=== PATIENT | female | born 1960 | race Caucasian/White ===

== ENCOUNTER 2018-11-21 15:25 | Outpatient (REF) | payer MEDICAID, SELFPAY ==
[2018-11-22 07:42] LABS: Calcium 9.4 mg/dL (8.5-10.1)
[2018-11-22 07:43] LABS: Albumin 3.9 g/dL (3.4-5.0); Alkaline Phosphatase 151 U/L (46-116); BUN 14 mg/dL (7-18); Bilirubin, Total 0.4 mg/dL (0.2-1.0); Estimated GFR 51.38 (mL/min/1.73m2); Glucose 188 mg/dL (70-100); Total Protein 7.6 g/dL (6.4-8.2)
[2018-11-22 07:44] LABS: ALT 40 U/L (12-78); AST 39 U/L (15-37); Anion Gap 7.8 mmol/L (3-11); CO2 30.2 mmol/L (21.0-32.0); Chloride 104 mmol/L (98-107); Potassium 4.5 mmol/L (3.5-5.1); Sodium 142 mmol/L (136-145)
[2018-11-22 07:45] LABS: TSH (W/Ref FT4) 1.58 uIU/mL (0.358-3.74)
[2018-11-22 08:29] LABS: Hemoglobin A1C 7.8 % (4.5-6.2)
== END 2018-11-21 15:45 ==
LOC: NCHCN 15:25
PROVIDERS: PCP Family Medicine; Visit Provider Family Medicine
DX: E11.65 Type 2 diabetes mellitus with hyperglycemia (principal); I10 Essential (primary) hypertension; E03.9 Hypothyroidism, unspecified
CPT/HCPCS: 80053; 83036; 84443

== ENCOUNTER 2019-09-06 21:58 | Outpatient (REF) | payer MEDICAID, SELFPAY ==
[2019-09-06 22:32] LABS: HCT 43.8 % (36.0-46.0); HGB 14.8 g/dL (12.0-15.5); Mean Corp. HGB Concentration 33.8 g/dL (32.0-36.0); Mean Corpuscular Volume 88.7 fL (80-95); Platelet Count 169 x1000/uL (130-400); RBC 4.94 m/cumm (4.00-5.20); RBC Distribution Width 13.6 % (11.7-14.6); White Blood Cell Count 6.77 k/cumm (4.4-10.8)
[2019-09-06 22:57] LABS: BUN 14 mg/dL (7-18); CREATININE 1.04 mg/dL (0.55-1.02); Calcium 9.2 mg/dL (8.5-10.1); Chloride 109 mmol/L (98-107); Estimated GFR 54.62 (mL/min/1.73m2); Glucose 135 mg/dL (74-106); Potassium 4.5 mmol/L (3.5-5.1); Sodium 145 mmol/L (136-145); TSH (W/Ref FT4) 1.12 uIU/mL (0.36-3.74)
== END 2019-09-06 22:18 ==
LOC: NCHCN 21:58
PROVIDERS: PCP Family Medicine; Visit Provider Specialist/Technologist Athletic Trainer
DX: E11.9 Type 2 diabetes mellitus without complications (principal); I10 Essential (primary) hypertension; E03.9 Hypothyroidism, unspecified
CPT/HCPCS: 80048; 85027; 84443

== ENCOUNTER 2020-01-16 08:09 | Outpatient (CLI) | payer MEDICAID, SELFPAY ==
--- NOTE | 2020-01-16 | DI.RAD_ITS ---
EXAM: XR THORACIC SPINE COMPLETE CLINICAL HISTORY: THORACIC BACK PAIN, M54.9. TECHNIQUE: 2D digital imaging was performed. COMPARISON: No exams were available for comparison FINDINGS: BONES: There is no fracture or destructive lesion. The vertebral bodies and posterior elements are un remarkable. DISKS:Prominent endplate osteophytes are seen throughout, eccentric toward the right. There is no si gnificant scoliosis. SOFT TISSUE: Visualized lungs are clear. Heart size appears normal. IMPRESSION: Degenerative disc changes. DATA REPOSITORY: RADIATION DOSE DELIVERED:
--- NOTE | 2020-01-16 | DI.RAD_ITS ---
EXAM: XR SHOULDER LT COMPLETE 2+V INDICATION: LT SHOULDER PAIN, M25.512. COMPARISON: CR RIGHT SHOULDER COMPLETE from 02/14/2013 TECHNIQUE: 2D digital imaging was performed. FINDINGS: Metallic anchors are seen in the humeral head related to previous rotator cuff repair. There is mini mal spurring at the AC joint and undersurface of the acromion. Mild spurring is seen at the glenoid. Humeral head appears normally position. The glenohumeral joint space is well maintained. IMPRESSION: Mild degenerative and postsurgical changes. DATA REPOSITORY: RADIATION DOSE DELIVERED:
== END 2020-01-16 08:29 ==
PROVIDERS: PCP Family Medicine; Visit Provider Family Medicine
DX: M25.512 Pain in left shoulder (principal); M19.012 Primary osteoarthritis, left shoulder; Z98.890 Other specified postprocedural states; M54.6 Pain in thoracic spine; M51.34 Other intervertebral disc degeneration, thoracic region
CPT/HCPCS: 72072; 73030

== ENCOUNTER 2020-03-24 01:05 | Outpatient (CLI) | payer MEDICAID, SELFPAY ==
--- NOTE | 2020-03-24 | DI.RAD_ITS ---
EXAM: XR CERVICAL SPINE COMP 4-5V CLINICAL HISTORY: RADICULOPATHY AFFECTING THE ARM,M54.12 TECHNIQUE: COMPARISON: CR CERV SP.WITH OBL OR FLEX/EXT from 01/07/2014 FINDINGS: Five views were obtained. There is a mild cervical kyphosis. The intervertebral disc spaces appear fairly well maintained with slight loss disc height at C5-6.. There are mild hypertrophic degenerati ve changes of the endplates and facet joints particularly involving the lower cervical region. The n eural foramina appear fairly well maintained as visualized. IMPRESSION: Mild degenerative changes of the cervical spine. No additional significant findings.
== END 2020-03-24 01:25 ==
PROVIDERS: PCP Family Medicine; Visit Provider Family Medicine
DX: M50.122 Cervical disc disorder at C5-C6 level with radiculopathy (principal); M40.202 Unspecified kyphosis, cervical region
CPT/HCPCS: 72050

== ENCOUNTER 2020-12-15 12:01 | Outpatient (REF) | payer MEDICAID, SELFPAY ==
[2020-12-15 16:33] LABS: ALT 35 U/L (14-59); AST 29 U/L (15-37); Albumin 3.9 g/dL (3.4-5.0); Alkaline Phosphatase 149 U/L (46-116); Anion Gap 9.7 mmol/L (3-11); BUN 15 mg/dL (7-18); Bilirubin, Total 0.3 mg/dL (0.2-1.0); CO2 27.3 mmol/L (21.0-32.0); CREATININE 1.2 mg/dL (0.55-1.02); Calcium 8.7 mg/dL (8.5-10.1); Calculated LDL 38 mg/dL (<100); Chloride 108 mmol/L (98-107); Cholesterol 92 mg/dL (<200); Estimated GFR 45.98 (mL/min/1.73m2); Glucose 194 mg/dL (74-106); HDL Cholesterol 36 mg/dL (40-60); Potassium 4.1 mmol/L (3.5-5.1); Sodium 145 mmol/L (136-145); TSH (W/Ref FT4) 1.81 uIU/mL (0.36-3.74); Triglyceride 92 mg/dL (<150)
== END 2020-12-15 12:02 | disposition home or self-care (01) ==
LOC: NCHCN 12:01
PROVIDERS: PCP Family Medicine; Visit Provider Family Medicine
DX: E03.9 Hypothyroidism, unspecified (principal); E11.9 Type 2 diabetes mellitus without complications; I10 Essential (primary) hypertension
CPT/HCPCS: 80053; 80061; 84443

== ENCOUNTER 2021-03-23 16:58 | Outpatient (REF) | payer MEDICAID, SELFPAY ==
[2021-03-23 19:10] LABS: Abs Immature Grans 0.04 10^3/uL (0.0-0.06); Absolute Basophil Count 0.05 10^3/uL (0.0-0.2); Absolute Eosinophil Count 0.28 10^3/uL (0.0-0.7); Absolute Lymphocyte Count 1.35 10^3/uL (1.2-3.4); Absolute Monocyte Count 0.56 10^3/uL (0.1-0.8); Absolute Neutrophil Count 6.92 10^3/uL (1.2-6.7); Basophils % 0.5; HCT 37.4 % (36.0-46.0); HGB 11.5 g/dL (11.2-15.7); Immature Grans % 0.4; Lymphocytes % 14.7; MCHC 30.7 % (32.0-36.0); MCV 87.8 fL (80-95); MPV 10.7 fL (8.0-11.0); Monocytes % 6.1; Neutrophils % 75.3; Nucleated RBC 0 %; Platelet Count 401 10^3/uL (130-400); RBC 4.26 10^6/uL (3.93-5.22); RDW 13.9 % (11.7-14.6); RDW-SD 44.4 fL
[2021-03-23 19:35] LABS: ALT 27 U/L (14-59); AST 30 U/L (15-37); Albumin 3.3 g/dL (3.4-5.0); Alkaline Phosphatase 119 U/L (46-116); Anion Gap 9.8 mmol/L (3-11); BUN 8 mg/dL (7-18); Bilirubin, Total 0.3 mg/dL (0.2-1.0); C-Reactive Protein 1.74 mg/dL (0.0-0.3); CO2 28.2 mmol/L (21.0-32.0); CREATININE 0.9 mg/dL (0.55-1.02); Calcium 9.1 mg/dL (8.5-10.1); Chloride 103 mmol/L (98-107); Glucose 120 mg/dL (74-106); Potassium 3.7 mmol/L (3.5-5.1); Sodium 141 mmol/L (136-145)
[2021-03-23 22:40] LABS: Creatine Kinase 36 U/L (26-192)
== END 2021-03-23 16:59 | disposition home or self-care (01) ==
LOC: LBN 16:58
PROVIDERS: PCP Family Medicine; Visit Provider Family Medicine
DX: A49.01 Methicillin susceptible Staphylococcus aureus infection, unspecified site (principal)
CPT/HCPCS: 80053; 82550; 85025; 86140

== ENCOUNTER 2021-09-10 19:32 | Outpatient (REF) | payer MEDICAID, SELFPAY ==
[2021-09-12 13:26] LABS: COVID-19 RT-PCR UVMMC Result Negative (Negative)
== END 2021-09-10 19:33 | disposition home or self-care (01) ==
LOC: NCHCN 19:32
PROVIDERS: PCP Family Medicine; Visit Provider Family Medicine
DX: Z20.822 Contact with and (suspected) exposure to COVID-19 (principal); R53.83 Other fatigue
CPT/HCPCS: U0003

== ENCOUNTER 2021-10-30 18:30 | Outpatient (REF) | payer MEDICAID, SELFPAY ==
[2021-10-30 18:55] LABS: HCT 39.8 % (36.0-46.0); HGB 12.7 g/dL (11.2-15.7)
[2021-10-30 19:18] LABS: Hemoglobin A1C 6.9 % (<5.7); TSH (W/Ref FT4) 1.98 uIU/mL (0.36-3.74)
== END 2021-10-30 18:31 | disposition home or self-care (01) ==
LOC: NCHCN 18:30
PROVIDERS: PCP Family Medicine; Visit Provider Family Medicine
DX: E11.9 Type 2 diabetes mellitus without complications (principal); I10 Essential (primary) hypertension; Z00.00 Encounter for general adult medical examination without abnormal findings
CPT/HCPCS: 83036; 84443; 85014; 85018

== ENCOUNTER 2021-11-04 18:23 | Outpatient (REF) | payer MEDICAID, SELFPAY ==
[2021-11-04 22:24] LABS: ALT 27 U/L (14-59); AST 24 U/L (15-37); Alkaline Phosphatase 151 U/L (46-116); Anion Gap 7.2 mmol/L (3-11); BUN 15 mg/dL (7-18); Bilirubin, Total 0.3 mg/dL (0.2-1.0); C-Reactive Protein 0.39 mg/dL (0.0-0.3); CO2 27.8 mmol/L (21.0-32.0); CREATININE 1.2 mg/dL (0.55-1.02); Calcium 8.8 mg/dL (8.5-10.1); Chloride 108 mmol/L (98-107); Estimated GFR 45.98 (mL/min/1.73m2); Glucose 101 mg/dL (74-106); Potassium 4.9 mmol/L (3.5-5.1); Sodium 143 mmol/L (136-145); Total Protein 7.4 g/dL (6.4-8.2)
[2021-11-05 17:45] LABS: Rheumatoid Factor <8.6 IU/mL (<12.0)
[2021-11-06 13:40] LABS: ANA Interpretation Positive (Negative); ANA Titer Pattern 1:160 Nucleolar
== END 2021-11-04 18:24 | disposition home or self-care (01) ==
LOC: NCHCN 18:23
PROVIDERS: PCP Family Medicine; Visit Provider Family Medicine
DX: I10 Essential (primary) hypertension (principal); E11.9 Type 2 diabetes mellitus without complications; M19.09 Primary osteoarthritis, other specified site
CPT/HCPCS: 80053; 86038; 86140; 86431

== ENCOUNTER 2021-11-06 00:34 | Outpatient (CLI) | payer MEDICAID, SELFPAY ==
--- NOTE | 2021-11-06 | DI.DEXA_ITS ---
Exam(s) XR DEXA BONE DENSITY W/WO YESENIA EXAM: XR DEXA BONE DENSITY W/WO YESENIA CLINICAL HISTORY: SCREENING FOR OSTEOPOROSIS IN POSTMENOPAUSAL WOMAN,Z78.0 TECHNIQUE: COMPARISON: No exams were available for comparison FINDINGS: DEXA scan was performed according to the usual protocol. Please see the accompanying data sheets. Findings for left hip scanning are T-score -2.5 with left femoral neck T-score -2.5. Findings for lumbar spine scanning are T-score -1.3. IMPRESSION: Measurements are consistent with osteoporosis according to the WHO criteria. The lateral vertebral s canogram shows no evidence of a vertebral compression fracture. RADIATION DOSE DELIVERED: Total DLP
== END 2021-11-06 00:54 ==
PROVIDERS: PCP Family Medicine; Visit Provider Family Medicine
DX: Z13.820 Encounter for screening for osteoporosis (principal); Z78.0 Asymptomatic menopausal state; M81.0 Age-related osteoporosis without current pathological fracture
CPT/HCPCS: 77080

== ENCOUNTER 2021-12-04 13:05 | Outpatient (REF) | payer MEDICAID, SELFPAY ==
[2021-12-08 14:28] LABS: dsDNA Ab, IgG <12.3 IU/mL (<30.0)
[2021-12-08 15:43] LABS: RNP Ab, IgG 1.9 Units (<20.0); SS-A Antibody 2.4 Units (<20.0); SS-B (La) Ab, IgG 0.9 Units (<20.0); Sm (Smith) Ab, IgG 2.5 Units (<20.0)
== END 2021-12-04 13:06 | disposition home or self-care (01) ==
LOC: NCHCN 13:05
PROVIDERS: PCP Family Medicine; Visit Provider Family Medicine
DX: R79.89 Other specified abnormal findings of blood chemistry (principal)
CPT/HCPCS: 86225; 86235

== ENCOUNTER → 2022-05-06 02:20 | Outpatient (CLI) | payer OTHER, MEDICAID, SELFPAY ==
--- NOTE | 2022-05-06 | DI.US_ITS ---
Exam(s) US SOFT TISSUE EXTREMITY EXAM: US SOFT TISSUE EXTREMITY CLINICAL HISTORY: RT KNEE PAIN, ? BAKERS CYST. TECHNIQUE: Ultrasound was performed using standard protocol. COMPARISON: No exams were available for comparison FINDINGS: Sonographic assessment utilizing grayscale and color Doppler imaging was performed and targeted to th e area of clinical concern. There is a tiny 1.4 x 1.4 x 0.8 cm popliteal cyst. IMPRESSION: DATA REPOSITORY:
== END ==
PROVIDERS: PCP Family Medicine; Visit Provider Physician Assistant Medical
DX: M25.561 Pain in right knee (principal)
CPT/HCPCS: 76881

== ENCOUNTER 2022-08-12 11:24 | Outpatient (REF) | payer OTHER, MEDICAID, SELFPAY ==
[2022-08-12 15:53] LABS: HCT 42.9 % (36.0-46.0); MCH 29.4 pg (27.0-33.0); MCHC 32.6 % (32.0-36.0); MCV 90 fL (80-95); MPV 10.8 fL (8.0-11.0); Platelet Count 141 10^3/uL (130-400); RBC 4.77 10^6/uL (3.93-5.22); RDW 14.3 % (11.7-14.6); RDW-SD 46.9 fL; WBC 6.71 10^3/uL (4.4-10.8)
[2022-08-12 16:14] LABS: ALT 33 U/L (14-59); AST 39 U/L (15-37); Albumin 3.8 g/dL (3.4-5.0); Alkaline Phosphatase 102 U/L (46-116); Anion Gap 7.9 mmol/L (3-11); BUN 14 mg/dL (7-18); Bilirubin, Total 0.2 mg/dL (0.2-1.0); CO2 25.1 mmol/L (21.0-32.0); CREATININE 1.2 mg/dL (0.55-1.02); Chloride 108 mmol/L (98-107); Estimated GFR 51.82 (mL/min/1.73m2); Glucose 133 mg/dL (74-106); Potassium 4.2 mmol/L (3.5-5.1); Sodium 141 mmol/L (136-145); Total Protein 7.3 g/dL (6.4-8.2)
== END 2022-08-12 11:25 | disposition home or self-care (01) ==
LOC: NCHCN 11:24
PROVIDERS: PCP Family Medicine; Visit Provider Family Medicine
DX: E11.9 Type 2 diabetes mellitus without complications (principal); F32.9 Major depressive disorder, single episode, unspecified
CPT/HCPCS: 80053; 85027; 84443

== ENCOUNTER 2024-01-03 15:16 | Outpatient (REF) | payer MEDICARE, MEDICAID, SELFPAY ==
[2024-01-03 16:13] LABS: Hemoglobin A1C 10.9 % (<5.7)
[2024-01-03 16:45] LABS: ALT 41 U/L (14-59); AST 32 U/L (15-37); Albumin 3.7 g/dL (3.4-5.0); Alkaline Phosphatase 122 U/L (46-116); BUN 16 mg/dL (7-18); Bilirubin, Total 0.6 mg/dL (0.2-1.0); CREATININE 0.9 mg/dL (0.55-1.02); Chloride 104 mmol/L (98-107); Estimated GFR 72.28 (mL/min/1.73m2); Glucose 355 mg/dL (74-106); Potassium 3.9 mmol/L (3.5-5.1); Sodium 140 mmol/L (136-145); TSH 4.28 uIU/Ml (0.36-3.74); Total Protein 7.1 g/dL (6.4-8.2)
== END 2024-01-03 15:17 | disposition home or self-care (01) ==
LOC: NCHCN 15:16
PROVIDERS: PCP Family Medicine; Visit Provider Family Medicine
DX: E11.9 Type 2 diabetes mellitus without complications (principal); I10 Essential (primary) hypertension; E03.9 Hypothyroidism, unspecified
CPT/HCPCS: 80053; 83036; 84443

== ENCOUNTER 2024-05-31 17:30 | Outpatient (REF) | payer MEDICARE, MEDICAID, SELFPAY ==
--- OUTSIDE RECORDS SUMMARY | 2024-05-31 17:41 | XMS_ITS | Encounter Summary ---
Author Organization [facility] [place] [address] Care Team Providers Care Colorectal Surgeon Name Role Phone Maryuri Evans MD Primary Care Provider [phone] Encounter Details Date Type Department Care Team (Latest Contact Info) Description 11/04/2022 Travel Social History Tobacco Use Types Packs/Day Years Used Date Smoking Tobacco: Never Smokeless Tobacco: Never Alcohol Use Standard Drinks/Week Comments Yes 0 (1 standard drink = 0.6 oz pur e alcohol) social, twice a year Sex and Gender Information Value Date Recorded Sex Assigned at Not on file Gender Identity Not on file Sexual Orientation Not on file documented as of this encounter Plan of Treatment Not on file documented as of this encounter Visit Diagnoses Not on filedocumented in this encounter Care Teams Colorectal Surgeon Relationship Specialty Start Date End Date Maryuri Evans MD [address] [place] [address] PCP - General 09/23/14 documented as of this encounter
--- OUTSIDE RECORDS SUMMARY | 2024-05-31 17:41 | XMS_ITS | Clinical Summary ---
Author Organization [facility] [place] [address] Care Team Providers Care Hand Paint Mixer Name Role Phone Maryuri Evans MD Primary Care Provider [phone] Allergies Active Allergy Reactions Criticality Noted Date Comments Adhesive Rash Low 09/28/2017 Skin Rash Erythromycin Lactobionate Nausea Only High 09/28/2017 Latex Rash Low 09/28/2017 Lisinopril Other (See Comments) Low 09/28/2017 Cough. Metformin Nausea Only High 09/23/2014 Pollen Extracts Other (See Comments) Medium 09/28/2017 Rhinusitus Red Blood Cells Other (See Comments) High 02/09/2021 Antibodies-Difficul t to Crossmatch DO NOT REMOVE Please contact the Blood Bank at [phone] for questions. Trazodone Other (See Comments) Medium 09/23/2014 Hallucination Medications Medication Sig Dispensed Refills Start Date End Date Status glipiZIDE (GLUCOTROL XL) 10 mg Tablet Extended Rel 24 hr TAKE TWO TABLETS BY MOUTH EVERY DAY 3 07/21/2017 Active topiramate (TOPAMAX) 100 mg Tablet TAKE ONE TABLET BY MOUTH TWICE A DAY 3 07/21/2017 Active levothyroxine (SYNTHROID) 50 mcg Tablet Take 50 mcg by mouth nightly. 2017 Active multivitamin (THERAGRAN) Tablet Take 1 tablet by mouth daily. Active calcium carbonate (CALCIUM 500 ORAL) Take by mouth. Active Elizabeth Pen Needle 32 gauge x 32 Needle USE 1 PEN NEEDLE ONCE DAILY AT BEDTIME 10/25/2019 Active hydrOXYzine (VISTARIL) 50 mg Capsule TAKE ONE CAPSULE BY MOUTH TWICE A DAY 01/25/2020 Active folic acid (Folvite) 1 mg Tablet Take by mouth. 08/31/2017 Active gabapentin (Neurontin) 300 mg Capsule TAKE ONE CAPSULE BY MOUTH THREE TIMES A DAY 09/01/2020 Active OneTouch Ultra Blue Test Strip Strip TEST THREE TIMES A DAY 11/30/2020 Ac tive OneTouch Ultra2 Meter Misc TEST DIRECTED 11/29/2020 Active OneTouch Delica Plus Lancet 30 gauge Misc TEST THREE TIMES A DAY 11/28/2020 Ac tive Victoza 2-Terrance 0.6 mg/0.1 mL (18 mg/3 mL) Pen Injector Inject 1.2 mg subcutaneously every morning. 11/29/2020 Active acetaminophen (Tylenol) 500 mg Tablet Take 2 tablets by mouth every 8 hours. 180 tablet 02/18/2021 Active Lantus Solostar U-100 Insulin pen Inject 20 Units subcutaneously nightly. 1 vial 3 02/18/2021 Active Additional Information Patient taking differently: 25 UnitsSubcutaneous NIGHTLY, Reported on 11/04/2022 cyclobenzaprine (Flexeril) 5 mg Tablet Three times daily as needed for muscle spasms 30 tablet 02/18/2021 Active aspirin EC 81 mg Tablet, Delayed Release (E.C.) Take 1 tablet by mouth every 12 hours. Take every 12 hours for 4 weeks 60 tablet 11/09/2021 Active Additional Information Patient taking differently:81 mg OralDAILY, (No instructions reported), Reported on 11/04/2022 cholecalciferol, Vitamin D3, 50 mcg (2,000 unit) Tablet Take 2,000 Units by mouth daily. 10/31/2021 Active alendronate (Fosamax) 70 mg tablet TAKE 1 TABLET ORALLY ONCE A WEEK ON EMPTY STOMACH FULL GLASS WATER UPRIGHT 30 MINUTES 09/01/[address] (Cymbalta) [address] capsule Take 30 mg by mouth 2 times daily. 10/25/2022 Active losartan (Cozaar) 25 mg tablet Take 25 mg by mouth daily. 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 Dr. Correa. DOS: 11/09/2021. 02/10/2022 S/P Left ankle I&D for absce ss and wound dehiscence, 02/08/21 (Dr Quiñones) and 02/10/21 (Dr De La Cruz); 02/12 + 02/14 ( Dr. Capellan) 02/07/2021 H/O insulin dependent diabetes mellitus 01/03/20 H/O: depression 01/02/2021 Hypothyroidism 01/02/2021 h/o chronic headaches 01/02/2021 Closed fracture of shaft of right ulna with known elbow arthrodesis RIGHT 01/02/2021 S/P R elbow fusion on 12/14/17 Correa 2017 Psoriasis 09/23/2014 Resolved Problems Problem Noted Date Diagnosed Date Resolved Date Surgery follow-up 05/26/2021 02/10/2022 Ankle wound, left, sequela 03/04/2021 0 02/10/2022 Closed fracture of left ankl e with routine healing 01/13/2021 02/10/2022 Chronic pain in left shoulder 03/06/2020 02/10/2022 Immunizations Name Administration Dates Next Due Influenza Vaccine, Whole 06/16/2008 Family History Medical History Relation Comments Diabetes Father Heart Disease Father Diabetes Maternal Grandmother Pancreatic Cancer Maternal Grandmother Chronic Obstructive Pulmonary Disease Mother Diabetes Mother Emphysema Mother Relation Status Comments Father Alive Maternal Grandfather Maternal Grandmother Mother Alive Paternal Grandfather Paternal Grandmother Social History Tobacco Use Types Packs/Day Years Used Date Smoking Tobacco: Never Smokeless Tobacco: Never Alcohol Use Standard Drinks/Week Comments Yes 0 (1 standard drink = 0.6 oz pur e alcohol) social, twice a year Sex and Gender Information Value Date Recorded Sex Assigned at Not on file Gender Identity Not on file Sexual Orientation Not on file Last Filed Vital Signs Vital Sign Reading Time Taken Comments Blood Pressure 123/60 05/05/2022 1:13 PM EDT Pulse 80 05/05/2022 1:13 PM EDT Temperature 36.1 ??C (97 ??F) 11/09/2021 5:18 PM EDT Respiratory Rate 16 12/30/2021 1:19 PM EDT Oxygen Saturation 97% 11/09/2021 6:00 PM EDT Inhaled Oxygen Concentration - - Weight 83 kg (183 lb) 11/04/2022 1:35 PM EDT Height 154.9 cm (5' 1) 11/04/2022 1:35 PM EDT Body Mass Index 34.58 11/04/2022 1:35 PM EDT Plan of Treatment Health Maintenance Due Date Last Done Comments CT Colonography 1961 Colonoscopy 1961 Colorectal Cancer Screening 1961 FIT DNA 1961 FIT 1961 Sigmoidoscopy (10 year) with FIT yearly 1961 Sigmoidoscopy 1961 HIV screen 12/15/1979 Hepatitis C Screening 12/15/1979 Lipid Screening 12/15/1979 Tetanus/Diphtheria/Pertussis Vaccines (1 - Tdap) 1980 HPV test 12/15/1991 PAP Smear 12/15/1991 Breast Cancer Share Decision Needed 2001 Breast Cancer screening 2001 Zoster vaccine (1 of 2) 12/15/2011 Advance Directive 2016 Diabetes Screening (HgbA1C o r Glucose) 03/17/2024 03/17/2021, 03/16/2021, 03/15/2021, Additional history exists Covid-19 Vaccine (1 - 2022-2 4 season) 2024 Influenza (Flu) vaccine (1 o f 1 - Influenza standard series) 04/22/2024 06/16/2008 Medical Devices Implanted Type Area Cocktail Waitress Device Identifier Shelf Expiration Date Model / Serial / Lot Graft,Infuse,Bn,L g,Ii,8ml ([id number]) - [id number] Implanted:Qty: 1 on 2017 by Christopher Correa MD at [facility] IMPLANTS Right: Elbow Medtronic - Sofamor Danek - [id number] 12/20/2018 [id number] / / [id number] Screw,Crtx,Stap,4 .5x20mm ([id number]) - [id number] Implanted:Qty: 2 on 2017 by Christopher Correa MD at [facility] IMPLANTS Right: Elbow DO NOT USE SYNTHES - [id number] 214.820 / / Screw,Crtx,Stap,4 .5x22mm ([id number]) - [id number] Implanted:Qty: 3 on 2017 by Christopher Correa MD at [facility] IMPLANTS Right: Elbow DO NOT USE SYNTHES - [id number] 214.822 / / Screw,Crtx,Stap,4 .5x24mm ([id number]) - [id number] Implanted:Qty: 1 on 2017 by Christopher Correa MD at [facility] IMPLANTS Right: Elbow DO NOT USE SYNTHES - [id number] 214.824 / / Plate,Lcp,Nrw,10h ,4.9p099ef ([id number]) - [id number] Implanted:Qty: 1 on 2017 by Christopher Correa MD at [facility] IMPLANTS Right: Elbow DO NOT USE SYNTHES - [id number] 224.601 / / Parcel Post Officer Microvascular 2.5mm 2 Ended Red Benzie ([id number]) - [id number] Implanted:Qty: 1 on 03/13/2021 by Aydee Franklin MD at [facility] IMPLANTS Left: Leg RAUSCH [employer] - [facility] [id number] / / [id number] Ring Microvascular 2mm Anastomotic Non Absorbable Ss Benzie ([id number]) - [id number] Implanted:Qty: 1 on 03/13/2021 by Aydee Franklin MD at [facility] IMPLANTS Left: Leg [employer] - RAUSCH [facility] 01/01/2025 [id number] / / [id number] Kit Graft Bone Sponge 2.8cc Bmp Syringe Sm Granules Infuse ([id number]) (Autoreq) - [id number] Implanted:Qty: 1 on 11/09/2021 by Christopher Correa MD at [facility] IMPLANTS Right: Arm [employer] - [employer] [id number] / / Plate 2.7x94mm 10 Hole Comp Lck Ss Lcp ([id number]) (Autoreq) - [id number] Implanted:Qty: 1 on 11/09/2021 by Christopher Correa MD at [facility] IMPLANTS Right: Arm [place] - ReadOz GALDINO 247.374 / / Screw 2.7x16mm Lck Ss Lcp ([id number]) (Autoreq) - [id number] Implanted:Qty: 2 on 11/09/2021 by Christopher Correa MD at [facility] IMPLANTS Right: Arm [place] - [employer] GALDINO 202.216 / / Screw 2.7x18mm Lck Ss Lcp ([id number]) (Autoreq) - [id number] Implanted:Qty: 2 on 11/09/2021 by Christopher Correa MD at [facility] IMPLANTS Right: Jan Zyncd GALDINO 202.218 / / Screw 2.7x16mm Mansoor Ss Lcp ([id number]) (Autoreq) - [id number] Implanted:Qty: 2 on 11/09/2021 by Christopher Correa MD at [facility] IMPLANTS Right: [facility] Zyncd GALDINO 202.876 / / Screw 2.7x18mm Mansoor Ss Lcp ([id number]) (Autoreq) - [id number] Implanted:Qty: 1 on 11/09/2021 by Christopher Correa MD at [facility] IMPLANTS Right: [facility] Zyncd GALDINO 202.878 / / Readigraft Implanted:Qty: 1 on 11/09/2021 by Christopher Correa MD at [facility] IMPLANTS Right: [facility] 09/25/2025 [id number] / [id number] / Explanted Type Area Cocktail Waitress Device Identifier Shelf Expiration Date Model / Serial / Lot Screw,Crtx,St ap,4.5x18mm ([id number]) - [id number] Implanted:Qty : 2 on 2017 by Christopher Correa MD at [facility] Explanted:Qty : 2 on 11/09/2021 at [facility] IMPLANTS Right: Elbow DO NOT USE SYNTHES - [id number] 214.818 / / Procedures Procedure Name Priority Date/Time Associated Diagnosis Comments BASIC METABOLIC PANEL Routine 03/17/2021 2:40 AM EDT from Last 3 Months or Most Recently Relevant to Health Maintenance Results * (ABNORMAL) Basic Metabolic Panel (non-fasting) (03/17/2021 2:40 AM EDT) Glucose 154 65 - 199 mg/dL [facility] Comment:Diabetes: >=200 mg/d L plus symptoms Blood Urea Nitrogen 11 8 - 18 mg/dL [facility] Creatinine 0.68(L) 0.70 - 1.20 mg/dL [facility] Sodium 141 135 - 145 mmol/L [facility] Potassium 3.9 3.5 - 5.0 mmol/L [facility] Comment: Please note: ??Patients with WBC >100,000 may have falsely elevated Potassium levels. ??For accurate Potassium quantification in these patients send serum separator tube (gold top) for subsequent determinations. ??Contact the Clinical Chemistry Laboratory if there are any questions. Chloride 106 98 - 107 mmol/L [facility] Carbon Dioxide 26 22 - 31 mmol/L [facility] Anion Gap 9 5 - 15 mmol/L [facility] Calcium 8.5 8.5 - 10.5 mg/dL [facility] Est Glomerular Filtration Rate 96 >=60 mL/min/1. 73 m?? [facility] Comment: This patient? s estimated glomerular filtration rate (eGFR) is between 96 mL/min/1.73 m2 (patients with less muscle mass) and 111 mL/min/1.73 m2 (patients with more muscle mass) as determined by the CKD-EPI equation. Assessment of eGFR is not appropriate when creatinine concentrations are rapidly changing. For clinical decisions where creatinine clearance will affect therapy, a 24-hour urine creatinine clearance may be advised. Assignment of CKD stage 1 - 5 for patients with an eGFR near the transition point between stages may be based on clinical assessment of muscle mass and symptoms in addition to eGFR. Blood 03/17/2021 2:40 AM EDT 03/17/2021 2:42 AM EDT Narrative Resulting Agency Comment Spec In Lab Aydee Franklin MD CHEMISTRY ORDERABLES [facility] [place] [address] from Last 3 Months or Most Recently Relevant to Health Maintenance Advance Directives * Attempt Cardiopulmonary Resuscitation - Inpatient (Latest Code Status on File) Date Activated Date Inactivated Comments 03/13/2021 4:28 PM 03/17/2021 7:02 PM Question Answer Comments Code Status decision made by: Patient * Full Code Date Activated Date Inactivated Comments 02/18/2021 6:01 PM 03/13/2021 6:59 AM Question Answer Comments Does patient have capacity to make decision: Yes * Attempt Cardiopulmonary Resuscitation - Inpatient Date Activated Date Inactivated Comments 02/07/2021 8:01 PM 02/18/2021 6:01 PM Question Answer Comments Code Status decision made by: Patient * Full Code Date Activated Date Inactivated Comments 2017 6:37 AM 2017 5:49 PM Question Answer Comments Does patient have capacity to make decision: Yes Care Teams Hand Paint Mixer Relationship Specialty Start Date End Date Maryuri Evans MD [address] [place] [address] PCP - General 09/23/14
--- OUTSIDE RECORDS SUMMARY | 2024-05-31 17:41 | XMS_ITS | Encounter Summary ---
Author Organization [place] [address] Care Team Providers Care Ways Operator Name Role Phone Maryuri Evans MD Primary Care Provider [phone] Encounter Details Date Type Department Care Team (Latest Contact Info) Description 09/09/2022 Travel Social History Tobacco Use Types Packs/Day [...] on filedocumented in this encounter Care Teams Ways Operator Relationship Specialty Start Date End Date Maryuri Evans MD [address] [place] [address] PCP - General 09/23/14 documented as of this encounter
--- OUTSIDE RECORDS SUMMARY | 2024-05-31 17:41 | XMS_ITS | Encounter Summary ---
Author Organization [facility] [place] [address] Care Team Providers Care Automobile Accessories Installer Name Role Phone Maryuri Evans MD Primary Care Provider [phone] Reason for Visit * Diagnostic Test (Routine) - Closed Specialty Diagnoses / Procedures Referred By Contac t Referred To Contact Neurology Diagnoses Ulnar neuritis, right Dorina Campbell APRN [facility] [place] [address] [facility] [address] [place] [address] Referral ID Status Reason Start Date Expiration Date V isits Requested Visits Authorized [id number] Closed Test Only 02/10/2022 02/10/2023 1 1 Encounter Details Date Type Department Care Team (Latest Contact Info) Description 09/09/2022 1:00 PM EST [place] [address] Twin Vick MD [facility] [place] [address] H/O elbow surgery, 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 Dr. Correa. DOS: 11/09/2021. ; Dislocation of right elbow, subsequent encounter Social History Tobacco Use Types Packs/Day Years Used Date Smoking Tobacco: Never Smokeless Tobacco: Never Alcohol Use Standard Drinks/Week Comments Yes 0 (1 standard drink = 0.6 oz pur e alcohol) social, twice a year Sex and Gender Information Value Date Recorded Sex Assigned at Not on file Gender Identity Not on file Sexual Orientation Not on file documented as of this encounter Progress Notes * Twin Vick MD - 09/09/2022 1:00 PM EST Jesenia Méndez referred for EDX studies by Dorina Campbell APRN [facility] [address] [place] [address] to look for evidence of right ulnar neuropathy. Report scanned into ED. The results are c/w a right ulnar neuropathy at there elbow. Mild median nerve compression at the wrists. * Sheng Vidales MD - 09/09/2022 1:00 PM EST Jesenia Méndez is a patient of Maryuri Evans MD referred by Dorina Campbell APRN for electrodiagnostic studies for Rt upper extremity to look for evidence of cubital tunnel syndrome . The complete findings will be reported elsewhere (see scanned documents). Briefly, patient reports numbness and tingling in the right hand mentions happened since the procedure. Primarily involved last 2 fingers but mentions thumb is also involved at times. Mentions the last 4th finger is doing a little better and now its mostly the last finger. Mentions sx exacerbate attimes but doesn't know triggers. On exam, she has good strength on the ADM and APB, and limited movement at the elbow and shoulder. On sensory she reports mildly decreased senastion on thenar eminence but normal on hypothenar. On NCS EMG, there is slowing of the ulnar motor velocity across the elbow and low sensory amplitudeand velocity compared to the left side. Median sensory amplitude is mildly reduced on the right with normal motor responses. On needle emg there is presence of active and chronic neurogenic changes on the FDI but normal on ABP and FCU. The above findings are suggestive of ulnar neuropathy at the right likely at the level of elbow. Additionally there is presence of mild R>L median neuropathy bilaterally. 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 Dr. Correa. DOS: 11/09/2021. Personal history of surgery to other organs Dislocation of right elbow, subsequent encounter documented in this encounter Care Teams Automobile Accessories Installer Relationship Specialty Start Date End Date Maryuri Evans MD [address] [place] [id number] PCP - General 09/23/14 documented as of this encounter
--- OUTSIDE RECORDS SUMMARY | 2024-05-31 17:41 | XMS_ITS | Encounter Summary ---
[facility] [place] [address] Care Team Providers Care Seasonal Delivery Driver Name Role Phone Maryuri Evans MD Primary Care Provider [phone] Reason for Referral * Occupational Therapy (Routine) - Closed Specialty Diagnoses / Procedures Referred By Conthyun t Referred To Contact Occupational Therapy Diagnoses Ulnar neuritis, right Dorina Campbell APRN [facility] [place] [address] Referral ID Status Reason Start Date Expiration Date V isits Requested Visits Authorized [id number] Closed Evaluate and Treat 05/05/2022 11/01/2022 12 12 Reason for Visit * Reason Comments Right Elbow Fracture Encounter Details Date Type Department Care Team (Late st Contact Info) Description 05/05/2022 1:40 PM EDT Office [place] [phone] Dorina Campbell HUMAN CAPITAL ANALYST [facility] [place] [address] Ulnar neuritis, right (Primary Dx); Closed fracture of shaft of right ulna with routine healing, unspecified fracture morphology, subsequent encounter Social History Tobacco Use Types [...] on file documented as of this encounter Last Filed Vital Signs Vital Sign Reading Time Taken Comments Blood Pressure 123/60 05/05/2022 1:13 PM EDT Pulse 80 05/05/2022 1:13 PM EDT Temperature - - Respiratory Rate - - Oxygen Saturation - - Inhaled Oxygen Concentration - - Weight 78.9 kg (174 lb) 05/05/2022 1:13 PM EDT Height 154.9 cm (5' 1) 05/05/2022 1:13 PM EDT Body Mass Index 32.88 05/05/2022 1:13 PM EDT documented in this encounter Progress Notes * Dorina Campbell, HUMAN CAPITAL ANALYST - 05/05/2022 1:40 PM EDT Surgical Date: 11/09/2021 ?? Surgeon: * Christopher Correa MD - ?? Procedure(s) : REPAIR NONUNION OR MALUNION, RADIUS OR ULNA ,W/ AUTOGRAFT (Right) MODIFIER LARGE FRAGMENT SYSTEM SYNTHES (Right) MODIFIER LOCKING SMALL FRAGMENT SYNTHES (Right) REMOVAL OF IMPLANT, DEEP, FOREARM (Right) ?? CHIEF COMPLAINT: 6 months S/P above procedure HISTORY OF PRESENT ILLNESS: Ms. Méndez a 61 y.o. year old female comes into clinic today for appointment ~ 6 months s/p the above procedures. Jesenia is doing well at 6 months post op above surgical procedure for pain. Yet, The ulnar nerve symptoms have persisted. She has not been able to make her neurology consult appointment yet (missed calls) and no formal OT for nerve glides. The HEELBO did nothing. Reports problems with right posterior knee pain. Seeing PCP with duplex US ordered for tomorrow. Patient's medications, allergies, past medical, surgical, social and family histories were reviewedand updated as appropriate. ROS: Denies fever, chills, nausea, vomiting, vision change, shortness of breath, chest pain, visionchanges, headaches, bowel or bladder problem, ear, nose, sinus problem, neuro or psychiatric, or endocrine disorder not addressed above. PHYSICAL EXAMINATION: Vitals: 05/05/22 1313 BP: 123/60 Pulse: 80 Weight: 78.9 kg (174 lb) Height: 154.9 cm (5' 1) Body mass index is 32.88 kg/m??. 61 year old Female in NAD. Non-toxic appearing. Right elbow and forearm exam: Wound Inspection: Surgical incision is well healed no asael-incisional erythema or evidence of infection. Neuro: No change in + tinel's at the ulnar groove of the elbow that reproduces tingling in the 4/5 finger. + motor intact in the hand with 5/5 wrist extension, interosseous and intrinsics intact, thumb opposes to the 5th finger. Mild atrophy of the hypothenar eminence of the hand. Axillary (sensoryand motor intact), antebrachial cutaneous intact, Radial, ulna + tinel's and tingling in the 4/5 fingers, median nerve neuro-motor intact. ROM: The elbow is fused with no active/or passive ROM. There is no pain at the proximal ulna Skin is warm, dry and well perfused. Distal radius pulse 2+. Capillary refill is brisk. The forearm compartments are soft. No pain with passive ROM of the hand or wrist. No skin color changes and no diaphoresis. 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 ASSESSMENT: 61 year old Female who is now 6 months status post op for above surgical procedure. Jesenia is doing well post op in regards to the repair of the fracture non-union. No appreciable pain at the fracture site. No hardware complications. + incorporating bone graft. The is not change in the numbing pain and paraesthesias of the 4/5 ulnar nerve distribution with no motor weakness. PLAN: I reviewed my findings in the office today with both x-rays and clinical exam. At this time, I once again recommend obtaining a neurology consult to assess for ulnar nerve compression. I am going to have our secretarial staff try and help Jesenia schedule her appointment as Neurology as been trying to contact her for an appointment for any EMG/NCS. I also recommend seeing an OT for nerve glides. HEELBO not very helpful for ulnar nerve symptoms. We will plan on seeing Jesenia in about 6 monthswith x-rays. I have already ordered this as a future order in the computer. F/u as above with x-rays I have already ordered this as a future order in the computer. Sooner prn. documented in this encounter Plan of Treatment Scheduled Referrals Name Type Priority Associated Diagnoses Order Schedule Referral to Occupational Therapy Outpatient Referral Routine Ulnar neuritis, right Ordered: 05/05/2022 documented as of this encounter Results * XR Forearm Right (Generic) (11/04/2022 12:50 PM EDT) Anatomical Region Laterality Modality Forearm Right Digital Radiogra phy Impressions 11/04/2022 2:19 PM EDT Stable exam. No hardware complication. Thank you for letting us participate in the care of this patient. ??If you are a health care provider and have any questions regarding this report, please contact the number below. ??For patients who have questions please contact the health transition of care specialist that requested your imaging first. ? Electronically signed by: KENDRA RENEE MD, [facility] ([phone]), at 11/04/2022 2:19 PM Narrative 11/04/2022 2:19 PM EDT EXAMINATION: XR FOREARM RIGHT (GENERIC) CLINICAL HISTORY: proximal ulna fracture revision ORIF ? healing ? change in ORIF TECHNIQUE: 2 views RIGHT forearm COMPARISON: Forearm radiograph 05/05/2022 FINDINGS: Status post elbow arthrodesis and proximal ulnar plate and screw fixation. Hardware is intact and in stable positioning. Ulnar fracture lines are not visualized, with the region partially obscured by the hardware. Alignment is stable. No new fracture identified. Bones are diffusely demineralized. Soft tissues are unremarkable. Procedure Note Kendra Renee MD - 11/04/2022 EXAMINATION: XR FOREARM RIGHT (GENERIC) CLINICAL HISTORY: proximal ulna fracture revision ORIF ? healing ? change in ORIF TECHNIQUE: 2 views RIGHT forearm COMPARISON: Forearm radiograph 05/05/2022 FINDINGS: Status post elbow arthrodesis and proximal ulnar plate and screwfixation. Hardware is intact and in stable positioning. Ulnar fracture lines arenot visualized, with the region partially obscured by the hardware. Alignmentis stable. No new fracture identified. Bones are diffusely demineralized.Soft tissues are unremarkable. IMPRESSION Stable exam. No hardware complication. Thank you for letting us participate in the care of this patient. If youare a health care provider and have any questions regarding this report,please contact the number below. For patients who have questions please contactthe health transition of care specialist that requested your imaging first. Electronically signed by: KENDRA RENEE MD, [facility]([phone]), at 11/04/2022 2:19 PM Dorina Campbell HUMAN CAPITAL ANALYST IMG DX ORDERABLES documented in this encounter Visit Diagnoses Diagnosis Ulnar neuritis, right- Primary Closed fracture of shaft of right ulna with routine healing, unspecified fracture morphology, subsequent encounter Closed fracture of shaft of right ulna with routine healing, unspecified fracture morphology, subsequent encounter documented in this encounter Care Teams Seasonal Delivery Driver Relationship Specialty Start Date End Date Maryuri Evans MD [address] [place] [address] PCP - General 09/23/14 documented as of this encounter
--- OUTSIDE RECORDS SUMMARY | 2024-05-31 17:41 | XMS_ITS | Encounter Summary ---
Author Organization [facility] Address [facility] [place] [address] Care Team Providers Care Hall Supervisor Name Role Phone Maryuri Evans MD Primary Care Provider [phone] Encounter Details Date Type Department Care Team (Late st Contact Info) Description 09/09/2022 Notes [place] [address] Sabrina Capellan MD [facility] [place] [address] Social History Tobacco Use Types Packs/Day Years [...] as of this encounter Progress Notes * Cecilia Meehan LPN - 09/09/2022 3:20 PM EST Jesenia arrived to clinic today without an appointment due to an injury to her left ankle that has previously had surgery by Dr. Capellan. Jesenia states that she was in her driveway on the ice and had slipped and twisted her ankle catching her toes yesterday. She states there is some swelling that has not resolved. She is currently taking ibuprofen and Tylenol, alternating, as well as icing and elevating her leg above the level of her heart. Jesenia's ankle was slightly swollen, with 1+ edema. I did encourage Jesenia to use some compressive wrap, continue to ice and elevate, and to continue her previous medication regimen that she had started. I did encourage Jesenia to see her PCP or be evaluated at an urgent care. I did let her know that if there was an injury, I would like her to receive treatment for that and we would be happy to follow-up if there is an orthopedic injury. Reviewed case with Gracie Gamez PA-C. Jesenia had no further questions at this time and stated she would seek treatmentas we had discussed. documented in this encounter Plan of Treatment Not on file documented as of this encounter Visit Diagnoses Not on filedocumented in this encounter Care Teams Hall Supervisor Relationship Specialty Start Date End Date Maryuri Evans MD [address] [place] [address] PCP - General 09/23/14 documented as of this encounter
--- OUTSIDE RECORDS SUMMARY | 2024-05-31 17:41 | XMS_ITS | Encounter Summary ---
Author Organization Replaced By [facility] Address [facility] [place] [address] Care Team Providers Care Projection Printer Name Role Phone Maryuri Evans MD Primary Care Provider [phone] Encounter Details Date Type Department Care Team (Latest Contact Info) Description 11/04/2022 12:26 PM EDT - 11/04/2022 11:59 PM EDT Hospital Encounter XRay at [address] [place] [address] Dorina Campbell APRN [facility] ORTHOPAEDIC [place] [address] Closed fracture of shaft of right ulna with routine healing, unspecified fracture morphology, subsequent encounter Discharge Disposition: Home Social History Tobacco Use Types Packs/Day Years Used Date Smoking Tobacco: Never Smokeless Tobacco: Never Alcohol Use Standard Drinks/Week Comments Yes 0 (1 standard drink = 0.6 oz pur e alcohol) social, twice a year Sex and Gender Information Value Date Recorded Sex Assigned at Not on file Gender Identity Not on file Sexual Orientation Not on file documented as of this encounter Medications at Time of Discharge Medication Sig Dispensed Refills Start Date End Date alendronate (Fosamax) 70 mg tablet TAKE 1 TABLET ORALLY ONCE A WEEK ON EMPTY STOMACH FULL GLASS WATER UPRIGHT 30 MINUTES 09/01/[address] (Cymbalta) [address] capsule Take 30 mg by mouth 2 times daily. 10/25/2022 losartan (Cozaar) 25 mg tablet Take 25 mg by mouth daily. 10/20/2022 cholecalciferol, Vitamin D3, 50 mcg (2,000 unit) Tablet Take 2,000 Units by mouth daily. 10/31/2021 aspirin EC 81 mg Tablet, Delayed Release (E.C.) Take 1 tablet by mouth every 12 hours. Take every 12 hours for 4 weeks 60 tablet 11/09/2021 acetaminophen (Tylenol) 500 mg Tablet Take 2 tablets by mouth every 8 hours. 180 tablet 02/18/2021 Lantus Solostar U-100 Insulin pen Inject 20 Units subcutaneously nightly. 1 vial 3 02/18/2021 cyclobenzaprine (Flexeril) 5 mg Tablet Three times daily as needed for muscle spasms 30 tablet 02/18/2021 OneTouch Ultra Blue Test Strip Strip TEST THREE TIMES A DAY 11/30/2020 OneTouch Ultra2 Meter Misc TEST DIRECTED 11/29/2020 OneTouch Delica Plus Lancet 30 gauge Misc TEST THREE TIMES A DAY 11/28/2020 Victoza 2-Terrance 0.6 mg/0.1 mL (18 mg/3 mL) Pen Injector Inject 1.2 mg subcutaneously every morning. 11/29/2020 folic acid (Folvite) 1 mg Tablet Take by mouth. 08/31/2017 gabapentin (Neurontin) 300 mg Capsule TAKE ONE CAPSULE BY MOUTH THREE TIMES A DAY 09/01/2020 Elizabeth Pen Needle 32 gauge x 5/32 Needle USE 1 PEN NEEDLE ONCE DAILY AT BEDTIME 10/25/2019 hydrOXYzine (VISTARIL) 50 mg Capsule TAKE ONE CAPSULE BY MOUTH TWICE A DAY 01/25/2020 multivitamin (THERAGRAN) Tablet Take 1 tablet by mouth daily. calcium carbonate (CALCIUM 500 ORAL) Take by mouth. levothyroxine (SYNTHROID) 50 mcg Tablet Take 50 mcg by mouth nightly. 2017 glipiZIDE (GLUCOTROL XL) 10 mg Tablet Extended Rel 24 hr TAKE TWO TABLETS BY MOUTH EVERY DAY 3 07/21/2017 topiramate (TOPAMAX) 100 mg Tablet TAKE ONE TABLET BY MOUTH TWICE A DAY 3 07/21/2017 documented as of this encounter Plan of Treatment Not on file documented as of this encounter Procedures Procedure Name Priority Date/Time Associated Diagnosis Comments XR FOREARM RIGHT Routine 11/04/2022 12:5 0 PM EDT Closed fracture of shaft of right ulna with routine healing, unspecified fracture morphology, subsequent encounter documented in this encounter Results * XR Forearm Right [...] who have questions please contact the health day care assistant that requested your imaging first. ? Electronically signed by: KENDRA RENEE MD, [facility] ([phone]), at 11/04/2022 2:19 PM Narrative 11/04/2022 2:19 [...] patients who have questions please contactthe health day care assistant that requested your imaging first. Electronically signed by: KENDRA RENEE MD, [facility]([phone]), at 11/04/2022 2:19 PM Dorina Campbell COOKER [employer]A IMG DX ORDERABLES documented in this encounter Visit Diagnoses Diagnosis Closed fracture of shaft of right ulna with routine healing, unspecified fracture morphology, subsequent encounter documented in this encounter Care Teams Projection Printer Relationship Specialty Start Date End Date Maryuri Evans MD [address] [place] [address] PCP - General 09/23/14 documented as of this encounter
--- OUTSIDE RECORDS SUMMARY | 2024-05-31 17:41 | XMS_ITS | Encounter Summary ---
Author Organization Replaced By [facility] [place] [address] Care Team Providers Care Manager File Name Role Phone Maryuri Evans MD Primary Care Provider [phone] Encounter Details Date Type Department Care Team (Late st Contact Info) Description 09/09/2022 External [place] [address] Twin Vick MD [facility] [place] [address] Social History Tobacco Use Types Packs/Day Years [...] Procedure Name Priority Date/Time Associated Diagnosis Comments EMG WITH F-WAVE Routine 09/09/2022 documented in this encounter Results * EMG WITH F-WAVE (09/09/2022) Twin Vick MD NEUROLOGY ORDERABLES documented in this encounter Visit Diagnoses Not on filedocumented in this encounter Care Teams Manager File Relationship Specialty Start Date End Date Maryuri Evans MD [address] [place] [phone] PCP - General 09/23/14 documented as of this encounter
--- OUTSIDE RECORDS SUMMARY | 2024-05-31 17:41 | XMS_ITS | Encounter Summary ---
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 Dr. Correa. DOS: 11/09/2021. Discharge Disposition: Home Social History Tobacco Use [...] Sig Dispensed Refills Start Date End Date cholecalciferol, Vitamin D3, 50 mcg (2,000 unit) [...] BY MOUTH TWICE A DAY 3 07/21/2017 omeprazole (PriLOSEC) 40 mg Capsule, Delayed Release(E.C.) Take 40 mg by mouth daily. 01/04/2022 11/04/2022 metoclopramide (REGLAN) 5 mg Tablet TAKE ONE TABLET BY MOUTH EVERY 6 HOURS NEEDED FOR NAUSEA AND VOMITING 04/08/2021 11/04/2022 buPROPion XL (Wellbutrin XL) 150 mg Tablet Extended Release 24 hr Take 150 mg by mouth every morning. 11/04/2022 sertraline (ZOLOFT) 100 mg Tablet Take 2 tablets by mouth daily. 3 02/09/2018 11/04/2022 losartan (COZAAR) 50 mg Tablet Take 25 mg by mouth every evening. 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 Dr. Correa. DOS: 11/09/2021. documented in this encounter Results * XR Forearm Right (Generic) (05/05/2022 12:16 PM EDT) Anatomical Region Laterality Modality Forearm Right Digital Radiogra phy Impressions 05/05/2022 3:02 PM EDT Progressive healing of hardware reduced right ulna diaphysis fracture without radiographic finding of complication. Thank you for letting us participate in the care of this patient. ??If you are a health care provider and have any questions regarding this report, please contact the number below. ??For patients who have questions please contact the health day care aide that requested your imaging first. ? Narrative 05/05/2022 3:02 PM EDT EXAMINATION: XR FOREARM RIGHT (GENERIC) CLINICAL HISTORY: right proximal radius and ulna revision surgery for non-union ? healing ORIF with bone graft TECHNIQUE: 2 views RIGHT forearm COMPARISON: Radiographs November 09, December 30 and February 10, 2022 FINDINGS: Elbow arthrodesis with plate and screws as well as proximal ulna fracture reduction with plate and screws has intact hardware without adjacent lucency, change in position or bone malalignment. Increased callous volume and maturity is seen at the ulnar fracture with decreased conspicuity of the fracture line. 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 Diffuse bone demineralization and remodeling of the radial head are unchanged. No focal soft tissue abnormality. Procedure Note An Vargas MD - 05/05/2022 EXAMINATION: XR FOREARM RIGHT (GENERIC) CLINICAL HISTORY: right proximal radius and ulna revision surgery fornon-union ? healing ORIF with bone graft TECHNIQUE: 2 views RIGHT forearm COMPARISON: Radiographs November 09December 30 and February 10, 2022 FINDINGS: Elbow arthrodesis with plate and screws as well as proximal ulnafracture reduction with plate and screws has intact hardware without adjacentlucency, change in position or bone malalignment. Increased callous volume andmaturity is seen at the ulnar fracture with decreased conspicuity of the fractureline. 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 Diffuse bone demineralization and remodeling of the radial head areunchanged. No focal soft tissue abnormality. IMPRESSION Progressive healing of hardware reduced right ulna diaphysis fracturewithout radiographic finding of complication. Thank you for letting us participate in the care of this patient. If youare a health care provider and have any questions regarding this report,please contact the number below. For patients who have questions please contactthe health day care aide that requested your imaging first. 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 Dr. Correa. DOS: 11/09/2021. Personal history of surgery to other organs documented in this encounter Care Teams Sueding And Buffing Machine Operator Relationship Specialty Start Date End Date Maryuri Evans MD [address] [place] [address] PCP - General 09/23/14 documented as of this encounter
--- OUTSIDE RECORDS SUMMARY | 2024-05-31 17:41 | XMS_ITS | Encounter Summary ---
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 Dr. Correa. DOS: 11/09/2021. ; Ulnar neuritis, right; Median nerve compression Social History Tobacco Use Types Packs/Day Years [...] Sign Reading Time Taken Comments Blood Pressure - - Pulse - - Temperature - - Respiratory Rate - - Oxygen Saturation - - Inhaled Oxygen Concentration - - Weight 83 kg (183 lb) 11/04/2022 1:35 PM EDT Height 154.9 cm (5' 1) 11/04/2022 1:35 PM EDT Body Mass Index 34.58 11/04/2022 1:35 PM EDT documented in this encounter Progress Notes * Dorina Campbell, FLOW SPECIALIST - 11/04/2022 1:40 PM EDT Surgical Date: 11/09/2021 ?? Surgeon: * Christopher Correa MD - ?? Procedure(s) : REPAIR NONUNION OR MALUNION, RADIUS OR ULNA ,W/ AUTOGRAFT (Right) MODIFIER LARGE FRAGMENT SYSTEM SYNTHES (Right) MODIFIER LOCKING SMALL FRAGMENT SYNTHES (Right) REMOVAL OF IMPLANT, DEEP, FOREARM (Right) ?? CHIEF COMPLAINT: 12 months S/P above procedure HISTORY OF PRESENT ILLNESS: Ms. Méndez a 61 y.o. year old female comes into clinic today for appointment ~ 12 months s/p the above procedures. Jesenia is doing iok. There is mild pain yet not significantly interfering with her lifestyle. Mild tingling in the hand with recent EMG/NCS with mild median and ulnar nerve compression. HEELBO compression did nothing for the tingling in the hand. She willoccasionally wear a wrist brace for CTS. Patient's medications, allergies, past medical, surgical, social and family histories were reviewedand updated as appropriate. ROS: Denies fever, chills, nausea, vomiting, vision change, shortness of breath, chest pain, visionchanges, headaches, bowel or bladder problem, ear, nose, sinus problem, neuro or psychiatric, or endocrine disorder not addressed above. PHYSICAL EXAMINATION: Vitals: 11/04/22 1335 Weight: 83 kg (183 lb) Height: 154.9 cm (5' 1) Body mass index is 34.58 kg/m??. 61 year old Female in NAD. Non-toxic appearing. Right elbow and forearm exam: Wound Inspection: Surgical incision is well healed no asael-incisional erythema or evidence of infection. Neuro: Mild + tinel's at the ulnar groove of the elbow that reproduces tingling in the 4/5 finger and mild tinel's at the wrist with median nerve tingling with no motor weakness.. + motor intact in the hand with 5/5 wrist extension, interosseous and intrinsics intact, thumb opposes to the 5th finger. There is mild atrophy of the hypothenar eminence of the hand. Axillary (sensory and motor intact), antebrachial cutaneous intact, Radial, ulna [...] non-union with ongoing incorporating bone graft, there ongoing increased bridging callous as compared to previous x-ray. X-rays reviewed today in the office with Dr. Correa. ASSESSMENT: 61 year old Female who is now 12 months status post op for above surgical procedure. Jesenia is doing well status post most recent surgery. No hardware complications and ongoing+ incorporating bone graft. Ongoing hand numbness with EMG/NCS with both ulnar and median nerve compression. PLAN: I reviewed my findings in the office today with both x-rays and clinical exam. At this time, Ok to advance activity as pain and function allow. No restrictions. Per Dr. Correa. No further follow up appointments necessary unless she develops any problems or concerns. Jesenia is not interested in any type of surgical intervention for ulnar and median nerve compression. Ok to use HEELBO PRN for the elbow and carpal tunnel brace for the wrist. If she would like to consider surgery for compressiveneuropathies, we would recommend consult with Dr. Marino as he can approach both the elbow and wrist conditions. Pt agrees, questions solicited/answered, will return as scheduled and as needed for concerns or questions. Pt understands they may also call us prn for above. F/u PRN. Sooner as necessary. 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 Dr. Correa. DOS: 11/09/2021. Personal history of surgery to other organs Ulnar neuritis, right Median nerve compression Carpal tunnel syndrome documented in this encounter Care Teams Supervisory Examiner Relationship Specialty Start Date End Date Maryuri Evans MD [address] [place] [address] PCP - General 09/23/14 documented as of this encounter
--- OUTSIDE RECORDS SUMMARY | 2024-05-31 17:42 | XMS_ITS | Encounter Summary ---
Author Organization [facility] Address [facility] [place] [address] Care Team Providers Care Political Theory Professor Name Role Phone Maryuri Evans MD Primary Care Provider [phone] Reason for Visit * Reason Comments Follow Up Surgery Encounter Details Date Type Department Care Team (Late st Contact Info) Description 03/24/2021 10:20 AM EDT Office [place] [address] Anabell Delarosa [facility] [place] [address] Surgery follow-up Social History Tobacco Use Types Packs/Day Years Used Date Smoking Tobacco: Never Smokeless Tobacco: Never Alcohol Use Standard Drinks/Week Comments No 0 (1 standard drink = 0.6 oz pur e alcohol) Sex and Gender Information Value Date Recorded Sex Assigned at Not on file Gender Identity Not on file Sexual Orientation Not on file documented as of this encounter Patient Instructions * Patient Instructions* Anabell Delarosa APRN - 03/24/2021 10:20 AM EDT 1. Follow up in 7-10 days 2. Contact Infectious Disease team if you do not hear from them later today. 3. Antibiotics per ID team. 4. Left upper leg: keep pink bandage on and dry until Tuesday. Tuesday may remove dressing by placing Aquaphor under and gently peeling off. After Tuesday apply Aquaphor daily and cover with non stick gauze if having any drainage. 5. Left arm: every other day dressing changes: Aquaphor, adaptic, cover dressing. 6. Left lower leg: soft dressing and cover with splint. 7. Non weight bearing on left leg. 8. Increase dangling time. Now at 10 minute sessions. Continue Dangling Protocol - prior to initiating any dangling trial, assess flap color, temperature, engorgement, patient symptoms of throbbing/pain - gently wrap foot in dali bandage for gentle compression - dangle foot off side of bed (in dependent position) for 10 minutes - after 10 minutes, remove the dali wrap, elevate foot (foot above heel, heel above knee, knee abovehip), and reassess flap - now doing this for 10 minutes per session. - if the flap remains swollen or pt has continued throbbing pain, skip dangling until it returns toits pre-dangle appearance - if dangle is tolerated, add another 5 minute session, then add 5 minutes to one dangle per day Tomorrow: do 2 10 minute dangles and 1 15 minute dangle. - if dangle not tolerated, do not add time to protocol - instead go back one step - if flap remains blue/purple or doppler signal is lost, alert plastic surgery team [phone] documented in this encounter Progress Notes * Anabell Delarosa APRN - 03/24/2021 10:20 AM EDT Plastic Surgery Post-Op Note Provider: Anabell Delarosa APRN Jesenia Méndez returned to our office today for post surgical follow-up Date of surgery: 03/13/21 Procedure(s): Radial forearm free flap coverage of left ankle wounds (Shankaran) Complications: None reported HPI: Patient presents in Follow-Up today, 11 days post-surgery. She reports that she is not doing well. She is experiencing nausea and vomiting which she attributes to her antibiotics. She did not take her dose this morning and wants to discontinue it. She has been dangling 10 minutes 5 x per day. She has visiting nurses. Physical Examination: General: Alert, comfortable, conversant, arrives in wheelchair. Flap well perfused. Inset incisions healing well. Prolene sutures in place. Flap donor site (left forearm): skin graft with 100% take. Skin graft donor site (upper leg): dressing intact. Impression: Jesenia Méndez presents in Follow-Up today after radial forearm free flap to left ankle. Flap healing well. She is not tolerating antibiotics, due to be complete in 2 days. I have reached out to the ID team and they will contact the patient directly. Plan: 1. Follow up in 7-10 days 2. Contact Infectious Disease team if you do not hear from them later today. 3. Antibiotics per ID team. 4. Left upper leg: keep pink bandage on and dry until Tuesday. Tuesday may remove dressing by placing Aquaphor under and gently peeling off. After Tuesday apply Aquaphor daily and cover with non stick gauze if having any drainage. 5. Left arm: every other day dressing changes: Aquaphor, adaptic, cover dressing. 6. Left lower leg: soft dressing and cover with splint. 7. Non weight bearing on left leg. 8. Increase dangling time. Now at 10 minute sessions. Continue Dangling Protocol - prior to initiating any dangling trial, assess flap color, temperature, engorgement, patient symptoms of throbbing/pain - gently wrap foot in dali bandage for gentle compression - dangle foot off side of bed (in dependent position) for 10 minutes - after 10 minutes, remove the dali wrap, elevate foot (foot above heel, heel above knee, knee abovehip), and reassess flap - now doing this for 10 minutes per session. - if the flap remains swollen or pt has continued throbbing pain, skip dangling until it returns toits pre-dangle appearance - if dangle is tolerated, add another 5 minute session, then add 5 minutes to one dangle per day Tomorrow: do 2 10 minute dangles and 1 15 minute dangle. - if dangle not tolerated, do not add time to protocol - instead go back one step - if flap remains blue/purple or doppler signal is lost, alert plastic surgery team [phone] documented in this encounter Plan of Treatment Not on file documented as of this encounter Visit Diagnoses Diagnosis Surgery follow-up Follow-up examination, following unspecified surgery documented in this encounter Care Teams Political Theory Professor Relationship Specialty Start Date End Date Maryuri Evans MD [address] [place] [address] PCP - General 09/23/14 documented as of this encounter
--- OUTSIDE RECORDS SUMMARY | 2024-05-31 17:42 | XMS_ITS | Encounter Summary ---
[place] [address] Care Team Providers Care Coin Teller Name Role Phone Maryuri Evans MD Primary Care Provider [phone] Encounter Details Date Type Department Care Team (Late st Contact Info) Description 05/26/2021 Telephone [place] [id number] Jia Dia Social History Tobacco Use Types Packs/Day Years Used Date Smoking Tobacco: Never Smokeless Tobacco: Never Alcohol Use Standard Drinks/Week Comments No 0 (1 standard drink = 0.6 oz pur e alcohol) Sex and Gender Information Value Date Recorded Sex Assigned at Not on file Gender Identity Not on file Sexual Orientation Not on file documented as of this encounter Miscellaneous Notes * Telephone Encounter - Jia Dia - 05/26/2021 11:40 AM EDT LM for the pt to schedule a telephone apt with Dr. Franklin 3 weeks from 05/25/21 s/p RFFF documented in this encounter Plan of Treatment Not on file documented as of this encounter Visit Diagnoses Not on filedocumented in this encounter Care Teams Coin Teller Relationship Specialty Start Date End Date Maryuri Evans MD [address] [place] [address] PCP - General 09/23/14 documented as of this encounter
--- OUTSIDE RECORDS SUMMARY | 2024-05-31 17:42 | XMS_ITS | Encounter Summary ---
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 Procedures PRO REPAIR NONUNION RADIUS OR ULNAW/GRAFT REPAIR NONUNION OR MALUNION, RADIUS OR ULNA ,W/ AUTOGRAFT (WRVU 15.01) MODIFIER LARGE FRAGMENT SYSTEM SYNTHES MODIFIER LOCKING SMALL FRAGMENT SYNTHES MODIFIER SHOALS HOSPITALSameer Referral ID Status Reason Start Date Expiration Date Visits Re quested Visits Authorized [id number] 1 1 Encounter Details Date Type Department Care Team (Late st Contact Info) Description 11/09/2021 2:20 PM EDT - 11/09/2021 4:05 PM EDT Surgery [place] [address] Niyah Correa MD [facility] [place] [address] REPAIR NONUNION OR MALUNION, RADIUS OR ULNA ,W/ AUTOGRAFT (WRVU 15.01) Social History Tobacco Use Types Packs/Day Years [...] Sign Reading Time Taken Comments Blood Pressure 112/65 11/09/2021 2:45 PM EDT Pulse 71 11/09/2021 2:45 PM EDT Temperature 36.5 ??C (97.7 ??F) 11/09/2021 2:21 PM ED T Respiratory Rate 9 11/09/2021 2:45 PM EDT Oxygen Saturation 95% 11/09/2021 2:45 PM EDT Inhaled Oxygen Concentration - - Weight 76.7 kg (169 lb) 11/09/2021 2:21 PM EDT Height 154.9 cm (5' 1) 11/09/2021 2:21 PM EDT Body Mass Index 31.93 11/09/2021 2:21 PM EDT documented in this encounter Discharge Instructions * Discharge Instructions* Winsome Marc RN - 11/09/2021 2:07 PM EDT At 2:00 am you received 1000 mg of acetaminophen- Your next dose should not be taken before 8 hourshave passed. Next dose not before- 10:00 pm You should not take more than a total of 3000 mg of acetaminophen in a 24 hour period. Upper Extremity Nerve Block Nerve blocks affect many types of nerves. The affected nerves control movement, pain, and normal sensation. This causes feelings such as: Weakness Numbness Tingling Heaviness A feeling that your arm has fallen asleep. A nerve block can last from about 2 to 48 hours, depending on the medications used. Usually the weakness wears off first, then you will feel a numb or tingly sensation. Finally, the pain may come back. This can happen in any order. If you had a shoulder block, you may have other symptoms such as: Mild shortness of breath A hoarse voice Blurry vision Unequal pupils Drooping of your face on the same side as the nerve block. These are common and expected side effects of this type of nerve block. Symptoms usually go away within 12 hours. If these symptoms do not go away, please call the Anesthesiology Department at . If you have severe or prolonged shortness of breath, please go to the nearest emergency department. If you continue to feel the effects of the nerve block for longer than 48 hours, please call the Anesthesiology department at . Pain Medication If needed, your surgeon will give you a prescription for pain medication. Start taking this medication before the nerve block wears off. Nerve blocks sometimes wear off during the night. It is a goodidea to take your pain medicine as prescribed before going to sleep so you won't wake up with pain.The idea is to have pain medicine in your body before the nerve block wears off. To help prevent nausea, eat something before taking the pain medicine. Once a nerve block starts to wear off, it is usually completely gone within 60 minutes. It is important to have pain medicine in your system before the block wears off completely. Helpful tips to protect the part of your body that is numb. After a nerve block, you cannot feel pain, pressure, or extremes in temperature. Because your arm is numb, it is more at risk for injury. Therefore.... While you are awake, try to change positions of your arm often. This will help you avoid putting too much pressure on the limb for long periods of time. While sleeping, pad the blocked limb with pillows to avoid placing too much pressure on the limb. If you have a cast or a tight dressing, check the color of your fingers every couple of hours. Callyour doctor if any look discolored. If you had a shoulder, arm, or hand nerve block, you may go home with a sling. The sling will help to keep your arm in the ideal position. Wear the sling at all times until feeling returns. If you donot have a sling, watch the position of the blocked arm to make sure it is in a safe location. Ask your family or support people to help with the above hints. QUESTIONS? Please call the Anesthesiology department at with concerns or after hours and ask for the anesthesiologist plant protection officer. Moderate Sedation You may have received medication before and/or during your procedure, which affects your judgement and reaction time. Do not drive, operate machinery, drink alcoholic beverages, or make any legal decisions for 24 hours. Be careful on stairs, as you may be unsteady on your feet. You may eat a regular diet as tolerated. Do not smoke if you are alone. IV site -- slight redness, or tenderness is normal, you can use a warm compress. If tenderness and redness increases or foul drainage occurs, please contact your M. D. Questions or problems after 5pm or on a weekend: Call the [facility] slag motor operator and ask for the physician plant protection officer covering for your doctor. * Patient Instructions* Ania Moore MD - 11/09/2021 5:33 PM EDT Activity level: 1. Non-weight bearing on your Right upper extremity. 2. Remember to keep your Right upper extremity elevated as much as possible to decrease swelling and control pain. 3. You should wear the sling for comfort. Use pillows under the arm to assist with elevation. Anticoagulation: Aspirin - You are being discharged on enteric-coated Aspirin 81mg by mouth twice aday. Continue this for 30 days. After your dose on 12/10/21 stop the Aspirin, unless you are told otherwise by your Orthopedic surgeon. Take this medication with food or large amounts (240 mL) of water or milk to minimize GI irritation. Diet: You may return to your usual diet, but increase your fluids and fiber intake to keep you hydrated and your bowels soft. You should increase your intake of high protein foods and fluids to help heal your injury. Driving: None until you are cleared to do so by your Orthopedic surgeon. You should not drive whileyou are on narcotic pain meds as they can affect your judgement and reaction time. Call your surgeon with any questions/concerns. Medications: 1. The pain medication you are on can cause constipation so increase your intake of fluids and fiber while you are on them. The stool softener, Pericolace, that has been prescribed can also be taken to facilite a bowel movement. You can also take an tcxw-jgi-[id number] medication, Miralax if needed tocombat constipation. 2. If you need a renewal on your narcotic pain medication, you need to give the Orthopedic clinic enough time to process your request. This can take up to three days, so plan accordingly. 3. Continue acetaminophen (Tylenol) 1,000mg every 8 hours as needed - this can be effective in controlling pain along with your other medications. After that you can take Tylenol as needed per package insert. Do not take more than 3,000mg of acetaminophen in a 24 hour period. 4. You have been discharged on a short acting narcotic, oxycodone. You will be on this medication for a limited period of time only. Taper off this medication as your pain improves. 5. Do not take any NSAIDs including ibuprofen, Motrin or Aleve as this may impair the healing of your bone and tissues. Shower/Bath: You may shower BUT use a waterproof dressing (plastic bag taped at the top) to cover the incision/dressing. DO NOT submerge the wound. Remember you MUST to observe your weight bearing status and activity limitations when you shower so use a chair or bench for balance if you are unable to safely stand. A sponge bath may be easier. Wound Care: 1. Suture/staple removal 2 weeks post-op (11/23/21). 2. Leave the operative dressing on until follow-up. Cast/Splint Care: Keep the cast or splint in place until your follow-up with Orthopedics. Keep the cast/splint clean and dry. It is easiest to sponge bathe, but if you must bathe, protect the cast/splint with a plastic bag high above the cast or splint and secure with adhesive tape. Do not submergethe cast in water at anytime. If the cast accidently gets wet, call the office immediately to have it replaced. A wet cast can cause severe skin and wound problems. Call your doctor ([phone]) if you develop: Fever greater than 100.5 Severe nausea or vomiting Increasing pain that is not controlled by pain medications Increasing redness, swelling, or drainage from incisions Change in sensation Misc: 1. If you are a smoker, quitting is very important to help your fracture heal. You should contact your PCP to assist you with setting up a cessation program. 2. Remember that ICE and elevation are very important to decrease swelling and control pain. You should use the ICE for 20-30 minutes at a time. 3. To help with bone healing and your overall bone health, your intake of calcium should be at least 1200mg a day and your vitamin D intake should be at least 800 IU per day. FOLLOWUP APPOINTMENTS: 1. You will have followup appointments at [facility] as indicated in Future Appointment and Orders. 2. If you are being discharged over the weekend or at night and do not have a scheduled appointmentwith Orthopaedics, you should be notified about your appointment within the next 1-2 days. Please call if you do not hear about an appointment within that timeframe, as your follow-up is important to us. Future Appointments Date Time Provider Department Center 12/02/2021 10:20 AM Dorina Campbell, HEMATOLOGY NURSE [facility] 3C [facility] If you have questions or concerns: Tuesday through Tuesday, 8 AM - 5 PM, please call Niyah Correa MD, 's office at . If it is after 5 PM or on the weekend, please call and ask to speak with the Orthopedic resident on-call. documented in this encounter Medications at Time of Discharge [...] BY MOUTH TWICE A DAY 3 07/21/2017 acetaminophen 500 mg Capsule Take 2 capsules by mouth every 8 hours for 10 days. 60 capsule 11/09/2021 11/19/2021 oxyCODONE (Roxicodone) 5 mg Tablet Take 1 tablet by mouth every 4 hours as needed for Pain. 25 tablet 11/09/2021 11/16/2021 polyethylene glycoL (Miralax) 17 gram Powder in Packet Take 17 g by mouth 2 times daily. Take 1-2 times per day PRN for constipation 14 each 11/09/2021 12/30/2021 senna-docusate (sennosides-docusat e sodium) 8.6-50 mg Tablet Take 2 tablets by mouth 2 times daily as needed for Constipation. 60 tablet 11 11/09/2021 12/30/2021 0.9 % sodium chloride (sodium chloride 0.9%) Parenteral Solution 02/03/2021 12/31/19 22 metoclopramide (REGLAN) 5 mg Tablet TAKE ONE TABLET BY MOUTH EVERY 6 HOURS NEEDED FOR NAUSEA AND VOMITING 04/08/2021 11/04/2022 omeprazole (PriLOSEC) 40 mg Capsule, Delayed Release(E.C.) TAKE 1 CAPSULE BY MOUTH ONCE A DAY 04/16/2021 12/30/2021 ondansetron (Zofran) 4 mg Tablet Take 1 tablet by mouth every 8 hours as needed for Nausea. 20 tablet 03/05/2021 12/30/2021 buPROPion XL (Wellbutrin XL) 150 mg Tablet Extended Release 24 hr Take 150 mg by mouth every morning. 11/04/2022 pantoprazole (PROTONIX) 40 mg Tablet, Delayed Release (E.C.) Take 1 tablet by mouth daily. 3 02/09/2018 02/10/2022 sertraline (ZOLOFT) 100 mg Tablet Take 2 tablets by mouth daily. 3 02/09/2018 11/04/2022 losartan (COZAAR) 50 mg Tablet Take 25 mg by mouth every evening. 11/04/2022 documented as of this encounter Progress Notes * Khushboo Menezes RN - 11/09/2021 6:32 PM EDT Discharge instructions and medications reviewed with patient and significant other. Prescriptions escribed by MD to [facility]. Educated on pain control. Denied pain and nausea. Able to tolerate apple juice an crackers. Nerve block education reinforced. Patient stated she is able to feel if blood sugar is low, she stated she was feeling fine and would check blood sugar when she got home. Able to void prior to discharge. Educated on where and when to call with any questions or concerns following discharge. Post operative xrays obtained prior to discharge. Sling provided to patient, educated on importance of ice and elevation. All questions answered and written copy sent home with patient. Makenna nt ambulated to car for discharge accompanied by [facility] staff member. * Winsome Marc RN - 11/09/2021 2:12 PM EDT Communicated preop BS of 58 to anesthesia. Patient treated by anesthesia. 1454 Recheck bs 71 reported to Tamra GONZALEZ. documented in this encounter H&P Notes * Ania Moore MD - 11/09/2021 2:48 PM EDT PRE-OPERATIVE HISTORY AND PHYSICAL for ADMISSION, OBSERVATION OR PROCEDURE Date of : 1960 Age: 60 y.o. PCP: Maryuri Evans MD Presenting Diagnosis/Chief Complaint: No chief complaint on file. History of Present Illness: Jesenia Méndez is a 60 y.o. female who presents for pre-operative examination. Please see Dr. Correa's note for full details of the patient's specific problem. PMHx: Patient Active Problem List Diagnosis Code ??? Psoriasis L40.9 ??? S/P R elbow fusion on 12/14/17 Madeline S53.106A ??? Chronic pain in left shoulder M25.512, G89.29 ??? H/O insulin dependent diabetes mellitus Z86.39 ??? H/O: depression Z86.59 ??? Hypothyroidism E03.9 ??? h/o chronic headaches R51.9, G89.29 ??? Closed fracture of shaft of right ulna with known elbow arthrodesis RIGHT S52.201A ? ? S/P Left ankle I&D for abscess and wound dehiscence, 02/08/21 (Dr Quiñones) and 02/10/21 (Abdirahman); 02/12 + 02/14 ( Dr. Capellan) L02.419 ??? Closed fracture of left ankle with routine healing S82.892D ??? Ankle wound, left, sequela S91.002S ??? Surgery follow-up Z09 History reviewed. No pertinent past medical history. Past Surgical History: Procedure Laterality Date ??? IR LINE OR TUBE REMOVAL IN RECOVERY ROOM 03/26/2021 IR Line or Tube Removal in Recovery Room 03/26/2021 Mono Felipe MD [facility] INTERVENTIONL RAD ??? IR TUNNELED CENTRAL VENOUS ACCESS NON-DIALYSIS 03/16/2021 IR Tunneled Central Venous Access Non-Dialysis 03/16/2021 Yunior Flores MD [facility] INTERVENTIONLRAD ??? PRO ALVEOLOPLASTY W EXTRACTIONS, 4 OR MORE TEETH, PER QUADRANT N/A 09/11/2019 ALVEOPLASTY,IN CONJUNCTION WITH EXTRACTIONS,PER QUADRANT,ENT (WRVU 4.06) performed by Wesley Jacobo MD at [facility] ? ? PRO DEBRIDEMENT BONE MUSCLE &/FASCIA 20 SQ CM/< Left 02/14/2021 DEBRIDEMENT SKIN, SUBCU, MUSCLE, BONE, LOWER EXTREMITY (WRVU 4.1) performed by Sabrina Capellan MDat [facility] MAIN OR ? ? PRO DEBRIDEMENT SUBCUTANEOUS TISSUE 20 SQCM/< Left 02/08/2021 DEBRIDEMENT SKIN AND SUBCU, LOWER EXTREMITY (WRVU 1.01) performed by Henrry Quiñones MD at [facility] OR ? ? PRO DEBRIDEMENT SUBCUTANEOUS TISSUE 20 SQCM/< Left 02/10/2021 DEBRIDEMENT SKIN AND SUBCU, LOWER EXTREMITY (WRVU 1.01) performed by Jacobo De La Cruz MD at [facility] OR ? ? PRO DEBRIDEMENT SUBCUTANEOUS TISSUE 20 SQCM/< Left 02/12/2021 DEBRIDEMENT SKIN AND SUBCU, LOWER EXTREMITY (WRVU 1.01) performed by Sabrina Capellan MD at [facility] OR ??? PRO FREE FASCIAL FLAP W MICROVASC ANAST Left 03/13/2021 @FLAP, FREE FASCIAL, W/ MICRO ANASTOMOSIS, LOWER EXTREMITY (WRVU 36.9) performed by Aydee Franklin MD at [facility] OR ??? PRO FUSION/GRAFT OF ELBOW JOINT Right 2017 ARTHRODESIS, ELBOW JOINT WITH AUTOGENOUS GRAFT (WRVU 14.32) performed by Niyah Correa MD at [facility] OR ??? PRO REMOVAL DEEP IMPLANT Right 2017 REMOVAL OF IMPLANT, DEEP, ELBOW (WRVU 5.96) performed by Niyah Correa MD at [facility] OR ??? PRO REMOVAL ERUPTED TOOTH WITH ELEVATION OF MUCOPERIOSTEAL FLAP Bilateral 09/11/2019 SURGICAL EXTRACTIONS REQUIRING ELEVATION OF MUCOPERIOSTEAL FLAP AND REMOVAL OF BONE OR SECTION OF TOOTH (WRVU 1.09) performed by Wesley Jacobo MD at [facility] ? ? PRO SPLIT GRFT TRUNK, ARM, LEG <100SQCM Left 03/13/2021 SPLIT THICK SKIN GRAFT,100 SQ CM OR LESS, LEGS (WRVU 9.9) performed by Aydee Franklin MD at [facility] OR Home Medications: Medications Prior to Admission Medication Sig Dispense Refill Last Dose ??? metoclopramide (REGLAN) 5 mg Tablet TAKE ONE TABLET BY MOUTH EVERY 6 HOURS NEEDED FOR NAUSEAAND VOMITING 11/08/2021 at Unknown time ??? omeprazole (PriLOSEC) 40 mg Capsule, Delayed Release(E.C.) TAKE 1 CAPSULE BY MOUTH ONCE A DAY 11/09/2021 at Unknown time ??? acetaminophen (Tylenol) 500 mg Tablet Take 2 tablets by mouth every 8 hours. 180 tablet 0 Past Week at Unknown time ??? Lantus Solostar U-100 Insulin pen Inject 20 Units subcutaneously nightly. 1 vial 3 11/08/2021 atUnknown time ??? cyclobenzaprine (Flexeril) 5 mg Tablet Three times daily as needed for muscle spasms 30 tablet 0 Past Week at Unknown time ??? Victoza 2-Terrance 0.6 mg/0.1 mL (18 mg/3 mL) Pen Injector Inject 1.2 mg subcutaneously every morning. 11/08/2021 at Unknown time ??? folic acid (Folvite) 1 mg Tablet Take by mouth. 11/08/2021 at Unknown time ??? gabapentin (Neurontin) 300 mg Capsule TAKE ONE CAPSULE BY MOUTH THREE TIMES A DAY 11/09/2021 at Unknown time ??? hydrOXYzine (VISTARIL) 50 mg Capsule TAKE ONE CAPSULE BY MOUTH TWICE A DAY 11/09/2021 at Unknowntime ??? buPROPion XL (Wellbutrin XL) 150 mg Tablet Extended Release 24 hr Take 150 mg by mouth every morning. 11/09/2021 at Unknown time ??? sertraline (ZOLOFT) 100 mg Tablet Take 2 tablets by mouth daily. 3 11/09/2021 at Unknown time ??? multivitamin (THERAGRAN) Tablet Take 1 tablet by mouth daily. 11/08/2021 at Unknown time ??? calcium carbonate (CALCIUM 500 ORAL) Take by mouth. Past Week at Unknown time ??? levothyroxine (SYNTHROID) 50 mcg Tablet Take 50 mcg by mouth nightly. 11/08/2021 at Unknown time ??? glipiZIDE (GLUCOTROL XL) 10 mg Tablet Extended Rel 24 hr TAKE TWO TABLETS BY MOUTH EVERY DAY 3 11/08/2021 at Unknown time ??? topiramate (TOPAMAX) 100 mg Tablet TAKE ONE TABLET BY MOUTH TWICE A DAY 3 11/08/2021 at Unknown time ??? losartan (COZAAR) 50 mg Tablet Take 25 mg by mouth every evening. 11/08/2021 at Unknown time ??? 0.9 % sodium chloride (sodium chloride 0.9%) Parenteral Solution ??? ondansetron (Zofran) 4 mg Tablet Take 1 tablet by mouth every 8 hours as needed for Nausea. (Patient not taking: No sig reported) 20 tablet 0 More than a month at Unknown time ??? OneTouch Ultra Blue Test Strip Strip TEST THREE TIMES A DAY ??? OneTouch Ultra2 Meter Misc TEST DIRECTED ??? OneTouch Delica Plus Lancet 30 gauge Misc TEST THREE TIMES A DAY ??? Elizabeth Pen Needle 32 gauge x 5/32 Needle USE 1 PEN NEEDLE ONCE DAILY AT BEDTIME ??? pantoprazole (PROTONIX) 40 mg Tablet, Delayed Release (E.C.) Take 1 tablet by mouth daily. 3 More than a month at Unknown time Allergies: Allergies Allergen Reactions ??? Latex Rash ??? Erythromycin Lactobionate Nausea Only ??? Metformin Nausea Only ??? Red Blood Cells Other (See Comments) Antibodies-Difficult to Crossmatch DO NOT REMOVE Please contact the Blood Bank at [phone] for questions. ??? Pollen Extracts Other (See Comments) Rhinusitus ??? Trazodone Other (See Comments) Hallucination ??? Adhesive Rash Skin Rash ??? Lisinopril Other (See Comments) Cough. Family History: Non contributory Family History Problem Relation Age of Onset ??? Chronic Obstructive Pulmonary Disease Mother ??? Emphysema Mother ??? Diabetes Mother ??? Heart Disease Father ??? Diabetes Father ??? Diabetes Maternal Grandmother ??? Pancreatic Cancer Maternal Grandmother Review of Systems: complete 10 system ROS performed with pertinent findings below. Pertinent items are noted in HPI. Physical Exam: VITALS: Temperature Temp: 36.5 ??C (97.7 ??F) Heart Rate Heart Rate: 72 Blood Pressure BP: 116/73 Respiratory Rate Resp: 9 SpO2 SpO2: 100 % No intake/output data recorded. General: alert, appears stated age and cooperative Pulmonary: equal, clear breath sounds bilaterally and no crepitus Cardiovascular: Regular rate and rhythm, S1S2 present or without murmur or extra heart sounds Assessment and Plan: 60 y.o. female with the above problem, plan to proceed to OR with Dr. Madeline Patel revision ulnar fixation for nonunion. Acute Opioid Prescribing: Opioid PDMP 10/23/2021 03/04/2021 11/08/2017 [place] PDMP Query Date 10/23/2021 03/13/2021 11/08/2017 [place] PDMP Query Date 10/23/2021 03/13/2021 11/08/2017 [place] PD[place] Query Date 10/23/2021 03/13/2021 - No flowsheet data found. Acute Opioid Specific Questions 03/04/2021 Date Acute Consent signed 03/13/2021 Considered the risk of opioid misuse, abuse, diversion? Yes Considered options for non-pharmacological modalities and non-opioid therapy? Yes Some recent data might be hidden Jesenia Sanderson Is being provided with a prescription for acute pain. Non opioid therapies and non-pharmacologic modalities have been considered. The patient's risk for opioid misuse, abuse or diversion have been considered. I have discussed the risks and potential side effects of opioid medications, that include but are not limited to, addiction, overdose and , dependence, tolerance, osteoporosis, constipation, sexual dysfunction, hyperalgesia and crime victimization. The patient is also informed of: - the risks of keeping unused medication -counseled on keeping opioids locked -counseled on safe disposal of unused medication -dangers of operating a motor vehicle or heavy machinery -if a renewal is required, they shall return for an in-office follow up for reevaluation. Ania Moore MD, PGY-5 Orthopaedic Surgery [facility] Associated attestation - Niyah Correa MD - 11/09/2021 2:55 PM EDT Attending addendum: The preceeding portion of this note was written by Dr. Moore. I personally saw and evaluated the patient at the bedside and I agree with the assessment and plan documented above. Niyah Correa M.D., M.S. 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 Procedure(s) (LRB): REPAIR NONUNION OR MALUNION, RADIUS OR ULNA ,W/ AUTOGRAFT (WRVU 15.01) (Right) MODIFIER LARGE FRAGMENT SYSTEM SYNTHES (Right) MODIFIER LOCKING SMALL FRAGMENT SYNTHES (Right) REMOVAL OF IMPLANT, DEEP, FOREARM (WRVU 5.96) (Right) Anesthesia: General Estimated Blood Loss: * No values recorded between 11/09/2021 3:19 PM and 11/09/2021 5:17 PM * Specimens removed during surgery: Drains: * No LDAs found * Surgical Closure: Primary Closure - skin incision is completely closed without any wires, barbi, drains or other devices Disposition: awakened from anesthesia, extubated and taken to the recovery room in a stable condition, having suffered no apparent untoward event. 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 After discussion of options elected to proceed with open reduction internal fixation, repair of the nonunion, and bone grafting. She understood the risks of surgery and signed her consent. All questions were answered. Procedure Description: Patient was identified in the preoperative holding area and the site of surgery was confirmed to be the right ulna. It was marked with a green lime. She was given a regional anesthetic and brought to the operating room where she was placed supine on the operating table and a general anesthetic was induced. Antibiotics were administered. Timeout was called and all agreed th at the right elbow was the site of surgery. Well-padded tourniquet was placed high on the right upper extremity. Arm was exsanguinated using an Esmarch bandage and was up for 89 minutes. We used the distal third of the previous incision and extended somewhat more distally than that. Was carried sharply down to the ulnar periosteum. We elevated a periosteal flap volarly. We removed the distal 2 screws from the plate. The most distal screw was loose, but the more proximal screw was not. The nonunion was vigorously debrided. We exposed both ends and removed all fibrous tissue. We drilled into the canal on both sides to open the canal and burred down the ends of the bone. There wassome heterotopic bone which was excised and morselized for autogenous graft. We mixed this with infuse BMP and cortical cancellous allograft to fill all of the gaps. The reduction was held with a poin t-to-point forceps while we placed a 10 hole 2.7 locking mini frag plate. This was placed with compression technique and then locking screws were placed to stabilize the plate. There was excellent compression of the bone ends. We then placed infuse and cortical cancellous allograft around the gaps peripherally. We then closed the fascia with 0 Vicryl and the subcutaneous tissue with 0 and 3-0 Vicryl and the skin with nylon. Hemostasis was achieved prior to closure. Splint was then placed to protect the repair. Postop plan will be splint for 6 weeks followed by gentle wrist range of motion. Surgical Infection Prevention Bundle Used? N/A Attestation: Case Date: 11/09/2021 I was present and I participated during the entire procedure (does not need to include opening and closing). NIYAH CORREA MD 11/09/2021 documented in this encounter Plan of Treatment Not on file documented as of this encounter Procedures Procedure Name Priority Date/Time Associated Diagnosis Comments XR FOREARM RIGHT Routine 11/09/2021 6:31 PM EDT REMOVAL OF IMPLANT,FOREARM Routine 11/09/2021 5:19 PM EDT XR FLUORO NO RAD <1HR - OR USE Routine 11/09/2021 4:45 PM EDT HC JOINT CULTURE Routine 11/09/2021 3:32 PM EDT JOINT CULTURE Routine 11/09/2021 3:32 PM EDT ANAEROBIC CULTURE Routine 11/09/2021 3:3 2 PM EDT Removal Deep Implant ([id number]) 11/09/2021 3:01 PM EDT ulna nonunion MODIFIER LOCKING SMALL FRAGMENT SYNTHES 11/09/2021 3:01 PM EDT ulna nonunion MODIFIER LARGE FRAGMENT SYSTEM SYNTHES 11/09/2021 3:01 PM EDT ulna nonunion Repair Nonunion Radius Or Ulnaw/Graft ([id number]) 11/09/2021 3:01 PM EDT ulna nonunion REPAIR NONUNION OR MALUNION, RADIUS OR ULNA ,W/ AUTOGRAFT Routine 11/09/2021 1:46 PM EDT documented in this encounter Results * XR Forearm Right (Generic) (11/09/2021 6:31 PM EDT) Anatomical Region Laterality Modality Forearm Right Digital Radiogra phy Impressions 11/10/2021 7:13 AM EDT No radiographic evidence of hardware complication. Thank you for letting us participate in the care of this patient. ??If you are a health care provider and have any questions regarding this report, please contact the number below. ??For patients who have questions please contact the health primary care md that requested your imaging first. ? Narrative 11/10/2021 7:13 AM EDT EXAMINATION: XR FOREARM RIGHT (GENERIC) CLINICAL HISTORY: s/p revision ORIF for ulnar nonunion in sameday PACU please TECHNIQUE: 2 views RIGHT forearm COMPARISON: Same day intraoperative fluoroscopy FINDINGS: Overlying splint obscures fine bony detail. Partially imaged arthrodesis at the elbow. Status post internal fixation of proximal ulnar shaft fracture. Hardware is intact and unchanged alignment compared to intraoperative fluoroscopy. Mild displacement of the fracture with partial bony bridging is unchanged. Procedure Note Joaquin Ferro MD - 11/10/2021 EXAMINATION: XR FOREARM RIGHT (GENERIC) CLINICAL HISTORY: s/p revision ORIF for ulnar nonunion in sameday PACUplease TECHNIQUE: 2 views RIGHT forearm COMPARISON: Same day intraoperative fluoroscopy FINDINGS: Overlying splint obscures fine bony detail. Partially imaged arthrodesisat the elbow. Status post internal fixation of proximal ulnar shaft fracture.Hardware is intact and unchanged alignment compared to intraoperative fluoroscopy.Mild displacement of the fracture with partial bony bridging is unchanged. IMPRESSION No radiographic evidence of hardware complication. Thank you for letting us participate in the care of this patient. If youare a health care provider and have any questions regarding this report,please contact the number below. For patients who have questions please contactthe health primary care md that requested your imaging first. Electronically signed by: Joaquin Ferro MD, [facility]([phone]), at 11/10/2021 7:13 AM Niyah Correa MD IMG DX ORDERABLES * XR Fluoro No Rad <1Hr - OR Use (11/09/2021 4:45 PM EDT) Narrative Dicom, Auditing User - 11/09/2021 4:45 PM EDT This exam is auto-finalizing. No interpretation was done. Niyah Correa MD IMG FLUORO ORDERABLE S * Anaerobic Culture (11/09/2021 3:32 PM EDT) Anaerobic Culture No anaerobic organisms isolated [facility] Joint Fluid RIGHT ELBOW REGION STRUCTURE / Unknown 11/09/2021 3:32 PM EDT 11/09/2021 4:37 PM EDT Comment:Right non-union ulna Narrative Resulting Agency Comment Spec In Lab Niyah Correa MD MICROBIOLOGY - GENER AL ORDERABLES [facility] [place] [address] * Joint Culture (11/09/2021 3:32 PM EDT) Joint Culture No growth at 14 days. [facility] Gram Stain Cytocentrifuge Gram Stain performed No Neutrophils seen. No microorganisms seen. [facility] Joint Fluid RIGHT ELBOW REGION STRUCTURE / Unknown 11/09/2021 3:32 PM EDT 11/09/2021 4:37 PM EDT Comment:Right non-union ulna Narrative Resulting Agency Comment Spec In Lab Niyah Correa MD MICROBIOLOGY - GENER AL ORDERABLES [facility] [place] [address] documented in this encounter Visit Diagnoses Not on filedocumented in this encounter Administered Medications Inactive Administered Medications - up to 3 most recent administrations Medication Order MAR Action Action Date Dose Rate Site acetaminophen (Tylenol) tablet 1,000 mg 1,000 mg, Oral, ONCE, 1 dose, On Tue11/09/21 at 1415, Administer with SIP of H2O only., Day of Surgery (Day of Procedure), Routine Given 11/09/2021 2:03 PM EDT 1,000 mg dextrose 5% and sodium chloride 0.9% infusion 100 mL/hr, Intravenous, CONTINUOUS, Starting on Tue11/09/21 at 1500, Until Tue11/09/21 at 1832, Day of Surgery (Day of Procedure) New Bag 11/09/2021 3:00 PM EDT 100 mL/hr 100 mL/hr fentaNYL (PF) (50 mcg/mL) injection 50 mcg 50 mcg, Intravenous, EVERY 5 MIN PRN, Starting on Tue11/09/21 at 1356, Until Tue11/09/21 at 1832, Pain, or prior to injection of local anesthetic., Hold for respiratory rate less than 8 breaths per minute. (maximum dose 200 mcg), Day of Surgery (Day of Procedure), Routine Given 11/09/2021 2:42 PM EDT 25 mcg Given 11/09/2021 2:38 PM EDT 25 mcg lactated ringers infusion 1,000 mL, at 100 mL/hr, Intravenous, CONTINUOUS, Starting on Tue11/09/21 at 1415, Until Tue11/09/21 at 1832, Day of Surgery (Day of Procedure) New Bag 11/09/2021 3:40 PM EDT New Bag 11/09/2021 2:30 PM EDT 1,000 mLs 100 mL/hr midazolam (pf) (Versed) (1 mg/mL) injection 1 mg 1 mg, Intravenous, EVERY 5 MIN PRN, Starting on Tue11/09/21 at 1356, Until Tue11/09/21 at 1832, Other, Sedation or prior to injection of local anesthetic, Hold for delirium/agitation. (Maximum dose 5 mg)., Day of Surgery (Day of Procedure), Routine Given 11/09/2021 2:43 PM EDT 1 mg Given 11/09/2021 2:36 PM EDT 1 mg documented in this encounter Active and Recently Administered Medications Times are shown in EDT. Scheduled Medication Order 11/07/2021 11/08/2021 11/09/2021 acetaminophen (Tylenol) tablet 1,000 mg (COMPLETED) 1,000 mg, Oral, ONCE, 1 dose, On Tue11/09/21 at 1415, Administer with SIP of H2O only., Day of Surgery (Day of Procedure), Routine 1403 (Given - Provid er: Winsome Marc RN) acetaminophen (Tylenol) tablet 1,000 mg 1,000 mg, Oral, EVERY 8 HOURS SCHEDULED, First dose on Tue11/09/21 at 2200, Until Discontinued, Maximum dose of acetaminophen is 4000 mg from all sources in 24 hours. When ordered for pain, acetaminophen should be given even when other ordered pain medications are indicated. , Recovery (Recovery-Hospital Unit), Routine ceFAZolin (Ancef) 2 g in dextrose 5% 100 mL infusion (COMPLETED) 2 g, Intravenous, EVERY 3 HOURS, 1 dose, First dose on Tue11/09/21 at 1415, Administer over 30 Minutes, Re-dose after 3 hours., Intra-Operative (Intra-Procedure), Indication for (Active or Suspected): Prophylaxis 1510 (Given - Provid er: Tamra Lowery CRNA) Continuous Medication Order 11/07/2021 11/08/2021 11/09/2021 dextrose 5% and sodium chloride 0.9% infusion (CANCELED) 100 mL/hr, Intravenous, CONTINUOUS, Starting on Tue11/09/21 at 1500, Until Tue11/09/21 at 1832, Day of Surgery (Day of Procedure) 1500 (New Bag - Prov ider: Winsome Marc RN) lactated ringers infusion (CANCELED) 1,000 mL, at 100 mL/hr, Intravenous, CONTINUOUS, Starting on Tue11/09/21 at 1415, Until Tue11/09/21 at 1832, Day of Surgery (Day of Procedure) 1430 (New Bag - Prov ider: Winsome Marc RN)1539 (Paused - Provider: Tamra Lowery CRNA - Comment: Switch to gravity)1540 (New Bag - Provider: Tamra Lowery CRNA)1623 (Anesthesia Volume Adjustment - Provider: Tamra Lowery CRNA) PRN Medication Order 11/07/2021 11/08/2021 11/09/2021 fentaNYL (PF) (50 mcg/mL) injection 50 mcg (CANCELED) 50 mcg, Intravenous, EVERY 5 MIN PRN, Starting on Tue11/09/21 at 1356, Until Tue11/09/21 at 1832, Pain, or prior to injection of local anesthetic., Hold for respiratory rate less than 8 breaths per minute. (maximum dose 200 mcg), Day of Surgery (Day of Procedure), Routine 1438 (Given - Provid er: Anaya Vora RN)1442 (Given - Provider: Anaya Vora, SUNIL) midazolam (pf) (Versed) (1 mg/mL) injection 1 mg (CANCELED) 1 mg, Intravenous, EVERY 5 MIN PRN, Starting on Tue11/09/21 at 1356, Until Tue11/09/21 at 1832, Other, Sedation or prior to injection of local anesthetic, Hold for delirium/agitation. (Maximum dose 5 mg)., Day of Surgery (Day of Procedure), Routine 1436 (Given - Provid er: Anaya Vora RN)1443 (Given - Provider: Anaya Vora RN) ondansetron (pf) (Zofran) (2 mg/mL) injection 4 mg 4 mg, Intravenous, EVERY 30 MIN PRN, 2 doses, Starting on Tue11/09/21 at 1727, Until Tue11/09/21 at 2033, Nausea, Recovery (Recovery-Hospital Unit) oxyCODONE (Roxicodone) tablet 5-10 mg 5-10 mg, Oral, EVERY 4 HOURS PRN, Starting on Tue11/09/21 at 1728, Until Tue11/09/21 at 2033, Pain, Give 5mg. If pain control not adequate in 60 minutes, give additional 5 mg. For mild pain (1-3), Recovery (Recovery-Hospital Unit), Routine documented in this encounter Care Teams Police Pilot Relationship Specialty Start Date End Date Maryuri Evans MD [address] [place] [address] PCP - General 09/23/14 documented as of this encounter
--- OUTSIDE RECORDS SUMMARY | 2024-05-31 17:42 | XMS_ITS | Encounter Summary ---
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 Ok to wean as tolerated. 15 tablet 12/02/2021 12/30/2021 polyethylene glycoL (Miralax) 17 gram Powder in Packet Take 17 g by mouth 2 times daily. Take 1-2 times per day PRN for constipation 14 each 11/09/2021 12/30/2021 senna-docusate (sennosides-docusat e sodium) 8.6-50 mg Tablet Take 2 tablets by mouth 2 times daily as needed for Constipation. 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 Hardware on the diaphysis fracture without radiographic finding of complication. Thank you for letting us participate in the care of this patient. ??If you are a health care provider and have any questions regarding this report, please contact the number below. ??For patients who have questions please contact the health before and after school daycare worker that requested your imaging first. ? Electronically signed by: An Vargas MD, [facility] ([phone]), at 12/02/2021 10:05 AM Narrative 12/02/2021 10:05 AM EDT EXAMINATION: XR FOREARM RIGHT (GENERIC) CLINICAL HISTORY: Right forearm SUE s/p surgery FUV TECHNIQUE: 2 views RIGHT forearm in splint (4 images) COMPARISON: Radiographs December 28, 2017; November and July 30, 2021; November 09, 2021 FINDINGS: Bridge plate and screws reducing the ulnotrochlear compartment and plate and screws reducing the perihardware mid ulna diaphysis fracture are intact without adjacent lucency, change in position or bone malalignment. There is callus formation around and decreased conspicuity of the ulnar diaphysis fracture line. Remaining bones are intact. Unchanged findings include diffuse osteopenia, radial head resection and congruent wrist joints. Procedure Note An Vargas MD - 12/02/2021 EXAMINATION: XR FOREARM RIGHT (GENERIC) CLINICAL HISTORY: Right forearm SUE s/p surgery FUV TECHNIQUE: 2 views RIGHT forearm in splint (4 images) COMPARISON: Radiographs December 28, 2017; November and July 30, 2021; November 09, 2021 FINDINGS: Bridge plate and screws reducing the ulnotrochlear compartment and plateand screws reducing the perihardware mid ulna diaphysis fracture are intactwithout adjacent lucency, change in position or bone malalignment. There iscallus formation around and decreased conspicuity of the ulnar diaphysis fractureline. Remaining bones are intact. Unchanged findings include diffuseosteopenia, radial head resection and congruent wrist joints. IMPRESSION Progressive healing of hardware reduced right. Hardware on the diaphysis fracture without radiographic finding of complication. Thank you for letting us participate in the care of this patient. If youare a health care provider and have any questions regarding this report,please contact the number below. For patients who have questions please contactthe health before and after school daycare worker that requested your imaging first. 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
--- OUTSIDE RECORDS SUMMARY | 2024-05-31 17:42 | XMS_ITS | Encounter Summary ---
Author Organization [facility], [address] [facility] [place] [address] Care Team Providers Care Contract Law Specialist Name Role Phone Maryuri Evans MD Primary Care Provider [phone] Encounter Details Date Type Department Care Team (Latest Contact Info) Description 05/25/2021 3:08 PM EDT - 05/25/2021 11:59 PM EDT Hospital Encounter XRay at [address] [place] [address] Aydee Franklin MD [facility] [place] [address] Surgery follow-up Discharge Disposition: Home Social History Tobacco Use [...] Sig Dispensed Refills Start Date End Date acetaminophen (Tylenol) 500 mg Tablet Take 2 [...] 09/01/2020 Elizabeth Pen Needle 32 gauge x 32 [...] BY MOUTH TWICE A DAY 3 07/21/2017 0.9 % sodium chloride (sodium chloride 0.9%) [...] Name Priority Date/Time Associated Diagnosis Comments XR ANKLE MIN 3 VIEWS LEFT Routine 05/25/2021 3:16 PM EDT Surgery follow-up documented in this encounter Results * XR Ankle Min 3 views Left (Generic) (05/25/2021 3:16 PM EDT) Anatomical Region Laterality Modality Ankle Left Digital Radiogra phy Impressions 05/25/2021 3:30 PM EDT Fibular fracture line not clearly seen. The fracture fragments are well aligned. Thank you for letting us participate in the care of this patient. ??If you are a health care provider and have any questions regarding this report, please contact the number below. ??For patients who have questions please contact the health animal care attendant that requested your imaging first. ? Narrative 05/25/2021 3:30 PM EDT EXAMINATION: XR ANKLE MIN 3 VIEWS LEFT (GENERIC) CLINICAL HISTORY: s/p ORIF L ankle TECHNIQUE: AP, oblique and lateral of the left ankle COMPARISON: February 13, 2021 February 07, 2021 FINDINGS: The previously present cast has been removed. Deformity of the inferior fibula is consistent with a prior fracture. The fracture line is not clearly seen. Ossification has formed in the lower aspect of the interosseous ligament. Multiple dustin now project in the soft tissues of the lower extremity. The osseous structures are diffusely demineralized. Enthesophytes are present at the insertion of the Achilles tendon and origin of the plantar fascia on the posterior calcaneus. The ankle mortise is congruent. No gas collection within the soft tissues is noted. Procedure Note Angel Robbins MD - 05/25/2021 EXAMINATION: XR ANKLE MIN 3 VIEWS LEFT (GENERIC) CLINICAL HISTORY: s/p ORIF L ankle TECHNIQUE: AP, oblique and lateral of the left ankle COMPARISON: February 13, 2021 February 07, 2021 FINDINGS: The previously present cast has been removed. Deformity of the inferiorfibula is consistent with a prior fracture. The fracture line is not clearlyseen. Ossification has formed in the lower aspect of the interosseousligament. Multiple dustin now project in the soft tissues of the lower extremity. The osseous structures are diffusely demineralized. Enthesophytes arepresent at the insertion of the Achilles tendon and origin of the plantar fascia onthe posterior calcaneus. The ankle mortise is congruent. No gas collection within the soft tissues is noted. IMPRESSION Fibular fracture line not clearly seen. The fracture fragments are wellaligned. Thank you for letting us participate in the care of this patient. If youare a health care provider and have any questions regarding this report,please contact the number below. For patients who have questions please contactthe health animal care attendant that requested your imaging first. Aydee Franklin MD IMG DX ORDERABLES documented in this encounter Visit Diagnoses Diagnosis Surgery follow-up Follow-up examination, following unspecified surgery documented in this encounter Care Teams Contract Law Specialist Relationship Specialty Start Date End Date Maryuri Evans MD [address] [place] [address] PCP - General 09/23/14 documented as of this encounter
--- OUTSIDE RECORDS SUMMARY | 2024-05-31 17:42 | XMS_ITS | Encounter Summary ---
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 Medication Refill Request Surgery/Injury/Provider: 11/09/21 REPAIR ??NONUNION OR MALUNION, RADIUS OR ULNA ,W/ AUTOGRAFT (WRVU 15.01) - Right MODIFIER LARGE FRAGMENT SYSTEM SYNTHES - Right MODIFIER LOCKING SMALL FRAGMENT SYNTHES - Right REMOVAL OF IMPLANT, DEEP, FOREARM (WRVU 5.96) - Right Christopher Correa (Primary) Ania Moore [facility] Discharged ??Open case All Tasks Complete Medication being requested: Oxycodone Query: Last refill or Original Rx: 11/16/21 Seen within 30 days (if no, than when): Follow Up: 12/02/21 How is this medication being used currently: Oxycodone ran out on Tuesday Patient called ortho resident plastic production machine setter and was refused a refill. Pain level: 9 Bowel concerns: okay Other pain medications used and how: Tylenol Yes 500 2 tablets every 8 hours Gabapentin No Naproxen No OTHER ibuprofen Medication Taper Plan: Taper to the lowest effective maintenance dose, Continue additional scheduled pain medication along with RICE. Teaching done regarding: taking nonnarcotic pain medications, taking the least amount of opioid needed for the least amount of time for adequate pain management and tapering of opioids with verbalized understanding by the patient. Requested Prescription to be sent electronically to [facility](location). Prescription prepped and pended for Soniya DIALLO (provider) review. The patient knows how to contact orthopaedics if any further questions or concerns occur. 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
--- OUTSIDE RECORDS SUMMARY | 2024-05-31 17:42 | XMS_ITS | Encounter Summary ---
[place] [address] Care Team Providers Care Captain Fire Prevention Bureau Name Role Phone Maryuri Evans MD Primary Care Provider [phone] Encounter Details Date Type Department Care Team (Late st Contact Info) Description 03/24/2021 Telephone [place] [id number] Juani Miller [facility] [place] [address] Social History Tobacco Use Types Packs/Day Years [...] encounter Miscellaneous Notes * Telephone Encounter - Juani Miller DO - 03/24/2021 1:35 PM EDT Brief ID Telephone Encounter Notified by Plastic Surgery today that patient developed intractable nausea/vomiting and stopped taking daptomycin. I spoke to Jesenia over the phone. She reports intractable non-bloody, non-bilious nausea/vomiting with associated chest pain from repeated emesis since 03/22/21. She denies fever/chills, abdominal pain,diarrhea, issues with her flap including new or worsening drainage, erythema, swelling, or pain. Her last dose of daptomycin was on 03/23/21. She did not take her daptomycin dose today and wants to discontinue it. We suspect that the nausea/vomiting is likely a side effect of her daptomycin (previously also discussed during ID clinic). Since she is nearly done with her antibiotic course with only 3 days left in her therapy and she is otherwise doing well from a flap standpoint without any other signs or symptoms concerning for worsening infection, it is reasonable to conclude OPAT at this time. Safety labsdrawn from yesterday were unremarkable, which is reassuring. OPAT team was contacted and will arrange for tunneled PICC removal. Patient was updated on above and is in agreement with our plan. She was advised to rest and adequately hydrate. Return precautions were given should her symptoms persist or worsen. Discussed with attending, Dr. Cordoba. Juani Miller DO Infectious Disease Fellow [facility] documented in this encounter Plan of Treatment Not on file documented as of this encounter Visit Diagnoses Not on filedocumented in this encounter Care Teams Captain Fire Prevention Bureau Relationship Specialty Start Date End Date Maryuri Evans MD [address] [place] [address] PCP - General 09/23/14 documented as of this encounter
--- OUTSIDE RECORDS SUMMARY | 2024-05-31 17:42 | XMS_ITS | Encounter Summary ---
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
--- OUTSIDE RECORDS SUMMARY | 2024-05-31 17:42 | XMS_ITS | Encounter Summary ---
Author Organization [facility] Address [facility] [place] [address] Care Team Providers Care Lending Consultant Name Role Phone Maryuri Evans MD Primary Care Provider [phone] Reason for Visit * Auth/Cert Specialty Diagnoses / Procedures Referred By Contac t Referred To Contact Diagnoses Unspecified fracture of shaft of right ulna, subsequent encounter for closed fracture with nonunion ulna nonunion Procedures PRO REPAIR NONUNION RADIUS OR ULNAW/GRAFT REPAIR NONUNION OR MALUNION, RADIUS OR ULNA ,W/ AUTOGRAFT (WRVU 15.01) MODIFIER LARGE FRAGMENT SYSTEM SYNTHES MODIFIER LOCKING SMALL FRAGMENT SYNTHES MODIFIER [facility] Referral ID Status Reason Start Date Expiration Date Visits Re quested Visits Authorized [id number] 1 1 Encounter Details Date Type Department Care Team (Late st Contact Info) Description 11/09/2021 3:01 PM EDT Anesthesia Event [place] [address] Jie Okeefe MD [facility] [place] [address] Melanie Maxwell MD [facility] [address] Anesthesia Record Procedure Summary Procedure Name Responsible Anesthesiologist Anesthesia Start Time Anesthesia Stop Time REPAIR NONUNION OR MALUNION, RADIUS OR ULNA ,W/ AUTOGRAFT (WRVU 15.01) (Right: Arm Lower) Jie Okeefe MD 11/09/21 1501 11/09/21 1727 Events Date Time Event Comment 11/09/2021 1500 Quick Note Glucose 71 gris robertson MD aware IV fluid changed toD51/2 NS Will re check Glucose intra op 1501 AN Verify 1501 Start 1503 An Start Data 1504 An Induction 1506 An Intubation 1508 Anesthesia Ready 1538 Quick Note Glucose 157 IV fluid changed to LR 1554 Break/Relief In I assumed ca re for Break Relief before which we: 1. Identified the patient 2. Identified the responsible provider(s) 3. Reviewed the pertinent medical history 4. Discussed the surgical plan and course 5. Reviewed intra-op anesthesia management and issues during anesthesia 6. Set expectations for the relief (and/or post-procedure) period 7. Allowed opportunity for questions and acknowledgement of understanding Mimi Galindo CRNA 1608 Break/Relief Out 1647 An Tourn Deflated 1714 Extubation/LMA Out 1723 an stop data 1724 Recovery or ICU Handoff Adilene ent care was transferred to the destination unit staff after review of the patient's medical history, current anesthetic/surgical status and plan, according to the Provider Handoff Checklist. 1727 Stop 1748 Meds Name Total IV Lidocaine 30 mg Propofol 150 mg Propofol INF 371.23 mg Dexamethasone 8 mg Ondansetron 4 mg Ketamine 10 mg/mL 4 mg PHENYLephrine 800 mcg ePHEDrine 15 mg ROpivacaine 0.2% 30 mL ceFAZolin (Ancef) 2 g in dextrose 5% 100 mL infusion 2 g lactated ringers infusion 600 mL dextrose 5% and sodium chloride 0.45% in fusion 250 mL * Agents Name O2 Air N2O Sevoflurane (et) * Blood No blood administrations on file. Lines, Drains, and Airways Type Details Placement Removal NPWT 03/13/21; 1506; anterior, lower; residual limb, LUE 03/13/21 1506 by Dorcas Saucedo RN Incision 11/09/21; Right, lower; arm 11/09/21 0000 by Radhika Ta RN Incision 02/08/21; 1014; Left ; ankle; vertical; 04/19/22 (LDA cleanup utility RA#[id number]); 1715 (LDA cleanup utility RA#[id number]) 02/08/21 1014 by Shasta Tejada RN 04/19/22 1715 by Kaylin Hart Incision 03/13/21; 0947; anterior, lower; residual limb, LUE; 04/19/22 (LDA cleanup utility RA#[id number]); 1715 (LDA cleanup utility RA#[id number]) 03/13/21 0947 by Jeyson Armendariz 04/19/22 1715 by Kaylin Hart Incision 03/13/21; 0947; anterior, lower; leg; 04/19/22 (LDA cleanup utility RA#[id number]); 1715 (LDA cleanup utility RA#[id number]) 03/13/21 0947 by Jeyson Armendariz 04/19/22 1715 by Kaylin Hart Incision 03/13/21; 1425; Left , anterior; thigh; 04/19/22 (LDA cleanup utility RA#[id number]); 1715 (LDA cleanup utility RA#[id number]) 03/13/21 1425 by Jeyson Armendariz 04/19/22 1715 by Kaylin Hart Incision 03/16/21; 1443; Right; neck; non-laparascopic puncture; 04/19/22 (LDA cleanup utility RA#[id number]); 1715 (LDA cleanup utility RA#[id number]) 03/16/21 1443 by Ramno Benítez RN 04/19/22 1715 by Kaylin Hart Incision 03/16/21; 1444; Right; clavicle; non-laparascopic puncture; 04/19/22 (LDA cleanup utility RA#[id number]); 1715 (LDA cleanup utility RA#[id number]) 03/16/21 1444 by Ramon Benítez RN 04/19/22 1715 by Kaylin Hart (RETIRED) Peripheral IV Line - Single Lumen 11/09/21; 1426; basilic vein (medial side of arm), left; etoq-zma-fuddac catheter system; 20 gauge, 1 in length; Mimi; 11/09/21; 1800 11/09/21 1426 by Winsome Marc RN 11/09/21 1800 by Khushboo Menezes RN documented in this encounter Social History Tobacco Use Types Packs/Day [...] on file documented as of this encounter OR Notes * Anesthesia Postprocedure Evaluation - Jie Okeefe MD - 11/09/2021 5:48 PM EDT Department of Anesthesiology Post-procedure Note Patient: Jesenia Méndez Procedure Summary Date: 11/09/21 Room / Location: [facility] [address] [place] [address] Anesthesia Start: 150 Anesthesia Stop: 1726 Procedures: REPAIR NONUNION OR MALUNION, RADIUS OR ULNA ,W/ AUTOGRAFT (WRVU 15.01) (Right Arm Lower) MODIFIER LARGE FRAGMENT SYSTEM SYNTHES (Right Arm Lower) MODIFIER LOCKING SMALL FRAGMENT SYNTHES (Right Arm Lower) REMOVAL OF IMPLANT, DEEP, FOREARM (WRVU 5.96) (Right Arm Lower) Diagnosis: (ulna nonunion) Surgeons: Christopher Correa MD Responsible Provider: Jie Okeefe MD Anesthesia Type: general ASA Status: 2 All Anesthesia Providers: Anesthesiologist: Jie Okeefe MD SUPERINTENDENT MAINTENANCE: Tamra Lowery CRNA Vitals Value Taken Time BP 119/68 11/09/21 1745 Temp 36.1 ??C (97 ??F) 11/09/21 1718 Pulse Resp 18 11/09/21 1745 SpO2 96 % 11/09/21 1745 Pain Level 0 11/09/21 1745 Patient Location: PACU/[facility] Level of Consciousness: Awake and Alert Pain Management: Satisfactory Analgesia PONV: None Cardiovascular Status: At Baseline and Hemodynamically Stable Respiratory Status: At Baseline and Room Air Postoperative Fluid Status: Intravascular EUvolemia Possible Anesthetic Complications: NONE apparent at time of evaluation Final Primary Anesthesia Type: General (The anesthetic type performed was the same as planned.) Comments: No problems today! Block working well. Last sugar 100s, feels fine, and now eating and drinking on her own. Will check BG Again when she goes home JIE OKEEFE MD * Anesthesia Procedure Notes - Melanie Maxwell - 11/09/2021 2:53 PM EDT Associated Order(s): Anesthesia Block Anesthesia Block Date/Time: 11/09/2021 2:44 PM Performed by: Melanie Maxwell MD Authorized by: Jie Okeefe MD Start Time: 11/09/2021 2:44 PM End Time: 11/09/2021 2:53 PM Patient Location: Block Room The patient was greeted; the risks and benefits of the procedure were reviewed. Indication: Post-op Pain Control Post-op pain management at the request of surgeon. Block Type: Axillary plexus block Laterality: Left Position: Supine Prep: Chlorhexidine, patient draped and mask, cap, sterile gloves, hand hygeine Skin Anesthetic: Skin Anesthetic: Lidocaine 1% dose: 2 Block Technique: SonoPlex 21 10 cm Ultrasound Guided: YES and in-plane Ultrasound Image Saved Ultrasound guidance was used to identify the targeted neuronal structure. Ultrasound was also used to identify needle position and to identify tissue (bone, muscle, and blood vessels) to prevent inadvertent intraneural or intravascular needle placement and injection. The spread of local anesthetic was confirmed with live ultrasound imaging. Single-Shot: Single-shot Local Anesthetic Volume(s) Injected for Nerve Block: ROpivacaine 0.2% - Perineural 30 mL - 11/09/2021 2:44:00 PM Staff: Resident/SUPERINTENDENT MAINTENANCE:: Melanie Maxwell MD Attending Physician:: Jie Okeefe MD * Anesthesia Preprocedure Evaluation - Jie Okeefe MD - 11/06/2021 10:56 AM EDT Pre-Anesthesia Evaluation for: Jesenia Méndez a 60 y.o. female. Procedure(s): REPAIR NONUNION OR MALUNION, RADIUS OR ULNA ,W/ AUTOGRAFT (WRVU 15.01) MODIFIER LARGE FRAGMENT SYSTEM SYNTHES MODIFIER LOCKING SMALL FRAGMENT SYNTHES Patient Active Problem List Diagnosis Date Noted ??? Surgery follow-up 05/26/2021 ??? Ankle wound, left, sequela 03/04/2021 ? ? S/P Left ankle I&D for abscess and wound dehiscence, 02/08/21 (Dr Quiñones) and 02/10/21 (Abdirahman); 02/12 + 02/14 ( Dr. Capellan) 02/07/2021 ??? Closed fracture of left ankle with routine healing 01/13/2021 ??? H/O insulin dependent diabetes mellitus 01/02/2021 ??? H/O: depression 01/02/2021 ??? Hypothyroidism 01/02/2021 ??? h/o chronic headaches 01/02/2021 ??? Closed fracture of shaft of right ulna with known elbow arthrodesis RIGHT 01/02/2021 ??? Chronic pain in left shoulder 03/06/2020 ??? S/P R elbow fusion on 12/14/17 Correa 2017 ??? Psoriasis 09/23/2014 No past medical history on file. Past Surgical History: Procedure Laterality Date ??? IR LINE OR TUBE REMOVAL IN RECOVERY ROOM 03/26/2021 IR Line or Tube Removal in Recovery Room 03/26/2021 Mono Felipe MD [facility] INTERVENTIONL RAD ??? IR TUNNELED CENTRAL VENOUS ACCESS NON-DIALYSIS 03/16/2021 IR Tunneled Central Venous Access Non-Dialysis 03/16/2021 Yunior Flores MD [facility] INTERVENTIONLRAD ??? PRO ALVEOLOPLASTY W EXTRACTIONS, 4 OR MORE TEETH, PER QUADRANT N/A 09/11/2019 ALVEOPLASTY,IN CONJUNCTION WITH EXTRACTIONS,PER QUADRANT,ENT (WRVU 4.06) performed by Wesley Jacobo MD at [facility] OSC ? ? PRO DEBRIDEMENT BONE MUSCLE &/FASCIA 20 SQ CM/< Left 02/14/2021 DEBRIDEMENT SKIN, SUBCU, MUSCLE, BONE, LOWER EXTREMITY (WRVU 4.1) performed by Sabrina Capellan MDat [facility] MAIN OR ? ? PRO DEBRIDEMENT SUBCUTANEOUS TISSUE 20 SQCM/< Left 02/08/2021 DEBRIDEMENT SKIN AND SUBCU, LOWER EXTREMITY (WRVU 1.01) performed [facility] ? ? PRO DEBRIDEMENT SUBCUTANEOUS TISSUE 20 SQCM/< Left 02/10/2021 DEBRIDEMENT SKIN AND SUBCU, LOWER EXTREMITY (WRVU 1.01) performed by Jacobo De La Cruz MD at [facility] MAIN OR ? ? PRO DEBRIDEMENT SUBCUTANEOUS TISSUE 20 SQCM/< Left 02/12/2021 DEBRIDEMENT SKIN AND SUBCU, LOWER EXTREMITY (WRVU 1.01) performed by Sabrina Capellan MD at [facility] MAIN OR ??? PRO FREE FASCIAL FLAP W MICROVASC ANAST Left 03/13/2021 @FLAP, FREE FASCIAL, W/ MICRO ANASTOMOSIS, LOWER EXTREMITY (WRVU 36.9) performed by Aydee Franklin MD at [facility] MAIN OR ??? PRO FUSION/GRAFT OF ELBOW JOINT Right 2017 ARTHRODESIS, ELBOW JOINT WITH AUTOGENOUS GRAFT (WRVU 14.32) performed by Christopher Correa MD at [facility] MAIN OR ??? PRO REMOVAL DEEP IMPLANT Right 2017 REMOVAL OF IMPLANT, DEEP, ELBOW (WRVU 5.96) performed by Christopher Correa MD at [facility] MAIN OR ??? PRO REMOVAL ERUPTED TOOTH WITH ELEVATION OF MUCOPERIOSTEAL FLAP Bilateral 09/11/2019 SURGICAL EXTRACTIONS REQUIRING ELEVATION OF MUCOPERIOSTEAL FLAP AND REMOVAL OF BONE OR SECTION OF TOOTH (WRVU 1.09) performed by Wesley Jacobo MD at [facility] OSC ? ? PRO SPLIT GRFT TRUNK, ARM, LEG <100SQCM Left 03/13/2021 SPLIT THICK SKIN GRAFT,100 SQ CM OR LESS, LEGS (WRVU 9.9) [facility] Social History Tobacco Use ??? Smoking status: Never Smoker ??? Smokeless tobacco: Never Used Substance Use Topics ??? Alcohol use: No Social History Substance and Sexual Activity Drug Use No Allergies Allergen Reactions ??? Latex Rash ??? Erythromycin Lactobionate Nausea Only ??? Metformin Nausea Only ??? Red Blood Cells Other (See Comments) Antibodies-Difficult to Crossmatch DO NOT REMOVE Please contact the Blood Bank at [phone] for questions. ??? Pollen Extracts Other (See Comments) Rhinusitus ??? Trazodone Other (See Comments) Hallucination ??? Adhesive Rash Skin Rash ??? Lisinopril Other (See Comments) Cough. Medications: MAR and/or home medications have been reviewed. Physical Exam: Preprocedure Vitals Current as of 11/06/21 1056 No BP, pulse, respiration, SpO2, or temperature recorded. Height: Weight: BMI: IBW: Airway Assessment: Mallampati: I TM distance: >3 FB Neck ROM: full Cardiovascular Assessment: Rhythm: regular Rate: normal Pulmonary Assessment: unlabored breathing Dental Assessment: (+) edentulous Misc Assessment: IV access: Peripheral line Last Filed Perioperative Cognitive Screening None Anesthesia Plan: ASA 2 general, with a(n) intravenous induction Jesenia is a 60 yo F with PMH HTN (losartan, hydroxyzine), DM (glipizide, lantus, liraglutide), hyperlipidemia (diet-controlled), GERD (pantoprazole), MDD (sertraline, Wellbutrin), hypothyroidism (levothyroxine), psoriasis and chronic headaches (topiramate, gabapentin) here for right nonunion repair. Previously tolerated anesthesia Plan: pre-op block, standard asa monitoring, GA. Of note, has pre-existing ulnar tingling on / off BG on arrival 58. Took all of her insulin last night and none this am. Didn't take orals this am. Feels well. Got 10 grams of DEXTROSE and recheck 71. Will continue to give IVF w/ D5 in OR and recheck Region - Other Informed Consent: Anesthetic plan and risks discussed with patient. Use of blood products discussed with patient who consented to blood products. Plan discussed with resident and attending. Anesthesia Screening documented in this encounter Plan of Treatment Not on file documented as of this encounter Procedures Procedure Name Priority Date/Time Associated Diagnosis Comments ANESTHESIA BLOCK Routine 11/09/2021 2:44 PM EDT documented in this encounter Results * Anesthesia Block (11/09/2021 2:44 PM EDT) Narrative Jie Okeefe MD - 11/09/2021 2:44 PM EDT Melanie Maxwell MD ? 11/09/2021 ??2:54 PM Anesthesia Block Date/Time: 11/09/2021 2:44 PM Performed by: Melanie Maxwell MD Authorized by: Jie Okeefe MD Start Time: ??11/09/2021 2:44 PM End Time: ??11/09/2021 2:53 PM Patient Location: ??Block Room The patient was greeted; the risks and benefits of the procedure were reviewed. ?? Indication: ??Post-op Pain Control Post-op pain management at the request of surgeon. ?? Block Type: ??Axillary plexus block Laterality: ??Left Position: ??Supine Prep: ??Chlorhexidine, patient draped and mask, cap, sterile gloves, hand hygeine Skin Anesthetic: ??Skin Anesthetic: ??Lidocaine 1% ??dose: ??2 Block Technique: ?? SonoPlex ?? 21 ?? 10 cm ??Ultrasound Guided: ??YES and in-plane ??Ultrasound Image Saved ?Ultrasound guidance was used to identify the targeted neuronal structure. Ultrasound was also used to identify needle position and to identify tissue (bone, muscle, and blood vessels) to prevent inadvertent intraneural or intravascular needle placement and injection. The spread of local anesthetic was confirmed with live ultrasound imaging. ?Single-Shot: ??Single-shot Local Anesthetic Volume(s) Injected for Nerve Block: ?? ROpivacaine 0.2% - Perineural 30 mL - 11/09/2021 2:44:00 PM Staff: ??Resident/SUPERINTENDENT MAINTENANCE:: ??Melanie Maxwell MD ??Attending Physician:: ??Jie Okeefe MD Jie Okeefe MD WAITER/WAITRESS ROOM SERVICE [facility] documented in this encounter Visit Diagnoses Not on filedocumented in this encounter Administered Medications Inactive Administered Medications - up to 3 most recent administrations Medication Order MAR Action Action Date Dose Rate Site ceFAZolin (Ancef) 2 g in dextrose 5% 100 mL infusion 2 g, Intravenous, EVERY 3 HOURS, 1 dose, First dose on Tue11/09/21 at 1415, Administer over 30 Minutes, Re-dose after 3 hours., Intra-Operative (Intra-Procedure), Indication for (Active or Suspected): Prophylaxis Given 11/09/2021 3:10 PM EDT 2 g dexamethasone (Decadron) injection Intravenous, PRN, Starting on Tue11/09/21 at 1501, Until Tue11/09/21 at 1748, Anesthesia Intra-op, Routine Given 11/09/2021 3:01 PM EDT 8 mg dextrose 5% and sodium chloride 0.45% infusion Intravenous, CONTINUOUS PRN, Starting on Tue11/09/21 at 1500, Until Tue11/09/21 at 1748, Anesthesia Intra-op New Bag 11/09/2021 3:00 PM EDT ePHEDrine sulfate (5 mg/mL) multi-dose injection Intravenous, PRN, Starting on Tue11/09/21 at 1636, Until Tue11/09/21 at 1748, Anesthesia Intra-op, Routine Given 11/09/2021 4:51 PM EDT 7.5 mg Given 11/09/2021 4:36 PM EDT 7.5 mg ketamine (Ketalar) (10 mg/mL) IV bolus injection (Anesthesia) Intravenous, PRN, Starting on Tue11/09/21 at 1653, Until Tue11/09/21 at 1748, Anesthesia Intra-op Given 11/09/2021 4:53 PM EDT 4 mg lactated ringers infusion 1,000 mL, at 100 mL/hr, Intravenous, CONTINUOUS, Starting on Tue11/09/21 at 1415, Until Tue11/09/21 at 1832, Day of Surgery (Day of Procedure) New Bag 11/09/2021 3:40 PM EDT New Bag 11/09/2021 2:30 PM EDT 1,000 mLs 100 mL/hr lidocaine (pf) (Xylocaine) (20 mg/mL) 2% injection syringe Intravenous, PRN, Starting on Tue11/09/21 at 1501, Until Tue11/09/21 at 1748, Anesthesia Intra-op, Routine Given 11/09/2021 3:01 PM EDT 30 mg ondansetron (pf) (Zofran) (2 mg/mL) injection Intravenous, PRN, Starting on Tue11/09/21 at 1513, Until Tue11/09/21 at 1748, Anesthesia Intra-op, Routine Given 11/09/2021 3:13 PM EDT 4 mg PHENYLephrine in NS (PF) (JOHN-SYNEPHRINE) 0.8 mg/10 mL (80 mcg/mL) multi-dose injection Syrg Intravenous, PRN, Starting on Tue11/09/21 at 1514, Until Tue11/09/21 at 1748, Anesthesia Intra-op, Routine Given 11/09/2021 4:33 PM EDT 80 mcg Given 11/09/2021 4:25 PM EDT 80 mcg Given 11/09/2021 4:18 PM EDT 80 mcg propofoL (Diprivan) (10 mg/mL) infusion Intravenous, CONTINUOUS PRN, Starting on Tue11/09/21 at 1509, Until Tue11/09/21 at 1748, Anesthesia Intra-op, Routine Rate/Dose Change 11/09/2021 4:08 PM EDT 30 mcg/kg/min 13.806 mL/hr New Bag 11/09/2021 3:09 PM EDT 50 mcg/kg/min 23.01 mL/h r propofoL (Diprivan) 10 mg/mL bolus injection (Anesthesia) Intravenous, PRN, Starting on Tue11/09/21 at 1506, Until Tue11/09/21 at 1748, Anesthesia Intra-op Given 11/09/2021 3:06 PM EDT 150 mg ROpivacaine (Naropin) 0.2% (2 mg/mL) bolus Perineural, Starting on Tue11/09/21 at 1444, Until Tue11/09/21 at 1444, Anesthesia Intra-op, Routine Given 11/09/2021 2:44 PM EDT 30 mLs documented in this encounter Care Teams Lending Consultant Relationship Specialty Start Date End Date Maryuri Evans MD [address] [place] [address] PCP - General 09/23/14 documented as of this encounter
--- OUTSIDE RECORDS SUMMARY | 2024-05-31 17:42 | XMS_ITS | Encounter Summary ---
Author Organization [facility] [place] [address] Care Team Providers Care Teacher Drama Name Role Phone Maryuri Evans MD Primary Care Provider [phone] Reason for Referral * Diagnostic Test (Routine) - Closed Specialty Diagnoses / Procedures Referred By Conthyun t Referred To Contact Radiology Diagnoses Receiving intravenous antibiotic treatment as outpatient Postoperative wound infection Procedures IR Line or Tube Removal in Recovery Room Radha Cordoba [facility] [place] [address] [place] [address] Referral ID Status Reason Start Date Expiration Date V isits Requested Visits Authorized [id number] Closed Specialty Service Requested 03/24/2021 09/24/2022 1 1 Encounter Details Date Type Department Care Team (Late st Contact Info) Description 03/24/2021 Orders [place] [id number] Radha Cordoba [facility] [place] [address] Receiving intravenous antibiotic treatment as outpatient; Postoperative wound infection Social History Tobacco Use Types Packs/Day Years [...] on file documented as of this encounter Results * IR Line or Tube Removal in Recovery Room (03/26/2021 11:26 AM EDT) Anatomical Region Laterality Modality X-Ray Angiograph y Narrative 03/26/2021 3:58 PM EDT IR PROCEDURE NOTE Procedure: Removal of tunneled central venous catheter. Indication for Procedure: 60-year-old with surgical site infection for line removal. Technique: ??The patient was positioned supine on the bed. The right neck base and upper chest with existing hemodialysis catheter was prepped and draped. ??The catheter was then withdrawn with gentle pressure and removed without incident. A sterile dressing was applied to the site. Medications: None. EBL: <5cc Complications: ??No immediate Impression: Successful right tunneled central catheter removal. Plan: Keep bandage in place, clean and dry over next 48 hrs. Resident/Fellow: Dr. Felipe Attending: Dr. Alexis I, Dr. Alexis, was present throughout the procedure. I was present during the intraservice time as documented by the IR Nurse. ?? Radha Patricio Cordoba DO [facility] IR ORDERABLES documented in this encounter Visit Diagnoses Diagnosis Receiving intravenous antibiotic treatment as outpatient Encounter for long-term (current) use of antibiotics Postoperative wound infection Other postoperative infection Receiving intravenous antibiotic treatment as outpatient Encounter for long-term (current) use of antibiotics Postoperative wound infection Other postoperative infection documented in this encounter Care Teams Teacher Drama Relationship Specialty Start Date End Date Maryuri Evans MD [address] [place] [address] PCP - General 09/23/14 documented as of this encounter
--- OUTSIDE RECORDS SUMMARY | 2024-05-31 17:42 | XMS_ITS | Encounter Summary ---
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, unspecified fracture morphology, subsequent encounter WasLiane radford, [address] [place] [address] [facility] [address] [place] [address] Referral ID Status Reason Start Date Expiration Date V isits Requested Visits Authorized [id number] Closed Evaluate and Treat 12/30/2021 12/30/2022 12 12 Reason for Visit * Reason Comments Follow Up Surgery R Radius/Ulna non-un ion, SUE 11/09/21 (Madeline) Encounter Details Date Type Department Care Team (Late st Contact Info) Description 12/30/2021 2:00 PM EDT Office [place] [phone] Dorina Campbell APRN [facility] [place] [address] 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, unspecified fracture morphology, subsequent encounter (Primary Dx) Social History Tobacco Use Types Packs/Day Years [...] Sign Reading Time Taken Comments Blood Pressure 131/63 12/30/2021 1:19 PM EDT Pulse 73 12/30/2021 1:19 PM EDT Temperature - - Respiratory Rate 16 12/30/2021 1:19 PM EDT Oxygen Saturation - - Inhaled Oxygen Concentration - - Weight 76.6 kg (168 lb 12.8 oz) 12/30/2021 1:19 PM EDT Height 154.9 cm (5' 1) 12/30/2021 1:19 PM EDT Body Mass Index 31.89 12/30/2021 1:19 PM EDT documented in this encounter Progress Notes * Dorina Campbell, SREE - 12/30/2021 2:00 PM EDT Case Date: 11/09/2021 ?? Surgeon: * Christopher Correa MD - ?? Procedure(s) : REPAIR NONUNION OR MALUNION, RADIUS OR ULNA ,W/ AUTOGRAFT (Right) MODIFIER LARGE FRAGMENT SYSTEM SYNTHES (Right) MODIFIER LOCKING SMALL FRAGMENT SYNTHES (Right) REMOVAL OF IMPLANT, DEEP, FOREARM (Right) ?? CHIEF COMPLAINT: 6 weeks S/P above procedure HISTORY OF PRESENT ILLNESS: Ms. Méndez a 61 y.o. year old female comes into clinic today for appointment ~ 6 weeks s/p the above procedures. Jesenia is doing very well, she feels improved from prior to surgery. Her pain is improved. Jesenia she has remained in her splint. She does note some paresthesias; prior to surgery she had numbness in her pinky she now has a tingling sensation into her ring, middle and index finger (worse on the palmar side), and numbness in the distal IP of the thumb (non-dermatomal pattern). Denies neck pain. She reports these symptoms are bothersome but she is able to manage. Jesenia is unable to hold a cup of coffee for an extended period due to perceived weakness. Ms. Méndez denies any fever/chills or other constitutional signs of infection. No interval falls or injuries. Patient's medications, allergies, past medical, surgical, social and family histories were reviewedand updated as appropriate. ROS: Denies fever, chills, nausea, vomiting, vision change, shortness of breath, chest pain, visionchanges, headaches, bowel or bladder problem, ear, nose, sinus problem, neuro or psychiatric, or endocrine disorder not addressed above. PHYSICAL EXAMINATION: Able to supinate and pronate to about 45 degrees in each direction Wrist extension: 70 Wrist flexion: 60 Negative tinel's over median and ulnar nerve Negative phalen's Finger ab/aduction 5/5 Thumb/index finger opposition 5/5 Negative spurlings Neck ROM WNL Ms. Méndez a 61 y.o. female is alert and oriented.She appears in no acute discomfort and is resting comfortably in a chair in the exam room. Wound Inspection: Surgical incision is well healed no asael-incisional erythema or evidence of infection. Neuro: global hand numbness/decreased light touch sensation of the entire hand. Yet, motor intact. Able to wiggle the fingers, Wrist extension 5/5. Intrinsics intact. Axillary (sensory and motor intact), antebrachial cutaneous intact, Radial, ulna and median motor intact (see above notation regarding global hand numbness). ROM: The elbow is fused. See above neuro-motor exam. Imaging: Post op x-rays out of cast reviewed image by image in the office today Reveals no hardwarecomplications with ulna Fx non-union with incorporating bone graft. ASSESSMENT: 60 year old Female who is 6 weeks status post op for above surgical procedure. no hardware complications, patient has paresthesias into her hand in a non-dermatomal pattern PLAN: I reviewed my findings in the office today with both x-rays and clinical exam. At this time, she may discontinue her splint. She should avoid heavy lifting and pushing off on her arm. She will meet with OT to work on gentle wrist ROM and nerve flossing. Pt agrees, questions solicited/answered, will return as scheduled and as needed for concerns or questions. Pt understands they may also call us prn for above. 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 ??Progressive healing of proximal ulnar periprosthetic fracture without radiographic evidence of complication. 2. ??Arthrodesis of elbow joint with visible joint space. 3. ??Decreased bone mineralization, consider supplementary DXA characterization if indicated. I have personally reviewed the image(s) and the resident's interpretation and agree with the findings, Pebbles Samson MD at 02/10/2022 2:28 PM Thank you for letting us participate in the care of this patient. ??If you are a health care provider and have any questions regarding this report, please contact the number below. ??For patients who have questions please contact the health career technical counselor that requested your imaging first. ? Electronically signed by: Pebbles Samson MD, [facility] ([phone]), at 02/10/2022 2:28 PM Narrative 02/10/2022 2:28 PM EDT EXAMINATION: XR FOREARM RIGHT (GENERIC) CLINICAL HISTORY: post op follow up TECHNIQUE: 2 views RIGHT forearm. AP and lateral views. COMPARISON: Right forearm and elbow radiographs dating back to 07/30/2021, most recently 12/30/2021 FINDINGS: Redemonstrated arthrodesis at the elbow joint, stabilize by plate and screw in distal humerus and olecranon. Additional Plate and screw fixation hardware spanning the proximal ulna shaft, crossing known periprosthetic fracture of the proximal ulnar shaft. Hardware is intact and without evidence of loosening. A partially obscures visualization of proximal ulnar shaft fracture, however there appears to be increased callus formation and bridging at the fracture margins. Alignment is unchanged. No new fracture. The elbow joint space remains partially visible. Procedure Note Pebbles Samson MD - 02/10/2022 EXAMINATION: XR FOREARM RIGHT (GENERIC) CLINICAL HISTORY: post op follow up TECHNIQUE: 2 views RIGHT forearm. AP and lateral views. COMPARISON: Right forearm and elbow radiographs dating back to 07/30/2021, mostrecently 12/30/2021 FINDINGS: Redemonstrated arthrodesis at the elbow joint, stabilize by plate andscrew in distal humerus and olecranon. Additional Plate and screw fixation hardware spanning the proximal ulnashaft, crossing known periprosthetic fracture of the proximal ulnar shaft. Hardware is intact and without evidence of loosening. A partiallyobscures visualization of proximal ulnar shaft fracture, however there appears conner increased callus formation and bridging at the fracture margins. Alignmentis unchanged. No new fracture. The elbow joint space remains partially visible. IMPRESSION 1. Progressive healing of proximal ulnar periprosthetic fracturewithout radiographic evidence of complication. 2. Arthrodesis of elbow joint with visible joint space. 3. Decreased bone mineralization, consider supplementary DXAcharacterization if indicated. I have personally reviewed the image(s) and the resident's interpretationand agree with the findings, Pebbles Samson MD at 02/10/2022 2:28 PM Thank you for letting us participate in the care of this patient. If youare a health care provider and have any questions regarding this report,please contact the number below. For patients who have questions please contactthe health career technical counselor that requested your imaging first. 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
--- OUTSIDE RECORDS SUMMARY | 2024-05-31 17:42 | XMS_ITS | Encounter Summary ---
Author Organization [facility] Address [facility] [place] [address] Care Team Providers Care Business And Marketing Teacher Name Role Phone Maryuri Evans MD Primary Care Provider [phone] Reason for Visit * Reason Comments Follow-up DOS:11-09-21 Right ra dius/ulna nonunion,SUE (HENRIK) Encounter Details Date Type Department Care Team (Late st Contact Info) Description 12/02/2021 10:20 AM EDT Office [place] [address] Dorina Campbell, SREE [facility] [place] [address] 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 MR#: [id number] DATE OF VISIT: 12/02/2021 Case Date: 11/09/2021 ?? Surgeon: * Christopher Correa MD - ?? Procedure(s) : REPAIR NONUNION OR MALUNION, RADIUS OR ULNA ,W/ AUTOGRAFT (Right) MODIFIER LARGE FRAGMENT SYSTEM SYNTHES (Right) MODIFIER LOCKING SMALL FRAGMENT SYNTHES (Right) REMOVAL OF IMPLANT, DEEP, FOREARM (Right) ?? CHIEF COMPLAINT: 16 days S/P above procedure HISTORY OF PRESENT ILLNESS: Ms. Honey rocha 60 y.o. year old female comes into clinic today for appointment 16 days s/p the above procedures. Overall, doing well. Ms. Méndez denies any fever/chills or other constitutional signs of infection. She does report global hand numbness (non-dermatomal pattern) and weakness with holding a coffee cup. The patient has not noticed any abnormal drainage fromher incision or increased redness or discomfort. No interval falls or injuries. No GI or complaints. No calf pain, cp or sob. Patient's medications, allergies, past medical, surgical, social and family histories were reviewedand updated as appropriate. ROS: Denies fever, chills, nausea, vomiting, vision change, shortness of breath, chest pain, visionchanges, headaches, bowel or bladder problem, ear, nose, sinus problem, neuro or psychiatric, or endocrine disorder not addressed above. Questionnaire Responses: NONE PHYSICAL EXAMINATION: Vitals: 12/02/21 1016 BP: 144/64 BP Location ([facility]): Left arm Patient Position: Sitting BP Cuff Sizes: Adult (25-34 cm) Pulse: 87 Weight: 76.7 kg (169 lb) Height: 154.9 cm (5' 1) Body mass index is 31.93 kg/m??. Ms. Honey rocha 60 y.o. female is alert and oriented.She appears in no acute discomfort and is resting comfortably in a chair in the exam room. Wound Inspection: Surgical incision is well approximated with no asael-incisional erythema or evidence of infection. Unable to part the wound with my fingers. There is dried eschar/scab at the most proximal aspect of the surgical incision. Surgical sutures removed by our staff tolerated well. Neuro: there is global hand numbness/decreased light touch sensation of the entire hand. Yet, motorintact. Able to wiggle the fingers, Wrist extension 5/5. Intrinsics intact. Axillary (sensory and motor intact), antebrachial cutaneous intact, Radial, ulna and median motor intact (see above notation regarding global hand numbness). ROM: The elbow is fused. See above neuro-motor exam. Imaging: Post op x-rays in plaster reviewed image by image in the office today reveals no hardware complications with ulna Fx non-union with incorporating bone graft. ASSESSMENT: 60 year old Female who is 16 days post op for above surgical procedure. No hardware complications. PLAN: I spent approximately 15 minutes of this 20 minute visit discussing Ms. Méndez surgical procedure and future plan. At this time, We removed her sutures. Ok to shower with padding dry the incision. A removable plaster splint was fabricated. Ok to work on gentle non-weight bearing exercises of the hand and fingers to avoid stiffness. Cool packs and acetaminophen prn for pain no greater than3 grams per day. Ok to refill oxycodone at bedtime only try to wean as tolerated. Advised watchful waiting regarding hand numbness, if this persists consider neurology consult. Pt agrees, questions solicited/answered, will return as scheduled and as needed for concerns or questions. Pt understands they may also call us prn for above. PER Dr. Correa: Postop plan will be splint for 6 weeks followed by gentle wrist range of motion. We were able to discuss the following plan: 1. Remain non-weight bearing. No lifting more than a cup of coffee 2. Ok to remove splint for showering with padding dry the incision. Otherwise the splint should be on at all times. 3. Ok to work on gentle ROM of the fingers. 4. Cool packs and acetaminophen prn for pain no greater than 3 grams per day. 5. Try to wean from oxycodone to be used at bedtime only. 6. Dr. Correa's team in 4 weeks with right forearm x-ray I have already ordered this as a future order in the computer. ?f/u [address] Correa's team with radius/ulna x-rays out of plaster. Sooner prn I have already ordered this as a future order in the computer. documented in this encounter Plan of Treatment Not on file documented as of this encounter Results * XR Forearm Right (Generic) (12/30/2021 1:05 PM EDT) Anatomical Region Laterality Modality Forearm Right Digital Radiogra phy Impressions 12/30/2021 2:37 PM EDT Progressive healing of hardware reduced right ulna perihardware fracture without radiographic finding of complication. Thank you for letting us participate in the care of this patient. ??If you are a health care provider and have any questions regarding this report, please contact the number below. ??For patients who have questions please contact the health home day care provider that requested your imaging first. ? Narrative 12/30/2021 2:37 PM EDT EXAMINATION: XR FOREARM RIGHT (GENERIC) CLINICAL HISTORY: right proximal ulna fx non-union ORIF with bone graft, x-ray out of splint ? healing ? change from previous x-ray TECHNIQUE: 2 views RIGHT forearm COMPARISON: Right elbow radiographs 2017; right forearm radiographs November 09 and December 02, 2021 FINDINGS: Plates and screws for elbow arthrodesis and perihardware ulnar fracture are intact without adjacent lucency, change in position or new fracture. The ulnar diaphyseal fracture has increased callous volume without visibility of the fracture line. Diffuse bone demineralization and elbow joint osseous fusion are unchanged. Wrist joints are congruent. No focal soft tissue abnormality. Procedure Note An Vargas MD - 12/30/2021 EXAMINATION: XR FOREARM RIGHT (GENERIC) CLINICAL HISTORY: right proximal ulna fx non-union ORIF with bone graft,x-ray out of splint ? healing ? change from previous x-ray TECHNIQUE: 2 views RIGHT forearm COMPARISON: Right elbow radiographs 2017; right forearm radiographs November 09and December 02, 2021 FINDINGS: Plates and screws for elbow arthrodesis and perihardware ulnar fractureare intact without adjacent lucency, change in position or new fracture. Theulnar diaphyseal fracture has increased callous volume without visibility ofthe fracture line. Diffuse bone demineralization and elbow joint osseous fusion areunchanged. Wrist joints are congruent. No focal soft tissue abnormality. IMPRESSION Progressive healing of hardware reduced right ulna perihardware fracturewithout radiographic finding of complication. Thank you for letting us participate in the care of this patient. If youare a health care provider and have any questions regarding this report,please contact the number below. For patients who have questions please contactthe health home day care provider that requested your imaging first. 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
--- OUTSIDE RECORDS SUMMARY | 2024-05-31 17:42 | XMS_ITS | Encounter Summary ---
Author Organization [facility] Address [facility] [place] [address] Care Team Providers Care Finance Teacher Name Role Phone Maryuri Evans MD Primary Care Provider [phone] Reason for Visit * Reason Comments Follow-up XR//Rt Closed displa amada transverse fracture of shaft of ulna Encounter Details Date Type Department Care Team (Late st Contact Info) Description 05/07/2021 2:40 PM EDT Office [place] [address] Dorina Campbell, WEDDING DECORATOR [facility] [place] [address] Closed displaced transverse fracture of shaft of right ulna with routine healing, subsequent encounter (Primary Dx) Social History Tobacco [...] Sign Reading Time Taken Comments Blood Pressure 123/69 05/07/2021 2:45 PM EDT Pulse - - Temperature - - Respiratory Rate - - Oxygen Saturation - - Inhaled Oxygen Concentration - - Weight 73.9 kg (163 lb) 05/07/2021 2:45 PM EDT Height 157.5 cm (5' 2) 05/07/2021 2:45 PM EDT Body Mass Index 29.81 05/07/2021 2:45 PM EDT documented in this encounter Progress Notes * Dorina Campbell, WEDDING DECORATOR - 05/07/2021 2:40 PM EDT Chief complaint: Right ulna Fx with known previous arthrodesis Problem List Items Addressed This Visit S/P R elbow fusion on 12/14/17 Correa Relevant Orders Other Visit Diagnoses Closed displaced transverse fracture of shaft of right ulna, - Primary Relevant Orders XR Elbow 3 Views Right (GENERIC) (Completed) History of present illness: Jesenia Méndez is a 60 y.o. year-old female + diabetic, non-smoker with multiple medical co-morbidities. Jesenia is now about 6 months post injury. She is doing ok. Pain is mild about the proximal ulna. She is now using the bone stimulator and feels like this has made a difference with pain. No interval falls or injuries. She is working with plastic surgery for known left ankle Fx infection requiring multiple washouts and skin grafting surgery. She is scheduled to see plastic surgery tomorrow and anxious to start weight bearing. Patient's medications, allergies, past medical, surgical, social and family histories were reviewedand updated as appropriate. Review of systems: No chest pain or shortness of breath No fevers, night sweats or chills Questionnaire Responses: NONE Vital signs: Vitals: 05/07/21 1445 BP: 123/69 BP Location (NBP): Right arm Patient Position: Sitting BP Cuff Sizes: Adult (25-34 cm) Weight: 73.9 kg (163 lb) Height: 157.5 cm (5' 2) Body mass index is 29.81 kg/m??. Physical Exam: 60 year old Female in NAD. Non-toxic appearing. Here with her Father. Right elbow exam: Inspection: Mild swelling about the proximal ulna at the fracture site. No erythema or evidence of infection. No Fx motion appreciated. Palpation: Mild TTP at the proximal ulna at the fracture site. No ROM about the elbow due to arthrodesis status. Axillary, Radial, ulna and median neuro-motor intact. Hand is sensate, well perfused, distal pulsesare 2+ and equal. Imaging: Personal review and interpretation of the patient's imaging reveals: Updated right elbow x-ray reviewed image by image in the office today reveals ongoing healing and bridging callous of the proximal ulna Fx with no change in fracture position. Formal report in [facility] as follows: FINDINGS: Postoperative changes status post elbow arthrodesis with a plate-screw construct traversing the distal humerus and proximal ulna. The hardware is intact. No screw backout. There appears to be solid bony fusion across the humerus and ulna. Unchanged appearance of the eroded radial head. Fracture of the ulna around the most distal screw is unchanged in alignment with some callus formation. ?? IMPRESSION Status post elbow arthrodesis with periprosthetic fracture along the distal margin of the fusion hardware. The degree of healing at the fracture site is similar when compared to 03/20/2021. Assessment: 60 y.o. year-old female diabetic with multiple medical co- morbidities who is ~ 6 monthss/p right proximal ulna periprosthetic fracture at the distal arthrodesis plate. Jesenia is with lesspain with conservative management and bone stimulator use. No clinical evidence of infection. Plan: I reviewed my findings in the office today with both x-rays and clinical exam with Jesenia and her Father. I was also able to discuss her case with Dr. Correa who agrees with above. At this time, We recommend ongoing bone stimulator use and serial imaging in 12 weeks. Jesenia is comfortable with this approach. Recommend avoiding heavy weight bearing or heavy lifting on the right upper extremity. OTC analgesics/Tylenol up to 1000 mg three times per day for pain. Cool packs prn. Pt agrees, questions solicited/answered, will return as scheduled and as needed for concerns or questions. Pt understands they may also call us prn for above. F/u 3 months with right elbow x-ray I have already ordered this as a future order in the computer. documented in this encounter Plan of Treatment Not on file documented as of this encounter Results * XR Elbow 3 Views Right (GENERIC) (07/30/2021 11:09 AM EST) Anatomical Region Laterality Modality Elbow Right Digital Radiogra phy Impressions 07/30/2021 2:37 PM EST Status post right elbow arthrodesis and healing periprosthetic fracture. I have personally reviewed the image(s) and the resident's interpretation and agree with the findings, Jia Haji MD at 07/30/2021 2:37 PM Thank you for letting us participate in the care of this patient. ??If you are a health care provider and have any questions regarding this report, please contact the number below. ??For patients who have questions please contact the health primary care coordinator that requested your imaging first. ? Narrative 07/30/2021 2:37 PM EST EXAMINATION: XR ELBOW 3 VIEWS RIGHT (GENERIC) CLINICAL HISTORY: right elbow arthrodesis with asael-prosthetic fx delayed union ? healing (as entered by ordering provider in the order requisition) TECHNIQUE: AP flexion and extension, lateral, and oblique views of the right elbow COMPARISON: Right elbow radiographs from 05/07/2021 and 11/21/2020 FINDINGS: Status post right elbow arthrodesis. Redemonstrated periprosthetic fracture at the location of the most distal screw with mixed callus deposition and bone resorption/radiolucency around the screw. No screw back out. Remaining hardware is intact and in unchanged position. Unchanged osseous fusion of the humeroulnar joint and erosion of the radial head. Procedure Note Jia Haji MD - 07/30/2021 EXAMINATION: XR ELBOW 3 VIEWS RIGHT (GENERIC) CLINICAL HISTORY: right elbow arthrodesis with asael-prosthetic fx delayedunion ? healing (as entered by ordering provider in the order requisition) TECHNIQUE: AP flexion and extension, lateral, and oblique views of the right elbow COMPARISON: Right elbow radiographs from 05/07/2021 and 11/21/2020 FINDINGS: Status post right elbow arthrodesis. Redemonstrated periprosthetic fracture at the location of the most distalscrew with mixed callus deposition and bone resorption/radiolucency around thescrew. No screw back out. Remaining hardware is intact and in unchanged position. Unchanged osseous fusion of the humeroulnar joint and erosion of theradial head. IMPRESSION Status post right elbow arthrodesis and healing periprosthetic fracture. I have personally reviewed the image(s) and the resident's interpretationand agree with the findings, Jia Haji MD at 07/30/2021 2:37 PM Thank you for letting us participate in the care of this patient. If youare a health care provider and have any questions regarding this report,please contact the number below. For patients who have questions please contactthe health primary care coordinator that requested your imaging first. Dorina Campbell APRN IMG DX ORDERABLES * XR Elbow 3 Views Right (GENERIC) (05/07/2021 1:23 PM EDT) Anatomical Region Laterality Modality Elbow Right Digital Radiogra phy Impressions 05/07/2021 2:18 PM EDT Status post elbow arthrodesis with periprosthetic fracture along the distal margin of the fusion hardware. The degree of healing at the fracture site is similar when compared to 03/20/2021. Thank you for letting us participate in the care of this patient. ??If you are a health care provider and have any questions regarding this report, please contact the number below. ??For patients who have questions please contact the health primary care coordinator that requested your imaging first. ? Narrative 05/07/2021 2:18 PM EDT EXAMINATION: XR ELBOW 3 VIEWS RIGHT (GENERIC) CLINICAL HISTORY: s/p fx (as entered by ordering provider in the order requisition) TECHNIQUE: AP, oblique, and lateral views of the right elbow. COMPARISON: Right elbow radiograph 03/20/2021 FINDINGS: Postoperative changes status post elbow arthrodesis with a plate-screw construct traversing the distal humerus and proximal ulna. The hardware is intact. No screw backout. There appears to be solid bony fusion across the humerus and ulna. Unchanged appearance of the eroded radial head. Fracture of the ulna around the most distal screw is unchanged in alignment with some callus formation. Procedure Note iJa Haji MD - 05/07/2021 EXAMINATION: XR ELBOW 3 VIEWS RIGHT (GENERIC) CLINICAL HISTORY: s/p fx (as entered by ordering provider in the order requisition) TECHNIQUE: AP, oblique, and lateral views of the right elbow. COMPARISON: Right elbow radiograph 03/20/2021 FINDINGS: Postoperative changes status post elbow arthrodesis with a plate-screwconstruct traversing the distal humerus and proximal ulna. The hardware is intact.No screw backout. There appears to be solid bony fusion across the humerusand ulna. Unchanged appearance of the eroded radial head. Fracture of theulna around the most distal screw is unchanged in alignment with some callus formation. IMPRESSION Status post elbow arthrodesis with periprosthetic fracture along thedistal margin of the fusion hardware. The degree of healing at the fracture siteis similar when compared to 03/20/2021. Thank you for letting us participate in the care of this patient. If youare a health care provider and have any questions regarding this report,please contact the number below. For patients who have questions please contactthe health primary care coordinator that requested your imaging first. Dorina Campbell WEDDING DECORATOR IMG DX ORDERABLES documented in this encounter Visit Diagnoses Diagnosis Closed displaced transverse fracture of shaft of right ulna with routine healing, subsequent encounter- Primary Closed displaced transverse fracture of shaft of right ulna with routine healing, subsequent encounter Closed displaced transverse fracture of shaft of right ulna with routine healing, subsequent encounter documented in this encounter Care Teams Finance Teacher Relationship Specialty Start Date End Date Maryuri Evans MD [address] [place] [address] PCP - General 09/23/14 documented as of this encounter
--- OUTSIDE RECORDS SUMMARY | 2024-05-31 17:42 | XMS_ITS | Encounter Summary ---
Author Organization [facility] Address [facility] [place] [address] Care Team Providers Care Dispensing Optician Apprentice Name Role Phone Maryuri Evans MD Primary Care Provider [phone] Encounter Details Date Type Department Care Team (Latest Contact Info) Description 12/30/2021 12:45 PM EDT - 12/30/2021 11:59 PM EDT Hospital Encounter XRay at [address] [place] [address] Dorina Campbell APRN [facility] [place] [address] Delayed union of closed fracture of shaft of right ulna Discharge Disposition: Home Social History Tobacco Use [...] BY MOUTH TWICE A DAY 3 07/21/2017 metoclopramide (REGLAN) 5 mg Tablet TAKE ONE [...] Associated Diagnosis Comments XR FOREARM RIGHT Routine 12/30/2021 1:05 PM EDT Delayed union of closed fracture of shaft of right ulna documented in this encounter Results * XR [...] who have questions please contact the health long term care phlebotomist that requested your imaging first. ? Narrative [...] patients who have questions please contactthe health long term care phlebotomist that requested your imaging first. Dorina Campbell RUGBY LEAGUE FOOTBALLER IMG DX ORDERABLES documented in this encounter Visit Diagnoses Diagnosis Delayed union of closed fracture of shaft of right ulna documented in this encounter Care Teams Dispensing Optician Apprentice Relationship Specialty Start Date End Date Maryuri Evans MD [address] [place] [address] PCP - General 09/23/14 documented as of this encounter
--- OUTSIDE RECORDS SUMMARY | 2024-05-31 17:42 | XMS_ITS | Encounter Summary ---
[place] [address] Care Team Providers Care Shortage Worker Name Role Phone Maryuri Evans MD Primary Care Provider [phone] Encounter Details Date Type Department Care Team (Late st Contact Info) Description 03/24/2021 Telephone [place] [address] Kalyani Dotson, RN Social History Tobacco Use Types Packs/Day Years [...] encounter Miscellaneous Notes * Telephone Encounter - Kalyani Dotson, RN - 03/24/2021 12:53 PM EDT Per MD Juani Miller & MD Radha Cordoba, patient can stop Daptomycin now d/t persistent n/v. Educated patient to flush tunneled line daily with saline and heparin until it is removed. Appointment made in IR for line removal on . 03/26/21 @ 1000. Patient and MDs aware of this appointment. Encouraged patient to drink clear liquids (ex. Water, Gatorade) and eat bland diet (ex. Keno). Patient verbalized understanding. Reports that she is drinking a lot of water/fluids. -Kalyani Dotson MSN, RN, CNL documented in this encounter Plan of Treatment Not on file documented as of this encounter Visit Diagnoses Not on filedocumented in this encounter Care Teams Shortage Worker Relationship Specialty Start Date End Date Maryuri Evans MD [address] [place] [address] PCP - General 09/23/14 documented as of this encounter
--- OUTSIDE RECORDS SUMMARY | 2024-05-31 17:42 | XMS_ITS | Encounter Summary ---
Author Organization [facility] Address [facility] [place] [address] Care Team Providers Care Chipper Operator Name Role Phone Maryuri Evans MD Primary Care Provider [phone] Encounter Details Date Type Department Care Team (Latest Contact Info) Description 05/07/2021 1:07 PM EDT - 05/07/2021 11:59 PM EDT Hospital Encounter XRay at [address] [place] [address] Dorina Campbell APRN [facility] [place] [address] Closed displaced transverse fracture of shaft of right ulna with routine healing, subsequent encounter Discharge Disposition: Home Social History [...] 09/01/2020 Elizabeth Pen Needle 32 gauge x Needle USE 1 PEN NEEDLE ONCE DAILY [...] BY MOUTH ONCE A DAY 04/16/2021 12/30/2021 enoxaparin (Lovenox) 40 mg/0.4 mL Syringe Inject 0.4 mLs subcutaneously nightly. 14 Syringe 03/17/2021 05/25/2021 oxyCODONE (Roxicodone) 5 mg Tablet Take 1 tablet by mouth every 4 hours as needed for Pain (For pain 4-10). 10 tablet 03/17/2021 05/25/2021 ondansetron (Zofran) 4 mg Tablet Take 1 tablet by mouth every 8 hours as needed for Nausea. 20 tablet 03/05/2021 12/30/2021 polyethylene glycoL (Miralax) 17 gram Powder in Packet Take 17 g by mouth daily. Hold for loose stools please! Thanks! 30 each 02/19/2021 05/25/2021 senna-docusate (Pericolace) 8.6-50 mg Tablet Take 2 tablets by mouth 2 times daily. Hold for loose stools please! Thanks! 120 tablet 02/18/2021 05/25/2021 buPROPion XL (Wellbutrin XL) 150 mg Tablet [...] Name Priority Date/Time Associated Diagnosis Comments XR ELBOW 3 VIEWS RIGHT (GENERIC) Routine 05/07/2021 1:23 PM EDT Closed displaced transverse fracture of shaft of right ulna with routine healing, subsequent encounter documented in this encounter Results * XR Elbow 3 [...] have questions please contact the health home care associate that requested your imaging first. ? Narrative [...] alignment with some callus formation. Procedure Note Jia Haji MD - 05/07/2021 EXAMINATION: XR ELBOW [...] who have questions please contactthe health home care associate that requested your imaging first. Dorina Bryson Adrian CLINICAL REHAB LIAISON IMG DX ORDERABLES documented in this encounter Visit Diagnoses Diagnosis Closed displaced transverse fracture of shaft of right ulna with routine healing, subsequent encounter documented in this encounter Care Teams Chipper Operator Relationship Specialty Start Date End Date Maryuri Evans MD [address] [place] [address] PCP - General 09/23/14 documented as of this encounter
--- OUTSIDE RECORDS SUMMARY | 2024-05-31 17:42 | XMS_ITS | Encounter Summary ---
Author Organization [facility] Address [facility] [place] [address] Care Team Providers Care Tank Cleaner Name Role Phone Maryuri Evans MD Primary Care Provider [phone] Reason for Visit * Reason Comments Follow Up Surgery s/p RFFF to left ank le Encounter Details Date Type Department Care Team (Late st Contact Info) Description 05/25/2021 2:45 PM EDT Office [place] [address] Aydee Franklin MD [facility] [place] [address] Surgery follow-up Social History Tobacco Use Types [...] as of this encounter Progress Notes * Aydee Franklin MD - 05/25/2021 2:45 PM EDT Plastic Surgery Post-Op Note Aydee Franklin MD. Jesenia Méndez returned to our office today for post surgical follow-up Date of surgery: 03/13/21 Procedure(s): Radial forearm free flap coverage of left ankle wounds Complications: None reported HPI: Patient returns to clinic for follow up visit. She is ~10wk s/p RFFF to coverage of L ankle wound. She continues to be NWB to LLE but has occasionally been bearing weight without difficulty. Shedenies F/C or drainage from her L ankle wound. She does have one area of persistent drainage from her forearm donor site. Physical Examination: General: Alert, comfortable, conversant. Inset incisions healing well. Flap soft, viable, healing well Flap donor site (left forearm): skin graft with ~1x2cm area of graft loss with hypergranulation. Silver nitrate applied today. Impression: Jesenia Méndez presents in follow-up today after radial forearm free flap to left ankle. Please see the operative note for details. Overall she is doing well. She has a small area of delayed healing in her donor site. Silver nitrate applied today. Will switch to silver mepilex and have her start using a splint for immobilization.Regarding her LLE, will obtain ankle xrays today to ensure that from a bony healing perspective thepatient may resume weight bearing. From a flap perspective, ok to return to full activity. Plan: Follow up: 3 weeks documented in this encounter Plan of Treatment Not on file documented as of this encounter Results * XR Ankle Min [...] who have questions please contact the health technical healthcare consultant that requested your imaging first. ? Narrative [...] patients who have questions please contactthe health technical healthcare consultant that requested your imaging first. Aydee Franklin MD IMG DX ORDERABLES documented in this encounter Visit Diagnoses Diagnosis Surgery follow-up Follow-up examination, following unspecified surgery Surgery follow-up Follow-up examination, following unspecified surgery documented in this encounter Care Teams Tank Cleaner Relationship Specialty Start Date End Date Maryuri Evans MD [address] [place] [address] PCP - General 09/23/14 documented as of this encounter
--- OUTSIDE RECORDS SUMMARY | 2024-05-31 17:42 | XMS_ITS | Encounter Summary ---
Author Organization [facility] Address [facility] [place] [address] Care Team Providers Care Brush Worker Name Role Phone Maryuri Evans MD Primary Care Provider [phone] Encounter Details Date Type Department Care Team (Late st Contact Info) Description 04/01/2021 11:00 AM EDT Office [place] [address] Anabell Delarosa APRN [facility] [place] [address] Surgery follow-up Social History Tobacco Use Types [...] * Patient Instructions* Anabell Delarosa APRN - 04/01/2021 11:00 AM EDT Follow up: 1 month Slowly increase time with leg dependent. Non weight bearing on left leg - I will message orthopedics for clarification on activity orders. May wash gently over all areas with soap and water. Pat dry, allow time to air dry. Apply a thin layer of Aquaphor ointment to graft and incisions. Cover any area of drainage. documented in this encounter Progress Notes * Anabell Delarosa APRN - 04/01/2021 11:00 AM EDT Plastic Surgery Post-Op Note Provider: Anabell Delarosa APRN Jesenia Méndez returned to our office today for post surgical follow-up Date of surgery: 03/13/21 Procedure(s): Radial forearm free flap coverage of left ankle wounds (Shankaran) Complications: None reported HPI: Patient returns to clinic for follow up visit. She is here primarily here for suture removal. She has completed her course of antibiotics. She continues to have nausea. She is taking supplements. She now has her leg dependent for approximately 1/2 of the day. Physical Examination: General: Alert, comfortable, conversant. Flap well perfused. Inset incisions healing well. Prolene sutures removed today. Flap donor site (left forearm): skin graft healing well. Skin graft donor site (upper leg): healed Impression: Jesenia Méndez presents in Follow-Up today after radial forearm free flap to left ankle. Flap healing well. Plan: Follow up: 1 month Slowly increase time with leg dependent. Non weight bearing on left leg - I will message orthopedics for clarification on activity orders. May wash gently over all areas with soap and water. Pat dry, allow time to air dry. Apply a thin layer of Aquaphor ointment to graft and incisions. Cover any area of drainage. I, Jia Dia, have performed the documentation for this encounter in the presence of and acting as a scribe for ANABELL DELAROSA APRN. I performed the services which were documented by the scribe, and I agree with the accuracy of the documentation in this encounter. ANABELL DELAROSA APRN documented in this encounter Plan of Treatment Not on file documented as of this encounter Visit Diagnoses Diagnosis Surgery follow-up Follow-up examination, following unspecified surgery documented in this encounter Care Teams Brush Worker Relationship Specialty Start Date End Date Maryuri Evans MD [address] [place] [address] PCP - General 09/23/14 documented as of this encounter
--- OUTSIDE RECORDS SUMMARY | 2024-05-31 17:42 | XMS_ITS | Encounter Summary ---
Author Organization [place] [address] Care Team Providers Care Catheterization Laboratory Technician Name Role Phone Maryuri Evans MD Primary Care Provider [phone] Encounter Details Date Type Department Care Team (Latest Contact Info) Description 10/23/2021 Travel Social History Tobacco Use Types Packs/Day [...] on filedocumented in this encounter Care Teams Catheterization Laboratory Technician Relationship Specialty Start Date End Date Maryuri Evans MD [address] [place] [address] PCP - General 09/23/14 documented as of this encounter
--- OUTSIDE RECORDS SUMMARY | 2024-05-31 17:42 | XMS_ITS | Encounter Summary ---
Author Organization [facility] Address [facility] [place] [address] Care Team Providers Care Commercial Title Examiner Name Role Phone Maryuri Evans MD Primary Care Provider [phone] Reason for Visit * Reason Onset Date Comments Right Arm Pain 11/10/2021 XR ORDER Encounter Details Date Type Department Care Team (Late st Contact Info) Description 11/10/2021 [place] [phone] Dorina Campbell APRN [facility] [place] [address] Right Arm Pain (XR ORDER) Social History Tobacco Use Types Packs/Day Years [...] who have questions please contact the health manager urgent care that requested your imaging first. ? Electronically signed by: An Vargas MD, [facility] ([phone]), at 12/02/2021 10:05 AM Narrative 12/02/2021 10:05 [...] patients who have questions please contactthe health manager urgent care that requested your imaging first. 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
--- OUTSIDE RECORDS SUMMARY | 2024-05-31 17:42 | XMS_ITS | Encounter Summary ---
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 The patient's skin is intact. The patient is going into a well padded Fiberglass Posterior- Upper extremity splint on the right side. The patient tolerated the procedure well. A detailed conversation regarding range of motion exercises were reviewed with patient as well as RICE, and remedies for itching. We have given the patient a Taking care of your cast pamphlet that has a written detail of all of this information along with the names of the cast techs to reach if needed. The patient is informed to call with any questions or concerns. 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
--- OUTSIDE RECORDS SUMMARY | 2024-05-31 17:42 | XMS_ITS | Encounter Summary ---
Author Organization [facility] Address [facility] [place] [address] Care Team Providers Care Grading Machine Operator Name Role Phone Maryuri Evans MD Primary Care Provider [phone] Reason for Visit * Reason Comments Pre-op Exam 11-09-21 Right repair non union Encounter Details Date Type Department Care Team (Late st Contact Info) Description 10/23/2021 2:00 PM EST Office [place] [address] Christopher Correa MD [facility] [place] [address] Right elbow pain Social History Tobacco Use Types Packs/Day Years [...] Sign Reading Time Taken Comments Blood Pressure 127/51 10/23/2021 2:21 PM EST Copied 3C appointment Pulse - - Temperature - - Respiratory Rate - - Oxygen Saturation - - Inhaled Oxygen Concentration - - Weight 72.6 kg (160 lb) 10/23/2021 2:21 PM EST Height 154.9 cm (5' 1) 10/23/2021 2:21 PM EST Body Mass Index 30.23 10/23/2021 2:21 PM EST documented in this encounter Progress Notes * Christopher Correa MD - 10/23/2021 2:00 PM EST Jesenia Méndez returns today for 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 She is interested in proceeding with repair of the nonunion. On physical examination, the patient is alert, oriented, and in no apparent distress. TTP at the nonunion site. New studies: None obtained Impression: ulnar nonunion. Plan for screw removal, bone graft +/-Infuse and additional perpendicular plating. We discussed the risks consent, which she signed. All questions were answered. This note was created with [employer] voice recognition software. * IlianaBritney W - 10/23/2021 2:00 PM EST Upper Extremity Pre-Operative Patient Education Procedure: Right Ulna ORIF Post-op Imaging order placed: No H&P: To be completed Dr. White Consent: The surgical consent was reviewed with Jesenia by Dr. Yan Correa. Procedure, risks, and benefits were reviewed. Questions were solicited and answered. The Jesenia understands these and the surgical consent was signed. Problems with pain medication in the past?: no If yes, drug and reaction: n/a DME/Physical Therapy: Jesenia was given a DME order for sling. This can be obtained from any DME provider or medical equipment company. She will be given a referral for physical therapy and a post operative protocol for their procedureafter surgery.. Jesenia understands the expectations around post operative rehabilitation and that this is an important component of their recovery. Jesenia was instructed that PT start time will be TBD after surgery. Discussed making sure they take care of special needs child caregiver, sleeping situations, and having help with ADL'sbefore day of surgery. Medications and Pain Management: Reviewed with Jesenia to discontinue use of NSAIDS and Aspirin 7 days before surgery. Chronic anti-coagulation: no Anticoagulation plan post op: ASA 81mg BID for 14 days Opioid PDMP 10/23/2021 03/04/2021 11/08/2017 [place] PDMP Query Date 10/23/2021 03/13/2021 11/08/2017 [place] PDMP Query Date 10/23/2021 03/13/2021 11/08/2017 [place] PDMP Query Date 10/23/2021 03/13/2021 - Jesenia Méndez is being prescribed a prescription opioid for the treatment of acute post-operative pain related to Orthopedic surgery. Jesenia Méndez has been advised to take the smallest dose possible to control their pain and as their pain improves to take smaller doses and increase the time between doses. In addition to this medication, non-opioid medications have been prescribed for adjunct treatment of their pain. Non-pharmacological treatment such as ice, elevation and activity modification have been recommended as appropriate. The Acute Opioid Therapy Informed Consent form has been completed and sent to medical records for scanning to chart. Written material given Elbow surgery?? Questions solicited and answered. Jesenia knows to call with any additional questions or concerns. Patient advised to read discharge instructions for specific recommendations about medication use, dressing care, sling use ect. after surgery. Will the patient require VNA services post-op: No Britney Barrientos, CRISTINA, LAT, ATC, OTC Department of Orthopaedics documented in this encounter Plan of Treatment Not on file documented as of this encounter Visit Diagnoses Diagnosis Right elbow pain Pain in joint, upper arm documented in this encounter Care Teams Grading Machine Operator Relationship Specialty Start Date End Date Maryuri Evans MD [address] [place] [address] PCP - General 09/23/14 documented as of this encounter
--- OUTSIDE RECORDS SUMMARY | 2024-05-31 17:42 | XMS_ITS | Encounter Summary ---
Author Organization [facility] Address [facility] [place] [address] Care Team Providers Care Kennel Attendant Name Role Phone Maryuri Evans MD Primary Care Provider [phone] Encounter Details Date Type Department Care Team (Latest Contact Info) Description 02/10/2022 11:46 AM EDT - 02/10/2022 11:59 PM EDT Hospital Encounter XRay at [address] [place] [address] Christopher Correa MD [facility] [place] [address] Closed fracture of shaft of right ulna [...] Associated Diagnosis Comments XR FOREARM RIGHT Routine 02/10/2022 12:3 6 PM EDT Closed fracture of shaft of [...] who have questions please contact the health ambulatory care coordinator that requested your imaging first. ? Electronically signed by: Pebbles Samson MD, [facility] ([phone]), at 02/10/2022 2:28 PM Narrative 02/10/2022 2:28 [...] patients who have questions please contactthe health ambulatory care coordinator that requested your imaging first. 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
--- OUTSIDE RECORDS SUMMARY | 2024-05-31 17:42 | XMS_ITS | Encounter Summary ---
Author Organization [facility] Address [facility] [place] [address] Care Team Providers Care Teaching Supervisor Name Role Phone Maryuri Evans MD Primary Care Provider [phone] Reason for Visit * Reason Onset Date Comments Appointment 05/29/2021 Encounter Details Date Type Department Care Team (Late st Contact Info) Description 05/29/2021 Telephone [place] [phone] Sabrina Capellan MD [facility] [place] [address] Appointment Social History Tobacco Use Types Packs/Day Years [...] encounter Miscellaneous Notes * Telephone Encounter - Nuvia Cueva - 05/29/2021 12:09 PM EDT Patient scheduled. * Telephone Encounter - Elle Ramirez - 05/29/2021 9:08 AM EDT LM #1 to schedule an FVE with Arlene, Salud or Gracie in next available opening. NXR L ANKLE DEBRID (02/14/21) GITAJN documented in this encounter Plan of Treatment Not on file documented as of this encounter Visit Diagnoses Not on filedocumented in this encounter Care Teams Teaching Supervisor Relationship Specialty Start Date End Date Maryuri Evans MD [address] [place] [address] PCP - General 09/23/14 documented as of this encounter
--- OUTSIDE RECORDS SUMMARY | 2024-05-31 17:42 | XMS_ITS | Encounter Summary ---
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, unspecified fracture morphology, subsequent encounter WasLiane radford, [address] [place] [address] [facility] [address] [place] [address] Referral ID Status Reason Start Date Expiration Date V isits Requested Visits Authorized [id number] Closed Evaluate and Treat 12/30/2021 12/30/2022 12 12 Encounter Details Date Type Department Care Team (Late st Contact Info) Description 12/30/2021 2:30 PM EDT [place] [address] Anabell Dey, OT Closed fracture of shaft of right ulna [...] as of this encounter Miscellaneous Notes * Initial Evaluation - Anabell Dey OT - 12/30/2021 2:30 PM EDT OCC[facility] [place] Referral Source: Dorina Germain MD Follow-up: 6 weeks Total Treatment time: 15 Minutes Timed Code Treatment Time: 15 minutes OCCUPATIONAL PROFILE: Jesenia Méndez is a 61 y.o. year old Right hand dominant person who underwent fusion of her RIGHT elbow secondary to fracture non-union . Jesenia Méndez is referred to Occupational Therapy for nerve glides and forearm stretching secondary to median nerve compression symptoms, as well as wrist stiffness. Patient presents today alone. Date of surgery: 11/09/21 Pertinent History and/or Co-morbidities: 1. Closed fracture of shaft of right ulna with routine healing, unspecified fracture morphology, subsequent encounter Pain: (Assessed using the Visual Analog Pain Scale) At Rest: 10/01 With Activity: 10/29 Treatment Today: Therex: Strength/Endurance/ROM (24161) 15 min Educated patient in etiology and biomechanics as related to patient's symptoms Range of Motion Exercises: Jesenia Méndez was provided with exercises today which can be found inthe scanned documents section of the chart. CLINICAL DECISION MAKING: Jesenia Méndez is able to independently verbalize and demonstrate the recommended home program following instructions today. Jesenia Méndez has good potential for gains with therapy/home program use. Patient knows to call with any questions or concerns. Patient's therapy plan is PRN; Jesenia Méndez lives a considerable distance from this clinic; continued therapy will be arranged at a clinic closer to home. . Short Term Goals (to be met by end of the visit today): Date Goal Met: Today 1. Jesenia Méndez will demonstrate independence with donning and doffing of her orthosis and verbalization of purpose. Goal Status: Meets. Today 2. Jesenia Méndez will be independent with home exercises as evident with demonstration in therapy. Goal Status: Meets PLAN: follow up PRN (X) Jesenia Méndez participated in the evaluation, collaborated on treatment goals, and agrees tothe treatment plan. 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
--- OUTSIDE RECORDS SUMMARY | 2024-05-31 17:42 | XMS_ITS | Encounter Summary ---
Author Organization [facility] Address [facility] [place] [address] Care Team Providers Care Vocational Education Professional Name Role Phone Maryuri Evans MD Primary Care Provider [phone] Encounter Details Date Type Department Care Team (Latest Contact Info) Description 07/30/2021 10:43 AM EST - 07/30/2021 11:59 PM [facility] Hospital Encounter XRay at [address] [place] [address] Dorina Campbell, [facility] [place] [address] Closed displaced transverse fracture of shaft of [...] XR ELBOW 3 VIEWS RIGHT (GENERIC) Routine 07/30/2021 11:09 AM EST Closed displaced transverse fracture of shaft of [...] have questions please contact the health home health caregiver that requested your imaging first. ? Narrative [...] who have questions please contactthe health home health caregiver that requested your imaging first. Dorina Campbell APRN IMG DX ORDERABLES documented in this encounter Visit Diagnoses Diagnosis Closed displaced transverse fracture of shaft of right ulna with routine healing, subsequent encounter documented in this encounter Care Teams Vocational Education Professional Relationship Specialty Start Date End Date Maryuri Evans MD [address] [place] [address] PCP - General 09/23/14 documented as of this encounter
--- OUTSIDE RECORDS SUMMARY | 2024-05-31 17:42 | XMS_ITS | Encounter Summary ---
Author Organization [facility] Address [facility] [place] [address] Care Team Providers Care Hearing Therapist Name Role Phone Maryuri Evans MD Primary Care Provider [phone] Reason for Visit * Auth/Cert Specialty Diagnoses / Procedures Referred By Contac t Referred To Contact Diagnoses Unspecified fracture of shaft of right ulna, subsequent encounter for closed fracture with nonunion ulna nonunion Procedures PRO REPAIR NONUNION RADIUS OR ULNAW/GRAFT REPAIR NONUNION OR MALUNION, RADIUS OR ULNA ,W/ AUTOGRAFT (WRVU 15.01) MODIFIER LARGE FRAGMENT SYSTEM SYNTHES MODIFIER LOCKING SMALL FRAGMENT SYNTHES MODIFIER [facility] Referral ID Status Reason Start Date Expiration Date Visits Re quested Visits Authorized [id number] 1 1 Encounter Details Date Type Department Care Team (Latest Contact Info) Description 11/09/2021 12:11 PM EDT - 11/09/2021 6:32 PM EDT Hospital Encounter Outpatient [place] [address] Niyah Correa MD [facility] DR [place] [address] Closed fracture of shaft of right ulna [...] Sign Reading Time Taken Comments Blood Pressure 118/61 11/09/2021 6:00 PM EDT Pulse 71 11/09/2021 2:45 PM EDT Temperature 36.1 ??C (97 ??F) 11/09/2021 5:18 PM EDT Respiratory Rate 18 11/09/2021 6:00 PM EDT Oxygen Saturation 97% 11/09/2021 6:00 [...] after hours and ask for the anesthesiologist relationship consultant. Moderate Sedation You may have received medication [...] 5pm or on a weekend: Call the [facility] hardening machine operator helper and ask for the physician relationship consultant covering for your doctor. * Patient Instructions* [...] bowel movement. You can also take an [id number] medication, Miralax if needed tocombat constipation. 2. [...] skin and wound problems. Call your doctor ([phone]) if you develop: Fever greater than 100.5 [...] 1. You will have followup appointments at [facility] as indicated in Future Appointment and Orders. [...] Department Center 12/02/2021 10:20 AM Dorina Campbell, WALLET ASSEMBLER [facility] ORTH 3C [facility] If you have questions or concerns: Tuesday [...] significant other. Prescriptions escribed by MD to [place]. Educated on pain control. Denied pain and [...] written copy sent home with patient. Makenna del valle ambulated to car for discharge accompanied by [...] in Recovery Room 03/26/2021 Mono Felipe MD [facility] INTERVENTIONL RAD ??? IR TUNNELED CENTRAL VENOUS ACCESS NON-DIALYSIS 03/16/2021 IR Tunneled Central Venous Access Non-Dialysis 03/16/2021 Yunior Flores MD [facility] INTERVENTIONLRAD ??? PRO ALVEOLOPLASTY W EXTRACTIONS, 4 OR MORE TEETH, PER QUADRANT N/A 09/11/2019 ALVEOPLASTY,IN CONJUNCTION WITH EXTRACTIONS,PER QUADRANT,ENT (WRVU 4.06) performed by Wesley Jacobo MD at [facility] OSC ? ? PRO DEBRIDEMENT BONE MUSCLE &/FASCIA 20 SQ CM/< Left 02/14/2021 DEBRIDEMENT SKIN, SUBCU, MUSCLE, BONE, LOWER EXTREMITY (WRVU 4.1) performed by Sabrina Capellan MDat [facility] MAIN OR ? ? PRO DEBRIDEMENT SUBCUTANEOUS TISSUE 20 SQCM/< Left 02/08/2021 DEBRIDEMENT SKIN AND SUBCU, LOWER EXTREMITY (WRVU 1.01) performed by Henrry Quiñones MD at [facility] OR ? ? PRO DEBRIDEMENT SUBCUTANEOUS TISSUE 20 SQCM/< Left 02/10/2021 DEBRIDEMENT SKIN AND SUBCU, LOWER EXTREMITY (WRVU 1.01) performed by Jacobo De La Cruz MD at [facility] OR ? ? PRO DEBRIDEMENT SUBCUTANEOUS TISSUE 20 SQCM/< Left 02/12/2021 DEBRIDEMENT SKIN AND SUBCU, LOWER EXTREMITY (WRVU 1.01) performed by Sabrina Capellan MD at [facility] OR ??? PRO FREE FASCIAL FLAP W MICROVASC ANAST Left 03/13/2021 @FLAP, FREE FASCIAL, W/ MICRO ANASTOMOSIS, LOWER EXTREMITY (WRVU 36.9) performed by Aydee Franklin MD at [facility] OR ??? PRO FUSION/GRAFT OF ELBOW JOINT Right 2017 ARTHRODESIS, ELBOW JOINT WITH AUTOGENOUS GRAFT (WRVU 14.32) performed by Niyah Correa MD at [facility] OR ??? PRO REMOVAL DEEP IMPLANT Right 2017 REMOVAL OF IMPLANT, DEEP, ELBOW (WRVU 5.96) performed by Niyah Correa MD at [facility] OR ??? PRO REMOVAL ERUPTED TOOTH WITH ELEVATION OF MUCOPERIOSTEAL FLAP Bilateral 09/11/2019 SURGICAL EXTRACTIONS REQUIRING ELEVATION OF MUCOPERIOSTEAL FLAP AND REMOVAL OF BONE OR SECTION OF TOOTH (WRVU 1.09) performed by Wesley Jacobo MD at [facility] OSC ? ? PRO SPLIT GRFT TRUNK, ARM, LEG <100SQCM Left 03/13/2021 SPLIT THICK SKIN GRAFT,100 SQ CM OR LESS, LEGS (WRVU 9.9) performed by Aydee Franklin MD at [facility] OR [place] Medications: Medications Prior to Admission Medication Sig [...] REMOVE Please contact the Blood Bank at [phone] for questions. ??? Pollen Extracts Other (See [...] Opioid Prescribing: Opioid PDMP 10/23/2021 03/04/2021 11/08/2017 [place] PDMP [...] reevaluation. Ania Moore MD, PGY-5 Orthopaedic Surgery [facility] Associated attestation - Niyah Correa MD - 11/09/2021 2:55 PM EDT Attending addendum: The preceeding portion of this note was written by Dr. Moore. I personally saw and evaluated the patient at the bedside and I agree with the assessment and plan documented above. Niyah Correa M.D., M.S. Software Specialist of Orthopaedic Surgery Shoulder, Elbow, and Sports Medicine Department of Orthopaedic Surgery [place], [place] [address] documented in this encounter Miscellaneous Notes * Op Note - Niyah Correa MD - 11/09/2021 3:19 PM EDT [facility] Operative Note Patient Name: Jesenia Méndez : [id number] MR#: [id number] Case Date: 11/09/2021 Surgeon: Surgeon(s) and Role: [...] ulna. It was marked with a green nightmute. She was given a regional anesthetic and [...] 3:3 2 PM EDT Removal Deep Implant ([id number]) 11/09/2021 3:01 PM EDT ulna nonunion MODIFIER LOCKING SMALL FRAGMENT SYNTHES 11/09/2021 3:01 PM EDT ulna nonunion MODIFIER LARGE FRAGMENT SYSTEM SYNTHES 11/09/2021 3:01 PM EDT ulna nonunion Repair Nonunion Radius Or Ulnaw/Graft ([id number]) 11/09/2021 3:01 PM EDT ulna nonunion REPAIR [...] who have questions please contact the health skin care specialist that requested your imaging first. ? Narrative [...] patients who have questions please contactthe health skin care specialist that requested your imaging first. Niyah Correa MD IMG DX ORDERABLES * XR Fluoro No Rad <1Hr - OR Use (11/09/2021 4:45 PM EDT) Narrative Dicom, Auditing User - 11/09/2021 4:45 PM EDT This exam is auto-finalizing. No interpretation was done. Niyah Correa MD IMG FLUORO ORDERABLE S * Anaerobic Culture (11/09/2021 3:32 PM EDT) Anaerobic Culture No anaerobic organisms isolated [facility] Joint Fluid RIGHT ELBOW REGION STRUCTURE / Unknown 11/09/2021 3:32 PM EDT 11/09/2021 4:37 PM EDT Comment:Right non-union ulna Narrative Resulting Agency Comment Spec In Lab Niyah Correa MD MICROBIOLOGY - GENER AL ORDERABLES [facility] [place] [address] * Joint Culture (11/09/2021 3:32 PM EDT) Joint Culture No growth at 14 days. [facility] Gram Stain Cytocentrifuge Gram Stain performed No Neutrophils seen. No microorganisms seen. 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, unspecified fracture morphology, subsequent encounter documented in this encounter Administered Medications Inactive Administered [...] 3:00 PM EDT 100 mL/hr 100 mL/hr lactated ringers infusion 1,000 mL, at 100 mL/hr, Intravenous, CONTINUOUS, Starting on Tue11/09/21 at 1415, Until Tue11/09/21 at 1832, Day of Surgery (Day of Procedure) New Bag 11/09/2021 3:40 PM EDT New Bag 11/09/2021 2:30 PM EDT 1,000 mLs 100 mL/hr documented in this encounter Active and Recently [...] Anaya Vora RN)[id number] (Given - Provider: Anaya Vora RN) midazolam (pf) (Versed) (1 mg/mL) injection 1 [...] Routine documented in this encounter Care Teams Hearing Therapist Relationship Specialty Start Date End Date Maryuri Evans MD [address] [place] [address] PCP - General 09/23/14 documented as of this encounter
--- OUTSIDE RECORDS SUMMARY | 2024-05-31 17:42 | XMS_ITS | Encounter Summary ---
Author Organization [place] [address] Care Team Providers Care Transportation Inspector Name Role Phone Maryuri Evans MD Primary Care Provider [phone] Reason for Visit * Reason Onset Date Comments Other 04/09/2021 Encounter Details Date Type Department Care Team (Late st Contact Info) Description 04/09/2021 Telephone [place] [address] Tanya Rai RMA Other Social History Tobacco Use Types Packs/Day Years [...] encounter Miscellaneous Notes * Telephone Encounter - Tanya Rai RMA - 04/09/2021 9:50 AM EDTSummary: Bone Stimulator Triage Note Subjective: Non compliant Upper ext SP Closed displaced transverse fracture of shaft of right ulna, DOI 2020 [place] questions/Assessment: ChristyPT called in to report that Jesenia just set up the bone stimulator on 04/08/2021. Christy,PT stated that she set it up and showed Jesenia how to use it. Christy,PT reports that Jesenia is not using her brace at this time. Jesenia has follow up 05/07/2021 with a xr prior. documented in this encounter Plan of Treatment Not on file documented as of this encounter Visit Diagnoses Not on filedocumented in this encounter Care Teams Transportation Inspector Relationship Specialty Start Date End Date Maryuri Evans MD [address] [place] [address] PCP - General 09/23/14 documented as of this encounter
--- OUTSIDE RECORDS SUMMARY | 2024-05-31 17:42 | XMS_ITS | Encounter Summary ---
Author Organization [place] [address] Care Team Providers Care Bacteriology Professor Name Role Phone Maryuri Evans MD Primary Care Provider [phone] Encounter Details Date Type Department Care Team (Late st Contact Info) Description 11/11/2021 [place] [phone] Zahra Carmen MD [facility] [place] [address] Social History Tobacco Use Types Packs/Day Years [...] as of this encounter Progress Notes * Zahra Carmen MD - 11/11/2021 9:52 AM EDT REGIONAL NERVE BLOCK FOLLOW-UP I attempted to contact the patient via telephone regarding resolution of nerve block. I was unable to reach the patient. I will follow-up again to ensure resolution of block. If there are any questions or concerns regarding the nerve block, do not hesitate to contact the regional anesthesia team documented in this encounter Plan of Treatment Not on file documented as of this encounter Visit Diagnoses Not on filedocumented in this encounter Care Teams Bacteriology Professor Relationship Specialty Start Date End Date Maryuri Evans MD [address] [place] [address] PCP - General 09/23/14 documented as of this encounter
--- OUTSIDE RECORDS SUMMARY | 2024-05-31 17:42 | XMS_ITS | Encounter Summary ---
Author Organization [facility] [place] [address] Care Team Providers Care Guest Relations Officer Name Role Phone Maryuri Evans MD Primary Care Provider [phone] Reason for Referral * Diagnostic Test (Routine) - Closed Specialty Diagnoses / Procedures Referred By Contac t Referred To Contact Neurology Diagnoses Ulnar neuritis, right Dorina Campbell APRN [facility] [place] [address] [facility] [address] [place] [address] Referral ID Status Reason Start Date Expiration Date V isits Requested Visits Authorized [id number] Closed Test Only 02/10/2022 02/10/2023 1 1 Reason for Visit * Reason Comments Follow-up R radius/ulna nonuni on SUE DOS 11/09/21 (HENRIK) Encounter Details Date Type Department Care Team (Late st Contact Info) Description 02/10/2022 1:40 PM EDT Office [place] [address] Dorina Campbell APRN [facility] [place] [address] H/O elbow surgery, 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 Dr. Correa. DOS: 11/09/2021. (Primary Dx); Ulnar neuritis, right Social History Tobacco Use Types Packs/Day Years [...] Sign Reading Time Taken Comments Blood Pressure 115/61 02/10/2022 1:44 PM EDT Pulse 67 02/10/2022 1:44 PM EDT Temperature - - Respiratory Rate - - Oxygen Saturation - - Inhaled Oxygen Concentration - - Weight 76.2 kg (168 lb) 02/10/2022 1:44 PM EDT Height 154.9 cm (5' 1) 02/10/2022 1:44 PM EDT Body Mass Index 31.74 02/10/2022 1:44 PM EDT documented in this encounter Progress Notes * Dorina Campbell, SREE - 02/10/2022 1:40 PM EDT Surgical Date: 11/09/2021 ?? Surgeon: * Christopher Correa MD - ?? Procedure(s) : REPAIR NONUNION OR MALUNION, RADIUS OR ULNA ,W/ AUTOGRAFT (Right) MODIFIER LARGE FRAGMENT SYSTEM SYNTHES (Right) MODIFIER LOCKING SMALL FRAGMENT SYNTHES (Right) REMOVAL OF IMPLANT, DEEP, FOREARM (Right) ?? CHIEF COMPLAINT: 3 months S/P above procedure HISTORY OF PRESENT ILLNESS: Ms. Méndez a 61 y.o. year old female comes into clinic today for appointment ~ 3 months s/p the above procedures. Overall, Jesenia is doing well in regards to the pre-op pain. No new falls or injuries. However, tingling and nerve pain remain problematic primarily in the 4/5 fingers. No fevers or chills. No systemic or constitutional complaints. Jesenia did some work withOT at her last appointment with nerve glides with no appreciable change in her symptoms. She is already taking gabapentin twice a day for chronic pain with no mid-day dosing. Patient's medications, allergies, past medical, surgical, social and family histories were reviewedand updated as appropriate. ROS: Denies fever, chills, nausea, vomiting, vision change, shortness of breath, chest pain, visionchanges, headaches, bowel or bladder problem, ear, nose, sinus problem, neuro or psychiatric, or endocrine disorder not addressed above. PHYSICAL EXAMINATION: Vitals: 02/10/22 1344 BP: 115/61 BP Location (NBP): Right arm Patient Position: Sitting BP Cuff Sizes: Adult (25-34 cm) Pulse: 67 Weight: 76.2 kg (168 lb) Height: 154.9 cm (5' 1) Body mass index is 31.74 kg/m??. 61 year old Female in NAD. Non-toxic appearing. Right elbow and forearm exam: Wound Inspection: Surgical incision is well healed no asael-incisional erythema or evidence of infection. Neuro: There is a + tinel's at the ulnar groove of the elbow that reproduces tingling in the 4/5 finger. + motor intact in the hand with 5/5 wrist extension, interosseous and intrinsics intact, thumbopposes to the 5th finger. Mild atrophy of the hypothenar eminence of the hand. Axillary (sensory and motor intact), antebrachial cutaneous intact, Radial, ulna + tinel's and tingling in the 4/5 fingers, median nerve neuro-motor intact. ROM: The elbow is fused with no active/or passive ROM. Skin is warm, dry and well perfused. Distal radius pulse 2+. Capillary refill is brisk. The forearm compartments are soft. No pain with passive ROM of the hand or wrist. No skin color changes and no diaphoresis. 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 ASSESSMENT: 61 year old Female who is now 3 months status post op for above surgical procedure. Overall, doing well in regard to the revision surgery with little pain at the non-union site. No hardware complications. Jesenia does continue with numbing pain and paraesthesias of the 4/5 ulnar nerve distribution with no motor weakness. PLAN: I reviewed my findings in the office today with both x-rays and clinical exam. At this time, I recommend obtaining a neurology consult to assess for ulnar nerve compression. I have already ordered this as a future order in the computer. I recommend continue with nerve glide activity. Consideradding a mid- day dosing of gabapentin/Neurontin to help with nerve pain of the hand. I will send a message to her PCP and Jesenia will reach out to her PCP as well. HEEL FIDEL for padding the ulnar grooveregion. Ok to advance activity as pain and function allow in regards to the revision non-union ORIFwith bone grafting yet avoid heavy demand activity for a full 6 months post op. In addition to the Neurology consult, we will plan on seeing Jesenia in 3 months with a right forearm x-ray I have already ordered this as a future order in the computer. We were able to discuss the following plan: 1. HEEL FDIEL as directed 2. Nerve glide exercises 3. Ask PCP about mid-day gabapentin use 4. Neurology EMG/NCS test ordered. They will call you for this appointment. 5. Call randall campbell sooner if no reply from PCP for mid-day dose of gabapentin. 6. Ok to gentle advance activity as pain and function allow. No heavy demand use of the arm at thistime. 7. Dr. Correa's team in 12 weeks right elbow -x-ray I have already ordered this as a future order in the computer. Jesenia is comfortable with this approach. Pt agrees, questions solicited/answered, will return as scheduled and as needed for concerns or questions. Pt understands they may also call us prn for above. ADDENDUM: I was able to discuss her case with Dr. Correa who agrees with a neurology consult at this time. X-rays reviewed with Dr. Correa as well. documented in this encounter Plan of Treatment Scheduled Referrals Name Type Priority Associated Diagnoses Orde r Schedule Referral to Neurology Outpatient Referral Routine Ulnar neuritis, right Ordered: 02/10/2022 documented as of this encounter Results * [...] who have questions please contact the health health care consultant that requested your imaging first. ? [...] patients who have questions please contactthe health health care consultant that requested your imaging first. 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 Dr. Correa. 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 Dr. Correa. DOS: 11/09/2021. Personal history of surgery to other organs documented in this encounter Care Teams Guest Relations Officer Relationship Specialty Start Date End Date Maryuri Evans MD [address] [place] [address] PCP - General 09/23/14 documented as of this encounter
--- OUTSIDE RECORDS SUMMARY | 2024-05-31 17:42 | XMS_ITS | Encounter Summary ---
Author Organization [facility] Address [facility] [place] [address] Care Team Providers Care Demonstrator Knitting Name Role Phone Maryuri Evans MD Primary Care Provider [phone] Reason for Visit * Reason Onset Date Comments Medication Refill 12/02/2021 Encounter Details Date Type Department Care Team (Late st Contact Info) Description 12/02/2021 [place] [id number] Dorina Campbell PROPERTY CONDITION ASSESSOR [facility] [place] [address] Delayed union of closed fracture of shaft [...] ulna documented in this encounter Care Teams Demonstrator Knitting Relationship Specialty Start Date End Date Maryuri Evans MD [address] [place] [address] PCP - General 09/23/14 documented as of this encounter
--- OUTSIDE RECORDS SUMMARY | 2024-05-31 17:42 | XMS_ITS | Encounter Summary ---
[place] [address] Care Team Providers Care Drilling Contractor Name Role Phone Maryuri Evans MD Primary Care Provider [phone] Reason for Referral * Diagnostic Test (Routine) - Closed Specialty Diagnoses / Procedures Referred By Contac t Referred To Contact Radiology Diagnoses Receiving intravenous antibiotic treatment as outpatient Postoperative wound infection Procedures IR Line or Tube Removal in Recovery Room Radha Cordoba [facility] [place] [address] [place] [address] Referral ID Status Reason Start Date Expiration Date V isits Requested Visits Authorized [id number] Closed Specialty Service Requested 03/24/2021 09/24/2022 1 1 Reason for Visit * Diagnostic Test (Routine) - Closed Specialty Diagnoses / Procedures Referred By Contac t Referred To Contact Radiology Diagnoses Receiving intravenous antibiotic treatment as outpatient Postoperative wound infection Procedures IR Line or Tube Removal in Recovery Room Radha Cordoba [facility] [place] [address] [place] [address] Referral ID Status Reason Start Date Expiration Date V isits Requested Visits Authorized [id number] Closed Specialty Service Requested 03/24/2021 09/24/2022 1 1 Encounter Details Date Type Department Care Team (Latest Contact Info) Description 03/26/2021 9:40 AM EDT - 03/26/2021 11:59 PM EDT Hospital Encounter Radiology at [facility] [place] [address] Radha Cordoba, [facility] [place] [address] Receiving intravenous antibiotic treatment as outpatient; Postoperative wound infection Discharge Disposition: Home Social History Tobacco Use Types Packs/Day Years Used Date Smoking Tobacco: Never Smokeless Tobacco: Never Alcohol Use Standard Drinks/Week Comments No 0 (1 standard drink = 0.6 oz pur e alcohol) Sex and Gender Information Value Date Recorded Sex Assigned at Not on file Gender Identity Not on file Sexual Orientation Not on file documented as of this encounter Discharge Instructions * Discharge Instructions* Curtis Noel RN - 03/26/2021 11:18 AM EDT [facility] Vascular and Interventional Radiology Discharge Instructions For Your Puncture Site Activity and Diet: ??? Go Home and rest quietly for the remainder of the day. You may resume your normal activities tomorrow. ??? Resume your usual diet after the procedure. Bandage: There is a sterile dressing over the puncture site consisting of small gauze with a clear dressing (Tegaderm). This dressing should be left in place for 24 hours. If the clear dressing becomes loose you should place tape over the edges to secure it in place. Bathing: Do not take a shower until 24 hours after your procedure; after this time you may shower with the dressing in place, then remove it and pat your skin dry. You may use a bandaid to cover the site if there is any drainage. When to call your healthcare provider: ??? If you notice bleeding or a bulge from the puncture site, you should apply firm pressure over the site for 10-15 minutes, keeping the site covered and call your doctor. If you are still bleeding after 10-15 minutes, reapply pressure, and have someone drive you to the nearest Emergency Department, or call 911. ??? If you develop pain, redness, drainage or swelling at or around the puncture site. ??? If you develop fever equal to or greater than 101F and/or shaking chills. When to call the Interventional Radiology Department: Please call with any questions or concerns. If it is during regular office hours, please call [phone]. If it is after regular office hours, or on weekends or holidays, please call [phone] and ask to speak to the Shell Trim Operator environmental engineering intern for Interventional Radiology. You have received medication during your procedure to help lessen anxiety and keep you comfortable.These medications affect judgement and reaction time. We recommend that you do not drive, operate equipment, sign any important documents, or smoke unattended for 24 hours following your procedure. Because of the sedation, be careful on stairs, as you may be unsteady on your feet. You may resume your regular diet as tolerated. IV site -- slight redness, or tenderness is normal, you can use a warm compress. If tenderness and redness increases or foul drainage occurs, please contact your M. D. Revised 09/05/15 documented in this encounter Medications at Time [...] chloride 0.9%) Parenteral Solution 02/03/2021 12/31/19 22 enoxaparin (Lovenox) 40 mg/0.4 mL Syringe Inject [...] evening. 11/04/2022 documented as of this encounter H&P Notes * Curtis Cox PA - 03/25/2021 1:24 PM EDT Interventional Radiology Focused Pre-procedure H&P: PCP: Maryuri Evans MD Referring Provider: Radha Cordoba Procedure: Tunneled line explant Procedure indication: Ankle fracture, soft tissue infection, discontinue senior care durable venous access for chemotherapy IR workflow: Procedure request received through Interventional Radiology eDH order queue. Order Questions Answers Where will study be performed? [facility] Radiology [120] Is the patient on anticoagulant / antiplatelet therapy ? Low Molecular Weight Heparin Reason for exam and clinical history: finished course of IV antibiotics Exam/Procedure requested: tunneled central line removal History of present illness: Per chart review, Jesenia Méndez is a 60 y.o. female who presents to Interventional Radiology to undergo removal of central venous catheter in setting of surgical site infection. This is a patient who underwent tunneled line placement on 03/16/21 to facilitate 6 weeks of daptomycin therapy. Per infectious disease note: ...it is reasonable to conclude OPAT at this time. Safety labs drawn from yesterday were unremarkable, which is reassuring. OPAT team was contacted and will arrange for tunneled PICC removal. Remainder of patient's medical and surgical history, allergies, medications, and social/family history obtained below as previously outlined in patient's medical record. IR history: as above Assessment: 60 y.o. female with tunneled venous catheter presenting to Interventional Radiology forremoval. Labs: Lab Results Component Value Date HGB 10.2 (L) 03/17/2021 HCT 32.1 (L) 03/17/2021 WBC 10.6 (H) 03/17/2021 PLATELET 286 03/17/2021 BUN 11 03/17/2021 CREATININE 0.68 (L) 03/17/2021 ALBUMIN 3.0 (L) 03/16/2021 BILIDIR <0.1 03/16/2021 BILITOT 0.2 03/16/2021 AST 22 03/16/2021 ALT 7 03/16/2021 ALKPHOS 95 03/16/2021 Allergies: Latex, Erythromycin lactobionate, Metformin, Red blood cells, Pollen extracts, Trazodone, Adhesive, and Lisinopril Medications: Current Outpatient Medications on File Prior to Encounter Medication Sig Dispense Refill ??? enoxaparin (Lovenox) 40 mg/0.4 mL Syringe Inject 0.4 mLs subcutaneously nightly. 14 Syringe 0 ??? oxyCODONE (Roxicodone) 5 mg Tablet Take 1 tablet by mouth every 4 hours as needed for Pain (Forpain 4-10). (Patient not taking: Reported on 03/24/2021) 10 tablet 0 ??? ondansetron (Zofran) 4 mg Tablet Take 1 tablet by mouth every 8 hours as needed for Nausea. 20 tablet 0 ??? acetaminophen (Tylenol) 500 mg Tablet Take 2 tablets by mouth every 8 hours. 180 tablet 0 ??? Lantus Solostar U-100 Insulin pen Inject 20 Units subcutaneously nightly. (Patient taking differently: Inject 20-25 Units subcutaneously nightly.) 1 vial 3 ??? polyethylene glycoL (Miralax) 17 gram Powder in Packet Take 17 g by mouth daily. Hold for loosestools please! Thanks! 30 each 0 ??? senna-docusate (Pericolace) 8.6-50 mg Tablet Take 2 tablets by mouth 2 times daily. Hold for loose stools please! Thanks! 120 tablet 0 ??? cyclobenzaprine (Flexeril) 5 mg Tablet Three times daily as needed for muscle spasms 30 tablet 0 ??? DAPTOmycin (Cubicin) 500 mg Recon Soln Inject 700 mg into the vein daily for 35 days. 46 each 0 ??? OneTouch Ultra Blue Test Strip Strip TEST THREE TIMES A DAY ??? OneTouch Ultra2 Meter Misc TEST DIRECTED ??? OneTouch Delica Plus Lancet 30 gauge Misc TEST THREE TIMES A DAY ??? Victoza 2-Terrance 0.6 mg/0.1 mL (18 mg/3 mL) Pen Injector Inject 1.2 mg subcutaneously nightly. ??? folic acid (Folvite) 1 mg Tablet Take by mouth. ??? gabapentin (Neurontin) 300 mg Capsule TAKE ONE CAPSULE BY MOUTH THREE TIMES A DAY ??? Elizabeth Pen Needle 32 gauge x Needle USE 1 PEN NEEDLE ONCE DAILY AT BEDTIME ??? hydrOXYzine (VISTARIL) 50 mg Capsule TAKE ONE CAPSULE BY MOUTH TWICE A DAY ??? buPROPion XL (Wellbutrin XL) 150 mg Tablet Extended Release 24 hr Take 150 mg by mouth every morning. ??? pantoprazole (PROTONIX) 40 mg Tablet, Delayed Release (E.C.) Take 1 tablet by mouth daily. 3 ??? sertraline (ZOLOFT) 100 mg Tablet Take 2 tablets by mouth daily. 3 ??? multivitamin (THERAGRAN) Tablet Take 1 tablet by mouth daily. ??? calcium carbonate (CALCIUM 500 ORAL) Take by mouth. ??? levothyroxine (SYNTHROID) 50 mcg Tablet Take 50 mcg by mouth daily. ??? glipiZIDE (GLUCOTROL XL) 10 mg Tablet Extended Rel 24 hr TAKE TWO TABLETS BY MOUTH EVERY DAY 3 ??? topiramate (TOPAMAX) 100 mg Tablet TAKE ONE TABLET BY MOUTH TWICE A DAY 3 ??? losartan (COZAAR) 50 mg Tablet Take 25 mg by mouth daily. No current facility-administered medications on file prior to encounter. Past medical/surgical history: Patient Active Problem List Diagnosis Code ??? Psoriasis L40.9 ??? S/P R elbow fusion on 12/14/17 Correa S53.106A ??? Chronic pain in left shoulder [...] S82.892D ??? Ankle wound, left, sequela S91.002S No past medical history on file. Past Surgical History: Procedure Laterality Date ??? IR TUNNELED CENTRAL VENOUS ACCESS NON-DIALYSIS 03/16/2021 IR Tunneled Central Venous Access Non-Dialysis 03/16/2021 Yunior Flores MD [facility] INTERVENTIONLRAD ??? PRO ALVEOLOPLASTY W EXTRACTIONS, 4 OR MORE TEETH, PER QUADRANT N/A 09/11/2019 ALVEOPLASTY,IN CONJUNCTION WITH EXTRACTIONS,PER QUADRANT,ENT (WRVU 4.06) performed by Wesley Jacobo MD at [facility] OSC ? ? PRO DEBRIDEMENT BONE MUSCLE &/FASCIA 20 SQ CM/< Left 02/14/2021 DEBRIDEMENT SKIN, SUBCU, MUSCLE, BONE, LOWER EXTREMITY (WRVU 4.1) performed by Sabrina Capellan MDat [facility] MAIN OR ? ? PRO DEBRIDEMENT SUBCUTANEOUS TISSUE 20 SQCM/< Left 02/08/2021 DEBRIDEMENT SKIN AND SUBCU, LOWER EXTREMITY (WRVU 1.01) [facility] ? ? PRO DEBRIDEMENT SUBCUTANEOUS TISSUE 20 SQCM/< Left 02/10/2021 DEBRIDEMENT SKIN AND SUBCU, LOWER EXTREMITY (WRVU 1.01) performed by Jacobo De La Cruz MD at [facility] MAIN OR ? ? PRO DEBRIDEMENT SUBCUTANEOUS TISSUE 20 SQCM/< Left 02/12/2021 DEBRIDEMENT SKIN AND SUBCU, LOWER EXTREMITY (WRVU 1.01) performed by Sabrina Capellan MD at [facility] MAIN OR ??? PRO FREE FASCIAL FLAP W MICROVASC ANAST Left 03/13/2021 @FLAP, FREE FASCIAL, W/ MICRO ANASTOMOSIS, LOWER EXTREMITY (WRVU 36.9) performed by Aydee Franklin MD at [facility] MAIN OR ??? PRO FUSION/GRAFT OF ELBOW JOINT Right 2017 ARTHRODESIS, ELBOW JOINT WITH AUTOGENOUS GRAFT (WRVU 14.32) performed by Christopher Correa MD at [facility] MAIN OR ??? PRO REMOVAL DEEP IMPLANT Right 2017 REMOVAL OF IMPLANT, DEEP, ELBOW (WRVU 5.96) performed by Christopher Correa MD at [facility] MAIN OR ??? PRO REMOVAL ERUPTED TOOTH WITH ELEVATION OF MUCOPERIOSTEAL FLAP Bilateral 09/11/2019 SURGICAL EXTRACTIONS REQUIRING ELEVATION OF MUCOPERIOSTEAL FLAP AND REMOVAL OF BONE OR SECTION OF TOOTH (WRVU 1.09) performed by Wesley Jacobo MD at [facility] OSC ? ? PRO SPLIT GRFT TRUNK, ARM, LEG <100SQCM Left 03/13/2021 SPLIT THICK SKIN GRAFT,100 SQ CM OR LESS, LEGS (WRVU 9.9) [facility] Social history and habits: Social History Tobacco Use ??? Smoking status: Never Smoker ??? Smokeless tobacco: Never Used Vaping Use ??? Vaping Use: Never used Substance Use Topics ??? Alcohol use: No ??? Drug use: No Significant family history: Family History Problem Relation Age of Onset ??? Chronic Obstructive Pulmonary Disease Mother ??? Emphysema Mother ??? Diabetes Mother ??? Heart Disease Father ??? Diabetes Father ??? Diabetes Maternal Grandmother ??? Pancreatic Cancer Maternal Grandmother Pertinent ROS: as per HPI Physical exam: Pending (to be performed in interventional radiology the day of procedure) ASA: Pending (to be assessed in interventional radiology the day of procedure) Mallampati class: Pending (to be assessed in interventional radiology the day of procedure) 03/25/2021 IMANI Lee documented in this encounter Plan of Treatment Not on file documented as of this encounter Procedures Procedure Name Priority Date/Time Associated Diagnosis Comments IR LINE OR TUBE REMOVAL IN RECOVERY ROOM Routine 03/26/2021 11:26 AM EDT Receiving intravenous antibiotic treatment as outpatient Postoperative wound infection documented in this encounter Results * IR Line or [...] documented by the IR Nurse. ?? Radha Cordoba DO Goran IR ORDERABLES documented in this encounter Visit Diagnoses Diagnosis Receiving intravenous antibiotic treatment as outpatient Encounter for long-term (current) use of antibiotics Postoperative wound infection Other postoperative infection documented in this encounter Care Teams Drilling Contractor Relationship Specialty Start Date End Date Maryuri Evans MD [address] [place] [address] PCP - General 09/23/14 documented as of this encounter
--- OUTSIDE RECORDS SUMMARY | 2024-05-31 17:42 | XMS_ITS | Encounter Summary ---
Author Organization [facility] Address [facility] [place] [address] Care Team Providers Care Manager Water Name Role Phone Maryuri Evans MD Primary Care Provider [phone] Reason for Visit * Reason Onset Date Comments Medication Refill 11/16/2021 Encounter Details Date Type Department Care Team (Late st Contact Info) Description 11/16/2021 [place] [address] Christopher Correa MD [facility] [place] [address] Social History Tobacco Use Types Packs/Day Years [...] encounter Miscellaneous Notes * Telephone Encounter - Yoel Powell CAMPAIGN FUNDRAISER - 11/16/2021 3:29 PM EDT Images from the original note were not included. Medication Refill Request Surgery/Injury/Provider: Repair nonunion OR Dr. Correa Medication being requested: Oxycodone Query: Last refill or Original Rx: Seen within 30 days (if no, than when): Follow Up: 12/02/21 How is this medication being used currently: one tab every 4hr Pain level: 10 Bowel concerns: no Other pain medications used and how: Tylenol Yes Gabapentin Yes Naproxen No OTHER Medication Taper Plan: Taper to the lowest effective maintenance dose, . Continue additional scheduled pain medication along with RICE. Teaching done regarding: taking nonnarcotic pain medications, taking the least amount of opioid needed for the least amount of time for adequate pain management and tapering of opioids with verbalized understanding by the patient. Requested Prescription to be sent electronically to [facility] in [facility]. Prescription prepped and pended for Dr. Correa for review. The patient knows how to contact orthopaedics if any further questions or concerns occur. documented in this encounter Plan of Treatment Not on file documented as of this encounter Visit Diagnoses Not on filedocumented in this encounter Care Teams Manager Water Relationship Specialty Start Date End Date Maryuri Evans MD [address] [place] [address] PCP - General 09/23/14 documented as of this encounter
--- OUTSIDE RECORDS SUMMARY | 2024-05-31 17:42 | XMS_ITS | Encounter Summary ---
Author Organization [facility] Address [facility] [place] [address] Care Team Providers Care Product Manager Financial Services Name Role Phone Maryuri Evans MD Primary Care Provider [phone] Encounter Details Date Type Department Care Team (Late st Contact Info) Description 03/20/2021 [place] [id number] Dorina Campbell APRN [facility] [place] [address] Closed displaced transverse fracture of shaft of [...] * XR Elbow 3 Views Right (GENERIC) (03/20/2021 1:09 PM EDT) Anatomical Region Laterality Modality Elbow Right Digital Radiogra phy Impressions 03/20/2021 1:31 PM EDT Progressive healing of perihardware right ulna fracture without radiographic finding of complication. Thank you for letting us participate in the care of this patient. ??If you are a health care provider and have any questions regarding this report, please contact the number below. ??For patients who have questions please contact the health healthcare specialist that requested your imaging first. ? Electronically signed by: An Vargas MD, [facility] ([phone]), at 03/20/2021 1:31 PM Narrative 03/20/2021 1:31 PM EDT EXAMINATION: XR ELBOW 3 VIEWS RIGHT (GENERIC) CLINICAL HISTORY: right elbow arthrodesis with associated fracture ? healing ??? non-union ? mal-union assess for healing, CAST OFF FOR X-RAY TECHNIQUE: 3 views RIGHT elbow COMPARISON: Radiographs 2017, November 21February 06 and March 13, 2021 FINDINGS: There is increased callous volume and maturity surrounding the perihardware fracture at the distal ulnar screw. No change in alignment. Partial osseous bridging along the anterolateral fracture margin. Hardware reduced elbow arthrodesis is otherwise intact without adjacent lucency or change in position. There is complete osseous fusion at the ulnotrochlear compartment. No focal soft tissue abnormality. Procedure Note An Vargas MD - 03/20/2021 EXAMINATION: XR ELBOW 3 VIEWS RIGHT (GENERIC) CLINICAL HISTORY: right elbow arthrodesis with associated fracture ?healing ? non-union ? mal-union assess for healing, CAST OFF FOR X-RAY TECHNIQUE: 3 views RIGHT elbow COMPARISON: Radiographs 2017, November 21February 06 and March 13, 2021 FINDINGS: There is increased callous volume and maturity surrounding theperihardware fracture at the distal ulnar screw. No change in alignment. Partialosseous bridging along the anterolateral fracture margin. Hardware reduced elbow arthrodesis is otherwise intact without adjacentlucency or change in position. There is complete osseous fusion at theulnotrochlear compartment. No focal soft tissue abnormality. IMPRESSION Progressive healing of perihardware right ulna fracture withoutradiographic finding of complication. Thank you for letting us participate in the care of this patient. If youare a health care provider and have any questions regarding this report,please contact the number below. For patients who have questions please contactthe health healthcare specialist that requested your imaging first. Electronically signed by: An Vargas MD, [facility]([phone]), at 03/20/2021 1:31 PM Dorina Massey Adrian SUB ARC OPERATOR IMG DX ORDERABLES documented in this encounter Visit Diagnoses Diagnosis Closed displaced transverse fracture of shaft of right ulna with routine healing, subsequent encounter Closed displaced transverse fracture of shaft of right ulna with routine healing, subsequent encounter- Primary documented in this encounter Care Teams Product Manager Financial Services Relationship Specialty Start Date End Date Maryuri Evans MD [address] [place] [address] PCP - General 09/23/14 documented as of this encounter
--- OUTSIDE RECORDS SUMMARY | 2024-05-31 17:42 | XMS_ITS | Encounter Summary ---
Author Organization [facility] Address [facility] [place] [address] Care Team Providers Care Tire Man Name Role Phone Maryuri Evans MD Primary Care Provider [phone] Reason for Visit * Reason Onset Date Comments Appointment 10/14/2021 Encounter Details Date Type Department Care Team (Late st Contact Info) Description 10/14/2021 Telephone [place] [id number] Christopher Correa MD [facility] DR [place]THOPAED[place] [address] Appointment Social History Tobacco Use Types Packs/Day [...] encounter Miscellaneous Notes * Telephone Encounter - Ania Figueroa - 10/20/2021 8:53 AM EST left message to schedule surgery with Dr Correa * Telephone Encounter - Maryuri Thayer - 10/14/2021 1:20 PM ESTSummary: Patient would like to schedule Surgery Who is calling? Jesenia Méndez Best call back number: [phone] Best time to call back between 8:00 am & 5:00 pm: Anytime Can we leave a message? yes When is your procedure? Not Schedule Who is your surgeon? Madeline What is the question you would like to ask the clinical care team? Jesenia would like to proceed withsurgery on her right arm as discussed at the 07/30/[address] Correa. Your message will be forwarded to the clinical care team for review. documented in this encounter Plan of Treatment Not on file documented as of this encounter Visit Diagnoses Not on filedocumented in this encounter Care Teams Tire Man Relationship Specialty Start Date End Date Maryuri Evans MD [address] [place] [address] PCP - General 09/23/14 documented as of this encounter
--- OUTSIDE RECORDS SUMMARY | 2024-05-31 17:42 | XMS_ITS | Encounter Summary ---
Author Organization [facility] Address [facility] [place] [address] Care Team Providers Care Venetian Blind Machine Operator Name Role Phone Maryuri Evans MD Primary Care Provider [phone] Reason for Referral * Physical Therapy (Routine) - Closed Specialty Diagnoses / Procedures Referred By Contac t Referred To Contact Physical Therapy Diagnoses Ankle abscess Gracie Del Rio PA [facility] [place] [address] Referral ID Status Reason Start Date Expiration Date V isits Requested Visits Authorized [id number] Closed Evaluate and Treat 06/11/2021 12/08/2021 1 1 Reason for Visit * Reason Comments Follow Up Surgery S/P Left ankle I&D f or abscess and wound dehiscence, 02/08/21 (Dr Quiñones) and 02/10/21 (Dr De La Cruz); 02/12 + 02/14 ( Dr. Capellan) Encounter Details Date Type Department Care Team (Late st Contact Info) Description 06/11/2021 1:30 PM EDT Office [place] [address] Gracie Del Rio PA [facility] [place] [address] S/P Left ankle I&D for abscess and wound dehiscence, 02/08/21 (Dr Quiñones) and 02/10/21 (Dr De La Cruz); 02/12 + 02/14 ( Dr. Capellan) (Primary Dx) Social History Tobacco Use Types [...] Sign Reading Time Taken Comments Blood Pressure 136/56 06/11/2021 1:26 PM EDT Pulse 78 06/11/2021 1:26 PM EDT Temperature - - Respiratory Rate - - Oxygen Saturation - - Inhaled Oxygen Concentration - - Weight 72.6 kg (160 lb) 06/11/2021 1:26 PM EDT r eported Height 154.9 cm (5' 1) 06/11/2021 1:26 PM EDT r eported Body Mass Index 30.23 06/11/2021 1:26 PM EDT documented in this encounter Progress Notes * Gracie Del Rio PA - 06/11/2021 1:30 PM EDT Images from the original note were not included. PATIENT NAME: Jesenia Méndez AGE: 60 y.o. MR#: [id number] DATE OF VISIT: 06/11/2021 CHIEF COMPLAINT: 4 months s/p I&D and SUE by Dr. Capellan 02/14/2021 for purulent lateral ankle wound HISTORY OF PRESENT ILLNESS: Ms. Méndez is a 60 y.o. female who comes into clinic today for evaluation of the left ankle. Ankle fracture 01/11/2021. Had ORIF at [facility]. Had wound healing issues. Had several I&Ds at [facility] by ortho team. Had skin flap by plastics team. Most recent surgery 02/14/[address] Capellan for I&D and SUE. Was followed by ID after. Not currently on antibiotics. She has bee n doing good since January 2021. Wearing a left short leg boot. When WB in her home w/o boot, ankle feels good. Fully WBAT LLE. No assistive device. No f/c/ns. Never did therapy on left ankle. Has intermittent left foot and ankle edema DM, A1C 01/2021 was 7.9. Says she is working with a provider on her DM control. Past medical history: Patient Active Problem List Diagnosis Date Noted [...] on 12/14/17 Correa 2017 ??? Psoriasis 09/23/2014 Medications: ??? metoclopramide (REGLAN) 5 mg Tablet ??? omeprazole (PriLOSEC) 40 mg Capsule, Delayed Release(E.C.) ??? ondansetron (Zofran) 4 mg Tablet ??? acetaminophen (Tylenol) 500 mg Tablet ??? Lantus Solostar U-100 Insulin pen ??? cyclobenzaprine (Flexeril) 5 mg Tablet ??? OneTouch Ultra Blue Test Strip Strip ??? OneTouch Ultra2 Meter Misc ??? OneTouch Delica Plus Lancet 30 gauge Misc ??? Victoza 2-Terrance 0.6 mg/0.1 mL (18 mg/3 mL) Pen Injector ??? folic acid (Folvite) 1 mg Tablet ??? gabapentin (Neurontin) 300 mg Capsule ??? Elizabeth Pen Needle 32 gauge x 5/32 Needle ??? hydrOXYzine (VISTARIL) 50 mg Capsule ??? buPROPion XL (Wellbutrin XL) 150 mg Tablet Extended Release 24 hr ??? pantoprazole (PROTONIX) 40 mg Tablet, Delayed Release (E.C.) ??? sertraline (ZOLOFT) 100 mg Tablet ??? multivitamin (THERAGRAN) Tablet ??? calcium carbonate (CALCIUM 500 ORAL) ??? levothyroxine (SYNTHROID) 50 mcg Tablet ??? glipiZIDE (GLUCOTROL XL) 10 mg Tablet Extended Rel 24 hr ??? topiramate (TOPAMAX) 100 mg Tablet ??? losartan (COZAAR) 50 mg Tablet Allergies: Allergies Allergen Reactions ??? Latex Rash ??? Erythromycin Lactobionate Nausea Only ??? Metformin Nausea Only ??? Red Blood Cells Other (See Comments) Antibodies-Difficult to Crossmatch DO NOT REMOVE Please contact the Blood Bank at [phone] for questions. ??? Pollen Extracts Other (See Comments) Rhinusitus ??? Trazodone Other (See Comments) Hallucination ??? Adhesive Rash Skin Rash ??? Lisinopril Other (See Comments) Cough. Social history: Social History Tobacco Use ??? Smoking status: Never Smoker ??? Smokeless tobacco: Never Used Substance Use Topics ??? Alcohol use: No Review of systems: No chest pain or shortness of breath No fevers, night sweats or chills Vital signs: Patient Vitals for the past 24 hrs: Pulse BP 06/11/21 1326 78 136/56 Physical exam: Ms. Méndez is a 60 y.o. female who is alert and oriented. She is in no acute discomfort and is resting comfortably in the exam room. No use of accessory muscles or retraction. Normal respiratory rate. Flap w/ STSG healing very well No erythema of foot or ankle Incisions well healed Able to DF/PF ankle Able to wiggle all toes Minimal edema left foot and ankle today on exam PT pulse 2+ Imaging studies: No new imaging was taken today Assessment and plan:: 60 y.o. year-old female 4 months s/p I&D and SUE by Dr. Capellan 02/14/2021 for purulent lateral ankle wound We had a long discussion regarding left ankle I&D and SUE for infection. Ankle looks really good. No pain with WB in boot. No signs of infection. Wean from boot. Start outpatient PT. Gentle return to normal activities. Gentle strengthening. ROMAT. This plan was discussed with the patient and they are in agreement. All of the patient's questions were answered. The patient understand to contact us if they have any other questions or concerns. FU: tom Del Rio PA-C The above dictation was made with voice recognition software documented in this encounter Plan of Treatment Scheduled Referrals Name Type Priority Associated Diagnoses Orde r Schedule Referral to Physical Therapy Outpatient Referral Routine S/P Left ankle I&D for abscess and wound dehiscence, 02/08/21 (Dr Quiñones) and 02/10/21 (Dr De La Cruz); 02/12 + 02/14 ( Dr. Capellan) Ordered: 06/11/2021 documented as of this encounter Visit Diagnoses Diagnosis S/P Left ankle I&D for abscess and wound dehiscence, 02/08/21 (Dr Quiñones) and 02/10/21 (Dr De La Cruz); 02/12 + 02/14 ( Dr. Capellan)- Primary Cellulitis and abscess of leg, except foot documented in this encounter Care Teams Venetian Blind Machine Operator Relationship Specialty Start Date End Date Maryuri Evans MD [address] [place] [id number] PCP - General 09/23/14 documented as of this encounter
--- OUTSIDE RECORDS SUMMARY | 2024-05-31 17:42 | XMS_ITS | Encounter Summary ---
Author Organization [facility] Address [facility] [place] [address] Care Team Providers Care Local Intermodal Truck Driver Name Role Phone Maryuri Evans MD Primary Care Provider [phone] Encounter Details Date Type Department Care Team (Late st Contact Info) Description 11/23/2021 Notes [place] [id number] Salud Nguyen PA [facility] [place] [address] Social History Tobacco Use Types Packs/Day Years [...] as of this encounter Progress Notes * Salud Nguyen PA - 11/23/2021 2:20 PM EDT Surgery: right proximal ulna non-union ORIF DOS 11/09/21 (Dr. Correa) Patient called in requesting Oxycodone refill. Rxed: Oxycodone 5mg PO Q6 hours PRN pain Disp#15 This will be the patient's last narcotic refill. Salud Nguyen PA-C documented in this encounter Plan of Treatment Not on file documented as of this encounter Visit Diagnoses Not on filedocumented in this encounter Care Teams Local Intermodal Truck Driver Relationship Specialty Start Date End Date Maryuri Evans MD [address] [place] [address] PCP - General 09/23/14 documented as of this encounter
--- OUTSIDE RECORDS SUMMARY | 2024-05-31 17:42 | XMS_ITS | Encounter Summary ---
Author Organization [facility] Address [facility] [place] [address] Care Team Providers Care Material Mixer Name Role Phone Maryuri Evans MD Primary Care Provider [phone] Reason for Visit * Reason Comments Pre-op Exam Encounter Details Date Type Department Care Team (Late st Contact Info) Description 10/23/2021 1:30 PM EST Office [place] [phone] Tyler White MD [facility] [place] [address] Preop examination; Closed fracture of shaft of right ulna [...] Time Taken Comments Blood Pressure 127/51 10/23/2021 1:30 PM EST Pulse 82 10/23/2021 1:30 PM EST Temperature - - Respiratory Rate - - Oxygen Saturation 96% 10/23/2021 1:30 PM EST Inhaled Oxygen Concentration - - Weight - - Height 154.9 cm (5' 1) 10/23/2021 1:30 PM EST Body Mass Index - - documented in this encounter Progress Notes * Tyler White MD - 10/23/2021 1:30 PM EST CC: Jesenia Méndez is a 60 y.o. female new patient to the perioperative clinic with the followingproblems and medications that is being seen in the clinic for consultation at the request of her surgeon Dr. Christopher Correa for preoperative risk stratification and management recommendations in anticipation of repair non-union right ulna HPI - Pain - Location - right forearm Quality - aching, sharp Onset - gradual, Duration - several months, Intensity - moderate to severe, Aggravating factors - present at rest, any movement at her RUE Alleviating factors - none at this time Associated - diabetes managed on current regime. No changes made after the prior A1c per Dr. Evans and she is seeing her on the . She had a fall on thisarm after her ORIF whne her son's dog pushed her onto a door, she sustained a fracture through the screw hole of prior placed plate and screws, she tried non operative management including bone stimulator and had no improvement. She had left ankle fracture with postoperative infection last year. Patient Active Problem List Diagnosis Code ??? [...] left, sequela S91.002S ??? Surgery follow-up Z09 Current Outpatient Medications Medication Sig Dispense Refill ??? omeprazole (PriLOSEC) 40 mg Capsule, Delayed Release(E.C.) TAKE 1 CAPSULE BY MOUTH ONCE A DAY ??? acetaminophen (Tylenol) 500 mg Tablet Take 2 tablets by mouth every 8 hours. 180 tablet 0 ??? Lantus Solostar U-100 Insulin pen Inject 20 Units subcutaneously nightly. 1 vial 3 ??? cyclobenzaprine (Flexeril) 5 mg Tablet Three times daily as needed for muscle spasms 30 tablet 0 ??? OneTouch Ultra Blue Test Strip Strip TEST THREE TIMES A DAY ??? OneTouch Ultra2 Meter Misc TEST DIRECTED ??? OneTouch Delica Plus Lancet 30 gauge Misc TEST THREE TIMES A DAY ??? Victoza 2-Terrance 0.6 mg/0.1 mL (18 mg/3 mL) Pen Injector Inject 1.2 mg subcutaneously every morning. ??? folic acid (Folvite) 1 mg Tablet [...] 150 mg by mouth every morning. ??? sertraline (ZOLOFT) 100 mg Tablet Take 2 tablets by mouth daily. 3 ??? multivitamin (THERAGRAN) Tablet Take 1 tablet by mouth daily. ??? calcium carbonate (CALCIUM 500 ORAL) Take by mouth. ??? levothyroxine (SYNTHROID) 50 mcg Tablet Take 50 mcg by mouth nightly. ??? glipiZIDE (GLUCOTROL XL) 10 mg Tablet Extended Rel 24 hr TAKE TWO TABLETS BY MOUTH EVERY DAY 3 ??? topiramate (TOPAMAX) 100 mg Tablet TAKE ONE TABLET BY MOUTH TWICE A DAY 3 ??? losartan (COZAAR) 50 mg Tablet Take 25 mg by mouth every evening. ??? 0.9 % sodium chloride (sodium chloride 0.9%) Parenteral Solution ??? metoclopramide (REGLAN) 5 mg Tablet TAKE ONE TABLET BY MOUTH EVERY 6 HOURS NEEDED FOR NAUSEAAND VOMITING ??? ondansetron (Zofran) 4 mg Tablet Take 1 tablet by mouth every 8 hours as needed for Nausea. (Patient not taking: Reported on 10/23/2021) 20 tablet 0 ??? pantoprazole (PROTONIX) 40 mg Tablet, Delayed Release (E.C.) Take 1 tablet by mouth daily. 3 No current facility-administered medications for this visit. Social History Occupational History ??? Not on file Tobacco Use ??? Smoking status: Never Smoker ??? Smokeless tobacco: Never Used Vaping Use ??? Vaping Use: Never used Substance and Sexual Activity ??? Alcohol use: No ??? Drug use: No ??? Sexual activity: Not on file Family History Problem Relation Age of Onset ??? Chronic Obstructive Pulmonary Disease Mother ??? Emphysema Mother ??? Diabetes Mother ??? Heart Disease Father ??? Diabetes Father ??? Diabetes Maternal Grandmother ??? Pancreatic Cancer Maternal Grandmother Review of Systems Constitutional: Negative for chills, diaphoresis and fever. Respiratory: Negative for cough, shortness of breath and wheezing. Cardiovascular: Negative for chest pain, palpitations and leg swelling. Gastrointestinal: Negative for abdominal pain, anal bleeding and blood in stool. Denies constipation. Endocrine: Negative for polydipsia and polyphagia. Genitourinary: Negative for dysuria, flank pain and hematuria. Skin: Negative for pallor and rash. Allergic/Immunologic: Negative for environmental allergies and immunocompromised state. Neurological: Negative for syncope and speech difficulty. Hematological: Negative for adenopathy. Denies melena Psychiatric/Behavioral: Negative for confusion, decreased concentration and dysphoric mood. Allergies: Allergies Allergen Reactions ??? Latex Rash ??? Erythromycin Lactobionate Nausea Only ??? Metformin Nausea Only ??? Red Blood Cells Other (See Comments) Antibodies-Difficult to Crossmatch DO NOT REMOVE Please contact the Blood Bank at [phone] for questions. ??? Pollen Extracts Other (See Comments) Rhinusitus ??? Trazodone Other (See Comments) Hallucination ??? Adhesive Rash Skin Rash ??? Lisinopril Other (See Comments) Cough. Physical Exam: Last Set of Vitals and Range over past 24 hours: Last value Range last 24 hrs Heart Rate Heart Rate: 82 Heart Rate: [82] Blood Pressure BP: 127/51 BP: (127)/(51) SpO2 SpO2: 96 % SpO2: [96 %] Estimated body mass index is 30.23 kg/m?? as calculated from the following: Height as of this encounter: 154.9 cm (5' 1). Weight as of 07/30/21: 72.6 kg (160 lb). Physical Exam Constitutional: She is oriented to person, place, and time. She appears well- developed. No distress. HENT: Head: Normocephalic and atraumatic. Eyes: Right eye exhibits no discharge. Left eye exhibits no discharge. No scleral icterus. Neck: Neck supple. No JVD present. Cardiovascular: Normal rate, regular rhythm and normal heart sounds. Exam reveals no gallop and no friction rub. No murmur heard. Pulmonary/Chest: Effort normal and breath sounds normal. No stridor. No respiratory distress. She has no wheezes. She has no rales. She exhibits no spinal tenderness. Abdominal: Soft. Bowel sounds are normal. She exhibits no percussed HSM. There is no CVA tenderness. There is no rebound and no guarding. Musculoskeletal: She exhibits no edema. She has arthrodesis with flexion at right elbow. Cap refillis brisk in right hand. Neurological: She is alert and oriented to person, place, and time. She displays no tremors at restor on intent. Skin: Skin is warm and dry. She is not diaphoretic. No pallor. Psychiatric: She has a normal mood and affect. Her behavior is normal. Judgment and thought contentnormal. Xray - IMPRESSION Status post right elbow arthrodesis and healing periprosthetic fracture. A/P 1. Preop examination 2. 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 I reviewed importance of vitamin D and potential osteoporosis that could affect bone healing and she was given below instructions. She remains active despite the impairment and has no active cardiopulmonary symptoms, there is no indication for preoperative cardiac testing. She has regular follow up with Dr. Evans for her DM2 on insulin. Patient instructions: Take vitamin D3 - 2000 units daily with supper until end of November, Take Prilosec, gabapentin, hydroxyzine, Wellbutrin, sertraline, topiramate th e morning of surgery. Discuss bone density and osteoporosis with Dr. Evans. RECOMMENDATION for Postoperative Care: Resume preoperative medications. 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
--- OUTSIDE RECORDS SUMMARY | 2024-05-31 17:42 | XMS_ITS | Encounter Summary ---
Author Organization [facility] Address [facility] [place] [address] Care Team Providers Care Residential Child Care Counselor Name Role Phone Maryuri Evans MD Primary Care Provider [phone] Reason for Visit * Reason Comments Follow-up Rt Closed displaced transverse fracture of shaft of ulna Encounter Details Date Type Department Care Team (Late st Contact Info) Description 07/30/2021 11:20 AM EST Office [place] [address] Christopher Correa MD [facility] [place] [address] Closed fracture of shaft of right ulna [...] Sign Reading Time Taken Comments Blood Pressure 127/64 07/30/2021 11:16 AM EST Pulse 72 07/30/2021 11:16 AM EST Temperature - - Respiratory Rate - - Oxygen Saturation - - Inhaled Oxygen Concentration - - Weight 72.6 kg (160 lb) 07/30/2021 11:16 AM EST Height 154.9 cm (5' 1) 07/30/2021 11:16 AM EST Body Mass Index 30.23 07/30/2021 11:16 AM EST documented in this encounter Progress Notes * Christopher Correa MD - 07/30/2021 11:20 AM EST Jesenia Méndez returns today for 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 She is doing about the same as when she was last seen. The pain is bothering her, and she is wondering what else can be done for it. On physical examination, the patient is alert, oriented, and in no apparent distress. She is tender at the distal aspect of the plate which is clearly palpable. There is no gross motion, but this is the site of pain. New studies: X-rays demonstrate persistent nonunion Impression: We discussed options. At this point I think the choices are to live with it the way it is or to proceed with open reduction internal fixation and bone grafting of the nonunion. She would like to proceed with surgery, but not yet since her father has an upcoming procedure and she will need to care for him. She will give us a call when she wants to schedule this. This note was created with [employer] voice recognition software. documented in this encounter Plan of Treatment Not on file documented as of this encounter Visit Diagnoses Diagnosis 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, unspecified fracture morphology, subsequent encounter documented in this encounter Care Teams Residential Child Care Counselor Relationship Specialty Start Date End Date Maryuri Evans MD [address] [place] [address] PCP - General 09/23/14 documented as of this encounter
--- OUTSIDE RECORDS SUMMARY | 2024-05-31 17:42 | XMS_ITS | Encounter Summary ---
Author Organization [place] [address] Care Team Providers Care News Director Name Role Phone Maryuri Evans MD Primary Care Provider [phone] Encounter Details Date Type Department Care Team (Late st Contact Info) Description 11/12/2021 [place] [phone] Melanie Baig MD [facility] DR [place]ES[place] [address] Social History Tobacco Use Types Packs/Day Years [...] as of this encounter Progress Notes * Melanie Baig - 11/12/2021 8:53 AM EDT I attempted to contact the patient via telephone regarding resolution of nerve block. I was unable to reach the patient. This is the second attempt, we will remove her from the follow up list. If there are any questions or concerns regarding the nerve block, do not hesitate to contact the regional anesthesia team. Melanie Baig MD documented in this encounter Plan of Treatment Not on file documented as of this encounter Visit Diagnoses Not on filedocumented in this encounter Care Teams News Director Relationship Specialty Start Date End Date Maryuri Evans MD [address] [place] [address] PCP - General 09/23/14 documented as of this encounter
--- OUTSIDE RECORDS SUMMARY | 2024-05-31 17:43 | XMS_ITS | Encounter Summary ---
Author Organization [facility] Address [facility] [place] [address] Care Team Providers Care Lathe Winder Name Role Phone Maryuri Evans MD Primary Care Provider [phone] Reason for Visit * Consultation (Routine) - Closed Specialty Diagnoses / Procedures Referred By Contac t Referred To Contact Infectious Diseases Diagnoses Ankle abscess Wound infection complicating hardware, sequela Delfina Harris MD [facility] [place] [address] Delfina Harris MD [facility] [place] [address] Referral ID Status Reason Start Date Expiration Date V isits Requested Visits Authorized [id number] Closed Assume Subset of Care 02/18/2021 02/18/2022 1 1 Encounter Details Date Type Department Care Team (Late st Contact Info) Description 03/20/2021 9:00 AM EDT Office [place] [address] Juani Miller DO [facility] [place] [address] Receiving intravenous antibiotic treatment as outpatient; Wound infection complicating hardware, subsequent encounter Social History Tobacco Use Types [...] Sign Reading Time Taken Comments Blood Pressure 130/72 03/20/2021 8:41 AM EDT Pulse 94 03/20/2021 8:41 AM EDT Temperature 36.1 ??C (96.9 ??F) 03/20/2021 8:41 AM ED T Respiratory Rate 16 03/20/2021 8:41 AM EDT Oxygen Saturation 98% 03/20/2021 8:41 AM EDT Inhaled Oxygen Concentration - - Weight 73.9 kg (163 lb) 03/20/2021 8:41 AM EDT s tated Height 157.5 cm (5' 2.01) 03/20/2021 8:41 AM ED T Body Mass Index 29.81 03/20/2021 8:41 AM EDT documented in this encounter Progress Notes * Juani Miller, DO - 03/20/2021 9:00 AM EDT Infectious Disease OPAT Follow-Up ID: 60 year-old female with history most significant for recent left ankle fracture sustained aftera standing fall s/p ORIF at [facility] on 01/21/21 that was complicated by surgical site infection involving hardware s/p multiple operative washouts and total hardware removal on 02/12/21. OR cultures with isolation of MSSA (5/5) and enterococcus faecalis (4/5; amp-S). She was discharged to finish 6-week course of daptomycin (8mg/kg, 700mg IV daily) from hardware removal via LUE PICC per ID. Flap coverage also was recommended given exposed bone. Interim: Pt underwent left radial forearm free flap coverage of her left ankle wound on 03/13/21. Postoperative course was uncomplicated. RIJ tunneled line was placed on 03/17/21 for IV access to continue her daptomycin (her LUE PICC was removed due to her flap). ID briefly evaluated patient during her hospitalization at the request of the primary team; the team made recommendations for outpatient ID follow-up given no new infectious issues. She was discharged from the hospital on 03/17/21 with Plastics follow-up on 03/24/21. Subjective: Jesenia is feeling so-so. Her main complaint is nausea that she thinks is related to daptomycin. She is able to tolerate oral without any episodes of vomiting. Zofran helps sometimes. Herappetite is not as good as before, and she has lost about 20 pounds since her fracture. She has inco nsistent episodes of loose stools. wound care has been taking care of her flap. Her ankle wound with flap closure has been healing well with now granulation tissue and minimal drainage. She reports that the incision along her rightforearm has been getting slightly more erythematous, however there has been no drainage from the open wound or pain. She denies any constitutional symptoms including fever/chills. Pain is well-controlled. Objective: Patient Vitals for the past 24 hrs: Temp Pulse Resp BP SpO2 03/20/21 0841 36.1 ??C (96.9 ??F) 94 16 130/72 98 % General: No acute distress, sitting in wheelchair. CV: RRR, no obvious murmurs. + RIJ tunneled line dressing not totally intact and had some surrounding dried blood. Resp: CTAB, no wheezing, crackles, or rhonchi. Abd: Soft, non-distended, non-tender on palpation. No rebound or guarding. Ext: Picture of left forearm wound uploaded onto media. Left ankle wrapped in bandage. Distal pulses intact throughout. Patient was able to move left fingers and left toes on command. Skin: No rashes. Pertinent labs, microbiology, imaging and procedures were reviewed. Impression: In summary, this is a 60-year-old female with history most significant for traumatic left ankle fracture s/p ORIF complicated by surgical site infection involving hardware requiring serial operative debridements and total hardware removal on 02/12/21. She is now s/p left radial forearm free flap coverage of her left ankle due to exposed bone. She is currently on daptomycin (8mg/kg, 70mg IV daily) for anticipated 6-week course from hardware removal (planned end date 03/26/21). Patient appears to be clinically improving on her current regimen. Rise in her CRP on 03/16/21 is ofunclear clinical significance as it was drawn shortly after her surgery. There was initially some concern for possible secondary infection given erythema surrounding her forearm incision on exam. Perreview of the uploaded media with Plastics today, this is an expected postoperative finding and is less likely community relations representative of infection from their standpoint. Given her clinical course thus far, we will plan to finish her antibiotic course at the anticipated end date barring any clinical complications. This will also help mitigate any side effects from her therapy as she only has a week left in her antibiotic course. Plan: -- continue daptomycin (8mg/kg, 70mg IV daily) until end-date 03/26/21 -- will plan to remove RIJ tunneled line once antibiotic course is completed -- weekly lab monitoring: CBC w/ diff, CMP, CRP, CK -- zofran prn for nausea -- close monitoring of her wounds/flap with strict return precautions Patient was seen and discussed with attending, Dr. Beryl Miller DO Infectious Disease Fellow [facility] * Radha Reddy DO - 03/20/2021 9:00 AM EDT I have seen the patient and reviewed the history and physical and I agree with the details as written by Dr Miller. The assessment and plan were formulated in discussion with me and I agree with them as documented. Ankle appears to be doing well however LUE flap harvest site has erythema around the proximal incision with some induration. Patient denies any discharge. Advised to monitor closely. Will otherwise complete antibiotics as planned on 03/26. Radha Reddy DO, MPH Infectious Disease documented in this encounter Miscellaneous Notes * Addendum Note - Radha Reddy DO - 03/20/2021 9:00 AM EDTAddended by: RADHA REDDY on: 03/27/2021 09:47 AM Modules accepted: Level of Service documented in this encounter Plan of Treatment Scheduled Referrals Name Type Priority Associated Diagnoses Orde r Schedule OPAT: Order / Recommendation for Post Discharge IV Antibiotic Management Outpatient Referral Routine S/P Left ankle I&D for abscess and wound dehiscence, 02/08/21 (Dr Quiñones) and 02/10/21 (Dr De La Cruz); 02/12 + 02/14 ( Dr. Capellan) Wound infection complicating hardware, sequela Ordered: 02/18/2021 documented as of this encounter Visit Diagnoses Diagnosis Receiving intravenous antibiotic treatment as outpatient Encounter for long-term (current) use of antibiotics Wound infection complicating hardware, subsequent encounter documented in this encounter Care Teams Lathe Winder Relationship Specialty Start Date End Date Maryuri Evans MD [address] [place] [address] PCP - General 09/23/14 documented as of this encounter
--- OUTSIDE RECORDS SUMMARY | 2024-05-31 17:43 | XMS_ITS | Encounter Summary ---
Author Organization [facility] Address [facility] [place] [address] Care Team Providers Care Order Expediter Name Role Phone Maryuri Evans MD Primary Care Provider [phone] Reason for Referral * Home Health Care (Routine) - Closed Specialty Diagnoses / Procedures Referred By Contac t Referred To Contact Diagnoses Ankle wound, left, sequela Surgery follow-up Aydee Franklin MD [facility] [place] [address] Unknown None Referral ID Status Reason Start Date Expiration Date V isits Requested Visits Authorized [id number] Closed Continuity of Care 03/19/2021 09/15/2021 1 1 Encounter Details Date Type Department Care Team (Late st Contact Info) Description 03/19/2021 Orders [place] [address] Aydee Franklin MD [facility] [place] [address] Ankle wound, left, sequela; Surgery follow-up Social History Tobacco Use Types [...] as of this encounter Plan of Treatment Scheduled Referrals Name Type Priority Associated Diagnoses Orde r Schedule Referral to Home Health - Clinic Use Outpatient Referral Routine Ankle wound, left, sequela Surgery follow-up Ordered: 03/19/2021 documented as of this encounter Visit Diagnoses Diagnosis Ankle wound, left, sequela Surgery follow-up Follow-up examination, following unspecified surgery documented in this encounter Care Teams Order Expediter Relationship Specialty Start Date End Date Maryuri Evans MD [address] [place] [address] PCP - General 09/23/14 documented as of this encounter
--- OUTSIDE RECORDS SUMMARY | 2024-05-31 17:43 | XMS_ITS | Encounter Summary ---
Author Organization [facility] Address [facility] [place] [address] Care Team Providers Care Director Call Name Role Phone Maryuri Evans MD Primary Care Provider [phone] Reason for Referral * Consultation (Routine) - Duplicate Referral Specialty Diagnoses / Procedures Referred By Contac t Referred To Contact Infectious Diseases Diagnoses Ankle abscess Wound infection complicating hardware, sequela Hilda Willams MD [facility] [place] [address] Hilda Willams MD [facility] [place] [address] Referral ID Status Reason Start Date Expiration Date Visits Requested Visits Authorized [id number] Duplicate Referral Assume Subset of Care 03/16/2021 03/16/2022 1 1 Reason for Visit * Auth/Cert Specialty Diagnoses / Procedures Referred By Contac t Referred To Contact Diagnoses Ankle wound, left, sequela Left ankle wound Procedures PRO FREE FASCIAL FLAP W MICROVASC ANAST PRO SPLIT GRFT TRUNK, ARM, LEG <100SQCM @FLAP, FREE FASCIAL, W/ MICRO ANASTOMOSIS, LOWER EXTREMITY (WRVU 36.9) SPLIT THICK SKIN GRAFT,100 SQ CM OR LESS, LEGS (WRVU 9.9) Referral ID Status Reason Start Date Expiration Date Visits Re quested Visits Authorized [id number] 1 1 Encounter Details Date Type Department Care Team (Latest Contact Info) Description 03/13/2021 6:59 AM EDT - 03/17/2021 4:56 PM EDT Hospital Encounter [address] [place] [address] Aydee Franklin MD [facility] [place] [address] Closed fracture of left ankle with routine healing; Ankle abscess; Wound infection complicating hardware, sequela; Ankle wound, left, sequela Discharge Disposition: Home with VNA Social History Tobacco Use Types Packs/Day Years [...] Sign Reading Time Taken Comments Blood Pressure 120/66 03/17/2021 11:37 AM EDT Pulse 88 03/17/2021 11:37 AM EDT Temperature 37 ??C (98.6 ??F) 03/17/2021 11: 37 AM EDT Respiratory Rate 18 03/17/2021 11:3 7 AM EDT Oxygen Saturation 94% 03/17/2021 11: 37 AM EDT Inhaled Oxygen Concentration - - Weight 74.3 kg (163 lb 12.8 oz) 03/13/2021 7:28 AM EDT Height 157.5 cm (5' 2) 03/13/2021 7:28 AM EDT Body Mass Index 29.96 03/13/2021 7:28 AM EDT documented in this encounter Discharge Summaries * Ava Cheema, FACING MACHINE OPERATOR - 03/17/2021 9:09 AM EDT Plastic Surgery Service Inpatient Discharge Summary Patient Name: Emmanuel Salazar Patient Age: 60 y.o. : 1960 Attending Physician: Aydee Franklin MD Date of Admission: 03/13/2021 Date of Discharge: Code Status: 03/17/2021 Attempt Cardiopulmonary Resuscitation - Inpatient Primary Diagnosis: Active Hospital Problems Diagnosis ??? Ankle wound, left, sequela Resolved Hospital Problems No resolved problems to display. Secondary Diagnosis: None. Incidental Findings: None. History: History obtained through patient interview, review of relevant records, and/or discussion with referring provider. Emmanuel Salazar is a 60 y.o. female who was seen today for follow-up with left ankle wound. We discussed management. I recommended flap coverage of this wound given her exposed bone. We will plan toperform this on Tuesday. Cont wound vac until that time Past Medical History No past medical history on file. Past Surgical History Past Surgical History: Procedure Laterality Date ??? IR TUNNELED CENTRAL VENOUS ACCESS NON-DIALYSIS 03/16/2021 IR Tunneled Central Venous Access Non-Dialysis 03/16/2021 Yunior Flores MD [facility] ??? PRO ALVEOLOPLASTY W EXTRACTIONS, 4 OR MORE TEETH, PER QUADRANT N/A 09/11/2019 ALVEOPLASTY,IN CONJUNCTION WITH EXTRACTIONS,PER QUADRANT,ENT (WRVU 4.06) performed by Wesley Jacobo MD at [facility] OSC ? ? PRO DEBRIDEMENT BONE MUSCLE &/FASCIA 20 SQ CM/< Left 02/14/2021 DEBRIDEMENT SKIN, SUBCU, MUSCLE, BONE, LOWER EXTREMITY (WRVU 4.1) performed by Sabrina Capellan MDat [facility] MAIN OR ? ? PRO DEBRIDEMENT SUBCUTANEOUS TISSUE 20 SQCM/< Left 02/08/2021 DEBRIDEMENT SKIN AND SUBCU, LOWER EXTREMITY (WRVU 1.01) [facility] ? ? PRO DEBRIDEMENT SUBCUTANEOUS TISSUE 20 SQCM/< Left 02/10/2021 DEBRIDEMENT SKIN AND SUBCU, LOWER EXTREMITY (WRVU 1.01) performed by Jacobo De La Cruz MD at [facility] MAIN OR ? ? PRO DEBRIDEMENT SUBCUTANEOUS TISSUE 20 SQCM/< Left 02/12/2021 DEBRIDEMENT SKIN AND SUBCU, LOWER EXTREMITY (WRVU 1.01) performed by Sabrina Capellan MD at [facility] MAIN OR ??? PRO FREE FASCIAL FLAP W MICROVASC ANAST Left 03/13/2021 @FLAP, FREE FASCIAL, W/ MICRO ANASTOMOSIS, LOWER EXTREMITY (WRVU 36.9) performed by Aydee Franklin MD at [facility] MAIN OR ??? PRO FUSION/GRAFT OF ELBOW JOINT Right 2017 ARTHRODESIS, ELBOW JOINT WITH AUTOGENOUS GRAFT (WRVU 14.32) performed by Christopher Correa MD at [facility] MAIN OR ??? PRO REMOVAL DEEP IMPLANT Right 2017 REMOVAL OF IMPLANT, DEEP, ELBOW (WRVU 5.96) performed by Christopher Correa MD at [facility] MAIN OR ??? PRO REMOVAL ERUPTED TOOTH WITH ELEVATION OF MUCOPERIOSTEAL FLAP Bilateral 09/11/2019 SURGICAL EXTRACTIONS REQUIRING ELEVATION OF MUCOPERIOSTEAL FLAP AND REMOVAL OF BONE OR SECTION OF TOOTH (WRVU 1.09) performed by Wesley Jacobo MD at [facility] OSC ? ? PRO SPLIT GRFT TRUNK, ARM, LEG <100SQCM Left 03/13/2021 SPLIT THICK SKIN GRAFT,100 SQ CM OR LESS, LEGS (WRVU 9.9) [facility] Procedures: 03/13/2021 Surgeon(s) and Role: * Aydee Franklin MD - Primary * Jaime Negron MD - Resident: Procedure(s): @FLAP, FREE FASCIAL, W/ MICRO ANASTOMOSIS, LOWER EXTREMITY (WRVU 36.9) SPLIT THICK SKIN GRAFT,100 SQ CM OR LESS, LEGS (WRVU 9.9) Hospital Course: Emmanuel Salazar was admitted to the Plastic Surgery Service on 03/13/2021 after undergoing Left radial forearm free flap to left ankle for wound coverage. She tolerated the operation well and there were no apparent complications. She was admitted post-operatively for observation and management. 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 Her hospital stay was uncomplicated. Emmanuel Salazar was tolerating regular diet, and voiding without difficulty, afebrile with stable vital signs, andher pain was well controlled on oral pain medications when she was deemed ready for discharge on 03/17/2021. Updated Allergies/ADRs: Allergies Allergen Reactions ??? Latex Rash ??? Erythromycin Lactobionate Nausea Only ??? Metformin Nausea Only ??? Red Blood Cells Other (See Comments) Antibodies-Difficult to Crossmatch DO NOT REMOVE Please contact the Blood Bank at [phone] for questions. ??? Pollen Extracts Other (See Comments) Rhinusitus ??? Trazodone Other (See Comments) Hallucination ??? Adhesive Rash Skin Rash ??? Lisinopril Other (See Comments) Cough. Pending Lab Data at Discharge: @DCLABS@ Condition at Discharge: Stable Important Studies and Lab Data: Labs: Recent Labs 03/17/21 02403/16/21 0218 03/15/21 0005 WBC 10.6* 10.8* 10.7* HGB 10.2* 10.8* 10.4* HCT 32.1* 34.4* 32.0* PLATELET 286 294 273 Recent Labs 03/17/2123903/16/2121703/15/21 0005 NA 141 140 142 K 3.9 3.6 4.0 CL 106 107 110* CO2 26 23 24 BUN 11 8 7* CREATININE 0.68* 0.78 0.84 GLUCOSE 154 150 103 CALCIUM 8.5 8.8 8.3* MAGNESIUM 0.80 0.86 0.86 PHOS 3.0 2.9 2.9 Discharge Examination: Last value Range last 12 hrs Temperature Temp: 37 ??C (98.6 ??F) Temp: [37 ??C (98.6 ??F)] Heart Rate Heart Rate: 88 Heart Rate: [88-89] Blood Pressure BP: 120/66 BP: (120-148)/(66-72) Respiratory Rate Resp: 18 Resp: [18] SpO2 SpO2: 94 % SpO2: [92 %-94 %] General: Resting comfortably in no acute distress. Neuro: Awake, alert, responds to questions appropriately. Pulm: breathing comfortably on room air Incision: Flap warm and well perfused. Incision clean, dry, intact. No evidence of hematoma/seroma/infection. +signal RUE: Wound vac intact and holding suction, Sensation to all digits, hand WWP Discharge to: Home If discharged to rehab facility, name of facility: N/A. Discharge Medications: The following medications have been prescribed for you. If you notice any adverse reactions to your medications, please contact your primary care physician immediately or go tothe nearest Emergency Department. Your Medications New Medications Dose Details enoxaparin 40 mg/0.4 mL Syrg Commonly known as: Lovenox Inject 0.4 mLs subcutaneously nightly. 40 mg Quantity: 14 Syringe Refills: 0 oxyCODONE 5 mg Tab Commonly known as: Roxicodone Take 1 tablet by mouth every 4 hours as needed for Pain (For pain 4-10). 5 mg Quantity: 10 tablet Refills: 0 Continued medications, unchanged Dose Details acetaminophen 500 mg Tab Commonly known as: Tylenol Take 2 tablets by mouth every 8 hours. 1,000 mg Quantity: 180 tablet Refills: 0 aspirin EC 81 mg Tbec Take 1 tablet by mouth 2 times daily for 30 days. (after 30 days, or when instructed by orthopedics, resume once daily dosing) 81 mg Quantity: 60 tablet Refills: 0 buPROPion XL 150 mg Tablet Extended Release 24 hr Commonly known as: Wellbutrin XL Take 150 mg by mouth every morning. 150 mg Refills: 0 CALCIUM 500 ORAL Take by mouth. Refills: 0 cyclobenzaprine 5 mg Tab Commonly known as: Flexeril Three times daily as needed for muscle spasms Quantity: 30 tablet Refills: 0 DAPTOmycin 500 mg Solr Commonly known as: Cubicin Inject 700 mg into the vein daily for 35 days. 700 mg Quantity: 46 each Refills: 0 folic acid 1 mg Tab Commonly known as: Folvite Take by mouth. Refills: 0 gabapentin 300 mg Cap Commonly known as: Neurontin TAKE ONE CAPSULE BY MOUTH THREE TIMES A DAY Refills: 0 glipiZIDE XL 10 mg Tr24 Commonly known as: Glucotrol XL TAKE TWO TABLETS BY MOUTH EVERY DAY Refills: 3 hydrOXYzine 50 mg Cap Commonly known as: VISTARIL TAKE ONE CAPSULE BY MOUTH TWICE A DAY Refills: 0 Lantus Solostar U-100 Insulin 100 unit/mL (3 mL) pen Inject 20 Units subcutaneously nightly. Generic drug: insulin glargine 20 Units Quantity: 1 vial Refills: 3 levothyroxine 50 mcg Tab Commonly known as: Synthroid daily. Refills: 0 losartan 50 mg Tab Commonly known as: Cozaar Take 25 mg by mouth daily. Take 1/2 tablet a day 25 mg Refills: 0 multivitamin Tab Commonly known as: THERAGRAN Take 1 tablet by mouth daily. 1 tablet Refills: 0 Elizabeth Pen Needle 32 gauge x 5/32 Ndle USE 1 PEN NEEDLE ONCE DAILY AT BEDTIME Generic drug: insulin needles (disposable) Refills: 0 ondansetron 4 mg Tab Commonly known as: Zofran Take 1 tablet by mouth every 8 hours as needed for Nausea. 4 mg Quantity: 20 tablet Refills: 0 OneTouch Delica Plus Lancet 30 gauge Misc TEST THREE TIMES A DAY Generic drug: lancets Refills: 0 OneTouch Ultra Blue Test Strip Strp TEST THREE TIMES A DAY Generic drug: blood sugar diagnostic strips Refills: 0 OneTouch Ultra2 Meter Misc TEST DIRECTED Generic drug: Blood-Glucose Meter Refills: 0 pantoprazole EC 40 mg Tbec Commonly known as: Protonix Take 1 tablet by mouth daily. 1 tablet Refills: 3 polyethylene glycoL 17 gram Pwpk Commonly known as: Miralax Take 17 g by mouth daily. Hold for loose stools please! Thanks! 17 g Quantity: 30 each Refills: 0 senna-docusate 8.6-50 mg Tab Commonly known as: Pericolace Take 2 tablets by mouth 2 times daily. Hold for loose stools please! Thanks! 2 tablet Quantity: 120 tablet Refills: 0 sertraline 100 mg Tab Commonly known as: ZOLOFT Take 2 tablets by mouth daily. 2 tablet Refills: 3 topiramate 100 mg Tab Commonly known as: Topamax TAKE ONE TABLET BY MOUTH TWICE A DAY Refills: 3 Victoza 2-Terrance 0.6 mg/0.1 mL (18 mg/3 mL) Pnij INJECT 0.6MG SUBCUTANEOUSLY DAILY FOR 1 WEEK THEN 1.2MG DAILY Generic drug: liraglutide Refills: 0 Emmanuel Salazar is getting a prescription opioid for the treatment of acute post-operative pain related to the surgical procedure during this encounter. Pt has been advised to take the smallest dosepossible to control pain and as the pain improves to take smaller doses and increase the time between doses. In addition to this medication, pt was educated on the non-opioid pain medications that can be taken for adjunct treatment of pain. Non-pharmacological treatments were also discussed that include but not limited to ice, elevation, and activity modification as appropriate. The Acute Opioid Therapy Informed Consent form has been completed during this encounter and sent tomedical records for scanning to chart. Follow-up Care & Plans: To make an appointment or for questions about scheduling, please contact our administrative offices at [phone]. For clinical questions, please call our nurses at [phone]. Both offices are open Tuesday thru Tuesday 8a - 5p. With emergencies after hours, call the hospital paper cone machine operator at [phone] and ask for the Plastic Surgery Resident supervisor [employer]. Scheduled Appointments: Future Appointments Date Time Provider Department Center 03/20/2021 9:00 AM Juani Miller DO [facility] ID 5C [facility] 03/20/2021 1:00 PM CAST ROOM 3A [facility] ORTH 3A [facility] 03/20/2021 1:30 PM MH DX ROOM 3 MH Xray [facility] Rad 03/20/2021 2:20 PM Dorina Campbell APRN [facility] ORTH 3A [facility] 03/24/2021 10:20 AM Anabell Delarosa APRN [facility] PLAS 4M [facility] Outpatient Services/Studies: OPAT: Order / Recommendation for Post Discharge IV Antibiotic Management Referral Priority: Routine Referral Type: Consultation Referral Reason: Assume Subset of Care Referred to Provider: HILDA WILLAMS Number of Visits Requested: 1 Referral to Home Health - at DISCHARGE Order Comments: DOCUMENTATION FOR VNA SERVICES (INCLUDING THOSE PATIENTS WITH MEDICARE COVERAGE REQUIRING HOME VNA SERVICES AND/OR HOSPICE SERVICES) PATIENT'S LOCATION: Emmanuel Salazar [address] [facility] [address] (home) Cell: Telephone Information: Automobile Spring Repairer's Name: Self In discussion with the attending physician, it is certified that this patient is under their care and that they, or a Nurse Practitioner,Clinical Nurse specialist or Physician Medical Technologist Blood Bank who is working directly with them, had a face to face encounter that meets the physician face to face encounter requirements with this patient on 03/17/2021 The encounter with the patient was in whole, or in part, for the following medical condition, whichis the primary reason for home health care services: Wound care, Lovenox, OPAT therapy In discussion with the provider, it is certified that, based on their findings, the following services are medically necessary for home health services. To provide the following care/treatments with the clinical findings supporting the need for services as follows: HOME CARE ORDERS: RN ORDERS:Assess wound or incision, vital signs, cardiopulmonary status, nutrition, hydration, elimination, meds effectiveness and management; reinforce education re health issues Home with IV ABX and PICC line changes PT ORDERS: Continue rehab for endurance, gait stability and strength with mobility and transfers. Home safety evaluation. Home exercise program if appropriate. OT: assess and continue rehab for managing ADL's. HOME HEALTH CARE AGENCY: [facility] [employer]. PHONE: [phone] FAX: [phone] Start of care: Day after discharge Please note that any additional orders needs or changes will need to be obtained from this patient's PCP: Maryuri Evans MD [address] / [place] [address] All [facility] agencies which cover the area of patient's residence have been reviewed, either verbally jeaneth writing, and patient/family have chosen the home health care agency noted Question Response Notes Agency name and contact information [facility] Patient location post discharge Home What services are requested Registered Nurse What services are requested Physical Therapy What services are requested Occupational Therapy Responsible MD post discharge contact info PCP Referral for Outpatient Antibiotics Order Comments: Follow OPAT orders Question Response Notes Vendor / contact information [place] Patient location post discharge Home Service requested IV ABX and PICC dressing equip. Start date 03/18/2021 Instructions Given to Patient at Discharge: Patient Instructions LOWER EXTREMITY RECONSTRUCTION DISCHARGE INSTRUCTIONS WOUND CARE: Dressing Bacitracin xeroform and cover every other day until follow up appt You must avoid sunlight exposure to your incision(s). Do not use any over the counter ointments on the incisions postoperatively unless instructed by your provider. SHOWERING: No showering ACTIVITIES: Elevate left leg when not dangling, follow dangling protocol below. Non weight bearing to extremity Minimize contact to affected area(s). No heavy lifting until seen by MD. No driving or operating heavy machinery when on narcotics. Dangling Protocol - prior to initiating any dangling trial, assess flap color, temperature, engorgement, patient symptoms of throbbing/pain, and doppler in the flap for a signal - gently wrap foot in dali bandage for gentle compression - dangle foot off side of bed (in dependent position) for 5 minutes - after 5 minutes, remove the dali wrap, elevate foot (foot above heel, heel above knee, knee above hip), and reassess flap - do this twice daily for 5 minutes to start - if the flap remains swollen or pt has continued throbbing pain, skip dangling until it returns toits pre-dangle appearance - if dangle is tolerated, add another 5 minute session, then add 5 minutes to one dangle per day For instance, Day 1. 5,5 ; Day 2 5,5,5 ; Day 3 10,5,5 ; Day 4 10,10,5 - if dangle not tolerated, do not add time to protocol - instead go back one step - if flap remains blue/purple or doppler signal is lost, alert plastic surgery team [phone] DIET: Regular healthy diet. CALL MD IF: Your incision opens up. You have signs of infection that include: a temperature over 100.4F or 38C, redness or warmth spreading away from the incision lines after the first 48 hours, you notice a yellow pus-like or foul smelling drainage larger than dime size from the incisions or drainage sites, you feel increased pain that is not relived by your pain medicine. During office hours: Tuesday - Tuesday 8am-5pm call [phone]. On weekends or after hours call [phone] and ask the paper cone machine operator to page the plastic surgery resident supervisor [employer]. MEDICATIONS: You may resume your home medications You have been prescribed Lovenox for blood clot prevention. Narcotics: You may be given a prescription for a narcotic medication immediately following your surgery. Narcotics are prescribed for short-term use to help treat your pain. Surgical pain requiring narcotics will usually be greatly decreased 2-3 days after surgery & should be mild to absent shortly after that. We will prescribe a narcotic pain reliever following your surgery. This will be determined by your surgeon. Narcotics do not reduce inflammation and it is inflammation that is usually a major cause of pain after surgery. Narcotics have many side effects such as constipation, lightheadedness, dizziness, sedation, confusion, nausea and vomiting. Driving and the use of alcohol are not recommended while you are using narcotic pain medications. Non-steroidal anti-inflammatories (NSAIDS) such as aspirin, Aleve and ibuprofen (Advil, Motrin) aremedications that reduce pain and inflammation. If you find your pain is not adequately controlled with the prescribed dose of your narcotic pain medication, NSAIDS may be used 48 hours after surgery with your narcotic to help alleviate the pain caused by inflammation. As you progress through your post-operative period, your pain should decrease and the use of narcotic medications should be less necessary. To reduce your chance of side effects, it is recommended that you save your narcotic medication for nighttime use and switch to NSAIDS or Acetaminophen (Tylenol) during the day. Alternative means of pain relief such as rest and relaxation, positioning, as well as decreasing stimulants such as coffee, tea, soft drinks, and nicotine may also help to alleviate pain. If you continue to experience significant pain 4-5 days after your procedure, it may be necessary to be re-evaluated by your physician. PRESCRIPTION RENEWALS: Due to patient safety, narcotic renewals will not be honored after hours or on weekends. It is best to make your request 2-3 days before you run out of your medication as it will take at least 24 hours for physician approval and nurse follow-up. Note that certain prescriptions, such as Percocet, Oxycodone, Vicodin, & Hydrocodone can not becalled in to a pharmacy and must be picked up or mailed to you. If mailed to you, expect 2-5 business days prior to arrival. CONTACT INFORMATION: During office hours: Tuesday through Tuesday 8 am to 5 pm Call [phone] On weekends or after hours: Call [phone] and ask the paper cone machine operator to page the Plastic Surgery Resident supervisor [employer]. Future Appointments Date Time Provider Department Center 03/20/2021 9:00 AM Juani Miller DO [facility] ID 5C [facility] 03/20/2021 1:00 PM CAST ROOM 3A [facility] ORTH 3A [facility] 03/20/2021 1:30 PM [facility] DX ROOM 3 MH Xray [facility] Rad 03/20/2021 2:20 PM Dorina Campbell APRN [facility] ORTH 3A [facility] General Instructions [facility] Vascular/Interventional Radiology DISCHARGE INSTRUCTIONS FOR TUNNELED CENTRAL VENOUS CATHETER CARE Bandage: There is a sterile dressing over the catheter site consisting of a small gauze with a clear dressing ( Tegaderm) over it. This dressing will be changed or removed by the hospital staff, and you should not change it at home. If the clear dressing becomes loose, you should place tape over the edges to secure it in place. Never touch the open end of the CVC when the cap has been removed. Bathing: You may shower 72 hours after the catheter has been inserted. When you shower or bathe, you must cover the site with a waterproof material, such as plastic wrap, taped over the dressing and injection caps. Pain: Apply ice bag to site (s) at 30 minute intervals (30 minutes on and 30 minutes off) for 24 hours. May use as needed for pain and/or bruising after 24 hours. When to call your healthcare provider: ?? If you develop pain, redness, drainage of swelling at the catheter or neck puncture site. ?? If you develop a fever of 101 degrees or greater. ?? If you develop shaking chills. ?? If the catheter breaks, or you notice leaking from one of the ports or the catheter itself. ?? If you notice bleeding from the catheter or the neck puncture sites, apply firm pressure over both sites simultaneously for 10-15 minutes. If you are still bleeding after 10-15 minutes, have someone drive you to the nearest Emergency Department or call 911. When to call the Interventional Radiology Department: Please call with any questions or concerns. If it is during regular working hours, please call [phone]. If it is after 5 pm or a weekend or holiday, call [phone] and ask for the Toe Sewer supervisor [employer] for Interventional Radiology. You have received medication during your procedure to help lessen anxiety and keep you comfortable.We recommend that you do not drive, operate equipment, sign any important documents, or smoke unattended for 24 hours following your procedure. Be careful on stairs, as you may be unsteady on your feet. You may eat a regular diet as tolerated IV site -- slight redness, or tenderness is normal, you can use a warm compress. If tenderness and redness increases or foul drainage occurs, please contact your M. D. Updated 06/07/19 Future Appointments and Orders Future Appointments and Orders Future Appointments Provider Department Dept Phone 03/20/2021 9:00 AM Juani Miller, DO Infectious Disease at [facility] Arrive at: [facility] Area [phone] 03/20/2021 1:00 PM CAST ROOM 3A Orthopaedics at [facility] Arrive at: [facility] Area 3A [phone] 03/20/2021 1:30 PM [facility] DX ROOM 3 XRay at [facility] Arrive at: Post Commander Area 3T [phone] Please go to Post [facility] Area 3T ([place] Location). 03/20/2021 2:20 PM Dorina Campbell APRN Orthopaedics at [facility] Arrive at: Post Commander Area 3A [phone] 03/24/2021 10:20 AM Anabell Delarosa APRN Plastic Surgery at [facility] Arrive at: Post Commander Area 4M [phone] Future Orders Complete By Expires OPAT: Order / Recommendation for Post Discharge IV Antibiotic Management [XKO280 CPT(R)] As directed Process Instructions: If no progress note charted, please enter Clinical details in comments. Scheduling Instructions: Comments: Please Fax all results to: OPAT Program Infectious Disease Section [facility], [place] [address] FAX: After hours, please contact the Infectious Disease Physician supervisor mainspring fabrication at . If this order was signed greater than 72 hours prior to [facility] discharge, please call to confirm the accuracy of this order. Line care instructions Adult PICC Flush protocol with medication infusion (SASH): Before Med: 10ml Normal Saline After Med: 10ml Normal Saline then 3 ml Heparin (10 units/ml) Additional Lumens: Flush 2x's daily & PRN 10ml Normal Saline then 3ml Heparin (10 units/ml) Flush protocol after blood withdrawal: Before: 10 ml Normal Saline Draw blood After: 20 ml Normal Saline then 3 ml Heparin (10 units/ml) Flush without med (each lumen): Flush 2x's daily & prn: 10 ml Normal Saline then 3 ml heparin (10 units/ml) senior care for medication administration/call centre supervisor and catheter care/maintenance authorized. PICC Dressing Change weekly and PRN Please use CHG or Bio Patch Catheter Occlusion Management Instill reconstituted Cathflo 2mg per instillation (based on the volume of the catheter lumen). Mayrepeat x1 per occlusion incident. RN: Please care for PICC line including dressing changes weekly and prn. Please draw labs off of PICC line every Tuesday and PRN and fax results to [facility] at [phone]. Please see OPAT order for lab draw details. Please have RN visit for IV ABX teaching and ongoing assessment. Questions: ID Diagnosis: Wound infection of left ankle, osteomyelitis + hardware infection, post-op wound infection with hardware removal on 02/12 and possible underlying bone infection; s/p free flap to LLE on 03/13 Microorganisms being treated: MSSA, Enterococcus species Antibiotic Allergies: Erythromycin lactobionate Antibiotic: Daptomycin 700mg IV Q24h Special Instructions: Start date: 02/12/2021 Anticipated stop date: 03/26/2021 Labs: Q Tuesday: CBC/Diff, CMP Q Tuesday Inflammatory CRP Q Tuesday CPK Last documented weight (kg): 74.3 kg (163 lb 12.8 oz) Last documented height (cm): 157.5 cm (5' 2) Infectious Disease Attending: Hilda Willams MD Referral for Outpatient Antibiotics [[id number] CPT(R)] As directed Process Instructions: Scheduling Instructions: Comments: Follow OPAT orders Questions: Vendor / contact information: [facility] Patient location post discharge: Home Service requested: IV ABX and PICC dressing equip. Start date: 03/18/2021 Responsible MD post discharge contact info: Referral to Home Health - at DISCHARGE [[id number] CPT(R)] As directed Process Instructions: Scheduling Instructions: Comments: DOCUMENTATION FOR VNA SERVICES (INCLUDING THOSE PATIENTS WITH MEDICARE COVERAGE REQUIRING HOME VNA SERVICES AND/OR HOSPICE SERVICES) PATIENT'S LOCATION: [place] [address] [facility] [address] (home) Cell: Telephone Information: Automobile Spring Repairer's Name: Self In discussion with the attending physician, it is certified that this patient is under their care and that they, or a Nurse Practitioner,Clinical Nurse specialist or Physician Medical Technologist Blood Bank who is working directly with them, had a face to face encounter that meets the physician face to face encounter requirements with this patient on 03/17/2021 The encounter with the patient was in whole, or in part, for the following medical condition, whichis the primary reason for home health care services: Wound care, Lovenox, OPAT therapy In discussion with the provider, it is certified that, based on their findings, the following services are medically necessary for home health services. To provide the following care/treatments with the clinical findings supporting the need for services as follows: HOME CARE ORDERS: RN ORDERS:Assess wound or incision, vital signs, cardiopulmonary status, nutrition, hydration, elimination, meds effectiveness and management; reinforce education re health issues Home with IV ABX and PICC line changes PT ORDERS: Continue rehab for endurance, gait stability and strength with mobility and transfers. Home safety evaluation. Home exercise program if appropriate. OT: assess and continue rehab for managing ADL's. HOME HEALTH CARE AGENCY: [facility] PHONE: [phone] FAX: [phone] Start of care: Day after discharge Please note that any additional orders needs or changes will need to be obtained from this patient's PCP: Maryuri Evans MD [address] / [facility] [address] All [facility] agencies which cover the area of patient's residence have been reviewed, either verbally jeaneth writing, and patient/family have chosen the home health care agency noted Questions: Agency name and contact information: [facility] Patient location post discharge: Home What services are requested: Registered Nurse Physical Therapy Occupational Therapy Start date: Responsible MD post discharge contact info: PCP Call your doctor if: Please call your doctor immediately or go to an Emergency Department if you notice worsening pain not controlled by pain medications, uncontrolled headache, vision changes, chest pain, difficulty breathing, persistent nausea and vomiting, new redness or swelling in any extremities, new onset weakness or changes in sensation, or for any fevers greater than 100.4 or 38 F. Signed: Ava Cheema, FACING MACHINE OPERATOR 03/17/2021 Plastic Surgery Nursing Orders: - Dangle protocol - Baci/Xeroform and cover QOD documented in this encounter Discharge Instructions * Discharge Instructions* Ramon Benítez RN - 03/16/2021 2:32 PM EDT [facility] Vascular/Interventional Radiology DISCHARGE INSTRUCTIONS FOR TUNNELED CENTRAL VENOUS CATHETER CARE Bandage: There is a sterile dressing over the catheter site consisting of a small gauze with a clear dressing ( Tegaderm) over it. This dressing will be changed or removed by the hospital staff, and you should not change it at home. If the clear dressing becomes loose, you should place tape over the edges to secure it in place. Never touch the open end of the CVC when the cap has been removed. Bathing: You may shower 72 hours after the catheter has been inserted. When you shower or bathe, you must cover the site with a waterproof material, such as plastic wrap, taped over the dressing and injection caps. Pain: Apply ice bag to site (s) at 30 minute intervals (30 minutes on and 30 minutes off) for 24 hours. May use as needed for pain and/or bruising after 24 hours. When to call your healthcare provider: ?? If you develop pain, redness, drainage of swelling at the catheter or neck puncture site. ?? If you develop a fever of 101 degrees or greater. ?? If you develop shaking chills. ?? If the catheter breaks, or you notice leaking from one of the ports or the catheter itself. ?? If you notice bleeding from the catheter or the neck puncture sites, apply firm pressure over both sites simultaneously for 10-15 minutes. If you are still bleeding after 10-15 minutes, have someone drive you to the nearest Emergency Department or call 911. When to call the Interventional Radiology Department: Please call with any questions or concerns. If it is during regular working hours, please call [phone]. If it is after 5 pm or a weekend or holiday, call [phone] and ask for the Toe Sewer supervisor [employer] for Interventional Radiology. You have received medication during your procedure to help lessen anxiety and keep you comfortable.We recommend that you do not drive, operate equipment, sign any important documents, or smoke unattended for 24 hours following your procedure. Be careful on stairs, as you may be unsteady on your feet. You may eat a regular diet as tolerated IV site -- slight redness, or tenderness is normal, you can use a warm compress. If tenderness and redness increases or foul drainage occurs, please contact your M. D. Updated 06/07/19 * Patient Instructions* Ava Cheema Digna, FACING MACHINE OPERATOR - 03/16/2021 8:20 AM EDT LOWER EXTREMITY RECONSTRUCTION DISCHARGE INSTRUCTIONS WOUND CARE: Dressing Bacitracin xeroform and cover every other day until follow up appt You must avoid sunlight exposure to your incision(s). Do not use any over the counter ointments on the incisions postoperatively unless instructed by your provider. SHOWERING: No showering ACTIVITIES: Elevate left leg when not dangling, follow dangling protocol below. Non weight bearing to extremity Minimize contact to affected area(s). No heavy lifting until seen by MD. No driving or operating heavy machinery when on narcotics. Dangling Protocol - prior to initiating any dangling trial, assess flap color, temperature, engorgement, patient symptoms of throbbing/pain, and doppler in the flap for a signal - gently wrap foot in dali bandage for gentle compression - dangle foot off side of bed (in dependent position) for 5 minutes - after 5 minutes, remove the dali wrap, elevate foot (foot above heel, heel above knee, knee above hip), and reassess flap - do this twice daily for 5 minutes to start - if the flap remains swollen or pt has continued throbbing pain, skip dangling until it returns toits pre-dangle appearance - if dangle is tolerated, add another 5 minute session, then add 5 minutes to one dangle per day For instance, Day 1. 5,5 ; Day 2 5,5,5 ; Day 3 10,5,5 ; Day 4 10,10,5 - if dangle not tolerated, do not add time to protocol - instead go back one step - if flap remains blue/purple or doppler signal is lost, alert plastic surgery team [phone] DIET: Regular healthy diet. CALL MD IF: Your incision opens up. You have signs of infection that include: a temperature over 100.4F or 38C, redness or warmth spreading away from the incision lines after the first 48 hours, you notice a yellow pus-like or foul smelling drainage larger than dime size from the incisions or drainage sites, you feel increased pain that is not relived by your pain medicine. During office hours: Tuesday - Tuesday 8am-5pm call [phone]. On weekends or after hours call [phone] and ask the paper cone machine operator to page the plastic surgery resident supervisor [employer]. MEDICATIONS: You may resume your home medications You have been prescribed Lovenox for blood clot prevention. Narcotics: You may be given a prescription for a narcotic medication immediately following your surgery. Narcotics are prescribed for short-term use to help treat your pain. Surgical pain requiring narcotics will usually be greatly decreased 2-3 days after surgery & should be mild to absent shortly after that. We will prescribe a narcotic pain reliever following your surgery. This will be determined by your surgeon. Narcotics do not reduce inflammation and it is inflammation that is usually a major cause of pain after surgery. Narcotics have many side effects such as constipation, lightheadedness, dizziness, sedation, confusion, nausea and vomiting. Driving and the use of alcohol are not recommended while you are using narcotic pain medications. Non-steroidal anti-inflammatories (NSAIDS) such as aspirin, Aleve and ibuprofen (Advil, Motrin) aremedications that reduce pain and inflammation. If you find your pain is not adequately controlled with the prescribed dose of your narcotic pain medication, NSAIDS may be used 48 hours after surgery with your narcotic to help alleviate the pain caused by inflammation. As you progress through your post-operative period, your pain should decrease and the use of narcotic medications should be less necessary. To reduce your chance of side effects, it is recommended that you save your narcotic medication for nighttime use and switch to NSAIDS or Acetaminophen (Tylenol) during the day. Alternative means of pain relief such as rest and relaxation, positioning, as well as decreasing stimulants such as coffee, tea, soft drinks, and nicotine may also help to alleviate pain. If you continue to experience significant pain 4-5 days after your procedure, it may be necessary to be re-evaluated by your physician. PRESCRIPTION RENEWALS: Due to patient safety, narcotic renewals will not be honored after hours or on weekends. It is best to make your request 2-3 days before you run out of your medication as it will take at least 24 hours for physician approval and nurse follow-up. Note that certain prescriptions, such as Percocet, Oxycodone, Vicodin, & Hydrocodone can not becalled in to a pharmacy and must be picked up or mailed to you. If mailed to you, expect 2-5 business days prior to arrival. CONTACT INFORMATION: During office hours: Tuesday through Tuesday 8 am to 5 pm Call [phone] On weekends or after hours: Call [phone] and ask the paper cone machine operator to page the Plastic Surgery Resident supervisor [employer]. Future Appointments Date Time Provider Department Center 03/20/2021 9:00 AM Juani Miller DO [facility] ID 5C [facility] 03/20/2021 1:00 PM CAST ROOM 3A [facility] ORTH 3A [facility] 03/20/2021 1:30 PM [facility] DX ROOM 3 MH Xray [facility] Rad 03/20/2021 2:20 PM Dorina Campbell APRN [facility] [address]TH [address] [place] [address] documented in this encounter Medications at Time [...] needed for Nausea. 20 tablet 03/05/2021 12/30/2021 DAPTOmycin (Cubicin) 500 mg Recon Soln Inject 700 mg into the vein daily for 35 days. 46 each 02/19/2021 03/26/2021 aspirin EC 81 mg Tablet, Delayed Release (E.C.) Take 1 tablet by mouth 2 times daily for 30 days. (after 30 days, or when instructed by orthopedics, resume once daily dosing) 60 tablet 02/18/2021 03/20/2021 polyethylene glycoL (Miralax) 17 gram Powder in [...] as of this encounter Progress Notes * Urmila Hernández RN - 03/17/2021 3:08 PM EDT Patient Name: Emmanuel Salazar Patient Age: 60 y.o. Birthdate: 1960 Admit date: 03/13/2021 Attending Physician: Aydee Franklin MD Pt discharged to home with father. Discharge summary reviewed and pt verbalized understanding, questions answered. The following LDA's removed on discharge PIV x1. Tunneled cath left in place Assisted with mobility tech to maintain weight bearing precautions. Father states home platform walker for the wrong arm- thinks he can modify at home. Dc summary faxed to [facility]. Lovenox teaching done prior to DC. * Anton Murrieta RN - 03/17/2021 11:29 AM EDT [facility] Follow up Note: Referral to : NEINDRA Confirmed with Tuan from [facility] that patient will be seen 03/18/21 at 0900. Hospital teaching completed 03/17/21 at 1000 Delivery of IV supplies will occur 03/17/21 by 1999 to be delivered to verified home address. [facility] [phone] * oMno Felipe MD - 03/17/2021 7:01 AM EDT INTERVENTIONAL RADIOLOGY Inpatient Progress Note Admitted 03/13/2021 Procedure(s): Placement of right IJ tunneled single-lumen catheter. Post-procedure day: #1 Time of patient encounter: 0645 24 Hour Events: Patient reports oozing at the tunneled skin site which resolved. No other overnightevents related to the catheter. Last Value 24 Hour Range Temperature 36.8 ??C (98.2 ??F) Temp: [36.6 ??C (97.8 ??F)-37.2 ??C (99 ??F)] Heart Rate 96 Heart Rate: [84-96] Blood Pressure 146/72 BP: (97-151)/(46-112) Respiratory Rate 18 Resp: [9-18] SpO2 92 % SpO2: [86 %-98 %] Physical Exam GEN No distress, A&O CARDS RRR LUNGS CTA B/L Vasc ACCESS small amount of clotted blood beneath the dressing. No active bleed. Labs: Reviewed Imaging: No relevant interval imaging. Assessment: 60 y.o. female with chronic lower extremity wound necessitating prolonged IV antibiotics now status post right tunneled single-lumen catheter placement. Catheter is functioning. Plan: IR will sign off, please call with questions. * Ava Cheema APRN - 03/17/2021 6:54 AM EDT Plastic Surgery Inpatient Progress Note (Team Pager #[phone]) Date of surgery: 03/13/21 CC/Procedure(s): Left radial forearm free flap to left ankle Surgeon: Dr. Franklin Subjective: Patient doing well. Declined dangled at bedside on rounds this morning. Patient would like to go home today. Objective: BP 146/72 (BP Location (NBP): Right arm) Pulse 96 Temp 36.8 ??C (98.2 ??F) (Oral) Resp 18 Ht 157.5 cm (5' 2) Wt 74.3 kg (163 lb 12.8 oz) SpO2 92% BMI 29.96 kg/m?? Intake/Output Summary (Last 24 hours) at 03/17/2021 0654 Last data filed at 03/17/2021 0400 Gross per 24 hour Intake 875 ml Output 1600 ml Net -725 ml General: Resting comfortably in no acute distress. Neuro: Awake, alert, responds to questions appropriately. Pulm: breathing comfortably on room air Incision: Flap warm and well perfused. Incision clean, dry, intact. No evidence of hematoma/seroma/infection. +signal RUE: Wound vac intact and holding suction, Sensation to all digits, hand WWP Labs: Recent Labs 03/17/21 0240 03/16/21 0218 WBC 10.6* 10.8* HGB 10.2* 10.8* HCT 32.1* 34.4* NA 141 140 K 3.9 3.6 CL 106 107 BUN 11 8 CREATININE 0.68* 0.78 CO2 26 23 GLUCOSE 154 150 ANIONGAP 9 10 CALCIUM 8.5 8.8 ALBUMIN -- 3.0* AST -- 22 ALT -- 7 ALKPHOS -- 95 BILITOT -- 0.2 BILIDIR -- <0.1 PREALBUMIN 10* 10* Assessment: Emmanuel Salazar is a 60 y.o. female with a history of LLE wound from an ankle fracture2 months prior . Now admitted for post-operative management of flap. Tolerating dangle protocol well, educational sheet provided to patient at AM rounds. Tunneled catheter placed yesterday. May discharge from plastics perspective if OPAT is arranged. Plan: 1. Dressings/Drains: splint, wound vac on LUE - VAC removal prior to DC 2. Flap checks Q4H 3. Pain control: tylenol, oxycodone PRN 4. Antibiotics: daptomycin 5. Diet: diabetic diet 6. Activity: NWB LLE and RUE, Keep LLE elevated at all times unless participating in dangle protocol start today, 03/16 7. DVT prophylaxis: lovenox 8. Home medications: insulin for DM management 9. ID to write OPAT orders for final 2 weeks of Daptomycin, to end 03/26. Ancef DCd per ID recs. 11. Dispo: Will need 2 weeks of Lovenox and Lovenox teaching prior to discharge Plastic Surgery Inpatient Team Pager #[phone] * Zainab Briones APRN - 03/16/2021 3:18 PM EDT Plastic Surgery Inpatient Progress Note (Team Pager #[phone]) Date of surgery: 03/13/21 CC/Procedure(s): Left radial forearm free flap to left ankle Surgeon: Dr. Franklin Subjective: Patient doing well. Dangled at bedside on rounds this morning. Objective: BP (!) 151/112 Pulse 96 Temp 36.6 ??C (97.8 ??F) (Temporal) Resp 10 Ht 157.5 cm (5' 2) Wt 74.3 kg (163 lb 12.8 oz) SpO2 (!) 86% Comment: O2 placed on patient BMI 29.96 kg/m?? Intake/Output Summary (Last 24 hours) at 03/16/2021 1518 Last data filed at 03/16/2021 1200 Gross per 24 hour Intake 1048 ml Output 2350 ml Net -1302 ml General: Resting comfortably in no acute distress. Neuro: Awake, alert, responds to questions appropriately. CV: Regular rate Pulm: breathing comfortably on room air Incision: Flap warm and well perfused. Incision clean, dry, intact. No evidence of hematoma/seroma/infection. +signal Drains: COURTNEY draining SS fluid Labs: Recent Labs 03/16/21 0218 WBC 10.8* HGB 10.8* HCT 34.4* NA 140 K 3.6 CL 107 BUN 8 CREATININE 0.78 CO2 23 GLUCOSE 150 ANIONGAP 10 CALCIUM 8.8 PREALBUMIN 10* Assessment: Emmanuel Salazar is a 60 y.o. female with a history of LLE wound from an ankle fracture2 months prior . Now admitted for post-operative management of flap. Starting dangle protocol today. Plan: 1. Dressings/Drains: splint, wound vac on LUE - VAC removal tomorrow prior to DC 2. Flap checks Q4H 3. Pain control: tylenol, oxycodone PRN 4. Antibiotics: daptomycin 5. Diet: diabetic diet 6. Activity: bed rest / dangle protocol start today, 03/16 7. DVT prophylaxis: lovenox 8. Home medications: insulin for DM management 9. Other active issues: tunneled catheter in IR today 10. ID to write OPAT orders for final 2 weeks of Daptomycin, to end 03/26. Ancef DCd per ID recs. 11. Dispo (please indicated anticipated d/c date in addition to home needs for the corrections caseworker to consider): Plastic Surgery Inpatient Team Pager #[phone] * Cynthia Gebrer MD - 03/16/2021 3:18 PM EDT Plastic Surgery Inpatient Progress Note (Team Pager #[phone]) Date of surgery: 03/13/21 CC/Procedure(s): RFFF to LLE Surgeon: Rigoberto Subjective: Patient doing well. Objective: BP (!) 151/112 Pulse 96 Temp 36.6 ??C (97.8 ??F) (Temporal) Resp 10 Ht 157.5 cm (5' 2) Wt 74.3 kg (163 lb 12.8 oz) SpO2 (!) 86% Comment: O2 placed on patient BMI 29.96 kg/m?? Intake/Output Summary (Last 24 hours) at 03/16/2021 1519 Last data filed at 03/16/2021 1200 Gross per 24 hour Intake 1048 ml Output 2350 ml Net -1302 ml General: Resting comfortably in no acute distress. Neuro: Awake, alert, responds to questions appropriately. CV: Regular rate Pulm: breathing comfortably on room air Incision: Flap warm and well perfused. Incision clean, dry, intact. No evidence of hematoma/seroma/infection. +signal Drains: None Labs: Recent Labs 03/16/21 0218 WBC 10.8* HGB 10.8* HCT 34.4* NA 140 K 3.6 CL 107 BUN 8 CREATININE 0.78 CO2 23 GLUCOSE 150 ANIONGAP 10 CALCIUM 8.8 PREALBUMIN 10* Assessment: Emmanuel Salazar is a 60 y.o. female with a history of LLE wound . Now admitted for post-operative management of flap. Plan: 1. Dressings/Drains: splint, wound vac on RUE 2. Flap checks Q4H - transfer to floor 3. Pain control: tylenol, oxycodone PRN 4. Antibiotics: daptomycin 5. Diet: diabetic diet 6. Activity: bed rest with dangle protocol 7. DVT prophylaxis: lovenox 8. Home medications: insulin for DM management 9. Other active issues: now with tunneled line (placed 03/16) for home abx 10. Dispo (please indicated anticipated d/c date in addition to home needs for the corrections caseworker to consider): Plastic Surgery Inpatient Team Pager #[phone] Cynthia Gerber MD [facility] Ophthalmology PGY1 [phone] * Kalyani Dotson RN - 03/16/2021 2:42 PM EDT Infectious Disease/OPAT Program Teaching Visit Met with patient at bedside to discuss discharge on IV ABX. No change to previous OPAT order or responsibilities of the PHOTOGRAPHIC TECHNICIAN, infusion vendor, or ID clinic. Pt verbalized understanding. All questions answered. Anton Murrieta RN with [facility] will review abx administration with patient to ensure that she has the dexterity and additional support to continue with home infusions. 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 IV & PO ABX Medications: Daptomycin 700mg IV Q24h Anticipated end date: 03/26/2021 PHOTOGRAPHIC TECHNICIAN: [facility] Infusion vendor: [employer] [facility] IV Access: tunneled central line Placed: today Plan: discharge on OPAT program when medically ready. * Jacobo Noe - 03/16/2021 2:40 PM EDT [facility] Encounter Note Patient Name: Emmanuel Salazar : [id number] MR#: [id number] Admit Date: 03/13/2021 6:59 AM Hospital Day 3 days Narrative: Visited to introduce and assess acceptance of [facility] services.Pt was sleeping and I will visit an other time. Assessment: Intervention and Outcome: Follow-up: Time in Direct Care: Jacobo Noe 03/16/2021 * Marci Campbell RN - 03/16/2021 12:00 PM EDT The patient/account development representative has been provided a list of Home Health Agencies/DME vendors which servetheir preferred geographic area. A letter describing our affiliations was reviewed with them and they were educated about their right to choose where referrals are placed. Provided patient with [facility] Star Quality Rating for Home care hand out. Patient requests referral to: [facility] or [facility] PHONE: [phone] FAX: [phone] . Expected date of discharge: 03/17/2021 Referral routed to the [facility] Adviser for matching with agency/vendor and to provide any required information. * Chayito Ashraf - 03/16/2021 11:41 AM EDT Nutrition Services Note - Low Nutrition Acuity Emmanuel Salzaar is a 60 y.o. female Reason for intervention: ICU admit Nutrition Plan: Continue current diet. Encouraged good protein intake. Glucerna 2x/day. Monitor weight. Updated weight appreciated. Encourage good oral intake. Support and encouragement provided. DPt reports that her appetite is light and that she has not been very hungry. Electrical Machinist encouraged good protein intake. Pt agreed to trail of Glucerna 2x/day. Pt reports that she has lost a significant amount of weight since breaking her ankle on January 11. Nutrition will continue to monitor. Active Orders Diet Carb Control diet 45/45/60 CHO counting level 1 Frequency: Effective Now Number of Occurrences: Until Specified Admit Weight: 74.3 kg Estimated body mass index is 29.96 kg/m?? as calculated from the following: Height as of this encounter: 157.5 cm (5' 2). Weight as of this encounter: 74.3 kg (163 lb 12.8 oz). Wt Readings from Last 5 Encounters: 03/13/21 74.3 kg (163 lb 12.8 oz) 02/07/21 83 kg (183 lb) 11/21/20 80.7 kg (178 lb) 03/06/20 80.7 kg (178 lb) 09/11/19 78.9 kg (174 lb) Weight loss: potentially clinically significant, please update weight, pt reports UBW 186 lbs Appetite: Good (50%-75%) Food allergies:no known food allergies Chewing/Swallowing difficulty: none Nausea/Vomiting: no nausea and no vomiting Last Bowel Movement: 03/13/21 Patient education / questions: all nutrition related questions answered at this time Nutrition services to follow weekly through hospital course unless consulted in the interim. Chayito Ashraf Pager: [phone] * Scooter Mathis MD - 03/16/2021 11:21 AM EDTSummary: ID progress note INFECTIOUS DISEASE FOLLOW UP NOTE Patient ID: Emmanuel Salazar Room: [address] [place] [address] Active ID Issue(s): Post-op wound infection with hardware removal on 02/12, osteomyelitis. Current Antimicrobial Therapy: Daptomycin (700mg IV q24hr) 02/15- Cefazolin (2g IV q8hr) 03/13- Organisms isolated to date: 02/07-blood cultures-2 sets with no growth to date 02/08-intraoperative specimens-MSSA, Enterococcus faecalis (ampicillin-S) 02/10- intraoperative specimens-MSSA, Enterococcus faecalis 02/12-intraoperative specimens-MSSA (all hardware removed on 02/12) Intercurrent Events/Subjective Data: Pt admitted to SICU following surgery (L ankle wound coverage with radial forearm free flap) on 03/13 for flap checks. She reports mild diarrhea on daptomycin at home but no other concerns. She is looking forward to going home. History of Present Illness: Emmanuel Salazar is a 60 y.o. female with a history of L ankle wound infection/OM following trauma/fall on 01/11/21. She is s/p admission at [facility] 02/07-02/18 with several operations for I&D, wound vac placement/exchange, and hardware removal (removed 02/12). OR cultures revealed MSSA and Enterococcus faecalis. Antimicrobials were started 02/12 with vancomycin, switched to daptomycin 02/15, and she had been on IV daptomycin since. Following discharge on 02/18 she received outpatient parentheral antibiotic therapy with daptomycin. On 03/13 following forearm free flap surgery to cover the L ankle wound she was readmitted to the hospital for flap checks. Antimicrobials this admission are daptomycinand cefazolin. Review of Systems: Pertinent positives and negatives noted in HPI. 14 point ROS otherwise negative Medications: ??? DAPTOmycin (Cubicin) 700 mg in sodium chloride 0.9% 64 mL ??? topiramate (Topamax) tablet 100 mg ??? buPROPion XL (Wellbutrin XL) tablet 150 mg ??? cyclobenzaprine (Flexeril) tablet 5 mg ??? gabapentin (Neurontin) capsule 300 mg ??? levothyroxine (Synthroid) tablet 50 mcg ??? losartan (Cozaar) tablet 25 mg ??? pantoprazole EC (Protonix) tablet 40 mg ??? polyethylene glycoL (Miralax) packet 17 g ??? senna-docusate (Pericolace) 8.6-50 mg per tablet 2 tablet ??? sertraline (Zoloft) tablet 200 mg ??? sodium chloride 0.9 % (flush) (BD PosiFlush Normal Saline 0.9) flush 5 mL ??? sodium chloride 0.9 % (flush) (BD PosiFlush Normal Saline 0.9) flush 5-20 mL ??? lidocaine (Xylocaine) 1% (10 mg/mL) injection 3 mg ??? acetaminophen (Tylenol) tablet 1,000 mg ??? oxyCODONE (Roxicodone) tablet 5 mg ??? ondansetron (pf) (Zofran) (2 mg/mL) injection 4 mg ??? bisacodyL (Dulcolax) suppository 10 mg ??? [DISCONTINUED] glucose (GLUTOSE) 40% oral geL OR dextrose 10% infusion OR [DISCONTINUED] glucagon (Glucagen) (1 mg/mL) injection solution 1 mg ??? sodium chloride 0.9 % (flush) (BD PosiFlush Normal Saline 0.9) flush 5 mL ??? sodium chloride 0.9 % (flush) (BD PosiFlush Normal Saline 0.9) flush 5-20 mL ??? POCT Fingerstick Glucose AND insulin lispro (HumaLOG;Admelog) (100 unit/mL) subcutaneous injection vial 1-6 Units ??? enoxaparin (Lovenox) (40 mg/0.4 mL) subcutaneous injection 40 mg Allergies: Allergies Allergen Reactions ??? Latex Rash ??? Erythromycin Lactobionate Nausea Only ??? Metformin Nausea Only ??? Red Blood Cells Other (See Comments) Antibodies-Difficult to Crossmatch DO NOT REMOVE Please contact the Blood Bank at [phone] for questions. ??? Pollen Extracts Other (See Comments) Rhinusitus ??? Trazodone Other (See Comments) Hallucination ??? Adhesive Rash Skin Rash ??? Lisinopril Other (See Comments) Cough. Physical Exam: Last value Range last 24 hrs Temperature Temp: 36.7 ??C (98.1 ??F) Temp: [36.7 ??C (98.1 ??F)-37.2 ??C (99 ??F)] Heart Rate Heart Rate: 97 Heart Rate: [97] Blood Pressure BP: 114/60 BP: (114-132)/(50-73) Respiratory Rate Resp: 16 Resp: [16-22] SpO2 SpO2: 94 % SpO2: [90 %-96 %] General: NAD, sleeping HEENT: Oropharynx clear Cardiovascular: RRR -m/r/g Pulmonary: lungs CTAB Abdomen: Soft, NT/ND Ext: R forearm is bent with skin intact; L forearm with dressing; L lat thigh with dressing intact;L ankle wound dressed Skin: as above Neuro: A&O Psych: Pleasant Laboratory: Recent Labs 03/16/21 0218 03/15/21 0005 03/14/21 0030 WBC 10.8* 10.7* 11.7* HGB 10.8* 10.4* 10.2* HCT 34.4* 32.0* 30.9* PLATELET 294 273 256 Recent Labs 03/16/21 0218 03/15/21 0005 03/14/21 0030 NA 140 142 142 K 3.6 4.0 3.7 CL 107 110* 108* CO2 23 24 24 BUN 8 7* 7* CREATININE 0.78 0.84 0.83 No results for input(s): AST, ALT, ALKPHOS, BILITOT, BILIDIR in the last 168 hours. CRP (mg/L) Date Value 02/18/2021 29.1 (H) 02/07/2021 >300.0 (H) 01/02/2021 6.6 (H) Sed Rate (mm/hr) Date Value 02/07/2021 58 (H) 01/02/2021 5 No results found for: SPGRAVITYUA, PHUADIP, PROTEINUADIP, GLUCOSEU, KETONESUA, UROBILIUADIP, BLOODUADIP, NITRATEUA, LEUKOESTERUA, WBCUA, RBCUA, BILIRUBINUA Microbiology: Microbiology Results (Last 30 days) No results found for the last 720 hours. Radiology/Studies/Procedures: Results for orders placed or performed during the hospital encounter of 03/13/21 XR Elbow 3 Views Right (GENERIC) (Exam End: 03/13/2021 8:08 PM) Narrative EXAMINATION: XR ELBOW 3 VIEWS RIGHT (GENERIC) CLINICAL HISTORY: cast removed, evaluating hardware and for any displacement TECHNIQUE: 3 views RIGHT elbow COMPARISON: 02/06/2021 FINDINGS: Status post fusion at the elbow with plate and screws. A fracture of the proximal ulna adjacent to the most distal screw is redemonstrated. Alignment of this fracture is unchanged. There is progression of intraosseous remodeling and remodeling of the callus. Alignment of the hardware is unchanged. Impression Continued healing of periprosthetic fracture. Thank you for letting us participate in the care of this patient. If you are a health care provider and have any questions regarding this report, please contact the number below. For patients who have questions please contact the health youth care specialist that requested your imaging first. Electronically signed by: Joaquin Ferro MD, [facility] ([phone]), at 03/13/2021 8:29 PM Active ID Issue(s): L ankle wound infection/osteomyelitis. Impression: Emmanuel Salazar is a 60 y.o. female with a history of DM and L ankle trauma who has been on treatment for L ankle MSSA and E faecalis wound infection and OM since 02/12. She is admitted for flap closure of wound and needs ongoing OPAT therapy to finish treatment for her infection. Recommendations: - Please stop cefazolin. - Continue daptomycin 700mg IV q24. She will need access - midline not recommended on dapto, obtaintunneled PICC. End date 03/26. - Pt has appt with ID on 03/20 for follow up. This patient was discussed with ID attending Dr. Willams. Recommendations discussed with primary treating team. ID will sign off. Please contact us if further consultation required. Scooter Mathis MD Infectious Disease Fellow 03/16/2021 12:40 PM Associated attestation - Hilda Willams MD - 03/17/2021 4:48 PM EDT Attending Addendum: I have seen and examined the patient, reviewed the data and agree with the note by Dr. Mathis. S/p flap. No new infectious issues. Plan to complete the course she started previously. F/u in ID clinic. * Ramon Benítez RN - 03/16/2021 11:13 AM EDT [facility]GIO NURSING DATABASE Name: EMMANUEL SALAZAR Date of : 1960 AGE: 60 y.o. [address]: [address] [place] [phone] (home) Mobile: Telephone Information: Referring Provider: Maryuri Evans REASON FOR VISIT: Order Questions Answers Is the patient on anticoagulant / antiplatelet therapy ? Low Molecular Weight Heparin Reason for exam and clinical history: IV daptomycin - week 4 of 6 - had left PICC, now surgical site. right arm with cast. Clinical information / dupont questions: s/p left radial forearm free flap for chronic LLE wound on 03/13 Requested Date 03/16/21 Allergies Allergen Reactions ??? Latex Rash ??? Erythromycin Lactobionate Nausea Only ??? Metformin Nausea Only ??? Red Blood Cells Other (See Comments) Antibodies-Difficult to Crossmatch DO NOT REMOVE Please contact the Blood Bank at [phone] for questions. ??? Pollen Extracts Other (See Comments) Rhinusitus ??? Trazodone Other (See Comments) Hallucination ??? Adhesive Rash Skin Rash ??? Lisinopril Other (See Comments) Cough. Pertinent PMH: Patient Active Problem List Diagnosis Code ??? [...] S82.892D ??? Ankle wound, left, sequela S91.002S Date/Procedure Meds Given/Comments 03/16/2021 tunneled line placement Fentanyl 150mcg IV, Versed 3mg IV 1418 to procedure room 2 via stretcher. Onto table supine. All monitors, O2, safety strap in place.Meds per protocol. Laboratory Results: Lab Results Component Value Date CREATININE 0.78 03/16/2021 Lab Results Component Value Date K 3.6 03/16/2021 Lab Results Component Value Date PLATELET 294 03/16/2021 * Sangeeta Jackson RN - 03/15/2021 5:09 PM EDTSumvalerioy: Progress note OUTCOME EVALUATION NOTE: OUTCOME SUMMARY: No acute event. Pt AOx3; calm cooperative. L5 orders placed. Q4 flap checks unchanged. No PRN pain medication administered. Kraft DC-ed overnight. Straight cath x1. Pt has since voided spontaneously. Adequate UOP. PLAN MOVING FORWARD: Q4 flap. Move to floor when bed becomes available. PICC consult INDIVIDUALIZED FALL PREVENTION INTERVENTIONS: Patient-specific fall risk factors per assessment: [current deficits]: LLE flap; mobility deficits Assistance [level of assistance required for transfers and ambulation]: X1 assist Supervision [direct monitoring required during toileting and ADLs]: bed pen upon request; x1 assist Surveillance [continuous indirect monitoring]: Continuous Spo2 Monitoring Patient-specific fall prevention interventions for sensory deficits provided, if applicable: [X] N/A CPG GOAL OUTCOME EVALUATION: Ongoing * Joann Delcid MD - 03/15/2021 9:00 AM EDT Plastic Surgery Inpatient Progress Note (Team Pager #[phone]) Date of surgery: 03/13/21 CC/Procedure(s): RFFF to RLE Surgeon: Rigoberto Subjective: Patient doing well. Objective: BP 114/57 (BP Location (NBP): Right arm, Patient Position: Lying) Pulse 78 Temp 36.9 ??C (98.4 ??F) (Oral) Resp 18 Ht 157.5 cm (5' 2) Wt 74.3 kg (163 lb 12.8 oz) SpO2 98% BMI 29.96 kg/m?? Intake/Output Summary (Last 24 hours) at 03/15/2021 0900 Last data filed at 03/15/2021 0800 Gross per 24 hour Intake 1568 ml Output 2705 ml Net -1137 ml General: Resting comfortably in no acute distress. Neuro: Awake, alert, responds to questions appropriately. CV: Regular rate Pulm: breathing comfortably on room air Incision: Flap warm and well perfused. Incision clean, dry, intact. No evidence of hematoma/seroma/infection. +signal Drains: COURTNEY draining SS fluid Labs: Recent Labs 03/15/21 0005 WBC 10.7* HGB 10.4* HCT 32.0* NA 142 K 4.0 CL 110* BUN 7* CREATININE 0.84 CO2 24 GLUCOSE 103 ANIONGAP 8 CALCIUM 8.3* PREALBUMIN 9* Assessment: Emmanuel Salazar is a 60 y.o. female with a history of RLE wound . Now admitted for post-operative management of flap. Plan: 1. Dressings/Drains: splint, wound vac on RUE 2. Flap checks Q4H - transfer to floor 3. Pain control: tylenol, oxycodone PRN 4. Antibiotics: daptomycin, ancef 5. Diet: diabetic diet 6. Activity: bed rest 7. DVT prophylaxis: lovenox 8. Home medications: insulin for DM management 9. Other active issues: picc line for home abx 10. Dispo (please indicated anticipated d/c date in addition to home needs for the corrections caseworker to consider): Plastic Surgery Inpatient Team Pager #[phone] * Jim Bennett RN - 03/14/2021 6:55 PM EDT OUTCOME EVALUATION NOTE: OUTCOME SUMMARY: Patient A&Ox4, calm and cooperative. Diet advanced, eating well. ART line removed. Flap assessment WDL. IV access lost when ART line removed, IV team paged for assistance, unable to help; MD Aimee inserted PIV to RUE. PLAN MOVING FORWARD: Q1 hour flap and neurovasc assessment. Q4 hour VS. INDIVIDUALIZED FALL PREVENTION INTERVENTIONS: Patient-specific fall risk factors per assessment: [current deficits]: Left sided mobility deficits. Tripping hazards: lines, drains, tubes, wires. Assistance [level of assistance required for transfers and ambulation]: 1-2 assist. Supervision [direct monitoring required during toileting and ADLs]: 1-2 assist. Surveillance [continuous indirect monitoring]: ICU monitoring. Patient-specific fall prevention interventions for sensory deficits provided, if applicable: [X] Yes * Joann Delcid MD - 03/14/2021 10:41 AM EDT Plastic Surgery Inpatient Progress Note (Team Pager #[phone]) Date of surgery: 03/13/21 CC/Procedure(s): RFFF to RLE Surgeon: Rigoberto Subjective: Patient doing well. Objective: BP 147/68 Pulse 83 Temp 37 ??C (98.6 ??F) (Oral) Resp 25 Ht 157.5 cm (5' 2) Wt 74.3 kg (163 lb 12.8 oz) SpO2 94% BMI 29.96 kg/m?? Intake/Output Summary (Last 24 hours) at 03/14/2021 1041 Last data filed at 03/14/2021 1000 Gross per 24 hour Intake 3904 ml Output 2105 ml Net 1799 ml General: Resting comfortably in no acute distress. Neuro: Awake, alert, responds to questions appropriately. CV: Regular rate Pulm: breathing comfortably on room air Incision: Flap warm and well perfused. Incision clean, dry, intact. No evidence of hematoma/seroma/infection. +signal Drains: COURTNEY draining SS fluid Labs: Recent Labs 03/14/21 0030 WBC 11.7* HGB 10.2* HCT 30.9* NA 142 K 3.7 CL 108* BUN 7* CREATININE 0.83 CO2 24 GLUCOSE 114 ANIONGAP 10 CALCIUM 7.9* PREALBUMIN 10* Assessment: Emmanuel Salazar is a 60 y.o. female with a history of RLE wound . Now admitted for post-operative management of flap. Plan: 1. Dressings/Drains: splint, wound vac on RUE 2. Flap checks Q1H 3. Pain control: tylenol, oxycodone PRN 4. Antibiotics: daptomycin, ancef 5. Diet: diabetic diet 6. Activity: bed rest 7. DVT prophylaxis: lovenox 8. Home medications: insulin for DM management 9. Other active issues: picc line for home abx 10. Dispo (please indicated anticipated d/c date in addition to home needs for the corrections caseworker to consider): Plastic Surgery Inpatient Team Pager #[phone] * Puneet Rivera MD - 03/14/2021 9:35 AM EDT Critical Care Attending Daily Progress Note This patient was seen and examined. HPI: Emmanuel Salazar is a 60 y.o. female with of HTN (losartan, hydroxyzine), DM (glipizide, lantus, liraglutide), hyperlipidemia (diet-controlled), GERD (pantoprazole), MDD (sertraline, Wellbutrin), hypothyroidism (levothyroxine), psoriasis and chronic headaches (topiramate, gabapentin). ??Patient sustained an injury to her ankle on 01/11/2021 which became infected and underwent serial debridements and sterilization with with antibiotics. She underwent radial forearm free flap coverage of her chronic ankle wound today in the operating room and is admitted to the SICU for every hour flap checks. Active Problems ?? S/p radial forearm free flap to the left LE chronic wound ?? HTN, DM 24 Hour Events: ?? Admitted to the ICU postoperatively for flap checks. ?? No acute events overnight. Assessment, Management, and Decision Making Pt seen and examined with the critical care team with my full assessment and plan by systems as follows: Neuro: Patient alert and oriented this morning. Pain is well controlled on the current regimen of Tylenol and oxycodone. Patient did endorse some degree of mental distress last night regarding the recent passing of her mother. We will have a bit team consult today. We will continue with the currentpain control. CV: Hemodynamically stable at the present time maps are greater than 65 off pressors. PULM: Saturating well on room air. GI: Plastic surgery has okayed her for diet which will advance today. Narcotic bowel orders ordered. PPI ordered : Electrolytes well-balanced. We will Hep-Lock her IV. We will remove her Kraft if cleared by plastics HEME: Hemoglobin stable. On Lovenox for DVT prophylaxis ENDO: Insulin sliding scale moderate range. Home levothyroxine ID: Perioperative Ancef. T/L/D: Peripheral IVs. We will obtain a PICC line as per plastic surgery. We will discontinue her arterial line. DISPO: Full code in the ICU. Physical Exam Temp: [36.9 ??C (98.4 ??F)-37 ??C (98.6 ??F)] Heart Rate: [71-88] Resp: [10-23] BP: -- SpO2: [93 %-98 %] Heart Rate from SpO2: [70 bpm-89 bpm] General: Alert and oriented no acute distress. Lungs: Clear to auscultation bilaterally. Heart: Regular rate and rhythm Abdomen: Soft and nontender Extremities: Left upper extremity dressing intact. She is neurovascularly intact distal. Left lowerextremity free flap with dopplerable pulse. Flap does not appeared congested. Neuro: Nonfocal neuro exam Is this patient critically ill? Is there a high potential of sudden, clinically significant, or life threatening deterioration? No Is there a need for direct personal assessment and management to treat/prevent multiple vital organfailure/deterioration? Yes * Omid Fraser MD - 03/14/2021 2:13 AM EDT ORTHOPAEDIC SURGERY INPATIENT PROGRESS NOTE Patient Name: Emmanuel Salazar Age: 60 y.o. Surgery/Issue: Right ankle fusion,L ankle SUE Attending: Dr. Capellan Date of surgery: 02/12 for L ankle SUE Subjective/Events: Patient is currently admitted to the ICU after undergoing a radial forearm free flap for coverage of her left ankle. In the operating room, her right cast was removed for IV placement. X-rays were obtained postoperatively for evaluation of right elbow fracture at the distal aspect of the plate. Theoriginal plan was for cast for 4 weeks which would be next week. She is currently been in a cast for 3 weeks. She reports no pain or instability to her right upper extremity. She is currently in a splint to the left upper extremity from the free flap. Objcetive: Temp: [36.7 ??C (98.1 ??F)-37 ??C (98.6 ??F)] Heart Rate: [71-97] Resp: [10-20] BP: (163)/(72) Intake/Output Summary (Last 24 hours) at 03/14/2021 0213 Last data filed at 03/14/2021 0106 Gross per 24 hour Intake 2196 ml Output 1450 ml Net 746 ml Lab Results Component Value Date NA 142 03/14/2021 K 3.7 03/14/2021 CL 108 (H) 03/14/2021 CO2 24 03/14/2021 BUN 7 (L) 03/14/2021 CREATININE 0.83 03/14/2021 GLUCOSE 114 03/14/2021 CALCIUM 7.9 (L) 03/14/2021 Lab Results Component Value Date WBC 11.7 (H) 03/14/2021 HGB 10.2 (L) 03/14/2021 HCT 30.9 (L) 03/14/2021 MCV 85.1 03/14/2021 PLATELET 256 03/14/2021 Exam: General: awake/alert, responds to questions CV: RRR Resp: Breathing comfortably, lungs CTAB RUE: Palpable elbow arthrodesis plate with no skin complications No instability noted at the distal aspect of the plate with no tenderness palpation this region Motor intact to wrist flexion/extension, digit flexion/extension Brisk capillary refill distally, fingers warm/well-perfused. Imaging: X-rays of the right elbow were obtained which per my review showed continued healing of the fracture of the distal aspect of the arthrodesis plate. No acute fractures or dislocations. A/P: Emmanuel Salazar is a 60 y.o. female admitted to the ICU status post free flap who is being treated in a long-arm cast for a fracture at the distal aspect of her elbow arthrodesis plate. She hasbeen in a cast for approximately 3 weeks. I discussed with patient that the fracture appears to be healing but not completely healed at this point. I offered to place a new cast. The patient voiced her interest in not being put in another cast at this point especially since she is in a splint on her left arm. She said she will be minimally mobile due to the flap and could manage without the cast.We will review her x-rays further in morning conference and discuss if any additional casting or splinting is required. She can remain out of the cast until instructed otherwise. Activity: NWB RUE, LLE DVT prophylaxis: Per Primary Antibiotics: Per primary Omid Fraser MD 03/14/2021 Pager: [phone] Associated attestation - Sabrina Capellan MD - 03/18/2021 6:18 AM EDT Patient seen and examined. Agree with resident note. Micaela Capellan MD Department of Orthopaedics 03/18/21 * Ferdinand Morales, - 03/14/2021 12:38 AM EDT Brief Internal Progress Note: Patient was seen after nursing informed team that patient was refusing medications and care due to recent change from regular diet to NPO status. Patient was refusing all care including blood sugar checks, vitals, and all medications; Plastic Surgery was made aware of changes. Due medications were r eviewed, and potential side effects and consequences of missing dosages was explained, including: hyperglycemia, hypoglycemia, stroke, PE, and other serious health consequences. Patient did respond stating I have a DO NOT RESUSCITATE order and displayed complete capacitance, and full comprehension with understanding of sequelae of missing medications and refusing care. Patient was once approached with nursing staff, and then after with physician alone. Ferdinand Morales DO Addendum: After further discussion with staff, patient was amenable vitals, doppler checks, and labs. We willcontinue to address needs and scheduled care. * Patrick Henning MD - 03/13/2021 11:54 PM EDT PLASTIC SURGERY POST OP CHECK Name: Emmanuel Salazar Age/Sex: 60 y.o. female Attending: Aydee Franklin MD Hospital Day: 2 1 Day Post-Op Patient ID/Reason for Admission Emmanuel Salazar is a 60 y.o. female with chronic wound of the left ankle requiring free flap repair. Interval History Surgery: Procedure(s): @FLAP, FREE FASCIAL, W/ MICRO ANASTOMOSIS, LOWER EXTREMITY (WRVU 36.9) SPLIT THICK SKIN GRAFT,100 SQ CM OR LESS, LEGS (WRVU 9.9) Subjective/Events: Patient denies fever, chills, chest pain, shortness of breath, dizziness, headache, abdominal pain, nausea, vomiting, numbness, tingling. Pain is well controlled. She is very frustrated that she was promised food after surgery but is being kept NPO in case there are complicationswith her flap. The possibility of complications and importance of maintaining NPO status were discussed at length but patient has refused any medications and lab draws whatsoever. Vitals Last value 24hr Range Temperature: 36.9 ??C (98.4 ??F) Temp: [36.7 ??C (98.1 ??F)-37 ??C (98.6 ??F)] Heart Rate: 86 Heart Rate: [71-97] Blood Pressure: 163/72 BP: (163)/(72) Respiratory Rate: 23 Resp: [10-23] SpO2: 95 % SpO2: [93 %-99 %] Intake & Output Intake/Output Summary (Last 24 hours) at 03/14/2021 0659 Last data filed at 03/14/2021 0600 Gross per 24 hour Intake 3421 ml Output 1825 ml Net 1596 ml Physical Exam General: NAD, non-ill appearing Face: Symmetric without dysmorphic features Eyes: EOMI, conjunctiva healthy Ears: Auricles symmetric, no lesions Nose: Patent nares, grossly normal appearance Oral Cavity/Pharynx: Mucosa is pink, oropharynx symmetric Neck: Soft, trachea midline Chest: Unlabored breathing, regular rate Neuro: Alert & oriented, moving extremities x 4 Labs Recent Labs 03/14/21 0030 WBC 11.7* HGB 10.2* HCT 30.9* PLATELET 256 NA 142 K 3.7 CL 108* CO2 24 BUN 7* CREATININE 0.83 GLUCOSE 114 CALCIUM 7.9* MAGNESIUM 0.97 PHOS 2.5 Imaging No post-imaging ASSESSMENT & PLAN Emmanuel Salazar is a 60 y.o. female s/p Procedure(s): @FLAP, FREE FASCIAL, W/ MICRO ANASTOMOSIS, LOWER EXTREMITY (WRVU 36.9) SPLIT THICK SKIN GRAFT,100 SQ CM OR LESS, LEGS (WRVU 9.9). Patient is doing well postoperatively and denies significant pain but is refusing lab draws and medications. Continue to re-engage regarding importance of cooperating with care plan. LLE flap looks to be well perfused with no signs of dehiscence , drainage, fluctuance, erythema. - continue routine post-op care. - draw labs if patient allows (mainly glucose) and give meds as tolerated __ Patrick Henning MD, PGY1 03/14/21 6:59 AM Plastic Surgery Team Pager: [phone] * Jim Bennett RN - 03/13/2021 5:49 PM EDT OUTCOME EVALUATION NOTE: OUTCOME SUMMARY: Patient admitted to SICU room 6 from OR. Patient A&Ox4, calm and cooperative with cares. Pain controlled with PO tylenol and oxy. LLE flap with pulse audible on doppler, toes with brisk cap refill and warm to touch. Reports numbness to right pinky finger. Kraft catheter in place, making adequate c/y/u. Last BM 03/13/21. LLE elevated on pillows. PLAN MOVING FORWARD: Q1 hour FLAP assessment. Q4 hour VS. F/u right elbow X-ray (cast removed early in OR d/t need for IV access) INDIVIDUALIZED FALL PREVENTION INTERVENTIONS: Patient-specific fall risk factors per assessment: [current deficits]: Tripping hazards: lines, drains, tubes, wires. Narcotic pain regimen. Assistance [level of assistance required for transfers and ambulation]: 1-2 assist for repositioning in bed. Supervision [direct monitoring required during toileting and ADLs]: 1-2 assist. Surveillance [continuous indirect monitoring]: ICU monitoring. Patient-specific fall prevention interventions for sensory deficits provided, if applicable: [X] Yes documented in this encounter H&P Notes * Yunior Flores MD - 03/16/2021 2:03 PM EDT INTERVENTIONAL RADIOLOGY FOCUSED H&P: Procedure: TUnnelled CVC The patient's history and physical exam have been reviewed and completed. There has been no interval change from that of the pre-operative history and physical exam done within the last 30 days. Physical Exam: Cardiovascular: Regular, Normal Pulmonary: Breath sounds clear to auscultation The planned procedure (and sedation plan if appropriate) , its benefits and risks, and alternativeswere discussed with the patient. The patient consented to the procedure. PRE-SEDATION ASSESSMENT: Sedation Plan: moderate (conscious sedation) ASA: 2: Patient with mild systemic disease Mallampati: I: soft palate, fauces, tonsillar pillars and uvula can be seen Confirm NPO status: Yes History of anesthetic complications: No Current medications reviewed: Yes Allergies reviewed: Yes Source Note - Wesley Alexis MD - 03/16/2021 10:30 AM EDT FOCUSED H&P and PRE-PROCEDURE IR NOTE: PCP: Maryuri Evans MD Referring Physician: Maryuri Evans Planned Procedure: Tunneled non-dialysis CVC Procedure Indication: requires long-term central venous access for daptomycin administration. Presenting Diagnosis/ Complaint: Emmanuel Salazar is a 60 y.o. female with IV daptomycin - week 4 of 6 - had left PICC, now s/p left radial forearm free flap for chronic LLE wound on 03/13. 60 y.o. female with of HTN (losartan, hydroxyzine), DM (glipizide, lantus, liraglutide), hyperlipidemia (diet-controlled), GERD (pantoprazole), MDD (sertraline, Wellbutrin), hypothyroidism (levothyroxine), psoriasis and chronic headaches (topiramate, gabapentin). ??Patient sustained an injury to her ankle on 01/11/2021 which became infected and underwent serial debridements and sterilization withwith antibiotics. She underwent radial forearm free flap coverage of her chronic ankle wound 03/13. Past Medical/Surgical History: Patient Active Problem List Diagnosis Code ??? [...] Past Surgical History: Procedure Laterality Date ??? PRO ALVEOLOPLASTY W EXTRACTIONS, 4 OR MORE TEETH, PER QUADRANT N/A 09/11/2019 ALVEOPLASTY,IN CONJUNCTION WITH EXTRACTIONS,PER QUADRANT,ENT (WRVU 4.06) performed by Wesley Jacobo MD at [facility] ? ? PRO DEBRIDEMENT BONE MUSCLE &/FASCIA 20 SQ CM/< Left 02/14/2021 DEBRIDEMENT SKIN, SUBCU, MUSCLE, BONE, LOWER EXTREMITY (WRVU 4.1) performed by [facility]an [facility]at [facility] ? ? PRO DEBRIDEMENT SUBCUTANEOUS TISSUE 20 SQCM/< Left 02/08/2021 DEBRIDEMENT SKIN AND SUBCU, LOWER EXTREMITY (WRVU 1.01) performed by Henrry Quiñones MD at [facility] OR ? ? PRO DEBRIDEMENT SUBCUTANEOUS TISSUE 20 SQCM/< Left 02/10/2021 DEBRIDEMENT SKIN AND SUBCU, LOWER EXTREMITY (WRVU 1.01) performed by Jacobo De La Cruz MD at [facility] ? ? PRO DEBRIDEMENT SUBCUTANEOUS TISSUE 20 SQCM/< Left 02/12/2021 DEBRIDEMENT SKIN AND SUBCU, LOWER EXTREMITY (WRVU 1.01) performed by Sabrina Capellan MD at [facility] ??? PRO FUSION/GRAFT OF ELBOW JOINT Right 2017 ARTHRODESIS, ELBOW JOINT WITH AUTOGENOUS GRAFT (WRVU 14.32) performed by Christopher Correa MD at [facility] ??? PRO REMOVAL DEEP IMPLANT Right 2017 REMOVAL OF IMPLANT, DEEP, ELBOW (WRVU 5.96) performed by Christopher Correa MD at [facility] ??? PRO REMOVAL ERUPTED TOOTH WITH ELEVATION OF MUCOPERIOSTEAL FLAP Bilateral 09/11/2019 SURGICAL EXTRACTIONS REQUIRING ELEVATION OF MUCOPERIOSTEAL FLAP AND REMOVAL OF BONE OR SECTION OF TOOTH (WRVU 1.09) performed by Wesley Jacobo MD at [facility] Medications: Current Outpatient Medications on File Prior to Encounter Medication Sig ??? acetaminophen (Tylenol) 500 mg Tablet Take 2 tablets by mouth every 8 hours. ??? Lantus Solostar U-100 Insulin pen Inject 20 Units subcutaneously nightly. ??? polyethylene glycoL (Miralax) 17 gram Powder in Packet Take 17 g by mouth daily. Hold for loosestools please! Thanks! ??? cyclobenzaprine (Flexeril) 5 mg Tablet Three times daily as needed for muscle spasms ??? aspirin EC 81 mg Tablet, Delayed Release (E.C.) Take 1 tablet by mouth 2 times daily for 30 days. (after 30 days, or when instructed by orthopedics, resume once daily dosing) ??? Victoza 2-Terrance 0.6 mg/0.1 mL (18 mg/3 mL) Pen Injector INJECT 0.6MG SUBCUTANEOUSLY DAILY FOR 1 WEEK THEN 1.2MG DAILY ??? folic acid (Folvite) 1 mg Tablet Take by mouth. ??? gabapentin (Neurontin) 300 mg Capsule TAKE ONE CAPSULE BY MOUTH THREE TIMES A DAY ??? hydrOXYzine (VISTARIL) 50 mg Capsule TAKE ONE CAPSULE BY MOUTH TWICE A DAY ??? buPROPion XL (Wellbutrin XL) 150 mg Tablet Extended Release 24 hr Take 150 mg by mouth every morning. ??? sertraline (ZOLOFT) 100 mg Tablet Take 2 tablets by mouth daily. ??? multivitamin (THERAGRAN) Tablet Take 1 tablet by mouth daily. ??? calcium carbonate (CALCIUM 500 ORAL) Take by mouth. ??? levothyroxine (SYNTHROID) 50 mcg Tablet daily. ??? glipiZIDE (GLUCOTROL XL) 10 mg Tablet Extended Rel 24 hr TAKE TWO TABLETS BY MOUTH EVERY DAY ??? topiramate (TOPAMAX) 100 mg Tablet TAKE ONE TABLET BY MOUTH TWICE A DAY ??? losartan (COZAAR) 50 mg Tablet Take 25 mg by mouth daily. Take 1/2 tablet a day ??? senna-docusate (Pericolace) 8.6-50 mg Tablet Take 2 tablets by mouth 2 times daily. Hold for loose stools please! Thanks! (Patient not taking: Reported on 03/09/2021) ??? DAPTOmycin (Cubicin) 500 mg Recon Soln Inject 700 mg into the vein daily for 35 days. ??? OneTouch Ultra Blue Test Strip Strip TEST THREE TIMES A DAY ??? OneTouch Ultra2 Meter Misc TEST DIRECTED ??? OneTouch Delica Plus Lancet 30 gauge Misc TEST THREE TIMES A DAY ??? Elizabeth Pen Needle 32 gauge x / Needle USE 1 PEN NEEDLE ONCE DAILY AT BEDTIME ??? pantoprazole (PROTONIX) 40 mg Tablet, Delayed Release (E.C.) Take 1 tablet by mouth daily. Allergies: Latex, Erythromycin lactobionate, Metformin, Red blood cells, Pollen extracts, Trazodone, Adhesive, and Lisinopril Social History and Habits: Social History Socioeconomic History ??? Marital status: Spouse name: Not on file ??? Number of children: Not on file ??? Years of education: Not on file ??? Highest education level: Not on file Occupational History ??? Not on file Tobacco Use ??? Smoking status: Never Smoker ??? Smokeless tobacco: Never Used Vaping Use ??? Vaping Use: Never used Substance and Sexual Activity ??? Alcohol use: No ??? Drug use: No ??? Sexual activity: Not on file Other Topics Concern ??? Not on file Social History Narrative ??? Not on file Social Determinants of Health Financial Resource Strain: ??? Difficulty of Paying Living Expenses: Food Insecurity: ??? Worried About Running Out of Food in the Last Year: ??? Ran Out of Food in the Last Year: Transportation Needs: ??? Lack of Transportation (Medical): ??? Lack of Transportation (Non-Medical): Physical Activity: ??? Days of Exercise per Week: ??? Minutes of Exercise per Session: Significant Family History: Family History Problem Relation Age of Onset ??? Chronic Obstructive Pulmonary Disease Mother ??? Emphysema Mother ??? Diabetes Mother ??? Heart Disease Father ??? Diabetes Father ??? Diabetes Maternal Grandmother ??? Pancreatic Cancer Maternal Grandmother Physical Exam: Pending Labs: Lab Results Component Value Date WBC 10.8 (H) 03/16/2021 HCT 34.4 (L) 03/16/2021 PLATELET 294 03/16/2021 BUN 8 03/16/2021 CREATININE 0.78 03/16/2021 ALKPHOS 122 (H) 02/18/2021 AST 27 02/18/2021 ALBUMIN 3.7 02/18/2021 BILIDIR 0.1 02/18/2021 BILITOT 0.2 02/18/2021 ALT 17 02/18/2021 PROT 7.0 02/18/2021 Assessment: 60 y.o. female on wk 4 of 6 daptomycin for chronic LLE wound, now s/p left radial forearm free flap Plan: Tunneled non-pharesis catheter. Labs: [per IR/CT protocol] Prophylactic antibiotic: [none] Medications to discontinue (and when): [none] (on LMWH) Patient Position: [supine] Access site: RIJ Sedation Plan : Mod Conscious Discharge Plan: Return to hospital room * Wesley Alexis MD - 03/16/2021 10:30 AM EDT FOCUSED H&P and PRE-PROCEDURE IR NOTE: PCP: Maryuri Evans MD Referring Physician: Maryuri Evans Planned Procedure: Tunneled non-dialysis CVC Procedure Indication: requires long-term central venous access for daptomycin administration. Presenting Diagnosis/ Complaint: Emmanuel Salazar is a 60 y.o. female with IV daptomycin - week 4 of 6 - had left PICC, now s/p left radial forearm free flap for chronic LLE wound on 03/13. 60 y.o. female with of HTN (losartan, hydroxyzine), DM (glipizide, lantus, liraglutide), hyperlipidemia (diet-controlled), GERD (pantoprazole), MDD (sertraline, Wellbutrin), hypothyroidism (levothyroxine), psoriasis and chronic headaches (topiramate, gabapentin). ??Patient sustained an injury to her ankle on 01/11/2021 which became infected and underwent serial debridements and sterilization withwith antibiotics. She underwent radial forearm free flap coverage of her chronic ankle wound 03/13. Past Medical/Surgical History: Patient Active Problem List Diagnosis Code ??? [...] Past Surgical History: Procedure Laterality Date ??? PRO ALVEOLOPLASTY W EXTRACTIONS, 4 OR MORE TEETH, PER QUADRANT N/A 09/11/2019 ALVEOPLASTY,IN CONJUNCTION WITH EXTRACTIONS,PER QUADRANT,ENT (WRVU 4.06) performed by Wesley Jacobo MD at [facility] ? ? PRO DEBRIDEMENT BONE MUSCLE &/FASCIA 20 SQ CM/< Left 02/14/2021 DEBRIDEMENT SKIN, SUBCU, MUSCLE, BONE, LOWER EXTREMITY (WRVU 4.1) performed by [facility] ? ? PRO DEBRIDEMENT SUBCUTANEOUS TISSUE 20 SQCM/< Left 02/08/2021 DEBRIDEMENT SKIN AND SUBCU, LOWER EXTREMITY (WRVU 1.01) [facility] ? ? PRO DEBRIDEMENT SUBCUTANEOUS TISSUE 20 SQCM/< Left 02/10/2021 DEBRIDEMENT SKIN AND SUBCU, LOWER EXTREMITY (WRVU 1.01) performed by Jacobo De La Cruz MD at [facility] ? ? PRO DEBRIDEMENT SUBCUTANEOUS TISSUE 20 SQCM/< Left 02/12/2021 DEBRIDEMENT SKIN AND SUBCU, LOWER EXTREMITY (WRVU 1.01) performed by Sabrina Capellan MD at [facility] ??? PRO FUSION/GRAFT OF ELBOW JOINT Right 2017 ARTHRODESIS, ELBOW JOINT WITH AUTOGENOUS GRAFT (WRVU 14.32) performed by Christopher Correa MD at [facility] ??? PRO REMOVAL DEEP IMPLANT Right 2017 REMOVAL OF IMPLANT, DEEP, ELBOW (WRVU 5.96) performed by Christopher Correa MD at [facility] ??? PRO REMOVAL ERUPTED TOOTH WITH ELEVATION OF MUCOPERIOSTEAL FLAP Bilateral 09/11/2019 SURGICAL EXTRACTIONS REQUIRING ELEVATION OF MUCOPERIOSTEAL FLAP AND REMOVAL OF BONE OR SECTION OF TOOTH (WRVU 1.09) performed by Wesley Jacobo MD at [facility] Medications: Current Outpatient Medications on File Prior to Encounter Medication Sig ??? acetaminophen (Tylenol) 500 mg Tablet Take 2 tablets by mouth every 8 hours. ??? Lantus Solostar U-100 Insulin pen Inject 20 Units subcutaneously nightly. ??? polyethylene glycoL (Miralax) 17 gram Powder in Packet Take 17 g by mouth daily. Hold for loosestools please! Thanks! ??? cyclobenzaprine (Flexeril) 5 mg Tablet Three times daily as needed for muscle spasms ??? aspirin EC 81 mg Tablet, Delayed Release (E.C.) Take 1 tablet by mouth 2 times daily for 30 days. (after 30 days, or when instructed by orthopedics, resume once daily dosing) ??? Victoza 2-Terrance 0.6 mg/0.1 mL (18 mg/3 mL) Pen Injector INJECT 0.6MG SUBCUTANEOUSLY DAILY FOR 1 WEEK THEN 1.2MG DAILY ??? folic acid (Folvite) 1 mg Tablet Take by mouth. ??? gabapentin (Neurontin) 300 mg Capsule TAKE ONE CAPSULE BY MOUTH THREE TIMES A DAY ??? hydrOXYzine (VISTARIL) 50 mg Capsule TAKE ONE CAPSULE BY MOUTH TWICE A DAY ??? buPROPion XL (Wellbutrin XL) 150 mg Tablet Extended Release 24 hr Take 150 mg by mouth every morning. ??? sertraline (ZOLOFT) 100 mg Tablet Take 2 tablets by mouth daily. ??? multivitamin (THERAGRAN) Tablet Take 1 tablet by mouth daily. ??? calcium carbonate (CALCIUM 500 ORAL) Take by mouth. ??? levothyroxine (SYNTHROID) 50 mcg Tablet daily. ??? glipiZIDE (GLUCOTROL XL) 10 mg Tablet Extended Rel 24 hr TAKE TWO TABLETS BY MOUTH EVERY DAY ??? topiramate (TOPAMAX) 100 mg Tablet TAKE ONE TABLET BY MOUTH TWICE A DAY ??? losartan (COZAAR) 50 mg Tablet Take 25 mg by mouth daily. Take 1/2 tablet a day ??? senna-docusate (Pericolace) 8.6-50 mg Tablet Take 2 tablets by mouth 2 times daily. Hold for loose stools please! Thanks! (Patient not taking: Reported on 03/09/2021) ??? DAPTOmycin (Cubicin) 500 mg Recon Soln Inject 700 mg into the vein daily for 35 days. ??? OneTouch Ultra Blue Test Strip Strip [...] (E.C.) Take 1 tablet by mouth daily. Allergies: Latex, Erythromycin lactobionate, Metformin, Red blood cells, Pollen extracts, Trazodone, Adhesive, and Lisinopril Social History and Habits: Social History Socioeconomic History ??? Marital status: Spouse name: Not on file ??? Number of children: Not on file ??? Years of education: Not on file ??? Highest education level: Not on file Occupational History ??? Not on file Tobacco Use ??? Smoking status: Never Smoker ??? Smokeless tobacco: Never Used Vaping Use ??? Vaping Use: Never used Substance and Sexual Activity ??? Alcohol use: No ??? Drug use: No ??? Sexual activity: Not on file Other Topics Concern ??? Not on file Social History Narrative ??? Not on file Social Determinants of Health Financial Resource Strain: ??? Difficulty of Paying Living Expenses: Food Insecurity: ??? Worried About Running Out of Food in the Last Year: ??? Ran Out of Food in the Last Year: Transportation Needs: ??? Lack of Transportation (Medical): ??? Lack of Transportation (Non-Medical): Physical Activity: ??? Days of Exercise per Week: ??? Minutes of Exercise per Session: Significant Family History: Family History Problem Relation Age of Onset ??? Chronic Obstructive Pulmonary Disease Mother ??? Emphysema Mother ??? Diabetes Mother ??? Heart Disease Father ??? Diabetes Father ??? Diabetes Maternal Grandmother ??? Pancreatic Cancer Maternal Grandmother Physical Exam: Pending Labs: Lab Results Component Value Date WBC 10.8 (H) 03/16/2021 HCT 34.4 (L) 03/16/2021 PLATELET 294 03/16/2021 BUN 8 03/16/2021 CREATININE 0.78 03/16/2021 ALKPHOS 122 (H) 02/18/2021 AST 27 02/18/2021 ALBUMIN 3.7 02/18/2021 BILIDIR 0.1 02/18/2021 BILITOT 0.2 02/18/2021 ALT 17 02/18/2021 PROT 7.0 02/18/2021 Assessment: 60 y.o. female on wk 4 of 6 daptomycin for chronic LLE wound, now s/p left radial forearm free flap Plan: Tunneled non-pharesis catheter. Labs: [per IR/CT protocol] Prophylactic antibiotic: [none] Medications to discontinue (and when): [none] (on LMWH) Patient Position: [supine] Access site: RIJ Sedation Plan : Mod Conscious Discharge Plan: Return to hospital room * Collin Carrillo MD - 03/13/2021 4:41 PM EDTSummary: H&P Critical Care - Admission Note History of Present Illness: Emmanuel Salazar is a 60 y.o. female with PMH of hypertension (losartan, hydroxyzine), diabetes mellitus (glipizide, lantus), hyperlipidemia, GERD (protonix), depression, hypothyroidism, psoriasis and chronic headaches. Emmanuel suffered a fall on January 11 presenting to OSH where she underwent ORIF on January 21. Shortly after she developed purulent discharge from her left ankle. She has undergone I&Don 02/08, 02/10, 02/14 with cultures growing back Enterococcus and MSSA on outpatient PICC delivered daptomycin. Patient comes to the surgical ICU status post free flap microanastomosis over a serially debrided exposed left ankle bone. Orthopedics and OT is consulted for casting of the right elbow which was d/c for peripheral access during the case. Review of Systems: Review of Systems - Negative Past Medical Surgery: Left ankle fixation ORIF complicated by infection, osteomyelitis and serial debridement Right elbow fusion with distant history of previous fusion 2015 Past and Surgical History: Past Surgical History: Procedure Laterality Date ??? PRO ALVEOLOPLASTY W EXTRACTIONS, 4 OR MORE TEETH, PER QUADRANT N/A 09/11/2019 ALVEOPLASTY,IN CONJUNCTION WITH EXTRACTIONS,PER QUADRANT,ENT (WRVU 4.06) performed by Wesley Jacobo MD at [facility] ? ? PRO DEBRIDEMENT BONE MUSCLE &/FASCIA 20 SQ CM/< Left 02/14/2021 DEBRIDEMENT SKIN, SUBCU, MUSCLE, BONE, LOWER EXTREMITY (WRVU 4.1) performed by [facility] ? ? PRO DEBRIDEMENT SUBCUTANEOUS TISSUE 20 SQCM/< Left 02/08/2021 DEBRIDEMENT SKIN AND SUBCU, LOWER EXTREMITY (WRVU 1.01) performed by Henrry Quiñones MD at [facility] OR ? ? PRO DEBRIDEMENT SUBCUTANEOUS TISSUE 20 SQCM/< Left 02/10/2021 DEBRIDEMENT SKIN AND SUBCU, LOWER EXTREMITY (WRVU 1.01) performed by Jacobo De La Cruz MD at [facility] OR ? ? PRO DEBRIDEMENT SUBCUTANEOUS TISSUE 20 SQCM/< Left 02/12/2021 DEBRIDEMENT SKIN AND SUBCU, LOWER EXTREMITY (WRVU 1.01) performed by Sabrina Capellan MD at [facility] ??? PRO FUSION/GRAFT OF ELBOW JOINT Right 2017 ARTHRODESIS, ELBOW JOINT WITH AUTOGENOUS GRAFT (WRVU 14.32) performed by Christopher Correa MD at [facility] ??? PRO REMOVAL DEEP IMPLANT Right 2017 REMOVAL OF IMPLANT, DEEP, ELBOW (WRVU 5.96) performed by Christopher Correa MD at [facility] ??? PRO REMOVAL ERUPTED TOOTH WITH ELEVATION OF MUCOPERIOSTEAL FLAP Bilateral 09/11/2019 SURGICAL EXTRACTIONS REQUIRING ELEVATION OF MUCOPERIOSTEAL FLAP AND REMOVAL OF BONE OR SECTION OF TOOTH (WRVU 1.09) performed by Wesley Jacobo MD at [facility] Prior To Admission Medications: Medications Prior to Admission Medication Sig Dispense Refill Last Dose ??? ondansetron (Zofran) 4 mg Tablet Take 1 tablet by mouth every 8 hours as needed for Nausea. 20 tablet 0 03/11/2021 at Unknown time ??? acetaminophen (Tylenol) 500 mg Tablet Take 2 tablets by mouth every 8 hours. 180 tablet 0 Past Week at Unknown time ??? Lantus Solostar U-100 Insulin pen Inject 20 Units subcutaneously nightly. 1 vial 3 03/12/2021 atUnknown time ??? polyethylene glycoL (Miralax) 17 gram Powder in Packet Take 17 g by mouth daily. Hold for loosestools please! Thanks! 30 each 0 03/11/2021 at Unknown time ??? cyclobenzaprine (Flexeril) 5 mg Tablet Three times daily as needed for muscle spasms 30 tablet 0 03/11/2021 at Unknown time ??? aspirin EC 81 mg Tablet, Delayed Release (E.C.) Take 1 tablet by mouth 2 times daily for 30 days. (after 30 days, or when instructed by orthopedics, resume once daily dosing) 60 tablet 0 Past Week at Unknown time ??? Victoza 2-Terrance 0.6 mg/0.1 mL (18 mg/3 mL) Pen Injector INJECT 0.6MG SUBCUTANEOUSLY DAILY FOR 1 WEEK THEN 1.2MG DAILY Past Week at Unknown time ??? folic acid (Folvite) 1 mg Tablet Take by mouth. 03/11/2021 at Unknown time ??? gabapentin (Neurontin) 300 mg Capsule TAKE ONE CAPSULE BY MOUTH THREE TIMES A DAY 03/11/2021 at Unknown time ??? hydrOXYzine (VISTARIL) 50 mg Capsule TAKE ONE CAPSULE BY MOUTH TWICE A DAY 03/11/2021 at Unknowntime ??? buPROPion XL (Wellbutrin XL) 150 mg Tablet Extended Release 24 hr Take 150 mg by mouth every morning. 03/11/2021 at Unknown time ??? sertraline (ZOLOFT) 100 mg Tablet Take 2 tablets by mouth daily. 3 03/11/2021 at Unknown time ??? multivitamin (THERAGRAN) Tablet Take 1 tablet by mouth daily. 03/11/2021 at Unknown time ??? calcium carbonate (CALCIUM 500 ORAL) Take by mouth. 03/11/2021 at Unknown time ??? levothyroxine (SYNTHROID) 50 mcg Tablet daily. 03/11/2021 at Unknown time ??? glipiZIDE (GLUCOTROL XL) 10 mg Tablet Extended Rel 24 hr TAKE TWO TABLETS BY MOUTH EVERY DAY 3 03/11/2021 at Unknown time ??? topiramate (TOPAMAX) 100 mg Tablet TAKE ONE TABLET BY MOUTH TWICE A DAY 3 03/11/2021 at Unknown time ??? losartan (COZAAR) 50 mg Tablet Take 25 mg by mouth daily. Take 1/2 tablet a day 03/11/2021 at Unknown time ??? senna-docusate (Pericolace) 8.6-50 mg Tablet Take 2 tablets by mouth 2 times daily. Hold for loose stools please! Thanks! (Patient not taking: Reported on 03/09/2021) 120 tablet 0 More than a month at Unknown time ??? DAPTOmycin (Cubicin) 500 mg Recon Soln Inject 700 mg into the vein daily for 35 days. 46 each 0Unknown at Unknown time ??? OneTouch Ultra Blue [...] Take 1 tablet by mouth daily. 3 Current Medications: ??? sodium chloride 0.9 % (flush) (BD PosiFlush Normal Saline 0.9) flush 5-20 mL ??? lidocaine (Xylocaine) 1% (10 mg/mL) injection 3 mg ??? lactated ringers infusion ??? ceFAZolin (Ancef) 2 g in dextrose 5% 100 mL infusion ??? lidocaine (XYLOCAINE) 4 % (40 mg/mL) external solution ??? lidocaine-EPINEPHrine (1% - 1:100,000) injection ??? heparin (porcine) (1,000 units/mL) injection ??? fentaNYL (pf) (50 mcg/mL) multi-dose injection ??? midazolam (pf) (Versed) (1 mg/mL) multi-dose injection ??? rocuronium (Zemuron) (10 mg/mL) multi-dose injection ??? propofoL (Diprivan) 10 mg/mL bolus injection (Anesthesia) ??? lidocaine (pf) (Xylocaine) (20 mg/mL) 2% injection syringe ??? propofoL (Diprivan) infusion ??? vecuronium (Norcuron) injection ??? insulin lispro (HumaLOG;Admelog) (100 unit/mL) subcutaneous injection vial ??? ePHEDrine sulfate (5 mg/mL) multi-dose injection ??? electrolyte replacement solution (pH 7.4) (Normosol-R, Plasmalyte-A) infusion ??? insulin regular (HumuLIN R,NovoLIN R) (100 unit/mL) injection vial ??? heparin (porcine) (1,000 units/mL) injection ??? insulin regular (Myxredlin) (1 unit/mL) in sodium chloride 0.9% 100 mL infusion ??? indocyanine green (Ic-Green) injection ??? acetaminophen (Ofirmev) (1000 mg/100 mL) infusion ??? neostigmine (Bloxiver) (1 mg/mL) injection ??? glycopyrrolate (Robinul) (0.2 mg/mL) multi-dose injection Allergies: Allergies Allergen Reactions ??? Latex Rash ??? Erythromycin Lactobionate Nausea Only ??? Metformin Nausea Only ??? Red Blood Cells Other (See Comments) Antibodies-Difficult to Crossmatch DO NOT REMOVE Please contact the Blood Bank at [phone] for questions. ??? Pollen Extracts Other (See Comments) Rhinusitus ??? Trazodone Other (See Comments) Hallucination ??? Adhesive Rash Skin Rash ??? Lisinopril Other (See Comments) Cough. Family History: Family History Problem Relation Age of Onset ??? Chronic Obstructive Pulmonary Disease Mother ??? Emphysema Mother ??? Diabetes Mother ??? Heart Disease Father ??? Diabetes Father ??? Diabetes Maternal Grandmother ??? Pancreatic Cancer Maternal Grandmother Social History and Habits: Social History Socioeconomic History ??? Marital status: Spouse name: Not on file ??? Number of children: Not on file ??? Years of education: Not on file ??? Highest education level: Not on file Occupational History ??? Not on file Tobacco Use ??? Smoking status: Never Smoker ??? Smokeless tobacco: Never Used Vaping Use ??? Vaping Use: Never used Substance and Sexual Activity ??? Alcohol use: No ??? Drug use: No ??? Sexual activity: Not on file Other Topics Concern ??? Not on file Social History Narrative ??? Not on file Social Determinants of Health Financial Resource Strain: ??? Difficulty of Paying Living Expenses: Food Insecurity: ??? Worried About Running Out of Food in the Last Year: ??? Ran Out of Food in the Last Year: Transportation Needs: ??? Lack of Transportation (Medical): ??? Lack of Transportation (Non-Medical): Physical Activity: ??? Days of Exercise per Week: ??? Minutes of Exercise per Session: Physical Exam: Last Set of Vitals and range of vitals over past 24 hours: Last value Range last 24 hrs Temperature Temp: 36.7 ??C (98.1 ??F) Temp: [36.7 ??C (98.1 ??F)] Heart Rate Heart Rate: 97 Heart Rate: [97] Blood Pressure BP: 163/72 BP: (163)/(72) Respiratory Rate Resp: 18 Resp: [18] SpO2 SpO2: 99 % SpO2: [99 %] Gen: resting comfortably in bed. DALI wrap on left arm. Right arm uncasted. CV: regular rate. No murmurs. RESP: CTAB, no wheezing EXT: DALI wrapping over the left arm from the elbow to the wrist. Right arm is not casted as cast was removed in OR. The left ankle is wrapped with a single window in the DALI wrapping for doppler exams. Dopplerable pulses over the free flap. Neuro: Grossly intact Laboratory (Last 24 Hours): Recent Results (from the past 24 hour(s)) POCT Glucose Result Value Ref Range POC Glucose 175 65 - 199 mg/dL POCT Glucose Result Value Ref Range POC Glucose 183 65 - 199 mg/dL POCT Glucose Result Value Ref Range POC Glucose 201 (H) 65 - 199 mg/dL POCT Glucose Result Value Ref Range POC Glucose 174 65 - 199 mg/dL POCT Glucose Result Value Ref Range POC Glucose 152 65 - 199 mg/dL POCT Glucose Result Value Ref Range POC Glucose 141 65 - 199 mg/dL Microbiology: 02/07-blood cultures-2 sets with no growth to date 02/08-intraoperative specimens-MSSA, Enterococcus faecalis (ampicillin-S) noted in all 3 intraoperative cultures 02/10-intraoperative specimens-MSSA, Enterococcus faecalis??and 2 of 2 intraoperative cultures 02/12-intraoperative specimens-MSSA, noted in 2 of 2 intraoperative cultures (all hardware removed on 02/12) Radiology: CT Angiogram LLE 02/16: IMPRESSION 1. Interval removal of ORIF hardware from the distal left tibia and fibula. 2. Surrounding inflammation and overlying skin thickening without drainable fluid collection. 3. Nonvisualized distal peroneal arteries. Patent anterior/posterior tibial arteries, dorsalis pedis and plantar arteries. CT LE with contrast 02/07: Left lower extremity cellulitis extending from the distal tibia and fibula to the foot, with small abscess at the lateral malleolus. Assessment/Plan: Emmanuel Salazar is a 60 y.o. female with pmhx of HTN, DM, HLD, GERD. Emmanuel has undergone serial debridements of the left ankle over the past month and was taken to the OR for free flap coverage of exposed bone. Emmanuel is hemodynamically stable postoperatively, extubated, and comfortable. 48-hour free flap checks. N.p.o. until tomorrow. Neuro: - pain control: acetaminophen RJ. Oxycodone 5 mg PRN. lidoderm patches x3. - home meds: Gabapentin 300 mg, Zoloft 100 mg, topiramate 200 mg, Flexeril 5 mg 3 times daily as needed muscle spasms. CV: - avoid vasopressors - SBP goal: <160, MAP goal > 65 Pulm: - NC goal Sat > 92% FEN: 100cc/hr maintenance GI: pepcid NPO POD0, clear liquids POD1 : kraft, monitor UOP Endo: - ISS: Lantus. -home medication glipizide. -Home med: Levothyroxine 50 mcg ID: -perioperative Ancef - resume home daptomycine per ID when PICC placed Heme: FIONA PPx: - DVT: SCD's, lovenox 40mg nightly - GI: pepcid Disp: admit to ICU, Critical Care Red 1 Collin Carrillo MD 03/13/2021 Associated attestation - David Gunter MD - 03/13/2021 6:45 PM EDT Attending Attestation I have seen the patient and reviewed the resident's history above and I agree with the details except as noted. The assessment and plan were formulated in discussion with me and I agree with them as documented. Pertinent History: Emmanuel Salazar is a 60 y.o. female with of HTN (losartan, hydroxyzine), DM (glipizide, lantus, liraglutide), hyperlipidemia (diet- controlled), GERD (pantoprazole), MDD (sertraline, Wellbutrin), hypothyroidism (levothyroxine), psoriasis and chronic headaches (topiramate, gabapentin). Patient sustained an injury to her ankle on 01/11/2021 which became infected and underwent serial debridements and sterilization with with antibiotics. She underwent radial forearm free flap coverage of her chronic ankle wound today in the operating room and is admitted to the SICU for every hour flap checks. Pertinent Exam: Gen: NAD, lying in bed N: alert, awake, EOMI, PERRL, 5/5 strength in b/l UE and LE CV: RRR, no MRG R: CTAB Abd: soft, NT, ND Ext: WWP, no c/c/e, palpable b/l pedal pulses TLD: PICC line, PIV, arterial line, Kraft catheter Plan: 60 y.o. female with left ankle free flap admitted to the SICU for close neurovascular monitoring -Every hour flap checks -Restart home medications -Okay for diet -Start p.o. oxycodone with as needed Dilaudid for breakthrough -Follow postop labs -Replenish lytes as needed - Code status: Attempt Cardiopulmonary Resuscitation - Inpatient - Prophylaxis: SCD's, hold chemoprophylaxis - Primary: Plastic surgery/orthopedic surgery Dispo: SICU //////////////////////////////////////////////////////////////////////////////// //// Attestation: IS PATIENT CRITICALLY ILL ? Is there a high potential of sudden, clinically significant, or life threatening deterioration? No Is there a need for direct personal assessment and management to treat/prevent multiple vital organfailure/deterioration? No PATIENT IS CRITICALLY ILL WITH THESE DIAGNOSES BEING MANAGED BY [facility]CS TEAM: Other patient admitted to the operating room for frequent neurovascular monitoring for flap preservation safety. I personally performed 25 of aggregate care time exclusive of procedures and teaching. This includes time spent during direct patient evaluation and reassessment, interpreting diagnostic tests, directing life and/or organ supporting interventions and documentation on the unit. David Gunter MD * David Hogan PA - 03/13/2021 7:54 AM EDT Patient Name: Emmanuel Salazar Patient Age: 60 y.o. Birthdate: 1960 Admit date: 03/13/2021 Attending Physician: Aydee Franklin MD S: Patient with history of L ankle wound. Denies health and medication changes since last seen by Dr. Franklin. Reports allergies to erythromycin, metformin, trazodone, and some adhesives. Has PICC line in L arm from OPAT. O: General: alert and oriented x 3. Moves all extremities spontaneously. Laying in bed, NAD. PULM: lungs clear, respirations unlabored on room air. CV: RRR, no murmurs noted. LLE: Ankle wound w/ vac in place, periwound without lesions or erythema. Assessment / Plan: To OR for coverage of left ankle wound with radial forearm free flap. Patient expresses understanding of risks and benefits and elects to proceed. IMANI Irby documented in this encounter Miscellaneous Notes * Care Management Discharge - Marci Campbell RN - 03/17/2021 1:29 PM EDT CARE MANAGEMENT FINAL DISCHARGE NOTE Chart reviewed, care reviewed with primary team and at interdisciplinary rounds. Patient is medically ready for discharge to; Home with IV ABX Needs for Transition of Care: VNA Plan for discharge is: VNA Agency Referrals & Follow-up Care: Contact information for follow-up Home [facility] & H[facility], Bri [address] [facility] [id number] CM Confirm visit for tomorrow at 9am Transportation: family Functional status prior to admission: Assistive Equipment Home Environment: Others in the home: child(valentina), adult, parent(s). Current Living Arrangements: home/apartment/condo. Accessibility Concerns:lives with her and dtr-in-law in a single level house with a ramped entrance. She has a walk in shower with both grab bars and shower chair, regular toilet, and sleeps in a flat bed. DME: w/c and commode. Current Functional Ability: Assist of one DME used at home: walker - standard DME Needed at DC: Has walker Other: IV ABX from [facility] : delivery .Confirmed for 8pm tonight Patient is insured through: Primary Insurance: [place]ID [place] Payor: [place] / Plan: [place] PRIMARY CARE PLUS / Product Type: *No Product type* / Secondary Insurance: N/A Prescription Coverage: Yes [facility]erred [facility]acy: [facility] [address] [address] This plan was formulated with input from patient, and team. All are in agreement with plan. Office of Care Management SHANTAL Campbell RNCM Beeper #[id number] * Plan of Care - Evelyn Torre RN - 03/17/2021 12:42 AM EDT OUTCOME EVALUATION NOTE: OUTCOME SUMMARY: A&O x 4. VSS on RA. Pain was controlled w/o taking pain medication. Left ankle flap site checked Q 4 H WNL. Left thigh donor site with pick foam dressing C/D/I. LUE w/splint and wound vac in place, holding good suction w/smal amount of bloody drainage noted. Voided adequate amounts. Right IJ placed during day shift for mcfp antibiotics. Scan amount of bloody drainage shadowing on dressing. CHG done at 2300. Will continue to monitor. PLAN MOVING FORWARD: Pain control Q 4 H flap checks Monitor VS and UOP Encourage pulmonary hygiene. CT R elbow w/o contrast on 03/17 INDIVIDUALIZED FALL PREVENTION INTERVENTIONS: Patient-specific fall risk factors per assessment: [current deficits]: generalized weakness, LLE flap, wound vac. Assistance [level of assistance required for transfers and ambulation]: bed rest Supervision [direct monitoring required during toileting and ADLs]: eyes on, hands on. Surveillance [continuous indirect monitoring]: purposeful rounding, bed /chair alarm, call light inreach. Patient-specific fall prevention interventions for sensory deficits provided, if applicable: yes, glasses, light adjusted. CPG GOAL OUTCOME EVALUATION: * Plan of Care - Davy Altman RN - 03/16/2021 5:16 PM EDT OUTCOME EVALUATION NOTE: OUTCOME SUMMARY: Pt has had a good day, went down to IR for RIJ placement for mcfp antibiotics. Pt is A&Ox4. VSS on RA. Pt has had no complaints of pain. LLE flap checks have been unchanged. PLAN MOVING FORWARD: Q4 flap check Pain management Monitor VS Monitor I&O Encourage activity INDIVIDUALIZED FALL PREVENTION INTERVENTIONS: Patient-specific fall risk factors per assessment: [current deficits]: LLE flap, recent sedation, mobility deficits Assistance [level of assistance required for transfers and ambulation]: Assist x1 Supervision [direct monitoring required during toileting and ADLs]: eyes on hands on Surveillance [continuous indirect monitoring]: Rounding, on monitor, call light in reach Patient-specific fall prevention interventions for sensory deficits provided, if applicable: [X] N/A CPG GOAL OUTCOME EVALUATION: * Brief Op Note - Yunior Flores MD - 03/16/2021 3:00 PM EDT INTERVENTIONAL RADIOLOGY BRIEF PROCEDURE NOTE Patient Name: Emmanuel Salazar : 1960 Case Date: 03/16/2021 Operators: Attending: Mark Resident/Fellow/Student: Destinee Post-operative diagnosis/Indication: Requires CVC for medication admin Brief description of the procedure: ?? RIJV access ?? Placement of tunneled 9 Fr cvc Findings of the procedure: ?? Catheter at cavoatrial juction EBL: <10 mL Specimens: _N/A_ Complications: No immediate Plan/Disposition: Return to floors Catheter ready for use FULL PROCEDURE NOTE TO FOLLOW IN IMAGE REPORT * Initial Assessments - Marci Campbell RN - 03/16/2021 12:46 PM EDT Office of Care Management Initial Assessment Marci Campbell RN reviewed record and discussed patient with Care Team. Source of Information: Team, bedside nurse, medical record, and Patient Introduced self/reviewed role; services accepted. Reason for Hospitalization: surgery on ankle Last COVID test: None / received J&J in November Past medical History: No past medical history on file. Hospitalizations Within the Past 30 Days: no previous admission in last 30 days, previous dischargeplan unsuccessful Current Decision-Making Capacity: Self Advance Care Planning: Attempt Cardiopulmonary Resuscitation - Inpatient <no information> -Advanced Directive: No, need to discuss If AD's have not been completed Father would be surrogate decision maker per [place] surrogate decision making law. (Only good for 90 days) Any patient receiving care at [facility] must abide by [place] law. The hierarchy for surrogate decision making is: (a) Patient???s spouse, or civil union partner or common law spouse unless there is a divorce proceeding, separation agreement, or restraining order limiting that person???s relationship with the patient. (b) Any adult son or daughter of the patient. (c) Either parent of the patient. (d) Any adult brother or sister of the patient. (e) Any adult grandchild of the patient. (f) Any grandparent of the patient. (g) Any adult aunt, uncle, niece, or nephew of the patient. (h) A close friend of the patient. (i) The agent with financial power of baker bread or a conservator appointed in accordance with RSA 464-A. (j) The guardian of the patient???s estate. Current Coping/Education/Information Needs: Understands reason for hospitalization Current Functional Ability: Assistive Equipment using a walker Functional Status Prior to Admission: Assistive Equipment/ Uses a walker Home Environment: Others in the home: child(valentina), adult, parent(s). Current Living Arrangements: home/apartment/condo. Accessibility Concerns:lives with her and dtr-in-law in a single level house with a ramped entrance. She has a walk in shower with both grab bars and shower chair, regular toilet, and sleeps in a flat bed. DME: w/c and commode. Current DME: walker - standard Home Address confirmed as: [address] [facility] [address] Social & Family Supports: All names listed below confirmed with patient as current and correct Extended Emergency Contact Information Primary Emergency Contact: Jacobo Salazar Address: [address] [place] [address] [facility] Relation: Father Current Care Provided by: self, homecare agency, parent(s) Provides Primary Care For: no one Caregiver if needed: child(valentina), adult Quality of Family relationships: supportive Community Resources being provided currently: homecare agency ([facility]) Behavioral Health History: Denies Substance Use/Abuse listed: Social History Tobacco Use ??? Smoking status: Never Smoker ??? Smokeless tobacco: Never Used Vaping Use ??? Vaping Use: Never used Substance Use Topics ??? Alcohol use: No ??? Drug use: No Other Pertinent/Service Specific Information: None Health/Prescription Coverage: Primary Insurance: [place] Payor[place] / Plan: [place] PRIMARY CARE PL[place] / Product Type: *No Product type* / Secondary Insurance: N/A Prescription Coverage: Yes Preferred Pharmacy: [id number] - [place], [place] - [address] [place] [id number] Status: Patient is a : No Primary Care Provider: Maryuri Evans MD [phone] Patient/Caregiver Goals of Treatment: to get home Potential Needs for Transition of Care: home health care Agency Referrals: The patient/caregivers were provided with a list of VNA which serve their preferred geographic location and they were educated about their right to choose where referrals are placed. Patient/Caregiver requests referral to [facility] . Transportation: no concerns Transportation Anticipated: family or friend will provide Concerns to be Addressed: discharge planning Assessment: Patient is admitted to Plastics service for ankle infection Plan: Home with VNA and [facility] for for IV ABX Services A member of the Care Management team will continue to monitor progress, follow for continuity of care and assist with transition of care planning. Office of Care Management SHANTAL Campbell RNCM Beeper #[id number] * Plan of Care - Nupur Greenwood RN - 03/15/2021 6:51 AM EDT OUTCOME EVALUATION NOTE: OUTCOME SUMMARY: Patient A&Ox4, calm and cooperative. Flap assessment WNL. No PRN pain meds given overnight. PLAN MOVING FORWARD: Q1H flap checks to be liberalized Downgrade PT * Consult Note - Jaycee Rivera RN - 03/14/2021 4:02 PM EDT Paged to patient room to assess for PIV access, and spoke with SUNIL Fernandez and Aimee Perry MD about this patient's medical conditions related to vascular access. In light of bilateral upper extremity and left lower extremity surgical sites in combination with her history of DM this patient is not appropriate for PIV access. Please refer to PICC order and consequent PICC nurse communication regarding contraindications for placement at this time. Recommendation for central line placement and/or IR CVL to accommodate this patient's vascular access needs. * Consult Note - Kendall Chung RN - 03/14/2021 10:18 AM EDT Due to both arms being compromised, a PICC line is not recommended and this author recommends a tunneled line to be placed by IR. * Patient Refusal of Care - Dami Figueroa RN - 03/13/2021 9:37 PM EDT Patient refusing to allow checking blood sugar, temperature, and all medications. The reason pt gave for this refusal was im not taking anything if I cant have my tuna sandwhich repeated several times. Nursing actions taken during this shift to address patient???s refusal included patient educated bynursing with the risk of hypoglycemic and hyperglycemic states, the risk of blood clots from refusing heparin with potential for stroke and or PE with the added concern due to long bone fractures with instrumentation, recent central venous access and multiple infections and given her current recentpost operative status. Pt response was I have a do not resuscitate order' To which nursing repliedthat we are here to advocate for you and are here to help you but we have to know that you have allthe facts and understand the risks. Plan to address patient???s refusal include: will continue to advocate for patient safety and wellbeing, offering more education as needed. MD also to bedside for continued education * Brief Op Note - Jaime Negron MD - 03/13/2021 4:15 PM EDT Brief Operative Note Patient Name: Emmanuel Salazar : [id number] MR#: [id number] Case Date: 03/13/2021 Surgeon: Surgeon(s) and Role: * Aydee Franklin MD - Primary * Jaime Negron MD - Resident Preoperative diagnosis: Left ankle wound Postoperative diagnosis: Left ankle wound Procedure(s) (LRB): @FLAP, FREE FASCIAL, W/ MICRO ANASTOMOSIS, LOWER EXTREMITY (WRVU 36.9) (Left) SPLIT THICK SKIN GRAFT,100 SQ CM OR LESS, LEGS (WRVU 9.9) (Left) Anesthesia: General Findings: chronic wound of the left lower extremity 7x2.5cm Complications: none Estimated Blood Loss: 50 mL Specimens removed during surgery: None Fluids: Intraprocedure Crystalloid Total Intake Normosol-R 1000.00 mL lactated ringers infusion 1000.00 mL Total Intake 2000 mL Output Urine Output 400 mL Blood Loss 50 mL Total Output 450 mL Net Net Volume 1550 mL PRBCs: none (See Anesthesia Record/Report for Other Blood Products) Urine Output: 400 mL Drains: 1 wound vac, 1 black sponge Disposition: awakened from anesthesia, extubated and taken to the recovery room in a stable condition, having suffered no apparent untoward event. Condition: doing well without problems (Please see the Surgical Encounter Summary for any Implant and Specimen details pertinent to this patient.) Infection Bundle used? N/A Plan: Lovenox, can restart ASA POD 2 Continue IV abx NPO Keep LLE elevated Q1 hr checks Avoid pressors * Op Note - Aydee Franklin MD - 03/13/2021 9:47 AM EDT [facility] Operative Note Patient Name: Emmanuel Salazar : [id number] MR#: [id number] Case Date: 03/13/2021 Surgeon: Surgeon(s) and Role: * Aydee Franklin MD - Primary * Jaime Negron MD - Resident Preoperative diagnosis: Left ankle wound Postoperative diagnosis: Left ankle wound Procedure(s) (LRB): @FLAP, FREE FASCIAL, W/ MICRO ANASTOMOSIS, LOWER EXTREMITY (WRVU 36.9) (Left) SPLIT THICK SKIN GRAFT,100 SQ CM OR LESS, LEGS (WRVU 9.9) (Left) Anesthesia: General Estimated Blood Loss: 50 mL Specimens removed during surgery: * No orders in the log * Drains: * No LDAs found * Implant Name Type Inv. Item Serial No. Rattling Machine Tender Lot No. LRB No. Used Action employment agency manager [id number] Left 1 Implanted DRIVER EXAMINER MICROVASCULAR 2.5MM 2 ENDED RED GEM ([id number]) - [id number] IMPLANTS DRIVER EXAMINER MICROVASCULAR 2.5MM 2 ENDED RED GEM ([id number]) [employer] - [facility] [id number] Left 1 Implanted Surgical Closure: Primary Closure - skin incision is completely closed without any wires, barbi, drains or other devices Skin graft over left arm wound Wound vac over skin graft Disposition: awakened from anesthesia, extubated, and taken to ICU in stable condition Condition: doing well without problems (Please see the Surgical Encounter Summary for any Implant and Specimen details pertinent to this patient.) HPI/Surgical Indications: Emmanuel Salazar is a 60-year-old female who suffered an ankle fracture approximately 2 months ago. She underwent operative repair and subsequently had dehiscence of her left lateral ankle incision. She went to the operating room with the orthopedic surgery service for washout and removal of hardware. She presented to us with an ankle wound. The risk, benefits, and alternatives of coverage of her left ankle wound with radial forearm free flap were discussed with the patient and she was agreeable to proceed. Specific risks discussed include infection, hematoma, seroma, delayed wound healing, flap failure, and flap loss. Procedure Description: After informed consent was obtained the patient was brought to the operatingroom and placed on the table in supine position. SCDs were placed and perioperative antibiotics were administered. General anesthesia was induced. An upper arm tourniquet was placed on the left upperextremity. The patient was prepped and draped in standard sterile fashion. We began by measuring our left ankle defect at 9.5 x 3.5 cm. The skin paddle was marked centered around the radial or arteryon the volar aspect of the distal forearm. We then exsanguinated the arm using Esmarch and inflatedthe tourniquet to 250 mmHg. We incised along the ulnar aspect of our skin paddle and raised a fascio cutaneous flap and radial direction to the level of the FCR tendon. We then incised in the lazy S fashion to approximately 3 cm distal to the antecubital fossa as well as the radial portion of her flap. Proximal forearm we located the cephalic vein and this was dissected distally taking care to carefully ligate any branches using hemoclips. As we approached the flap skin paddle we identified the branch that was draining our proposed flap and this branch was preserved. We then identified the main radial artery pedicle with accompanying vena comitans. We dissected the pedicle free from surrounding tissues taking care to ligate any muscular branches using hemoclips as well as a harmonic focus.Once this was complete proximally we identified and ligated radial artery at the distal aspect of the flap. The flap was then raised in fasciocutaneous fashion proximally taking care to preserve perforators of the radial artery to the overlying skin of our flap and ligating any deep perforators using hemoclips. Once the flap was completely mobilized skin signal was located on her flap and this was marked with a 5-0 Prolene suture. The flap was secured to surrounding tissues and allowed to rest.We next turned our attention to the left lower extremity. The anterior tibial signal was located using Doppler probe. A lazy S incision was planned extending proximally from the left ankle defect for approximately 8 cm. We sharply incised along her marking and carefully dissected until the anteriortibial vessels were visualized. Carefully identified and cleaned the anterior tibial artery and vein. An adjacent accompanying second vein was noted and this was also identified and clean. We next examined the ankle defect. We gently debrided the surface of the wound using sharp excisional debridement. We then elevated the skin edges around the ankle wound to facilitate inset of our flap. At thisthe operating microscope was brought to visualize the lower extremity vessels and they were furtherprepared for anastomosis. At this point I asked the anesthesiologist to circulate 3000 units of IV heparin. Once approximately 5 minutes the past we carefully divided the radial artery, its accompanying vena comitans, and the cephalic vein. The flap was delivered to the ankle and we examined all vessels under the operating microscope. We first performed venous anastomosis between one of the vena c omitans and the deeper accessory vein using a 2.0mm venous employment agency manager. An end-to-side anastomosis was performed between the anterior tibial artery and the radial artery using 8-0 nylon suture. The anterior tibial vein was anastomosed to the cephalic vein using a 2.5mm venous employment agency manager. Once anastomosis was complete the Acland clamps on the vessels were removed. Total ischemia time was 151 minutes. Adequate flow was verified using spy angiography as well as direct visualization. The flap was inset using 3-0 Vicryl suture in the deep dermis and interrupted 3-0 Prolene sutures to reapproximate skin edges in mattress fashion. The left thigh was prepared in a 0.014 inch thickness skin graft was obtained using a Katharine dermatome to cover the distal left volar forearm where the flap was taken. The donor site on the thigh was dressed with an Allevyn dressing. The skin graft was secured circumferentially with 4-0 chromic suture to the left distal volar forearm. The remainder of the forearm wound was closed with 3-0 Vicryl in the deep dermis and interrupted mattress 3-0 Prolene sutures to reapproximate skin edges. The wound was cleansed and Xeroform and a wound VAC at 125 mmHg was applied to thearea of the skin graft. A volar splint was then applied. A bulky dressing and a posterior splint was applied to the left leg. Doppler signal was verified in the flap. All counts were correct at the end of the case. The patient was extubated and taken to the ICU in stable condition. Infection Bundle used? N/A Attestation: Case Date: 03/13/2021 I was present and I participated during the entire procedure (does not need to include opening and closing). Aydee Franklin MD 03/13/2021 documented in this encounter Plan of Treatment Scheduled Referrals Name Type Priority Associated Diagnoses Orde r Schedule OPAT: Order / Recommendation for Post Discharge IV Antibiotic Management Outpatient Referral Routine Ankle abscess Wound infection complicating hardware, sequela Ordered: 03/16/2021 documented as of this encounter Procedures Procedure Name Priority Date/Time Associated Diagnosis Comments POCT GLUCOSE Routine 03/17/2021 11:36 AM EDT POCT GLUCOSE Routine 03/17/2021 9:02 AM EDT POCT GLUCOSE Routine 03/17/2021 7:22 AM EDT POCT GLUCOSE Routine 03/17/2021 3:25 AM EDT HEMOGRAM Routine 03/17/2021 2:40 AM EDT DIFFERENTIAL, AUTOMATED Routine 03/17/2021 2:40 AM EDT HC CBC,PLT & AUTO DIFF Routine 03/17/2021 2:40 AM EDT HC PREALBUMIN, SERUM Routine 03/17/2021 2:40 AM EDT HC PHOSPHORUS, SERUM Routine 03/17/2021 2:40 AM EDT HC MAGNESIUM, SERUM Routine 03/17/2021 2 :40 AM EDT BASIC METABOLIC PANEL Routine 03/17/2021 2:40 AM EDT POCT GLUCOSE Routine 03/16/2021 10:58 PM EDT POCT GLUCOSE Routine 03/16/2021 8:04 PM EDT POCT GLUCOSE Routine 03/16/2021 3:56 PM EDT IR TUNNELED CENTRAL VENOUS ACCESS NON-DIALYSIS Routine 03/16/2021 3:14 PM EDT POCT GLUCOSE Routine 03/16/2021 11:45 AM EDT POCT GLUCOSE Routine 03/16/2021 7:49 AM EDT POCT GLUCOSE Routine 03/16/2021 3:53 AM EDT CRP, ACUTE INFLAMMATION Routine 03/16/2021 2:18 AM EDT HEMOGRAM Routine 03/16/2021 2:18 AM EDT DIFFERENTIAL, AUTOMATED Routine 03/16/2021 2:18 AM EDT HC CBC,PLT & AUTO DIFF Routine 03/16/2021 2:18 AM EDT HC PREALBUMIN, SERUM Routine 03/16/2021 2:18 AM EDT HC PHOSPHORUS, SERUM Routine 03/16/2021 2:18 AM EDT HC MAGNESIUM, SERUM Routine 03/16/2021 2 :18 AM EDT HEPATIC FUNCTION PANEL Routine 03/16/2021 2:18 AM EDT BASIC METABOLIC PANEL Routine 03/16/2021 2:18 AM EDT POCT GLUCOSE Routine 03/15/2021 11:23 PM EDT POCT GLUCOSE Routine 03/15/2021 8:49 PM EDT POCT GLUCOSE Routine 03/15/2021 3:37 PM EDT POCT GLUCOSE Routine 03/15/2021 12:51 PM EDT POCT GLUCOSE Routine 03/15/2021 11:47 AM EDT POCT GLUCOSE Routine 03/15/2021 8:37 AM EDT POCT GLUCOSE Routine 03/15/2021 8:09 AM EDT POCT GLUCOSE Routine 03/15/2021 4:17 AM EDT POCT GLUCOSE Routine 03/15/2021 12:07 AM EDT HEMOGRAM Routine 03/15/2021 12:05 AM EDT DIFFERENTIAL, AUTOMATED Routine 03/15/2021 12:05 AM EDT HC CBC,PLT & AUTO DIFF Routine 03/15/2021 12:05 AM EDT HC PREALBUMIN, SERUM Routine 03/15/2021 12:05 AM EDT HC PHOSPHORUS, SERUM Routine 03/15/2021 12:05 AM EDT HC MAGNESIUM, SERUM Routine 03/15/2021 1 2:05 AM EDT HC CREATINE PHOSPHOKINASE, SERUM Routine 03/15/2021 12:05 AM EDT BASIC METABOLIC PANEL Routine 03/15/2021 12:05 AM EDT POCT GLUCOSE Routine 03/14/2021 8:37 PM EDT POCT GLUCOSE Routine 03/14/2021 3:29 PM EDT POCT GLUCOSE Routine 03/14/2021 1:10 PM EDT POCT GLUCOSE Routine 03/14/2021 7:48 AM EDT HEMOGRAM Routine 03/14/2021 12:30 AM EDT DIFFERENTIAL, AUTOMATED Routine 03/14/2021 12:30 AM EDT HC CBC,PLT & AUTO DIFF Routine 03/14/2021 12:30 AM EDT HC PREALBUMIN, SERUM Routine 03/14/2021 12:30 AM EDT HC PHOSPHORUS, SERUM Routine 03/14/2021 12:30 AM EDT HC MAGNESIUM, SERUM Routine 03/14/2021 1 2:30 AM EDT BASIC METABOLIC PANEL Routine 03/14/2021 12:30 AM EDT XR ELBOW 3 VIEWS RIGHT (GENERIC) Routine 03/13/2021 8:08 PM EDT POCT GLUCOSE Routine 03/13/2021 4:46 PM EDT POCT GLUCOSE Routine 03/13/2021 3:33 PM EDT POCT GLUCOSE Routine 03/13/2021 2:31 PM EDT POCT GLUCOSE Routine 03/13/2021 1:33 PM EDT POCT GLUCOSE Routine 03/13/2021 12:38 PM EDT POCT GLUCOSE Routine 03/13/2021 11:09 AM EDT Split Grft Trunk, Arm, Leg <100Sqcm ([id number]) 03/13/2021 8:39 AM EDT Closed fracture of left ankle with routine healing Free Fascial Flap W Microvasc Anast ([id number]) 03/13/2021 8:39 AM EDT Closed fracture of left ankle with routine healing POCT GLUCOSE Routine 03/13/2021 7:31 AM EDT FLAP, FREE FASCIAL, W/ MICRO ANASTOMOSIS, LOWER EXTREMITY Routine 03/13/2021 6:38 AM EDT Closed fracture of left ankle with routine healing SPLIT THICK SKIN GRAFT,100 SQ CM OR LESS, LEGS Routine 03/13/2021 6:38 AM EDT Closed fracture of left ankle with routine healing IMPLANTABLE DEVICES SCAN 03/13/2021 12:00 AM EDT documented in this encounter Results * POCT Glucose (03/17/2021 11:36 AM EDT) Glucose, POC 187 65 - 199 mg/dL [facility] Comment: Supplemental ranges: <140 mg/dL before meals <180 mg/dL all other times of the day Blood 03/17/2021 11:3 6 AM EDT 03/17/2021 11:36 AM EDT Aydee Franklin MD POINT OF CARE TEST O RDERABLES [facility] [place] [address] * (ABNORMAL) POCT Glucose (03/17/2021 9:02 AM EDT) Glucose, POC 254(H) 65 - 199 mg/dL [facility] Comment: Supplemental ranges: <140 mg/dL before meals <180 mg/dL all other times of the day Blood 03/17/2021 9:02 AM EDT 03/17/2021 9:02 AM EDT Aydee Franklin MD POINT OF CARE TEST O RDERABLES Performing Organization Address [facility] Co de Phone Number [facility] [place] [address] * POCT Glucose (03/17/2021 7:22 AM EDT) Glucose, POC 166 65 - 199 mg/dL [facility] Comment: Supplemental ranges: <140 mg/dL before meals <180 mg/dL all other times of the day Blood 03/17/2021 7:22 AM EDT 03/17/2021 7:22 AM EDT Aydee Franklin MD POINT OF CARE TEST O RDERABLES Performing Organization Address [facility] Co de Phone Number [facility] [place] [address] * POCT Glucose (03/17/2021 3:25 AM EDT) Glucose, POC 169 65 - 199 mg/dL [facility] Comment: Supplemental ranges: <140 mg/dL before meals <180 mg/dL all other times of the day Blood 03/17/2021 3:25 AM EDT 03/17/2021 3:25 AM EDT Aydee Franklin MD POINT OF CARE TEST O RDERABLES Performing Organization Address [facility] Co de Phone Number [facility] [address] * (ABNORMAL) Differential, Automated (03/17/2021 2:40 AM EDT) Neutrophil % 80.2 % [facility] Neutrophil Absolute 8.54(H) 1.70 - 6.10 x10(3)/mc L [facility] Lymph % 10.6 % [facility] Lymphocytes Abs 1.1 0.9 - 3.2 x10(3)/mc L [facility] Monocyte % 4.8 % [facility] Monocyte Abs 0.5 0.3 - 0.9 x10(3)/[facility] Eos % 3.5 % [facility] Eosinophils Abs 0.4 0.0 - 0.4 x10(3)/[facility] Basophil % 0.5 % [facility] Baso Absolute 0.0 0.0 - 0.1 x10(3)/[facility] Immature Gran % 0.40 % [facility] Comment: Immature granulocytes(IG's)percentage and absolute count will include metamyelocytes, myelocytes, and promyelocytes. Blood smears from CBCs yielding IG's will be scanned manually for concordance. If this scan disagrees with the automated IG or if promyelocytes are noted, a manual differential will be performed. Immature Gran Absolute 0.04 0.00 - 0.04 x10(3)/[facility] Blood 03/17/2021 2:40 AM EDT 03/17/2021 2:42 AM EDT Narrative Resulting Agency Comment Spec In Lab Joann Delcid MD HEMATOLOGY ORDERABLE S [facility] [place] [address] * (ABNORMAL) Hemogram (03/17/2021 2:40 AM EDT) White Blood Cell 10.6(H) 4.0 - 9.5 x10(3)/[facility] Red Blood Cell 3.70(L) 4.00 - 5.21 x10(6)/[facility] Hemoglobin 10.2(L) 11.7 - 15.5 gm/dL [facility] Hematocrit 32.1(L) 35.7 - 45.8 % [facility] Mean Cell Volume 86.8 82.6 - 94.4 fL [facility] Mean Cell Hemoglobin 27.6 27.1 - 32.0 pg [facility] Mean Cell Hemoglobin Concentration 31.8 31.7 - 35.0 gm/dL [facility] Platelet 286 145 - 357 x10(3)/mc L [facility] RDW Standard Deviation 44.4 37.0 - 46.0 fL [facility] RDW coefficient of variation 14.2(H) 11.5 - 14.1 % [facility] Mean Platelet Volume 9.8 7.6 - 12.9 fL [facility] NRBC% auto 0.0 % [facility] NRBC Absolute 0.000 0.000 - 0.000 x10(3)/mc L [facility] Blood 03/17/2021 2:40 AM EDT 03/17/2021 2:42 AM EDT Narrative Resulting Agency Comment Spec In Lab Joann Delcid MD HEMATOLOGY ORDERABLE S Performing Organization Address City/[facility]/ZIP Co de Phone Number [facility] [place] [address] * Phosphorus (03/17/2021 2:40 AM EDT) Phosphorus 3.0 2.5 - 4.5 mg/dL [facility] Blood 03/17/2021 2:40 AM EDT 03/17/2021 2:42 AM EDT Narrative Resulting Agency Comment Spec In Lab Aydee Franklin MD CHEMISTRY ORDERABLES [facility] [place] [address] * Magnesium (03/17/2021 2:40 AM EDT) Magnesium 0.80 0.69 - 1.07 mmol/L [facility] Blood 03/17/2021 2:40 AM EDT 03/17/2021 2:42 AM EDT Narrative Resulting Agency Comment Spec In Lab Aydee Franklin MD CHEMISTRY ORDERABLES Performing Organization Address City/[facility] Co de Phone Number [facility] [address] * (ABNORMAL) Prealbumin (03/17/2021 2:40 AM EDT) Prealbumin 10(L) 20 - 40 mg/dL [facility] Comment: Prealbumin levels are generally lower in the pediatric population; adult concentrations are usually attained near puberty. Blood 03/17/2021 2:40 AM EDT 03/17/2021 2:42 AM EDT Narrative Resulting Agency Comment Spec In Lab Aydee Franklin MD CHEMISTRY ORDERABLES Performing Organization Address [facility] Co de Phone Number [facility] [address] * (ABNORMAL) Basic Metabolic Panel (non-fasting) (03/17/2021 2:40 AM EDT) Glucose 154 65 - 199 mg/dL [facility] Comment:Diabetes: >=200 mg/d L plus symptoms Blood Urea Nitrogen 11 8 - 18 mg/dL [facility] Creatinine 0.68(L) 0.70 - 1.20 mg/dL [facility] Sodium 141 135 - 145 mmol/L [facility] Potassium 3.9 3.5 - 5.0 mmol/L [facility] Comment: Please note: ??Patients with WBC >100,000 may have falsely elevated Potassium levels. ??For accurate Potassium quantification in these patients send serum separator tube (gold top) for subsequent determinations. ??Contact the Clinical Chemistry Laboratory if there are any questions. Chloride 106 98 - 107 mmol/L [facility] Carbon Dioxide 26 22 - 31 mmol/L [facility] Anion Gap 9 5 - 15 mmol/L [facility] Calcium 8.5 8.5 - 10.5 mg/dL [facility] Est Glomerular Filtration Rate 96 >=60 mL/min/1. 73 m?? [facility] Comment: This patient? s estimated glomerular [...] In Lab Aydee Franklin MD CHEMISTRY ORDERABLES Performing Organization Address [facility]/ZIP Co de Phone Number [facility] [place] [address] * POCT Glucose (03/16/2021 10:58 PM EDT) Glucose, POC 188 65 - 199 mg/dL [facility] Comment: Supplemental ranges: <140 mg/dL before meals <180 mg/dL all other times of the day Blood 03/16/2021 10:5 8 PM EDT 03/16/2021 10:58 PM EDT Aydee Franklin MD POINT OF CARE TEST O RDERABLES Performing Organization Address City/[facility]/ZIP Co de Phone Number [facility] [place] [address] * (ABNORMAL) POCT Glucose (03/16/2021 8:04 PM EDT) Glucose, POC 213(H) 65 - 199 mg/dL [facility] Comment: Supplemental ranges: <140 mg/dL before meals <180 mg/dL all other times of the day Blood 03/16/2021 8:04 PM EDT 03/16/2021 8:04 PM EDT Aydee Franklin MD POINT OF CARE TEST O VIKKI Performing Organization Address City/[facility] Co de Phone Number [facility] [place] [address] * POCT Glucose (03/16/2021 3:56 PM EDT) Glucose, POC 97 65 - 199 mg/dL [facility] Comment: Supplemental ranges: <140 mg/dL before meals <180 mg/dL all other times of the day Blood 03/16/2021 3:56 PM EDT 03/16/2021 3:56 PM EDT Aydee Franklin MD POINT OF CARE TEST O VIKKI Performing Organization Address City/[facility] Co de Phone Number [facility] [place] [address] * IR Tunneled Central Venous Access Non-Dialysis (03/16/2021 3:14 PM EDT) Anatomical Region Laterality Modality Chest, Vascular X-Ray Angiograph y Narrative 03/16/2021 3:53 PM EDT Interventional Radiology Procedure Note Procedure: Tunneled single-lumen catheter implant Indication: 60-year-old female on long-term IV antibiotics for chronic left lower extremity wound, durable mcc central venous access for frequent infusions Procedure Summary: 1.) Venous access with ultrasound guidance 2.) Tunneled central venous catheter placement under fluoroscopic guidance Pre-procedure: Informed consent for the procedure including risks, benefits and alternatives was obtained and time-out was performed prior to the procedure. The site was prepared and draped using all elements of maximal sterile barrier technique. ?? Sedation: Due to the painful nature of the procedure, patient received split doses of intravenous midazolam and fentanyl from the interventional radiology nurse while pulse, pressure, and oxygen saturation were continuously monitored. Technique: The right internal jugular vein was sonographically evaluated and determined to be patent. A permanent image was stored. Local anesthetic was administered. The vein accessed via real-time ultrasound and micropuncture set with 21 gauge needle. A 0.018 wire was advanced into the superior vena cava. The remainder of the procedure was performed with fluoroscopic guidance. A 4 Fr introducer sheath was placed and the wire exchanged for a 0.035 J wire. The wire was advanced into the inferior vena cava. Local anesthetic was then infiltrated subcutaneously in a caudal-lateral direction from the venotomy. A 1 cm incision was made on the anterior chest. A tunneler was used to advance the catheter subcutaneously to the venous access site. A peel-away sheath advanced over the wire. The wire and inner obturator were removed and the catheter advanced into the superior vena cava. Catheter position was confirmed and a static image stored. All ports flushed and aspirated well. A sterile dressing applied. Medications: Please see MAR Contrast: None Fluoroscopy: 0.5 minutes Estimated blood loss: <5 ml Complications: ??No immediate Findings: Needle visualized in right internal jugular vein lumen. Final catheter tip position in the cavoatrial junction. Impression: Insertion of right internal jugular, Bard PowerHickman 8 Fr cuffed single lumen catheter. The catheter may be used immediately. Resident: Mono Felipe MD Attending: Yunior Flores MD Procedure/Teaching Attestation: I was present for the entire procedure. Moderate Sedation Attestation: I was present during the intraservice time as documented by the IR nurse. Zainab Briones APRN IMG IR ORDERABLES * (ABNORMAL) POCT Glucose (03/16/2021 11:45 AM EDT) Glucose, POC 244(H) 65 - 199 mg/dL [facility] Comment: Supplemental ranges: <140 mg/dL before meals <180 mg/dL all other times of the day Blood 03/16/2021 11:4 5 AM EDT 03/16/2021 11:45 AM EDT Aydee Franklin MD POINT OF CARE TEST O RDERABLES [facility] [place] [address] * POCT Glucose (03/16/2021 7:49 AM EDT) Glucose, POC 172 65 - 199 mg/dL [facility] Comment: Supplemental ranges: <140 mg/dL before meals <180 mg/dL all other times of the day Blood 03/16/2021 7:49 AM EDT 03/16/2021 7:49 AM EDT Aydee Franklin MD POINT OF CARE TEST O VIKKI Performing Organization Address [facility] Co de Phone Number [facility] [place] [address] * POCT Glucose (03/16/2021 3:53 AM EDT) Glucose, POC 139 65 - 199 mg/dL [facility] Comment: Supplemental ranges: <140 mg/dL before meals <180 mg/dL all other times of the day Blood 03/16/2021 3:53 AM EDT 03/16/2021 3:53 AM EDT Aydee Franklin MD POINT OF CARE TEST O VIKKI Performing Organization Address [facility] Co de Phone Number [facility] [address] * (ABNORMAL) Hepatic Function Panel (03/16/2021 2:18 AM EDT) Protein, Total 6.2 6.1 - 8.0 gm/dL [facility] Albumin 3.0(L) 3.2 - 5.2 gm/dL [facility] Aspartate Aminotransferase 22 0 - 30 unit/L [facility] Alanine Aminotransferase 7 0 - 30 unit/L [facility] Alkaline Phosphatase 95 35 - 105 unit/L [facility] Bilirubin, Total 0.2 0.2 - 1.3 mg/dL [facility] Bilirubin, Direct <0.1 0.0 - 0.3 mg/dL [facility] Blood Venous Draw / Unknown 03/16/2021 2:18 AM EDT 03/16/2021 2:32 AM EDT Narrative Resulting Agency Comment Spec In Lab Aydee Franklin MD CHEMISTRY ORDERABLES Performing Organization Address [facility]/ZIP Co de Phone Number [facility] [place] [address] * (ABNORMAL) CRP, acute inflammation (03/16/2021 2:18 AM EDT) [facility] C-Reactive Protein 163.1(H) <=4.9 mg/L [facility] Blood Venous Draw / Unknown 03/16/2021 2:18 AM EDT 03/16/2021 2:32 AM EDT Narrative Resulting Agency Comment Spec In Lab Aydee Franklin MD CHEMISTRY ORDERABLES Performing Organization Address [facility] Co de Phone Number [facility] [address] * (ABNORMAL) Differential, Automated (03/16/2021 2:18 AM EDT) [facility] Neutrophil % 79.9 % [facility] Neutrophil Absolute 8.61(H) 1.70 - 6.10 x10(3)/mc L [facility] Lymph % 10.8 % [facility] Lymphocytes Abs 1.2 0.9 - 3.2 x10(3)/mc L [facility] Monocyte % 5.5 % [facility] Monocyte Abs 0.6 0.3 - 0.9 x10(3)/mc L [facility] Eos % 2.9 % [facility] Eosinophils Abs 0.3 0.0 - 0.4 x10(3)/mc L [facility] Basophil % 0.4 % [facility] Baso Absolute 0.0 0.0 - 0.1 x10(3)/mc L [facility] Immature Gran % 0.50 % [facility] Comment: Immature granulocytes(IG's)percentage and absolute count will include metamyelocytes, myelocytes, and promyelocytes. Blood smears from CBCs yielding IG's will be scanned manually for concordance. If this scan disagrees with the automated IG or if promyelocytes are noted, a manual differential will be performed. Immature Gran Absolute 0.05(H) 0.00 - 0.04 x10(3)/mc L [facility] Blood 03/16/2021 2:18 AM EDT 03/16/2021 2:31 AM EDT Narrative Resulting Agency Comment Spec In Lab Joann Delcid MD HEMATOLOGY ORDERABLE S [facility] [place] [address] * (ABNORMAL) Hemogram (03/16/2021 2:18 AM EDT) White Blood Cell 10.8(H) 4.0 - 9.5 x10(3)/mc L [facility] Red Blood Cell 3.95(L) 4.00 - 5.21 x10(6)/mc L [facility] Hemoglobin 10.8(L) 11.7 - 15.5 gm/dL [facility] Hematocrit 34.4(L) 35.7 - 45.8 % [facility] Mean Cell Volume 87.1 82.6 - 94.4 fL [facility] Mean Cell Hemoglobin 27.3 27.1 - 32.0 pg [facility] Mean Cell Hemoglobin Concentration 31.4(L) 31.7 - 35.0 gm/dL [facility] Platelet 294 145 - 357 x10(3)/mc L [facility] RDW Standard Deviation 44.7 37.0 - 46.0 fL [facility] RDW coefficient of variation 13.9 11.5 - 14.1 % [facility] Mean Platelet Volume 10.0 7.6 - 12.9 fL [facility] NRBC% auto 0.0 % [facility] NRBC Absolute 0.000 0.000 - 0.000 x10(3)/mc L [facility] Blood 03/16/2021 2:18 AM EDT 03/16/2021 2:31 AM EDT Narrative Resulting Agency Comment Spec In Lab Joann Delcid MD HEMATOLOGY ORDERABLE S [facility] [place] [address] * Phosphorus (03/16/2021 2:18 AM EDT) Phosphorus 2.9 2.5 - 4.5 mg/dL [facility] Blood 03/16/2021 2:18 AM EDT 03/16/2021 2:31 AM EDT Narrative Resulting Agency Comment Spec In Lab Aydee Franklin MD CHEMISTRY ORDERABLES Performing Organization Address City/[facility]/ZIP Co de Phone Number [facility] [place] [address] * Magnesium (03/16/2021 2:18 AM EDT) Magnesium 0.86 0.69 - 1.07 mmol/L [facility] Blood 03/16/2021 2:18 AM EDT 03/16/2021 2:31 AM EDT Narrative Resulting Agency Comment Spec In Lab Aydee Franklin MD CHEMISTRY ORDERABLES Performing Organization Address [facility]/ZIP Co de Phone Number [facility] [address] * (ABNORMAL) Prealbumin (03/16/2021 2:18 AM EDT) Prealbumin 10(L) 20 - 40 mg/dL [facility] Comment: Prealbumin levels are generally lower in the pediatric population; adult concentrations are usually attained near puberty. Blood 03/16/2021 2:18 AM EDT 03/16/2021 2:31 AM EDT Narrative Resulting Agency Comment Spec In Lab Aydee Franklin MD CHEMISTRY ORDERABLES [facility] [place] [address] * Basic Metabolic Panel (non-fasting) (03/16/2021 2:18 AM EDT) Glucose 150 65 - 199 mg/dL [facility] Comment:Diabetes: >=200 mg/d L plus symptoms Blood Urea Nitrogen 8 8 - 18 mg/dL [facility] Creatinine 0.78 0.70 - 1.20 mg/dL [facility] Sodium 140 135 - 145 mmol/L [facility] Potassium 3.6 3.5 - 5.0 mmol/L [facility] Comment: Please note: ??Patients with WBC >100,000 may have falsely elevated Potassium levels. ??For accurate Potassium quantification in these patients send serum separator tube (gold top) for subsequent determinations. ??Contact the Clinical Chemistry Laboratory if there are any questions. Chloride 107 98 - 107 mmol/L [facility] Carbon Dioxide 23 22 - 31 mmol/L [facility] Anion Gap 10 5 - 15 mmol/L [facility] Calcium 8.8 8.5 - 10.5 mg/dL [facility] Est Glomerular Filtration Rate 83 >=60 mL/min/1. 73 m?? [facility] Comment: This patient? s estimated glomerular filtration rate (eGFR) is between 83 mL/min/1.73 m2 (patients with less muscle mass) and 96 mL/min/1.73 m2 (patients with more muscle mass) [...] and symptoms in addition to eGFR. Blood 03/16/2021 2:18 AM EDT 03/16/2021 2:31 AM EDT Narrative Resulting Agency Comment Spec In Lab Aydee Franklin MD CHEMISTRY ORDERABLES Performing Organization Address City/[facility]/ZIP Co de Phone Number [facility] [place] [address] * POCT Glucose (03/15/2021 11:23 PM EDT) Glucose, POC 140 65 - 199 mg/dL [facility] Comment: Supplemental ranges: <140 mg/dL before meals <180 mg/dL all other times of the day Blood 03/15/2021 11:2 3 PM EDT 03/15/2021 11:23 PM EDT Aydee Franklin MD POINT OF CARE TEST O RDERABLES Performing Organization Address [facility] Co de Phone Number [facility] [place] [address] * (ABNORMAL) POCT Glucose (03/15/2021 8:49 PM EDT) Glucose, POC 241(H) 65 - 199 mg/dL [facility] Comment: Supplemental ranges: <140 mg/dL before meals <180 mg/dL all other times of the day Blood 03/15/2021 8:49 PM EDT 03/15/2021 8:49 PM EDT Aydee Franklin MD POINT OF CARE TEST O RDERABLES Performing Organization Address [facility] Co de Phone Number [facility] [place] [address] * POCT Glucose (03/15/2021 3:37 PM EDT) Glucose, POC 190 65 - 199 mg/dL [facility] Comment: Supplemental ranges: <140 mg/dL before meals <180 mg/dL all other times of the day Blood 03/15/2021 3:37 PM EDT 03/15/2021 3:37 PM EDT Aydee Franklin MD POINT OF CARE TEST O RDFLAKITA [facility] [place] [address] * (ABNORMAL) POCT Glucose (03/15/2021 12:51 PM EDT) Glucose, POC 243(H) 65 - 199 mg/dL [facility] Comment: Supplemental ranges: <140 mg/dL before meals <180 mg/dL all other times of the day Blood 03/15/2021 12:5 1 PM EDT 03/15/2021 12:51 PM EDT Aydee Franklin MD POINT OF CARE TEST O VIKKI Performing Organization Address [facility] Co de Phone Number [facility] [place] [address] * (ABNORMAL) POCT Glucose (03/15/2021 11:47 AM EDT) Glucose, POC 223(H) 65 - 199 mg/dL [facility] Comment: Supplemental ranges: <140 mg/dL before meals <180 mg/dL all other times of the day Blood 03/15/2021 11:4 7 AM EDT 03/15/2021 11:47 AM EDT Aydee Franklin MD POINT OF CARE TEST O RDERAMISBAH [facility] [place] [address] * POCT Glucose (03/15/2021 8:37 AM EDT) Glucose, POC 136 65 - 199 mg/dL [facility] Comment: Supplemental ranges: <140 mg/dL before meals <180 mg/dL all other times of the day Blood 03/15/2021 8:37 AM EDT 03/15/2021 8:37 AM EDT Aydee Franklin MD POINT OF CARE TEST O VIKKI Performing Organization Address City/[facility]/ZIP Co de Phone Number [facility] [place] [address] * POCT Glucose (03/15/2021 8:09 AM EDT) Glucose, POC 123 65 - 199 mg/dL [facility] Comment: Supplemental ranges: <140 mg/dL before meals <180 mg/dL all other times of the day Blood 03/15/2021 8:09 AM EDT 03/15/2021 8:09 AM EDT Aydee Franklin MD POINT OF CARE TEST O VIKKI Performing Organization Address [facility]/ZIP Co de Phone Number [facility] [place] [address] * POCT Glucose (03/15/2021 4:17 AM EDT) Glucose, POC 152 65 - 199 mg/dL [facility] Comment: Supplemental ranges: <140 mg/dL before meals <180 mg/dL all other times of the day Blood 03/15/2021 4:17 AM EDT 03/15/2021 4:17 AM EDT Aydee Franklin MD POINT OF CARE TEST O RDERAMISBAH Performing Organization Address City/[facility]/ZIP Co de Phone Number [facility] [address] * POCT Glucose (03/15/2021 12:07 AM EDT) Glucose, POC 108 65 - 199 mg/dL [facility] Comment: Supplemental ranges: <140 mg/dL before meals <180 mg/dL all other times of the day Blood 03/15/2021 12:0 7 AM EDT 03/15/2021 12:07 AM EDT Aydee Franklin MD POINT OF CARE TEST O RDERABLES [facility] [place] [address] * (ABNORMAL) Differential, Automated (03/15/2021 12:05 AM EDT) Neutrophil % 78.2 % [facility] Neutrophil Absolute 8.40(H) 1.70 - 6.10 x10(3)/mc L [facility] Lymph % 12.6 % [facility] Lymphocytes Abs 1.4 0.9 - 3.2 x10(3)/ L [facility] Monocyte % 5.5 % [facility] Monocyte Abs 0.6 0.3 - 0.9 x10(3)/mc L [facility] Eos % 2.8 % [facility] Eosinophils Abs 0.3 0.0 - 0.4 x10(3)/ L [facility] Basophil % 0.5 % [facility] Baso Absolute 0.0 0.0 - 0.1 x10(3)/mc L [facility] Immature Gran % 0.40 % [facility] Comment: Immature granulocytes(IG's)percentage and absolute count will include metamyelocytes, myelocytes, and promyelocytes. Blood smears from CBCs yielding IG's will be scanned manually for concordance. If this scan disagrees with the automated IG or if promyelocytes are noted, a manual differential will be performed. Immature Gran Absolute 0.04 0.00 - 0.04 x10(3)/mc L [facility] Blood 03/15/2021 12:0 5 AM EDT 03/15/2021 12:20 AM EDT Narrative Resulting Agency Comment Spec In Lab Aimee Milton MD HEMATOLOGY ORDERABLE S [facility] [place] [address] * (ABNORMAL) Hemogram (03/15/2021 12:05 AM EDT) White Blood Cell 10.7(H) 4.0 - 9.5 x10(3)/mc L [facility] Red Blood Cell 3.69(L) 4.00 - 5.21 x10(6)/mc L [facility] Hemoglobin 10.4(L) 11.7 - 15.5 gm/dL [facility] Hematocrit 32.0(L) 35.7 - 45.8 % [facility] Mean Cell Volume 86.7 82.6 - 94.4 fL [facility] Mean Cell Hemoglobin 28.2 27.1 - 32.0 pg [facility] Mean Cell Hemoglobin Concentration 32.5 31.7 - 35.0 gm/dL [facility] Platelet 273 145 - 357 x10(3)/mc L [facility] RDW Standard Deviation 44.1 37.0 - 46.0 [facility] RDW coefficient of variation 13.9 11.5 - 14.1 % [facility] Mean Platelet Volume 9.7 7.6 - 12.9 fL [facility] NRBC% auto 0.0 % [facility] NRBC Absolute 0.000 0.000 - 0.000 x10(3)/mc L [facility] Blood 03/15/2021 12:0 5 AM EDT 03/15/2021 12:20 AM EDT Narrative Resulting Agency Comment Spec In Lab Aimee Milton MD HEMATOLOGY ORDERABLE S [facility] [place] [address] * Phosphorus (03/15/2021 12:05 AM EDT) Phosphorus 2.9 2.5 - 4.5 mg/dL [facility] Blood 03/15/2021 12:0 5 AM EDT 03/15/2021 12:20 AM EDT Narrative Resulting Agency Comment Spec In Lab Aydee Franklin MD CHEMISTRY ORDERABLES [facility] [place] [address] * Magnesium (03/15/2021 12:05 AM EDT) [facility] Magnesium 0.86 0.69 - 1.07 mmol/L [facility] Blood 03/15/2021 12:0 5 AM EDT 03/15/2021 12:20 AM EDT Narrative Resulting Agency Comment Spec In Lab Aydee Franklin MD CHEMISTRY ORDERABLES Performing Organization Address [facility] Co de Phone Number [facility] [address] * (ABNORMAL) Prealbumin (03/15/2021 12:05 AM EDT) [facility] Prealbumin 9(L) 20 - 40 mg/dL [facility] Comment: Prealbumin levels are generally lower in the pediatric population; adult concentrations are usually attained near puberty. Blood 03/15/2021 12:0 5 AM EDT 03/15/2021 12:20 AM EDT Narrative Resulting Agency Comment Spec In Lab Aydee Franklin MD CHEMISTRY ORDERABLES Performing Organization Address City/[facility]/ZIP Co de Phone Number [facility] [place] [address] * (ABNORMAL) Basic Metabolic Panel (non-fasting) (03/15/2021 12:05 AM EDT) [facility] Glucose 103 65 - 199 mg/dL [facility] Comment:Diabetes: >=200 mg/d L plus symptoms Blood Urea Nitrogen 7(L) 8 - 18 mg/dL [facility] Creatinine 0.84 0.70 - 1.20 mg/dL [facility] Sodium 142 135 - 145 mmol/L [facility] Potassium 4.0 3.5 - 5.0 mmol/L [facility] Comment: Please note: ??Patients with WBC >100,000 may have falsely elevated Potassium levels. ??For accurate Potassium quantification in these patients send serum separator tube (gold top) for subsequent determinations. ??Contact the Clinical Chemistry Laboratory if there are any questions. Chloride 110(H) 98 - 107 mmol/L [facility] Carbon Dioxide 24 22 - 31 mmol/L [facility] Anion Gap 8 5 - 15 mmol/L [facility] Calcium 8.3(L) 8.5 - 10.5 mg/dL [facility] Est Glomerular Filtration Rate 76 >=60 mL/min/1. 73 m?? [facility] Comment: This patient? s estimated glomerular filtration rate (eGFR) is between 76 mL/min/1.73 m2 (patients with less muscle mass) and 88 mL/min/1.73 m2 (patients with more muscle mass) [...] and symptoms in addition to eGFR. Blood 03/15/2021 12:0 5 AM EDT 03/15/2021 12:20 AM EDT Narrative Resulting Agency Comment Spec In Lab Aydee Franklin MD CHEMISTRY ORDERABLES [facility] [place] [address] * CK (03/15/2021 12:05 AM EDT) Creatine Kinase 113 0 - 160 unit/L [facility] Blood 03/15/2021 12:0 5 AM EDT 03/15/2021 12:20 AM EDT Narrative Resulting Agency Comment Spec In Lab Aydee Franklin MD CHEMISTRY ORDERABLES Performing Organization Address City/[facility]/ZIP Co de Phone Number [facility] [place] [address] * POCT Glucose (03/14/2021 8:37 PM EDT) Glucose, POC 168 65 - 199 mg/dL [facility] Comment: Supplemental ranges: <140 mg/dL before meals <180 mg/dL all other times of the day Blood 03/14/2021 8:37 PM EDT 03/14/2021 8:37 PM EDT Aydee Franklin MD POINT OF CARE TEST O RDERABLES Performing Organization Address [facility] Co de Phone Number [facility] [place] [address] * POCT Glucose (03/14/2021 3:29 PM EDT) Glucose, POC 128 65 - 199 mg/dL [facility] Comment: Supplemental ranges: <140 mg/dL before meals <180 mg/dL all other times of the day Blood 03/14/2021 3:29 PM EDT 03/14/2021 3:29 PM EDT Aydee Franklin MD POINT OF CARE TEST O RDERABLES Performing Organization Address [facility] Co de Phone Number [facility] [place] [address] * (ABNORMAL) POCT Glucose (03/14/2021 1:10 PM EDT) Glucose, POC 242(H) 65 - 199 mg/dL [facility] Comment: Supplemental ranges: <140 mg/dL before meals <180 mg/dL all other times of the day Blood 03/14/2021 1:10 PM EDT 03/14/2021 1:10 PM EDT Aydee Franklin MD POINT OF CARE TEST O RDERABLES Performing Organization Address City/[facility] Co de Phone Number [facility] [place] [address] * POCT Glucose (03/14/2021 7:48 AM EDT) Glucose, POC 137 65 - 199 mg/dL [facility] Comment: Supplemental ranges: <140 mg/dL before meals <180 mg/dL all other times of the day Blood 03/14/2021 7:48 AM EDT 03/14/2021 7:48 AM EDT Aydee Franklin MD POINT OF CARE TEST O RDFLAKITA Performing Organization Address City/[facility] Co de Phone Number [facility] [place] [address] * (ABNORMAL) Differential, Automated (03/14/2021 12:30 AM EDT) Neutrophil % 82.7 % [facility] Neutrophil Absolute 9.63(H) 1.70 - 6.10 x10(3)/mc L [facility] Lymph % 10.3 % [facility] Lymphocytes Abs 1.2 0.9 - 3.2 x10(3)/mc L [facility] Monocyte % 5.1 % [facility] Monocyte Abs 0.6 0.3 - 0.9 x10(3)/mc L [facility] Eos % 1.2 % [facility] Eosinophils Abs 0.1 0.0 - 0.4 x10(3)/mc L [facility] Basophil % 0.3 % [facility] Baso Absolute 0.0 0.0 - 0.1 x10(3)/mc L [facility] Immature Gran % 0.40 % [facility] Comment: Immature granulocytes(IG's)percentage and absolute count will include metamyelocytes, myelocytes, and promyelocytes. Blood smears from CBCs yielding IG's will be scanned manually for concordance. If this scan disagrees with the automated IG or if promyelocytes are noted, a manual differential will be performed. Immature Gran Absolute 0.05(H) 0.00 - 0.04 x10(3)/mc L [facility] Blood 03/14/2021 12:3 0 AM EDT 03/14/2021 12:39 AM EDT Narrative Resulting Agency Comment Spec In Lab Aimee Milton MD HEMATOLOGY ORDERABLE S [facility] [place] [address] * (ABNORMAL) Hemogram (03/14/2021 12:30 AM EDT) White Blood Cell 11.7(H) 4.0 - 9.5 x10(3)/ L [facility] Red Blood Cell 3.63(L) 4.00 - 5.21 x10(6)/mc L [facility] Hemoglobin 10.2(L) 11.7 - 15.5 gm/dL [facility] Hematocrit 30.9(L) 35.7 - 45.8 % [facility] Mean Cell Volume 85.1 82.6 - 94.4 fL [facility] Mean Cell Hemoglobin 28.1 27.1 - 32.0 pg [facility] Mean Cell Hemoglobin Concentration 33.0 31.7 - 35.0 gm/dL [facility] Platelet 256 145 - 357 x10(3)/mc L [facility] RDW Standard Deviation 43.3 37.0 - 46.0 fL [facility] RDW coefficient of variation 13.9 11.5 - 14.1 % [facility] Mean Platelet Volume 9.8 7.6 - 12.9 fL [facility] NRBC% auto 0.0 % [facility] NRBC Absolute 0.000 0.000 - 0.000 x10(3)/mc L [facility] Blood 03/14/2021 12:3 0 AM EDT 03/14/2021 12:39 AM EDT Narrative Resulting Agency Comment Spec In Lab Aimee Milton MD HEMATOLOGY ORDERABLE S [facility] [place] [address] * Phosphorus (03/14/2021 12:30 AM EDT) Phosphorus 2.5 2.5 - 4.5 mg/dL [facility] Blood 03/14/2021 12:3 0 AM EDT 03/14/2021 12:39 AM EDT Narrative Resulting Agency Comment Spec In Lab Aydee Franklin MD CHEMISTRY ORDERABLES Performing Organization Address City/[facility]/ZIP Co de Phone Number [facility] [place] [address] * Magnesium (03/14/2021 12:30 AM EDT) Magnesium 0.97 0.69 - 1.07 mmol/L [facility] Blood 03/14/2021 12:3 0 AM EDT 03/14/2021 12:39 AM EDT Narrative Resulting Agency Comment Spec In Lab Aydee Franklin MD CHEMISTRY ORDERABLES [facility] [place] [address] * (ABNORMAL) Prealbumin (03/14/2021 12:30 AM EDT) Prealbumin 10(L) 20 - 40 mg/dL [facility] Comment: Prealbumin levels are generally lower in the pediatric population; adult concentrations are usually attained near puberty. Blood 03/14/2021 12:3 0 AM EDT 03/14/2021 12:39 AM EDT Narrative Resulting Agency Comment Spec In Lab Aydee Franklin MD CHEMISTRY ORDERABLES [facility] [place] [address] * (ABNORMAL) Basic Metabolic Panel (non-fasting) (03/14/2021 12:30 AM EDT) Glucose 114 65 - 199 mg/dL [facility] Comment:Diabetes: >=200 mg/d L plus symptoms Blood Urea Nitrogen 7(L) 8 - 18 mg/dL [facility] Creatinine 0.83 0.70 - 1.20 mg/dL [facility] Sodium 142 135 - 145 mmol/L [facility] Potassium 3.7 3.5 - 5.0 mmol/L [facility] Comment: Please note: ??Patients with WBC >100,000 may have falsely elevated Potassium levels. ??For accurate Potassium quantification in these patients send serum separator tube (gold top) for subsequent determinations. ??Contact the Clinical Chemistry Laboratory if there are any questions. Chloride 108(H) 98 - 107 mmol/L [facility] Carbon Dioxide 24 22 - 31 mmol/L [facility] Anion Gap 10 5 - 15 mmol/L [facility] Calcium 7.9(L) 8.5 - 10.5 mg/dL [facility] Est Glomerular Filtration Rate 77 >=60 mL/min/1. 73 m?? [facility] Comment: This patient? s estimated glomerular filtration rate (eGFR) is between 77 mL/min/1.73 m2 (patients with less muscle mass) and 89 mL/min/1.73 m2 (patients with more muscle mass) [...] and symptoms in addition to eGFR. Blood 03/14/2021 12:3 0 AM EDT 03/14/2021 12:39 AM EDT Narrative Resulting Agency Comment Spec In Lab Aydee Franklin MD CHEMISTRY ORDERABLES [facility] [place] [address] * XR Elbow 3 Views Right (GENERIC) (03/13/2021 8:08 PM EDT) Anatomical Region Laterality Modality Elbow Right Digital Radiogra phy Impressions 03/13/2021 8:29 PM EDT Continued healing of periprosthetic fracture. Thank you for letting us participate in the care of this patient. ??If you are a health care provider and have any questions regarding this report, please contact the number below. ??For patients who have questions please contact the health youth care specialist that requested your imaging first. ? Narrative 03/13/2021 8:29 PM EDT EXAMINATION: XR ELBOW 3 VIEWS RIGHT (GENERIC) CLINICAL HISTORY: cast removed, evaluating hardware and for any displacement TECHNIQUE: 3 views RIGHT elbow COMPARISON: 02/06/2021 FINDINGS: Status post fusion at the elbow with plate and screws. A fracture of the proximal ulna adjacent to the most distal screw is redemonstrated. Alignment of this fracture is unchanged. There is progression of intraosseous remodeling and remodeling of the callus. Alignment of the hardware is unchanged. Procedure Note Joaquin Ferro MD - 03/13/2021 EXAMINATION: XR ELBOW 3 VIEWS RIGHT (GENERIC) CLINICAL HISTORY: cast removed, evaluating hardware and for anydisplacement TECHNIQUE: 3 views RIGHT elbow COMPARISON: 02/06/2021 FINDINGS: Status post fusion at the elbow with plate and screws. A fracture of the proximal ulna adjacent to the most distal screw is redemonstrated.Alignment of this fracture is unchanged. There is progression of intraosseousremodeling and remodeling of the callus. Alignment of the hardware is unchanged. IMPRESSION Continued healing of periprosthetic fracture. Thank you for letting us participate in the care of this patient. If youare a health care provider and have any questions regarding this report,please contact the number below. For patients who have questions please contactthe health youth care specialist that requested your imaging first. Aydee Franklin MD IMG DX ORDERABLES * POCT Glucose (03/13/2021 4:46 PM EDT) Glucose, POC 140 65 - 199 mg/dL [facility] Comment: Supplemental ranges: <140 mg/dL before meals <180 mg/dL all other times of the day Blood 03/13/2021 4:46 PM EDT 03/13/2021 4:46 PM EDT Aydee Franklin MD POINT OF CARE TEST O RDERABLES [facility] [place] [address] * POCT Glucose (03/13/2021 3:33 PM EDT) Glucose, POC 141 65 - 199 mg/dL [facility] Comment: Supplemental ranges: <140 mg/dL before meals <180 mg/dL all other times of the day Blood 03/13/2021 3:33 PM EDT 03/13/2021 3:33 PM EDT Aydee Franklin MD POINT OF CARE TEST O RDFLAKITA Performing Organization Address City/[facility]/ZIP Co de Phone Number [facility] [place] [address] * POCT Glucose (03/13/2021 2:31 PM EDT) Glucose, POC 152 65 - 199 mg/dL [facility] Comment: Supplemental ranges: <140 mg/dL before meals <180 mg/dL all other times of the day Blood 03/13/2021 2:31 PM EDT 03/13/2021 2:31 PM EDT Aydee Franklin MD POINT OF CARE TEST O VIKKI Performing Organization Address [facility]/ZIP Co de Phone Number [facility] [place] [address] * POCT Glucose (03/13/2021 1:33 PM EDT) Glucose, POC 174 65 - 199 mg/dL [facility] Comment: Supplemental ranges: <140 mg/dL before meals <180 mg/dL all other times of the day Blood 03/13/2021 1:33 PM EDT 03/13/2021 1:33 PM EDT Aydee Franklin MD POINT OF CARE TEST O RDERAMISBAH Performing Organization Address City/[facility]/ZIP Co de Phone Number [facility] [place] [address] * (ABNORMAL) POCT Glucose (03/13/2021 12:38 PM EDT) Glucose, POC 201(H) 65 - 199 mg/dL [facility] Comment: Supplemental ranges: <140 mg/dL before meals <180 mg/dL all other times of the day Blood 03/13/2021 12:3 8 PM EDT 03/13/2021 12:38 PM EDT Aydee Franklin MD POINT OF CARE TEST O RDERAMISBAH Performing Organization Address [facility] Co de Phone Number [facility] [place] [address] * POCT Glucose (03/13/2021 11:09 AM EDT) Glucose, POC 183 65 - 199 mg/dL [facility] Comment: Supplemental ranges: <140 mg/dL before meals <180 mg/dL all other times of the day Blood 03/13/2021 11:0 9 AM EDT 03/13/2021 11:09 AM EDT Aydee Franklin MD POINT OF CARE TEST O VIKKI Performing Organization Address [facility] Co de Phone Number [facility] [place] [address] * POCT Glucose (03/13/2021 7:31 AM EDT) Glucose, POC 175 65 - 199 mg/dL [facility] Comment: Supplemental ranges: <140 mg/dL before meals <180 mg/dL all other times of the day Blood 03/13/2021 7:31 AM EDT 03/13/2021 7:31 AM EDT Aydee Franklin MD POINT OF CARE TEST O RDERAMISBAH Performing Organization Address [facility] Co de Phone Number [facility] [place] [address] * SCAN DOC: IMPLANTABLE DEVICES (03/13/2021 12:00 AM EDT) Unknown MEDIA MGR SCAN EXT O RDR/RSLT documented in this encounter Visit Diagnoses Diagnosis Closed fracture of left ankle with routine healing Ankle abscess Cellulitis and abscess of leg, except foot Wound infection complicating hardware, sequela Ankle wound, left, sequela Ankle wound, left, sequela documented in this encounter Admitting Diagnoses Diagnosis Ankle wound, left, sequela documented in this encounter Administered Medications Inactive Administered Medications - up to 3 most recent administrations Medication Order MAR Action Action Date Dose Rate Site acetaminophen (Tylenol) tablet 1,000 mg 1,000 mg, Oral, EVERY 8 HOURS SCHEDULED, First dose on Tue03/13/21 at 1730, Until Discontinued, Maximum dose of acetaminophen is 4000 mg from all sources in 24 hours. When ordered for pain, acetaminophen should be given even when other ordered pain medications are indicated., Routine Given 03/17/2021 8:58 AM EDT 1,000 mg Given 03/16/2021 4:01 PM EDT 1,000 mg Given 03/16/2021 8:28 AM EDT 1,000 mg aspirin chewable tablet 81 mg 81 mg, Oral, DAILY, First dose on Tue03/17/21 at 0900, Until Discontinued, Routine Given 03/17/2021 8:59 AM EDT 81 mg buPROPion XL (Wellbutrin XL) tablet 150 mg 150 mg, Oral, EVERY MORNING, First dose on Tue03/14/21 at 0900, Until Discontinued, DO NOT CRUSH OR OPEN, Routine Given 03/17/2021 8:58 AM EDT 150 mg Given 03/16/2021 8:28 AM EDT 150 mg Given 03/15/2021 8:23 AM EDT 150 mg ceFAZolin (Ancef) 2 g in dextrose 5% 100 mL infusion 2 g, Intravenous, EVERY 8 HOURS, First dose on Tue03/13/21 at 0815, Until Discontinued, Administer over 30 Minutes, Indication for (Active or Suspected): Prophylaxis New Bag 03/16/2021 8:45 AM EDT 2 g 200 mL/ hr New Bag 03/15/2021 11:39 PM EDT 2 g 200 mL/hr New Bag 03/15/2021 3:47 PM EDT 2 g 200 mL/hr DAPTOmycin (Cubicin) 700 mg in sodium chloride 0.9% 64 mL 700 mg, Intravenous, at 128 mL/hr, EVERY 24 HOURS, First dose on Tue03/14/21 at 0900, Until Discontinued, Routine, Indication for (Active or Suspected): Bone/Joint, Restricted Antibiotic: Please indicate the most appropriate choice: ID Approval by Delfina Harris New Bag 03/17/2021 8:59 AM EDT 700 mg 128 mL/hr New Bag 03/16/2021 8:29 AM EDT 700 mg 128 mL/hr New Bag 03/15/2021 9:59 AM EDT 700 mg 128 mL/hr dextrose 10% infusion 250 mL, at 1,000 mL/hr, Intravenous, EVERY 30 MIN PRN, Starting on Tue03/13/21 at 1655, Until Tue03/17/21 at 1857, For BG 50-70 mg/dL: Oral treatment preferred:?? If able to drink, give 120 mL Juice or Regular (not diet) soda OR If NPO, give 15 gram glucose 40% oral gel massaged into buccal mucosa OR if unconscious or uncooperative, give 25 gram (250 mL) Dextrose 10% IV over 15 minutes per protocol OR, if no IV access, 1 mg Glucagon IM. For BG less than 50 mg/dL: Oral treatment preferred:?? If able to drink, give 240 mL Juice or Regular (not diet) soda OR If NPO, give 30 gram glucose 40% oral gel massaged in buccal mucosa OR if unconscious or uncooperative, give 25 gram (250 mL) Dextrose 10% IV over 15 minutes per protocol OR, if no IV access, 1 mg Glucagon IM. Recheck BG in 30 minutes. May repeat juice/soda, gel, dextrose or glucagon once per episode. For persistent hypoglycemia, consider longer-acting treatment for the duration of the active insulin. enoxaparin (Lovenox) (40 mg/0.4 mL) subcutaneous injection 40 mg 40 mg, Subcutaneous, NIGHTLY, First dose on Tue03/13/21 at 2100, Until Discontinued, Routine Given 03/16/2021 8:07 PM EDT 40 mg Given 03/15/2021 8:45 PM EDT 40 mg Given 03/14/2021 8:33 PM EDT 40 mg fentaNYL (pf) (50 mcg/mL) multi-dose injection 25-50 mcg 25-50 mcg, Intravenous, EVERY 3 MIN PRN, Starting on Tue03/16/21 at 1354, Until Tue03/16/21 at 1548, Pain, per unit protocol, - Start dose 50 mcg (reduce dose to 25 mcg if history of sedation sensitivity). - Titration dose 25-50 mcg IV, (based on patient response) every 3 minutes PRN, to maintain procedural pain less than 2 per pain Scale. Maximum dose: 50 mcg/dose, 250 mcg/hour For use in Interventional Radiology (IR) only for procedural sedation with direct provider supervision and verbal order., Angio/IR (Intra-Procedure), Routine Given 03/16/2021 2:57 PM EDT 25 mcg Given 03/16/2021 2:50 PM EDT 25 mcg Given 03/16/2021 2:39 PM EDT 25 mcg gabapentin (Neurontin) capsule 300 mg 300 mg, Oral, 3 TIMES DAILY, First dose on Tue03/14/21 at 0900, Until Discontinued, Routine Given 03/17/2021 8:58 AM EDT 300 mg Given 03/16/2021 8:07 PM EDT 300 mg Given 03/16/2021 3:50 PM EDT 300 mg insulin lispro (HumaLOG;Admelog) (100 unit/mL) subcutaneous injection vial 1-6 Units 1-6 Units, Subcutaneous, EVERY 4 HOURS SCHEDULED, First dose on Tue03/13/21 at 2000, Until Discontinued, CORRECTION BOLUS [1-6 Units] Moderate Sliding Scale (BG in mg/dL): Correction factor 20 (1 unit of insulin is expected to drop the glucose 20 mg/dL) BG 140 - 160 Give 1 unit BG 161 - 180 Give 2 units BG 181 - 200 Give 3 units BG 201 - 220 Give 4 units BG 221 - 240 Give 5 units BG greater than 240, give 6 units and recheck BG in 2 hours. - If recheck BG is LESS than 240, give no insulin and resume schedule. - If recheck BG is GREATER than 240, give 6 units and repeat BG in 2 hours (no more than 3 times) & call for new insulin orders. DO NOT hold if NPO, unless specifically directed to do so by written order. Per Blood Glucose Monitoring Policy, re-check a BG of > 240 mg/dL in 2 hours., Routine Given 03/17/2021 12:28 PM EDT 3 Units Given 03/17/2021 9:02 AM EDT 6 Units Given 03/17/2021 4:16 AM EDT 2 Units levothyroxine (Synthroid) tablet 50 mcg 50 mcg, Oral, EVERY MORNING, First dose on 03/14/21 at 0600, Until Discontinued, Routine Given 03/17/2021 5:18 AM EDT 50 mcg Given 03/16/2021 6:23 AM EDT 50 mcg Given 03/15/2021 5:23 AM EDT 50 mcg lidocaine (Xylocaine) 1% (10 mg/mL) injection 3 mg 3 mg (0.3 mL), Subcutaneous, ONCE PRN, 1 dose, Starting on Tue03/16/21 at 1354, Until Tue03/17/21 at 1857, for discomfort with PIV insertion, Routine losartan (Cozaar) tablet 25 mg 25 mg, Oral, DAILY, First dose on 03/14/21 at 0900, Until Discontinued, Routine Given 03/17/2021 8:58 AM EDT 25 mg Given 03/16/2021 8:27 AM EDT 25 mg Given 03/15/2021 8:23 AM EDT 25 mg magnesium sulfate 2 g in sterile water 50 mL infusion 2 g, Intravenous, ONCE, 1 dose, On 03/15/21 at 0215, Administer over 120 Minutes New Bag 03/15/2021 1:55 AM EDT 2 g 25 mL/hr midazolam (pf) (Versed) (1 mg/mL) multi-dose injection 0.5-1 mg 0.5-1 mg, Intravenous, EVERY 3 MIN PRN, Starting on Tue03/16/21 at 1410, Until Tue03/16/21 at 1548, Sleep, - Start dose; 1 mg (Reduce dose to 0.5 mg if history of sedation sensitivity). - Titration dose: 0.5 mg - 1 mg (based on patient response) every 3 minutes PRN to obtain RASS score of -3. Maximum dose: 1 mg per dose, 5 mg/hour. For use in Interventional Radiology (IR) only for procedural sedation with direct provider supervision and verbal order., Angio/IR (Intra-Procedure), Routine Given 03/16/2021 2:57 PM EDT 0.5 mg Given 03/16/2021 2:50 PM EDT 0.5 mg Given 03/16/2021 2:39 PM EDT 0.5 mg oxyCODONE (Roxicodone) tablet 5 mg 5 mg, Oral, EVERY 4 HOURS PRN, Starting on Tue03/13/21 at 1638, Until Tue03/17/21 at 1857, Pain, For pain 4-10, Routine Given 03/14/2021 6:32 PM EDT 5 mg Given 03/14/2021 6:01 AM EDT 5 mg Given 03/14/2021 12:42 AM EDT 5 mg pantoprazole EC (Protonix) tablet 40 mg 40 mg, Oral, DAILY, First dose on 03/14/21 at 0900, Until Discontinued, DO NOT CRUSH OR OPEN, Routine Given 03/17/2021 8:59 AM EDT 40 mg Given 03/16/2021 8:28 AM EDT 40 mg Given 03/15/2021 8:23 AM EDT 40 mg polyethylene glycoL (Miralax) packet 17 g 17 g, Oral, DAILY, First dose on 03/14/21 at 0900, Until Discontinued, Routine Given 03/16/2021 8:27 AM EDT 17 g Given 03/15/2021 8:23 AM EDT 17 g Given 03/14/2021 10:24 AM EDT 17 g senna-docusate (Pericolace) 8.6-50 mg per tablet 2 tablet 2 tablet, Oral, 2 TIMES DAILY, First dose on 03/14/21 at 0015, Until Discontinued, Routine Given 03/16/2021 8:07 PM EDT 2 tablets Given 03/16/2021 8:27 AM EDT 2 tablets Given 03/15/2021 8:23 AM EDT 2 tablets sertraline (Zoloft) tablet 200 mg 200 mg, Oral, DAILY, First dose on 03/14/21 at 0900, Until Discontinued, Routine Given 03/17/2021 8:58 AM EDT 200 mg Given 03/16/2021 8:27 AM EDT 200 mg Given 03/15/2021 8:23 AM EDT 200 mg sodium chloride 0.9 % (flush) (BD PosiFlush Normal Saline 0.9) flush 5 mL 5 mL, Intravenous, 2 TIMES DAILY, First dose on Tue03/13/21 at 2100, Until Discontinued, Recovery (Recovery-Hospital Unit), Routine Given 03/16/2021 9:26 AM EDT 5 mLs Given 03/15/2021 10:02 AM EDT 5 mLs Given 03/14/2021 8:35 PM EDT 5 mLs sodium chloride 0.9 % (flush) (BD PosiFlush Normal Saline 0.9) flush 5 mL 5 mL, Intravenous, 2 TIMES DAILY, First dose on 03/14/21 at 0015, Until Discontinued, Recovery (Recovery-Hospital Unit), Routine Given 03/16/2021 8:06 PM EDT 5 mLs Given 03/16/2021 9:26 AM EDT 5 mLs Given 03/15/2021 8:46 PM EDT 5 mLs sodium chloride 0.9 % (flush) (BD PosiFlush Normal Saline 0.9) flush 5 mL 5 mL, Intravenous, 2 TIMES DAILY, First dose on Tue03/16/21 at 1445, Until Discontinued, Routine Given 03/16/2021 8:06 PM EDT 5 mLs Given 03/16/2021 2:45 PM EDT 5 mLs sodium chloride 0.9 % (flush) (BD PosiFlush Normal Saline 0.9) flush 5-20 mL 5-20 mL, Intravenous, EVERY 1 MIN PRN, Starting on Tue03/13/21 at 2329, Until Tue03/17/21 at 1857, flush, Flush pertains to all indwelling lines. Flush per protocol found in the job aid using the link provided on this medication record., Recovery (Recovery-Hospital Unit), Routine sodium chloride 0.9 % (flush) (BD PosiFlush Normal Saline 0.9) flush 5-20 mL 5-20 mL, Intravenous, EVERY 1 MIN PRN, Starting on Tue03/16/21 at 1354, Until Tue03/17/21 at 1857, flush, Flush pertains to all indwelling lines. Flush per protocol found in the job aid using the link provided on this medication record., Routine sodium chloride 0.9% infusion 1,000 mL, at 100 mL/hr, Intravenous, CONTINUOUS, Starting on Tue03/13/21 at 1730, Until Tue03/14/21 at 0853, Recovery (Recovery-Hospital Unit) New Bag 03/13/2021 5:20 PM EDT 1,000 mLs 100 mL/hr topiramate (Topamax) tablet 100 mg 100 mg, Oral, 2 TIMES DAILY, First dose (after last reorder) on Tue03/14/21 at 1000, Until Discontinued, DO NOT SPLIT, CRUSH OR OPEN, Routine Given 03/17/2021 8:59 AM EDT 100 mg Given 03/16/2021 8:07 PM EDT 100 mg Given 03/16/2021 8:28 AM EDT 100 mg documented in this encounter Active and Recently Administered Medications Times are shown in EDT. Scheduled Medication Order 03/15/2021 03/16/2021 03/17/2021 acetaminophen (Tylenol) tablet 1,000 mg 1,000 mg, Oral, EVERY 8 HOURS SCHEDULED, First dose on Tue03/13/21 at 1730, Until Discontinued, Maximum dose of acetaminophen is 4000 mg from all sources in 24 hours. When ordered for pain, acetaminophen should be given even when other ordered pain medications are indicated., Routine 0522 (Given - Provider: Nupur Greenwood RN)1547 (Given - Provider: Sangeeta Jackson RN)2339 (Given - Provider: Tiffani Montoya RN) 0828 (Given - Provider: Davy Altman RN)1601 (Given - Provider: Davy Altman RN) 0000 (Not Given - Provider: Evelyn Torre RN - Reason: Patient/family refused)0858 (Given - Provider: Urmila Hernández RN)1600 (Due - Provider: David Mann [facility]) aspirin chewable tablet 81 mg 81 mg, Oral, DAILY, First dose on Tue03/17/21 at 0900, Until Discontinued, Routine 0859 (Given - Provider: Urmila Hernández RN) buPROPion XL (Wellbutrin XL) tablet 150 mg 150 mg, Oral, EVERY MORNING, First dose on Tue03/14/21 at 0900, Until Discontinued, DO NOT CRUSH OR OPEN, Routine 0823 (Given - Provider: Sangeeta Jackson RN) 0828 (Given - Provider: Davy Altman RN) 0858 (Given - Provider: Urmila Hernández RN) ceFAZolin (Ancef) 2 g in dextrose 5% 100 mL infusion (CANCELED) 2 g, Intravenous, EVERY 8 HOURS, First dose on Tue03/13/21 at 0815, Until Discontinued, Administer over 30 Minutes, Indication for (Active or Suspected): Prophylaxis 0013 (New Bag - Provider: Nupur Greenwood RN)0043 (Stopped - Provider: Nupur Greenwood RN)0823 (New Bag - Provider: Sangeeta Jackson RN)0853 (Stopped - Provider: Sangeeta Jackson RN)1547 (New Bag - Provider: Sangeeta Jackson RN)1617 (Stopped - Provider: Sangeeta Jackson RN)2339 (New Bag - Provider: Tiffani Montoya RN) 0009 (Stopped - Provider: Tiffani Montoya RN)0845 (New Bag - Provider: Davy Altman RN)0915 (Stopped - Provider: Davy Altman RN) DAPTOmycin (Cubicin) 700 mg in sodium chloride 0.9% 64 mL 700 mg, Intravenous, at 128 mL/hr, EVERY 24 HOURS, First dose on Tue03/14/21 at 0900, Until Discontinued, Routine, Indication for (Active or Suspected): Bone/Joint, Restricted Antibiotic: Please indicate the most appropriate choice: ID Approval by Delfina Harris 0959 (New Bag - Provider: Sangeeta Jackson RN)1029 (Stopped - Provider: Sangeeta Jackson RN) 0829 (New Bag - Provider: Davy Altman RN)0859 (Stopped - Provider: Davy Altman RN) 0859 (New Bag - Provider: Urmila Hernández, SUNIL)0929 (Stopped - Provider: Urmila Hernández, SUNIL) enoxaparin (Lovenox) (40 mg/0.4 mL) subcutaneous injection 40 mg 40 mg, Subcutaneous, NIGHTLY, First dose on Tue03/13/21 at 2100, Until Discontinued, Routine 2044 (Given - Provider: Tiffani Montoya RN) 2006 (Given - Provider: Evelyn Torre RN) gabapentin (Neurontin) capsule 300 mg 300 mg, Oral, 3 TIMES DAILY, First dose on Tue03/14/21 at 0900, Until Discontinued, Routine 0823 (Given - Provider: Sangeeta Jackson RN)1547 (Given - Provider: Sangeeta Jackson RN)204 (Given - Provider: Tiffani Montoya RN) 0827 (Given - Provider: Davy Altman RN)1550 (Given - Provider: Davy Altman RN)2006 (Given - Provider: Evelyn Torre RN) 0858 (Given - Provider: Urmila Hernández RN)1500 (Due) insulin lispro (HumaLOG;Admelog) (100 unit/mL) subcutaneous injection vial 1-6 Units(Linked Group 1) 1-6 Units, Subcutaneous, EVERY 4 HOURS SCHEDULED, First dose on Tue03/13/21 at 2000, Until Discontinued, CORRECTION BOLUS [1-6 Units] Moderate Sliding Scale (BG in mg/dL): Correction factor 20 (1 unit of insulin is expected to drop the glucose 20 mg/dL) BG 140 - 160 Give 1 unit BG 161 - 180 Give 2 units BG 181 - 200 Give 3 units BG 201 - 220 Give 4 units BG 221 - 240 Give 5 units BG greater than 240, give 6 units and recheck BG in 2 hours. - If recheck BG is LESS than 240, give no insulin and resume schedule. - If recheck BG is GREATER than 240, give 6 units and repeat BG in 2 hours (no more than 3 times) & call for new insulin orders. DO NOT hold if NPO, unless specifically directed to do so by written order. Per Blood Glucose Monitoring Policy, re-check a BG of > 240 mg/dL in 2 hours., Routine 0000 (Not Given - Provider: Nupur Greenwood RN - Reason: Order parameters not met)0417 (Given - Provider: Nupur Greenwood RN)0800 (Not Given - Provider: Sangeeta Jackson RN - Reason: Order parameters not met)1251 (Given - Provider: Sangeeta Jackson RN)1538 (Given - Provider: Sangeeta Jackson RN)2051 (Given - Provider: Tiffani Montoya RN) 0000 (Not Given - Provider: Tiffani Montoya RN - Reason: Order parameters not met)0400 (Not Given - Provider: Tiffani Montoya RN - Reason: Order parameters not met)0829 (Given - Provider: Davy Altman RN)1146 (Given - Provider: Davy Altman RN)1600 (Not Given - Provider: Davy Altman RN - Reason: Order parameters not met)2004 (Given - Provider: Evelyn Torre RN)2303 (Given - Provider: Evelyn Torre RN) 0416 (Given - Provider: Evelyn Torre RN)0902 (Given - Provider: Urmila Hernández RN)1228 (Given - Provider: Urmila Hernández RN)1600 (Due) levothyroxine (Synthroid) tablet 50 mcg 50 mcg, Oral, EVERY MORNING, First dose on 03/14/21 at 0600, Until Discontinued, Routine 0523 (Given - Provider: Nupur Greenwood RN) 0623 (Given - Provider: Tiffani Montoya RN) 0518 (Given - Provider: Evelyn Torre RN) losartan (Cozaar) tablet 25 mg 25 mg, Oral, DAILY, First dose on 03/14/21 at 0900, Until Discontinued, Routine 0823 (Given - Provider: Sangeeta Jackson RN) 0827 (Given - Provider: Davy Altman RN) 0858 (Given - Provider: Urmila Hernández, SUNIL) magnesium sulfate 2 g in sterile water 50 mL infusion (COMPLETED) 2 g, Intravenous, ONCE, 1 dose, On 03/15/21 at 0215, Administer over 120 Minutes 0155 (New Bag - Provider: Nupur Greenwood RN)0355 (Stopped - Provider: Nupur Greenwood RN) pantoprazole EC (Protonix) tablet 40 mg 40 mg, Oral, DAILY, First dose on 03/14/21 at 0900, Until Discontinued, DO NOT CRUSH OR OPEN, Routine 0823 (Given - Provider: Sangeeta Jackson RN) 0828 (Given - Provider: Davy Altman RN) 0859 (Given - Provider: Urmila Hernández, SUNIL) polyethylene glycoL (Miralax) packet 17 g 17 g, Oral, DAILY, First dose on 03/14/21 at 0900, Until Discontinued, Routine 0823 (Given - Provider: Sangeeta Jackson RN) 0827 (Given - Provider: Davy Altman RN) 0900 (Not Given - Provider: Urmila Hernández RN - Reason: Patient/family refused) senna-docusate (Pericolace) 8.6-50 mg per tablet 2 tablet 2 tablet, Oral, 2 TIMES DAILY, First dose on 03/14/21 at 0015, Until Discontinued, Routine 0823 (Given - Provider: Sangeeta Jackson RN)2043 (Not Given - Provider: Tiffani Montoya RN - Reason: Patient/family refused) 08 (Given - Provider: Davy Altman RN)2006 (Given - Provider: Evelyn Torre RN) 0858 (Not Given - Provider: Urmila Hernández RN - Reason: Patient/family refused) sertraline (Zoloft) tablet 200 mg 200 mg, Oral, DAILY, First dose on 03/14/21 at 0900, Until Discontinued, Routine 0823 (Given - Provider: Sangeeta Jackson RN) 08 (Given - Provider: Davy Altman RN) 0858 (Given - Provider: Urmila Hernández RN) sodium chloride 0.9 % (flush) (BD PosiFlush Normal Saline 0.9) flush 5 mL 5 mL, Intravenous, 2 TIMES DAILY, First dose on Tue03/13/21 at 2100, Until Discontinued, Recovery (Recovery-Hospital Unit), Routine 1002 (Given - Provider: Sangeeta Jackson RN)2099 (Not Given - Provider: Tiffani Montoya RN - Reason: Patient/family refused) 0926 (Given - Provider: Davy Altman RN)2100 (Not Given - Provider: Evelyn Torre RN - Reason: See comment - Comment: duplicated order) 0900 (Not Given - Provider: Urmila Hernández RN - Reason: Medication not available) sodium chloride 0.9 % (flush) (BD PosiFlush Normal Saline 0.9) flush 5 mL 5 mL, Intravenous, 2 TIMES DAILY, First dose on 03/14/21 at 0015, Until Discontinued, Recovery (Recovery-Hospital Unit), Routine 1003 (Given - Provider: Sangeeta Jackson RN)2045 (Given - Provider: Tiffani Montoya RN) 925 (Given - Provider: Davy Altman RN)2005 (Given - Provider: Evelyn Torre RN) 0900 (Not Given - Provider: Urmila Hernández, RN - Reason: Medication not available) sodium chloride 0.9 % (flush) (BD PosiFlush Normal Saline 0.9) flush 5 mL 5 mL, Intravenous, 2 TIMES DAILY, First dose on Tue03/16/21 at 1445, Until Discontinued, Routine 1445 (Given - Provider: Davy Altman RN)2005 (Given - Provider: Evelyn Torre RN) 09 (Not Given - Provider: Urmila Hernández, SUNIL - Reason: Medication not available) topiramate (Topamax) tablet 100 mg 100 mg, Oral, 2 TIMES DAILY, First dose (after last reorder) on Tue03/14/21 at 1000, Until Discontinued, DO NOT SPLIT, CRUSH OR OPEN, Routine 0824 (Given - Provider: Sangeeta Jackson RN)2043 (Given - Provider: Tiffani Montoya RN) 827 (Given - Provider: Davy Altman RN)2006 (Given - Provider: Evelyn Torre RN) 0859 (Given - Provider: Urmila Hernández, SUNIL) PRN Medication Order 03/15/2021 03/16/2021 03/17/2021 bisacodyL (Dulcolax) suppository 10 mg 10 mg, Rectal, DAILY PRN, Starting on Tue03/13/21 at 1638, Until Tue03/17/21 at 1857, Constipation, Administer if needed per patient's routine or if no bowel movement within 48 hours to achieve: (1) One bowel movement at least every 48 hours, AND (2) Without straining. - If multiple PRN bowel medications ordered, start with magnesium hydroxide, then bisacodyl. - Multiple medications may be given concomitantly for constipation., Routine cyclobenzaprine (Flexeril) tablet 5 mg 5 mg, Oral, 3 TIMES DAILY PRN, Starting on Tue03/13/21 at 2329, Until Tue03/17/21 at 1857, Muscle spasms, Routine dextrose 10% infusion(Linked Group 2) 250 mL, at 1,000 mL/hr, Intravenous, EVERY 30 MIN PRN, Starting on Tue03/13/21 at 1655, Until Tue03/17/21 at 1857, For BG 50-70 mg/dL: Oral treatment preferred:?? If able to drink, give 120 mL Juice or Regular (not diet) soda OR If NPO, give 15 gram glucose 40% oral gel massaged into buccal mucosa OR if unconscious or uncooperative, give 25 gram (250 mL) Dextrose 10% IV over 15 minutes per protocol OR, if no IV access, 1 mg Glucagon IM. For BG less than 50 mg/dL: Oral treatment preferred:?? If able to drink, give 240 mL Juice or Regular (not diet) soda OR If NPO, give 30 gram glucose 40% oral gel massaged in buccal mucosa OR if unconscious or uncooperative, give 25 gram (250 mL) Dextrose 10% IV over 15 minutes per protocol OR, if no IV access, 1 mg Glucagon IM. Recheck BG in 30 minutes. May repeat juice/soda, gel, dextrose or glucagon once per episode. For persistent hypoglycemia, consider longer-acting treatment for the duration of the active insulin. fentaNYL (pf) (50 mcg/mL) multi-dose injection 25-50 mcg (CANCELED) 25-50 mcg, Intravenous, EVERY 3 MIN PRN, Starting on Tue03/16/21 at 1354, Until Tue03/16/21 at 1548, Pain, per unit protocol, - Start dose 50 mcg (reduce dose to 25 mcg if history of sedation sensitivity). - Titration dose 25-50 mcg IV, (based on patient response) every 3 minutes PRN, to maintain procedural pain less than 2 per pain Scale. Maximum dose: 50 mcg/dose, 250 mcg/hour For use in Interventional Radiology (IR) only for procedural sedation with direct provider supervision and verbal order., Angio/IR (Intra-Procedure), Routine 1429 (Given - Provider: Ramon Benítez RN)1436 (Given - Provider: Ramon Benítez RN)1439 (Given - Provider: Ramon Benítez RN)1450 (Given - Provider: Ramon Benítez RN)1457 (Given - Provider: Ramon Benítez RN) lidocaine (Xylocaine) 1% (10 mg/mL) injection 3 mg 3 mg (0.3 mL), Subcutaneous, ONCE PRN, 1 dose, Starting on Tue03/13/21 at 1638, Until Tue03/17/21 at 1857, for discomfort with PIV insertion, Recovery (Recovery-Hospital Unit), Routine lidocaine (Xylocaine) 1% (10 mg/mL) injection 3 mg 3 mg (0.3 mL), Subcutaneous, ONCE PRN, 1 dose, Starting on Tue03/16/21 at 1354, Until Tue03/17/21 at 1857, for discomfort with PIV insertion, Routine midazolam (pf) (Versed) (1 mg/mL) multi-dose injection 0.5-1 mg (CANCELED) 0.5-1 mg, Intravenous, EVERY 3 MIN PRN, Starting on Tue03/16/21 at 1410, Until Tue03/16/21 at 1548, Sleep, - Start dose; 1 mg (Reduce dose to 0.5 mg if history of sedation sensitivity). - Titration dose: 0.5 mg - 1 mg (based on patient response) every 3 minutes PRN to obtain RASS score of -3. Maximum dose: 1 mg per dose, 5 mg/hour. For use in Interventional Radiology (IR) only for procedural sedation with direct provider supervision and verbal order., Angio/IR (Intra-Procedure), Routine 1429 (Given - Provider: Ramon Benítez RN)1436 (Given - Provider: Ramon Benítez RN)1439 (Given - Provider: Ramon Benítez RN)1450 (Given - Provider: Ramon Benítez RN)1457 (Given - Provider: Ramon Benítez, SUNIL) ondansetron (pf) (Zofran) (2 mg/mL) injection 4 mg 4 mg, Intravenous, EVERY 8 HOURS PRN, Starting on Tue03/13/21 at 1638, Until Tue03/17/21 at 1857, Nausea, 4 mg, Oral, EVERY 8 HOURS PRN, Nausea, Vomiting If multiple antiemetics are ordered, use ondansetron first. May repeat once in 30 minutes if symptoms unrelieved. oxyCODONE (Roxicodone) tablet 5 mg 5 mg, Oral, EVERY 4 HOURS PRN, Starting on Tue03/13/21 at 1638, Until Tue03/17/21 at 1857, Pain, For pain 4-10, Routine sodium chloride 0.9 % (flush) (BD PosiFlush Normal Saline 0.9) flush 5-20 mL 5-20 mL, Intravenous, EVERY 1 MIN PRN, Starting on Tue03/13/21 at 1638, Until Tue03/17/21 at 1857, flush, Flush pertains to all indwelling lines. Flush per protocol found in the job aid using the link provided on this medication record., Recovery (Recovery-Hospital Unit), Routine sodium chloride 0.9 % (flush) (BD PosiFlush Normal Saline 0.9) flush 5-20 mL 5-20 mL, Intravenous, EVERY 1 MIN PRN, Starting on Tue03/13/21 at 2329, Until Tue03/17/21 at 1857, flush, Flush pertains to all indwelling lines. Flush per protocol found in the job aid using the link provided on this medication record., Recovery (Recovery-Hospital Unit), Routine sodium chloride 0.9 % (flush) (BD PosiFlush Normal Saline 0.9) flush 5-20 mL 5-20 mL, Intravenous, EVERY 1 MIN PRN, Starting on Tue03/16/21 at 1354, Until Tue03/17/21 at 1857, flush, Flush pertains to all indwelling lines. Flush per protocol found in the job aid using the link provided on this medication record., Routine Linked Groups Order Group 1: POCT Fingerstick Glucose (CANCELED) Routine, EVERY 4 HOURS, First occurrence on Tue03/13/21 at 1710, Until Specified, Consider choosing EVERY 4 HOURS as frequency for: - Type 1 Diabetes - At least 24 hours after coming off an insulin drip - At least 24 hours after admission for DKA - Hypoglycemia unawareness - Patients who are otherwise unstable Select the same frequency for the correction bolus insulin order And insulin lispro (HumaLOG;Admelog) (100 unit/mL) subcutaneous injection vial 1-6 UnitsJump to med 1-6 Units, Subcutaneous, EVERY 4 HOURS SCHEDULED, First dose on Tue03/13/21 at 2000, Until Discontinued, CORRECTION BOLUS [1-6 Units] Moderate Sliding Scale (BG in mg/dL): Correction factor 20 (1 unit of insulin is expected to drop the glucose 20 mg/dL) BG 140 - 160 Give 1 unit BG 161 - 180 Give 2 units BG 181 - 200 Give 3 units BG 201 - 220 Give 4 units BG 221 - 240 Give 5 units BG greater than 240, give 6 units and recheck BG in 2 hours. - If recheck BG is LESS than 240, give no insulin and resume schedule. - If recheck BG is GREATER than 240, give 6 units and repeat BG in 2 hours (no more than 3 times) & call for new insulin orders. DO NOT hold if NPO, unless specifically directed to do so by written order. Per Blood Glucose Monitoring Policy, re-check a BG of > 240 mg/dL in 2 hours., Routine Group 2: glucose (GLUTOSE) 40% oral geL (CANCELED) 15-30 g, Buccal, EVERY 30 MIN PRN, Starting on Tue03/13/21 at 1655, Until Tue03/13/21 at 1708, Low blood sugar, For BG 50-70 mg/dL: Oral treatment preferred:?? If able to drink, give 120 mL Juice or Regular (not diet) soda OR If NPO, give 15 gram glucose 40% oral gel massaged into buccal mucosa OR if unconscious or uncooperative, give 25 gram (250 mL) Dextrose 10% IV over 15 minutes per protocol OR, if no IV access, 1 mg Glucagon IM. For BG less than 50 mg/dL: Oral treatment preferred:?? If able to drink, give 240 mL Juice or Regular (not diet) soda OR If NPO, give 30 gram glucose 40% oral gel massaged in buccal mucosa OR if unconscious or uncooperative, give 25 gram (250 mL) Dextrose 10% IV over 15 minutes per protocol OR, if no IV access, 1 mg Glucagon IM. Recheck BG in 30 minutes. May repeat juice/soda, gel, dextrose or glucagon once per episode. For persistent hypoglycemia, consider longer-acting treatment for the duration of the active insulin. 1 tube contains 15 grams of glucose (net weight of tube = 37.5 grams., Routine Or dextrose 10% infusionJump to med 250 mL, at 1,000 mL/hr, Intravenous, EVERY 30 MIN PRN, Starting on Tue03/13/21 at 1655, Until Tue03/17/21 at 1857, For BG 50-70 mg/dL: Oral treatment preferred:?? If able to drink, give 120 mL Juice or Regular (not diet) soda OR If NPO, give 15 gram glucose 40% oral gel massaged into buccal mucosa OR if unconscious or uncooperative, give 25 gram (250 mL) Dextrose 10% IV over 15 minutes per protocol OR, if no IV access, 1 mg Glucagon IM. For BG less than 50 mg/dL: Oral treatment preferred:?? If able to drink, give 240 mL Juice or Regular (not diet) soda OR If NPO, give 30 gram glucose 40% oral gel massaged in buccal mucosa OR if unconscious or uncooperative, give 25 gram (250 mL) Dextrose 10% IV over 15 minutes per protocol OR, if no IV access, 1 mg Glucagon IM. Recheck BG in 30 minutes. May repeat juice/soda, gel, dextrose or glucagon once per episode. For persistent hypoglycemia, consider longer-acting treatment for the duration of the active insulin. Or glucagon (Glucagen) (1 mg/mL) injection solution 1 mg (CANCELED) 1 mg, Intramuscular, EVERY 30 MIN PRN, Starting on Tue03/13/21 at 1655, Until Tue03/13/21 at 1708, Low blood sugar, For BG 50-70 mg/dL: Oral treatment preferred:?? If able to drink, give 120 mL Juice or Regular (not diet) soda OR If NPO, give 15 gram glucose 40% oral gel massaged into buccal mucosa OR if unconscious or uncooperative, give 25 gram (250 mL) Dextrose 10% IV over 15 minutes per protocol OR, if no IV access, 1 mg Glucagon IM. For BG less than 50 mg/dL: Oral treatment preferred:?? If able to drink, give 240 mL Juice or Regular (not diet) soda OR If NPO, give 30 gram glucose 40% oral gel massaged in buccal mucosa OR if unconscious or uncooperative, give 25 gram (250 mL) Dextrose 10% IV over 15 minutes per protocol OR, if no IV access, 1 mg Glucagon IM. Recheck BG in 30 minutes. May repeat juice/soda, gel, dextrose or glucagon once per episode. For persistent hypoglycemia, consider longer-acting treatment for the duration of the active insulin., Routine documented in this encounter Care Teams Director Call Relationship Specialty Start Date End Date Maryuri Evans MD [address] [place] [address] PCP - General 09/23/14 documented as of this encounter
--- OUTSIDE RECORDS SUMMARY | 2024-05-31 17:43 | XMS_ITS | Encounter Summary ---
Author Organization [facility] Address [facility] [place] [address] Care Team Providers Care Livestock [employer] Inspector Name Role Phone Maryuri Evans MD Primary Care Provider [phone] Reason for Visit * Reason Comments Follow-up XR//Rt Closed displa amada transverse fracture of shaft of ulna Encounter Details Date Type Department Care Team (Late st Contact Info) Description 03/20/2021 2:20 PM EDT Office [place] [address] Dorina Campbell, YACHT CAPTAIN [facility] [place] [address] 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); Closed displaced transverse fracture of shaft of right ulna with routine healing, subsequent encounter Social History Tobacco Use Types [...] Sign Reading Time Taken Comments Blood Pressure 147/79 03/20/2021 1:32 PM EDT Pulse 91 03/20/2021 1:32 PM EDT Temperature - - Respiratory Rate - - Oxygen Saturation - - Inhaled Oxygen Concentration - - Weight 73.9 kg (163 lb) 03/20/2021 1:32 PM EDT Height 157.5 cm (5' 2) 03/20/2021 1:32 PM EDT Body Mass Index 29.81 03/20/2021 1:32 PM EDT documented in this encounter Progress Notes * Dorina Campbell, YACHT CAPTAIN - 03/20/2021 2:20 PM EDT Chief complaint: Right ulna Fx with known previous arthrodesis Problem List Items Addressed This Visit S/P R elbow fusion on 12/14/17 Madeline Relevant Orders Other Visit Diagnoses Closed displaced transverse fracture of shaft of right ulna, - Primary Relevant Orders XR Elbow 3 Views Right (GENERIC) (Completed) History of present illness: Jesenia Méndez is a 60 y.o. year-old female + diabetic, non-smoker with multiple medical co-morbidities. Since I saw her last, she has been evaluated by our service for an infected left ankle fracture ORIF requiring multiple wash outs and skin flap surgery by plastics.The right arm is actually feeling better with ongoing bridging callous. The serology labs and CT that I obtained were reassuring for no obvious deep infection and ongoing healing. She has been castedup until last week with a long arm cast. She had her cast bivalved once since I saw her last. I diddiscuss her case with Dr. Correa after her CT and serology who recommended possibly coming out of thecast today and perhaps using a bone stimulator. She is here to discuss her progress and treatment options further. Patient's medications, allergies, past medical, surgical, social and family histories were reviewedand updated as appropriate. Review of systems: No chest pain or shortness of breath No fevers, night sweats or chills Questionnaire Responses: NONE Vital signs: Temp: [36.1 ??C (96.9 ??F)] Vitals: 03/20/21 1332 BP: 147/79 Pulse: 91 Weight: 73.9 kg (163 lb) Height: 157.5 cm (5' 2) Body mass index is 29.81 kg/m??. Physical Exam: 60 year old Female in NAD. Non-toxic appearing. Yet, appears somewhat fatigued here with her Father. Wearing a plaster slab on the left ankle and left wrist plaster resting splint. Right elbow exam: The elbow is fused with no motion in neutral position. There is minimal pain about the distal arthrodesis plate at the fracture site. Yet, less pain than her previous examination. No fracture motion appreciated. No erythema or evidence of infection. Able to wiggle her fingers. Axillary, Radial, ulna and median neuro- motor intact.Hand is sensate, well perfused, distal pulses are 2+ and equal. Painless right shoulder ROM. Imaging: Personal review and interpretation of the patient's imaging reveals: Updated right elbow x-ray reviewed image by image in the office today reveals ongoing healing and bridging callous of the proximal ulna Fx with no change in fracture position . Assessment: 60 y.o. year-old female diabetic with multiple medical co- morbidities with recent left ankle Fx ORIF infection with multiple washouts requiring left skin flap from her left arm. She is here for ongoing management of right proximal ulna fracture at the distal arthrodesis plate. There is less pain noted today with ongoing bridging callous with delayed union. Previous CT and serology reassuring for no deep infection. Plan: I reviewed my findings in the office today with both x-rays and clinical exam. At this time, As discussed with Dr. Correa. Ok to Transition to a removable splint today (cubital tunnel splint -removable) tolerated very well and very comfortable and safe. We also ordered an EXOGEN bone stimulator for delayed union. She has had several weeks of serial casting with slow healing. We feel that it is medically necessary at this time to try a BONE Stimulator for delayed union. DME order placed andcopied to both Jesenia and our secretarial staff Mayi Solomon. Pt agrees, questions solicited/answered, will return as scheduled and as needed for concerns or questions. Pt understands they may also call us prn for above. Follow up: 6-8 weeks with right elbow x-ray I have already ordered this as a future order in the computer. I would like to see her on a with a Dr. Jenkins Team clinic so I can review her images and case with Dr. Correa at that time. Jesenia will call sooner for any problems or concerns. She and her Father are comfortable with this approach. This plan was discussed with the patient and they are in agreement. All of the patient's questions were answered. 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
--- OUTSIDE RECORDS SUMMARY | 2024-05-31 17:43 | XMS_ITS | Encounter Summary ---
Author Organization [facility] [place] [address] Care Team Providers Care Greige Good[employer] Marker Name Role Phone Maryuri Evans MD Primary Care Provider [phone] Reason for Visit * Reason Comments Follow-up Closed displaced tra nsverse fracture of shaft of right ulna with routine healing, subsequent encounter Encounter Details Date Type Department Care Team (Late st Contact Info) Description 03/20/2021 1:00 PM EDT [place] [address] Closed displaced transverse fracture of shaft of [...] as of this encounter Progress Notes * Debi Cedeno - 03/20/2021 1:00 PM EDT NO CASTING NEEDED documented in this encounter Plan of Treatment Not on file documented as of this encounter Visit Diagnoses Diagnosis Closed displaced transverse fracture of shaft of right ulna with routine healing, subsequent encounter documented in this encounter Care Teams Greige Good[employer] Marker Relationship Specialty Start Date End Date Maryuri Evans MD [address] [place], [place] [id number] PCP - General 09/23/14 documented as of this encounter
--- OUTSIDE RECORDS SUMMARY | 2024-05-31 17:43 | XMS_ITS | Encounter Summary ---
Author Organization [facility] Address [facility] [place] [address] Care Team Providers Care Civil Process Server Name Role Phone Maryuri Evans MD Primary Care Provider [phone] Reason for Visit * Auth/Cert Specialty Diagnoses [...] Expiration Date Visits Re quested Visits Authorized [id number] 1 1 Encounter Details Date Type Department Care Team (Late st Contact Info) Description 03/13/2021 8:30 AM EDT - 03/13/2021 5:18 PM EDT [place] [id number] Aydee Franklin MD [facility] [place] [address] @FLAP, FREE FASCIAL, W/ MICRO ANASTOMOSIS, LOWER EXTREMITY (WRVU 36.9) Social History Tobacco Use Types Packs/Day Years [...] Sign Reading Time Taken Comments Blood Pressure 163/72 03/13/2021 7:28 AM EDT Pulse 79 03/13/2021 5:15 PM EDT Temperature 37 ??C (98.6 ??F) 03/13/2021 4:39 PM EDT Respiratory Rate 20 03/13/2021 5:15 PM EDT Oxygen Saturation 93% 03/13/2021 5:15 PM EDT Inhaled Oxygen Concentration - - Weight 74.3 kg (163 lb 12.8 oz) 03/13/2021 7:28 AM EDT Height 157.5 cm (5' 2) 03/13/2021 7:28 AM EDT Body Mass Index 29.96 03/13/2021 7:28 AM EDT documented in this encounter Discharge Summaries * Ava Cheema, SPORTS INTERN - 03/17/2021 9:09 AM EDT Plastic Surgery [...] Venous Access Non-Dialysis 03/16/2021 Yunior Flores MD [facility] INTERVENTIONLRAD ??? PRO ALVEOLOPLASTY W EXTRACTIONS, 4 OR MORE TEETH, PER QUADRANT N/A 09/11/2019 ALVEOPLASTY,IN CONJUNCTION WITH EXTRACTIONS,PER QUADRANT,ENT (WRVU 4.06) performed by Wesley Jacobo MD at [facility] OSC ? ? PRO DEBRIDEMENT BONE MUSCLE &/FASCIA 20 SQ CM/< Left 02/14/2021 DEBRIDEMENT SKIN, SUBCU, MUSCLE, BONE, LOWER EXTREMITY (WRVU 4.1) performed by Sabrina Capellan MDat [facility] MAIN OR ? ? PRO DEBRIDEMENT SUBCUTANEOUS TISSUE 20 SQCM/< Left 02/08/2021 DEBRIDEMENT SKIN AND SUBCU, LOWER EXTREMITY (WRVU 1.01) [facility] ? ? PRO DEBRIDEMENT SUBCUTANEOUS TISSUE 20 SQCM/< Left 02/10/2021 DEBRIDEMENT SKIN AND SUBCU, LOWER EXTREMITY (WRVU 1.01) performed by Jacobo De La Cruz MD at [facility] MAIN OR ? ? PRO DEBRIDEMENT SUBCUTANEOUS TISSUE 20 SQCM/< Left 02/12/2021 DEBRIDEMENT SKIN AND SUBCU, LOWER EXTREMITY (WRVU 1.01) performed by Sabrina Capellan MD at [facility] MAIN OR ??? PRO FREE FASCIAL FLAP W MICROVASC ANAST Left 03/13/2021 @FLAP, FREE FASCIAL, W/ MICRO ANASTOMOSIS, LOWER EXTREMITY (WRVU 36.9) performed by Aydee Franklin MD at [facility] MAIN OR ??? PRO FUSION/GRAFT OF ELBOW JOINT Right 2017 ARTHRODESIS, ELBOW JOINT WITH AUTOGENOUS GRAFT (WRVU 14.32) performed by Christopher Correa MD at [facility] MAIN OR ??? PRO REMOVAL DEEP IMPLANT Right 2017 REMOVAL OF IMPLANT, DEEP, ELBOW (WRVU 5.96) performed by Christopher Correa MD at [facility] MAIN OR ??? PRO REMOVAL ERUPTED TOOTH WITH ELEVATION OF MUCOPERIOSTEAL FLAP Bilateral 09/11/2019 SURGICAL EXTRACTIONS REQUIRING ELEVATION OF MUCOPERIOSTEAL FLAP AND REMOVAL OF BONE OR SECTION OF TOOTH (WRVU 1.09) performed by Wesley Jacobo MD at [facility] OSC ? ? PRO SPLIT GRFT TRUNK, ARM, LEG <100SQCM Left 03/13/2021 SPLIT THICK SKIN GRAFT,100 SQ CM OR LESS, LEGS (WRVU 9.9) performed [facility]dee [facility] Procedures: 03/13/2021 Surgeon(s) and Role: * [...] REMOVE Please contact the Blood Bank at [phone] for questions. ??? Pollen Extracts Other (See Comments) Rhinusitus ??? Trazodone Other (See Comments) Hallucination ??? Adhesive Rash Skin Rash ??? Lisinopril Other (See Comments) Cough. Pending Lab Data at Discharge: @DCLABS@ Condition at Discharge: Stable Important Studies and Lab Data: Labs: Recent Labs 03/17/21 0240 03/16/21 0218 03/15/21 0005 WBC 10.6* 10.8* 10.7* HGB 10.2* 10.8* 10.4* HCT 32.1* 34.4* 32.0* PLATELET 286 294 273 Recent Labs 03/17/21 0240 03/16/21 0218 03/15/21 0005 NA 141 140 142 K 3.9 [...] scheduling, please contact our administrative offices at [phone]. For clinical questions, please call our nurses at [phone]. Both offices are open Tuesday thru Tuesday 8a - 5p. With emergencies after hours, call the hospital hot punch press operator at [phone] and ask for the Plastic Surgery Resident implementation specialist payroll. Scheduled Appointments: Future Appointments Date Time Provider Department Center 03/20/2021 9:00 AM Juani Miller DO [facility] [place] [id number] [facility] 03/20/2021 1:00 PM CAST ROOM 3A [facility] [place]TH 3A [facility] 03/20/2021 1:30 PM [facility] DX ROOM 3 Xray [facility] Rad 03/20/2021 2:20 PM Dorina Campbell APRN [facility] [place]TH 3A [facility] 03/24/2021 10:20 AM Anabell Delarosa, SPORTS INTERN [facility] PLAS 4M [facility] Outpatient Services/Studies: OPAT: Order / Recommendation for [...] SERVICES) PATIENT'S LOCATION: Emmanuel Salazar [address] [address] (home) Cell: Telephone Information: Craps Manager's Name: Self In discussion with the attending physician, it is certified that this patient is under their care and that they, or a Nurse Practitioner,Clinical Nurse specialist or Physician Drill Press Set Up Operator Radial who is working directly with them, had [...] for managing ADL's. HOME HEALTH CARE AGENCY: [facility] [email or web address]. PHONE: [phone] FAX: [phone] Start of care: Day after discharge Please note that any additional orders needs or changes will need to be obtained from this patient's PCP: Maryuri Evans MD [address] / [place] [address] All VNA agencies which cover the area of patient's residence have been reviewed, either verbally jeaneth writing, and patient/family have chosen the home health care agency noted Question Response Notes Agency name and contact information Bri KIRBY Patient location post discharge Home What services [...] signal is lost, alert plastic surgery team [phone] DIET: Regular healthy diet. CALL MD IF: [...] office hours: Tuesday - Tuesday 8am-5pm call [phone]. On weekends or after hours call [phone] and ask the hot punch press operator to page the plastic surgery resident implementation specialist payroll. MEDICATIONS: You may resume your home medications [...] Tuesday 8 am to 5 pm Call [phone] On weekends or after hours: Call [phone] and ask the hot punch press operator to page the Plastic Surgery Resident implementation specialist payroll. Future Appointments Date Time Provider Department Center 03/20/2021 9:00 AM Juani Miller DO [facility] [place] [id number] [facility] 03/20/2021 1:00 PM CAST ROOM 3A [facility] [place]TH 3A [facility] 03/20/2021 1:30 PM [facility] DX ROOM 3 Xray [facility] Rad 03/20/2021 2:20 PM Dorina Campbell APRN [facility] ORTH 3A [facility] General Instructions [facility] Vascular/Interventional Radiology DISCHARGE INSTRUCTIONS FOR TUNNELED CENTRAL [...] is during regular working hours, please call [phone]. If it is after 5 pm or a weekend or holiday, call [phone] and ask for the Breast Trimmer implementation specialist payroll for Interventional Radiology. You have received medication [...] AM Juani Miller, DO Infectious Disease at [facility] Arrive at: Credit Compliance Officer Area [phone] 03/20/2021 1:00 PM CAST ROOM 3A Orthopaedics at [facility] Arrive at: Credit Compliance Officer Area 3A [phone] 03/20/2021 1:30 PM [facility] DX ROOM 3 XRay at [facility] Arrive at: Credit Compliance Officer Area [phone] Please go to Credit Compliance Officer Area 3T ([place] Location). 03/20/2021 2:20 PM Dorina Campbell APRN Orthopaedics at [facility] Arrive at: Credit Compliance Officer Area 3A [phone] 03/24/2021 10:20 AM Anabell Delarosa APRN Plastic Surgery at [facility] Arrive at: Credit Compliance Officer Area 4M [phone] Future Orders Complete By Expires OPAT: Order / Recommendation for Post Discharge IV Antibiotic Management [[id number] CPT(R)] As directed Process Instructions: If no progress note charted, please enter Clinical details in comments. Scheduling Instructions: Comments: [facility], [facility], [place] [address] FAX: After hours, please contact the Infectious Disease Physician implementation specialist payroll at . If this order was signed greater than 72 hours prior to [facility] discharge, please call to confirm the accuracy [...] Saline then 3 ml heparin (10 units/ml) nursing home for medication administration/supervisor grading and catheter care/maintenance authorized. PICC Dressing Change [...] Tuesday and PRN and fax results to [facility] at [phone]. Please see OPAT order for lab draw [...] Hilda Willams MD Referral for Outpatient Antibiotics [RNG0610 CPT(R)] As directed Process Instructions: Scheduling Instructions: Comments: Follow OPAT orders Questions: Vendor / contact information: [facility] Patient location post discharge: Home Service requested: IV ABX and PICC dressing equip. Start date: 03/18/2021 Responsible MD post discharge contact info: Referral to Home Health - at DISCHARGE [[id number] CPT(R)] As directed Process Instructions: Scheduling Instructions: Comments: DOCUMENTATION FOR VNA SERVICES (INCLUDING THOSE PATIENTS WITH MEDICARE COVERAGE REQUIRING HOME VNA SERVICES AND/OR HOSPICE SERVICES) PATIENT'S LOCATION: Emmanuel Salazar [address] [address] (home) Cell: Telephone Information: Craps Manager's Name: Self In discussion with the attending physician, it is certified that this patient is under their care and that they, or a Nurse Practitioner,Clinical Nurse specialist or Physician Drill Press Set Up Operator Radial who is working directly with them, had [...] for managing ADL's. HOME HEALTH CARE AGENCY: [facility]. PHONE: [phone] FAX: [phone] Start of care: Day after discharge Please note that any additional orders needs or changes will need to be obtained from this patient's PCP: Maryuri Evans MD [address] / [place] [address] All VNA agencies which cover the area of patient's residence have been reviewed, either verbally jeaneth writing, and patient/family have chosen the home health care agency noted Questions: [facility] post [facility]: Home What services [...] than 100.4 or 38 F. Signed: Ava Cheema APRN 03/17/2021 Plastic Surgery Nursing Orders: - Dangle protocol - Baci/Xeroform and cover QOD documented in this encounter Discharge Instructions * Discharge Instructions* Ramon Benítez RN - 03/16/2021 2:32 PM EDT [facility] Vascular/Interventional Radiology DISCHARGE INSTRUCTIONS FOR TUNNELED CENTRAL [...] is during regular working hours, please call [phone]. If it is after 5 pm or a weekend or holiday, call [phone] and ask for the Breast Trimmer implementation specialist payroll for Interventional Radiology. You have received medication [...] Updated 06/07/19 * Patient Instructions* Ava Cheema APRN - 03/16/2021 8:20 AM EDT LOWER EXTREMITY [...] signal is lost, alert plastic surgery team [phone] DIET: Regular healthy diet. CALL MD IF: [...] office hours: Tuesday - Tuesday 8am-5pm call [phone]. On weekends or after hours call [phone] and ask the hot punch press operator to page the plastic surgery resident implementation specialist payroll. MEDICATIONS: You may resume your home medications [...] Tuesday 8 am to 5 pm Call [phone] On weekends or after hours: Call [phone] and ask the hot punch press operator to page the Plastic Surgery Resident implementation specialist payroll. Future Appointments Date Time Provider Department Center 03/20/2021 9:00 AM Juani Miller DO [facility] ID 5C [facility] 03/20/2021 1:00 PM CAST ROOM 3A [facility] ORTH 3A [facility] 03/20/2021 1:30 PM [facility] DX ROOM 3 Xray [facility] Rad 03/20/2021 2:20 PM Dorina Campbell APRN [facility] ORTH [address] [place] [address] documented in this encounter Medications at Time [...] modify at home. Dc summary faxed to [facility]. Lovenox teaching done prior to DC. * Anton Murrieta RN - 03/17/2021 11:29 AM EDT Infusion Resource Center Follow up Note: Referral to : NEINDRA Confirmed with Tuan from [facility] that patient will be seen 03/18/21 at 0900. Hospital teaching completed 03/17/21 at 1000 Delivery of IV supplies will occur 03/17/21 by 2000 to be delivered to verified home address. Infusion Resource Center [phone] * Mono Felipe MD - 03/17/2021 7:01 AM EDT [...] Plastic Surgery Inpatient Progress Note (Team Pager #[phone]) Date of surgery: 03/13/21 CC/Procedure(s): Left radial [...] to discharge Plastic Surgery Inpatient Team Pager #[phone] * Zainab Briones APRN - 03/16/2021 3:18 PM EDT Plastic Surgery Inpatient Progress Note (Team Pager #[phone]) Date of surgery: 03/13/21 CC/Procedure(s): Left radial [...] in addition to home needs for the case picker to consider): Plastic Surgery Inpatient Team Pager #[phone] * Cynthia Gerber MD - 03/16/2021 3:18 PM EDT Plastic Surgery Inpatient Progress Note (Team Pager #[phone]) Date of surgery: 03/13/21 CC/Procedure(s): RFFF to [...] in addition to home needs for the case picker to consider): Plastic Surgery Inpatient Team Pager #[phone] Cynthia Gerber MD [facility] Ophthalmology PGY1 [phone] * Kalyani Dotson RN - 03/16/2021 2:42 PM EDT Infectious Disease/OPAT Program Teaching Visit Met with patient at bedside to discuss discharge on IV ABX. No change to previous OPAT order or responsibilities of the SOCIAL AND POLITICAL STUDIES PROFESSOR, infusion vendor, or ID clinic. Pt verbalized understanding. All questions answered. Anton Murrieta RN with [facility] will review abx administration with patient to [...] 700mg IV Q24h Anticipated end date: 03/26/2021 SOCIAL AND POLITICAL STUDIES PROFESSOR: [facility] vendor: [facility] IV Access: tunneled central line Placed: today Plan: discharge on OPAT program when medically ready. * Jacobo Noe - 03/16/2021 2:40 PM EDT Sales Agent Food Vending Service Encounter Note Patient Name: Emmanuel Salazar : [id number] MR#: [id number] Admit Date: 03/13/2021 6:59 AM Hospital Day 3 days Narrative: Visited to introduce and assess acceptance of Sales Agent Food Vending Service services.Pt was sleeping and I will visit an other time. Assessment: Intervention and Outcome: Follow-up: Time in Direct Care: Jacobo Noe 03/16/2021 * Marci Campbell RN - 03/16/2021 12:00 PM EDT The patient/technical support representative has been provided a list of Home Health Agencies/DME vendors which servetheir preferred geographic area. A letter describing our affiliations was reviewed with them and they were educated about their right to choose where referrals are placed. Provided patient with [facility] Star Quality Rating for Home care hand out. Patient requests referral to: [place], [place] or [facility] PHONE: [phone] FAX: [phone] . Expected date of discharge: 03/17/2021 Referral routed to the First Mate for matching with agency/vendor and to provide any required information. * Chayito Ashraf - 03/16/2021 11:41 AM EDT Nutrition Services Note - Low Nutrition Acuity Emmanuel Salazar is a 60 y.o. female Reason for intervention: ICU admit Nutrition Plan: Continue current diet. Encouraged good protein intake. Glucerna 2x/day. Monitor weight. Updated weight appreciated. Encourage good oral intake. Support and encouragement provided. DPt reports that her appetite is light and that she has not been very hungry. Plan Coordinator encouraged good protein intake. Pt agreed to trail of Glucerna 2x/day. Pt reports that she has lost a significant amount of weight since breaking her ankle on January 11. Nutrition will continue to monitor. Active Orders Diet Carb Control diet CHO counting level 1 Frequency: Effective Now [...] consulted in the interim. Chayito Ashraf Pager: [phone] * Socoter Mathis MD - 03/16/2021 11:21 AM EDTSumcorrine: ID progress note INFECTIOUS DISEASE FOLLOW UP NOTE Patient ID: Emmanuel Salazar Room: [address] [place] [address] Active ID Issue(s): Post-op wound infection with [...] on 01/11/21. She is s/p admission at [facility] 02/07-02/18 with several operations for I&D, wound [...] REMOVE Please contact the Blood Bank at [phone] for questions. ??? Pollen Extracts Other (See [...] Neuro: A&O Psych: Pleasant Laboratory: Recent Labs 03/16/2121703/15/21 0005 03/14/21 0030 WBC 10.8* 10.7* 11.7* HGB 10.8* 10.4* 10.2* HCT 34.4* 32.0* 30.9* PLATELET 294 273 256 Recent Labs 03/16/2121703/15/21 0005 03/14/21 0030 NA 140 142 142 [...] who have questions please contact the health managed care coordinator that requested your imaging first. Active ID Issue(s): L ankle wound infection/osteomyelitis. [...] of : 1960 AGE: 60 y.o. Address: [address] [place] [phone] (home) Mobile: Telephone Information: Referring Provider: Maryuri [...] REMOVE Please contact the Blood Bank at [phone] for questions. ??? Pollen Extracts Other (See [...] Sangeeta Jackson RN - 03/15/2021 5:09 PM EDTSummary: Progress note OUTCOME EVALUATION NOTE: OUTCOME SUMMARY: [...] Plastic Surgery Inpatient Progress Note (Team Pager #[phone]) Date of surgery: 03/13/21 CC/Procedure(s): RFFF to [...] in addition to home needs for the case picker to consider): Plastic Surgery Inpatient Team Pager #[phone] * Jim Bennett RN - 03/14/2021 6:55 [...] Plastic Surgery Inpatient Progress Note (Team Pager #[phone]) Date of surgery: 03/13/21 CC/Procedure(s): RFFF to [...] in addition to home needs for the case picker to consider): Plastic Surgery Inpatient Team Pager #[phone] * Puneet Rivera MD - 03/14/2021 9:35 [...] SUE Attending: Dr. Capellan Date of surgery: 6/24 for L ankle SUE Subjective/Events: Patient is [...] of the cast until instructed otherwise. Activity: KRISTIAN [facility]ENTON DVT prophylaxis: Per Primary Antibiotics: Per primary Omid Fraser MD 03/14/2021 Pager: [phone] Associated attestation - Sabrina Capellan MD - 03/18/2021 6:18 AM EDT Patient seen and examined. Agree with resident note. Micaela Capellan MD Department of Orthopaedics 03/18/21 * Ferdinand Morales DO - 03/14/2021 12:38 AM EDT Brief Internal [...] 03/14/21 6:59 AM Plastic Surgery Team Pager: [phone] * Jim Bennett, RN - 03/13/2021 5:49 PM EDT OUTCOME [...] 4.06) performed by Wesley Jacobo MD at [facility] OSC ? ? PRO DEBRIDEMENT BONE MUSCLE &/FASCIA 20 SQ CM/< Left 02/14/2021 DEBRIDEMENT SKIN, SUBCU, MUSCLE, BONE, LOWER EXTREMITY (WRVU 4.1) performed by Sabrina Capellan MDat [facility] MAIN OR ? ? PRO DEBRIDEMENT SUBCUTANEOUS TISSUE 20 SQCM/< Left 02/08/2021 DEBRIDEMENT SKIN AND SUBCU, LOWER EXTREMITY (WRVU 1.01) performed by Henrry Qu[facility]ones [facility] ? ? PRO DEBRIDEMENT SUBCUTANEOUS TISSUE 20 SQCM/< Left 02/10/2021 DEBRIDEMENT SKIN AND SUBCU, LOWER EXTREMITY (WRVU 1.01) performed by Jacobo De La Cruz MD at [facility] MAIN OR ? ? PRO DEBRIDEMENT SUBCUTANEOUS TISSUE 20 SQCM/< Left 02/12/2021 DEBRIDEMENT SKIN AND SUBCU, LOWER EXTREMITY (WRVU 1.01) performed by Sabrina Capellan MD at [facility] MAIN OR ??? PRO FUSION/GRAFT OF ELBOW JOINT Right 2017 ARTHRODESIS, ELBOW JOINT WITH AUTOGENOUS GRAFT (WRVU 14.32) performed by Christopher Correa MD at [facility] MAIN OR ??? PRO REMOVAL DEEP IMPLANT Right 2017 REMOVAL OF IMPLANT, DEEP, ELBOW (WRVU 5.96) performed by Christopher Correa MD at [facility] MAIN OR ??? PRO REMOVAL ERUPTED TOOTH WITH ELEVATION OF MUCOPERIOSTEAL FLAP Bilateral 09/11/2019 SURGICAL EXTRACTIONS REQUIRING ELEVATION OF MUCOPERIOSTEAL FLAP AND REMOVAL OF BONE OR SECTION OF TOOTH (WRVU 1.09) performed by Wesley Jacobo MD at [facility] OSC Medications: Current Outpatient Medications on [...] 4.06) performed by Wesley Jacobo MD at [facility] OSC ? ? PRO DEBRIDEMENT BONE MUSCLE &/FASCIA 20 SQ CM/< Left 02/14/2021 DEBRIDEMENT SKIN, SUBCU, MUSCLE, BONE, LOWER EXTREMITY (WRVU 4.1) [facility] ? ? PRO DEBRIDEMENT SUBCUTANEOUS TISSUE 20 SQCM/< Left 02/08/2021 DEBRIDEMENT SKIN AND SUBCU, LOWER EXTREMITY (WRVU 1.01) [facility] ? ? PRO DEBRIDEMENT SUBCUTANEOUS TISSUE 20 SQCM/< Left 02/10/2021 DEBRIDEMENT SKIN AND SUBCU, LOWER EXTREMITY (WRVU 1.01) performed by Jacobo D eLa Cruz MD at [facility] MAIN OR ? ? PRO DEBRIDEMENT SUBCUTANEOUS TISSUE 20 SQCM/< Left 02/12/2021 DEBRIDEMENT SKIN AND SUBCU, LOWER EXTREMITY (WRVU 1.01) performed by Sabrina Capellan MD at [facility] MAIN OR ??? PRO FUSION/GRAFT OF ELBOW JOINT Right 2017 ARTHRODESIS, ELBOW JOINT WITH AUTOGENOUS GRAFT (WRVU 14.32) performed by Christopher Correa MD at [facility] MAIN OR ??? PRO REMOVAL DEEP IMPLANT Right 2017 REMOVAL OF IMPLANT, DEEP, ELBOW (WRVU 5.96) performed by Christopher Correa MD at [facility] MAIN OR ??? PRO REMOVAL ERUPTED TOOTH WITH ELEVATION OF MUCOPERIOSTEAL FLAP Bilateral 09/11/2019 SURGICAL EXTRACTIONS REQUIRING ELEVATION OF MUCOPERIOSTEAL FLAP AND REMOVAL OF BONE OR SECTION OF TOOTH (WRVU 1.09) performed by Wesley Jacobo MD at [facility] OSC Medications: Current Outpatient Medications on [...] 4.06) performed by Wesley Jacobo MD at [facility] OSC ? ? PRO DEBRIDEMENT BONE MUSCLE &/FASCIA 20 SQ CM/< Left 02/14/2021 DEBRIDEMENT SKIN, SUBCU, MUSCLE, BONE, LOWER EXTREMITY (WRVU 4.1) performed by Sabrina Capellan MDat [facility] MAIN OR ? ? PRO DEBRIDEMENT SUBCUTANEOUS TISSUE 20 SQCM/< Left 02/08/2021 DEBRIDEMENT SKIN AND SUBCU, LOWER EXTREMITY (WRVU 1.01) performed by [facility] Qu[facility] ? ? PRO DEBRIDEMENT SUBCUTANEOUS TISSUE 20 SQCM/< Left 02/10/2021 DEBRIDEMENT SKIN AND SUBCU, LOWER EXTREMITY (WRVU 1.01) performed by Jacobo De La Cruz MD at [facility] MAIN OR ? ? PRO DEBRIDEMENT SUBCUTANEOUS TISSUE 20 SQCM/< Left 02/12/2021 DEBRIDEMENT SKIN AND SUBCU, LOWER EXTREMITY (WRVU 1.01) performed by Sabrina Capellan MD at [facility] MAIN OR ??? PRO FUSION/GRAFT OF ELBOW JOINT Right 2017 ARTHRODESIS, ELBOW JOINT WITH AUTOGENOUS GRAFT (WRVU 14.32) performed by Christopher Correa MD at [facility] MAIN OR ??? PRO REMOVAL DEEP IMPLANT Right 2017 REMOVAL OF IMPLANT, DEEP, ELBOW (WRVU 5.96) performed by Christopher Correa MD at [facility] MAIN OR ??? PRO REMOVAL ERUPTED TOOTH WITH ELEVATION OF MUCOPERIOSTEAL FLAP Bilateral 09/11/2019 SURGICAL EXTRACTIONS REQUIRING ELEVATION OF MUCOPERIOSTEAL FLAP AND REMOVAL OF BONE OR SECTION OF TOOTH (WRVU 1.09) performed by Wesley Jacobo MD at [facility] Prior To Admission Medications: Medications [...] REMOVE Please contact the Blood Bank at [phone] for questions. ??? Pollen Extracts Other (See [...] [facility] information [facility] [address] [place] [phone] CM Confirm visit for tomorrow at 9am [...] DC: Has walker Other: IV ABX from [facility] : delivery .Confirmed for 8pm tonight Patient is insured through: Primary Insurance[place] Pay[place] / Plan[place] PRIMARY CARE PL[place] / Product Type: *No Product type* / Secondary Insurance: N/A Prescription Coverage: Yes Preferred Pharmacy: [email or web address] [address] [address] This plan was formulated with input from patient, and team. All are in agreement with plan. Office of Care Management SHANTAL Campbell RNCM Beeper #[id number] * Plan of Care - Evelyn Torre [...] Right IJ placed during day shift for residential antibiotics. Scan amount of bloody drainage shadowing [...] down to IR for RIJ placement for intermediate accountant antibiotics. Pt is A&Ox4. VSS on RA. [...] Father would be surrogate decision maker per [place] surrogate decision making law. (Only good for 90 days) Any patient receiving care at [facility] [place] abide by [place]. The hierarchy for surrogate decision making [...] (i) The agent with financial power of compliance attorney or a conservator appointed in accordance with [...] standard [address] [facility] [address] Social & Family Supports: All names listed below confirmed with patient as current and correct Extended Emergency Contact Information Primary Emergency Contact: Jacobo Salazar Address: [address] [place] [address] [facility] [place] Relation: Father Current Care Provided by: self, homecare agency, parent(s) Provides Primary Care For: no one Caregiver if needed: child(valentina), adult Quality of Family relationships: supportive Community Resources being provided [facility]al Health History: Denies Substance Use/Abuse listed: [...] Insurance: N/A Prescription Coverage: Yes Preferred Pharmacy: [email or web address] [address] [address] [place] Status: Patient is a : No Primary Care Provider: Maryuri Evans MD [phone] Patient/Caregiver Goals of Treatment: to get home Potential Needs for Transition of Care: home health care Agency Referrals: The patient/caregivers were provided with a list of VNA which serve their preferred geographic location and they were educated about their right to choose where referrals are placed. Patient/Caregiver requests referral to [facility] . Transportation: no concerns Transportation Anticipated: family [...] of Care Management SHANTAL Campbell RNCM Beeper #[id number] * Plan of Care - Nupur [place] [...] taking anything if I cant have my kemia benjamin repeated several times. Nursing actions taken during [...] Operative Note Patient Name: Emmanuel Salazar : [id number] MR#: [id number] Case Date: 03/13/2021 Surgeon: Surgeon(s) and Role: [...] [place] MD - 03/13/2021 9:47 AM EDT [facility] Operative Note Patient Name: Emmanuel Salazar : [id number] MR#: [id number] Case Date: 03/13/2021 Surgeon: Surgeon(s) and Role: [...] Implant Name Type Inv. Item Serial No. Premium Auditor Lot No. LRB No. Used Action teaching supervisor [id number] Left 1 Implanted DRYING ROOM OPERATOR MICROVASCULAR 2.5MM 2 ENDED RED GEM ([id number]) - [id number] IMPLANTS DRYING ROOM OPERATOR MICROVASCULAR 2.5MM 2 ENDED RED GEM ([id number]) [employer] - RASUCH A [id number] Left 1 Implanted Surgical Closure: Primary Closure [...] deeper accessory vein using a 2.0mm venous teaching supervisor. An end-to-side anastomosis was performed between the anterior tibial artery and the radial artery using 8-0 nylon suture. The anterior tibial vein was anastomosed to the cephalic vein using a 2.5mm venous teaching supervisor. Once anastomosis was complete the Acland clamps [...] EDT Split Grft Trunk, Arm, Leg <100Sqcm ([id number]) 03/13/2021 8:39 AM EDT Closed fracture of left ankle with routine healing Free Fascial Flap W Microvasc Anast ([id number]) 03/13/2021 8:39 AM EDT Closed fracture of [...] Glucose, POC 187 65 - 199 mg/dL [facility] Comment: Supplemental ranges: <140 mg/dL before meals <180 mg/dL all other times of the day Blood 03/17/2021 11:3 6 AM EDT 03/17/2021 11:36 AM EDT Aydee [place] MD POINT OF CARE TEST O VIKKI Performing Organization Address [facility] Co de Phone Number [facility] [place] [address] * (ABNORMAL) POCT Glucose (03/17/2021 9:02 AM EDT) Glucose, POC 254(H) 65 - 199 mg/dL [facility] Comment: Supplemental ranges: <140 mg/dL before meals <180 mg/dL all other times of the day Blood 03/17/2021 9:02 AM EDT 03/17/2021 9:02 AM EDT Aydee [place] MD POINT OF CARE TEST O VIKKI Performing Organization Address [facility]/ZIP Co de Phone Number [facility] [place] [address] * POCT Glucose (03/17/2021 7:22 AM EDT) Glucose, POC 166 65 - 199 mg/dL [facility] Comment: Supplemental ranges: <140 mg/dL before meals <180 mg/dL all other times of the day Blood 03/17/2021 7:22 AM EDT 03/17/2021 7:22 AM EDT Aydee [place] MD POINT OF CARE TEST O RDERABLES [facility] [place] [address] * POCT Glucose (03/17/2021 3:25 AM EDT) Glucose, POC 169 65 - 199 mg/dL [facility] Comment: Supplemental ranges: <140 mg/dL before meals <180 mg/dL all other times of the day Blood 03/17/2021 3:25 AM EDT 03/17/2021 3:25 AM EDT Aydee [place] MD POINT OF CARE TEST O RDERABLES Performing Organization Address [facility]/ZIP Co de Phone Number [facility] [place] [address] * (ABNORMAL) Differential, Automated (03/17/2021 2:40 AM EDT) [facility] Neutrophil % 80.2 % [facility] Neutrophil Absolute 8.54(H) 1.70 - 6.10 x10(3)/mc L [facility] Lymph % 10.6 % [facility] Lymphocytes Abs 1.1 0.9 - 3.2 x10(3)/mc L [facility] Monocyte % 4.8 % [facility] Monocyte Abs 0.5 0.3 - 0.9 x10(3)/mc L [facility] Eos % 3.5 % [facility] Eosinophils Abs 0.4 0.0 - 0.4 x10(3)/mc L [facility] Basophil % 0.5 % [facility] Baso Absolute 0.0 0.0 - 0.1 x10(3)/mc L [facility] Immature Gran % 0.40 % [facility] Comment: Immature granulocytes(IG's)percentage and absolute count will include metamyelocytes, myelocytes, and promyelocytes. Blood smears from CBCs yielding IG's will be scanned manually for concordance. If this scan disagrees with the automated IG or if promyelocytes are noted, a manual differential will be performed. Immature Gran Absolute 0.04 0.00 - 0.04 x10(3)/mc L [facility] Blood 03/17/2021 2:40 AM EDT 03/17/2021 2:42 AM EDT Narrative Resulting Agency Comment Spec In Lab Joann Delcid MD HEMATOLOGY ORDERABLE S [facility] [place] [address] * (ABNORMAL) Hemogram (03/17/2021 2:40 AM EDT) White Blood Cell 10.6(H) 4.0 - 9.5 x10(3)/mc L [facility] Red Blood Cell 3.70(L) 4.00 - 5.21 x10(6)/mc L [facility] Hemoglobin 10.2(L) 11.7 - 15.5 gm/dL [facility] Hematocrit 32.1(L) 35.7 - 45.8 % [facility] Mean Cell Volume 86.8 82.6 - 94.4 fL [facility] Mean Cell Hemoglobin 27.6 27.1 - 32.0 pg [facility] Mean Cell Hemoglobin Concentration 31.8 31.7 - 35.0 gm/dL [facility] Platelet 286 145 - 357 x10(3)/mc L [facility] RDW Standard Deviation 44.4 37.0 - 46.0 [facility] RDW coefficient of variation 14.2(H) 11.5 - 14.1 % [facility] Mean Platelet Volume 9.8 7.6 - 12.9 fL [facility] NRBC% auto 0.0 % [facility] NRBC Absolute 0.000 0.000 - 0.000 x10(3)/mc L [facility] Blood 03/17/2021 2:40 AM EDT 03/17/2021 2:42 AM EDT Narrative Resulting Agency Comment Spec In Lab Joann Delcid MD HEMATOLOGY ORDERABLE S Performing Organization Address [facility]/ZIP Co de Phone Number [facility] [place] [address] * Phosphorus (03/17/2021 2:40 AM EDT) Phosphorus 3.0 2.5 - 4.5 mg/dL [facility] Blood 03/17/2021 2:40 AM EDT 03/17/2021 2:42 AM EDT Narrative Resulting Agency Comment Spec In Lab Aydee [place] MD CHEMISTRY ORDERABLES Performing Organization Address [facility] Co de Phone Number [facility] [place] [address] * Magnesium (03/17/2021 2:40 AM EDT) Magnesium 0.80 0.69 - 1.07 mmol/L [facility] Blood 03/17/2021 2:40 AM EDT 03/17/2021 2:42 AM EDT Narrative Resulting Agency Comment Spec In Lab Aydee [place] MD CHEMISTRY ORDERABLES Performing Organization Address [facility] Co de Phone Number [facility] [place] [address] * (ABNORMAL) Prealbumin (03/17/2021 2:40 AM EDT) Prealbumin 10(L) 20 - 40 mg/dL [facility] Comment: Prealbumin levels are generally lower in the pediatric population; adult concentrations are usually attained near puberty. Blood 03/17/2021 2:40 AM EDT 03/17/2021 2:42 AM EDT Narrative Resulting Agency Comment Spec In Lab Aydee [place] MD CHEMISTRY ORDERABLES [facility] [place] [address] * (ABNORMAL) Basic Metabolic Panel (non-fasting) (03/17/2021 2:40 AM EDT) Glucose 154 65 - 199 mg/dL [facility] Comment:Diabetes: >=200 mg/d L plus symptoms Blood Urea Nitrogen 11 8 - 18 mg/dL [facility] Creatinine 0.68(L) 0.70 - 1.20 mg/dL [facility] Sodium 141 135 - 145 mmol/L [facility] Potassium 3.9 3.5 - 5.0 mmol/L [facility] Comment: Please note: ??Patients with WBC >100,000 may have falsely elevated Potassium levels. ??For accurate Potassium quantification in these patients send serum separator tube (gold top) for subsequent determinations. ??Contact the Clinical Chemistry Laboratory if there are any questions. Chloride 106 98 - 107 mmol/L [facility] Carbon Dioxide 26 22 - 31 mmol/L [facility] Anion Gap 9 5 - 15 mmol/L [facility] Calcium 8.5 8.5 - 10.5 mg/dL [facility] Est Glomerular Filtration Rate 96 >=60 mL/min/1. 73 m?? [facility] Comment: This patient? s estimated [...] [place] MD CHEMISTRY ORDERABLES Performing Organization Address [facility]/ZIP Co de Phone Number [facility] [place] [address] * POCT Glucose (03/16/2021 10:58 PM EDT) Glucose, POC 188 65 - 199 mg/dL [facility] Comment: Supplemental ranges: <140 mg/dL before meals <180 mg/dL all other times of the day Blood 03/16/2021 10:5 8 PM EDT 03/16/2021 10:58 PM EDT Aydee [place] MD POINT OF CARE TEST O RDERABLES Performing Organization Address [facility] Co de Phone Number [facility] [place] [address] * (ABNORMAL) POCT Glucose (03/16/2021 8:04 PM EDT) Glucose, POC 213(H) 65 - 199 mg/dL [facility] Comment: Supplemental ranges: <140 mg/dL before meals <180 mg/dL all other times of the day Blood 03/16/2021 8:04 PM EDT 03/16/2021 8:04 PM EDT Aydee [place] MD POINT OF CARE TEST O RDERAMISBAH Performing Organization Address City/[facility]/ZIP Co de Phone Number [facility] [place] [address] * POCT Glucose (03/16/2021 3:56 PM EDT) Glucose, POC 97 65 - 199 mg/dL [facility] Comment: Supplemental ranges: <140 mg/dL before meals <180 mg/dL all other times of the day Blood 03/16/2021 3:56 PM EDT 03/16/2021 3:56 PM EDT Aydee [place] MD POINT OF CARE TEST O RDERABLES [facility] [place] [address] * IR Tunneled Central Venous Access Non-Dialysis (03/16/2021 3:14 PM EDT) Anatomical Region Laterality Modality Chest, Vascular X-Ray Angiograph y Narrative 03/16/2021 3:53 PM EDT Interventional Radiology Procedure Note Procedure: Tunneled single-lumen catheter implant Indication: 60-year-old female on long-term IV antibiotics for chronic left lower extremity wound, durable correction central venous access for frequent infusions Procedure [...] documented by the IR nurse. Zainab Briones [employer] INTER[employer] IMG IR ORDERABLES * (ABNORMAL) POCT Glucose (03/16/2021 11:45 AM EDT) Glucose, POC 244(H) 65 - 199 mg/dL [facility] Comment: Supplemental ranges: <140 mg/dL before meals <180 mg/dL all other times of the day Blood 03/16/2021 11:4 5 AM EDT 03/16/2021 11:45 AM EDT Aydee [place] MD POINT OF CARE TEST O RDERAMISBAH Performing Organization Address City/[facility] Co de Phone Number [facility] [place] [address] * POCT Glucose (03/16/2021 7:49 AM EDT) Glucose, POC 172 65 - 199 mg/dL [facility] Comment: Supplemental ranges: <140 mg/dL before meals <180 mg/dL all other times of the day Blood 03/16/2021 7:49 AM EDT 03/16/2021 7:49 AM EDT Aydee [place] MD POINT OF CARE TEST O RDERAMISBAH [facility] [place] [address] * POCT Glucose (03/16/2021 3:53 AM EDT) Glucose, POC 139 65 - 199 mg/dL [facility] Comment: Supplemental ranges: <140 mg/dL before meals <180 mg/dL all other times of the day Blood 03/16/2021 3:53 AM EDT 03/16/2021 3:53 AM EDT Aydee [place] MD POINT OF CARE TEST O RDERABLES Performing Organization Address City/[facility]/ZIP Co de Phone Number [facility] [place] [address] * (ABNORMAL) Hepatic Function Panel (03/16/2021 2:18 AM EDT) [facility] Protein, Total 6.2 6.1 - 8.0 gm/dL [facility] Albumin 3.0(L) 3.2 - 5.2 gm/dL [facility] Aspartate Aminotransferase 22 0 - 30 unit/L [facility] Alanine Aminotransferase 7 0 - 30 unit/L [facility] Alkaline Phosphatase 95 35 - 105 unit/L [facility] Bilirubin, Total 0.2 0.2 - 1.3 mg/dL [facility] Bilirubin, Direct <0.1 0.0 - 0.3 mg/dL [facility] Blood Venous Draw / Unknown 03/16/2021 2:18 AM EDT 03/16/2021 2:32 AM EDT Narrative Resulting Agency Comment Spec In Lab Aydee [place] MD CHEMISTRY ORDERABLES Performing Organization Address City/[facility]/ZIP Co de Phone Number [facility] [place] [address] * (ABNORMAL) CRP, acute inflammation (03/16/2021 2:18 AM EDT) [facility] C-Reactive Protein 163.1(H) <=4.9 mg/L [facility] Blood Venous Draw / Unknown 03/16/2021 2:18 AM EDT 03/16/2021 2:32 AM EDT Narrative Resulting Agency Comment Spec In Lab Aydee [place] MD CHEMISTRY ORDERABLES [facility] [place] [address] * (ABNORMAL) Differential, Automated (03/16/2021 2:18 AM EDT) Neutrophil % 79.9 % [facility] Neutrophil Absolute 8.61(H) 1.70 - 6.10 x10(3)/ L [facility] Lymph % 10.8 % [facility] Lymphocytes Abs 1.2 0.9 - 3.2 x10(3)/[facility] Monocyte % 5.5 % [facility] Monocyte Abs 0.6 0.3 - 0.9 x10(3)/[facility] Eos % 2.9 % [facility] Eosinophils Abs 0.3 0.0 - 0.4 x10(3)/ L [facility] Basophil % 0.4 % [facility] Baso Absolute 0.0 0.0 - 0.1 x10(3)/ L [facility] Immature Gran % 0.50 % [facility] Comment: Immature granulocytes(IG's)percentage and absolute count will include metamyelocytes, myelocytes, and promyelocytes. Blood smears from CBCs yielding IG's will be scanned manually for concordance. If this scan disagrees with the automated IG or if promyelocytes are noted, a manual differential will be performed. Immature Gran Absolute 0.05(H) 0.00 - 0.04 x10(3)/ L [facility] Blood 03/16/2021 2:18 AM EDT 03/16/2021 2:31 AM EDT Narrative Resulting Agency Comment Spec In Lab Joann Delcid MD HEMATOLOGY ORDERABLE S [facility] [place] [address] * (ABNORMAL) Hemogram (03/16/2021 2:18 AM EDT) [facility] White Blood Cell 10.8(H) 4.0 - 9.5 x10(3)/ L [facility] Red Blood Cell 3.95(L) 4.00 - 5.21 x10(6)/[facility] Hemoglobin 10.8(L) 11.7 - 15.5 gm/dL [facility] Hematocrit 34.4(L) 35.7 - 45.8 % [facility] Mean Cell Volume 87.1 82.6 - 94.4 fL [facility] Mean Cell Hemoglobin 27.3 27.1 - 32.0 pg [facility] Mean Cell Hemoglobin Concentration 31.4(L) 31.7 - 35.0 gm/dL [facility] Platelet 294 145 - 357 x10(3)/ L [facility] RDW Standard Deviation 44.7 37.0 - 46.0 [facility] RDW coefficient of variation 13.9 11.5 - 14.1 % [facility] Mean Platelet Volume 10.0 7.6 - 12.9 fL [facility] NRBC% auto 0.0 % [facility] NRBC Absolute 0.000 0.000 - 0.000 x10(3)/[facility] Blood 03/16/2021 2:18 AM EDT 03/16/2021 2:31 AM EDT Narrative Resulting Agency Comment Spec In Lab Joann Delcid MD HEMATOLOGY ORDERABLE S [facility] [place] [address] * Phosphorus (03/16/2021 2:18 AM EDT) Phosphorus 2.9 2.5 - 4.5 mg/dL [facility] Blood 03/16/2021 2:18 AM EDT 03/16/2021 2:31 AM EDT Narrative Resulting Agency Comment Spec In Lab Aydee [place] MD CHEMISTRY ORDERABLES Performing Organization Address [facility] Co de Phone Number [facility] [place] [address] * Magnesium (03/16/2021 2:18 AM EDT) Magnesium 0.86 0.69 - 1.07 mmol/L [facility] Blood 03/16/2021 2:18 AM EDT 03/16/2021 2:31 AM EDT Narrative Resulting Agency Comment Spec In Lab Aydee [place] MD CHEMISTRY ORDERABLES Performing Organization Address [facility] de Phone Number [facility] [place] [address] * (ABNORMAL) Prealbumin (03/16/2021 2:18 AM EDT) Prealbumin 10(L) 20 - 40 mg/dL [facility] Comment: Prealbumin levels are generally lower in the pediatric population; adult concentrations are usually attained near puberty. Blood 03/16/2021 2:18 AM EDT 03/16/2021 2:31 AM EDT Narrative Resulting Agency Comment Spec In Lab Aydee [place] MD CHEMISTRY ORDERABLES Performing Organization Address [facility] Co de Phone Number [facility] [place] [address] * Basic Metabolic Panel (non-fasting) (03/16/2021 2:18 AM EDT) Glucose 150 65 - 199 mg/dL [facility] Comment:Diabetes: >=200 mg/d L plus symptoms Blood Urea Nitrogen 8 8 - 18 mg/dL [facility] Creatinine 0.78 0.70 - 1.20 mg/dL [facility] Sodium 140 135 - 145 mmol/L [facility] Potassium 3.6 3.5 - 5.0 mmol/L [facility] Comment: Please note: ??Patients with WBC >100,000 may have falsely elevated Potassium levels. ??For accurate Potassium quantification in these patients send serum separator tube (gold top) for subsequent determinations. ??Contact the Clinical Chemistry Laboratory if there are any questions. Chloride 107 98 - 107 mmol/L [facility] Carbon Dioxide 23 22 - 31 mmol/L [facility] Anion Gap 10 5 - 15 mmol/L [facility] Calcium 8.8 8.5 - 10.5 mg/dL [facility] Est Glomerular Filtration Rate 83 >=60 mL/min/1. 73 m?? [facility] Comment: This patient? s estimated [...] In Lab Aydee [place] MD CHEMISTRY ORDERABLES [facility] [place] [address] * POCT Glucose (03/15/2021 11:23 PM EDT) Glucose, POC 140 65 - 199 mg/dL [facility] Comment: Supplemental ranges: <140 mg/dL before meals <180 mg/dL all other times of the day Blood 03/15/2021 11:2 3 PM EDT 03/15/2021 11:23 PM EDT Aydee [place] MD POINT OF CARE TEST O VIKKI Performing Organization Address City/[facility]/ZIP Co de Phone Number [facility] [place] [address] * (ABNORMAL) POCT Glucose (03/15/2021 8:49 PM EDT) Glucose, POC 241(H) 65 - 199 mg/dL [facility] Comment: Supplemental ranges: <140 mg/dL before meals <180 mg/dL all other times of the day Blood 03/15/2021 8:49 PM EDT 03/15/2021 8:49 PM EDT Aydee [place] MD POINT OF CARE TEST O VIKKI Performing Organization Address [facility]/ZIP Co de Phone Number [facility] [place] [address] * POCT Glucose (03/15/2021 3:37 PM EDT) Glucose, POC 190 65 - 199 mg/dL [facility] Comment: Supplemental ranges: <140 mg/dL before meals <180 mg/dL all other times of the day Blood 03/15/2021 3:37 PM EDT 03/15/2021 3:37 PM EDT Aydee [place] MD POINT OF CARE TEST O RDERAMISBAH Performing Organization Address City/[facility]/ZIP Co de Phone Number [facility] [place] [address] * (ABNORMAL) POCT Glucose (03/15/2021 12:51 PM EDT) Glucose, POC 243(H) 65 - 199 mg/dL [facility] Comment: Supplemental ranges: <140 mg/dL before meals <180 mg/dL all other times of the day Blood 03/15/2021 12:5 1 PM EDT 03/15/2021 12:51 PM EDT Aydee [place] MD POINT OF CARE TEST O RDFLAKITA Performing Organization Address City/[facility] Co de Phone Number [facility] [place] [address] * (ABNORMAL) POCT Glucose (03/15/2021 11:47 AM EDT) Glucose, POC 223(H) 65 - 199 mg/dL [facility] Comment: Supplemental ranges: <140 mg/dL before meals <180 mg/dL all other times of the day Blood 03/15/2021 11:4 7 AM EDT 03/15/2021 11:47 AM EDT Aydee [place] MD POINT OF CARE TEST O VIKKI Performing Organization Address [facility] Co de Phone Number [facility] [place] [address] * POCT Glucose (03/15/2021 8:37 AM EDT) Glucose, POC 136 65 - 199 mg/dL [facility] Comment: Supplemental ranges: <140 mg/dL before meals <180 mg/dL all other times of the day Blood 03/15/2021 8:37 AM EDT 03/15/2021 8:37 AM EDT Aydee [place] MD POINT OF CARE TEST O RDERAMISBAH Performing Organization Address City/[facility] Co de Phone Number [facility] [place] [address] * POCT Glucose (03/15/2021 8:09 AM EDT) Glucose, POC 123 65 - 199 mg/dL [facility] Comment: Supplemental ranges: <140 mg/dL before meals <180 mg/dL all other times of the day Blood 03/15/2021 8:09 AM EDT 03/15/2021 8:09 AM EDT Aydee [place] MD POINT OF CARE TEST O VIKKI Performing Organization Address City/[facility]/ZIP Co de Phone Number [facility] [place] [address] * POCT Glucose (03/15/2021 4:17 AM EDT) Glucose, POC 152 65 - 199 mg/dL [facility] Comment: Supplemental ranges: <140 mg/dL before meals <180 mg/dL all other times of the day Blood 03/15/2021 4:17 AM EDT 03/15/2021 4:17 AM EDT Aydee [place] MD POINT OF CARE TEST O VIKKI Performing Organization Address [facility] Co de Phone Number [facility] [place] [address] * POCT Glucose (03/15/2021 12:07 AM EDT) Glucose, POC 108 65 - 199 mg/dL [facility] Comment: Supplemental ranges: <140 mg/dL before meals <180 mg/dL all other times of the day Blood 03/15/2021 12:0 7 AM EDT 03/15/2021 12:07 AM EDT Aydee [place] MD POINT OF CARE TEST O VIKKI Performing Organization Address City/[facility] Co de Phone Number [facility] [place] [address] * (ABNORMAL) Differential, Automated (03/15/2021 12:05 AM EDT) Neutrophil % 78.2 % [facility] Neutrophil Absolute 8.40(H) 1.70 - 6.10 x10(3)/mc L [facility] Lymph % 12.6 % [facility] Lymphocytes Abs 1.4 0.9 - 3.2 x10(3)/ L [facility] Monocyte % 5.5 % [facility] Monocyte Abs 0.6 0.3 - 0.9 x10(3)/[facility] Eos % 2.8 % [facility] Eosinophils Abs 0.3 0.0 - 0.4 x10(3)/[facility] LAB[facility] Basophil % 0.5 % [facility] Baso Absolute 0.0 0.0 - 0.1 x10(3)/[facility] LAB[facility] Immature Gran % 0.40 % [facility] Comment: Immature granulocytes(IG's)percentage and absolute count will include metamyelocytes, myelocytes, and promyelocytes. Blood smears from CBCs yielding IG's will be scanned manually for concordance. If this scan disagrees with the automated IG or if promyelocytes are noted, a manual differential will be performed. Immature Gran Absolute 0.04 0.00 - 0.04 x10(3)/[facility] LAB[facility] Blood 03/15/2021 12:0 5 AM EDT 03/15/2021 12:20 AM EDT Narrative Resulting Agency Comment Spec In Lab Aimee [place] MD HEMATOLOGY ORDERABLE S [facility] [place] [address] * (ABNORMAL) Hemogram (03/15/2021 12:05 AM EDT) White Blood Cell 10.7(H) 4.0 - 9.5 x10(3)/[facility] LAB[facility] Red Blood Cell 3.69(L) 4.00 - 5.21 x10(6)/[facility] Hemoglobin 10.4(L) 11.7 - 15.5 gm/dL [facility] Hematocrit 32.0(L) 35.7 - 45.8 % [facility] Mean Cell Volume 86.7 82.6 - 94.4 fL [facility] Mean Cell Hemoglobin 28.2 27.1 - 32.0 pg [facility] Mean Cell Hemoglobin Concentration 32.5 31.7 - 35.0 gm/dL [facility] Platelet 273 145 - 357 x10(3)/mc L [facility] RDW Standard Deviation 44.1 37.0 - 46.0 [facility] LAB[facility]ATORY RDW coefficient of variation 13.9 11.5 - 14.1 % [facility] Mean Platelet Volume 9.7 7.6 - 12.9 [facility] LABORATORY NRBC% auto 0.0 % [facility] NRBC Absolute 0.000 0.000 - 0.000 x10(3)/mc L [facility] Blood 03/15/2021 12:0 5 AM EDT 03/15/2021 12:20 AM EDT Narrative Resulting Agency Comment Spec In Lab Aimee [place] MD HEMATOLOGY ORDERABLE S Performing Organization Address City/[facility] Co de Phone Number [facility] [place] [address] * Phosphorus (03/15/2021 12:05 AM EDT) Phosphorus 2.9 2.5 - 4.5 mg/dL [facility] Blood 03/15/2021 12:0 5 AM EDT 03/15/2021 12:20 AM EDT Narrative Resulting Agency Comment Spec In Lab Aydee [place] MD CHEMISTRY ORDERABLES Performing Organization Address [facility] Co de Phone Number [facility] [place] [address] * Magnesium (03/15/2021 12:05 AM EDT) Magnesium 0.86 0.69 - 1.07 mmol/L [facility] Blood 03/15/2021 12:0 5 AM EDT 03/15/2021 12:20 AM EDT Narrative Resulting Agency Comment Spec In Lab Aydee [place] MD CHEMISTRY ORDERABLES Performing Organization Address [facility] Co de Phone Number [facility] [place] [address] * (ABNORMAL) Prealbumin (03/15/2021 12:05 AM EDT) Prealbumin 9(L) 20 - 40 mg/dL [facility] Comment: Prealbumin levels are generally lower in the pediatric population; adult concentrations are usually attained near puberty. Blood 03/15/2021 12:0 5 AM EDT 03/15/2021 12:20 AM EDT Narrative Resulting Agency Comment Spec In Lab Aydee [place] MD CHEMISTRY ORDERABLES Performing Organization Address [facility] Co de Phone Number [facility] [place] [address] * (ABNORMAL) Basic Metabolic Panel (non-fasting) (03/15/2021 12:05 AM EDT) Glucose 103 65 - 199 mg/dL [facility] Comment:Diabetes: >=200 mg/d L plus symptoms Blood Urea Nitrogen 7(L) 8 - 18 mg/dL [facility] Creatinine 0.84 0.70 - 1.20 mg/dL [facility] Sodium 142 135 - 145 mmol/L [facility] Potassium 4.0 3.5 - 5.0 mmol/L [facility] Comment: Please note: ??Patients with WBC >100,000 may have falsely elevated Potassium levels. ??For accurate Potassium quantification in these patients send serum separator tube (gold top) for subsequent determinations. ??Contact the Clinical Chemistry Laboratory if there are any questions. Chloride 110(H) 98 - 107 mmol/L [facility] Carbon Dioxide 24 22 - 31 mmol/L [facility] Anion Gap 8 5 - 15 mmol/L [facility] Calcium 8.3(L) 8.5 - 10.5 mg/dL [facility] Est Glomerular Filtration Rate 76 >=60 mL/min/1. 73 m?? [facility] Comment: This patient? s estimated [...] [place] MD CHEMISTRY ORDERABLES Performing Organization Address City/[facility]/ZIP Co de Phone Number [facility] [place] [address] * CK (03/15/2021 12:05 AM EDT) Creatine Kinase 113 0 - 160 unit/L [facility] Blood 03/15/2021 12:0 5 AM EDT 03/15/2021 12:20 AM EDT Narrative Resulting Agency Comment Spec In Lab Aydee [place] MD CHEMISTRY ORDERABLES [facility] [place] [address] * POCT Glucose (03/14/2021 8:37 PM EDT) Glucose, POC 168 65 - 199 mg/dL [facility] Comment: Supplemental ranges: <140 mg/dL before meals <180 mg/dL all other times of the day Blood 03/14/2021 8:37 PM EDT 03/14/2021 8:37 PM EDT Adyee [place] MD POINT OF CARE TEST O RDERABLES Performing Organization Address City/[facility]/ZIP Co de Phone Number [facility] [place] [address] * POCT Glucose (03/14/2021 3:29 PM EDT) Glucose, POC 128 65 - 199 mg/dL [facility] Comment: Supplemental ranges: <140 mg/dL before meals <180 mg/dL all other times of the day Blood 03/14/2021 3:29 PM EDT 03/14/2021 3:29 PM EDT Aydee [place] MD POINT OF CARE TEST O RDERABLES Performing Organization Address [facility] Co de Phone Number [facility] [place] [address] * (ABNORMAL) POCT Glucose (03/14/2021 1:10 PM EDT) Glucose, POC 242(H) 65 - 199 mg/dL [facility] Comment: Supplemental ranges: <140 mg/dL before meals <180 mg/dL all other times of the day Blood 03/14/2021 1:10 PM EDT 03/14/2021 1:10 PM EDT Aydee [place] MD POINT OF CARE TEST O RDERABLES Performing Organization Address City/[facility] Co de Phone Number [facility] [place] [address] * POCT Glucose (03/14/2021 7:48 AM EDT) Glucose, POC 137 65 - 199 mg/dL [facility] Comment: Supplemental ranges: <140 mg/dL before meals <180 mg/dL all other times of the day Blood 03/14/2021 7:48 AM EDT 03/14/2021 7:48 AM EDT Aydee [place] MD POINT OF CARE TEST O RDERABLES [facility] [place] [address] * (ABNORMAL) Differential, Automated (03/14/2021 12:30 AM EDT) Neutrophil % 82.7 % [facility] Neutrophil Absolute 9.63(H) 1.70 - 6.10 x10(3)/mc L [facility] Lymph % 10.3 % [facility] Lymphocytes Abs 1.2 0.9 - 3.2 x10(3)/mc L [facility] Monocyte % 5.1 % [facility] Monocyte Abs 0.6 0.3 - 0.9 x10(3)/mc L [facility] Eos % 1.2 % [facility] Eosinophils Abs 0.1 0.0 - 0.4 x10(3)/mc L [facility] Basophil % 0.3 % [facility] Baso Absolute 0.0 0.0 - 0.1 x10(3)/mc L [facility] Immature Gran % 0.40 % [facility] Comment: Immature granulocytes(IG's)percentage and absolute count will include metamyelocytes, myelocytes, and promyelocytes. Blood smears from CBCs yielding IG's will be scanned manually for concordance. If this scan disagrees with the automated IG or if promyelocytes are noted, a manual differential will be performed. Immature Gran Absolute 0.05(H) 0.00 - 0.04 x10(3)/mc L [facility] Blood 03/14/2021 12:3 0 AM EDT 03/14/2021 12:39 AM EDT Narrative Resulting Agency Comment Spec In Lab Aimee [place] MD HEMATOLOGY ORDERABLE S [facility] [place] [address] * (ABNORMAL) Hemogram (03/14/2021 12:30 AM EDT) White Blood Cell 11.7(H) 4.0 - 9.5 x10(3)/mc L [facility] Red Blood Cell 3.63(L) 4.00 - 5.21 x10(6)/mc L [facility] Hemoglobin 10.2(L) 11.7 - 15.5 gm/dL [facility] Hematocrit 30.9(L) 35.7 - 45.8 % [facility] Mean Cell Volume 85.1 82.6 - 94.4 fL [facility] Mean Cell Hemoglobin 28.1 27.1 - 32.0 pg [facility] Mean Cell Hemoglobin Concentration 33.0 31.7 - 35.0 gm/dL [facility] Platelet 256 145 - 357 x10(3)/mc L [facility] RDW Standard Deviation 43.3 37.0 - 46.0 fL [facility] RDW coefficient of variation 13.9 11.5 - 14.1 % [facility] Mean Platelet Volume 9.8 7.6 - 12.9 fL [facility] NRBC% auto 0.0 % [facility] NRBC Absolute 0.000 0.000 - 0.000 x10(3)/mc L [facility] Blood 03/14/2021 12:3 0 AM EDT 03/14/2021 12:39 AM EDT Narrative Resulting Agency Comment Spec In Lab Aimee [place] MD HEMATOLOGY ORDERABLE S [facility] [place] [address] * Phosphorus (03/14/2021 12:30 AM EDT) Phosphorus 2.5 2.5 - 4.5 mg/dL [facility] Blood 03/14/2021 12:3 0 AM EDT 03/14/2021 12:39 AM EDT Narrative Resulting Agency Comment Spec In Lab Aydee [place] MD CHEMISTRY ORDERABLES Performing Organization Address City/[facility] Co de Phone Number [facility] [place] [address] * Magnesium (03/14/2021 12:30 AM EDT) Magnesium 0.97 0.69 - 1.07 mmol/L [facility] Blood 03/14/2021 12:3 0 AM EDT 03/14/2021 12:39 AM EDT Narrative Resulting Agency Comment Spec In Lab Aydee [place] MD CHEMISTRY ORDERABLES Performing Organization Address [facility] Co de Phone Number [facility] [place] [address] * (ABNORMAL) Prealbumin (03/14/2021 12:30 AM EDT) Prealbumin 10(L) 20 - 40 mg/dL [facility] Comment: Prealbumin levels are generally lower in the pediatric population; adult concentrations are usually attained near puberty. Blood 03/14/2021 12:3 0 AM EDT 03/14/2021 12:39 AM EDT Narrative Resulting Agency Comment Spec In Lab Aydee [place] MD CHEMISTRY ORDERABLES Performing Organization Address [facility] Co de Phone Number [facility] [place] [address] * (ABNORMAL) Basic Metabolic Panel (non-fasting) (03/14/2021 12:30 AM EDT) Glucose 114 65 - 199 mg/dL [facility] Comment:Diabetes: >=200 mg/d L plus symptoms Blood Urea Nitrogen 7(L) 8 - 18 mg/dL [facility] Creatinine 0.83 0.70 - 1.20 mg/dL [facility] Sodium 142 135 - 145 mmol/L [facility] Potassium 3.7 3.5 - 5.0 mmol/L [facility] Comment: Please note: ??Patients with WBC >100,000 may have falsely elevated Potassium levels. ??For accurate Potassium quantification in these patients send serum separator tube (gold top) for subsequent determinations. ??Contact the Clinical Chemistry Laboratory if there are any questions. Chloride 108(H) 98 - 107 mmol/L [facility] Carbon Dioxide 24 22 - 31 mmol/L [facility] Anion Gap 10 5 - 15 mmol/L [facility] Calcium 7.9(L) 8.5 - 10.5 mg/dL [facility] Est Glomerular Filtration Rate 77 >=60 mL/min/1. 73 m?? [facility] Comment: This patient? s estimated [...] In Lab Aydee [place] MD CHEMISTRY ORDERABLES [facility] [place] [address] * XR Elbow 3 Views Right (GENERIC) [...] who have questions please contact the health managed care coordinator that requested your imaging first. [...] patients who have questions please contactthe health managed care coordinator that requested your imaging first. Aydee [place] MD IMG DX ORDERABLES * POCT Glucose (03/13/2021 4:46 PM EDT) Glucose, POC 140 65 - 199 mg/dL [facility] Comment: Supplemental ranges: <140 mg/dL before meals <180 mg/dL all other times of the day Blood 03/13/2021 4:46 PM EDT 03/13/2021 4:46 PM EDT Aydee [place] MD POINT OF CARE TEST O RDERAMISBAH Performing Organization Address [facility]/ZIP Co de Phone Number [facility] [place] [address] * POCT Glucose (03/13/2021 3:33 PM EDT) Glucose, POC 141 65 - 199 mg/dL [facility] Comment: Supplemental ranges: <140 mg/dL before meals <180 mg/dL all other times of the day Blood 03/13/2021 3:33 PM EDT 03/13/2021 3:33 PM EDT Aydee [place] MD POINT OF CARE TEST O VIKKI [facility] [place] [address] * POCT Glucose (03/13/2021 2:31 PM EDT) Glucose, POC 152 65 - 199 mg/dL [facility] Comment: Supplemental ranges: <140 mg/dL before meals <180 mg/dL all other times of the day Blood 03/13/2021 2:31 PM EDT 03/13/2021 2:31 PM EDT Aydee [place] MD POINT OF CARE TEST O RDERAMISBAH [facility] [place] [address] * POCT Glucose (03/13/2021 1:33 PM EDT) Glucose, POC 174 65 - 199 mg/dL [facility] Comment: Supplemental ranges: <140 mg/dL before meals <180 mg/dL all other times of the day Blood 03/13/2021 1:33 PM EDT 03/13/2021 1:33 PM EDT Aydee [place] MD POINT OF CARE TEST O RDERAMISBAH Performing Organization Address [facility]/ZIP Co de Phone Number [facility] [place] [address] * (ABNORMAL) POCT Glucose (03/13/2021 12:38 PM EDT) Glucose, POC 201(H) 65 - 199 mg/dL [facility] Comment: Supplemental ranges: <140 mg/dL before meals <180 mg/dL all other times of the day Blood 03/13/2021 12:3 8 PM EDT 03/13/2021 12:38 PM EDT Aydee [place] MD POINT OF CARE TEST O RDERAMIBSAH [facility] [place] [address] * POCT Glucose (03/13/2021 11:09 AM EDT) Glucose, POC 183 65 - 199 mg/dL [facility] Comment: Supplemental ranges: <140 mg/dL before meals <180 mg/dL all other times of the day Blood 03/13/2021 11:0 9 AM EDT 03/13/2021 11:09 AM EDT Aydee [place] MD POINT OF CARE TEST O VIKKI [facility] [place] [address] * POCT Glucose (03/13/2021 7:31 AM EDT) Glucose, POC 175 65 - 199 mg/dL [facility] Comment: Supplemental ranges: <140 mg/dL before meals <180 mg/dL all other times of the day Blood 03/13/2021 7:31 AM EDT 03/13/2021 7:31 AM EDT Aydee [place] MD POINT OF CARE TEST O VIKKI Performing Organization Address City/[facility]/ZIP Co de Phone Number [facility] [place] [address] * SCAN DOC: IMPLANTABLE DEVICES (03/13/2021 12:00 AM EDT) Unknown MEDIA MGR SCAN EXT O RDR/RSLT documented in this encounter Visit Diagnoses Diagnosis Closed fracture of left ankle with routine healing Ankle abscess Cellulitis and abscess of leg, except foot Wound infection complicating hardware, sequela Ankle wound, left, sequela Ankle wound, left, sequela Closed fracture of left ankle with routine healing documented in this encounter Admitting Diagnoses Diagnosis [...] Given 03/15/2021 8:23 AM EDT 150 mg DAPTOmycin (Cubicin) 700 mg in sodium chloride [...] Given 03/14/2021 8:33 PM EDT 40 mg gabapentin (Neurontin) capsule 300 mg 300 mg, Oral, 3 TIMES DAILY, First dose on Tue03/14/21 at 0900, Until Discontinued, Routine Given 03/17/2021 8:58 AM EDT 300 mg Given 03/16/2021 8:07 PM EDT 300 mg Given 03/16/2021 3:50 PM EDT 300 mg heparin (porcine) (1,000 units/mL) injection ONCE PRN, Starting on Tue03/13/21 at 1501, Until Tue03/13/21 at 1646, Intra-Operative (Intra-Procedure), Routine Given 03/13/2021 3:01 PM EDT 50,000 Units 19- Surgical Site insulin lispro (HumaLOG;Admelog) (100 unit/mL) subcutaneous injection [...] mcg, Oral, EVERY MORNING, First dose on Tue03/14/21 at 0600, Until Discontinued, Routine Given 03/17/2021 5:18 AM EDT 50 mcg Given 03/16/2021 6:23 AM EDT 50 mcg Given 03/15/2021 5:23 AM EDT 50 mcg lidocaine (Xylocaine) 1% (10 mg/mL) injection 3 mg 3 mg (0.3 mL), Subcutaneous, ONCE PRN, 1 dose, Starting on Tue03/16/21 at 1354, Until Tue03/17/21 at 1857, for discomfort with PIV insertion, Routine lidocaine (XYLOCAINE) 4 % (40 mg/mL) external solution ONCE PRN, Starting on Tue03/13/21 at 1455, Until Tue03/13/21 at 1646, Intra-Operative (Intra-Procedure) Given 03/13/2021 2:55 PM EDT 5 mLs 19- Surgical Site lidocaine-EPINEPHrine (1% - 1:100,000) injection ONCE PRN, Starting on Tue03/13/21 at 1458, Until Tue03/13/21 at 1646, Intra-Operative (Intra-Procedure), Routine Given 03/13/2021 2:58 PM EDT 40 mLs 19- Surgical Site losartan (Cozaar) tablet 25 mg 25 mg, Oral, DAILY, First dose on Tue03/14/21 at 0900, Until Discontinued, Routine Given 03/17/2021 8:58 AM EDT 25 mg Given 03/16/2021 8:27 AM EDT 25 mg Given 03/15/2021 8:23 AM EDT 25 mg oxyCODONE (Roxicodone) tablet 5 mg 5 [...] Intravenous, 2 TIMES DAILY, First dose on Tue03/14/21 at 0015, Until Discontinued, Recovery (Recovery-Hospital Unit), [...] link provided on this medication record., Routine topiramate (Topamax) tablet 100 mg 100 mg, Oral, 2 TIMES DAILY, First dose (after last reorder) on 03/14/21 at 1000, Until Discontinued, DO NOT SPLIT, [...] Hernández RN)1600 (Due - Provider: David Mann [facility]) aspirin chewable tablet 81 mg [...] RN) 0859 (New Bag - Provider: Urmila Hernández RN)0929 (Stopped - Provider: Urmila Hernández RN) enoxaparin (Lovenox) (40 mg/0.4 mL) subcutaneous injection [...] Jackson RN)1547 (Given - Provider: Sangeeta Jackson RN)2044 (Given - Provider: Tiffani Montoya RN) 0827 [...] Altman RN - Reason: Order parameters not met)2005 (Given - Provider: Evelyn Torre RN)2303 (Given [...] 0858 (Given - Provider: Urmila Hernández RN) magnesium sulfate 2 g in sterile water [...] Tiffani Montoya RN - Reason: Patient/family refused) 826 (Given - Provider: Davy Altman RN)2006 (Given - Provider: Evelyn Torre RN) 08 (Not Given - Provider: Urmila Hernández RN - Reason: Patient/family refused) sertraline (Zoloft) tablet 200 mg 200 mg, Oral, DAILY, First dose on 03/14/21 at 0900, Until Discontinued, Routine 0823 (Given - Provider: Sangeeta Jackson RN) 08 (Given - Provider: Davy Altman RN) 08 (Given - Provider: Urmila Hernández RN) sodium chloride 0.9 % (flush) (BD PosiFlush Normal Saline 0.9) flush 5 mL 5 mL, Intravenous, 2 TIMES DAILY, First dose on Tue03/13/21 at 2100, Until Discontinued, Recovery (Recovery-Hospital Unit), Routine 1002 (Given - Provider: Sangeeta Jackson RN)2099 (Not Given - Provider: Tiffani Montoya RN - Reason: Patient/family refused) 925 (Given - Provider: Davy Altman RN)2099 (Not Given - Provider: Evelyn Torre RN - Reason: See comment - Comment: duplicated order) 09 (Not Given - Provider: Urmila Hernández RN - Reason: Medication not available) sodium chloride 0.9 % (flush) (BD PosiFlush Normal Saline 0.9) flush 5 mL 5 mL, Intravenous, 2 TIMES DAILY, First dose on Tue03/14/21 at 0015, Until Discontinued, Recovery (Recovery-Hospital Unit), Routine 1003 (Given - Provider: Sangeeta Jackson RN)2045 (Given - Provider: Tiffani Montoya RN) 09 (Given - Provider: Davy Altman RN)2005 (Given - Provider: Evelyn Torre RN) 09 (Not Given - Provider: Urmila Hernández RN - Reason: Medication not available) sodium chloride 0.9 % (flush) (BD PosiFlush Normal Saline 0.9) flush 5 mL 5 mL, Intravenous, 2 TIMES DAILY, First dose on Tue03/16/21 at 1445, Until Discontinued, Routine 1445 (Given - Provider: Davy Altman, SUNIL)2005 (Given - Provider: Evelyn Torre RN) 0900 (Not Given - Provider: Urmila Hernández, SUNIL [...] Ramon Benítez RN)1450 (Given - Provider: Ramon Benítez, SUNIL)1457 (Given - Provider: Ramon Benítez RN) lidocaine [...] Ramon Benítez RN)1436 (Given - Provider: Ramon Benítez, RN)1439 (Given - Provider: Ramon Benítez, SUNIL)1450 (Given - Provider: Ramon Benítez, SUNIL)1457 (Given - Provider: Ramon Benítez RN) ondansetron (pf) (Zofran) (2 mg/mL) injection [...] Routine documented in this encounter Care Teams Civil Process Server Relationship Specialty Start Date End Date Maryuri Evans MD [address] [place] [address] PCP - General 09/23/14 documented as of this encounter
--- OUTSIDE RECORDS SUMMARY | 2024-05-31 17:43 | XMS_ITS | Encounter Summary ---
Author Organization Formerly [facility], [facility] Address [facility] [place] [address] Care Team Providers Care Post Doctoral Researcher Name Role Phone Maryuri Evans MD Primary Care Provider Encounter Details Date Type Department Care Team (Latest Contact Info) Description 03/20/2021 12:54 PM EDT - 03/20/2021 11:59 PM EDT Hospital Encounter XRay at [address] [place] [address] Dorina Campbell APRN [facility] [address] Closed displaced transverse fracture of shaft of [...] for 35 days. 46 each 02/19/2021 03/26/2021 polyethylene glycoL (Miralax) 17 gram Powder in [...] of this encounter Plan of Treatment Scheduled Orders Name Type Priority Associated Diagnoses Orde r Schedule XR Shoulder Right (Generic) Imaging Routine Closed displaced transverse fracture of shaft of right ulna with routine healing, subsequent encounter 1 Occurrences starting 03/20/2021 until 03/20/2021 documented as of this encounter Procedures Procedure Name Priority Date/Time Associated Diagnosis Comments XR ELBOW 3 VIEWS RIGHT (GENERIC) Routine 03/20/2021 1:09 PM EDT Closed displaced transverse fracture of [...] have questions please contact the health primary health care nurse that requested your imaging first. ? Narrative 03/20/2021 1:31 PM EDT EXAMINATION: XR [...] who have questions please contactthe health primary health care nurse that requested your imaging first. Dorina Massey Adrian ACCOUNTS PAYABLE ASSOCIATE IMG DX ORDERABLES documented in this encounter Visit Diagnoses Diagnosis Closed displaced transverse fracture of shaft of right ulna with routine healing, subsequent encounter documented in this encounter Care Teams Post Doctoral Researcher Relationship Specialty Start Date End Date Maryuri Evans MD [address] [place] [address] PCP - General 09/23/14 documented as of this encounter
--- OUTSIDE RECORDS SUMMARY | 2024-05-31 17:44 | XMS_ITS | Encounter Summary ---
Author Organization Formerly [facility], [facility] [place] [address] Care Team Providers Care Inventory Control Clerk Name Role Phone Maryuri Evans MD Primary Care Provider [phone] Reason for Visit * Auth/Cert Specialty Diagnoses [...] Expiration Date Visits Re quested Visits Authorized [id number] 1 1 Encounter Details Date Type Department Care Team (Latest Contact Info) Description 03/12/2021 11:26 AM EDT - 03/12/2021 11:59 PM EDT Hospital [place] [id number] Discharge Disposition: Home Social History Tobacco Use [...] on filedocumented in this encounter Care Teams Inventory Control Clerk Relationship Specialty Start Date End Date Maryuri Evans MD [address] [place] [address] PCP - General 09/23/14 documented as of this encounter
--- OUTSIDE RECORDS SUMMARY | 2024-05-31 17:44 | XMS_ITS | Encounter Summary ---
Author Organization [facility] Address [facility] [place] [address] Care Team Providers Care Linux Security Administrator Name Role Phone Maryuri Evans MD Primary Care Provider [phone] Reason for Visit * Reason Comments Follow-up left ankle wound vac change Encounter Details Date Type Department Care Team (Late st Contact Info) Description 03/09/2021 4:30 PM EDT Office [place] [address] Aydee Franklin MD [facility] [address] [place] [address] Ankle wound, left, sequela Social History Tobacco Use Types Packs/Day Years [...] Progress Notes * Aydee Franklin MD - 03/09/2021 4:30 PM EDT Plastic Surgery Follow-up note Aydee Franklin MD. Reason for visit: F/U L ankle wound HPI: Pt is accompanied by her father for today's visit. She is s/p I&D/removal of hardware. Sheis tolerating wound vac changes well and is pleased with her progress Examination: There were no vitals taken for this visit. Patient is alert, conversant, comfortable, ambulating Cast in place. Wound with small amt visible bone at base, remainder is granulation, no fibrinous slough. Surrounding skin viable Impression: Jesenia Méndez is a 60 y.o. female who was seen today for follow- up with left ankle wound. We discussed management. I recommended flap coverage of this wound given her exposed bone. We will plan to perform this on Tuesday. Cont wound vac until that time Plan: Follow up: Tuesday for surgery documented in this encounter Plan of Treatment Not on file documented as of this encounter Visit Diagnoses Diagnosis Ankle wound, left, sequela documented in this encounter Care Teams Linux Security Administrator Relationship Specialty Start Date End Date Maryuri Evans MD [address] [place] [address] PCP - General 09/23/14 documented as of this encounter
--- OUTSIDE RECORDS SUMMARY | 2024-05-31 17:44 | XMS_ITS | Encounter Summary ---
Author Organization Formerly [facility] Address [facility] [place] [address] Care Team Providers Care Blow Molder Name Role Phone Maryuri Evans MD Primary Care Provider [phone] Reason for Visit * Auth/Cert Specialty Diagnoses [...] Expiration Date Visits Re quested Visits Authorized [id number] 1 1 Encounter Details Date Type Department Care Team (Late st Contact Info) Description 03/13/2021 8:16 AM EDT Anesthesia Event [place] [address] Venkatesh Toribio MD [facility] [place] [address] Vignesh Paredes MD [facility] [place] [address] Anesthesia Record Procedure Summary Procedure Name Responsible Anesthesiologist Anesthesia Start Time Anesthesia Stop Time @FLAP, FREE FASCIAL, W/ MICRO ANASTOMOSIS, LOWER EXTREMITY (WRVU 36.9) (Left) Venkatesh Toribio MD 03/13/21 0816 03/13/21 1642 Events Date Time Event Comment 03/13/2021 0802 AN Verify 0811 0816 Start 0840 An Start Data 0851 An Induction 0854 An Intubation 0918 Anesthesia Ready 0951 An Tourn Inflated 1108 An Tourn Deflated 1137 Break/Relief In I assumed ca re for Break Relief before which we: 1. Identified the patient 2. Identified the responsible provider(s) 3. Reviewed the pertinent medical history 4. Discussed the surgical plan and course 5. Reviewed intra-op anesthesia management and issues during anesthesia 6. Set expectations for the relief (and/or post-procedure) period 7. Allowed opportunity for questions and acknowledgement of understanding Ebony Urban, SAFETY ENGINEER 1203 Break/Relief Out 1458 Break/Relief In I assumed ca re for Break Relief before which we: 1. Identified the patient 2. Identified the responsible provider(s) 3. Reviewed the pertinent medical history 4. Discussed the surgical plan and course 5. Reviewed intra-op anesthesia management and issues during anesthesia 6. Set expectations for the relief (and/or post-procedure) period 7. Allowed opportunity for questions and acknowledgement of understanding Mookie Cano SAFETY ENGINEER 1515 Break/Relief Out 1617 Extubation/LMA Out 1619 an stop data 1640 Recovery or ICU Handoff Adilene ent care was transferred to the destination unit staff after review of the patient's medical history, current anesthetic/surgical status and plan, according to the Provider Handoff Checklist. 1642 Stop Meds Name Total Midazolam 2 mg fentaNYL 400 mcg IV Lidocaine 80 mg Propofol 130 mg Rocuronium 50 mg ePHEDrine 5 mg Neostigmine 5 mg Glycopyrrolate 0.8 mg ceFAZolin (Ancef) 2 g in dextrose 5% 100 mL infusion 4 g Propofol INF 563.19 mg acetaminophen IV 1,000 mg Vecuronium 6 mg insulin lispro (humaLOG) 2 Units Insulin Regular Human 2 Units Heparin 3,000 Units Insulin Regular INF 6.73 Units Indocyanine Green 7.5 mg lactated ringers infusion 1,000 mL Normosol-R 1,000 mL * Agents Name O2 Air N2O Sevoflurane (et) * Blood No blood administrations on file. Lines, Drains, and Airways Type Details Placement Removal NPWT 03/13/21; 1506; anterior, lower; residual limb, LUE 03/13/21 1506 by Dorcas Saucedo RN Incision 02/08/21; 1014; Left ; ankle; vertical; 04/19/22 (LDA cleanup utility RA#[id number]); 1715 (LDA cleanup utility RA#[id number]) 02/08/21 1014 by Shasta Tejada RN 04/19/22 1715 by Kaylin Hart NPWT 02/08/21; 1026; Left ; ankle; 03/13/21; 0900 02/08/21 1026 by Shasta Tejada RN 03/13/21 0900 by Jeyson Armendariz (RETIRED) PICC Line - Single Lumen 02/14/21; 0932; basilic vein (medial side of arm), left; pressure injectable catheter, open-ended catheter; 0 cm; 38 cm; 38 cm; placement verified by x-ray; superior vena cava; DEB CHUNG RN; distraction, intradermal injection, tolerated well, appears comfortable; 0; LDA not present upon assessment; 03/14/21; 1900 02/14/21 0932 by Kendall Chung RN 03/14/21 1900 by Nupur Greenwood RN Urethral Catheter 03/13/21; (Present o n arrival from OR); Physician order; Immobility without alternative; indwelling double lumen catheter; urethral catheter removed, tubing intact, per protocol/policy; 03/15/21; 0530 03/13/21 0000 by Jim Bennett RN 03/15/21 0530 by Nupur Greenwood RN ETT Mask Ventilation: Adjunct (2); ETT Type: Cuffed, Oral; ETT Size: 7 mm; Mac Blade: 3; Notes: Asleep, Pre-O2; Attempts: 1; Laryngoscopy Grade: 1; ETT Placement Verified By: Auscultation, Capnometry; Secured at Teeth: 18 cm; Inserted by: jaspal; Removal Date: 03/13/21; Removal Time: 161603/13/21 0854 by Jaime Santos CRNA 03/13/21 161 by Jaime Santos CRNA (RETIRED) Peripheral IV Line - Single Lumen 03/13/21; 0914; metacarpal vein (top of hand), right; 18 gauge; cb; Lost IV when ART line removed.; removed inadvertently; 03/14/21; 1100 03/13/21 0914 by Jaime Santos, SAFETY ENGINEER 03/14/21 1100 by Jim Bennett, SUNIL Arterial Line 03/13/21; 0918; radi al artery, right; 20 gauge; Anatomical Landmarks; cb; Sterile Prep, Sterile Gloves; Removed without incident.; no longer indicated, catheter intact; 03/14/21; 1100 03/13/21 0918 by Jaime Santos, SAFETY ENGINEER 03/14/21 1100 by Jim Bennett RN Incision 03/13/21; 0947; anterior, lower; residual limb, [...] Jeyson Armendariz 04/19/22 1715 by Kaylin Hart documented in this encounter Social History Tobacco [...] OR Notes * Anesthesia Postprocedure Evaluation - Venkatesh Toribio MD - 03/13/2021 5:30 PM EDT Department of Anesthesiology Post-procedure Note Patient: Jesenia Méndez Procedure Summary Date: 03/13/21 Room / Location: [facility] OR [address] [place] [address] MAIN OR Anesthesia Start: 815 Anesthesia Stop: 1641 Procedures: @FLAP, FREE FASCIAL, W/ MICRO ANASTOMOSIS, LOWER EXTREMITY (WRVU 36.9) (Left ) SPLIT THICK SKIN GRAFT,100 SQ CM OR LESS, LEGS (WRVU 9.9) (Left Leg) Diagnosis: Closed fracture of left ankle with routine healing (Left ankle wound) Surgeons: Aydee Franklin MD Responsible Provider: Venkatesh Toribio MD Anesthesia Type: general ASA Status: 3 All Anesthesia Providers: Anesthesiologist: Venkatesh Toribio MD; Toño Barone MD SAFETY ENGINEER: Jaime Santos CRNA Vitals Value Taken Time BP Temp 37 ??C (98.6 ??F) 03/13/21 1639 Pulse 77 03/13/21 1729 Resp 13 03/13/21 1729 SpO2 95 % 03/13/21 1729 Pain Level 5 03/13/21 1710 Vitals shown include unvalidated device data. Patient Location: ICU Level of Consciousness: Conscious but Sleepy Pain Management: Satisfactory Analgesia PONV: None Cardiovascular Status: Hemodynamically Stable Respiratory Status: Stable Respiratory Status Postoperative Fluid Status: Intravascular EUvolemia Possible Anesthetic Complications: NONE apparent at time of evaluation Final Primary Anesthesia Type: General (The anesthetic type performed was the same as planned.) Comments: * Anesthesia Preprocedure Evaluation - Toño Barone MD - 03/13/2021 8:10 AM EDT Pre-Anesthesia Evaluation for: Jesenia Méndez a 60 y.o. female. Procedure(s): @FLAP, FREE FASCIAL, W/ MICRO ANASTOMOSIS, LOWER EXTREMITY (WRVU 36.9) SPLIT THICK SKIN GRAFT,100 SQ CM OR LESS, LEGS (WRVU 9.9) Patient Active Problem List Diagnosis ??? Ankle wound, left, sequela ? ? S/P Left ankle I&D for abscess and wound dehiscence, 02/08/21 (Dr Quiñones) and 02/10/21 (Abdirahman); 02/12 + 02/14 ( Dr. Capellan) ??? Closed fracture of left ankle with routine healing ??? H/O insulin dependent diabetes mellitus ??? H/O: depression ??? Hypothyroidism ??? h/o chronic headaches ??? Closed fracture of shaft of right ulna with known elbow arthrodesis RIGHT ??? Chronic pain in left shoulder ??? S/P R elbow fusion on 12/14/17 Madeline ??? Psoriasis No past medical history on file. Past Surgical History: Procedure Laterality Date ??? PRO ALVEOLOPLASTY W EXTRACTIONS, 4 OR MORE TEETH, PER QUADRANT N/A 09/11/2019 ALVEOPLASTY,IN CONJUNCTION WITH EXTRACTIONS,PER QUADRANT,ENT (WRVU 4.06) performed by Wesley Jacobo MD at [facility] OSC ? ? PRO DEBRIDEMENT BONE MUSCLE &/FASCIA 20 SQ CM/< Left 02/14/2021 DEBRIDEMENT SKIN, SUBCU, MUSCLE, BONE, LOWER EXTREMITY (WRVU 4.1) [facility] ? ? PRO DEBRIDEMENT SUBCUTANEOUS TISSUE 20 SQCM/< Left 02/08/2021 DEBRIDEMENT SKIN AND SUBCU, LOWER EXTREMITY (WRVU 1.01) performed by Henrry Quiñones MD at [facility] OR ? ? PRO DEBRIDEMENT SUBCUTANEOUS TISSUE 20 SQCM/< Left 02/10/2021 DEBRIDEMENT SKIN AND SUBCU, LOWER EXTREMITY (WRVU 1.01) performed by Jacobo De La Cruz MD at [facility] OR ? ? PRO DEBRIDEMENT SUBCUTANEOUS TISSUE 20 SQCM/< Left 02/12/2021 DEBRIDEMENT SKIN AND SUBCU, LOWER EXTREMITY (WRVU 1.01) performed by Sabrina Capellan MD at [facility] OR ??? PRO FUSION/GRAFT OF ELBOW JOINT Right 2017 ARTHRODESIS, ELBOW JOINT WITH AUTOGENOUS GRAFT (WRVU 14.32) performed by Christopher Correa MD at [facility] OR ??? PRO REMOVAL DEEP IMPLANT Right 2017 REMOVAL OF IMPLANT, DEEP, ELBOW (WRVU 5.96) performed by Christopher Correa MD at [facility] OR ??? PRO REMOVAL ERUPTED TOOTH WITH ELEVATION OF MUCOPERIOSTEAL FLAP Bilateral 09/11/2019 SURGICAL EXTRACTIONS REQUIRING ELEVATION OF MUCOPERIOSTEAL FLAP AND REMOVAL OF BONE OR SECTION OF TOOTH (WRVU 1.09) performed by Wesley Jacobo MD at [facility] O[facility] Social History Tobacco Use ??? Smoking status: [...] REMOVE Please contact the Blood Bank at [phone] for questions. ??? Pollen Extracts Other (See Comments) Rhinusitus ??? Trazodone Other (See Comments) Hallucination ??? Adhesive Rash Skin Rash ??? Lisinopril Other (See Comments) Cough. Medications: MAR and/or home medications have been reviewed. Physical Exam: Preprocedure Vitals Current as of 03/13/21 0810 BP: 163/72 Pulse: 97 Resp: 18 SpO2: 99 Temp: 36.7 ??C (98.1 ??F) Height: 157.5 cm (5' 2) (03/13/21) Weight: 74.3 kg (163 lb 12.8 oz) (03/13/21) BMI: 29.96 IBW: 50.1 kg (110 lb 7.8 oz) Last edited 03/13/21 0728 by SAVI Airway Assessment: Mallampati: I TM distance: >3 FB Neck ROM: full Cardiovascular Assessment: Rate: normal Pulmonary Assessment: unlabored breathing Dental Assessment: (+) edentulous Misc Assessment: IV access: PICC line Last Filed Perioperative Cognitive Screening None Anesthesia Plan: ASA 3 general, with a(n) intravenous induction 60 y/o woman with a PMH of HTN, HLD, DM, GERD chronic left ankle wound for flap coverage. GA in the past without issues. NPO. Plan for GA, ETT, PIV, arterial line. Region - Other Informed Consent: Anesthetic plan and risks discussed with patient. Plan discussed with SAFETY ENGINEER and attending. Anesthesia Screening documented in this encounter Plan of Treatment Not on file documented as of this encounter Visit Diagnoses Not on filedocumented in this encounter Administered Medications Inactive Administered Medications - up to 3 most recent administrations Medication Order MAR Action Action Date Dose Rate Site acetaminophen (Ofirmev) (1000 mg/100 mL) infusion Intravenous, Administer over 15 Minutes, PRN, Starting on Tue03/13/21 at 1529, Until Tue03/13/21 at 1642, Anesthesia Intra-op, Routine Given 03/13/2021 3:29 PM EDT 1,000 mg ceFAZolin (Ancef) 2 g in dextrose 5% 100 mL infusion 2 g, Intravenous, EVERY 8 HOURS, First dose on Tue03/13/21 at 0815, Until Discontinued, Administer over 30 Minutes, Indication for (Active or Suspected): Prophylaxis New Bag 03/16/2021 8:45 AM EDT 2 g 200 mL/hr New Bag 03/15/2021 11:39 PM EDT 2 g 200 mL/hr New Bag 03/15/2021 3:47 PM EDT 2 g 200 mL/hr electrolyte replacement solution (pH 7.4) (Normosol-R, Plasmalyte-A) infusion Intravenous, CONTINUOUS PRN, Starting on Tue03/13/21 at 1222, Until Tue03/13/21 at 1642, Anesthesia Intra-op New Bag 03/13/2021 12:22 PM EDT ePHEDrine sulfate (5 mg/mL) multi-dose injection Intravenous, PRN, Starting on Tue03/13/21 at 1220, Until Tue03/13/21 at 1642, Anesthesia Intra-op, Routine Given 03/13/2021 12:20 PM EDT 5 mg fentaNYL (pf) (50 mcg/mL) multi-dose injection Intravenous, PRN, Starting on Tue03/13/21 at 0902, Until Tue03/13/21 at 1642, Anesthesia Intra-op, Routine Given 03/13/2021 3:18 PM EDT 50 mcg Given 03/13/2021 2:13 PM EDT 50 mcg Given 03/13/2021 11:21 AM EDT 50 mcg glycopyrrolate (Robinul) (0.2 mg/mL) multi-dose injection Intravenous, PRN, Starting on Tue03/13/21 at 1614, Until Tue03/13/21 at 1642, Anesthesia Intra-op, Routine Given 03/13/2021 4:14 PM EDT 0.8 mg heparin (porcine) (1,000 units/mL) injection Intravenous, PRN, Starting on Tue03/13/21 at 1249, Until Tue03/13/21 at 1642, Anesthesia Intra-op, Routine Given 03/13/2021 12:49 PM EDT 3,000 Units indocyanine green (Ic-Green) injection Intravenous, PRN, Starting on Tue03/13/21 at 1503, Until Tue03/13/21 at 1642, Anesthesia Intra-op, Routine Given 03/13/2021 3:03 PM EDT 7.5 mg insulin lispro (HumaLOG;Admelog) (100 unit/mL) subcutaneous injection vial Subcutaneous, PRN, Starting on Tue03/13/21 at 1204, Until Tue03/13/21 at 1642, Anesthesia Intra-op, Routine Given 03/13/2021 12:04 PM EDT 2 Units insulin regular (HumuLIN R,NovoLIN R) (100 unit/mL) injection vial Intravenous, PRN, Starting on Tue03/13/21 at 1240, Until Tue03/13/21 at 1642, Anesthesia Intra-op, Routine Given 03/13/2021 12:40 PM EDT 2 Units insulin regular (Myxredlin) (1 unit/mL) in sodium chloride 0.9% 100 mL infusion Intravenous, CONTINUOUS PRN, Starting on Tue03/13/21 at 1240, Until Tue03/13/21 at 1642, Anesthesia Intra-op, Routine New Bag 03/13/2021 12:40 PM EDT 2 Units/hr 2 mL/hr lactated ringers infusion 1,000 mL, at 100 mL/hr, Intravenous, CONTINUOUS, Starting on Tue03/13/21 at 0745, Until Tue03/13/21 at 2329, Day of Surgery (Day of Procedure) New Bag 03/13/2021 8:16 AM EDT lidocaine (pf) (Xylocaine) (20 mg/mL) 2% injection syringe Intravenous, PRN, Starting on Tue03/13/21 at 0851, Until Tue03/13/21 at 1642, Anesthesia Intra-op, Routine Given 03/13/2021 8:51 AM EDT 80 mg midazolam (pf) (Versed) (1 mg/mL) multi-dose injection Intravenous, PRN, Starting on Tue03/13/21 at 0816, Until Tue03/13/21 at 1642, Anesthesia Intra-op, Routine Given 03/13/2021 8:16 AM EDT 2 mg neostigmine (Bloxiver) (1 mg/mL) injection Intravenous, PRN, Starting on Tue03/13/21 at 1614, Until Tue03/13/21 at 1642, Anesthesia Intra-op, Routine Given 03/13/2021 4:14 PM EDT 5 mg propofoL (Diprivan) 10 mg/mL bolus injection (Anesthesia) Intravenous, PRN, Starting on Tue03/13/21 at 0851, Until Tue03/13/21 at 1642, Anesthesia Intra-op Given 03/13/2021 8:51 AM EDT 130 mg propofoL (Diprivan) infusion Intravenous, CONTINUOUS PRN, Starting on Tue03/13/21 at 1011, Until Tue03/13/21 at 1642, Anesthesia Intra-op, Routine Rate/Dose Change 03/13/2021 2:13 PM EDT 15 mcg/kg/min 6.687 mL/hr Rate/Dose Change 03/13/2021 12:44 PM EDT 20 mcg/kg/min 8.9 16 mL/hr Rate/Dose Change 03/13/2021 11:14 AM EDT 25 mcg/kg/min 11. 145 mL/hr rocuronium (Zemuron) (10 mg/mL) multi-dose injection Intravenous, PRN, Starting on Tue03/13/21 at 0935, Until Tue03/13/21 at 1642, Anesthesia Intra-op, Routine Given 03/13/2021 9:35 AM EDT 20 mg Given 03/13/2021 8:51 AM EDT 30 mg vecuronium (Norcuron) injection Intravenous, PRN, Starting on Tue03/13/21 at 1102, Until Tue03/13/21 at 1642, Anesthesia Intra-op, Routine Given 03/13/2021 3:05 PM EDT 1 mg Given 03/13/2021 1:41 PM EDT 1 mg Given 03/13/2021 12:43 PM EDT 1 mg documented in this encounter Care Teams Blow Molder Relationship Specialty Start Date End Date Maryuri Evans MD [address] [place] [address] PCP - General 09/23/14 documented as of this encounter
--- OUTSIDE RECORDS SUMMARY | 2024-05-31 17:44 | XMS_ITS | Encounter Summary ---
Author Organization [facility] Address [facility] [place] [address] Care Team Providers Care Riding Silks Custodian Name Role Phone Maryuri Evans MD Primary Care Provider [phone] Reason for Visit * Consultation (Routine) - Closed Specialty Diagnoses / Procedures Referred By Contac t Referred To Contact Infectious Diseases Diagnoses Ankle abscess Wound infection complicating hardware, sequela Delfina Harris MD [facility] [place] [address] Delfina Harris MD [facility] [place] [address] Referral ID Status Reason Start Date Expiration Date V isits Requested Visits Authorized [id number] Closed Assume Subset of Care 02/18/2021 02/18/2022 1 1 Encounter Details Date Type Department Care Team (Late st Contact Info) Description 03/05/2021 4:00 PM EDT Office Visit [place] [address] Cyndy Moran APRN [facility] [place] [address] Postoperative wound infection; Other acute osteomyelitis of right ankle; Enterococcus faecalis infection; MSSA (methicillin susceptible Staphylococcus aureus) infection; assisted current use of antibiotics Social History Tobacco Use Types Packs/Day Years Used Date Smoking Tobacco: Never Smokeless Tobacco: Never Alcohol Use Standard Drinks/Week Comments No 0 (1 standard drink = 0.6 oz pur e alcohol) Sex and Gender Information Value Date Recorded Sex Assigned at Not on file Gender Identity Not on file Sexual Orientation Not on file documented as of this encounter Progress Notes * Cyndy Moran, SENIOR DIRECTOR - 03/05/2021 4:00 PM EDT .. INFECTIOUS DISEASE CLINIC - OUTPATIENT FOLLOW UP Chief Complaint: Postop Wound Infection, Osteomyelitis, Hardware Involvement s/p HW removal 02/12/2021 Microorganism(s): MSSA, Enterococcus sp. Antimicrobial Therapy: Daptomycin 700 mg IV daily History of Present Illness: Jesenia Méndez is a 60 y.o. female with PMH significant for IDDM2, R elbow fusion with serial casting, and L ankle fracture S/P ORIF at [facility] (01/21/2021) who presented to ED 02/07/2021 for RUE castproblem and L ankle pain and redness. She reported 1 week of increased pain, spreading erythema, swelling, and malodorous drainage from incision site of L lateral ankle wound from her recent ORIF of L ankle fracture. ??Initial lab work revealed leukocytosis, elevated inflammatory markers (CRP greater than 300) and XR and CT of ankle revealed Cellulitis and Abscess overlying lateral malleolus. Patient was admitted 02/07 - 02/18/2021 and was taken to the OR for irrigation and debridement of L ankle wound with wound VAC placement on 02/08, 02/10, 02/12, and 02/14/2021. Antibiotics were held preoperatively as patient was hemodynamically stable in an effort to increase yield of intraoperative cultures. Multiple cultures grew both Enterococcus as well as MSSA. ID was consulted for antibiotic guidance and management. Initially, patient was on Vancomycin but that was eventually narrowed to Daptomycin to cover both species. Patient had PICC line placed ESPERANZA 02/14/2021 and was discharged to home via OPAT program. Of note, Plastic surgery was consulted for consideration of reconstructive flap surgery and they will close inapproximately 2 wks from discharge. Patient presents today, via Telephone, for her ID interim visit to evaluate her progress and response to long-term antimicrobial therapy. A Telehealth visit was planned but patient did not have the technology to support this. ROS: Patient states she is doing, So-so. She reports nausea on a daily basis which makes it difficult to eat. She has not tried any anti-nausea medication and would like to try some. She is happy about her weight loss, going from 186 pounds down to 167.5 pounds. She also reports occasional headaches that respond well to Tylenol or ibuprofen. Patient reports that her PICC line ESPERANZA is working well andthere are no issues with medication infusion. She denies redness, swelling, pain, or discharge at the PICC site. Patient states that her L ankle, looks pretty good, and at the last dressing change appeared to be healing well. Patient denies myalgias or muscle cramping. In addition, patient: Denies fevers, chills, night sweats, dizziness Denies chest pain, palpitations Denies shortness of breath, cough Denies abdominal pain, vomiting, constipation/diarrhea Denies hematuria, dysuria Denies rash Allergies: Allergies Allergen Reactions ??? Latex Rash ??? Erythromycin Lactobionate Nausea Only ??? Metformin Nausea Only ??? Red Blood Cells Other (See Comments) Antibodies-Difficult to Crossmatch DO NOT REMOVE Please contact the Blood Bank at [phone] for questions. ??? Pollen Extracts Other (See Comments) Rhinusitus ??? Trazodone Other (See Comments) Hallucination ??? Adhesive Rash Skin Rash ??? Lisinopril Other (See Comments) Cough. Physical Exam: General: Adult female evaluated via Telephone, in no distress. Alert and oriented, pleasant Pulmonary: Non-labored respirations. No audible wheezing Neuro: Alert and oriented to person, place, time, and situation. No dysarthria Psych: Normal affect Labs: 03/02/2021: WBC = 8.76, Hb = 11.3, Plts = 214 BUN = 8, creatinine = 0.92 ALT = 12, AST = 14 CPK = 22 CRP = 73.1 Lab Results Component Value Date WBC 9.5 02/18/2021 HGB 10.5 (L) 02/18/2021 HCT 33.1 (L) 02/18/2021 MCV 90.9 02/18/2021 PLATELET 311 02/18/2021 CRP (mg/L) Date Value 02/18/2021 29.1 (H) 02/07/2021 >300.0 (H) 01/02/2021 6.6 (H) Lab Results Component Value Date NA 138 02/18/2021 K 3.8 02/18/2021 CL 104 02/18/2021 CO2 26 02/18/2021 BUN 13 02/18/2021 CREATININE 0.84 02/18/2021 GLUCOSE 221 (H) 02/18/2021 CALCIUM 9.1 02/18/2021 ESTGFR 76 02/18/2021 Lab Results Component Value Date ALT 17 02/18/2021 AST 27 02/18/2021 ALKPHOS 122 (H) 02/18/2021 BILITOT 0.2 02/18/2021 BILIDIR 0.1 02/18/2021 ALBUMIN 3.7 02/18/2021 PROT 7.0 02/18/2021 Microbiology: Reviewed 02/07-blood cultures-2 sets with no growth to date 02/08-intraoperative specimens-MSSA, Enterococcus faecalis (ampicillin-S) noted in all 3 intraoperative cultures 02/10-intraoperative specimens-MSSA, Enterococcus faecalis and 2 of 2 intraoperative cultures 02/12-intraoperative specimens-MSSA, noted in 2 of 2 intraoperative cultures (all hardware removed on 02/12) Imaging: Reviewed Assessment: Jesenia Méndez is a 60 y.o. female with a history of ORIF L ankle at [facility] 01/21/2021 complicated by skin/soft tissue infection involving hardware. She has undergone multiple debridements with total hardware removal on 02/12/2021. Intraoperative cultures were notable for MSSA and Enterococcus faecalis (Ampicillin-S). Although a regimen containing Ampicillin would be preferred for the treatment of these organisms, patient requested a simplified regimen, therefore, ID recommended once daily Daptomycin 700 mg IV for a 6 week course. Overall, except for nausea, the patient is doing well. She is willing to try Zofran 4 mg SL tid PRNand will let us know if that is not helpful. It is reassuring that she denies s/s infection (F/C, night sweats, dizziness, malaise, worsening appearance of the ankle wound, etc) and WBC = 8.76 this week. It is noted that CRP slightly bumped up to 73.1 and that is of undetermined significance. In addition, patient is tolerating IV Daptomycin well AEB no SEs and stable lab work. CPK = 22 this week.Patient has an EOT appointment with ID Fellow, Dr. Miller, 03/20/2021. ?? Plan: 1. Continue Daptomycin 700 mg IV daily 2. Continue weekly lab work: CBC w/diff, CMP, CRP, and CPK 3. Ondansetron 4 mg SL tid PRN - ordered 4. EOT visit is scheduled 5. Patient's ID Attending, Dr. Harris, apprised of above Cyndy Moran APRN, Infectious Disease 03/05/2021 2:23 PM documented in this encounter Plan of Treatment Not on file documented as of this encounter Visit Diagnoses Diagnosis Postoperative wound infection Other postoperative infection Other acute osteomyelitis of right ankle Enterococcus faecalis infection Streptococcus infection in conditions classified elsewhere and of unspecified site, group D MSSA (methicillin susceptible Staphylococcus aureus) infection Methicillin susceptible Staphylococcus aureus in conditions classified elsewhere and of unspecified site assisted current use of antibiotics Encounter for long-term (current) use of antibiotics documented in this encounter Care Teams Riding Silks Custodian Relationship Specialty Start Date End Date Maryuri Evans MD [address] [place] [address] PCP - General 09/23/14 documented as of this encounter
--- OUTSIDE RECORDS SUMMARY | 2024-05-31 17:44 | XMS_ITS | Encounter Summary ---
Author Organization [facility] Address [facility] [place] [address] Care Team Providers Care Cpa Tax Name Role Phone Maryuri Evans MD Primary Care Provider [phone] Encounter Details Date Type Department Care Team (Late st Contact Info) Description 03/04/2021 Orders [place] [address] Aydee Franklin MD [facility] [place] [address] Social History Tobacco Use Types Packs/Day Years [...] on filedocumented in this encounter Care Teams Cpa Tax Relationship Specialty Start Date End Date Maryuri Evans MD [address] [place] [address] PCP - General 09/23/14 documented as of this encounter
--- OUTSIDE RECORDS SUMMARY | 2024-05-31 17:44 | XMS_ITS | Encounter Summary ---
[place] [address] Care Team Providers Care Hand Roller Name Role Phone Maryuri Evans MD Primary Care Provider Encounter Details Date Type Department Care Team (Late st Contact Info) Description 03/03/2021 Telephone [place] [id number] Cecilia Heath Social History Tobacco Use Types Packs/Day Years [...] encounter Miscellaneous Notes * Telephone Encounter - Cecilia Heath - 03/03/2021 10:04 AM EDTSummary: Telephone message Left msg for patient to call and r/s her missed [facility] appointment with VS yesterday documented in this encounter Plan of Treatment Not on file documented as of this encounter Visit Diagnoses Not on filedocumented in this encounter Care Teams Hand Roller Relationship Specialty Start Date End Date Maryuri Evans MD [address] [place] [address] PCP - General 09/23/14 documented as of this encounter
--- OUTSIDE RECORDS SUMMARY | 2024-05-31 17:44 | XMS_ITS | Encounter Summary ---
Author Organization [facility] Address [facility] [place] [address] Care Team Providers Care Financial Services Internship Name Role Phone Maryuri Evans MD Primary Care Provider [phone] Encounter Details Date Type Department Care Team (Late st Contact Info) Description 02/18/2021 Orders [place] [address] Aydee Franklin MD [facility] [place] [address] Closed fracture of left ankle with routine healing Social History Tobacco Use Types Packs/Day Years [...] with routine healing documented in this encounter Care Teams Financial Services Internship Relationship Specialty Start Date End Date Maryuri Evans MD [address] [place], [place] [id number] PCP - General 09/23/14 documented as of this encounter
--- OUTSIDE RECORDS SUMMARY | 2024-05-31 17:44 | XMS_ITS | Encounter Summary ---
Author Organization [facility] [place] [address] Care Team Providers Care Diplomatic Interpreter/Translator Name Role Phone Maryuri Evans MD Primary Care Provider [phone] Encounter Details Date Type Department Care Team (Late st Contact Info) Description 02/18/2021 Notes [place] [address] Toño Garcia, RN Social History Tobacco Use Types Packs/Day Years Used Date Smoking Tobacco: Never Smokeless Tobacco: Never Alcohol Use Standard Drinks/Week Comments No 0 (1 standard drink = 0.6 oz pur e alcohol) Sex and Gender Information Value Date Recorded Sex Assigned at Not on file Gender Identity Not on file Sexual Orientation Not on file documented as of this encounter Progress Notes * Toño Garcia, RN - 02/18/2021 3:52 PM EDT [facility] Follow up Note: Confirmed with Tuan from [facility] that patient will be seen tomorrow at 1400 hours Hospital teaching occurred today with patient and father. [facility] [phone] documented in this encounter Plan of Treatment Not on file documented as of this encounter Visit Diagnoses Not on filedocumented in this encounter Care Teams Diplomatic Interpreter/Translator Relationship Specialty Start Date End Date Maryuri Evans MD [address] [place], [place] [address] PCP - General 09/23/14 documented as of this encounter
--- OUTSIDE RECORDS SUMMARY | 2024-05-31 17:45 | XMS_ITS | Encounter Summary ---
Author Organization [facility] Address [facility] [place] [address] Care Team Providers Care Desulfurizer Hand Name Role Phone Maryuri Evans MD Primary Care Provider [phone] Reason for Referral * Consultation (Routine) - Closed Specialty Diagnoses / Procedures Referred By Contac t Referred To Contact Infectious Diseases Diagnoses Ankle abscess Wound infection complicating hardware, sequela Delfina Harris MD [facility] [place] [address] Delfina Harris MD [facility] [place] [address] Referral ID Status Reason Start Date Expiration Date V isits Requested Visits Authorized [id number] Closed Assume Subset of Care 02/18/2021 02/18/2022 1 1 Reason for Visit * Reason Comments Cast Problem * Auth/Cert Specialty Diagnoses / Procedures Referred By Contac t Referred To Contact Diagnoses Abscess of ankle Ankle abscess Procedures Emergency IPI Referral ID Status Reason Start Date Expiration Date Visits Re quested Visits Authorized [id number] 1 1 Encounter Details Date Type Department Care Team (Latest Contact Info) Description 02/07/2021 2:40 PM EDT - 02/18/2021 7:01 PM EDT Hospital Encounter 1 [place] [id number] [place] [address] [place] [address] [place] [address] Ankle abscess (Primary Dx); Abscess of ankle; S/P Left ankle I&D for abscess and wound dehiscence, 02/08/21 (Dr Quiñones) and 02/10/21 (Dr De La Cruz); 02/12 + 02/14 ( Dr. Capellan); Wound infection after surgery; Wound infection complicating hardware, sequela; Closed fracture of left ankle with routine healing Discharge Disposition: Home Social History Tobacco Use [...] Sign Reading Time Taken Comments Blood Pressure 136/72 02/18/2021 3:51 PM EDT Pulse 73 02/17/2021 3:28 AM EDT Temperature 36.8 ??C (98.2 ??F) 02/18/2021 3:51 PM ED T Respiratory Rate 17 02/18/2021 3:51 PM EDT Oxygen Saturation 94% 02/18/2021 11:15 AM EDT Inhaled Oxygen Concentration - - Weight 83 kg (183 lb) 02/07/2021 2:38 PM EDT Height 157.5 cm (5' 2) 02/07/2021 2:38 PM EDT Body Mass Index 33.47 02/07/2021 2:38 PM EDT documented in this encounter Discharge Summaries * Cami Ugarte APRN - 02/18/2021 7:40 AM EDT Discharge Summary Patient Name: Jesenia Méndez Patient Age: 60 y.o. Language: Comoran Race: White Ethnicity: Not nor Admit date: 02/07/2021 Discharge date and time: 02/18/2021 Attending Physician: uYnior Rodriguez DO Discharge Physician: Cami Ugarte APRN Follow-up Recommendations for Providers: - Daptomycin Duration: 700mg IV daily 02/12- 03/26. - LUE PICC placed 02/14: Single lumen L basilic vein - Discharged w/ LLE wound vac and 3x/wk vac changes by VNA - Plastics to perform closure in ~2wks--they will call to schedule - S/p 3 OR debridements/wound vac exchanges, one bedside debridement/vac exchange (last 02/14) by orthopedics - Strict non-weight bearing on LLE at all times - Will have home VNA/PT/OT - To remain in RUE bivalve cast through ~03/18. Non-weight bearing - Recommend further workup of bone density given recurrent fractures - Vitamin D 43 (02/09) - Has never had Dexa - Plastics recommending CT angiogram--to be scheduled as outpatient next week. They will place order and call patient to arrange. Inpatient Provider Contact Information: For questions regarding this document or issues relating to this hospitalization on the Medical Service, please contact your inpatient physician through the [facility] Service Worker Helper . Issues afterhours and on weekends will be handled by the Hospitalist staff on-call. Discharge Diagnoses (Hospital Problems) and Secondary Diagnoses (Chronic Problems): Active Hospital Problems Diagnosis ? ? S/P Left ankle I&D for abscess and wound dehiscence, 02/08/21 (Dr Quiñones) and 02/10/21 (Abdirahman); 02/12 + 02/14 ( Dr. Capellan) Resolved Hospital Problems No resolved problems to display. Active Non-Hospital Problems Diagnosis ??? Closed fracture of left ankle with routine healing ??? H/O insulin dependent diabetes mellitus ??? H/O: depression ??? Hypothyroidism ??? h/o chronic headaches ??? Closed fracture of shaft of right ulna with known elbow arthrodesis RIGHT ??? Chronic pain in left shoulder ??? S/P R elbow fusion on 12/14/17 [place]rea ??? Psoriasis Operations/Major Procedures: Operations: Procedure(s): DEBRIDEMENT SKIN, SUBCU, MUSCLE, BONE, LOWER EXTREMITY (WRVU 4.1) 02/14/2021 Procedure(s): DEBRIDEMENT SKIN, SUBCU, MUSCLE, BONE, LOWER EXTREMITY (WRVU 4.1) 02/14/2021 Procedure(s): DEBRIDEMENT SKIN, SUBCU, MUSCLE, BONE, LOWER EXTREMITY (WRVU 4.1) 02/14/2021 Procedure(s): DEBRIDEMENT SKIN, SUBCU, MUSCLE, BONE, LOWER EXTREMITY (WRVU 4.1) 02/14/2021 Other Major Procedures: none History of Presentation: Jesenia Méndez is a 60 y.o. female with past medical history of diabetes, hypothyroidism, depression, psoriasis, chronic headaches, presenting with complaints of left ankle swelling, pain and purulent drainage. ?? Ms Méndez recently underwent open reduction and internal fixation on January 21, 2021 at [facility] for left ankle fracture that she suffered from a fall on January 11, 2021. She reports that the purulent drainage started on the day of surgery and has been slowly getting worse. From orthopedic team's documentation, it appears that she was managed in a splint initially, and wastransitioned to the walking boot on February 03, 2021 when she saw her orthopedic surgeon Dr Donald in the clinic. During the visit, she had endorsed numbness and tingling at the dorsum of her foot, but the notes did not indicate any drainage or significant erythema at that time. There was a concern that she was putting weight on the leg against her surgeon's advice, and there was a risk for eventual wound breakdown. Patient reports that she was having drainage at the time of this visit and was told that this was something expected. She has continued to have more erythema, pain and drainage, and also felt warm and had chills earlier today, that made her concerned enough to present to the ED. In the ED, she also reported pain in her right upper extremity. She is being managed in a long-arm cast for right periprosthetic ulnar fracture just distal to her elbow fusion plate, and had cast exchange done at [facility] Ortho clinic yesterday. She reported that her cast felt tight and she was having decreased sensation in her right hand. ?? Her CRP was found to be more than 300. Orthopedic team was consulted who bivalved her current rightupper extremity cast resulting in significant improvement in her symptoms in the right hand. CT scan of the left ankle was obtained that showed left lower extremity cellulitis extending from the distal tibia and fibula to the foot, with small abscess at the lateral malleolus. Orthopedic team is planning to take her to the OR tomorrow morning for irrigation and debridement with likely application of wound VAC. To increase yield of perioperative cultures, they have suggested to hold off on antibiotics unless she becomes hemodynamically unstable. There have recommended admission to hospital medicine for better control of her blood sugar. She is a nondiabetic and her blood sugar in the ED was 315. She did not take her dose of Victoza today. She did take the dose of Lantus 25 units last night. ?? No report of recent cough, dyspnea, chest pain, abdominal pain, nausea, vomiting, diarrhea, constipation, dysuria. Hospital Course: #LLE cellulitis and abscess #LLE MSSA & Enterococcus cellulitis and abscess: Patient taken to the operating room via orthopaedic surgery. I&D, wound debridement and wound vac placement completed multiple times, last was bedside vac change on 02/14. Multiple cultures from each trip to OR grew both enterococcus as well as MSSA (eventually only growing MSSA). Patient initially only on vancomycin but after discussion with nephrology eventually narrowed to daptomycin to cover both species. Antibiotics to be completed by 03/26. Plastic surgery consulted for consideration of reconstructive flap surgery--they will close in approximately 2wks from discharge, will call patientto schedule. Pain control completed with both scheduled Tylenol and oxycodone as needed. PICC placed in E on 02/14. OPAT/ID to follow as outpatient. Will discharge with close VNA follow up for woundvac changes, wound care, nursing, PT and OT. Multiple recent fractures from different falls (mechanical), vitamin D WNL, would recommend further workup and possible DEXA scan. ?? #Right upper extremity fracture, currently in cast: Patient placed in bivalved cast. Symptoms of fracture significantly improved with this intervention. Patient is non-weight bearing with this extremity until re-evaluated by outpatient orthopaedics. To remain strict NWB in cast until approximately 03/18, will continue to be followed by orthopedics outpatient. ?? #Diabetes: Noted to have elevated blood sugars during hospitalization. Lantus and insulin regimen titrated as needed for better glucose control during hospitalization. Continued to encourage compliance with diabetic diet. Counseled on importance of good blood sugar control in setting of infection. Discharged on 20units lantus, change from prior home dose. #HTN Continued home losartan. #Hypothyroidism Continued home levothyroxine #Depression #Anxiety Continued home sertraline and wellbutrin. Vital Signs at Discharge: BP: 136/72, Heart Rate: 73, Temp: 36.8 ??C (98.2 ??F), Resp: 17, BMI (Calculated): 33.47 Height: 157.5 cm (5' 2) (02/07/21 143) Weight: 83 kg (183 lb) (02/07/21 143) Functional and Cognitive Status: Needs help with ADLs and movement given strict non-weight bearing status to RUE and LLE. Did clear PT and OT to discharge to home w/ VNA, home support. Verbalized understanding of importance of maintaining NWB status of injured limbs. Important Studies and Lab Data: Labs: Last wbc, hgb, hct plt Recent Labs 02/18/21 0610 WBC 9.5 HGB 10.5* HCT 33.1* Last 3 wbc, hgb, hct plt Recent Labs 02/18/21 0610 02/17/21 0410 02/16/21 0353 WBC 9.5 8.9 9.6* HGB 10.5* 10.0* 9.8* HCT 33.1* 30.9* 30.3* PLATELET 311 305 263 Last 3 Lytes Recent Labs 02/18/21 0610 02/17/21 0410 02/16/21 0353 NA 138 143 143 K 3.8 3.7 3.6 CL 104 109* 109* CO2 26 27 26 BUN 13 11 10 CREATININE 0.84 0.82 0.79 Last 3 LFTs Recent Labs 02/18/21 1035 AST 27 ALT 17 ALKPHOS 122* BILITOT 0.2 BILIDIR 0.1 Last Ca, Mg, Phos Recent Labs 02/18/21 0610 CALCIUM 9.1 PHOS 3.4 MAGNESIUM 0.96 Last 3 Coags No results for input(s): PT, INR, PTT in the last 168 hours. Last 3 ProBNP, Trop, CK Recent Labs 02/17/21 0410 02/14/212012 CK <20 <20 Last 3 TFT No results for input(s): TSH in the last 7068 hours. Invalid input(s): T4, FT4 Last 3 Lipids No results for input(s): CHLPL, HDL, LDLCHOL, LDLDIRECT, TRIG in the last 7068 hours. Last 3 HgbA1C Recent Labs 02/08/21 0319 HA1C 7.9* Last CRP, SEDRATE Recent Labs 02/18/21 0610 02/07/21 1503 CRP 29.1* >300.0* SEDRATE -- 58* Last 3 CBC Recent Labs 02/18/21 0610 02/17/21 0410 02/16/21 0353 WBC 9.5 8.9 9.6* Studies: Results for orders placed or performed during the hospital encounter of 02/07/21 XR Ankle Min 3 views Left (Generic) (Exam End: 02/07/2021 3:33 PM) Impression Apparent incision and drainage laterally adjacent to open reduction internal fixation of the distal fibula. Lucency about the I and D site. Hardware appears grossly unremarkable. There is mottled gas in the soft tissues and induration of the soft tissues. Plantar spurring. CT may be useful to better assess the soft tissues relative to the osseous structures and internal. Thank you for letting us participate in the care of this patient. If you are a health care provider and have any questions regarding this report, please contact the number below. For patients who have questions please contact the health day care supervisor that requested your imaging first. Electronically signed by: Anthony Carrillo MD, [facility] ([phone]), at 02/07/2021 3:[address] Lower Extremity w Contrast Left (Exam End: 02/07/2021 5:51 PM) Impression Left lower extremity cellulitis extending from the distal tibia and fibula to the foot, with small abscess at the lateral malleolus. Thank you for letting us participate in the care of this patient. If you are a health care provider and have any questions regarding this report, please contact the number below. For patients who have questions please contact the health day care supervisor that requested your imaging first. Electronically signed by: Meli Gonzales MD, [facility] ([phone]), at 02/07/2021 6:17 PM XR Ankle Min 3 views Left (Generic) (Exam End: 02/13/2021 12:50 PM) Impression Status post removal of lateral fibula plate and screw fixation construct and transsyndesmotic screws. Thank you for letting us participate in the care of this patient. If you are a health care provider and have any questions regarding this report, please contact the number below. For patients who have questions please contact the health day care supervisor that requested your imaging first. Electronically signed by: Christian Leon MD, [facility] ([phone]), at 02/14/2021 2:58 AM XR PICC Placement Over 5 Years with Imaging Guidance (IV Team) (Exam End: 02/14/2021 9:20 AM) Impression Left-sided PICC with catheter tip projected at the cavoatrial junction. Thank you for letting us participate in the care of this patient. If you are a health care provider and have any questions regarding this report, please contact the number below. For patients who have questions please contact the health day care supervisor that requested your imaging first. Electronically signed by: BLAZE SALEEM MD, [facility] ([phone]), at 02/14/2021 9:[address] Angiogram Lower Extremity Left (Generic) (Exam End: 02/16/2021 4:00 PM) Impression 1. Interval removal of ORIF hardware from the distal left tibia and fibula. 2. Surrounding inflammation and overlying skin thickening without drainable fluid collection. 3. Nonvisualized distal peroneal arteries. Patent anterior/posterior tibial arteries, dorsalis pedis and plantar arteries. Thank you for letting us participate in the care of this patient. If you are a health care provider and have any questions regarding this report, please contact the number below. For patients who have questions please contact the health day care supervisor that requested your imaging first. Electronically signed by: David Unger MD, [facility] ([phone]), at 02/16/2021 4:46 PM Pending Studies and Lab Data: None Discharge Conditions/Prognosis: Stable/fair Discharge to: Home w/ OPAT, VNA Updated Allergies/ADRs: Allergies Allergen Reactions ??? Latex Rash ??? Erythromycin Lactobionate Nausea Only ??? Metformin Nausea Only ??? Red Blood Cells Other (See Comments) Antibodies-Difficult to Crossmatch DO NOT REMOVE Please contact the Blood Bank at [phone] for questions. ??? Pollen Extracts Other (See Comments) Rhinusitus ??? Trazodone Other (See Comments) Hallucination ??? Adhesive Rash Skin Rash ??? Lisinopril Other (See Comments) Cough. Immunizations Given this Hospitalization: Immunization History Administered Date(s) Administered ??? Influenza Vaccine, Whole 06/16/2008 Discharge Medications: Your Medications New Medications Dose Details DAPTOmycin 500 mg Solr Commonly known as: Cubicin Inject 700 mg into the vein daily for 35 days. Start taking on: February 19, 2021 700 mg Quantity: 46 each Refills: 0 oxyCODONE 5 mg Tab Commonly known as: Roxicodone Take 1 tablet by mouth every 4 hours as needed for Pain (Pain >7/10 not improved w/ non-narcoticoptions). 5 mg Quantity: 12 tablet Refills: 0 polyethylene glycoL 17 gram Pwpk Commonly known as: Miralax Take 17 g by mouth daily. Hold for loose stools please! Thanks! Start taking on: February 19, 2021 17 g Quantity: 30 each Refills: 0 senna-docusate 8.6-50 mg Tab Commonly known as: Pericolace Take 2 tablets by mouth 2 times daily. Hold for loose stools please! Thanks! 2 tablet Quantity: 120 tablet Refills: 0 Continued medications with new dosing Dose Details acetaminophen 500 mg Tab Commonly known as: Tylenol Take 2 tablets by mouth every 8 hours. What changed: ?? when to take this ?? reasons to take this 1,000 mg Quantity: 180 tablet Refills: 0 aspirin EC 81 mg Tbec Take 1 tablet by mouth 2 times daily for 30 days. (after 30 days, or when instructed by orthopedics, resume once daily dosing) What changed: ?? how much to take ?? when to take this ?? additional instructions 81 mg Quantity: 60 tablet Refills: 0 cyclobenzaprine 5 mg Tab Commonly known as: Flexeril Three times daily as needed for muscle spasms What changed: See the new instructions. Quantity: 30 tablet Refills: 0 Lantus Solostar U-100 Insulin 100 unit/mL (3 mL) pen Inject 20 Units subcutaneously nightly. Generic drug: insulin glargine What changed: ?? how much to take ?? Another medication with the same name was removed. Continue taking this medication, and follow the directions you see here. 20 Units Quantity: 1 vial Refills: 3 Continued medications, unchanged Dose Details buPROPion XL 150 mg Tablet Extended Release 24 hr Commonly known as: Wellbutrin XL Take 150 mg by mouth every morning. 150 mg Refills: 0 CALCIUM 500 ORAL Take by mouth. Refills: 0 folic acid 1 mg Tab [...] BY MOUTH TWICE A DAY Refills: 0 levothyroxine 50 mcg Tab Commonly known as: Synthroid daily. Refills: 0 losartan 50 mg Tab Commonly known as: Cozaar Take 25 mg by mouth daily. Take 1/2 tablet a day 25 mg Refills: 0 multivitamin Tab Commonly known as: THERAGRAN Take 1 tablet by mouth daily. 1 tablet Refills: 0 Elizabeth Pen Needle 32 gauge x Ndle USE 1 PEN NEEDLE ONCE DAILY AT BEDTIME Generic drug: insulin needles (disposable) Refills: 0 OneTouch Delica Plus Lancet 30 [...] by mouth daily. 1 tablet Refills: 3 sertraline 100 mg Tab Commonly known as: ZOLOFT Take 2 tablets by mouth daily. 2 tablet Refills: 3 topiramate 100 mg Tab Commonly known as: Topamax TAKE ONE TABLET BY MOUTH TWICE A DAY Refills: 3 Victoza 2-Terrance 0.6 mg/0.1 mL (18 mg/3 mL) Pnij INJECT 0.6MG SUBCUTANEOUSLY DAILY FOR 1 WEEK THEN 1.2MG DAILY Generic drug: liraglutide Refills: 0 STOPPED Medications hydrOXYzine 25 mg Tab Commonly known as: Atarax naproxen 500 mg Tab Commonly known as: NAPROSYN zolpidem 10 mg Tab Commonly known as: AMBIEN Smoking Status at Discharge: Social History Tobacco Use Smoking Status Never Smoker Smokeless Tobacco Never Used Instructions Given to Patient at Discharge: Patient Instructions Instructions on Discharge to Home Why you were hospitalized: infected hardware of L ankle needing wound vac, multiple debridements, and prison IV antibiotics Specific instructions related to your condition: Strict NON WEIGHT BEARING: Right upper extremity and Left lower extremity Call your doctor or seek medical attention if you develop the following - chest pain, shortness of breath, fever, cough, weakness in an arm or leg Activity level: no restrictions Diet: no change in previous diet Driving: as before hospitalization. Please do not drive while on narcotics. Shower/Bath: permitted Wound Care: Wound vac as ordered. Home oxygen therapy: n/a Changes in Your Medications (see discharge med list for full instructions): New Medications: - antibiotic IV for your ankle hardware infection - narcotic pain medication. Take only as needed, take as little as possible, dispose of carefully, as for help if you feel you are becoming addicted/dependent - bowel meds Medication dose changes: - aspirin - flexeril/cyclobenzaprine - tylenol/acetaminopen - lantus/glargine Stop these medications: - naproxen/naprosyn - ambien/zolpidem Follow-up: Future Appointments Date Time Provider Department Center 03/05/2021 4:00 PM Cyndy Moran APRN [facility] 03/20/2021 9:00 AM Juani Miller DO [facility] 03/20/2021 1:00 PM [facility]A [facility] 03/20/2021 1:30 PM [facility] DX ROOM 3 [facility] 03/20/2021 2:20 PM Dorina Campbell APRN [facility] Your Inpatient Doctor: MARK CHAVEZ NAYLA MATHEW, ROBERT K Your Primary Care Provider: Maryuri Evans MD For questions regarding this document or issues relating to this hospitalization on the Medical Service, please contact your inpatient physician through the [facility] Service Worker Helper . Issues afterhours and on weekends will be handled by the Hospitalist staff on-call. General Instructions None Future Appointments and Orders Future Appointments and Orders Future Appointments Provider Department Dept Phone 03/05/2021 4:00 PM Cyndy Moran APRN Infectious Disease at [facility] Arrive at: [facility] [phone] 03/20/2021 9:00 AM Juani Miller DO Infectious Disease at [facility] Arrive at: [facility] [phone] 03/20/2021 1:00 PM CAST ROOM 3A Orthopaedics at [facility] Arrive at: [facility] [phone] 03/20/2021 1:30 PM [facility] DX ROOM 3 XRay at [facility] Arrive at: [facility] [phone] Please go to [facility] 3T ([place] Location). 03/20/2021 2:20 PM Dorina Campbell APRN Orthopaedics at [facility] Arrive at: [facility] [phone] Future Orders Complete By Expires Full code [COD2 Custom] As directed Process Instructions: 1. Completing this order indicates that the recording provider had a discussion with the patient and/or their agent regarding their wishes for resuscitation. 2. If the patient does not have decision making capacity, the provider must document within the order and in the contemporaneous progress note which of the patient's agents the discussion was held with. 3. If this Full Code Order is a revocation or cancellation of a previous DNR order and the providerrecording this order in the system is not the Attending of Record, then the recording provider willhave discussed this order with the Attending of Record and is documenting the decision of the Attending of Record obtained through explicit verbal review. Scheduling Instructions: Questions: Does patient have capacity to make decision: Yes Content of discussion: OPAT: Order / Recommendation for Post Discharge IV Antibiotic Management [ZNM685 CPT(R)] As directed Process Instructions: If no progress note charted, please enter Clinical details in comments. Scheduling Instructions: Comments: Please Fax all results to: OPAT Program Infectious Disease Section [facility], [place] [address] FAX: After hours, please contact the Infectious Disease Physician carbonating stone cleaner at . If this order was signed greater than 72 hours prior to [facility] discharge, please call to confirm the accuracy [...] Saline then 3 ml heparin (10 units/ml) halfway for medication administration/line supply and catheter care/maintenance authorized. PICC Dressing Change [...] Tuesday and PRN and fax results to OPAT at [phone]. Please see OPAT order for lab draw details. Please have RN visit for IV ABX teaching and ongoing assessment. Questions: ID Diagnosis: Wound infection of left ankle, osteomyelitis + hardware infection, post-op wound infection with hardware removal on 02/12 and possible underlying bone infection Microorganisms being treated: MSSA, Enterococcus species Antibiotic Allergies: Erythromycin Lactobionate Antibiotic: Daptomycin 700mg IV Q24h Special Instructions: Start date: 02/12/2021 Anticipated stop date: 03/26/2021 Labs: Q Tuesday: CBC/Diff, CMP Q Tuesday Inflammatory CRP Q Tuesday CPK Last documented weight (kg): 83 kg (183 lb) Last documented height (cm): 157.5 cm (5' 2) Infectious Disease Attending: Delfina Harris MD Referral to Home Health - at DISCHARGE [XTZ7846 CPT(R)] As directed Process Instructions: Scheduling Instructions: Comments: DOCUMENTATION FOR VNA SERVICES (INCLUDING THOSE PATIENTS WITH MEDICARE COVERAGE REQUIRING HOME VNA SERVICES AND/OR HOSPICE SERVICES) PATIENT'S LOCATION: Jesenia Méndez [address] [facility] [id number] Inserting Machine Operator's Name: Patient & family In discussion with the attending physician, it is certified that this patient is under their care and that they, or a Nurse Practitioner,Clinical Nurse specialist or Physician Quality Control Auditor who is working directly with them, had a face to face encounter that meets the physician face to face encounter requirements with this patient on 02/18/2021 The encounter with the patient was in whole, or in part, for the following medical condition, whichis the primary reason for home health care services: 60 y.o. female 2 Days Post-Op s/p L ankle I&D. Doing well post-operatively. Wound vac to suction. Intra-op cxs growing staph and enterococcus,appreciate recs per ID. Plan for return to OR today for repeat I&D w/ possible closure In discussion with the provider, it is certified that, based on their findings, the following services are medically necessary for home health services. To provide the following care/treatments with the clinical findings supporting the need for services as follows: HOME CARE ORDERS: RN ORDERS:Assess wound or incision, vital signs, cardiopulmonary status, nutrition, hydration, elimination, meds effectiveness and management; reinforce education re health issues PT ORDERS: Continue rehab for endurance, gait stability and strength with mobility and transfers. Home safety evaluation. Home exercise program if appropriate. OT: assess and continue rehab for managing ADL's. PATIENT SERVICES CLERK: assist with ADLs as directed by RN HOME HEALTH CARE AGENCY: [facility] Ethics Resource Group [facility]. PHONE: [phone] FAX: [phone] Start of care: 24-48 hours of discharge Please note that any additional orders needs or changes will need to be obtained from this patient's PCP: Maryuri Evans MD [address] / [facility] [address] All VNA agencies which cover the area of patient's residence have been reviewed, either verbally jeaneth writing, and patient/family have chosen the home health care agency noted Questions: Agency name and contact information: [facility] Patient location post discharge: Home What services are requested: Registered Nurse Physical Therapy Occupational Therapy Home Health Aide Start date: Responsible MD post discharge contact info: PCP Walker rolling [EQ134 Custom] As directed Process Instructions: Scheduling Instructions: Comments: Jesenia Méndez [address] [facility] [address] [place] [phone] Diagnosis: Left ankle I&D for abscess and wound dehiscence and deconditioning with Unsteady gait Significant weakness, ataxia or gait abnormality Patient's: Hgt: Ht Readings from Last 1 Encounters: 02/07/21 : 157.5 cm (5' 2) ? 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 Please do not drive while on narcotics. Shower/Bath: permitted Wound Care: Wound vac as ordered. Home oxygen therapy: n/a Changes in Your Medications (see discharge med list for full instructions): New Medications: - antibiotic IV for your ankle hardware infection - narcotic pain medication. Take only as needed, take as little as possible, dispose of carefully, as for help if you feel you are becoming addicted/dependent - bowel meds Medication dose changes: - aspirin - flexeril/cyclobenzaprine - tylenol/acetaminopen - lantus/glargine Stop these medications: - naproxen/naprosyn - ambien/zolpidem Follow-up: Future Appointments Date Time Provider Department Center 03/05/2021 4:00 PM Cyndy Moran APRN [facility] 03/20/2021 9:00 AM Juani Miller DO [facility] 03/20/2021 1:00 PM CAST ROOM 3A [facility] 03/20/2021 1:30 PM [facility] DX ROOM 3 [facility] Xray [facility] Rad 03/20/2021 2:20 PM Dorina Campbell APRN [facility] Your Inpatient Doctor: MARK CHAVEZ NAYLA MATHEW, ROBERT K Your Primary Care Provider: Maryuri Evans MD For questions regarding this document or issues relating to this hospitalization on the Medical Service, please contact your inpatient physician through the [facility] Service Worker Helper . Issues afterhours and on weekends will be handled by the Hospitalist staff on-call. * Attachments The following attachments cannot be sent through Care Everywhere. * ORIF (Open Reduction With Internal Fixation): Post-op (Comoran) documented in this encounter Medications at Time [...] chloride 0.9%) Parenteral Solution 02/03/2021 12/31/19 22 DAPTOmycin (Cubicin) 500 mg Recon Soln Inject [...] stools please! Thanks! 120 tablet 02/18/2021 05/25/2021 oxyCODONE (Roxicodone) 5 mg Tablet Take 1 tablet by mouth every 4 hours as needed for Pain (Pain >7/10 not improved w/ non-narcotic options). 12 tablet 02/18/2021 03/09/2021 buPROPion XL (Wellbutrin XL) 150 mg Tablet [...] as of this encounter Progress Notes * Jacqui Lo RN - 02/18/2021 4:06 PM Lizbeth: SHANTAL Progress Note CARE MANAGEMENT FINAL DISCHARGE NOTE Chart reviewed, care reviewed with primary team and at interdisciplinary rounds. Patient is medically ready for discharge. Needs for Transition of Care Plan for discharge is: Agency Referrals: 1. [facility]- ref done & order pended-VNA confirmed for tomorrow 2. [facility]- ref done- waiting on OPAT orders- Daptomycin daily- teach done by [facility] 3. [facility]- patient will require a wound vac at discharge. VAC approved, stores called for Home VAC to be delivered to floor. 3. [facility]- walker with right platform Transportation: Car with father Functional status prior to admission: Home Environment: . . to be assessed. Current Functional Ability: SBA with walker Current DME: unable to assess DME Needed at DC: walker with a right platform Patient is insured through: Primary Insurance: [place]ID [place] Payor: [place] / Plan: [place] PRIMARY CARE PLUS / Product Type: *No Product type* / Secondary Insurance: N/A Prescription Coverage: YES Preferred Pharmacy: [facility] [place], [place] - [address] [place] [id number] This plan was formulated with input from patient, father and team. All are in agreement with plan. Jacqui Lo RN Case [place] Hand of Care Management Pager: [phone] Ext: [phone] * Jacqui Lo RN - 02/18/2021 4:00 PM EDTSummarofelia: CM Progress Note Blindstitch Lapel Padder asking RS to please place referral to: [facility] [place], [place] Patient needs a walker with a right platform. Jacqui Lo RN, BSN, MST, ACM Mold Filling Operator pager#[phone] * Kalyani Dotson RN - 02/18/2021 3:15 PM EDTSummary: OPAT teach Infectious Disease/OPAT Program Teaching Visit Met with patient and her father at the bedside to discuss discharge on IV ABX. Patient was engaged in listening to the education; the father only listened to part of it. Patient verbally agrees to the personal responsibilities, and role of the PATIENT SERVICES CLERK, of being in the OPAT program although the primary team has concerns about follow-through/compliance with medical care. This RN discussed with [facility] liaramesh Bethea about further assessing follow-through with care during their teach with the patient (I.e. physically have patient practice flushing an IV line). Patient given and reviewed OPAT package including OPAT order, PICC line care including dressing changes and labs both weekly & prn, potential issues, what they might indicate and who to contact. Reviewed roles and responsibilities of PATIENT SERVICES CLERK and infusion vendor. Contact information for ID and ortho team/clinic, PATIENT SERVICES CLERK and infusion vendor given to pt. Discussed f/u appointments in ID 5C clinic. Pt verbalized understanding. All questions answered. IV & PO ABX Medications: Daptomycin 700mg IV Q24h PATIENT SERVICES CLERK: [facility] Infusion vendor: [facility] IV Access: PICC (single lumen) Placed: 02/14 Plan: discharge on OPAT program when medically ready. * Mable Brooks OTA - 02/18/2021 1:14 PM EDT Occupational Therapy Treatment Note Treatment Number OT: 3 Patient Dx: ?? Patient Dx: Jesenia Méndez??is a 60 y.o.?female??with??PMH significant for ID T2DM, R elbow fusion with serial casting, and L ankle fracture S/P ORIF at [facility] (01/21/21)??who presented to the ED for??RUE cast problem and L ankle pain and redness. OR for ankle I and D, wound vac placement??performed by Dr. Quiñones on 02/08. Plan to return to the OR 02/10 for I&D and possible closure. ?? Past Surgical History: Procedure Laterality Date ??? PRO ALVEOLOPLASTY W EXTRACTIONS, 4 OR MORE TEETH, PER QUADRANT N/A 09/11/2019 ?? ALVEOPLASTY,IN CONJUNCTION WITH EXTRACTIONS,PER QUADRANT,ENT (WRVU 4.06) performed by Wesley Jacobo MD at [facility] ? ? PRO DEBRIDEMENT SUBCUTANEOUS TISSUE 20 SQCM/< Left 02/08/2021 ?? DEBRIDEMENT SKIN AND SUBCU, ??LOWER EXTREMITY (WRVU 1.01) performed by Henrry Quiñones MD [facility] MAIN OR ??? PRO FUSION/GRAFT OF ELBOW JOINT Right 2017 ?? ARTHRODESIS, ELBOW JOINT WITH AUTOGENOUS GRAFT (WRVU 14.32) performed by Christopher Correa MD at [facility] MAIN OR ??? PRO REMOVAL DEEP IMPLANT Right 2017 ?? REMOVAL OF IMPLANT, DEEP, ELBOW (WRVU 5.96) performed by Christopher Correa MD at [facility] MAIN OR ??? PRO REMOVAL ERUPTED TOOTH WITH ELEVATION OF MUCOPERIOSTEAL FLAP Bilateral 09/11/2019 ?? SURGICAL EXTRACTIONS REQUIRING ELEVATION OF MUCOPERIOSTEAL FLAP AND REMOVAL OF BONE OR SECTION OF TOOTH (WRVU 1.09) performed by Wesley Jacobo MD at [facility] ?? Social History: Patient lives??with her and dtr-in-law in a single level house with a ramped entrance. She has a walk in shower with both grab bars and shower chair, regular toilet, and sleeps in a flat bed.?? DME:??w/c and commode?? Baseline ADL/Mobility:??Prior to her R elbow fusion & L ankle fx pt endorsed I with all ADLs, mobility and IADLs. Prior to this admission, she requires A for a stand pivot transfer across all surfaces, A with toileting, I with sponge bathing after set up, and A dressing. Her and DIL manage all IADLs and transportation. Additionally, once set up in her w/c, she needs SBA for w/c mgmt.? Precautions/Special Considerations: Fall risk, wound vac to L foot, NWB RUE in bivalve cast, NWB LLE?? S: This cast is digging into the back of my leg RN informed O: Patient seen for skilled OT treatment, and demonstrated the following: ?? Self-care & Functional Mobility: ?? Pt supine upon arrival,father present ?? Pt doned/doffed tammie fisher with set up,vcs to manage wound vac. Pt hiked pants in bed with vcs to maintain NWB precautions ?? Discussed DME,pt reported has wc,commode,walker at home ?? Stressed the importance of safety and fall prevention ?? Pt left supine HOB elevated call correa and essentials in reach,bed alarm activated ?? Cognition: ?? Behavior / Mood: alert and cooperative ?? Alert and oriented to: person, place, time and situation ?? Follows commands: multi step and 100% of the time ?? Attention: WFL ?? Safety awareness: WFL ?? Vision: WFL ?? Endurance: Fair ?? Vitals: Stable on RA ?? Strength/ROM: LUE WFL,RLE WFL Pain: Reported pain from cast digging into back of L leg,RN informed Education: Pt/family/caregiver education ongoing regarding: Role of occupational therapy/rehabilitation, ADL, Positioning, Safety, Functional Mobility, Activity pacing/Energy conservation and Balance. Staff Communication: Patient status, treatment, and mobility recommendations discussed with nursing/other staff. ASSESSMENT: Patient participated in lower body dressing with set up supine HOB elevated. Pt managedwound vac with Min vcs. Pt verbalized understanding of all information discussed,i.e. safety and fall prevention,energy conservation techniques/pacing strategies,compensatory strategies to maintain NWB precautions with adl tasks . Pt will benefit from ongoing therapeutic interventions to achieve pt's and therapy goals Equipment needs at discharge: to be determined Anticipated Discharge Disposition: home with home health ?? Daily schedule / Staff Recommendations: Utilize upright chair position using bed features or transfer to recliner chair as appropriate with??1-2A, ambulate as tolerated Encourage participation in ADL's by providing set up A on tray table and physical assist only as needed Occupational Therapy Goals: To be achieved by??02/22/21. Patient will dress lower body??with SBA??with adaptive equipment prn. Met Patient will perform stand pivot transfer to bedside commode with SBA while maintaining WB restrictions Patient will perform all aspects of toileting with Min A and use of AE PRN?? Patient will demonstrate energy conservation principals with all ADLs indep.?? Patient will demonstrate WB precautions independently with all ADLs/mobility Patient will perform 2 grooming tasks of choice with S and set up while sitting EOB ?? Therapy Frequency (OT): 2-4 times/wk Total Minutes, Occupational Therapy: 16 (Schmx1) Pager: [phone] MARIE Thomas 02/18/2021 Occupational Therapy Rehabilitation Department * Jacqui Lo RN - 02/18/2021 10:13 AM EDTSumcorrine: SHANTAL Progress Note OFFICE OF CARE MANAGEMENT ?? Mold Filling Operator Follow-up Note ?? S/O: Discussed plan of care with Primary team and Nursing to assess continuing care and discharge needs. LOS: 11 days Primary Insurance: [place]ID [place] Secondary Insurance: N/A DECISION MAKER: Patient able to make decisions for herself. No ADs on file in [facility]. ?? Pt continues to require hospitalization for: 02/18 MAURO Almanza Progress Note: 60 y.o.??female??with past medical history of diabetes, hypothyroidism, depression, psoriasis, chronic headaches, presenting with complaints of left ankle swelling, pain, erythema??and purulent drainage after having ORIF on 01/21/2021 at [facility]. CT of the ankle showed LLEcellulitis with small abscess at the lateral malleolus.? Current referrals in place: 1. [facility]- ref done & order pended 2. [facility]- ref done- waiting on OPAT orders- Daptomycin daily 3. [facility]- patient will require a wound vac at discharge. Blindstitch Lapel Padder working with Michael @ [facility] to get this approved. ?? A: Patient medical ready for discharge home with VNA and IVABX from [facility] with support of family. Patient declining to go to rehab and insists upon going home. Team is providing as much education as possible to patient to assure that she understands her needs and follows the plan for optimal recovery. ?? P:Mold Filling Operator to follow with team and family to assist with discharge needs when patient ready fordischarge. ?? Jacqui Lo RN, Mold Filling Operator Pager #[phone] * Yunior Rodriguez DO - 02/18/2021 7:39 AM EDT HOSPITAL MEDICINE ATTENDING DAY OF DISCHARGE NOTE Patient Jesenia Méndez 1960 [id number] Physician Yunior Rodriguez DO Pager: [phone] Hospitalist Encounter Date February 19, 2021 PCP Maryuri Evans MD PCP phone [phone] Discharge diagnosis Active Hospital Problems Diagnosis ? ? S/P Left ankle I&D for abscess and wound dehiscence, 02/08/21 (Dr Quiñones) and 02/10/21 (Abdirahman); 02/12 + 02/14 ( Dr. Capellan) Resolved Hospital Problems No resolved problems to display. Secondary Issues Active Non-Hospital Problems Diagnosis ??? Closed fracture of left ankle with routine healing ??? H/O insulin dependent diabetes mellitus ??? H/O: depression ??? Hypothyroidism ??? h/o chronic headaches ??? Closed fracture of shaft of right ulna with known elbow arthrodesis RIGHT ??? Chronic pain in left shoulder ??? S/P R elbow fusion on 12/14/17 [facility] ??? Psoriasis LLE cellulitis with abscess. Treated with IV antibiotics and serial debridement. High risk of amputation if antibiotics not completed and rsk-ibxfvy-mezlboy status maintained. This risk explained to patient and father before discharge. I have personally seen and examined the patient and they are ready for discharge. I spent >30 minutes (Day of Discharge Code 66425) involved in the final examination of the patient, discussion of the hospital stay, instructions for continuing care to all relevant caregivers, and preparation of discharge records, prescriptions and referral forms. Plans Discharge to home with VNA Follow-up scheduled with Future Appointments Date Time Provider Department Center 03/02/2021 3:00 PM Aydee Franklin MD [facility] 03/05/2021 4:00 PM Cyndy Moran APRN [facility] 03/20/2021 9:00 AM Juani Miller DO [facility] 03/20/2021 1:00 PM CAST ROOM 3A [facility] 03/20/2021 1:30 PM [facility] DX ROOM 3 [facility] Xray [facility] Rad 03/20/2021 2:20 PM Dorina Campbell APRN [facility] [address] [place] [address] Please see the Discharge Summary for complete details of any medication changes and additional plans. Yunior Rodriguez DO Pager: [phone] February 19, 2021 9:54 PM * Ruben Damian MD - 02/18/2021 7:06 AM EDT Orthopaedic Surgery Progress Note Surgery/Issue: I+D/SUE L ankle Attending: Marilia Date of surgery: 02/12/2021, 02/14/21 Subjective/Events: Ms Méndez is fine this morning. Slept well. No issues overnight, no nausea or vomiting. Asked about when RUE cast off. 4 more weeks per notes, relayed. Wound VAC in place. Tolerated vac change at bedside yesterday. 02/12 intraop: MSSA Objective: Temp: [36.7 ??C (98.1 ??F)-37.2 ??C (99 ??F)] Resp: [18-20] BP: (114-148)/(58-74) Intake/Output Summary (Last 24 hours) at 02/18/2021 0706 Last data filed at 02/17/2021 2325 Gross per 24 hour Intake 375 ml Output 1400 ml Net -1025 ml Lab Results Component Value Date NA 138 02/18/2021 K 3.8 02/18/2021 CL 104 02/18/2021 CO2 26 02/18/2021 BUN 13 02/18/2021 CREATININE 0.84 02/18/2021 GLUCOSE 221 (H) 02/18/2021 CALCIUM 9.1 02/18/2021 Lab Results Component Value Date WBC 9.5 02/18/2021 HGB 10.5 (L) 02/18/2021 HCT 33.1 (L) 02/18/2021 MCV 90.9 02/18/2021 PLATELET 311 02/18/2021 Exam: General: NAD, awake/alert, responds to questions CV: RRR assessed peripherally Resp: Breathing comfortably LLE: Splint and Dressing c/d/i Decreased sensory to exposed toes, per baseline per patient Motor intact to FHL/EHL, able to wiggle other exposed toes. Brisk capillary refill distally, foot warm/well-perfused RUE: Bivalved cast, c/d/i Decreased sensation in ulnar distribution, baseline for past few weeks. Sensation intact at radial and median distributions at hand. Motor intact to shoulder abduction, finger flexion/extension Radial pulse 2+ A/P: 60 y.o. female s/p I+D/ SUE L ankle on 02/12. Doing well this morning. Plan will be for I+D andeventual flap, discussed with patient. Plan windowed cast this AM. Activity: NWB RUE in cast, NWB LLE in splint Drain: Wound vac Anticoagulation: ASA 81 mg BID for 30 days Antibiotics: dapto for staph aureus per primary Dispo: Per hospital course Follow-up: Pending hospital course Ruben Damian MD [phone] Associated attestation - Sabrina Capellan MD - 02/18/2021 11:59 AM EDT Patient seen and examined. Agree with resident note. 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 Organism(s): MSSA and Enterococcus species, Antibiotic(s) being taken: Daptomycin (700mg IV q24h) With a start date of 02/12/2021, and anticipated end date of 03/26/2021. Desired labs: CBC w/diff, CMP, CRP and CPK. Desired timing of end of therapy appointment: Week of: 03/23/2021. Other speciality appointments to coordinate with: Yes Which speciality?: Orthopedic surgery Dialysis patient?: No Imaging needed?: No * Delfina Harris MD - 02/17/2021 5:33 PM EDT INFECTIOUS DISEASE FOLLOW UP NOTE Patient ID: Jesenia Méndez Room: [address] [place] [address] Active ID Issue(s): Post-op hardware infection s/p hardware removal on 02/12 Current Antimicrobial Therapy: Daptomycin 700mg IV q24h Organisms isolated to date: 02/07-blood cultures-2 sets with no growth to date 02/08-intraoperative specimens-MSSA, Enterococcus faecalis (ampicillin-S) noted in all 3 intraoperative cultures 02/10-intraoperative specimens-MSSA, Enterococcus faecalis and 2 of 2 intraoperative cultures 02/12-intraoperative specimens-MSSA, noted in 2 of 2 intraoperative cultures (all hardware removed on 02/12) Intercurrent Events/Subjective Data: - had bedside wound VAC change today with no signs of gross purulence or infection - No fevers overnight and no leukocytosis - All labs and microbiology were reviewed Physical Exam: Last value Range last 24 hrs Temperature Temp: 36.8 ??C (98.2 ??F) Temp: [36.6 ??C (97.9 ??F)-37.1 ??C (98.8 ??F)] Heart Rate Heart Rate: 73 Heart Rate: [73-80] Blood Pressure BP: 121/60 BP: (121-148)/(58-72) Respiratory Rate Resp: 18 Resp: [16-20] SpO2 SpO2: 96 % SpO2: [94 %-97 %] I did not examine the patient today Impression: Jesenia Méndez is a 60 y.o. female with a history of ORIF left ankle at [facility] on 01/21/21 complicated by skin/soft tissue infection involving hardware. She has undergone multiple debridements with total hardware removal on 02/12. Intraoperative cultures are notable for MSSA and Enterococcus faecalis ( Ampicillin-S). Although a regimen containing Ampicillin would be preferred for the treatment of these organisms, she notes that she will be discharged home and only has her 81yo father to help her with IV antibiotics. She also has her right arm in a cast after a fall so her ability to self administer antibiotics is limited. She feels her father would be able to help her but was hoping for a simplified regimen. Taking into account her social factors, we can target the isolated organisms with a once daily Daptomycin regimen. Will plan for a 6 week course from hardware removal on 02/12. Baseline CK on 02/17 was <20. Recommendations: - Continue Daptomycin 700mg IV q24h x 6 weeks from 02/12 - OPAT intake note placed. Weekly labs for CBC, CMP, CRP, CK - Will arrange for ID clinic Follow Up This patient was discussed with ID attending Dr. Harris. Recommendations discussed with primary treating team. The Infectious Disease consult service will sign off. Do not hesitate to page ID Red team with any further questions or concerns. Marissa Aranda, DO Infectious Diseases Fellow 02/17/2021 5:34 PM ID ATTENDING I agree with assessment and recommendations above. I reviewed the data set and guided decision-making but did not re-examine the patient today. Delfina Harris MD Page [phone] All of this 25 minute visit were spent on the floor/unit in coordination of care for the patient, regarding treatment of infection as detailed in note above. * Jacqui Lo RN - 02/17/2021 4:22 PM EDTSumcorrine: SHANTAL Progress Note OFFICE OF CARE MANAGEMENT Mold Filling Operator Follow-up Note S/O: Discussed plan of care with Primary team and Nursing to assess continuing care and discharge needs. LOS: 10 days Primary Insurance: [place]ID [place] Secondary Insurance: N/A DECISION MAKER: Patient able to make decisions for herself. No ADs on file in [facility]. Pt continues to require hospitalization for: 02/17 Dr. Medrano Plastics Consult Note: 60 y.o.??female??with past medical history of diabetes, hypothyroidism, depression, psoriasis, chronic headaches, presenting with complaints of left ankle swelling, pain, erythema??and purulent drainage after having ORIF on 01/21/2021 at [facility]. CT of the ankle showed LLE cellulitis with small abscess at the lateral malleolus. She is s/p hardware removal and multiple washouts with ortho. 02/14 Dr. Cordoba ID Progress Note: 60F s/p ORIF left ankle on 01/21 complicated by SSI involving hardware. She has undergone multiple debridements with total hardware removal on 02/12. Cultures continue to grow predominantly MSSA and occasionaly enterococcus. Given susceptibilities would recommend Daptomycin for discharge. Will need 6 week course of therapy from hardware removing (end 03/26). Current referrals in place: 1. [facility]- ref done & order pended 2. [facility]- ref done- waiting on OPAT orders 3. [facility]- patient will require a wound vac at discharge. A: Patient nearing medical readiness for discharge home with VNA and IVABX from [place] with support of family. P:Mold Filling Operator to follow with team and family to assist with discharge needs when patient ready fordischarge. Jacqui Lo RN, Mold Filling Operator Pager #[phone] * Anthony Fermin MD - 02/17/2021 10:57 AM EDT 02/17/2021 Orthopaedic Surgery Brief Progress Note: Patient positioned supine in hospital bed. Wound base cleaned 1 piece of white sponge and 1 piece of black sponge cut to fit into wound base. TRAC pad??attached and set to continuous negative pressure 125mmHg without evidence of leaks. ID label placed on wound vac dressing Patient tolerated wound vac change well. Assessment of wound: Location of wound: left lateral ankle The wound bed is described as granulation tissue, bone The periwound skin is described as mild redness. Presence of undermining and tunneling is described as minimal. Wound size 7 cm length x 3 cm width x 1 cm deep NPWT 02/08/21 1026 ankle (Active) Therapy Setting (Negative Pressure Wound Therapy) continuous therapy 02/17/21 1047 Pressure Setting (Negative Pressure Wound Therapy) 125 mmHg 02/17/21 1047 Bedside Dressing Change? Yes 02/17/21 1047 White foam inserted 1 02/17/21 1047 Black foam inserted 1 02/17/21 1047 White foam removed 1 02/17/21 1047 Black foam removed 1 02/17/21 1047 Anthony Fermin MD P: [phone] Associated attestation - Sabrina Capellan MD - 02/18/2021 12:06 PM EDT Patient seen and examined. Agree with resident note. Micaela Capellan MD Department of Orthopaedics 02/18/21 * Cami Ugarte APRN - 02/17/2021 8:36 AM EDT [facility] Medicine Daily Progress Note Admit Date: 02/07/2021 Hospital Day 10 days Hospital Problems: Active Hospital Problems Diagnosis ? ? S/P Left ankle I&D for abscess and wound dehiscence, 02/08/21 (Dr Quiñones) and 02/10/21 (Abdirahman); 02/12 + 02/14 ( Dr. Capellan) Resolved Hospital Problems No resolved problems to display. Non-Hospital Problems: Active Non-Hospital Problems Diagnosis ??? Closed fracture of left ankle with routine healing ??? H/O insulin dependent diabetes mellitus ??? H/O: depression ??? Hypothyroidism ??? h/o chronic headaches ??? Closed fracture of shaft of right ulna with known elbow arthrodesis RIGHT ??? Chronic pain in left shoulder ??? S/P R elbow fusion on 12/14/17 [place] ??? Psoriasis Interval History: - Bedside vac change today - Ortho w/ no further plans for OR - Plastics w/ plan to close in 2wks - Pt continues to refuse to work w/ PT/OT - I have the stuff at home. I don't need to. - It is unclear if she was compliant with NWB status prior to admission, unlikely based on admission notes stating bottom of cast was filthy and very worn. - Continues to refuse rehab, as well - Not receptive to discussion of our concerns about healing and success of interventions if we can't be sure she will be safe at home - ID to see tomorrow for further evaluation of OPAT candidacy - continue on Dapto x6wks for now Assessment & Plan: 60 y.o. female with past medical history of diabetes, hypothyroidism, depression, psoriasis, chronic headaches, presenting with complaints of left ankle swelling, pain, erythema and purulent drainageafter having ORIF on 01/21/2021 at [facility]. CT of the ankle showed LLE cellulitis with small abscess at the lateral malleolus. As above. We continue to encourage Jesenia to engage in her care and recovery, she remains reluctant to do so and reports not liking being told what to do all the time. Her sugars are somewhat bettercontrolled today, which is reassuring. Ortho w/ no plans for OR before closure w/ plastics in 2wks.Ok per ortho and plastics to send pt home w/ 3x/wk wound vac change until closure. She will also need OPAT and strict adherence to NWB on RUE and LLE. She reports being worried about her father as she states she cares for him. Hopeful tomorrow we can continue to work on a safe dispo plan that Duy agree to whether that's at home or a facility to give her the best chance at a full recovery. #LLE MSSA & Enterococcus cellulitis and abscess: -Following recent ORIF at [facility] s/p mechanical fall w/ fracture -Reported noncompliance with weight bearing instructions etc could have contributed. -Recurrent washouts with wound vac in place. - NWB LLE - wound culture showing Enterococcus & MSSA (only MSSA most recent cultures). - Narrowed to daptomycin starting today. -ID to put in OPAT note - vitamin D WNL -Elevate left leg -Pain control with Tylenol, lidoderm, po oxy -Plastic surgery consulted by orthopaedics for possible reconstructive flap. ?? #Right upper extremity fracture, currently in cast: -Patient feeling better with bivalved cast. We will engage orthopedic team if develops recurrent symptoms. -Elevate right upper extremity - NWB RUE - occurred 1wk before ankle fracture, also due to mechanical fall ?? #Diabetes: - continue nightly 25units lantus home dose - SSI - did not take home victoza on day of presentation - A1C on 02/07 = 7.9 - has variable blood sugars #HTN - continue home losartan #hypothyroidism - continue home levothyroxine #Depression #anxiety - wellbutrin, sertraline home meds?? Diet CHO1 IV Access PIV mIVF Tubes/Drains Wound vac GI prophylaxis Home ppi DVT prophylaxis Lovenox PT/OT/CUTTER AND PASTER PRESS CLIPPINGS PT/OT Wound Care Anticipated Disposition TBD Code Status Attempt Cardiopulmonary Resuscitation - Inpatient Team Pager ( coverage 14/03) [phone] PCP Maryuri Evans MD Family Update Family updated @ bedside 02/15 ROS: Denies f/c/n/v/d/con, CP, SOB, abd pain, n/t, arm pain, leg pain Endorses dry mouth Vital Signs: Last 24 hrs Temperature Temp: [36.6 ??C (97.9 ??F)-37.1 ??C (98.8 ??F)] Heart Rate Heart Rate: [73-79] Blood Pressure BP: (121-148)/(58-72) Respiratory Rate Resp: [16-20] SpO2 SpO2: [95 %-97 %] BMI: Weight: 83 kg (183 lb) (02/07/21 1438) BMI (Calculated): 33.47 BMI Classification: Obese Intake & Output: Intake/Output Summary (Last 24 hours) at 02/17/20212008 Last data filed at 02/17/2021 1900 Gross per 24 hour Intake 570 ml Output 2100 ml Net -1530 ml Estimated Creatinine Clearance: 73.8 mL/min (based on SCr of 0.82 mg/dL). Physical Exam: GENERAL: A&Ox4, awake, not in acute distress, calm, cooperative, appears older than chronologicage, obese, sitting up in bed eating lunch HEENT: PERRLA CHEST: RRR LUNGS: LSCTAB, no W/R/R, no respiratory distress, on room air ABDOMEN: NABS, soft, non-tender, non-distended, no rebound, no guarding, resonant EXTREMITIES/MSK: pulses full and equal, good CSM RUE and LLE, no edema LLE: wound vac in place, lower leg wound vac dressing CDI, strong pedal pulse, sensation RUE: in full arm bivalve cast w/o significant edema, good sensation SKIN: warm, dry, intact, no rashes/lesions/erythema NEURO: No focal deficit, CN grossly intact, spontaneously moves all extremities PSYCH: normal affect, normal mood, normal speech, no hallucinations, no dysarthria. Inpatient Medications: Scheduled: ??? DAPTOmycin 700 mg Intravenous Q24H ? ? insulin lispro 1-6 Units Subcutaneous 4 Times Daily AC & HS ??? insulin lispro 0-8 Units Subcutaneous TID WC ??? acetaminophen 1,000 mg Oral Q8H RJ ??? lidocaine 3 patch Transdermal Q24H And ??? lidocaine 3 patch Transdermal Q24H ??? senna-docusate 2 tablet Oral BID ??? polyethylene glycoL (MIRALAX) oral powder 17 g Oral Daily ??? aspirin EC 81 mg Oral Daily ??? buPROPion XL 150 mg Oral QAM ??? calcium carbonate 1,250 mg Oral Daily ??? folic acid 1 mg Oral Daily ??? gabapentin 300 mg Oral TID ??? levothyroxine 50 mcg Oral QAM ??? losartan 25 mg Oral Daily ??? multivitamin with minerals 1 tablet Oral Daily ??? pantoprazole EC 40 mg Oral Daily ??? sertraline 200 mg Oral Daily ??? topiramate 100 mg Oral BID ??? sodium chloride 0.9 % (flush) 5 mL Intravenous BID ??? insulin glargine 20 Units Subcutaneous Nightly ??? enoxaparin 40 mg Subcutaneous Nightly Continuous Infusions: PRN: hydrOXYzine, oxyCODONE, magnesium hydroxide, cyclobenzaprine, sodium chloride 0.9 % (flush), lidocaine, glucose 40% oral geL OR dextrose 10% OR glucagon, ondansetron OR ondansetron Studies reviewed in eD and remarkable for the following: Labs: LABS: Recent Labs 02/17/21 0410 02/16/21 0353 02/15/21 0035 WBC 8.9 9.6* 9.6* HGB 10.0* 9.8* 9.7* HCT 30.9* 30.3* 30.7* PLATELET 305 263 291 Recent Labs 02/17/21 0410 02/16/21 0353 02/15/21 0035 NA 143 143 141 K 3.7 3.6 3.5 CL 109* 109* 108* CO2 27 26 23 BUN 11 10 9 CREATININE 0.82 0.79 0.84 No results for input(s): AST, ALT, ALKPHOS, BILITOT, BILIDIR in the last 168 hours. Recent Labs 02/17/21 0410 02/16/21 0353 02/15/21 0035 CALCIUM 8.9 8.4* 8.6 PHOS 3.0 -- -- No results for input(s): PT, INR, PTT in the last 168 hours. Recent Labs 02/17/21 0410 02/14/212012 CK <20 <20 FSBG Trend: Recent Labs 02/17/21 1621 02/17/21 1200 02/17/21 0836 02/16/21 1933 02/16/21 1611 02/16/21 1346 02/16/21 1135 02/16/21 1023 02/16/21 0746 02/15/212002 POCGLU 191 155 239* 172 197 274* 215* 239* 273* 174 MICRO: No results for input(s): URINECULTURE in the last 720 hours. Recent Labs 02/10/21 1002 02/12/21 1743 02/12/21 1745 GRAMSTAIN Many Neutrophils seen Rare Gram Positive Cocci seen * Many Neutrophils seen Few Gram Positive Cocci seen * No Neutrophils seen. No microorganisms seen. * No Neutrophils seen. No microorganisms seen. * Recent Labs 02/07/21 1855 02/07/21 1937 BLOODCX No growth at 5 days. No growth at 5 days. ECG: No results for input(s): DIAGLINE, QTCCALC in the last 720 hours. Vascular: No results for input(s): VBTEXTRPT in the last 720 hours. Imaging: Results for orders placed or performed during the hospital encounter of 02/07/21 XR Ankle Min 3 views Left (Generic) (Exam End: 02/07/2021 3:33 PM) Impression Apparent incision and drainage laterally adjacent to open reduction internal fixation of the distal fibula. Lucency about the I and D site. Hardware appears grossly unremarkable. There is mottled gas in the soft tissues and induration of the soft tissues. Plantar spurring. CT may be useful to better assess the soft tissues relative to the osseous structures and internal. Thank you for letting us participate in the care of this patient. If you are a health care provider and have any questions regarding this report, please contact the number below. For patients who have questions please contact the health day care supervisor that requested your imaging first. Electronically signed by: Anthony Carrillo MD, [facility] ([phone]), at 02/07/2021 3:[address] Lower Extremity w Contrast Left (Exam End: 02/07/2021 5:51 PM) Impression Left lower extremity cellulitis extending from the distal tibia and fibula to the foot, with small abscess at the lateral malleolus. Thank you for letting us participate in the care of this patient. If you are a health care provider and have any questions regarding this report, please contact the number below. For patients who have questions please contact the health day care supervisor that requested your imaging first. Electronically signed by: Meli Gonzales MD, [facility] ([phone]), at 02/07/2021 6:17 PM XR Ankle Min 3 views Left (Generic) (Exam End: 02/13/2021 12:50 PM) Impression Status post removal of lateral fibula plate and screw fixation construct and transsyndesmotic screws. Thank you for letting us participate in the care of this patient. If you are a health care provider and have any questions regarding this report, please contact the number below. For patients who have questions please contact the health day care supervisor that requested your imaging first. Electronically signed by: Christian Leon MD, [facility] ([phone]), at 02/14/2021 2:58 AM XR PICC Placement Over 5 Years with Imaging Guidance (IV Team) (Exam End: 02/14/2021 9:20 AM) Impression Left-sided PICC with catheter tip projected at the cavoatrial junction. Thank you for letting us participate in the care of this patient. If you are a health care provider and have any questions regarding this report, please contact the number below. For patients who have questions please contact the health day care supervisor that requested your imaging first. Electronically signed by: [facility]EM [facility] ([phone]), at 02/14/2021 9:[address] Angiogram Lower Extremity Left (Generic) (Exam End: 02/16/2021 4:00 PM) Impression 1. Interval removal of ORIF hardware from the distal left tibia and fibula. 2. Surrounding inflammation and overlying skin thickening without drainable fluid collection. 3. Nonvisualized distal peroneal arteries. Patent anterior/posterior tibial arteries, dorsalis pedis and plantar arteries. Thank you for letting us participate in the care of this patient. If you are a health care provider and have any questions regarding this report, please contact the number below. For patients who have questions please contact the health day care supervisor that requested your imaging first. Electronically signed by: David Unger MD, [facility] ([phone]), at 02/16/2021 4:46 PM Other studies/procedures: Procedure(s): DEBRIDEMENT SKIN AND SUBCU, LOWER EXTREMITY (WRVU 1.01) Cami Ugarte APRN 02/17/2021 * Ruben Damian MD - 02/17/2021 6:56 AM EDT Orthopaedic Surgery Progress Note Surgery/Issue: I+D/SUE L ankle Attending: Marilia Date of surgery: 02/12/2021, 02/14/21 Subjective/Events: Ms Méndez is fine this morning. Slept well. No issues overnight, no nausea or vomiting. Wound VAC in place 02/12 intraop: S. Aureus, sensitivities pending Objective: Temp: [36.6 ??C (97.9 ??F)-37.1 ??C (98.8 ??F)] Heart Rate: [73-80] Resp: [16-18] BP: (115-140)/(56-72) Intake/Output Summary (Last 24 hours) at 02/17/2021 0656 Last data filed at 02/17/2021 0500 Gross per 24 hour Intake 1390 ml Output 2350 ml Net -960 ml Lab Results Component Value Date NA 143 02/17/2021 K 3.7 02/17/2021 CL 109 (H) 02/17/2021 CO2 27 02/17/2021 BUN 11 02/17/2021 CREATININE 0.82 02/17/2021 GLUCOSE 187 02/17/2021 CALCIUM 8.9 02/17/2021 Lab Results Component Value Date WBC 8.9 02/17/2021 HGB 10.0 (L) 02/17/2021 HCT 30.9 (L) 02/17/2021 MCV 89.8 02/17/2021 PLATELET 305 02/17/2021 Exam: General: NAD, awake/alert, responds to questions CV: RRR assessed peripherally Resp: Breathing comfortably LLE: Splint and Dressing c/d/i Decreased sensory to exposed toes, per baseline per patient Motor intact to FHL/EHL, able to wiggle other exposed toes. Brisk capillary refill distally, foot warm/well-perfused RUE: Bivalved cast, c/d/i Decreased sensation in ulnar distribution, baseline for past few weeks. Sensation intact at radial and median distributions at hand. Motor intact to shoulder abduction, finger flexion/extension Radial pulse 2+ A/P: 60 y.o. female s/p I+D/ SUE L ankle on 02/12. Doing well this morning. Plan will be for I+D andeventual flap, discussed with patient. NPO. Plan bedside vac change trial with PRS, keep NPO. Activity: NWB RUE in cast, NWB LLE in splint Drain: Wound vac Anticoagulation: ASA 81 mg BID for 30 days Antibiotics: dapto for staph aureus per primary Dispo: Per hospital course Follow-up: Pending hospital course Ruben Damian MD [phone] Associated attestation - Sabrina Capellan MD - 02/18/2021 6:41 AM EDT Patient seen and examined. Agree with resident note. Micaela Capellan MD Department of Orthopaedics 02/18/21 * Madeline Salomon, RN - 02/17/2021 6:27 AM EDT PT. SLEPT COMFORTABLY DURING THE NIGHT. OXYCODONE 5MG PO ADMINISTERED X2 WITH GOOD EFFECT. NPO FOR O.R. TODAY. WOUND VAC @125, SCANT AMOUNT S/S DRAINAGE. * Mable Brooks OTA - 02/16/2021 3:07 PM EDT Occupational Therapy Note Document Type: contact Total Minutes, Occupational Therapy: 0 Reason: Attempted to see pt for OT session,per pt just returned to bed and wants to rest. Pt reported has been getting up to the commode with nursing staff maintaining NWB status LLE/RUE. Will continue to follow. Pager: [phone] MARIE Thomas 02/16/2021 Occupational Therapy Rehabilitation Department * Cami Ugarte APRN - 02/16/2021 8:01 AM EDT Hospital Medicine Daily Progress Note Admit Date: 02/07/2021 Hospital Day 9 days Hospital Problems: Active Hospital Problems Diagnosis ? ? S/P Left ankle I&D for abscess and wound dehiscence, 02/08/21 (Dr Quiñones) and 02/10/21 (Abdirahman); 02/12 + 02/14 ( Dr. Capellan) Resolved Hospital Problems No resolved problems to display. Non-Hospital Problems: Active Non-Hospital Problems Diagnosis ??? Closed fracture of left ankle with routine healing ??? H/O insulin dependent diabetes mellitus ??? H/O: depression ??? Hypothyroidism ??? h/o chronic headaches ??? Closed fracture of shaft of right ulna with known elbow arthrodesis RIGHT ??? Chronic pain in left shoulder ??? S/P R elbow fusion on 12/14/17 [place] ??? Psoriasis Interval History: - NPO at [place] tonight for OR tomorrow--possible abx spacer vs full hardware exchange - Dapto for full 6wks - Hyperglycemia over past days, was eating sour parker drops for dry mouth - since removed from bedside/within reach, encouraged sugar-free options for dry mouth, or biotene Assessment & Plan: 60 y.o. female with past medical history of diabetes, hypothyroidism, depression, psoriasis, chronic headaches, presenting with complaints of left ankle swelling, pain, erythema and purulent drainageafter having ORIF on 01/21/2021 at [facility]. CT of the ankle showed LLE cellulitis with small abscess at the lateral malleolus. Plan for NPO tonight for debridement w/ possible hardware exchange vs abx spacer tomorrow. Sugars noted to be increasingly elevated, discussed with patient who stated she's been treating her dry mouth with 2-3 sour parker drops (25g sugar per drop) per day. Discussed concerned including persistent infection, delayed wound healing, possible need for amputation if wound doesn't heal/infection wors ens. Pt voices understanding and drops are removed from her reach, placed on windowsill in her room. Encouraged sugar free options to manage drop mouth. Of note, patient typically does her dad's bills. He has not paid any of his bills since his daughter has been admitted. I offered social work to assist in any way they could and they declined. #LLE MSSA & Enterococcus cellulitis and abscess: -Following recent ORIF at [facility] s/p mechanical fall w/ fracture -Reported noncompliance with weight bearing instructions etc could have contributed. -Recurrent washouts with wound vac in place. - NWB LLE - wound culture showing Enterococcus & MSSA (only MSSA most recent cultures). - Narrowed to daptomycin starting today. -ID to put in OPAT note - vitamin D WNL -Elevate left leg -Pain control with Tylenol, lidoderm, po oxy -Plastic surgery consulted by orthopaedics for possible reconstructive flap. ?? #Right upper extremity fracture, currently in cast: -Patient feeling better with bivalved cast. We will engage orthopedic team if develops recurrent symptoms. -Elevate right upper extremity - NWB RUE - occurred 1wk before ankle fracture, also due to mechanical fall ?? #Diabetes: - continue nightly 25units lantus home dose - SSI - did not take home victoza on day of presentation - A1C on 02/07 = 7.9 - has variable blood sugars #HTN - continue home losartan #hypothyroidism - continue home levothyroxine #Depression #anxiety - wellbutrin, sertraline home meds?? Diet CHO1 IV Access PIV mIVF Tubes/Drains Wound vac GI prophylaxis Home ppi DVT prophylaxis Lovenox PT/OT/CUTTER AND PASTER PRESS CLIPPINGS PT/OT Wound Care Anticipated Disposition TBD Code Status Attempt Cardiopulmonary Resuscitation - Inpatient Team Pager (MD coverage 14/03) [phone] PCP Maryuri Evans MD Family Update Family updated @ bedside 02/15 ROS: Denies f/c/n/v/d/con, CP, SOB, abd pain, n/t, arm pain, leg pain Endorses dry mouth Vital Signs: Last 24 hrs Temperature Temp: [36.6 ??C (97.9 ??F)-36.9 ??C (98.4 ??F)] Heart Rate Heart Rate: [85] Blood Pressure BP: (115-143)/(56-75) Respiratory Rate Resp: [16-18] SpO2 SpO2: [92 %-97 %] BMI: Weight: 83 kg (183 lb) (02/07/21 1438) BMI (Calculated): 33.47 BMI Classification: Obese Intake & Output: Intake/Output Summary (Last 24 hours) at 02/16/2021 1343 Last data filed at 02/16/2021 1154 Gross per 24 hour Intake 790 ml Output 1650 ml Net -860 ml Estimated Creatinine Clearance: 76.6 mL/min (based on SCr of 0.79 mg/dL). Physical Exam: GENERAL: A&Ox4, awake, not in acute distress, calm, cooperative, appears older than chronologicage, obese, sitting up in bed resting, watching tv HEENT: PERRLA CHEST: RRR LUNGS: LSCTAB, no W/R/R, no respiratory distress, on room air ABDOMEN: NABS, soft, non-tender, non-distended, no rebound, no guarding, resonant EXTREMITIES/MSK: pulses full and equal, good CSM RUE and LLE, no edema LLE: wound vac in place, lower leg wound vac dressing CDI, strong pedal pulse, sensation RUE: in full arm bivalve cast w/o significant edema, good sensation SKIN: warm, dry, intact, no rashes/lesions/erythema NEURO: No focal deficit, CN grossly intact, spontaneously moves all extremities PSYCH: normal affect, normal mood, normal speech, no hallucinations, no dysarthria Inpatient Medications: Scheduled: ??? DAPTOmycin 700 mg Intravenous Q24H ? ? insulin lispro 1-6 Units Subcutaneous 4 Times Daily AC & HS ??? insulin lispro 0-8 Units Subcutaneous TID WC ??? acetaminophen 1,000 mg Oral Q8H RJ ??? lidocaine 3 patch Transdermal Q24H And ??? lidocaine 3 patch Transdermal Q24H ??? senna-docusate 2 tablet Oral BID ??? polyethylene glycoL (MIRALAX) oral powder 17 g Oral Daily ??? aspirin EC 81 mg Oral Daily ??? buPROPion XL 150 mg Oral QAM ??? calcium carbonate 1,250 mg Oral Daily ??? folic acid 1 mg Oral Daily ??? gabapentin 300 mg Oral TID ??? levothyroxine 50 mcg Oral QAM ??? losartan 25 mg Oral Daily ??? multivitamin with minerals 1 tablet Oral Daily ??? pantoprazole EC 40 mg Oral Daily ??? sertraline 200 mg Oral Daily ??? topiramate 100 mg Oral BID ??? sodium chloride 0.9 % (flush) 5 mL Intravenous BID ??? insulin glargine 20 Units Subcutaneous Nightly ??? enoxaparin 40 mg Subcutaneous Nightly Continuous Infusions: PRN: hydrOXYzine, oxyCODONE, magnesium hydroxide, cyclobenzaprine, sodium chloride 0.9 % (flush), lidocaine, glucose 40% oral geL OR dextrose 10% OR glucagon, ondansetron OR ondansetron Studies reviewed in eDH and remarkable for the following: Labs: LABS: Recent Labs 02/16/21 0353 02/15/21 0035 02/10/21 0401 WBC 9.6* 9.6* 6.8 HGB 9.8* 9.7* 10.5* HCT 30.3* 30.7* 32.6* PLATELET 263 291 160 Recent Labs 02/16/21 0353 02/15/21 0035 02/10/21 0401 NA 143 141 142 K 3.6 3.5 3.6 CL 109* 108* 111* CO2 BUN 10 9 11 CREATININE 0.79 0.84 0.82 No results for input(s): AST, ALT, ALKPHOS, BILITOT, BILIDIR in the last 168 hours. Recent Labs 02/16/21 0353 02/15/21 0035 02/10/21 0401 CALCIUM 8.4* 8.6 8.5 No results for input(s): PT, INR, PTT in the last 168 hours. Recent Labs 02/14/212012 CK <20 FSBG Trend: Recent Labs 02/16/21 1135 02/16/21 1023 02/16/21 0746 02/15/21 2003 02/15/21 1724 02/15/21 1538 02/15/21 1139 02/15/21 0740 02/14/21 2351 02/14/21 1953 POCGLU 215* 239* 273* 174 127 243* 178 238* 188 186 MICRO: No results for input(s): URINECULTURE in the last 720 hours. Recent Labs 02/10/21 1002 02/12/21 1743 02/12/21 1745 GRAMSTAIN Many Neutrophils seen Rare Gram Positive Cocci seen * Many Neutrophils seen Few Gram Positive Cocci seen * No Neutrophils seen. No microorganisms seen. * No Neutrophils seen. No microorganisms seen. * Recent Labs 02/07/21 1855 02/07/21 1937 BLOODCX No growth at 5 days. No growth at 5 days. ECG: No results for input(s): DIAGLINE, QTCCALC in the last 720 hours. Vascular: No results for input(s): VBTEXTRPT in the last 720 hours. Imaging: Results for orders placed or performed during the hospital encounter of 02/07/21 XR Ankle Min 3 views Left (Generic) (Exam End: 02/07/2021 3:33 PM) Impression Apparent incision and drainage laterally adjacent to open reduction internal fixation of the distal fibula. Lucency about the I and D site. Hardware appears grossly unremarkable. There is mottled gas in the soft tissues and induration of the soft tissues. Plantar spurring. CT may be useful to better assess the soft tissues relative to the osseous structures and internal. Thank you for letting us participate in the care of this patient. If you are a health care provider and have any questions regarding this report, please contact the number below. For patients who have questions please contact the health day care supervisor that requested your imaging first. Electronically signed by: Anthony Carrillo MD, [facility] ([phone]), at 02/07/2021 3:[address] Lower Extremity w Contrast Left (Exam End: 02/07/2021 5:51 PM) Impression Left lower extremity cellulitis extending from the distal tibia and fibula to the foot, with small abscess at the lateral malleolus. Thank you for letting us participate in the care of this patient. If you are a health care provider and have any questions regarding this report, please contact the number below. For patients who have questions please contact the health day care supervisor that requested your imaging first. Electronically signed by: Meli Gonzales MD, [facility] ([phone]), at 02/07/2021 6:17 PM XR Ankle Min 3 views Left (Generic) (Exam End: 02/13/2021 12:50 PM) Impression Status post removal of lateral fibula plate and screw fixation construct and transsyndesmotic screws. Thank you for letting us participate in the care of this patient. If you are a health care provider and have any questions regarding this report, please contact the number below. For patients who have questions please contact the health day care supervisor that requested your imaging first. Electronically signed by: Christian Leon MD, [facility] ([phone]), at 02/14/2021 2:58 AM XR PICC Placement Over 5 Years with Imaging Guidance (IV Team) (Exam End: 02/14/2021 9:20 AM) Impression Left-sided PICC with catheter tip projected at the cavoatrial junction. Thank you for letting us participate in the care of this patient. If you are a health care provider and have any questions regarding this report, please contact the number below. For patients who have questions please contact the health day care supervisor that requested your imaging first. Electronically signed by: BLAZE SALEEM MD, [facility] ([phone]), at 02/14/2021 9:22 AM Other studies/procedures: Procedure(s): DEBRIDEMENT SKIN AND SUBCU, LOWER EXTREMITY (WRVU 1.01) Cami Ugarte APRN 02/16/2021 * Ruben Damian MD - 02/16/2021 7:07 AM EDT Orthopaedic Surgery Progress Note Surgery/Issue: I+D/SUE L ankle Attending: Marilia Date of surgery: 02/12/2021, 02/14/21 Subjective/Events: Ms Méndez is fine this morning. Only complaint is some soreness in the leg. No issues overnight, no nausea or vomiting. Wound VAC in place 02/12 intraop: S. Aureus, sensitivities pending Objective: Temp: [36.6 ??C (97.9 ??F)-36.9 ??C (98.4 ??F)] Heart Rate: [85] Resp: [14-18] BP: (119-143)/(59-75) Intake/Output Summary (Last 24 hours) at 02/16/2021 0707 Last data filed at 02/16/2021 0400 Gross per 24 hour Intake 550 ml Output 1100 ml Net -550 ml Lab Results Component Value Date NA 143 02/16/2021 K 3.6 02/16/2021 CL 109 (H) 02/16/2021 CO2 26 02/16/2021 BUN 10 02/16/2021 CREATININE 0.79 02/16/2021 GLUCOSE 222 (H) 02/16/2021 CALCIUM 8.4 (L) 02/16/2021 Lab Results Component Value Date WBC 9.6 (H) 02/16/2021 HGB 9.8 (L) 02/16/2021 HCT 30.3 (L) 02/16/2021 MCV 91.0 02/16/2021 PLATELET 263 02/16/2021 Exam: General: NAD, awake/alert, responds to questions CV: RRR assessed peripherally Resp: Breathing comfortably LLE: Splint and Dressing c/d/i Decreased sensory to exposed toes, per baseline per patient Motor intact to FHL/EHL, able to wiggle other exposed toes. Brisk capillary refill distally, foot warm/well-perfused RUE: Bivalved cast, c/d/i Decreased sensation in ulnar distribution, baseline for past few weeks. Sensation intact at radial and median distributions at hand. Motor intact to shoulder abduction, finger flexion/extension Radial pulse 2+ A/P: 60 y.o. female s/p I+D/ SUE L ankle on 02/12. Doing well this morning. Plan will be for I+D andeventual flap, discussed with patient. - Plan for repeat debridement 02/17/21, NPOMN - Consult PRS re: coverage Activity: NWB RUE in cast, NWB LLE in splint Drain: Wound vac Anticoagulation: ASA 81 mg BID for 30 days Antibiotics: dapto for staph aureus per primary Dispo: Per hospital course Follow-up: Pending hospital course Ruben Damian MD [id number] Associated attestation - Sabrina Capellan MD - 02/18/2021 6:37 AM EDT Patient seen and examined. Agree with resident note. Micaela Capellan MD Department of Orthopaedics 02/18/21 * Anita Sosa RN - 02/16/2021 4:42 AM EDT OUTCOME EVALUATION NOTE: OUTCOME SUMMARY: Patient alert, oriented, O2 2LPM at night, PICC on Left upper arm, dressing dry and intact. LLE with splint, with wound vac in placed at 125 mm HG, RUE cast in placed. NWB on LLE and RUE. Up to commode with 1 assist. Oxycodone given for pain.Vital signs stable. PLAN MOVING FORWARD: Monitor VS/ Labs Blood glucose QID IV antibiotic Pain management INDIVIDUALIZED FALL PREVENTION INTERVENTIONS: Patient-specific fall risk factors per assessment: [current deficits]: Masimo, O2 tubing, PICC, general weakness, wound vac Assistance [level of assistance required for transfers and ambulation]: Assist x 1 Supervision [direct monitoring required during toileting and ADLs]: Hands on Surveillance [continuous indirect monitoring]: Masimo, call correa within reach at all times, room near nurses, station, bed alarm use, purposeful hourly rounding Patient-specific fall prevention interventions for sensory deficits provided, if applicable: [X] N/A CPG GOAL OUTCOME EVALUATION: * Alejandro Felix DT - 02/15/2021 2:50 PM EDT Nutrition Services Note - Low Nutrition Acuity Jesenia Méndez is a 60 y.o. female Reason for intervention: hospital day 9 Nutrition Plan: Continue current diet. Regular POC BG checks. Higher protein needs for wound healing. Encourage good oral intake. Support and encouragement provided. Patient screened for hospital length of stay. 100% PO intake noted in chart. Wound vac observed, higher est. protein needs for healing, please encourage pt to order a minimum of one good source w/ each meal tray. Last HA1C of 7.9%, some spikes in blood sugar noticed in chart. Will continue to monitor. Active Orders Diet Regular diet Frequency: Effective Now Number of Occurrences: Until Specified Admit Weight: 83.01 kg Estimated body mass index is 33.47 kg/m?? as calculated from the following: Height as of this encounter: 157.5 cm (5' 2). Weight as of this encounter: 83 kg (183 lb). Wt Readings from Last 5 Encounters: 02/07/21 83 kg (183 lb) 11/21/20 80.7 kg (178 lb) 03/06/20 80.7 kg (178 lb) 09/11/19 78.9 kg (174 lb) 09/05/19 83 kg (183 lb) Weight loss: none Appetite: Excellent (75%-100%) Food allergies:no known food allergies Chewing/Swallowing difficulty: none Nausea/Vomiting: no nausea and no vomiting Last Bowel Movement: 02/14/21 Patient education / questions: none Nutrition services to follow weekly through hospital course unless consulted in the interim. EARL Campo Pager: [phone] * Adalberto Mckeon PA - 02/15/2021 2:17 PM EDT Hospital Medicine Daily Progress Note Admit Date: 02/07/2021 Hospital Day 8 days Hospital Problems: Active Hospital Problems Diagnosis ? ? S/P Left ankle I&D for abscess and wound dehiscence, 02/08/21 (Dr Quiñones) and 02/10/21 (Abdirahman); 02/12 + 02/14 ( Dr. Capellan) Resolved Hospital Problems No resolved problems to display. Non-Hospital Problems: Active Non-Hospital Problems Diagnosis ??? Closed fracture of left ankle with routine healing ??? H/O insulin dependent diabetes mellitus ??? H/O: depression ??? Hypothyroidism ??? h/o chronic headaches ??? Closed fracture of shaft of right ulna with known elbow arthrodesis RIGHT ??? Chronic pain in left shoulder ??? S/P R elbow fusion on 12/14/17 [facility] ??? Psoriasis Interval History: -OR yesterday -Some extra pain meds for leg pain post op -Plan for repeat debridement 02/17 -changed from vancomycin to daptomycin -6 week course Assessment & Plan: 60 y.o. female with past medical history of diabetes, hypothyroidism, depression, psoriasis, chronic headaches, presenting with complaints of left ankle swelling, pain, erythema and purulent drainageafter having ORIF on 01/21/2021 at [facility]. CT of the ankle showed LLE cellulitis with small abscess at the lateral malleolus. Plan for repeat debridement on Tuesday. Tolerated yesterday's well. Ortho team to reach out to plastic surgery as hopeful for eventual flap reconstructive surgery. Of note, patient typically does her dad's bills. He has not paid any of his bills since his daughter has been admitted. I offered social work to assist in any way they could and they declined. #LLE MSSA & Enterococcus cellulitis and abscess: -Following recent ORIF at [facility] s/p mechanical fall w/ fracture -Reported noncompliance with weight bearing instructions etc could have contributed. -Recurrent washouts with wound vac in place. - NWB LLE - wound culture showing Enterococcus & MSSA (only MSSA most recent cultures). - Narrowed to daptomycin starting today. -ID to put in OPAT note - vitamin D WNL -Elevate left leg -Pain control with Tylenol, lidoderm, po oxy -Plastic surgery consulted by orthopaedics for possible reconstructive flap. ?? #Right upper extremity fracture, currently in cast: -Patient feeling better with bivalved cast. We will engage orthopedic team if develops recurrent symptoms. -Elevate right upper extremity - NWB RUE - occurred 1wk before ankle fracture, also due to mechanical fall ?? #Diabetes: - continue nightly 25units lantus home dose - SSI - did not take home victoza on day of presentation - A1C on 02/07 = 7.9 - has variable blood sugars #HTN - continue home losartan #hypothyroidism - continue home levothyroxine #Depression #anxiety - wellbutrin, sertraline home meds?? Diet CHO1 IV Access PIV mIVF Tubes/Drains Wound vac GI prophylaxis Home ppi DVT prophylaxis Lovenox PT/OT/[employer] PT/OT Wound Care Anticipated Disposition TBD Code Status Attempt Cardiopulmonary Resuscitation - Inpatient Team Pager ( coverage 14/03) [phone] PCP Maryuri Evans MD Family Update Family updated @ bedside 03/17 ROS: Denies f/c/n/v/d/con, CP, SOB, abd pain, n/t, arm pain, leg pain Endorses hunger, eager to get to OR or to eat soon Vital Signs: Last 24 hrs Temperature Temp: [36.6 ??C (97.9 ??F)-36.9 ??C (98.4 ??F)] Heart Rate Heart Rate: [72-85] Blood Pressure BP: (99-143)/(56-74) Respiratory Rate Resp: [12-16] SpO2 SpO2: [92 %-100 %] BMI: Weight: 83 kg (183 lb) (02/07/21 1438) BMI (Calculated): 33.47 BMI Classification: Obese Intake & Output: Intake/Output Summary (Last 24 hours) at 02/15/2021 1417 Last data filed at 02/15/2021 0000 Gross per 24 hour Intake 640 ml Output 515 ml Net 125 ml Estimated Creatinine Clearance: 72.1 mL/min (based on SCr of 0.84 mg/dL). Physical Exam: GENERAL: A&Ox4, awake, not in acute distress, calm, cooperative, appears older than chronologicage, obese, sitting up in bed resting, watching tv HEENT: PERRLA CHEST: RRR LUNGS: LSCTAB, no W/R/R, no respiratory distress, on room air ABDOMEN: NABS, soft, non-tender, non-distended, no rebound, no guarding, resonant EXTREMITIES/MSK: pulses full and equal, good CSM RUE and LLE, no edema LLE: wound vac in place, lower leg wound vac dressing CDI, strong pedal pulse, sensation RUE: in full arm bivalve cast w/o significant edema, good sensation SKIN: warm, dry, intact, no rashes/lesions/erythema NEURO: No focal deficit, CN grossly intact, spontaneously moves all extremities PSYCH: normal affect, normal mood, normal speech, no hallucinations, no dysarthria Inpatient Medications: Scheduled: ??? DAPTOmycin 700 mg Intravenous Q24H ? ? insulin lispro 1-6 Units Subcutaneous 4 Times Daily AC & HS ??? insulin lispro 0-8 Units Subcutaneous TID WC ??? acetaminophen 1,000 mg Oral Q8H RJ ??? lidocaine 3 patch Transdermal Q24H And ??? lidocaine 3 patch Transdermal Q24H ??? senna-docusate 2 tablet Oral BID ??? polyethylene glycoL (MIRALAX) oral powder 17 g Oral Daily ??? aspirin EC 81 mg Oral Daily ??? buPROPion XL 150 mg Oral QAM ??? calcium carbonate 1,250 mg Oral Daily ??? folic acid 1 mg Oral Daily ??? gabapentin 300 mg Oral TID ??? levothyroxine 50 mcg Oral QAM ??? losartan 25 mg Oral Daily ??? multivitamin with minerals 1 tablet Oral Daily ??? pantoprazole EC 40 mg Oral Daily ??? sertraline 200 mg Oral Daily ??? topiramate 100 mg Oral BID ??? sodium chloride 0.9 % (flush) 5 mL Intravenous BID ??? insulin glargine 20 Units Subcutaneous Nightly ??? enoxaparin 40 mg Subcutaneous Nightly Continuous Infusions: PRN: hydrOXYzine, oxyCODONE, magnesium hydroxide, cyclobenzaprine, sodium chloride 0.9 % (flush), lidocaine, glucose 40% oral geL OR dextrose 10% OR glucagon, ondansetron OR ondansetron Studies reviewed in eD and remarkable for the following: Labs: LABS: Recent Labs 02/15/21 0035 02/10/21 0401 02/09/21 0513 WBC 9.6* 6.8 8.4 HGB 9.7* 10.5* 12.5 HCT 30.7* 32.6* 38.3 PLATELET 291 160 147 Recent Labs 02/15/21 0035 02/10/21 0401 02/09/21 0513 NA 141 142 141 K 3.5 3.6 3.8 CL 108* 111* 110* CO2 23 22 21* BUN 9 11 12 CREATININE 0.84 0.82 0.92 No results for input(s): AST, ALT, ALKPHOS, BILITOT, BILIDIR in the last 168 hours. Recent Labs 02/15/21 0035 02/10/21 0401 02/09/21 0513 CALCIUM 8.6 8.5 8.9 No results for input(s): PT, INR, PTT in the last 168 hours. Recent Labs 02/14/21 2013 CK <20 FSBG Trend: Recent Labs 02/15/21 1139 02/15/21 0740 02/14/21 2351 02/14/21 1953 02/14/21 1657 02/14/21 1151 02/14/21 0801 02/13/21 2345 02/13/21 1939 02/13/21 1551 POCGLU 178 238* 188 186 110 149 156 228* 186 201* MICRO: No results for input(s): URINECULTURE in the last 720 hours. Recent Labs 02/10/21 1002 02/12/21 1743 02/12/21 1745 GRAMSTAIN Many Neutrophils seen Rare Gram Positive Cocci seen * Many Neutrophils seen Few Gram Positive Cocci seen * No Neutrophils seen. No microorganisms seen. * No Neutrophils seen. No microorganisms seen. * Recent Labs 02/07/21 1855 02/07/21 1937 BLOODCX No growth at 5 days. No growth at 5 days. ECG: No results for input(s): DIAGLINE, QTCCALC in the last 720 hours. Vascular: No results for input(s): VBTEXTRPT in the last 720 hours. Imaging: Results for orders placed or performed during the hospital encounter of 02/07/21 XR Ankle Min 3 views Left (Generic) (Exam End: 02/07/2021 3:33 PM) Impression Apparent incision and drainage laterally adjacent to open reduction internal fixation of the distal fibula. Lucency about the I and D site. Hardware appears grossly unremarkable. There is mottled gas in the soft tissues and induration of the soft tissues. Plantar spurring. CT may be useful to better assess the soft tissues relative to the osseous structures and internal. Thank you for letting us participate in the care of this patient. If you are a health care provider and have any questions regarding this report, please contact the number below. For patients who have questions please contact the health day care supervisor that requested your imaging first. Electronically signed by: Anthony Carrillo MD, [facility] ([phone]), at 02/07/2021 3:[address] Lower Extremity w Contrast Left (Exam End: 02/07/2021 5:51 PM) Impression Left lower extremity cellulitis extending from the distal tibia and fibula to the foot, with small abscess at the lateral malleolus. Thank you for letting us participate in the care of this patient. If you are a health care provider and have any questions regarding this report, please contact the number below. For patients who have questions please contact the health day care supervisor that requested your imaging first. Electronically signed by: Meli Gonzales MD, [facility] ([phone]), at 02/07/2021 6:17 PM XR Ankle Min 3 views Left (Generic) (Exam End: 02/13/2021 12:50 PM) Impression Status post removal of lateral fibula plate and screw fixation construct and transsyndesmotic screws. Thank you for letting us participate in the care of this patient. If you are a health care provider and have any questions regarding this report, please contact the number below. For patients who have questions please contact the health day care supervisor that requested your imaging first. Electronically signed by: Christian Leon MD, [facility] ([phone]), at 02/14/2021 2:58 AM XR PICC Placement Over 5 Years with Imaging Guidance (IV Team) (Exam End: 02/14/2021 9:20 AM) Impression Left-sided PICC with catheter tip projected at the cavoatrial junction. Thank you for letting us participate in the care of this patient. If you are a health care provider and have any questions regarding this report, please contact the number below. For patients who have questions please contact the health day care supervisor that requested your imaging first. Electronically signed by: BLAZE SALEEM MD, [facility] ([phone]), at 02/14/2021 9:22 AM Other studies/procedures: Procedure(s): DEBRIDEMENT SKIN AND SUBCU, LOWER EXTREMITY (WRVU 1.01) IMANI [place] 02/15/2021 * Seth Yarbrough MD - 02/15/2021 6:00 AM EDT Orthopaedic Surgery Post-Operative Progress Note Surgery/Issue: I+D/SUE L ankle Attending: Marilia Date of surgery: 02/12/2021, 02/14/21 Subjective/Events: Ms Méndez is fine this morning. Only complaint is some soreness in the leg. No issues overnight, no nausea or vomiting. Wound VAC in place Staph aureus growing from left ankle wound Went to OR yesterday for repeat debridement Objective: Temp: [36.6 ??C (97.9 ??F)-36.9 ??C (98.4 ??F)] Heart Rate: [72-85] Resp: [12-16] BP: (99-143)/(56-74) Intake/Output Summary (Last 24 hours) at 02/15/2021 0600 Last data filed at 02/15/2021 0000 Gross per 24 hour Intake 640 ml Output 1015 ml Net -375 ml Lab Results Component Value Date NA 141 02/15/2021 K 3.5 02/15/2021 CL 108 (H) 02/15/2021 CO2 23 02/15/2021 BUN 9 02/15/2021 CREATININE 0.84 02/15/2021 GLUCOSE 186 02/15/2021 CALCIUM 8.6 02/15/2021 Lab Results Component Value Date WBC 9.6 (H) 02/15/2021 HGB 9.7 (L) 02/15/2021 HCT 30.7 (L) 02/15/2021 MCV 90.6 02/15/2021 PLATELET 291 02/15/2021 Exam: General: NAD, awake/alert, responds to questions CV: RRR Resp: Breathing comfortably, lungs CTAB LLE: Splint and Dressing c/d/i Decreased sensory to exposed toes, per baseline per patient Motor intact to FHL/EHL, able to wiggle other exposed toes. Brisk capillary refill distally, foot warm/well-perfused RUE: Bivalved cast, c/d/i Decreased sensation in ulnar distribution, baseline for past few weeks. Sensation intact at radial and median distributions at hand. Motor intact to shoulder abduction, finger flexion/extension Radial pulse 2+ ?? A/P: 60 y.o. female s/p I+D/ SUE L ankle on 02/12. Doing well this morning. Plan will be for I+D andeventual flap, discussed with patient. - Plan for repeat debridement 02/17/21 - Consult PRS today re: coverage Activity: NWB RUE in cast, NWB LLE in splint Drain: Wound vac Anticoagulation: ASA 81 mg BID for 30 days Antibiotics: dapto for staph aureus Dispo: Per hospital course Follow-up: Pending hospital course Seth Yarbrough MD [id number] Associated attestation - Sabrina Capellan MD - 02/15/2021 1:13 PM EDT Patient seen and examined. Agree with resident note. Micaela Capellan MD Department of Orthopaedics 02/15/21 * Anita Sosa RN - 02/15/2021 5:19 AM EDT OUTCOME EVALUATION NOTE: OUTCOME SUMMARY: Patient is alert and oriented, on room air, denies shortness of breath. RUE cast intact, LLE dressing dry and intact, wound vac in placed. LLE elevated with pillow. Left upper arm PICC, dry and intact, CHG bath given. Complaint of LLE pain, Oxycodone and flexeril given but no relief. Omero VASQUEZ, Dilaudid 0.5 mg IV once given for pain, patient able to sleep. Vital signs stable. IV Daptomycin started. PLAN MOVING FORWARD: Monitor VS/ Labs Blood glucose QID Pain management IV antibiotics- Daptomycin INDIVIDUALIZED FALL PREVENTION INTERVENTIONS: Patient-specific fall risk factors per assessment: [current deficits]: PICC, general weakness, painmedication, NWB on LLE, masimo Assistance [level of assistance required for transfers and ambulation]: assist x 1 Supervision [direct monitoring required during toileting and ADLs]: Hands on Surveillance [continuous indirect monitoring]: Masimo, call correa within reach at all times,purposeful hourly rounding, bed alarm on, room near nurses' station Patient-specific fall prevention interventions for sensory deficits provided, if applicable: [X] N/A CPG GOAL OUTCOME EVALUATION: * Yani Tran MD - 02/14/2021 7:51 PM EDT ORTHOPAEDIC SURGERY INPATIENT PROGRESS NOTE Patient Name: Jesenia Méndez Age: 60 y.o. Surgery/Issue: LLE I&D Attending: Dr. Capellan Date of surgery: 02/14/2021 SUBJECTIVE / INTERVAL HISTORY: Patient resting comfortably. Pain well controlled. Patient denies chest pain, shortness of breath, nausea, vomiting, numbness/weakness. Passing gas/urinating, with good oral intake. FOCUSED REVIEW OF SYSTEMS: as above. Active Hospital Problems Diagnosis ? ? S/P Left ankle I&D for abscess and wound dehiscence, 02/08/21 (Dr Quiñones) and 02/10/21 (Abdirahman); 02/12 + 02/14 ( Dr. Capellan) Resolved Hospital Problems No resolved problems to display. Active Non-Hospital Problems Diagnosis ??? Closed fracture of left ankle with routine healing ??? H/O insulin dependent diabetes mellitus ??? H/O: depression ??? Hypothyroidism ??? h/o chronic headaches ??? Closed fracture of shaft of right ulna with known elbow arthrodesis RIGHT ??? Chronic pain in left shoulder ??? S/P R elbow fusion on 12/14/17 [facility] ??? Psoriasis MEDICATIONS: ??? DAPTOmycin (Cubicin) 700 mg in sodium chloride 0.9% 64 mL ??? POCT Fingerstick Glucose AND insulin lispro (HumaLOG;Admelog) (100 unit/mL) subcutaneous injection vial 1-6 Units ??? insulin lispro (HumaLOG;Admelog) (100 unit/mL) subcutaneous injection vial 0-8 Units ??? acetaminophen (Tylenol) tablet 1,000 mg ??? lidocaine (Lidoderm) 5% topical patch 3 patch AND lidocaine (Lidoderm) topical patch REMOVAL ??? hydrOXYzine (Atarax) tablet 50 mg ??? oxyCODONE (Roxicodone) tablet 5 mg ??? senna-docusate (Pericolace) 8.6-50 mg per tablet 2 tablet ??? polyethylene glycoL (Miralax) packet 17 g ??? magnesium hydroxide (Milk of Magnesia) (240 mg/mL) oral liquid 30 mL ??? aspirin EC tablet 81 mg ??? buPROPion XL (Wellbutrin XL) tablet 150 mg ??? calcium carbonate (Tums) chewable tablet 1,250 mg ??? cyclobenzaprine (Flexeril) tablet 10 mg ??? folic acid (Folvite) tablet 1,000 mcg ??? gabapentin (Neurontin) capsule 300 mg ??? levothyroxine (Synthroid) tablet 50 mcg ??? losartan (Cozaar) tablet 25 mg ??? multivitamin with minerals (THERA-M) tablet 1 tablet ??? pantoprazole EC (Protonix) tablet 40 mg ??? sertraline (Zoloft) tablet 200 mg ??? topiramate (Topamax) tablet 100 mg ??? sodium chloride 0.9 % (flush) flush 5 mL ??? sodium chloride 0.9 % (flush) flush 5-20 mL ??? lidocaine (Xylocaine) 1% (10 mg/mL) injection 3 mg ??? glucose (GLUTOSE) 40% oral geL OR dextrose 10% infusion OR glucagon (Glucagen) (1 mg/mL) injection solution 1 mg ??? ondansetron (Zofran) tablet 4-8 mg OR ondansetron (pf) (Zofran) (2 mg/mL) injection 4-8 mg ??? insulin glargine (Lantus) (100 unit/mL) subcutaneous injection vial 20 Units ??? enoxaparin (Lovenox) (40 mg/0.4 mL) subcutaneous injection 40 mg OBJECTIVE: Temp: [36.6 ??C (97.9 ??F)-36.9 ??C (98.4 ??F)] Heart Rate: [72-85] Resp: [12-16] BP: (99-143)/(56-74) Intake/Output Summary (Last 24 hours) at 02/15/2021 0458 Last data filed at 02/15/2021 0000 Gross per 24 hour Intake 640 ml Output 1015 ml Net -375 ml Body mass index is 33.47 kg/m??. PE: General: awake/alert, responds to questions CV: RRR assessed peripherally Resp: Breathing comfortably on RA LLE: Dressing c/d/i Sensory intact to light touch in lat fem cut/fem/sural/saph/SP/DP/T Motor intact to FHL/EHL/TA, knee extension/flexion, hip extension/flexion Brisk capillary refill distally, foot warm/well-perfused, DP 2+ Lab Results Component Value Date NA 141 02/15/2021 K 3.5 02/15/2021 CL 108 (H) 02/15/2021 CO2 23 02/15/2021 BUN 9 02/15/2021 CREATININE 0.84 02/15/2021 GLUCOSE 186 02/15/2021 CALCIUM 8.6 02/15/2021 Lab Results Component Value Date WBC 9.6 (H) 02/15/2021 HGB 9.7 (L) 02/15/2021 HCT 30.7 (L) 02/15/2021 MCV 90.6 02/15/2021 PLATELET 291 02/15/2021 ASSESSMENT / PLAN: Jesenia Méndez is a 60 y.o. female 0 Day Post-Op s/p LLE I&D. Doing well post-operatively. Discharge pending evaluation by PT/OT on POD1. Activity: NWB RUE in cast, NWB LLE Closure: Wound vac Dressing: Wound vac Drain: Wound vac (1 black 1 white sponge), 10cc serosanguinous fluid Anticoagulation: ASA 81 mg BID for 30 days Antibiotics: per ID - Vanc Consults: rec ID, hold if stable prior to OR Dispo: Per hospital course Follow-up: Pending hospital course Yani Tran MD 02/14/2021 Future Appointments Date Time Provider Department Center 03/20/2021 1:00 PM CAST ROOM 3A [facility] [address] [place] [address] 03/20/2021 1:30 PM [facility] DX ROOM 3 Xray [facility] Rad 03/20/2021 2:20 PM Dorina Campbell APRN [facility] [address] [place] [address] Associated attestation - Sabrina Capellan MD - 02/15/2021 1:13 PM EDT Patient seen and examined. Agree with resident note. Micaela Capellan MD Department of Orthopaedics 02/15/21 * Radha Cordoba DO - 02/14/2021 6:01 PM EDT Brief ID follow up note: Patient was not seen as she was at the OR undergoing debridement Intercurrent events: hardware was removed completely and culture is finalized with .faecalis and MSSA growing from the wound cultures. No new organisms identified. Micro: Abscess/Wound Aspirate Culture [[id number]] (Abnormal) Collected: 02/08/21 1030 Lab Status: Final result Specimen: Deep Wound from Ankle, Left Updated: 02/12/21 0915 Abscess/Wound Aspirate Culture --??Abnormal?? Many Staphylococcus aureus Many Enterococcus faecalis ??Abnormal?? Gram Stain --??Abnormal?? Moderate Neutrophils Many Gram Positive Cocci seen ??Abnormal?? Susceptibility Staphylococcus aureus Enterococcus faecalis VITEK 2 METHOD VITEK 2 METHOD Ampicillin Sensitive Cefazolin Sensitive Ceftriaxone Sensitive Clindamycin Sensitive Erythromycin Sensitive Intermediate Gentamicin Sensitive 1 Gentamicin 500 Sensitive Oxacillin Sensitive 2 Penicillin Sensitive Streptomycin 1000 Sensitive Tetracycline Sensitive Trimethoprim/Sulfa Sensitive Vancomycin Sensitive Sensitive A/P: would recommend transitioning her coverage from vancomycin to Daptomycin which would cover both isolated organisms. The dose (ideal body weight 8 mg/kg) would be 700 mg IV Q 24 hrs.please obtainbaseline CPK before giving the first dose. She will need 6 weeks course. OPAT intake note to be placed tomorrow Plan of care discussed with Dr. Cordoba (the ID attending on record). Gustabo Murray MD Infectious Diseases Fellow 02/14/2021 I have not seen the patient but the assessment and plan were formulated in discussion with me and Barbara with them as documented. 60F s/p ORIF left ankle on 01/21 complicated by SSI involving hardware. She has undergone multiple debridements with total hardware removal on 02/12. Cultures continue to grow predominantly MSSA and occasionaly enterococcus. Given susceptibilities would recommend Daptomycin for discharge. Will need 6 week course of therapy from hardware removing (end 03/26). Radha Cordoba DO, MPH Infectious Disease * Hellen Rueda RN - 02/14/2021 4:58 PM EDT Pt to PACU via bed from OR; monitors applied, alarms set and audible. LLE in splint and dali wrap; wound vac in place set to -125 mmHg continuous. Pt denies pain and nausea when asked. Report given to SUNIL Marie. * Adalberto Mckeon PA - 02/14/2021 2:21 PM EDT Hospital Medicine Daily Progress Note Admit Date: 02/07/2021 Hospital Day 7 days Hospital Problems: Active Hospital Problems Diagnosis ? ? S/P Left ankle I&D for abscess and wound dehiscence, 02/08/21 (Dr Quiñones) and 02/10/21 (Abdirahman) Resolved Hospital Problems No resolved problems to display. Non-Hospital Problems: Active Non-Hospital Problems Diagnosis ??? Closed fracture of left ankle with routine healing ??? H/O insulin dependent diabetes mellitus ??? H/O: depression ??? Hypothyroidism ??? h/o chronic headaches ??? Closed fracture of shaft of right ulna with known elbow arthrodesis RIGHT ??? Chronic pain in left shoulder ??? S/P R elbow fusion on 12/14/17 [facility] ??? Psoriasis Interval History: -Planned for OR today for I&D and wound vac change. -ID discussing narrowing from vanco to dapto vs nafcillin. -Pain controlled. Assessment & Plan: 60 y.o. female with past medical history of diabetes, hypothyroidism, depression, psoriasis, chronic headaches, presenting with complaints of left ankle swelling, pain, erythema and purulent drainageafter having ORIF on 01/21/2021 at [facility]. CT of the ankle showed LLE cellulitis with small abscess at the lateral malleolus. Plan for patient to go back to OR today for I&D and wound vac change. ID discussing appropriateness for transition to daptomycin vs. Nafcillin (in setting of MSSA & enterococcus). PICC placedyesterday due to access issues. #LLE MSSA & Enterococcus cellulitis and abscess: -Following recent ORIF at [facility] s/p mechanical fall w/ fracture -Reported noncompliance with weight bearing instructions etc could have contributed. -Recurrent washouts with wound vac in place. - NWB LLE - wound culture showing Enterococcus & MSSA (only MSSA most recent cultures). - continue vancomycin, looking to narrow with discussions with ID - vitamin D WNL -Elevate left leg -Pain control with Tylenol, lidoderm, po oxy ?? #Right upper extremity fracture, currently in cast: -Patient feeling better with bivalved cast. We will engage orthopedic team if develops recurrent symptoms. -Elevate right upper extremity - NWB RUE - occurred 1wk before ankle fracture, also due to mechanical fall ?? #Diabetes: - continue nightly 25units lantus home dose - SSI - did not take home victoza on day of presentation - A1C on 02/07 = 7.9 - has variable blood sugars #HTN - continue home losartan #hypothyroidism - continue home levothyroxine #Depression #anxiety - wellbutrin, sertraline home meds?? Diet CHO1 IV Access PIV mIVF Tubes/Drains Wound vac GI prophylaxis Home ppi DVT prophylaxis Lovenox PT/OT/CUTTER AND PASTER PRESS CLIPPINGS PT/OT Wound Care Anticipated Disposition TBD Code Status Attempt Cardiopulmonary Resuscitation - Inpatient Team Pager (MD coverage 14/03) [phone] PCP Maryuri Evans MD Family Update Family updated by patient ROS: Denies f/c/n/v/d/con, CP, SOB, abd pain, n/t, arm pain, leg pain Endorses hunger, eager to get to OR or to eat soon Vital Signs: Last 24 hrs Temperature Temp: [36.6 ??C (97.9 ??F)-37.1 ??C (98.8 ??F)] Heart Rate Heart Rate: [80-83] Blood Pressure BP: (115-138)/(57-70) Respiratory Rate Resp: [16] SpO2 SpO2: [94 %-98 %] BMI: Weight: 83 kg (183 lb) (02/07/21 1438) BMI (Calculated): 33.47 BMI Classification: Obese Intake & Output: Intake/Output Summary (Last 24 hours) at 02/14/2021 1421 Last data filed at 02/14/2021 1019 Gross per 24 hour Intake 400 ml Output 2950 ml Net -2550 ml Estimated Creatinine Clearance: 73.8 mL/min (based on SCr of 0.82 mg/dL). Physical Exam: GENERAL: A&Ox4, awake, not in acute distress, calm, cooperative, appears older than chronologicage, obese, sitting up in bed resting, watching tv HEENT: PERRLA CHEST: RRR LUNGS: LSCTAB, no W/R/R, no respiratory distress, on room air ABDOMEN: NABS, soft, non-tender, non-distended, no rebound, no guarding, resonant EXTREMITIES/MSK: pulses full and equal, good CSM RUE and LLE, no edema LLE: wound vac in place, lower leg wound vac dressing CDI, strong pedal pulse, sensation RUE: in full arm bivalve cast w/o significant edema, good sensation SKIN: warm, dry, intact, no rashes/lesions/erythema NEURO: No focal deficit, CN grossly intact, spontaneously moves all extremities PSYCH: normal affect, normal mood, normal speech, no hallucinations, no dysarthria Inpatient Medications: Scheduled: ??? Vancomycin Level - MAR Order Reminder NOT APPLICABLE Once ? ? insulin lispro 1-6 Units Subcutaneous 4 Times Daily AC & HS ??? insulin lispro 0-8 Units Subcutaneous TID WC ??? vancomycin 1 g Intravenous Q12H ??? acetaminophen 1,000 mg Oral Q8H RJ ??? lidocaine 3 patch Transdermal Q24H And ??? lidocaine 3 patch Transdermal Q24H ??? senna-docusate 2 tablet Oral BID ??? polyethylene glycoL (MIRALAX) oral powder 17 g Oral Daily ??? aspirin EC 81 mg Oral Daily ??? buPROPion XL 150 mg Oral QAM ??? calcium carbonate 1,250 mg Oral Daily ??? folic acid 1 mg Oral Daily ??? gabapentin 300 mg Oral TID ??? levothyroxine 50 mcg Oral QAM ??? losartan 25 mg Oral Daily ??? multivitamin with minerals 1 tablet Oral Daily ??? pantoprazole EC 40 mg Oral Daily ??? sertraline 200 mg Oral Daily ??? topiramate 100 mg Oral BID ??? sodium chloride 0.9 % (flush) 5 mL Intravenous BID ??? insulin glargine 20 Units Subcutaneous Nightly ??? enoxaparin 40 mg Subcutaneous Nightly Continuous Infusions: PRN: hydrOXYzine, oxyCODONE, magnesium hydroxide, cyclobenzaprine, sodium chloride 0.9 % (flush), lidocaine, glucose 40% oral geL OR dextrose 10% OR glucagon, ondansetron OR ondansetron Studies reviewed in eDH and remarkable for the following: Labs: LABS: Recent Labs 02/10/21 0401 02/09/21 0513 02/08/21318 WBC 6.8 8.4 8.6 HGB 10.5* 12.5 13.0 HCT 32.6* 38.3 39.7 PLATELET 160 147 165 Recent Labs 02/10/21 0401 02/09/21 0513 02/08/21 031 NA 142 141 136 K 3.6 3.8 3.7 CL 111* 110* 102 CO2 22 21* 23 BUN 11 12 13 CREATININE 0.82 0.92 0.96 No results for input(s): AST, ALT, ALKPHOS, BILITOT, BILIDIR in the last 168 hours. Recent Labs 02/10/21 0401 02/09/21 0513 02/08/21 0319 CALCIUM 8.5 8.9 9.0 No results for input(s): PT, INR, PTT in the last 168 hours. No results for input(s): CK, TROPONINT in the last 168 hours. FSBG Trend: Recent Labs 02/14/21 1151 02/14/21 0801 02/13/21 2345 02/13/21 1939 02/13/21 1551 02/13/21 1154 02/13/21 0818 02/12/21 2016 02/12/21 1925 02/12/21 1748 POCGLU 149 156 228* 186 201* 188 185 120 99 102 MICRO: No results for input(s): URINECULTURE in the last 720 hours. Recent Labs 02/10/21 1002 02/12/21 1743 02/12/21 1745 GRAMSTAIN Many Neutrophils seen Rare Gram Positive Cocci seen * Many Neutrophils seen Few Gram Positive Cocci seen * No Neutrophils seen. No microorganisms seen. * No Neutrophils seen. No microorganisms seen. * Recent Labs 02/07/21 1855 02/07/21 1937 BLOODCX No growth at 5 days. No growth at 5 days. ECG: No results for input(s): DIAGLINE, QTCCALC in the last 720 hours. Vascular: No results for input(s): VBTEXTRPT in the last 720 hours. Imaging: Results for orders placed or performed during the hospital encounter of 02/07/21 XR Ankle Min 3 views Left (Generic) (Exam End: 02/07/2021 3:33 PM) Impression Apparent incision and drainage laterally adjacent to open reduction internal fixation of the distal fibula. Lucency about the I and D site. Hardware appears grossly unremarkable. There is mottled gas in the soft tissues and induration of the soft tissues. Plantar spurring. CT may be useful to better assess the soft tissues relative to the osseous structures and internal. Thank you for letting us participate in the care of this patient. If you are a health care provider and have any questions regarding this report, please contact the number below. For patients who have questions please contact the health day care supervisor that requested your imaging first. Electronically signed by: Anthony Carrillo MD, [facility] ([phone]), at 02/07/2021 3:[address] Lower Extremity w Contrast Left (Exam End: 02/07/2021 5:51 PM) Impression Left lower extremity cellulitis extending from the distal tibia and fibula to the foot, with small abscess at the lateral malleolus. Thank you for letting us participate in the care of this patient. If you are a health care provider and have any questions regarding this report, please contact the number below. For patients who have questions please contact the health day care supervisor that requested your imaging first. Electronically signed by: Meli Gonzales MD, [facility] ([phone]), at 02/07/2021 6:17 PM XR Ankle Min 3 views Left (Generic) (Exam End: 02/13/2021 12:50 PM) Impression Status post removal of lateral fibula plate and screw fixation construct and transsyndesmotic screws. Thank you for letting us participate in the care of this patient. If you are a health care provider and have any questions regarding this report, please contact the number below. For patients who have questions please contact the health day care supervisor that requested your imaging first. Electronically signed by: Christian Leon MD, [facility] ([phone]), at 02/14/2021 2:58 AM XR PICC Placement Over 5 Years with Imaging Guidance (IV Team) (Exam End: 02/14/2021 9:20 AM) Impression Left-sided PICC with catheter tip projected at the cavoatrial junction. Thank you for letting us participate in the care of this patient. If you are a health care provider and have any questions regarding this report, please contact the number below. For patients who have questions please contact the health day care supervisor that requested your imaging first. Electronically signed by: BLAZE SALEEM MD, [facility] ([phone]), at 02/14/2021 9:22 AM Other studies/procedures: Procedure(s): DEBRIDEMENT SKIN AND SUBCU, LOWER EXTREMITY (WRVU 1.01) IMANI [place] 02/14/2021 * Elizabeth Keith MD - 02/14/2021 7:03 AM EDT Orthopaedic Surgery Post-Operative Progress Note Surgery/Issue: I+D/SUE L ankle Attending: Marilia Date of surgery: 02/12/2021 Subjective/Events: Patient is doing well this morning, she endorses some pain and discomfort to her ankle. No issues overnight, no nausea or vomiting. Wound VAC in place No new labs since 02/10/2021 Staph aureus growing from left ankle wound Objcetive: Temp: [36.7 ??C (98 ??F)-37.1 ??C (98.8 ??F)] Heart Rate: [80-84] Resp: [16-18] BP: (111-138)/(54-68) Intake/Output Summary (Last 24 hours) at 02/14/2021 0703 Last data filed at 02/14/2021 0303 Gross per 24 hour Intake 400 ml Output 2450 ml Net -2050 ml Lab Results Component Value Date NA 142 02/10/2021 K 3.6 02/10/2021 CL 111 (H) 02/10/2021 CO2 22 02/10/2021 BUN 11 02/10/2021 CREATININE 0.82 02/10/2021 GLUCOSE 107 02/10/2021 CALCIUM 8.5 02/10/2021 Lab Results Component Value Date WBC 6.8 02/10/2021 HGB 10.5 (L) 02/10/2021 HCT 32.6 (L) 02/10/2021 MCV 90.6 02/10/2021 PLATELET 160 02/10/2021 Exam: General: NAD, awake/alert, responds to questions CV: RRR Resp: Breathing comfortably, lungs CTAB LLE: Splint and Dressing c/d/i Decreased sensory to exposed toes, per baseline per patient Motor intact to FHL/EHL, able to wiggle other exposed toes. Brisk capillary refill distally, foot warm/well-perfused RUE: Bivalved cast, c/d/i Decreased sensation in ulnar distribution, baseline for past few weeks. Sensation intact at radial and median distributions at hand. Motor intact to shoulder abduction, finger flexion/extension Radial pulse 2+ ?? A/P: 60 y.o. female s/p I+D/ SUE L ankle on 02/12. Doing well this morning. Plan will be for I+D andeventual flap, discussed with patient. Please keep NPO for I&D and wound VAC change today. Activity: NWB RUE in cast, NWB LLE Closure: Wound vac Dressing: Wound vac Drain: Wound vac (1 black sponge) Anticoagulation: ASA 81 mg BID for 30 days Antibiotics: Vancomycin for staph aureus Consults: rec ID, hold if stable prior to OR Dispo: Per hospital course Follow-up: Pending hospital course Associated attestation - Sabrina Capellan MD - 02/15/2021 1:59 PM EDT Patient seen and examined. Agree with resident note. Micaela Capellan MD Department of Orthopaedics 02/15/21 * Mable Brooks OTA - 02/13/2021 3:51 PM EDT Occupational Therapy Note Document Type: contact Total Minutes, Occupational Therapy: 0 Reason: Attempted to see pt for OT session,RN and pt reported pt had completed bathing tasks and had transferred to commode. Will continue to follow. Pager: [phone] MARIE Thomas 02/13/2021 Occupational Therapy Rehabilitation Department * Adalberto Mckeon PA - 02/13/2021 3:42 PM EDT Hospital Medicine Daily Progress Note Admit Date: 02/07/2021 Hospital Day 6 days Hospital Problems: Active Hospital Problems Diagnosis ? ? S/P Left ankle I&D for abscess and wound dehiscence, 02/08/21 (Dr Quiñones) and 02/10/21 (Abdirahman) Resolved Hospital Problems No resolved problems to display. Non-Hospital Problems: Active Non-Hospital Problems Diagnosis ??? Closed fracture of left ankle with routine healing ??? H/O insulin dependent diabetes mellitus ??? H/O: depression ??? Hypothyroidism ??? h/o chronic headaches ??? Closed fracture of shaft of right ulna with known elbow arthrodesis RIGHT ??? Chronic pain in left shoulder ??? S/P R elbow fusion on 12/14/17 [facility] ??? Psoriasis Interval History: -OR yesterday, wound vac in place. -Plan for possible OR again tomorrow. -Continuing broad spectrum ABx - Pain well controlled with scheduled tylenol and prn oxycodone - Continues w/ bivalved cast NWB RUE w/ no pain Assessment & Plan: 60 y.o. female with past medical history of diabetes, hypothyroidism, depression, psoriasis, chronic headaches, presenting with complaints of left ankle swelling, pain, erythema and purulent drainageafter having ORIF on 01/21/2021 at [facility]. CT of the ankle showed LLE cellulitis with small abscess at the lateral malleolus. Patient remains with wound vac in place. Possibility of going back to the OR tomorrow. Will eventually need closure, but may not happen until next week. Prior to discharge, the patient will require aPICC line for long-term antibiotics. Patient is very concerned about leaving her father at home right now and is anxious to get home. Patient has been aware that she is non-weight bearing on the affected lower extremity. #LLE cellulitis and abscess: -Following recent ORIF at [facility] s/p mechanical fall w/ fracture -Reported noncompliance with weight bearing instructions etc could have contributed. - OR 02/08 for washout w/ vac placement - OR 02/10 for washout - vac still in place - NWB LLE - wound culture showing gram pos cocci - continue vancomycin - vitamin D WNL -Elevate left leg -Pain control with Tylenol, lidoderm, po oxy ?? #Right upper extremity fracture, currently in cast: -Patient feeling better with bivalved cast. We will engage orthopedic team if develops recurrent symptoms. -Elevate right upper extremity - NWB RUE - occurred 1wk before ankle fracture, also due to mechanical fall ?? #Diabetes: - continue nightly 25units lantus home dose - SSI - did not take home victoza on day of presentation - A1C on 02/07 = 7.9 - has variable blood sugars #HTN - continue home losartan #hypothyroidism - continue home levothyroxine #Depression #anxiety - wellbutrin, sertraline home meds?? Diet CHO1 IV Access PIV mIVF Tubes/Drains Wound vac GI prophylaxis Home ppi DVT prophylaxis Lovenox PT/OT/CUTTER AND PASTER PRESS CLIPPINGS PT/OT Wound Care Anticipated Disposition TBD Code Status Attempt Cardiopulmonary Resuscitation - Inpatient Team Pager (MD coverage 14/03) [phone] PCP Maryuri Evans MD Family Update Family updated by team bedside 02/11 ROS: Denies f/c/n/v/d/con, CP, SOB, abd pain, n/t, arm pain, leg pain Endorses hunger, eager to get to OR or to eat soon Vital Signs: Last 24 hrs Temperature Temp: [36.6 ??C (97.9 ??F)-37 ??C (98.6 ??F)] Heart Rate Heart Rate: [77-84] Blood Pressure BP: (106-133)/(54-88) Respiratory Rate Resp: [15-19] SpO2 SpO2: [86 %-98 %] BMI: Weight: 83 kg (183 lb) (02/07/21 1438) BMI (Calculated): 33.47 BMI Classification: Obese Intake & Output: Intake/Output Summary (Last 24 hours) at 02/13/2021 1542 Last data filed at 02/13/2021 1435 Gross per 24 hour Intake 760 ml Output 1605 ml Net -845 ml Estimated Creatinine Clearance: 73.8 mL/min (based on SCr of 0.82 mg/dL). Physical Exam: GENERAL: A&Ox4, awake, not in acute distress, calm, cooperative, appears older than chronologicage, obese, sitting up in bed resting, watching tv HEENT: PERRLA CHEST: RRR LUNGS: LSCTAB, no W/R/R, no respiratory distress, on room air ABDOMEN: NABS, soft, non-tender, non-distended, no rebound, no guarding, resonant EXTREMITIES/MSK: pulses full and equal, good CSM RUE and LLE, no edema LLE: wound vac in place, lower leg wound vac dressing CDI, strong pedal pulse, sensation RUE: in full arm bivalve cast w/o significant edema, good sensation SKIN: warm, dry, intact, no rashes/lesions/erythema NEURO: No focal deficit, CN grossly intact, spontaneously moves all extremities PSYCH: normal affect, normal mood, normal speech, no hallucinations, no dysarthria Inpatient Medications: Scheduled: ??? [START ON 02/14/2021] Vancomycin Level - MAR Order Reminder NOT APPLICABLE Once ? ? insulin lispro 1-6 Units Subcutaneous 4 Times Daily AC & HS ??? insulin lispro 0-8 Units Subcutaneous TID WC ??? vancomycin 1 g Intravenous Q12H ??? acetaminophen 1,000 mg Oral Q8H RJ ??? lidocaine 3 patch Transdermal Q24H And ??? lidocaine 3 patch Transdermal Q24H ??? senna-docusate 2 tablet Oral BID ??? polyethylene glycoL (MIRALAX) oral powder 17 g Oral Daily ??? aspirin EC 81 mg Oral Daily ??? buPROPion XL 150 mg Oral QAM ??? calcium carbonate 1,250 mg Oral Daily ??? folic acid 1 mg Oral Daily ??? gabapentin 300 mg Oral TID ??? levothyroxine 50 mcg Oral QAM ??? losartan 25 mg Oral Daily ??? multivitamin with minerals 1 tablet Oral Daily ??? pantoprazole EC 40 mg Oral Daily ??? sertraline 200 mg Oral Daily ??? topiramate 100 mg Oral BID ??? sodium chloride 0.9 % (flush) 5 mL Intravenous BID ??? insulin glargine 20 Units Subcutaneous Nightly ??? enoxaparin 40 mg Subcutaneous Nightly Continuous Infusions: PRN: hydrOXYzine, oxyCODONE, magnesium hydroxide, cyclobenzaprine, sodium chloride 0.9 % (flush), lidocaine, glucose 40% oral geL OR dextrose 10% OR glucagon, ondansetron OR ondansetron Studies reviewed in eDH and remarkable for the following: Labs: LABS: Recent Labs 02/10/21 0401 02/09/21 0513 02/08/21 0319 WBC 6.8 8.4 8.6 HGB 10.5* 12.5 13.0 HCT 32.6* 38.3 39.7 PLATELET 160 147 165 Recent Labs 02/10/21 0401 02/09/21 0513 02/08/21 0319 NA 142 141 136 K 3.6 3.8 3.7 CL 111* 110* 102 CO2 22 21* 23 BUN 11 12 13 CREATININE 0.82 0.92 0.96 No results for input(s): AST, ALT, ALKPHOS, BILITOT, BILIDIR in the last 168 hours. Recent Labs 02/10/21 0401 02/09/21 0513 02/08/21 0319 CALCIUM 8.5 8.9 9.0 No results for input(s): PT, INR, PTT in the last 168 hours. No results for input(s): CK, TROPONINT in the last 168 hours. FSBG Trend: Recent Labs 02/13/21 1154 02/13/21 0818 02/12/21 2016 02/12/21 1925 02/12/21 1748 02/12/21 1539 02/12/21 1156 02/12/21 0737 02/12/21 0422 02/11/21 2320 POCGLU 188 185 120 99 102 109 123 138 170 147 MICRO: No results for input(s): URINECULTURE in the last 720 hours. Recent Labs 02/10/21 1002 02/12/21 1743 02/12/21 1745 GRAMSTAIN Many Neutrophils seen Rare Gram Positive Cocci seen * Many Neutrophils seen Few Gram Positive Cocci seen * No Neutrophils seen. No microorganisms seen. * No Neutrophils seen. No microorganisms seen. * Recent Labs 02/07/21 1855 02/07/21 1937 BLOODCX No growth at 5 days. No growth at 5 days. ECG: No results for input(s): DIAGLINE, QTCCALC in the last 720 hours. Vascular: No results for input(s): VBTEXTRPT in the last 720 hours. Imaging: Results for orders placed or performed during the hospital encounter of 02/07/21 XR Ankle Min 3 views Left (Generic) (Exam End: 02/07/2021 3:33 PM) Impression Apparent incision and drainage laterally adjacent to open reduction internal fixation of the distal fibula. Lucency about the I and D site. Hardware appears grossly unremarkable. There is mottled gas in the soft tissues and induration of the soft tissues. Plantar spurring. CT may be useful to better assess the soft tissues relative to the osseous structures and internal. Thank you for letting us participate in the care of this patient. If you are a health care provider and have any questions regarding this report, please contact the number below. For patients who have questions please contact the health day care supervisor that requested your imaging first. Electronically signed by: Anthony Carrillo MD, [facility] ([phone]), at 02/07/2021 3:[address] Lower Extremity w Contrast Left (Exam End: 02/07/2021 5:51 PM) Impression Left lower extremity cellulitis extending from the distal tibia and fibula to the foot, with small abscess at the lateral malleolus. Thank you for letting us participate in the care of this patient. If you are a health care provider and have any questions regarding this report, please contact the number below. For patients who have questions please contact the health day care supervisor that requested your imaging first. Electronically signed by: Meli Gonzales MD, [facility] ([phone]), at 02/07/2021 6:17 PM Other studies/procedures: Procedure(s): DEBRIDEMENT SKIN AND SUBCU, LOWER EXTREMITY (WRVU 1.01) IMANI [place] 02/13/2021 * Jacqui Lo RN - 02/13/2021 2:01 PM EDTSumvalerioy: SHANTAL Progress Note IDR Rounds: Per provider: Patient not medically ready for discharge till next week. Patient likely to go home with IVABX and VNA services with support of family. Services: 1.?[facility] ?? PHONE: [phone] FAX: [phone] 2.[facility] ?[place] or ? 3.?Name: [facility] Tel.#: ext [phone] fax#: Equipment ordered:wound vac Transport: family A member of the Care Management team will continue to monitor progress, follow for continuity of care and assist with transition of care planning. Jacqui Lo RN, BSN, MST, ACM Mold Filling Operator pager#[phone] * Nilton Nicole MD - 02/13/2021 5:43 AM EDT Orthopaedic Surgery Post-Operative Progress Note Surgery/Issue: I+D/SUE L ankle Attending: Marilia Date of surgery: 02/12/2021 Subjective/Events: Patient doing well this morning, discussed plan going forward. No CP, SOB, N/V, other issues. Objcetive: Temp: [36.6 ??C (97.9 ??F)-37.2 ??C (99 ??F)] Heart Rate: [77-84] Resp: [15-19] BP: (106-133)/(54-88) Intake/Output Summary (Last 24 hours) at 02/13/2021 0545 Last data filed at 02/13/2021 0400 Gross per 24 hour Intake 760 ml Output 1755 ml Net -995 ml Lab Results Component Value Date NA 142 02/10/2021 K 3.6 02/10/2021 CL 111 (H) 02/10/2021 CO2 22 02/10/2021 BUN 11 02/10/2021 CREATININE 0.82 02/10/2021 GLUCOSE 107 02/10/2021 CALCIUM 8.5 02/10/2021 Lab Results Component Value Date WBC 6.8 02/10/2021 HGB 10.5 (L) 02/10/2021 HCT 32.6 (L) 02/10/2021 MCV 90.6 02/10/2021 PLATELET 160 02/10/2021 Exam: General: NAD, awake/alert, responds to questions CV: RRR Resp: Breathing comfortably, lungs CTAB LLE: Splint and Dressing c/d/i Decreased sensory to exposed toes, per baseline per patient Motor intact to FHL/EHL, able to wiggle other exposed toes. Brisk capillary refill distally, foot warm/well-perfused RUE: Bivalved cast, c/d/i Decreased sensation in ulnar distribution, baseline for past few weeks. Sensation intact at radial and median distributions at hand. Motor intact to shoulder abduction, finger flexion/extension Radial pulse 2+ ?? A/P: 60 y.o. female POD#2 s/p I+D/ SUE L ankle. Doing well this morning. Plan will be for I+D and eventual flap, discussed with patient. Please keep NPO MN. Activity: NWB RUE in cast, NWB LLE Closure: Wound vac Dressing: Wound vac Drain: Wound vac (1 black sponge) Anticoagulation: ASA 81 mg BID for 30 days Antibiotics: per ID Consults: rec ID, hold if stable prior to OR Dispo: Per hospital course Follow-up: Pending hospital course Associated attestation - Sabrina Capellan MD - 02/15/2021 5:06 PM EDT Patient seen and examined. Agree with resident note. Micaela Capellan MD Department of Orthopaedics 02/15/21 * Nicolle Sorenson MD - 02/12/2021 9:01 PM EDT Orthopaedic Surgery Post-Operative Progress Note Surgery/Issue: I+D/SUE L ankle Attending: MD Marilia Date of surgery: 02/12/2021 Subjective/Events: Patient denies chest pain, shortness of breath, nausea, vomiting, numbness/weakness. Pain well-controlled. Just ate dinner, eagerly. Asking about dispo plans. Objcetive: Temp: [36.7 ??C (98.1 ??F)-37.2 ??C (99 ??F)] Heart Rate: [77-84] Resp: [15-19] BP: (106-173)/(54-88) Intake/Output Summary (Last 24 hours) at 02/12/2021 1931 Last data filed at 02/12/2021 1830 Gross per 24 hour Intake 400 ml Output 2905 ml Net -2505 ml Lab Results Component Value Date NA 142 02/10/2021 K 3.6 02/10/2021 CL 111 (H) 02/10/2021 CO2 22 02/10/2021 BUN 11 02/10/2021 CREATININE 0.82 02/10/2021 GLUCOSE 107 02/10/2021 CALCIUM 8.5 02/10/2021 Lab Results Component Value Date WBC 6.8 02/10/2021 HGB 10.5 (L) 02/10/2021 HCT 32.6 (L) 02/10/2021 MCV 90.6 02/10/2021 PLATELET 160 02/10/2021 Exam: General: NAD, awake/alert, responds to questions CV: RRR Resp: Breathing comfortably, lungs CTAB LLE: Splint and Dressing c/d/i No sensory to exposed toes, per baseline per patient Motor intact to FHL/EHL, able to wiggle other exposed toes. Brisk capillary refill distally, foot warm/well-perfused A/P: 60 y.o. female POD#0 s/p I+D/ SUE L ankle. Recovering well postop without any acute issues. Activity: NWB RUE in cast, NWB LLE Closure: Wound vac Dressing: Wound vac Drain: Wound vac (1 black sponge) Anticoagulation: ASA 81 mg BID for 30 days Antibiotics: per ID Consults: rec ID, hold if stable prior to OR Dispo: Per hospital course Follow-up: Pending hospital course Associated attestation - Sabrina Capellan MD - 02/13/2021 8:56 AM EDT Patient seen and examined. Agree with resident note. Micaela Capellan MD Department of Orthopaedics 02/13/21 * Yosef Power RN - 02/12/2021 6:37 PM EDT Pt arrived in PACU at 1743, s/p left ankle debridement and sponge change out. Pt was on 6L simple mask, and within 10 minutes of arrival was successfully transitioned to RA without issue. Pt's pain was initially 10/10 in right ankle, for which she was given 2 doses of dilaudid IV, from a covering Nupur Burdick. See MAR. Pt pain now a 2. She was transitioned to phase 2 at 1830, and Nupur called report to Liane on 1west. Pt to go back to pre surgery inpatient room. Pt transferred at 1835 * Nupur Burdick RN - 02/12/2021 6:23 PM EDT Pt dory po sips. States pain is much better. Report to Liane on 1w. * Jacqui Lo RN - 02/12/2021 12:10 PM EDTSummary: SHANTAL Progress Note OFFICE OF CARE MANAGEMENT Mold Filling Operator Follow-up Note S/O: Discussed plan of care with Primary team and Nursing to assess continuing care and discharge needs. LOS: 4 days Primary Insurance: MEDICAID [place] Secondary Insurance: N/A DECISION MAKER: Patient able to make decisions for herself. No ADs on file in [facility]. Pt continues to require hospitalization for: 02/12 Dr. Yarbrough Progress Note: Date of surgery: 02/08/2021, 02/10/21 Surgery/Issue: 1. Hx left ankle fx s/p ORIF now s/p I&D of L ankle infected wound (02/08, 02/10) 2. Periprosthetic ulna fx being managed in cast- cast feeling tight, now s/p bivalve Current referrals in place: 1. [facility] PHONE: [phone] FAX: [phone] 2.[place], [place] or 3. Name: [facility] Tel.#: ext [phone] fax#: Equipment ordered:wound vac Blindstitch Lapel Padder asking RS to please place referral to: [place], [place] or A: Patient is nearing medical readiness for discharge if Ortho is able to close her wound and her cultures come back negative so a PICC line can be placed for IVABX at discharge. Patient likely medically ready for discharge over the weekend. P:Mold Filling Operator to follow with team and family to assist with discharge needs when patient ready fordischarge. Jacqui Lo RN, Mold Filling Operator Pager #[phone] * Cami Ugarte, SREE - 02/12/2021 8:19 AM EDT [facility] Medicine Daily Progress Note Admit Date: 02/07/2021 Hospital Day 5 days Hospital Problems: Active Hospital Problems Diagnosis ? ? S/P Left ankle I&D for abscess and wound dehiscence, 02/08/21 (Dr Quiñones) and 02/10/21 (Abdirahman) Resolved Hospital Problems No resolved problems to display. Non-Hospital Problems: Active Non-Hospital Problems Diagnosis ??? Closed fracture of left ankle with routine healing ??? H/O insulin dependent diabetes mellitus ??? H/O: depression ??? Hypothyroidism ??? h/o chronic headaches ??? Closed fracture of shaft of right ulna with known elbow arthrodesis RIGHT ??? Chronic pain in left shoulder ??? S/P R elbow fusion on 12/14/17 [place] ??? Psoriasis Interval History: - Due for OR today for vac change with possible closure, may be unable due to ortho scheduling issues - If unable to go, will let pt eat then NPO at [place] for OR tomorrow - Pain well controlled with scheduled tylenol and prn oxycodone - Continues w/ bivalved cast NWB RUE w/ no pain Assessment & Plan: 60 y.o. female with past medical history of diabetes, hypothyroidism, depression, psoriasis, chronic headaches, presenting with complaints of left ankle swelling, pain, erythema and purulent drainageafter having ORIF on 01/21/2021 at [facility]. CT of the ankle showed LLE cellulitis with small abscess at the lateral malleolus. May be unable to go to OR as planned today for vac removal and wound closure due to ortho scheduling issues, waiting to confirm, if unable to go will let pt eat then make NPO at [place] for OR tomorrow. As above, pain adequately controlled on current regimen. ID following. Will need PICC for OPAT, last cx 02/10 positive, will delay PICC placement until next cultures obtained and negative--will need it to be in LUE. Continues with bivalved cast and NWB in RUE. Patient plans to return home. She has many family members in the home. ?? #LLE cellulitis and abscess: -Following recent ORIF at [facility] s/p mechanical fall w/ fracture -Reported noncompliance with weight bearing instructions etc could have contributed. - OR 02/08 for washout w/ vac placement - OR 02/10 for washout - vac still in place - NWB LLE - wound culture showing gram pos cocci - continue vancomycin - vitamin D WNL -Elevate left leg -Pain control with Tylenol, lidoderm, po oxy ?? #Right upper extremity fracture, currently in cast: -Patient feeling better with bivalved cast. We will engage orthopedic team if develops recurrent symptoms. -Elevate right upper extremity - NWB RUE - occurred 1wk before ankle fracture, also due to mechanical fall ?? #Diabetes: - continue nightly 25units lantus home dose - SSI - did not take home victoza on day of presentation - A1C on 02/07 = 7.9 - has variable blood sugars #HTN - continue home losartan #hypothyroidism - continue home levothyroxine #Depression #anxiety - wellbutrin, sertraline home meds?? Diet CHO1 IV Access PIV mIVF Tubes/Drains Wound vac GI prophylaxis Home ppi DVT prophylaxis Lovenox PT/OT/CUTTER AND PASTER [employer]ESS CLIPPINGS PT/OT Wound Care Anticipated Disposition TBD Code Status Attempt Cardiopulmonary Resuscitation - Inpatient Team Pager ( coverage 14/03) [phone] PCP Maryuri Evans MD Family Update Family updated by team bedside 02/11 ROS: Denies f/c/n/v/d/con, CP, SOB, abd pain, n/t, arm pain, leg pain Endorses hunger, eager to get to OR or to eat soon Vital Signs: Last 24 hrs Temperature Temp: [36.7 ??C (98.1 ??F)-37.2 ??C (99 ??F)] Heart Rate Heart Rate: -- Blood Pressure BP: (123-173)/(61-67) Respiratory Rate Resp: [16-18] SpO2 SpO2: [81 %-98 %] BMI: Weight: 83 kg (183 lb) (02/07/21 1438) BMI (Calculated): 33.47 BMI Classification: Obese Intake & Output: Intake/Output Summary (Last 24 hours) at 02/12/2021 1248 Last data filed at 02/12/2021 1222 Gross per 24 hour Intake 340 ml Output 2600 ml Net -2260 ml Estimated Creatinine Clearance: 73.8 mL/min (based on SCr of 0.82 mg/dL). Physical Exam: GENERAL: A&Ox4, awake, not in acute distress, calm, cooperative, appears older than chronologicage, obese, sitting up in bed resting, watching tv HEENT: PERRLA CHEST: RRR LUNGS: LSCTAB, no W/R/R, no respiratory distress, on room air ABDOMEN: NABS, soft, non-tender, non-distended, no rebound, no guarding, resonant EXTREMITIES/MSK: pulses full and equal, good CSM RUE and LLE, no edema LLE: wound vac in place, lower leg wound vac dressing CDI, strong pedal pulse, sensation RUE: in full arm bivalve cast w/o significant edema, good sensation SKIN: warm, dry, intact, no rashes/lesions/erythema NEURO: No focal deficit, CN grossly intact, spontaneously moves all extremities PSYCH: normal affect, normal mood, normal speech, no hallucinations, no dysarthria Inpatient Medications: Scheduled: ? ? insulin lispro 1-6 Units Subcutaneous 4 Times Daily AC & HS ??? insulin lispro 0-8 Units Subcutaneous TID WC ??? Vancomycin Level - MAR Order Reminder NOT APPLICABLE Once ??? vancomycin 1 g Intravenous Q12H ??? acetaminophen 1,000 mg Oral Q8H RJ ??? lidocaine 3 patch Transdermal Q24H And ??? lidocaine 3 patch Transdermal Q24H ??? senna-docusate 2 tablet Oral BID ??? polyethylene glycoL (MIRALAX) oral powder 17 g Oral Daily ??? aspirin EC 81 mg Oral Daily ??? buPROPion XL 150 mg Oral QAM ??? calcium carbonate 1,250 mg Oral Daily ??? folic acid 1 mg Oral Daily ??? gabapentin 300 mg Oral TID ??? levothyroxine 50 mcg Oral QAM ??? losartan 25 mg Oral Daily ??? multivitamin with minerals 1 tablet Oral Daily ??? pantoprazole EC 40 mg Oral Daily ??? sertraline 200 mg Oral Daily ??? topiramate 100 mg Oral BID ??? sodium chloride 0.9 % (flush) 5 mL Intravenous BID ??? insulin glargine 20 Units Subcutaneous Nightly ??? enoxaparin 40 mg Subcutaneous Nightly Continuous Infusions: PRN: hydrOXYzine, oxyCODONE, magnesium hydroxide, cyclobenzaprine, sodium chloride 0.9 % (flush), lidocaine, glucose 40% oral geL OR dextrose 10% OR glucagon, ondansetron OR ondansetron Studies reviewed in eDH and remarkable for the following: Labs: LABS: Recent Labs 02/10/21 0401 02/09/21 0513 02/08/21 0319 WBC 6.8 8.4 8.6 HGB 10.5* 12.5 13.0 HCT 32.6* 38.3 39.7 PLATELET 160 147 165 Recent Labs 02/10/21 0401 02/09/21 0513 02/08/21 0319 NA 142 141 136 K 3.6 3.8 3.7 CL 111* 110* 102 CO2 22 21* 23 BUN 11 12 13 CREATININE 0.82 0.92 0.96 No results for input(s): AST, ALT, ALKPHOS, BILITOT, BILIDIR in the last 168 hours. Recent Labs 02/10/21 0401 02/09/21 0513 02/08/21 0319 CALCIUM 8.5 8.9 9.0 No results for input(s): PT, INR, PTT in the last 168 hours. No results for input(s): CK, TROPONINT in the last 168 hours. FSBG Trend: Recent Labs 02/12/21 1156 02/12/21 0737 02/12/21 0422 02/11/21 2320 02/11/21 1959 02/11/21 1602 02/11/21 1335 02/11/21 1128 02/11/21 0742 02/11/21 0357 POCGLU 123 138 170 147 213* 129 152 284* 133 267* MICRO: No results for input(s): URINECULTURE in the last 720 hours. Recent Labs 02/08/21 1030 02/10/21 1002 GRAMSTAIN Few Neutrophils seen Moderate Gram Positive Cocci * Few Neutrophils seen Rare Gram Positive Cocci seen * Moderate Neutrophils Many Gram Positive Cocci seen * Many Neutrophils seen Rare Gram Positive Cocci seen * Many Neutrophils seen Few Gram Positive Cocci seen * Recent Labs 02/07/21 1855 02/07/21 1937 BLOODCX No growth at 4 days. No growth at 4 days. ECG: No results for input(s): DIAGLINE, QTCCALC in the last 720 hours. Vascular: No results for input(s): VBTEXTRPT in the last 720 hours. Imaging: Results for orders placed or performed during the hospital encounter of 02/07/21 XR Ankle Min 3 views Left (Generic) (Exam End: 02/07/2021 3:33 PM) Impression Apparent incision and drainage laterally adjacent to open reduction internal fixation of the distal fibula. Lucency about the I and D site. Hardware appears grossly unremarkable. There is mottled gas in the soft tissues and induration of the soft tissues. Plantar spurring. CT may be useful to better assess the soft tissues relative to the osseous structures and internal. Thank you for letting us participate in the care of this patient. If you are a health care provider and have any questions regarding this report, please contact the number below. For patients who have questions please contact the health day care supervisor that requested your imaging first. Lower Extremity w Contrast Left (Exam End: 02/07/2021 5:51 PM) Impression Left lower extremity cellulitis extending from the distal tibia and fibula to the foot, with small abscess at the lateral malleolus. Thank you for letting us participate in the care of this patient. If you are a health care provider and have any questions regarding this report, please contact the number below. For patients who have questions please contact the health day care supervisor that requested your imaging first. Other studies/procedures: Procedure(s): DEBRIDEMENT SKIN AND SUBCU, LOWER EXTREMITY (WRVU 1.01) Cami Ugarte APRN 02/12/2021 * Seth Yarbrough MD - 02/12/2021 5:58 AM EDT ORTHOPAEDIC SURGERY INPATIENT PROGRESS NOTE Patient Name: Jesenia Méndez Age: 60 y.o. Attending: Dr. Quiñones Date of surgery: 02/08/2021, 02/10/21 Surgery/Issue: 1. Hx left ankle fx s/p ORIF now s/p I&D of L ankle infected wound (02/08, 02/10) 2. Periprosthetic ulna fx being managed in cast- cast feeling tight, now s/p bivalve SUBJECTIVE / INTERVAL HISTORY: Ms Méndez is doing well this morning. MSSA and enterococcus on cultures. Has been NPO since midnight. FOCUSED REVIEW OF SYSTEMS: as above. Active Hospital Problems Diagnosis ? ? S/P Left ankle I&D for abscess and wound dehiscence, 02/08/21 (Dr Quiñones) and 02/10/21 (Abdirahman) Resolved Hospital Problems No resolved problems to display. Active Non-Hospital Problems Diagnosis ??? Closed fracture of left ankle with routine healing ??? H/O insulin dependent diabetes mellitus ??? H/O: depression ??? Hypothyroidism ??? h/o chronic headaches ??? Closed fracture of shaft of right ulna with known elbow arthrodesis RIGHT ??? Chronic pain in left shoulder ??? S/P R elbow fusion on 12/14/17 [place] ??? Psoriasis MEDICATIONS: ??? POCT Fingerstick Glucose AND insulin lispro (HumaLOG;Admelog) (100 unit/mL) subcutaneous injection vial 1-6 Units ??? insulin lispro (HumaLOG;Admelog) (100 unit/mL) subcutaneous injection vial 0-8 Units ??? Vancomycin Level - MAR Order Reminder ??? [COMPLETED] vancomycin (Vancocin) 2 gram in sodium chloride 0.9% 500 mL infusion FOLLOWED BY vancomycin (Vancocin) 1 gram in sodium chloride 0.9% 250 mL infusion ??? acetaminophen (Tylenol) tablet 1,000 mg ??? lidocaine (Lidoderm) 5% topical patch 3 patch AND lidocaine (Lidoderm) topical patch REMOVAL ??? hydrOXYzine (Atarax) tablet 50 mg ??? oxyCODONE (Roxicodone) tablet 5 mg ??? senna-docusate (Pericolace) 8.6-50 mg per tablet 2 tablet ??? polyethylene glycoL (Miralax) packet 17 g ??? magnesium hydroxide (Milk of Magnesia) (240 mg/mL) oral liquid 30 mL ??? aspirin EC tablet 81 mg ??? buPROPion XL (Wellbutrin XL) tablet 150 mg ??? calcium carbonate (Tums) chewable tablet 1,250 mg ??? cyclobenzaprine (Flexeril) tablet 10 mg ??? folic acid (Folvite) tablet 1,000 mcg ??? gabapentin (Neurontin) capsule 300 mg ??? levothyroxine (Synthroid) tablet 50 mcg ??? losartan (Cozaar) tablet 25 mg ??? multivitamin with minerals (THERA-M) tablet 1 tablet ??? pantoprazole EC (Protonix) tablet 40 mg ??? sertraline (Zoloft) tablet 200 mg ??? topiramate (Topamax) tablet 100 mg ??? sodium chloride 0.9 % (flush) flush 5 mL ??? sodium chloride 0.9 % (flush) flush 5-20 mL ??? lidocaine (Xylocaine) 1% (10 mg/mL) injection 3 mg ??? glucose (GLUTOSE) 40% oral geL OR dextrose 10% infusion OR glucagon (Glucagen) (1 mg/mL) injection solution 1 mg ??? ondansetron (Zofran) tablet 4-8 mg OR ondansetron (pf) (Zofran) (2 mg/mL) injection 4-8 mg ??? insulin glargine (Lantus) (100 unit/mL) subcutaneous injection vial 20 Units ??? enoxaparin (Lovenox) (40 mg/0.4 mL) subcutaneous injection 40 mg OBJECTIVE: Temp: [36.7 ??C (98.1 ??F)-37.2 ??C (98.9 ??F)] Resp: [16-18] BP: (120-173)/(62-68) Intake/Output Summary (Last 24 hours) at 02/12/2021 0558 Last data filed at 02/12/2021 0554 Gross per 24 hour Intake 1440 ml Output 2600 ml Net -1160 ml Body mass index is 33.47 kg/m??. PE: General: awake/alert, responds to questions CV: RRR assessed peripherally Resp: Breathing comfortably on RA LLE: Dressing c/d/i, wound vac to suction Sensory absent in DP, decreased in SP/T (baseline) Motor intact to FHL/EHL/TA Brisk capillary refill distally, foot warm/well-perfused RUE: Bivalved cast, c/d/i Decreased sensation in ulnar distribution, baseline for past few weeks. Sensation intact at radial and median distributions at hand. Motor intact to shoulder abduction, finger flexion/extension Radial pulse 2+ Lab Results Component Value Date NA 142 02/10/2021 K 3.6 02/10/2021 CL 111 (H) 02/10/2021 CO2 22 02/10/2021 BUN 11 02/10/2021 CREATININE 0.82 02/10/2021 GLUCOSE 107 02/10/2021 CALCIUM 8.5 02/10/2021 Lab Results Component Value Date WBC 6.8 02/10/2021 HGB 10.5 (L) 02/10/2021 HCT 32.6 (L) 02/10/2021 MCV 90.6 02/10/2021 PLATELET 160 02/10/2021 ASSESSMENT / PLAN: Jesenia Méndez is a 60 y.o. female 2 Days Post-Op s/p L ankle I&D. Doing well post-operatively. Wound vac to suction. Intra-op cxs growing MSSAs, appreciate recs per ID. Planfor return to OR today for repeat I&D. Activity: NWB RUE in cast, NWB LLE Closure: Wound vac Dressing: Wound vac Drain: Wound vac (1 black, 1 white sponge) Anticoagulation: ASA 81 mg BID for 30 days Antibiotics: per ID, currently on vanc Consults: rec ID, hold if stable prior to OR Dispo: Per hospital course Follow-up: Pending hospital course Seth Yarbrough MD 02/12/2021 Future Appointments Date Time Provider Department Center 03/20/2021 1:00 PM [facility] [place] 03/20/2021 1:30 PM [facility] DX ROOM 3 MH Xray [facility] Rad 03/20/2021 2:20 PM Dorina Campbell, GEOTHERMAL SYSTEM INSTALLER [facility] [place] * Yamilex Ruiz, PAINT POURER - 02/11/2021 2:33 PM EDT Physical Therapy Note Treatment Number PT: 2 Patient profile: Jesenia Méndez??is a 60 y.o.??female??with PMH significant for ID T2DM, R elbow fusion with serial casting, and L ankle fracture S/P ORIF at [facility] (01/21/21)??who presented to the ED for??RUE cast problem and L ankle pain and redness. OR for ankle I and D, wound vac placement. Interval History: JENNA Social History: Lives with her father and DIL in a single level home Bathroom Set-up:??shower with shower chair, has been sponge bathing Stairs:??ramp Baseline Mobility:assist of 1 to pivot to toilet or WC?? Equipment at home:??WC, FWW, crutches, shower seat Fall history:??fell which led to these injuries, prior to that , she was drving. ?? Precautions/Special Considerations: NWB RUE and NWB LLE Mobility and Positioning Recommendations: ?? Pt to stand pivot with min assist. ?? Please encourage up to chair for meal times as able. Subjective: I just found out my w/c doesn't have removable arms. Objective: Patient seen for physical therapy and demonstrated the following: Pain: Number Location At rest 2/10 ankle With activity 2/10 ankle Vital Signs: Stable Bed Mobility: up in chair Transfers: Sit to Stand: contact guard assist Stand to Sit: contact guard assist Commode to Chair: contact guard assist using no assistive device. Assist needed for self care. Gait: NA Balance: Sitting Static: good Sitting Dynamic: good Standing Static: Fair Standing Dynamic / Gait: Poor Education: Pt ed: re stand pivot transfers and w/c mobility Pt left in bedside recliner chair and with all needs met following visit. Assessment: Jesenia Méndez was seen today for physical therapy treatment session for continuationof POC. Patient able to perform stand pivot transfers with good safety awareness. Unfortunately just learned her home w/c does not have removable arm rests so slideboard transfers is not an option. PT updated with info. At this point patient is CGA for stand pivot transfers which will be her baseline until her WBing is progressed. Primary PT agreeable with home plan. Pt will benefit from ongoing therapeutic interventions to achieve therapy goals. Discharge Recommendations: Based on the current findings, Anticipated Discharge Disposition (PT): home, home with supervision when medically ready for hospital discharge. Consult Recommendations: No other consults recommended at this time. Equipment needs: Anticipated Equipment Needs at Discharge (PT): None Physical Therapy Goals: To be achieved by 02/12 ?? 1. Pt. to demonstrate knowledge of safety limitations and precautions and will appropriately request assistance for functional activities and to mobilize. 2. Pt. to demonstrate understanding of appropriate bed exercises. 3. Pt. to perform bed mobility independently. 4. Pt. to perform sit to stand transfers with supervision using a slideboard. 5. Pt. to propel the WC x 100 ft with supervision using RLE and LUE Family or caregiver to demonstrate understanding of therapeutic interventions to support the care of the patient. Plan: Therapy Frequency (PT): Monitor for therapy interventions as outlined in initial evaluation. Patient agrees with plan as stated. Total Minutes, Physical Therapy: 10 (TE-F 1 Time in 14:18-14:28) YAMILEX RUIZ PTA Pager: [phone] Physical Therapy Inpatient Rehabilitation Department * Dali Guerrier, GEOTHERMAL SYSTEM INSTALLER - 02/11/2021 1:48 PM EDT [facility] Medicine Daily Progress Note Admit Date: 02/07/2021 Hospital Day 4 days Hospital Problems: Active Hospital Problems Diagnosis ? ? S/P Left ankle I&D for abscess and wound dehiscence, 02/08/21 (Dr Quiñones) and 02/10/21 (Abdirahman) Resolved Hospital Problems No resolved problems to display. Non-Hospital Problems: Active Non-Hospital Problems Diagnosis ??? Closed fracture of left ankle with routine healing ??? H/O insulin dependent diabetes mellitus ??? H/O: depression ??? Hypothyroidism ??? h/o chronic headaches ??? Closed fracture of shaft of right ulna with known elbow arthrodesis RIGHT ??? Chronic pain in left shoulder ??? S/P R elbow fusion on 12/14/17 [facility] ??? Psoriasis Interval History: - OR yesterday with wound vac continues - pain controlled with scheduled tylenol and PRN oxycodone Assessment & Plan: 60 y.o. female with past medical history of diabetes, hypothyroidism, depression, psoriasis, chronic headaches, presenting with complaints of left ankle swelling, pain, erythema and purulent drainageafter having ORIF on 01/21/2021 at [facility]. CT of the ankle showed LLE cellulitis with small abscess at the lateral malleolus. Patient went to OR yesterday for I&D. Wound vac remains in place. Patient's pain adequately controlled with PRN oxycodone. Plan for OR again tomorrow. ID consulted. Patient will need PICC. Will need placed in LUE. Patient plans to return home. She has many family members in the home. Patient's dad at bedside and updated. ?? #LLE cellulitis and abscess: -Following recent ORIF at [facility] s/p mechanical fall w/ fracture -Reported noncompliance with weight bearing instructions etc could have contributed. - OR 02/08 for washout w/ vac placement - OR 02/10 for washout - vac still in place - NWB LLE - wound culture showing gram pos cocci - continue vancomycin - vitamin D WNL -Elevate left leg -Pain control with Tylenol, lidoderm, po oxy ?? #Right upper extremity fracture, currently in cast: -Patient feeling better with bivalved cast. We will engage orthopedic team if develops recurrent symptoms. -Elevate right upper extremity - NWB RUE - occurred 1wk before ankle fracture, also due to mechanical fall ?? #Diabetes: - continue nightly 25units lantus home dose - SSI - did not take home victoza on day of presentation - A1C on 02/07 = 7.9 - has variable blood sugars #HTN - continue home losartan #hypothyroidism - continue home levothyroxine #Depression #anxiety - wellbutrin, sertraline home meds?? Diet CHO1 IV Access PIV mIVF Tubes/Drains Wound vac GI prophylaxis Home ppr DVT prophylaxis Lovenox PT/OT/CUTTER AND PASTER PRESS CLIPPINGS PT/OT Wound Care Anticipated Disposition TBD Code Status Attempt Cardiopulmonary Resuscitation - Inpatient Team Pager (MD coverage 14/03) [phone] PCP Maryuri Evans MD Family Update Family updated by team bedside 02/11 ROS: Denies f/c/n/v/d/con, CP, SOB, abd pain, n/t, arm pain Endorses pain around left ankle that has improved with oxycodone Vital Signs: Last 24 hrs Temperature Temp: [36.7 ??C (98.1 ??F)-37.5 ??C (99.5 ??F)] Heart Rate Heart Rate: -- Blood Pressure BP: (120-146)/(62-76) Respiratory Rate Resp: [16-18] SpO2 SpO2: [94 %-97 %] BMI: Weight: 83 kg (183 lb) (02/07/21 1438) BMI (Calculated): 33.47 BMI Classification: Obese Intake & Output: Intake/Output Summary (Last 24 hours) at 02/11/2021 1348 Last data filed at 02/11/2021 1200 Gross per 24 hour Intake 1700 ml Output 2200 ml Net -500 ml Estimated Creatinine Clearance: 73.8 mL/min (based on SCr of 0.82 mg/dL). Physical Exam: GENERAL: A&Ox4, awake, not in acute distress, calm, cooperative, appears older than chronologicage, obese, sitting in chair eating lunch, dad at bedside HEENT: PERRLA CHEST: RRR LUNGS: LSCTAB, no W/R/R, no respiratory distress ABDOMEN: NABS, soft, non-tender, non-distended, no rebound, no guarding, resonant EXTREMITIES/MSK: pulses full and equal, good CSM RUE and LLE, no edema LLE: wound vac in place, lower leg in CDI dali, strong pedal pulse, sensation RUE: in full arm bivalve cast w/o significant edema, good sensation, using casted arm well to help feed self SKIN: warm, dry, intact, no rashes/lesions/erythema NEURO: No focal deficit, CN grossly intact, spontaneously moves all extremities PSYCH: normal affect, normal mood, normal speech, no hallucinations, no dysarthria Inpatient Medications: Scheduled: ? ? insulin lispro 1-6 Units Subcutaneous 4 Times Daily AC & HS ??? insulin lispro 0-8 Units Subcutaneous TID WC ??? [START ON 02/12/2021] Vancomycin Level - MAR Order Reminder NOT APPLICABLE Once ??? vancomycin 1 g Intravenous Q12H ??? acetaminophen 1,000 mg Oral Q8H RJ ??? lidocaine 3 patch Transdermal Q24H And ??? lidocaine 3 patch Transdermal Q24H ??? senna-docusate 2 tablet Oral BID ??? polyethylene glycoL (MIRALAX) oral powder 17 g Oral Daily ??? aspirin EC 81 mg Oral Daily ??? buPROPion XL 150 mg Oral QAM ??? calcium carbonate 1,250 mg Oral Daily ??? folic acid 1 mg Oral Daily ??? gabapentin 300 mg Oral TID ??? levothyroxine 50 mcg Oral QAM ??? losartan 25 mg Oral Daily ??? multivitamin with minerals 1 tablet Oral Daily ??? pantoprazole EC 40 mg Oral Daily ??? sertraline 200 mg Oral Daily ??? topiramate 100 mg Oral BID ??? sodium chloride 0.9 % (flush) 5 mL Intravenous BID ??? insulin glargine 20 Units Subcutaneous Nightly ??? enoxaparin 40 mg Subcutaneous Nightly Continuous Infusions: PRN: hydrOXYzine, oxyCODONE, magnesium hydroxide, cyclobenzaprine, sodium chloride 0.9 % (flush), lidocaine, glucose 40% oral geL OR dextrose 10% OR glucagon, ondansetron OR ondansetron Studies reviewed in eDH and remarkable for the following: Labs: LABS: Recent Labs 02/10/21 0401 02/09/21 0513 02/08/21 0319 WBC 6.8 8.4 8.6 HGB 10.5* 12.5 13.0 HCT 32.6* 38.3 39.7 PLATELET 160 147 165 Recent Labs 02/10/21 0401 02/09/21 0513 02/08/21 0319 NA 142 141 136 K 3.6 3.8 3.7 CL 111* 110* 102 CO2 22 21* 23 BUN 11 12 13 CREATININE 0.82 0.92 0.96 No results for input(s): AST, ALT, ALKPHOS, BILITOT, BILIDIR in the last 168 hours. Recent Labs 02/10/21 0401 02/09/21 0513 02/08/21 0319 CALCIUM 8.5 8.9 9.0 No results for input(s): PT, INR, PTT in the last 168 hours. No results for input(s): CK, TROPONINT in the last 168 hours. FSBG Trend: Recent Labs 02/11/21 1335 02/11/21 1128 02/11/21 0742 02/11/21 0357 02/10/21 2355 02/10/21 2110 02/10/21 1855 02/10/21 1544 02/10/21 1146 02/10/21 1040 POCGLU 152 284* 133 267* 190 225* 346* 284* 154 132 MICRO: No results for input(s): URINECULTURE in the last 720 hours. Recent Labs 02/08/21 1030 02/10/21 1002 GRAMSTAIN Few Neutrophils seen Moderate Gram Positive Cocci * Few Neutrophils seen Rare Gram Positive Cocci seen * Moderate Neutrophils Many Gram Positive Cocci seen * Many Neutrophils seen Rare Gram Positive Cocci seen * Many Neutrophils seen Few Gram Positive Cocci seen * Recent Labs 02/07/21 1855 02/07/21 1937 BLOODCX No growth at 3 days. No growth at 3 days. ECG: No results for input(s): DIAGLINE, QTCCALC in the last 720 hours. Vascular: No results for input(s): VBTEXTRPT in the last 720 hours. Imaging: Results for orders placed or performed during the hospital encounter of 02/07/21 XR Ankle Min 3 views Left (Generic) (Exam End: 02/07/2021 3:33 PM) Impression Apparent incision and drainage laterally adjacent to open reduction internal fixation of the distal fibula. Lucency about the I and D site. Hardware appears grossly unremarkable. There is mottled gas in the soft tissues and induration of the soft tissues. Plantar spurring. CT may be useful to better assess the soft tissues relative to the osseous structures and internal. Thank you for letting us participate in the care of this patient. If you are a health care provider and have any questions regarding this report, please contact the number below. For patients who have questions please contact the health day care supervisor that requested your imaging first. Electronically signed by: Anthony Carrillo MD, [facility] ([phone]), at 02/07/2021 3:[address] Lower Extremity w Contrast Left (Exam End: 02/07/2021 5:51 PM) Impression Left lower extremity cellulitis extending from the distal tibia and fibula to the foot, with small abscess at the lateral malleolus. Thank you for letting us participate in the care of this patient. If you are a health care provider and have any questions regarding this report, please contact the number below. For patients who have questions please contact the health day care supervisor that requested your imaging first. Electronically signed by: [facility]eli Gonzales [facility] ([phone]), at 02/07/2021 6:17 PM Other studies/procedures: Procedure(s): DEBRIDEMENT SKIN AND SUBCU, LOWER EXTREMITY (WRVU 1.01) Dali Guerrier APRN 02/11/2021 * Mable Brooks OTA - 02/11/2021 12:47 PM EDT Occupational Therapy Treatment Note Treatment Number OT: 2 Patient Dx: Jesenia Méndez is a 60 y.o. female with PMH significant for ID T2DM, R elbow fusion with serial casting, and L ankle fracture S/P ORIF at [facility] (01/21/21)??who presented to the ED for??RUE cast problem and L ankle pain and redness. OR for ankle I and D, wound vac placement performed by Dr. Quiñones on 02/08. Plan to return to the OR 02/10 for I&D and possible closure. ?? Past Surgical History: Procedure Laterality Date ??? PRO ALVEOLOPLASTY W EXTRACTIONS, 4 OR MORE TEETH, PER QUADRANT N/A 09/11/2019 ?? ALVEOPLASTY,IN CONJUNCTION WITH EXTRACTIONS,PER QUADRANT,ENT (WRVU 4.06) performed by Wesley Jacobo MD at [facility] ? ? PRO DEBRIDEMENT SUBCUTANEOUS TISSUE 20 SQCM/< Left 02/08/2021 ?? DEBRIDEMENT SKIN AND SUBCU, LOWER EXTREMITY (WRVU 1.01) performed by Henrry Quiñones MD at [facility] OR ??? PRO FUSION/GRAFT OF ELBOW JOINT Right 2017 ?? ARTHRODESIS, ELBOW JOINT WITH AUTOGENOUS GRAFT (WRVU 14.32) performed by Christopher Correa MD at [facility] OR ??? PRO REMOVAL DEEP IMPLANT Right 2017 ?? REMOVAL OF IMPLANT, DEEP, ELBOW (WRVU 5.96) performed by Christopher Correa MD at [facility] OR ??? PRO REMOVAL ERUPTED TOOTH WITH ELEVATION OF MUCOPERIOSTEAL FLAP Bilateral 09/11/2019 ?? SURGICAL EXTRACTIONS REQUIRING ELEVATION OF MUCOPERIOSTEAL FLAP AND REMOVAL OF BONE OR SECTION OF TOOTH (WRVU 1.09) performed by Wesley Jacobo MD at [facility] Social History: Patient lives with her and dtr-in-law in a single level house with a ramped entrance. She has a walk in shower with both grab bars and shower chair, regular toilet, and sleeps in a flat bed. DME: w/c and commode Baseline ADL/Mobility: Prior to her R elbow fusion & L ankle fx pt endorsed I with all ADLs, mobility and IADLs. Prior to this admission, she requires A for a stand pivot transfer across all surfaces, A with toileting, I with sponge bathing after set up, and A dressing. Her and DIL manage all IADLs and transportation. Additionally, once set up in her w/c, she needs SBA for w/c mgmt. ?? Precautions/Special Considerations: Fall risk, wound vac to L foot, NWB RUE in bivalve cast, NWB LLE S: I want to go home O: Patient seen for skilled OT treatment, and demonstrated the following: ?? Self-care & Functional Mobility: ?? Pt supine upon arrival,agreeable to therapy ?? Supine to sit eob SBA vcs to maintain WB precautions RUE ?? Pt doned R slipper with set up,reported was too slippery,total A to don L sock,declined to wear sock on R. Max encouragement to wear slipper or sock,stressed the importance of safety and fall prevention ?? Stand pivot transfer bed<wc<recliner chair Min A vcs for NWB precautions RUE/LLE ?? Pt was wheeled in/out of bathroom. Pt completed facial hygiene with set up LUE ?? UB bathing Min A LUE. LE bathing set up ?? Pt left in recliner with call correa and essentials in reach,chair alarm activated ?? Cognition: ?? Behavior / Mood: alert and cooperative ?? Alert and oriented to: person, place, time and situation ?? Follows commands: multi step and 100% of the time ?? Attention: WFL ?? Safety awareness: decreased insight into deficits ?? Vision: WFL ?? Endurance: Fair ?? Vitals: Stable on RA Strength/ROM: Hand dominance: right L UE WLF for both ROM/Strength - RUE NWB in bivalve cast LE limitations: NWB LLE with wound vac ? Pain: 3/10 L foot end of session,RN informed Education: Pt/family/caregiver education ongoing regarding: Role of occupational therapy/rehabilitation, Transfers, Assistive device/technique, ADL, Breathing exercises, Positioning, Safety, Precautions/Protocol, Functional Mobility, Activity pacing/Energy conservation and Balance. Staff Communication: Patient status, treatment, and mobility recommendations discussed with nursing/other staff. ASSESSMENT: Patient was motivated to participate in self care tasks wc level in front of the sink. Pt required vcs to maintain WB precautions RUE/LLE. Discussed slide board transfers with patient. Ptwill benefit from ongoing therapeutic interventions to achieve pt's and therapy goals Equipment needs at discharge: to be determined Anticipated Discharge Disposition: inpatient rehabilitation facility (vs home with home health 24/7assist) ?? Daily schedule / Staff Recommendations: Utilize upright chair position using bed features or transfer to recliner chair as appropriate with 1-2A, ambulate as tolerated ?? Encourage participation in ADL's by providing set up A on tray table and physical assist only asneeded ?? Occupational Therapy Goals: To be achieved by 02/22/21. Patient will dress lower body with SBA with adaptive equipment prn. Patient will perform stand pivot transfer to bedside commode with SBA while maintaining WB restrictions Patient will perform all aspects of toileting with Min A and use of AE PRN Patient will demonstrate energy conservation principals with all ADLs indep. Patient will demonstrate WB precautions independently with all ADLs/mobility Patient will perform 2 grooming tasks of choice with S and set up while sitting EOB ?? Therapy Frequency (OT): 2-4 times/wk Total Minutes, Occupational Therapy: 30 (Schmx2) Pager: [phone] MARIE Thomas 02/11/2021 Occupational Therapy Rehabilitation Department * Nilton Nicole MD - 02/11/2021 5:54 AM EDT [facility] SURGERY INPATIENT PROGRESS NOTE Patient Name: Jesenia Méndez Age: 60 y.o. Attending: Dr. Quiñones Date of surgery: 02/08/2021, 02/10/21 Surgery/Issue: 1. Hx left ankle fx s/p ORIF now s/p I&D of L ankle infected wound (02/08, 02/10) 2. Periprosthetic ulna fx being managed in cast- cast feeling tight, now s/p bivalve SUBJECTIVE / INTERVAL HISTORY: Patient well this morning, NAEON and afebrile. Pain well controlled, continues with baseline decreased sensation at DP distribution but no new numbness/tingling. Wound vac to suction. Staph and enterococcus on intra-op cultures from 02/08, GPCs on cxs from 02/10 still without speciation. No fever, nausea/vomiting, chest pain, shortness of breath, other issues. FOCUSED REVIEW OF SYSTEMS: as above. Active Hospital Problems Diagnosis ? ? S/P Left ankle I&D for abscess and wound dehiscence, 02/08/21 (Dr Quiñones) and 02/10/21 (Abdirahman) Resolved Hospital Problems No resolved problems to display. Active Non-Hospital Problems Diagnosis ??? Closed fracture of left ankle with routine healing ??? H/O insulin dependent diabetes mellitus ??? H/O: depression ??? Hypothyroidism ??? h/o chronic headaches ??? Closed fracture of shaft of right ulna with known elbow arthrodesis RIGHT ??? Chronic pain in left shoulder ??? S/P R elbow fusion on 12/14/17 [facility] ??? Psoriasis MEDICATIONS: ??? [COMPLETED] vancomycin (Vancocin) 2 gram in sodium chloride 0.9% 500 mL infusion FOLLOWED BY vancomycin (Vancocin) 1 gram in sodium chloride 0.9% 250 mL infusion ??? [START ON 02/12/2021] Vancomycin Level - MAR Order Reminder ??? acetaminophen (Tylenol) tablet 1,000 mg ??? lidocaine (Lidoderm) 5% topical patch 3 patch AND lidocaine (Lidoderm) topical patch REMOVAL ??? hydrOXYzine (Atarax) tablet 50 mg ??? oxyCODONE (Roxicodone) tablet 5 mg ??? senna-docusate (Pericolace) 8.6-50 mg per tablet 2 tablet ??? polyethylene glycoL (Miralax) packet 17 g ??? magnesium hydroxide (Milk of Magnesia) (240 mg/mL) oral liquid 30 mL ??? aspirin EC tablet 81 mg ??? buPROPion XL (Wellbutrin XL) tablet 150 mg ??? calcium carbonate (Tums) chewable tablet 1,250 mg ??? cyclobenzaprine (Flexeril) tablet 10 mg ??? folic acid (Folvite) tablet 1,000 mcg ??? gabapentin (Neurontin) capsule 300 mg ??? levothyroxine (Synthroid) tablet 50 mcg ??? losartan (Cozaar) tablet 25 mg ??? multivitamin with minerals (THERA-M) tablet 1 tablet ??? pantoprazole EC (Protonix) tablet 40 mg ??? sertraline (Zoloft) tablet 200 mg ??? topiramate (Topamax) tablet 100 mg ??? sodium chloride 0.9 % (flush) flush 5 mL ??? sodium chloride 0.9 % (flush) flush 5-20 mL ??? lidocaine (Xylocaine) 1% (10 mg/mL) injection 3 mg ??? glucose (GLUTOSE) 40% oral geL OR dextrose 10% infusion OR glucagon (Glucagen) (1 mg/mL) injection solution 1 mg ??? ondansetron (Zofran) tablet 4-8 mg OR ondansetron (pf) (Zofran) (2 mg/mL) injection 4-8 mg ??? POCT Fingerstick Glucose AND insulin lispro (HumaLOG;Admelog) (100 unit/mL) subcutaneous injection vial 1-4 Units ??? insulin glargine (Lantus) (100 unit/mL) subcutaneous injection vial 20 Units ??? enoxaparin (Lovenox) (40 mg/0.4 mL) subcutaneous injection 40 mg OBJECTIVE: Temp: [36.5 ??C (97.7 ??F)-37.5 ??C (99.5 ??F)] Heart Rate: [94-97] Resp: [15-18] BP: (121-146)/(60-79) Intake/Output Summary (Last 24 hours) at 02/11/2021 0554 Last data filed at 02/11/2021 0325 Gross per 24 hour Intake 1150 ml Output 2405 ml Net -1255 ml Body mass index is 33.47 kg/m??. PE: General: awake/alert, responds to questions CV: RRR assessed peripherally Resp: Breathing comfortably on RA LLE: Dressing c/d/i, wound vac to suction Sensory absent in DP, decreased in SP/T (baseline) Motor intact to FHL/EHL/TA Brisk capillary refill distally, foot warm/well-perfused RUE: Bivalved cast, c/d/i Decreased sensation in ulnar distribution, baseline for past few weeks. Sensation intact at radial and median distributions at hand. Motor intact to shoulder abduction, finger flexion/extension Radial pulse 2+ Lab Results Component Value Date NA 142 02/10/2021 K 3.6 02/10/2021 CL 111 (H) 02/10/2021 CO2 22 02/10/2021 BUN 11 02/10/2021 CREATININE 0.82 02/10/2021 GLUCOSE 107 02/10/2021 CALCIUM 8.5 02/10/2021 Lab Results Component Value Date WBC 6.8 02/10/2021 HGB 10.5 (L) 02/10/2021 HCT 32.6 (L) 02/10/2021 MCV 90.6 02/10/2021 PLATELET 160 02/10/2021 ASSESSMENT / PLAN: Jesenia Méndez is a 60 y.o. female 1 Day Post-Op s/p L ankle I&D. Doing well post-operatively. Wound vac to suction. Intra-op cxs growing GPCs, appreciate recs per ID. Plan for return to OR 02/12 for repeat I&D w/ possible closure. Activity: NWB RUE in cast, NWB LLE Closure: Wound vac Dressing: Wound vac Drain: Wound vac (1 black, 1 white sponge) Anticoagulation: ASA 81 mg BID for 30 days Antibiotics: per ID, currently on vanc Consults: rec ID, hold if stable prior to OR Dispo: Per hospital course Follow-up: Pending hospital course Nilton Nicole MD 02/11/2021 Future Appointments Date Time Provider Department Center 03/20/2021 1:00 PM [facility] RO[facility] 3A [facility] [address] [place] [address] 03/20/2021 1:30 PM [facility] DX ROOM 3 MH Xray [facility] Rad 03/20/2021 2:20 PM Dorina Campbell APRN [address] * Dali Guerrier APRN - 02/10/2021 3:40 PM EDT Hospital Medicine Daily Progress Note Admit Date: 02/07/2021 Hospital Day 3 days Hospital Problems: Active Hospital Problems Diagnosis ? ? S/P Left ankle I&D for abscess and wound dehiscence, 02/08/21 (Dr Quiñones) and 02/10/21 (Abdirahman) Resolved Hospital Problems No resolved problems to display. Non-Hospital Problems: Active Non-Hospital Problems Diagnosis ??? Closed fracture of left ankle with routine healing ??? H/O insulin dependent diabetes mellitus ??? H/O: depression ??? Hypothyroidism ??? h/o chronic headaches ??? Closed fracture of shaft of right ulna with known elbow arthrodesis RIGHT ??? Chronic pain in left shoulder ??? S/P R elbow fusion on 12/14/17 [facility] ??? Psoriasis Interval History: - OR today - pain controlled with scheduled tylenol and PRN oxycodone Assessment & Plan: 60 y.o. female with past medical history of diabetes, hypothyroidism, depression, psoriasis, chronic headaches, presenting with complaints of left ankle swelling, pain, erythema and purulent drainageafter having ORIF on 01/21/2021 at [facility]. CT of the ankle showed LLE cellulitis with small abscess at the lateral malleolus. OR today for another I&D. Patient aware that she will likely need wound vac after this washout as well. Will speak with ortho to determine if further surgical procedures are necessary. Continue vancomycin. Awaiting wound cultures to result. Currently growing gram pos cocci. ?? #LLE cellulitis and abscess: -Following recent ORIF at [facility] s/p mechanical fall w/ fracture -Reported noncompliance with weight bearing instructions etc could have contributed. - OR 02/08 for washout w/ vac placement - OR 02/10 for washout - vac still in place - NWB LLE - wound culture showing gram pos cocci - continue vancomycin - vitamin D WNL -Elevate left leg -Pain control with Tylenol, lidoderm, po oxy ?? #Right upper extremity fracture, currently in cast: -Patient feeling better with bivalved cast. We will engage orthopedic team if develops recurrent symptoms. -Elevate right upper extremity - NWB RUE - occurred 1wk before ankle fracture, also due to mechanical fall ?? #Diabetes: - continue nightly 25units lantus home dose - SSI - did not take home victoza on day of presentation - A1C on 02/07 = 7.9 #HTN - continue home losartan #hypothyroidism - continue home levothyroxine #Depression #anxiety - wellbutrin, sertraline home meds?? Diet CHO1 IV Access PIV mIVF Tubes/Drains Wound vac GI prophylaxis Home ppr DVT prophylaxis Lovenox PT/OT/CUTTER AND PASTER PRESS CLIPPINGS PT/OT Wound Care Anticipated Disposition TBD Code Status Attempt Cardiopulmonary Resuscitation - Inpatient Team Pager ( coverage 14/03) [phone] PCP Maryuri Evans MD Family Update Family updated by team bedside ROS: Denies f/c/n/v/d/con, CP, SOB, abd pain, n/t, arm pain Endorses pain around left ankle Vital Signs: Last 24 hrs Temperature Temp: [36.5 ??C (97.7 ??F)-37.3 ??C (99.1 ??F)] Heart Rate Heart Rate: [87-97] Blood Pressure BP: (105-147)/(48-79) Respiratory Rate Resp: [15-16] SpO2 SpO2: [94 %-100 %] BMI: Weight: 83 kg (183 lb) (02/07/21 1438) BMI (Calculated): 33.47 BMI Classification: Obese Intake & Output: Intake/Output Summary (Last 24 hours) at 02/10/2021 1540 Last data filed at 02/10/2021 1100 Gross per 24 hour Intake 2020 ml Output 1805 ml Net 215 ml Estimated Creatinine Clearance: 73.8 mL/min (based on SCr of 0.82 mg/dL). Physical Exam: GENERAL: A&Ox4, awake, not in acute distress, calm, cooperative, appears older than chronologicage, obese, laying in bed HEENT: PERRLA CHEST: RRR LUNGS: LSCTAB, no W/R/R, no respiratory distress ABDOMEN: NABS, soft, non-tender, non-distended, no rebound, no guarding, resonant EXTREMITIES/MSK: pulses full and equal, good CSM RUE and LLE, no edema LLE: wound vac in place, lower leg in CDI dali, strong pedal pulse, sensation RUE: in full arm bivalve cast w/o significant edema, good sensation, using casted arm well to help feed self SKIN: warm, dry, intact, no rashes/lesions/erythema NEURO: No focal deficit, CN grossly intact, spontaneously moves all extremities PSYCH: normal affect, normal mood, normal speech, no hallucinations, no dysarthria Inpatient Medications: Scheduled: ??? Vancomycin Level - MAR Order Reminder NOT APPLICABLE Once ??? [START ON 02/11/2021] vancomycin 1 g Intravenous Q12H ??? [START ON 02/12/2021] Vancomycin Level - MAR Order Reminder NOT APPLICABLE Once ??? acetaminophen 1,000 mg Oral Q8H RJ ??? lidocaine 3 patch Transdermal Q24H And ??? lidocaine 3 patch Transdermal Q24H ??? senna-docusate 2 tablet Oral BID ??? polyethylene glycoL (MIRALAX) oral powder 17 g Oral Daily ??? aspirin EC 81 mg Oral Daily ??? buPROPion XL 150 mg Oral QAM ??? calcium carbonate 1,250 mg Oral Daily ??? folic acid 1 mg Oral Daily ??? gabapentin 300 mg Oral TID ??? levothyroxine 50 mcg Oral QAM ??? losartan 25 mg Oral Daily ??? multivitamin with minerals 1 tablet Oral Daily ??? pantoprazole EC 40 mg Oral Daily ??? sertraline 200 mg Oral Daily ??? topiramate 100 mg Oral BID ??? sodium chloride 0.9 % (flush) 5 mL Intravenous BID ??? insulin lispro 1-4 Units Subcutaneous Q4H RJ ??? insulin glargine 20 Units Subcutaneous Nightly ??? enoxaparin 40 mg Subcutaneous Nightly Continuous Infusions: PRN: hydrOXYzine, oxyCODONE, magnesium hydroxide, cyclobenzaprine, sodium chloride 0.9 % (flush), lidocaine, glucose 40% oral geL OR dextrose 10% OR glucagon, ondansetron OR ondansetron Studies reviewed in eDH and remarkable for the following: Labs: LABS: Recent Labs 02/10/21 04002/09/2151202/08/21318 WBC 6.8 8.4 8.6 HGB 10.5* 12.5 13.0 HCT 32.6* 38.3 39.7 PLATELET 160 147 165 Recent Labs 02/10/21 04002/09/21 0502/08/21318 NA 142 141 136 K 3.6 3.8 3.7 CL 111* 110* 102 CO2 22 21* 23 BUN 11 12 13 CREATININE 0.82 0.92 0.96 No results for input(s): AST, ALT, ALKPHOS, BILITOT, BILIDIR in the last 168 hours. Recent Labs 02/10/21 04002/09/2151202/08/21318 CALCIUM 8.5 8.9 9.0 No results for input(s): PT, INR, PTT in the last 168 hours. No results for input(s): CK, TROPONINT in the last 168 hours. FSBG Trend: Recent Labs 02/10/21 1146 02/10/21 1040 02/10/21 0742 02/10/21 0502 02/10/21 0014 02/09/21 2052 02/09/21 1615 02/09/21 1409 02/09/21 1158 02/09/21 0749 POCGLU 154 132 130 102 180 178 260* 346* 339* 168 MICRO: No results for input(s): URINECULTURE in the last 720 hours. Recent Labs 02/08/21 1030 02/10/21 1002 GRAMSTAIN Few Neutrophils seen Moderate Gram Positive Cocci * Few Neutrophils seen Rare Gram Positive Cocci seen * Moderate Neutrophils Many Gram Positive Cocci seen * Many Neutrophils seen Rare Gram Positive Cocci seen * Many Neutrophils seen Few Gram Positive Cocci seen * Recent Labs 02/07/21 1855 02/07/21 1937 BLOODCX No growth at 2 days. No growth at 2 days. ECG: No results for input(s): DIAGLINE, QTCCALC in the last 720 hours. Vascular: No results for input(s): VBTEXTRPT in the last 720 hours. Imaging: Results for orders placed or performed during the hospital encounter of 02/07/21 XR Ankle Min 3 views Left (Generic) (Exam End: 02/07/2021 3:33 PM) Impression Apparent incision and drainage laterally adjacent to open reduction internal fixation of the distal fibula. Lucency about the I and D site. Hardware appears grossly unremarkable. There is mottled gas in the soft tissues and induration of the soft tissues. Plantar spurring. CT may be useful to better assess the soft tissues relative to the osseous structures and internal. Thank you for letting us participate in the care of this patient. If you are a health care provider and have any questions regarding this report, please contact the number below. For patients who have questions please contact the health day care supervisor that requested your imaging first. Electronically signed by: Anthony Carrillo MD, [facility] ([phone]), at 02/07/2021 3:[address] Lower Extremity w Contrast Left (Exam End: 02/07/2021 5:51 PM) Impression Left lower extremity cellulitis extending from the distal tibia and fibula to the foot, with small abscess at the lateral malleolus. Thank you for letting us participate in the care of this patient. If you are a health care provider and have any questions regarding this report, please contact the number below. For patients who have questions please contact the health day care supervisor that requested your imaging first. Electronically signed by: Meli Gonzales MD, [facility] ([phone]), at 02/07/2021 6:17 PM Other studies/procedures: Procedure(s): DEBRIDEMENT SKIN AND SUBCU, LOWER EXTREMITY (WRVU 1.01) Dali Guerrier APRN 02/10/2021 * Blas, Toño Maldonado MD - 02/10/2021 3:37 PM EDT [facility] SURGERY INPATIENT PROGRESS NOTE Patient Name: Jesenia Méndez Age: 60 y.o. Attending: Dr. Quiñones Date of surgery: 02/08/2021, 02/10/21 Surgery/Issue: 1. Hx left ankle fx s/p ORIF now s/p I&D of L ankle infected wound (02/08, 02/10) 2. Periprosthetic ulna fx being managed in cast- cast feeling tight, now s/p bivalve SUBJECTIVE / INTERVAL HISTORY: Resting comfortably post-op. Tolerating PO intake, voiding. Staph and enterococcus on intra-op cultures from 02/08, GPCs on cxs from 02/10. Remains ffebrile, VSS. FOCUSED REVIEW OF SYSTEMS: as above. Active Hospital Problems Diagnosis ? ? S/P Left ankle I&D for abscess and wound dehiscence, 02/08/21 (Dr Quiñones) and 02/10/21 (Abdirahman) Resolved Hospital Problems No resolved problems to display. Active Non-Hospital Problems Diagnosis ??? Closed fracture of left ankle with routine healing ??? H/O insulin dependent diabetes mellitus ??? H/O: depression ??? Hypothyroidism ??? h/o chronic headaches ??? Closed fracture of shaft of right ulna with known elbow arthrodesis RIGHT ??? Chronic pain in left shoulder ??? S/P R elbow fusion on 12/14/17 [facility] ??? Psoriasis MEDICATIONS: ??? Vancomycin Level - MAR Order Reminder ??? acetaminophen (Tylenol) tablet 1,000 mg ??? lidocaine (Lidoderm) 5% topical patch 3 patch AND lidocaine (Lidoderm) topical patch REMOVAL ??? hydrOXYzine (Atarax) tablet 50 mg ??? oxyCODONE (Roxicodone) tablet 5 mg ??? senna-docusate (Pericolace) 8.6-50 mg per tablet 2 tablet ??? polyethylene glycoL (Miralax) packet 17 g ??? magnesium hydroxide (Milk of Magnesia) (240 mg/mL) oral liquid 30 mL ??? Vancomycin Level - MAR Order Reminder ??? [COMPLETED] vancomycin (Vancocin) 2 gram in sodium chloride 0.9% 500 mL infusion FOLLOWED BY vancomycin (Vancocin) 750 mg in sodium chloride 0.9% 250 mL infusion ??? aspirin EC tablet 81 mg ??? buPROPion XL (Wellbutrin XL) tablet 150 mg ??? calcium carbonate (Tums) chewable tablet 1,250 mg ??? cyclobenzaprine (Flexeril) tablet 10 mg ??? folic acid (Folvite) tablet 1,000 mcg ??? gabapentin (Neurontin) capsule 300 mg ??? levothyroxine (Synthroid) tablet 50 mcg ??? losartan (Cozaar) tablet 25 mg ??? multivitamin with minerals (THERA-M) tablet 1 tablet ??? pantoprazole EC (Protonix) tablet 40 mg ??? sertraline (Zoloft) tablet 200 mg ??? topiramate (Topamax) tablet 100 mg ??? sodium chloride 0.9 % (flush) flush 5 mL ??? sodium chloride 0.9 % (flush) flush 5-20 mL ??? lidocaine (Xylocaine) 1% (10 mg/mL) injection 3 mg ??? glucose (GLUTOSE) 40% oral geL OR dextrose 10% infusion OR glucagon (Glucagen) (1 mg/mL) injection solution 1 mg ??? ondansetron (Zofran) tablet 4-8 mg OR ondansetron (pf) (Zofran) (2 mg/mL) injection 4-8 mg ??? POCT Fingerstick Glucose AND insulin lispro (HumaLOG;Admelog) (100 unit/mL) subcutaneous injection vial 1-4 Units ??? insulin glargine (Lantus) (100 unit/mL) subcutaneous injection vial 20 Units ??? enoxaparin (Lovenox) (40 mg/0.4 mL) subcutaneous injection 40 mg OBJECTIVE: Temp: [36.5 ??C (97.7 ??F)-37.3 ??C (99.1 ??F)] Heart Rate: [87-97] Resp: [15-16] BP: (105-147)/(48-79) Intake/Output Summary (Last 24 hours) at 02/10/2021 1352 Last data filed at 02/10/2021 1100 Gross per 24 hour Intake 2020 ml Output 1805 ml Net 215 ml Body mass index is 33.47 kg/m??. PE: General: awake/alert, responds to questions CV: RRR assessed peripherally Resp: Breathing comfortably on RA LLE: Dressing c/d/i, wound vac to suction Sensory absent in DP, decreased in SP/T (baseline) Motor intact to FHL/EHL/TA Brisk capillary refill distally, foot warm/well-perfused RUE: Bivalved cast, c/d/i Decreased sensation in ulnar distribution, baseline for past few weeks. Sensation intact at radial and median distributions at hand. Motor intact to shoulder abduction, finger flexion/extension Radial pulse 2+ Lab Results Component Value Date NA 142 02/10/2021 K 3.6 02/10/2021 CL 111 (H) 02/10/2021 CO2 22 02/10/2021 BUN 11 02/10/2021 CREATININE 0.82 02/10/2021 GLUCOSE 107 02/10/2021 CALCIUM 8.5 02/10/2021 Lab Results Component Value Date WBC 6.8 02/10/2021 HGB 10.5 (L) 02/10/2021 HCT 32.6 (L) 02/10/2021 MCV 90.6 02/10/2021 PLATELET 160 02/10/2021 ASSESSMENT / PLAN: Jesenia Méndez is a 60 y.o. female Day of Surgery s/p L ankle I&D. Doing well post-operatively. Wound vac to suction. Intra-op cxs growing staph and enterococcus, appreciate recs per ID. Plan for return to OR 02/12 vs Tuesday 02/13 for repeat I&D w/ possible closure. Activity: NWB RUE in cast, NWB LLE Closure: Wound vac Dressing: Wound vac Drain: Wound vac (1 black, 1 white sponge) Anticoagulation: ASA 81 mg BID for 30 days Antibiotics: per ID, currently on vanc Consults: rec ID, hold if stable prior to OR Dispo: Per hospital course Follow-up: Pending hospital course Toño Odonnell MD 02/10/2021 Future Appointments Date Time Provider Department Center 03/20/2021 1:00 PM [facility] RO[facility] 3A [facility] [address] [place] [address] 03/20/2021 1:30 PM [facility] DX ROOM 3 [facility] Xray [facility] Rad 03/20/2021 2:20 PM Dorina Campbell APRN [facility] [address] [place] [address] * Jacqui Lo RN - 02/10/2021 3:27 PM EDTSummary: SHANTAL Progress Note OFFICE OF CARE MANAGEMENT Mold Filling Operator Follow-up Note S/O: Discussed plan of care with Primary team and Nursing to assess continuing care and discharge needs. LOS: 3 days Primary Insurance: MEDICAID [place] Secondary Insurance: N/A DECISION MAKER: Patient able to make decisions for herself. No ADs on file in [facility]. Pt continues to require hospitalization for: 02/10 Dr. Yarbrough Progress Note: 60 y.o. female 2 Days Post-Op s/p L ankle I&D. Doing well post-operatively. Wound vac to suction. Intra-op cxs growing staph and enterococcus, appreciate recs per ID. Plan for return to OR today for repeat I&D w/ possible closure, please keep NPO. The patient/unit support representative has been provided a list of Home Health Agencies/DME vendors which servetheir preferred geographic area. A letter describing our affiliations was reviewed with them and they were educated about their right to choose where referrals are placed. Patient requests referral to: 1. [facility] PHONE: [phone] FAX: [phone] 2.[place], [place] or 3. Name: [facility] Tel.#: ext [phone] fax#: Equipment ordered:wound vac Expected date of discharge: 02/13?. Referral routed to the Practice Professional for matching with agency/vendor and to provide any required information. Patient lives with her father, son, DIL so she has someone available to assist her. Patient states that there is plenty of people to help her. A: Patient not medically ready for discharge. P:Mold Filling Operator to follow with team and family to assist with discharge needs when patient ready fordischarge. Jacqui Lo RN, Mold Filling Operator Pager #[phone] * Christy Huang, RN - 02/10/2021 10:49 AM EDT 1035: Received from OR VSS awake and alert Requesting lunch tray. Endorses 07/01 pain * Clementine Sanchez PT - 02/10/2021 10:15 AM EDT [facility] for I&D and wound vac change. Progress to slideboard and WC mobility in preparation for safe transfers and eventual home discharge. * Delfina Marr, OT - 02/10/2021 9:01 AM EDT Occupational Therapy Contact Note 02/10/21 0900 OT Time and Intention Document Type contact Mode of Treatment occupational therapy Total Minutes, Occupational Therapy 0 Session Not Performed patient unavailable for treatment Comment, Session Not Performed Pt scheduled for repeat I&D with possible closure today. Will f/u post op as appropriate/able. Delfina Marr, OTR/L Inpatient Rehab Pager: [phone] * Seth Yarbrough MD - 02/10/2021 5:54 AM EDT ORTHOPAEDIC SURGERY INPATIENT PROGRESS NOTE Patient Name: Jesenia Méndez Age: 60 y.o. Attending: Dr. Quiñones Date of surgery: 02/08/2021, pending 02/10/21 Surgery/Issue: 1. Hx left ankle fx s/p ORIF now s/p I&D of L ankle infected wound (02/08) 2. Periprosthetic ulna fx being managed in cast- cast feeling tight, now s/p bivalve SUBJECTIVE / INTERVAL HISTORY: Ms Méndez is doing fine this morning. Staph and enterococcus on intra-op cultures. NPO since midnight, informed on operative plan and agreeable to proceed today. Afebrile, VSS. FOCUSED REVIEW OF SYSTEMS: as above. Active Hospital Problems Diagnosis ??? Ankle abscess Resolved Hospital Problems No resolved problems to display. Active Non-Hospital Problems Diagnosis ??? Closed fracture of left ankle with routine healing ??? H/O insulin dependent diabetes mellitus ??? H/O: depression ??? Hypothyroidism ??? h/o chronic headaches ??? Closed fracture of shaft of right ulna with known elbow arthrodesis RIGHT ??? Chronic pain in left shoulder ??? S/P R elbow fusion on 12/14/17 [facility] ??? Psoriasis MEDICATIONS: ??? acetaminophen (Tylenol) tablet 1,000 mg ??? lidocaine (Lidoderm) 5% topical patch 3 patch AND lidocaine (Lidoderm) topical patch REMOVAL ??? hydrOXYzine (Atarax) tablet 50 mg ??? oxyCODONE (Roxicodone) tablet 5 mg ??? senna-docusate (Pericolace) 8.6-50 mg per tablet 2 tablet ??? polyethylene glycoL (Miralax) packet 17 g ??? magnesium hydroxide (Milk of Magnesia) (240 mg/mL) oral liquid 30 mL ??? Vancomycin Level - MAR Order Reminder ??? [COMPLETED] vancomycin (Vancocin) 2 gram in sodium chloride 0.9% 500 mL infusion FOLLOWED BY vancomycin (Vancocin) 750 mg in sodium chloride 0.9% 250 mL infusion ??? Vancomycin Level - MAR Order Reminder ??? aspirin EC tablet 81 mg ??? buPROPion XL (Wellbutrin XL) tablet 150 mg ??? calcium carbonate (Tums) chewable tablet 1,250 mg ??? cyclobenzaprine (Flexeril) tablet 10 mg ??? folic acid (Folvite) tablet 1,000 mcg ??? gabapentin (Neurontin) capsule 300 mg ??? levothyroxine (Synthroid) tablet 50 mcg ??? losartan (Cozaar) tablet 25 mg ??? multivitamin with minerals (THERA-M) tablet 1 tablet ??? pantoprazole EC (Protonix) tablet 40 mg ??? sertraline (Zoloft) tablet 200 mg ??? topiramate (Topamax) tablet 100 mg ??? sodium chloride 0.9 % (flush) flush 5 mL ??? sodium chloride 0.9 % (flush) flush 5-20 mL ??? lidocaine (Xylocaine) 1% (10 mg/mL) injection 3 mg ??? glucose (GLUTOSE) 40% oral geL OR dextrose 10% infusion OR glucagon (Glucagen) (1 mg/mL) injection solution 1 mg ??? ondansetron (Zofran) tablet 4-8 mg OR ondansetron (pf) (Zofran) (2 mg/mL) injection 4-8 mg ??? POCT Fingerstick Glucose AND insulin lispro (HumaLOG;Admelog) (100 unit/mL) subcutaneous injection vial 1-4 Units ??? insulin glargine (Lantus) (100 unit/mL) subcutaneous injection vial 20 Units ??? enoxaparin (Lovenox) (40 mg/0.4 mL) subcutaneous injection 40 mg OBJECTIVE: Temp: [36.8 ??C (98.2 ??F)-37.4 ??C (99.4 ??F)] Heart Rate: [87-92] Resp: [16] BP: (105-146)/(48-67) Intake/Output Summary (Last 24 hours) at 02/10/2021 0554 Last data filed at 02/10/2021 0434 Gross per 24 hour Intake 1470 ml Output 2300 ml Net -830 ml Body mass index is 33.47 kg/m??. PE: General: awake/alert, responds to questions CV: RRR assessed peripherally Resp: Breathing comfortably on RA LLE: Dressing c/d/i, wound vac to suction Sensory absent in DP, decreased in SP/T (baseline) Motor intact to FHL/EHL/TA Brisk capillary refill distally, foot warm/well-perfused RUE: Bivalved cast, c/d/i Decreased sensation in ulnar distribution, baseline for past few weeks. Sensation intact at radial and median distributions at hand. Motor intact to shoulder abduction, finger flexion/extension Radial pulse 2+ Lab Results Component Value Date NA 142 02/10/2021 K 3.6 02/10/2021 CL 111 (H) 02/10/2021 CO2 22 02/10/2021 BUN 11 02/10/2021 CREATININE 0.82 02/10/2021 GLUCOSE 107 02/10/2021 CALCIUM 8.5 02/10/2021 Lab Results Component Value Date WBC 6.8 02/10/2021 HGB 10.5 (L) 02/10/2021 HCT 32.6 (L) 02/10/2021 MCV 90.6 02/10/2021 PLATELET 160 02/10/2021 ASSESSMENT / PLAN: Jesenia Méndez is a 60 y.o. female 2 Days Post-Op s/p L ankle I&D. Doing well post-operatively. Wound vac to suction. Intra-op cxs growing staph and enterococcus, appreciate recs per ID. Plan for return to OR today for repeat I&D w/ possible closure, please keep NPO. Activity: NWB RUE in cast, NWB LLE Closure: Wound vac Dressing: Wound vac Drain: Wound vac (1 black, 1 white sponge) Anticoagulation: ASA 81 mg BID for 30 days Antibiotics: per ID Consults: rec ID, hold if stable prior to OR Dispo: Per hospital course Follow-up: Pending hospital course Seth Yarbrough MD 02/10/2021 Future Appointments Date Time Provider Department Center 03/20/2021 1:00 PM [facility] 03/20/2021 1:30 PM [facility] DX ROOM 3 [facility] Xray [facility] Rad 03/20/2021 2:20 PM Dorina Campbell APRN [facility] * Anita Sosa RN - 02/10/2021 5:38 AM EDT OUTCOME EVALUATION NOTE: OUTCOME SUMMARY: Patient is alert and oriented, on room air, denies shortness of breath, right arm cast intact, leftlower extremity, dali wrap dressing intact, wound vac 125 mm Hg. NPO post midnight instructed. PLAN MOVING FORWARD: Monitor VS/ Labs/ blood glucose Pain management IV antibiotics For OR today, no specific time INDIVIDUALIZED FALL PREVENTION INTERVENTIONS: Patient-specific fall risk factors per assessment: [current deficits]: Masimo, IV access, non weight bearing LLE, RUE, history of fall, woundvac Assistance [level of assistance required for transfers and ambulation]: Stand pivot to BSC Supervision [direct monitoring required during toileting and ADLs]: Hands on Surveillance [continuous indirect monitoring]: Masimo, room near nurses station, call correa within reach at all times, purposeful hourly rounding, bed alarm on Patient-specific fall prevention interventions for sensory deficits provided, if applicable: [X] N/A CPG GOAL OUTCOME EVALUATION: * Dali Guerrier APRN - 02/09/2021 2:39 PM EDT Hospital Medicine Daily Progress Note Admit Date: 02/07/2021 Hospital Day 2 days Hospital Problems: Active Hospital Problems Diagnosis ??? Ankle abscess Resolved Hospital Problems No resolved problems to display. Non-Hospital Problems: Active Non-Hospital Problems Diagnosis ??? Closed fracture of left ankle with routine healing ??? H/O insulin dependent diabetes mellitus ??? H/O: depression ??? Hypothyroidism ??? h/o chronic headaches ??? Closed fracture of shaft of right ulna with known elbow arthrodesis RIGHT ??? Chronic pain in left shoulder ??? S/P R elbow fusion on 12/14/17 [facility] ??? Psoriasis Interval History: - OR tomorrow - reports some increasing pain at ankle site: relieved with PRN oxycodone - afebrile Assessment & Plan: 60 y.o. female with past medical history of diabetes, hypothyroidism, depression, psoriasis, chronic headaches, presenting with complaints of left ankle swelling, pain, erythema and purulent drainageafter having ORIF on 01/21/2021 at [facility]. CT of the ankle showed LLE cellulitis with small abscess at the lateral malleolus. OR planned for 02/10. Patient continues with wound vac to E. She endorses some increasing pain wound vac site. Pain relieved with PRN oxycodone. Patient remains hemodynamically stable. Continues on vancomycin. ?? #LLE cellulitis and abscess: -Following recent ORIF at [facility] s/p mechanical fall w/ fracture -Reported noncompliance with weight bearing instructions etc could have contributed. - OR 02/08 for washout w/ vac placement - OR 02/10 for washout - NWB LLE - pending operative wound cultures - holding on abx at this time unless becomes clinically unstable, then would start cefazolin or other broad spectrum regimen - May need to consult ID. - continue vancomycin - vitamin D WNL -Elevate left leg -Pain control with Tylenol, lidoderm, po oxy ?? #Right upper extremity fracture, currently in cast: -Patient feeling better with bivalved cast. We will engage orthopedic team if develops recurrent symptoms. -Elevate right upper extremity - NWB RUE - occurred 1wk before ankle fracture, also due to mechanical fall ?? #Diabetes: - continue nightly 25units lantus home dose - SSI - did not take home victoza on day of presentation - A1C on 02/07 = 7.9 #HTN - continue home losartan #hypothyroidism - continue home levothyroxine #Depression #anxiety - wellbutrin, sertraline home meds?? Diet CHO1 IV Access PIV mIVF Tubes/Drains Wound vac GI prophylaxis Home ppr DVT prophylaxis Lovenox PT/OT/[employer] PT/OT Wound Care Anticipated Disposition TBD Code Status Attempt Cardiopulmonary Resuscitation - Inpatient Team Pager ( coverage 14/03) [phone] PCP Maryuri Evans MD Family Update Family updated by team bedside Shared Visit This patient was seen in conjunction with Dr. Mary as part of a shared visit. ROS: Denies f/c/n/v/d/con, CP, SOB, abd pain, n/t, arm pain Endorses pain around left ankle Vital Signs: Last 24 hrs Temperature Temp: [36.9 ??C (98.4 ??F)-37.8 ??C (100 ??F)] Heart Rate Heart Rate: -- Blood Pressure BP: (103-145)/(55-69) Respiratory Rate Resp: [15-17] SpO2 SpO2: [92 %-98 %] BMI: Weight: 83 kg (183 lb) (02/07/21 1438) BMI (Calculated): 33.47 BMI Classification: Obese Intake & Output: Intake/Output Summary (Last 24 hours) at 02/09/2021 1439 Last data filed at 02/09/2021 0707 Gross per 24 hour Intake 940 ml Output 3000 ml Net -2060 ml Estimated Creatinine Clearance: 65.8 mL/min (based on SCr of 0.92 mg/dL). Physical Exam: GENERAL: A&Ox4, awake, not in acute distress, calm, cooperative, appears older than chronologicage, obese, laying in bed HEENT: PERRLA CHEST: RRR LUNGS: LSCTAB, no W/R/R, no respiratory distress ABDOMEN: NABS, soft, non-tender, non-distended, no rebound, no guarding, resonant EXTREMITIES/MSK: pulses full and equal, good CSM RUE and LLE, no edema LLE: wound vac in place, lower leg in CDI dali, strong pedal pulse, sensation RUE: in full arm bivalve cast w/o significant edema, good sensation, using casted arm well to help feed self SKIN: warm, dry, intact, no rashes/lesions/erythema NEURO: No focal deficit, CN grossly intact, spontaneously moves all extremities PSYCH: normal affect, normal mood, normal speech, no hallucinations, no dysarthria Inpatient Medications: Scheduled: ??? acetaminophen 1,000 mg Oral Q8H RJ ??? lidocaine 3 patch Transdermal Q24H And ??? lidocaine 3 patch Transdermal Q24H ??? senna-docusate 2 tablet Oral BID ??? polyethylene glycoL (MIRALAX) oral powder 17 g Oral Daily ??? vancomycin 750 mg Intravenous Q12H ??? [START ON 02/10/2021] Vancomycin Level - MAR Order Reminder NOT APPLICABLE Once ??? aspirin EC 81 mg Oral Daily ??? buPROPion XL 150 mg Oral QAM ??? calcium carbonate 1,250 mg Oral Daily ??? folic acid 1 mg Oral Daily ??? gabapentin 300 mg Oral TID ??? levothyroxine 50 mcg Oral QAM ??? losartan 25 mg Oral Daily ??? multivitamin with minerals 1 tablet Oral Daily ??? pantoprazole EC 40 mg Oral Daily ??? sertraline 200 mg Oral Daily ??? topiramate 100 mg Oral BID ??? sodium chloride 0.9 % (flush) 5 mL Intravenous BID ??? insulin lispro 1-4 Units Subcutaneous Q4H RJ ??? insulin glargine 20 Units Subcutaneous Nightly ??? enoxaparin 40 mg Subcutaneous Nightly Continuous Infusions: PRN: hydrOXYzine, oxyCODONE, magnesium hydroxide, Vancomycin Level - MAR Order Reminder, cyclobenzaprine, sodium chloride 0.9 % (flush), lidocaine, glucose 40% oral geL OR dextrose 10% OR glucagon, ondansetron OR ondansetron Studies reviewed in eDH and remarkable for the following: Labs: LABS: Recent Labs 02/09/21 0513 02/08/2131802/07/21 1503 WBC 8.4 8.6 9.9* HGB 12.5 13.0 13.8 HCT 38.3 39.7 41.8 PLATELET 147 165 170 Recent Labs 02/09/21 0513 02/08/21 03102/07/21 1503 NA 141 136 135 K 3.8 3.7 4.1 CL 110* 102 102 CO2 21* 23 22 BUN 12 13 12 CREATININE 0.92 0.96 1.00 No results for input(s): AST, ALT, ALKPHOS, BILITOT, BILIDIR in the last 168 hours. Recent Labs 02/09/21 0513 02/08/2131802/07/21 1503 CALCIUM 8.9 9.0 9.3 No results for input(s): PT, INR, PTT in the last 168 hours. No results for input(s): CK, TROPONINT in the last 168 hours. FSBG Trend: Recent Labs 02/09/21 1409 02/09/21 1158 02/09/21 0749 02/09/21 0444 02/08/21 2324 02/08/21 2027 02/08/21 1620 02/08/21 1211 02/08/21 0757 02/08/21 0410 POCGLU 346* 339* 168 131 204* 201* 225* 186 141 164 MICRO: No results for input(s): URINECULTURE in the last 720 hours. Recent Labs 02/08/21 1030 GRAMSTAIN Few Neutrophils seen Moderate Gram Positive Cocci * Few Neutrophils seen Rare Gram Positive Cocci seen * Moderate Neutrophils Many Gram Positive Cocci seen * Recent Labs 02/07/21 1855 02/07/21 1937 BLOODCX No growth at 1 day. No growth at 1 day. ECG: No results for input(s): DIAGLINE, QTCCALC in the last 720 hours. Vascular: No results for input(s): VBTEXTRPT in the last 720 hours. Imaging: Results for orders placed or performed during the hospital encounter of 02/07/21 XR Ankle Min 3 views Left (Generic) (Exam End: 02/07/2021 3:33 PM) Impression Apparent incision and drainage laterally adjacent to open reduction internal fixation of the distal fibula. Lucency about the I and D site. Hardware appears grossly unremarkable. There is mottled gas in the soft tissues and induration of the soft tissues. Plantar spurring. CT may be useful to better assess the soft tissues relative to the osseous structures and internal. Thank you for letting us participate in the care of this patient. If you are a health care provider and have any questions regarding this report, please contact the number below. For patients who have questions please contact the health day care supervisor that requested your imaging first. Electronically signed by: Anthony Carrillo MD, [facility] ([phone]), at 02/07/2021 3:[address] Lower Extremity w Contrast Left (Exam End: 02/07/2021 5:51 PM) Impression Left lower extremity cellulitis extending from the distal tibia and fibula to the foot, with small abscess at the lateral malleolus. Thank you for letting us participate in the care of this patient. If you are a health care provider and have any questions regarding this report, please contact the number below. For patients who have questions please contact the health day care supervisor that requested your imaging first. Electronically signed by: Meli Gonzales MD, [facility] ([phone]), at 02/07/2021 6:17 PM Other studies/procedures: Procedure(s): DEBRIDEMENT SKIN AND SUBCU, LOWER EXTREMITY (WRVU 1.01) Dali Guerrier APRN 02/09/2021 Associated attestation - Edilma Mary MD - 02/10/2021 12:39 AM EDT Attending Shared Visit Attestation This patient was seen in conjunction with Dali Guerrier APRN as part of a shared visit. I have examined the patient myself on 02/09/2021 and reviewed all labs and studies personally. I have discussed, reviewed and agree with the documented interval history with ROS, physical findings, labs/studies, assessment and plan of care. In addition, I certify that I am a D-H credentialed attending provider with admitting privileges and that the patient meets or has met medical necessity to require an inpatient IPI level of care meeting a minimum of two midnights or is on the [facility] inpatient only procedure list (status C) due to: monitoring of fluid status given an inability to regulate fluid balance and the need for administrationor restriction of fluids and LT ankle infected hardware/abscess requiring I&D and IV abx. Additions to the history, physical, assessment and plan include the following: Pt started on IV Vanc yesterday - will c/w same for goal trough 15-20; fup cultures and de-escalateas able. NPO @ [facility] for repeat OR in am. PT/OT cs - will likely need rehab as is NWB RUE & LLE. Rest per Dali Guerrier APRN's note. Edilma Mary MD 02/09/2021 * Clementine Sanchez, PT - 02/09/2021 10:37 AM EDT Physical Therapy Evaluation Patient profile: Jesenia Méndez is a 60 y.o. female with PMH significant for ID T2DM, R elbow fusion with serial casting, and L ankle fracture S/P ORIF at [facility] (01/21/21) who presented to the ED for RUE cast problem and L ankle pain and redness. OR for ankle I and D, wound vac placement. Plan to return to the OR 02/10 for I&D and possible closure. Patient with the following active problems: History reviewed. H/O insulin dependent diabetes mellitus ??? H/O: depression ??? Hypothyroidism ??? h/o chronic headaches ???3 Closed fracture of shaft of right ulna with known elbow arthrodesis RIGHT ??? Chronic pain in left shoulder ??? S/P R elbow fusion on 12/14/17 [facility] ??? Psoriasis . Past Surgical History: Procedure Laterality Date ??? PRO ALVEOLOPLASTY W EXTRACTIONS, 4 OR MORE TEETH, PER QUADRANT N/A 09/11/2019 ALVEOPLASTY,IN CONJUNCTION WITH EXTRACTIONS,PER QUADRANT,ENT (WRVU 4.06) performed by Wesley Jacobo MD at [facility] ? ? PRO DEBRIDEMENT SUBCUTANEOUS TISSUE 20 SQCM/< Left 02/08/2021 DEBRIDEMENT SKIN AND SUBCU, LOWER EXTREMITY (WRVU 1.01) [facility] ??? PRO FUSION/GRAFT OF ELBOW JOINT Right 2017 ARTHRODESIS, ELBOW JOINT WITH AUTOGENOUS GRAFT (WRVU 14.32) performed by Christopher Correa MD at [facility] OR ??? PRO REMOVAL DEEP IMPLANT Right 2017 REMOVAL OF IMPLANT, DEEP, ELBOW (WRVU 5.96) performed by Christopher Correa MD at [facility] OR ??? PRO REMOVAL ERUPTED TOOTH WITH ELEVATION OF MUCOPERIOSTEAL FLAP Bilateral 09/11/2019 SURGICAL EXTRACTIONS REQUIRING ELEVATION OF MUCOPERIOSTEAL FLAP AND REMOVAL OF BONE OR SECTION OF TOOTH (WRVU 1.09) performed by Wesley Jacobo MD at [facility] Social History: Lives with her father and DIL in a single level home Bathroom Set-up: shower with shower chair, has been sponge bathing Stairs: ramp Baseline Mobility:assist of 1 to pivot to toilet or WC Equipment at home: WC, FWW, crutches, shower seat Fall history: fell which led to these injuries, prior to that , she was drving. Precautions/Special Considerations: NWB RUE and NWB LLE, Diet:carb controlled Activity orders: up with assist Mobility and Positioning Recommendations: ?? Pt. to utilize assist of 1 to stand pivot to BSC, 2nd person as needed for wound vac using LUE and RLE, WC for distance mobility ?? Please encourage up to chair for meal times as able. ?? Pt encouraged to ambulate frequently with staff, getting into the bathroom for toileting and walking out in the wall >/= 3 times daily as able. Subjective: ???My dad his own issues, he's been helping me to the WC. My DIL has been helping too?? Objective: Pt seen for evaluation today. Pain: pt reports good pain control Vital Signs: SpO2: 97% on RA HR: 84 Mental Status: alert, oriented to person, place, and time Vision: corrective lenses full-time Skin: RUE casted, LLE dali wrapped, wound vac in place Musculoskeletal: ROM: RUE casted in slight flexion, shoulder WFL, LEs WNL, [place] WFL Strength: good strength in unaffected limbs Sensation: LT intact in fingers and toes Bed Mobility: Supine to Sit: supervision Sit to Supine: supervision Transfers: Sit to Stand: min asst from EOB using LUE and bedrail, Stand to Sit: Min asst to safely reach back and lower to the commode Bed to Commode to CC: Min asst of 1 to stand pivot on RLE, cues to reach with LUE Gait: WC dependent at home Stairs: ramp at home Balance: good sitting balance on the commode. Fair balance in standing to get cleaned up, Fair- balance with stand pivot transfer Therex: encouraged ankle pumps, deep breathing, moving extremities in bed Education: patient has been educated on Bed mobility, Transfers, Exercise, Positioning, Safety , Precautions/protocol, Equipment use, Role of therapy, Balance and Discharge planning and demonstrates understanding. Patient status, treatment, and mobility recommendations discussed with nursing. Assessment: Jesenia Méndez was seen today for physical therapy evaluation. Pt presents with impaired mobility, decreased balance, decreased safety, decreased ROM, inability to ambulate, wound infection, 2 non wt bearing limbs. Pt requires assist to pivot to BSC or chair, is able to maintain NWB status in standing with assist of 1. Interested in trying a slide board for a safer transfer rather than pivoting with assist of her elderly father. She already has WC at home with removable sidearm. Progress after the OR tomorrow, continue to work on safe transfers and WC mobility. The pt would benefit from skilled therapy services while in the hospital to maximize functional abilities. Discharge Recommendations: Anticipated Discharge Disposition (PT): (P) home, home with supervision - assistance 14/03 Consult Recommendations: No other consults recommended at this time. Equipment needs: Anticipated Equipment Needs at Discharge (PT): (P) slide board Goals: To be achieved by 02/12 1. Pt. to demonstrate knowledge of safety limitations and precautions and will appropriately request assistance for functional activities and to mobilize. 2. Pt. to demonstrate understanding of appropriate bed exercises. 3. Pt. to perform bed mobility independently. 4. Pt. to perform sit to stand transfers with supervision using a slideboard. 5. Pt. to propel the WC x 100 ft with supervision using RLE and LUE 6. Family or caregiver to demonstrate understanding of therapeutic interventions to support the care of the patient. Plan: Therapy Frequency (PT): (P) 1-3 more times for therapy including patient/family education, transfer training and wheelchair managment/propulsion training. Patient/family understand and agree with plan as stated above. 2017 PT Evaluation Code Rationale: ?? Diagnosis & Pertinent Co-Morbidities, personal factors, and present illness affecting Plan of Care: (see above); Additional personal factors or co- morbidities that impact plan: ?? Total # of Factors: 0 1-2 3+ x ?? Examination of body system impairments, functional limitations and behaviors, and/or participation restrictions. Addressing 1-2 elements Addressing 3 + elements Addressing 4 + elements x ?? Clinical presentation: See assessment above. Stable/Uncomplicated Evolving/Fluctuating Symptoms Unstable/Unpredictable x ?? Clinical decision making of low complexity based on pt's functional performance as outlined in this evaluation. Time IN / OUT: 9:59-10:37 Total Minutes, Physical Therapy: (P) 38 evaluation and TEF CLEMENTINE SANCHEZ, PT Pager: [phone] Physical Therapy Inpatient Rehabilitation Department * Nilton Nicole MD - 02/09/2021 6:42 AM EDT ORTHOPAEDIC SURGERY INPATIENT PROGRESS NOTE Patient Name: Jesenia Méndez Age: 60 y.o. Attending: Dr. Quiñones Date of surgery: 02/08/2021 Surgery/Issue: 1. Hx left ankle fx s/p ORIF now s/p I&D of L ankle infected wound (02/08) 2. Periprosthetic ulna fx being managed in cast- cast feeling tight, now s/p bivalve SUBJECTIVE / INTERVAL HISTORY: Patient doing well this morning, resting comfortably in bed. GPCs from left ankle culture, awaitingfinal results. No new numbness/tingling or pain to L ankle. Baseline numbness/tingling in ulnar distribution of RUE, no new symptoms. No chest pain, shortness of breath, nausea/vomiting, other issues. FOCUSED REVIEW OF SYSTEMS: as above. Active Hospital Problems Diagnosis ??? Ankle abscess Resolved Hospital Problems No resolved problems to display. Active Non-Hospital Problems Diagnosis ??? Closed fracture of left ankle with routine healing ??? H/O insulin dependent diabetes mellitus ??? H/O: depression ??? Hypothyroidism ??? h/o chronic headaches ??? Closed fracture of shaft of right ulna with known elbow arthrodesis RIGHT ??? Chronic pain in left shoulder ??? S/P R elbow fusion on 12/14/17 [place] ??? Psoriasis MEDICATIONS: ??? acetaminophen (Tylenol) tablet 1,000 mg ??? lidocaine (Lidoderm) 5% topical patch 3 patch AND lidocaine (Lidoderm) topical patch REMOVAL ??? hydrOXYzine (Atarax) tablet 50 mg ??? oxyCODONE (Roxicodone) tablet 5 mg ??? senna-docusate (Pericolace) 8.6-50 mg per tablet 2 tablet ??? polyethylene glycoL (Miralax) packet 17 g ??? magnesium hydroxide (Milk of Magnesia) (240 mg/mL) oral liquid 30 mL ??? Vancomycin Level - MAR Order Reminder ??? [COMPLETED] vancomycin (Vancocin) 2 gram in sodium chloride 0.9% 500 mL infusion FOLLOWED BY vancomycin (Vancocin) 750 mg in sodium chloride 0.9% 250 mL infusion ??? [START ON 02/10/2021] Vancomycin Level - MAR Order Reminder ??? aspirin EC tablet 81 mg ??? buPROPion XL (Wellbutrin XL) tablet 150 mg ??? calcium carbonate (Tums) chewable tablet 1,250 mg ??? cyclobenzaprine (Flexeril) tablet 10 mg ??? folic acid (Folvite) tablet 1,000 mcg ??? gabapentin (Neurontin) capsule 300 mg ??? levothyroxine (Synthroid) tablet 50 mcg ??? losartan (Cozaar) tablet 25 mg ??? multivitamin with minerals (THERA-M) tablet 1 tablet ??? pantoprazole EC (Protonix) tablet 40 mg ??? sertraline (Zoloft) tablet 200 mg ??? topiramate (Topamax) tablet 100 mg ??? sodium chloride 0.9 % (flush) flush 5 mL ??? sodium chloride 0.9 % (flush) flush 5-20 mL ??? lidocaine (Xylocaine) 1% (10 mg/mL) injection 3 mg ??? glucose (GLUTOSE) 40% oral geL OR dextrose 10% infusion OR glucagon (Glucagen) (1 mg/mL) injection solution 1 mg ??? ondansetron (Zofran) tablet 4-8 mg OR ondansetron (pf) (Zofran) (2 mg/mL) injection 4-8 mg ??? POCT Fingerstick Glucose AND insulin lispro (HumaLOG;Admelog) (100 unit/mL) subcutaneous injection vial 1-4 Units ??? insulin glargine (Lantus) (100 unit/mL) subcutaneous injection vial 20 Units ??? enoxaparin (Lovenox) (40 mg/0.4 mL) subcutaneous injection 40 mg OBJECTIVE: Temp: [36.4 ??C (97.5 ??F)-37.8 ??C (100 ??F)] Heart Rate: [100-106] Resp: [15-18] BP: (103-162)/(56-91) Intake/Output Summary (Last 24 hours) at 02/09/2021 0642 Last data filed at 02/09/2021 0400 Gross per 24 hour Intake 1390 ml Output 2303 ml Net -913 ml Body mass index is 33.47 kg/m??. PE: General: awake/alert, responds to questions CV: RRR assessed peripherally Resp: Breathing comfortably on RA LLE: Dressing c/d/i, wound vac to suction Sensory absent in DP, decreased in SP/T (baseline) Motor intact to FHL/EHL/TA Brisk capillary refill distally, foot warm/well-perfused RUE: In long arm bivalved cast, c/d/i Decreased sensation in ulnar distribution, baseline for past few weeks. Sensation intact at radial and median distributions at hand. Motor intact to shoulder abduction, finger flexion/extension Radial pulse 2+ Lab Results Component Value Date NA 141 02/09/2021 K 3.8 02/09/2021 CL 110 (H) 02/09/2021 CO2 21 (L) 02/09/2021 BUN 12 02/09/2021 CREATININE 0.92 02/09/2021 GLUCOSE 140 02/09/2021 CALCIUM 8.9 02/09/2021 Lab Results Component Value Date WBC 8.4 02/09/2021 HGB 12.5 02/09/2021 HCT 38.3 02/09/2021 MCV 90.1 02/09/2021 PLATELET 147 02/09/2021 ASSESSMENT / PLAN: Jesenia Méndez is a 60 y.o. female 1 Day Post-Op s/p L ankle I&D. Doing well post-operatively. Wound vac to suction. Intra-op cxs growing GPCs, appreciate recs per ID. Plan for return to OR tomorrow for repeat I&D w/ possible closure, please keep NPO MN. Activity: NWB RUE in cast, NWB LLE Closure: Wound vac Dressing: Wound vac Drain: Wound vac (1 black, 1 white sponge) Anticoagulation: ASA 81 mg BID for 30 days Antibiotics: per ID Consults: rec ID, hold if stable prior to OR Dispo: Per hospital course Follow-up: Pending hospital course Nilton Nicole MD 02/09/2021 Future Appointments Date Time Provider Department Center 03/20/2021 1:00 PM [facility] [place] [facility] [place] 03/20/2021 1:30 PM [facility] DX ROOM 3 [facility] Xray [facility] Rad 03/20/2021 2:20 PM Dorina Campbell APRN [place] [facility] [place] * BlasToño MD - 02/08/2021 4:21 PM EDT ORTHOPAEDIC SURGERY INPATIENT PROGRESS NOTE Patient Name: Jesenia Méndez Age: 60 y.o. Attending: Dr. Quiñones Date of surgery: 02/08/2021 Surgery/Issue: 1. Hx left ankle fx s/p ORIF now s/p I&D of L ankle infected wound (02/08) 2. Periprosthetic ulna fx being managed in cast- cast feeling tight, now s/p bivalve SUBJECTIVE / INTERVAL HISTORY: Resting comfortably. Tolerating PO intake. Wound vac to suction. Cxs growing GPCs. Pain well controlled. Patient denies chest pain, shortness of breath, nausea, vomiting, numbness/weakness. FOCUSED REVIEW OF SYSTEMS: as above. Active Hospital Problems Diagnosis ??? Ankle abscess Resolved Hospital Problems No resolved problems to display. Active Non-Hospital Problems Diagnosis ??? Closed fracture of left ankle with routine healing ??? H/O insulin dependent diabetes mellitus ??? H/O: depression ??? Hypothyroidism ??? h/o chronic headaches ??? Closed fracture of shaft of right ulna with known elbow arthrodesis RIGHT ??? Chronic pain in left shoulder ??? S/P R elbow fusion on 12/14/17 [facility] ??? Psoriasis MEDICATIONS: ??? acetaminophen (Tylenol) tablet 1,000 mg ??? lidocaine (Lidoderm) 5% topical patch 3 patch AND lidocaine (Lidoderm) topical patch REMOVAL ??? hydrOXYzine (Atarax) tablet 50 mg ??? oxyCODONE (Roxicodone) tablet 5 mg ??? senna-docusate (Pericolace) 8.6-50 mg per tablet 2 tablet ??? polyethylene glycoL (Miralax) packet 17 g ??? magnesium hydroxide (Milk of Magnesia) (240 mg/mL) oral liquid 30 mL ??? aspirin EC tablet 81 mg ??? buPROPion XL (Wellbutrin XL) tablet 150 mg ??? calcium carbonate (Tums) chewable tablet 1,250 mg ??? cyclobenzaprine (Flexeril) tablet 10 mg ??? folic acid (Folvite) tablet 1,000 mcg ??? gabapentin (Neurontin) capsule 300 mg ??? levothyroxine (Synthroid) tablet 50 mcg ??? losartan (Cozaar) tablet 25 mg ??? multivitamin with minerals (THERA-M) tablet 1 tablet ??? pantoprazole EC (Protonix) tablet 40 mg ??? sertraline (Zoloft) tablet 200 mg ??? topiramate (Topamax) tablet 100 mg ??? sodium chloride 0.9 % (flush) flush 5 mL ??? sodium chloride 0.9 % (flush) flush 5-20 mL ??? lidocaine (Xylocaine) 1% (10 mg/mL) injection 3 mg ??? glucose (GLUTOSE) 40% oral geL OR dextrose 10% infusion OR glucagon (Glucagen) (1 mg/mL) injection solution 1 mg ??? ondansetron (Zofran) tablet 4-8 mg OR ondansetron (pf) (Zofran) (2 mg/mL) injection 4-8 mg ??? POCT Fingerstick Glucose AND insulin lispro (HumaLOG;Admelog) (100 unit/mL) subcutaneous injection vial 1-4 Units ??? insulin glargine (Lantus) (100 unit/mL) subcutaneous injection vial 20 Units ??? enoxaparin (Lovenox) (40 mg/0.4 mL) subcutaneous injection 40 mg OBJECTIVE: Temp: [36.4 ??C (97.5 ??F)-38.3 ??C (100.9 ??F)] Heart Rate: [100-117] Resp: [15-20] BP: (129-168)/(68-91) Intake/Output Summary (Last 24 hours) at 02/08/2021 1622 Last data filed at 02/08/2021 1026 Gross per 24 hour Intake 1000 ml Output 803 ml Net 197 ml Body mass index is 33.47 kg/m??. PE: General: awake/alert, responds to questions CV: RRR assessed peripherally Resp: Breathing comfortably on RA LLE: Dressing c/d/i, wound vac to suction Sensory absent in DP, decreased in SP/T (baseline) Motor intact to FHL/EHL/TA Brisk capillary refill distally, foot warm/well-perfused Lab Results Component Value Date NA 136 02/08/2021 K 3.7 02/08/2021 CL 102 02/08/2021 CO2 23 02/08/2021 BUN 13 02/08/2021 CREATININE 0.96 02/08/2021 GLUCOSE 177 02/08/2021 CALCIUM 9.0 02/08/2021 Lab Results Component Value Date WBC 8.6 02/08/2021 HGB 13.0 02/08/2021 HCT 39.7 02/08/2021 MCV 89.2 02/08/2021 PLATELET 165 02/08/2021 ASSESSMENT / PLAN: Jesenia Méndez is a 60 y.o. female Day of Surgery s/p L ankle I&D. Doing well post-operatively. Wound vac to suction. Intra-op cxs growing GPCs, appreciate recs per ID. Plan for return to OR Tuesday for repeat I&D w/ possible closure. Activity: NWB RUE in cast, NWB LLE Closure: Wound vac Dressing: Wound vac Drain: Wound vac (1 black, 1 white sponge) Anticoagulation: ASA 81 mg BID for 30 days Antibiotics: per ID Consults: rec ID, hold if stable prior to OR Dispo: Per hospital course Follow-up: Pending hospital course Toño Odonnell MD 02/08/2021 Future Appointments Date Time Provider Department Center 03/20/2021 1:00 PM [facility] [place] [facility] [place] 03/20/2021 1:30 PM [facility] DX ROOM 3 [facility] Xray [facility] Rad 03/20/2021 2:20 PM Dorina Campbell APRN [place] [facility] [place] * Selina Ramirez RN - 02/08/2021 1:57 PM EDTSummary: [place] [facility]: VNA/vendor choice The patient/unit support representative has been provided a list of Home Health Agencies/DME vendors which servetheir preferred geographic area. Patient lives in [facility] covered only by [employer]. She had been referred to this agency in the past. There would be no other VNA choices. N/A: A letter describing our affiliations was reviewed with them and they were educated about theirright to choose where referrals are placed. Discussed [facility] Star Quality Rating for Home care report. Patient requests referral to [facility]. PHONE: [phone] FAX: [phone]. Expected date of discharge: 3-5 days. Referral routed to the Practice Professional for matching with agency/vendor and to provide any required information. Selina [facility] [facility] W/E velocity shooter Pager: [phone] * Ingrid Yañez RN - 02/08/2021 10:48 AM EDT 1041: Patient arrived to PACU22 from OR and attached to monitors. Vital signs stable. Alarms audible and set appropriately. Report received from surgical service and anesthesia. L ankle wound vac in place, -125 mmHg continuous therapy draining serosanguinous drainage. Patient in no apparent distress. 1145: Patient resting in bed with eyes closed. Appears comfortable. Converses appropriately. Statespain is tolerable and denies nausea. Report given to RN on 1W. * Cami Ugarte APRN - 02/08/2021 7:39 AM EDT [facility] Medicine Daily Progress Note Admit Date: 02/07/2021 Hospital Day 1 day Hospital Problems: Active Hospital Problems Diagnosis ??? Ankle abscess Resolved Hospital Problems No resolved problems to display. Non-Hospital Problems: Active Non-Hospital Problems Diagnosis ??? Closed fracture of left ankle with routine healing ??? H/O insulin dependent diabetes mellitus ??? H/O: depression ??? Hypothyroidism ??? h/o chronic headaches ??? Closed fracture of shaft of right ulna with known elbow arthrodesis RIGHT ??? Chronic pain in left shoulder ??? S/P R elbow fusion on 12/14/17 [place] ??? Psoriasis Interval History: - To OR today for washout and wound vac - med rec at bedside - Elbow fx was obtained in fall 1wk before fall resulting in ankle fx--has never had bone scan, both falls were mechanical - vitamin D lab in AM - consider endorcrine, dexa scan, bone density workup outpatient - Plan to return to OR on Tuesday for wash out and vac exchange - pain well managed thus far w/ tylenol, lidoderm patches, prn oxycodone Assessment & Plan: 60 y.o. female with past medical history of diabetes, hypothyroidism, depression, psoriasis, chronic headaches, presenting with complaints of left ankle swelling, pain, erythema and purulent drainageafter having ORIF on 01/21/2021 at [facility]. CT of the ankle showed LLE cellulitis with small abscess at the lateral malleolus. To OR this morning with ortho for washout and LLE post ORIF wound found to be purulent in OR, cultures obtained and pending. Holding on abx for now as clinically stable. Will need to adhere strictly to NWB status and work w/ PT and OT. A1c 7.9 on admission, will continue to monitor blood sugars closely. Given multiple recent falls resulting in fractures, will obtain vitamin D in Am labs, considerendocrine workup outpatient and/or dexa scan to evaluate for possible osteoporosis vs osteopenia. Reports pain is well controlled--as she is tolerating PO well, will avoid IV narcotics if possible, continue with non- narcotic treatment options as able, and po oxy if needed. ?? #LLE cellulitis and abscess: -Following recent ORIF at [facility] s/p mechanical fall w/ fracture -Reported noncompliance with weight bearing instructions etc could have contributed. - To OR 02/08 for washout w/ vac placement - NWB LLE - pending operative wound cultures - holding on abx at this time unless becomes clinically unstable, then would start cefazolin or other broad spectrum regimen - May need to consult ID. -Elevate left leg -Pain control with Tylenol, lidoderm, po oxy ?? #Right upper extremity fracture, currently in cast: -Patient feeling better with bivalved cast. We will engage orthopedic team if develops recurrent symptoms. -Elevate right upper extremity - occurred 1wk before ankle fracture, also due to mechanical fall ?? #Diabetes: - continue nightly 25units lantus home dose - SSI - did not take home victoza on day of presentation - A1C on 02/07 = 7.9 #HTN - continue home losartan #hypothyroidism - continue home levothyroxine #Depression #anxiety - wellbutrin, sertraline home meds?? Diet CHO1 IV Access PIV mIVF Tubes/Drains Wound vac GI prophylaxis Home ppr DVT prophylaxis Lovenox PT/OT/C[employer]PINGS PT/OT Wound Care Anticipated Disposition TBD Code Status Attempt Cardiopulmonary Resuscitation - Inpatient Team Pager (MD coverage 14/03) [phone] PCP Maryuri Evans MD Family Update Family updated by team bedside Shared Visit This patient was seen in conjunction with Dr. Mary as part of a shared visit. ROS: Denies f/c/n/v/d/con, CP, SOB, abd pain, n/t, arm or leg pain Endorses eager for lunch (she was about to start eating at time of my visit), questions about return to OR for repeat washout Vital Signs: Last 24 hrs Temperature Temp: [36.4 ??C (97.5 ??F)-38.3 ??C (100.9 ??F)] Heart Rate Heart Rate: [100-117] Blood Pressure BP: (129-168)/(68-91) Respiratory Rate Resp: [15-20] SpO2 SpO2: [93 %-100 %] BMI: Weight: 83 kg (183 lb) (02/07/21 1438) BMI (Calculated): 33.47 BMI Classification: Obese Intake & Output: Intake/Output Summary (Last 24 hours) at 02/08/2021 1542 Last data filed at 02/08/2021 1026 Gross per 24 hour Intake 1000 ml Output 803 ml Net 197 ml Estimated Creatinine Clearance: 63.1 mL/min (based on SCr of 0.96 mg/dL). Physical Exam: GENERAL: A&Ox4, awake, not in acute distress, calm, cooperative, appears older than chronologicage, obese, sitting up in bed eating lunch HEENT: PERRLA, MMM, anicteric CHEST: RRR, S1/S2 normal, CR<2sec LUNGS: LSCTAB, no W/R/R, no respiratory distress ABDOMEN: NABS, soft, non-tender, non-distended, no rebound, no guarding, resonant EXTREMITIES/MSK: pulses full and equal, good CSM RUE and LLE, no edema, no cyanosis/clubbing LLE: wound vac in place, lower leg in CDI dali, strong pedal pulse, sensation RUE: in full arm bivalve cast w/o significant edema, good sensation, using casted arm well to help feed self SKIN: warm, dry, intact, no rashes/lesions/erythema NEURO: No focal deficit, CN grossly intact, spontaneously moves all extremities PSYCH: normal affect, normal mood, normal speech, no hallucinations, no dysarthria Inpatient Medications: Scheduled: ??? acetaminophen 1,000 mg Oral Q8H RJ ??? lidocaine 3 patch Transdermal Q24H And ??? lidocaine 3 patch Transdermal Q24H ??? senna-docusate 2 tablet Oral BID ??? polyethylene glycoL (MIRALAX) oral powder 17 g Oral Daily ??? aspirin EC 81 mg Oral Daily ??? buPROPion XL 150 mg Oral QAM ??? calcium carbonate 1,250 mg Oral Daily ??? folic acid 1 mg Oral Daily ??? gabapentin 300 mg Oral TID ??? levothyroxine 50 mcg Oral QAM ??? losartan 25 mg Oral Daily ??? multivitamin with minerals 1 tablet Oral Daily ??? pantoprazole EC 40 mg Oral Daily ??? sertraline 200 mg Oral Daily ??? topiramate 100 mg Oral BID ??? sodium chloride 0.9 % (flush) 5 mL Intravenous BID ??? insulin lispro 1-4 Units Subcutaneous Q4H RJ ??? insulin glargine 20 Units Subcutaneous Nightly ??? enoxaparin 40 mg Subcutaneous Nightly Continuous Infusions: PRN: hydrOXYzine, oxyCODONE, magnesium hydroxide, cyclobenzaprine, sodium chloride 0.9 % (flush), lidocaine, glucose 40% oral geL OR dextrose 10% OR glucagon, ondansetron OR ondansetron Studies reviewed in eDH and remarkable for the following: Labs: LABS: Recent Labs 02/08/21 0319 02/07/21 1503 WBC 8.6 9.9* HGB 13.0 13.8 HCT 39.7 41.8 PLATELET 165 170 Recent Labs 02/08/21 0319 02/07/21 1503 NA 136 135 K 3.7 4.1 CL 102 102 CO2 23 22 BUN 13 12 CREATININE 0.96 1.00 No results for input(s): AST, ALT, ALKPHOS, BILITOT, BILIDIR in the last 168 hours. Recent Labs 02/08/21 0319 02/07/21 1503 CALCIUM 9.0 9.3 No results for input(s): PT, INR, PTT in the last 168 hours. No results for input(s): CK, TROPONINT in the last 168 hours. FSBG Trend: Recent Labs 02/08/21 1211 02/08/21 0757 02/08/21 0410 02/08/21 0205 02/07/21 2347 02/07/21 2207 02/07/21 2051 POCGLU 186 141 164 204* 267* 311* 254* MICRO: No results for input(s): URINECULTURE in the last 720 hours. Recent Labs 02/08/21 1030 GRAMSTAIN Few Neutrophils seen Rare Gram Positive Cocci seen * Moderate Neutrophils Many Gram Positive Cocci seen * Few Neutrophils seen Moderate Gram Positive Cocci * No results for input(s): BLOODCX in the last 720 hours. ECG: No results for input(s): DIAGLINE, QTCCALC in the last 720 hours. Vascular: No results for input(s): VBTEXTRPT in the last 720 hours. Imaging: Results for orders placed or performed during the hospital encounter of 02/07/21 XR Ankle Min 3 views Left (Generic) (Exam End: 02/07/2021 3:33 PM) Impression Apparent incision and drainage laterally adjacent to open reduction internal fixation of the distal fibula. Lucency about the I and D site. Hardware appears grossly unremarkable. There is mottled gas in the soft tissues and induration of the soft tissues. Plantar spurring. CT may be useful to better assess the soft tissues relative to the osseous structures and internal. Thank you for letting us participate in the care of this patient. If you are a health care provider and have any questions regarding this report, please contact the number below. For patients who have questions please contact the health day care supervisor that requested your imaging first. Electronically signed by: Anthony Carrillo MD, [facility] ([phone]), at 02/07/2021 3:[address] Lower Extremity w Contrast Left (Exam End: 02/07/2021 5:51 PM) Impression Left lower extremity cellulitis extending from the distal tibia and fibula to the foot, with small abscess at the lateral malleolus. Thank you for letting us participate in the care of this patient. If you are a health care provider and have any questions regarding this report, please contact the number below. For patients who have questions please contact the health day care supervisor that requested your imaging first. Electronically signed by: Meli Gonzales MD, [facility] ([phone]), at 02/07/2021 6:17 PM Other studies/procedures: Procedure(s): DEBRIDEMENT SKIN AND SUBCU, LOWER EXTREMITY (WRVU 1.01) Cami Ugarte APRN 02/08/2021 Associated attestation - Edilma Mary MD - 02/08/2021 5:32 PM EDT Attending Shared Visit Attestation This patient was seen in conjunction with Cami Ugarte APRN as part of a shared visit. I have examined the patient myself on 02/08/2021 and reviewed all labs and studies personally. I have discussed,reviewed and agree with the documented interval history with ROS, physical findings, labs/studies, assessment and plan of care. In addition, I certify that I am a [facility] credentialed attending provider with admitting privileges and that the patient meets or has met medical necessity to require an inpatient IPI level of care meeting a minimum of two midnights or is on the [facility] inpatient only procedure list (status C) due to: monitoring of fluid status given an inability to regulate fluid balance and the need for administrationor restriction of fluids and LT ankle infected hardware/abscess requiring I&D and IV abx. Additions to the history, physical, assessment and plan include the followin yo F with PMHx DM2 (A1C 7.9), HTN, hypothyroidism with recent multiple ground level mechanical falls who presented to [facility] ED from home with drainage from LT carrillo wound. Given concern for infectedhardware and osteomyelitis, she had I&D and wound vac placement on 02/08. Wound cultures growingGPC. Will start pt on Vanc/Ancef and de-escalate as able. Plan for repeat OR on Tue. PT/OT cs - will likely need rehab as is NWB RUE & LLE. Rest per Cami Ugarte APRN's note. Edilma Mary MD 02/08/2021 * Yani Dumas MD - 02/08/2021 6:15 AM EDT Orthopaedic Surgery Progress Note SURGERY/ISSUE: L ankle infection s/p ORIF ATTENDING: Dr. Quiñoens Patient Active Problem List Diagnosis Code ??? Psoriasis L40.9 ??? S/P R elbow fusion on 12/14/17 [facility] S53.106A ??? Chronic pain in left shoulder M25.512, G89.29 ??? H/O insulin dependent diabetes mellitus Z86.39 ??? H/O: depression Z86.59 ??? Hypothyroidism E03.9 ??? h/o chronic headaches R51.9, G89.29 ??? Closed fracture of shaft of right ulna with known elbow arthrodesis RIGHT S52.201A ??? Ankle abscess L02.419 Interval History: No acute events, Tmax 38.3 overnight. Vital signs stable, pain controlled, slept intermittently. Has been NPO since midnight. Temp: [36.2 ??C (97.1 ??F)-38.3 ??C (100.9 ??F)] Heart Rate: [95-117] Resp: [17-20] BP: (129-168)/(68-86) SpO2: [93 %-100 %] Heart Rate from SpO2: [99 bpm] No intake/output data recorded. I/O this shift: In: 550 [I.V.:550] Out: 800 [Urine:800] PE: Gen- AOx3, NAD HEENT- NCAT CV- RRR checked peripherally Pulm- No incr WOB LLE Dressing C/D/I Incision with purulence from the proximal aspect SILT in DP/SP/T Firing EHL/TA/GC Foot WWP Last 3 wbc, hgb, hct plt Recent Labs 02/08/21 0319 02/07/21 1503 01/02/21 1234 WBC 8.6 9.9* 7.6 HGB 13.0 13.8 15.1 HCT 39.7 41.8 46.6* PLATELET 165 170 170 Last 3 Coags No results for input(s): PT, INR, PTT in the last 168 hours. Last CRP, SEDRATE Recent Labs 02/07/21 1503 CRP >300.0* SEDRATE 58* Imaging: CT L ankle: IMPRESSION Left lower extremity cellulitis extending from the distal tibia and fibula to the foot, with small abscess at the lateral malleolus A/P: 60 y.o. female with a left ankle infection s/p ORIF. Patient afebrile this morning with stablevital signs. Will plan for I&D in OR today. - Activity-nonweightbearing of the right upper extremity and long-arm bivalved cast. Nonweightbearing of the left lower extremity (has walker boot). Strict elevation of both extremities. - DVT prophylaxis- rec lovenox - Antibiotics: Hold pending potential operative cultures. Can start antibiotics if patient shows instability. - Diet - NPO pending ?? YANI DUMAS MD Future Appointments Date Time Provider Department Center 03/20/2021 1:00 PM CAST ROOM 3A [facility] 03/20/2021 1:30 PM [facility] DX ROOM 3 MH Xray [facility] Rad 03/20/2021 2:20 PM Dorina Campbell APRN [facility] Associated attestation - Henrry Quiñones MD - 02/08/2021 10:02 AM EDT I have seen the patient and reviewed the attached history/physical and I agree with the details as written. The assessment and plan were formulated in discussion with me and I agree with them as documented. This is a diabetic patient with a complicated history in regards to her orthopedic issues. She recently underwent ORIF of a left ankle fracture at the [facility]. She presented in follow-up for a fracture around a plate from an elbow fusion on the contralateral side. That was her chief complaint. The cast was bivalved and this improved her symptoms. Unfortunately during the discussion with her it was noted that the ankle wound was actively draining. She had elevated inflammatory markers and a CT scan consistent with a potential abscess. Due to her elevated CRP and high risk of infection secondary to her high blood sugars we discussed operative debridement. We discussed debriding the ankle and likely placing a wound VAC. The patient understands she may need serial debridements and at some point potential removal of the hardware. I reviewed this with the patient this morning and the plan is to take her to the operating room pending availability. All questions were answered. HENRRY QUIÑONES MD, MS 02/08/2021 documented in this encounter H&P Notes * Elizabeth Keith MD - 02/14/2021 7:06 AM EDT Patient Name: Jesenia Méndez Patient Age: 60 y.o. Birthdate: 1960 Admit date: 02/07/2021 Attending Physician: Edilma Mary MD The patient's history and physical exam have been reviewed and completed. There has been no interval change from that of the pre-operative history and physical exam done within the last 30 days. Associated attestation - Sabrina Capellan MD - 02/15/2021 2:00 PM EDT I have seen the patient and reviewed the attached history/physical and all imaging and I agree withthe details as written. The assessment and plan were formulated in discussion with me and I agree with them as documented. Micaela Capellan MD Department of Orthopaedics 02/15/2021 * Seth Yarbrough MD - 02/12/2021 5:57 AM EDT 24-HOUR UPDATE Jesenia Méndez's history and physical exam have been reviewed and completed. There has been no interval change from that of the pre-operative history and physical exam done within the last 30 days. CV: RRR, no RMG Pulm: LCTAB Plan for left leg I&D today Seth Yarbrough MD P. [phone] 02/12/21 5:57 AM Associated attestation - Sabrina Capellan MD - 02/12/2021 6:11 AM EDT I have seen the patient and reviewed the attached history/physical and all imaging and I agree withthe details as written. The assessment and plan were formulated in discussion with me and I agree with them as documented. Micaela Capellan MD Department of Orthopaedics 02/12/2021 * Seth Yarbrough MD - 02/10/2021 5:57 AM EDT 24-HOUR UPDATE Jesenia Méndez's history and physical exam have been reviewed and completed. There has been no interval change from that of the pre-operative history and physical exam done within the last 30 days. CV: RRR, no RMG Pulm: LCTAB Plan for repeat I&D left ankle today Seth Yarbrough MD P. [id number] 02/10/21 5:57 AM Associated attestation - Jacobo De La Cruz MD - 02/10/2021 7:48 AM EDT I saw and evaluated the patient. Plan for return to OR today for repeat irrigation and debridement with likely wound VAC placement for her ankle infection/wound dehiscence. This was discussed with the patient including the risk, potential benefits, and alternatives to this plan. The patient was in a greement with the plan to proceed to the OR. * Mark Chavez MD - 02/07/2021 6:57 PM EDT Inpatient Hospital Medicine - Admission Note Problem List: There are no hospital problems to display for this patient. Active Non-Hospital Problems Diagnosis ??? H/O insulin dependent diabetes mellitus ??? H/O: depression ??? Hypothyroidism ??? h/o chronic headaches ??? Closed fracture of shaft of right ulna with known elbow arthrodesis RIGHT ??? Chronic pain in left shoulder ??? S/P R elbow fusion on 12/14/17 [facility] ??? Psoriasis ID: 60 y.o. Female presents to [facility] with left ankle pain and drainage. History of Present Illness: STEVO Méndez is a 60 y.o. female with past medical history of diabetes, hypothyroidism, depression, psoriasis, chronic headaches, presenting with complaints of left ankle swelling, pain and purulent drainage. Ms Méndez recently underwent open reduction and internal fixation on January 21, 2021 at [facility] for left ankle fracture that she suffered from a fall on January 11, 2021. She reports that the purulent drainage started on the day of surgery and has been slowly getting worse. From orthopedic team's documentation, it appears that she was managed in a splint initially, and wastransitioned to the walking boot on February 03, 2021 when she saw her orthopedic surgeon Dr Donald in the clinic. During the visit, she had endorsed numbness and tingling at the dorsum of her foot, but the notes did not indicate any drainage or significant erythema at that time. There was a concern that she was putting weight on the leg against her surgeon's advice, and there was a risk for eventual wound breakdown. Patient reports that she was having drainage at the time of this visit and was told that this was something expected. She has continued to have more erythema, pain and drainage, and also felt warm and had chills earlier today, that made her concerned enough to present to the ED. In the ED, she also reported pain in her right upper extremity. She is being managed in a long-arm cast for right periprosthetic ulnar fracture just distal to her elbow fusion plate, and had cast exchange done at [facility] Ortho clinic yesterday. She reported that her cast felt tight and she was having decreased sensation in her right hand. Her CRP was found to be more than 300. Orthopedic team was consulted who bivalved her current rightupper extremity cast resulting in significant improvement in her symptoms in the right hand. CT scan of the left ankle was obtained that showed left lower extremity cellulitis extending from the distal tibia and fibula to the foot, with small abscess at the lateral malleolus. Orthopedic team is planning to take her to the OR tomorrow morning for irrigation and debridement with likely application of wound VAC. To increase yield of perioperative cultures, they have suggested to hold off on antibiotics unless she becomes hemodynamically unstable. There have recommended admission to hospital medicine for better control of her blood sugar. She is a nondiabetic and her blood sugar in the ED was 315. She did not take her dose of Victoza today. She did take the dose of Lantus 25 units last night. No report of recent cough, dyspnea, chest pain, abdominal pain, nausea, vomiting, diarrhea, constipation, dysuria. Review of Systems: Review of Systems 14 point ROS is negative except as mentioned above. Past Medical and Surgical History: No past medical history on file. Past Surgical History: Procedure Laterality Date ??? PRO ALVEOLOPLASTY W EXTRACTIONS, 4 OR MORE TEETH, PER QUADRANT N/A 09/11/2019 ALVEOPLASTY,IN CONJUNCTION WITH EXTRACTIONS,PER QUADRANT,ENT (WRVU 4.06) performed by Wesley Jacobo MD at [facility] ??? PRO FUSION/GRAFT OF ELBOW JOINT Right 2017 ARTHRODESIS, ELBOW JOINT WITH AUTOGENOUS GRAFT (WRVU 14.32) performed by Christopher Correa MD at [facility] OR ??? PRO REMOVAL DEEP IMPLANT Right 2017 REMOVAL OF IMPLANT, DEEP, ELBOW (WRVU 5.96) performed by Christopher Correa MD at [facility] OR ??? PRO REMOVAL ERUPTED TOOTH WITH ELEVATION OF MUCOPERIOSTEAL FLAP Bilateral 09/11/2019 SURGICAL EXTRACTIONS REQUIRING ELEVATION OF MUCOPERIOSTEAL FLAP AND REMOVAL OF BONE OR SECTION OF TOOTH (WRVU 1.09) performed by Wesley Jacobo MD at [facility] Prior To Admission Medications: (Not in a hospital admission) Allergies: Allergies Allergen Reactions ??? Latex Other reaction(s): Skin Rash ??? Erythromycin Lactobionate Other reaction(s): Nausea ??? Metformin Other reaction(s): Nausea ??? Pollen Extracts Other reaction(s): Rhinusitus ??? Trazodone Other reaction(s): Hallucination ??? Adhesive Other reaction(s): Skin Rash ??? Lisinopril Cough. Pt reported Other reaction(s): cough Family History: Family History Problem Relation Age [...] Week: ??? Minutes of Exercise per Session: Immunizations: Immunization History Administered Date(s) Administered ??? Influenza Vaccine, Whole 06/16/2008 Physical Exam: Last Set of Vitals and range of vitals over past 24 hours: Last value Range last 24 hrs Temperature Temp: 36.2 ??C (97.1 ??F) Temp: [36.2 ??C (97.1 ??F)] Heart Rate Heart Rate: 95 Heart Rate: [95] Blood Pressure BP: 146/75 BP: (146)/(75) Respiratory Rate Resp: 18 Resp: [18] SpO2 SpO2: 98 % SpO2: [98 %] Body mass index is 33.47 kg/m??. Physical Exam Constitutional: Well developed, appears in moderate distress Eye: Normal conjuctivae HENT: normocephalic and atraumatic head, neck supple and non- tender. Oral mucosa moist. Pulm: Clear to auscultation bilaterally, no wheezes, rhonchi or rales; good inspiratory effort CVS: normal S1 and S2, RRR, no murmurs GI: Soft, non-tender, nondistended, bowel sounds appreciated in all 4 quadrants Ext: No edema, clubbing MSK: RUE in long-arm cast. Distal left leg has erythema around the prior surgical incision. The base of incision site appears to have pus, but no carey purulent drainage is noted. Macerated edges of the incision site are noted. Very tender to palpation in left foot and distal leg, more so on the lateral aspect. Range of motion severely limited due to pain. Sensation seems intact over plantar aspect of the foot, but diminished on the dorsal side of the foot as well as in her leg up to the knee. No abnormalities on exam on the right leg or foot. Neuro: Alert, oriented times 4 Psych/ mood: Appears upset, crying during interview Laboratory (Last 24 Hours): Recent Results (from the past 24 hour(s)) Basic Metabolic Panel (non-fasting) Result Value Ref Range Glucose Lvl 315 (H) 65 - 199 mg/dL BUN 12 8 - 18 mg/dL Creatinine 1.00 0.70 - 1.20 mg/dL Sodium 135 135 - 145 mmol/L Potassium 4.1 3.5 - 5.0 mmol/L Chloride 102 98 - 107 mmol/L CO2 22 22 - 31 mmol/L Anion Gap 11 5 - 15 mmol/L Calcium 9.3 8.5 - 10.5 mg/dL Estimated GFR 62 >=60 mL/min/1.73 m?? Sedimentation rate Result Value Ref Range Sed Rate 58 (H) 2 - 39 mm/hr CRP, acute inflammation Result Value Ref Range CRP >300.0 (H) <=4.9 mg/L Hemogram Result Value Ref Range WBC 9.9 (H) 4.0 - 9.5 x10(3)/mcL RBC 4.77 4.00 - 5.21 x10(6)/mcL Hemoglobin 13.8 11.7 - 15.5 gm/dL Hematocrit 41.8 35.7 - 45.8 % MCV 87.6 82.6 - 94.4 fL MCH 28.9 27.1 - 32.0 pg MCHC 33.0 31.7 - 35.0 gm/dL Platelets 170 145 - 357 x10(3)/mcL RDWSD 41.8 37.0 - 46.0 fL RDWCV 12.9 11.5 - 14.1 % MPV 11.2 7.6 - 12.9 fL nRBC % Auto 0.0 % nRBC Abs Auto 0.000 0.000 - 0.000 x10(3)/mcL Differential, Automated Result Value Ref Range Neutrophils % 90.7 % Neutr Abs (ANC) 8.98 (H) 1 - 6 x10(3)/mcL Lymphocytes % 3.1 % Lymphocytes Abs 0.3 (L) 0.9 - 3.2 x10(3)/mcL Monocytes % 5.2 % Monocyte Abs 0.5 0.3 - 0.9 x10(3)/mcL Eosinophils % 0.2 % Eosinophils Abs 0.0 0.0 - 0.4 x10(3)/mcL Basophils % 0.5 % Basophils Abs 0.0 0.0 - 0.1 x10(3)/mcL Immature Gran % 0.30 % Chanda Gran Abs 0.03 0.00 - 0.04 x10(3)/mcL Gold Tube HOLD Result Value Ref Range Gold Hold Sample in lab. Green Tube HOLD Result Value Ref Range Green Hold Sample in lab. Microbiology: Microbiology Results (Last 30 days) No results found for the last 720 hours. Radiology: Results for orders placed or performed during the hospital encounter of 02/07/21 XR Ankle Min 3 views Left (Generic) (Exam End: 02/07/2021 3:33 PM) Impression Apparent incision and drainage laterally adjacent to open reduction internal fixation of the distal fibula. Lucency about the I and D site. Hardware appears grossly unremarkable. There is mottled gas in the soft tissues and induration of the soft tissues. Plantar spurring. CT may be useful to better assess the soft tissues relative to the osseous structures and internal. Thank you for letting us participate in the care of this patient. If you are a health care provider and have any questions regarding this report, please contact the number below. For patients who have questions please contact the health day care supervisor that requested your imaging first. Electronically signed by: Anthony Carrillo MD, [facility] ([phone]), at 02/07/2021 3:[address] Lower Extremity w Contrast Left (Exam End: 02/07/2021 5:51 PM) Impression Left lower extremity cellulitis extending from the distal tibia and fibula to the foot, with small abscess at the lateral malleolus. Thank you for letting us participate in the care of this patient. If you are a health care provider and have any questions regarding this report, please contact the number below. For patients who have questions please contact the health day care supervisor that requested your imaging first. Electronically signed by: Meli Gonzales MD, [facility] ([phone]), at 02/07/2021 6:17 PM Other Studies: None Assessment: 60 y.o. female with past medical history of diabetes, hypothyroidism, depression, psoriasis, chronic headaches, presenting with complaints of left ankle swelling, pain, erythema and purulent drainageafter having ORIF on 01/21/2021 at [facility]. CT of the ankle showed LLE cellulitis with small abscess at the lateral malleolus. Plan: ?? Admit to hospital medicine #LLE cellulitis and abscess: -Following his recent ORIF. Reported noncompliance with weight bearing instructions etc could have contributed. -Orthopedic team on board. Appreciate their recommendations. No antibiotics unless patient becomes clinically unstable. N.p.o. after midnight. Nonweightbearing. Plan for or in the morning for I&Dand wound VAC. -We will start broad-spectrum antibiotics after surgery. Will de-escalate based on intraoperative cultures, as well as blood cultures which are being sent. May need to consult ID. -Elevate left leg -Pain control with Tylenol and IV Dilaudid #Right upper extremity fracture, currently in cast: -Patient feeling better with bivalved cast. We will engage orthopedic team if develops recurrent symptoms. -Elevate right upper extremity #Diabetes: -She has not taken her morning dose of Victoza today, which could explain her elevated blood sugarsright now. She typically takes Lantus 20 5 at night. Given the fact that she is going to be n.p.o. after midnight for OR tomorrow and she has not taken her Victoza today, I will give her 20 units of Lantus tonight and keep her on sliding scale insulin. Based on her requirements, doses will need to be changed. -Check hemoglobin A1c Jesenia reports taking 200 mg daily losartan, for depression. This seems unusual and likely incorrect. Based on surescripts and [facility] records, she is supposed to be on 25 mg of losartan daily, which ismost likely true. I have resumed this dose. ?? DVT Prophylaxis with Lovenox ?? If currently a smoker - advised about smoking cessation and will provide smoking cessation material and support. ?? Pneumovax and Influenza Immunizations given as needed. ?? Discussed Advanced Directives and Code Status. The patient wishesto be Full Code. A copy of this document will be sent to the patient's Primary Care Physician and/or Referring Physician. Mark Chavez MD 02/07/2021 documented in this encounter Procedure Notes * Sneha Chung RN - 02/14/2021 8:11 AM EDTAssociated Order(s): PLACE PICC LINE: CONTACT VASCULAR ACCESS PICC/Midline Insertion Procedure Note Indications: Anti-infective and Access This insertion was not to replace a malfunctioning catheter. This insertion was not due to a suspected line-associated infection. Location of Procedure: X-Ray Room 11 Risks and Benefits: The risks and benefits of this procedure were reviewed and informed consent was obtained obtained. Time Out: Prior to the start of the procedure, the patient's identity, intended procedure, site/side, correctpatient positioning and presence of the site luly was confirmed as applicable. The medical history and chart were reviewed to rule out potential contraindications to the planned procedure. Hand Hygiene: The search marketing coordinator did perform hand hygiene prior to line insertion. Catheter type: PICC Lot number: [id number] Procedure Technique: Skin was prepped with chlorhexidine. Skin preparation agent was completely dry at the time of first skin puncture. The following barrier precaution methods were used:large sterile drape, maske/eye shield, large sterile gown, sterile gloves and cap. 2 ml of 1% Lidocaine was used for skin wheal. Ultrasound was used for guidance. Radiographic contrast agent was not injected for vein identification. Procedure Details: Order received for catheter placement. A 4 Fr. single lumen Bard Power catheter was placed into theleft basilic vein over a 0.018 inch guidewire using modified seldinger technique and fluoroscopy. Arm circumference was 33 cm at 2 cm above the insertion site. Final catheter length (with trimming): 38 cm Internal: 38 cm External: 0 cm Tip in SVC per DR SALEEM. The line was not placed over a guidewire. Post Procedure: Diagnosis: I & d / SUE LEFT ANKLE Blood return noted on aspiration of line after placement confirmed. 5 mls of normal saline infused free flowing to gravity via PICC after insertion. Sterile dressing applied: Biopatch and Sorbaview. Findings: The patient did tolerate the procedure well. No Complications. Procedure Comments: SNEHA CHUNG RN 02/14/2021 documented in this encounter ED Notes * Nuvia Wesley PA - 02/07/2021 3:44 PM EDT ED PROVIDER NOTE Patient: Jesenia Méndez Age (): 60 y.o. (1960) SUBJECTIVE CC: Cast problem, L ankle pain/redness HPI: Jesenia Méndez is a 60 y.o. female with PMH significant for ID T2DM, R elbow fusion with serial casting, and L ankle fracture S/P ORIF at [facility] (01/21/21) who presented to the ED for RUE cast problem and L ankle pain and redness. History was obtained from the patient and medical record. Patient reports getting her RUE cast changed in orthopedic clinic several days ago but noting that it feels too tight and is causing her intermittent tingling sensation in her fingers. No motor weakness or color/temperature changes. She called orthopedic surgery and was instructed to come to the ED for likely cast change. She also notes that she has an additional and more debilitating orthopedic problem which she would like to be evaluated for. She describes 1 week of increased pain, spreading erythema, swelling, and malodorous drainage from incision site of L lateral ankle wound from her recent ORIF of L ankle fracture performed 01/21 by orthopedic surgery at [facility]. She notes that she has also had intermittent chills but has not taken her temperature. Overall she has been very unhappy with her care at [facility] notes that they dismissed her concerns about an infection and suggested she was narcotic seeking. She would like to transfer all her orthopedic care to [place] for this reason. Denies any lightheadedness, nausea, vomiting, chest pain, SOB, fevers, or otherwise changes to her baseline health apart from the above. Hx: PMH, PSH, SH, and FH reviewed. ROS: A full 10 point review of systems was obtained and negative except for that included in the HPI. OBJECTIVE VS: BP 146/75 Pulse 95 Temp 36.2 ??C (97.1 ??F) Resp 18 Ht 157.5 cm (5' 2) Wt 83 kg (183 lb) SpO2 98% BMI 33.47 kg/m?? PE: General: This is a well-nourished, well-developed female who appears her stated age. She is alert and able to participate in evaluation. NAD. Skin: Color appropriate. No rashes or lesions appreciated. Head: Atraumatic and normocephalic. Neck: Symmetrical with midline trachea. Eyes: Lids and periorbital area without edema, erythema, or lesions. Sclera anicteric, conjunctiva without swelling, erythema, injection, or exudate. EOMs grossly intact. Ears: Hearing grossly intact to normal conversation. Auricles without masses, lesions, or swelling. Chest/pulmonary: SpO2 acceptable on RA. Respirations unlabored and regular. Chest wall symmetrical without deformity. No adventitious sounds appreciated on auscultation of anterior and posterior lungfields. Cardiovascular: Regular rate and rhythm. S1 and S2 without splitting. No S3, S4, murmurs, or rubs appreciated on ausculation. Distal pulses intact and symmetrical in upper and lower extremities. No LE edema. Musculoskeletal: RUE with circumferential fiberglass cast, NV intact with subjective finger paresthesias. No temperature/color change of fingers. L ankle with diffuse erythema, warmth to the touch, malodorous drainage from lateral surgical incision site. Posture without obvious abnormality. Musculature and extremities grossly without deformity, asymmetry, erythema, effusion, or swelling. No evidence of restricted ROM or gross instability. Neurological: Alert and oriented to person, place, time, and situation. Attention, concentration, language, and fund of knowledge are within expected range. Speech is fluent with normal content. No gross CN deficits, abnormal movements, or FNDs. Psychiatric: Patient cooperative with appropriate behavior, thought content, and affect. LABS: Reviewed and interpreted independently. Recent Results (from the past 72 hour(s)) Basic Metabolic Panel (non-fasting) Result Value Ref Range Glucose Lvl 315 (H) 65 - 199 mg/dL BUN 12 8 - 18 mg/dL Creatinine 1.00 0.70 - 1.20 mg/dL Sodium 135 135 - 145 mmol/L Potassium 4.1 3.5 - 5.0 mmol/L Chloride 102 98 - 107 mmol/L CO2 22 22 - 31 mmol/L Anion Gap 11 5 - 15 mmol/L Calcium 9.3 8.5 - 10.5 mg/dL Estimated GFR 62 >=60 mL/min/1.73 m?? Sedimentation rate Result Value Ref Range Sed Rate 58 (H) 2 - 39 mm/hr CRP, acute inflammation Result Value Ref Range CRP >300.0 (H) <=4.9 mg/L Hemogram Result Value Ref Range WBC 9.9 (H) 4.0 - 9.5 x10(3)/mcL RBC 4.77 4.00 - 5.21 x10(6)/mcL Hemoglobin 13.8 11.7 - 15.5 gm/dL Hematocrit 41.8 35.7 - 45.8 % MCV 87.6 82.6 - 94.4 fL MCH 28.9 27.1 - 32.0 pg MCHC 33.0 31.7 - 35.0 gm/dL Platelets 170 145 - 357 x10(3)/mcL RDWSD 41.8 37.0 - 46.0 fL RDWCV 12.9 11.5 - 14.1 % MPV 11.2 7.6 - 12.9 fL nRBC % Auto 0.0 % nRBC Abs Auto 0.000 0.000 - 0.000 x10(3)/mcL Differential, Automated Result Value Ref Range Neutrophils % 90.7 % Neutr Abs (ANC) 8.98 (H) 1 - 6 x10(3)/mcL Lymphocytes % 3.1 % Lymphocytes Abs 0.3 (L) 0.9 - 3.2 x10(3)/mcL Monocytes % 5.2 % Monocyte Abs 0.5 0.3 - 0.9 x10(3)/mcL Eosinophils % 0.2 % Eosinophils Abs 0.0 0.0 - 0.4 x10(3)/mcL Basophils % 0.5 % Basophils Abs 0.0 0.0 - 0.1 x10(3)/mcL Immature Gran % 0.30 % Chanda Gran Abs 0.03 0.00 - 0.04 x10(3)/mcL Gold Tube HOLD Result Value Ref Range Gold Hold Sample in lab. Green Tube HOLD Result Value Ref Range Green Hold Sample in lab. IMAGING: Reviewed and interpreted independently. CT Lower Extremity w Contrast Left Final Result Left lower extremity cellulitis extending from the distal tibia and fibula to the foot, with small abscess at the lateral malleolus. Thank you for letting us participate in the care of this patient. If you are a health care provider and have any questions regarding this report, please contact the number below. For patients who have questions please contact the health day care supervisor that requested your imaging first. Electronically signed by: Meli Gonzales MD, [facility] ([phone]), at 02/07/2021 6:17 PM XR Ankle Min 3 views Left (Generic) Final Result Apparent incision and drainage laterally adjacent to open reduction internal fixation of the distal fibula. Lucency about the I and D site. Hardware appears grossly unremarkable. There is mottled gas in the soft tissues and induration of the soft tissues. Plantar spurring. CT may be useful to better assess the soft tissues relative to the osseous structures and internal. Thank you for letting us participate in the care of this patient. If you are a health care provider and have any questions regarding this report, please contact the number below. For patients who have questions please contact the health day care supervisor that requested your imaging first. Electronically signed by: Anthony aCrrillo MD, [facility] ([phone]), at 02/07/2021 3:44 PM ASSESSMENT & PLAN MDM: Jesenia Méndez is a 60 y.o. female with PMH significant for ID T2DM, R elbow fusion with serial casting, and L ankle fracture S/P ORIF at [facility] (01/21/21) who presented to the ED for RUE cast problem and L ankle pain and redness. VS stable, patient non-toxic appearing, NV intact in RUE with subjective paresthesias and circumferential cast that appears tight. L ankle with erythema, warmth to the touch, and malodorous purulent drainage from incision site of recent ORIF. Labs notable for leukocytosis, elevated inflammatory markers. XR and CT of ankle revealing cellulitis and abscess overlying lateral mal. Orthopedic surgery consulted and replaced RUE circumferential cast uneventfully. Will admitthe patient for surgical wash out of L ankle either this evening or tomorrow AM. Request holding off on antibiotic while patient remains systemically stable. ASSESSMENT: 1. L ankle cellulitis/abscess 2. RUE cast change DISPO: Stable, admit to with orthopedic surgery consulting. Nuvia Wesley PA 02/07/211951 documented in this encounter Miscellaneous Notes * Plan of Care - Kelsie Herbert RN - 02/18/2021 6:42 PM EDT Jesenia is cleared for discharge home today with visiting RN, PT and OT after refusing [facility]. Pt given portable wound vac and instructed on use. Pt able to demonstrate changing out canister. Home IV abx to be administered and home infusion in to review this with Pt. Left leg cast applied today. Walker with right arm support also given to pt prior to D/C. All instructions, medications and scripts reviewed with pt and father. Pt able to verbalize understanding and acceptance. Pt sent to D/C in with transport. * Plan of Care - Elle Escalante RN - 02/18/2021 5:02 AM EDT OUTCOME EVALUATION NOTE: OUTCOME SUMMARY: Wound vac @ -[address] on LLE. Pain in LLE 10/10 overnight, prn Oxycodone 5 mg po given w/ no effect. notified, prn Oxycodone dose changed, 10 mg po given x 1 w/little effect. Patient states her pain got worse after the wound vac change and that the splint is on too tight. Talked w/MD and given permission to rewrap splint. Patient states her pain is much better. Denies any numbness or tingling to LLE or RUE. Able to move all digits and toes. RUE & LUE elevated on pillows throughout shift, NWB status maintained. Blood glucose managed per orders, supplemental insulin provided. Ambulating Ax1 w/ FWW stand pivot [place] [facility] MOVING FORWARD: Monitor VS, labs, I/O's Pain mgmt - premedicate for wound vac changes Wound vac therapy Glucose monitoring IV abx - 6 wk course NWB of RUE & LLE, PT &OT for D/C planning INDIVIDUALIZED FALL PREVENTION INTERVENTIONS: Patient-specific fall risk factors per assessment: [current deficits]: At risk to fall d/t IV's, NWB to RUE & LLE, pain, & medications. Assistance [level of assistance required for transfers and ambulation]: 1 Assist w/walker Supervision [direct monitoring required during toileting and ADLs]: 1 Assist Surveillance [continuous indirect monitoring]: Purposeful Hourly Rounding; Call light within reach;Bed in lowest position; Bed Alarm Patient-specific fall prevention interventions for sensory deficits provided, if applicable: N/A * Plan of Care - Sherwin Hermosillo RN - 02/17/2021 6:50 PM EDT OUTCOME EVALUATION NOTE: OUTCOME SUMMARY: VSS on RA. Wound vac @ -[address] on LLE, changed per ortho in AM. Pain in LLE 0-8/10 today, worse s/p wound vac change managed w/ PRN oxy x2 & scheduled tylenol. In afternoon, endorsing worsening pain & new tingling up LLE, able to wiggle toes but dusky, ortho paged, pt self loosened soft plaster brace & dali wrap upon nursing coming to assess, MD aware. RUE & LUE elevatedon pillows throughout shift, NWB status maintained. NPO in morning, changed to [facility] diet at lunch s/p wound vac. Blood glucose managed per orders, supplemental insulin provided. Ambulating Ax1 w/ FWWstand pivot. PLAN MOVING FORWARD: Monitor labs, vitals, I/Os Pain management - pre medicate for vac changes Wound vac therapy IV ABX therapy - 6 wk course Blood glucose management NWB of RUE & LLE, PT &OT for D/C planning INDIVIDUALIZED FALL PREVENTION INTERVENTIONS: Patient-specific fall risk factors per assessment: [current deficits]: High Fall Risk- NWB of LLE& RUE, wound vac, IV access, secondary diagnosis, casts in place, weakness, sedating medications Assistance [level of assistance required for transfers and ambulation]: Ax1 w/ FWW & wound vac Supervision [direct monitoring required during toileting and ADLs]: Hands on Surveillance [continuous indirect monitoring]: Purposeful hourly rounding, call correa within reach, Bed alarm set, room near unit station, masimo surveillance Patient-specific fall prevention interventions for sensory deficits provided, if applicable: [X] N/A CPG GOAL OUTCOME EVALUATION: * Consult Note - Corina Medrano MD - 02/17/2021 11:43 AM EDT Plastic Surgery Service Brief Consult Note Reason for Consult: L ankle wound HPI: 60 y.o.??female??with past medical history of diabetes, hypothyroidism, depression, psoriasis,chronic headaches, presenting with complaints of left ankle swelling, pain, erythema??and purulent drainage after having ORIF on 01/21/2021 at [facility]. CT of the ankle showed LLE cellulitis with small abscess at the lateral malleolus. She is s/p hardware removal and multiple washouts with ortho. Lab: Recent Labs 02/17/21 0410 02/16/21 0353 02/15/21 0035 WBC 8.9 9.6* 9.6* HGB 10.0* 9.8* 9.7* PLATELET 305 263 291 No results for input(s): PT, PTT, INR in the last 168 hours. Recent Labs 02/17/21 0410 02/16/21 0353 02/15/21 0035 NA 143 143 141 K 3.7 3.6 3.5 CL 109* 109* 108* CO2 27 26 23 BUN 11 10 9 CREATININE 0.82 0.79 0.84 GLUCOSE 187 222* 186 Recent Labs 02/08/21 0319 HA1C 7.9* Antibiotics: -Daptomycin Imaging/Studies: Results for orders placed or performed during the hospital encounter of 02/07/21 XR Ankle Min 3 views Left (Generic) (Exam End: 02/07/2021 3:33 PM) Impression Apparent incision and drainage laterally adjacent to open reduction internal fixation of the distal fibula. Lucency about the I and D site. Hardware appears grossly unremarkable. There is mottled gas in the soft tissues and induration of the soft tissues. Plantar spurring. CT may be useful to better assess the soft tissues relative to the osseous structures and internal. Thank you for letting us participate in the care of this patient. If you are a health care provider and have any questions regarding this report, please contact the number below. For patients who have questions please contact the health day care supervisor that requested your imaging first. Electronically signed by: Anthony Carrillo MD, [facility] ([phone]), at 02/07/2021 3:[address] Lower Extremity w Contrast Left (Exam End: 02/07/2021 5:51 PM) Impression Left lower extremity cellulitis extending from the distal tibia and fibula to the foot, with small abscess at the lateral malleolus. Thank you for letting us participate in the care of this patient. If you are a health care provider and have any questions regarding this report, please contact the number below. For patients who have questions please contact the health day care supervisor that requested your imaging first. Electronically signed by: Meli Gonzales MD, [facility] ([phone]), at 02/07/2021 6:17 PM XR Ankle Min 3 views Left (Generic) (Exam End: 02/13/2021 12:50 PM) Impression Status post removal of lateral fibula plate and screw fixation construct and transsyndesmotic screws. Thank you for letting us participate in the care of this patient. If you are a health care provider and have any questions regarding this report, please contact the number below. For patients who have questions please contact the health day care supervisor that requested your imaging first. Electronically signed by: Christian Leon MD, [facility] ([phone]), at 02/14/2021 2:58 AM XR PICC Placement Over 5 Years with Imaging Guidance (IV Team) (Exam End: 02/14/2021 9:20 AM) Impression Left-sided PICC with catheter tip projected at the cavoatrial junction. Thank you for letting us participate in the care of this patient. If you are a health care provider and have any questions regarding this report, please contact the number below. For patients who have questions please contact the health day care supervisor that requested your imaging first. Electronically signed by: BLAZE SALEEM MD, [facility] ([phone]), at 02/14/2021 9:[address] Angiogram Lower Extremity Left (Generic) (Exam End: 02/16/2021 4:00 PM) Impression 1. Interval removal of ORIF hardware from the distal left tibia and fibula. 2. Surrounding inflammation and overlying skin thickening without drainable fluid collection. 3. Nonvisualized distal peroneal arteries. Patent anterior/posterior tibial arteries, dorsalis pedis and plantar arteries. Thank you for letting us participate in the care of this patient. If you are a health care provider and have any questions regarding this report, please contact the number below. For patients who have questions please contact the health day care supervisor that requested your imaging first. Electronically signed by: David Unger MD, [facility] ([phone]), at 02/16/2021 4:46 PM Assessment: 60 y.o.??female??with L ankle wound s/p L ankle hardware removal and washouts with ortho for LLE cellulitis and abscess following ORIF on 01/21/2021 at [facility]. Recommendations: Plan for soft tissue coverage pending discussion with Dr. Franklin. Tentatively scheduling about two weeks from now. Corina Medrano MD 02/17/2021 11:50 AM Thank you for this consult. Please do not hesitate to page [phone] if you have any questions or concerns. [X] Consult service to continue to follow [ ] Consult service to sign off Associated attestation - Aydee Franklin MD - 02/19/2021 12:26 PM EDT I have seen and examined the patient, providing dupont components as outlined below. I have reviewed the resident???s above note; my evaluation of the patient is below: Pt seen and examined. Discussed injury with patient. Discussed possible surgical options, includinglocal flap vs free tissue transfer. Given location of injury and extent of defect will likely need free tissue transfer. Angiogram planned in anticipation. D/w pt, will need follow-up in ~1 week to re-discuss * Plan of Care - Juani Kang RN - 02/16/2021 11:35 PM EDT OUTCOME EVALUATION NOTE: OUTCOME SUMMARY: LLE NPWT in place, endorsed 5/10 pain, elevated at all times on pillow. PRN oxy x1 and scheduled tylenol w/ good effect, ice packs applied as well. Glycemic control as ordered. IV daptomycin as ordered. Sleeping between care. PLAN MOVING FORWARD: Daptomycin, pain management, glycemic control, OR 02/17?, d/c planning INDIVIDUALIZED FALL PREVENTION INTERVENTIONS: Patient-specific fall risk factors per assessment: [current deficits]: non weight bearing on RUE/LLE, hx of falls, unsteady gait, IV access Assistance [level of assistance required for transfers and ambulation]: SP to BSC Supervision [direct monitoring required during toileting and ADLs]: hands on Surveillance [continuous indirect monitoring]: masimo, bed alarm in use, room near unit station, hourly rounding, call correa in reach Patient-specific fall prevention interventions for sensory deficits provided, if applicable: glasses at bedside CPG GOAL OUTCOME EVALUATION: * Plan of Care - Cynthia Tadeo RN - 02/16/2021 2:53 PM EDT OUTCOME EVALUATION NOTE: OUTCOME SUMMARY: VSS, afebrile. Denies chest pain, SOB, nausea. A&Ox4. C/o LLE pain, administered oxycodone PRN according to MAR with good relief. Tylenol and gabapentin administered according Jadon. Wound vac in place at 125 mmHg with LLE elevated on pillows. FS QID, covered per OCT. Pt had CT scan of LLE today (results pending). Pt rested between nursing care. Will continue to monitor. PLAN MOVING FORWARD: -Monitor VS & labs -Pain management -Carb control diet -IV ABX -PT/OT following -Possible debridement and flap placement 02/17? INDIVIDUALIZED FALL PREVENTION INTERVENTIONS: Patient-specific fall risk factors per assessment: [current deficits]: IV, medications, generalizedweakness, unfamiliar environment, wound vac of LLE. Assistance [level of assistance required for transfers and ambulation]: Assist x1 (stand pivot to commode) Supervision [direct monitoring required during toileting and ADLs]: Hands on Surveillance [continuous indirect monitoring]: Masimo, call correa in reach, room near nursing station, bed alarm in use Patient-specific fall prevention interventions for sensory deficits provided, if applicable: N/A CPG GOAL OUTCOME EVALUATION: * Plan of Care - Cynthia Tadeo RN - 02/15/2021 5:50 PM EDT OUTCOME EVALUATION NOTE: OUTCOME SUMMARY: VSS, afebrile. Denies chest pain, SOB, nausea. C/o LLE pain, administered oxycodone PRN according to OCT with good relief. Tylenol administered according to OCT. Wound vac in place with LLE elevated on pillows. FS QID, covered per OCT. Pt had visitor at bedside today. Pt rested between nursing care. Will continue to monitor. PLAN MOVING FORWARD: -Monitor VS & labs -Pain management -Carb control diet -PT/OT following ?? INDIVIDUALIZED FALL PREVENTION INTERVENTIONS: ?? Patient-specific fall risk factors per assessment: [current deficits]: IV, medications, generalizedweakness, unfamiliar environment, wound vac of LLE. ?? Assistance [level of assistance required for transfers and ambulation]: Assist x1 (stand pivot to commode) ?? Supervision [direct monitoring required during toileting and ADLs]: Hands on ?? Surveillance [continuous indirect monitoring]: Masimo, call correa in reach, room near nursing station, bed alarm in use Patient-specific fall prevention interventions for sensory deficits provided, if applicable: N/A CPG GOAL OUTCOME EVALUATION: * Op Note - Elizabeth Keith MD - 02/14/2021 4:22 PM EDT [facility] Operative Note Patient Name: Jesenia Méndez : [id number] MR#: [id number] Case Date: 02/14/2021 Surgeon: Surgeon(s) and Role: * Sabrina Capellan MD - Primary * Elizabeth Keith MD - Resident Preoperative diagnosis: infected ankle wound Postoperative diagnosis: infected ankle wound Procedure(s) (LRB): DEBRIDEMENT SKIN, SUBCU, MUSCLE, BONE, LOWER EXTREMITY (WRVU 4.1) (Left) Findings: Left lateral ankle wound vac was removed, irrigated and debrided, and replaced with 1 white sponge and 1 black sponge. Anesthesia: General Estimated Blood Loss: 15 mL Specimens removed during surgery: None Drains: wound vac in place Surgical Closure: wound vac Disposition: awakened from anesthesia, extubated and taken to the recovery room in a stable condition, having suffered no apparent untoward event. Condition: doing well without problems (Please see the Surgical Encounter Summary for any Implant and Specimen details pertinent to this patient.) HPI/Surgical Indications: The patient is a pleasant, 60-year-old woman who presented to the emergency department on 02/08/2021with a purulent lateral ankle wound following ankle fracture fixation at an outside institution. ??She was taken to the operating room for irrigation debridement at that time, again on 02/10, 02/12/21,and returns to the operating room today for scheduled repeat irrigation debridement removal of hardware. ?? Procedure Description: The patient was correctly identified in the same day holding area, the proper operative site was marked and consent was confirmed by the team. The patient was wheeled to the operating room and placedin the supine position on the operating table where anesthesia was administered. All bony prominences were well padded. Preoperative antibiotics were given. A time-out was performed to confirm patient identity, planned surgery, and site according to the [facility] [place] Protocol. 1 black sponge and white what the sponge were removed from the wound VAC. The wound was then thoroughly prepped and draped with Betadine and DuraPrep. The wound over the lateral ankle was explored, and debrided with combination of rongeur, curette, down to healthy bleeding tissue at wound edges. Care was taken to preserve lateral fibular bone and minimal soft tissue envelope. No purulence was visible or expressed from the wound. No samples were obtained. A repeat wound VAC was then applied with1 white sponge and 1 black sponge. The wound measured 3 x 8 x 1 cm. Patient was placed in a posterior slab and U-splint. The patient was awoken from the anesthetic, transferred back to the hospital bed, and taken to postanesthesia care unit in stable condition. All sponge and needle counts were correct at the end of the case. There were no obvious intraoperative complications. Postoperative plan: Patient is nonweightbearing to the left lower extremity Wound VAC in place set -125 mmHg continuous suction. Patient will require definitive coverage likely through the plastic surgery team. Repeat irrigation debridement pended for this upcoming Tuesday. Antibiotics per infectious disease Associated attestation - Sabrina Capellan MD - 02/15/2021 5:05 PM EDT Attestation: Case Date: 02/14/2021 I was present and I participated during the entire procedure (does not need to include opening and closing). Sabrina Capellan MD 02/15/2021 * Plan of Care - Cynthia Tadeo RN - 02/14/2021 3:47 PM EDT OUTCOME EVALUATION NOTE: OUTCOME SUMMARY: VSS, afebrile. Denies chest pain, nausea, SOB. C/o 05/31 LLE pain, pt recently received oxycodone; administered tylenol according to MAR with fair effect. Wound vac in place on LLE, leg elevated on pillows. Pt had L SL PICC placement today, no complaints. Education given on CHG andinfection prevention with PICC. Vanco level obtained and sent to lab (see results). Pt had debridement today. Vanco administered according to MAR by RN in PACU. Sacral mepilex on and intact with no redness. Pt rested between nursing care. Will continue to monitor. PLAN MOVING FORWARD: -Monitor VS & labs -Pain management -Carb control diet -PT/OT following INDIVIDUALIZED FALL PREVENTION INTERVENTIONS: Patient-specific fall risk factors per assessment: [current deficits]: IV, medications, generalizedweakness, unfamiliar environment, wound vac of LLE. Assistance [level of assistance required for transfers and ambulation]: Assist x1 (stand pivot to commode) Supervision [direct monitoring required during toileting and ADLs]: Hands on Surveillance [continuous indirect monitoring]: Masimo, call correa in reach, room near nursing station, bed alarm in use. Patient-specific fall prevention interventions for sensory deficits provided, if applicable: N/A CPG GOAL OUTCOME EVALUATION: * Plan of Care - Sneha Chung RN - 02/14/2021 9:33 AM EDT Peripherally Inserted Central Catheter (PICC) Teaching Sheet Peripherally inserted central catheters (amiq-ab-riml) (PICC) are used when you need IV (intravenous) medicines and fluids. A catheter is a small flexible plastic tube. The catheter is put in througha vein under your skin. A vein is a tube inside your body that carries blood from the body to the heart. The catheter is usually put into a vein on the inside of your upper arm. Then it is threaded up this vein and ends in the blood vessel near your heart. The PICC catheter may be used for taking blood for laboratory tests. You may also get IV fluids andmedicines quickly and easily. Having the catheter may keep your arm from being stuck many times with a needle. The catheter will have 1-3 small tails (tubes) coming from your arm where the catheter was put in. Why do I need a PICC line or midline catheter? PICC lines are used for prison treatments. PICC lines may be used for up to a year. They are often put in to give you IV medicines at home. You may need a PICC catheter because caregivers cannot use smaller veins in your body. Smaller veins may be damaged, or they may have poor blood flow. Catheters are also used in case of emergency when you would need medicines or fluids very quickly. The following are medicines and treatments you may get when you have a PICC line. ?? Antibiotics. These are medicines to prevent infection. ?? Frequent blood sample collection. ?? IV medicines that would make your smaller veins sore or damaged. ?? Receiving IV fluids for a long period of time. ?? Pain medicine. ?? Total Parenteral Nutrition: This is also called TPN. TPN is a special liquid food that goes directly into your veins. ?? Blood ?? Chemotherapy (Medicine for cancer) What are the benefits of having a PICC line put in? Having a PICC line may keep your arm from being stuck many times with a needle to draw blood or start an IV (intravenous catheter) . Through a PICC catheter, you may have blood taken for tests. You may also get IV fluids and medicines quickly and easily. Small veins can be damaged or irritated by certain drugs or nutritional solutions. A PICC line helps to decrease vein irritation from antibiotics, IV pain drugs, or IV cancer drugs. A PICC line can be left in place when you go home. If you go home with a PICC line in place, home care can be set up via the nurse Mold Filling Operator to help you. What are possible complications of having a PICC line put in? Some possible complications are: bruising, swelling, or infection in the arm with the PICC line mal-positioned catheter (catheter tip in wrong place) occlusion (blocked catheter) mechanical phlebitis (vein irritation) and thrombosis (clot) Your doctor is the person you should talk to if you have questions about what would happen if you do not choose to have a PICC line put in. Your doctor can talk to you about other choices you may have. What should I expect when it is put in? A written consent that gives your ok to have it put in needs to be signed after you understand thatyou are going to have a PICC put in, and all your questions about the procedure have been answered to your satisfaction. This is a safety feature that the hospital practices before doing procedures. An experienced nurse who has been through special training and education will be putting this catheter in. The procedure is done in a specially equipped room in Interventional Radiology on the third floor. The PICC nurse will first talk to you about any questions that you may have. The PICC nurse will explain to you what is going to be done before starting. Once you arrive in the procedure room in Interventional Radiology, the PICC nurse will then set up for the procedure. She will unwrap the sterile kit and open the needed supplies. A gown and mask andgloves will be worn while putting it in. An ultrasound machine will be used to help guide the catheter in the right place. This machine uses a handle with sound waves to find the vein. The area on your arm where the catheter will be put in is then numbed with a medicine put under your skin with a tiny needle. The nurse will then put in the catheter using fluoroscopy (a type of x-ray) as a guide. Once the catheter is in your vein, it will be threaded up your arm to the area beforeyour heart. While it is being threaded, you may be asked to turn your head. When the catheter is in, the nurse will place a small dressing on the site along with a little funk which will help keep the catheter in place. After the procedure is done, a radiologist (doctor in x-ray department) will look at your x-ray to make sure that the end of the catheter is in proper position to give your fluids and/or medications. What should I expect in the care of my PICC? A dressing that is specially made to prevent infections will be put on. After this, the dressing will only be changed once a week unless it needs it sooner. If you go home with the catheter in, you may take a shower as long as you keep the site dry. You can do this by wearing a specially fitted PICC protector that will be provided to you before dischargefrom the hospital. The dressing at the site must be kept clean and dry. It is important that you watch for signs of infection at the site. Your healthcare provider should be notified if these occur: Redness Swelling Pus Pain at the site Other reasons to notify your healthcare provider are: Catheter becomes partially or totally removed Unable to infuse medication/fluid Unable to draw back blood from the catheter. This may be an early sign that a clot is forming on the end of the catheter. If this occurs, a medicine called Cathflo may be used to dissolve this clot. Ask the PICC nurse or your doctor, any questions you may have so you feel secure in consenting to having a PICC line. References: Vascular Access Device Selection, Insertion, and Management, [employer] 05/26. A Review of the Efficacy, Safety, Use, and Administration of Cathflo, [employer] 2005 * Plan of Care - Liane Gaming RN - 02/14/2021 4:22 AM EDT OUTCOME EVALUATION NOTE: OUTCOME SUMMARY: Jesenia is here for LLE cellulitis with abscess. Alert and oriented x4, vitals signs stable. Reports 05/01 LLE pain, prn oxycodone administered, wound vac in place, extremity DALI wrapped and elevated. RUE in cast, no complaints of discomfort. Patient sleeping in between nursing care. PLAN MOVING FORWARD: Monitor labs and vitals NPO after midnight PT/OT INDIVIDUALIZED FALL PREVENTION INTERVENTIONS: Patient-specific fall risk factors per assessment: [current deficits]: non- weight bearing - LLE, RUE, semi-private room Assistance [level of assistance required for transfers and ambulation]: Ax1 with walker Supervision [direct monitoring required during toileting and ADLs]: Eyes on, hands on patient Surveillance [continuous indirect monitoring]: masimo, bed alarm, purposeful rounding Patient-specific fall prevention interventions for sensory deficits provided, if applicable: [X] N/A CPG GOAL OUTCOME EVALUATION: * Plan of Care - Liane Granger RN - 02/13/2021 6:27 PM EDT OUTCOME EVALUATION NOTE: OUTCOME SUMMARY: Pt had a good day. Continue IV antibiotics per orders. LLE dressing remained C/D/I with woundvac. Pt went to xray for leg imaging, see results review. Blood sugars monitored and covered per orders. Father at bedside. No other issues or concerns at this time. PLAN MOVING FORWARD: Pain management Continue IV antibiotics Monitor and cover blood sugars per order Encourage OOB activity PICC placement NPO at midnight INDIVIDUALIZED FALL PREVENTION INTERVENTIONS: Patient-specific fall risk factors per assessment: [current deficits]: High fall risk. NWB RUE and LLE. Pain. Wound vac. Intermittent IV medications Assistance [level of assistance required for transfers and ambulation]: x1 assist Supervision [direct monitoring required during toileting and ADLs]: eyes on; hands on Surveillance [continuous indirect monitoring]: Purposeful rounding. Call correa in reach. Patient-specific fall prevention interventions for sensory deficits provided, if applicable: [X] N/A CPG GOAL OUTCOME EVALUATION: * Plan of Care - Juani Kang RN - 02/13/2021 2:54 AM EDT OUTCOME EVALUATION NOTE: OUTCOME SUMMARY: LLE NPWT in place, endorsed 5/10 pain, elevated at all times on pillow. PRN oxy x1 and scheduled tylenol w/ good effect, ice packs applied as well. RUE long cast has two cuts in it per ortho, +CSM. Glycemic control as ordered. IV vanc as ordered. Sleeping between care. PLAN MOVING FORWARD: Vanc Q12, pain management, glycemic control, PICC placement today?, d/c planning INDIVIDUALIZED FALL PREVENTION INTERVENTIONS: Patient-specific fall risk factors per assessment: [current deficits]: non weight bearing on RUE/LLE, hx of falls, unsteady gait, IV access Assistance [level of assistance required for transfers and ambulation]: SP to BSC Supervision [direct monitoring required during toileting and ADLs]: hands on Surveillance [continuous indirect monitoring]: masimo, bed alarm in use, room near unit station, hourly rounding, call correa in reach Patient-specific fall prevention interventions for sensory deficits provided, if applicable: glasses at bedside CPG GOAL OUTCOME EVALUATION: * Brief Op Note - Toño Odonnell MD - 02/12/2021 5:53 PM EDT [facility] Operative Note Patient Name: Jesenia Méndez : [id number] MR#: [id number] Case Date: 02/12/2021 Surgeon: Surgeon(s) and Role: * Sabrina Capellan MD - Primary * Blas, Toño E., MD - Resident Preoperative diagnosis: left ankle postop wound Postoperative diagnosis: * No post-op diagnosis entered * Procedure(s) (LRB): DEBRIDEMENT SKIN AND SUBCU, LOWER EXTREMITY (WRVU 1.01) (Left) MODIFIER WOUND VAC (Left) Anesthesia: Regional Nerve Block Findings: left ankle exposed hardware without purulence Complications: none Estimated Blood Loss: * No values recorded between 02/12/2021 4:55 PM and 02/12/2021 5:53 PM * * No values recorded between 02/12/2021 4:55 PM and 02/12/2021 5:53 PM * Specimens removed during surgery: * No orders in the log * Fluids: Intraprocedure Crystalloid Total Intake Lactated Ringers 400.00 mL Total Intake 400 mL PRBCs: none (See Anesthesia Record/Report for Other Blood Products) Urine Output: (no urine output recorded) Drains: wound vac (1 black sponge) Disposition: awakened from anesthesia, extubated and taken to the recovery room in a stable condition, having suffered no apparent untoward event. Condition: doing well without problems (Please see the Surgical Encounter Summary for any Implant and Specimen details pertinent to this patient.) Infection Bundle used? No * Plan of Care - Liane Granger RN - 02/12/2021 5:15 PM EDT OUTCOME EVALUATION NOTE: OUTCOME SUMMARY: Pt quiet in room throughout the day. PRN pain meds given x1 with good effect. Pt stand pivot to commode with 1 assist. Blood sugars monitored and covered per orders. Continue IV antibiotics per OCT. Pt went to OR around 1630, see note. No other issues or concerns at this time. PLAN MOVING FORWARD: Pain management Monitor skin integrity PT/OT D/c planning INDIVIDUALIZED FALL PREVENTION INTERVENTIONS: Patient-specific fall risk factors per assessment: [current deficits]: High fall risk. Hx of falls.Non-weight bearing RUE and toe touch LLE. Pain medications Assistance [level of assistance required for transfers and ambulation]: x1 assist Supervision [direct monitoring required during toileting and ADLs]: Eyes on; hands on Surveillance [continuous indirect monitoring]: Purposeful rounding. Bed alarm. Call correa in reach. Patient-specific fall prevention interventions for sensory deficits provided, if applicable: [X] N/A CPG GOAL OUTCOME EVALUATION: * Op Note - Toño Odonnell MD - 02/12/2021 4:55 PM EDT [facility] Operative Note Patient Name: Jesenia Méndez : [id number] MR#: [id number] Case Date: 02/12/2021 Surgeon: Surgeon(s) and Role: * Sabrina Capellan MD - Primary Preoperative diagnosis: left ankle postop wound Postoperative diagnosis: * No post-op diagnosis entered * Procedure(s) (LRB): DEBRIDEMENT SKIN AND SUBCU, LOWER EXTREMITY (WRVU 1.01) (Left) MODIFIER WOUND VAC (Left) Findings: left ankle exposed hardware without purulence Anesthesia: Regional Nerve Block Estimated Blood Loss: * No values recorded between 02/12/2021 4:55 PM and 02/12/2021 5:55 PM * Specimens removed during surgery: None Drains: wound vac (1 black sponge) Surgical Closure: Other Than Primary Closure - deep and superficial layers are left completely openduring original surgery Disposition: awakened from anesthesia, extubated and taken to the recovery room in a stable condition, having suffered no apparent untoward event. Condition: doing well without problems (Please see the Surgical Encounter Summary for any Implant and Specimen details pertinent to this patient.) HPI/Surgical Indications: The patient is a pleasant, 60-year-old woman who presented to the emergency department on 02/08/2021 with a purulent lateral ankle wound following ankle fracture fixation at an outside institution. She was taken to the operating room for irrigation debridement at that time,again on 02/10, and returns to the operating room today for scheduled repeat irrigation debridement removal of hardware. Procedure Description: The patient was identified preoperatively on the inpatient floor. The left lower extremity was marked. The patient was taken to the operating room placed supine on the operating room table with all bony prominences padded. The left hip was bumped and the left leg was placed on a bone foam. The left leg was prepped and draped in a normal, sterile fashion after removal of 1 black sponge and 1 white sponge from the wound VAC. We held a preoperative timeout for safe surgery and preoperative antibiotics were given. ?? We began by exploring the wound over the lateral ankle. The fibular hardware was readily visible within the wound, both the lateral and posterior plates were involved with the wound. All hardware (9 screws, 2 plates) was removed without incident. No purulence was visible or expressible within the wound. Samples were obtained and sent for culture. Wound vac was then applied with one black sponge. The wound measured [id number]. The patient was then placed in a posterior slab + U splint, reversed from anesthesia, and brought to the PACU in stable condition. Infection Bundle used? No Associated attestation - Sabrina Capellan MD - 02/13/2021 9:27 AM EDT Attestation: Case Date: 02/12/2021 I was present and I participated during the entire procedure (does not need to include opening and closing). Sabrina Capellan MD 02/13/2021 * Consult Note - Adalberto Charles MD - 02/12/2021 12:57 PM EDT The ID service was asked by Dr. Mary for aid in w/u and management of surgical site infection in [place] with ORIF left ankle now s/p I&D. She underwent ORIF left ankle at [facility] on 01/21/21 a day after she fell while walking. She subsequently had persistent discomfort and was admitted on with drainage from the wound. Prior to admission she had felt occasionally chilled, but without fever, chest pain, cough shortness of breath, headache, abdominal pain, nausea or diarrhea. At that time she had a fever to 38.3 C, otherwise unremarkable PE, labs notable for WBC 9.9 and ESR [address] on 02/07 revealed a small abscess adjacent to the lateral malleolus. She was taken to the OR for a washout on 02/08 and 02/10, with VAC placed. She has done well since admission, with resolution of fevers and no new problems, including no nausea, diarrhea, abdominal pain, shortness of breath, cough and chest pain.. Three operative cultures were obtained on 02/08 and two on 02/10, all of which had GPCs on Gram stainand five of five grew MSSA and 4 of 5 grew Enterococcus faecalis (amp sensitive). She was initially treated with cefazolin, but on 02/09 was switched to vancomycin on which she remains, now at a dose of 1 gm q12h after a trough of 12.9 on 02/10. Repeat I&D is scheduled for today, and final plans for possible hardware removal have not yet been made. PMHx as below, confirmed by me. The right ulna fx was one month ago, and she remains in a cast. Patient Active Problem List Diagnosis Code ??? [...] wound dehiscence, 02/08/21 (Dr Quiñones) and 02/10/21 (Abdirahman) L02.419 ??? Closed fracture of left ankle with routine healing S82.892D She has received a dose of Agapito and Agapito COVID-19 vaccine. Current abx: vancomycin 1 gm q12h. The only abx allergy is a nonspecific reaction to erythromycin. She lives with several family members, including her father. Currently not working. Afebrile VSS Looks well No rash RRR no m/r/g CTA Abdomen benign Left ankle with VAC in place laterally and without any evident erythema or edema. Pertinent labs, radiology and microbiology as above. A/P Jesenia is a 60 year old woman who has developed a surgical site infection a couple of weeks after ORIF of left ankle for a fracture suffered after a standing fall. Microbiology is now well defined as both MSSA and ampicillin sensitive E. faecalis, so in the short term I would agree with continuing on vancomycin. The less straightforward question is of duration of therapy, which will be driven by likelihood of hardware involvement and associated osteomyelitis, which I assume is likely but which we will better define after discussion with the surgical service. If we do need to treat for OM it will be with a minimum of 6 weeks and likely with parenteral therapy (whether vancomycin or daptomycin); and with end of treatment decision about the potential benefit of prolonged oral therapy, especially if hardware is left in place. I forwarded my recommendations directly to Dr. Mary. I spent 60 minutes dedicated to the care of the patient * Plan of Care - Juani Kang RN - 02/12/2021 2:35 AM EDT OUTCOME EVALUATION NOTE: OUTCOME SUMMARY: LLE NPWT in place, endorsed 8/10 pain, redness seen on carrillo, elevated at all times on pillow. PRN oxy x2 and scheduled tylenol w/ good effect, ice packs applied as well. RUE long cast has two cuts init per ortho, +CSM. Tachy in low 100s w/ movement, hypertensive in 170s. Glycemic control as ordered. IV vanc as ordered. NPO since 0000. Sleeping between care. PLAN MOVING FORWARD: OR Today per ortho note for I&D, Vanc Q12, pain management, glycemic control INDIVIDUALIZED FALL PREVENTION INTERVENTIONS: Patient-specific fall risk factors per assessment: [current deficits]: non weight bearing on RUE/LLE, hx of falls, unsteady gait, IV access Assistance [level of assistance required for transfers and ambulation]: SP to BSC Supervision [direct monitoring required during toileting and ADLs]: hands on Surveillance [continuous indirect monitoring]: masimo, bed alarm in use, room near unit station, hourly rounding, call correa in reach Patient-specific fall prevention interventions for sensory deficits provided, if applicable: glasses at bedside CPG GOAL OUTCOME EVALUATION: * Plan of Care - Hoa Woodson RN - 02/11/2021 2:26 PM EDT OUTCOME EVALUATION NOTE: OUTCOME SUMMARY: Patient is here with LLE abcess/cellulitis. Ankle pain managed with scheduled tylenol. Meal associated insulin added to better manage blood sugars, >240x1 this shift. Wound vac in place with serosanguinous drainage, c/d/I. IV vanc continued. PLAN MOVING FORWARD: Monitor labs/vs Manage blood sugars I&D tomorrow 02/12 Pain management INDIVIDUALIZED FALL PREVENTION INTERVENTIONS Patient-specific fall risk factors per assessment: [current deficits]: high fall risk- cast, LLE wound vac/wound, weakness Assistance [level of assistance required for transfers and ambulation]: Ax1/SBA Supervision [direct monitoring required during toileting and ADLs]: within arms reach/hands on Surveillance [continuous indirect monitoring]: purposeful rounding, masimo, bed alarm, room near nurse's station, call correa within reach Patient-specific fall prevention interventions for sensory deficits provided, if applicable: [X] N/A CPG GOAL OUTCOME EVALUATION: * Plan of Care - Charlotte Dc RN - 02/10/2021 1:36 PM EDT OUTCOME SUMMARY: ?? Patient A+Ox4, VSS. Went to OR this AM for debridement of LLE. LLE with wound vac to -125 suction. Complaints of 15/10 pain on LLE ankle following debridement - scheduled Tylenol and PRN oxy given with good effect. RUE extremity cast in place. No reports of numbness/tingling, chest pain, SOB. Resting between care. ? PLAN MOVING FORWARD: ?? Monitor vitals Pain management IV Vanco Q12 Glycemic control PT/OT ? INDIVIDUALIZED FALL PREVENTION INTERVENTIONS: ?? Patient-specific fall risk factors per assessment: [current deficits]: High fall risk - Non weight bearing on RUE&LLE, IV tubing, wound vac ?? Assistance [level of assistance required for transfers and ambulation]: Stand pivot to bedside commode ?? Supervision [direct monitoring required during toileting and ADLs]: Hands on ?? Surveillance [continuous indirect monitoring]: Purposeful hourly rounding, Masimo, bed alarm on, call correa in reach ?? Patient-specific fall prevention interventions for sensory deficits provided, if applicable: [X] N/A ? CPG GOAL OUTCOME EVALUATION: ?? * Op Note - Seth Yarbrough MD - 02/10/2021 10:02 AM EDT [facility] Operative Note Patient Name: Jesenia Méndez : [id number] MR#: [id number] Case Date: 02/10/2021 Surgeon: Surgeon(s) and Role: * Jacobo De La Cruz MD - Primary * Seth Yarbrough MD - Resident Preoperative diagnosis: Left ankle infection Postoperative diagnosis: Left ankle infection Procedure: 1) Debridement Skin, subq, muscle, bone - [id number] Findings: Gross purulence under pressure distal to fibula. Purulence Anesthesia: General Estimated Blood Loss: 10 cc Specimens removed during surgery: * No orders in the log * Cultures x2 Drains: wound vac, 1 black sponge and 1 white sponge Surgical Closure: Other Than Primary Closure - deep and superficial layers are left completely openduring original surgery Disposition: awakened from anesthesia, extubated and taken to the recovery room in a stable condition, having suffered no apparent untoward event. Condition: doing well without problems (Please see the Surgical Encounter Summary for any Implant and Specimen details pertinent to this patient.) HPI/Surgical Indications: The patient is a pleasant, 60-year-old woman who presents to the emergency department on 02/08/2021 with a purulent lateral ankle wound following ankle fracture fixation at an outside institution. She was taken to the operating room for irrigation debridement at that time, and returns to the operating room today for scheduled repeat irrigation debridement with possible closure. Procedure Description: The patient was identified preoperatively on the inpatient floor. The left lower extremity was marked. The patient was taken to the operating room placed supine on the operating room table with all bony prominences padded. The left hip was bumped and the left leg was placed on a bone foam. The left leg was prepped and draped in a normal, sterile fashion after removal of 1 black sponge and 1 white sponge from the wound VAC. We held a preoperative timeout for safe surgery and preoperative antibiotics were given. We began by exploring the wound over the lateral ankle. The fibular hardware was readily visible within the wound, both the lateral and posterior plates were involved with the wound. Distal to the fibula, we were able to encounter purulence under pressure, and decompressed this fluid collection using a curette. We also were able to express purulence proximally and anterior to the plates, and wereable to explore this with a curette and decompressed it fully. We took two cultures from the visible purulence. We performed an excisional debridement as follows: Orthopaedic Surgical Debridement: Type of debridement: excision Tissues debrided: bone, fascia, subcutaneous and wound Amount of skin debrided: 10 cm^2 Amount of subcutaneous tissue debrided: 10 cm^3 Size of wound: 8 cm (length) x 3 cm (width) x 1 cm (depth) Appearance of wound: purulence, slough Instruments used to perform debridement: curette, 15 blade (specify rongeur, scissors, # scalpel) Excised tissue characteristics: necrotic (specify necrotic, gangrenous, infected, slough) The extent of the debridement to bleeding tissue We used a 15 blade to excise the nonviable appearing skin wound edges. After finishing our debridement, we irrigated the wound using 6 L of normal saline. We were unable to close the wound, so a fresh wound VAC was placed using 1 white sponge and one black sponge. The patient's anesthesia was reversed and she was taken to the postoperative care unit. Postoperative plan: TDWB LLE Repeat washout /tuesday Infection Bundle used? No Associated attestation - Jacobo De La Cruz MD - 02/10/2021 7:07 PM EDT Attestation: Case Date: 02/10/2021 I was present and I participated during the entire procedure (does not need to include opening and closing). Jacobo De La Cruz MD 02/10/2021 * Plan of Care - Charlotte Dc RN - 02/09/2021 2:29 PM EDT OUTCOME EVALUATION NOTE: OUTCOME SUMMARY: Patient A+Ox4, VSS. Complaints of 7/10 pain in L ankle - scheduled Tylenol given with good effect. LLE DALI wrapped with wound vac to -125 suction. RUE extremity cast in place. No reports of numbness/tingling, chest pain, SOB. Resting comfortably between care. PLAN MOVING FORWARD: Monitor vitals Pain management IV Vanco Q12 Glycemic control PT/OT INDIVIDUALIZED FALL PREVENTION INTERVENTIONS: Patient-specific fall risk factors per assessment: [current deficits]: High fall risk - Non weight bearing on RUE&LLE, IV tubing, wound vac Assistance [level of assistance required for transfers and ambulation]: Stand pivot to bedside commode Supervision [direct monitoring required during toileting and ADLs]: Hands on Surveillance [continuous indirect monitoring]: Purposeful hourly rounding, Masimo, bed alarm on, call correa in reach Patient-specific fall prevention interventions for sensory deficits provided, if applicable: [X] N/A CPG GOAL OUTCOME EVALUATION: * Initial Assessments - Delfina Marr, OT - 02/09/2021 10:25 AM EDT Occupational Therapy Evaluation Patient profile: Jesenia Méndez is a 60 y.o. female with PMH significant for ID T2DM, R elbow fusion with serial casting, and L ankle fracture S/P ORIF at [facility] (01/21/21)??who presented to the ED for??RUE cast problem and L ankle pain and redness. OR for ankle I and D, wound vac placement performed by Dr. Quiñones on 02/08. Plan to return to the OR 02/10 for I&D and possible closure. History reviewed. No pertinent past medical history. Past Surgical History: Procedure Laterality Date ??? PRO ALVEOLOPLASTY W EXTRACTIONS, 4 OR MORE TEETH, PER QUADRANT N/A 09/11/2019 ALVEOPLASTY,IN CONJUNCTION WITH EXTRACTIONS,PER QUADRANT,ENT (WRVU 4.06) performed by Wesley Jacobo MD at [facility] ? ? PRO DEBRIDEMENT SUBCUTANEOUS TISSUE 20 SQCM/< Left 02/08/2021 DEBRIDEMENT SKIN AND SUBCU, LOWER EXTREMITY (WRVU 1.01) performed by Henrry Quiñones MD at [facility] ??? PRO FUSION/GRAFT OF ELBOW JOINT Right 2017 ARTHRODESIS, ELBOW JOINT WITH AUTOGENOUS GRAFT (WRVU 14.32) performed by Christopher Correa MD at [facility] OR ??? PRO REMOVAL DEEP IMPLANT Right 2017 REMOVAL OF IMPLANT, DEEP, ELBOW (WRVU 5.96) performed by Christopher Correa MD at [facility] OR ??? PRO REMOVAL ERUPTED TOOTH WITH ELEVATION OF MUCOPERIOSTEAL FLAP Bilateral 09/11/2019 SURGICAL EXTRACTIONS REQUIRING ELEVATION OF MUCOPERIOSTEAL FLAP AND REMOVAL OF BONE OR SECTION OF TOOTH (WRVU 1.09) performed by Wesley Jacobo MD at [facility] Social History: Patient lives with her and dtr-in-law in a single level house with a ramped entrance. She has a walk in shower with both grab bars and shower chair, regular toilet, and sleeps in a flat bed. DME: w/c and commode Baseline ADL/Mobility: Prior to her R elbow fusion & L ankle fx pt endorsed I with all ADLs, mobility and IADLs. Prior to this admission, she requires A for a stand pivot transfer across all surfaces, A with toileting, I with sponge bathing after set up, and A dressing. Her and DIL manage all IADLs and transportation. Additionally, once set up in her w/c, she needs SBA for w/c mgmt. Precautions/Special Considerations: Fal risk, wound vac to L foot, NWB RUE in bivalve cast, NWB LLE Subjective: They gave me a shower cap this morning and it feels so nice to have my hair washed Objective: Seen today for OT evaluation. Cognitive Status/Behavior: ?? Behavior / Mood: alert and cooperative ?? Alert and oriented to: person, place, time and situation ?? Follows commands: multi step and 100% of the time ?? Attention: WFL ?? Safety awareness: WFL, fully aware of deficits and good safety precautions Vision & Perception: ?? 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 Communication: WFL Range of motion, strength, coordination: Hand dominance: right L UE WLF for both ROM/Strength - RUE NWB in bivalve cast LE limitations: NWB LLE with wound vac Sensation: Intact Activities of Daily Living: Self-feeding: I with set up and increased time d/t non dominant hand Grooming: Min A for brushing hair with use of de-tangler while sitting in recliner Dressing: fresh gown upon approach Bathing: Pt reported she already bathed with her RN prior to the session - anticipate Mod A Toileting: Min A- Mod A for all aspects of toileting (Min A transfer, and Mod A for posterior asael-hygiene and clothing mgmt) with use of the bedside commode Functional Mobility: Supine to sit: Not assessed - sitting on commode upon approach Sit to stand: Min with stand pivot transfer Ambulation: Pt able to shuffle R foot during transfer to maintain balance - verbal cues for L hand placement onto arm rest Stand to sit: Min A to safety reach and reposition self in chair in order to maintain WB restrictions Balance: Sitting balance: Good Standing balance:Fair with min A Vitals: VSS throughout on RA Pain: No reports of pain/discomfort noted throughout the session Skin: Wound vac suction intact Education: patient have been educated on Role of occupational therapy/rehabilitation, Transfers, ADL, Positioning, Safety, Precautions/Protocol, Brace Management, Functional Mobility, Activity pacing/ Energy conservation, Balance, Recommendations and Discharge planning and verbalizes and demonstrates understanding. Patient status, treatment, and mobility recommendations discussed with nursing. Assessment: Pt has been seen for occupational therapy evaluation. Jesenia Méndez presents with the following performance skill deficits and client factors: increased pain, decreased activity tolerance, decreased flexibility/ROM, decreased strength, decreased sitting/standing balance, deconditioning, precautions/bracing, compromised mobility status and skin integrity. These performance deficits have led to activity limitations and participation restrictions in the following areas of occupation: dressing, bathing, grooming, toileting, self-feeding and transfers/mobility. Pt on the commode upon approach and agreeable to OT evaluation. Pt able to demonstrate her understanding of her WB restrictions throughout the session as evidence by her ability to safely perform her BADLs and functional transfers with varying amounts of assistance. With that said, pt would benefit from further inpatient OT interventions to address performance deficits and maximize participation and independence with occupations of daily living. She is currently scheduled for repeat I&D 02/10 with possible closure on her LLE. Recommendation upon d/c is between inpatient rehab vs home with PATIENT SERVICES CLERK & 14/03 support/assistance - pending pt progress during her inpatient hospitalization. Equipment needs at discharge: TBD Anticipated Discharge Disposition (OT): inpatient rehabilitation facility (vs home with PATIENT SERVICES CLERK & /7 support/assistance ) Other Recommendations: ?? Utilize upright chair position using bed features or transfer to recliner chair as appropriate with 1-2A, ambulate as tolerated ?? Encourage participation in ADL's by providing set up A on tray table and physical assist only asneeded Other Recommendations: No other consults recommended at this time Goals: To be achieved by 02/22/21. Patient will dress lower body with SBA with adaptive equipment prn. Patient will perform stand pivot transfer to bedside commode with SBA while maintaining WB restrictions Patient will perform all aspects of toileting with Min A and use of AE PRN Patient will demonstrate energy conservation principals with all ADLs indep. Patient will demonstrate WB precautions independently with all ADLs/mobility Patient will perform 2 grooming tasks of choice with S and set up while sitting EOB Plan: OT: Therapy Frequency (OT): 2-4 times/wk Planned OT interventions: Role of occupational therapy/rehabilitation, Transfers, Assistive device/technique, ADL, Positioning, Safety, Precautions/Protocol, Brace Management, Functional Mobility, Activity pacing/Energy conservation, Home Management, Balance, Recommendations and Discharge planning. Total Minutes, Occupational Therapy: 2016 OT Evaluation Code Rationale: ?? Diagnosis & Pertinent Co-Morbidities affecting Plan of Care: see PMHx ?? Occupational Profile & Client History: Brief Expanded Extensive x ?? Assessment of Occupational Performance: 1-3 performance deficits 3-5 performance deficits 5 + performance deficits x ?? Clinical Decision Making: Low Moderate High x Clinical decision making of moderate complexity using standardized patient assessment instrument and measurable assessment of functional outcome. Pager: [phone] Delfina Marr, OTR/L 02/09/2021 Occupational Therapy Rehabilitation Department * Plan of Care - Juani Kang RN - 02/09/2021 3:36 AM EDT OUTCOME EVALUATION NOTE: OUTCOME SUMMARY: LLE DALI wrapped, NPWT in place, endorsed 4/10 pain, redness seen on carrillo, elevated at all times on pillow. Refused any interventions for pain. RUE long cast has two cuts in it per ortho, +CSM. Tachy in low 100s. Glycemic control as ordered. IV vanc started. Sleeping between care. PLAN MOVING FORWARD: OR Tuesday per ortho note for I&D, Vanc Q12, pain management, glycemic control INDIVIDUALIZED FALL PREVENTION INTERVENTIONS: Patient-specific fall risk factors per assessment: [current deficits]: non weight bearing on RUE/LLE, hx of falls, unsteady gait, IV access Assistance [level of assistance required for transfers and ambulation]: SP to BSC Supervision [direct monitoring required during toileting and ADLs]: hands on Surveillance [continuous indirect monitoring]: masimo, bed alarm in use, room near unit station, hourly rounding, call correa in reach Patient-specific fall prevention interventions for sensory deficits provided, if applicable: glasses at bedside CPG GOAL OUTCOME EVALUATION: * Consult Note - Yani Cheng RP - 02/08/2021 11:15 PM EDT Clinical Pharmacist Note - NicholasFD Jesenia Méndez [id number] Jesenia Méndez is a 60 y.o. female who is starting antibiotic therapy which includes intravenous vancomycin. Based on a review of the patient???s chart and/or conversation with the patient???s providers vancomycin is being used for empiric coverage of prosthetic joint infection with a targeted goal of 15 - 20 mcg/mL. The following Pharmacokinetic data has been evaluated: Wt Readings from Last 1 Encounters: 02/07/21 83 kg (183 lb) Ht Readings from Last 1 Encounters: 02/07/21 157.5 cm (5' 2) Labs: Creatinine clearance: Creatinine (mg/dL) Date Value 02/08/2021 0.96 Dosing recommendations: ??? Patient with infected prosthetic hardware. Will load with vancomycin 2000 mg IV x1 and continuevancomycin 750 mg IV q 12 hours. Trough prior to 4th dose 02/10 @1130. We will continue to monitor the patient as long as she remains on vancomycin therapy. Thank you forthis consult and please page the care area pharmacist with any questions you may have. Alternately,during off-hours (9p-7a) you may call [phone] to contact a pharmacist. Yani Cheng RPH * Plan of Care - Kvng Santamaria RN - 02/08/2021 3:27 PM EDT OUTCOME EVALUATION NOTE: OUTCOME SUMMARY: Pt alert, oriented x4, and pleasant. OR in AM, returned without issue w/ new wound vac to L ankle- see doc flow. Pain well controlled with rest and scheduled meds. No acute issues. PLAN MOVING FORWARD: Control pain ? Abx PT/OT Plan for d/c INDIVIDUALIZED FALL PREVENTION INTERVENTIONS: Patient-specific fall risk factors per assessment: [current deficits]: L side NWB, pain Assistance [level of assistance required for transfers and ambulation]: 1 assist w/ FWW Supervision [direct monitoring required during toileting and ADLs]: 1 assist Surveillance [continuous indirect monitoring]: rounding, masimo, bed alarm Patient-specific fall prevention interventions for sensory deficits provided, if applicable: [X] Yes CPG GOAL OUTCOME EVALUATION: * Initial Assessments - Selina Ramirez RN - 02/08/2021 1:15 PM EDT Office of Care Management Initial Assessment Selina Ramirez RN reviewed record and discussed patient with Care Team. Source of Information: Team, bedside nurse, medical record, and Chart Review, Other (patient unavailable; taken to the OR for LLE ankle debridement with wound vac placement) 02/08/2021 Presenting chief complaint: Pain and swelling in right upper extremity cast and left ankle erythema, drainage status post ORIF at [facility] Introduced self/reviewed role; services accepted. Patient had received pain medication and was Reason for Hospitalization: pain Last COVID test: not tested Past medical History: History reviewed. No pertinent past medical history. S/P ORIF left ankle fracture 01/21/2021 at [facility]; fracture sustained 01/11/2021 Active Non-Hospital Problems ?? Diagnosis ??? H/O insulin dependent diabetes mellitus ??? H/O: depression ??? Hypothyroidism ??? h/o chronic headaches ??? Closed fracture of shaft of right ulna with known elbow arthrodesis RIGHT ??? Chronic pain in left shoulder ??? S/P R elbow fusion on 12/14/17 Correa ??? Psoriasis ?? Hospitalizations Within the Past 30 Days: [facility] 01/21/2021 Current Decision-Making Capacity: Self Advance Care Planning: Attempt Cardiopulmonary Resuscitation - Inpatient <no information> -Advanced Directive: No, need to discuss (father Jacobo Méndez is surrogate healthcare decision-maker) If AD's have not been completed father Jacobo Méndez would be surrogate decision maker per [place] surrogate decision making law. (Only good for 90 days) Any patient receiving care at [facility] must abide by [place] law. The hierarchy for surrogate decision making [...] (i) The agent with financial power of personal injury attorney or a conservator appointed in accordance with RSA 464-A. (j) The guardian of the patient???s estate. Current Coping/Education/Information Needs: patient was given the opportunity to have her questionsand concerns addressed prior to surgery 02/08/2021 She agreed with the recommendation for surgical intervention Current Functional Ability: Completely Dependent (s/p wound debridement with vac placement; sedatedat this time) Functional Status Prior to Admission: Assistive Person (modified independence following ankle fx december 2020) Home Environment: People in home: unable to assess. Current Living Arrangements: home/apartment/condo. Accessibility Concerns:to be assessed. Current DME: Wound VAC applied in OR 02/08/2021 Home Address listed as: [address] [place] [id number] Social & Family Supports: All names listed below confirmed with patient as current and correct Extended Emergency Contact Information Primary Emergency Contact: Jacobo Méndez Address: [address] [place] [address] [facility] Relation: Father Current Care Provided by: self Provides Primary Care For: no one, unable/limited ability to care for self Caregiver if needed: unable to assess Quality of Family relationships: unable to assess Community Resources being provided currently: unable to assess Behavioral Health History: History of depression Substance Use/Abuse listed: Social History Tobacco Use Smoking Status Never Smoker Other Pertinent/Service Specific Information: to be assessed Health/Prescription Coverage: Primary Insurance: [place] Payor: [place] / Plan: [place] PRIMARY CARE PLUS / Product Type: *No Product type* / Secondary Insurance: N/A Prescription Coverage: Yes Preferred Pharmacy: [facility] - [address] [address] Status: Patient is a : unable to assess (most likely not but did not confirm) Primary Care Provider: Maryuri Evans MD [phone] Patient/Caregiver Goals of Treatment: healing of L ankle without complication Potential Needs for Transition of Care: Additional help at home VNA referral Home wound VAC Agency Referrals: The patient/caregivers were provided with a list of homecare agencies which servetheir preferred geographic location and they were educated about their right to choose where referrals are placed. Patient/Caregiver requests referral to homecare agencies. [facility] PHONE: [phone] FAX: [phone] NB: Patient had a referral placed following [facility] encounter but was not seen; reason unknown. Transportation: private vehicle v [place] Medicaid transportation Transportation Anticipated: yes, may need assistance from [facility] care team for ride Concerns to be Addressed: Additional help at home VNA referral Wound vac (TBD) ? Home IV anti-infective pending cx Assessment: Patient is admitted to hospital medicine service (2800) for further treatment of L ankle abscess 02/08/2021 To OR for debridement and VAC placement Plan: 60 yo female who sustained Left ankle fx 01/11/2021 with ORIF 01/21/2021 with no progress towards recovery. She was discharged home from [facility]. VNA referral routed to [facility] Practice Professional. Notify [facility] RNCM regarding possible wound vac need upon d/c. Unknown if patient has adequate social supports or home environment barriers. Further assessment pending; she was taken to the OR this AM and was unable to fully participate in conversation when I visited. A member of the Care Management team will continue to monitor progress, follow for continuity of care and assist with transition of care planning. Selina Ramirez RNCM [facility] w/e velocity shooter Pager: [phone] * Op Note - Yani Dumas MD - 02/08/2021 11:30 AM EDT [facility] Operative Note Patient Name: Jesenia Méndez : [id number] MR#: [id number] Case Date: 02/08/2021 Surgeon: Surgeon(s) and Role: * Henrry Quiñones MD - Primary * Yani Dumas MD - Resident Preoperative diagnosis: left ankle draining wound Postoperative diagnosis: left ankle draining wound Procedure(s) (LRB): DEBRIDEMENT SKIN AND SUBCU, LOWER EXTREMITY (WRVU 1.01) (Left) MODIFIER WOUND VAC (Left) Findings: Purulence at the proximal aspect of the incision Anesthesia: General Estimated Blood Loss: 3 mL Specimens removed during surgery: 3 cultures Drains: 1 wound vac with 1 black and 1 white sponge Surgical Closure: Wound vac Disposition: awakened from anesthesia, extubated and taken to the recovery room in a stable condition, having suffered no apparent untoward event. Condition: doing well without problems (Please see the Surgical Encounter Summary for any Implant and Specimen details pertinent to this patient.) HPI/Surgical Indications: This is a 60-year-old female who recently underwent open reduction and internal fixation of a left ankle fracture at the [facility]. She presented to the [facility] emergency department with a symptomatic cast which was placed for a fracture around the plate from an elbow effusion on the contralateral side. At the time of evaluation, the left ankle was noted to be draining purulence. Her inflammatory markers were elevated, and a subsequent CT scan demonstrated a fluid collection. After an extensive discussion with the patient regarding the risk and benefits of surgical versus nonoperative management of her left ankle, the patient elected to proceed to the operating room for irrigation and debridement of her left ankle infection. Procedure Description: The patient was met on the floor where the left ankle was marked. She was then brought to the operating room and transferred to the operating table in the supine position. All bony prominences were well-padded. The left lower extremity was prepped and draped in the usual sterile fashion. Preoperative antibiotics were administered prior to skin incision. A timeout was held in accordance with [facility] policy verifying the patient's name, date of , and planned procedure. There were no objections to proceeding. The previous incision of the left ankle was opened with a 15 blade scalpel. Sharp dissection proceeded through skin and subcutaneous tissues. Purulence was encountered in the proximal aspect of the wound. 3 separate wound swabs were taken and sent for Gram stain and culture. The wound was debrided according to the following specifications: Orthopaedic Surgical Debridement: Type of debridement: Non-excisional Tissues debrided: subcutaneous and wound Amount of skin debrided: 0 cm^2 Amount of subcutaneous tissue debrided: 2 cm^3 Amount of fascia debrided: 0 cm^2 Amount of muscle debrided: 0 cm^3 Size of wound: 8 cm (length) x 2 cm (width) x 1 cm (depth) Appearance of wound: Purulence at proximal aspect of wound, hyperemic tissue throughout wound bed Instruments used to perform debridement: Rongeur, scissors, #15 scalpel) Excised tissue characteristics: Fibrinous slough The extent of the debridement to healthy tissue A wound VAC was then applied to the wound. We placed 1 white sponge in 1 black sponge. Approximate dimensions of the wound VAC were 8 cm x 2 cm x 1 cm. The wound VAC was connected to suction and there was confirmed to be good seal at the end of the case. The patient is then transferred back to hospital bed after reversal anesthesia having suffered no untoward complications. All counts were correct at the end of the case. Associated attestation - Henrry Quiñones MD - 02/09/2021 7:21 AM EDT Attestation: Case Date: 02/08/2021 I was present and I participated during the entire procedure (does not need to include opening and closing). HENRRY QUIÑONES MD 02/09/2021 * Brief Op Note - Yani Dumas MD - 02/08/2021 10:46 AM EDT Brief Operative Note Patient Name: Jesenia Méndez : [id number] MR#: [id number] Case Date: 02/08/2021 Surgeon: Surgeon(s) and Role: * Henrry Quiñones MD - Primary * Yani Dumas MD - Resident Preoperative diagnosis: left ankle draining wound Postoperative diagnosis: left ankle draining wound Procedure(s) (LRB): DEBRIDEMENT SKIN AND SUBCU, LOWER EXTREMITY (WRVU 1.01) (Left) MODIFIER WOUND VAC (Left) Anesthesia: General Findings: Purulence at proximal aspect of incision, tracking to hardware Complications: None apparent Estimated Blood Loss: 3 mL * No values recorded between 02/08/2021 10:14 AM and 02/08/2021 10:30 AM * Specimens removed during surgery: 3 cultures Fluids: Intraprocedure Crystalloid Total None PRBCs: none (See Anesthesia Record/Report for Other Blood Products) Urine Output: (no urine output recorded) Drains: 1 wound vac with 1 black and 1 white sponge Disposition: awakened from anesthesia, extubated and taken to the recovery room in a stable condition, having suffered no apparent untoward event. Condition: doing well without problems (Please see the Surgical Encounter Summary for any Implant and Specimen details pertinent to this patient.) Associated attestation - Henrry Quiñones MD - 02/09/2021 7:18 AM EDT Attestation: Case Date: 02/08/2021 I was present and I participated during the entire procedure (does not need to include opening and closing). HENRRY QUIÑONES MD 02/09/2021 * Plan of Care - Juani Kang RN - 02/08/2021 3:32 AM EDT OUTCOME EVALUATION NOTE: OUTCOME SUMMARY: Jesenia arrived from ED around 2300, here for LLE cellulitis/infection r/t recent ORIF on 01/21; also c/o RUE cast being too tight. LLE DALI wrapped, endorsed 9/10 pain, redness seen on carrillo, elevated at all times on pillow. RUE long cast has two cuts in it per ortho. Woke up very anxious in the middle of the night, asking for cast to be cut off, endorsing 9/10 pain. Dilaudid and flexeril x1 given w/ moderate effect. C/o N/T in fingers and under RUE cast, +CSM. T max 38.3, afebrile at recheck w/o intervention. Tachy in 100s-120s, aware. Glycemic control as ordered. Awake most of night. Plan forOR today. PLAN MOVING FORWARD: OR today for LLE washout, NPO since 0000, ?antibiotics INDIVIDUALIZED FALL PREVENTION INTERVENTIONS: Patient-specific fall risk factors per assessment: [current deficits]: non weight bearing on RUE/LLE, hx of falls, unsteady gait, IV access Assistance [level of assistance required for transfers and ambulation]: SP from WC to bed Supervision [direct monitoring required during toileting and ADLs]: hands on Surveillance [continuous indirect monitoring]: masimo, bed alarm in use, room near unit station, hourly rounding, call correa in reach Patient-specific fall prevention interventions for sensory deficits provided, if applicable: glasses at bedside CPG GOAL OUTCOME EVALUATION: * Consult Note - Trudi Vann MD - 02/07/2021 4:00 PM EDT ORTHOPAEDIC SURGERY CONSULT NOTE ATTENDING: Dr. Jono Méndez is a 60 y.o. female who presents to see us in consultation today at the request ofNo att. providers found. CHIEF COMPLAINT: Pain and swelling in right upper extremity cast and left ankle erythema, drainage status post ORIF at [facility] HPI: Jesenia Méndez is a 60 y.o. female w/ DM, hypothyroidism, headaches, hx right elbow fusion who presents emergency department with multiple complaints. Firstly, the patient notes that she has pain in her right upper extremity. She is being managed in a cast for an ulnar fracture sustained just distal to her elbow fusion plate. She has been placed into a long-arm cast, most recently with a cast exchange yesterday. She did have x-rays yesterday as well. She notes that she feels that her cast is tight. She did feel her cast was tight previously when it had been placed. She notes somewhat diffuse decreased sensation in her hand though it is intact to light touch. The patient's other complaint is that of left ankle pain, swelling, redness, drainage. She did suffer a left ankle fracture on 01/11/2021 when she fell. She subsequently underwent open reduction internal fixation on 01/21/2021 at [facility]. She reports drainage persistently ever since the surgery butmore in the past week. She does not remember having the sutures in place but today there are no sutu res. There is redness, drainage. She notes that it has been worse over the past week. She does havediabetes which she notes has been difficult to control her sugars in the postoperative period. She denies any constitutional symptoms of fevers or chills. No chest pain or shortness of breath. She has been n.p.o. since yesterday. Per notes in the chart, the patient was seen by Dr. Donald on 02/03/2021. At that point she was endorsing similar numbness and tingling at the dorsum of her foot that she continues to experience today. Per the notes she was initially managed in a splint which demonstrated significant wear on the undersurface suggesting she had likely been putting weight on the leg. She was recently transition tothe walking boot on 02/03/2021. There was no indication of any drainage or significant erythema in the office note from 02/03/2021, though there was discussion of concern for eventual wound breakdown given patient's suspected noncompliance with elevation and nonweightbearing. FOCUSED REVIEW OF SYSTEMS: as above. There are no hospital problems to display for this patient. Active Non-Hospital Problems Diagnosis ??? H/O insulin dependent diabetes mellitus ??? H/O: depression ??? Hypothyroidism ??? h/o chronic headaches ??? Closed fracture of shaft of right ulna with known elbow arthrodesis RIGHT ??? Chronic pain in left shoulder ??? S/P R elbow fusion on 12/14/17 [place] ??? Psoriasis FAMILY HISTORY: Negative for bleeding/clotting disorders or anesthetic complications. SOCIAL HISTORY: Social History Tobacco Use Smoking Status Never Smoker Smokeless Tobacco Never Used Social History Substance and Sexual Activity Alcohol Use No MEDICATIONS: No current facility-administered medications for this encounter. ??? OneTouch Ultra Blue Test Strip Strip ??? OneTouch Ultra2 Meter Misc ??? OneTouch Delica Plus Lancet 30 gauge Misc ??? Victoza 2-Terrance 0.6 mg/0.1 mL (18 mg/3 mL) Pen Injector ??? aspirin EC 81 mg Tablet, Delayed Release (E.C.) ??? folic acid (Folvite) 1 mg Tablet ??? gabapentin (Neurontin) 300 mg Capsule ??? Elizabeth Pen Needle 32 gauge x 5/32 Needle ??? hydrOXYzine (VISTARIL) 50 mg Capsule ??? buPROPion XL (Wellbutrin XL) 150 mg Tablet Extended Release 24 hr ??? pantoprazole (PROTONIX) 40 mg Tablet, Delayed Release (E.C.) ??? sertraline (ZOLOFT) 100 mg Tablet ??? zolpidem (AMBIEN) 10 mg Tablet ??? multivitamin (THERAGRAN) Tablet ??? calcium carbonate (CALCIUM 500 ORAL) ??? naproxen (NAPROSYN) 500 mg Tablet ??? levothyroxine (SYNTHROID) 50 mcg Tablet ??? glipiZIDE (GLUCOTROL XL) 10 mg Tablet Extended Rel 24 hr ??? topiramate (TOPAMAX) 100 mg Tablet ??? cyclobenzaprine (FLEXERIL) 5 mg Tablet ??? LANTUS SOLOSTAR U-100 INSULIN pen ??? losartan (COZAAR) 50 mg Tablet ??? insulin glargine (LANTUS) Solution OBJECTIVE: No intake or output data in the 24 hours ending 02/07/21 3235 Body mass index is 33.47 kg/m??. PHYSICAL EXAM: Gen: NAD, resting comfortably, AOx3 HEENT: NC, AT CV: RRR assessed peripherally Pulm: No incr WOB on RA Skin: Intact Psych: Nl mood and affect, somewhat anxious Right Upper Extremity Exam: In long-arm cast. Fingers are warm and well-perfused. Cap refill less than 3 seconds. Motor intact to EPL/FPL/IO. Sensation is intact but subjectively decreased in median/radial/ulnar distributions. Left Lower Extremity Exam: Examination of the left lower extremity demonstrates erythema about the prior surgical incision. There is serous drainage from the wound. I'm not able to express any gross purulence. There are fibrinous, macerated edges of the wound. These were not probed deeply on exam at bedside. Patient is very tender to palpation about the ankle. Tender with any range of motion of the ankle. Notes very minimal sensation to the dorsum of her foot. Intact sensation at the plantar aspect of the foot. Approximately in the calf there is intact sensation. Motor intact hip flexion/extension, knee flexion/extension, ankle flexion/extension, EHL/FHL/TA Brisk capillary refill distally 2+ DP pulse LABS: Lab Results Component Value Date NA 135 02/07/2021 K 4.1 02/07/2021 CL 102 02/07/2021 CO2 22 02/07/2021 BUN 12 02/07/2021 CREATININE 1.00 02/07/2021 GLUCOSE 315 (H) 02/07/2021 CALCIUM 9.3 02/07/2021 Lab Results Component Value Date WBC 9.9 (H) 02/07/2021 HGB 13.8 02/07/2021 HCT 41.8 02/07/2021 MCV 87.6 02/07/2021 PLATELET 170 02/07/2021 Lab Results Component Value Date CRP >300.0 (H) 02/07/2021 IMAGING: X-ray of the left ankle was personally reviewed and demonstrates dual plating of the fibula intact as well as [address]. There is evidence of soft tissue swelling as well as gas in the soft tissue, this is in the area of the draining wound on exam. ASSESSMENT/RECOMMENDATIONS: 60 y.o. female who presents with 2 complaints: 1. Sensation of swelling and tightness in current right upper extremity cast. Patient is being managed in cast for periprosthetic fracture about her right elbow fusion hardware. X-rays were obtained yesterday which demonstrated stable alignment. She was placed into a cast yesterday which she notes feels tight. She does have good cap refill distally. She has subjective numbness and tingling. Therefore the current cast was bivalved. The patient noted immediate improvement in the subjective sensation of numbness and tingling in her hand. Recommended elevation and we can reevaluate to see if the entire cast should be removed and a new one replaced versus continuing with the bivalved cast. 2. Left ankle wound breakdown and drainage status post ORIF of left ankle fracture performed on 01/21/2021 at [facility] (Dr. Henson). Patient has persistent drainage as well as erythema and pain about the ankle. Labs are notable for a glucose of 315, white blood cell count of 9.9, CRP of greater than 300 and ESR of 58. The patient does have significant diabetes and has noted poor control over the past few weeks. otherwise the patient has no significant risk factors making her immunocompromise. We had a long discussion regarding the nature of her poor wound healing as well as persistent drainage in the setting of hardware. I discussed our recommendation would be for irrigation and debridement. We will obtain a CT scan to assess both for evidence of healing as well as any significant soft tissue fluid collection. - Activity-nonweightbearing of the right upper extremity and long-arm bivalved cast. Nonweightbearing of the left lower extremity (has walker boot). Strict elevation of both extremities. - DVT prophylaxis- rec lovenox - Antibiotics: Hold pending potential operative cultures. Can start antibiotics if patient shows instability. - Diet - NPO pending CT and further plan - Imaging needed- CT L ankle - Follow-up- tbd - Discuss w/ Dr. De La Cruz I have contacted the referring team and discussed our evaluation and recommendations as listed above. The orthopaedic service will continue to follow this patient. Thank you for the opportunity to assist in their evaluation and treatment. Please page Orthopaedic consults ([phone]) with any questions or concerns. ?? Trudi Vann MD P. [phone] 02/07/21 5:34 PM Future Appointments Date Time Provider Department Center 03/20/2021 1:00 PM [facility]ST ROOM 3A [facility] 03/20/2021 1:30 PM [facility] DX ROOM 3 [facility] Xray [facility] Rad 03/20/2021 2:20 PM Dorina Campbell, GEOTHERMAL SYSTEM INSTALLER [facility] Addendum: Patient seen and examined again following CT scan of her left ankle. This does demonstrate a walledoff fluid collection at the posterior/distal aspect of the fibula. We had a long discussion with the patient regarding these imaging findings as well as her clinical exam. Discussed concern for deep infection involving the hardware. Discussed recommendation for irrigation and debridement surgicallywith likely application of wound VAC and serial procedures. We did discuss an alternative would be to treat this with IV antibiotics but that we suspect this would have a high chance of failure and continued wound problems particularly given her diabetes. Therefore surgical debridement was recommended and the patient did elect to proceed. Risks and benefits of the procedure were discussed with the patient including but not limited to bleeding, infection, damage to surrounding structures, need for more procedures, cardiopulmonary complications, blood clot, loss of limb, or . The patient expressed understanding and elected to proceed. Consent was signed and placed in the chart. Given the patient is clinically stable at this point, we will plan for surgical intervention tomorrow given limited OR time tonight. As long as patient remains clinically stable, would recommend holding antibiotics. In the event the patient shows any signs of clinical instability, okay to start antibiotics. Recommend patient be admitted to medicine primary team, appreciate assistance in perioperative management and management of comorbidities-specifically glucose control given patient had glucose of 315 on labs. NPO for OR tomorrow. Associated attestation - Jacobo De La Cruz MD - 02/07/2021 7:48 PM EDT I saw and evaluated the patient. I agree with the resident findings as documented. In brief, the patient is a 60-year-old female with complex medical history including poorly controlled insulin-dependent diabetes, hypothyroidism, right elbow fusion and right ulnar fracture just distal to her elbow fusion plate (recently placed into a long-arm cast in the orthopedic clinic at this facility), as well as left ankle fracture sustained on 01/11/2021. She underwent open reduction internal fixation for this on 01/21/2021 at [facility]. With regard to her arm she did complain of some discomfort related to the cast which had been exchanged yesterday in our clinic. She felt like the cast was too tight. The c ast was bivalved by the on-call resident with substantial improvement in her symptoms. With regard to her ankle. She states this is been draining since around the time of surgery. She reports that the drainage has been relatively constant. She does deny any fevers, chills, or other systemic symptoms of illness. She has had continued drainage and dehiscence of the lateral ankle wound, and a CT wasobtained here that is indicative of a small abscess in the area of the distal aspect of the plate. This was discussed with the patient at length. I discussed the recommendation for the OR for irrigation and debridement of the wound site. I discussed the risk, potential benefits, and alternatives to this. I discussed that this is a rather complex problem and wound healing issues, particularly around the ankle and distal lower extremity, and particularly in diabetic patients can be quite difficult to manage and often require multiple surgeries. We discussed at length that this would necessitate further, likely multiple debridement and antibiotics and likely entail a prolonged treatment course. She expressed understanding. She was in agreement with the plan. She remains clinically stable at this time. We will plan for OR either this evening or tomorrow AM depending on OR availability. * ED Triage - Dulce Pardo RN - 02/07/2021 2:39 PM EDT Pt arrives in WC. A&Ox4 speaking in full sentences. Pt reports she needs R arm cast replaced. States it was redone yesterday but is still too tight. Cap refill less than 3 seconds. Pt endorses worsening pain and numbness. Respirations even and non labored. Skin p/w/d. NAD at this time. documented in this encounter Plan of Treatment [...] Ordered: 02/18/2021 documented as of this encounter Procedures Procedure Name Priority Date/Time Associated Diagnosis Comments POCT GLUCOSE Routine 02/18/2021 3:53 PM EDT POCT GLUCOSE Routine 02/18/2021 11:17 AM EDT HEPATIC FUNCTION PANEL Routine 10:35 AM EDT POCT GLUCOSE Routine 02/18/2021 8:35 AM EDT CRP, ACUTE INFLAMMATION Routine 02/19/20 6:10 AM EDT HEMOGRAM Routine 02/18/2021 6:10 AM EDT DIFFERENTIAL, AUTOMATED Routine 02/19/20 6:10 AM EDT HC CBC,PLT & AUTO DIFF Routine 6:10 AM EDT HC PHOSPHORUS, SERUM Routine 02/18/2021 6:10 AM EDT HC MAGNESIUM, SERUM Routine 02/18/2021 6 :10 AM EDT BASIC METABOLIC PANEL Routine 02/18/2021 6:10 AM EDT POCT GLUCOSE Routine 02/17/2021 11:44 PM EDT POCT GLUCOSE Routine 02/17/2021 8:09 PM EDT POCT GLUCOSE Routine 02/17/2021 4:21 PM EDT POCT GLUCOSE Routine 02/17/2021 12:00 PM EDT POCT GLUCOSE Routine 02/17/2021 8:36 AM EDT HEMOGRAM Routine 02/17/2021 4:10 AM EDT DIFFERENTIAL, AUTOMATED Routine 02/18/20 4:10 AM EDT HC CBC,PLT & AUTO DIFF Routine 4:10 AM EDT HC PHOSPHORUS, SERUM Routine 02/17/2021 4:10 AM EDT HC MAGNESIUM, SERUM Routine 02/17/2021 4 :10 AM EDT HC CREATINE PHOSPHOKINASE, SERUM Routine 02/17/2021 4:10 AM EDT BASIC METABOLIC PANEL Routine 02/17/2021 4:10 AM EDT POCT GLUCOSE Routine 02/16/2021 7:33 PM EDT POCT GLUCOSE Routine 02/16/2021 4:[address] ANGIOGRAM LOWER EXTREMITY LEFT Routine 02/16/2021 4:00 PM EDT POCT GLUCOSE Routine 02/16/2021 1:46 PM EDT POCT GLUCOSE Routine 02/16/2021 11:35 AM EDT POCT GLUCOSE Routine 02/16/2021 10:23 AM EDT POCT GLUCOSE Routine 02/16/2021 7:46 AM EDT HC HEMOGRAM Routine 02/16/2021 3:53 AM EDT BASIC METABOLIC PANEL Routine 02/16/2021 3:53 AM EDT POCT GLUCOSE Routine 02/15/2021 8:03 PM EDT POCT GLUCOSE Routine 02/15/2021 5:24 PM EDT POCT GLUCOSE Routine 02/15/2021 3:38 PM EDT POCT GLUCOSE Routine 02/15/2021 11:39 AM EDT POCT GLUCOSE Routine 02/15/2021 7:40 AM EDT HC HEMOGRAM Routine 02/15/2021 12:35 AM EDT BASIC METABOLIC PANEL Routine 02/15/2021 12:35 AM EDT POCT GLUCOSE Routine 02/14/2021 11:51 PM EDT HC CREATINE PHOSPHOKINASE, SERUM Routine 02/14/2021 8:13 PM EDT POCT GLUCOSE Routine 02/14/2021 7:53 PM EDT POCT GLUCOSE Routine 02/14/2021 4:57 PM EDT Debridement Bone Muscle &/Fascia 20 Sq Cm/< ([id number]) 02/14/2021 4:08 PM EDT infected ankle wound HC VANCOMYCIN Timed 02/14/2021 2:50 PM EDT DEBRIDEMENT SKIN, SUBCU, MUSCLE, BONE, LOWER EXTREMITY Routine 02/14/2021 12:34 PM EDT POCT GLUCOSE Routine 02/14/2021 11:51 AM EDT XR PICC PLACEMENT OVER 5 YEARS (IV TEAM) Routine 02/14/2021 9:[address] PICC LINE: CONTACT VASCULAR ACCESS Routine 02/14/2021 8:11 AM EDT POCT GLUCOSE Routine 02/14/2021 8:01 AM EDT POCT GLUCOSE Routine 02/13/2021 11:45 PM EDT POCT GLUCOSE Routine 02/13/2021 7:39 PM EDT POCT GLUCOSE Routine 02/13/2021 3:51 PM EDT XR ANKLE MIN 3 VIEWS LEFT Routine 02/13/2021 12:50 PM EDT POCT GLUCOSE Routine 02/13/2021 11:54 AM EDT POCT GLUCOSE Routine 02/13/2021 8:18 AM EDT POCT GLUCOSE Routine 02/12/2021 8:16 PM EDT POCT GLUCOSE Routine 02/12/2021 7:25 PM EDT POCT GLUCOSE Routine 02/12/2021 5:48 PM EDT ANAEROBIC CULTURE Routine 02/12/2021 5:4 5 PM EDT HC GRAM STAIN FOR BACTERIA Routine 02/12/2021 5:45 PM EDT ABSCESS/WOUND ASPIRATE CULTURE Routine 02/12/2021 5:45 PM EDT ANAEROBIC CULTURE Routine 02/12/2021 5:4 3 PM EDT HC WOUND/ABSCESS CX Routine 02/12/2021 5 :43 PM EDT ABSCESS/WOUND ASPIRATE CULTURE Routine 02/12/2021 5:43 PM EDT MODIFIER WOUND VAC 02/12/2021 4: 48 PM EDT left ankle postop wound Debridement, Skin, Sub-Q Tissue ([id number]) 02/12/2021 4:48 PM EDT left ankle postop wound POCT GLUCOSE Routine 02/12/2021 3:39 PM EDT HC VENIPUNCTURE Timed 02/12/2021 2:30 PM EDT POCT GLUCOSE Routine 02/12/2021 11:56 AM EDT POCT GLUCOSE Routine 02/12/2021 7:37 AM EDT DEBRIDEMENT SKIN AND SUBCU, LOWER EXTREMITY Routine 02/12/2021 7:32 AM EDT POCT GLUCOSE Routine 02/12/2021 4:22 AM EDT POCT GLUCOSE Routine 02/11/2021 11:20 PM EDT POCT GLUCOSE Routine 02/11/2021 7:59 PM EDT POCT GLUCOSE Routine 02/11/2021 4:02 PM EDT POCT GLUCOSE Routine 02/11/2021 1:35 PM EDT POCT GLUCOSE Routine 02/11/2021 11:28 AM EDT POCT GLUCOSE Routine 02/11/2021 7:42 AM EDT POCT GLUCOSE Routine 02/11/2021 3:57 AM EDT POCT GLUCOSE Routine 02/10/2021 11:55 PM EDT POCT GLUCOSE Routine 02/10/2021 9:10 PM EDT POCT GLUCOSE Routine 02/10/2021 6:55 PM EDT POCT GLUCOSE Routine 02/10/2021 3:44 PM EDT HC VENIPUNCTURE Timed 02/10/2021 2:15 PM EDT POCT GLUCOSE Routine 02/10/2021 11:46 AM EDT POCT GLUCOSE Routine 02/10/2021 10:40 AM EDT ANAEROBIC CULTURE Routine 02/10/2021 10: 02 AM EDT ANAEROBIC CULTURE Routine 02/10/2021 10: 02 AM EDT HC WOUND/ABSCESS CX Routine 02/10/2021 1 0:02 AM EDT HC WOUND/ABSCESS CX Routine 02/10/2021 1 0:02 AM EDT ABSCESS/WOUND ASPIRATE CULTURE Routine 02/10/2021 10:02 AM EDT ABSCESS/WOUND ASPIRATE CULTURE Routine 02/10/2021 10:02 AM EDT MODIFIER WOUND VAC 02/10/2021 9: 36 AM EDT Left ankle infection Debridement, Skin, Sub-Q Tissue ([id number]) 02/10/2021 9:36 AM EDT Left ankle infection DEBRIDEMENT SKIN AND SUBCU, LOWER EXTREMITY Routine 02/10/2021 7:48 AM EDT POCT GLUCOSE Routine 02/10/2021 7:42 AM EDT POCT GLUCOSE Routine 02/10/2021 5:02 AM EDT HEMOGRAM Routine 02/10/2021 4:01 AM EDT DIFFERENTIAL, AUTOMATED Routine 02/11/20 4:01 AM EDT HC CBC,PLT & AUTO DIFF Routine 4:01 AM EDT BASIC METABOLIC PANEL Routine 02/10/2021 4:01 AM EDT POCT GLUCOSE Routine 02/10/2021 12:14 AM EDT POCT GLUCOSE Routine 02/09/2021 8:52 PM EDT POCT GLUCOSE Routine 02/09/2021 4:15 PM EDT POCT GLUCOSE Routine 02/09/2021 2:09 PM EDT POCT GLUCOSE Routine 02/09/2021 11:58 AM EDT POCT GLUCOSE Routine 02/09/2021 7:49 AM EDT HEMOGRAM Routine 02/09/2021 5:13 AM EDT DIFFERENTIAL, AUTOMATED Routine 02/10/20 5:13 AM EDT HC VITAMIN D TOTAL-25 HYDROXY Routine 02/09/2021 5:13 AM EDT HC VENIPUNCTURE Routine 02/09/2021 5:13 AM EDT BASIC METABOLIC PANEL Routine 02/09/2021 5:13 AM EDT POCT GLUCOSE Routine 02/09/2021 4:44 AM EDT POCT GLUCOSE Routine 02/08/2021 11:24 PM EDT POCT GLUCOSE Routine 02/08/2021 8:27 PM EDT POCT GLUCOSE Routine 02/08/2021 4:20 PM EDT POCT GLUCOSE Routine 02/08/2021 12:11 PM EDT ANAEROBIC CULTURE Routine 02/08/2021 10: 30 AM EDT ANAEROBIC CULTURE Routine 02/08/2021 10: 30 AM EDT ANAEROBIC CULTURE Routine 02/08/2021 10: 30 AM EDT HC WOUND/ABSCESS CX Routine 02/08/2021 1 0:30 AM EDT HC WOUND/ABSCESS CX Routine 02/08/2021 1 0:30 AM EDT HC WOUND/ABSCESS CX Routine 02/08/2021 1 0:30 AM EDT ABSCESS/WOUND ASPIRATE CULTURE Routine 02/08/2021 10:30 AM EDT ABSCESS/WOUND ASPIRATE CULTURE Routine 02/08/2021 10:30 AM EDT ABSCESS/WOUND ASPIRATE CULTURE Routine 02/08/2021 10:30 AM EDT MODIFIER WOUND VAC 02/08/2021 9: 51 AM EDT left ankle draining wound Debridement, Skin, Sub-Q Tissue ([id number]) 02/08/2021 9:51 AM EDT left ankle draining wound POCT GLUCOSE Routine 02/08/2021 7:57 AM EDT DEBRIDEMENT SKIN AND SUBCU, LOWER EXTREMITY Routine 02/08/2021 4:25 AM EDT POCT GLUCOSE Routine 02/08/2021 4:10 AM EDT HEMOGRAM Routine 02/08/2021 3:19 AM EDT DIFFERENTIAL, AUTOMATED Routine 02/09/20 3:19 AM EDT HC VENIPUNCTURE Routine 02/08/2021 3:19 AM EDT HC HEMOGLOBIN A1C Routine 02/08/2021 3:1 9 AM EDT BASIC METABOLIC PANEL Routine 02/08/2021 3:19 AM EDT POCT GLUCOSE Routine 02/08/2021 2:05 AM EDT POCT GLUCOSE Routine 02/07/2021 11:47 PM EDT POCT GLUCOSE Routine 02/07/2021 10:07 PM EDT POCT GLUCOSE Routine 02/07/2021 8:51 PM EDT HC BLOOD CULTURE- STAT 02/07/2021 7:3 7 PM EDT HC BLOOD CULTURE- STAT 02/07/2021 6:5 5 PM EDT TYPE AND SCREEN VALIDITY STAT 02/07/2021 6:50 PM EDT ABORH RECHECK STATUS STAT 02/07/2021 6:50 PM EDT AB COMMENT STAT 02/07/2021 6:50 PM EDT ANTIBODY IDENTIFICATION STAT 02/08/20 6:50 PM EDT ABO/RH TYPING STAT 02/07/2021 6:50 PM EDT ANTIBODY SCREEN STAT 02/07/2021 6:50 PM EDT HC ANTIBODY DETECTION,CAPTURE-R STAT 02/07/2021 6:[address] LOWER EXTREMITY W CONTRAST LEFT STAT 02/07/2021 5:51 PM EDT XR ANKLE MIN 3 VIEWS LEFT STAT 02/07/2021 3:33 PM EDT HC C-REACTIVE PROTEIN STAT 02/07/2021 3:03 PM EDT HEMOGRAM STAT 02/07/2021 3:03 PM EDT DIFFERENTIAL, AUTOMATED STAT 02/08/20 3:03 PM EDT GOLD TUBE HOLD STAT 02/07/2021 3:03 PM EDT GREEN TUBE HOLD STAT 02/07/2021 3:03 PM EDT VITAMIN D, 25-HYDROXY STAT 02/07/2021 3:03 PM EDT HC ESR-SEDIMENTATION RATE, BLOOD STAT 02/07/2021 3:03 PM EDT HC CBC,PLT & AUTO DIFF STAT 3:03 PM EDT BASIC METABOLIC PANEL STAT 02/07/2021 3:03 PM EDT documented in this encounter Results * (ABNORMAL) POCT Glucose (02/18/2021 3:53 PM EDT) [facility] Glucose, POC 234(H) 65 - 199 mg/dL [facility] Comment: Supplemental ranges: <140 mg/dL before meals <180 mg/dL all other times of the day Blood 02/18/2021 3:53 PM EDT 02/18/2021 3:53 PM EDT Yunior Rodriguez DO POINT OF CARE TEST O RDERABLES Performing Organization Address [facility] Co de Phone Number [facility] [place] [address] * POCT Glucose (02/18/2021 11:17 AM EDT) Glucose, POC 181 65 - 199 mg/dL [facility] Comment: Supplemental ranges: <140 mg/dL before meals <180 mg/dL all other times of the day Blood 02/18/2021 11:1 7 AM EDT 02/18/2021 11:17 AM EDT Yunior Rodriguez DO POINT OF CARE TEST O RDERAMISBAH Performing Organization Address [facility] Co de Phone Number [facility] [place] [address] * (ABNORMAL) Hepatic Function Panel (02/18/2021 10:35 AM EDT) Protein, Total 7.0 6.1 - 8.0 gm/dL [facility] Albumin 3.7 3.2 - 5.2 gm/dL [facility] Aspartate Aminotransferase 27 0 - 30 unit/L [facility] Alanine Aminotransferase 17 0 - 30 unit/L [facility] Alkaline Phosphatase 122(H) 35 - 105 unit/L [facility] Bilirubin, Total 0.2 0.2 - 1.3 mg/dL [facility] Bilirubin, Direct 0.1 0.0 - 0.3 mg/dL [facility] Blood 02/18/2021 10:3 5 AM EDT 02/18/2021 10:41 AM EDT Narrative Resulting Agency Comment Spec In Lab Cami Ugarte [employer]OTHERM[employer] SYSTEM INSTALLER CHEMISTRY ORDERABLES Performing Organization Address [facility] Co de Phone Number [facility] [place] [address] * (ABNORMAL) POCT Glucose (02/18/2021 8:35 AM EDT) [facility] Glucose, POC 225(H) 65 - 199 mg/dL [facility] Comment: Supplemental ranges: <140 mg/dL before meals <180 mg/dL all other times of the day Blood 02/18/2021 8:35 AM EDT 02/18/2021 8:35 AM EDT Yunior Rodriguez DO POINT OF CARE TEST O RDERABLES Performing Organization Address [facility] Co de Phone Number [facility] [place] [address] * (ABNORMAL) CRP, acute inflammation (02/18/2021 6:10 AM EDT) [facility] C-Reactive Protein 29.1(H) <=4.9 mg/L [facility] Blood Venous Draw / Unknown 02/18/2021 6:10 AM EDT 02/18/2021 6:35 AM EDT Narrative Resulting Agency Comment Spec In Lab Cami Ugarte [employer] INSTALLER CHEMISTRY ORDERABLES Performing Organization Address [facility] Co de Phone Number [facility] [place] [address] * (ABNORMAL) Differential, Automated (02/18/2021 6:10 AM EDT) [facility] Neutrophil % 73.3 % [facility] Neutrophil Absolute 6.98(H) 1.70 - 6.10 x10(3)/mc L [facility] Lymph % 18.8 % [facility] Lymphocytes Abs 1.8 0.9 - 3.2 x10(3)/mc L [facility] Monocyte % 4.8 % [facility] Monocyte Abs 0.5 0.3 - 0.9 x10(3)/ L [facility] Eos % 1.9 % [facility] Eosinophils Abs 0.2 0.0 - 0.4 x10(3)/[facility] Basophil % 0.4 % [facility] Baso Absolute 0.0 0.0 - 0.1 x10(3)/[facility] Immature Gran % 0.80 % [facility] Comment: Immature granulocytes(IG's)percentage and absolute count will include metamyelocytes, myelocytes, and promyelocytes. Blood smears from CBCs yielding IG's will be scanned manually for concordance. If this scan disagrees with the automated IG or if promyelocytes are noted, a manual differential will be performed. Immature Gran Absolute 0.08(H) 0.00 - 0.04 x10(3)/[facility] Blood 02/18/2021 6:10 AM EDT 02/18/2021 6:30 AM EDT Narrative Resulting Agency Comment Spec In Lab Cami Ugarte [employer] INSTALLER HEMATOLOGY ORDERABLE S [facility] [place] [address] * (ABNORMAL) Hemogram (02/18/2021 6:10 AM EDT) White Blood Cell 9.5 4.0 - 9.5 x10(3)/[facility] Red Blood Cell 3.64(L) 4.00 - 5.21 x10(6)/ L [facility] Hemoglobin 10.5(L) 11.7 - 15.5 gm/dL [facility] Hematocrit 33.1(L) 35.7 - 45.8 % [facility] Mean Cell Volume 90.9 82.6 - 94.4 fL [facility] Mean Cell Hemoglobin 28.8 27.1 - 32.0 pg [facility] Mean Cell Hemoglobin Concentration 31.7 31.7 - 35.0 gm/dL [facility] Platelet 311 145 - 357 x10(3)/mc L [facility] RDW Standard Deviation 45.1 37.0 - 46.0 [facility] RDW coefficient of variation 14.1 11.5 - 14.1 % [facility] Mean Platelet Volume 10.5 7.6 - 12.9 [facility] NRBC% auto 0.0 % [facility] NRBC Absolute 0.000 0.000 - 0.000 x10(3)/mc L [facility] Blood 02/18/2021 6:10 AM EDT 02/18/2021 6:30 AM EDT Narrative Resulting Agency Comment Spec In Lab Cami Ugarte [employer] INSTALLER HEMATOLOGY ORDERABLE S Performing Organization Address City/[facility]/ZIP Co de Phone Number [facility] [place] [address] * Phosphorus (02/18/2021 6:10 AM EDT) Phosphorus 3.4 2.5 - 4.5 mg/dL [facility] Blood 02/18/2021 6:10 AM EDT 02/18/2021 6:30 AM EDT Narrative Resulting Agency Comment Spec In Lab Cami Ugarte [employer] INSTALLER CHEMISTRY ORDERABLES [facility] [place] [address] * Magnesium (02/18/2021 6:10 AM EDT) Magnesium 0.96 0.69 - 1.07 mmol/L [facility] Blood 02/18/2021 6:10 AM EDT 02/18/2021 6:30 AM EDT Narrative Resulting Agency Comment Spec In Lab Cami M Torito BALBUENA CHEMISTRY ORDERABLES [facility] [place] [address] * (ABNORMAL) Basic Metabolic Panel (non-fasting) (02/18/2021 6:10 AM EDT) Glucose 221(H) 65 - 199 mg/dL [facility] Comment:Diabetes: >=200 mg/d L plus symptoms Blood Urea Nitrogen 13 8 - 18 mg/dL [facility] Creatinine 0.84 0.70 - 1.20 mg/dL [facility] Sodium 138 135 - 145 mmol/L [facility] Potassium 3.8 3.5 - 5.0 mmol/L [facility] Comment: Please note: ??Patients with WBC >100,000 may have falsely elevated Potassium levels. ??For accurate Potassium quantification in these patients send serum separator tube (gold top) for subsequent determinations. ??Contact the Clinical Chemistry Laboratory if there are any questions. Chloride 104 98 - 107 mmol/L [facility] Carbon Dioxide 26 22 - 31 mmol/L [facility] Anion Gap 8 5 - 15 mmol/L [facility] Calcium 9.1 8.5 - 10.5 mg/dL [facility] Est Glomerular Filtration Rate 76 >=60 mL/min/1. 73 m?? [facility] Comment: This patient? s estimated [...] and symptoms in addition to eGFR. Blood 02/18/2021 6:10 AM EDT 02/18/2021 6:30 AM EDT Narrative Resulting Agency Comment Spec In Lab Cami Ugarte [employer] SYSTEM INSTALLER CHEMISTRY ORDERABLES Performing Organization Address [facility] de Phone Number [facility] [place] [address] * (ABNORMAL) POCT Glucose (02/17/2021 11:44 PM EDT) Glucose, POC 202(H) 65 - 199 mg/dL [facility] Comment: Supplemental ranges: <140 mg/dL before meals <180 mg/dL all other times of the day Blood 02/17/2021 11:4 4 PM EDT 02/17/2021 11:44 PM EDT Yunior Rodriguez DO POINT OF CARE TEST O RDERABLES Performing Organization Address [facility] de Phone Number [facility] [place] [address] * POCT Glucose (02/17/2021 8:09 PM EDT) Glucose, POC 142 65 - 199 mg/dL [facility] Comment: Supplemental ranges: <140 mg/dL before meals <180 mg/dL all other times of the day Blood 02/17/2021 8:09 PM EDT 02/17/2021 8:09 PM EDT Yunior Rodriguez DO POINT OF CARE TEST O RDERABLES Performing Organization Address [facility] Co de Phone Number [facility] [place] [address] * POCT Glucose (02/17/2021 4:21 PM EDT) Glucose, POC 191 65 - 199 mg/dL [facility] Comment: Supplemental ranges: <140 mg/dL before meals <180 mg/dL all other times of the day Blood 02/17/2021 4:21 PM EDT 02/17/2021 4:21 PM EDT Yunior Rodriguez DO POINT OF CARE TEST O RDERABLES Performing Organization Address [facility] Co de Phone Number [facility] [place] [address] * POCT Glucose (02/17/2021 12:00 PM EDT) Glucose, POC 155 65 - 199 mg/dL [facility] Comment: Supplemental ranges: <140 mg/dL before meals <180 mg/dL all other times of the day Blood 02/17/2021 12:0 0 PM EDT 02/17/2021 12:00 PM EDT Yunior Rodriguez DO POINT OF CARE TEST O RDERABLES Performing Organization Address [facility] de Phone Number [facility] [place] [address] * (ABNORMAL) POCT Glucose (02/17/2021 8:36 AM EDT) Glucose, POC 239(H) 65 - 199 mg/dL [facility] Comment: Supplemental ranges: <140 mg/dL before meals <180 mg/dL all other times of the day Blood 02/17/2021 8:36 AM EDT 02/17/2021 8:36 AM EDT Yunior Rodriguez DO POINT OF CARE TEST O RDERABLES Performing Organization Address [facility] Co de Phone Number [facility] [address] * (ABNORMAL) Differential, Automated (02/17/2021 4:10 AM EDT) Neutrophil % 69.5 % [facility] Neutrophil Absolute 6.21(H) 1.70 - 6.10 x10(3)/mc L [facility] Lymph % 20.8 % [facility] Lymphocytes Abs 1.9 0.9 - 3.2 x10(3)/mc L [facility] Monocyte % 5.9 % [facility] Monocyte Abs 0.5 0.3 - 0.9 x10(3)/ L [facility] Eos % 1.7 % [facility] Eosinophils Abs 0.2 0.0 - 0.4 x10(3)/ L [facility] Basophil % 0.4 % [facility] Baso Absolute 0.0 0.0 - 0.1 x10(3)/[facility] Immature Gran % 1.70 % [facility] Comment: Immature granulocytes(IG's)percentage and absolute count will include metamyelocytes, myelocytes, and promyelocytes. Blood smears from CBCs yielding IG's will be scanned manually for concordance. If this scan disagrees with the automated IG or if promyelocytes are noted, a manual differential will be performed. Immature Gran Absolute 0.15(H) 0.00 - 0.04 x10(3)/[facility] Blood 02/17/2021 4:10 AM EDT 02/17/2021 4:19 AM EDT Narrative Resulting Agency Comment Spec In Lab Cami Ugarte [employer] INSTALLER HEMATOLOGY ORDERABLE S [facility] [place] [address] * (ABNORMAL) Hemogram (02/17/2021 4:10 AM EDT) White Blood Cell 8.9 4.0 - 9.5 x10(3)/[facility] Red Blood Cell 3.44(L) 4.00 - 5.21 x10(6)/[facility] Hemoglobin 10.0(L) 11.7 - 15.5 gm/dL [facility] Hematocrit 30.9(L) 35.7 - 45.8 % [facility] Mean Cell Volume 89.8 82.6 - 94.4 fL [facility] Mean Cell Hemoglobin 29.1 27.1 - 32.0 pg [facility] Mean Cell Hemoglobin Concentration 32.4 31.7 - 35.0 gm/dL [facility] Platelet 305 145 - 357 x10(3)/mc L [facility] RDW Standard Deviation 44.1 37.0 - 46.0 [facility] RDW coefficient of variation 13.8 11.5 - 14.1 % [facility] Mean Platelet Volume 10.5 7.6 - 12.9 fL [facility] NRBC% auto 0.0 % [facility] NRBC Absolute 0.000 0.000 - 0.000 x10(3)/mc L [facility] Blood 02/17/2021 4:10 AM EDT 02/17/2021 4:19 AM EDT Narrative Resulting Agency Comment Spec In Lab Cami Ugarte [employer] SYSTEM INSTALLER HEMATOLOGY ORDERABLE S [facility] [place] [address] * Phosphorus (02/17/2021 4:10 AM EDT) Phosphorus 3.0 2.5 - 4.5 mg/dL [facility] Blood 02/17/2021 4:10 AM EDT 02/17/2021 4:19 AM EDT Narrative Resulting Agency Comment Spec In Lab Cami Ugarte GEOTHER[employer] SYSTEM INSTALLER CHEMISTRY ORDERABLES [facility] [place] [address] * Magnesium (02/17/2021 4:10 AM EDT) Magnesium 0.91 0.69 - 1.07 mmol/L [facility] Blood 02/17/2021 4:10 AM EDT 02/17/2021 4:19 AM EDT Narrative Resulting Agency Comment Spec In Lab Cami M Torito GEOTHER[employer] SYSTEM INSTALLER CHEMISTRY ORDERABLES [facility] [place] [address] * (ABNORMAL) Basic Metabolic Panel (non-fasting) (02/17/2021 4:10 AM EDT) Glucose 187 65 - 199 mg/dL [facility] Comment:Diabetes: >=200 mg/d L plus symptoms Blood Urea Nitrogen 11 8 - 18 mg/dL [facility] Creatinine 0.82 0.70 - 1.20 mg/dL [facility] Sodium 143 135 - 145 mmol/L [facility] Potassium 3.7 3.5 - 5.0 mmol/L [facility] Comment: Please note: ??Patients with WBC >100,000 may have falsely elevated Potassium levels. ??For accurate Potassium quantification in these patients send serum separator tube (gold top) for subsequent determinations. ??Contact the Clinical Chemistry Laboratory if there are any questions. Chloride 109(H) 98 - 107 mmol/L [facility] Carbon Dioxide 27 22 - 31 mmol/L [facility] Anion Gap 7 5 - 15 mmol/L [facility] Calcium 8.9 8.5 - 10.5 mg/dL [facility] Est Glomerular Filtration Rate 78 >=60 mL/min/1. 73 m?? [facility] Comment: This patient? s estimated glomerular filtration rate (eGFR) is between 78 mL/min/1.73 m2 (patients with less muscle mass) and 91 mL/min/1.73 m2 (patients with more muscle mass) [...] and symptoms in addition to eGFR. Blood 02/17/2021 4:10 AM EDT 02/17/2021 4:19 AM EDT Narrative Resulting Agency Comment Spec In Lab Cami Ugarte APRN CHEMISTRY ORDERABLES Performing Organization Address [facility] Co de Phone Number [facility] [place] [address] * CK (02/17/2021 4:10 AM EDT) Creatine Kinase <20 0 - 160 unit/L [facility] Blood 02/17/2021 4:10 AM EDT 02/17/2021 4:19 AM EDT Narrative Resulting Agency Comment Spec In Lab Yunior Rodriguez DO CHEMISTRY ORDERABLES Performing Organization Address [facility] de Phone Number [facility] [place] [address] * POCT Glucose (02/16/2021 7:33 PM EDT) Glucose, POC 172 65 - 199 mg/dL [facility] Comment: Supplemental ranges: <140 mg/dL before meals <180 mg/dL all other times of the day Blood 02/16/2021 7:33 PM EDT 02/16/2021 7:33 PM EDT Yunior Rodriguez DO POINT OF CARE TEST O RDERABLES Performing Organization Address [facility] Co de Phone Number [facility] [place] [address] * POCT Glucose (02/16/2021 4:11 PM EDT) Glucose, POC 197 65 - 199 mg/dL [facility] Comment: Supplemental ranges: <140 mg/dL before meals <180 mg/dL all other times of the day Blood 02/16/2021 4:11 PM EDT 02/16/2021 4:11 PM EDT Yunior Hoffman Michael DO POINT OF CARE TEST O RDERABLES [facility] [place] [address] * CT Angiogram Lower Extremity Left (Generic) (02/16/2021 4:00 PM EDT) Anatomical Region Laterality Modality Hip, Leg, Knee, Thigh, Ankle, Foot Left Computed Tomography Impressions 02/16/2021 4:46 PM EDT 1. ??Interval removal of ORIF hardware from the distal left tibia and fibula. 2. ??Surrounding inflammation and overlying skin thickening without drainable fluid collection. 3. ??Nonvisualized distal peroneal arteries. Patent anterior/posterior tibial arteries, dorsalis pedis and plantar arteries. Thank you for letting us participate in the care of this patient. ??If you are a health care provider and have any questions regarding this report, please contact the number below. ??For patients who have questions please contact the health day care supervisor that requested your imaging first. ? Electronically signed by: David Unger MD, [facility] ([phone]), at 02/16/2021 4:46 PM Narrative 02/16/2021 4:46 PM EDT EXAMINATION: CT ANGIOGRAM LOWER EXTREMITY LEFT (GENERIC) CLINICAL HISTORY: plan for flap to left ankle TECHNIQUE: CTA of the left lower extremity performed following intravenous administration of 110 mL Omnipaque 350. MIP and 3-D reformatted images were produced and reviewed. COMPARISON: CT of the left leg 02/07/2021 FINDINGS: Vascular: External iliac artery: Visualized distal portion widely patent. Common femoral artery: Widely patent. Superficial femoral artery: Widely patent. Profundus femoral artery: Widely patent. Popliteal artery: Widely patent Anterior tibial artery: Widely patent. Tibio-peroneal trunk: Widely patent. Posterior tibial artery: Widely patent. Peroneal artery: Patent proximally, bifurcates into paired peroneal arteries in the midportion, approximately 11 cm above the talar dome. These distal vessels are not visible beyond the level of the tib-fib fracture. Dorsalis pedis: Widely patent. Plantar arteries: Widely patent. Nonvascular: Interval removal of screw and plate fixation hardware from the distal tibial and fibula. The wound overlying the lateral malleolus is covered with a vacuum dressing. There is significant surrounding subcutaneous edema and skin thickening, however no organized, peripherally enhancing abscess is seen. Ghost tracks in the distal tibia and fibula. No significant change in alignment of fracture fragments. Procedure Note David Unger MD - 02/16/2021 EXAMINATION: CT ANGIOGRAM LOWER EXTREMITY LEFT (GENERIC) CLINICAL HISTORY: plan for flap to left ankle TECHNIQUE: CTA of the left lower extremity performed following intravenousadministration of 110 mL Omnipaque 350. MIP and 3-D reformatted images were producedand reviewed. COMPARISON: CT of the left leg 02/07/2021 FINDINGS: Vascular: External iliac artery: Visualized distal portion widely patent. Common femoral artery: Widely patent. Superficial femoral artery: Widely patent. Profundus femoral artery: Widely patent. Popliteal artery: Widely patent Anterior tibial artery: Widely patent. Tibio-peroneal trunk: Widely patent. Posterior tibial artery: Widely patent. Peroneal artery: Patent proximally, bifurcates into paired peronealarteries in the midportion, approximately 11 cm above the talar dome. These distalvessels are not visible beyond the level of the tib-fib fracture. Dorsalis pedis: Widely patent. Plantar arteries: Widely patent. Nonvascular: Interval removal of screw and plate fixation hardware from the distaltibial and fibula. The wound overlying the lateral malleolus is covered with avacuum dressing. There is significant surrounding subcutaneous edema and skin thickening, however no organized, peripherally enhancing abscess isseen. Ghost tracks in the distal tibia and fibula. No significant change inalignment of fracture fragments. IMPRESSION 1. Interval removal of ORIF hardware from the distal left tibia andfibula. 2. Surrounding inflammation and overlying skin thickening withoutdrainable fluid collection. 3. Nonvisualized distal peroneal arteries. Patent anterior/posteriortibial arteries, dorsalis pedis and plantar arteries. Thank you for letting us participate in the care of this patient. If youare a health care provider and have any questions regarding this report,please contact the number below. For patients who have questions please contactthe health day care supervisor that requested your imaging first. Dali Feliz [employer]OTHER[employer] SYSTEM INSTALLER IMG CT ORDERABLES * (ABNORMAL) POCT Glucose (02/16/2021 1:46 PM EDT) Glucose, POC 274(H) 65 - 199 mg/dL [facility] Comment: Supplemental ranges: <140 mg/dL before meals <180 mg/dL all other times of the day Blood 02/16/2021 1:46 PM EDT 02/16/2021 1:46 PM EDT Yunior Rodriguez DO POINT OF CARE TEST O RDERABLES Performing Organization Address [facility] Co de Phone Number [facility] [place] [address] * (ABNORMAL) POCT Glucose (02/16/2021 11:35 AM EDT) Glucose, POC 215(H) 65 - 199 mg/dL [facility] Comment: Supplemental ranges: <140 mg/dL before meals <180 mg/dL all other times of the day Blood 02/16/2021 11:3 5 AM EDT 02/16/2021 11:35 AM EDT Yunior Rodriguez DO POINT OF CARE TEST O RDERABLES Performing Organization Address [facility] Co de Phone Number [facility] [place] [address] * (ABNORMAL) POCT Glucose (02/16/2021 10:23 AM EDT) Glucose, POC 239(H) 65 - 199 mg/dL [facility] Comment: Supplemental ranges: <140 mg/dL before meals <180 mg/dL all other times of the day Blood 02/16/2021 10:2 3 AM EDT 02/16/2021 10:23 AM EDT Yunior Rodriguez DO POINT OF CARE TEST O VIKKI Performing Organization Address [facility] Co de Phone Number [facility] [place] [address] * (ABNORMAL) POCT Glucose (02/16/2021 7:46 AM EDT) Glucose, POC 273(H) 65 - 199 mg/dL [facility] Comment: Supplemental ranges: <140 mg/dL before meals <180 mg/dL all other times of the day Blood 02/16/2021 7:46 AM EDT 02/16/2021 7:46 AM EDT Yunior Rodriguez DO POINT OF CARE TEST O VIKKI Performing Organization Address [facility] Co de Phone Number [facility] [place] [address] * (ABNORMAL) Basic Metabolic Panel (non-fasting) (02/16/2021 3:53 AM EDT) Glucose 222(H) 65 - 199 mg/dL [facility] Comment:Diabetes: >=200 mg/d L plus symptoms Blood Urea Nitrogen 10 8 - 18 mg/dL [facility] Creatinine 0.79 0.70 - 1.20 mg/dL [facility] Sodium 143 135 - 145 mmol/L [facility] Potassium 3.6 3.5 - 5.0 mmol/L [facility] Comment: Please note: ??Patients with WBC >100,000 may have falsely elevated Potassium levels. ??For accurate Potassium quantification in these patients send serum separator tube (gold top) for subsequent determinations. ??Contact the Clinical Chemistry Laboratory if there are any questions. Chloride 109(H) 98 - 107 mmol/L [facility] Carbon Dioxide 26 22 - 31 mmol/L [facility] Anion Gap 8 5 - 15 mmol/L [facility] Calcium 8.4(L) 8.5 - 10.5 mg/dL [facility] Est Glomerular Filtration Rate 82 >=60 mL/min/1. 73 m?? [facility] Comment: This patient? s estimated glomerular filtration rate (eGFR) is between 82 mL/min/1.73 m2 (patients with less muscle mass) and 95 mL/min/1.73 m2 (patients with more muscle mass) [...] and symptoms in addition to eGFR. Blood 02/16/2021 3:53 AM EDT 02/16/2021 3:57 AM EDT Narrative Resulting Agency Comment Spec In Lab Yunior Rodriguez DO CHEMISTRY ORDERABLES Performing Organization Address City/State/[facility] Co de Phone Number [facility] [place] [address] * (ABNORMAL) Hemogram (02/16/2021 3:53 AM EDT) White Blood Cell 9.6(H) 4.0 - 9.5 x10(3)/mc L [facility] Red Blood Cell 3.33(L) 4.00 - 5.21 x10(6)/mc L [facility] Hemoglobin 9.8(L) 11.7 - 15.5 gm/dL [facility] Hematocrit 30.3(L) 35.7 - 45.8 % [facility] Mean Cell Volume 91.0 82.6 - 94.4 fL [facility] Mean Cell Hemoglobin 29.4 27.1 - 32.0 pg [facility] Mean Cell Hemoglobin Concentration 32.3 31.7 - 35.0 gm/dL [facility] Platelet 263 145 - 357 x10(3)/mc L [facility] RDW Standard Deviation 43.8 37.0 - 46.0 fL [facility] RDW coefficient of variation 13.4 11.5 - 14.1 % [facility] Mean Platelet Volume 10.3 7.6 - 12.9 fL [facility] NRBC% auto 0.0 % [facility] NRBC Absolute 0.000 0.000 - 0.000 x10(3)/mc L [facility] Blood 02/16/2021 3:53 AM EDT 02/16/2021 3:57 AM EDT Narrative Resulting Agency Comment Spec In Lab Yunior Rodriguez DO HEMATOLOGY ORDERABLE S [facility] [place] [address] * POCT Glucose (02/15/2021 8:03 PM EDT) Glucose, POC 174 65 - 199 mg/dL [facility] Comment: Supplemental ranges: <140 mg/dL before meals <180 mg/dL all other times of the day Blood 02/15/2021 8:03 PM EDT 02/15/2021 8:03 PM EDT Yunior Rodriguez DO POINT OF CARE TEST O RDERABLES [facility] [place] [address] * POCT Glucose (02/15/2021 5:24 PM EDT) Glucose, POC 127 65 - 199 mg/dL [facility] Comment: Supplemental ranges: <140 mg/dL before meals <180 mg/dL all other times of the day Blood 02/15/2021 5:24 PM EDT 02/15/2021 5:24 PM EDT Yunior Rodriguez DO POINT OF CARE TEST O RDERABLES Performing Organization Address City/[facility]/ZIP Co de Phone Number [facility] [place] [address] * (ABNORMAL) POCT Glucose (02/15/2021 3:38 PM EDT) Glucose, POC 243(H) 65 - 199 mg/dL [facility] Comment: Supplemental ranges: <140 mg/dL before meals <180 mg/dL all other times of the day Blood 02/15/2021 3:38 PM EDT 02/15/2021 3:38 PM EDT Yunior Yasmin Michael TEE POINT OF CARE TEST O RDERABLES Performing Organization Address [facility] Co de Phone Number [facility] [place] [address] * POCT Glucose (02/15/2021 11:39 AM EDT) Glucose, POC 178 65 - 199 mg/dL [facility] Comment: Supplemental ranges: <140 mg/dL before meals <180 mg/dL all other times of the day Blood 02/15/2021 11:3 9 AM EDT 02/15/2021 11:39 AM EDT Yunior Rodriguez DO POINT OF CARE TEST O RDERABLES Performing Organization Address [facility] Co de Phone Number [facility] [place] [address] * (ABNORMAL) POCT Glucose (02/15/2021 7:40 AM EDT) Glucose, POC 238(H) 65 - 199 mg/dL [facility] Comment: Supplemental ranges: <140 mg/dL before meals <180 mg/dL all other times of the day Blood 02/15/2021 7:40 AM EDT 02/15/2021 7:40 AM EDT Yunior Rodriguez DO POINT OF CARE TEST O RDERABLES [facility] [place] [address] * (ABNORMAL) Basic Metabolic Panel (non-fasting) (02/15/2021 12:35 AM EDT) Glucose 186 65 - 199 mg/dL [facility] Comment:Diabetes: >=200 mg/d L plus symptoms Blood Urea Nitrogen 9 8 - 18 mg/dL [facility] Creatinine 0.84 0.70 - 1.20 mg/dL [facility] Sodium 141 135 - 145 mmol/L [facility] Potassium 3.5 3.5 - 5.0 mmol/L [facility] Comment: Please note: ??Patients with WBC >100,000 may have falsely elevated Potassium levels. ??For accurate Potassium quantification in these patients send serum separator tube (gold top) for subsequent determinations. ??Contact the Clinical Chemistry Laboratory if there are any questions. Chloride 108(H) 98 - 107 mmol/L [facility] Carbon Dioxide 23 22 - 31 mmol/L [facility] Anion Gap 10 5 - 15 mmol/L [facility] Calcium 8.6 8.5 - 10.5 mg/dL [facility] Est Glomerular Filtration Rate 76 >=60 mL/min/1. 73 m?? [facility] Comment: This patient? s estimated [...] and symptoms in addition to eGFR. Blood 02/15/2021 12:3 5 AM EDT 02/15/2021 12:44 AM EDT Narrative Resulting Agency Comment Spec In Lab Edilma Mary MD CHEMISTRY ORDERABLES [facility] [place] [address] * (ABNORMAL) Hemogram (02/15/2021 12:35 AM EDT) White Blood Cell 9.6(H) 4.0 - 9.5 x10(3)/mc L [facility] Red Blood Cell 3.39(L) 4.00 - 5.21 x10(6)/mc L [facility] Hemoglobin 9.7(L) 11.7 - 15.5 gm/dL [facility] Hematocrit 30.7(L) 35.7 - 45.8 % [facility] Mean Cell Volume 90.6 82.6 - 94.4 [facility] Mean Cell Hemoglobin 28.6 27.1 - 32.0 pg [facility] Mean Cell Hemoglobin Concentration 31.6(L) 31.7 - 35.0 gm/dL [facility] Platelet 291 145 - 357 x10(3)/mc L [facility] RDW Standard Deviation 43.9 37.0 - 46.0 [facility] RDW coefficient of variation 13.3 11.5 - 14.1 % [facility] Mean Platelet Volume 10.9 7.6 - 12.9 [facility] NRBC% auto 0.0 % [facility] NRBC Absolute 0.000 0.000 - 0.000 x10(3)/mc L [facility] Blood 02/15/2021 12:3 5 AM EDT 02/15/2021 12:44 AM EDT Narrative Resulting Agency Comment Spec In Lab Edilma Mary MD HEMATOLOGY ORDERABLE S Performing Organization Address [facility] Co de Phone Number [facility] [place] [address] * POCT Glucose (02/14/2021 11:51 PM EDT) Glucose, POC 188 65 - 199 mg/dL [facility] Comment: Supplemental ranges: <140 mg/dL before meals <180 mg/dL all other times of the day Blood 02/14/2021 11:5 1 PM EDT 02/14/2021 11:51 PM EDT Yunior Rodriguez DO POINT OF CARE TEST O RDERABLES Performing Organization Address [facility] Co de Phone Number [facility] [place] [address] * CK (02/14/2021 8:13 PM EDT) Creatine Kinase <20 0 - 160 unit/L [facility] Blood 02/14/2021 8:13 PM EDT 02/14/2021 8:19 PM EDT Narrative Resulting Agency Comment Spec In Lab Yunior Rodriguez DO CHEMISTRY ORDERABLES Performing Organization Address [facility] Co de Phone Number [facility] [place] [address] * POCT Glucose (02/14/2021 7:53 PM EDT) Glucose, POC 186 65 - 199 mg/dL [facility] Comment: Supplemental ranges: <140 mg/dL before meals <180 mg/dL all other times of the day Blood 02/14/2021 7:53 PM EDT 02/14/2021 7:53 PM EDT Yunior Rodriguez DO POINT OF CARE TEST O RDERABLES Performing Organization Address City/[facility]/ZIP Co de Phone Number [facility] [place] [address] * POCT Glucose (02/14/2021 4:57 PM EDT) Glucose, POC 110 65 - 199 mg/dL [facility] Comment: Supplemental ranges: <140 mg/dL before meals <180 mg/dL all other times of the day Blood 02/14/2021 4:57 PM EDT 02/14/2021 4:57 PM EDT Yunior Rodriguez DO POINT OF CARE TEST O RDERABLES Performing Organization Address [facility] Co de Phone Number [facility] [place] [address] * Vancomycin, trough (02/14/2021 2:50 PM EDT) Vancomycin, Trough 18.9 mg/L [facility] Comment: Therapeutic range for complicated infections such as bacteremia, endocarditis, osteomyelitis, meningitis, and hospital-acquired pneumonia caused by S. aureus: 15-20 mg/L Therapeutic range for other indications: 10-15 mg/L Toxic: >20 mg/L Reference: Vancomycin Therapeutic Monitoring: Review and Recommendations from the ASHP, IDSA and SIDP Task Force. ??Am J [employer]-Syst Pharm. 2009; 66:82-98 Blood 02/14/2021 2:50 PM EDT 02/14/2021 3:07 PM EDT Narrative Resulting Agency Comment Spec In Lab Yunior Rodriguez DO CHEMISTRY ORDERABLES Performing Organization Address [facility] Co de Phone Number [facility] [place] [address] * POCT Glucose (02/14/2021 11:51 AM EDT) Glucose, POC 149 65 - 199 mg/dL [facility] Comment: Supplemental ranges: <140 mg/dL before meals <180 mg/dL all other times of the day Blood 02/14/2021 11:5 1 AM EDT 02/14/2021 11:51 AM EDT Yunior Rodriguez DO POINT OF CARE TEST O RDERABLES Performing Organization Address City/State/[facility] Co de Phone Number [facility] [place] [address] * XR PICC Placement Over 5 Years with Imaging Guidance (IV Team) (02/14/2021 9:20 AM EDT) Anatomical Region Laterality Modality N/A Radio Fluoroscop y Impressions 02/14/2021 9:22 AM EDT Left-sided PICC with catheter tip projected at the cavoatrial junction. Thank you for letting us participate in the care of this patient. ??If you are a health care provider and have any questions regarding this report, please contact the number below. ??For patients who have questions please contact the health day care supervisor that requested your imaging first. ? Electronically signed by: BLAZE SALEEM MD, [facility] ([phone]), at 02/14/2021 9:22 AM Narrative 02/14/2021 9:22 AM EDT EXAMINATION: XR PICC PLACEMENT OVER 5 YEARS WITH IMAGING GUIDANCE (IV TEAM) CLINICAL HISTORY: Confirmation of PICC line placement TECHNIQUE: C-arm placement of PICC line. Limited view of the line tip only. COMPARISON: None FINDINGS: Intraprocedural frontal radiograph of the mediastinum demonstrates a left-sided PICC line, with the catheter tip projected at the cavoatrial junction. Procedure Note Blaze Saleem MD - 02/14/2021 EXAMINATION: XR PICC PLACEMENT OVER 5 YEARS WITH IMAGING GUIDANCE (IVTEAM) CLINICAL HISTORY: Confirmation of PICC line placement TECHNIQUE: C-arm placement of PICC line. Limited view of the line tiponly. COMPARISON: None FINDINGS: Intraprocedural frontal radiograph of the mediastinumdemonstrates a left-sided PICC line, with the catheter tip projected at the cavoatrial junction. IMPRESSION Left-sided PICC with catheter tip projected at the cavoatrial junction. Thank you for letting us participate in the care of this patient. If youare a health care provider and have any questions regarding this report,please contact the number below. For patients who have questions please contactthe health day care supervisor that requested your imaging first. Electronically signed by: BLAZE SALEEM MD, [facility]([phone]), at 02/14/2021 9:22 AM Edilma Mary MD IMG FLUORO ORDERABLE S * Place PICC Line: Contact Vascular Access Page [phone] Extremity to exclude: No restrictions; Is PICC procedure required PRIOR to patients discharge? Yes (02/14/2021 8:11 AM EDT) Narrative Sneha Chung RN - 02/14/2021 8:11 AM EDT Sneha Chung RN ? 02/14/2021 ??9:31 AM PICC/Midline Insertion Procedure Note Indications: Anti-infective and Access This insertion was not to replace a malfunctioning catheter. This insertion was not due to a suspected line-associated infection. Location of Procedure: X-Ray Room 11 Risks and Benefits: The risks and benefits of this procedure were reviewed and informed consent was obtained obtained. Time Out: Prior to the start of the procedure, the patient's identity, intended procedure, site/side, correct patient positioning and presence of the site luly was confirmed as applicable. The medical history and chart were reviewed to rule out potential contraindications to the planned procedure. Hand Hygiene: The search marketing coordinator did perform hand hygiene prior to line insertion. Catheter type: PICC Lot number: [id number] Procedure Technique: Skin was prepped with chlorhexidine. Skin preparation agent was completely dry at the time of first skin puncture. The following barrier precaution methods were used:large sterile drape, maske/eye shield, large sterile gown, sterile gloves and cap. 2 ml of 1% Lidocaine was used for skin wheal. Ultrasound was used for guidance. ??Radiographic contrast agent was not injected for vein identification. Procedure Details: Order received for catheter placement. A 4 Fr. single lumen Bard Power catheter was placed into the left basilic vein over a 0.018 inch guidewire using modified seldinger technique and fluoroscopy. Arm circumference was 33 cm at 2 cm above the insertion site. Final catheter length (with trimming): 38 cm Internal: 38 cm External: 0 cm Tip in SVC per DR SALEEM. The line was not placed over a guidewire. Post Procedure: Diagnosis: I & d / SUE LEFT ANKLE Blood return noted on aspiration of line after placement confirmed. 5 mls of normal saline infused free flowing to gravity via PICC after insertion. Sterile dressing applied: Biopatch and Sorbaview. Findings: The patient did tolerate the procedure well. No Complications. Procedure Comments: SNEHA CHUNG RN 02/14/2021 Edilma Mary MD PROCEDURE/MINOR SURG ICAL ORDERABLES * POCT Glucose (02/14/2021 8:01 AM EDT) Glucose, POC 156 65 - 199 mg/dL [facility] Comment: Supplemental ranges: <140 mg/dL before meals <180 mg/dL all other times of the day Blood 02/14/2021 8:01 AM EDT 02/14/2021 8:01 AM EDT Edilma Mary MD POINT OF CARE TEST O RDERABLES [facility] [place] [address] * (ABNORMAL) POCT Glucose (02/13/2021 11:45 PM EDT) Glucose, POC 228(H) 65 - 199 mg/dL [facility] Comment: Supplemental ranges: <140 mg/dL before meals <180 mg/dL all other times of the day Blood 02/13/2021 11:4 5 PM EDT 02/13/2021 11:45 PM EDT Edilma Mary MD POINT OF CARE TEST O RDFLAKITA Performing Organization Address [facility] Co de Phone Number [facility] [place] [address] * POCT Glucose (02/13/2021 7:39 PM EDT) Glucose, POC 186 65 - 199 mg/dL [facility] Comment: Supplemental ranges: <140 mg/dL before meals <180 mg/dL all other times of the day Blood 02/13/2021 7:39 PM EDT 02/13/2021 7:39 PM EDT Edilma Mary MD POINT OF CARE TEST O VIKKI Performing Organization Address [facility] de Phone Number [facility] [address] * (ABNORMAL) POCT Glucose (02/13/2021 3:51 PM EDT) Glucose, POC 201(H) 65 - 199 mg/dL [facility] Comment: Supplemental ranges: <140 mg/dL before meals <180 mg/dL all other times of the day Blood 02/13/2021 3:51 PM EDT 02/13/2021 3:51 PM EDT Edilma Mary MD POINT OF CARE TEST O VIKKI Performing Organization Address [facility] Co de Phone Number [facility] [place] [address] * XR Ankle Min 3 views Left (Generic) (02/13/2021 12:50 PM EDT) Anatomical Region Laterality Modality Ankle Left Digital Radiogra phy Impressions 02/14/2021 2:58 AM EDT Status post removal of lateral fibula plate and screw fixation construct and transsyndesmotic screws. Thank you for letting us participate in the care of this patient. ??If you are a health care provider and have any questions regarding this report, please contact the number below. ??For patients who have questions please contact the health day care supervisor that requested your imaging first. ? Electronically signed by: Christian Leon MD, [facility] ([phone]), at 02/14/2021 2:58 AM Narrative 02/14/2021 2:58 AM EDT EXAMINATION: XR ANKLE MIN 3 VIEWS LEFT (GENERIC) CLINICAL HISTORY: S/p removal of hardware TECHNIQUE: 3 views LEFT ankle COMPARISON: Radiographs of the left ankle 02/07/2021 FINDINGS: Cast material obscures fine osseous and soft tissue detail. Status post removal of lateral fibula plate and screw fixation construct and transsyndesmotic screws.Ghost screw tracks are present within the distal tibia. There is a nondisplaced fracture deformity of the distal fibula at the level of the syndesmosis. ??The ankle mortise is congruent. Procedure Note Christian Leon MD - 02/14/2021 EXAMINATION: XR ANKLE MIN 3 VIEWS LEFT (GENERIC) CLINICAL HISTORY: S/p removal of hardware TECHNIQUE: 3 views LEFT ankle COMPARISON: Radiographs of the left ankle 02/07/2021 FINDINGS: Cast material obscures fine osseous and soft tissue detail. Status post removal of lateral fibula plate and screw fixation constructand transsyndesmotic screws.Ghost screw tracks are present within the distaltibia. There is a nondisplaced fracture deformity of the distal fibula at thelevel of the syndesmosis. The ankle mortise is congruent. IMPRESSION Status post removal of lateral fibula plate and screw fixation constructand transsyndesmotic screws. Thank you for letting us participate in the care of this patient. If youare a health care provider and have any questions regarding this report,please contact the number below. For patients who have questions please contactthe health day care supervisor that requested your imaging first. Electronically signed by: Christian Leon MD, [facility]([phone]), at 02/14/2021 2:58 AM Edilma Mary MD IMG DX ORDERABLES * POCT Glucose (02/13/2021 11:54 AM EDT) Glucose, POC 188 65 - 199 mg/dL [facility] Comment: Supplemental ranges: <140 mg/dL before meals <180 mg/dL all other times of the day Blood 02/13/2021 11:5 4 AM EDT 02/13/2021 11:54 AM EDT Edilma Mary MD POINT OF CARE TEST O RDERAMISBAH Performing Organization Address [facility] Co de Phone Number [facility] [place] [address] * POCT Glucose (02/13/2021 8:18 AM EDT) Glucose, POC 185 65 - 199 mg/dL [facility] Comment: Supplemental ranges: <140 mg/dL before meals <180 mg/dL all other times of the day Blood 02/13/2021 8:18 AM EDT 02/13/2021 8:18 AM EDT Edilma Mary MD POINT OF CARE TEST O VIKKI [facility] [place] [address] * POCT Glucose (02/12/2021 8:16 PM EDT) Glucose, POC 120 65 - 199 mg/dL [facility] Comment: Supplemental ranges: <140 mg/dL before meals <180 mg/dL all other times of the day Blood 02/12/2021 8:16 PM EDT 02/12/2021 8:16 PM EDT Edilma Mary MD POINT OF CARE TEST O VIKKI Performing Organization Address City/[facility]/ZIP Co de Phone Number [facility] [place] [address] * POCT Glucose (02/12/2021 7:25 PM EDT) Glucose, POC 99 65 - 199 mg/dL [facility] Comment: Supplemental ranges: <140 mg/dL before meals <180 mg/dL all other times of the day Blood 02/12/2021 7:25 PM EDT 02/12/2021 7:25 PM EDT Edilma Mary MD POINT OF CARE TEST O VIKKI Performing Organization Address [facility]/ZIP Co de Phone Number [facility] [place] [address] * POCT Glucose (02/12/2021 5:48 PM EDT) Glucose, POC 102 65 - 199 mg/dL [facility] Comment: Supplemental ranges: <140 mg/dL before meals <180 mg/dL all other times of the day Blood 02/12/2021 5:48 PM EDT 02/12/2021 5:48 PM EDT Edilma Mary MD POINT OF CARE TEST O VIKKI Performing Organization Address City/[facility]/ZIP Co de Phone Number [facility] [place] [address] * Anaerobic Culture (02/12/2021 5:45 PM EDT) Anaerobic Culture No anaerobic organisms isolated [facility] Deep Wound ANKLE REGION STRUCTURE / Unknown 02/12/2021 5:45 PM EDT 02/12/2021 6:31 PM EDT Comment:OR#[id number] Narrative Resulting Agency Comment Spec In Lab Sabrina Capellan MD MICROBIOLOGY - GENER AL ORDERABLES Performing Organization Address [facility] Co de Phone Number [facility] [place] [address] * (ABNORMAL) Abscess/Wound Aspirate Culture (02/12/2021 5:45 PM EDT) Abscess/Wound Aspirate Culture Rare Staphylococcus aureus Susceptibilities previously reported (A) [facility] Gram Stain No Neutrophils seen. No microorganisms seen. (A) [facility] Organism Staphylococcus aureus(A) [facility] Deep Wound ANKLE REGION STRUCTURE / Unknown 02/12/2021 5:45 PM EDT 02/12/2021 6:31 PM EDT Comment:OR#[id number] Narrative Resulting Agency Comment Spec In Lab Sabrina Capellan MD MICROBIOLOGY - GENER AL ORDERABLES Performing Organization Address [facility] Co de Phone Number [facility] [place] [address] * Anaerobic Culture (02/12/2021 5:43 PM EDT) Anaerobic Culture No anaerobic organisms isolated [facility] Deep Wound ANKLE REGION STRUCTURE / Unknown 02/12/2021 5:43 PM EDT 02/12/2021 6:32 PM EDT Comment:LEFT DEEP ANKLE BONE Narrative Resulting Agency Comment Spec In Lab Sabrina Capellan MD MICROBIOLOGY - GENER AL ORDERABLES Performing Organization Address [facility] Co de Phone Number [facility] [place] [address] * (ABNORMAL) Abscess/Wound Aspirate Culture (02/12/2021 5:43 PM EDT) Abscess/Wound Aspirate Culture Few Staphylococcus aureus(A) [facility] Gram Stain No Neutrophils seen. No microorganisms seen. (A) [facility] Organism Staphylococcus aureus(A) [facility] Deep Wound ANKLE REGION STRUCTURE / Unknown 02/12/2021 5:43 PM EDT 02/12/2021 6:32 PM EDT Comment:LEFT DEEP ANKLE BONE Narrative Resulting Agency Comment Spec In Lab Organism Antibiotic Method Susceptibility Staphylococcus aureus Cefazolin VITEK 2 METHOD Sensitive Staphylococcus aureus Ceftriaxone VITEK 2 METHOD Sensitive Staphylococcus aureus Clindamycin VITEK 2 METHOD Sensitive Staphylococcus aureus Erythromycin VITEK 2 METHOD Sensitive Staphylococcus aureus Gentamicin VITEK 2 METHOD Sensitive Comment:Gentamicin i s not appropriate for [place]-therapy. Staphylococcus aureus Oxacillin VITEK 2 METHOD Sensitive Comment: Oxacillin (methicillin) susceptibility is a surrogate for the oral and parenteral cephalosporins, beta-lactam combination agents (amoxicillin-clavulanate, ampicillin-sulbactam and piperacillin-tazobactam) and carbapenem agents. ??It is NOT a surrogate for penicillin, ampicillin or piperacillin susceptibility. Staphylococcus aureus Trimethoprim/Sulfa VITEK 2 METHO D Sensitive Staphylococcus aureus Tetracycline VITEK 2 METHOD Sensitive Staphylococcus aureus Vancomycin VITEK 2 METHOD Sensitive Sabrina Capellan MD MICROBIOLOGY - GENER AL ORDERABLES Performing Organization Address City/[facility]/ZIP Co de Phone Number [facility] [place] [address] * POCT Glucose (02/12/2021 3:39 PM EDT) Glucose, POC 109 65 - 199 mg/dL [facility] Comment: Supplemental ranges: <140 mg/dL before meals <180 mg/dL all other times of the day Blood 02/12/2021 3:39 PM EDT 02/12/2021 3:39 PM EDT Edilma Mary MD POINT OF CARE TEST O RDERABLES Performing Organization Address City/[facility]/ZIP Co de Phone Number [facility] [place] [address] * Vancomycin, trough (02/12/2021 2:30 PM EDT) Vancomycin, Trough 18.3 mg/L [facility] Comment: Therapeutic range for complicated infections such as bacteremia, endocarditis, osteomyelitis, meningitis, and hospital-acquired pneumonia caused by S. aureus: 15-20 mg/L Therapeutic range for other indications: 10-15 mg/L Toxic: >20 mg/L Reference: Vancomycin Therapeutic Monitoring: Review and Recommendations from the ASHP, IDSA and SIDP Task Force. ??Am J Health-Syst Pharm. 2009; 66:82-98 Blood 02/12/2021 2:30 PM EDT 02/12/2021 2:37 PM EDT Narrative Resulting Agency Comment Spec In Lab Yunior Rodriguez DO CHEMISTRY ORDERABLES Performing Organization Address [facility]/ZIP Co de Phone Number [facility] [place] [address] * POCT Glucose (02/12/2021 11:56 AM EDT) Glucose, POC 123 65 - 199 mg/dL [facility] Comment: Supplemental ranges: <140 mg/dL before meals <180 mg/dL all other times of the day Blood 02/12/2021 11:5 6 AM EDT 02/12/2021 11:56 AM EDT Edilma Mary MD POINT OF CARE TEST O RDERABLES Performing Organization Address [facility] Co de Phone Number [facility] [place] [address] * POCT Glucose (02/12/2021 7:37 AM EDT) Glucose, POC 138 65 - 199 mg/dL [facility] Comment: Supplemental ranges: <140 mg/dL before meals <180 mg/dL all other times of the day Blood 02/12/2021 7:37 AM EDT 02/12/2021 7:37 AM EDT Edilma Mary MD POINT OF CARE TEST O RDERAMISBAH Performing Organization Address City/[facility]/ZIP Co de Phone Number [facility] [place] [address] * POCT Glucose (02/12/2021 4:22 AM EDT) Glucose, POC 170 65 - 199 mg/dL [facility] Comment: Supplemental ranges: <140 mg/dL before meals <180 mg/dL all other times of the day Blood 02/12/2021 4:22 AM EDT 02/12/2021 4:22 AM EDT Edilma Mary MD POINT OF CARE TEST O RDERABLES [facility] [place] [address] * POCT Glucose (02/11/2021 11:20 PM EDT) Glucose, POC 147 65 - 199 mg/dL [facility] Comment: Supplemental ranges: <140 mg/dL before meals <180 mg/dL all other times of the day Blood 02/11/2021 11:2 0 PM EDT 02/11/2021 11:20 PM EDT Edilma Mary MD POINT OF CARE TEST O RDERABLES Performing Organization Address City/[facility]/ZIP Co de Phone Number [facility] [place] [address] * (ABNORMAL) POCT Glucose (02/11/2021 7:59 PM EDT) Glucose, POC 213(H) 65 - 199 mg/dL [facility] Comment: Supplemental ranges: <140 mg/dL before meals <180 mg/dL all other times of the day Blood 02/11/2021 7:59 PM EDT 02/11/2021 7:59 PM EDT Edilma Mary MD POINT OF CARE TEST O RDERABLES [facility] [place] [address] * POCT Glucose (02/11/2021 4:02 PM EDT) Glucose, POC 129 65 - 199 mg/dL [facility] Comment: Supplemental ranges: <140 mg/dL before meals <180 mg/dL all other times of the day Blood 02/11/2021 4:02 PM EDT 02/11/2021 4:02 PM EDT Edilma Mary MD POINT OF CARE TEST O RDERABLES [facility] [place] [address] * POCT Glucose (02/11/2021 1:35 PM EDT) Glucose, POC 152 65 - 199 mg/dL [facility] Comment: Supplemental ranges: <140 mg/dL before meals <180 mg/dL all other times of the day Blood 02/11/2021 1:35 PM EDT 02/11/2021 1:35 PM EDT Edilma Mary MD POINT OF CARE TEST O RDERABLES Performing Organization Address City/[facility]/ZIP Co de Phone Number [facility] [place] [address] * (ABNORMAL) POCT Glucose (02/11/2021 11:28 AM EDT) Glucose, POC 284(H) 65 - 199 mg/dL [facility] Comment: Supplemental ranges: <140 mg/dL before meals <180 mg/dL all other times of the day Blood 02/11/2021 11:2 8 AM EDT 02/11/2021 11:28 AM EDT Eidlma Mary MD POINT OF CARE TEST O RDERABLES [facility] [place] [address] * POCT Glucose (02/11/2021 7:42 AM EDT) Glucose, POC 133 65 - 199 mg/dL [facility] Comment: Supplemental ranges: <140 mg/dL before meals <180 mg/dL all other times of the day Blood 02/11/2021 7:42 AM EDT 02/11/2021 7:42 AM EDT Edilma Mary MD POINT OF CARE TEST O DIMITRISERAMISBAH [facility] [place] [address] * (ABNORMAL) POCT Glucose (02/11/2021 3:57 AM EDT) Glucose, POC 267(H) 65 - 199 mg/dL [facility] Comment: Supplemental ranges: <140 mg/dL before meals <180 mg/dL all other times of the day Blood 02/11/2021 3:57 AM EDT 02/11/2021 3:57 AM EDT Edilma Mary MD POINT OF CARE TEST O DIMITRISERAMISBAH Performing Organization Address [facility]/ZIP Co de Phone Number [facility] [place] [address] * POCT Glucose (02/10/2021 11:55 PM EDT) Glucose, POC 190 65 - 199 mg/dL [facility] Comment: Supplemental ranges: <140 mg/dL before meals <180 mg/dL all other times of the day Blood 02/10/2021 11:5 5 PM EDT 02/10/2021 11:55 PM EDT Edilma Mary MD POINT OF CARE TEST O RDERAMISBAH [facility] [place] [address] * (ABNORMAL) POCT Glucose (02/10/2021 9:10 PM EDT) Glucose, POC 225(H) 65 - 199 mg/dL [facility] Comment: Supplemental ranges: <140 mg/dL before meals <180 mg/dL all other times of the day Blood 02/10/2021 9:10 PM EDT 02/10/2021 9:10 PM EDT Edilma Mary MD POINT OF CARE TEST O RDERABLES [facility] [place] [address] * (ABNORMAL) POCT Glucose (02/10/2021 6:55 PM EDT) Glucose, POC 346(H) 65 - 199 mg/dL [facility] Comment: Supplemental ranges: <140 mg/dL before meals <180 mg/dL all other times of the day Blood 02/10/2021 6:55 PM EDT 02/10/2021 6:55 PM EDT Edilma Mary MD POINT OF CARE TEST O RDERABLES Performing Organization Address City/[facility]/ZIP Co de Phone Number [facility] [place] [address] * (ABNORMAL) POCT Glucose (02/10/2021 3:44 PM EDT) Glucose, POC 284(H) 65 - 199 mg/dL [facility] Comment: Supplemental ranges: <140 mg/dL before meals <180 mg/dL all other times of the day Blood 02/10/2021 3:44 PM EDT 02/10/2021 3:44 PM EDT Edilma Mary MD POINT OF CARE TEST O RDERABLES [facility] [place] [address] * Vancomycin, trough (02/10/2021 2:15 PM EDT) Vancomycin, Trough 12.9 mg/L [facility] Comment: Therapeutic range for complicated infections such as bacteremia, endocarditis, osteomyelitis, meningitis, and hospital-acquired pneumonia caused by S. aureus: 15-20 mg/L Therapeutic range for other indications: 10-15 mg/L Toxic: >20 mg/L Reference: Vancomycin Therapeutic Monitoring: Review and Recommendations from the ASHP, IDSA and SIDP Task Force. ??Am J Health-Syst Pharm. 2009; 66:82-98 Blood 02/10/2021 2:15 PM EDT 02/10/2021 2:24 PM EDT Narrative Resulting Agency Comment Spec In Lab Yunior Rodriguez DO CHEMISTRY ORDERABLES Performing Organization Address City/[facility]/ZIP Co de Phone Number [facility] [place] [address] * POCT Glucose (02/10/2021 11:46 AM EDT) Glucose, POC 154 65 - 199 mg/dL [facility] Comment: Supplemental ranges: <140 mg/dL before meals <180 mg/dL all other times of the day Blood 02/10/2021 11:4 6 AM EDT 02/10/2021 11:46 AM EDT Edilma Mary MD POINT OF CARE TEST O RDERABLES [facility] [place] [address] * POCT Glucose (02/10/2021 10:40 AM EDT) Glucose, POC 132 65 - 199 mg/dL [facility] Comment: Supplemental ranges: <140 mg/dL before meals <180 mg/dL all other times of the day Blood 02/10/2021 10:4 0 AM EDT 02/10/2021 10:40 AM EDT Edilma Mary MD POINT OF CARE TEST O RDERABLES Performing Organization Address [facility] Co de Phone Number [facility] [place] [address] * Anaerobic Culture (02/10/2021 10:02 AM EDT) Anaerobic Culture No anaerobic organisms isolated [facility] Deep Wound STRUCTURE OF LEFT FOOT / Unknown 02/10/2021 10:02 AM EDT 02/10/2021 10:31 AM EDT Comment:LEFT LATERAL PROXIMA L ANKLE Narrative Resulting Agency Comment Spec In Lab Jacobo De La Cruz MD MICROBIOLOGY - GENER AL ORDERABLES Performing Organization Address [facility] Phone Number [facility] [place] [address] * (ABNORMAL) Abscess/Wound Aspirate Culture (02/10/2021 10:02 AM EDT) Abscess/Wound Aspirate Culture Many Staphylococcus aureus Few Enterococcus faecalis Susceptibilities previously reported Few normal cutaneous karime (A) [facility] Gram Stain Many Neutrophils seen Rare Gram Positive Cocci seen (A) [facility] Organism Staphylococcus aureus(A) [facility] Organism Enterococcus faecalis(A) [facility] Organism Gram Positive Cocci(A) [facility] Deep Wound STRUCTURE OF LEFT FOOT / Unknown 02/10/2021 10:02 AM EDT 02/10/2021 10:31 AM EDT Comment:LEFT LATERAL PROXIMA L ANKLE Narrative Resulting Agency Comment Spec In Lab Jacobo De La Cruz MD MICROBIOLOGY - GENER AL ORDERABLES Performing Organization Address [facility] Co de Phone Number [facility] [place] [address] * Anaerobic Culture (02/10/2021 10:02 AM EDT) Anaerobic Culture No anaerobic organisms isolated [facility] Deep Wound STRUCTURE OF LEFT FOOT / Unknown 02/10/2021 10:02 AM EDT 02/10/2021 10:31 AM EDT Comment:LEFT LATERAL DISTAL ANKLE Narrative Resulting Agency Comment Spec In Lab Jacobo De La Cruz MD MICROBIOLOGY - GENER AL ORDERABLES Performing Organization Address [facility] Co de Phone Number [facility] [place] [address] * (ABNORMAL) Abscess/Wound Aspirate Culture (02/10/2021 10:02 AM EDT) Abscess/Woun d Aspirate Culture Many Staphylococcus aureus : Susceptibilities previously reported Moderate normal cutaneous karime (A) [facility] Gram Stain Many Neutrophils seen Few Gram Positive Cocci seen (A) [facility] Organism Staphylococcus aureus(A) [facility] Organism Gram Positive Cocci(A) [facility] Deep Wound STRUCTURE OF LEFT FOOT / Unknown 02/10/2021 10:02 AM EDT 02/10/2021 10:31 AM EDT Comment:LEFT LATERAL DISTAL ANKLE Narrative Resulting Agency Comment Spec In Lab Jacobo De La Cruz MD MICROBIOLOGY - GENER AL ORDERABLES Performing Organization Address [facility] Co de Phone Number [facility] [place] [address] * POCT Glucose (02/10/2021 7:42 AM EDT) Glucose, POC 130 65 - 199 mg/dL [facility] Comment: Supplemental ranges: <140 mg/dL before meals <180 mg/dL all other times of the day Blood 02/10/2021 7:42 AM EDT 02/10/2021 7:42 AM EDT Edilma Mary MD POINT OF CARE TEST O RDERABLES Performing Organization Address [facility] Co de Phone Number [facility] [place] [address] * POCT Glucose (02/10/2021 5:02 AM EDT) Glucose, POC 102 65 - 199 mg/dL [facility] Comment: Supplemental ranges: <140 mg/dL before meals <180 mg/dL all other times of the day Blood 02/10/2021 5:02 AM EDT 02/10/2021 5:02 AM EDT Edilma Mary MD POINT OF CARE TEST O RDERABLES [facility] [place] [address] * Differential, Automated (02/10/2021 4:01 AM EDT) Pathologist [facility] Neutrophil % 73.3 % [facility] Neutrophil Absolute 4.98 1.70 - 6.10 x10(3)/[facility] Lymph % 14.3 % [facility] Lymphocytes Abs 1.0 0.9 - 3.2 x10(3)/[facility] Monocyte % 10.2 % [facility] Monocyte Abs 0.7 0.3 - 0.9 x10(3)/[facility] Eos % 1.6 % [facility] Eosinophils Abs 0.1 0.0 - 0.4 x10(3)/[facility] Basophil % 0.3 % [facility] Baso Absolute 0.0 0.0 - 0.1 x10(3)/[facility] Immature Gran % 0.30 % [facility] Comment: Immature granulocytes(IG's)percentage and absolute count will include metamyelocytes, myelocytes, and promyelocytes. Blood smears from CBCs yielding IG's will be scanned manually for concordance. If this scan disagrees with the automated IG or if promyelocytes are noted, a manual differential will be performed. Immature Gran Absolute 0.02 0.00 - 0.04 x10(3)/[facility] Blood 02/10/2021 4:01 AM EDT 02/10/2021 4:21 AM EDT Narrative Resulting Agency Comment Spec In Lab Yani Dumas MD HEMATOLOGY ORDERABL ES [facility] [place] [address] * (ABNORMAL) Hemogram (02/10/2021 4:01 AM EDT) White Blood Cell 6.8 4.0 - 9.5 x10(3)/[facility] Red Blood Cell 3.60(L) 4.00 - 5.21 x10(6)/[facility] Hemoglobin 10.5(L) 11.7 - 15.5 gm/dL [facility] Hematocrit 32.6(L) 35.7 - 45.8 % [facility] Mean Cell Volume 90.6 82.6 - 94.4 fL [facility] Mean Cell Hemoglobin 29.2 27.1 - 32.0 pg [facility] Mean Cell Hemoglobin Concentration 32.2 31.7 - 35.0 gm/dL [facility] Platelet 160 145 - 357 x10(3)/[facility] RDW Standard Deviation 45.1 37.0 - 46.0 [facility] RDW coefficient of variation 13.5 11.5 - 14.1 % [facility] Mean Platelet Volume 11.6 7.6 - 12.9 fL [facility] NRBC% auto 0.0 % [facility] NRBC Absolute 0.000 0.000 - 0.000 x10(3)/[facility] Blood 02/10/2021 4:01 AM EDT 02/10/2021 4:21 AM EDT Narrative Resulting Agency Comment Spec In Lab Yani Dumas MD HEMATOLOGY ORDERABL ES [facility] [place] [address] * (ABNORMAL) Basic Metabolic Panel (non-fasting) (02/10/2021 4:01 AM EDT) Glucose 107 65 - 199 mg/dL [facility] Comment:Diabetes: >=200 mg/d L plus symptoms Blood Urea Nitrogen 11 8 - 18 mg/dL [facility] Creatinine 0.82 0.70 - 1.20 mg/dL [facility] Sodium 142 135 - 145 mmol/L [facility] Potassium 3.6 3.5 - 5.0 mmol/L [facility] Comment: Please note: ??Patients with WBC >100,000 may have falsely elevated Potassium levels. ??For accurate Potassium quantification in these patients send serum separator tube (gold top) for subsequent determinations. ??Contact the Clinical Chemistry Laboratory if there are any questions. Chloride 111(H) 98 - 107 mmol/L [facility] Carbon Dioxide 22 22 - 31 mmol/L [facility] Anion Gap 9 5 - 15 mmol/L [facility] Calcium 8.5 8.5 - 10.5 mg/dL [facility] Est Glomerular Filtration Rate 78 >=60 mL/min/1. 73 m?? [facility] Comment: This patient? s estimated glomerular filtration rate (eGFR) is between 78 mL/min/1.73 m2 (patients with less muscle mass) and 91 mL/min/1.73 m2 (patients with more muscle mass) [...] and symptoms in addition to eGFR. Blood 02/10/2021 4:01 AM EDT 02/10/2021 4:21 AM EDT Narrative Resulting Agency Comment Spec In Lab Edilma Mary MD CHEMISTRY ORDERABLES Performing Organization Address [facility] Co de Phone Number [facility] [place] [address] * POCT Glucose (02/10/2021 12:14 AM EDT) Glucose, POC 180 65 - 199 mg/dL [facility] Comment: Supplemental ranges: <140 mg/dL before meals <180 mg/dL all other times of the day Blood 02/10/2021 12:1 4 AM EDT 02/10/2021 12:14 AM EDT Edilma Mary MD POINT OF CARE TEST O RDERABLES Performing Organization Address [facility] Co de Phone Number [facility] [place] [address] * POCT Glucose (02/09/2021 8:52 PM EDT) Glucose, POC 178 65 - 199 mg/dL [facility] Comment: Supplemental ranges: <140 mg/dL before meals <180 mg/dL all other times of the day Blood 02/09/2021 8:52 PM EDT 02/09/2021 8:52 PM EDT Edilma Mary MD POINT OF CARE TEST O RDERABLES Performing Organization Address [facility] Co de Phone Number [facility] [place] [address] * (ABNORMAL) POCT Glucose (02/09/2021 4:15 PM EDT) Glucose, POC 260(H) 65 - 199 mg/dL [facility] Comment: Supplemental ranges: <140 mg/dL before meals <180 mg/dL all other times of the day Blood 02/09/2021 4:15 PM EDT 02/09/2021 4:15 PM EDT Edilma Mary MD POINT OF CARE TEST O RDERABLES Performing Organization Address [facility] Co de Phone Number [facility] [place] [address] * (ABNORMAL) POCT Glucose (02/09/2021 2:09 PM EDT) Glucose, POC 346(H) 65 - 199 mg/dL [facility] Comment: Supplemental ranges: <140 mg/dL before meals <180 mg/dL all other times of the day Blood 02/09/2021 2:09 PM EDT 02/09/2021 2:09 PM EDT Edilma Mary MD POINT OF CARE TEST O RDERABLES Performing Organization Address [facility] Co de Phone Number [facility] [place] [address] * (ABNORMAL) POCT Glucose (02/09/2021 11:58 AM EDT) Glucose, POC 339(H) 65 - 199 mg/dL [facility] Comment: Supplemental ranges: <140 mg/dL before meals <180 mg/dL all other times of the day Blood 02/09/2021 11:5 8 AM EDT 02/09/2021 11:58 AM EDT Edilma Mary MD POINT OF CARE TEST O RDERABLES Performing Organization Address [facility] Co de Phone Number [facility] [place] [address] * POCT Glucose (02/09/2021 7:49 AM EDT) Glucose, POC 168 65 - 199 mg/dL [facility] Comment: Supplemental ranges: <140 mg/dL before meals <180 mg/dL all other times of the day Blood 02/09/2021 7:49 AM EDT 02/09/2021 7:49 AM EDT Edilma Mary MD POINT [place] [address] * (ABNORMAL) Differential, Automated (02/09/2021 5:13 AM EDT) Neutrophil % 73.2 % [facility] Neutrophil Absolute 6.14(H) 1.70 - 6.10 x10(3)/mc L [facility] Lymph % 11.5 % [facility] Lymphocytes Abs 1.0 0.9 - 3.2 x10(3)/ L [facility] Monocyte % 14.1 % [facility] Monocyte Abs 1.2(H) 0.3 - 0.9 x10(3)/ L [facility] Eos % 0.6 % [facility] Eosinophils Abs 0.0 0.0 - 0.4 x10(3)/ L [facility] Basophil % 0.4 % [facility] Baso Absolute 0.0 0.0 - 0.1 x10(3)/[facility] LAB[facility]ORY Immature Gran % 0.20 % [facility] Comment: Immature granulocytes(IG's)percentage and absolute count will include metamyelocytes, myelocytes, and promyelocytes. Blood smears from CBCs yielding IG's will be scanned manually for concordance. If this scan disagrees with the automated IG or if promyelocytes are noted, a manual differential will be performed. Immature Gran Absolute 0.02 0.00 - 0.04 x10(3)/ L [facility] Blood 02/09/2021 5:13 AM EDT 02/09/2021 5:18 AM EDT Narrative Resulting Agency Comment Spec In Lab Yani Dumas MD HEMATOLOGY ORDERABL ES Performing Organization Address City/[facility]/ZIP Co de Phone Number [facility] [place] [address] * Hemogram (02/09/2021 5:13 AM EDT) White Blood Cell 8.4 4.0 - 9.5 x10(3)/[facility] Red Blood Cell 4.25 4.00 - 5.21 x10(6)/[facility] Hemoglobin 12.5 11.7 - 15.5 gm/dL [facility] Hematocrit 38.3 35.7 - 45.8 % [facility] Mean Cell Volume 90.1 82.6 - 94.4 fL [facility] Mean Cell Hemoglobin 29.4 27.1 - 32.0 pg [facility] Mean Cell Hemoglobin Concentration 32.6 31.7 - 35.0 gm/dL [facility] Platelet 147 145 - 357 x10(3)/[facility] RDW Standard Deviation 44.1 37.0 - 46.0 [facility] RDW coefficient of variation 13.4 11.5 - 14.1 % [facility] Mean Platelet Volume 11.2 7.6 - 12.9 fL [facility] NRBC% auto 0.0 % [facility] NRBC Absolute 0.000 0.000 - 0.000 x10(3)/[facility] Blood 02/09/2021 5:13 AM EDT 02/09/2021 5:18 AM EDT Narrative Resulting Agency Comment Spec In Lab Yani Dumas MD HEMATOLOGY ORDERABL ES [facility] [place] [address] * Vitamin D, 25-Hydroxy (02/09/2021 5:13 AM EDT) Vitamin D Total 25 OH 43 21 - 100 ng/mL [facility] Vit D Interp Sufficient [facility] Blood 02/09/2021 5:13 AM EDT 02/09/2021 5:18 AM EDT Narrative Resulting Agency Comment Spec In Lab Cami Sawyer Torito [place] CHEMISTRY ORDERABLES [facility] [place] [address] * (ABNORMAL) Basic Metabolic Panel (non-fasting) (02/09/2021 5:13 AM EDT) Glucose 140 65 - 199 mg/dL [facility] Comment:Diabetes: >=200 mg/d L plus symptoms Blood Urea Nitrogen 12 8 - 18 mg/dL [facility] Creatinine 0.92 0.70 - 1.20 mg/dL [facility] Sodium 141 135 - 145 mmol/L [facility] Potassium 3.8 3.5 - 5.0 mmol/L [facility] Comment: Please note: ??Patients with WBC >100,000 may have falsely elevated Potassium levels. ??For accurate Potassium quantification in these patients send serum separator tube (gold top) for subsequent determinations. ??Contact the Clinical Chemistry Laboratory if there are any questions. Chloride 110(H) 98 - 107 mmol/L [facility] Carbon Dioxide 21(L) 22 - 31 mmol/L [facility] Anion Gap 10 5 - 15 mmol/L [facility] Calcium 8.9 8.5 - 10.5 mg/dL [facility] Est Glomerular Filtration Rate 68 >=60 mL/min/1. 73 m?? [facility] Comment: This patient? s estimated glomerular filtration rate (eGFR) is between 68 mL/min/1.73 m2 (patients with less muscle mass) and 79 mL/min/1.73 m2 (patients with more muscle mass) [...] and symptoms in addition to eGFR. Blood 02/09/2021 5:13 AM EDT 02/09/2021 5:18 AM EDT Narrative Resulting Agency Comment Spec In Lab Edilma Mary MD CHEMISTRY ORDERABLES Performing Organization Address City/[facility]/ZIP Co de Phone Number [facility] [place] [address] * POCT Glucose (02/09/2021 4:44 AM EDT) Glucose, POC 131 65 - 199 mg/dL [facility] Comment: Supplemental ranges: <140 mg/dL before meals <180 mg/dL all other times of the day Blood 02/09/2021 4:44 AM EDT 02/09/2021 4:44 AM EDT Edilma Mary MD POINT OF CARE TEST O RDERABLES Performing Organization Address [facility]/ZIP Co de Phone Number [facility] [place] [address] * (ABNORMAL) POCT Glucose (02/08/2021 11:24 PM EDT) Glucose, POC 204(H) 65 - 199 mg/dL [facility] Comment: Supplemental ranges: <140 mg/dL before meals <180 mg/dL all other times of the day Blood 02/08/2021 11:2 4 PM EDT 02/08/2021 11:24 PM EDT Edilma Mary MD POINT OF CARE TEST O RDERABLES Performing Organization Address City/[facility]/ZIP Co de Phone Number [facility] [place] [address] * (ABNORMAL) POCT Glucose (02/08/2021 8:27 PM EDT) Glucose, POC 201(H) 65 - 199 mg/dL [facility] Comment: Supplemental ranges: <140 mg/dL before meals <180 mg/dL all other times of the day Blood 02/08/2021 8:27 PM EDT 02/08/2021 8:27 PM EDT Edilma Mary MD POINT OF CARE TEST O RDERABLES Performing Organization Address City/[facility]/ZIP Co de Phone Number [facility] [address] * (ABNORMAL) POCT Glucose (02/08/2021 4:20 PM EDT) Glucose, POC 225(H) 65 - 199 mg/dL [facility] Comment: Supplemental ranges: <140 mg/dL before meals <180 mg/dL all other times of the day Blood 02/08/2021 4:20 PM EDT 02/08/2021 4:20 PM EDT Edilma Mary MD POINT OF CARE TEST O RDERABLES Performing Organization Address [facility] Co de Phone Number [facility] [place] [address] * POCT Glucose (02/08/2021 12:11 PM EDT) Glucose, POC 186 65 - 199 mg/dL [facility] Comment: Supplemental ranges: <140 mg/dL before meals <180 mg/dL all other times of the day Blood 02/08/2021 12:1 1 PM EDT 02/08/2021 12:11 PM EDT Edilma Mary MD POINT OF CARE TEST O RDERABLES Performing Organization Address City/[facility] Co de Phone Number [facility] [place] [address] * Anaerobic Culture (02/08/2021 10:30 AM EDT) Anaerobic Culture No anaerobic organisms isolated [facility] Deep Wound ANKLE REGION STRUCTURE / Unknown 02/08/2021 10:30 AM EDT 02/08/2021 11:32 AM EDT Comment:SWAB ANKLE HARDWARE #3 Narrative Resulting Agency Comment Spec In Lab Henrry Quiñones MD MICROBIOLOGY - GENE RAL ORDERABLES Performing Organization Address [facility]/ZIP Co de Phone Number [facility] [place] [address] * (ABNORMAL) Abscess/Wound Aspirate Culture (02/08/2021 10:30 AM EDT) Abscess/Woun d Aspirate Culture Moderate Staphylococcus aureus : Susceptibilities previously reported Few Enterococcus faecalis : Susceptibilities previously reported (A) [facility] Gram Stain Few Neutrophils seen Rare Gram Positive Cocci seen (A) [facility] Organism Staphylococcus aureus(A) [facility] Organism Enterococcus faecalis(A) [facility] Organism Gram Positive Cocci(A) [facility] Deep Wound ANKLE REGION STRUCTURE / Unknown 02/08/2021 10:30 AM EDT 02/08/2021 11:32 AM EDT Comment:SWAB ANKLE HARDWARE #3 Narrative Resulting Agency Comment Spec In Lab Henrry Quiñones MD MICROBIOLOGY - GENE RAL ORDERABLES Performing Organization Address [facility]/ZIP Co de Phone Number [facility] [place] [address] * Anaerobic Culture (02/08/2021 10:30 AM EDT) Anaerobic Culture No anaerobic organisms isolated [facility] Deep Wound ANKLE REGION STRUCTURE / Unknown 02/08/2021 10:30 AM EDT 02/08/2021 11:33 AM EDT Comment:SWAB LEFT ANKLE HARD FER[place]US[place] #2 Narrative Resulting Agency Comment Spec In Lab Henrry Quiñones MD MICROBIOLOGY - GENE RAL ORDERABLES Performing Organization Address City/[facility]/ZIP Co de Phone Number [facility] [place] [address] * (ABNORMAL) Abscess/Wound Aspirate Culture (02/08/2021 10:30 AM EDT) Abscess/Woun d Aspirate Culture Many Staphylococcus aureus : Susceptibilities previously reported Many Enterococcus faecalis : Susceptibilities previously reported (A) [facility] Gram Stain Few Neutrophils seen Moderate Gram Positive Cocci (A) [facility] Organism Staphylococcus aureus(A) [facility] Organism Enterococcus faecalis(A) [facility] Deep Wound ANKLE REGION STRUCTURE / Unknown 02/08/2021 10:30 AM EDT 02/08/2021 11:33 AM EDT Comment:SWAB LEFT ANKLE HARD [place] #2 Narrative Resulting Agency Comment Spec In Lab Henrry Quiñones MD MICROBIOLOGY - GENE RAL ORDERABLES Performing Organization Address [facility]/ZIP Co de Phone Number [facility] [address] * Anaerobic Culture (02/08/2021 10:30 AM EDT) Anaerobic Culture No anaerobic organisms isolated [facility] Deep Wound ANKLE REGION STRUCTURE / Unknown 02/08/2021 10:30 AM EDT 02/08/2021 11:31 AM EDT Comment:SWAB LEFT ANKLE HARD [place] #1 Narrative Resulting Agency Comment Spec In Lab Henrry Quiñones MD MICROBIOLOGY - GENE RAL ORDERABLES [facility] [address] * (ABNORMAL) Abscess/Wound Aspirate Culture (02/08/2021 10:30 AM EDT) Abscess/Wound Aspirate Culture Many Staphylococcus aureus Many Enterococcus faecalis (A) [facility] Gram Stain Moderate Neutrophils Many Gram Positive Cocci seen (A) [facility] Organism Staphylococcus aureus(A) [facility] Organism Enterococcus faecalis(A) [facility] Organism Gram Positive Cocci(A) [facility] Deep Wound ANKLE REGION STRUCTURE / Unknown 02/08/2021 10:30 AM EDT 02/08/2021 11:31 AM EDT Comment:SWAB LEFT ANKLE HARD [place] #1 Narrative Resulting Agency Comment Spec In Lab Organism Antibiotic Method Susceptibility Staphylococcus aureus Cefazolin VITEK 2 METHOD Sensitive Staphylococcus aureus Ceftriaxone VITEK 2 METHOD Sensitive Staphylococcus aureus Clindamycin VITEK 2 METHOD Sensitive Staphylococcus aureus Erythromycin VITEK 2 METHOD Sensitive Staphylococcus aureus Gentamicin VITEK 2 METHOD Sensitive Comment:Gentamicin i s not appropriate for [place]-therapy. Staphylococcus aureus Oxacillin VITEK 2 METHOD Sensitive Comment: Oxacillin (methicillin) susceptibility is a surrogate for the oral and parenteral cephalosporins, beta-lactam combination agents (amoxicillin-clavulanate, ampicillin-sulbactam and piperacillin-tazobactam) and carbapenem agents. ??It is NOT a surrogate for penicillin, ampicillin or piperacillin susceptibility. Staphylococcus aureus Trimethoprim/Sulfa VITEK 2 METHO D Sensitive Staphylococcus aureus Tetracycline VITEK 2 METHOD Sensitive Staphylococcus aureus Vancomycin VITEK 2 METHOD Sensitive Enterococcus faecalis Ampicillin VITEK 2 METHOD Sensitive Enterococcus faecalis Erythromycin VITEK 2 METHOD Intermediate Enterococcus faecalis Gentamicin 500 VITEK 2 METHOD Sensitive Enterococcus faecalis Penicillin VITEK 2 METHOD Sensitive Enterococcus faecalis Streptomycin 1000 VITEK 2 METHOD Sensitive Enterococcus faecalis Vancomycin VITEK 2 METHOD Sensitive Henrry Quiñones MD MICROBIOLOGY - GENE RAL ORDERABLES [facility] [place] [address] * POCT Glucose (02/08/2021 7:57 AM EDT) Glucose, POC 141 65 - 199 mg/dL [facility] Comment: Supplemental ranges: <140 mg/dL before meals <180 mg/dL all other times of the day Blood 02/08/2021 7:57 AM EDT 02/08/2021 7:57 AM EDT Mark Chavez MD POINT OF CARE TEST O RDERABLES [facility] [place] [address] * POCT Glucose (02/08/2021 4:10 AM EDT) Pathologist [facility] Glucose, POC 164 65 - 199 mg/dL [facility] Comment: Supplemental ranges: <140 mg/dL before meals <180 mg/dL all other times of the day Blood 02/08/2021 4:10 AM EDT 02/08/2021 4:10 AM EDT Mark Chavez MD POINT OF CARE TEST O RDERABLES Performing Organization Address City/[facility]/ZIP Co de Phone Number [facility] [place] [address] * (ABNORMAL) Differential, Automated (02/08/2021 3:19 AM EDT) [facility] Neutrophil % 80.5 % [facility] Neutrophil Absolute 6.90(H) 1.70 - 6.10 x10(3)/mc L [facility] Lymph % 10.6 % [facility] Lymphocytes Abs 0.9 0.9 - 3.2 x10(3)/mc L [facility] Monocyte % 7.8 % [facility] Monocyte Abs 0.7 0.3 - 0.9 x10(3)/mc L [facility] Eos % 0.4 % [facility] Eosinophils Abs 0.0 0.0 - 0.4 x10(3)/mc L [facility] Basophil % 0.2 % [facility] Baso Absolute 0.0 0.0 - 0.1 x10(3)/mc L [facility] Immature Gran % 0.50 % [facility] Comment: Immature granulocytes(IG's)percentage and absolute count will include metamyelocytes, myelocytes, and promyelocytes. Blood smears from CBCs yielding IG's will be scanned manually for concordance. If this scan disagrees with the automated IG or if promyelocytes are noted, a manual differential will be performed. Immature Gran Absolute 0.04 0.00 - 0.04 x10(3)/mc L [facility] Blood 02/08/2021 3:19 AM EDT 02/08/2021 3:50 AM EDT Narrative Resulting Agency Comment Spec In Lab Mark Chavez MD HEMATOLOGY ORDERABLE S [facility] [place] [address] * Hemogram (02/08/2021 3:19 AM EDT) White Blood Cell 8.6 4.0 - 9.5 x10(3)/[facility] Red Blood Cell 4.45 4.00 - 5.21 x10(6)/[facility] Hemoglobin 13.0 11.7 - 15.5 gm/dL [facility] Hematocrit 39.7 35.7 - 45.8 % [facility] Mean Cell Volume 89.2 82.6 - 94.4 fL [facility] Mean Cell Hemoglobin 29.2 27.1 - 32.0 pg [facility] Mean Cell Hemoglobin Concentration 32.7 31.7 - 35.0 gm/dL [facility] Platelet 165 145 - 357 x10(3)/[facility] LAB[facility] RDW Standard Deviation 42.5 37.0 - 46.0 [facility] RDW coefficient of variation 13.1 11.5 - 14.1 % [facility] Mean Platelet Volume 11.6 7.6 - 12.9 [facility] NRBC% auto 0.0 % [facility] NRBC Absolute 0.000 0.000 - 0.000 x10(3)/[facility] Blood 02/08/2021 3:19 AM EDT 02/08/2021 3:50 AM EDT Narrative Resulting Agency Comment Spec In Lab Mark Chavez MD HEMATOLOGY ORDERABLE S [facility] [address] * (ABNORMAL) Hemoglobin A1c (02/08/2021 3:19 AM EDT) Hemoglobin A1c 7.9(H) 4.3 - 5.6 % [facility] Comment: Reference Range: 4.3 - 5.6% 5.7 - 6.4% - Increased Risk of Developing Diabetes Mellitus >= 6.5% - Consistent with diagnosis of Diabetes Mellitus In the absence of hyperglycemia (i.e. plasma glucose > 200 mg/dL) or classic symptoms of hyperglycemia a repeat measurement of HbA1c should be performed on a separate sample to confirm the diagnosis. Diagnosis and Classification of Diabetes Mellitus, Diabetes Care 2013; 36: Suppl. 1, S67-74 Estimated Average Glucose 181 mg/dL [facility] Comment: eAG equivalents for HbA1c percentages: HbA1c(%) ?eAG(mg/dL) 6.0 ?126 6.5 ?140 7.0 ?154 7.5 ?169 8.0 ?183 8.5 ?197 9.0 ?212 9.5 ?226 10.0 ? 240 Limitations: The eAG calculation has not been validated on women, individuals below 18 years old and above 70 years old, and individuals with hemoglobinopathies. Additional resources are available on the ADA website. Vinicius GARCIA, Jeannie J, Kinza R, et al. ??Translating the A1C assay into estimated average glucose values. ??Diabetes Care 2008:31(8):1292-5100. Blood 02/08/2021 3:19 AM EDT 02/08/2021 3:50 AM EDT Narrative Resulting Agency Comment Spec In Lab Mark Chavez MD CHEMISTRY ORDERABLES [facility] [place] [address] * Basic Metabolic Panel (non-fasting) (02/08/2021 3:19 AM EDT) Glucose 177 65 - 199 mg/dL [facility] Comment:Diabetes: >=200 mg/d L plus symptoms Blood Urea Nitrogen 13 8 - 18 mg/dL [facility] Creatinine 0.96 0.70 - 1.20 mg/dL [facility] Sodium 136 135 - 145 mmol/L [facility] Potassium 3.7 3.5 - 5.0 mmol/L [facility] Comment: Please note: ??Patients with WBC >100,000 may have falsely elevated Potassium levels. ??For accurate Potassium quantification in these patients send serum separator tube (gold top) for subsequent determinations. ??Contact the Clinical Chemistry Laboratory if there are any questions. Chloride 102 98 - 107 mmol/L [facility] Carbon Dioxide 23 22 - 31 mmol/L [facility] Anion Gap 11 5 - 15 mmol/L [facility] Calcium 9.0 8.5 - 10.5 mg/dL [facility] Est Glomerular Filtration Rate 65 >=60 mL/min/1. 73 m?? [facility] Comment: This patient? s estimated glomerular filtration rate (eGFR) is between 65 mL/min/1.73 m2 (patients with less muscle mass) and 75 mL/min/1.73 m2 (patients with more muscle mass) [...] and symptoms in addition to eGFR. Blood 02/08/2021 3:19 AM EDT 02/08/2021 3:50 AM EDT Narrative Resulting Agency Comment Spec In Lab Edilma Mary MD CHEMISTRY ORDERABLES Performing Organization Address City/[facility]/ZIP Co de Phone Number [facility] [address] * (ABNORMAL) POCT Glucose (02/08/2021 2:05 AM EDT) Glucose, POC 204(H) 65 - 199 mg/dL [facility] Comment: Supplemental ranges: <140 mg/dL before meals <180 mg/dL all other times of the day Blood 02/08/2021 2:05 AM EDT 02/08/2021 2:05 AM EDT Mark Chavez MD POINT OF CARE TEST O RDERABLES Performing Organization Address [facility]/ZIP Co de Phone Number [facility] [address] * (ABNORMAL) POCT Glucose (02/07/2021 11:47 PM EDT) Glucose, POC 267(H) 65 - 199 mg/dL [facility] Comment: Supplemental ranges: <140 mg/dL before meals <180 mg/dL all other times of the day Blood 02/07/2021 11:4 7 PM EDT 02/07/2021 11:47 PM EDT Mark Chavez MD POINT OF CARE TEST O RDERABLES Performing Organization Address City/[facility]/ZIP Co de Phone Number [facility] [place] [address] * (ABNORMAL) POCT Glucose (02/07/2021 10:07 PM EDT) Glucose, POC 311(H) 65 - 199 mg/dL [facility] Comment: Supplemental ranges: <140 mg/dL before meals <180 mg/dL all other times of the day Blood 02/07/2021 10:0 7 PM EDT 02/07/2021 10:07 PM EDT Mark Chavez MD POINT OF CARE TEST O VIKKI Performing Organization Address [facility] Co de Phone Number [facility] [place] [address] * (ABNORMAL) POCT Glucose (02/07/2021 8:51 PM EDT) Glucose, POC 254(H) 65 - 199 mg/dL [facility] Comment: Supplemental ranges: <140 mg/dL before meals <180 mg/dL all other times of the day Blood 02/07/2021 8:51 PM EDT 02/07/2021 8:51 PM EDT Mark Chavez MD POINT OF CARE TEST Jerrod FLOREZ Performing Organization Address [facility] de Phone Number [facility] [place] [address] * Blood culture (02/07/2021 7:37 PM EDT) Blood Culture No growth at 5 days. [facility] Blood 02/07/2021 7:37 PM EDT 02/07/2021 7:50 PM EDT Comment:L AC Narrative Resulting Agency Comment Spec In Lab Jacobo De La Cruz MD MICROBIOLOGY - BLOOD ORDERABLES Performing Organization Address [facility] Co de Phone Number [facility] [place] [address] * Blood culture (02/07/2021 6:55 PM EDT) Blood Culture No growth at 5 days. [facility] Blood 02/07/2021 6:55 PM EDT 02/07/2021 7:51 PM EDT Narrative Resulting Agency Comment Spec In Lab Jacobo De La Cruz MD MICROBIOLOGY - BLOOD ORDERABLES [facility] [place] [address] * Ab Comment (02/07/2021 6:50 PM EDT) Ab Information INTERPRETATION: A red cell alloantibody, anti-K, was identified in the patient specimen. ??This antibody can cause red cell hemolysis. Future units for transfusion will be negative for the K antigen and cross-match compatible at the antiglobulin phase. ??These additional steps will add about an hour to unit preparation time, but compatible units should be available in our inventory. Duglas Murphy MD, PhD Transfusion Medicine Service 02/09/21 21:44 [facility] Comment: DUGLAS MURPHY, Pathologist Verified:02/09/21 Blood 02/07/2021 6:50 PM EDT 02/07/2021 7:05 PM EDT Narrative Resulting Agency Comment Spec In Lab N[facility]ia DIALLO [facility] ORDE ANGELLAOMER Performing Organization Address City/[facility]/ZIP Co de Phone Number [facility] [place] [address] * Antibody identification (02/07/2021 6:50 PM EDT) Ab Identified Anti-K [facility] Blood 02/07/2021 6:50 PM EDT 02/07/2021 7:05 PM EDT Narrative Resulting Agency Comment Spec In Lab Nuvia DIALLO BLOOD [facility] LAB ORDE AMINTA [facility] [place] [address] * Type and Screen Validity (02/07/2021 6:50 PM EDT) T&S only valid at [facility] Comment:This Type and Screen result is only valid at the [facility] Blood 02/07/2021 6:50 PM EDT 02/07/2021 7:05 PM EDT Narrative Resulting Agency Comment Spec In Lab Nuvia DIALLO BLOOD BANK LAB ORDE AMINTA [facility] [place] [address] * ABORH Recheck Status (02/07/2021 6:50 PM EDT) ABORH Recheck Order Order Placed [facility] ABORH Type Recheck Complete [facility] Blood 02/07/2021 6:50 PM EDT 02/07/2021 7:05 PM EDT Narrative Resulting Agency Comment Spec In Lab Nuvia DIALLO [facility]LOOD [facility] LAB ORDE AMINTA [facility] [place] [address] * Antibody screen (02/07/2021 6:50 PM EDT) Ab Screen Interp Positive [facility] Expires at 2359 on: 02/10/2021 [facility] Blood 02/07/2021 6:50 PM EDT 02/07/2021 7:05 PM EDT Narrative Resulting Agency Comment Spec In Lab Nuvia DIALLO [facility]LOOD [facility] LAB ORDE AMINTA [facility] [place] [address] * ABO/Rh Typing (02/07/2021 6:50 PM EDT) ABORH Type O Neg CORRINE [facility] Blood 02/07/2021 6:50 PM EDT 02/07/2021 7:05 PM EDT Narrative Resulting Agency Comment Spec In Lab Nuvia DIALLO BLOOD BANK LAB ALMA LEMOS [facility] [place] [address] * CT Lower Extremity w Contrast Left (02/07/2021 5:51 PM EDT) Anatomical Region Laterality Modality Hip, Leg, Knee, Thigh, Ankle, Foot Left Computed Tomography 02/07/2021 5:48 PM EDT Impressions 02/07/2021 6:17 PM EDT Left lower extremity cellulitis extending from the distal tibia and fibula to the foot, with small abscess at the lateral malleolus. Thank you for letting us participate in the care of this patient. ??If you are a health care provider and have any questions regarding this report, please contact the number below. ??For patients who have questions please contact the health day care supervisor that requested your imaging first. ? Narrative 02/07/2021 6:17 PM EDT EXAMINATION: CT LOWER EXTREMITY W CONTRAST LEFT CLINICAL HISTORY: Lower leg swelling/redness, cellulitis suspected recent ankle fx s/p ORIF with infection of surgical site please include foot to below the knee TECHNIQUE: CT of the left lower extremity performed with intravenous contrast. 110 cc of Omnipaque 350 was used. COMPARISON: Correlation made with radiographs of the left ankle from February 07, 2021 FINDINGS: There is mild superficial subcutaneous soft tissue stranding beginning at the level of the distal third tibial diaphysis and extending inferiorly to include the soft tissues of the ankle and foot. Streak artifact from the distal tibia and fibula fixation hardware limits evaluation of the soft tissues about the ankle joint. Within these limits, there is a small ill-defined rim-enhancing collection adjacent to the distal aspect of the fibula, that measures approximately 2.7 x 1.9 cm, best seen on coronal series 9 image 67. No additional focal fluid collections are identified. No appreciable ankle joint effusion. The fixation hardware at the distal fibula and tibia is in unchanged alignment. Procedure Note Meli Gonzales MD - 02/07/2021 EXAMINATION: CT LOWER EXTREMITY W CONTRAST LEFT CLINICAL HISTORY: Lower leg swelling/redness, cellulitis suspected recent ankle fx s/p ORIF with infection of surgical site please includefoot to below the knee TECHNIQUE: CT of the left lower extremity performed with intravenous contrast. 110 ccof Omnipaque 350 was used. COMPARISON: Correlation made with radiographs of the left ankle from February 07, 2021 FINDINGS: There is mild superficial subcutaneous soft tissue stranding beginning atthe level of the distal third tibial diaphysis and extending inferiorly toinclude the soft tissues of the ankle and foot. Streak artifact from the distaltibia and fibula fixation hardware limits evaluation of the soft tissues aboutthe ankle joint. Within these limits, there is a small phs-fbhvjktzra-bwpsgoxfi collection adjacent to the distal aspect of the fibula, that measures approximately 2.7 x 1.9 cm, best seen on coronal series 9 image 67. No additional focal fluid collections are identified. No appreciable anklejoint effusion. The fixation hardware at the distal fibula and tibia is inunchanged alignment. IMPRESSION Left lower extremity cellulitis extending from the distal tibia and fibulato the foot, with small abscess at the lateral malleolus. Thank you for letting us participate in the care of this patient. If youare a health care provider and have any questions regarding this report,please contact the number below. For patients who have questions please contactthe health day care supervisor that requested your imaging first. Electronically signed by: Meli Gonzales MD, [facility]([phone]), at 02/07/2021 6:17 PM Mark Chavez MD IM CT ORDERABLES * XR Ankle Min 3 views Left (Generic) (02/07/2021 3:33 PM EDT) Anatomical Region Laterality Modality Ankle Left Digital Radiogra phy Impressions 02/07/2021 3:44 PM EDT Apparent incision and drainage laterally adjacent to open reduction internal fixation of the distal fibula. Lucency about the I and D site. Hardware appears grossly unremarkable. There is mottled gas in the soft tissues and induration of the soft tissues. Plantar spurring. CT may be useful to better assess the soft tissues relative to the osseous structures and internal. Thank you for letting us participate in the care of this patient. ??If you are a health care provider and have any questions regarding this report, please contact the number below. ??For patients who have questions please contact the health day care supervisor that requested your imaging first. ? Electronically signed by: Anthony Carrillo MD, [facility] ([phone]), at 02/07/2021 3:44 PM Narrative 02/07/2021 3:44 PM EDT EXAMINATION: XR ANKLE MIN 3 VIEWS LEFT (GENERIC) CLINICAL HISTORY: 60 years, Female fracture s/p wound no, now erythematous/painful and with drainage from incision site TECHNIQUE: AP, lateral, and oblique views of the left ankle 3 views LEFT ankle; (2 lateral views are obtained to include the entire. COMPARISON: None FINDINGS: Patient is status post open reduction internal fixation of the distal fibula with fusion of the syndesmosis of the tibia and fibula. There is minimal calcification of the posterior medial tibia. Prominent plantar spurring is demonstrated. The region of incision and drainage in the lateral tibia and fibula is indicated on the images. There is significant lucency in the soft tissues surrounding this region overlapping 2 plates in the posterior and lateral fibula. Distal to the fibula, there is somewhat mottled gas in the soft tissues. The AP and oblique views, demonstrate distinct soft tissue induration surrounding the postoperative ankle. There is somewhat mottled lucency and soft tissue induration in the region of Kagels fat pad. Procedure Note Anthony Carrilol MD - 02/07/2021 EXAMINATION: XR ANKLE MIN 3 VIEWS LEFT (GENERIC) CLINICAL HISTORY: 60 years, Female fracture s/p wound no, now erythematous/painful and with drainage from incision site TECHNIQUE: AP, lateral, and oblique views of the left ankle 3 views LEFT ankle; (2lateral views are obtained to include the entire. COMPARISON: None FINDINGS: Patient is status post open reduction internal fixation of the distalfibula with fusion of the syndesmosis of the tibia and fibula. There is minimal calcification of the posterior medial tibia. Prominent plantar spurringis demonstrated. The region of incision and drainage in the lateral tibia and fibula isindicated on the images. There is significant lucency in the soft tissuessurrounding this region overlapping 2 plates in the posterior and lateral fibula. Distal tothe fibula, there is somewhat mottled gas in the soft tissues. The AP andoblique views, demonstrate distinct soft tissue induration surrounding thepostoperative ankle. There is somewhat mottled lucency and soft tissue induration in the regionof Kagels fat pad. IMPRESSION Apparent incision and drainage laterally adjacent to open reductioninternal fixation of the distal fibula. Lucency about the I and D site. Hardware appears grossly unremarkable. There is mottled gas in the soft tissues and induration of the softtissues. Plantar spurring. CT may be useful to better assess the soft tissues relative to theosseous structures and internal. Thank you for letting us participate in the care of this patient. If youare a health care provider and have any questions regarding this report,please contact the number below. For patients who have questions please contactthe health day care supervisor that requested your imaging first. Electronically signed by: Anthony Carrillo MD, [facility]([phone]), at 02/07/2021 3:44 PM Kristian Colorado III, MD IMG DX ORDERABLES * Vitamin D, 25-Hydroxy (02/07/2021 3:03 PM EDT) [facility] Vitamin D Total 25 OH 55 21 - 100 ng/mL [facility] Vit D Interp Sufficient [facility] Blood Venous Draw / Unknown 02/07/2021 3:03 PM EDT 02/07/2021 3:14 PM EDT Narrative Resulting Agency Comment Spec In Lab Cami Ugarte APRN CHEMISTRY ORDERABLES [facility] [place] [address] * Green Tube HOLD (02/07/2021 3:03 PM EDT) [facility] Green Hold Sample in lab. [facility] Blood Venous Draw / Unknown 02/07/2021 3:03 PM EDT 02/07/2021 3:11 PM EDT Nuvia DIALLO CHEMISTRY ORDERABLE S [facility] [place] [address] * Gold Tube HOLD (02/07/2021 3:03 PM EDT) [facility] Gold Hold Sample in lab. [facility] Blood Venous Draw / Unknown 02/07/2021 3:03 PM EDT 02/07/2021 3:10 PM EDT Nuvia DIALLO CHEMISTRY ORDERABLE S [facility] [address] * (ABNORMAL) Differential, Automated (02/07/2021 3:03 PM EDT) [facility] Neutrophil % 90.7 % [facility] Neutrophil Absolute 8.98(H) 1.70 - 6.10 x10(3)/[facility] Lymph % 3.1 % [facility] Lymphocytes Abs 0.3(L) 0.9 - 3.2 x10(3)/[facility] Monocyte % 5.2 % [facility] Monocyte Abs 0.5 0.3 - 0.9 x10(3)/[facility] Eos % 0.2 % [facility] Eosinophils Abs 0.0 0.0 - 0.4 x10(3)/[facility] Basophil % 0.5 % [facility] Baso Absolute 0.0 0.0 - 0.1 x10(3)/[facility] Immature Gran % 0.30 % [facility] Comment: Immature granulocytes(IG's)percentage and absolute count will include metamyelocytes, myelocytes, and promyelocytes. Blood smears from CBCs yielding IG's will be scanned manually for concordance. If this scan disagrees with the automated IG or if promyelocytes are noted, a manual differential will be performed. Immature Gran Absolute 0.03 0.00 - 0.04 x10(3)/[facility] Blood 02/07/2021 3:03 PM EDT 02/07/2021 3:08 PM EDT Narrative Resulting Agency Comment Spec In Lab Nuvia DIALLO HEMATOLOGY ORDERABL ES [facility] [place] [address] * (ABNORMAL) Hemogram (02/07/2021 3:03 PM EDT) [facility] White Blood Cell 9.9(H) 4.0 - 9.5 x10(3)/[facility] Red Blood Cell 4.77 4.00 - 5.21 x10(6)/mc L [facility] Hemoglobin 13.8 11.7 - 15.5 gm/dL [facility] Hematocrit 41.8 35.7 - 45.8 % [facility] Mean Cell Volume 87.6 82.6 - 94.4 fL [facility] Mean Cell Hemoglobin 28.9 27.1 - 32.0 pg [facility] Mean Cell Hemoglobin Concentration 33.0 31.7 - 35.0 gm/dL [facility] Platelet 170 145 - 357 x10(3)/mc L [facility] RDW Standard Deviation 41.8 37.0 - 46.0 fL [facility] RDW coefficient of variation 12.9 11.5 - 14.1 % [facility] Mean Platelet Volume 11.2 7.6 - 12.9 fL [facility] NRBC% auto 0.0 % [facility] NRBC Absolute 0.000 0.000 - 0.000 x10(3)/mc L [facility] Blood 02/07/2021 3:03 PM EDT 02/07/2021 3:08 PM EDT Narrative Resulting Agency Comment Spec In Lab Nuvia DIALLO HEMATOLOGY ORDERABL ES Performing Organization Address City/[facility]/ZIP Co de Phone Number [facility] [address] * (ABNORMAL) CRP, acute inflammation (02/07/2021 3:03 PM EDT) C-Reactive Protein >300.0(H) <=4.9 mg/L [facility] Blood 02/07/2021 3:03 PM EDT 02/07/2021 3:13 PM EDT Narrative Resulting Agency Comment Spec In Lab Kristian Colorado III, MD CHEMISTRY ORDERABL ES [facility] [address] * (ABNORMAL) Sedimentation rate (02/07/2021 3:03 PM EDT) Sedimentation Rate Automated 58(H) 2 - 39 mm/hr [facility] Comment: Effective August 01, 2019 new capillary photometric technology has resulted in a change in reference ranges. It is recommended that each ESR result be reviewed with its own age appropriate reference range. Blood 02/07/2021 3:03 PM EDT 02/07/2021 3:08 PM EDT Narrative Resulting Agency Comment Spec In Lab Kristian Colorado III, MD HEMATOLOGY ORDERAB LES [facility] [address] * (ABNORMAL) Basic Metabolic Panel (non-fasting) (02/07/2021 3:03 PM EDT) Glucose 315(H) 65 - 199 mg/dL [facility] Comment:Diabetes: >=200 mg/d L plus symptoms Blood Urea Nitrogen 12 8 - 18 mg/dL [facility] Creatinine 1.00 0.70 - 1.20 mg/dL [facility] Sodium 135 135 - 145 mmol/L [facility] Potassium 4.1 3.5 - 5.0 mmol/L [facility] Comment: Please note: ??Patients with WBC >100,000 may have falsely elevated Potassium levels. ??For accurate Potassium quantification in these patients send serum separator tube (gold top) for subsequent determinations. ??Contact the Clinical Chemistry Laboratory if there are any questions. Chloride 102 98 - 107 mmol/L [facility] Carbon Dioxide 22 22 - 31 mmol/L [facility] Anion Gap 11 5 - 15 mmol/L [facility] Calcium 9.3 8.5 - 10.5 mg/dL [facility] Est Glomerular Filtration Rate 62 >=60 mL/min/1. 73 m?? [facility] Comment: This patient? s estimated glomerular filtration rate (eGFR) is between 62 mL/min/1.73 m2 (patients with less muscle mass) and 71 mL/min/1.73 m2 (patients with more muscle mass) [...] and symptoms in addition to eGFR. Blood 02/07/2021 3:03 PM EDT 02/07/2021 3:13 PM EDT Narrative Resulting Agency Comment Spec In Lab Kristian Colorado III, MD CHEMISTRY ORDERABL ES [facility] [place] [address] documented in this encounter Visit Diagnoses Diagnosis S/P Left ankle I&D for abscess and wound dehiscence, 02/08/21 (Dr Quiñones) and 02/10/21 (Dr De La Cruz); 02/12 + 02/14 ( Dr. Capellan)- Primary Cellulitis and abscess of leg, except foot Abscess of ankle Cellulitis and abscess of leg, except foot Ankle abscess Cellulitis and abscess of leg, except foot S/P Left ankle I&D for abscess and wound dehiscence, 02/08/21 (Dr Quiñones) and 02/10/21 (Dr De La Cruz); 02/12 + 02/14 ( Dr. Capellan) Cellulitis and abscess of leg, except foot Wound infection after surgery Other postoperative infection Wound infection complicating hardware, sequela Closed fracture of left ankle with routine healing documented in this encounter Admitting Diagnoses Diagnosis Ankle abscess Cellulitis and abscess of leg, except foot documented in this encounter Administered Medications Inactive Administered Medications - up to 3 most recent administrations Medication Order MAR Action Action Date Dose Rate Site acetaminophen (Tylenol) tablet 1,000 mg 1,000 mg, Oral, ONCE, 1 dose, On 02/07/21 at 2044, Maximum dose of acetaminophen is 4000 mg from all sources in 24 hours. When ordered for pain, acetaminophen should be given even when other ordered pain medications are indicated. , STAT Given 02/07/2021 8:08 PM EDT 1,000 mg acetaminophen (Tylenol) tablet 1,000 mg 1,000 mg, Oral, EVERY 8 HOURS SCHEDULED, First dose (after last modification) on 02/08/21 at 1400, Until Discontinued, Administer for temperature greater than or equal to 38.2 degrees celsius. Maximum daily dose of acetaminophen from all sources not to exceed 3,000 mg. When ordered for pain, acetaminophen should be given even when other ordered pain medications are indicated., Routine Given 02/18/2021 2:23 PM EDT 1,000 mg Given 02/18/2021 5:39 AM EDT 1,000 mg Given 02/17/2021 10:06 PM EDT 1,000 mg acetaminophen (Tylenol) tablet 650 mg 650 mg, Oral, EVERY 6 HOURS PRN, Starting on 02/07/21 at 2159, Until 02/08/21 at 0810, Pain, Fever, Administer for temperature greater than or equal to 38.2 degrees celsius. Maximum daily dose of acetaminophen from all sources not to exceed 4,000 mg. When ordered for pain, acetaminophen should be given even when other ordered pain medications are indicated., Routine Given 02/08/2021 4:14 AM EDT 650 mg aspirin EC tablet 81 mg 81 mg, Oral, DAILY, First dose on 02/08/21 at 0900, Until Discontinued, Routine Given 02/18/2021 8:47 AM EDT 81 mg Given 02/17/2021 8:47 AM EDT 81 mg Given 02/16/2021 8:20 AM EDT 81 mg buPROPion XL (Wellbutrin XL) tablet 150 mg 150 mg, Oral, EVERY MORNING, First dose on 02/08/21 at 0700, Until Discontinued, DO NOT CRUSH OR OPEN, Routine Given 02/18/2021 8:47 AM EDT 150 mg Given 02/17/2021 8:46 AM EDT 150 mg Given 02/16/2021 6:00 AM EDT 150 mg calcium carbonate (Tums) chewable tablet 1,250 mg 1,250 mg, Oral, DAILY, First dose on 02/08/21 at 0900, Until Discontinued Given 02/18/2021 8:45 AM EDT 1,250 mg Given 02/16/2021 8:21 AM EDT 1,250 mg Given 02/15/2021 8:13 AM EDT 1,250 mg cyclobenzaprine (Flexeril) tablet 10 mg 10 mg, Oral, 3 TIMES DAILY PRN, Starting on 02/07/21 at 2159, Until Tue02/18/21 at 2107, Muscle spasms, Routine Given 02/17/2021 8:54 AM EDT 10 mg Given 02/15/2021 1:06 AM EDT 10 mg Given 02/08/2021 2:13 AM EDT 10 mg DAPTOmycin (Cubicin) 700 mg in sodium chloride 0.9% 64 mL 700 mg, Intravenous, at 128 mL/hr, EVERY 24 HOURS, First dose on 02/14/21 at 2100, Until Discontinued, Routine, Indication for (Active or Suspected): Bone/Joint, Restricted Antibiotic: Please indicate the most appropriate choice: ID Approval by Gustabo Murray [place] 02/17/2021 8:51 PM EDT 700 mg 128 mL/hr New Bag 02/16/2021 8:14 PM EDT 700 mg 128 mL/hr New Bag 02/15/2021 8:49 PM EDT 700 mg 128 mL/hr DAPTOmycin (Cubicin) 700 mg in sodium chloride 0.9% 64 mL 700 mg, Intravenous, at 128 mL/hr, EVERY 24 HOURS, First dose (after last modification) on Tue02/18/21 at 1600, Until Discontinued, Routine, Indication for (Active or Suspected): Bone/Joint, Restricted Antibiotic: Please indicate the most appropriate choice: ID Approval by Gustabo [email or web address] New Bag 02/18/2021 4:00 PM EDT 700 mg 128 mL/hr dextrose 10% infusion 250 mL, at 1,000 mL/hr, Intravenous, EVERY 30 MIN PRN, Starting on 02/07/21 at 2159, Until Tue02/18/21 at 210, For BG 50-70 mg/dL: Oral treatment preferred:?? [...] 40 mg, Subcutaneous, NIGHTLY, First dose on 02/07/21 at 2245, Until Discontinued, Routine Given 02/17/2021 8:35 PM EDT 40 mg Abdominal Tissue Given 02/16/2021 8:13 PM EDT 40 mg Given 02/15/2021 8:43 PM EDT 40 mg folic acid (Folvite) tablet 1,000 mcg 1,000 mcg (1 mg), Oral, DAILY, First dose on 02/08/21 at 0900, Until Discontinued, Routine Given 02/18/2021 8:47 AM EDT 1,000 mcg Given 02/17/2021 8:47 AM EDT 1,000 mcg Given 02/16/2021 8:21 AM EDT 1,000 mcg gabapentin (Neurontin) capsule 300 mg 300 mg, Oral, 3 TIMES DAILY, First dose on 02/07/21 at 2245, Until Discontinued, Routine Given 02/18/2021 2:23 PM EDT 300 mg Given 02/18/2021 8:47 AM EDT 300 mg Given 02/17/2021 8:39 PM EDT 300 mg glucagon (Glucagen) (1 mg/mL) injection solution 1 mg 1 mg, Intramuscular, EVERY 30 MIN PRN, Starting on 02/07/21 at 2159, Until 02/18/21 at 2107, Low blood sugar, For BG 50-70 mg/dL: [...] the duration of the active insulin., Routine glucose (GLUTOSE) 40% oral geL 15-30 g, Buccal, EVERY 30 MIN PRN, Starting on 02/07/21 at 2159, Until 02/18/21 at 2107, Low blood sugar, For BG 50-70 mg/dL: [...] weight of tube = 37.5 grams., Routine HYDROmorphone (Dilaudid) (1 mg/mL) injection syringe 0.5 mg 0.5 mg, Intravenous, EVERY 4 HOURS PRN, Starting on 02/07/21 at 2159, Until 02/08/21 at 1448, Pain, Routine Given 02/07/2021 11:18 PM EDT 0.5 mg HYDROmorphone (Dilaudid) (1 mg/mL) injection syringe 0.5 mg 0.5 mg, Intravenous, ONCE, 1 dose, On 02/15/21 at 0300, Routine Given 02/15/2021 2:23 AM EDT 0.5 mg HYDROmorphone (Dilaudid) (2 mg/mL) multi-dose injection solution 0.2-0.4 mg 0.2-0.4 mg, Intravenous, EVERY 10 MIN PRN, Starting on 02/10/21 at 1035, Until 02/10/21 at 1139, Pain, Give 0.2 mg every 10 minutes PRN for mild to moderate pain (1-5) Give 0.4 mg every 10 minutes PRN for moderate to severe pain (6-10). Hold for respiratory rate less than 10 per minute. Maximum dose 3 mg over one hour, including OR administration. If multiple pain medications are ordered, start with HYDROmorphone or morphine and use fentaNYL for breakthrough pain., PACU Recovery, Routine Given 02/10/2021 10:48 AM EDT 0.2 mg HYDROmorphone (Dilaudid) (2 mg/mL) multi-dose injection solution 0.4-0.6 mg 0.4-0.6 mg, Intravenous, EVERY 10 MIN PRN, Starting on Priya 02/12/21 at 1756, Until Priya 02/12/21 at 1833, Pain, Give 0.4 mg every 10 minutes PRN for mild to moderate pain (1-5) Give 0.6 mg every 10 minutes PRN for moderate to severe pain (6-10). Hold for respiratory rate less than 10 per minute. Maximum dose 4 mg over one hour, including OR administration. If multiple pain medications are ordered, start with HYDROmorphone or morphine and use fentaNYL for breakthrough pain., PACU Recovery, Routine Given 02/12/2021 6:22 PM EDT 0.2 mg Given 02/12/2021 6:04 PM EDT 0.6 mg hydrOXYzine (Atarax) tablet 50 mg 50 mg, Oral, 2 TIMES DAILY, First dose on Tue02/07/21 at 2245, Until Discontinued Given 02/08/2021 8:50 AM EDT 50 mg Given 02/07/2021 11:10 PM EDT 50 mg hydrOXYzine (Atarax) tablet 50 mg 50 mg, Oral, 2 TIMES DAILY PRN, Starting on Tue02/08/21 at 1500, Until Tue02/18/21 at 2107, Itching, Anxiety insulin glargine (Lantus) (100 unit/mL) subcutaneous injection vial 20 Units 20 Units, Subcutaneous, NIGHTLY, First dose on Tue02/07/21 at 2245, Until Discontinued, Routine Given 02/17/2021 8:34 PM EDT 20 Units Abdominal Tissue Given 02/16/2021 8:13 PM EDT 20 Units Given 02/15/2021 8:42 PM EDT 20 Units insulin lispro (HumaLOG;Admelog) (100 unit/mL) subcutaneous injection vial 0-8 Units 0-8 Units, Subcutaneous, 3 TIMES DAILY WITH MEALS, First dose on Tue02/11/21 at 0845, Until Discontinued, [employer] Give 1 unit for every 10 grams carbohydrate. Hold if not eating or if BG less than 70 mg/dL., Routine Given 02/18/2021 12:48 PM EDT 4 Units Given 02/18/2021 8:44 AM EDT 5 Units Given 02/17/2021 6:21 PM EDT 4 Units insulin lispro (HumaLOG;Admelog) (100 unit/mL) subcutaneous injection vial 1-4 Units 1-4 Units, Subcutaneous, EVERY 4 HOURS SCHEDULED, First dose on Tue02/07/21 at 2000, Until Discontinued, CORRECTION BOLUS [1-4 Units] Sensitive Sliding Scale (BG in mg/dL): Correction factor 40 (1 unit of insulin is expected to drop the glucose 40 mg/dL) BG 160 - 200 Give 1 unit BG 201 - 240 Give 2 units BG 241 - 280 Give 3 units BG greater than 280, give 4 units and recheck BG in 2 hours. - If recheck BG is LESS than 280, give no insulin and resume schedule - If recheck BG is GREATER than 280, give 4 units and repeat BG in 2 hours (no more than 3 times) & call for new insulin orders. DO NOT hold if NPO, unless specifically directed to do so by written order. Per Blood Glucose Monitoring Policy, re-check a BG of > 240 mg/dL in 2 hours., Routine Given 02/07/2021 9:10 PM EDT 3 Units insulin lispro (HumaLOG;Admelog) (100 unit/mL) subcutaneous injection vial 1-4 Units 1-4 Units, Subcutaneous, EVERY 4 HOURS SCHEDULED, First dose on Tue02/08/21 at 0000, Until Discontinued, CORRECTION BOLUS [1-4 Units] Sensitive Sliding Scale (BG in mg/dL): Correction factor 40 (1 unit of insulin is expected to drop the glucose 40 mg/dL) BG 160 - 200 Give 1 unit BG 201 - 240 Give 2 units BG 241 - 280 Give 3 units BG greater than 280, give 4 units and recheck BG in 2 hours. - If recheck BG is LESS than 280, give no insulin and resume schedule - If recheck BG is GREATER than 280, give 4 units and repeat BG in 2 hours (no more than 3 times) & call for new insulin orders. DO NOT hold if NPO, unless specifically directed to do so by written order. Per Blood Glucose Monitoring Policy, re-check a BG of > 240 mg/dL in 2 hours., Routine Given 02/11/2021 4:12 AM EDT 3 Units Given 02/11/2021 12:15 AM EDT 1 Units Given 02/10/2021 9:22 PM EDT 2 Units insulin lispro (HumaLOG;Admelog) (100 unit/mL) subcutaneous injection vial 1-6 Units 1-6 Units, Subcutaneous, 4 TIMES DAILY BEFORE MEALS & NIGHTLY, First dose on Tue02/11/21 at 0845, Until Discontinued, CORRECTION BOLUS [1-6 Units] Moderate [...] 240 mg/dL in 2 hours., Routine Given 02/18/2021 4:01 PM EDT 5 Units Given 02/18/2021 12:15 PM EDT 3 Units Given 02/18/2021 8:42 AM EDT 5 Units iohexoL (Omnipaque) (350 mg/mL) injection solution 0-200 mL 0-200 mL, Intravenous, ONCE PRN, 1 dose, Starting on 02/07/21 at 1751, Until 02/07/21 at 1752, Per Protocol, Warning Vesicant/Irritant Medication , Radiology Contrast, Routine Given 02/07/2021 5:52 PM EDT 110 mLs iohexoL (Omnipaque) (350 mg/mL) injection solution 0-200 mL 0-200 mL, Intravenous, ONCE PRN, 1 dose, Starting on 02/16/21 at 1549, Until 02/16/21 at 1549, Per Protocol, Warning Vesicant/Irritant Medication , Radiology Contrast, Routine Given 02/16/2021 3:49 PM EDT 110 mLs levothyroxine (Synthroid) tablet 50 mcg 50 mcg, Oral, EVERY MORNING, First dose on 02/08/21 at 0600, Until Discontinued, Routine Given 02/18/2021 5:39 AM EDT 50 mcg Given 02/17/2021 5:52 AM EDT 50 mcg Given 02/16/2021 6:00 AM EDT 50 mcg lidocaine (Lidoderm) 5% topical patch 3 patch 3 patch, Transdermal, EVERY 24 HOURS, First dose on Tue02/08/21 at 0900, Until Discontinued, Apply patch(es) for 12 hours, and then remove for 12 hours., Routine lidocaine (Lidoderm) topical patch REMOVAL Transdermal, EVERY 24 HOURS, First dose on 02/08/21 at 2015, Until Discontinued, Remove lidocaine 5% patch losartan (Cozaar) tablet 25 mg 25 mg, Oral, DAILY, First dose on 02/08/21 at 0900, Until Discontinued, Routine Given 02/18/2021 8:47 AM EDT 25 mg Given 02/17/2021 8:47 AM EDT 25 mg Given 02/16/2021 8:20 AM EDT 25 mg magnesium hydroxide (Milk of Magnesia) (240 mg/mL) oral liquid 30 mL 30 mL, Oral, DAILY PRN, Starting on Tue02/08/21 at 1539, Until Tue02/18/21 at 2107, Constipation, if no BM in past 24h, 10 mL concentrate = 30 mL regular, Routine multivitamin with minerals (THERA-M) tablet 1 tablet 1 tablet, Oral, DAILY, First dose on Tue02/08/21 at 0900, Until Discontinued, Routine Given 02/18/2021 8:46 AM EDT 1 tablet Given 02/17/2021 8:47 AM EDT 1 tablet Given 02/16/2021 8:19 AM EDT 1 tablet ondansetron (pf) (Zofran) (2 mg/mL) injection 4-8 mg 4-8 mg, Intravenous, EVERY 8 HOURS PRN, Starting on 02/07/21 at 2159, Until Tue02/18/21 at 2107, Nausea, Start with 4mg and if ineffective in 30 minutes, give an additional 4mg If multiple antiemetics are ordered, give ondansetron first. ondansetron (Zofran) tablet 4-8 mg 4-8 mg, Oral, EVERY 8 HOURS PRN, Starting on 02/07/21 at 2159, Until Tue02/18/21 at 2107, Nausea, Vomiting, If multiple antiemetics are ordered, use ondansetron first. PO Preferred. If patient unable to take PO, may give IV if ordered. Start with 4mg and if ineffective in 45 minutes, give an additional 4mg. If unable to take PO, may give IV., Routine oxyCODONE (Roxicodone) tablet 10-15 mg 10-15 mg, Oral, EVERY 4 HOURS PRN, Starting on 02/17/21 at 2348, Until Tue02/18/21 at 2107, Pain, severe pain (7-10), Initial dose 10mg. If pain control not adequate in 60 minutes, give additional 5mg, Routine oxyCODONE (Roxicodone) tablet 5 mg 5 mg, Oral, ONCE, 1 dose, On 02/07/21 at 2044, STAT Given 02/07/2021 9:09 PM EDT 5 mg oxyCODONE (Roxicodone) tablet 5 mg 5 mg, Oral, EVERY 4 HOURS PRN, Starting on Tue02/08/21 at 1507, Until Tue02/17/21 at 2348, Pain, pain >6/10 not improved by non-narcotic options, Routine Given 02/17/2021 8:38 PM EDT 5 mg Given 02/17/2021 3:41 PM EDT 5 mg Given 02/17/2021 10:25 AM EDT 5 mg oxyCODONE (Roxicodone) tablet 5-10 mg 5-10 mg, Oral, EVERY 4 HOURS PRN, Starting on Tue02/17/21 at 2348, Until Tue02/18/21 at 2107, Pain, moderate pain (4-6), Initial dose 5mg. If pain control not adequate in 60 minutes, give additional 5mg, Routine Given 02/18/2021 5:39 AM EDT 5 mg Given 02/18/2021 12:00 AM EDT 10 mg pantoprazole EC (Protonix) tablet 40 mg 40 mg, Oral, DAILY, First dose on Tue02/08/21 at 0900, Until Discontinued, DO NOT CRUSH OR OPEN, Routine Given 02/18/2021 8:47 AM EDT 40 mg Given 02/17/2021 8:46 AM EDT 40 mg Given 02/16/2021 8:19 AM EDT 40 mg polyethylene glycoL (Miralax) packet 17 g 17 g, Oral, DAILY, First dose on Tue02/08/21 at 1630, Until Discontinued, Hold for loose stools please! Thanks!, Routine Given 02/09/2021 8:32 AM EDT 17 g senna-docusate (Pericolace) 8.6-50 mg per tablet 2 tablet 2 tablet, Oral, 2 TIMES DAILY, First dose on Tue02/08/21 at 2100, Until Discontinued, Hold for loose stools please! Thanks!, Routine Given 02/17/2021 8:38 PM EDT 2 tablets Given 02/16/2021 8:13 PM EDT 2 tablets Given 02/16/2021 8:19 AM EDT 2 tablets sertraline (Zoloft) tablet 200 mg 200 mg, Oral, DAILY, First dose on 02/08/21 at 0900, Until Discontinued, Routine Given 02/18/2021 8:48 AM EDT 200 mg Given 02/17/2021 8:54 AM EDT 200 mg Given 02/16/2021 8:21 AM EDT 200 mg sodium chloride 0.9 % (flush) flush 5 mL 5 mL, Intravenous, 2 TIMES DAILY, First dose on 02/07/21 at 2245, Until Discontinued, Routine Given 02/18/2021 8:53 AM EDT 5 mLs Given 02/17/2021 8:51 PM EDT 5 mLs Given 02/17/2021 8:48 AM EDT 5 mLs sodium chloride 0.9% infusion 75 mL/hr, Intravenous, CONTINUOUS, Starting on 02/07/21 at 2245, Until Tue02/08/21 at 1448 New Bag 02/07/2021 10:19 PM EDT 75 mL/hr 75 mL/hr topiramate (Topamax) tablet 100 mg 100 mg, Oral, 2 TIMES DAILY, First dose on 02/07/21 at 2245, Until Discontinued, DO NOT SPLIT, CRUSH OR OPEN, Routine Given 02/18/2021 8:48 AM EDT 100 mg Given 02/17/2021 8:39 PM EDT 100 mg Given 02/17/2021 8:45 AM EDT 100 mg vancomycin (Vancocin) 1 gram in sodium chloride 0.9% 250 mL infusion 1 g, Intravenous, at 250 mL/hr, EVERY 12 HOURS, First dose (after last modification) on Tue02/11/21 at 0200, Until Discontinued, Maximum infusion rate is 1 gram/hour. If flushing of the face, neck, upper body, arms, and/or back occurs decrease infusion rate by 50% to reduce the severity of symptoms. This medication may have an associated drug lab level. Please see MAR for scheduled level. Warning Vesicant/Irritant Medication , Routine, Indication for (Active or Suspected): Bone/Joint New Bag 02/14/2021 2:54 AM EDT 1 g 250 mL/h r New Bag 02/13/2021 4:30 PM EDT 1 g 250 mL/hr New Bag 02/13/2021 3:13 AM EDT 1 g 250 mL/hr vancomycin (Vancocin) 2 gram in sodium chloride 0.9% 500 mL infusion 2,000 mg, Intravenous, at 250 mL/hr, ONCE, 1 dose, On Tue02/09/21 at 0000, Maximum infusion rate is 1 gram/hour. If flushing of the face, neck, upper body, arms, and/or back occurs decrease infusion rate by 50% to reduce the severity of symptoms. This medication may have an associated drug lab level. Please see MAR for scheduled level. Warning Vesicant/Irritant Medication , Routine, Indication for (Active or Suspected): Bone/Joint New Bag 02/08/2021 11:47 PM EDT 2,000 mg 250 mL/hr vancomycin (Vancocin) 750 mg in sodium chloride 0.9% 250 mL infusion 750 mg, Intravenous, at 333.3 mL/hr, EVERY 12 HOURS, First dose on Tue02/09/21 at 1200, Until Discontinued, Maximum infusion rate is 1 gram/hour. If flushing of the face, neck, upper body, arms, and/or back occurs decrease infusion rate by 50% to reduce the severity of symptoms. This medication may have an associated drug lab level. Please see MAR for scheduled level. Warning Vesicant/Irritant Medication , Routine, Indication for (Active or Suspected): Bone/Joint New Bag 02/10/2021 2:21 PM EDT 750 mg 333.3 mL/hr New Bag 02/10/2021 2:07 AM EDT 750 mg 333.3 mL/hr New Bag 02/09/2021 11:50 AM EDT 750 mg 333.3 mL/hr documented in this encounter Active and Recently Administered Medications Times are shown in EDT. Scheduled Medication Order 02/16/2021 02/17/2021 02/18/2021 acetaminophen (Tylenol) tablet 1,000 mg 1,000 mg, Oral, EVERY 8 HOURS SCHEDULED, First dose (after last modification) on Tue02/08/21 at 1400, Until Discontinued, Administer for temperature greater than or equal to 38.2 degrees celsius. Maximum daily dose of acetaminophen from all sources not to exceed 3,000 mg. When ordered for pain, acetaminophen should be given even when other ordered pain medications are indicated., Routine 0600 (Given - Provider: Anita Sosa RN)1418 (Given - Provider: Cynthia Tadeo, SUNIL)2124 (Given - Provider: Juani Kang V RN) 0551 (Given - Provider: Madeline Salomon, RN)1315 (Given - Provider: Sherwin Hermosillo, SUNIL)2206 (Given - Provider: Elle Escalante, RN) 0539 (Given - Provider: Elle Escalante, RN)1423 (Given - Provider: Kelsie Herbert, SUNIL) aspirin EC tablet 81 mg 81 mg, Oral, DAILY, First dose on 02/08/21 at 0900, Until Discontinued, Routine 0820 (Given - Provider: Cynthia Tadeo, SUNIL) 0847 (Given - Provider: Sherwin Hermosillo RN) 0847 (Given - Provider: Kelsie Herbert RN) buPROPion XL (Wellbutrin XL) tablet 150 mg 150 mg, Oral, EVERY MORNING, First dose on 02/08/21 at 0700, Until Discontinued, DO NOT CRUSH OR OPEN, Routine 0600 (Given - Provider: Anita Sosa RN) 0846 (Given - Provider: Sherwin Hermosillo RN) 0847 (Given - Provider: Kelsie Herbetr, SUNIL) calcium carbonate (Tums) chewable tablet 1,250 mg 1,250 mg, Oral, DAILY, First dose on 02/08/21 at 0900, Until Discontinued 0821 (Given - Provider: Cynthia Tadeo, SUNIL) 0848 (Not Given - Provider: Sherwin Hermosillo RN - Reason: Patient/family refused) 0845 (Given - Provider: Kelsie Herbert RN) DAPTOmycin (Cubicin) 700 mg in sodium chloride 0.9% 64 mL (CANCELED) 700 mg, Intravenous, at 128 mL/hr, EVERY 24 HOURS, First dose on 02/14/21 at 2100, Until Discontinued, Routine, Indication for (Active or Suspected): Bone/Joint, Restricted Antibiotic: Please indicate the most appropriate choice: ID Approval by Gustabo Murray 2014 (New Bag - Provider: Juani Sanchez RN)[id number] (Stopped - Provider: Juani Sanchez RN) 2050 (New Bag - Provider: Elle Escalante, SUNIL)2202 (Stopped - Provider: Elle Escalante RN) DAPTOmycin (Cubicin) 700 mg in sodium chloride 0.9% 64 mL 700 mg, Intravenous, at 128 mL/hr, EVERY 24 HOURS, First dose (after last modification) on Tue02/18/21 at 1600, Until Discontinued, Routine, Indication for (Active or Suspected): Bone/Joint, Restricted Antibiotic: Please indicate the most appropriate choice: ID Approval by Gustabo Murray 1600 (New Bag - Provider: Kelsie Herbert RN)1630 (Stopped - Provider: Kelsie Herbert RN) enoxaparin (Lovenox) (40 mg/0.4 mL) subcutaneous injection 40 mg 40 mg, Subcutaneous, NIGHTLY, First dose on Tue02/07/21 at 2245, Until Discontinued, Routine 2012 (Given - Provider: Juani Sanchez RN) 2034 (Given - Provider: Elle Escalante RN) folic acid (Folvite) tablet 1,000 mcg 1,000 mcg (1 mg), Oral, DAILY, First dose on Tue02/08/21 at 0900, Until Discontinued, Routine 0821 (Given - Provider: Cynthia Tadeo RN) 0847 (Given - Provider: Sherwin Hermosillo RN) 0847 (Given - Provider: Kelsie Herbert RN) gabapentin (Neurontin) capsule 300 mg 300 mg, Oral, 3 TIMES DAILY, First dose on Tue02/07/21 at 2245, Until Discontinued, Routine 0819 (Given - Provider: Cynthia Tadeo RN)1418 (Given - Provider: Cynthia Tadeo, SUNIL)2013 (Given - Provider: Juani Sanchez RN) 0847 (Given - Provider: Sherwin Hermosillo RN)153 (Given - Provider: Sherwin Hermosillo RN)2038 (Given - Provider: Elle Escalante RN) 0847 (Given - Provider: Kelsie Herbert RN)1423 (Given - Provider: Kelsie Herbert RN) insulin glargine (Lantus) (100 unit/mL) subcutaneous injection vial 20 Units 20 Units, Subcutaneous, NIGHTLY, First dose on Tue02/07/21 at 2245, Until Discontinued, Routine 2012 (Given - Provider: Juani Kang V RN) 2033 (Given - Provider: Elle Escalante, SUNIL) insulin lispro (HumaLOG;Admelog) (100 unit/mL) subcutaneous injection vial 0-8 Units 0-8 Units, Subcutaneous, 3 TIMES DAILY WITH MEALS, First dose on Tue02/11/21 at 0845, Until Discontinued, [employer] Give 1 unit for every 10 grams carbohydrate. Hold if not eating or if BG less than 70 mg/dL., Routine 0828 (Given - Provider: Cynthia Tadeo RN)1331 (Given - Provider: Cynthia Tadeo RN)1824 (Given - Provider: Cynthia Tadeo RN) 0800 (Not Given - Provider: Sherwin Hermosillo RN - Reason: NPO)1313 (Given - Provider: Sherwin Hermosillo RN)1821 (Given - Provider: Sherwin Hermosillo RN) 0844 (Given - Provider: Kelsie Herbert RN)1248 (Given - Provider: Kelsie Herbert RN)1700 (Not Given - Provider: Kelsie Herbert RN - Reason: Patient/family refused) insulin lispro (HumaLOG;Admelog) (100 unit/mL) subcutaneous injection vial 1-6 Units(Linked Group 1) 1-6 Units, Subcutaneous, 4 TIMES DAILY BEFORE MEALS & NIGHTLY, First dose on Tue02/11/21 at 0845, Until Discontinued, CORRECTION BOLUS [1-6 Units] Moderate [...] > 240 mg/dL in 2 hours., Routine 0818 (Given - Provider: Cynthia Tadeo RN - Comment: bg [id number])1147 (Given - Provider: Cynthia Tadeo RN - Comment: bg [phone] (Given - Provider: Cynthia Tadeo RN - Comment: bg [phone])2012 (Given - Provider: Juani Kang V RN) 0844 (Given - Provider: Sherwin Hermosillo RN)1239 (Given - Provider: Sherwin Hermosillo RN)1637 (Given - Provider: Sherwin Hermosillo RN)203 (Given - Provider: Elle Escalante RN) 0842 (Given - Provider: Kelsie Herbert, SUNIL)1215 (Given - Provider: Kelsie Herbert, SUNIL)1601 (Given - Provider: Kelsie Herbert RN) levothyroxine (Synthroid) tablet 50 mcg 50 mcg, Oral, EVERY MORNING, First dose on 02/08/21 at 0600, Until Discontinued, Routine 0600 (Given - Provider: Anita Sosa RN) 0552 (Given - Provider: Madeline Salomon RN) 0539 (Given - Provider: Elle Escalante RN) lidocaine (Lidoderm) 5% topical patch 3 patch(Linked Group 2) 3 patch, Transdermal, EVERY 24 HOURS, First dose on 02/08/21 at 0900, Until Discontinued, Apply patch(es) for 12 hours, and then remove for 12 hours., Routine 0900 (Not Given - Provider: Cynthia Tadeo RN - Reason: Patient/family refused) 0845 (Not Given - Provider: Sherwin Hermosillo RN - Reason: Patient/family refused) 0842 (Not Given - Provider: Kelsie Herbert RN - Reason: Patient/family refused) lidocaine (Lidoderm) topical patch REMOVAL(Linked Group 2) Transdermal, EVERY 24 HOURS, First dose on 02/08/21 at 2014, Until Discontinued, Remove lidocaine 5% patch 2014 (Patch Not Removed (add comment) - Provider: Juani Sanchez RN - Comment: not placed) 2024 (Patch Not Removed (add comment) - Provider: Elle Escalante RN - Comment: Patches never applied.) losartan (Cozaar) tablet 25 mg 25 mg, Oral, DAILY, First dose on 02/08/21 at 0900, Until Discontinued, Routine 0820 (Given - Provider: Cynthia Tadeo RN) 0847 (Given - Provider: Sherwin Hermosillo RN) 0847 (Given - Provider: Kelsie Herbert RN) multivitamin with minerals (THERA-M) tablet 1 tablet 1 tablet, Oral, DAILY, First dose on 02/08/21 at 0900, Until Discontinued, Routine 0819 (Given - Provider: Cynthia Tadeo RN) 0847 (Given - Provider: Sherwin Hermosillo RN) 0846 (Given - Provider: Kelsie Herbert RN) pantoprazole EC (Protonix) tablet 40 mg 40 mg, Oral, DAILY, First dose on 02/08/21 at 0900, Until Discontinued, DO NOT CRUSH OR OPEN, Routine 0819 (Given - Provider: Cynthia Tadeo RN) 0846 (Given - Provider: Sherwin Hermosillo RN) 0847 (Given - Provider: Kelsie Herbert RN) polyethylene glycoL (Miralax) packet 17 g 17 g, Oral, DAILY, First dose on 02/08/21 at 1630, Until Discontinued, Hold for loose stools please! Thanks!, Routine 0900 (Not Given - Provider: Cynthia Tadeo RN - Reason: Patient/family refused) 0900 (Not Given - Provider: Sherwin Hermosillo RN - Reason: NPO) 0841 (Not Given - Provider: Kelsie Herbert RN - Reason: Patient/family refused) senna-docusate (Pericolace) 8.6-50 mg per tablet 2 tablet 2 tablet, Oral, 2 TIMES DAILY, First dose on 02/08/21 at 2100, Until Discontinued, Hold for loose stools please! Thanks!, Routine 0819 (Given - Provider: Cynthia Tadeo RN)2012 (Given - Provider: Juani Sanchez RN) 0846 (Not Given - Provider: Sherwin Hermosillo RN - Reason: Patient/family refused)2037 (Given - Provider: Elle Esaclante, SUNIL) 0846 (Not Given - Provider: Kelsie Herbert, SUNIL - Reason: Patient/family refused) sertraline (Zoloft) tablet 200 mg 200 mg, Oral, DAILY, First dose on 02/08/21 at 0900, Until Discontinued, Routine 0821 (Given - Provider: Cynthia Tadeo RN) 0854 (Given - Provider: Sherwin Hermosillo RN) 0848 (Given - Provider: Kelsie Herbert RN) sodium chloride 0.9 % (flush) flush 5 mL 5 mL, Intravenous, 2 TIMES DAILY, First dose on 02/07/21 at 2245, Until Discontinued, Routine 0821 (Given - Provider: Cynthia Tadeo RN)2012 (Given - Provider: Juani Sanchez RN) 0848 (Given - Provider: Sherwin Hermosillo RN)2050 (Given - Provider: Elle Escalante RN) 0853 (Given - Provider: Kelsie Herbert, SUNIL) topiramate (Topamax) tablet 100 mg 100 mg, Oral, 2 TIMES DAILY, First dose on 02/07/21 at 2245, Until Discontinued, DO NOT SPLIT, CRUSH OR OPEN, Routine 0821 (Given - Provider: Cynthia Tadeo RN)2013 (Given - Provider: Juani Sanchez RN) 0845 (Given - Provider: Sherwin Hermosillo, SUNIL)2038 (Given - Provider: Elle Escalante, SUNIL) 0848 (Given - Provider: Kelsie Herbert, SUNIL) PRN Medication Order 02/16/2021 02/17/2021 02/18/2021 cyclobenzaprine (Flexeril) tablet 10 mg 10 mg, Oral, 3 TIMES DAILY PRN, Starting on 02/07/21 at 2159, Until Tue02/18/21 at 2107, Muscle spasms, Routine 0854 (Given - Provider: Sherwin Hermosillo RN) dextrose 10% infusion(Linked Group 3) 250 mL, at 1,000 mL/hr, Intravenous, EVERY 30 MIN PRN, Starting on 02/07/21 at 2159, Until Tue02/18/21 at 2107, For BG 50-70 mg/dL: Oral treatment preferred:?? [...] for the duration of the active insulin. glucagon (Glucagen) (1 mg/mL) injection solution 1 mg(Linked Group 3) 1 mg, Intramuscular, EVERY 30 MIN PRN, Starting on 02/07/21 at 2159, Until 02/18/21 at 2107, Low blood sugar, For BG 50-70 mg/dL: [...] the duration of the active insulin., Routine glucose (GLUTOSE) 40% oral geL(Linked Group 3) 15-30 g, Buccal, EVERY 30 MIN PRN, Starting on 02/07/21 at 2159, Until Tue02/18/21 at 210, Low blood sugar, For BG 50-70 mg/dL: [...] weight of tube = 37.5 grams., Routine hydrOXYzine (Atarax) tablet 50 mg 50 mg, Oral, 2 TIMES DAILY PRN, Starting on 02/08/21 at 1500, Until Tue02/18/21 at 2107, Itching, Anxiety iohexoL (Omnipaque) (350 mg/mL) injection solution 0-200 mL (COMPLETED) 0-200 mL, Intravenous, ONCE PRN, 1 dose, Starting on 02/16/21 at 1549, Until Tue02/16/21 at 1549, Per Protocol, Warning Vesicant/Irritant Medication , Radiology Contrast, Routine 154 (Given - Provider: Yani Hughes) lidocaine (Xylocaine) 1% (10 mg/mL) injection 3 mg 3 mg (0.3 mL), Subcutaneous, ONCE PRN, 1 dose, Starting on 02/07/21 at 2159, Until Tue02/18/21 at 210, for discomfort with PIV insertion, Routine magnesium hydroxide (Milk of Magnesia) (240 mg/mL) oral liquid 30 mL 30 mL, Oral, DAILY PRN, Starting on 02/08/21 at 1539, Until Tue02/18/21 at 2107, Constipation, if no BM in past 24h, 10 mL concentrate = 30 mL regular, Routine ondansetron (pf) (Zofran) (2 mg/mL) injection 4-8 mg(Linked Group 4) 4-8 mg, Intravenous, EVERY 8 HOURS PRN, Starting on 02/07/21 at 2159, Until Tue02/18/21 at 2107, Nausea, Start with 4mg and if ineffective in 30 minutes, give an additional 4mg If multiple antiemetics are ordered, give ondansetron first. ondansetron (Zofran) tablet 4-8 mg(Linked Group 4) 4-8 mg, Oral, EVERY 8 HOURS PRN, Starting on 02/07/21 at 2159, Until Tue02/18/21 at 2107, Nausea, Vomiting, If multiple antiemetics are ordered, use ondansetron first. PO Preferred. If patient unable to take PO, may give IV if ordered. Start with 4mg and if ineffective in 45 minutes, give an additional 4mg. If unable to take PO, may give IV., Routine oxyCODONE (Roxicodone) tablet 10-15 mg(Linked Group 5) 10-15 mg, Oral, EVERY 4 HOURS PRN, Starting on 02/17/21 at 2348, Until Tue02/18/21 at 2107, Pain, severe pain (7-10), Initial dose 10mg. If pain control not adequate in 60 minutes, give additional 5mg, Routine 0000 (See Alternativ e - Provider: Elle Escalante RN)0539 (See Alternative - Provider: Elle Escalante RN) oxyCODONE (Roxicodone) tablet 5 mg (CANCELED) 5 mg, Oral, EVERY 4 HOURS PRN, Starting on 02/08/21 at 1507, Until Tu02/17/21 at 2348, Pain, pain >6/10 not improved by non-narcotic options, Routine 0359 (Given - Provider: Anita T Ontangco, RN)1153 (Given - Provider: Cynthia Tadeo, SUNIL)1824 (Given - Provider: Cynthia Tadeo, SUNIL)2359 (Given - Provider: Madeline Salomon, SUNIL) 0551 (Given - Provider: Madeline Salomon RN)1025 (Given - Provider: Sherwin Hermosillo, RN)1541 (Given - Provider: Sherwin Hermosillo, RN)2038 (Given - Provider: Elle Escalante RN) oxyCODONE (Roxicodone) tablet 5-10 mg(Linked Group 5) 5-10 mg, Oral, EVERY 4 HOURS PRN, Starting on Tue02/17/21 at 2348, Until Tue02/18/21 at 2107, Pain, moderate pain (4-6), Initial dose 5mg. If pain control not adequate in 60 minutes, give additional 5mg, Routine 0000 (Given - Provider: Elle Escalante RN)0539 (Given - Provider: Elle Escalante RN) sodium chloride 0.9 % (flush) flush 5-20 mL 5-20 mL, Intravenous, EVERY 1 MIN PRN, Starting on 02/07/21 at 2159, Until Tue02/18/21 at 2107, flush, Flush pertains to all indwelling lines. Flush per protocol found in the job aid using the link provided on this medication record., Routine Linked Groups Order Group 1: POCT Fingerstick Glucose (CANCELED) Routine, 4 TIMES DAILY BEFORE MEALS & AT BEDTIME, First occurrence on Tue02/11/21 at 1100, Until Specified, Consider choosing FOUR TIMES A DAY BEFORE MEALS AND AT BEDTIME as frequency for: Patients who have a good hypoglycemia awareness: -Patients who are eating meals during the day and sleeping at night -Patient who are otherwise stable And insulin lispro (HumaLOG;Admelog) (100 unit/mL) subcutaneous injection vial 1-6 UnitsJump to med 1-6 Units, Subcutaneous, 4 TIMES DAILY BEFORE MEALS & NIGHTLY, First dose on Tue02/11/21 at 0845, Until Discontinued, CORRECTION BOLUS [1-6 Units] Moderate [...] mg/dL in 2 hours., Routine Group 2: lidocaine (Lidoderm) 5% topical patch 3 patchJump to med 3 patch, Transdermal, EVERY 24 HOURS, First dose on 02/08/21 at 0900, Until Discontinued, Apply patch(es) for 12 hours, and then remove for 12 hours., Routine And lidocaine (Lidoderm) topical patch REMOVALJump to med Transdermal, EVERY 24 HOURS, First dose on 02/08/21 at 2015, Until Discontinued, Remove lidocaine 5% patch Group 3: glucose (GLUTOSE) 40% oral geLJump to med 15-30 g, Buccal, EVERY 30 MIN PRN, Starting on 02/07/21 at 2159, Until 02/18/21 at 2107, Low blood sugar, For BG 50-70 mg/dL: [...] Intravenous, EVERY 30 MIN PRN, Starting on 02/07/21 at 2159, Until Tue02/18/21 at 2107, For BG 50-70 mg/dL: Oral treatment preferred:?? [...] glucagon (Glucagen) (1 mg/mL) injection solution 1 mgJump to med 1 mg, Intramuscular, EVERY 30 MIN PRN, Starting on 02/07/21 at 2159, Until Tue02/18/21 at 2107, Low blood sugar, For BG 50-70 mg/dL: [...] the duration of the active insulin., Routine Group 4: ondansetron (Zofran) tablet 4-8 mgJump to med 4-8 mg, Oral, EVERY 8 HOURS PRN, Starting on 02/07/21 at 2159, Until Tue02/18/21 at 210, Nausea, Vomiting, If multiple antiemetics are ordered, use ondansetron first. PO Preferred. If patient unable to take PO, may give IV if ordered. Start with 4mg and if ineffective in 45 minutes, give an additional 4mg. If unable to take PO, may give IV., Routine Or ondansetron (pf) (Zofran) (2 mg/mL) injection 4-8 mgJump to med 4-8 mg, Intravenous, EVERY 8 HOURS PRN, Starting on 02/07/21 at 2159, Until Tue02/18/21 at 2106, Nausea, Start with 4mg and if ineffective in 30 minutes, give an additional 4mg If multiple antiemetics are ordered, give ondansetron first. Group 5: oxyCODONE (Roxicodone) tablet 5-10 mgJump to med 5-10 mg, Oral, EVERY 4 HOURS PRN, Starting on Tue02/17/21 at 2348, Until Tue02/18/21 at 2106, Pain, moderate pain (4-6), Initial dose 5mg. If pain control not adequate in 60 minutes, give additional 5mg, Routine Or oxyCODONE (Roxicodone) tablet 10-15 mgJump to med 10-15 mg, Oral, EVERY 4 HOURS PRN, Starting on Tue02/17/21 at 2348, Until Tue02/18/21 at 210, Pain, severe pain (7-10), Initial dose 10mg. If pain control not adequate in 60 minutes, give additional 5mg, Routine documented in this encounter Care Teams Desulfurizer Hand Relationship Specialty Start Date End Date Maryuri Evans MD [address] [place] [address] PCP - General 09/23/14 documented as of this encounter
--- OUTSIDE RECORDS SUMMARY | 2024-05-31 17:45 | XMS_ITS | Encounter Summary ---
Author Organization [facility] [place] [address] Care Team Providers Care Forging Die Sinker Name Role Phone Maryuri Evans MD Primary Care Provider [phone] Reason for Visit * Auth/Cert Specialty Diagnoses / Procedures Referred By Keith yung Referred To Contact Diagnoses Abscess of ankle Ankle abscess Procedures Emergency IPI Referral ID Status Reason Start Date Expiration Date Visits Re quested Visits Authorized [id number] 1 1 Encounter Details Date Type Department Care Team (Late st Contact Info) Description 02/14/2021 4:09 PM EDT Anesthesia [place] [address] Edison Gamez MD [facility] [place] [address] Roddy Coker CRNA [facility] [place] [address] Anesthesia Record Procedure Summary Procedure Name Responsible Anesthesiologist Anesthesia Start Time Anesthesia Stop Time DEBRIDEMENT SKIN, SUBCU, MUSCLE, BONE, LOWER EXTREMITY (WRVU 4.1) (Left: Leg) Edison Gamez MD 02/14/21 1609 02/14/21 1658 Events Date Time Event Comment 02/14/2021 1609 AN Verify 1609 Start 1609 An Start Data 1616 An Induction 1618 An Intubation 1618 Anesthesia Ready 1649 Extubation/LMA Out 1652 an stop data 1657 1657 Recovery or ICU Handoff Adilene ent care was transferred to the destination unit staff after review of the patient's medical history, current anesthetic/surgical status and plan, according to the Provider Handoff Checklist. 1658 Stop Meds Name Total fentaNYL 50 mcg IV Lidocaine 60 mg Propofol 130 mg Ondansetron 8 mg Vancomycin 1 g Lactated Ringers 300 mL * Agents Name O2 Air N2O Sevoflurane (et) * Blood No blood administrations on file. Lines, Drains, and Airways Type Details Placement Removal Incision 02/08/21; 1014; Left ; ankle; vertical; [...] verified by x-ray; superior vena cava; DEB GARCIA RN; distraction, intradermal injection, tolerated well, appears comfortable; 0; LDA not present upon assessment; 03/14/21; 1900 02/14/21 0932 by Kendall Garcia RN 03/14/21 190 by Nupur Greenwood, RN Supraglottic Mask Ventilation: No t Attempted (0); LMA Type: iGel; LMA Size: 3; Inserted by: John Paul; Removal Date: 02/14/21; Removal Time: 164802/14/21 161 by Roddy Coker CRNA 02/14/21 164 by Roddy Coker CRNA documented in this encounter Social History Tobacco [...] OR Notes * Anesthesia Postprocedure Evaluation - Edison Gamez MD - 02/14/2021 7:07 PM EDT Department of Anesthesiology Post-procedure Note Patient: Jesenia Méndez Procedure Summary Date: 02/14/21 Room / Location: [facility] MAIN OR Anesthesia Start: 1609 Anesthesia Stop: 1658 Procedure: DEBRIDEMENT SKIN, SUBCU, MUSCLE, BONE, LOWER EXTREMITY (WRVU 4.1) (Left Leg) Diagnosis: (infected ankle wound) Surgeons: Sabrina Capellan MD Responsible Provider: Edison Gamez MD Anesthesia Type: general ASA Status: 3 All Anesthesia Providers: Anesthesiologist: Edison Gamez MD PRESS OPERATOR HEAVY DUTY: Roddy Coker CRNA Vitals Value Taken Time BP 121/74 02/14/21 1745 Temp 36.8 ??C (98.2 ??F) 02/14/21 1745 Pulse 81 02/14/21 1745 Resp 14 02/14/21 1745 SpO2 95 % 02/14/21 1745 Pain Level 0 02/14/21 1745 [facility] of Consciousness: Awake and Alert Pain Management: Satisfactory Analgesia PONV: None Cardiovascular Status: At Baseline Respiratory Status: At Baseline Postoperative Fluid Status: Intravascular EUvolemia Possible Anesthetic Complications: NONE apparent at time of evaluation Final Primary Anesthesia Type: General (The anesthetic type performed was the same as planned.) Comments: * Anesthesia Preprocedure Evaluation - Edison Gamez MD - 02/14/2021 4:55 PM EDT Pre-Anesthesia Evaluation for: Jesenia Méndez a 60 y.o. female. Procedure(s): DEBRIDEMENT SKIN, SUBCU, MUSCLE, BONE, LOWER EXTREMITY (WRVU 4.1) Patient Active Problem List Diagnosis ? ? S/P Left ankle I&D for abscess and wound dehiscence, 02/08/21 (Dr Quiñones) and 02/10/21 (Abdirahman) ??? Closed fracture of left ankle with routine healing ??? H/O insulin dependent diabetes mellitus ??? H/O: depression ??? Hypothyroidism ??? h/o chronic headaches ??? Closed fracture of shaft of right ulna with known elbow arthrodesis RIGHT ??? Chronic pain in left shoulder ??? S/P R elbow fusion on 12/14/17 Madeline ??? Psoriasis History reviewed. No pertinent past medical history. Past Surgical History: Procedure Laterality Date ??? PRO ALVEOLOPLASTY W EXTRACTIONS, 4 OR MORE TEETH, PER QUADRANT N/A 09/11/2019 ALVEOPLASTY,IN CONJUNCTION WITH EXTRACTIONS,PER QUADRANT,ENT (WRVU 4.06) performed [place] [facility] ? ? PRO DEBRIDEMENT SUBCUTANEOUS TISSUE 20 SQCM/< Left 02/08/2021 DEBRIDEMENT SKIN AND SUBCU, LOWER EXTREMITY (WRVU 1.01) performed by Henrry Quiñones MD at [facility] OR ? ? PRO DEBRIDEMENT SUBCUTANEOUS TISSUE 20 SQCM/< Left 02/10/2021 DEBRIDEMENT SKIN AND SUBCU, LOWER EXTREMITY (WRVU 1.01) performed by Jacobo De La Cruz MD at [facility] OR ? ? PRO DEBRIDEMENT SUBCUTANEOUS TISSUE 20 SQCM/< Left 02/12/2021 DEBRIDEMENT SKIN AND SUBCU, LOWER EXTREMITY (WRVU 1.01) performed by Sabrina Capellan MD at [facility] OR ??? PRO FUSION/GRAFT OF ELBOW JOINT Right 2017 ARTHRODESIS, ELBOW JOINT WITH AUTOGENOUS GRAFT (WRVU 14.32) performed by Christopher Correa MD at [facility] OR ??? PRO REMOVAL DEEP IMPLANT Right 2017 REMOVAL OF IMPLANT, DEEP, ELBOW (WRVU 5.96) performed by Christopher Correa MD at [facility] OR ??? PRO REMOVAL ERUPTED TOOTH WITH ELEVATION OF MUCOPERIOSTEAL FLAP Bilateral 09/11/2019 SURGICAL EXTRACTIONS REQUIRING ELEVATION OF MUCOPERIOSTEAL FLAP AND REMOVAL OF BONE OR SECTION OF TOOTH (WRVU 1.09) performed by Wesley Jacobo MD [place] [facility] Social History Tobacco Use ??? Smoking status: [...] REMOVE Please contact the Blood Bank at [phone] for questions. ??? Pollen Extracts Other (See Comments) Rhinusitus ??? Trazodone Other (See Comments) Hallucination ??? Adhesive Rash Skin Rash ??? Lisinopril Other (See Comments) Cough. Medications: MAR and/or home medications have been reviewed. Physical Exam: Preprocedure Vitals Current as of 02/14/21 1609 BP: 132/70 Pulse: Resp: 16 SpO2: 98 Temp: 36.7 ??C (98.1 ??F) Height: 157.5 cm (5' 2) (02/07/21) Weight: 83 kg (183 lb) (02/07/21) BMI: 33.47 IBW: 50.1 kg (110 lb 7.8 oz) Last edited 02/14/21 1151 by [place] Currently displaying vitals information from multiple entries within 90 minutes of most recent vitals. Airway Assessment: Mallampati: II TM distance: >3 FB Neck ROM: full Cardiovascular Assessment: Rhythm: regular Rate: normal Pulmonary Assessment: breath sounds clear to auscultation Dental Assessment: Misc Assessment: Last Filed Perioperative Cognitive Screening None Anesthesia Plan: ASA 3 general, with a(n) intravenous induction Addendum 02/14/2021 (MD Franco): 60yo for repeat ankle washout. No interval change. Prior GA w/o issue with LMA. Pt requests to proceed. Serial consents verified Region - Other Informed Consent: Anesthetic plan and risks discussed with patient. Plan discussed with PRESS OPERATOR HEAVY DUTY. Anesthesia Screening documented in this encounter Plan of Treatment Not on file documented as of this encounter Visit Diagnoses Not on filedocumented in this encounter Administered Medications Inactive Administered Medications - up to 3 most recent administrations Medication Order MAR Action Action Date Dose Rate Site fentaNYL (pf) (50 mcg/mL) multi-dose injection Intravenous, PRN, Starting on 02/14/21 at 1620, Until 02/14/21 at 1658, Anesthesia Intra-op, Routine Given 02/14/2021 4:20 PM EDT 50 mcg lactated ringers infusion Intravenous, CONTINUOUS PRN, Starting on 02/14/21 at 1609, Until 02/14/21 at 1658, Anesthesia Intra-op New Bag 02/14/2021 4:09 PM EDT lidocaine (pf) (Xylocaine) (20 mg/mL) 2% injection syringe Intravenous, PRN, Starting on 02/14/21 at 1616, Until 02/14/21 at 1658, Anesthesia Intra-op, Routine Given 02/14/2021 4:16 PM EDT 60 mg ondansetron (pf) (Zofran) (2 mg/mL) injection Intravenous, PRN, Starting on 02/14/21 at 1632, Until 02/14/21 at 1658, Anesthesia Intra-op, Routine Given 02/14/2021 4:32 PM EDT 8 mg propofoL (Diprivan) 10 mg/mL bolus injection (Anesthesia) Intravenous, PRN, Starting on 02/14/21 at 1616, Until 02/14/21 at 1658, Anesthesia Intra-op Given 02/14/2021 4:16 PM EDT 130 mg vancomycin (Vancocin) injection Intravenous, PRN, Starting on 02/14/21 at 1620, Until 02/14/21 at 1658, Anesthesia Intra-op, Routine Given 02/14/2021 4:20 PM EDT 1 g documented in this encounter Care Teams Forging Die Sinker Relationship Specialty Start Date End Date Maryuri Evans MD [address] [place] [address] PCP - General 09/23/14 documented as of this encounter
--- OUTSIDE RECORDS SUMMARY | 2024-05-31 17:46 | XMS_ITS | Encounter Summary ---
Author Organization Formerly [facility], [facility] Address [facility] [place] [address] Care Team Providers Care Heating And Ventilating Worker Name Role Phone Maryuri Evans MD Primary Care Provider [phone] Reason for Visit * Reason Comments Cast Problem * Auth/Cert Specialty Diagnoses / Procedures Referred By Contac t Referred To Contact Diagnoses Abscess of ankle Ankle abscess Procedures Emergency IPI Referral ID Status Reason Start Date Expiration Date Visits Re quested Visits Authorized [id number] 1 1 Encounter Details Date Type Department Care Team (Late st Contact Info) Description 02/14/2021 4:05 PM EDT - 02/14/2021 5:47 PM EDT [place] [phone] Sabrina Capellan MD [facility] [place] [address] DEBRIDEMENT SKIN, SUBCU, MUSCLE, BONE, LOWER EXTREMITY (WRVU 4.1) Social History Tobacco Use Types Packs/Day Years [...] Sign Reading Time Taken Comments Blood Pressure 121/74 02/14/2021 5:45 PM EDT Pulse 81 02/14/2021 5:45 PM EDT Temperature 36.8 ??C (98.2 ??F) 02/14/2021 5:45 PM ED T Respiratory Rate 14 02/14/2021 5:45 PM EDT Oxygen Saturation 95% 02/14/2021 5:45 PM EDT Inhaled Oxygen Concentration - - Weight 83 kg (183 lb) 02/07/2021 2:38 PM EDT Height 157.5 cm (5' 2) 02/07/2021 2:38 PM EDT Body Mass Index 33.47 02/07/2021 2:38 PM EDT documented in this encounter Discharge Summaries * Cami Ugarte APRN - 02/18/2021 7:40 AM EDT Discharge Summary Patient Name: Jesenia Méndez Patient Age: 60 y.o. Language: Bermudian Race: White Ethnicity: Not nor Admit date: 02/07/2021 Discharge date and time: 02/18/2021 Attending Physician: Yunior Rodriguez DO Discharge Physician: Cami Ugarte APRN [...] please contact your inpatient physician through the [facility] Wrecker Operator . Issues afterhours and on weekends will [...] internal fixation on January 21, [address] [facility] for left ankle fracture that she suffered [...] plate, and had cast exchange done at [facility] Ortho clinic yesterday. She reported that her [...] and oxycodone as needed. PICC placed in LUE on 02/14. OPAT/ID to follow as outpatient. [...] 33.47 Height: 157.5 cm (5' 2) (02/07/21 1438) Weight: 83 kg (183 lb) (02/07/21 1438) Functional and Cognitive Status: Needs help with [...] Last 3 ProBNP, Trop, CK Recent Labs 02/17/210 02/14/212012 CK <20 <20 Last 3 TFT [...] questions please contact the health home health aide caregiver that requested your imaging first. Electronically signed by: Anthony Carrillo MD, [facility] ([phone]), at 02/07/2021 3:[address] Lower Extremity [...] questions please contact the health home health aide caregiver that requested your imaging first. Ankle Min 3 views Left (Generic) (Exam [...] questions please contact the health home health aide caregiver that requested your imaging first. PICC Placement Over 5 Years with Imaging [...] questions please contact the health home health aide caregiver that requested your imaging first. Angiogram Lower Extremity Left (Generic) (Exam End: [...] questions please contact the health home health aide caregiver that requested your imaging first. Pending Studies and Lab Data: None Discharge Conditions/Prognosis: Stable/fair Discharge to: Home w/ OPAT, VNA Updated Allergies/ADRs: Allergies Allergen Reactions ??? Latex Rash ??? Erythromycin Lactobionate Nausea Only ??? Metformin Nausea Only ??? Red Blood Cells Other (See Comments) Antibodies-Difficult to Crossmatch DO NOT REMOVE Please contact the Blood Bank at [phone] for questions. ??? Pollen Extracts Other (See [...] ankle needing wound vac, multiple debridements, and diesel engine engineer IV antibiotics Specific instructions related to your [...] Center 03/05/2021 4:00 PM Cyndy Moran APRN [facility] ID [id number] [facility] 03/20/2021 9:00 AM Juani Miller DO [facility] ID [address] [place] [address] 03/20/2021 1:00 PM CAST ROOM 3A [facility] ORTH [address] [place] [address] 03/20/2021 1:30 PM [facility] DX ROOM 3 MH Xray [facility] 03/20/2021 2:20 PM Dorina Campbell APRN [facility] ORTH [address] [place] [address] Your Inpatient Doctor: MARK CHAVEZ NAYLA MATHEW, ROBERT K Your Primary Care Provider: Maryuri Evans MD For questions regarding this document or issues relating to this hospitalization on the Medical Service, please contact your inpatient physician through the [facility] Wrecker Operator . Issues afterhours and on weekends will be handled by the Hospitalist staff on-call. General Instructions None Future Appointments and Orders Future Appointments and Orders Future Appointments Provider Department Dept Phone 03/05/2021 4:00 PM Cyndy Moran APRN Infectious Disease at [facility] Arrive at: Check Services Clerk Area [phone] 03/20/2021 9:00 AM Juani Miller DO Infectious Disease at [facility] Arrive at: Check Services Clerk Area [phone] 03/20/2021 1:00 PM CAST ROOM 3A Orthopaedics at [facility] Arrive at: Check Services Clerk Area 3A [phone] 03/20/2021 1:30 PM [facility] DX ROOM 3 XRay at [facility] Arrive at: Check Services Clerk Area [phone] Please go to Check Services Clerk Area 3T ([place] Location). 03/20/2021 2:20 PM Dorina Campbell APRN Orthopaedics at [facility] Arrive at: Check Services Clerk Area 3A [phone] Future Orders Complete By Expires Full code [...] Recommendation for Post Discharge IV Antibiotic Management [JRX006 CPT(R)] As directed Process Instructions: If no progress note charted, please enter Clinical details in comments. Scheduling Instructions: Comments: Please Fax all results to: OPAT Program Infectious Disease Section [facility], [place] [address] FAX: After hours, please contact the Infectious Disease Physician electronic funds transfer coordinator at . If this order was signed greater than 72 hours prior to [facility] discharge, please call to confirm the accuracy [...] heparin (10 units/ml) nursing home for medication administration/occupational health physiotherapist and catheter care/maintenance authorized. PICC Dressing Change [...] Tuesday and PRN and [facility] at [phone]. Please see OPAT order for lab draw [...] Referral to Home Health - at DISCHARGE [VJX0301 CPT(R)] As directed Process Instructions: Scheduling Instructions: Comments: DOCUMENTATION FOR VNA SERVICES (INCLUDING THOSE PATIENTS WITH MEDICARE COVERAGE REQUIRING HOME VNA SERVICES AND/OR HOSPICE SERVICES) PATIENT'S LOCATION: Jesenia Méndez [address] [facility] [address] Radiosonde Operator's Name: Patient & family In discussion with the attending physician, it is certified that this patient is under their care and that they, or a Nurse Practitioner,Clinical Nurse specialist or Physician Manager Technology who is working directly with them, had [...] assess and continue rehab for managing ADL's. PASTE THINNER: assist with ADLs as directed by RN HOME HEALTH CARE AGENCY: [facility] PHONE: [phone] FAX: [phone] Start of care: 24-48 hours of discharge Please note that any additional orders needs or changes will need to be obtained from this patient's PCP: Maryuri Evans MD BOX [facility] [employer] [facility] [phone] All VNA agencies which cover the area of patient's residence have been reviewed, either verbally jeaneth writing, and patient/family have chosen the home health care agency noted Questions: Agency name and contact information: [facility] Patient location post discharge: Home What services are requested: Registered Nurse Physical Therapy Occupational Therapy Home Health Aide Start date: Responsible MD post discharge contact info: PCP Harinder rolling [EQ134 Custom] As directed Process Instructions: Scheduling Instructions: Comments: Jesenia Méndez [address] [facility] [address] [place] [phone] Diagnosis: Left ankle I&D for abscess and [...] ORIF (Open Reduction With Internal Fixation): Post-op (Bermudian) documented in this encounter Discharge Instructions * Patient Instructions* Cami Ugarte APRN - 02/18/2021 2:50 PM EDT Instructions on Discharge to Home Why you were hospitalized: infected hardware of L ankle needing wound vac, multiple debridements, and mcc IV antibiotics Specific instructions related to your [...] Center 03/05/2021 4:00 PM Cyndy Moran APRN [facility] ID [id number] [facility] 03/20/2021 9:00 AM Juani Miller DO [facility] ID 5C [facility] 03/20/2021 1:00 PM CAST ROOM 3A [facility] ORTH 3A [facility] 03/20/2021 1:30 PM [facility] DX ROOM 3 MH Xray [facility] Rad 03/20/2021 2:20 PM Dorina Campbell APRN [facility] ORTH 3A [facility] Your Inpatient Doctor: MARK CHAVEZ NAYLA MATHEW, ROBERT K Your Primary Care Provider: Maryuri Evans MD For questions regarding this document or issues relating to this hospitalization on the Medical Service, please contact your inpatient physician through the [facility] Wrecker Operator . Issues afterhours and on weekends will be handled by the Hospitalist staff on-call. * Attachments The following attachments cannot be sent through Care Everywhere. * ORIF (Open Reduction With Internal Fixation): Post-op (Bermudian) documented in this encounter Medications at Time [...] Jacqui Lo RN - 02/18/2021 4:06 PM EDTSumvalerioy: SHANTAL Progress Note CARE MANAGEMENT FINAL DISCHARGE NOTE Chart reviewed, care reviewed with primary team and at interdisciplinary rounds. Patient is medically ready for discharge. Needs for Transition of Care Plan for discharge is: Agency Referrals: 1. [facility]- ref done & order [...] Insurance: N/A Prescription Coverage: YES Preferred Pharmacy: [id number] - [place], [place] - [address] [place] [id number] This plan was formulated with input from patient, father and team. All are in agreement with plan. Jacqui Lo RN Case Strategic Partnership Manager of Care Management Pager: [phone] Ext: [phone] * Jacqui Lo RN - 02/18/2021 4:00 PM EDTSummary: CM Progress Note Pipe Testing Technician asking RS to please place referral to: Ortho Care Located @ [facility] Center [place], [place] Patient needs a walker with a right platform. Jacqui Lo RN, BSN, MST, ACM Senior Windows Systems Administrator pager#[phone] * Kalyani Dotson RN - 02/18/2021 3:15 PM EDTSummary: OPAT teach Infectious Disease/OPAT Program Teaching Visit Met with patient and her father at the bedside to discuss discharge on IV ABX. Patient was engaged in listening to the education; the father only listened to part of it. Patient verbally agrees to the personal responsibilities, and role of the PASTE THINNER, of being in the OPAT program although the primary team has concerns about follow-through/compliance with medical care. This RN discussed with [facility] liasonwilliam Lundberg & Anton about further assessing follow-through with care during their teach with the patient (I.e. physically have patient practice flushing an IV line). Patient given and reviewed OPAT package including OPAT order, PICC line care including dressing changes and labs both weekly & prn, potential issues, what they might indicate and who to contact. Reviewed roles and responsibilities of PASTE THINNER and infusion vendor. Contact information for ID and ortho team/clinic, PASTE THINNER and infusion vendor given to pt. Discussed f/u appointments in ID 5C clinic. Pt verbalized understanding. All questions answered. IV & PO ABX Medications: Daptomycin 700mg IV Q24h PASTE THINNER: [facility] Infusion vendor: [employer] [facility] IV Access: PICC (single lumen) Placed: 02/14 Plan: discharge on OPAT program when medically ready. * Mable Brooks OTA - 02/18/2021 1:14 PM EDT Occupational Therapy Treatment Note Treatment Number OT: 3 Patient Dx: ?? Patient Dx: Jesenia Méndez??is a 60 y.o.?female??with??PMH significant for ID T2DM, R elbow fusion with serial casting, and L ankle fracture S/P ORIF at [facility] (01/21/21)??who presented to the ED for??RUE cast [...] 4.06) performed by Wesley Jacobo MD at [facility] OSC ? ? PRO DEBRIDEMENT SUBCUTANEOUS TISSUE 20 SQCM/< Left 02/08/2021 ?? DEBRIDEMENT SKIN AND SUBCU, ??LOWER EXTREMITY (WRVU 1.01) performed by Henrry Quiñones MD [facility] MAIN OR ??? PRO FUSION/GRAFT OF ELBOW JOINT Right 2017 ?? ARTHRODESIS, ELBOW JOINT WITH AUTOGENOUS GRAFT (WRVU 14.32) performed by Christopher Correa MD at [facility] MAIN OR ??? PRO REMOVAL DEEP IMPLANT Right 2017 ?? REMOVAL OF IMPLANT, DEEP, ELBOW (WRVU 5.96) performed by Christopher Correa MD at [facility] MAIN OR ??? PRO REMOVAL ERUPTED TOOTH WITH ELEVATION OF MUCOPERIOSTEAL FLAP Bilateral 09/11/2019 ?? SURGICAL EXTRACTIONS REQUIRING ELEVATION OF MUCOPERIOSTEAL FLAP AND REMOVAL OF BONE OR SECTION OF TOOTH (WRVU 1.09) performed by Wesley Jacobo MD at [facility] O[facility] ?? Social History: Patient lives??with [...] Total Minutes, Occupational Therapy: 16 (Schmx1) Pager: [phone] MARIE Thomas 02/18/2021 Occupational Therapy Rehabilitation Department * Jcaqui Lo RN - 02/18/2021 10:13 AM EDTSumcorrine: SHANTAL Progress Note OFFICE OF CARE MANAGEMENT ?? Senior Windows Systems Administrator Follow-up Note ?? S/O: Discussed plan of [...] drainage after having ORIF on 01/21/[address] [facility]. CT of the ankle showed LLEcellulitis with small abscess at the lateral malleolus.? Current referrals in place: 1. [facility]- ref done & order pended 2. [facility]- ref done- waiting on OPAT orders- Daptomycin daily 3. [facility]- patient will require a wound vac at discharge. Pipe Testing Technician working with Michael @ [facility] to get this approved. ?? A: Patient medical ready for discharge home with VNA and IVABX from [facility] with support of family. Patient declining to go to rehab and insists upon going home. Team is providing as much education as possible to patient to assure that she understands her needs and follows the plan for optimal recovery. ?? P:Senior Windows Systems Administrator to follow with team and family to assist with discharge needs when patient ready fordischarge. ?? Jacqui Lo RN, Senior Windows Systems Administrator Pager #[phone] * Yunior Rodriguez DO - 02/18/2021 7:39 AM EDT HOSPITAL MEDICINE ATTENDING DAY OF DISCHARGE NOTE Patient Jesenia Méndez 1960 [id number] Physician Yunior Rodriguez DO Pager: [phone] Hospitalist Encounter Date February 19, 2021 PCP Maryuri Evans MD PCP phone [phone] Discharge diagnosis Active Hospital Problems Diagnosis ? [...] of amputation if antibiotics not completed and pbq-qwsjyk-nxozaub status maintained. This risk explained to patient and father before discharge. I have personally seen and examined the patient and they are ready for discharge. I spent >30 minutes (Day of Discharge Code 15361) involved in the final examination of the patient, discussion of the hospital stay, instructions for continuing care to all relevant caregivers, and preparation of discharge records, prescriptions and referral forms. Plans Discharge to home with VNA Follow-up scheduled with Future Appointments Date Time Provider Department Center 03/02/2021 3:00 PM Aydee Franklin MD [facility] PLAS 4M [facility] 03/05/2021 4:00 PM Cyndy Moran APRN [facility] ID 5C [facility] 03/20/2021 9:00 AM Juani Miller DO [facility] ID 5C [facility] 03/20/2021 1:00 PM CAST ROOM 3A [facility] ORTH 3A [facility] 03/20/2021 1:30 PM [facility] DX ROOM 3 MH Xray [facility] Rad 03/20/2021 2:20 PM Dorina Campbell APRN [facility] ORTH [address] [place] [address] Please see the Discharge Summary for complete details of any medication changes and additional plans. Yunior Rodriguez DO Pager: [phone] February 19, 2021 9:54 PM * Ruben [...] Follow-up: Pending hospital course Ruben Damian MD P.[id number] Associated attestation - Sabrina Capellan MD - [...] UP NOTE Patient ID: Jesenia Méndez Room: [address] [place] [address] Active ID Issue(s): Post-op hardware infection s/p [...] a history of ORIF left ankle at [facility] on 01/21/21 complicated by skin/soft tissue infection [...] the patient today. Delfina Harris MD Page [phone] All of this 25 minute visit were spent on the floor/unit in coordination of care for the patient, regarding treatment of infection as detailed in note above. * Jacqui Lo RN - 02/17/2021 4:22 PM EDTSumcorrine: SHANTAL Progress Note OFFICE OF CARE MANAGEMENT Senior Windows Systems Administrator Follow-up Note S/O: Discussed plan of care [...] drainage after having ORIF on 01/21/[address]21 [address] [facility]. CT of the ankle showed LLE cellulitis with small abscess at the lateral malleolus. She is s/p hardware removal and multiple washouts with ortho. 02/14 Dr. Beryl BALES Progress Note: 60F s/p ORIF left ankle on 01/21 complicated by SSI involving hardware. She has undergone multiple debridements with total hardware removal on 02/12. Cultures continue to grow predominantly MSSA and occasionaly enterococcus. Given susceptibilities would recommend Daptomycin for discharge. Will need 6 week course of therapy from hardware removing (end 8/5). Current referrals in place: 1. [facility]- ref done & order pended 2. [facility]- ref done- waiting on OPAT orders 3. [facility]- patient will require a wound vac at discharge. A: Patient nearing medical readiness for discharge home with [place]ABX from [place] with support of family. P:Senior Windows Systems Administrator to follow with team and family to assist with discharge needs when patient ready fordischarge. Jacqui Lo RN, Senior Windows Systems Administrator Pager #[phone] * Anthony Fermin MD - 02/17/2021 10:57 [...] MD Department of Orthopaedics 02/18/21 * Cami Ugarte, ADVANCE SCOUT - 02/17/2021 8:36 AM EDT Hospital Medicine Daily Progress Note [...] purulent drainageafter having ORIF on 01/21/[address]21 [address] [facility]. CT of the ankle showed LLE cellulitis [...] cellulitis and abscess: -Following recent ORIF at [facility] s/p mechanical fall w/ fracture -Reported noncompliance [...] GI prophylaxis Home ppi DVT prophylaxis Lovenox PT/OT/CUSTOMER SOLUTIONS REPRESENTATIVE PT/OT Wound Care Anticipated Disposition TBD Code Status Attempt Cardiopulmonary Resuscitation - Inpatient Team Pager ( coverage 14/03) [phone] PCP Maryuri Evans MD Family Update Family [...] questions please contact the health home health aide caregiver that requested your imaging first. Electronically signed by: Anthony Carrillo MD, [facility] ([phone]), at 02/07/2021 3:[address] Lower Extremity [...] questions please contact the health home health aide caregiver that requested your imaging first. Ankle Min 3 views Left (Generic) (Exam [...] questions please contact the health home health aide caregiver that requested your imaging first. PICC Placement Over 5 Years with Imaging [...] questions please contact the health home health aide caregiver that requested your imaging first. Angiogram Lower Extremity Left (Generic) (Exam End: [...] questions please contact the health home health aide caregiver that requested your imaging first. Other studies/procedures: [...] Follow-up: Pending hospital course Ruben Damian MD P.[phone] Associated attestation - Sabrina Capellan MD - 02/18/2021 6:41 AM EDT Patient seen and examined. Agree with resident note. Micaela Capellan MD Department of Orthopaedics 02/18/21 * Madeline Salomon RN - 02/17/2021 6:27 AM EDT PT. [...] status LLE/RUE. Will continue to follow. Pager: [phone] MARIE Thomas 02/16/2021 Occupational Therapy Rehabilitation Department * Cami Ugarte, SREE - 02/16/2021 8:01 AM EDT Hospital Medicine [...] ??? Psoriasis Interval History: - NPO at OR tonight for OR tomorrow--possible abx spacer vs [...] purulent drainageafter having ORIF on 01/21/[address]21 at [facility]. CT of the ankle showed LLE cellulitis [...] cellulitis and abscess: -Following recent ORIF at [facility] s/p mechanical fall w/ fracture -Reported noncompliance [...] GI prophylaxis Home ppi DVT prophylaxis Lovenox PT/OT/CUSTOMER SOLUTIONS REPRESENTATIVE PT/OT Wound Care Anticipated Disposition TBD Code Status Attempt Cardiopulmonary Resuscitation - Inpatient Team Pager ( coverage 14/03) [phone] PCP Maryuri Evans MD Family Update Family [...] 3.5 3.6 CL 109* 108* 111* CO2 26 23 22 BUN 10 9 11 CREATININE 0.79 0.84 [...] questions please contact the health home health aide caregiver that requested your imaging first. Electronically signed by: Anthony Carrillo MD, [facility] ([phone]), at 02/07/2021 3:[address] Lower Extremity [...] questions please contact the health home health aide caregiver that requested your imaging first. Ankle Min 3 views Left (Generic) (Exam [...] questions please contact the health home health aide caregiver that requested your imaging first. PICC Placement Over 5 Years with Imaging [...] questions please contact the health home health aide caregiver that requested your imaging first. Other studies/procedures: [...] Follow-up: Pending hospital course Ruben Damian MD P.[phone] Associated attestation - Sabrina Capellan MD - [...] consulted in the interim. EARL Campo Pager: [phone] * Adalberto Mckeon PA - 02/15/2021 2:17 [...] purulent drainageafter having ORIF on 01/21/[address]21 [address] [facility]. CT of the ankle showed LLE cellulitis [...] cellulitis and abscess: -Following recent ORIF at [facility] s/p mechanical fall w/ fracture -Reported noncompliance [...] GI prophylaxis Home ppi DVT prophylaxis Lovenox PT/OT/CUSTOMER SOLUTIONS REPRESENTATIVE PT/OT Wound Care Anticipated Disposition TBD Code Status Attempt Cardiopulmonary Resuscitation - Inpatient Team Pager ( coverage 14/03) [phone] PCP Maryuri Evans MD Family Update Family [...] 3.6 3.8 CL 108* 111* 110* CO2 21* BUN 9 11 12 CREATININE 0.84 [...] microorganisms seen. * Recent Labs 02/07/21 1855 02/07/211936 BLOODCX No growth at 5 days. No [...] questions please contact the health home health aide caregiver that requested your imaging first. Electronically signed by: Anthony Carrillo MD, [facility] ([phone]), at 02/07/2021 3:[address] Lower Extremity [...] questions please contact the health home health aide caregiver that requested your imaging first. Ankle Min 3 views Left (Generic) (Exam [...] questions please contact the health home health aide caregiver that requested your imaging first. PICC Placement Over 5 Years with Imaging [...] questions please contact the health home health aide caregiver that requested your imaging first. Other studies/procedures: [...] Follow-up: Pending hospital course Seth Yarbrough MD P.[phone] Associated attestation - Sabrina Capellan MD - [...] Center 03/20/2021 1:00 PM CAST ROOM 3A [facility] ORTH 3A [facility] 03/20/2021 1:30 PM [facility] DX ROOM 3 Xray [facility] Rad 03/20/2021 2:20 PM Dorina Campbell ADVANCE SCOUT [facility] ORTH [address] [place] [address] Associated attestation - Sabrina Capellan MD - [...] new organisms identified. Micro: Abscess/Wound Aspirate Culture [[id number]] (Abnormal) Collected: 02/08/21 1030 Lab Status: Final [...] purulent drainageafter having [facility]IF on [facility] [facility] of the ankle showed LLE cellulitis with small abscess at the lateral malleolus. Plan for patient to go back to OR today for I&D and wound vac change. ID discussing appropriateness for transition to daptomycin vs. Nafcillin (in setting of MSSA & enterococcus). PICC placedyesterday due to access issues. #LLE MSSA & Enterococcus cellulitis and abscess: -Following recent ORIF at [facility] s/p mechanical fall w/ fracture -Reported noncompliance [...] GI prophylaxis Home ppi DVT prophylaxis Lovenox PT/OT/CUSTOMER SOLUTIONS REPRESENTATIVE PT/OT Wound Care Anticipated Disposition TBD Code [...] Labs 02/10/21 0401 02/09/21 0513 02/08/21 031 CALCIUM 8.5 8.9 9.0 No results for [...] questions please contact the health home health aide caregiver that requested your imaging first. Electronically signed by: Anthony Carrillo MD, [facility] ([phone]), at 02/07/2021 3:[address] Lower Extremity [...] questions please contact the health home health aide caregiver that requested your imaging first. Ankle Min 3 views Left (Generic) (Exam [...] questions please contact the health home health aide caregiver that requested your imaging first. PICC Placement Over 5 Years with Imaging [...] questions please contact the health home health aide caregiver that requested your imaging first. Other studies/procedures: [...] to commode. Will continue to follow. Pager: [phone] MARIE Thomas 02/13/2021 Occupational Therapy Rehabilitation Department [...] purulent drainageafter having ORIF on 01/21/2021 at [facility]. CT of the ankle showed LLE cellulitis [...] cellulitis and abscess: -Following recent ORIF at [facility] s/p mechanical fall w/ fracture -Reported noncompliance [...] GI prophylaxis Home ppi DVT prophylaxis Lovenox PT/OT/CUSTOMER SOLUTIONS REPRESENTATIVE PT/OT Wound Care Anticipated Disposition TBD Code [...] LABS: Recent Labs 02/10/21 0401 02/09/21 0513 02/08/219 WBC 6.8 8.4 8.6 HGB 10.5* 12.5 [...] hours. Recent Labs 02/10/21 0401 02/09/21 0513 02/08/21318 CALCIUM 8.5 8.9 9.0 No results for [...] questions please contact the health home health aide caregiver that requested your imaging first. Electronically signed by: Anthony Carrillo MD, [facility] ([phone]), at 02/07/2021 3:[address] Lower Extremity [...] questions please contact the health home health aide caregiver that requested your imaging first. Other studies/procedures: Procedure(s): DEBRIDEMENT SKIN AND SUBCU, LOWER EXTREMITY (WRVU 1.01) IMANI [place] 02/13/2021 * Jacqui Lo RN - 02/13/2021 2:01 PM EDTSumcorrine: SHANTAL Progress Note IDR Rounds: Per provider: Patient not medically ready for discharge till next week. Patient likely to go home with IVABX and VNA services with support of family. Services: 1.?[facility] ?? PHONE: [phone] FAX: [phone] 2.[facility] ?[place] or ? 3.?Name: [employer] Tel.#: ext [phone] fax#: Equipment ordered:wound vac Transport: family A member of the Care Management team will continue to monitor progress, follow for continuity of care and assist with transition of care planning. Jacqui Lo RN, BSN, MST, ACM Senior Windows Systems Administrator pager#[phone] * Nilton Nicole MD - 02/13/2021 5:43 [...] (106-173)/(54-88) Intake/Output Summary (Last 24 hours) at 02/12/20211930 Last data filed at 02/12/2021 1830 Gross [...] SHANTAL Progress Note OFFICE OF CARE MANAGEMENT Senior Windows Systems Administrator Follow-up Note S/O: Discussed plan of care [...] s/p bivalve Current referrals in place: 1. [facility] PHONE: [phone] FAX: [phone] 2.[place], [place] or 3. Name: GABRIELE Tel.#:[phone] ext [phone] fax#: Equipment ordered:wound vac Pipe Testing Technician asking RS to please place referral to: [place], [place] or A: Patient is nearing medical readiness for discharge if Ortho is able to close her wound and her cultures come back negative so a PICC line can be placed for IVABX at discharge. Patient likely medically ready for discharge over the weekend. P:Senior Windows Systems Administrator to follow with team and family to assist with discharge needs when patient ready fordischarge. Jacqui Lo RN, Senior Windows Systems Administrator Pager #[phone] * Cami Ugarte, SREE - 02/12/2021 8:19 AM EDT Hospital Medicine Daily Progress Note [...] will let pt eat then NPO at [facility] for OR tomorrow - Pain well controlled with scheduled tylenol and prn oxycodone - Continues w/ bivalved cast NWB RUE w/ no pain Assessment & Plan: 60 y.o. female with past medical history of diabetes, hypothyroidism, depression, psoriasis, chronic headaches, presenting with complaints of left ankle swelling, pain, erythema and purulent drainageafter having ORIF on 01/21/2021 at [facility]. CT of the ankle showed LLE cellulitis with small abscess at the lateral malleolus. May be unable to go to OR as planned today for vac removal and wound closure due to ortho scheduling issues, waiting to confirm, if unable to go will let pt eat then make NPO at [place] for OR tomorrow. As above, pain adequately [...] cellulitis and abscess: -Following recent ORIF at [facility] s/p mechanical fall w/ fracture -Reported noncompliance [...] GI prophylaxis Home ppi DVT prophylaxis Lovenox PT/OT/CUSTOMER SOLUTIONS REPRESENTATIVE PT/OT Wound Care Anticipated Disposition TBD Code Status Attempt Cardiopulmonary Resuscitation - Inpatient Team Pager (MD coverage 14/03) [phone] PCP Maryuri Evans MD Family Update Family [...] questions please contact the health home health aide caregiver that requested your imaging first. Electronically signed by: Anthony Carrillo MD, [facility] ([phone]), at 02/07/2021 3:[address] Lower Extremity [...] questions please contact the health home health aide caregiver that requested your imaging first. Other studies/procedures: [...] Center 03/20/2021 1:00 PM CAST ROOM 3A [facility] [address] [place] [address] 03/20/2021 1:30 PM [facility] DX ROOM 3 Xray [facility] Rad 03/20/2021 2:20 PM Dorina Campbell, ADVANCE SCOUT [facility] [address] [place] [address] * Yamilex Ruiz, SLUBBER FRAME CHANGER - 02/11/2021 2:33 PM EDT Physical Therapy Note Treatment Number PT: 2 Patient profile: Jesenia Méndez??is a 60 y.o.??female??with PMH significant for ID T2DM, R elbow fusion with serial casting, and L ankle fracture S/P ORIF at [facility] (01/21/21)??who presented to the ED for??RUE cast [...] the following: Pain: Number Location At rest 10/01 ankle With activity /10 ankle Vital Signs: Stable Bed Mobility: up [...] Time in 14:18-14:28) YAMILEX RUIZ PTA Pager: [phone] Physical Therapy Inpatient Rehabilitation Department * Dali Guerrier, ADVANCE SCOUT - 02/11/2021 1:48 PM EDT [facility] Medicine Daily Progress Note Admit Date: [...] purulent drainageafter having ORIF on 01/21/2021 at [facility]. CT of the ankle showed LLE cellulitis [...] cellulitis and abscess: -Following recent ORIF at [facility] s/p mechanical fall w/ fracture -Reported noncompliance [...] GI prophylaxis Home ppr DVT prophylaxis Lovenox PT/OT/CUSTOMER SOLUTIONS REPRESENTATIVE PT/OT Wound Care Anticipated Disposition TBD Code [...] questions please contact the health home health aide caregiver that requested your imaging first. Electronically signed by: Anthony Carrillo MD, [facility] ([phone]), at 02/07/2021 3:[address] Lower Extremity [...] questions please contact the health home health aide caregiver that requested your imaging first. Other studies/procedures: Procedure(s): DEBRIDEMENT SKIN AND SUBCU, LOWER EXTREMITY (WRVU 1.01) Dali Guerrier APRN 02/11/2021 * Mable BrooksMARIE - 02/11/2021 12:47 PM EDT Occupational Therapy Treatment Note Treatment Number OT: 2 Patient Dx: Jesenia Méndez is a 60 y.o. female with PMH significant for ID T2DM, R elbow fusion with serial casting, and L ankle fracture S/P ORIF at [facility] (01/21/21)??who presented to the ED for??RUE cast [...] 4.06) performed by Wesley Jacobo MD at [facility] ? ? PRO DEBRIDEMENT SUBCUTANEOUS TISSUE 20 SQCM/< Left 02/08/2021 ?? DEBRIDEMENT SKIN AND SUBCU, LOWER EXTREMITY (WRVU 1.01) performed by Henrry Quiñones MD at [facility] OR ??? PRO FUSION/GRAFT OF ELBOW JOINT Right 2017 ?? ARTHRODESIS, ELBOW JOINT WITH AUTOGENOUS GRAFT (WRVU 14.32) performed by Christopher Correa MD at [facility] MAIN OR ??? PRO REMOVAL DEEP IMPLANT Right 2017 ?? REMOVAL OF IMPLANT, DEEP, ELBOW (WRVU 5.96) performed by Christopher Correa MD at [facility] MAIN OR ??? PRO REMOVAL ERUPTED TOOTH WITH ELEVATION OF MUCOPERIOSTEAL FLAP Bilateral 09/11/2019 ?? SURGICAL EXTRACTIONS REQUIRING ELEVATION OF MUCOPERIOSTEAL FLAP AND REMOVAL OF BONE OR SECTION OF TOOTH (WRVU 1.09) performed by Wesley Jacobo MD at [facility] Social History: Patient lives with [...] Total Minutes, Occupational Therapy: 30 (Schmx2) Pager: [phone] MARIE Thomas 02/11/2021 Occupational Therapy Rehabilitation Department * Nilton Nicole MD - 02/11/2021 5:54 AM EDT [facility] SURGERY INPATIENT PROGRESS NOTE Patient Name: [...] Center 03/20/2021 1:00 PM CAST ROOM 3A [facility]A [facility] 03/20/2021 1:30 PM [facility] DX ROOM 3 Xray [facility] Rad 03/20/2021 2:20 PM Dorina Campbell APRN [facility] [address] [place] [address] * Dali Guerrier APRN - 02/10/2021 3:40 PM EDT [facility] Medicine Daily Progress Note Admit Date: [...] purulent drainageafter having ORIF on 01/21/2021 at [facility]. CT of the ankle showed LLE cellulitis [...] cellulitis and abscess: -Following recent ORIF at [facility] s/p mechanical fall w/ fracture -Reported noncompliance [...] GI prophylaxis Home ppr DVT prophylaxis Lovenox PT/OT/CUSTOMER SOLUTIONS REPRESENTATIVE PT/OT Wound Care Anticipated Disposition TBD Code [...] questions please contact the health home health aide caregiver that requested your imaging first. Electronically signed by: Anthony Carrillo MD, [facility] ([phone]), at 02/07/2021 3:[address] Lower Extremity [...] questions please contact the health home health aide caregiver that requested your imaging first. Other studies/procedures: Procedure(s): DEBRIDEMENT SKIN AND SUBCU, LOWER EXTREMITY (WRVU 1.01) Dali Guerrier APRN 02/10/2021 * BlasToño MD - 02/10/2021 3:37 PM EDT [facility] SURGERY INPATIENT PROGRESS NOTE Patient Name: [...] Center 03/20/2021 1:00 PM CAST ROOM 3A [facility] [address] [place] [address] 03/20/2021 1:30 PM [facility] DX ROOM 3 MH Xray [facility] Rad 03/20/2021 2:20 PM Dorina Campbell APRN [facility] [address] [place] [address] * Jacqui Lo RN - 02/10/2021 3:27 PM EDTSumvalerioy: SHANTAL Progress Note OFFICE OF CARE MANAGEMENT Senior Windows Systems Administrator Follow-up Note S/O: Discussed plan of care [...] w/ possible closure, please keep NPO. The patient/instruments sales representative has been provided a list of Home Health Agencies/DME vendors which servetheir preferred geographic area. A letter describing our affiliations was reviewed with them and they were educated about their right to choose where referrals are placed. Patient requests referral to: 1. [facility] [employer]. PHONE: [phone] FAX: [phone] 2.[place], [place] or 3. Name: GABRIELE Tel.#: ext [phone] fax#: Equipment ordered:wound vac Expected date of discharge: 02/13?. Referral routed to the Occupational Therapist Home Based for matching with agency/vendor and to provide any required information. Patient lives with her father, son, DIL so she has someone available to assist her. Patient states that there is plenty of people to help her. A: Patient not medically ready for discharge. P:Senior Windows Systems Administrator to follow with team and family to assist with discharge needs when patient ready fordischarge. Jacqui Lo RN, Senior Windows Systems Administrator Pager #[phone] * Christy Huang RN - 02/10/2021 10:49 AM EDT 1035: Received from OR VSS awake and alert Requesting lunch tray. Endorses 07/01 pain * Clementine Sanchez, PT - 02/10/2021 10:15 AM EDT [facility]AR[facility] for I&D and wound vac change. Progress to slideboard and WC mobility in preparation for safe transfers and eventual home discharge. * Delfina Marr OT - 02/10/2021 9:01 AM EDT Occupational Therapy Contact Note 02/10/21 0900 OT Time and Intention Document Type contact Mode of Treatment occupational therapy Total Minutes, Occupational Therapy 0 Session Not Performed patient unavailable for treatment Comment, Session Not Performed Pt scheduled for repeat I&D with possible closure today. Will f/u post op as appropriate/able. Delfina Marr, OTR/L Inpatient Rehab Pager: [phone] * Seth Yarbrough MD - 02/10/2021 5:54 [...] Intake/Output Summary (Last 24 hours) at 02/10/2021 0519 Last data filed at 02/10/2021 0434 Gross [...] Center 03/20/2021 1:00 PM CAST ROOM 3A [facility] [address] [place] [address] 03/20/2021 1:30 PM [facility] DX ROOM 3 Xray [facility] Rad 03/20/2021 2:20 PM oDrina Campbell APRN [address] * Anita Sosa RN - 02/10/2021 5:38 [...] N/A CPG GOAL OUTCOME EVALUATION: * Dali Guerrier, ADVANCE SCOUT - 02/09/2021 2:39 PM EDT [facility] Medicine Daily Progress Note Admit Date: [...] purulent drainageafter having ORIF on 01/21/2021 at [facility]. CT of the ankle showed LLE cellulitis with small abscess at the lateral malleolus. OR planned for 02/10. Patient continues with wound vac to RLE. She endorses some increasing pain wound vac site. Pain relieved with PRN oxycodone. Patient remains hemodynamically stable. Continues on vancomycin. ?? #LLE cellulitis and abscess: -Following recent ORIF at [facility] s/p mechanical fall w/ fracture -Reported noncompliance [...] GI prophylaxis Home ppr DVT prophylaxis Lovenox PT/OT/CUSTOMER SOLUTIONS REPRESENTATIVE PT/OT Wound Care Anticipated Disposition TBD Code Status Attempt Cardiopulmonary Resuscitation - Inpatient Team Pager (MD coverage 14/03) [phone] PCP Maryuri Evans MD Family Update Family [...] following: Labs: LABS: Recent Labs 02/09/21 0513 02/08/21 0319 02/07/21 1503 WBC 8.4 8.6 9.9* HGB 12.5 13.0 13.8 HCT 38.3 39.7 41.8 PLATELET 147 165 170 Recent Labs 02/09/21 0513 02/08/21 0319 02/07/21 1503 NA 141 136 135 K 3.8 3.7 4.1 CL 110* 102 102 CO2 21* 23 22 BUN 12 13 12 CREATININE 0.92 0.96 1.00 No results for input(s): AST, ALT, ALKPHOS, BILITOT, BILIDIR in the last 168 hours. Recent Labs 02/09/21 0513 02/08/21 0319 02/07/21 1503 CALCIUM 8.9 9.0 9.3 No results [...] questions please contact the health home health aide caregiver that requested your imaging first. Electronically signed by: Anthony Carrillo MD, [facility] ([phone]), at 02/07/2021 3:[address] Lower Extremity [...] questions please contact the health home health aide caregiver that requested your imaging first. Other studies/procedures: [...] met medical necessity to require an inpatient I level of care meeting a minimum of two midnights or is on the [facility] inpatient only procedure list (status C) due [...] and L ankle fracture S/P ORIF at [facility] (01/21/21) who presented to the ED for [...] 4.06) performed by Wesley Jacobo MD at [facility] ? ? PRO DEBRIDEMENT SUBCUTANEOUS TISSUE 20 SQCM/< Left 02/08/2021 DEBRIDEMENT SKIN AND SUBCU, LOWER EXTREMITY (WRVU 1.01) [facility] ??? PRO FUSION/GRAFT OF ELBOW JOINT Right 2017 ARTHRODESIS, ELBOW JOINT WITH AUTOGENOUS GRAFT (WRVU 14.32) performed by Christopher Correa MD at [facility] MA[facility] OR ??? PRO REMOVAL DEEP IMPLANT Right 2017 REMOVAL OF IMPLANT, DEEP, ELBOW (WRVU 5.96) performed by Christopher Correa MD at [facility] MA[facility] OR ??? PRO REMOVAL ERUPTED TOOTH WITH ELEVATION OF MUCOPERIOSTEAL FLAP Bilateral 09/11/2019 SURGICAL EXTRACTIONS REQUIRING ELEVATION OF MUCOPERIOSTEAL FLAP AND REMOVAL OF BONE OR SECTION OF TOOTH (WRVU 1.09) performed by Wesley Jacobo MD at [facility] Social History: Lives with her [...] evaluation and TEF CLEMENTINE SANCHEZ, PT Pager: [phone] Physical Therapy Inpatient Rehabilitation Department * Nilton [...] Center 03/20/2021 1:00 PM CAST ROOM 3A [facility] OR[facility] 3A [facility] 03/20/2021 1:30 PM [facility] DX ROOM 3 Xray [facility] Rad 03/20/2021 2:20 PM Dorina Campbell APRN [address] * Toño Odonnell MD - 02/08/2021 4:21 PM EDT ORTHOPAEDIC [...] Center 03/20/2021 1:00 PM CAST ROOM 3A [facility] 3A [facility] 03/20/2021 1:30 PM [facility] DX ROOM 3 MH Xray [facility] Rad 03/20/2021 2:20 PM Dorina Campbell APRN [facility] [address] [place] [address] * Selina Ramirez RN - 02/08/2021 1:57 PM EDTSummary: [facility] OCM: VNA/vendor choice The patient/instruments sales representative has been provided a list of Home Health Agencies/DME vendors which servetheir preferred geographic area. Patient lives in [facility] covered only by [facility] [employer]. She had been referred to this agency in the past. There would be no other VNA choices. N/A: A letter describing our affiliations was reviewed with them and they were educated about theirright to choose where referrals are placed. Discussed [facility] Star Quality Rating for Home care report. Patient requests referral to [facility] [employer] PHONE: [phone] FAX: [phone]. Expected date of discharge: 3-5 days. Referral routed to the Occupational Therapist Home Based for matching with agency/vendor and to provide any required information. Selina [facility] W[facility]E acura sales consultant Pager: [phone] * Ingrid Yañez RN - 02/08/2021 10:48 [...] given to RN on 1W. * Cami Ugarte, ADVANCE SCOUT - 02/08/2021 7:39 AM EDT [facility] Medicine Daily Progress Note Admit Date: [...] purulent drainageafter having ORIF on 01/21/2021 at [facility]. CT of the ankle showed LLE cellulitis [...] cellulitis and abscess: -Following recent ORIF at [facility] s/p mechanical fall w/ fracture -Reported noncompliance [...] GI prophylaxis Home ppr DVT prophylaxis Lovenox PT/OT/CUSTOMER SOLUTIONS REPRESENTATIVE PT/OT Wound Care Anticipated Disposition TBD Code Status Attempt Cardiopulmonary Resuscitation - Inpatient Team Pager ( coverage 14/03) [phone] PCP Maryuri Evans MD Family Update Family [...] the following: Labs: LABS: Recent Labs 02/08/21 03102/07/21 1503 WBC 8.6 9.9* HGB 13.0 13.8 [...] questions please contact the health home health aide caregiver that requested your imaging first. Electronically signed by: Anthony Carrillo MD, [facility] ([phone]), at 02/07/2021 3:[address] Lower Extremity [...] questions please contact the health home health aide caregiver that requested your imaging first. Other studies/procedures: [...] of two midnights or is on the [facility] inpatient only procedure list (status C) due [...] ground level mechanical falls who presented to [facility] ED from home with drainage from LT [...] L ankle infection s/p ORIF ATTENDING: Dr. Quiñones Patient Active Problem List Diagnosis Code ??? [...] Center 03/20/2021 1:00 PM CAST ROOM 3A [facility] [address] [place] [address] 03/20/2021 1:30 PM [facility] DX ROOM 3 MH Xray [facility] Rad 03/20/2021 2:20 PM Dorina Campbell APRN [facility] [address] [place] [address] Associated attestation - Henrry Quiñones MD - [...] of a left ankle fracture at the [facility]. She presented in follow-up for [...] 02/12/2021 5:57 AM EDT 24-HOUR UPDATE Jesenia Sandhus's history and physical exam have been reviewed and completed. There has been no interval change from that of the pre-operative history and physical exam done within the last 30 days. CV: RRR, no RMG Pulm: LCTAB Plan for left leg I&D today Seth Sawyer. MD Zenon P. [phone] 02/12/21 5:57 AM Associated attestation [...] 02/10/2021 5:57 AM EDT 24-HOUR UPDATE Jesenia Coyle Honey's history and physical exam have been reviewed [...] Psoriasis ID: 60 y.o. Female presents to [facility] with left ankle pain and drainage. History of Present Illness: STEVO Méndez is a 60 y.o. female with past medical history of diabetes, hypothyroidism, depression, psoriasis, chronic headaches, presenting with complaints of left ankle swelling, pain and purulent drainage. Ms Méndez recently underwent open reduction and internal fixation on January 21, [address] [facility] for left ankle fracture that she suffered [...] plate, and had cast exchange done at [facility] Ortho clinic yesterday. She reported that her [...] 4.06) performed by Wesley Jacobo MD at [facility] ??? PRO FUSION/GRAFT OF ELBOW JOINT Right 2017 ARTHRODESIS, ELBOW JOINT WITH AUTOGENOUS GRAFT (WRVU 14.32) performed by Christopher Correa MD at [facility] MA[facility] OR ??? PRO REMOVAL DEEP IMPLANT Right 2017 REMOVAL OF IMPLANT, DEEP, ELBOW (WRVU 5.96) performed by Christopher Correa MD at [facility] MAIN OR ??? PRO REMOVAL ERUPTED TOOTH WITH ELEVATION OF MUCOPERIOSTEAL FLAP Bilateral 09/11/2019 SURGICAL EXTRACTIONS REQUIRING ELEVATION OF MUCOPERIOSTEAL FLAP AND REMOVAL OF BONE OR SECTION OF TOOTH (VU 1.09) performed by Wesley Jacobo MD at [facility] Prior To Admission Medications: (Not [...] questions please contact the health home health aide caregiver that requested your imaging first. Electronically signed by: Anthony Carrillo MD, [facility] ([phone]), at 02/07/2021 3:[address] Lower Extremity [...] questions please contact the health home health aide caregiver that requested your imaging first. Other Studies: None Assessment: 60 y.o. female with past medical history of diabetes, hypothyroidism, depression, psoriasis, chronic headaches, presenting with complaints of left ankle swelling, pain, erythema and purulent drainageafter having ORIF on 01/21/2021 at [facility]. CT of the ankle showed LLE cellulitis [...] to the planned procedure. Hand Hygiene: The insole taper did perform hand hygiene prior to line insertion. Catheter type: PICC Lot number: [id number] Procedure Technique: Skin was prepped with chlorhexidine. [...] and L ankle fracture S/P ORIF at [facility] (01/21/21) who presented to the ED for [...] fracture performed 01/21 by orthopedic surgery at [facility]. She notes that she has also had intermittent chills but has not taken her temperature. Overall she has been very unhappy with her care at [facility] notes that they dismissed her concerns about an infection and suggested she was narcotic seeking. She would like to transfer all her orthopedic care to [facility] for this reason. Denies any lightheadedness, nausea, [...] questions please contact the health home health aide caregiver that requested your imaging first. Ankle Min 3 views Left (Generic) Final [...] questions please contact the health home health aide caregiver that requested your imaging first. Electronically signed by: Anthony Carrillo MD, [facility] ([phone]), at 02/07/2021 3:44 PM ASSESSMENT & PLAN MDM: Jesenia Méndez is a 60 y.o. female with PMH significant for ID T2DM, R elbow fusion with serial casting, and L ankle fracture S/P ORIF at [facility] (01/21/21) who presented to the ED for [...] 5 mg po given w/ no effect. MD notified, prn Oxycodone dose changed, 10 mg po given x 1 w/little effect. Patient states her pain got worse after the wound vac change and that the splint is on too tight. Talked w/ and given permission to rewrap splint. Patient states her pain is much better. Denies any numbness or tingling to LLE or RUE. Able to move all digits and toes. RUE & LUE elevated on pillows throughout shift, NWB status maintained. Blood glucose managed per orders, supplemental insulin provided. Ambulating Ax1 w/ FWW stand pivot to [facility]. PLAN MOVING FORWARD: Monitor VS, labs, I/O's [...] drainage after having ORIF on 01/21/2021 at [facility]. CT of the ankle showed LLE cellulitis [...] questions please contact the health home health aide caregiver that requested your imaging first. Lower Extremity [...] questions please contact the health home health aide caregiver that requested your imaging first. Ankle Min 3 views Left (Generic) (Exam [...] questions please contact the health home health aide caregiver that requested your imaging first. PICC Placement Over 5 Years with Imaging [...] questions please contact the health home health aide caregiver that requested your imaging first. Angiogram Lower Extremity Left (Generic) (Exam End: [...] questions please contact the health home health aide caregiver that requested your imaging first. Assessment: 60 y.o.??female??with L ankle wound s/p L ankle hardware removal and washouts with ortho for LLE cellulitis and abscess following ORIF on 01/21/2021 at [facility]. Recommendations: Plan for soft tissue coverage pending discussion with Dr. Franklin. Tentatively scheduling about two weeks from now. Corina Medrano MD 02/17/2021 11:50 AM Thank you for this consult. Please do not hesitate to page [phone] if you have any questions or concerns. [...] according to MAR with good relief. Tylenol administered according to [...] Keith MD - 02/14/2021 4:22 PM EDT [facility] Operative Note Patient Name: Jesenia Méndez : [id number] MR#: [id number] Case Date: 02/14/2021 Surgeon: Surgeon(s) and Role: [...] planned surgery, and site according to the [facility] [place] Protocol. 1 black sponge and white what [...] recently received oxycodone; administered tylenol according to OCT with fair effect. Wound vac in place on LLE, leg elevated on pillows. Pt had L SL PICC placement today, no complaints. Education given on CHG andinfection prevention with PICC. Vanco level obtained and sent to lab (see results). Pt had debridement today. Vanco administered according to OCT by RN in PACU. Sacral mepilex on [...] (PICC) Teaching Sheet Peripherally inserted central catheters ([id number]) (PICC) are used when you need IV [...] midline catheter? PICC lines are used for mcc treatments. PICC lines may be used for [...] can be set up via the nurse Senior Windows Systems Administrator to help you. What are possible complications [...] Vascular Access Device Selection, Insertion, and Management, [employer] 05/26. A Review of the Efficacy, Safety, Use, and Administration of [employer], [employer] 2006 * Plan of Care - Liane Gaming RN - 02/14/2021 4:22 AM EDT OUTCOME EVALUATION NOTE: OUTCOME SUMMARY: Jesenia is here for LLE cellulitis with abscess. Alert and oriented x4, vitals signs stable. Reports 9/10 LLE pain, prn oxycodone administered, wound vac [...] Operative Note Patient Name: Jesenia Méndez : [id number] MR#: [id number] Case Date: 02/12/2021 Surgeon: Surgeon(s) and Role: * Sabrina Capellan MD - Primary * Toño Odonnell MD - Resident Preoperative diagnosis: left ankle [...] Odonnell MD - 02/12/2021 4:55 PM EDT [facility] Operative Note Patient Name: Jesenia Méndez : [id number] MR#: [id number] Case Date: 02/12/2021 Surgeon: Surgeon(s) and Role: [...] with one black sponge. The wound measured 4w2w4ay. The patient was then placed in a [...] I&D. She underwent ORIF left ankle at [facility] on 01/21/21 a day after she [...] Yarbrough MD - 02/10/2021 10:02 AM EDT [facility] Operative Note Patient Name: Jesenia Méndez : [id number] MR#: [id number] Case Date: 02/10/2021 Surgeon: Surgeon(s) and Role: * Jacobo De La Cruz MD - Primary * Seth Yarbrough MD - Resident Preoperative diagnosis: Left ankle infection Postoperative diagnosis: Left ankle infection Procedure: 1) Debridement Skin, subq, muscle, bone - 26104 Findings: Gross purulence under pressure distal to [...] OUTCOME EVALUATION: * Initial Assessments - Delfina Marr OT - 02/09/2021 10:25 AM EDT Occupational Therapy Evaluation Patient profile: Jesenia Méndez is a 60 y.o. female with PMH significant for ID T2DM, R elbow fusion with serial casting, and L ankle fracture S/P ORIF at [facility] (01/21/21)??who presented to the ED for??RUE cast [...] 4.06) performed by Wesley Jacobo MD at [facility] ? ? PRO DEBRIDEMENT SUBCUTANEOUS TISSUE 20 SQCM/< Left 02/08/2021 DEBRIDEMENT SKIN AND SUBCU, LOWER EXTREMITY (WRVU 1.01) [facility] ??? PRO FUSION/GRAFT OF ELBOW JOINT Right 2017 ARTHRODESIS, ELBOW JOINT WITH AUTOGENOUS GRAFT (WRVU 14.32) performed by Christopher Correa MD at [facility] OR ??? PRO REMOVAL DEEP IMPLANT Right 2017 REMOVAL OF IMPLANT, DEEP, ELBOW (WRVU 5.96) performed by Christopher Correa MD at [facility] OR ??? PRO REMOVAL ERUPTED TOOTH WITH ELEVATION OF MUCOPERIOSTEAL FLAP Bilateral 09/11/2019 SURGICAL EXTRACTIONS REQUIRING ELEVATION OF MUCOPERIOSTEAL FLAP AND REMOVAL OF BONE OR SECTION OF TOOTH (WRVU 1.09) performed by Wesley Jacobo MD at [facility] Social History: Patient lives with [...] precautions Vision & Perception: ?? corrective lenses time motion analyst Communication: WFL Range of motion, strength, coordination: [...] is between inpatient rehab vs home with [employer] & 24/7 support/assistance - pending pt progress during her inpatient hospitalization. Equipment needs at discharge: TBD Anticipated Discharge Disposition (OT): inpatient rehabilitation facility (vs home with [employer] & 24/7 support/assistance ) Other Recommendations: ?? Utilize upright [...] and measurable assessment of functional outcome. Pager: [phone] Delfina Marr, OTR/L 02/09/2021 Occupational Therapy Rehabilitation [...] EVALUATION: * Consult Note - Yani Cheng [facility] - 02/08/2021 11:15 PM EDT Clinical Pharmacist Note - NicholasFD Jesenia Méndez [id number] Jesenia Méndez is a 60 y.o. [...] any questions you may have. Alternately,during off-hours (9p-) you may call [phone] to contact a pharmacist. Yani Cheng RPH [...] Office of Care Management Initial Assessment Selina A Ramirez, RN reviewed record and discussed patient with Care Team. Source of Information: Team, bedside nurse, medical record, and Chart Review, Other (patient unavailable; taken to the OR for LLE ankle debridement with wound vac placement) 02/08/2021 Presenting chief complaint: Pain and swelling in right upper extremity cast and left ankle erythema, drainage status post ORIF at [facility] Introduced self/reviewed role; services accepted. Patient had received pain medication and was Reason for Hospitalization: pain Last COVID test: not tested Past medical History: History reviewed. No pertinent past medical history. S/P ORIF left ankle fracture 01/21/2021 at [facility]; fracture sustained 01/11/2021 Active Non-Hospital Problems ?? Diagnosis ??? H/O insulin dependent diabetes mellitus ??? H/O: depression ??? Hypothyroidism ??? h/o chronic headaches ??? Closed fracture of shaft of right ulna with known elbow arthrodesis RIGHT ??? Chronic pain in left shoulder ??? S/P R elbow fusion on 12/14/17 Correa ??? Psoriasis ?? Hospitalizations Within the Past 30 Days: [facility] 01/21/2021 Current Decision-Making Capacity: Self Advance Care Planning: Attempt Cardiopulmonary Resuscitation - Inpatient <no information> -Advanced Directive: No, need to discuss (father Jacobo Méndez is surrogate healthcare decision-maker) If AD's have not been completed father Jacobo Méndez would be surrogate decision maker [place] decision making law. (Only good for 90 days) Any patient receiving care at [facility] must abide by [place] law. The hierarchy for surrogate decision making [...] (i) The agent with financial power of health care attorney or a conservator appointed in accordance [...] in [place] 02/08/2021 Home Address listed as: [facility] [address] [facility] [address] Social & Family Supports: All names listed below confirmed with patient as current and correct Extended Emergency Contact Information Primary Emergency Contact: Wilmar Méndezuel Address: [address] [place] [address] [facility] [place] Relation: Father Current Care Provided by: [...] Insurance: N/A Prescription Coverage: Yes Preferred Pharmacy: [facility] [address] [address] Status: Patient is a : unable to assess (most likely not but did not confirm) Primary Care Provider: Maryuri Evans MD [phone] Patient/Caregiver Goals of Treatment: healing of L ankle without complication Potential Needs for Transition of Care: Additional help at home VNA referral Home wound VAC Agency Referrals: The patient/caregivers were provided with a list of homecare agencies which servetheir preferred geographic location and they were educated about their right to choose where referrals are placed. Patient/Caregiver requests referral to homecare agencies. [facility] PHONE: [phone] FAX: [phone] NB: Patient had a referral placed following [facility] encounter but was not seen; reason unknown. Transportation: private vehicle v [place] Medicaid transportation Transportation Anticipated: yes, may need assistance from [facility] OCM care team for ride Concerns to [...] towards recovery. She was discharged home from [facility]. VNA referral routed to OCM Occupational Therapist Home Based. Notify OCM RNCM regarding possible wound vac [...] transition of care planning. Selina Ramirez RNCM [facility] w/e acura sales consultant Pager: [phone] * Op Note - Yani Dumas MD - 02/08/2021 11:30 AM EDT [facility] Operative Note Patient Name: Jesenia Méndez : [id number] MR#: [id number] Case Date: 02/08/2021 Surgeon: Surgeon(s) and Role: [...] of a left ankle fracture at the [facility]. She presented to the [facility] emergency department with a symptomatic cast which [...] A timeout was held in accordance with [facility] policy verifying the patient's name, date of [...] Operative Note Patient Name: Jesenia Méndez : [id number] MR#: [id number] Case Date: 02/08/2021 Surgeon: Surgeon(s) and Role: [...] EDT ORTHOPAEDIC SURGERY CONSULT NOTE ATTENDING: Dr. De La Cruz Jesenia Méndez is a 60 y.o. female who presents to see us in consultation today at the request ofNo att. providers found. CHIEF COMPLAINT: Pain and swelling in right upper extremity cast and left ankle erythema, drainage status post ORIF at [facility] HPI: Jesenia Méndez is a 60 y.o. [...] open reduction internal fixation on 01/21/[address] [facility]. She reports drainage persistently ever since the [...] data in the 24 hours ending 02/07/21 3564 Body mass index is 33.47 kg/m??. PHYSICAL [...] left ankle fracture performed on 01/21/2021 at [facility] (Dr. Henson). Patient has persistent drainage as [...] evaluation and treatment. Please page Orthopaedic consults [phone]) with any questions or concerns. ?? Trudi Vann MD P. [phone] 02/07/21 5:34 PM Future Appointments Date Time Provider Department Center 03/20/2021 1:00 PM CAST ROOM 3A [facility] ORTH 3A [facility] 03/20/2021 1:30 PM [facility] DX ROOM 3 Xray [facility] Rad 03/20/2021 2:20 PM Dorina Campbell APRN [facility] ORTH [address] [place] [address] Addendum: Patient seen and examined again following [...] internal fixation for this on 01/21/2021 at [facility]. With regard to her arm she did [...] Debridement Bone Muscle &/Fascia 20 Sq Cm/< (78069) 02/14/2021 4:08 PM EDT infected ankle wound [...] ASPIRATE CULTURE Routine 02/12/2021 5:43 PM EDT POCT GLUCOSE Routine 02/12/2021 3:39 PM EDT [...] ASPIRATE CULTURE Routine 02/10/2021 10:02 AM EDT DEBRIDEMENT SKIN AND SUBCU, LOWER [...] ASPIRATE CULTURE Routine 02/08/2021 10:30 AM EDT POCT GLUCOSE Routine 02/08/2021 7:57 AM EDT [...] (ABNORMAL) POCT Glucose (02/18/2021 3:53 PM EDT) [facility] Signature Glucose, POC 234(H) 65 - 199 mg/dL [facility] Comment: Supplemental ranges: <140 mg/dL before meals <180 mg/dL all other times of the day Blood 02/18/2021 3:53 PM EDT 02/18/2021 3:53 PM EDT Yunior Rodriguez DO POINT OF CARE TEST O RDERABLES Performing Organization Address City/[facility]/ZIP Co de Phone Number [facility] [place] [address] * POCT Glucose (02/18/2021 11:17 AM EDT) Glucose, POC 181 65 - 199 mg/dL [facility] Comment: Supplemental ranges: <140 mg/dL before meals <180 mg/dL all other times of the day Blood 02/18/2021 11:1 7 AM EDT 02/18/2021 11:17 AM EDT Yunior Rodriguez DO POINT OF CARE TEST O VIKKI Performing Organization Address [facility]/ZIP Co de Phone Number [facility] [place] [address] * (ABNORMAL) Hepatic Function Panel (02/18/2021 10:35 AM EDT) Protein, Total 7.0 6.1 - 8.0 gm/dL [facility] Albumin 3.7 3.2 - 5.2 gm/dL [facility] Aspartate Aminotransferase 27 0 - 30 unit/L [facility] Alanine Aminotransferase 17 0 - 30 unit/L [facility] Alkaline Phosphatase 122(H) 35 - 105 unit/L [facility] Bilirubin, Total 0.2 0.2 - 1.3 mg/dL [facility] Bilirubin, Direct 0.1 0.0 - 0.3 mg/dL [facility] Blood 02/18/2021 10:3 5 AM EDT 02/18/2021 10:41 AM EDT Narrative Resulting Agency Comment Spec In Lab Cami Ugarte ADVANCE SCOUT CHEMISTRY ORDERABLES Performing Organization Address [facility] Co de Phone Number [facility] [place] [address] * (ABNORMAL) POCT Glucose (02/18/2021 8:35 AM EDT) Pathologist [facility] Glucose, POC 225(H) 65 - 199 mg/dL [facility] Comment: Supplemental ranges: <140 mg/dL before meals <180 mg/dL all other times of the day Blood 02/18/2021 8:35 AM EDT 02/18/2021 8:35 AM EDT Yunior Rodriguez DO POINT OF CARE TEST O RDERABLES Performing Organization Address [facility] Co de Phone Number [facility] [place] [address] * (ABNORMAL) CRP, acute inflammation (02/18/2021 6:10 AM EDT) [facility] C-Reactive Protein 29.1(H) <=4.9 mg/L [facility] Blood Venous Draw / Unknown 02/18/2021 6:10 AM EDT 02/18/2021 6:35 AM EDT Narrative Resulting Agency Comment Spec In Lab Cami Ugarte ADVANCE SCOUT CHEMISTRY ORDERABLES Performing Organization Address [facility] Co de Phone Number [facility] [place] [address] * (ABNORMAL) Differential, Automated (02/18/2021 6:10 AM EDT) [facility] Neutrophil % 73.3 % [facility] Neutrophil Absolute 6.98(H) 1.70 - 6.10 x10(3)/mc L [facility] Lymph % 18.8 % [facility] Lymphocytes Abs 1.8 0.9 - 3.2 x10(3)/mc L [facility] Monocyte % 4.8 % [facility] Monocyte Abs 0.5 0.3 - 0.9 x10(3)/[facility] Eos % 1.9 % [facility] Eosinophils Abs 0.2 0.0 - 0.4 x10(3)/[facility] Basophil % 0.4 % [facility] Baso Absolute 0.0 0.0 - 0.1 x10(3)/[facility] Immature Gran % 0.80 % [facility] Comment: Immature granulocytes(IG's)percentage and absolute count will include metamyelocytes, myelocytes, and promyelocytes. Blood smears from CBCs yielding IG's will be scanned manually for concordance. If this scan disagrees with the automated IG or if promyelocytes are noted, a manual differential will be performed. Immature Gran Absolute 0.08(H) 0.00 - 0.04 x10(3)/[facility] Blood 02/18/2021 6:10 AM EDT 02/18/2021 6:30 AM EDT Narrative Resulting Agency Comment Spec In Lab Cami Ugarte ADVANCE SCOUT HEMATOLOGY ORDERABLE S [facility] [place] [address] * (ABNORMAL) Hemogram (02/18/2021 6:10 AM EDT) White Blood Cell 9.5 4.0 - 9.5 x10(3)/ L [facility] Red Blood Cell 3.64(L) 4.00 - 5.21 x10(6)/[facility] Hemoglobin 10.5(L) 11.7 - 15.5 gm/dL [facility] Hematocrit 33.1(L) 35.7 - 45.8 % [facility] Mean Cell Volume 90.9 82.6 - 94.4 fL [facility] Mean Cell Hemoglobin 28.8 27.1 - 32.0 pg [facility] Mean Cell Hemoglobin Concentration 31.7 31.7 - 35.0 gm/dL [facility] Platelet 311 145 - 357 x10(3)/mc L [facility] RDW Standard Deviation 45.1 37.0 - 46.0 fL [facility] RDW coefficient of variation 14.1 11.5 - 14.1 % [facility] Mean Platelet Volume 10.5 7.6 - 12.9 fL [facility] NRBC% auto 0.0 % [facility] NRBC Absolute 0.000 0.000 - 0.000 x10(3)/mc L [facility] Blood 02/18/2021 6:10 AM EDT 02/18/2021 6:30 AM EDT Narrative Resulting Agency Comment Spec In Lab Cami Ugarte ADVANCE SCOUT HEMATOLOGY ORDERABLE S [facility] [place] [address] * Phosphorus (02/18/2021 6:10 AM EDT) Phosphorus 3.4 2.5 - 4.5 mg/dL [facility] Blood 02/18/2021 6:10 AM EDT 02/18/2021 6:30 AM EDT Narrative Resulting Agency Comment Spec In Lab Cami Ugarte ADVANCE SCOUT CHEMISTRY ORDERABLES [facility] [place] [address] * Magnesium (02/18/2021 6:10 AM EDT) Magnesium 0.96 0.69 - 1.07 mmol/L [facility] Blood 02/18/2021 6:10 AM EDT 02/18/2021 6:30 AM EDT Narrative Resulting Agency Comment Spec In Lab Cami Sawyer Torito [place] CHEMISTRY ORDERABLES [facility] [place] [address] * (ABNORMAL) Basic Metabolic Panel (non-fasting) (02/18/2021 6:10 AM EDT) Glucose 221(H) 65 - 199 mg/dL [facility] Comment:Diabetes: >=200 mg/d L plus symptoms Blood Urea Nitrogen 13 8 - 18 mg/dL [facility] Creatinine 0.84 0.70 - 1.20 mg/dL [facility] Sodium 138 135 - 145 mmol/L [facility] Potassium 3.8 3.5 - 5.0 mmol/L [facility] Comment: Please note: ??Patients with WBC >100,000 may have falsely elevated Potassium levels. ??For accurate Potassium quantification in these patients send serum separator tube (gold top) for subsequent determinations. ??Contact the Clinical Chemistry Laboratory if there are any questions. Chloride 104 98 - 107 mmol/L [facility] Carbon Dioxide 26 22 - 31 mmol/L [facility] Anion Gap 8 5 - 15 mmol/L [facility] Calcium 9.1 8.5 - 10.5 mg/dL [facility] Est Glomerular Filtration Rate 76 >=60 mL/min/1. 73 m?? [facility] Comment: This patient? s estimated [...] Ugarte APRN CHEMISTRY ORDERABLES Performing Organization Address [facility] Co de Phone Number [facility] [place] [address] * (ABNORMAL) POCT Glucose (02/17/2021 11:44 PM EDT) Glucose, POC 202(H) 65 - 199 mg/dL [facility] Comment: Supplemental ranges: <140 mg/dL before meals <180 mg/dL all other times of the day Blood 02/17/2021 11:4 4 PM EDT 02/17/2021 11:44 PM EDT Yunior Rodriguez DO POINT OF CARE TEST O RDERABLES Performing Organization Address [facility] Co de Phone Number [facility] [place] [address] * POCT Glucose (02/17/2021 8:09 PM EDT) Glucose, POC 142 65 - 199 mg/dL [facility] Comment: Supplemental ranges: <140 mg/dL before meals <180 mg/dL all other times of the day Blood 02/17/2021 8:09 PM EDT 02/17/2021 8:09 PM EDT Yunior Rodriguez DO POINT OF CARE TEST O RDERABLES Performing Organization Address [facility] Co de Phone Number [facility] [place] [address] * POCT Glucose (02/17/2021 4:21 PM EDT) Glucose, POC 191 65 - 199 mg/dL [facility] Comment: Supplemental ranges: <140 mg/dL before meals <180 mg/dL all other times of the day Blood 02/17/2021 4:21 PM EDT 02/17/2021 4:21 PM EDT Yunior Rodriguez DO POINT OF CARE TEST O RDERABLES Performing Organization Address City/[facility]/ZIP Co de Phone Number [facility] [place] [address] * POCT Glucose (02/17/2021 12:00 PM EDT) Glucose, POC 155 65 - 199 mg/dL [facility] Comment: Supplemental ranges: <140 mg/dL before meals <180 mg/dL all other times of the day Blood 02/17/2021 12:0 0 PM EDT 02/17/2021 12:00 PM EDT Yunior Rodriguez DO POINT OF CARE TEST O RDERABLES Performing Organization Address [facility]/ZIP Co de Phone Number [facility] [place] [address] * (ABNORMAL) POCT Glucose (02/17/2021 8:36 AM EDT) Glucose, POC 239(H) 65 - 199 mg/dL [facility] Comment: Supplemental ranges: <140 mg/dL before meals <180 mg/dL all other times of the day Blood 02/17/2021 8:36 AM EDT 02/17/2021 8:36 AM EDT Yunior Yasmin Michael TEE POINT OF CARE TEST O RDERABLES Performing Organization Address City/[facility]/ZIP Co de Phone Number [facility] [place] [address] * (ABNORMAL) Differential, Automated (02/17/2021 4:10 AM EDT) Neutrophil % 69.5 % [facility] Neutrophil Absolute 6.21(H) 1.70 - 6.10 x10(3)/mc L [facility] Lymph % 20.8 % [facility] Lymphocytes Abs 1.9 0.9 - 3.2 x10(3)/ L [facility] Monocyte % 5.9 % [facility] Monocyte Abs 0.5 0.3 - 0.9 x10(3)/ L [facility] Eos % 1.7 % [facility] Eosinophils Abs 0.2 0.0 - 0.4 x10(3)/ L [facility] Basophil % 0.4 % [facility] Baso Absolute 0.0 0.0 - 0.1 x10(3)/[facility] Immature Gran % 1.70 % [facility] Comment: Immature granulocytes(IG's)percentage and absolute count will include metamyelocytes, myelocytes, and promyelocytes. Blood smears from CBCs yielding IG's will be scanned manually for concordance. If this scan disagrees with the automated IG or if promyelocytes are noted, a manual differential will be performed. Immature Gran Absolute 0.15(H) 0.00 - 0.04 x10(3)/[facility] Blood 02/17/2021 4:10 AM EDT 02/17/2021 4:19 AM EDT Narrative Resulting Agency Comment Spec In Lab Cami Ugarte ADVANCE SCOUT HEMATOLOGY ORDERABLE S [facility] [place] [address] * (ABNORMAL) Hemogram (02/17/2021 4:10 AM EDT) White Blood Cell 8.9 4.0 - 9.5 x10(3)/[facility] Red Blood Cell 3.44(L) 4.00 - 5.21 x10(6)/ L [facility] Hemoglobin 10.0(L) 11.7 - 15.5 gm/dL [facility] Hematocrit 30.9(L) 35.7 - 45.8 % [facility] Mean Cell Volume 89.8 82.6 - 94.4 fL [facility] Mean Cell Hemoglobin 29.1 27.1 - 32.0 pg [facility] Mean Cell Hemoglobin Concentration 32.4 31.7 - 35.0 gm/dL [facility] Platelet 305 145 - 357 x10(3)/mc L [facility] RDW Standard Deviation 44.1 37.0 - 46.0 fL [facility] RDW coefficient of variation 13.8 11.5 - 14.1 % [facility] Mean Platelet Volume 10.5 7.6 - 12.9 fL [facility] NRBC% auto 0.0 % [facility] NRBC Absolute 0.000 0.000 - 0.000 x10(3)/mc L [facility] Blood 02/17/2021 4:10 AM EDT 02/17/2021 4:19 AM EDT Narrative Resulting Agency Comment Spec In Lab Cami Ugarte ADVANCE SCOUT HEMATOLOGY ORDERABLE S [facility] [place] [address] * Phosphorus (02/17/2021 4:10 AM EDT) Phosphorus 3.0 2.5 - 4.5 mg/dL [facility] Blood 02/17/2021 4:10 AM EDT 02/17/2021 4:19 AM EDT Narrative Resulting Agency Comment Spec In Lab Cami Ugarte ADVANCE SCOUT CHEMISTRY ORDERABLES [facility] [place] [address] * Magnesium (02/17/2021 4:10 AM EDT) Magnesium 0.91 0.69 - 1.07 mmol/L [facility] Blood 02/17/2021 4:10 AM EDT 02/17/2021 4:19 AM EDT Narrative Resulting Agency Comment Spec In Lab Cami M Torito ADVANCE SCOUT CHEMISTRY ORDERABLES [facility] [place] [address] * (ABNORMAL) Basic Metabolic Panel (non-fasting) (02/17/2021 4:10 AM EDT) Glucose 187 65 - 199 mg/dL [facility] Comment:Diabetes: >=200 mg/d L plus symptoms Blood Urea Nitrogen 11 8 - 18 mg/dL [facility] Creatinine 0.82 0.70 - 1.20 mg/dL [facility] Sodium 143 135 - 145 mmol/L [facility] Potassium 3.7 3.5 - 5.0 mmol/L [facility] Comment: Please note: ??Patients with WBC >100,000 may have falsely elevated Potassium levels. ??For accurate Potassium quantification in these patients send serum separator tube (gold top) for subsequent determinations. ??Contact the Clinical Chemistry Laboratory if there are any questions. Chloride 109(H) 98 - 107 mmol/L [facility] Carbon Dioxide 27 22 - 31 mmol/L [facility] Anion Gap 7 5 - 15 mmol/L [facility] Calcium 8.9 8.5 - 10.5 mg/dL [facility] Est Glomerular Filtration Rate 78 >=60 mL/min/1. 73 m?? [facility] Comment: This patient? s estimated [...] Resulting Agency Comment Spec In Lab Cami Digna Torito SHOEMAKERN CHEMISTRY ORDERABLES Performing Organization Address [facility] Co de Phone Number [facility] [place] [address] * CK (02/17/2021 4:10 AM EDT) Creatine Kinase <20 0 - 160 unit/L [facility] Blood 02/17/2021 4:10 AM EDT 02/17/2021 4:19 AM EDT Narrative Resulting Agency Comment Spec In Lab Yunior Rodriguez DO CHEMISTRY ORDERABLES Performing Organization Address [facility] Co de Phone Number [facility] [place] [address] * POCT Glucose (02/16/2021 7:33 PM EDT) Glucose, POC 172 65 - 199 mg/dL [facility] Comment: Supplemental ranges: <140 mg/dL before meals <180 mg/dL all other times of the day Blood 02/16/2021 7:33 PM EDT 02/16/2021 7:33 PM EDT Yunior Rodriguez DO POINT OF CARE TEST O RDERABLES Performing Organization Address [facility] Co de Phone Number [facility] [place] [address] * POCT Glucose (02/16/2021 4:11 PM EDT) Glucose, POC 197 65 - 199 mg/dL [facility] Comment: Supplemental ranges: <140 mg/dL before meals <180 mg/dL all other times of the day Blood 02/16/2021 4:11 PM EDT 02/16/2021 4:11 PM EDT Yunior Rodriguez DO POINT OF CARE TEST O RDERABLES [facility] [place] [address] * CT Angiogram Lower Extremity Left (Generic) [...] questions please contact the health home health aide caregiver that requested your imaging first. ? Narrative 02/16/2021 4:46 PM EDT EXAMINATION: CT [...] have questions please contactthe health home health aide caregiver that requested your imaging first. Dali Feliz ADVANCE SCOUT IMG CT ORDERABLES * (ABNORMAL) POCT Glucose (02/16/2021 1:46 PM EDT) Glucose, POC 274(H) 65 - 199 mg/dL [facility] Comment: Supplemental ranges: <140 mg/dL before meals <180 mg/dL all other times of the day Blood 02/16/2021 1:46 PM EDT 02/16/2021 1:46 PM EDT Yunior Rodriguez DO POINT OF CARE TEST O RDERABLES Performing Organization Address [facility] Co de Phone Number [facility] [place] [address] * (ABNORMAL) POCT Glucose (02/16/2021 11:35 AM EDT) Glucose, POC 215(H) 65 - 199 mg/dL [facility] Comment: Supplemental ranges: <140 mg/dL before meals <180 mg/dL all other times of the day Blood 02/16/2021 11:3 5 AM EDT 02/16/2021 11:35 AM EDT Yunior Rodriguez DO POINT OF CARE TEST O RDERABLES Performing Organization Address City/[facility]/ZIP Co de Phone Number [facility] [place] [address] * (ABNORMAL) POCT Glucose (02/16/2021 10:23 AM EDT) Glucose, POC 239(H) 65 - 199 mg/dL [facility] Comment: Supplemental ranges: <140 mg/dL before meals <180 mg/dL all other times of the day Blood 02/16/2021 10:2 3 AM EDT 02/16/2021 10:23 AM EDT Yunior Rodriguez DO POINT OF CARE TEST O RDERABLES Performing Organization Address City/[facility]/ZIP Co de Phone Number [facility] [place] [address] * (ABNORMAL) POCT Glucose (02/16/2021 7:46 AM EDT) Glucose, POC 273(H) 65 - 199 mg/dL [facility] Comment: Supplemental ranges: <140 mg/dL before meals <180 mg/dL all other times of the day Blood 02/16/2021 7:46 AM EDT 02/16/2021 7:46 AM EDT Yunior Rodriguez DO POINT OF CARE TEST O RDERABLES Performing Organization Address City/[facility]/ZIP Co de Phone Number [facility] [place] [address] * (ABNORMAL) Basic Metabolic Panel (non-fasting) (02/16/2021 3:53 AM EDT) Glucose 222(H) 65 - 199 mg/dL [facility] Comment:Diabetes: >=200 mg/d L plus symptoms Blood Urea Nitrogen 10 8 - 18 mg/dL [facility] Creatinine 0.79 0.70 - 1.20 mg/dL [facility] Sodium 143 135 - 145 mmol/L [facility] Potassium 3.6 3.5 - 5.0 mmol/L [facility] Comment: Please note: ??Patients with WBC >100,000 may have falsely elevated Potassium levels. ??For accurate Potassium quantification in these patients send serum separator tube (gold top) for subsequent determinations. ??Contact the Clinical Chemistry Laboratory if there are any questions. Chloride 109(H) 98 - 107 mmol/L [facility] Carbon Dioxide 26 22 - 31 mmol/L [facility] Anion Gap 8 5 - 15 mmol/L [facility] Calcium 8.4(L) 8.5 - 10.5 mg/dL [facility] Est Glomerular Filtration Rate 82 >=60 mL/min/1. 73 m?? [facility] Comment: This patient? s estimated [...] Rodriguez DO CHEMISTRY ORDERABLES Performing Organization Address City/State/[facility] Co de Phone Number [facility] [place] [address] * (ABNORMAL) Hemogram (02/16/2021 3:53 AM EDT) White Blood Cell 9.6(H) 4.0 - 9.5 x10(3)/mc L [facility] Red Blood Cell 3.33(L) 4.00 - 5.21 x10(6)/mc L [facility] Hemoglobin 9.8(L) 11.7 - 15.5 gm/dL [facility] Hematocrit 30.3(L) 35.7 - 45.8 % [facility] Mean Cell Volume 91.0 82.6 - 94.4 fL [facility] Mean Cell Hemoglobin 29.4 27.1 - 32.0 pg [facility] Mean Cell Hemoglobin Concentration 32.3 31.7 - 35.0 gm/dL [facility] Platelet 263 145 - 357 x10(3)/mc L [facility] RDW Standard Deviation 43.8 37.0 - 46.0 fL [facility] RDW coefficient of variation 13.4 11.5 - 14.1 % [facility] Mean Platelet Volume 10.3 7.6 - 12.9 fL [facility] NRBC% auto 0.0 % [facility] NRBC Absolute 0.000 0.000 - 0.000 x10(3)/mc L [facility] Blood 02/16/2021 3:53 AM EDT 02/16/2021 3:57 AM EDT Narrative Resulting Agency Comment Spec In Lab Yunior Rodriguez DO HEMATOLOGY ORDERABLE S [facility] [place] [address] * POCT Glucose (02/15/2021 8:03 PM EDT) Pathologist [facility] Glucose, POC 174 65 - 199 mg/dL [facility] Comment: Supplemental ranges: <140 mg/dL before meals <180 mg/dL all other times of the day Blood 02/15/2021 8:03 PM EDT 02/15/2021 8:03 PM EDT Yunior Rodriguez DO POINT OF CARE TEST O RDERABLES [facility] [place] [address] * POCT Glucose (02/15/2021 5:24 PM EDT) Glucose, POC 127 65 - 199 mg/dL [facility] Comment: Supplemental ranges: <140 mg/dL before meals <180 mg/dL all other times of the day Blood 02/15/2021 5:24 PM EDT 02/15/2021 5:24 PM EDT Yunior Rodriguez DO POINT OF CARE TEST O RDERAMISBAH [facility] [place] [address] * (ABNORMAL) POCT Glucose (02/15/2021 3:38 PM EDT) Glucose, POC 243(H) 65 - 199 mg/dL [facility] Comment: Supplemental ranges: <140 mg/dL before meals <180 mg/dL all other times of the day Blood 02/15/2021 3:38 PM EDT 02/15/2021 3:38 PM EDT Yunior Rodriguez DO POINT OF CARE TEST O RDERABLES Performing Organization Address [facility] Co de Phone Number [facility] [place] [address] * POCT Glucose (02/15/2021 11:39 AM EDT) Glucose, POC 178 65 - 199 mg/dL [facility] Comment: Supplemental ranges: <140 mg/dL before meals <180 mg/dL all other times of the day Blood 02/15/2021 11:3 9 AM EDT 02/15/2021 11:39 AM EDT Yunior Rodriguez DO POINT OF CARE TEST O RDERABLES Performing Organization Address City/[facility] Co de Phone Number [facility] [place] [address] * (ABNORMAL) POCT Glucose (02/15/2021 7:40 AM EDT) Glucose, POC 238(H) 65 - 199 mg/dL [facility] Comment: Supplemental ranges: <140 mg/dL before meals <180 mg/dL all other times of the day Blood 02/15/2021 7:40 AM EDT 02/15/2021 7:40 AM EDT Yunior Rodriguez DO POINT OF CARE TEST O RDERABLES [facility] [place] [address] * (ABNORMAL) Basic Metabolic Panel (non-fasting) (02/15/2021 12:35 AM EDT) Glucose 186 65 - 199 mg/dL [facility] Comment:Diabetes: >=200 mg/d L plus symptoms Blood Urea Nitrogen 9 8 - 18 mg/dL [facility] Creatinine 0.84 0.70 - 1.20 mg/dL [facility] Sodium 141 135 - 145 mmol/L [facility] Potassium 3.5 3.5 - 5.0 mmol/L [facility] Comment: Please note: ??Patients with WBC >100,000 may have falsely elevated Potassium levels. ??For accurate Potassium quantification in these patients send serum separator tube (gold top) for subsequent determinations. ??Contact the Clinical Chemistry Laboratory if there are any questions. Chloride 108(H) 98 - 107 mmol/L [facility] Carbon Dioxide 23 22 - 31 mmol/L [facility] Anion Gap 10 5 - 15 mmol/L [facility] Calcium 8.6 8.5 - 10.5 mg/dL [facility] Est Glomerular Filtration Rate 76 >=60 mL/min/1. 73 m?? [facility] Comment: This patient? s estimated [...] In Lab Edilma Mary MD CHEMISTRY ORDERABLES [facility] [place] [address] * (ABNORMAL) Hemogram (02/15/2021 12:35 AM EDT) White Blood Cell 9.6(H) 4.0 - 9.5 x10(3)/mc L [facility] Red Blood Cell 3.39(L) 4.00 - 5.21 x10(6)/mc L [facility] Hemoglobin 9.7(L) 11.7 - 15.5 gm/dL [facility] Hematocrit 30.7(L) 35.7 - 45.8 % [facility] Mean Cell Volume 90.6 82.6 - 94.4 [facility] Mean Cell Hemoglobin 28.6 27.1 - 32.0 pg [facility] Mean Cell Hemoglobin Concentration 31.6(L) 31.7 - 35.0 gm/dL [facility] Platelet 291 145 - 357 x10(3)/mc L [facility] RDW Standard Deviation 43.9 37.0 - 46.0 [facility] RDW coefficient of variation 13.3 11.5 - 14.1 % [facility] Mean Platelet Volume 10.9 7.6 - 12.9 [facility] NRBC% auto 0.0 % [facility] NRBC Absolute 0.000 0.000 - 0.000 x10(3)/mc L [facility] Blood 02/15/2021 12:3 5 AM EDT 02/15/2021 12:44 AM EDT Narrative Resulting Agency Comment Spec In Lab Edilma Mary MD HEMATOLOGY ORDERABLE S Performing Organization Address [facility]/ZIP Co de Phone Number [facility] [place] [address] * POCT Glucose (02/14/2021 11:51 PM EDT) Glucose, POC 188 65 - 199 mg/dL [facility] Comment: Supplemental ranges: <140 mg/dL before meals <180 mg/dL all other times of the day Blood 02/14/2021 11:5 1 PM EDT 02/14/2021 11:51 PM EDT Yunior Rodriguez DO POINT OF CARE TEST O RDERABLES Performing Organization Address [facility]/ZIP Co de Phone Number [facility] [place] [address] * CK (02/14/2021 8:13 PM EDT) Creatine Kinase <20 0 - 160 unit/L [facility] Blood 02/14/2021 8:13 PM EDT 02/14/2021 8:19 PM EDT Narrative Resulting Agency Comment Spec In Lab Yunior Rodriguez DO CHEMISTRY ORDERABLES Performing Organization Address [facility] Co de Phone Number [facility] [place] [address] * POCT Glucose (02/14/2021 7:53 PM EDT) Glucose, POC 186 65 - 199 mg/dL [facility] Comment: Supplemental ranges: <140 mg/dL before meals <180 mg/dL all other times of the day Blood 02/14/2021 7:53 PM EDT 02/14/2021 7:53 PM EDT Yunior Rodriguez DO POINT OF CARE TEST O RDERABLES Performing Organization Address [facility] Co de Phone Number [facility] [place] [address] * POCT Glucose (02/14/2021 4:57 PM EDT) Glucose, POC 110 65 - 199 mg/dL [facility] Comment: Supplemental ranges: <140 mg/dL before meals <180 mg/dL all other times of the day Blood 02/14/2021 4:57 PM EDT 02/14/2021 4:57 PM EDT Yunior Rodriguez DO POINT OF CARE TEST O RDERABLES Performing Organization Address [facility] Phone Number [facility] [place] [address] * Vancomycin, trough (02/14/2021 2:50 PM EDT) Vancomycin, Trough 18.9 mg/L [facility] Comment: Therapeutic range for complicated infections [...] Rodriguez DO CHEMISTRY ORDERABLES Performing Organization Address [facility] Co de Phone Number [facility] [place] [address] * POCT Glucose (02/14/2021 11:51 AM EDT) Glucose, POC 149 65 - 199 mg/dL [facility] Comment: Supplemental ranges: <140 mg/dL before meals <180 mg/dL all other times of the day Blood 02/14/2021 11:5 1 AM EDT 02/14/2021 11:51 AM EDT Yunior Rodriguez DO POINT OF CARE TEST O RDERABLES [facility] [place] [address] * XR PICC Placement Over 5 Years [...] questions please contact the health home health aide caregiver that requested your imaging first. ? Narrative 02/14/2021 9:22 AM EDT EXAMINATION: XR [...] have questions please contactthe health home health aide caregiver that requested your imaging first. Edilma Mary MD IMG FLUORO ORDERABLE S * Place PICC Line: Contact Vascular Access Page [phone] Extremity to exclude: No restrictions; Is PICC [...] to the planned procedure. Hand Hygiene: The insole taper did perform hand hygiene prior to line insertion. Catheter type: PICC Lot number: [id number] Procedure Technique: Skin was prepped with chlorhexidine. [...] Glucose, POC 156 65 - 199 mg/dL [facility] Comment: Supplemental ranges: <140 mg/dL before meals <180 mg/dL all other times of the day Blood 02/14/2021 8:01 AM EDT 02/14/2021 8:01 AM EDT Edilma Mary MD POINT OF CARE TEST O RDERABLES [facility] [place] [address] * (ABNORMAL) POCT Glucose (02/13/2021 11:45 PM EDT) Glucose, POC 228(H) 65 - 199 mg/dL [facility] Comment: Supplemental ranges: <140 mg/dL before meals <180 mg/dL all other times of the day Blood 02/13/2021 11:4 5 PM EDT 02/13/2021 11:45 PM EDT Edilma Mary MD POINT OF CARE TEST O RDERABLES Performing Organization Address [facility]/ZIP Co de Phone Number [facility] [place] [address] * POCT Glucose (02/13/2021 7:39 PM EDT) Glucose, POC 186 65 - 199 mg/dL [facility] Comment: Supplemental ranges: <140 mg/dL before meals <180 mg/dL all other times of the day Blood 02/13/2021 7:39 PM EDT 02/13/2021 7:39 PM EDT Edilma Mary MD POINT OF CARE TEST O RDERAMISBAH Performing Organization Address [facility] Co de Phone Number [facility] [place] [address] * (ABNORMAL) POCT Glucose (02/13/2021 3:51 PM EDT) Glucose, POC 201(H) 65 - 199 mg/dL [facility] Comment: Supplemental ranges: <140 mg/dL before meals <180 mg/dL all other times of the day Blood 02/13/2021 3:51 PM EDT 02/13/2021 3:51 PM EDT Edilma Mary MD POINT OF CARE TEST O RDERABLES Performing Organization Address City/[facility] Co de Phone Number [facility] [place] [address] * XR Ankle Min 3 views Left [...] questions please contact the health home health aide caregiver that requested your imaging first. ? Narrative 02/14/2021 2:58 AM EDT EXAMINATION: XR [...] have questions please contactthe health home health aide caregiver that requested your imaging first. Edilma Mary MD IMG DX ORDERABLES * POCT Glucose (02/13/2021 11:54 AM EDT) Glucose, POC 188 65 - 199 mg/dL [facility] Comment: Supplemental ranges: <140 mg/dL before meals <180 mg/dL all other times of the day Blood 02/13/2021 11:5 4 AM EDT 02/13/2021 11:54 AM EDT Edilma Mary MD POINT OF CARE TEST O RDFLAKITA Performing Organization Address [facility]/ZIP Co de Phone Number [facility] [place] [address] * POCT Glucose (02/13/2021 8:18 AM EDT) Glucose, POC 185 65 - 199 mg/dL [facility] Comment: Supplemental ranges: <140 mg/dL before meals <180 mg/dL all other times of the day Blood 02/13/2021 8:18 AM EDT 02/13/2021 8:18 AM EDT Edilma Mary MD POINT OF CARE TEST O RDERABLES [facility] [place] [address] * POCT Glucose (02/12/2021 8:16 PM EDT) Glucose, POC 120 65 - 199 mg/dL [facility] Comment: Supplemental ranges: <140 mg/dL before meals <180 mg/dL all other times of the day Blood 02/12/2021 8:16 PM EDT 02/12/2021 8:16 PM EDT Edilma Mary MD POINT OF CARE TEST O RDERAMISBAH [facility] [place] [address] * POCT Glucose (02/12/2021 7:25 PM EDT) Glucose, POC 99 65 - 199 mg/dL [facility] Comment: Supplemental ranges: <140 mg/dL before meals <180 mg/dL all other times of the day Blood 02/12/2021 7:25 PM EDT 02/12/2021 7:25 PM EDT Edilma Mary MD POINT OF CARE TEST O VIKKI Performing Organization Address [facility]/ZIP Co de Phone Number [facility] [place] [address] * POCT Glucose (02/12/2021 5:48 PM EDT) Glucose, POC 102 65 - 199 mg/dL [facility] Comment: Supplemental ranges: <140 mg/dL before meals <180 mg/dL all other times of the day Blood 02/12/2021 5:48 PM EDT 02/12/2021 5:48 PM EDT Edilma Mary MD POINT OF CARE TEST O VIKKI [facility] [place] [address] * Anaerobic Culture (02/12/2021 5:45 PM EDT) Anaerobic Culture No anaerobic organisms isolated [facility] Deep Wound ANKLE REGION STRUCTURE / Unknown 02/12/2021 5:45 PM EDT 02/12/2021 6:31 PM EDT Comment:OR#[id number] Narrative Resulting Agency Comment Spec In Lab Sabrina Capellan MD MICROBIOLOGY - GENER AL ORDERABLES Performing Organization Address [facility] Co de Phone Number [facility] [place] [address] * (ABNORMAL) Abscess/Wound Aspirate Culture (02/12/2021 5:45 PM EDT) Abscess/Wound Aspirate Culture Rare Staphylococcus aureus Susceptibilities previously reported (A) [facility] Gram Stain No Neutrophils seen. No microorganisms seen. (A) [facility] Organism Staphylococcus aureus(A) [facility] Deep Wound ANKLE REGION STRUCTURE / Unknown 02/12/2021 5:45 PM EDT 02/12/2021 6:31 PM EDT Comment:OR#[id number] Narrative Resulting Agency Comment Spec In Lab Sabrina Capellan MD MICROBIOLOGY - GENER AL ORDERABLES Performing Organization Address [facility] Co de Phone Number [facility] [place] [address] * Anaerobic Culture (02/12/2021 5:43 PM EDT) Anaerobic Culture No anaerobic organisms isolated [facility] Deep Wound ANKLE REGION STRUCTURE / Unknown 02/12/2021 5:43 PM EDT 02/12/2021 6:32 PM EDT Comment:LEFT DEEP ANKLE BONE Narrative Resulting Agency Comment Spec In Lab Sabrina Capellan MD MICROBIOLOGY - GENER AL ORDERABLES Performing Organization Address City/[facility] Co de Phone Number [facility] [place] [address] * (ABNORMAL) Abscess/Wound Aspirate Culture (02/12/2021 5:43 PM EDT) Abscess/Wound Aspirate Culture Few Staphylococcus aureus(A) [facility] Gram Stain No Neutrophils seen. No microorganisms seen. (A) [facility] Organism Staphylococcus aureus(A) [facility] Deep Wound ANKLE REGION STRUCTURE [...] Sensitive Comment:Gentamicin i s not appropriate for [place]-therapy. Staphylococcus aureus Oxacillin VITEK 2 METHOD Sensitive [...] Capellan MD MICROBIOLOGY - GENER AL ORDERABLES [facility] [place] [address] * POCT Glucose (02/12/2021 3:39 PM EDT) Glucose, POC 109 65 - 199 mg/dL [facility] Comment: Supplemental ranges: <140 mg/dL before meals <180 mg/dL all other times of the day Blood 02/12/2021 3:39 PM EDT 02/12/2021 3:39 PM EDT Edilma Mary MD POINT OF CARE TEST O RDERABLES [facility] [place] [address] * Vancomycin, trough (02/12/2021 2:30 PM EDT) Vancomycin, Trough 18.3 mg/L [facility] Comment: Therapeutic range for complicated infections [...] Rodriguez DO CHEMISTRY ORDERABLES Performing Organization Address [facility] Co de Phone Number [facility] [place] [address] * POCT Glucose (02/12/2021 11:56 AM EDT) Glucose, POC 123 65 - 199 mg/dL [facility] Comment: Supplemental ranges: <140 mg/dL before meals <180 mg/dL all other times of the day Blood 02/12/2021 11:5 6 AM EDT 02/12/2021 11:56 AM EDT Edilma Mary MD POINT OF CARE TEST O RDFLAKITA Performing Organization Address [facility] Co de Phone Number [facility] [place] [address] * POCT Glucose (02/12/2021 7:37 AM EDT) Glucose, POC 138 65 - 199 mg/dL [facility] Comment: Supplemental ranges: <140 mg/dL before meals <180 mg/dL all other times of the day Blood 02/12/2021 7:37 AM EDT 02/12/2021 7:37 AM EDT Edilma Mary MD POINT OF CARE TEST O RDERAMISBAH Performing Organization Address City/[facility] Co de Phone Number [facility] [place] [address] * POCT Glucose (02/12/2021 4:22 AM EDT) Glucose, POC 170 65 - 199 mg/dL [facility] Comment: Supplemental ranges: <140 mg/dL before meals <180 mg/dL all other times of the day Blood 02/12/2021 4:22 AM EDT 02/12/2021 4:22 AM EDT Edilma Mary MD POINT OF CARE TEST O RDERABLES Performing Organization Address [facility] de Phone Number [facility] [place] [address] * POCT Glucose (02/11/2021 11:20 PM EDT) Glucose, POC 147 65 - 199 mg/dL [facility] Comment: Supplemental ranges: <140 mg/dL before meals <180 mg/dL all other times of the day Blood 02/11/2021 11:2 0 PM EDT 02/11/2021 11:20 PM EDT Edilma Mary MD POINT OF CARE TEST O RDERABLES Performing Organization Address [facility] de Phone Number [facility] [place] [address] * (ABNORMAL) POCT Glucose (02/11/2021 7:59 PM EDT) Glucose, POC 213(H) 65 - 199 mg/dL [facility] Comment: Supplemental ranges: <140 mg/dL before meals <180 mg/dL all other times of the day Blood 02/11/2021 7:59 PM EDT 02/11/2021 7:59 PM EDT Edilma Mary MD POINT OF CARE TEST O RDERABLES Performing Organization Address [facility]/ZIP Co de Phone Number [facility] [place] [address] * POCT Glucose (02/11/2021 4:02 PM EDT) Glucose, POC 129 65 - 199 mg/dL [facility] Comment: Supplemental ranges: <140 mg/dL before meals <180 mg/dL all other times of the day Blood 02/11/2021 4:02 PM EDT 02/11/2021 4:02 PM EDT Edilma Mary MD POINT OF CARE TEST O RDERABLES Performing Organization Address [facility]/ZIP Co de Phone Number [facility] [place] [address] * POCT Glucose (02/11/2021 1:35 PM EDT) Glucose, POC 152 65 - 199 mg/dL [facility] Comment: Supplemental ranges: <140 mg/dL before meals <180 mg/dL all other times of the day Blood 02/11/2021 1:35 PM EDT 02/11/2021 1:35 PM EDT Edilma Mary MD POINT OF CARE TEST O RDERABLES Performing Organization Address [facility]/ZIP Co de Phone Number [facility] [place] [address] * (ABNORMAL) POCT Glucose (02/11/2021 11:28 AM EDT) Glucose, POC 284(H) 65 - 199 mg/dL [facility] Comment: Supplemental ranges: <140 mg/dL before meals <180 mg/dL all other times of the day Blood 02/11/2021 11:2 8 AM EDT 02/11/2021 11:28 AM EDT Edilma Mary MD POINT OF CARE TEST O RDERABLES [facility] [place] [address] * POCT Glucose (02/11/2021 7:42 AM EDT) Glucose, POC 133 65 - 199 mg/dL [facility] Comment: Supplemental ranges: <140 mg/dL before meals <180 mg/dL all other times of the day Blood 02/11/2021 7:42 AM EDT 02/11/2021 7:42 AM EDT Edilma Mary MD POINT OF CARE TEST O RDERABLES [facility] [place] [address] * (ABNORMAL) POCT Glucose (02/11/2021 3:57 AM EDT) Glucose, POC 267(H) 65 - 199 mg/dL [facility] Comment: Supplemental ranges: <140 mg/dL before meals <180 mg/dL all other times of the day Blood 02/11/2021 3:57 AM EDT 02/11/2021 3:57 AM EDT Edilma Mary MD POINT OF CARE TEST O RDERABLES Performing Organization Address City/[facility]/ZIP Co de Phone Number [facility] [place] [address] * POCT Glucose (02/10/2021 11:55 PM EDT) Glucose, POC 190 65 - 199 mg/dL [facility] Comment: Supplemental ranges: <140 mg/dL before meals <180 mg/dL all other times of the day Blood 02/10/2021 11:5 5 PM EDT 02/10/2021 11:55 PM EDT Edilma Mary MD POINT OF CARE TEST O RDERABLES [facility] [place] [address] * (ABNORMAL) POCT Glucose (02/10/2021 9:10 PM EDT) Glucose, POC 225(H) 65 - 199 mg/dL [facility] Comment: Supplemental ranges: <140 mg/dL before meals <180 mg/dL all other times of the day Blood 02/10/2021 9:10 PM EDT 02/10/2021 9:10 PM EDT Edilma Mary MD POINT OF CARE TEST O RDERABLES Performing Organization Address City/[facility]/ZIP Co de Phone Number [facility] [place] [address] * (ABNORMAL) POCT Glucose (02/10/2021 6:55 PM EDT) Glucose, POC 346(H) 65 - 199 mg/dL [facility] Comment: Supplemental ranges: <140 mg/dL before meals <180 mg/dL all other times of the day Blood 02/10/2021 6:55 PM EDT 02/10/2021 6:55 PM EDT Edilma Mary MD POINT OF CARE TEST O RDERABLES Performing Organization Address [facility]/ZIP Co de Phone Number [facility] [place] [address] * (ABNORMAL) POCT Glucose (02/10/2021 3:44 PM EDT) Glucose, POC 284(H) 65 - 199 mg/dL [facility] Comment: Supplemental ranges: <140 mg/dL before meals <180 mg/dL all other times of the day Blood 02/10/2021 3:44 PM EDT 02/10/2021 3:44 PM EDT Edilma Mary MD POINT OF CARE TEST O RDERABLES [facility] [place] [address] * Vancomycin, trough (02/10/2021 2:15 PM EDT) Vancomycin, Trough 12.9 mg/L [facility] Comment: Therapeutic range for complicated infections [...] Rodriguez DO CHEMISTRY ORDERABLES Performing Organization Address [facility]/ZIP Co de Phone Number [facility] [place] [address] * POCT Glucose (02/10/2021 11:46 AM EDT) Glucose, POC 154 65 - 199 mg/dL [facility] Comment: Supplemental ranges: <140 mg/dL before meals <180 mg/dL all other times of the day Blood 02/10/2021 11:4 6 AM EDT 02/10/2021 11:46 AM EDT Edilma Mary MD POINT OF CARE TEST O RDERABLES [facility] [place] [address] * POCT Glucose (02/10/2021 10:40 AM EDT) Glucose, POC 132 65 - 199 mg/dL [facility] Comment: Supplemental ranges: <140 mg/dL before meals <180 mg/dL all other times of the day Blood 02/10/2021 10:4 0 AM EDT 02/10/2021 10:40 AM EDT Edilma Mary MD POINT OF CARE TEST O RDERABLES Performing Organization Address City/[facility] [place] [address] * Anaerobic Culture (02/10/2021 10:02 AM EDT) Anaerobic Culture No anaerobic organisms isolated [facility] Deep Wound STRUCTURE OF LEFT FOOT / Unknown 02/10/2021 10:02 AM EDT 02/10/2021 10:31 AM EDT Comment:LEFT LATERAL PROXIMA L ANKLE Narrative Resulting Agency Comment Spec In Lab Jacobo De La Cruz MD MICROBIOLOGY - GENER AL ORDERABLES Performing Organization Address [facility] de Phone Number [facility] [place] [address] * (ABNORMAL) Abscess/Wound Aspirate Culture (02/10/2021 10:02 AM EDT) Abscess/Wound Aspirate Culture Many Staphylococcus aureus Few Enterococcus faecalis Susceptibilities previously reported Few normal cutaneous karime (A) [facility] Gram Stain Many Neutrophils seen Rare Gram Positive Cocci seen (A) [facility] Organism Staphylococcus aureus(A) [facility] Organism Enterococcus faecalis(A) [facility] Organism Gram Positive Cocci(A) [facility] Deep Wound STRUCTURE OF LEFT FOOT / Unknown 02/10/2021 10:02 AM EDT 02/10/2021 10:31 AM EDT Comment:LEFT LATERAL PROXIMA L ANKLE Narrative Resulting Agency Comment Spec In Lab Jacobo De La Cruz MD MICROBIOLOGY - GENER AL ORDERABLES Performing Organization Address [facility] Co de Phone Number [facility] [place] [address] * Anaerobic Culture (02/10/2021 10:02 AM EDT) Anaerobic Culture No anaerobic organisms isolated [facility] Deep Wound STRUCTURE OF LEFT FOOT / Unknown 02/10/2021 10:02 AM EDT 02/10/2021 10:31 AM EDT Comment:LEFT LATERAL DISTAL ANKLE Narrative Resulting Agency Comment Spec In Lab Jacobo De La Cruz MD MICROBIOLOGY - GENER AL ORDERABLES Performing Organization Address [facility] Phone Number [facility] [place] [address] * (ABNORMAL) Abscess/Wound Aspirate Culture (02/10/2021 10:02 AM EDT) Abscess/Woun d Aspirate Culture Many Staphylococcus aureus : Susceptibilities previously reported Moderate normal cutaneous karime (A) [facility] Gram Stain Many Neutrophils seen Few Gram Positive Cocci seen (A) [facility] Organism Staphylococcus aureus(A) [facility] Organism Gram Positive Cocci(A) [facility] Deep Wound STRUCTURE OF LEFT FOOT / Unknown 02/10/2021 10:02 AM EDT 02/10/2021 10:31 AM EDT Comment:LEFT LATERAL DISTAL ANKLE Narrative Resulting Agency Comment Spec In Lab Jacobo De La Cruz MD MICROBIOLOGY - GENER AL ORDERABLES Performing Organization Address [facility] Phone Number [facility] [place] [address] * POCT Glucose (02/10/2021 7:42 AM EDT) Glucose, POC 130 65 - 199 mg/dL [facility] Comment: Supplemental ranges: <140 mg/dL before meals <180 mg/dL all other times of the day Blood 02/10/2021 7:42 AM EDT 02/10/2021 7:42 AM EDT Edilma Mary MD POINT OF CARE TEST O RDERABLES Performing Organization Address [facility]/ZIP Co de Phone Number [facility] [place] [address] * POCT Glucose (02/10/2021 5:02 AM EDT) Glucose, POC 102 65 - 199 mg/dL [facility] Comment: Supplemental ranges: <140 mg/dL before meals <180 mg/dL all other times of the day Blood 02/10/2021 5:02 AM EDT 02/10/2021 5:02 AM EDT Edilma Mary MD POINT OF CARE TEST O RDERABLES [facility] [place] [address] * Differential, Automated (02/10/2021 4:01 AM EDT) [facility] Neutrophil % 73.3 % [facility] Neutrophil Absolute 4.98 1.70 - 6.10 x10(3)/[facility] LAB[facility] Lymph % 14.3 % [facility] Lymphocytes Abs 1.0 0.9 - 3.2 x10(3)/[facility] Monocyte % 10.2 % [facility] Monocyte Abs 0.7 0.3 - 0.9 x10(3)/[facility] Eos % 1.6 % [facility] Eosinophils Abs 0.1 0.0 - 0.4 x10(3)/[facility] Basophil % 0.3 % [facility] Baso Absolute 0.0 0.0 - 0.1 x10(3)/[facility] Immature Gran % 0.30 % [facility] Comment: Immature granulocytes(IG's)percentage and absolute count will include metamyelocytes, myelocytes, and promyelocytes. Blood smears from CBCs yielding IG's will be scanned manually for concordance. If this scan disagrees with the automated IG or if promyelocytes are noted, a manual differential will be performed. Immature Gran Absolute 0.02 0.00 - 0.04 x10(3)/mcL [facility] Blood 02/10/2021 4:01 AM EDT 02/10/2021 4:21 AM EDT Narrative Resulting Agency Comment Spec In Lab Yani Dumas MD HEMATOLOGY ORDERABL ES [facility] [place] [address] * (ABNORMAL) Hemogram (02/10/2021 4:01 AM EDT) White Blood Cell 6.8 4.0 - 9.5 x10(3)/[facility] Red Blood Cell 3.60(L) 4.00 - 5.21 x10(6)/[facility] Hemoglobin 10.5(L) 11.7 - 15.5 gm/dL [facility] Hematocrit 32.6(L) 35.7 - 45.8 % [facility] Mean Cell Volume 90.6 82.6 - 94.4 [facility] LAB[facility]ORY Mean Cell Hemoglobin 29.2 27.1 - 32.0 pg [facility] Mean Cell Hemoglobin Concentration 32.2 31.7 - 35.0 gm/dL [facility] Platelet 160 145 - 357 x10(3)/[facility] RDW Standard Deviation 45.1 37.0 - 46.0 [facility] RDW coefficient of variation 13.5 11.5 - 14.1 % [facility] Mean Platelet Volume 11.6 7.6 - 12.9 [facility] LAB[facility]ORY NRBC% auto 0.0 % [facility] NRBC Absolute 0.000 0.000 - 0.000 x10(3)/ L [facility] Blood 02/10/2021 4:01 AM EDT 02/10/2021 4:21 AM EDT Narrative Resulting Agency Comment Spec In Lab Yani Dumas MD HEMATOLOGY ORDERABL ES [facility] [place] [address] * (ABNORMAL) Basic Metabolic Panel (non-fasting) (02/10/2021 4:01 AM EDT) Glucose 107 65 - 199 mg/dL [facility] Comment:Diabetes: >=200 mg/d L plus symptoms Blood Urea Nitrogen 11 8 - 18 mg/dL [facility] Creatinine 0.82 0.70 - 1.20 mg/dL [facility] Sodium 142 135 - 145 mmol/L [facility] Potassium 3.6 3.5 - 5.0 mmol/L [facility] Comment: Please note: ??Patients with WBC >100,000 may have falsely elevated Potassium levels. ??For accurate Potassium quantification in these patients send serum separator tube (gold top) for subsequent determinations. ??Contact the Clinical Chemistry Laboratory if there are any questions. Chloride 111(H) 98 - 107 mmol/L [facility] Carbon Dioxide 22 22 - 31 mmol/L [facility] Anion Gap 9 5 - 15 mmol/L [facility] Calcium 8.5 8.5 - 10.5 mg/dL [facility] Est Glomerular Filtration Rate 78 >=60 mL/min/1. 73 m?? [facility] Comment: This patient? s estimated [...] Mary MD CHEMISTRY ORDERABLES Performing Organization Address [facility] Co de Phone Number [facility] [place] [address] * POCT Glucose (02/10/2021 12:14 AM EDT) Glucose, POC 180 65 - 199 mg/dL [facility] Comment: Supplemental ranges: <140 mg/dL before meals <180 mg/dL all other times of the day Blood 02/10/2021 12:1 4 AM EDT 02/10/2021 12:14 AM EDT Edilma Mary MD POINT OF CARE TEST O RDERABLES Performing Organization Address [facility] Co de Phone Number [facility] [place] [address] * POCT Glucose (02/09/2021 8:52 PM EDT) Glucose, POC 178 65 - 199 mg/dL [facility] Comment: Supplemental ranges: <140 mg/dL before meals <180 mg/dL all other times of the day Blood 02/09/2021 8:52 PM EDT 02/09/2021 8:52 PM EDT Edilma Mary MD POINT OF CARE TEST O RDERABLES Performing Organization Address [facility] Co de Phone Number [facility] [place] [address] * (ABNORMAL) POCT Glucose (02/09/2021 4:15 PM EDT) Glucose, POC 260(H) 65 - 199 mg/dL [facility] Comment: Supplemental ranges: <140 mg/dL before meals <180 mg/dL all other times of the day Blood 02/09/2021 4:15 PM EDT 02/09/2021 4:15 PM EDT Edilma Mary MD POINT OF CARE TEST O RDERABLES Performing Organization Address [facility]/ZIP Co de Phone Number [facility] [place] [address] * (ABNORMAL) POCT Glucose (02/09/2021 2:09 PM EDT) Glucose, POC 346(H) 65 - 199 mg/dL [facility] Comment: Supplemental ranges: <140 mg/dL before meals <180 mg/dL all other times of the day Blood 02/09/2021 2:09 PM EDT 02/09/2021 2:09 PM EDT Edilma Mary MD POINT OF CARE TEST O RDERAMISBAH Performing Organization Address [facility] Co de Phone Number [facility] [place] [address] * (ABNORMAL) POCT Glucose (02/09/2021 11:58 AM EDT) Glucose, POC 339(H) 65 - 199 mg/dL [facility] Comment: Supplemental ranges: <140 mg/dL before meals <180 mg/dL all other times of the day Blood 02/09/2021 11:5 8 AM EDT 02/09/2021 11:58 AM EDT Edilma Mary MD POINT OF CARE TEST O RDERABLES Performing Organization Address City/[facility]/ZIP Co de Phone Number [facility] [place] [address] * POCT Glucose (02/09/2021 7:49 AM EDT) Glucose, POC 168 65 - 199 mg/dL [facility] Comment: Supplemental ranges: <140 mg/dL before meals <180 mg/dL all other times of the day Blood 02/09/2021 7:49 AM EDT 02/09/2021 7:49 AM EDT Edilma Mary MD POINT OF CARE TEST O RDERABLES [facility] [place] [address] * (ABNORMAL) Differential, Automated (02/09/2021 5:13 AM EDT) Neutrophil % 73.2 % [facility] Neutrophil Absolute 6.14(H) 1.70 - 6.10 x10(3)/mc L [facility] Lymph % 11.5 % [facility] Lymphocytes Abs 1.0 0.9 - 3.2 x10(3)/mc L [facility] Monocyte % 14.1 % [facility] Monocyte Abs 1.2(H) 0.3 - 0.9 x10(3)/mc L [facility] Eos % 0.6 % [facility] Eosinophils Abs 0.0 0.0 - 0.4 x10(3)/ L [facility] Basophil % 0.4 % [facility] Baso Absolute 0.0 0.0 - 0.1 x10(3)/mc L [facility] Immature Gran % 0.20 % [facility] Comment: Immature granulocytes(IG's)percentage and absolute count will include metamyelocytes, myelocytes, and promyelocytes. Blood smears from CBCs yielding IG's will be scanned manually for concordance. If this scan disagrees with the automated IG or if promyelocytes are noted, a manual differential will be performed. Immature Gran Absolute 0.02 0.00 - 0.04 x10(3)/mc L [facility] Blood 02/09/2021 5:13 AM EDT 02/09/2021 5:18 AM EDT Narrative Resulting Agency Comment Spec In Lab Yani Dumas MD HEMATOLOGY ORDERABL ES [facility] [place] [address] * Hemogram (02/09/2021 5:13 AM EDT) [facility] White Blood Cell 8.4 4.0 - 9.5 x10(3)/[facility] LAB[facility] Red Blood Cell 4.25 4.00 - 5.21 x10(6)/[facility] LAB[facility] Hemoglobin 12.5 11.7 - 15.5 gm/dL [facility] Hematocrit 38.3 35.7 - 45.8 % [facility] Mean Cell Volume 90.1 82.6 - 94.4 fL [facility] Mean Cell Hemoglobin 29.4 27.1 - 32.0 pg [facility] Mean Cell Hemoglobin Concentration 32.6 31.7 - 35.0 gm/dL [facility] Platelet 147 145 - 357 x10(3)/[facility] LABOR[facility]ORY RDW Standard Deviation 44.1 37.0 - 46.0 [facility] LABORATORY RDW coefficient of variation 13.4 11.5 - 14.1 % [facility] Mean Platelet Volume 11.2 7.6 - 12.9 [facility] LABORATORY NRBC% auto 0.0 % [facility] NRBC Absolute 0.000 0.000 - 0.000 x10(3)/[facility] Blood 02/09/2021 5:13 AM EDT 02/09/2021 5:18 AM EDT Narrative Resulting Agency Comment Spec In Lab Yani Dumas MD HEMATOLOGY ORDERABL ES [facility] [place] [address] * Vitamin D, 25-Hydroxy (02/09/2021 5:13 AM EDT) [facility] Vitamin D Total 25 OH 43 21 - 100 ng/mL [facility] Vit D Interp Sufficient [facility] Blood 02/09/2021 5:13 AM EDT 02/09/2021 5:18 AM EDT Narrative Resulting Agency Comment Spec In Lab Cami Sawyer Torito [employer] CHEMISTRY ORDERABLES [facility] [place] [address] * (ABNORMAL) Basic Metabolic Panel (non-fasting) (02/09/2021 5:13 AM EDT) Glucose 140 65 - 199 mg/dL [facility] Comment:Diabetes: >=200 mg/d L plus symptoms Blood Urea Nitrogen 12 8 - 18 mg/dL [facility] Creatinine 0.92 0.70 - 1.20 mg/dL [facility] Sodium 141 135 - 145 mmol/L [facility] Potassium 3.8 3.5 - 5.0 mmol/L [facility] Comment: Please note: ??Patients with WBC >100,000 may have falsely elevated Potassium levels. ??For accurate Potassium quantification in these patients send serum separator tube (gold top) for subsequent determinations. ??Contact the Clinical Chemistry Laboratory if there are any questions. Chloride 110(H) 98 - 107 mmol/L [facility] Carbon Dioxide 21(L) 22 - 31 mmol/L [facility] Anion Gap 10 5 - 15 mmol/L [facility] Calcium 8.9 8.5 - 10.5 mg/dL [facility] Est Glomerular Filtration Rate 68 >=60 mL/min/1. 73 m?? [facility] Comment: This patient? s estimated [...] Mary MD CHEMISTRY ORDERABLES Performing Organization Address City/[facility]/ZIP Co de Phone Number [facility] [place] [address] * POCT Glucose (02/09/2021 4:44 AM EDT) Glucose, POC 131 65 - 199 mg/dL [facility] Comment: Supplemental ranges: <140 mg/dL before meals <180 mg/dL all other times of the day Blood 02/09/2021 4:44 AM EDT 02/09/2021 4:44 AM EDT Edilma Mary MD POINT OF CARE TEST O RDERABLES Performing Organization Address [facility] Co de Phone Number [facility] [place] [address] * (ABNORMAL) POCT Glucose (02/08/2021 11:24 PM EDT) Glucose, POC 204(H) 65 - 199 mg/dL [facility] Comment: Supplemental ranges: <140 mg/dL before meals <180 mg/dL all other times of the day Blood 02/08/2021 11:2 4 PM EDT 02/08/2021 11:24 PM EDT Edilma Mary MD POINT OF CARE TEST O RDERABLES Performing Organization Address City/[facility]/ZIP Co de Phone Number [facility] [place] [address] * (ABNORMAL) POCT Glucose (02/08/2021 8:27 PM EDT) Glucose, POC 201(H) 65 - 199 mg/dL [facility] Comment: Supplemental ranges: <140 mg/dL before meals <180 mg/dL all other times of the day Blood 02/08/2021 8:27 PM EDT 02/08/2021 8:27 PM EDT Edilma Mary MD POINT OF CARE TEST O VIKKI Performing Organization Address City/[facility]/ZIP Co de Phone Number [facility] [place] [address] * (ABNORMAL) POCT Glucose (02/08/2021 4:20 PM EDT) Glucose, POC 225(H) 65 - 199 mg/dL [facility] Comment: Supplemental ranges: <140 mg/dL before meals <180 mg/dL all other times of the day Blood 02/08/2021 4:20 PM EDT 02/08/2021 4:20 PM EDT Edilma Mary MD POINT OF CARE TEST O VIKKI Performing Organization Address [facility] Co de Phone Number [facility] [place] [address] * POCT Glucose (02/08/2021 12:11 PM EDT) Glucose, POC 186 65 - 199 mg/dL [facility] Comment: Supplemental ranges: <140 mg/dL before meals <180 mg/dL all other times of the day Blood 02/08/2021 12:1 1 PM EDT 02/08/2021 12:11 PM EDT Edilma Mary MD POINT OF CARE TEST O RDERAMISBAH Performing Organization Address City/[facility]/ZIP Co de Phone Number [facility] [place] [address] * Anaerobic Culture (02/08/2021 10:30 AM EDT) Anaerobic Culture No anaerobic organisms isolated [facility] Deep Wound ANKLE REGION STRUCTURE / Unknown 02/08/2021 10:30 AM EDT 02/08/2021 11:32 AM EDT Comment:SWAB ANKLE HARDWARE #3 Narrative Resulting Agency Comment Spec In Lab Henrry Quiñones MD MICROBIOLOGY - GENE RAL ORDERABLES Performing Organization Address [facility] de Phone Number [facility] [place] [address] * (ABNORMAL) Abscess/Wound Aspirate Culture (02/08/2021 10:30 AM EDT) Abscess/Woun d Aspirate Culture Moderate Staphylococcus aureus : Susceptibilities previously reported Few Enterococcus faecalis : Susceptibilities previously reported (A) [facility] Gram Stain Few Neutrophils seen Rare Gram Positive Cocci seen (A) [facility] Organism Staphylococcus aureus(A) [facility] Organism Enterococcus faecalis(A) [facility] Organism Gram Positive Cocci(A) [facility] Deep Wound ANKLE REGION STRUCTURE / Unknown 02/08/2021 10:30 AM EDT 02/08/2021 11:32 AM EDT Comment:SWAB ANKLE HARDWARE #3 Narrative Resulting Agency Comment Spec In Lab Henrry Quiñones MD MICROBIOLOGY - GENE RAL ORDERABLES Performing Organization Address [facility] de Phone Number [facility] [place] [address] * Anaerobic Culture (02/08/2021 10:30 AM EDT) Anaerobic Culture No anaerobic organisms isolated [facility] Deep Wound ANKLE REGION STRUCTURE / Unknown 02/08/2021 10:30 AM EDT 02/08/2021 11:33 AM EDT Comment:SWAB LEFT ANKLE HARD FERGUSON #2 Narrative Resulting Agency Comment Spec In Lab Henrry Quiñones MD MICROBIOLOGY - GENE RAL ORDERABLES Performing Organization Address [facility]/ZIP Co de Phone Number [facility] [place] [address] * (ABNORMAL) Abscess/Wound Aspirate Culture (02/08/2021 10:30 AM EDT) Abscess/Woun d Aspirate Culture Many Staphylococcus aureus : Susceptibilities previously reported Many Enterococcus faecalis : Susceptibilities previously reported (A) [facility] Gram Stain Few Neutrophils seen Moderate Gram Positive Cocci (A) [facility] Organism Staphylococcus aureus(A) [facility] Organism Enterococcus faecalis(A) [facility] Deep Wound ANKLE REGION STRUCTURE / Unknown 02/08/2021 10:30 AM EDT 02/08/2021 11:33 AM EDT Comment:SWAB LEFT ANKLE HARD FERGUSON #2 Narrative Resulting Agency Comment Spec In Lab Henrry Quiñones MD MICROBIOLOGY - GENE RAL ORDERABLES Performing Organization Address [facility]/ZIP Co de Phone Number [facility] [place] [address] * Anaerobic Culture (02/08/2021 10:30 AM EDT) Anaerobic Culture No anaerobic organisms isolated [facility] Deep Wound ANKLE REGION STRUCTURE / Unknown 02/08/2021 10:30 AM EDT 02/08/2021 11:31 AM EDT Comment:SWAB LEFT ANKLE HARD FERGUSON #1 Narrative Resulting Agency Comment Spec In Lab Henrry Quiñones MD MICROBIOLOGY - GENE RAL ORDERABLES Performing Organization Address City/[facility]/ZIP Co de Phone Number [facility] [place] [address] * (ABNORMAL) Abscess/Wound Aspirate Culture (02/08/2021 10:30 AM EDT) Abscess/Wound Aspirate Culture Many Staphylococcus aureus Many Enterococcus faecalis (A) [facility] Gram Stain Moderate Neutrophils Many Gram Positive Cocci seen (A) [facility] Organism Staphylococcus aureus(A) [facility] Organism Enterococcus faecalis(A) [facility] Organism Gram Positive Cocci(A) [facility] Deep Wound ANKLE REGION STRUCTURE [...] Sensitive Comment:Gentamicin i s not appropriate for [place]-therapy. Staphylococcus aureus Oxacillin VITEK 2 METHOD Sensitive [...] Sensitive Henrry Quiñones MD MICROBIOLOGY - GENE [facility] ORDERABLES Performing Organization Address City/State/[facility] Co de Phone Number [facility] [place] [address] * POCT Glucose (02/08/2021 7:57 AM EDT) Glucose, POC 141 65 - 199 mg/dL [facility] Comment: Supplemental ranges: <140 mg/dL before meals <180 mg/dL all other times of the day Blood 02/08/2021 7:57 AM EDT 02/08/2021 7:57 AM EDT Mark Chavez MD POINT OF CARE TEST O RDERABLES Performing Organization Address City/[facility]/ZIP Co de Phone Number [facility] [place] [address] * POCT Glucose (02/08/2021 4:10 AM EDT) [facility] Glucose, POC 164 65 - 199 mg/dL [facility] Comment: Supplemental ranges: <140 mg/dL before meals <180 mg/dL all other times of the day Blood 02/08/2021 4:10 AM EDT 02/08/2021 4:10 AM EDT Mark Chavez MD POINT OF CARE TEST O RDERABLES Performing Organization Address [facility] Co de Phone Number [facility] [place] [address] * (ABNORMAL) Differential, Automated (02/08/2021 3:19 AM EDT) [facility] Neutrophil % 80.5 % [facility] Neutrophil Absolute 6.90(H) 1.70 - 6.10 x10(3)/mc L [facility] Lymph % 10.6 % [facility] Lymphocytes Abs 0.9 0.9 - 3.2 x10(3)/mc L [facility] Monocyte % 7.8 % [facility] Monocyte Abs 0.7 0.3 - 0.9 x10(3)/mc L [facility] Eos % 0.4 % [facility] Eosinophils Abs 0.0 0.0 - 0.4 x10(3)/mc L [facility] Basophil % 0.2 % [facility] Baso Absolute 0.0 0.0 - 0.1 x10(3)/mc L [facility] Immature Gran % 0.50 % [facility] Comment: Immature granulocytes(IG's)percentage and absolute count will include metamyelocytes, myelocytes, and promyelocytes. Blood smears from CBCs yielding IG's will be scanned manually for concordance. If this scan disagrees with the automated IG or if promyelocytes are noted, a manual differential will be performed. Immature Gran Absolute 0.04 0.00 - 0.04 x10(3)/mc L [facility] Blood 02/08/2021 3:19 AM EDT 02/08/2021 3:50 AM EDT Narrative Resulting Agency Comment Spec In Lab Mark Chavez MD HEMATOLOGY ORDERABLE S [facility] [place] [address] * Hemogram (02/08/2021 3:19 AM EDT) White Blood Cell 8.6 4.0 - 9.5 x10(3)/[facility] LABOR[facility] Red Blood Cell 4.45 4.00 - 5.21 x10(6)/[facility] Hemoglobin 13.0 11.7 - 15.5 gm/dL [facility] Hematocrit 39.7 35.7 - 45.8 % [facility] Mean Cell Volume 89.2 82.6 - 94.4 fL [facility] Mean Cell Hemoglobin 29.2 27.1 - 32.0 pg [facility] Mean Cell Hemoglobin Concentration 32.7 31.7 - 35.0 gm/dL [facility] Platelet 165 145 - 357 x10(3)/[facility] LAB[facility] RDW Standard Deviation 42.5 37.0 - 46.0 fL [facility] RDW coefficient of variation 13.1 11.5 - 14.1 % [facility] Mean Platelet Volume 11.6 7.6 - 12.9 fL [facility] NRBC% auto 0.0 % [facility] NRBC Absolute 0.000 0.000 - 0.000 x10(3)/[facility] Blood 02/08/2021 3:19 AM EDT 02/08/2021 3:50 AM EDT Narrative Resulting Agency Comment Spec In Lab Mark Chavez MD HEMATOLOGY ORDERABLE S [facility] [place] [address] * (ABNORMAL) Hemoglobin A1c (02/08/2021 3:19 AM EDT) Hemoglobin A1c 7.9(H) 4.3 - 5.6 % [facility] Comment: Reference Range: 4.3 - [...] 1, S67-74 Estimated Average Glucose 181 mg/dL [facility] Comment: eAG equivalents for HbA1c [...] on the ADA website. Vinicius GARCIA, Jeannie Mills, Kinza R, et al. ??Translating the A1C assay into estimated average glucose values. ??Diabetes Care 2008:31(8):1075-7600. Blood 02/08/2021 3:19 AM EDT 02/08/2021 3:50 AM EDT Narrative Resulting Agency Comment Spec In Lab Mark Chavez MD CHEMISTRY ORDERABLES [facility] [place] [address] * Basic Metabolic Panel (non-fasting) (02/08/2021 3:19 AM EDT) Glucose 177 65 - 199 mg/dL [facility] Comment:Diabetes: >=200 mg/d L plus symptoms Blood Urea Nitrogen 13 8 - 18 mg/dL [facility] Creatinine 0.96 0.70 - 1.20 mg/dL [facility] Sodium 136 135 - 145 mmol/L [facility] Potassium 3.7 3.5 - 5.0 mmol/L [facility] Comment: Please note: ??Patients with WBC >100,000 may have falsely elevated Potassium levels. ??For accurate Potassium quantification in these patients send serum separator tube (gold top) for subsequent determinations. ??Contact the Clinical Chemistry Laboratory if there are any questions. Chloride 102 98 - 107 mmol/L [facility] Carbon Dioxide 23 22 - 31 mmol/L [facility] Anion Gap 11 5 - 15 mmol/L [facility] Calcium 9.0 8.5 - 10.5 mg/dL [facility] Est Glomerular Filtration Rate 65 >=60 mL/min/1. 73 m?? [facility] Comment: This patient? s estimated [...] Mary MD CHEMISTRY ORDERABLES Performing Organization Address City/[facility]/ZIP Co de Phone Number [facility] [place] [address] * (ABNORMAL) POCT Glucose (02/08/2021 2:05 AM EDT) Glucose, POC 204(H) 65 - 199 mg/dL [facility] Comment: Supplemental ranges: <140 mg/dL before meals <180 mg/dL all other times of the day Blood 02/08/2021 2:05 AM EDT 02/08/2021 2:05 AM EDT Mark Chavez MD POINT OF CARE TEST O RDERABLES Performing Organization Address [facility] Co de Phone Number [facility] [place] [address] * (ABNORMAL) POCT Glucose (02/07/2021 11:47 PM EDT) Glucose, POC 267(H) 65 - 199 mg/dL [facility] Comment: Supplemental ranges: <140 mg/dL before meals <180 mg/dL all other times of the day Blood 02/07/2021 11:4 7 PM EDT 02/07/2021 11:47 PM EDT Mark Chavez MD POINT OF CARE TEST O RDERABLES Performing Organization Address [facility] Co de Phone Number [facility] [place] [address] * (ABNORMAL) POCT Glucose (02/07/2021 10:07 PM EDT) Glucose, POC 311(H) 65 - 199 mg/dL [facility] Comment: Supplemental ranges: <140 mg/dL before meals <180 mg/dL all other times of the day Blood 02/07/2021 10:0 7 PM EDT 02/07/2021 10:07 PM EDT Mark Chavez MD POINT OF CARE TEST O VIKKI Performing Organization Address [facility]/ZIP Co de Phone Number [facility] [place] [address] * (ABNORMAL) POCT Glucose (02/07/2021 8:51 PM EDT) Glucose, POC 254(H) 65 - 199 mg/dL [facility] Comment: Supplemental ranges: <140 mg/dL before meals <180 mg/dL all other times of the day Blood 02/07/2021 8:51 PM EDT 02/07/2021 8:51 PM EDT Mark Chavez MD POINT OF CARE TEST Jerrod FLOREZ Performing Organization Address [facility]/ZIP Co de Phone Number [facility] [place] [address] * Blood culture (02/07/2021 7:37 PM EDT) Blood Culture No growth at 5 days. [facility] Blood 02/07/2021 7:37 PM EDT 02/07/2021 7:50 PM EDT Comment:L AC Narrative Resulting Agency Comment Spec In Lab Jacobo De La Cruz MD MICROBIOLOGY - BLOOD ORDERABLES Performing Organization Address City/[facility]/ZIP Co de Phone Number [facility] [place] [address] * Blood culture (02/07/2021 6:55 PM EDT) Blood Culture No growth at 5 days. [facility] Blood 02/07/2021 6:55 PM EDT 02/07/2021 7:51 PM EDT Narrative Resulting Agency Comment Spec In Lab Jacobo De La Cruz MD MICROBIOLOGY - BLOOD ORDERABLES Performing Organization Address [facility]/ZIP Co de Phone Number [facility] [place] [address] * Ab Comment (02/07/2021 6:50 PM EDT) [...] MD, PhD Transfusion Medicine Service 02/09/21 21:44 [facility] Comment: DUGLAS MURPHY, Pathologist Verified:02/09/21 Blood 02/07/2021 6:50 PM EDT 02/07/2021 7:05 PM EDT Narrative Resulting Agency Comment Spec In Lab Nuvia DIALLO BLOOD BANK LAB ORDErica LEMOS Performing Organization Address City/[facility]/ZIP Co de Phone Number [facility] [place] [address] * Antibody identification (02/07/2021 6:50 PM EDT) Ab Identified Anti-K [facility] Blood 02/07/2021 6:50 PM EDT 02/07/2021 7:05 PM EDT Narrative Resulting Agency Comment Spec In Lab Nuvia DIALLO BLOOD BANK LAB ORDE AMINTA [facility] [place] [address] * Type and Screen Validity (02/07/2021 6:50 PM EDT) T&S only valid at [facility] LABORATORY Comment:This Type and Screen result is only valid at the [facility] Blood 02/07/2021 6:50 PM EDT 02/07/2021 7:05 PM EDT Narrative Resulting Agency Comment Spec In Lab Nuvia DIALLO BLOOD BANK LAB ORDE AMINTA [facility] [place] [address] * ABORH Recheck Status (02/07/2021 6:50 PM EDT) ABORH Recheck Order Order Placed [facility] ABORH Type Recheck Complete [facility] Blood 02/07/2021 6:50 PM EDT 02/07/2021 7:05 PM EDT Narrative Resulting Agency Comment Spec In Lab Nuvia DIALLO BLOOD BANK LAB ORDE AMINTA [facility] [place] [address] * Antibody screen (02/07/2021 6:50 PM EDT) Ab Screen Interp Positive [facility] Expires at [id number] on: 02/10/2021 [facility] Blood 02/07/2021 6:50 PM EDT 02/07/2021 7:05 PM EDT Narrative Resulting Agency Comment Spec In Lab Nuvia DIALLO BLOOD BANK LAB ORDE AMINTA [facility] [place] [address] * ABO/Rh Typing (02/07/2021 6:50 PM EDT) ABORH Type O Neg [facility] Blood 02/07/2021 6:50 PM EDT 02/07/2021 7:05 PM EDT Narrative Resulting Agency Comment Spec In Lab Nuvia DIALLO BLOOD BANK LAB ALMA LEMOS [facility] [place] [address] * CT Lower Extremity w Contrast Left [...] questions please contact the health home health aide caregiver that requested your imaging first. ? [...] Within these limits, there is a small cwx-[id number]-kbxtomyli collection adjacent to the distal aspect of [...] have questions please contactthe health home health aide caregiver that requested your imaging first. Mark Chavez MD [facility] CT ORDERABLES * XR Ankle Min 3 [...] questions please contact the health home health aide caregiver that requested your imaging first. ? Electronically signed by: Anthony Carrillo MD, [facility] ([phone]), at 02/07/2021 3:44 PM Narrative 02/07/2021 3:44 [...] of [place] fat pad. Procedure Note Anthony Carrillo MD - 02/07/2021 EXAMINATION: XR ANKLE MIN [...] have questions please contactthe health home health aide caregiver that requested your imaging first. Kristian Colorado III, MD IMG DX ORDERABLES * Vitamin D, 25-Hydroxy (02/07/2021 3:03 PM EDT) Vitamin D Total 25 OH 55 21 - 100 ng/mL [facility] Vit D Interp Sufficient [facility] Blood Venous Draw / Unknown 02/07/2021 3:03 PM EDT 02/07/2021 3:14 PM EDT Narrative Resulting Agency Comment Spec In Lab Cami Ugarte APRN CHEMISTRY ORDERABLES [facility] [place] [address] * Green Tube HOLD (02/07/2021 3:03 PM EDT) Green Hold Sample in lab. [facility] Blood Venous Draw / Unknown 02/07/2021 3:03 PM EDT 02/07/2021 3:11 PM EDT Nuvia DIALLO CHEMISTRY ORDERABLE S [facility] [place] [address] * Gold Tube HOLD (02/07/2021 3:03 PM EDT) Gold Hold Sample in lab. [facility] Blood Venous Draw / Unknown 02/07/2021 3:03 PM EDT 02/07/2021 3:10 PM EDT Nuvia DIALLO CHEMISTRY ORDERABLE S [facility] [place] [address] * (ABNORMAL) Differential, Automated (02/07/2021 3:03 PM EDT) Neutrophil % 90.7 % [facility] Neutrophil Absolute 8.98(H) 1.70 - 6.10 x10(3)/[facility] LABOR[facility] Lymph % 3.1 % [facility] Lymphocytes Abs 0.3(L) 0.9 - 3.2 x10(3)/[facility] Monocyte % 5.2 % [facility] Monocyte Abs 0.5 0.3 - 0.9 x10(3)/[facility] Eos % 0.2 % [facility] Eosinophils Abs 0.0 0.0 - 0.4 x10(3)/[facility] Basophil % 0.5 % [facility] Baso Absolute 0.0 0.0 - 0.1 x10(3)/[facility] Immature Gran % 0.30 % [facility] Comment: Immature granulocytes(IG's)percentage and absolute count will include metamyelocytes, myelocytes, and promyelocytes. Blood smears from CBCs yielding IG's will be scanned manually for concordance. If this scan disagrees with the automated IG or if promyelocytes are noted, a manual differential will be performed. Immature Gran Absolute 0.03 0.00 - 0.04 x10(3)/[facility] Blood 02/07/2021 3:03 PM EDT 02/07/2021 3:08 PM EDT Narrative Resulting Agency Comment Spec In Lab Nuvia DIALLO HEMATOLOGY ORDERABL ES [facility] [place] [address] * (ABNORMAL) Hemogram (02/07/2021 3:03 PM EDT) White Blood Cell 9.9(H) 4.0 - 9.5 x10(3)/[facility] Red Blood Cell 4.77 4.00 - 5.21 x10(6)/[facility] Hemoglobin 13.8 11.7 - 15.5 gm/dL [facility] Hematocrit 41.8 35.7 - 45.8 % [facility] Mean Cell Volume 87.6 82.6 - 94.4 fL [facility] Mean Cell Hemoglobin 28.9 27.1 - 32.0 pg [facility] Mean Cell Hemoglobin Concentration 33.0 31.7 - 35.0 gm/dL [facility] Platelet 170 145 - 357 x10(3)/[facility] RDW Standard Deviation 41.8 37.0 - 46.0 [facility] LABORATORY RDW coefficient of variation 12.9 11.5 - 14.1 % [facility] Mean Platelet Volume 11.2 7.6 - 12.9 [facility] LABORATORY NRBC% auto 0.0 % [facility] NRBC Absolute 0.000 0.000 - 0.000 x10(3)/[facility] Blood 02/07/2021 3:03 PM EDT 02/07/2021 3:08 PM EDT Narrative Resulting Agency Comment Spec In Lab Nuvia DIALLO HEMATOLOGY ORDERABL ES [facility] [place] [address] * (ABNORMAL) CRP, acute inflammation (02/07/2021 3:03 PM EDT) C-Reactive Protein >300.0(H) <=4.9 mg/L [facility] Blood 02/07/2021 3:03 PM EDT 02/07/2021 3:13 PM EDT Narrative Resulting Agency Comment Spec In Lab Kristian Colorado III, MD CHEMISTRY ORDERABL ES Performing Organization Address [facility]/ZIP Co de Phone Number [facility] [place] [address] * (ABNORMAL) Sedimentation rate (02/07/2021 3:03 PM EDT) Sedimentation Rate Automated 58(H) 2 - 39 mm/hr [facility] Comment: Effective August 01, 2019 new capillary photometric technology has resulted in a change in reference ranges. It is recommended that each ESR result be reviewed with its own age appropriate reference range. Blood 02/07/2021 3:03 PM EDT 02/07/2021 3:08 PM EDT Narrative Resulting Agency Comment Spec In Lab Kristian Colorado III, MD HEMATOLOGY ORDERAB LES Performing Organization Address [facility]/ZIP Co de Phone Number [facility] [place] [address] * (ABNORMAL) Basic Metabolic Panel (non-fasting) (02/07/2021 3:03 PM EDT) Glucose 315(H) 65 - 199 mg/dL [facility] Comment:Diabetes: >=200 mg/d L plus symptoms Blood Urea Nitrogen 12 8 - 18 mg/dL [facility] Creatinine 1.00 0.70 - 1.20 mg/dL [facility] Sodium 135 135 - 145 mmol/L [facility] Potassium 4.1 3.5 - 5.0 mmol/L [facility] Comment: Please note: ??Patients with WBC >100,000 may have falsely elevated Potassium levels. ??For accurate Potassium quantification in these patients send serum separator tube (gold top) for subsequent determinations. ??Contact the Clinical Chemistry Laboratory if there are any questions. Chloride 102 98 - 107 mmol/L [facility] Carbon Dioxide 22 22 - 31 mmol/L [facility] Anion Gap 11 5 - 15 mmol/L [facility] Calcium 9.3 8.5 - 10.5 mg/dL [facility] Est Glomerular Filtration Rate 62 >=60 mL/min/1. 73 m?? [facility] Comment: This patient? s estimated [...] Kristian Colorado III, MD CHEMISTRY ORDERABL ES [facility] [place] [phone] documented in this encounter Visit Diagnoses Not on filedocumented in this encounter Admitting Diagnoses Diagnosis Ankle [...] Given 02/17/2021 10:06 PM EDT 1,000 mg aspirin EC tablet 81 mg 81 mg, Oral, DAILY, First dose on 02/08/21 at 0900, Until Discontinued, Routine Given 02/18/2021 8:47 AM EDT 81 mg Given 02/17/2021 8:47 AM EDT 81 mg Given 02/16/2021 8:20 AM EDT 81 mg buPROPion XL (Wellbutrin XL) tablet 150 mg 150 mg, Oral, EVERY MORNING, First dose on Tue02/08/21 at 0700, Until Discontinued, DO NOT CRUSH OR OPEN, Routine Given 02/18/2021 8:47 AM EDT 150 mg Given 02/17/2021 8:46 AM EDT 150 mg Given 02/16/2021 6:00 AM EDT 150 mg calcium carbonate (Tums) chewable tablet 1,250 mg 1,250 mg, Oral, DAILY, First dose on Tue02/08/21 at 0900, Until Discontinued Given 02/18/2021 8:45 AM EDT 1,250 mg Given 02/16/2021 8:21 AM EDT 1,250 mg Given 02/15/2021 8:13 AM EDT 1,250 mg cyclobenzaprine (Flexeril) tablet 10 mg 10 mg, Oral, 3 TIMES DAILY PRN, Starting on 02/07/21 at 2159, Until Tue02/18/21 at 2106, Muscle spasms, Routine Given 02/17/2021 8:54 AM [...] most appropriate choice: ID Approval by Gustabo Acevedo 02/18/2021 4:00 PM EDT 700 mg 128 mL/hr dextrose 10% infusion 250 mL, at 1,000 mL/hr, Intravenous, EVERY 30 MIN PRN, Starting on 02/07/21 at 2159, Until Tue02/18/21 at 2106, For BG 50-70 mg/dL: Oral treatment preferred:?? [...] 20 Units, Subcutaneous, NIGHTLY, First dose on 02/07/21 at [...] Given 02/18/2021 8:42 AM EDT 5 Units levothyroxine (Synthroid) tablet 50 mcg 50 [...] give additional 5mg, Routine oxyCODONE (Roxicodone) tablet 5-10 mg 5-10 mg, [...] Oral, 2 TIMES DAILY, First dose on [place] 02/08/21 at 2100, Until Discontinued, Hold for loose stools please! Thanks!, Routine Given 02/17/2021 8:38 PM EDT 2 tablets Given 02/16/2021 8:13 PM EDT 2 tablets Given 02/16/2021 8:19 AM EDT 2 tablets sertraline (Zoloft) tablet 200 mg 200 mg, Oral, DAILY, First dose on [place] 02/08/21 at 0900, Until Discontinued, Routine Given [...] Given 02/17/2021 8:48 AM EDT 5 mLs topiramate (Topamax) tablet 100 mg 100 mg, Oral, 2 TIMES DAILY, First dose on 02/07/21 at 2245, Until Discontinued, DO NOT SPLIT, CRUSH OR OPEN, Routine Given 02/18/2021 8:48 AM EDT 100 mg Given 02/17/2021 8:39 PM EDT 100 mg Given 02/17/2021 8:45 AM EDT 100 mg documented in this encounter Active and Recently Administered Medications Times are shown in EDT. Scheduled Medication Order 02/16/2021 02/17/2021 02/18/2021 acetaminophen (Tylenol) tablet 1,000 mg 1,000 mg, Oral, EVERY 8 HOURS SCHEDULED, First dose (after last modification) on [place] 02/08/21 at 1400, Until Discontinued, Administer for temperature greater than or equal to 38.2 degrees celsius. Maximum daily dose of acetaminophen from all sources not to exceed 3,000 mg. When ordered for pain, acetaminophen should be given even when other ordered pain medications are indicated., Routine 0600 (Given - Provider: Anita Sosa RN)1418 (Given - Provider: Cynthia Tadeo, SUNIL)2124 (Given - Provider: Juani Sanchez RN) 0551 (Given - Provider: Madeline Salomon RN)1315 (Given - Provider: Sherwin Hermosillo RN)2206 (Given - Provider: Elle Escalante, RN) 0539 (Given - Provider: Elle Escalante RN)1423 (Given - Provider: Kelsie Herbert RN) aspirin EC tablet 81 mg 81 mg, [...] 0847 (Given - Provider: Kelsie Herbert RN) calcium carbonate (Tums) chewable tablet 1,250 mg 1,250 mg, Oral, DAILY, First dose on 02/08/21 at 0900, Until Discontinued 0821 (Given - Provider: Cynthia Tadeo RN) 0848 (Not Given - Provider: Sherwin Hermosillo [...] appropriate choice: ID Approval by Gustabo Murray 2013 (New Bag - Provider: Juani Sanchez RN)2043 (Stopped - Provider: Juani Sanchez RN) 2050 (New Bag - Provider: Elle Escalante RN)2202 (Stopped - Provider: Elle Escalante RN) DAPTOmycin [...] Hermosillo RN) 0847 (Given - Provider: Kelsie Herbert, SUNIL) gabapentin (Neurontin) capsule 300 mg 300 mg, Oral, 3 TIMES DAILY, First dose on Tue02/07/21 at 2245, Until Discontinued, Routine 0819 (Given - Provider: Cynthia Tadeo RN)1418 (Given - Provider: Cynthia Tadeo RN)2013 (Given - Provider: Juani Sanchez RN) 0847 (Given - Provider: Sherwin Hermosillo RN)1538 (Given - Provider: Sherwin Hermosillo RN)2038 (Given - Provider: Elle Escalante RN) 0847 (Given - Provider: Kelsie Herbert, SUNIL)1423 (Given - Provider: eKlsie Herbert, SUNIL) insulin glargine (Lantus) (100 unit/mL) subcutaneous injection vial 20 Units 20 Units, Subcutaneous, NIGHTLY, First dose on Tue02/07/21 at 2245, Until Discontinued, Routine 2012 (Given - Provider: Juani Kang V, RN) 2033 (Given - Provider: Elle Escalante, SUNIL) insulin lispro (HumaLOG;Admelog) (100 unit/mL) subcutaneous injection vial 0-8 Units 0-8 Units, Subcutaneous, 3 TIMES DAILY WITH MEALS, First dose on Tue02/11/21 at 0845, Until Discontinued, [employer] Give 1 unit for every 10 grams carbohydrate. Hold if not eating or if BG less than 70 mg/dL., Routine 0828 (Given - Provider: Cynthia Tadeo, RN)1331 (Given - Provider: Cynthia Tadeo, RN)1824 (Given - Provider: Cynthia Tadeo, SUNIL) 0800 (Not Given - Provider: Sherwin Hermosillo [...] Comment: bg 197)2012 (Given - Provider: Juani Sanchez RN) 0844 (Given - Provider: Sherwin Hermosillo RN)1239 (Given - Provider: Sherwin Hermosillo RN)1637 (Given - Provider: Sherwin Hermosillo RN)2034 (Given - Provider: Elle Escalante, SUNIL) 0842 (Given - Provider: Kelsie Herbert, SUNIL)1215 [...] Reason: Patient/family refused)2037 (Given - Provider: Elle Escalante RN) 0846 (Not Given - Provider: Kelsie Herbert RN - Reason: Patient/family refused) sertraline (Zoloft) tablet 200 mg 200 mg, Oral, DAILY, First dose on 02/08/21 at 0900, Until Discontinued, Routine 0821 (Given - Provider: Cynthia Tadeo, RN) 0854 (Given - Provider: Sherwin Hermosillo, SUNIL) 0848 (Given - Provider: Kelsie Herbert, SUNIL) sodium chloride 0.9 % (flush) flush 5 mL 5 mL, Intravenous, 2 TIMES DAILY, First dose on 02/07/21 at 2245, Until Discontinued, Routine 0821 (Given - Provider: Cynthia Tadeo, SUNIL)2012 (Given - Provider: Juani Sanchez RN) 0848 (Given - Provider: Sherwin Hermosillo RN)2050 (Given - Provider: Elle Escalante, SUNIL) 0853 (Given - Provider: Kelsie Herbert, SUNIL) topiramate (Topamax) tablet 100 mg 100 mg, Oral, 2 TIMES DAILY, First dose on 02/07/21 at 2245, Until Discontinued, DO NOT SPLIT, CRUSH OR OPEN, Routine 0821 (Given - Provider: Cynthia Tadeo, SUNIL)2013 (Given - Provider: Juani Sanchez RN) 0845 (Given - Provider: Sherwin Hermosillo, SUNIL)2038 (Given - Provider: Elle Escalante, SUNIL) 0848 (Given - Provider: Kelsie Herbert, SUNIL) PRN Medication Order 02/16/2021 02/17/2021 02/18/2021 cyclobenzaprine (Flexeril) tablet 10 mg 10 mg, Oral, 3 TIMES DAILY PRN, Starting on 02/07/21 at 2159, Until 02/18/21 at 2107, Muscle spasms, Routine 0854 (Given - Provider: Sherwin Hermosillo RN) dextrose 10% infusion(Linked Group 3) 250 mL, at 1,000 mL/hr, Intravenous, EVERY 30 MIN PRN, Starting on 02/07/21 at 2159, Until 02/18/21 at 2107, For BG 50-70 mg/dL: Oral [...] Warning Vesicant/Irritant Medication , Radiology Contrast, Routine 1549 (Given - Provider: Yani Hughes) lidocaine (Xylocaine) 1% (10 mg/mL) injection 3 mg 3 mg (0.3 mL), Subcutaneous, ONCE PRN, 1 dose, Starting on 02/07/21 at 2159, Until Tue02/18/21 at 2107, for discomfort with PIV insertion, Routine magnesium [...] PRN, Starting on 02/08/21 at 1507, Until Tue02/17/21 at 2348, Pain, pain >6/10 not improved by non-narcotic options, Routine 0359 (Given - Provider: Anita Sosa RN)1153 (Given - Provider: Cynthia Tadeo, SUNIL)1824 (Given - Provider: Cynthia Tadeo RN)2359 (Given - Provider: Madeline Salomon, RN) 0551 (Given - Provider: Madeline Salomon, RN)1025 (Given - Provider: Sherwin Hermosillo, RN)1541 (Given - Provider: Sherwin Hermosillo, RN)2038 (Given - Provider: Elle Escalante, RN) oxyCODONE (Roxicodone) tablet 5-10 mg(Linked Group 5) 5-10 mg, Oral, EVERY 4 HOURS PRN, Starting on Tue02/17/21 at 2348, Until Tue02/18/21 at 2107, Pain, moderate pain (4-6), Initial dose 5mg. If pain control not adequate in 60 minutes, give additional 5mg, Routine 0000 (Given - Provider: Elle Escalante, SUNIL)0539 (Given - Provider: Elle Escalante, RN) sodium chloride 0.9 % (flush) flush 5-20 mL 5-20 mL, Intravenous, EVERY 1 MIN PRN, Starting on Tue02/07/21 at 2159, Until Tue02/18/21 at 2107, flush, [...] 02/07/21 at 2159, Until Tue02/18/21 at 2106, For BG 50-70 mg/dL: Oral treatment preferred:?? 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
--- OUTSIDE RECORDS SUMMARY | 2024-05-31 17:46 | XMS_ITS | Encounter Summary ---
Author Organization [facility] Address [facility] [address] Care Team Providers Care Transformer Assembler Name Role Phone Maryuri Evans MD Primary Care Provider [phone] Reason for Visit * Reason Comments Cast Problem * Auth/Cert Specialty Diagnoses / Procedures Referred By Contac t Referred To Contact Diagnoses Abscess of ankle Ankle abscess Procedures Emergency IPI Referral ID Status Reason Start Date Expiration Date Visits Re quested Visits Authorized [id number] 1 1 Encounter Details Date Type Department Care Team (Late st Contact Info) Description 02/12/2021 3:58 PM EDT - 02/12/2021 5:02 PM EDT Surgery [place] [phone] Sabrina Capellan MD [facility] [place] [address] DEBRIDEMENT SKIN AND SUBCU, LOWER EXTREMITY (WRVU 1.01) Social History Tobacco Use Types Packs/Day Years [...] Sign Reading Time Taken Comments Blood Pressure 127/66 02/12/2021 3:40 PM EDT Pulse 94 02/10/2021 11:42 AM EDT Temperature 36.9 ??C (98.4 ??F) 02/12/2021 3:40 PM ED T Respiratory Rate 16 02/12/2021 3:40 PM EDT Oxygen Saturation 95% 02/12/2021 3:40 PM EDT Inhaled Oxygen Concentration - - Weight 83 kg (183 lb) 02/07/2021 2:38 PM EDT Height 157.5 cm (5' 2) 02/07/2021 2:38 PM EDT Body Mass Index 33.47 02/07/2021 2:38 PM EDT documented in this encounter Discharge Summaries * Cami Ugarte, SREE - 02/18/2021 7:40 AM EDT Discharge Summary Patient Name: Jesenia Méndez Patient Age: 60 y.o. Language: Malagasy Race: White Ethnicity: Not nor Admit date: [...] please contact your inpatient physician through the [facility] Training Program Assistant . Issues afterhours and on weekends will [...] internal fixation on January 21, 2021 at [facility] for left ankle fracture that [...] plate, and had cast exchange done at [facility] Ortho clinic yesterday. She reported that [...] who have questions please contact the health personal care aid that requested your imaging first. Electronically signed by: Anthony Carrillo MD, [facility] ([phone]), at 02/07/2021 3:[address] Lower Extremity [...] who have questions please contact the health personal care aid that requested your imaging first. Electronically signed by: Meli Gonzales MD, [facility] ([phone]), at 02/07/2021 6:17 PM XR Ankle Min [...] who have questions please contact the health personal care aid that requested your imaging first. Electronically signed by: Christian Leon MD, [facility] ([phone]), at 02/14/2021 2:58 AM XR PICC Placement [...] who have questions please contact the health personal care aid that requested your imaging first. Electronically signed by: BLAZE SALEEM MD, [facility] ([phone]), at 02/14/2021 9:[address] Angiogram Lower [...] who have questions please contact the health personal care aid that requested your imaging first. Pending Studies and Lab Data: None Discharge Conditions/Prognosis: Stable/fair Discharge to: Home w/ OPAT, VNA Updated Allergies/ADRs: Allergies Allergen Reactions ??? Latex Rash ??? Erythromycin Lactobionate Nausea Only ??? Metformin Nausea Only ??? Red Blood Cells Other (See Comments) Antibodies-Difficult to Crossmatch DO NOT REMOVE Please contact the Blood Bank at [phone] for questions. ??? Pollen Extracts Other (See [...] ankle needing wound vac, multiple debridements, and residential IV antibiotics Specific instructions related to your [...] Center 03/05/2021 4:00 PM Cyndy Moran APRN [facility] ID 5C [facility] 03/20/2021 9:00 AM Juani Miller DO [facility] ID [address] [place] [address] 03/20/2021 1:00 PM CAST ROOM 3A [facility] ORTH [address] [place] [address] 03/20/2021 1:30 PM [facility] DX ROOM 3 Xray [facility] 03/20/2021 2:20 PM Dorina Campbell APRN [facility] ORTH [address] [place] [address] Your Inpatient Doctor: MARK CHAVEZ NAYLA MATHEW, ROBERT K Your Primary Care Provider: Maryuri Evans MD For questions regarding this document or issues relating to this hospitalization on the Medical Service, please contact your inpatient physician through the [facility] Training Program Assistant . Issues afterhours and on weekends will be handled by the Hospitalist staff on-call. General Instructions None Future Appointments and Orders Future Appointments and Orders Future Appointments Provider Department Dept Phone 03/05/2021 4:00 PM Cyndy Moran APRN Infectious Disease at [facility] Arrive at: Sales Specialist Area [phone] 03/20/2021 9:00 AM Juani Miller DO Infectious Disease at [facility] Arrive at: Sales Specialist Area [phone] 03/20/2021 1:00 PM CAST ROOM 3A Orthopaedics at [facility] Arrive at: Sales Specialist Area 3A [phone] 03/20/2021 1:30 PM [facility] DX ROOM 3 XRay at [facility] Arrive at: Sales Specialist Area [phone] Please go to Sales Specialist Area 3T ([place] Location). 03/20/2021 2:20 Dorina Meyers APRN Orthopaedics at [facility] Arrive at: Sales Specialist Area 3A [phone] Future Orders Complete By Expires Full code [...] Recommendation for Post Discharge IV Antibiotic Management [CNY009 CPT(R)] As directed Process Instructions: If no progress note charted, please enter Clinical details in comments. Scheduling Instructions: Comments: Please Fax all results to: OPAT Program Infectious Disease Section [facility], [place] [address] FAX: After hours, please contact the Infectious Disease Physician credit administration officer at . If this order was signed greater than 72 hours prior to [facility] discharge, please call to confirm the accuracy [...] Saline then 3 ml heparin (10 units/ml) [facility] for medication administration/planting supervisor and catheter care/maintenance authorized. PICC Dressing [...] Tuesday and PRN and fax results to [facility] at [phone]. Please see OPAT order for lab draw [...] Referral to Home Health - at DISCHARGE [ZZA9282 CPT(R)] As directed Process Instructions: Scheduling Instructions: Comments: DOCUMENTATION FOR VNA SERVICES (INCLUDING THOSE PATIENTS WITH MEDICARE COVERAGE REQUIRING HOME VNA SERVICES AND/OR HOSPICE SERVICES) PATIENT'S LOCATION: Jesenia Méndez [address] [facility] [address] Cofounder's Name: Patient & family In discussion with the attending physician, it is certified that this patient is under their care and that they, or a Nurse Practitioner,Clinical Nurse specialist or Physician Microsoft Bi Consultant who is working directly with them, had [...] assess and continue rehab for managing ADL's. AUTOMOTIVE TECHNOLOGY INSTRUCTOR: assist with ADLs as directed by RN HOME HEALTH CARE AGENCY: [facility] PHONE: [phone] FAX: [phone] Start of care: 24-48 hours of discharge Please note that any additional orders needs or changes will need to be obtained from this patient's PCP: Maryuri Evans MD [address] [facility] [id number] All VNA agencies which cover the area of patient's residence have been reviewed, either verbally jeaneth writing, and patient/family have chosen the home health care agency noted Questions: Agency name and contact information: [facility] Patient location post discharge: Home What services are requested: Registered Nurse Physical Therapy Occupational Therapy Home Health Aide Start date: Responsible MD post discharge contact info: PCP Harinder joy [[id number] Custom] As directed Process Instructions: Scheduling Instructions: Comments: Jesenia Méndez [address] [facility] [address] [place] [phone] Diagnosis: Left ankle I&D for abscess and [...] ORIF (Open Reduction With Internal Fixation): Post-op (Malagasy) documented in this encounter Discharge Instructions * Patient Instructions* Cami Ugarte APRN - 02/18/2021 2:50 PM EDT Instructions on Discharge to Home Why you were hospitalized: infected hardware of L ankle needing wound vac, multiple debridements, and oysterman IV antibiotics Specific instructions related to your [...] Center 03/05/2021 4:00 PM Cyndy Moran APRN [facility] ID 5C [facility] 03/20/2021 9:00 AM Juani Miller DO [facility] ID 5C [facility] 03/20/2021 1:00 PM CAST ROOM 3A [facility] ORTH 3A [facility] 03/20/2021 1:30 PM [facility] DX ROOM 3 MH Xray [facility] Rad 03/20/2021 2:20 PM Dorina Campbell APRN [facility] ORTH 3A [facility] Your Inpatient Doctor: MARK CHAVEZ NAYLA MATHEW, ROBERT K Your Primary Care Provider: Maryuri Evans MD For questions regarding this document or issues relating to this hospitalization on the Medical Service, please contact your inpatient physician through the [facility] Training Program Assistant . Issues afterhours and on weekends will be handled by the Hospitalist staff on-call. * Attachments The following attachments cannot be sent through Care Everywhere. * ORIF (Open Reduction With Internal Fixation): Post-op (Malagasy) documented in this encounter Medications at Time [...] Plan for discharge is: Agency Referrals: 1. [facility]- ref done & order [...] Insurance: N/A Prescription Coverage: YES Preferred Pharmacy: [facility] [place], [place] - [address] [place] [id number] This plan was formulated with input from patient, father and team. All are in agreement with plan. Jacqui Lo RN Case Form Tamping Machine Operator of Care Management Pager: [phone] Ext: [phone] * Jacqui Lo RN - 02/18/2021 4:00 PM EDTSummary: CM Progress Note Rehabilitation Medicine Physician asking RS to please place referral to: Ortho Care Located @ [facility] Center [place], [place] Patient needs a walker with a right platform. Jacqui Lo RN, BSN, MST, ACM Algebraist pager#[phone] * Kalyani Dotson RN - 02/18/2021 3:15 PM EDTSummary: OPAT teach Infectious Disease/OPAT Program Teaching Visit Met with patient and her father at the bedside to discuss discharge on IV ABX. Patient was engaged in listening to the education; the father only listened to part of it. Patient verbally agrees to the personal responsibilities, and role of the AUTOMOTIVE TECHNOLOGY INSTRUCTOR, of being in the OPAT program although the primary team has concerns about follow-through/compliance with medical care. This RN discussed with [place] liasons Toño & Anton about further assessing follow-through with care during their teach with the patient (I.e. physically have patient practice flushing an IV line). Patient given and reviewed OPAT package including OPAT order, PICC line care including dressing changes and labs both weekly & prn, potential issues, what they might indicate and who to contact. Reviewed roles and responsibilities of AUTOMOTIVE TECHNOLOGY INSTRUCTOR and infusion vendor. Contact information for ID and ortho team/clinic, AUTOMOTIVE TECHNOLOGY INSTRUCTOR and infusion vendor given to pt. Discussed f/u appointments in ID 5C clinic. Pt verbalized understanding. All questions answered. IV & PO ABX Medications: Daptomycin 700mg IV Q24h AUTOMOTIVE TECHNOLOGY INSTRUCTOR: [facility] Infusion vendor: [facility] IV Access: PICC (single lumen) Placed: 02/14 Plan: discharge on OPAT program when medically ready. * Mable Brooks OTA - 02/18/2021 1:14 PM EDT Occupational Therapy Treatment Note Treatment Number OT: 3 Patient Dx: ?? Patient Dx: Jesenia Méndez??is a 60 y.o.?female??with??PMH significant for ID T2DM, R elbow fusion with serial casting, and L ankle fracture S/P ORIF at [facility] (01/21/21)??who presented to the ED for??RUE cast [...] 4.06) performed by Wesley Jacobo MD at [facility] ? ? PRO DEBRIDEMENT SUBCUTANEOUS TISSUE 20 SQCM/< Left 02/08/2021 ?? DEBRIDEMENT SKIN AND SUBCU, ??LOWER EXTREMITY (WRVU 1.01) performed by Henrry Quiñones MD [facility] MAIN OR ??? PRO FUSION/GRAFT OF ELBOW JOINT Right 2017 ?? ARTHRODESIS, ELBOW JOINT WITH AUTOGENOUS GRAFT (WRVU 14.32) performed by Christopher Correa MD at [facility] MAIN OR ??? PRO REMOVAL DEEP IMPLANT Right 2017 ?? REMOVAL OF IMPLANT, DEEP, ELBOW (WRVU 5.96) performed by Christopher Correa MD at [facility] MAIN OR ??? PRO REMOVAL ERUPTED TOOTH WITH ELEVATION OF MUCOPERIOSTEAL FLAP Bilateral 09/11/2019 ?? SURGICAL EXTRACTIONS REQUIRING ELEVATION OF MUCOPERIOSTEAL FLAP AND REMOVAL OF BONE OR SECTION OF TOOTH (WRVU 1.09) performed by Wesley Jacobo MD at [facility] ?? Social History: Patient lives??with [...] Total Minutes, Occupational Therapy: 16 (Schmx1) Pager: [phone] MARIE Thomas 02/18/2021 Occupational Therapy Rehabilitation Department * Jacqui Lo RN - 02/18/2021 10:13 AM EDTSumcorrine: SHANTAL Progress Note OFFICE OF CARE MANAGEMENT ?? Algebraist Follow-up Note ?? S/O: Discussed plan of [...] drainage after having ORIF on 01/21/2021 at [facility]. CT of the ankle showed LLEcellulitis with small abscess at the lateral malleolus.? Current referrals in place: 1. [facility]- ref done & order pended 2. [facility]- ref done- waiting on OPAT orders- Daptomycin daily 3. [facility]- patient will require a wound vac at discharge. Rehabilitation Medicine Physician working with Michael @ [facility] to get this approved. ?? A: Patient medical ready for discharge home with VNA and IVABX from [facility] with support of family. Patient declining to go to rehab and insists upon going home. Team is providing as much education as possible to patient to assure that she understands her needs and follows the plan for optimal recovery. ?? P:Algebraist to follow with team and family to assist with discharge needs when patient ready fordischarge. ?? Jacqui Lo RN, Algebraist Pager #[phone] * Yunior Rodriguez DO - 02/18/2021 7:39 AM EDT HOSPITAL MEDICINE ATTENDING DAY OF DISCHARGE NOTE Patient Jesenia Méndez 1960 [id number] Physician Yunior Rodriguez DO Pager: [phone] Hospitalist Encounter Date February 19, 2021 PCP Maryuri Evans MD PCP phone [phone] Discharge diagnosis Active Hospital Problems Diagnosis ? [...] of amputation if antibiotics not completed and ezl-kvwubx-cneyfoc status maintained. This risk explained to patient and father before discharge. I have personally seen and examined the patient and they are ready for discharge. I spent >30 minutes (Day of Discharge Code 60054) involved in the final examination of the patient, discussion of the hospital stay, instructions for continuing care to all relevant caregivers, and preparation of discharge records, prescriptions and referral forms. Plans Discharge to home with VNA Follow-up scheduled with Future Appointments Date Time Provider Department Center 03/02/2021 3:00 PM Aydee Franklin MD [facility] PLAS 4M [facility] 03/05/2021 4:00 PM Cyndy Moran APRN [facility] ID 5C [facility] 03/20/2021 9:00 AM Juani Miller DO [facility] ID 5C [facility] 03/20/2021 1:00 PM CAST ROOM 3A [facility] ORTH 3A [facility] 03/20/2021 1:30 PM [facility] DX ROOM 3 MH Xray [facility] Rad 03/20/2021 2:20 PM Dorina Campbell APRN [facility] ORTH [address] [place] [address] Please see the Discharge Summary for complete details of any medication changes and additional plans. Yunior Rodriguez DO Pager: [phone] February 19, 2021 9:54 PM * Rubne Damian MD - 02/18/2021 7:06 AM EDT [...] Follow-up: Pending hospital course Ruben Damian MD P.2600 Associated attestation - Sabrina Capellan MD - [...] UP NOTE Patient ID: Jesenia Méndez Room: [address] [place] [address] Active ID Issue(s): Post-op hardware infection s/p [...] a history of ORIF left ankle at [facility] on 01/21/21 complicated by skin/soft tissue infection [...] the patient today. Delfina Harris MD Page [phone] All of this 25 minute visit were spent on the floor/unit in coordination of care for the patient, regarding treatment of infection as detailed in note above. * Jacqui Lo RN - 02/17/2021 4:22 PM EDTSumcorrine: SHANTAL Progress Note OFFICE OF CARE MANAGEMENT Algebraist Follow-up Note S/O: Discussed plan of care [...] drainage after having ORIF on 01/21/2021 at [facility]. CT of the ankle showed LLE cellulitis [...] (end 03/26). Current referrals in place: 1. [facility]- ref done & order pended 2. [facility]- ref done- waiting on OPAT orders 3. [facility]- patient will require a wound vac at discharge. A: Patient nearing medical readiness for discharge home with [place] and [place]ABX from [place] with support of family. P:Algebraist to follow with team and family to assist with discharge needs when patient ready fordischarge. Jacqui Lo RN, Algebraist Pager #[phone] * Anthony Fermin MD - 02/17/2021 10:57 [...] Department of Orthopaedics 02/18/21 * Cami Ugarte, FOXING CLOSER - 02/17/2021 8:36 AM EDT Hospital Medicine [...] purulent drainageafter having ORIF on 01/21/2021 at [facility]. CT of the ankle showed LLE cellulitis [...] cellulitis and abscess: -Following recent ORIF at [facility] s/p mechanical fall w/ fracture -Reported noncompliance [...] GI prophylaxis Home ppi DVT prophylaxis Lovenox PT/OT/OLIVE BRINE TESTER PT/OT Wound Care Anticipated Disposition TBD Code Status Attempt Cardiopulmonary Resuscitation - Inpatient Team Pager ( coverage 14/03) [phone] PCP Maryuri Evans MD Family Update Family [...] seen. * Recent Labs 02/07/21 1855 02/07/21 193 BLOODCX No growth at 5 days. No [...] who have questions please contact the health personal care aid that requested your imaging first. Electronically signed by: Anthony Carrillo MD, [facility] ([phone]), at 02/07/2021 3:[address] Lower Extremity [...] who have questions please contact the health personal care aid that requested your imaging first. Electronically signed by: Meli Gonzales MD, [facility] ([phone]), at 02/07/2021 6:17 PM XR Ankle Min [...] who have questions please contact the health personal care aid that requested your imaging first. Electronically signed by: Christian Loen MD, [facility] ([phone]), at 02/14/2021 2:58 AM XR PICC Placement [...] who have questions please contact the health personal care aid that requested your imaging first. Electronically signed by: BLAZE SALEEM MD, [facility] ([phone]), at 02/14/2021 9:[address] Angiogram Lower [...] who have questions please contact the health personal care aid that requested your imaging first. Other studies/procedures: [...] Follow-up: Pending hospital course Ruben Damian MD P.[id number] Associated attestation - Sabrina Capellan MD - 02/18/2021 6:41 AM EDT Patient seen and examined. Agree with resident note. Micaela Capellan MD Department of Orthopaedics 02/18/21 * Madeline Salomno RN - 02/17/2021 6:27 AM EDT PT. [...] status LLE/RUE. Will continue to follow. Pager: [phone] MARIE Thomas 02/16/2021 Occupational Therapy Rehabilitation Department [...] ??? Psoriasis Interval History: - NPO at [facility] tonight for OR tomorrow--possible abx spacer vs [...] purulent drainageafter having ORIF on 01/21/2021 at [facility]. CT of the ankle showed LLE cellulitis [...] cellulitis and abscess: -Following recent ORIF at [facility] s/p mechanical fall w/ fracture -Reported noncompliance [...] GI prophylaxis Home ppi DVT prophylaxis Lovenox PT/OT/OLIVE BRINE TESTER PT/OT Wound Care Anticipated Disposition TBD Code Status Attempt Cardiopulmonary Resuscitation - Inpatient Team Pager ( coverage 14/03) [phone] PCP Maryuri Evans MD Family Update Family [...] who have questions please contact the health personal care aid that requested your imaging first. Electronically signed by: Anthony Carrillo MD, [facility] ([phone]), at 02/07/2021 3:[address] Lower Extremity [...] who have questions please contact the health personal care aid that requested your imaging first. Electronically signed by: Meli Gonzales MD, [facility] ([phone]), at 02/07/2021 6:17 PM XR Ankle Min [...] who have questions please contact the health personal care aid that requested your imaging first. Electronically signed by: Christian Leon MD, [facility] ([phone]), at 02/14/2021 2:58 AM XR PICC Placement [...] who have questions please contact the health personal care aid that requested your imaging first. Electronically signed by: BLAZE SALEEM MD, [facility] ([phone]), at 02/14/2021 9:22 AM Other studies/procedures: Procedure(s): [...] Follow-up: Pending hospital course Ruben Damian MD P.7562 Associated attestation - Sabrina Capellan MD - [...] consulted in the interim. EARL Campo Pager: [phone] * Adalberto Mckeon PA - 02/15/2021 2:17 [...] purulent drainageafter having ORIF on 01/21/2021 at [facility]. CT of the ankle showed LLE cellulitis [...] cellulitis and abscess: -Following recent ORIF at [facility] s/p mechanical fall w/ fracture -Reported noncompliance [...] GI prophylaxis Home ppi DVT prophylaxis Lovenox PT/OT/OLIVE BRINE TESTER PT/OT Wound Care Anticipated Disposition TBD Code Status Attempt Cardiopulmonary Resuscitation - Inpatient Team Pager ( coverage 14/03) [phone] PCP Maryuri Evans MD Family Update Family [...] 02/14/212012 CK <20 FSBG Trend: Recent Labs 02/15/21 [...] seen. * Recent Labs 02/07/21 1855 02/07/21 193 BLOODCX No growth at 5 days. No [...] who have questions please contact the health personal care aid that requested your imaging first. Electronically signed by: Anthony Carrillo MD, [facility] ([phone]), at 02/07/2021 3:[address] Lower Extremity [...] who have questions please contact the health personal care aid that requested your imaging first. Electronically signed by: Meli Gonzales MD, [facility] ([phone]), at 02/07/2021 6:17 PM XR Ankle Min [...] who have questions please contact the health personal care aid that requested your imaging first. Electronically signed by: Christian Leon MD, [facility] ([phone]), at 02/14/2021 2:58 AM XR PICC Placement [...] who have questions please contact the health personal care aid that requested your imaging first. Electronically signed by: BLAZE SALEEM MD, [facility] ([phone]), at 02/14/2021 9:22 AM Other studies/procedures: Procedure(s): [...] Follow-up: Pending hospital course Seth Yarbrough MD P.1500 Associated attestation - Sabrina Capellan MD - [...] Center 03/20/2021 1:00 PM CAST ROOM 3A [facility] ORTH 3A [facility] 03/20/2021 1:30 PM [facility] DX ROOM 3 Xray [facility] Rad 03/20/2021 2:20 PM Dorina Campbell APRN [facility] ORTH [address] [place] [address] Associated attestation - Sabrina Capellan MD - [...] new organisms identified. Micro: Abscess/Wound Aspirate Culture [[id number]] (Abnormal) Collected: 02/08/21 1030 Lab Status: Final [...] nausea when asked. Report given to SUNIL aMrie. * Adalberto Mckeon PA - 02/14/2021 2:21 [...] purulent drainageafter having ORIF on 01/21/2021 at [facility]. CT of the ankle showed LLE cellulitis with small abscess at the lateral malleolus. Plan for patient to go back to OR today for I&D and wound vac change. ID discussing appropriateness for transition to daptomycin vs. Nafcillin (in setting of MSSA & enterococcus). PICC placedyesterday due to access issues. #LLE MSSA & Enterococcus cellulitis and abscess: -Following recent ORIF at [facility] s/p mechanical fall w/ fracture -Reported noncompliance [...] GI prophylaxis Home ppi DVT prophylaxis Lovenox PT/OT/OLIVE BRINE TESTER PT/OT Wound Care Anticipated Disposition TBD Code [...] who have questions please contact the health personal care aid that requested your imaging first. Electronically signed by: Anthony Carrillo MD, [facility] ([phone]), at 02/07/2021 3:[address] Lower Extremity [...] who have questions please contact the health personal care aid that requested your imaging first. Electronically signed by: Meli Gonzales MD, [facility] ([phone]), at 02/07/2021 6:17 PM XR Ankle Min [...] who have questions please contact the health personal care aid that requested your imaging first. Electronically signed by: Christian Leon MD, [facility] ([phone]), at 02/14/2021 2:58 AM XR PICC Placement [...] who have questions please contact the health personal care aid that requested your imaging first. Electronically signed by: BLAZE SALEEM MD, [facility] ([phone]), at 02/14/2021 9:22 AM Other studies/procedures: Procedure(s): [...] to commode. Will continue to follow. Pager: [phone] MARIE Thomas 02/13/2021 Occupational Therapy Rehabilitation Department [...] purulent drainageafter having ORIF on 01/21/2021 at [facility]. CT of the ankle showed LLE cellulitis [...] cellulitis and abscess: -Following recent ORIF at [facility] s/p mechanical fall w/ fracture -Reported noncompliance [...] GI prophylaxis Home ppi DVT prophylaxis Lovenox PT/OT/OLIVE BRINE TESTER PT/OT Wound Care Anticipated Disposition TBD Code [...] who have questions please contact the health personal care aid that requested your imaging first. Electronically signed by: Anthony Carrillo MD, [facility] ([phone]), at 02/07/2021 3:[address] Lower Extremity [...] who have questions please contact the health personal care aid that requested your imaging first. Electronically signed by: Meli Gonzales MD, [facility] ([phone]), at 02/07/2021 6:17 PM Other studies/procedures: Procedure(s): DEBRIDEMENT SKIN AND SUBCU, LOWER EXTREMITY (WRVU 1.01) IMANI [place] 02/13/2021 * Jacqui Lo RN - 02/13/2021 2:01 PM EDTSumvalerioy: SHANTAL Progress Note IDR Rounds: Per provider: Patient not medically ready for discharge till next week. Patient likely to go home with IVABX and VNA services with support of family. Services: 1.?[facility] ?? PHONE: [phone] FAX: [phone] 2.[facility] ?[place] or ? 3.?Name: [employer] Tel.#: ext [phone] fax#: Equipment ordered:wound vac Transport: family A member of the Care Management team will continue to monitor progress, follow for continuity of care and assist with transition of care planning. Jacqui Lo RN, BSN, MST, ACM Algebraist pager#[phone] * Nilton Nicole MD - 02/13/2021 5:43 [...] SHANTAL Progress Note OFFICE OF CARE MANAGEMENT Algebraist Follow-up Note S/O: Discussed plan of care [...] s/p bivalve Current referrals in place: 1. [facility] PHONE: [phone] FAX: [phone] 2.[place], [place] or 3. Name: GABRIELE Tel.#:[phone] ext [phone] fax#: Equipment ordered:wound vac Rehabilitation Medicine Physician asking RS to please place referral to: [place], [place] or A: Patient is nearing medical readiness for discharge if Ortho is able to close her wound and her cultures come back negative so a PICC line can be placed for IVABX at discharge. Patient likely medically ready for discharge over the weekend. P:Algebraist to follow with team and family to assist with discharge needs when patient ready fordischarge. Jacqui Lo RN, Algebraist Pager #[phone] * Cami Ugarte, FOXING CLOSER - 02/12/2021 8:19 AM EDT Hospital Medicine [...] purulent drainageafter having ORIF on 01/21/2021 at [facility]. CT of the ankle showed LLE cellulitis [...] cellulitis and abscess: -Following recent ORIF at [facility] s/p mechanical fall w/ fracture -Reported noncompliance [...] GI prophylaxis Home ppi DVT prophylaxis Lovenox PT/OT/OLIVE BRINE TESTER PT/OT Wound Care Anticipated Disposition TBD Code [...] who have questions please contact the health personal care aid that requested your imaging first. Electronically signed by: Anthony Carrillo MD, [facility] ([phone]), at 02/07/2021 3:[address] Lower Extremity [...] who have questions please contact the health personal care aid that requested your imaging first. Other studies/procedures: [...] Center 03/20/2021 1:00 PM CAST ROOM 3A [facility] ORTH [address] [place] [address] 03/20/2021 1:30 PM [facility] DX ROOM 3 MH Xray [facility] Rad 03/20/2021 2:20 PM Dorina Campbell APRN [facility] ORTH [address] [place] [address] * Yamilex Ruiz, RETIREMENT SPECIALIST - 02/11/2021 2:33 PM EDT Physical Therapy Note Treatment Number PT: 2 Patient profile: Jesenia Méndez??is a 60 y.o.??female??with PMH significant for ID T2DM, R elbow fusion with serial casting, and L ankle fracture S/P ORIF at [facility] (01/21/21)??who presented to the ED for??RUE cast [...] Location At rest 10/01 ankle With activity 10/01 ankle Vital Signs: Stable Bed Mobility: up [...] Time in 14:18-14:28) YAMILEX RUIZ PTA Pager: [phone] Physical Therapy Inpatient Rehabilitation Department * Dali Guerrier, FOXING CLOSER - 02/11/2021 1:48 PM EDT Hospital Medicine Daily Progress Note [...] purulent drainageafter having ORIF on 01/21/2021 at [facility]. CT of the ankle showed LLE cellulitis [...] cellulitis and abscess: -Following recent ORIF at [facility] s/p mechanical fall w/ fracture -Reported noncompliance [...] GI prophylaxis Home ppr DVT prophylaxis Lovenox PT/OT/OLIVE BRINE TESTER PT/OT Wound Care Anticipated Disposition TBD Code Status Attempt Cardiopulmonary Resuscitation - Inpatient Team Pager ( coverage 14/03) [phone] PCP Maryuri Evans MD Family Update Family [...] who have questions please contact the health personal care aid that requested your imaging first. Electronically signed by: Anthony Carrillo MD, [facility] ([phone]), at 02/07/2021 3:[address] Lower Extremity [...] who have questions please contact the health personal care aid that requested your imaging first. Electronically signed by: Meli Gonzales MD, [facility] ([phone]), at 02/07/2021 6:17 PM Other studies/procedures: Procedure(s): [...] and L ankle fracture S/P ORIF at [facility] (01/21/21)??who presented to the ED for??RUE cast [...] 4.06) performed by Wesley Jacobo MD at [facility] O[facility] ? ? PRO DEBRIDEMENT SUBCUTANEOUS TISSUE 20 SQCM/< Left 02/08/2021 ?? DEBRIDEMENT SKIN AND SUBCU, LOWER EXTREMITY (WRVU 1.01) performed by Henrry Quiñones MD at [facility] MAIN OR ??? PRO FUSION/GRAFT OF ELBOW JOINT Right 2017 ?? ARTHRODESIS, ELBOW JOINT WITH AUTOGENOUS GRAFT (WRVU 14.32) performed by Christopher Correa MD at [facility] MAIN OR ??? PRO REMOVAL DEEP IMPLANT Right 2017 ?? REMOVAL OF IMPLANT, DEEP, ELBOW (WRVU 5.96) performed by Christopher Correa MD at [facility] MAIN OR ??? PRO REMOVAL ERUPTED TOOTH WITH ELEVATION OF MUCOPERIOSTEAL FLAP Bilateral 09/11/2019 ?? SURGICAL EXTRACTIONS REQUIRING ELEVATION OF MUCOPERIOSTEAL FLAP AND REMOVAL OF BONE OR SECTION OF TOOTH (WRVU 1.09) performed by Wesley Jacobo MD at [facility] Social History: Patient lives with [...] rehabilitation facility (vs home with home health 24/ssist) ?? Daily schedule / Staff Recommendations: Utilize [...] Total Minutes, Occupational Therapy: 30 (Schmx2) Pager: [phone] MARIE Thomas 02/11/2021 Occupational Therapy Rehabilitation Department * Nilton Nicole MD - 02/11/2021 5:54 AM EDT [facility] SURGERY INPATIENT PROGRESS NOTE Patient Name: Jesenia [...] Intake/Output Summary (Last 24 hours) at 02/11/2021 0508 Last data filed at 02/11/2021 0325 Gross [...] Center 03/20/2021 1:00 PM CAST ROOM 3A [facility] ORTH 3A [facility] 03/20/2021 1:30 PM [facility] DX ROOM 3 MH Xray [facility] Rad 03/20/2021 2:20 PM Dorina Campbell APRN [facility] ORTH 3A [facility] * Dali Guerrier APRN - 02/10/2021 3:40 [...] purulent drainageafter having ORIF on 01/21/2021 at [facility]. CT of the ankle showed LLE cellulitis [...] cellulitis and abscess: -Following recent ORIF at [facility] s/p mechanical fall w/ fracture -Reported noncompliance [...] GI prophylaxis Home ppr DVT prophylaxis Lovenox PT/OT/OLIVE BRINE TESTER PT/OT Wound Care Anticipated Disposition TBD Code [...] who have questions please contact the health personal care aid that requested your imaging first. Electronically signed by: Anthony Carrillo MD, [facility] ([phone]), at 02/07/2021 3:[address] Lower Extremity [...] who have questions please contact the health personal care aid that requested your imaging first. Electronically signed by: Meli Gonzales MD, [facility] ([phone]), at 02/07/2021 6:17 PM Other studies/procedures: Procedure(s): DEBRIDEMENT SKIN AND SUBCU, LOWER EXTREMITY (WRVU 1.01) Dali Guerrier APRN 02/10/2021 * Toño Odonnell MD - 02/10/2021 3:37 PM EDT [facility] SURGERY INPATIENT PROGRESS NOTE Patient Name: Jesenia [...] Center 03/20/2021 1:00 PM CAST ROOM 3A [facility] [address] [place] [address] 03/20/2021 1:30 PM [facility] DX ROOM 3 Xray [facility] Rad 03/20/2021 2:20 PM Dorina Campbell APRN [facility] [address] [place] [address] * Jacqui Lo RN - 02/10/2021 3:27 PM EDTSummary: SHANTAL Progress Note OFFICE OF CARE MANAGEMENT Algebraist Follow-up Note S/O: Discussed plan of care [...] w/ possible closure, please keep NPO. 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 A letter describing our affiliations was reviewed with them and they were educated about their right to choose where referrals are placed. Patient requests referral to: 1. [email or web address] PHONE: [phone] FAX: [phone] 2.[place], [place] or 3. Name: GABRIELE Tel.#: ext [phone] fax#: Equipment ordered:wound vac Expected date of discharge: 02/13?. Referral routed to the Cash Management Coordinator for matching with agency/vendor and to provide any required information. Patient lives with her father, son, DIL so she has someone available to assist her. Patient states that there is plenty of people to help her. A: Patient not medically ready for discharge. P:Algebraist to follow with team and family to assist with discharge needs when patient ready fordischarge. Jacqui Lo RN, Algebraist Pager #[phone] * Christy Huang RN - 02/10/2021 10:49 [...] appropriate/able. Delfina Marr, OTR/L Inpatient Rehab Pager: [phone] * Seth Yarbrough MD - 02/10/2021 5:54 [...] Center 03/20/2021 1:00 PM CAST ROOM 3A [facility] [address] [place] [address] 03/20/2021 1:30 PM MH DX ROOM 3 MH Xray [facility] Rad 03/20/2021 2:20 PM Dorina Campbell, FOXING CLOSER [facility] [address] [place] [address] * Anita Sosa RN - 02/10/2021 5:38 [...] CPG GOAL OUTCOME EVALUATION: * Dali Guerrier, FOXING CLOSER - 02/09/2021 2:39 PM EDT Hospital Medicine [...] purulent drainageafter having ORIF on 01/21/2021 at [facility]. CT of the ankle showed LLE cellulitis with small abscess at the lateral malleolus. OR planned for 02/10. Patient continues with wound vac to RLE. She endorses some increasing pain wound vac site. Pain relieved with PRN oxycodone. Patient remains hemodynamically stable. Continues on vancomycin. ?? #LLE cellulitis and abscess: -Following recent ORIF at [facility] s/p mechanical fall w/ fracture -Reported noncompliance [...] GI prophylaxis Home ppr DVT prophylaxis Lovenox PT/OT/OLIVE BRINE TESTER PT/OT Wound Care Anticipated Disposition TBD Code [...] who have questions please contact the health personal care aid that requested your imaging first. Electronically signed by: Anthony Carrillo MD, [facility] ([phone]), at 02/07/2021 3:[address] Lower Extremity [...] who have questions please contact the health personal care aid that requested your imaging first. Electronically signed by: Meli Gonzales MD, [facility] ([phone]), at 02/07/2021 6:17 PM Other studies/procedures: Procedure(s): [...] of two midnights or is on the [facility] inpatient only procedure list (status C) due [...] and L ankle fracture S/P ORIF at [facility] (01/21/21) who presented to the ED for [...] 4.06) performed by Wesley Jacobo MD at [facility] ? ? PRO DEBRIDEMENT SUBCUTANEOUS TISSUE 20 SQCM/< Left 02/08/2021 DEBRIDEMENT SKIN AND SUBCU, LOWER EXTREMITY (WRVU 1.01) [facility] ??? PRO FUSION/GRAFT OF ELBOW JOINT Right 2017 ARTHRODESIS, ELBOW JOINT WITH AUTOGENOUS GRAFT (WRVU 14.32) performed by Christopher Correa MD at [facility] MAIN OR ??? PRO REMOVAL DEEP IMPLANT Right 2017 REMOVAL OF IMPLANT, DEEP, ELBOW (WRVU 5.96) performed by Christopher Correa MD at [facility] MAIN OR ??? PRO REMOVAL ERUPTED TOOTH WITH ELEVATION OF MUCOPERIOSTEAL FLAP Bilateral 09/11/2019 SURGICAL EXTRACTIONS REQUIRING ELEVATION OF MUCOPERIOSTEAL FLAP AND REMOVAL OF BONE OR SECTION OF TOOTH (WRVU 1.09) performed by Wesley Jacobo MD at [facility] Social History: Lives with her [...] evaluation and TEF CLEMENTINE SANCHEZ, PT Pager: [phone] Physical Therapy Inpatient Rehabilitation Department * Nilton [...] Center 03/20/2021 1:00 PM CAST ROOM 3A [facility] 3A [facility] 03/20/2021 1:30 PM [facility] DX ROOM 3 Xray [facility] Rad 03/20/2021 2:20 PM Dorina Campbell APRN [address] * Toño Odonnell MD - 02/08/2021 [...] Center 03/20/2021 1:00 PM CAST ROOM 3A [facility] 3A [facility] 03/20/2021 1:30 PM [facility] DX ROOM 3 MH Xray [facility] Rad 03/20/2021 2:20 PM Dorina Campbell APRN [facility] [address] [place] [address] * Selina Ramirez RN - 02/08/2021 1:57 PM EDTSummary: [facility] OCM: VNA/vendor choice 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 Patient lives in [facility] covered only by [facility]. She had been referred to this agency in the past. There would be no other VNA choices. N/A: A letter describing our affiliations was reviewed with them and they were educated about theirright to choose where referrals are placed. Discussed [facility] Star Quality Rating for Home care report. Patient requests referral to [facility] [employer] PHONE: [phone] FAX: [phone]. Expected date of discharge: 3-5 days. Referral routed to the Cash Management Coordinator for matching with agency/vendor and to provide any required information. Selina Ramirez [facility] robotics engineer Pager: [phone] * Ingrid Yañez RN - 02/08/2021 10:48 [...] to RN on 1W. * Cami Ugarte, FOXING CLOSER - 02/08/2021 7:39 AM EDT [facility] Progress Note Admit Date: [...] purulent drainageafter having ORIF on 01/21/2021 at [facility]. CT of the ankle showed LLE cellulitis [...] cellulitis and abscess: -Following recent ORIF at [facility] s/p mechanical fall w/ fracture -Reported noncompliance [...] GI prophylaxis Home ppr DVT prophylaxis Lovenox PT/OT/OLIVE BRINE TESTER PT/OT Wound Care Anticipated Disposition TBD Code Status Attempt Cardiopulmonary Resuscitation - Inpatient Team Pager (MD coverage 14/03) [phone] PCP Maryuri Evans MD Family Update Family [...] who have questions please contact the health personal care aid that requested your imaging first. Electronically signed by: Anthony Carrillo MD, [facility] ([phone]), at 02/07/2021 3:[address] Lower Extremity [...] who have questions please contact the health personal care aid that requested your imaging first. Electronically signed by: Meli Gonzales MD, [facility] ([phone]), at 02/07/2021 6:17 PM Other studies/procedures: Procedure(s): [...] of two midnights or is on the [facility] inpatient only procedure list (status C) due [...] ground level mechanical falls who presented to [facility] ED from home with drainage from LT [...] Center 03/20/2021 1:00 PM CAST ROOM 3A [facility] ORTH 3A [facility] 03/20/2021 1:30 PM [facility] DX ROOM 3 MH Xray [facility] Rad 03/20/2021 2:20 PM Dorina Campbell APRN [facility] [address] [place] [address] Associated attestation - Henrry Quiñones MD - [...] Psoriasis ID: 60 y.o. Female presents to [facility] with left ankle pain and drainage. History of Present Illness: STEVO Méndez is a 60 y.o. female with past medical history of diabetes, hypothyroidism, depression, psoriasis, chronic headaches, presenting with complaints of left ankle swelling, pain and purulent drainage. Ms Méndez recently underwent open reduction and internal fixation on January 21, 2021 at [facility] for left ankle fracture that [...] plate, and had cast exchange done at [facility] Ortho clinic yesterday. She reported that [...] 4.06) performed by Wesley Jacobo MD at [facility] ??? PRO FUSION/GRAFT OF ELBOW JOINT Right 2017 ARTHRODESIS, ELBOW JOINT WITH AUTOGENOUS GRAFT (WRVU 14.32) performed by Christopher Correa MD at [facility] MAIN OR ??? PRO REMOVAL DEEP IMPLANT Right 2017 REMOVAL OF IMPLANT, DEEP, ELBOW (WRVU 5.96) performed by Christopher Correa MD at [facility] MAIN OR ??? PRO REMOVAL ERUPTED TOOTH WITH ELEVATION OF MUCOPERIOSTEAL FLAP Bilateral 09/11/2019 SURGICAL EXTRACTIONS REQUIRING ELEVATION OF MUCOPERIOSTEAL FLAP AND REMOVAL OF BONE OR SECTION OF TOOTH [facility]) performed by Wesley Jacobo MD at [facility] Prior To Admission Medications: (Not [...] who have questions please contact the health personal care aid that requested your imaging first. Electronically signed by: Anthony Carrillo MD, [facility] ([phone]), at 02/07/2021 3:[address] Lower Extremity [...] who have questions please contact the health personal care aid that requested your imaging first. Electronically signed by: Meli Gonzales MD, [facility] ([phone]), at 02/07/2021 6:17 PM Other Studies: None Assessment: 60 y.o. female with past medical history of diabetes, hypothyroidism, depression, psoriasis, chronic headaches, presenting with complaints of left ankle swelling, pain, erythema and purulent drainageafter having ORIF on 01/21/2021 at [facility]. CT of the ankle showed LLE cellulitis [...] to the planned procedure. Hand Hygiene: The circulation sales representative did perform hand hygiene prior to line insertion. Catheter type: PICC Lot number: [id number] Procedure Technique: Skin was prepped with chlorhexidine. [...] and L ankle fracture S/P ORIF at [facility] (01/21/21) who presented to the ED for [...] fracture performed 01/21 by orthopedic surgery at [facility]. She notes that she has also had intermittent chills but has not taken her temperature. Overall she has been very unhappy with her care at [facility] notes that they dismissed her concerns about an infection and suggested she was narcotic seeking. She would like to transfer all her orthopedic care to [facility] for this reason. Denies any lightheadedness, nausea, [...] who have questions please contact the health personal care aid that requested your imaging first. Ankle Min [...] who have questions please contact the health personal care aid that requested your imaging first. Electronically signed by: Anthony Carrillo MD, [facility] ([phone]), at 02/07/2021 3:44 PM ASSESSMENT & PLAN MDM: Jesenia Méndez is a 60 y.o. female with PMH significant for ID T2DM, R elbow fusion with serial casting, and L ankle fracture S/P ORIF at [facility] (01/21/21) who presented to the ED for [...] Ambulating Ax1 w/ FWW stand pivot to [facility]. PLAN MOVING FORWARD: Monitor VS, labs, I/O's [...] drainage after having ORIF on 01/21/2021 at [facility]. CT of the ankle showed LLE cellulitis [...] who have questions please contact the health personal care aid that requested your imaging first. Electronically signed by: Anthony Carrillo MD, [facility] ([phone]), at 02/07/2021 3:[address] Lower Extremity [...] who have questions please contact the health personal care aid that requested your imaging first. Electronically signed by: Meli Gonzales MD, [facility] ([phone]), at 02/07/2021 6:17 PM XR Ankle Min [...] who have questions please contact the health personal care aid that requested your imaging first. Electronically signed by: Christian Leon MD, [facility] ([phone]), at 02/14/2021 2:58 AM XR PICC Placement [...] who have questions please contact the health personal care aid that requested your imaging first. Electronically signed by: BLAZE SALEEM MD, [facility] ([phone]), at 02/14/2021 9:[address] Angiogram Lower [...] who have questions please contact the health personal care aid that requested your imaging first. Assessment: 60 y.o.??female??with L ankle wound s/p L ankle hardware removal and washouts with ortho for LLE cellulitis and abscess following ORIF on 01/21/2021 at [facility]. Recommendations: Plan for soft tissue coverage pending discussion with Dr. Franklin. Tentatively scheduling about two weeks from now. oCrina Medrano MD 02/17/2021 11:50 AM Thank you for this consult. Please do not hesitate to page [phone] if you have any questions or concerns. [...] EVALUATION: * Plan of Care - Cynthia Taedo RN - 02/16/2021 2:53 PM EDT OUTCOME [...] Keith MD - 02/14/2021 4:22 PM EDT [facility] Operative Note Patient Name: Jesenia Méndez : [id number] MR#: [id number] Case Date: 02/14/2021 Surgeon: Surgeon(s) and Role: [...] planned surgery, and site according to the [facility] [place] Protocol. 1 black sponge and white what [...] (PICC) Teaching Sheet Peripherally inserted central catheters ([id number]) (PICC) are used when you need IV [...] midline catheter? PICC lines are used for oysterman treatments. PICC lines may be used for [...] can be set up via the nurse Algebraist to help you. What are possible complications [...] Vascular Access Device Selection, Insertion, and Management, [employer] 05/26. A Review of the Efficacy, Safety, Use, and Administration of [employer], [employer] 2005 * Plan of Care - [...] Operative Note Patient Name: Jesenia Méndez : [id number] MR#: [id number] Case Date: 02/12/2021 Surgeon: Surgeon(s) and Role: [...] Odonnell MD - 02/12/2021 4:55 PM EDT [facility] Operative Note Patient Name: Jesenia Méndez : [id number] MR#: [id number] Case Date: 02/12/2021 Surgeon: Surgeon(s) and Role: [...] with one black sponge. The wound measured [id number]. The patient was then placed in a [...] I&D. She underwent ORIF left ankle at [facility] on 01/21/21 a day after she [...] Yarbrough MD - 02/10/2021 10:02 AM EDT [facility] Operative Note Patient Name: Jesenia Méndez : [id number] MR#: [id number] Case Date: 02/10/2021 Surgeon: Surgeon(s) and Role: * Jacobo De La Cruz MD - Primary * Seth Yarbrough MD - Resident Preoperative diagnosis: Left ankle infection Postoperative diagnosis: Left ankle infection Procedure: 1) Debridement Skin, subq, muscle, bone - 83943 Findings: Gross purulence under pressure distal to [...] and L ankle fracture S/P ORIF at [facility] (01/21/21)??who presented to the ED for??RUE cast [...] 4.06) performed by Wesley Jacobo MD at [facility] ? ? PRO DEBRIDEMENT SUBCUTANEOUS TISSUE 20 SQCM/< Left 02/08/2021 DEBRIDEMENT SKIN AND SUBCU, LOWER EXTREMITY (WRVU 1.01) [facility] ??? PRO FUSION/GRAFT OF ELBOW JOINT Right 2017 ARTHRODESIS, ELBOW JOINT WITH AUTOGENOUS GRAFT (WRVU 14.32) performed by Christopher Correa MD at [facility] OR ??? PRO REMOVAL DEEP IMPLANT Right 2017 REMOVAL OF IMPLANT, DEEP, ELBOW (WRVU 5.96) performed by Christopher Correa MD at [facility] OR ??? PRO REMOVAL ERUPTED TOOTH WITH ELEVATION OF MUCOPERIOSTEAL FLAP Bilateral 09/11/2019 SURGICAL EXTRACTIONS REQUIRING ELEVATION OF MUCOPERIOSTEAL FLAP AND REMOVAL OF BONE OR SECTION OF TOOTH (WRVU 1.09) performed by Wesley Jacobo MD at [facility] Social History: Patient lives with [...] precautions Vision & Perception: ?? corrective lenses retail marketing coordinator Communication: WFL Range of motion, strength, [...] is between inpatient rehab vs home with AUTOMOTIVE TECHNOLOGY INSTRUCTOR & 24/7 support/assistance - pending pt progress during her inpatient hospitalization. Equipment needs at discharge: TBD Anticipated Discharge Disposition (OT): inpatient rehabilitation facility (vs home with AUTOMOTIVE TECHNOLOGY INSTRUCTOR & 24/7 support/assistance ) Other Recommendations: ?? [...] and measurable assessment of functional outcome. Pager: [phone] Delfina Marr, OTR/L 02/09/2021 Occupational Therapy Rehabilitation [...] EVALUATION: * Consult Note - Yani Cheng [facility] - 02/08/2021 11:15 PM EDT Clinical Pharmacist Note - NicholasFD Jesenia Méndez [id number] Jesenia Méndez is a 60 y.o. [...] Alternately,during off-hours (9p-) you may call [phone] to contact a pharmacist. Yani Cheng RPH [...] ankle erythema, drainage status post ORIF at [facility] Introduced self/reviewed role; services accepted. Patient had received pain medication and was Reason for Hospitalization: pain Last COVID test: not tested Past medical History: History reviewed. No pertinent past medical history. S/P ORIF left ankle fracture 01/21/2021 at [facility]; fracture sustained 01/11/2021 Active Non-Hospital Problems ?? Diagnosis ??? H/O insulin dependent diabetes mellitus ??? H/O: depression ??? Hypothyroidism ??? h/o chronic headaches ??? Closed fracture of shaft of right ulna with known elbow arthrodesis RIGHT ??? Chronic pain in left shoulder ??? S/P R elbow fusion on 12/14/17 Correa ??? Psoriasis ?? Hospitalizations Within the Past 30 Days: [facility] 01/21/2021 Current Decision-Making Capacity: Self Advance Care Planning: Attempt Cardiopulmonary Resuscitation - Inpatient <no information> -Advanced Directive: No, need to discuss (father Jacobo Méndez is surrogate healthcare decision-maker) If AD's have not been completed father Jacobo Méndez would be surrogate decision maker per [place] surrogate decision making law. (Only good for 90 days) Any patient receiving care at [facility] must abide by [place] law. The hierarchy for surrogate decision making [...] (i) The agent with financial power of civil rights attorney or a conservator appointed in accordance [...] in [place] 02/08/2021 Home Address listed as: [facility] [address] [facility] [address] Social & Family Supports: All names listed below confirmed with patient as current and correct Extended Emergency Contact Information Primary Emergency Contact: Jacobo Méndez Address: [place] [address] [facility] Mobile Relation: Father Current Care Provided [...] Insurance: N/A Prescription Coverage: Yes Preferred Pharmacy: [facility] [address] [address] Status: Patient is a : unable to assess (most likely not but did not confirm) Primary Care Provider: Maryuri Evans MD [phone] Patient/Caregiver Goals of Treatment: healing of L ankle without complication Potential Needs for Transition of Care: Additional help at home VNA referral Home wound VAC Agency Referrals: The patient/caregivers were provided with a list of homecare agencies which servetheir preferred geographic location and they were educated about their right to choose where referrals are placed. Patient/Caregiver requests referral to homecare agencies. [facility] PHONE: [phone] FAX: [phone] NB: Patient had a referral placed following [facility] encounter but was not seen; reason unknown. Transportation: private vehicle v [place] Medicaid transportation Transportation Anticipated: yes, may need assistance from [facility] OCM care team for ride Concerns to [...] towards recovery. She was discharged home from [facility]. VNA referral routed to OCM Cash Management Coordinator. Notify OCM RNCM regarding possible wound vac [...] transition of care planning. Selina Ramirez RNCM [facility] w/e robotics engineer Pager: [phone] * Op Note - Yani Dumas MD - 02/08/2021 11:30 AM EDT [facility] Operative Note Patient Name: Jesenia Méndez : [id number] MR#: [id number] Case Date: 02/08/2021 Surgeon: Surgeon(s) and Role: [...] [facility]. She presented to the [facility] emergency department with a symptomatic cast which [...] A timeout was held in accordance with [facility] policy verifying the patient's name, date of [...] Operative Note Patient Name: Jesenia Méndez : [id number] MR#: [id number] Case Date: 02/08/2021 Surgeon: Surgeon(s) and Role: [...] ankle erythema, drainage status post ORIF at [facility] HPI: Jesenia Méndez is a 60 y.o. [...] open reduction internal fixation on 01/21/2021 at [facility]. She reports drainage persistently ever [...] data in the 24 hours ending 02/07/21 3871 Body mass index is 33.47 kg/m??. PHYSICAL [...] left ankle fracture performed on 01/21/2021 at [facility] (Dr. Henson). Patient has persistent drainage as [...] evaluation and treatment. Please page Orthopaedic consults [phone] with any questions or concerns. ?? Trudi Vann MD P. [phone] 02/07/21 5:34 PM Future Appointments Date Time Provider Department Center 03/20/2021 1:00 PM CAST ROOM 3A [facility] ORTH 3A [facility] 03/20/2021 1:30 PM [facility] DX ROOM 3 Xray [facility] Rad 03/20/2021 2:20 PM Dorina Campbell APRN [facility] ORTH [address] [place] [address] Addendum: Patient seen and examined again following [...] internal fixation for this on 01/21/2021 at [facility]. With regard to her arm she did [...] POCT GLUCOSE Routine 02/14/2021 4:57 PM EDT [facility] VANCOMYCIN Timed 02/14/2021 2:50 PM EDT [...] ankle postop wound Debridement, Skin, Sub-Q Tissue (25129) 02/12/2021 4:48 PM EDT left ankle postop [...] (ABNORMAL) POCT Glucose (02/18/2021 3:53 PM EDT) Glucose, POC 234(H) 65 - 199 mg/dL [facility] Comment: Supplemental ranges: <140 mg/dL before meals <180 mg/dL all other times of the day Blood 02/18/2021 3:53 PM EDT 02/18/2021 3:53 PM EDT Yunior Rodriguez DO POINT OF CARE TEST O RDERABLES Performing Organization Address [facility] Co de Phone Number [facility] [place] [address] * POCT Glucose (02/18/2021 11:17 AM EDT) Glucose, POC 181 65 - 199 mg/dL [facility] Comment: Supplemental ranges: <140 mg/dL before meals <180 mg/dL all other times of the day Blood 02/18/2021 11:1 7 AM EDT 02/18/2021 11:17 AM EDT Yunior Rodriguez DO POINT OF CARE TEST O VIKKI Performing Organization Address [facility] Co de Phone Number [facility] [place] [address] * (ABNORMAL) Hepatic Function Panel (02/18/2021 10:35 [...] Agency Comment Spec In Lab Cami Ugarte [employer]ING [employer]OSER CHEMISTRY ORDERABLES Performing Organization Address [facility] Co de Phone Number [facility] [place] [address] * (ABNORMAL) POCT Glucose (02/18/2021 8:35 AM EDT) [facility] Glucose, POC 225(H) 65 - 199 mg/dL [facility] Comment: Supplemental ranges: <140 mg/dL before meals <180 mg/dL all other times of the day Blood 02/18/2021 8:35 AM EDT 02/18/2021 8:35 AM EDT Yunior Rodriguez DO POINT OF CARE TEST O RDERABLES Performing Organization Address [facility] Co de Phone Number [facility] [place] [address] * (ABNORMAL) CRP, acute inflammation (02/18/2021 6:10 AM EDT) [facility] C-Reactive Protein 29.1(H) <=4.9 mg/L [facility] Blood Venous Draw / Unknown 02/18/2021 6:10 AM EDT 02/18/2021 6:35 AM EDT Narrative Resulting Agency Comment Spec In Lab Cami Ugarte [employer] CHEMISTRY ORDERABLES Performing Organization Address [facility] Co de Phone Number [facility] [place] [address] * (ABNORMAL) Differential, Automated (02/18/2021 6:10 AM EDT) [facility] Neutrophil % 73.3 % [facility] Neutrophil Absolute 6.98(H) 1.70 - 6.10 x10(3)/mc L [facility] Lymph % 18.8 % [facility] Lymphocytes Abs 1.8 0.9 - 3.2 x10(3)/[facility] Monocyte % 4.8 % [facility] Monocyte Abs 0.5 0.3 - 0.9 x10(3)/[facility] Eos % 1.9 % [facility] Eosinophils Abs 0.2 0.0 - 0.4 x10(3)/[facility] Basophil % 0.4 % [facility] Baso Absolute 0.0 0.0 - 0.1 x10(3)/[facility] Immature Gran % 0.80 % [facility] Comment: Immature granulocytes(IG's)percentage and absolute count will include metamyelocytes, myelocytes, and promyelocytes. Blood smears from CBCs yielding IG's will be scanned manually for concordance. If this scan disagrees with the automated IG or if promyelocytes are noted, a manual differential will be performed. Immature Gran Absolute 0.08(H) 0.00 - 0.04 x10(3)/[facility] Blood 02/18/2021 6:10 AM EDT 02/18/2021 6:30 AM EDT Narrative Resulting Agency Comment Spec In Lab Cami Ugarte [employer] HEMATOLOGY ORDERABLE S [facility] [place] [address] * (ABNORMAL) Hemogram (02/18/2021 6:10 AM EDT) White Blood Cell 9.5 4.0 - 9.5 x10(3)/[facility] Red Blood Cell 3.64(L) 4.00 - 5.21 x10(6)/[facility] Hemoglobin 10.5(L) 11.7 - 15.5 gm/dL [...] Standard Deviation 45.1 37.0 - 46.0 fL [facility] RDW coefficient of variation 14.1 11.5 - 14.1 % [facility] Mean Platelet Volume 10.5 7.6 - 12.9 fL [facility] NRBC% auto 0.0 % [facility] NRBC Absolute 0.000 0.000 - 0.000 x10(3)/mc L [facility] Blood 02/18/2021 6:10 AM EDT 02/18/2021 6:30 AM EDT Narrative Resulting Agency Comment Spec In Lab Cami Ugarte [employer]ING [employer]OSER HEMATOLOGY ORDERABLE S [facility] [place] [address] * Phosphorus (02/18/2021 6:10 AM EDT) Phosphorus 3.4 2.5 - 4.5 mg/dL [facility] Blood 02/18/2021 6:10 AM EDT 02/18/2021 6:30 AM EDT Narrative Resulting Agency Comment Spec In Lab Cami Ugarte [employer] CHEMISTRY ORDERABLES [facility] [place] [address] * Magnesium (02/18/2021 6:10 AM EDT) Magnesium 0.96 0.69 - 1.07 mmol/L [facility] Blood 02/18/2021 6:10 AM EDT 02/18/2021 6:30 AM EDT Narrative Resulting Agency Comment Spec In Lab Cami M Torito BALBUENA CHEMISTRY ORDERABLES [facility] [place] [address] * (ABNORMAL) Basic Metabolic Panel (non-fasting) (02/18/2021 [...] Ugarte APRN CHEMISTRY ORDERABLES Performing Organization Address [facility] Co de Phone Number [facility] [place] [address] * (ABNORMAL) POCT Glucose (02/17/2021 11:44 PM EDT) Glucose, POC 202(H) 65 - 199 mg/dL [facility] Comment: Supplemental ranges: <140 mg/dL before meals <180 mg/dL all other times of the day Blood 02/17/2021 11:4 4 PM EDT 02/17/2021 11:44 PM EDT Yunior Rodriguez DO POINT OF CARE TEST O RDERABLES Performing Organization Address [facility] Co de Phone Number [facility] [place] [address] * POCT Glucose (02/17/2021 8:09 PM EDT) Glucose, POC 142 65 - 199 mg/dL [facility] Comment: Supplemental ranges: <140 mg/dL before meals <180 mg/dL all other times of the day Blood 02/17/2021 8:09 PM EDT 02/17/2021 8:09 PM EDT Yunior Rodriguez DO POINT OF CARE TEST O RDERABLES Performing Organization Address City/[facility] Co de Phone Number [facility] [place] [address] * POCT Glucose (02/17/2021 4:21 PM EDT) Glucose, POC 191 65 - 199 mg/dL [facility] Comment: Supplemental ranges: <140 mg/dL before meals <180 mg/dL all other times of the day Blood 02/17/2021 4:21 PM EDT 02/17/2021 4:21 PM EDT Yunior Rodriguez DO POINT OF CARE TEST O RDERABLES Performing Organization Address [facility]/ZIP Co de Phone Number [facility] [place] [address] * POCT Glucose (02/17/2021 12:00 PM EDT) Glucose, POC 155 65 - 199 mg/dL [facility] Comment: Supplemental ranges: <140 mg/dL before meals <180 mg/dL all other times of the day Blood 02/17/2021 12:0 0 PM EDT 02/17/2021 12:00 PM EDT Yunior Rodriguez DO POINT OF CARE TEST O RDERABLES Performing Organization Address [facility] Co de Phone Number [facility] [place] [address] * (ABNORMAL) POCT Glucose (02/17/2021 8:36 AM EDT) Glucose, POC 239(H) 65 - 199 mg/dL [facility] Comment: Supplemental ranges: <140 mg/dL before meals <180 mg/dL all other times of the day Blood 02/17/2021 8:36 AM EDT 02/17/2021 8:36 AM EDT Yunior Rodriguez DO POINT OF CARE TEST O RDERABLES Performing Organization Address [facility] Co de Phone Number [facility] [place] [address] * (ABNORMAL) Differential, Automated (02/17/2021 4:10 AM EDT) Neutrophil % 69.5 % [facility] Neutrophil Absolute 6.21(H) 1.70 - 6.10 x10(3)/mc L [facility] Lymph % 20.8 % [facility] Lymphocytes Abs 1.9 0.9 - 3.2 x10(3)/ L [facility] Monocyte % 5.9 % [facility] Monocyte Abs 0.5 0.3 - 0.9 x10(3)/ L [facility] Eos % 1.7 % [facility] Eosinophils Abs 0.2 0.0 - 0.4 x10(3)/[facility] Basophil % 0.4 % [facility] Baso Absolute 0.0 0.0 - 0.1 x10(3)/[facility] Immature Gran % 1.70 % [facility] Comment: Immature granulocytes(IG's)percentage and absolute count will include metamyelocytes, myelocytes, and promyelocytes. Blood smears from CBCs yielding IG's will be scanned manually for concordance. If this scan disagrees with the automated IG or if promyelocytes are noted, a manual differential will be performed. Immature Gran Absolute 0.15(H) 0.00 - 0.04 x10(3)/[facility] Blood 02/17/2021 4:10 AM EDT 02/17/2021 4:19 AM EDT Narrative Resulting Agency Comment Spec In Lab Cami Ugarte [employer] HEMATOLOGY ORDERABLE S Performing Organization Address City/State/[facility] Co de Phone Number [facility] [place] [address] * (ABNORMAL) Hemogram (02/17/2021 4:10 AM EDT) White Blood Cell 8.9 4.0 - 9.5 x10(3)/[facility] Red Blood Cell 3.44(L) 4.00 - 5.21 x10(6)/[facility] Hemoglobin 10.0(L) 11.7 - 15.5 gm/dL [facility] Hematocrit 30.9(L) 35.7 - 45.8 % [facility] Mean Cell Volume 89.8 82.6 - 94.4 fL [facility] Mean Cell Hemoglobin 29.1 27.1 - 32.0 pg [facility] Mean Cell Hemoglobin Concentration 32.4 31.7 - 35.0 gm/dL [facility] Platelet 305 145 - 357 x10(3)/mc L [facility] RDW Standard Deviation 44.1 37.0 - 46.0 [facility] RDW coefficient of variation 13.8 11.5 - 14.1 % [facility] Mean Platelet Volume 10.5 7.6 - 12.9 [facility] NRBC% auto 0.0 % [facility] NRBC Absolute 0.000 0.000 - 0.000 x10(3)/mc L [facility] Blood 02/17/2021 4:10 AM EDT 02/17/2021 4:19 AM EDT Narrative Resulting Agency Comment Spec In Lab Cami Ugarte [employer] HEMATOLOGY ORDERABLE S Performing Organization Address City/[facility] Co de Phone Number [facility] [place] [address] * Phosphorus (02/17/2021 4:10 AM EDT) Phosphorus 3.0 2.5 - 4.5 mg/dL [facility] Blood 02/17/2021 4:10 AM EDT 02/17/2021 4:19 AM EDT Narrative Resulting Agency Comment Spec In Lab Cami Ugarte [employer] CHEMISTRY ORDERABLES Performing Organization Address [facility] Co de Phone Number [facility] [place] [address] * Magnesium (02/17/2021 4:10 AM EDT) Magnesium 0.91 0.69 - 1.07 mmol/L [facility] Blood 02/17/2021 4:10 AM EDT 02/17/2021 4:19 AM EDT Narrative Resulting Agency Comment Spec In Lab Cami Ugarte SREE CHEMISTRY ORDERABLES [facility] [place] [address] * (ABNORMAL) Basic Metabolic Panel (non-fasting) (02/17/2021 [...] Ugarte APRN CHEMISTRY ORDERABLES Performing Organization Address [facility] Co de Phone Number [facility] [place] [address] * CK (02/17/2021 4:10 AM EDT) Creatine Kinase <20 0 - 160 unit/L [facility] Blood 02/17/2021 4:10 AM EDT 02/17/2021 4:19 AM EDT Narrative Resulting Agency Comment Spec In Lab Yunior Rodriguez DO CHEMISTRY ORDERABLES Performing Organization Address [facility] de Phone Number [facility] [place] [address] * POCT Glucose (02/16/2021 7:33 PM EDT) Glucose, POC 172 65 - 199 mg/dL [facility] Comment: Supplemental ranges: <140 mg/dL before meals <180 mg/dL all other times of the day Blood 02/16/2021 7:33 PM EDT 02/16/2021 7:33 PM EDT Yunior Rodriguez DO POINT OF CARE TEST O RDERABLES Performing Organization Address [facility] Co de Phone Number [facility] [place] [address] * POCT Glucose (02/16/2021 4:11 PM EDT) Glucose, POC 197 65 - 199 mg/dL [facility] Comment: Supplemental ranges: <140 mg/dL before meals <180 mg/dL all other times of the day Blood 02/16/2021 4:11 PM EDT 02/16/2021 4:11 PM EDT Yunior Rodriguez DO POINT OF CARE TEST O RDERABLES [facility] [place] [address] * CT Angiogram Lower Extremity Left (Generic) [...] who have questions please contact the health personal care aid that requested your imaging first. ? Narrative [...] patients who have questions please contactthe health personal care aid that requested your imaging first. Dali Feliz FOXING CLOSER IMG CT ORDERABLES * (ABNORMAL) POCT Glucose (02/16/2021 1:46 PM EDT) Glucose, POC 274(H) 65 - 199 mg/dL [facility] Comment: Supplemental ranges: <140 mg/dL before meals <180 mg/dL all other times of the day Blood 02/16/2021 1:46 PM EDT 02/16/2021 1:46 PM EDT Yunior Rodriguez DO POINT OF CARE TEST O RDERABLES Performing Organization Address [facility] de Phone Number [facility] [place] [address] * (ABNORMAL) POCT Glucose (02/16/2021 11:35 AM EDT) Glucose, POC 215(H) 65 - 199 mg/dL [facility] Comment: Supplemental ranges: <140 mg/dL before meals <180 mg/dL all other times of the day Blood 02/16/2021 11:3 5 AM EDT 02/16/2021 11:35 AM EDT Yunior Rodriguez DO POINT OF CARE TEST O RDERABLES Performing Organization Address [facility]/ZIP Co de Phone Number [facility] [place] [address] * (ABNORMAL) POCT Glucose (02/16/2021 10:23 AM EDT) Glucose, POC 239(H) 65 - 199 mg/dL [facility] Comment: Supplemental ranges: <140 mg/dL before meals <180 mg/dL all other times of the day Blood 02/16/2021 10:2 3 AM EDT 02/16/2021 10:23 AM EDT Yunior Rodriguez DO POINT OF CARE TEST O RDERABLES Performing Organization Address [facility] Co de Phone Number [facility] [place] [address] * (ABNORMAL) POCT Glucose (02/16/2021 7:46 AM EDT) Glucose, POC 273(H) 65 - 199 mg/dL [facility] Comment: Supplemental ranges: <140 mg/dL before meals <180 mg/dL all other times of the day Blood 02/16/2021 7:46 AM EDT 02/16/2021 7:46 AM EDT Yunior Rodriguez DO POINT OF CARE TEST O DIMITRISERAMISBAH Performing Organization Address [facility] Co de Phone Number [facility] [place] [address] * (ABNORMAL) Basic Metabolic Panel (non-fasting) (02/16/2021 [...] In Lab Yunior Rodriguez DO CHEMISTRY ORDERABLES [facility] [place] [address] * (ABNORMAL) Hemogram (02/16/2021 3:53 AM EDT) [...] [facility] NRBC% auto 0.0 % [facility] NRBC Absolute 0.000 0.000 - 0.000 x10(3)/mc L [facility] Blood 02/16/2021 3:53 AM EDT 02/16/2021 3:57 AM EDT Narrative Resulting Agency Comment Spec In Lab Yunior Rodriguez DO HEMATOLOGY ORDERABLE S Performing Organization Address City/[facility]/ZIP Co de Phone Number [facility] [place] [address] * POCT Glucose (02/15/2021 8:03 PM EDT) Glucose, POC 174 65 - 199 mg/dL [facility] Comment: Supplemental ranges: <140 mg/dL before meals <180 mg/dL all other times of the day Blood 02/15/2021 8:03 PM EDT 02/15/2021 8:03 PM EDT Yunior Rodriguez DO POINT OF CARE TEST O RDERABLES Performing Organization Address City/[facility]/ZIP Co de Phone Number [facility] [place] [address] * POCT Glucose (02/15/2021 5:24 PM EDT) Glucose, POC 127 65 - 199 mg/dL [facility] Comment: Supplemental ranges: <140 mg/dL before meals <180 mg/dL all other times of the day Blood 02/15/2021 5:24 PM EDT 02/15/2021 5:24 PM EDT Yunior Rodriguez DO POINT OF CARE TEST O RDERABLES [facility] [place] [address] * (ABNORMAL) POCT Glucose (02/15/2021 3:38 PM EDT) Glucose, POC 243(H) 65 - 199 mg/dL [facility] Comment: Supplemental ranges: <140 mg/dL before meals <180 mg/dL all other times of the day Blood 02/15/2021 3:38 PM EDT 02/15/2021 3:38 PM EDT Yunior Rodriguez DO POINT OF CARE TEST O RDERABLES Performing Organization Address [facility] Co de Phone Number [facility] [place] [address] * POCT Glucose (02/15/2021 11:39 AM EDT) Glucose, POC 178 65 - 199 mg/dL [facility] Comment: Supplemental ranges: <140 mg/dL before meals <180 mg/dL all other times of the day Blood 02/15/2021 11:3 9 AM EDT 02/15/2021 11:39 AM EDT Yunior Rodriguez DO POINT OF CARE TEST O RDERABLES Performing Organization Address City/[facility]/ZIP Co de Phone Number [facility] [place] [address] * (ABNORMAL) POCT Glucose (02/15/2021 7:40 AM EDT) Glucose, POC 238(H) 65 - 199 mg/dL [facility] Comment: Supplemental ranges: <140 mg/dL before meals <180 mg/dL all other times of the day Blood 02/15/2021 7:40 AM EDT 02/15/2021 7:40 AM EDT Yunior Rodriguez DO POINT OF CARE TEST O RDERABLES [facility] [place] [address] * (ABNORMAL) Basic Metabolic Panel (non-fasting) (02/15/2021 [...] CHEMISTRY ORDERABLES [facility] [place] [address] * (ABNORMAL) Hemogram (02/15/2021 12:35 AM EDT) [...] [facility] Mean Cell Hemoglobin 28.6 27.1 - 32.0 pg [facility] Mean Cell Hemoglobin Concentration 31.6(L) 31.7 - 35.0 gm/dL [facility] Platelet 291 145 - 357 x10(3)/mc L [facility] RDW Standard Deviation 43.9 37.0 - 46.0 fL [facility] RDW coefficient of variation 13.3 11.5 - 14.1 % [facility] Mean Platelet Volume 10.9 7.6 - 12.9 fL [facility] NRBC% auto 0.0 % [facility] NRBC Absolute 0.000 0.000 - 0.000 x10(3)/mc L [facility] Blood 02/15/2021 12:3 5 AM EDT 02/15/2021 12:44 AM EDT Narrative Resulting Agency Comment Spec In Lab Edilma Mary MD HEMATOLOGY ORDERABLE S Performing Organization Address City/[facility]/ZIP Co de Phone Number [facility] [place] [address] * POCT Glucose (02/14/2021 11:51 PM EDT) Glucose, POC 188 65 - 199 mg/dL [facility] Comment: Supplemental ranges: <140 mg/dL before meals <180 mg/dL all other times of the day Blood 02/14/2021 11:5 1 PM EDT 02/14/2021 11:51 PM EDT Yunior Rodriguez DO POINT OF CARE TEST O RDERABLES Performing Organization Address City/[facility]/ZIP Co de Phone Number [facility] [place] [address] * CK (02/14/2021 8:13 PM EDT) Creatine Kinase <20 0 - 160 unit/L [facility] Blood 02/14/2021 8:13 PM EDT 02/14/2021 8:19 PM EDT Narrative Resulting Agency Comment Spec In Lab Yunior Rodriguez DO CHEMISTRY ORDERABLES Performing Organization Address [facility]/ZIP Co de Phone Number [facility] [place] [address] * POCT Glucose (02/14/2021 7:53 PM EDT) Glucose, POC 186 65 - 199 mg/dL [facility] Comment: Supplemental ranges: <140 mg/dL before meals <180 mg/dL all other times of the day Blood 02/14/2021 7:53 PM EDT 02/14/2021 7:53 PM EDT Yunior Rodriguez DO POINT OF CARE TEST O RDERABLES Performing Organization Address [facility] Co de Phone Number [facility] [place] [address] * POCT Glucose (02/14/2021 4:57 PM EDT) Glucose, POC 110 65 - 199 mg/dL [facility] Comment: Supplemental ranges: <140 mg/dL before meals <180 mg/dL all other times of the day Blood 02/14/2021 4:57 PM EDT 02/14/2021 4:57 PM EDT Yunior Rodriguez DO POINT OF CARE TEST O RDERABLES Performing Organization Address [facility] Phone Number [facility] [place] [address] * Vancomycin, trough (02/14/2021 2:50 PM EDT) Vancomycin, Trough 18.9 mg/L [facility] Comment: Therapeutic range for complicated [...] Rodriguez DO CHEMISTRY ORDERABLES Performing Organization Address [facility] Co de Phone Number [facility] [place] [address] * POCT Glucose (02/14/2021 11:51 AM EDT) Glucose, POC 149 65 - 199 mg/dL [facility] Comment: Supplemental ranges: <140 mg/dL before meals <180 mg/dL all other times of the day Blood 02/14/2021 11:5 1 AM EDT 02/14/2021 11:51 AM EDT Yunior Rodriguez DO POINT OF CARE TEST O RDERABLES [facility] [place] [address] * XR PICC Placement Over 5 Years [...] who have questions please contact the health personal care aid that requested your imaging first. ? Electronically signed by: BLAZE SALEEM MD, [facility] ([phone]), at 02/14/2021 9:22 AM Narrative 02/14/2021 9:22 [...] patients who have questions please contactthe health personal care aid that requested your imaging first. Edilma Mary MD IMG FLUORO ORDERABLE S * Place PICC Line: Contact Vascular Access Page [phone] Extremity to exclude: No restrictions; Is PICC [...] to the planned procedure. Hand Hygiene: The circulation sales representative did perform hand hygiene prior to line insertion. Catheter type: PICC Lot number: [id number] Procedure Technique: Skin was prepped with chlorhexidine. [...] O RDERABLES [facility] [place] [address] * (ABNORMAL) POCT Glucose (02/13/2021 11:45 PM EDT) Glucose, POC 228(H) 65 - 199 mg/dL [facility] Comment: Supplemental ranges: <140 mg/dL before meals <180 mg/dL all other times of the day Blood 02/13/2021 11:4 5 PM EDT 02/13/2021 11:45 PM EDT Edilma Mary MD POINT OF CARE TEST O RDERABLES Performing Organization Address City/[facility]/ZIP Co de Phone Number [facility] [place] [address] * POCT Glucose (02/13/2021 7:39 PM EDT) Glucose, POC 186 65 - 199 mg/dL [facility] Comment: Supplemental ranges: <140 mg/dL before meals <180 mg/dL all other times of the day Blood 02/13/2021 7:39 PM EDT 02/13/2021 7:39 PM EDT Edilma Mary MD POINT OF CARE TEST O RDERABLES Performing Organization Address [facility]/ZIP Co de Phone Number [facility] [place] [address] * (ABNORMAL) POCT Glucose (02/13/2021 3:51 PM EDT) Glucose, POC 201(H) 65 - 199 mg/dL [facility] Comment: Supplemental ranges: <140 mg/dL before meals <180 mg/dL all other times of the day Blood 02/13/2021 3:51 PM EDT 02/13/2021 3:51 PM EDT Eidlma Mary MD POINT OF CARE TEST O RDERABLES Performing Organization Address City/[facility]/ZIP Co de Phone Number [facility] [place] [address] * XR Ankle Min 3 views Left [...] who have questions please contact the health personal care aid that requested your imaging first. ? Electronically signed by: Christian Leon MD, [facility] ([phone]), at 02/14/2021 2:58 AM Narrative 02/14/2021 2:58 [...] patients who have questions please contactthe health personal care aid that requested your imaging first. Electronically signed by: Christian Leon MD, [facility]([phone]), at 02/14/2021 2:58 AM Edilma Mary MD [...] O RDERABLES Performing Organization Address [facility]/ZIP Co de Phone Number [facility] [place] [address] * POCT Glucose (02/13/2021 8:18 AM EDT) Glucose, POC 185 65 - 199 mg/dL [facility] Comment: Supplemental ranges: <140 mg/dL before meals <180 mg/dL all other times of the day Blood 02/13/2021 8:18 AM EDT 02/13/2021 8:18 AM EDT Edilma Mary MD POINT OF CARE TEST O RDERAMISBAH [facility] [place] [address] * POCT Glucose (02/12/2021 8:16 PM EDT) Glucose, POC 120 65 - 199 mg/dL [facility] Comment: Supplemental ranges: <140 mg/dL before meals <180 mg/dL all other times of the day Blood 02/12/2021 8:16 PM EDT 02/12/2021 8:16 PM EDT Edilma Mary MD POINT OF CARE TEST O RDERABLES [facility] [place] [address] * POCT Glucose (02/12/2021 7:25 PM EDT) Glucose, POC 99 65 - 199 mg/dL [facility] Comment: Supplemental ranges: <140 mg/dL before meals <180 mg/dL all other times of the day Blood 02/12/2021 7:25 PM EDT 02/12/2021 7:25 PM EDT Edilma Mary MD POINT OF CARE TEST O RDERAMISBAH Performing Organization Address City/[facility]/ZIP Co de Phone Number [facility] [place] [address] * POCT Glucose (02/12/2021 5:48 PM EDT) Glucose, POC 102 65 - 199 mg/dL [facility] Comment: Supplemental ranges: <140 mg/dL before meals <180 mg/dL all other times of the day Blood 02/12/2021 5:48 PM EDT 02/12/2021 5:48 PM EDT Edilma Mary MD POINT OF CARE TEST O RDERABLES Performing Organization Address City/[facility]/ZIP Co de Phone Number [facility] [place] [address] * Anaerobic Culture (02/12/2021 5:45 PM EDT) Anaerobic Culture No anaerobic organisms isolated [facility] Deep Wound ANKLE REGION STRUCTURE / Unknown 02/12/2021 5:45 PM EDT 02/12/2021 6:31 PM EDT Comment:OR#[id number] Narrative Resulting Agency Comment Spec In Lab Sabrina Capellan MD MICROBIOLOGY - GENER AL ORDERABLES Performing Organization Address [facility]/ZIP Co de Phone Number [facility] [place] [address] * (ABNORMAL) Abscess/Wound Aspirate Culture (02/12/2021 5:45 PM EDT) Abscess/Wound Aspirate Culture Rare Staphylococcus aureus Susceptibilities previously reported (A) [facility] Gram Stain No Neutrophils seen. No microorganisms seen. (A) [facility] Organism Staphylococcus aureus(A) [facility] Deep Wound ANKLE REGION STRUCTURE / Unknown 02/12/2021 5:45 PM EDT 02/12/2021 6:31 PM EDT Comment:OR#[id number] Narrative Resulting Agency Comment Spec In Lab Sabrina Capellan MD MICROBIOLOGY - GENER AL ORDERABLES Performing Organization Address [facility] Co de Phone Number [facility] [place] [address] * Anaerobic Culture (02/12/2021 5:43 PM EDT) Anaerobic Culture No anaerobic organisms isolated [facility] Deep Wound ANKLE REGION STRUCTURE / Unknown 02/12/2021 5:43 PM EDT 02/12/2021 6:32 PM EDT Comment:LEFT DEEP ANKLE BONE Narrative Resulting Agency Comment Spec In Lab Sabrina Capellan MD MICROBIOLOGY - GENER AL ORDERABLES Performing Organization Address [facility]/ZIP Co de Phone Number [facility] [place] [address] * (ABNORMAL) Abscess/Wound Aspirate Culture (02/12/2021 5:43 [...] Sensitive Comment:Gentamicin i s not appropriate for Mathews-therapy. Staphylococcus aureus Oxacillin VITEK 2 METHOD Sensitive [...] - GENER AL ORDERABLES Performing Organization Address City/[facility]/ZIP Co de Phone Number [facility] [place] [address] * POCT Glucose (02/12/2021 3:39 PM EDT) Glucose, POC 109 65 - 199 mg/dL [facility] Comment: Supplemental ranges: <140 mg/dL before meals <180 mg/dL all other times of the day Blood 02/12/2021 3:39 PM EDT 02/12/2021 3:39 PM EDT Edilma Mary MD POINT OF CARE TEST O RDERABLES Performing Organization Address City/[facility]/ZIP Co de Phone Number [facility] [place] [address] * Vancomycin, trough (02/12/2021 2:30 PM EDT) Vancomycin, Trough 18.3 mg/L [facility] Comment: Therapeutic range for complicated [...] Rodriguez DO CHEMISTRY ORDERABLES Performing Organization Address [facility]/ZIP Co de Phone Number [facility] [place] [address] * POCT Glucose (02/12/2021 11:56 AM EDT) Glucose, POC 123 65 - 199 mg/dL [facility] Comment: Supplemental ranges: <140 mg/dL before meals <180 mg/dL all other times of the day Blood 02/12/2021 11:5 6 AM EDT 02/12/2021 11:56 AM EDT Edilma Mary MD POINT OF CARE TEST O RDERABLES [facility] [place] [address] * POCT Glucose (02/12/2021 7:37 AM EDT) Glucose, POC 138 65 - 199 mg/dL [facility] Comment: Supplemental ranges: <140 mg/dL before meals <180 mg/dL all other times of the day Blood 02/12/2021 7:37 AM EDT 02/12/2021 7:37 AM EDT Edilma Mary MD POINT OF CARE TEST O RDERABLES Performing Organization Address City/[facility]/ZIP Co de Phone Number [facility] [place] [address] * POCT Glucose (02/12/2021 4:22 AM EDT) Glucose, POC 170 65 - 199 mg/dL [facility] Comment: Supplemental ranges: <140 mg/dL before meals <180 mg/dL all other times of the day Blood 02/12/2021 4:22 AM EDT 02/12/2021 4:22 AM EDT Edilma Mary MD POINT OF CARE TEST O RDERAMISBAH Performing Organization Address [facility] Co de Phone Number [facility] [place] [address] * POCT Glucose (02/11/2021 11:20 PM EDT) Glucose, POC 147 65 - 199 mg/dL [facility] Comment: Supplemental ranges: <140 mg/dL before meals <180 mg/dL all other times of the day Blood 02/11/2021 11:2 0 PM EDT 02/11/2021 11:20 PM EDT Edilma Mary MD POINT OF CARE TEST O RDERABLES Performing Organization Address [facility]/ZIP Co de Phone Number [facility] [place] [address] * (ABNORMAL) POCT Glucose (02/11/2021 7:59 PM EDT) Glucose, POC 213(H) 65 - 199 mg/dL [facility] Comment: Supplemental ranges: <140 mg/dL before meals <180 mg/dL all other times of the day Blood 02/11/2021 7:59 PM EDT 02/11/2021 7:59 PM EDT Edilma Mary MD POINT OF CARE TEST O RDERABLES Performing Organization Address [facility]/ZIP Co de Phone Number [facility] [place] [address] * POCT Glucose (02/11/2021 4:02 PM EDT) Glucose, POC 129 65 - 199 mg/dL [facility] Comment: Supplemental ranges: <140 mg/dL before meals <180 mg/dL all other times of the day Blood 02/11/2021 4:02 PM EDT 02/11/2021 4:02 PM EDT Edilma Mary MD POINT OF CARE TEST O VIKKI Performing Organization Address [facility] Co de Phone Number [facility] [place] [address] * POCT Glucose (02/11/2021 1:35 PM EDT) Glucose, POC 152 65 - 199 mg/dL [facility] Comment: Supplemental ranges: <140 mg/dL before meals <180 mg/dL all other times of the day Blood 02/11/2021 1:35 PM EDT 02/11/2021 1:35 PM EDT Edilma Mary MD POINT OF CARE TEST O VIKKI Performing Organization Address [facility] Co de Phone Number [facility] [place] [address] * (ABNORMAL) POCT Glucose (02/11/2021 11:28 AM EDT) Glucose, POC 284(H) 65 - 199 mg/dL [facility] Comment: Supplemental ranges: <140 mg/dL before meals <180 mg/dL all other times of the day Blood 02/11/2021 11:2 8 AM EDT 02/11/2021 11:28 AM EDT Edilma Mary MD POINT OF CARE TEST O RDERABLES Performing Organization Address [facility] Co de Phone Number [facility] [place] [address] * POCT Glucose (02/11/2021 7:42 AM EDT) Glucose, POC 133 65 - 199 mg/dL [facility] Comment: Supplemental ranges: <140 mg/dL before meals <180 mg/dL all other times of the day Blood 02/11/2021 7:42 AM EDT 02/11/2021 7:42 AM EDT Edilma Mary MD POINT OF CARE TEST O RDERABLES Performing Organization Address [facility] de Phone Number [facility] [place] [address] * (ABNORMAL) POCT Glucose (02/11/2021 3:57 AM EDT) Glucose, POC 267(H) 65 - 199 mg/dL [facility] Comment: Supplemental ranges: <140 mg/dL before meals <180 mg/dL all other times of the day Blood 02/11/2021 3:57 AM EDT 02/11/2021 3:57 AM EDT Edilma Mary MD POINT OF CARE TEST O RDERABLES Performing Organization Address [facility] de Phone Number [facility] [place] [address] * POCT Glucose (02/10/2021 11:55 PM EDT) Glucose, POC 190 65 - 199 mg/dL [facility] Comment: Supplemental ranges: <140 mg/dL before meals <180 mg/dL all other times of the day Blood 02/10/2021 11:5 5 PM EDT 02/10/2021 11:55 PM EDT Edilma Mary MD POINT OF CARE TEST O RDERABLES [facility] [place] [address] * (ABNORMAL) POCT Glucose (02/10/2021 9:10 PM EDT) Glucose, POC 225(H) 65 - 199 mg/dL [facility] Comment: Supplemental ranges: <140 mg/dL before meals <180 mg/dL all other times of the day Blood 02/10/2021 9:10 PM EDT 02/10/2021 9:10 PM EDT Edilma Mary MD POINT OF CARE TEST O VIKKI Performing Organization Address [facility] Co de Phone Number [facility] [place] [address] * (ABNORMAL) POCT Glucose (02/10/2021 6:55 PM EDT) Glucose, POC 346(H) 65 - 199 mg/dL [facility] Comment: Supplemental ranges: <140 mg/dL before meals <180 mg/dL all other times of the day Blood 02/10/2021 6:55 PM EDT 02/10/2021 6:55 PM EDT Edilma Mary MD POINT OF CARE TEST O VIKKI Performing Organization Address [facility] Co de Phone Number [facility] [place] [address] * (ABNORMAL) POCT Glucose (02/10/2021 3:44 PM EDT) Glucose, POC 284(H) 65 - 199 mg/dL [facility] Comment: Supplemental ranges: <140 mg/dL before meals <180 mg/dL all other times of the day Blood 02/10/2021 3:44 PM EDT 02/10/2021 3:44 PM EDT Edilma Mary MD POINT OF CARE TEST O RDERABLES Performing Organization Address [facility] Co de Phone Number [facility] [place] [address] * Vancomycin, trough (02/10/2021 2:15 PM EDT) Vancomycin, Trough 12.9 mg/L [facility] Comment: Therapeutic range for complicated [...] Rodriguez DO CHEMISTRY ORDERABLES Performing Organization Address [facility] Co de Phone Number [facility] [place] [address] * POCT Glucose (02/10/2021 11:46 AM EDT) Glucose, POC 154 65 - 199 mg/dL [facility] Comment: Supplemental ranges: <140 mg/dL before meals <180 mg/dL all other times of the day Blood 02/10/2021 11:4 6 AM EDT 02/10/2021 11:46 AM EDT Edilma Mary MD POINT OF CARE TEST O RDERABLES Performing Organization Address [facility] Co de Phone Number [facility] [place] [address] * POCT Glucose (02/10/2021 10:40 AM EDT) Glucose, POC 132 65 - 199 mg/dL [facility] Comment: Supplemental ranges: <140 mg/dL before meals <180 mg/dL all other times of the day Blood 02/10/2021 10:4 0 AM EDT 02/10/2021 10:40 AM EDT Edilma Mary MD POINT OF CARE TEST O RDERABLES Performing Organization Address [facility] [place] [address] * Anaerobic Culture (02/10/2021 10:02 AM EDT) Anaerobic Culture No anaerobic organisms isolated [facility] Deep Wound STRUCTURE OF LEFT FOOT / Unknown 02/10/2021 10:02 AM EDT 02/10/2021 10:31 AM EDT Comment:LEFT LATERAL PROXIMA L ANKLE Narrative Resulting Agency Comment Spec In Lab Jacobo De La Cruz MD MICROBIOLOGY - GENER AL ORDERABLES Performing Organization Address [facility] Phone Number [facility] [place] [address] * (ABNORMAL) Abscess/Wound Aspirate Culture (02/10/2021 10:02 [...] - GENER AL ORDERABLES Performing Organization Address [facility] Co de Phone Number [facility] [place] [address] * Anaerobic Culture (02/10/2021 10:02 AM EDT) Anaerobic Culture No anaerobic organisms isolated [facility] Deep Wound STRUCTURE OF LEFT FOOT / Unknown 02/10/2021 10:02 AM EDT 02/10/2021 10:31 AM EDT Comment:LEFT LATERAL DISTAL ANKLE Narrative Resulting Agency Comment Spec In Lab Jacobo De La Cruz MD MICROBIOLOGY - GENER AL ORDERABLES Performing Organization Address [facility] de Phone Number [facility] [place] [address] * (ABNORMAL) Abscess/Wound Aspirate Culture (02/10/2021 10:02 [...] - GENER AL ORDERABLES Performing Organization Address [facility] de Phone Number [facility] [place] [address] * POCT Glucose (02/10/2021 7:42 AM EDT) Glucose, POC 130 65 - 199 mg/dL [facility] Comment: Supplemental ranges: <140 mg/dL before meals <180 mg/dL all other times of the day Blood 02/10/2021 7:42 AM EDT 02/10/2021 7:42 AM EDT Edilma Mary MD POINT OF CARE TEST O RDFLAKITA [facility] [place] [address] * POCT Glucose (02/10/2021 5:02 AM EDT) Pathologist [facility] Glucose, POC 102 65 - 199 mg/dL [facility] Comment: Supplemental ranges: <140 mg/dL before meals <180 mg/dL all other times of the day Blood 02/10/2021 5:02 AM EDT 02/10/2021 5:02 AM EDT Edilma Mary MD POINT OF CARE TEST O VIKKI Performing Organization Address [facility] Co de Phone Number [facility] [place] [address] * Differential, Automated (02/10/2021 4:01 AM EDT) [facility] Neutrophil % 73.3 % [facility] Neutrophil Absolute 4.98 1.70 - 6.10 x10(3)/[facility] Lymph % 14.3 % [facility] Lymphocytes Abs 1.0 0.9 - 3.2 x10(3)/[facility] Monocyte % 10.2 % [facility] Monocyte Abs 0.7 0.3 - 0.9 x10(3)/[facility] Eos % 1.6 % [facility] Eosinophils Abs 0.1 0.0 - 0.4 x10(3)/[facility] Basophil % 0.3 % [facility] Baso Absolute 0.0 0.0 - 0.1 x10(3)/[facility] Immature Gran % 0.30 % [facility] Comment: Immature granulocytes(IG's)percentage and absolute count will include metamyelocytes, myelocytes, and promyelocytes. Blood smears from CBCs yielding IG's will be scanned manually for concordance. If this scan disagrees with the automated IG or if promyelocytes are noted, a manual differential will be performed. Immature Gran Absolute 0.02 0.00 - 0.04 x10(3)/mcL [facility] Blood 02/10/2021 4:01 AM EDT 02/10/2021 4:21 AM EDT Narrative Resulting Agency Comment Spec In Lab Yani Dumas MD HEMATOLOGY ORDERABL ES [facility] [place] [address] * (ABNORMAL) Hemogram (02/10/2021 4:01 AM EDT) White Blood Cell 6.8 4.0 - 9.5 x10(3)/[facility] Red Blood Cell 3.60(L) 4.00 - 5.21 x10(6)/[facility] Hemoglobin 10.5(L) 11.7 - 15.5 gm/dL [...] HOSPITAL LABORATORY Platelet 160 145 - 357 x10(3)/[facility] LABOR[facility]ORY RDW Standard Deviation 45.1 37.0 - 46.0 [facility] LABORATORY RDW coefficient of variation 13.5 11.5 - 14.1 % [facility] Mean Platelet Volume 11.6 7.6 - 12.9 fL [facility] NRBC% auto 0.0 % [facility] NRBC Absolute 0.000 0.000 - 0.000 x10(3)/[facility] Blood 02/10/2021 4:01 AM EDT 02/10/2021 4:21 AM EDT Narrative Resulting Agency Comment Spec In Lab Yani Dumas MD HEMATOLOGY ORDERABL ES [facility] [place] [address] * (ABNORMAL) Basic Metabolic Panel (non-fasting) (02/10/2021 [...] Mary MD CHEMISTRY ORDERABLES Performing Organization Address [facility]/ZIP Co de Phone Number [facility] [place] [address] * POCT Glucose (02/10/2021 12:14 AM EDT) Glucose, POC 180 65 - 199 mg/dL [facility] Comment: Supplemental ranges: <140 mg/dL before meals <180 mg/dL all other times of the day Blood 02/10/2021 12:1 4 AM EDT 02/10/2021 12:14 AM EDT Edilma Mary MD POINT OF CARE TEST O RDERABLES Performing Organization Address [facility]/ZIP Co de Phone Number [facility] [place] [address] * POCT Glucose (02/09/2021 8:52 PM EDT) Glucose, POC 178 65 - 199 mg/dL [facility] Comment: Supplemental ranges: <140 mg/dL before meals <180 mg/dL all other times of the day Blood 02/09/2021 8:52 PM EDT 02/09/2021 8:52 PM EDT Edilma Mary MD POINT OF CARE TEST O RDERABLES Performing Organization Address City/[facility]/ZIP Co de Phone Number [facility] [place] [address] * (ABNORMAL) POCT Glucose (02/09/2021 4:15 PM EDT) Glucose, POC 260(H) 65 - 199 mg/dL [facility] Comment: Supplemental ranges: <140 mg/dL before meals <180 mg/dL all other times of the day Blood 02/09/2021 4:15 PM EDT 02/09/2021 4:15 PM EDT Edilma Mary MD POINT OF CARE TEST O RDERABLES [facility] [place] [address] * (ABNORMAL) POCT Glucose (02/09/2021 2:09 PM EDT) Glucose, POC 346(H) 65 - 199 mg/dL [facility] Comment: Supplemental ranges: <140 mg/dL before meals <180 mg/dL all other times of the day Blood 02/09/2021 2:09 PM EDT 02/09/2021 2:09 PM EDT Edilma Mary MD POINT OF CARE TEST O DIMITRISERAMISBAH Performing Organization Address [facility]/ZIP Co de Phone Number [facility] [place] [address] * (ABNORMAL) POCT Glucose (02/09/2021 11:58 AM EDT) Glucose, POC 339(H) 65 - 199 mg/dL [facility] Comment: Supplemental ranges: <140 mg/dL before meals <180 mg/dL all other times of the day Blood 02/09/2021 11:5 8 AM EDT 02/09/2021 11:58 AM EDT Edilma Mary MD POINT OF CARE TEST O RDERABLES Performing Organization Address City/[facility]/ZIP Co de Phone Number [facility] [place] [address] * POCT Glucose (02/09/2021 7:49 AM EDT) Glucose, POC 168 65 - 199 mg/dL [facility] Comment: Supplemental ranges: <140 mg/dL before meals <180 mg/dL all other times of the day Blood 02/09/2021 7:49 AM EDT 02/09/2021 7:49 AM EDT Edilma Mary MD POINT OF CARE TEST O RDERABLES [facility] [place] [address] * (ABNORMAL) Differential, Automated (02/09/2021 5:13 AM EDT) Neutrophil % 73.2 % [facility] Neutrophil Absolute 6.14(H) 1.70 - 6.10 x10(3)/mc L [facility] Lymph % 11.5 % [facility] Lymphocytes Abs 1.0 0.9 - 3.2 x10(3)/ L [facility] Monocyte % 14.1 % [facility] Monocyte Abs 1.2(H) 0.3 - 0.9 x10(3)/mc L [facility] Eos % 0.6 % [facility] Eosinophils Abs 0.0 0.0 - 0.4 x10(3)/ L [facility] Basophil % 0.4 % [facility] Baso Absolute 0.0 0.0 - 0.1 x10(3)/mc L [facility] Immature Gran % 0.20 % [facility] Comment: Immature granulocytes(IG's)percentage and absolute count will include metamyelocytes, myelocytes, and promyelocytes. Blood smears from CBCs yielding IG's will be scanned manually for concordance. If this scan disagrees with the automated IG or if promyelocytes are noted, a manual differential will be performed. Immature Gran Absolute 0.02 0.00 - 0.04 x10(3)/mc L [facility] Blood 02/09/2021 5:13 AM EDT 02/09/2021 5:18 AM EDT Narrative Resulting Agency Comment Spec In Lab Yani Dumas MD HEMATOLOGY ORDERABL ES [facility] [place] [address] * Hemogram (02/09/2021 5:13 AM EDT) [facility] White Blood Cell 8.4 4.0 - 9.5 x10(3)/[facility] LABORAT[facility] Red Blood Cell 4.25 4.00 - 5.21 x10(6)/[facility] Hemoglobin 12.5 11.7 - 15.5 gm/dL [...] HOSPITAL LABORATORY Platelet 147 145 - 357 x10(3)/[facility] RDW Standard Deviation 44.1 37.0 - 46.0 fL [facility] RDW coefficient of variation 13.4 11.5 - 14.1 % [facility] Mean Platelet Volume 11.2 7.6 - 12.9 fL [facility] NRBC% auto 0.0 % [facility] NRBC Absolute 0.000 0.000 - 0.000 x10(3)/[facility] Blood 02/09/2021 5:13 AM EDT 02/09/2021 5:18 AM EDT Narrative Resulting Agency Comment Spec In Lab Yani Dumas MD HEMATOLOGY ORDERABL ES [facility] [place] [address] * Vitamin D, 25-Hydroxy (02/09/2021 5:13 AM EDT) Vitamin D Total 25 OH 43 21 - 100 ng/mL [facility] Vit D Interp Sufficient [facility] Blood 02/09/2021 5:13 AM EDT 02/09/2021 5:18 AM EDT Narrative Resulting Agency Comment Spec In Lab Cami M Torito [employer] CHEMISTRY ORDERABLES [facility] [place] [address] * (ABNORMAL) Basic Metabolic Panel (non-fasting) (02/09/2021 5:13 AM EDT) Pathologist [facility] Glucose 140 65 - 199 mg/dL [facility] [...] Mary MD CHEMISTRY ORDERABLES Performing Organization Address City/[facility]/ZIP Co de Phone Number [facility] [place] [address] * POCT Glucose (02/09/2021 4:44 AM EDT) Glucose, POC 131 65 - 199 mg/dL [facility] Comment: Supplemental ranges: <140 mg/dL before meals <180 mg/dL all other times of the day Blood 02/09/2021 4:44 AM EDT 02/09/2021 4:44 AM EDT Edilma Mary MD POINT OF CARE TEST O RDERABLES Performing Organization Address [facility] Co de Phone Number [facility] [place] [address] * (ABNORMAL) POCT Glucose (02/08/2021 11:24 PM EDT) Glucose, POC 204(H) 65 - 199 mg/dL [facility] Comment: Supplemental ranges: <140 mg/dL before meals <180 mg/dL all other times of the day Blood 02/08/2021 11:2 4 PM EDT 02/08/2021 11:24 PM EDT Edilma Mary MD POINT OF CARE TEST O RDERABLES Performing Organization Address City/[facility] Co de Phone Number [facility] [place] [address] * (ABNORMAL) POCT Glucose (02/08/2021 8:27 PM EDT) Glucose, POC 201(H) 65 - 199 mg/dL [facility] Comment: Supplemental ranges: <140 mg/dL before meals <180 mg/dL all other times of the day Blood 02/08/2021 8:27 PM EDT 02/08/2021 8:27 PM EDT Edilma Mary MD POINT OF CARE TEST O RDERABLES [facility] [place] [address] * (ABNORMAL) POCT Glucose (02/08/2021 4:20 PM EDT) Glucose, POC 225(H) 65 - 199 mg/dL [facility] Comment: Supplemental ranges: <140 mg/dL before meals <180 mg/dL all other times of the day Blood 02/08/2021 4:20 PM EDT 02/08/2021 4:20 PM EDT Edilma Mary MD POINT OF CARE TEST O RDERABLES Performing Organization Address City/[facility]/ZIP Co de Phone Number [facility] [place] [address] * POCT Glucose (02/08/2021 12:11 PM EDT) Glucose, POC 186 65 - 199 mg/dL [facility] Comment: Supplemental ranges: <140 mg/dL before meals <180 mg/dL all other times of the day Blood 02/08/2021 12:1 1 PM EDT 02/08/2021 12:11 PM EDT Edilma Mary MD POINT OF CARE TEST O RDERABLES [facility] [place] [address] * Anaerobic Culture (02/08/2021 10:30 AM EDT) Anaerobic Culture No anaerobic organisms isolated [facility] Deep Wound ANKLE REGION STRUCTURE / Unknown 02/08/2021 10:30 AM EDT 02/08/2021 11:32 AM EDT Comment:SWAB ANKLE HARDWARE #3 Narrative Resulting Agency Comment Spec In Lab Henrry Quiñones MD MICROBIOLOGY - GENE RAL ORDERABLES Performing Organization Address [facility] Co de Phone Number [facility] [place] [address] * (ABNORMAL) Abscess/Wound Aspirate Culture (02/08/2021 10:30 [...] - GENE RAL ORDERABLES Performing Organization Address [facility] Co de Phone Number [facility] [place] [address] * Anaerobic Culture (02/08/2021 10:30 AM EDT) Anaerobic Culture No anaerobic organisms isolated [facility] Deep Wound ANKLE REGION STRUCTURE / Unknown 02/08/2021 10:30 AM EDT 02/08/2021 11:33 AM EDT Comment:SWAB LEFT ANKLE HARD FERGUSON #2 Narrative Resulting Agency Comment Spec In Lab Henrry Quiñones MD MICROBIOLOGY - GENE RAL ORDERABLES Performing Organization Address [facility]/ZIP Co de Phone Number [facility] [place] [address] * (ABNORMAL) Abscess/Wound Aspirate Culture (02/08/2021 10:30 [...] - GENE RAL ORDERABLES Performing Organization Address [facility] Co de Phone Number [facility] [place] [address] * Anaerobic Culture (02/08/2021 10:30 AM EDT) Anaerobic Culture No anaerobic organisms isolated [facility] Deep Wound ANKLE REGION STRUCTURE / Unknown 02/08/2021 10:30 AM EDT 02/08/2021 11:31 AM EDT Comment:SWAB LEFT ANKLE HARD FERGUSON #1 Narrative Resulting Agency Comment Spec In Lab Henrry Quiñones MD MICROBIOLOGY - GENE RAL ORDERABLES Performing Organization Address [facility] Co de Phone Number [facility] [place] [address] * (ABNORMAL) Abscess/Wound Aspirate Culture (02/08/2021 10:30 [...] Sensitive Comment:Gentamicin i s not appropriate for Mathews-therapy. Staphylococcus aureus Oxacillin VITEK 2 METHOD Sensitive [...] METHOD Sensitive Henrry Quiñones MD MICROBIOLOGY - [facility] ORDERABLES [facility] [place] [address] * POCT Glucose (02/08/2021 7:57 AM EDT) Glucose, POC 141 65 - 199 mg/dL [facility] Comment: Supplemental ranges: <140 mg/dL before meals <180 mg/dL all other times of the day Blood 02/08/2021 7:57 AM EDT 02/08/2021 7:57 AM EDT Mark Chavez MD POINT OF CARE TEST O RDERABLES [facility] [place] [address] * POCT Glucose (02/08/2021 4:10 AM EDT) Glucose, POC 164 65 - 199 mg/dL [facility] Comment: Supplemental ranges: <140 mg/dL before meals <180 mg/dL all other times of the day Blood 02/08/2021 4:10 AM EDT 02/08/2021 4:10 AM EDT Mark Chavez MD POINT OF CARE TEST O RDERABLES Performing Organization Address [facility]/ZIP Co de Phone Number [facility] [place] [address] * (ABNORMAL) Differential, Automated (02/08/2021 3:19 AM EDT) [facility] Neutrophil % 80.5 % [facility] Neutrophil Absolute 6.90(H) 1.70 - 6.10 x10(3)/mc L [facility] Lymph % 10.6 % [facility] Lymphocytes Abs 0.9 0.9 - 3.2 x10(3)/mc L [facility] Monocyte % 7.8 % [facility] Monocyte Abs 0.7 0.3 - 0.9 x10(3)/mc L [facility] Eos % 0.4 % [facility] Eosinophils Abs 0.0 0.0 - 0.4 x10(3)/mc L [facility] Basophil % 0.2 % [facility] Baso Absolute 0.0 0.0 - [...] ORDERABLE S [facility] [place] [address] * Hemogram (02/08/2021 3:19 AM EDT) White Blood Cell 8.6 4.0 - 9.5 x10(3)/[facility] LABORAT[facility] Red Blood Cell 4.45 4.00 - 5.21 x10(6)/[facility] LAB[facility] Hemoglobin 13.0 11.7 - 15.5 gm/dL [...] HOSPITAL LABORATORY Platelet 165 145 - 357 x10(3)/[facility] LAB[facility] RDW Standard Deviation 42.5 37.0 - 46.0 [facility] LABORATORY RDW coefficient of variation 13.1 11.5 - 14.1 % [facility] Mean Platelet Volume 11.6 7.6 - 12.9 fL [facility] NRBC% auto 0.0 % [facility] NRBC Absolute 0.000 0.000 - 0.000 x10(3)/[facility] Blood 02/08/2021 3:19 AM EDT 02/08/2021 3:50 AM EDT Narrative Resulting Agency Comment Spec In Lab Mark Chavez MD HEMATOLOGY ORDERABLE S [facility] [place] [address] * (ABNORMAL) Hemoglobin A1c (02/08/2021 3:19 AM [...] Mellitus, Diabetes Care 2013; 36: Suppl. 1, S67-76 Estimated Average Glucose 181 mg/dL [facility] [...] into estimated average glucose values. ??Diabetes Care 2008:31(8):0463-0113. Blood 02/08/2021 3:19 AM EDT 02/08/2021 3:50 AM EDT Narrative Resulting Agency Comment Spec In Lab Mark Chavez MD CHEMISTRY ORDERABLES [facility] [place] [address] * Basic Metabolic Panel (non-fasting) (02/08/2021 3:19 [...] Mary MD CHEMISTRY ORDERABLES Performing Organization Address City/[facility]/ZIP Co de Phone Number [facility] [place] [address] * (ABNORMAL) POCT Glucose (02/08/2021 2:05 AM EDT) Glucose, POC 204(H) 65 - 199 mg/dL [facility] Comment: Supplemental ranges: <140 mg/dL before meals <180 mg/dL all other times of the day Blood 02/08/2021 2:05 AM EDT 02/08/2021 2:05 AM EDT Mark Chavez MD POINT OF CARE TEST O RDERABLES Performing Organization Address [facility]/ZIP Co de Phone Number [facility] [place] [address] * (ABNORMAL) POCT Glucose (02/07/2021 11:47 PM EDT) Glucose, POC 267(H) 65 - 199 mg/dL [facility] Comment: Supplemental ranges: <140 mg/dL before meals <180 mg/dL all other times of the day Blood 02/07/2021 11:4 7 PM EDT 02/07/2021 11:47 PM EDT Mark Chavez MD POINT OF CARE TEST O RDERABLES Performing Organization Address City/[facility]/ZIP Co de Phone Number [facility] [place] [address] * (ABNORMAL) POCT Glucose (02/07/2021 10:07 PM EDT) Glucose, POC 311(H) 65 - 199 mg/dL [facility] Comment: Supplemental ranges: <140 mg/dL before meals <180 mg/dL all other times of the day Blood 02/07/2021 10:0 7 PM EDT 02/07/2021 10:07 PM EDT Mark Chavez MD POINT OF CARE TEST O RDERABLES Performing Organization Address City/[facility]/ZIP Co de Phone Number [facility] [place] [address] * (ABNORMAL) POCT Glucose (02/07/2021 8:51 PM EDT) Glucose, POC 254(H) 65 - 199 mg/dL [facility] Comment: Supplemental ranges: <140 mg/dL before meals <180 mg/dL all other times of the day Blood 02/07/2021 8:51 PM EDT 02/07/2021 8:51 PM EDT Mark Chavez MD POINT OF CARE TEST O RDERABLES Performing Organization Address [facility]/ZIP Co de Phone Number [facility] [place] [address] * Blood culture (02/07/2021 7:37 PM EDT) Blood Culture No growth at 5 days. [facility] Blood 02/07/2021 7:37 PM EDT 02/07/2021 7:50 PM EDT Comment:L AC Narrative Resulting Agency Comment Spec In Lab Jacobo De La Cruz MD MICROBIOLOGY - BLOOD ORDERABLES Performing Organization Address City/[facility]/ZIP Co de Phone Number [facility] [place] [address] * Blood culture (02/07/2021 6:55 PM EDT) Blood Culture No growth at 5 days. [facility] Blood 02/07/2021 6:55 PM EDT 02/07/2021 7:51 PM EDT Narrative Resulting Agency Comment Spec In Lab Jacobo De La Cruz MD MICROBIOLOGY - BLOOD ORDERABLES Performing Organization Address City/[facility]/ZIP Co de Phone Number [facility] [place] [address] * Ab Comment (02/07/2021 6:50 PM EDT) [...] [facility] ORDE AMINTA Performing Organization Address City/[facility]/ZIP Co de Phone Number [facility] [place] [address] * Antibody identification (02/07/2021 6:50 PM EDT) Ab Identified Anti-K [facility] Blood 02/07/2021 6:50 PM EDT 02/07/2021 7:05 PM EDT Narrative Resulting Agency Comment Spec In Lab [facility] ORDE AMINTA [facility] [place] [address] * Type and Screen Validity (02/07/2021 6:50 PM EDT) T&S only valid at [facility] LABORATORY Comment:This Type and Screen result is only valid at the [facility] Blood 02/07/2021 6:50 PM EDT 02/07/2021 7:05 PM EDT Narrative Resulting Agency Comment Spec In Lab N[facility] LAB ORDErica LEMOS Performing Organization Address [facility]/ZIP Co de Phone Number [facility] [place] [address] * ABORH Recheck Status (02/07/2021 6:50 PM EDT) ABORH Recheck Order Order Placed [facility] ABORH Type Recheck Complete [facility] Blood 02/07/2021 6:50 PM EDT 02/07/2021 7:05 PM EDT Narrative Resulting Agency Comment Spec In Lab [facility] LAB ORDErica LEMOS Performing Organization Address City/[facility]/ZIP Co de Phone Number [facility] [place] [address] * Antibody screen (02/07/2021 6:50 PM EDT) Ab Screen Interp Positive [facility] Expires at [id number] on: 02/10/2021 [facility] Blood 02/07/2021 6:50 PM EDT 02/07/2021 7:05 PM EDT Narrative Resulting Agency Comment Spec In Lab N[facility] ORDE AMINTA [facility] [place] [address] * ABO/Rh Typing (02/07/2021 6:50 PM EDT) ABORH Type O Neg [facility] Blood 02/07/2021 6:50 PM EDT 02/07/2021 7:05 PM EDT Narrative Resulting Agency Comment Spec In Lab N[facility] ALMA LEMOS [facility] [place] [address] * CT Lower Extremity w Contrast Left [...] who have questions please contact the health personal care aid that requested your imaging first. ? Electronically signed by: Meli Gonzales MD, [facility] ([phone]), at 02/07/2021 6:17 PM Narrative 02/07/2021 6:17 PM EDT EXAMINATION: CT [...] Within these limits, there is a small gop-meithorjmm-bpmoycltj collection adjacent to the distal aspect of [...] patients who have questions please contactthe health personal care aid that requested your imaging first. Electronically signed by: Meli Gonzales MD, [facility]([phone]), at 02/07/2021 6:17 PM Mark Chavez MD [...] who have questions please contact the health personal care aid that requested your imaging first. ? Electronically signed by: Anthony Carrillo MD, [facility] ([phone]), at 02/07/2021 3:44 PM Narrative 02/07/2021 3:44 [...] patients who have questions please contactthe health personal care aid that requested your imaging first. Kristian Colorado III, MD IMG DX ORDERABLES * Vitamin D, 25-Hydroxy (02/07/2021 3:03 PM EDT) Vitamin D Total 25 OH 55 21 - 100 ng/mL [facility] Vit D Interp Sufficient [facility] Blood Venous Draw / Unknown 02/07/2021 3:03 PM EDT 02/07/2021 3:14 PM EDT Narrative Resulting Agency Comment Spec In Lab Cami Ugarte [employer] CHEMISTRY ORDERABLES Performing Organization Address City/[facility]/ZIP Co de Phone Number [facility] [place] [address] * Green Tube HOLD (02/07/2021 3:03 PM EDT) Green Hold Sample in lab. [facility] Blood Venous Draw / Unknown 02/07/2021 3:03 PM EDT 02/07/2021 3:11 PM EDT Nuvia DIALLO CHEMISTRY ORDERABLE S [facility] [place] [address] * Gold Tube HOLD (02/07/2021 3:03 PM EDT) Gold Hold Sample in lab. [facility] Blood Venous Draw / Unknown 02/07/2021 3:03 PM EDT 02/07/2021 3:10 PM EDT Nuvia DIALLO CHEMISTRY ORDERABLE S [facility] [place] [address] * (ABNORMAL) Differential, Automated (02/07/2021 3:03 PM EDT) Neutrophil % 90.7 % [facility] Neutrophil Absolute 8.98(H) 1.70 - 6.10 x10(3)/[facility] Lymph % 3.1 % [facility] Lymphocytes Abs 0.3(L) 0.9 - 3.2 x10(3)/[facility] Monocyte % 5.2 % [facility] Monocyte Abs 0.5 0.3 - 0.9 x10(3)/[facility] Eos % 0.2 % [facility] Eosinophils Abs 0.0 0.0 - 0.4 x10(3)/[facility] Basophil % 0.5 % [facility] Baso Absolute 0.0 0.0 - [...] Immature Gran Absolute 0.03 0.00 - 0.04 x10(3)/[facility] Blood 02/07/2021 3:03 PM EDT 02/07/2021 3:08 PM EDT Narrative Resulting Agency Comment Spec In Lab Nuvia DIALLO HEMATOLOGY ORDERABL ES [facility] [place] [address] * (ABNORMAL) Hemogram (02/07/2021 3:03 PM EDT) White Blood Cell 9.9(H) 4.0 - 9.5 x10(3)/[facility] Red Blood Cell 4.77 4.00 - 5.21 x10(6)/[facility] Hemoglobin 13.8 11.7 - 15.5 gm/dL [...] HOSPITAL LABORATORY Platelet 170 145 - 357 x10(3)/[facility] RDW Standard Deviation 41.8 37.0 - 46.0 [facility] RDW coefficient of variation 12.9 11.5 - 14.1 % [facility] Mean Platelet Volume 11.2 7.6 - 12.9 [facility] NRBC% auto 0.0 % [facility] NRBC Absolute 0.000 0.000 - 0.000 x10(3)/[facility] Blood 02/07/2021 3:03 PM EDT 02/07/2021 3:08 PM EDT Narrative Resulting Agency Comment Spec In Lab Nuvia DIALLO HEMATOLOGY ORDERABL ES [facility] [place] [address] * (ABNORMAL) CRP, acute inflammation (02/07/2021 3:03 PM EDT) C-Reactive Protein >300.0(H) <=4.9 mg/L [facility] Blood 02/07/2021 3:03 PM EDT 02/07/2021 3:13 PM EDT Narrative Resulting Agency Comment Spec In Lab Kristian Colorado III, MD CHEMISTRY ORDERABL ES Performing Organization Address [facility]/ZIP Co de Phone Number [facility] [place] [address] * (ABNORMAL) Sedimentation rate (02/07/2021 3:03 PM [...] MD HEMATOLOGY ORDERAB LES Performing Organization Address [facility]/ZIP Co de Phone Number [facility] [place] [address] * (ABNORMAL) Basic Metabolic Panel (non-fasting) (02/07/2021 [...] ORDERABL ES [facility] [place] [address] documented in this encounter Visit Diagnoses Not [...] Oral, EVERY 8 HOURS PRN, Starting on Tue02/07/21 at 2159, Until Tue02/18/21 at 2107, Nausea, [...] Anita Sosa RN)1418 (Given - Provider: Cynthia Tadeo RN)2124 (Given - Provider: Juani Sanchez RN) 0551 (Given - Provider: Madeline Salomon, SUNIL)1315 (Given - Provider: Sherwin Hermosillo, SUNIL)2206 (Given - Provider: Elle Escalante, RN) 0539 (Given - Provider: Elle Escalante RN)1423 (Given - Provider: Kelsie Herbert, SUNIL) aspirin EC tablet 81 mg 81 mg, Oral, DAILY, First dose on 02/08/21 at 0900, Until Discontinued, Routine 0820 (Given - Provider: Cynthia Tadeo RN) 0847 (Given - Provider: Sherwin Hermosillo RN) 0847 (Given - Provider: Kelsie Herbert, SUNIL) buPROPion XL (Wellbutrin XL) tablet 150 mg 150 mg, Oral, EVERY MORNING, First dose on 02/08/21 at 0700, Until Discontinued, DO NOT CRUSH OR OPEN, Routine 0600 (Given - Provider: Anita Sosa RN) 0846 (Given - Provider: Sherwin Hermosillo RN) 0847 (Given - Provider: Kelsie Herbert, SUNIL) calcium carbonate (Tums) chewable tablet 1,250 [...] 2050 (New Bag - Provider: Elle Escalante, RN)2202 (Stopped - Provider: Elle Escalante RN) [...] on 02/07/21 at 2245, Until Discontinued, Routine 2012 (Given [...] on 02/07/21 at 2245, Until Discontinued, Routine 0819 (Given [...] Routine 0828 (Given - Provider: Cynthia Tadeo, SUNIL)1331 (Given - Provider: Cynthia Tadeo, SUNIL)1824 (Given - Provider: Cynthia Tadeo RN) 0800 [...] Provider: Cynthia Tadeo RN - Comment: bg 215)161 (Given - Provider: Cynthia Tadeo RN - Comment: bg 197)2012 (Given - Provider: Juani Sanchez RN) 0844 (Given - Provider: Sherwin Hermosillo RN)1239 (Given - Provider: Sherwin Hermosillo RN)163 (Given - Provider: Sherwin Hermosillo RN)2034 (Given - Provider: Elle Escalante RN) 0842 (Given - Provider: Kelsie Herbert RN)1215 (Given - Provider: Kelsie Herbert, SUNIL)160 (Given - Provider: Kelsie Herbert, SUNIL) levothyroxine (Synthroid) tablet 50 mcg 50 mcg, [...] Not Removed (add comment) - Provider: Elle Escalante, SUNIL - Comment: Patches never applied.) losartan (Cozaar) tablet 25 mg 25 mg, Oral, DAILY, First dose on 02/08/21 at 0900, Until Discontinued, Routine 0820 (Given - Provider: Cynthia Tadeo RN) 0847 (Given - Provider: Sherwin Hermosillo RN) 0847 (Given - Provider: Kelsie Herbert, SUNIL) multivitamin with minerals (THERA-M) tablet 1 tablet [...] RN) 0846 (Not Given - Provider: Kelsie Herbert, SUNIL - Reason: Patient/family refused) sertraline (Zoloft) tablet 200 mg 200 mg, Oral, DAILY, First dose on 02/08/21 at 0900, Until Discontinued, Routine 0821 (Given - Provider: Cynthia Tadeo RN) 0854 (Given - Provider: Sherwin Hermosillo, SUNIL) 0848 (Given - Provider: Kelsie Herbert RN) sodium chloride 0.9 % (flush) flush 5 mL 5 mL, Intravenous, 2 TIMES DAILY, First dose on 02/07/21 at 2245, Until Discontinued, Routine 0821 (Given - Provider: Cynthia Tadeo RN)2012 (Given - Provider: Juani Sanchez RN) 0848 (Given - Provider: Sherwin Hermosillo, SUNIL)2050 (Given - Provider: Elle Escalante, SUNIL) 0853 (Given - Provider: Kelsie Herbert, SUNIL) topiramate (Topamax) tablet 100 mg 100 mg, Oral, 2 TIMES DAILY, First dose on 02/07/21 at 2245, Until Discontinued, DO NOT SPLIT, CRUSH OR OPEN, Routine 0821 (Given - Provider: Cynthia Tadeo RN)2013 (Given - Provider: uJani Sanchez RN) 0845 (Given - Provider: Sherwin [...] Intravenous, ONCE PRN, 1 dose, Starting on Tue02/16/21 at 1549, Until Tue02/16/21 at 1549, Per [...] Oral, EVERY 4 HOURS PRN, Starting on Tu02/17/21 at 2348, Until Tue02/18/21 at 2107, Pain, [...] Anita Sosa RN)1153 (Given - Provider: Cynthia Tadeo RN)1824 (Given - Provider: Cynthia Tadeo, SUNIL)2359 (Given - Provider: Madeline Salomon, RN) 0551 [...] Escalante, SUNIL)0539 (Given - Provider: Elle Escalante, SUNIL) sodium chloride 0.9 % (flush) flush 5-20 [...] Oral, EVERY 4 HOURS PRN, Starting on e 02/17/21 at 2348, Until Tue02/18/21 at 210, Pain, severe pain (7-10), Initial dose 10mg. If pain control not adequate in 60 minutes, give additional 5mg, Routine documented in this encounter Care Teams Transformer Assembler Relationship Specialty Start Date End Date Maryuri Evans MD [address] [place] [address] PCP - General 09/23/14 documented as of this encounter
--- OUTSIDE RECORDS SUMMARY | 2024-05-31 17:46 | XMS_ITS | Encounter Summary ---
Author Organization [facility] Address [place] [id number] Care Team Providers Care Molecular Biology Scientist Name Role Phone Maryuri Evans MD Primary Care Provider [phone] Reason for Visit * Auth/Cert Specialty Diagnoses / Procedures Referred By Keith yung Referred To Contact Diagnoses Abscess of ankle Ankle abscess Procedures Emergency IPI Referral ID Status Reason Start Date Expiration Date Visits Re quested Visits Authorized [id number] 1 1 Encounter Details Date Type Department Care Team (Late st Contact Info) Description 02/12/2021 4:48 PM EDT Anesthesia Event [place] [address] [facility] [place] [address] [facility] [place] [address] Anesthesia Record Procedure Summary Procedure Name Responsible Anesthesiologist Anesthesia Start Time Anesthesia Stop Time DEBRIDEMENT SKIN AND SUBCU, LOWER EXTREMITY (WRVU 1.01) (Left: Leg) Edison Gamez MD 02/12/21 1648 02/12/21 1746 Events Date Time Event Comment 02/12/2021 1549 1648 AN Verify 1648 Start 1648 An Start Data 1656 An Induction 1658 An Intubation 1659 Anesthesia Ready 1700 Handoff Intra-procedure anesthesia care was transferred after review of the patient's history, current anesthetic/surgical status and procedural plan, anticipated issues and expected post-operative course (including disposition.) Edison Gamez MD 1723 Handoff Intra-procedure anesthesia care was transferred after review of the patient's history, current anesthetic/surgical status and procedural plan, anticipated issues and expected post-operative course (including disposition.) DEMETRIO VALERA CRNA 173 Extubation/LMA Out 174 an stop data 174 Recovery or ICU Handoff Adilene ent care was transferred to the destination unit staff after review of the patient's medical history, current anesthetic/surgical status and plan, according to the Provider Handoff Checklist. 1746 Stop Meds Name Total IV Lidocaine 60 mg Propofol 180 mg Ondansetron 8 mg Propofol INF 145.25 mg Lactated Ringers 400 mL * Agents Name O2 Air N2O [...] RN 03/13/21 0900 by Jeyson Armendariz (RETIRED) Peripheral IV Line - Single Lumen 02/11/21; 0255; basilic vein (medial side of arm), left; xfuh-ayf-ecyrev catheter system; Anatomical Landmarks; 22 gauge, 1 in length; gsr, rn vas; distraction, tolerated well, appears comfortable; 0; sore and phlebetic; site symptomatic, site care per policy/procedure, removed per policy/procedure, catheter/device intact; 02/13/21; 1545 02/11/21 0255 by Lisbeth Mar RN 02/13/21 1545 by Alejandra Rivas RN Supraglottic Mask Ventilation: Ea sy (1); LMA Type: iGel; LMA Size: 4; Inserted by: katlyn; Removal Date: 02/12/21; Removal Time: 173502/12/21 170 by Sri Shirley CRNA 02/12/21 1736 by Demetrio Valera CRNA (RETIRED) Peripheral IV Line - Single Lumen 02/12/21; 1707; [id number]-vqt-bphptb catheter system; 20 gauge; katlyn; Patient states it was removed earlier today; LDA not present upon assessment; 02/13/21; 1624 02/12/21 1707 by Sri Shirley CRNA 02/13/21 1624 by Alejandra Rivas RN documented in this encounter Social History [...] Postprocedure Evaluation - Edison Gamez MD - 02/12/2021 7:21 PM EDT Department of Anesthesiology Post-procedure Note Patient: Jesenia Méndez Procedure Summary Date: 02/12/21 Room / Location: [facility] OR [address] [place] [address] MAIN OR Anesthesia Start: 164 Anesthesia Stop: Procedures: DEBRIDEMENT SKIN AND SUBCU, LOWER EXTREMITY (WRVU 1.01) (Left Leg) MODIFIER WOUND VAC (Left ) Diagnosis: (left ankle postop wound) Surgeons: Sabrina Capellan MD Responsible Provider: Edison Gamez MD Anesthesia Type: regional ASA Status: 3 All Anesthesia Providers: Anesthesiologist: Edison Gamez MD; Shira Castrejon MD CARE ADVOCATE: Demetrio Valera CRNA; Sri Shirley CRNA Vitals Value Taken Time BP 126/54 02/12/21 1830 Temp 37 ??C (98.6 ??F) 02/12/21 1830 Pulse 85 02/12/21 1833 Resp 13 02/12/21 1833 SpO2 91 % 02/12/21 1834 Pain Level 2 02/12/21 1830 Vitals shown include unvalidated device data. Patient Location: PACU/[facility] Level of Consciousness: Conscious but Sleepy Pain Management: Satisfactory Analgesia PONV: None Cardiovascular Status: At Baseline Respiratory Status: Supplemental O2 (NC or FM) Postoperative Fluid Status: Intravascular EUvolemia Possible Anesthetic Complications: NONE apparent at time of evaluation Final Primary Anesthesia Type: General (The anesthetic type performed was the same as planned.) Comments: * Anesthesia Preprocedure Evaluation - Shira Castrejon MD - 02/12/2021 3:48 PM EDT Pre-Anesthesia Evaluation for: Jesenia Méndez a 60 y.o. female. Procedure(s): DEBRIDEMENT SKIN AND SUBCU, LOWER EXTREMITY (WRVU 1.01) MODIFIER WOUND VAC Patient Active Problem List Diagnosis ? ? [...] 4.06) performed by Wesley Jacobo MD at [facility] ? ? PRO DEBRIDEMENT SUBCUTANEOUS TISSUE 20 SQCM/< Left 02/08/2021 DEBRIDEMENT SKIN AND SUBCU, LOWER EXTREMITY (WRVU 1.01) performed by Henrry Quiñones MD at [facility] OR ? ? PRO DEBRIDEMENT SUBCUTANEOUS TISSUE 20 SQCM/< Left 02/10/2021 DEBRIDEMENT SKIN AND SUBCU, LOWER EXTREMITY (WRVU 1.01) performed by Jacobo De La Cruz MD at [facility] OR ??? PRO FUSION/GRAFT OF ELBOW JOINT Right 2017 ARTHRODESIS, ELBOW JOINT WITH AUTOGENOUS GRAFT (WRVU 14.32) performed by Christopher Correa MD at [facility] MAIN OR ??? PRO REMOVAL DEEP IMPLANT Right 2017 REMOVAL OF IMPLANT, DEEP, ELBOW (WRVU 5.96) performed by Christopher Correa MD at [facility] MAIN OR ??? PRO REMOVAL ERUPTED TOOTH WITH ELEVATION OF MUCOPERIOSTEAL FLAP Bilateral 09/11/2019 SURGICAL EXTRACTIONS REQUIRING ELEVATION OF MUCOPERIOSTEAL FLAP AND REMOVAL OF BONE OR SECTION OF TOOTH (WRVU 1.09) performed by Wesley Jacobo MD at [facility] Social History Tobacco Use ??? Smoking [...] REMOVE Please contact the Blood Bank at [phone] for questions. ??? Pollen Extracts Other (See Comments) Rhinusitus ??? Trazodone Other (See Comments) Hallucination ??? Adhesive Rash Skin Rash ??? Lisinopril Other (See Comments) Cough. Medications: MAR and/or home medications have been reviewed. Physical Exam: Preprocedure Vitals Current as of 02/12/21 1548 BP: 127/66 Pulse: Resp: 16 SpO2: 95 Temp: 36.9 ??C (98.4 ??F) Height: 157.5 cm (5' 2) (02/07/21) Weight: 83 kg (183 lb) (02/07/21) BMI: 33.47 IBW: 50.1 kg (110 lb 7.8 oz) Last edited 02/12/21 1540 by AB Airway Assessment: Mallampati: II Cardiovascular Assessment: Rhythm: regular Pulmonary Assessment: unlabored breathing Dental Assessment: Misc Assessment: Last Filed Perioperative Cognitive Screening None Anesthesia Plan: ASA 3 regional, with a(n) intravenous induction 60yo for repeat I&D of LLE for infxn. IDDM. Obesity. Prior EZ airway- iGel4, will plan the same. Region - Other Informed Consent: Plan discussed with CARE ADVOCATE and attending. Anesthesia Screening documented in this encounter Plan of Treatment Not on file documented as of this encounter Visit Diagnoses Not on filedocumented in this encounter Administered Medications Inactive Administered Medications - up to 3 most recent administrations Medication Order MAR Action Action Date Dose Rate Site lactated ringers infusion Intravenous, CONTINUOUS PRN, Starting on Priya 02/12/21 at 1648, Until Priya 02/12/21 at 1923, Anesthesia Intra-op New Bag 02/12/2021 4:48 PM EDT lidocaine (pf) (Xylocaine) (20 mg/mL) 2% injection syringe Intravenous, PRN, Starting on Priya 02/12/21 at 1656, Until Priya 02/12/21 at 1923, Anesthesia Intra-op, Routine Given 02/12/2021 4:56 PM EDT 60 mg ondansetron (pf) (Zofran) (2 mg/mL) injection Intravenous, PRN, Starting on Priya 02/12/21 at 1732, Until Priya 02/12/21 at 1923, Anesthesia Intra-op, Routine Given 02/12/2021 5:32 PM EDT 8 mg propofoL (Diprivan) 10 mg/mL bolus injection (Anesthesia) Intravenous, PRN, Starting on Priya 02/12/21 at 1656, Until Priya 02/12/21 at 1923, Anesthesia Intra-op Given 02/12/2021 5:10 PM EDT 30 mg Given 02/12/2021 4:58 PM EDT 50 mg Given 02/12/2021 4:56 PM EDT 100 mg propofoL (Diprivan) infusion Intravenous, CONTINUOUS PRN, Starting on Priya 02/12/21 at 1656, Until Priya 02/12/21 at 1923, Anesthesia Intra-op, Routine Rate/Dose Change 02/12/2021 4:58 PM EDT 50 mcg/kg/min 24.9 mL/hr New Bag 02/12/2021 4:56 PM EDT 200 mcg/kg/min 99.6 mL/h r documented in this encounter Care Teams Molecular Biology Scientist Relationship Specialty Start Date End Date Maryuri Evans MD [address] [place] [address] PCP - General 09/23/14 documented as of this encounter
--- OUTSIDE RECORDS SUMMARY | 2024-05-31 17:47 | XMS_ITS | Encounter Summary ---
[place] [address] Care Team Providers Care On Air Announcer Name Role Phone Maryuri Evans MD Primary Care Provider [phone] Reason for Visit * Reason Comments Cast Problem * Auth/Cert Specialty Diagnoses / Procedures Referred By Keith yung Referred To Contact Diagnoses Abscess of ankle Ankle abscess Procedures Emergency IPI Referral ID Status Reason Start Date Expiration Date Visits Re quested Visits Authorized [id number] 1 1 Encounter Details Date Type Department Care Team (Late st Contact Info) Description 02/10/2021 8:49 AM EDT - 02/10/2021 9:49 AM EDT [place] [id number] Jacobo De La Cruz MD [address] [place] [address] [place] [address] DEBRIDEMENT SKIN AND SUBCU, LOWER EXTREMITY (WRVU [...] Sign Reading Time Taken Comments Blood Pressure 145/73 02/10/2021 7:39 AM EDT Pulse 97 02/10/2021 7:39 AM EDT Temperature 37.3 ??C (99.1 ??F) 02/10/2021 7:39 AM ED T Respiratory Rate 16 02/10/2021 7:39 AM EDT Oxygen Saturation 95% 02/10/2021 7:39 AM EDT Inhaled Oxygen Concentration - - Weight 83 kg (183 lb) 02/07/2021 2:38 PM EDT Height 157.5 cm (5' 2) 02/07/2021 2:38 PM EDT Body Mass Index 33.47 02/07/2021 2:38 PM EDT documented in this encounter Discharge Summaries * Cami Ugarte APRN - 02/18/2021 7:40 AM EDT Discharge Summary Patient Name: Jesenia Méndez Patient Age: 60 y.o. Language: Hong Konger Race: White Ethnicity: Not nor Admit date: [...] please contact your inpatient physician through the [facility] School Examiner . Issues afterhours and on weekends will [...] internal fixation on January 21, 2021 at [facility] for left ankle fracture that [...] plate, and had cast exchange done at [facility] yesterday. She reported that her [...] questions please contact the health skin care therapist that requested your imaging first. Lower Extremity [...] questions please contact the health skin care therapist that requested your imaging first. Ankle Min [...] questions please contact the health skin care therapist that requested your imaging first. PICC Placement [...] questions please contact the health skin care therapist that requested your imaging first. Angiogram Lower [...] questions please contact the health skin care therapist that requested your imaging first. Pending Studies and Lab Data: None Discharge Conditions/Prognosis: Stable/fair Discharge to: Home w/ OPAT, VNA Updated Allergies/ADRs: Allergies Allergen Reactions ??? Latex Rash ??? Erythromycin Lactobionate Nausea Only ??? Metformin Nausea Only ??? Red Blood Cells Other (See Comments) Antibodies-Difficult to Crossmatch DO NOT REMOVE Please contact the Blood Bank at [phone] for questions. ??? Pollen Extracts Other (See [...] 0 Elizabeth Pen Needle 32 gauge x /32 Ndle USE 1 PEN NEEDLE ONCE DAILY [...] ankle needing wound vac, multiple debridements, and half-way IV antibiotics Specific instructions related to your [...] Center 03/05/2021 4:00 PM Cyndy Moran APRN [facility] ID 5C [facility] 03/20/2021 9:00 AM Juani Miller DO [facility] ID [address] [place] [address] 03/20/2021 1:00 PM CAST ROOM 3A [facility] ORTH [address] [place] [address] 03/20/2021 1:30 PM [facility] DX ROOM 3 Xray [facility] 03/20/2021 2:20 PM Dorina Campbell APRN [facility] ORTH [address] [place] [address] Your Inpatient Doctor: MARK CHAVEZ NAYLA MATHEW, ROBERT K Your Primary Care Provider: Maryuri Evans MD For questions regarding this document or issues relating to this hospitalization on the Medical Service, please contact your inpatient physician through the [facility] School Examiner . Issues afterhours and on weekends will be handled by the Hospitalist staff on-call. General Instructions None Future Appointments and Orders Future Appointments and Orders Future Appointments Provider Department Dept Phone 03/05/2021 4:00 PM Cyndy Moran APRN Infectious Disease at [facility] Arrive at: Roller Machine Operator Area [phone] 03/20/2021 9:00 AM Juani Miller DO Infectious Disease at [facility] Arrive at: [facility] Area [phone] 03/20/2021 1:00 PM CAST ROOM 3A Orthopaedics at [facility] Arrive at: [facility] Area 3A [phone] 03/20/2021 1:30 PM [facility] DX ROOM 3 XRay at [facility] Arrive at: [facility] Operator Area [phone] Please go to [facility] Area 3T ([place] Location). 03/20/2021 2:20 PM Dorina Campbell APRN Orthopaedics at [facility] Arrive at: Rol[facility] Machine Operator Area 3A [phone] Future Orders Complete By Expires Full code [...] Recommendation for Post Discharge IV Antibiotic Management [OEK139 CPT(R)] As directed Process Instructions: If no progress note charted, please enter Clinical details in comments. Scheduling Instructions: Comments: Please Fax all results to: OPAT Program Infectious Disease Section [facility], [place] [address] FAX: After hours, please contact the Infectious Disease Physician health concierge at . If this order was signed greater than 72 hours prior to [facility] discharge, please call to confirm the accuracy [...] Saline then 3 ml heparin (10 units/ml) retirement for medication administration/debone supervisor and catheter care/maintenance authorized. PICC Dressing [...] Tuesday and PRN and fax results to [facility] at [phone]. Please see OPAT order for lab draw [...] Referral to Home Health - at DISCHARGE [RWR8815 CPT(R)] As directed Process Instructions: Scheduling Instructions: Comments: DOCUMENTATION FOR VNA SERVICES (INCLUDING THOSE PATIENTS WITH MEDICARE COVERAGE REQUIRING HOME VNA SERVICES AND/OR HOSPICE SERVICES) PATIENT'S LOCATION: Jesenia Méndez [address] [facility] [address] Snake Charmer's Name: Patient & family In discussion with the attending physician, it is certified that this patient is under their care and that they, or a Nurse Practitioner,Clinical Nurse specialist or Physician Chief Technology Officer who is working directly with them, had [...] assess and continue rehab for managing ADL's. HOT SAW HELPER: assist with ADLs as directed by RN HOME HEALTH CARE AGENCY: [facility] PHONE: [phone] FAX: [phone] Start of care: 24-48 hours of discharge Please note that any additional orders needs or changes will need to be obtained from this patient's PCP: Maryuri Evans MD [address] / [place] [phone] All VNA agencies which cover the area of patient's residence have been reviewed, either verbally jeaneth writing, and patient/family have chosen the home health care agency noted Questions: Agency name and contact information: [facility] Patient location post discharge: Home What services are requested: Registered Nurse Physical Therapy Occupational Therapy Home Health Aide Start date: Responsible MD post discharge contact info: PCP Harinder rolling [EQ134 Custom] As directed Process Instructions: Scheduling Instructions: Comments: Jesenia Méndez [address] [facility] [address] [place] [phone] Diagnosis: Left ankle I&D for abscess and [...] ORIF (Open Reduction With Internal Fixation): Post-op (Hong [place]er) documented in this encounter Discharge Instructions * Patient Instructions* Cami Ugarte APRN - 02/18/2021 2:50 PM EDT Instructions on Discharge to Home Why you were hospitalized: infected hardware of L ankle needing wound vac, multiple debridements, and termite treater IV antibiotics Specific instructions related to your [...] Center 03/05/2021 4:00 PM Cyndy Moran APRN [facility] ID 5C [facility] 03/20/2021 9:00 AM Juani Miller DO [facility] ID 5C [facility] 03/20/2021 1:00 PM CAST ROOM 3A [facility] ORTH 3A [facility] 03/20/2021 1:30 PM [facility] DX ROOM 3 MH Xray [facility] Rad 03/20/2021 2:20 PM Dorina Campbell APRN [facility] ORTH 3A [facility] Your Inpatient Doctor: MARK CHAVEZ NAYLA MATHEW, ROBERT K Your Primary Care Provider: Maryuri Evans MD For questions regarding this document or issues relating to this hospitalization on the Medical Service, please contact your inpatient physician through the [facility] School Examiner . Issues afterhours and on weekends will be handled by the Hospitalist staff on-call. * Attachments The following attachments cannot be sent through Care Everywhere. * ORIF (Open Reduction With Internal Fixation): Post-op (H[place]er) documented in this encounter Medications at Time [...] Plan for discharge is: Agency Referrals: 1. [facility]- ref done & order [...] Insurance: N/A Prescription Coverage: YES Preferred Pharmacy: [facility] [place], [place] - [address] [place] [id number] This plan was formulated with input from patient, father and team. All are in agreement with plan. Jacqui Lo RN Case Retail Merchandising Specialist of Care Management Pager: [phone] Ext: [phone] * Jacqui Lo RN - 02/18/2021 4:00 PM EDTSummary: CM Progress Note Computer Science Professor asking RS to please place referral to: Ortho Care Located @ [facility] Center [place], [place] Patient needs a walker with a right platform. Jacqui Lo RN, BSN, MST, ACM Roof Tiler pager#[phone] * Kalyani Dotson RN - 02/18/2021 3:15 PM EDTSummary: OPAT teach Infectious Disease/OPAT Program Teaching Visit Met with patient and her father at the bedside to discuss discharge on IV ABX. Patient was engaged in listening to the education; the father only listened to part of it. Patient verbally agrees to the personal responsibilities, and role of the HOT SAW HELPER, of being in the OPAT program although the primary team has concerns about follow-through/compliance with medical care. This RN discussed with [facility] liasonwilliam Lundberg & Anton about further assessing follow-through with care during their teach with the patient (I.e. physically have patient practice flushing an IV line). Patient given and reviewed OPAT package including OPAT order, PICC line care including dressing changes and labs both weekly & prn, potential issues, what they might indicate and who to contact. Reviewed roles and responsibilities of HOT SAW HELPER and infusion vendor. Contact information for ID and ortho team/clinic, HOT SAW HELPER and infusion vendor given to pt. Discussed f/u appointments in ID 5C clinic. Pt verbalized understanding. All questions answered. IV & PO ABX Medications: Daptomycin 700mg IV Q24h HOT SAW HELPER: [facility] Infusion vendor: [facility] IV Access: PICC (single lumen) Placed: 02/14 Plan: discharge on OPAT program when medically ready. * Mable Brooks OTA - 02/18/2021 1:14 PM EDT Occupational Therapy Treatment Note Treatment Number OT: 3 Patient Dx: ?? Patient Dx: Jesenia Méndez??is a 60 y.o.?female??with??PMH significant for ID T2DM, R elbow fusion with serial casting, and L ankle fracture S/P ORIF at [facility] (01/21/21)??who presented to the ED for??RUE [...] 4.06) performed by Wesley Jacobo MD at [facility] ? ? PRO DEBRIDEMENT SUBCUTANEOUS TISSUE 20 SQCM/< Left 02/08/2021 ?? DEBRIDEMENT SKIN AND SUBCU, ??LOWER EXTREMITY (WRVU 1.01) performed by Henrry Quiñones MD [facility] MAIN OR ??? PRO FUSION/GRAFT OF ELBOW JOINT Right 2017 ?? ARTHRODESIS, ELBOW JOINT WITH AUTOGENOUS GRAFT (WRVU 14.32) performed by Christopher Correa MD at [facility] MAIN OR ??? PRO REMOVAL DEEP IMPLANT Right 2017 ?? REMOVAL OF IMPLANT, DEEP, ELBOW (WRVU 5.96) performed by Christopher Correa MD at [facility] MAIN OR ??? PRO REMOVAL ERUPTED TOOTH WITH ELEVATION OF MUCOPERIOSTEAL FLAP Bilateral 09/11/2019 ?? SURGICAL EXTRACTIONS REQUIRING ELEVATION OF MUCOPERIOSTEAL FLAP AND REMOVAL OF BONE OR SECTION OF TOOTH (WRVU 1.09) performed by Wesley Jacobo MD at [facility] ?? Social History: Patient lives??with [...] Total Minutes, Occupational Therapy: 16 (Schmx1) Pager: [phone] MARIE Thomas 02/18/2021 Occupational Therapy Rehabilitation Department * Jacqui Lo RN - 02/18/2021 10:13 AM EDTSumcorrine: SHANTAL Progress Note OFFICE OF CARE MANAGEMENT ?? Roof Tiler Follow-up Note ?? S/O: Discussed plan of [...] drainage after having ORIF on 01/21/2021 at [facility]. CT of the ankle showed LLEcellulitis with small abscess at the lateral malleolus.? Current referrals in place: 1. [facility]- ref done & order pended 2. [facility]- ref done- waiting on OPAT orders- Daptomycin daily 3. [facility]- patient will require a wound vac at discharge. Computer Science Professor working with Michael @ [facility] to get this approved. ?? A: Patient medical ready for discharge home with VNA and IVABX from [facility] with support of family. Patient declining to go to rehab and insists upon going home. Team is providing as much education as possible to patient to assure that she understands her needs and follows the plan for optimal recovery. ?? P:Roof Tiler to follow with team and family to assist with discharge needs when patient ready fordischarge. ?? Jacqui Lo RN, Roof Tiler Pager #[phone] * Yunior Rodriguez DO - 02/18/2021 7:39 AM EDT HOSPITAL MEDICINE ATTENDING DAY OF DISCHARGE NOTE Patient Jesenia Méndez 1960 [id number] Physician Yunior Rodriguez DO Pager: [phone] Hospitalist Encounter Date February 19, 2021 PCP Maryuri Evans MD PCP phone [phone] Discharge diagnosis Active Hospital Problems Diagnosis ? [...] of amputation if antibiotics not completed and myi-lhfnfl-hprcwcf status maintained. This risk explained to patient and father before discharge. I have personally seen and examined the patient and they are ready for discharge. I spent >30 minutes (Day of Discharge Code 77117) involved in the final examination of the patient, discussion of the hospital stay, instructions for continuing care to all relevant caregivers, and preparation of discharge records, prescriptions and referral forms. Plans Discharge to home with VNA Follow-up scheduled with Future Appointments Date Time Provider Department Center 03/02/2021 3:00 PM Aydee Franklin MD [facility] PLAS 4M [facility] 03/05/2021 4:00 PM Cyndy Moran APRN [facility] ID 5C [facility] 03/20/2021 9:00 AM Juani Miller DO [facility] ID 5C [facility] 03/20/2021 1:00 PM CAST ROOM 3A [facility] ORTH 3A [facility] 03/20/2021 1:30 PM [facility] DX ROOM 3 MH Xray [facility] Rad 03/20/2021 2:20 PM Dorina Campbell APRN [facility] ORTH [address] [place] [address] Please see the Discharge Summary for complete details of any medication changes and additional plans. Yunior Rodriguez DO Pager: [phone] February 19, 2021 9:54 PM * Ruben [...] Follow-up: Pending hospital course Ruben Damian MD P.[phone] Associated attestation - Sabrina Capellan MD - [...] UP NOTE Patient ID: Jesenia Méndez Room: 104/104-B Active ID Issue(s): Post-op hardware infection s/p [...] a history of ORIF left ankle at [facility] on 01/21/21 complicated by skin/soft tissue [...] the patient today. Delfina Harris MD Page [phone] All of this 25 minute visit were spent on the floor/unit in coordination of care for the patient, regarding treatment of infection as detailed in note above. * Jacqui Lo RN - 02/17/2021 4:22 PM EDTSumcorrine: SHANTAL Progress Note OFFICE OF CARE MANAGEMENT Roof Tiler Follow-up Note S/O: Discussed plan of care [...] drainage after having ORIF on 01/21/2021 at [facility]. CT of the ankle showed LLE [...] (end 03/26). Current referrals in place: 1. [facility]- ref done & order pended 2. [facility]- ref done- waiting on OPAT orders 3. [facility]- patient will require a wound vac at discharge. A: Patient nearing medical readiness for discharge home with [place]ABX from [place] with support of family. P:Roof Tiler to follow with team and family to assist with discharge needs when patient ready fordischarge. Jacqui Lo RN, Roof Tiler Pager #[phone] * Anthony Fermin MD - 02/17/2021 10:57 [...] Department of Orthopaedics 02/18/21 * Cami Ugarte, DANDY OPERATOR - 02/17/2021 8:36 AM EDT Hospital Medicine [...] purulent drainageafter having ORIF on 01/21/2021 at [facility]. CT of the ankle showed LLE [...] cellulitis and abscess: -Following recent ORIF at [facility] s/p mechanical fall w/ fracture -Reported [...] GI prophylaxis Home ppi DVT prophylaxis Lovenox PT/OT/PROCUREMENT OFFICER PT/OT Wound Care Anticipated Disposition TBD Code Status Attempt Cardiopulmonary Resuscitation - Inpatient Team Pager ( coverage 14/03) [phone] PCP Maryuri Evans MD Family Update Family [...] questions please contact the health skin care therapist that requested your imaging first. Lower Extremity [...] questions please contact the health skin care therapist that requested your imaging first. Ankle Min [...] questions please contact the health skin care therapist that requested your imaging first. PICC Placement [...] questions please contact the health skin care therapist that requested your imaging first. Angiogram Lower [...] questions please contact the health skin care therapist that requested your imaging first. Other studies/procedures: [...] Follow-up: Pending hospital course Ruben Damian MD P.[phone] Associated attestation - Sabrina Capelaln MD - 02/18/2021 6:41 AM EDT Patient [...] status LLE/RUE. Will continue to follow. Pager: [phone] MARIE Thomas 02/16/2021 Occupational Therapy Rehabilitation Department [...] ??? Psoriasis Interval History: - NPO at [place] tonight for OR tomorrow--possible abx spacer vs [...] purulent drainageafter having ORIF on 01/21/2021 at [facility]. CT of the ankle showed LLE [...] cellulitis and abscess: -Following recent ORIF at [facility] s/p mechanical fall w/ fracture -Reported [...] GI prophylaxis Home ppi DVT prophylaxis Lovenox PT/OT/PROCUREMENT OFFICER PT/OT Wound Care Anticipated Disposition TBD Code Status Attempt Cardiopulmonary Resuscitation - Inpatient Team Pager ( coverage 14/03) [phone] PCP Maryuri Evans MD Family Update Family [...] questions please contact the health skin care therapist that requested your imaging first. Lower Extremity [...] questions please contact the health skin care therapist that requested your imaging first. Ankle Min [...] questions please contact the health skin care therapist that requested your imaging first. PICC Placement [...] questions please contact the health skin care therapist that requested your imaging first. Other studies/procedures: [...] Follow-up: Pending hospital course Ruben Damian MD P.[phone] Associated attestation - Sabrina Capellan MD - [...] consulted in the interim. EARL Campo Pager: [phone] * Adalberto Mckeon PA - 02/15/2021 2:17 [...] purulent drainageafter having ORIF on 01/21/2021 at [facility]. CT of the ankle showed LLE [...] cellulitis and abscess: -Following recent ORIF at [facility] s/p mechanical fall w/ fracture -Reported [...] GI prophylaxis Home ppi DVT prophylaxis Lovenox PT/OT/PROCUREMENT OFFICER PT/OT Wound Care Anticipated Disposition TBD Code Status Attempt Cardiopulmonary Resuscitation - Inpatient Team Pager ( coverage 14/03) [phone] PCP Maryuri Evans MD Family Update Family [...] questions please contact the health skin care therapist that requested your imaging first. Lower Extremity [...] questions please contact the health skin care therapist that requested your imaging first. Ankle Min [...] questions please contact the health skin care therapist that requested your imaging first. PICC Placement [...] questions please contact the health skin care therapist that requested your imaging first. Other studies/procedures: [...] Follow-up: Pending hospital course Seth Yarbrough MD P.[phone] Associated attestation - Sabrina Capellan MD - [...] Center 03/20/2021 1:00 PM CAST ROOM 3A [facility] ORTH 3A [facility] 03/20/2021 1:30 PM [facility] DX ROOM 3 Xray [facility] Rad 03/20/2021 2:20 PM Dorina Campbell APRN [facility] ORTH [address] [place] [address] Associated attestation - Sabrina Capellan MD - [...] new organisms identified. Micro: Abscess/Wound Aspirate Culture [[id number]] (Abnormal) Collected: 02/08/21 1030 Lab Status: Final [...] Mckeon PA - 02/14/2021 2:21 PM EDT [facility] Medicine Daily Progress Note Admit Date: [...] purulent drainageafter having ORIF on 01/21/2021 at [facility]. CT of the ankle showed LLE cellulitis with small abscess at the lateral malleolus. Plan for patient to go back to OR today for I&D and wound vac change. ID discussing appropriateness for transition to daptomycin vs. Nafcillin (in setting of MSSA & enterococcus). PICC placedyesterday due to access issues. #LLE MSSA & Enterococcus cellulitis and abscess: -Following recent ORIF at [facility] s/p mechanical fall w/ fracture -Reported [...] GI prophylaxis Home ppi DVT prophylaxis Lovenox PT/OT/PROCUREMENT OFFICER PT/OT Wound Care Anticipated Disposition TBD Code [...] questions please contact the health skin care therapist that requested your imaging first. Lower Extremity [...] questions please contact the health skin care therapist that requested your imaging first. Ankle Min [...] questions please contact the health skin care therapist that requested your imaging first. PICC Placement [...] questions please contact the health skin care therapist that requested your imaging first. Other studies/procedures: [...] to commode. Will continue to follow. Pager: [phone] MARIE Thomas 02/13/2021 Occupational Therapy Rehabilitation Department [...] purulent drainageafter having ORIF on 01/21/2021 at [facility]. CT of the ankle showed LLE cellulitis with small abscess at the lateral malleolus. Patient remains with wound vac in place. Possibility of going back to the OR tomorrow. Will eventually need closure, but may not happen until next week. Prior to discharge, the patient will require [facility] line for long-term antibiotics. Patient is very concerned about leaving her father at home right now and is anxious to get home. Patient has been aware that she is non-weight bearing on the affected lower extremity. #LLE cellulitis and abscess: -Following recent ORIF at [facility] s/p mechanical fall w/ fracture -Reported [...] GI prophylaxis Home ppi DVT prophylaxis Lovenox PT/OT/PROCUREMENT OFFICER PT/OT Wound Care Anticipated Disposition TBD Code [...] questions please contact the health skin care therapist that requested your imaging first. Lower Extremity [...] questions please contact the health skin care therapist that requested your imaging first. Other studies/procedures: Procedure(s): DEBRIDEMENT SKIN AND SUBCU, LOWER EXTREMITY (WRVU 1.01) IMANI [place] 02/13/2021 * Jacqui Lo RN - 02/13/2021 2:01 PM EDTSumcorrine: SHANTAL Progress Note IDR Rounds: Per provider: Patient not medically ready for discharge till next week. Patient likely to go home with IVABX and VNA services with support of family. Services: 1.?[facility] ?? PHONE: [phone] FAX: [phone] 2.[facility] ?[place] or ? 3.?Name: [employer] Tel.#: ext [phone] fax#: Equipment ordered:wound vac Transport: family A member of the Care Management team will continue to monitor progress, follow for continuity of care and assist with transition of care planning. Jacqui Lo RN, BSN, MST, ACM Roof Tiler pager#[phone] * Nilton Nicole MD - 02/13/2021 5:43 [...] SHANTAL Progress Note OFFICE OF CARE MANAGEMENT Roof Tiler Follow-up Note S/O: Discussed plan of care [...] s/p bivalve Current referrals in place: 1. [facility] [place] [facility] PHONE: [phone] FAX: [phone] 2.[place], [place] or 3. Name: GABRIELE Tel.#:[phone] ext [phone] fax#: Equipment ordered:wound vac Computer Science Professor asking RS to please place referral to: [place], [place] or A: Patient is nearing medical readiness for discharge if Ortho is able to close her wound and her cultures come back negative so a PICC line can be placed for IVABX at discharge. Patient likely medically ready for discharge over the weekend. P:Roof Tiler to follow with team and family to assist with discharge needs when patient ready fordischarge. Jacqui Lo RN, Roof Tiler Pager #[phone] * Cami Ugarte, DANDY OPERATOR - 02/12/2021 8:19 AM EDT Hospital Medicine [...] purulent drainageafter having ORIF on 01/21/2021 at [facility]. CT of the ankle showed LLE [...] cellulitis and abscess: -Following recent ORIF at [facility] s/p mechanical fall w/ fracture -Reported [...] GI prophylaxis Home ppi DVT prophylaxis Lovenox PT/OT/PROCUREMENT OFFICER PT/OT Wound Care Anticipated Disposition TBD Code [...] questions please contact the health skin care therapist that requested your imaging first. Lower Extremity [...] questions please contact the health skin care therapist that requested your imaging first. Other studies/procedures: [...] Center 03/20/2021 1:00 PM CAST ROOM 3A [facility] [address] [place] [address] 03/20/2021 1:30 PM [facility] DX ROOM 3 MH Xray [facility] Rad 03/20/2021 2:20 PM Dorina Campbell, SREE [facility] [address] [place] [address] * Yamilex Ruiz, INTRANET SPECIALIST - 02/11/2021 2:33 PM EDT Physical Therapy Note Treatment Number PT: 2 Patient profile: Jesenia Méndez??is a 60 y.o.??female??with PMH significant for ID T2DM, R elbow fusion with serial casting, and L ankle fracture S/P ORIF at [facility] (01/21/21)??who presented to the ED for??RUE [...] Location At rest 10/01 ankle With activity / ankle Vital Signs: Stable Bed Mobility: up [...] Time in 14:18-14:28) YAMILEX RUIZ PTA Pager: [phone] Physical Therapy Inpatient Rehabilitation Department * Dali Guerrier, DANDY OPERATOR - 02/11/2021 1:48 PM EDT Hospital Medicine [...] purulent drainageafter having ORIF on 01/21/2021 at [facility]. CT of the ankle showed LLE [...] cellulitis and abscess: -Following recent ORIF at [facility] s/p mechanical fall w/ fracture -Reported [...] GI prophylaxis Home ppr DVT prophylaxis Lovenox PT/OT/PROCUREMENT OFFICER PT/OT Wound Care Anticipated Disposition TBD Code Status Attempt Cardiopulmonary Resuscitation - Inpatient Team Pager ( coverage 14/03) [phone] PCP Maryuri Evans MD [...] questions please contact the health skin care therapist that requested your imaging first. Lower Extremity [...] questions please contact the health skin care therapist that requested your imaging first. Other studies/procedures: [...] L ankle fracture S/P ORIF at [facility] (01/21/21)??who presented to the ED for??RUE [...] 4.06) performed by Wesley Jacobo MD at [facility] OSC ? ? PRO DEBRIDEMENT SUBCUTANEOUS TISSUE 20 SQCM/< Left 02/08/2021 ?? DEBRIDEMENT SKIN AND SUBCU, LOWER EXTREMITY (WRVU 1.01) performed by Henrry Quiñones MD at [facility] MAIN OR ??? PRO FUSION/GRAFT OF ELBOW JOINT Right 2017 ?? ARTHRODESIS, ELBOW JOINT WITH AUTOGENOUS GRAFT (WRVU 14.32) performed by Christopher Correa MD at [facility] MAIN OR ??? PRO REMOVAL DEEP IMPLANT Right 2017 ?? REMOVAL OF IMPLANT, DEEP, ELBOW (WRVU 5.96) performed by Christopher Correa MD at [facility] MAIN OR ??? PRO REMOVAL ERUPTED TOOTH WITH ELEVATION OF MUCOPERIOSTEAL FLAP Bilateral 09/11/2019 ?? SURGICAL EXTRACTIONS REQUIRING ELEVATION OF MUCOPERIOSTEAL FLAP AND REMOVAL OF BONE OR SECTION OF TOOTH (WRVU 1.09) performed by Wesley Jacobo MD at [facility] Social History: Patient lives with [...] Total Minutes, Occupational Therapy: 30 (Schmx2) Pager: [phone] MARIE Thomas 02/11/2021 Occupational Therapy Rehabilitation Department * Nilton Nicole MD - 02/11/2021 5:54 AM EDT [facility] SURGERY INPATIENT PROGRESS NOTE Patient Name: [...] Center 03/20/2021 1:00 PM CAST ROOM 3A [facility] 3A [facility] 03/20/2021 1:30 PM [facility] DX ROOM 3 MH Xray [facility] Rad 03/20/2021 2:20 PM Dorina Campbell APRN [facility] 3A [facility] * Dali Guerrier APRN - 02/10/2021 3:40 [...] purulent drainageafter having ORIF on 01/21/2021 at [facility]. CT of the ankle showed LLE [...] cellulitis and abscess: -Following recent ORIF at [facility] s/p mechanical fall w/ fracture -Reported [...] GI prophylaxis Home ppr DVT prophylaxis Lovenox PT/OT/PROCUREMENT OFFICER PT/OT Wound Care Anticipated Disposition TBD Code [...] questions please contact the health skin care therapist that requested your imaging first. Lower Extremity [...] questions please contact the health skin care therapist that requested your imaging first. Other studies/procedures: Procedure(s): DEBRIDEMENT SKIN AND SUBCU, LOWER EXTREMITY (WRVU 1.01) Dali Guerrier APRN 02/10/2021 * BlasToño MD - 02/10/2021 3:37 PM EDT [facility] SURGERY INPATIENT PROGRESS NOTE Patient Name: [...] Center 03/20/2021 1:00 PM CAST ROOM 3A [facility] 3A [facility] 03/20/2021 1:30 PM [facility] DX ROOM 3 Xray [facility] Rad 03/20/2021 2:20 PM Dorina Campbell APRN [facility] [address] [place] [address] * Jacqui Lo RN - 02/10/2021 3:27 PM EDTSummary: SHANTAL Progress Note OFFICE OF CARE MANAGEMENT Roof Tiler Follow-up Note S/O: Discussed plan of care [...] w/ possible closure, please keep NPO. The patient/benefits representative has been provided a list of Home Health Agencies/DME vendors which servetheir preferred geographic area. A letter describing our affiliations was reviewed with them and they were educated about their right to choose where referrals are placed. Patient requests referral to: 1. [facility]. PHONE: [phone] FAX: [phone] 2.[place], [place] or 3. Name: GABRIELE Tel.#: ext [phone] fax#: Equipment ordered:wound vac Expected date of discharge: 02/13?. Referral routed to the Customizer for matching with agency/vendor and to provide any required information. Patient lives with her father, son, DIL so she has someone available to assist her. Patient states that there is plenty of people to help her. A: Patient not medically ready for discharge. P:Roof Tiler to follow with team and family to assist with discharge needs when patient ready fordischarge. Jacqui Lo RN, Roof Tiler Pager #[phone] * Christy Huang RN - 02/10/2021 10:49 [...] appropriate/able. Delfina Marr, OTR/L Inpatient Rehab Pager: [phone] * Seth Yarbrough MD - 02/10/2021 5:54 [...] Intake/Output Summary (Last 24 hours) at 02/10/2021 0536 Last data filed at 02/10/2021 0434 Gross [...] Center 03/20/2021 1:00 PM CAST ROOM 3A [facility] [address] [place] [address] 03/20/2021 1:30 PM MH DX ROOM 3 MH Xray [facility] Rad 03/20/2021 2:20 PM Dorina Campbell, DANDY OPERATOR [facility] [address] [place] [address] * Anita Sosa RN - 02/10/2021 5:38 [...] CPG GOAL OUTCOME EVALUATION: * Dali Guerrier, SREE - 02/09/2021 2:39 PM EDT Hospital Medicine [...] purulent drainageafter having ORIF on 01/21/2021 at [facility]. CT of the ankle showed LLE cellulitis with small abscess at the lateral malleolus. OR planned for 02/10. Patient continues with wound vac to RLE. She endorses some increasing pain wound vac site. Pain relieved with PRN oxycodone. Patient remains hemodynamically stable. Continues on vancomycin. ?? #LLE cellulitis and abscess: -Following recent ORIF at [facility] s/p mechanical fall w/ fracture -Reported [...] GI prophylaxis Home ppr DVT prophylaxis Lovenox PT/OT/PROCUREMENT OFFICER PT/OT Wound Care Anticipated Disposition TBD Code [...] questions please contact the health skin care therapist that requested your imaging first. Lower Extremity [...] questions please contact the health skin care therapist that requested your imaging first. Other studies/procedures: [...] of two midnights or is on the [facility] inpatient only procedure list (status C) [...] L ankle fracture S/P ORIF at [facility] (01/21/21) who presented to the ED [...] 4.06) performed by Wesley Jacobo MD at [facility] ? ? PRO DEBRIDEMENT SUBCUTANEOUS TISSUE 20 SQCM/< Left 02/08/2021 DEBRIDEMENT SKIN AND SUBCU, LOWER EXTREMITY (WRVU 1.01) [facility] ??? PRO FUSION/GRAFT OF ELBOW JOINT Right 2017 ARTHRODESIS, ELBOW JOINT WITH AUTOGENOUS GRAFT (WRVU 14.32) performed by Christopher Correa MD at [facility] MAIN OR ??? PRO REMOVAL DEEP IMPLANT Right 2017 REMOVAL OF IMPLANT, DEEP, ELBOW (WRVU 5.96) performed by Christopher Correa MD at [facility] MAIN OR ??? PRO REMOVAL ERUPTED TOOTH WITH ELEVATION OF MUCOPERIOSTEAL FLAP Bilateral 09/11/2019 SURGICAL EXTRACTIONS REQUIRING ELEVATION OF MUCOPERIOSTEAL FLAP AND REMOVAL OF BONE OR SECTION OF TOOTH (WRVU 1.09) performed by Wesley Jacobo MD at [facility] Social History: Lives with her [...] evaluation and TEF CLEMENTINE SANCHEZ, PT Pager: [phone] Physical Therapy Inpatient Rehabilitation Department * Nilton [...] Center 03/20/2021 1:00 PM CAST ROOM 3A [facility] 3A [facility] 03/20/2021 1:30 PM [facility] DX ROOM 3 Xray [facility] Rad 03/20/2021 2:20 PM Dorina Campbell APRN [facility] [address] [place] [address] * Toño Odonnell MD - 02/08/2021 4:21 [...] Center 03/20/2021 1:00 PM CAST ROOM 3A [facility] 3A [facility] 03/20/2021 1:30 PM MH DX ROOM 3 MH Xray [facility] Rad 03/20/2021 2:20 PM Dorina Campbell APRN [facility] [address] [place] [address] * Selina Ramirez RN - 02/08/2021 1:57 PM EDTSummary: [facility] OCM: VNA/vendor choice The patient/benefits representative has been provided a list of Home Health Agencies/DME vendors which servetheir preferred geographic area. Patient lives in [facility] covered only by [facility]. She had been referred to this agency in the past. There would be no other VNA choices. N/A: A letter describing our affiliations was reviewed with them and they were educated about theirright to choose where referrals are placed. Discussed [facility] Star Quality Rating for Home care report. Patient requests referral to [facility] [email or web address] [facility] PHONE: [phone] FAX: [phone]. Expected date of discharge: 3-5 days. Referral routed to the Customizer for matching with agency/vendor and to provide any required information. Selina Ramirez [facility] W/E civil engineering drafter Pager: [phone] * Ingrid Yañez RN - 02/08/2021 10:48 [...] to RN on 1W. * Cami Ugarte, DANDY OPERATOR - 02/08/2021 7:39 AM EDT [facility] Medicine Daily Progress Note Admit Date: [...] purulent drainageafter having ORIF on 01/21/2021 at [facility]. CT of the ankle showed LLE [...] cellulitis and abscess: -Following recent ORIF at [facility] s/p mechanical fall w/ fracture -Reported [...] GI prophylaxis Home ppr DVT prophylaxis Lovenox PT/OT/PROCUREMENT OFFICER PT/OT Wound Care Anticipated Disposition TBD Code Status Attempt Cardiopulmonary Resuscitation - Inpatient Team Pager (MD coverage 14/03) [phone] PCP Maryuri Evans MD Family Update Family [...] questions please contact the health skin care therapist that requested your imaging first. Lower Extremity [...] questions please contact the health skin care therapist that requested your imaging first. Other studies/procedures: [...] of two midnights or is on the [facility] inpatient only procedure list (status C) [...] ground level mechanical falls who presented to [facility] ED from home with drainage from LT [...] Center 03/20/2021 1:00 PM CAST ROOM 3A [facility] 3A [facility] 03/20/2021 1:30 PM [facility] DX ROOM 3 MH Xray [facility] Rad 03/20/2021 2:20 PM Dorina Campbell APRN [facility] [address] [place] [address] Associated attestation - Henrry Quiñones MD - [...] of a left ankle fracture at the [facility]. She presented in follow-up for a fracture [...] I agree with them as documented. Micaela Capellna MD Department of Orthopaedics 02/15/2021 * Seth [...] Psoriasis ID: 60 y.o. Female presents to [facility] with left ankle pain and drainage. History of Present Illness: STEVO Méndez is a 60 y.o. female with past medical history of diabetes, hypothyroidism, depression, psoriasis, chronic headaches, presenting with complaints of left ankle swelling, pain and purulent drainage. Ms Méndez recently underwent open reduction and internal fixation on January 21, 2021 at [facility] for left ankle fracture that [...] plate, and had cast exchange done at [facility] yesterday. She reported that her [...] 4.06) performed by Wesley Jacobo MD at [facility] O[facility] ??? PRO FUSION/GRAFT OF ELBOW JOINT Right 2017 ARTHRODESIS, ELBOW JOINT WITH AUTOGENOUS GRAFT (WRVU 14.32) performed by Christopher Correa MD at [facility] MAIN OR ??? PRO REMOVAL DEEP IMPLANT Right 2017 REMOVAL OF IMPLANT, DEEP, ELBOW (WRVU 5.96) performed by Christopher Correa MD at [facility] MAIN OR ??? PRO REMOVAL ERUPTED TOOTH WITH ELEVATION OF MUCOPERIOSTEAL FLAP Bilateral 09/11/2019 SURGICAL EXTRACTIONS REQUIRING ELEVATION OF MUCOPERIOSTEAL FLAP AND REMOVAL OF BONE OR SECTION OF TOOTH ([facility] 1.09) performed by Wesley Jacobo MD at [facility] Prior To Admission Medications: (Not [...] questions please contact the health skin care therapist that requested your imaging first. Lower Extremity [...] questions please contact the health skin care therapist that requested your imaging first. Other Studies: None Assessment: 60 y.o. female with past medical history of diabetes, hypothyroidism, depression, psoriasis, chronic headaches, presenting with complaints of left ankle swelling, pain, erythema and purulent drainageafter having ORIF on 01/21/2021 at [facility]. CT of the ankle showed LLE [...] to the planned procedure. Hand Hygiene: The corn popper did perform hand hygiene prior to line insertion. Catheter type: PICC Lot number: [id number] Procedure Technique: Skin was prepped with chlorhexidine. [...] L ankle fracture S/P ORIF at [facility] (01/21/21) who presented to the ED [...] fracture performed 01/21 by orthopedic surgery at [facility]. She notes that she has also had intermittent chills but has not taken her temperature. Overall she has been very unhappy with her care at [facility] notes that they dismissed her concerns about an infection and suggested she was narcotic seeking. She would like to transfer all her orthopedic care to [facility] for this reason. Denies any lightheadedness, nausea, [...] questions please contact the health skin care therapist that requested your imaging first. Ankle Min [...] questions please contact the health skin care therapist that requested your imaging first. SSMENT & PLAN MDM: Jesenia Méndez is a 60 y.o. female with PMH significant for ID T2DM, R elbow fusion with serial casting, and L ankle fracture S/P ORIF at [facility] (01/21/21) who presented to the ED [...] w/ FWW stand pivot to [facility]. PLAN MOVING FORWARD: Monitor VS, labs, I/O's [...] drainage after having ORIF on 01/21/2021 at [facility]. CT of the ankle showed LLE [...] questions please contact the health skin care therapist that requested your imaging first. Lower Extremity [...] questions please contact the health skin care therapist that requested your imaging first. Ankle Min [...] questions please contact the health skin care therapist that requested your imaging first. PICC Placement [...] questions please contact the health skin care therapist that requested your imaging first. Angiogram Lower [...] questions please contact the health skin care therapist that requested your imaging first. Assessment: 60 y.o.??female??with L ankle wound s/p L ankle hardware removal and washouts with ortho for LLE cellulitis and abscess following ORIF on 01/21/2021 at [facility]. Recommendations: Plan for soft tissue coverage pending discussion with Dr. Franklin. Tentatively scheduling about two weeks from now. Corina Medrano MD 02/17/2021 11:50 AM Thank you for this consult. Please do not hesitate to page [phone] if you have any questions or concerns. [...] Keith MD - 02/14/2021 4:22 PM EDT [facility] Operative Note Patient Name: Jesenia Méndez : [id number] MR#: [id number] Case Date: 02/14/2021 Surgeon: Surgeon(s) and Role: [...] planned surgery, and site according to the [facility] Gilliam Protocol. 1 black sponge and white what [...] (PICC) Teaching Sheet Peripherally inserted central catheters ([id number]) (PICC) are used when you need IV [...] midline catheter? PICC lines are used for half-way treatments. PICC lines may be used for [...] can be set up via the nurse Roof Tiler to help you. What are possible complications [...] Vascular Access Device Selection, Insertion, and Management, [employer] Access Systems 05/26. A Review of the Efficacy, Safety, Use, and Administration of [employer], [employer] 2005 * Plan of Care - [...] Operative Note Patient Name: Jesenia Méndez : [id number] MR#: [id number] Case Date: 02/12/2021 Surgeon: Surgeon(s) and Role: [...] Odonnell MD - 02/12/2021 4:55 PM EDT [facility] Operative Note Patient Name: Jesenia Méndez : [id number] MR#: [id number] Case Date: 02/12/2021 Surgeon: Surgeon(s) and Role: [...] with one black sponge. The wound measured [id number]. The patient was then placed in a [...] I&D. She underwent ORIF left ankle at [facility] on 01/21/21 a day after she [...] Yarbrough MD - 02/10/2021 10:02 AM EDT [facility] Operative Note Patient Name: Jesenia Méndez : [id number] MR#: [id number] Case Date: 02/10/2021 Surgeon: Surgeon(s) and Role: * Jacobo De La Cruz MD - Primary * Seth Yarbrough MD - Resident Preoperative diagnosis: Left ankle infection Postoperative diagnosis: Left ankle infection Procedure: 1) Debridement Skin, subq, muscle, bone - [id number] Findings: Gross purulence under pressure distal to [...] L ankle fracture S/P ORIF at [facility] (01/21/21)??who presented to the ED for??RUE [...] 4.06) performed by Wesley Jacobo MD at [facility] ? ? PRO DEBRIDEMENT SUBCUTANEOUS TISSUE 20 SQCM/< Left 02/08/2021 DEBRIDEMENT SKIN AND SUBCU, LOWER EXTREMITY (WRVU 1.01) [facility] ??? PRO FUSION/GRAFT OF ELBOW JOINT Right 2017 ARTHRODESIS, ELBOW JOINT WITH AUTOGENOUS GRAFT (WRVU 14.32) performed by Christopher Correa MD at [facility] MAIN OR ??? PRO REMOVAL DEEP IMPLANT Right 2017 REMOVAL OF IMPLANT, DEEP, ELBOW (WRVU 5.96) performed by Christopher Correa MD at [facility] MAIN OR ??? PRO REMOVAL ERUPTED TOOTH WITH ELEVATION OF MUCOPERIOSTEAL FLAP Bilateral 09/11/2019 SURGICAL EXTRACTIONS REQUIRING ELEVATION OF MUCOPERIOSTEAL FLAP AND REMOVAL OF BONE OR SECTION OF TOOTH (WRVU 1.09) performed by Wesley Jacobo MD at [facility] Social History: Patient lives with [...] precautions Vision & Perception: ?? corrective lenses director multimedia Communication: WFL Range of motion, strength, coordination: [...] is between inpatient rehab vs home with HOT SAW HELPER & 24/7 support/assistance - pending pt progress during her inpatient hospitalization. Equipment needs at discharge: TBD Anticipated Discharge Disposition (OT): inpatient rehabilitation facility (vs home with HOT SAW HELPER & 24/7 support/assistance ) Other Recommendations: ?? [...] and measurable assessment of functional outcome. Pager: [phone] Delfina Marr, OTR/L 02/09/2021 Occupational Therapy Rehabilitation [...] EVALUATION: * Consult Note - Yani Cheng [facility] - 02/08/2021 11:15 PM EDT Clinical Pharmacist Note - NicholasFD Jesenia Méndez [id number] Jesenia Méndez is a 60 y.o. [...] have. Alternately,during off-hours (9p-) you may call [phone] to contact a pharmacist. Yani Cheng RPH [...] ankle erythema, drainage status post ORIF at [facility] Introduced self/reviewed role; services accepted. Patient had received pain medication and was Reason for Hospitalization: pain Last COVID test: not tested Past medical History: History reviewed. No pertinent past medical history. S/P ORIF left ankle fracture 01/21/2021 at [facility]; fracture sustained 01/11/2021 Active Non-Hospital Problems ?? Diagnosis ??? H/O insulin dependent diabetes mellitus ??? H/O: depression ??? Hypothyroidism ??? h/o chronic headaches ??? Closed fracture of shaft of right ulna with known elbow arthrodesis RIGHT ??? Chronic pain in left shoulder ??? S/P R elbow fusion on 12/14/17 [facility]rea ??? Psoriasis ?? Hospitalizations Within the Past 30 Days: [facility] 01/21/2021 Current Decision-Making Capacity: Self Advance Care Planning: Attempt Cardiopulmonary Resuscitation - Inpatient <no information> -Advanced Directive: No, need to discuss (father Jacobo Méndez is surrogate healthcare decision-maker) If AD's have not been completed father Jacobo Méndez would be surrogate decision maker per [place] surrogate decision making law. (Only good for 90 days) Any patient receiving care at [facility] must abide by [place] law. The hierarchy for surrogate decision making [...] (i) The agent with financial power of commercial real estate attorney or a conservator appointed in accordance [...] in [place] 02/08/2021 Home Address listed as: [facility] [address] [facility] [address] Social & Family Supports: All names listed below confirmed with patient as current and correct Extended Emergency Contact Information Primary Emergency Contact: Wilmar Méndezuel Address: [address] [place] [id number] [facility] Mobile Relation: Father Current Care Provided [...] Insurance: N/A Prescription Coverage: Yes Preferred Pharmacy: [facility] [address] [address] [place] Status: Patient is a : unable to assess (most likely not but did not confirm) Primary Care Provider: Maryuri Evans MD [phone] Patient/Caregiver Goals of Treatment: healing of L ankle without complication Potential Needs for Transition of Care: Additional help at home VNA referral Home wound VAC Agency Referrals: The patient/caregivers were provided with a list of homecare agencies which servetheir preferred geographic location and they were educated about their right to choose where referrals are placed. Patient/Caregiver requests referral to homecare agencies. [facility] PHONE: [phone] FAX: [phone] NB: Patient had a referral placed following [facility] encounter but was not seen; reason unknown. Transportation: private vehicle v [place] Medicaid transportation Transportation Anticipated: yes, may need assistance from [facility] OCM care team for ride Concerns to [...] towards recovery. She was discharged home from [facility]. VNA referral routed to [facility] Customizer. Notify OCM RNCM regarding possible wound vac [...] transition of care planning. Selina Ramirez RNCM [facility] w/e civil engineering drafter Pager: [phone] * Op Note - Yani Dumas MD - 02/08/2021 11:30 AM EDT [facility] Operative Note Patient Name: Jesenia Méndez : [id number] MR#: [id number] Case Date: 02/08/2021 Surgeon: Surgeon(s) and Role: [...] of a left ankle fracture at the [facility]. She presented to the [facility] emergency department with a symptomatic cast which [...] A timeout was held in accordance with [facility] policy verifying the patient's name, date of [...] Operative Note Patient Name: Jesenia Méndez : [id number] MR#: [id number] Case Date: 02/08/2021 Surgeon: Surgeon(s) and Role: * Henrry Quiñones MD - Primary * Yani Duams MD - Resident Preoperative diagnosis: left ankle [...] ADLs]: hands on Surveillance [continuous indirect monitoring]: cliffordo, bed alarm in use, room near unit [...] ankle erythema, drainage status post ORIF at [facility] HPI: Jesenia Méndez is a 60 [...] open reduction internal fixation on 01/21/2021 at [facility]. She reports drainage persistently ever [...] data in the 24 hours ending 02/07/21 0101 Body mass index is 33.47 kg/m??. PHYSICAL [...] left ankle fracture performed on 01/21/2021 at [facility] (Dr. Henson). Patient has persistent drainage [...] evaluation and treatment. Please page Orthopaedic consults ([phone]) with any questions or concerns. ?? Trudi Vann MD P. [phone] 02/07/21 5:34 PM Future Appointments Date Time Provider Department Center 03/20/2021 1:00 PM CAST ROOM 3A [facility] ORTH 3A [facility] 03/20/2021 1:30 PM [facility] DX ROOM 3 Xray [facility] Rad 03/20/2021 2:20 PM Dorina Campbell APRN [facility] ORTH [address] [place] [address] Addendum: Patient seen and examined again following [...] internal fixation for this on 01/21/2021 at [facility]. With regard to her arm she [...] Left ankle infection Debridement, Skin, Sub-Q Tissue ([id number]) 02/10/2021 9:36 AM EDT Left ankle infection [...] (ABNORMAL) POCT Glucose (02/18/2021 3:53 PM EDT) [facility] [address] Glucose, POC 234(H) 65 - 199 mg/dL [facility] Comment: Supplemental ranges: <140 mg/dL before meals <180 mg/dL all other times of the day Blood 02/18/2021 3:53 PM EDT 02/18/2021 3:53 PM EDT Yunior Rodriguez DO POINT OF CARE TEST O RDERABLES Performing Organization Address [facility] Co de Phone Number [facility] [place] [address] * POCT Glucose (02/18/2021 11:17 AM EDT) Glucose, POC 181 65 - 199 mg/dL [facility] Comment: Supplemental ranges: <140 mg/dL before meals <180 mg/dL all other times of the day Blood 02/18/2021 11:1 7 AM EDT 02/18/2021 11:17 AM EDT Yunior Rodriguez DO POINT OF CARE TEST O RDERAMISBAH Performing Organization Address [facility] Co de Phone Number [facility] [place] [address] * (ABNORMAL) Hepatic Function Panel (02/18/2021 10:35 [...] Agency Comment Spec In Lab Cami Ugarte DANDY OPERATOR CHEMISTRY ORDERABLES Performing Organization Address [facility] Co de Phone Number [facility] [place] [address] * (ABNORMAL) POCT Glucose (02/18/2021 8:35 AM EDT) [facility] [address] Glucose, POC 225(H) 65 - 199 mg/dL [facility] Comment: Supplemental ranges: <140 mg/dL before meals <180 mg/dL all other times of the day Blood 02/18/2021 8:35 AM EDT 02/18/2021 8:35 AM EDT Yunior Rodriguez DO POINT OF CARE TEST O RDERABLES Performing Organization Address [facility] de Phone Number [facility] [place] [address] * (ABNORMAL) CRP, acute inflammation (02/18/2021 6:10 AM EDT) [facility] [address] C-Reactive Protein 29.1(H) <=4.9 mg/L [facility] Blood Venous Draw / Unknown 02/18/2021 6:10 AM EDT 02/18/2021 6:35 AM EDT Narrative Resulting Agency Comment Spec In Lab Cami Ugarte DANDY OPERATOR CHEMISTRY ORDERABLES Performing Organization Address [facility] Co de Phone Number [facility] [place] [address] * (ABNORMAL) Differential, Automated (02/18/2021 6:10 AM EDT) [facility] [address] Neutrophil % 73.3 % [facility] Neutrophil Absolute 6.98(H) 1.70 - 6.10 x10(3)/mc L [facility] Lymph % 18.8 % [facility] Lymphocytes Abs 1.8 0.9 - 3.2 x10(3)/mc L [facility] Monocyte % 4.8 % [facility] Monocyte Abs 0.5 0.3 - 0.9 x10(3)/[facility] Eos % 1.9 % [facility] Eosinophils Abs 0.2 0.0 - 0.4 x10(3)/[facility] Basophil % 0.4 % [facility] Baso Absolute 0.0 0.0 - 0.1 x10(3)/[facility] Immature Gran % 0.80 % [facility] Comment: Immature granulocytes(IG's)percentage and absolute count will include metamyelocytes, myelocytes, and promyelocytes. Blood smears from CBCs yielding IG's will be scanned manually for concordance. If this scan disagrees with the automated IG or if promyelocytes are noted, a manual differential will be performed. Immature Gran Absolute 0.08(H) 0.00 - 0.04 x10(3)/[facility] Blood 02/18/2021 6:10 AM EDT 02/18/2021 6:30 AM EDT Narrative Resulting Agency Comment Spec In Lab Cami Ugarte DANDY OPERATOR HEMATOLOGY ORDERABLE S [facility] [place] [address] * (ABNORMAL) Hemogram (02/18/2021 6:10 AM EDT) White Blood Cell 9.5 4.0 - 9.5 x10(3)/[facility] Red Blood Cell 3.64(L) 4.00 - 5.21 x10(6)/[facility] Hemoglobin 10.5(L) 11.7 - 15.5 gm/dL [...] [facility] NRBC% auto 0.0 % [facility] NRBC Absolute 0.000 0.000 - 0.000 x10(3)/mc L [facility] Blood 02/18/2021 6:10 AM EDT 02/18/2021 6:30 AM EDT Narrative Resulting Agency Comment Spec In Lab Cami Ugarte DANDY OPERATOR HEMATOLOGY ORDERABLE S [facility] [place] [address] * Phosphorus (02/18/2021 6:10 AM EDT) Phosphorus 3.4 2.5 - 4.5 mg/dL [facility] Blood 02/18/2021 6:10 AM EDT 02/18/2021 6:30 AM EDT Narrative Resulting Agency Comment Spec In Lab Cami Ugarte DANDY OPERATOR CHEMISTRY ORDERABLES [facility] [place] [address] * Magnesium (02/18/2021 6:10 AM EDT) Magnesium 0.96 0.69 - 1.07 mmol/L [facility] Blood 02/18/2021 6:10 AM EDT 02/18/2021 6:30 AM EDT Narrative Resulting Agency Comment Spec In Lab Cami M Torito BALBUENA CHEMISTRY ORDERABLES [facility] [place] [address] * (ABNORMAL) Basic Metabolic Panel (non-fasting) (02/18/2021 [...] Ugarte APRN CHEMISTRY ORDERABLES Performing Organization Address [facility]/ZIP Co de Phone Number [facility] [place] [address] * (ABNORMAL) POCT Glucose (02/17/2021 11:44 PM EDT) Glucose, POC 202(H) 65 - 199 mg/dL [facility] Comment: Supplemental ranges: <140 mg/dL before meals <180 mg/dL all other times of the day Blood 02/17/2021 11:4 4 PM EDT 02/17/2021 11:44 PM EDT Yunior Rodriguez DO POINT OF CARE TEST O RDERABLES Performing Organization Address [facility] Co de Phone Number [facility] [place] [address] * POCT Glucose (02/17/2021 8:09 PM EDT) Glucose, POC 142 65 - 199 mg/dL [facility] Comment: Supplemental ranges: <140 mg/dL before meals <180 mg/dL all other times of the day Blood 02/17/2021 8:09 PM EDT 02/17/2021 8:09 PM EDT Yunior Rodriguez DO POINT OF CARE TEST O RDERABLES Performing Organization Address [facility]/ZIP Co de Phone Number [facility] [place] [address] * POCT Glucose (02/17/2021 4:21 PM EDT) Glucose, POC 191 65 - 199 mg/dL [facility] Comment: Supplemental ranges: <140 mg/dL before meals <180 mg/dL all other times of the day Blood 02/17/2021 4:21 PM EDT 02/17/2021 4:21 PM EDT Yunior Rodriguez DO POINT OF CARE TEST O RDERABLES Performing Organization Address [facility] Co de Phone Number [facility] [place] [address] * POCT Glucose (02/17/2021 12:00 PM EDT) Glucose, POC 155 65 - 199 mg/dL [facility] Comment: Supplemental ranges: <140 mg/dL before meals <180 mg/dL all other times of the day Blood 02/17/2021 12:0 0 PM EDT 02/17/2021 12:00 PM EDT Yunior Rodriguez DO POINT OF CARE TEST O RDERABLES Performing Organization Address [facility] Co de Phone Number [facility] [place] [address] * (ABNORMAL) POCT Glucose (02/17/2021 8:36 AM EDT) Glucose, POC 239(H) 65 - 199 mg/dL [facility] Comment: Supplemental ranges: <140 mg/dL before meals <180 mg/dL all other times of the day Blood 02/17/2021 8:36 AM EDT 02/17/2021 8:36 AM EDT Yunior Rodriguez DO POINT OF CARE TEST O RDERABLES Performing Organization Address [facility] Co de Phone Number [facility] [place] [address] * (ABNORMAL) Differential, Automated (02/17/2021 4:10 AM EDT) Neutrophil % 69.5 % [facility] Neutrophil Absolute 6.21(H) 1.70 - 6.10 x10(3)/mc L [facility] Lymph % 20.8 % [facility] Lymphocytes Abs 1.9 0.9 - 3.2 x10(3)/ L [facility] Monocyte % 5.9 % [facility] Monocyte Abs 0.5 0.3 - 0.9 x10(3)/ L [facility] Eos % 1.7 % [facility] Eosinophils Abs 0.2 0.0 - 0.4 x10(3)/[facility] Basophil % 0.4 % [facility] Baso Absolute 0.0 0.0 - 0.1 x10(3)/[facility] Immature Gran % 1.70 % [facility] Comment: Immature granulocytes(IG's)percentage and absolute count will include metamyelocytes, myelocytes, and promyelocytes. Blood smears from CBCs yielding IG's will be scanned manually for concordance. If this scan disagrees with the automated IG or if promyelocytes are noted, a manual differential will be performed. Immature Gran Absolute 0.15(H) 0.00 - 0.04 x10(3)/[facility] Blood 02/17/2021 4:10 AM EDT 02/17/2021 4:19 AM EDT Narrative Resulting Agency Comment Spec In Lab Cami Ugarte DANDY OPERATOR HEMATOLOGY ORDERABLE S [facility] [place] [address] * (ABNORMAL) Hemogram (02/17/2021 4:10 AM EDT) White Blood Cell 8.9 4.0 - 9.5 x10(3)/[facility] Red Blood Cell 3.44(L) 4.00 - [...] [facility] NRBC% auto 0.0 % [facility] NRBC Absolute 0.000 0.000 - 0.000 x10(3)/mc L [facility] Blood 02/17/2021 4:10 AM EDT 02/17/2021 4:19 AM EDT Narrative Resulting Agency Comment Spec In Lab Cami Ugarte DANDY OPERATOR HEMATOLOGY ORDERABLE S Performing Organization Address City/[facility] Co de Phone Number [facility] [place] [address] * Phosphorus (02/17/2021 4:10 AM EDT) Phosphorus 3.0 2.5 - 4.5 mg/dL [facility] Blood 02/17/2021 4:10 AM EDT 02/17/2021 4:19 AM EDT Narrative Resulting Agency Comment Spec In Lab Cami Ugarte DANDY OPERATOR CHEMISTRY ORDERABLES Performing Organization Address [facility] Co de Phone Number [facility] [place] [address] * Magnesium (02/17/2021 4:10 AM EDT) Magnesium 0.91 0.69 - 1.07 mmol/L [facility] Blood 02/17/2021 4:10 AM EDT 02/17/2021 4:19 AM EDT Narrative Resulting Agency Comment Spec In Lab Cami Ugarte SREE CHEMISTRY ORDERABLES [facility] [place] [address] * (ABNORMAL) Basic Metabolic Panel (non-fasting) (02/17/2021 [...] Ugarte APRN CHEMISTRY ORDERABLES Performing Organization Address [facility] de Phone Number [facility] [place] [address] * CK (02/17/2021 4:10 AM EDT) Creatine Kinase <20 0 - 160 unit/L [facility] Blood 02/17/2021 4:10 AM EDT 02/17/2021 4:19 AM EDT Narrative Resulting Agency Comment Spec In Lab Yunior Rodriguez DO CHEMISTRY ORDERABLES Performing Organization Address [facility] de Phone Number [facility] [place] [address] * POCT Glucose (02/16/2021 7:33 PM EDT) Glucose, POC 172 65 - 199 mg/dL [facility] Comment: Supplemental ranges: <140 mg/dL before meals <180 mg/dL all other times of the day Blood 02/16/2021 7:33 PM EDT 02/16/2021 7:33 PM EDT Yunior Rodriguez DO POINT OF CARE TEST O RDERABLES Performing Organization Address [facility] Co de Phone Number [facility] [place] [address] * POCT Glucose (02/16/2021 4:11 PM EDT) Glucose, POC 197 65 - 199 mg/dL [facility] Comment: Supplemental ranges: <140 mg/dL before meals <180 mg/dL all other times of the day Blood 02/16/2021 4:11 PM EDT 02/16/2021 4:11 PM EDT Yunior Rodriguez DO POINT OF CARE TEST O RDERABLES [facility] [place] [address] * CT Angiogram Lower Extremity Left (Generic) [...] questions please contact the health skin care therapist that requested your imaging first. ? Narrative [...] have questions please contactthe health skin care therapist that requested your imaging first. Dali Feliz APRN IMG CT ORDERABLES * (ABNORMAL) POCT Glucose (02/16/2021 1:46 PM EDT) Glucose, POC 274(H) 65 - 199 mg/dL [facility] Comment: Supplemental ranges: <140 mg/dL before meals <180 mg/dL all other times of the day Blood 02/16/2021 1:46 PM EDT 02/16/2021 1:46 PM EDT Yunior Rodriguez DO POINT OF CARE TEST O RDERAMISBAH Performing Organization Address [facility] Co de Phone Number [facility] [place] [address] * (ABNORMAL) POCT Glucose (02/16/2021 11:35 AM EDT) Glucose, POC 215(H) 65 - 199 mg/dL [facility] Comment: Supplemental ranges: <140 mg/dL before meals <180 mg/dL all other times of the day Blood 02/16/2021 11:3 5 AM EDT 02/16/2021 11:35 AM EDT Ynuior Rodriguez DO POINT OF CARE TEST O RDERAMISBAH Performing Organization Address [facility]/ZIP Co de Phone Number [facility] [place] [address] * (ABNORMAL) POCT Glucose (02/16/2021 10:23 AM EDT) Glucose, POC 239(H) 65 - 199 mg/dL [facility] Comment: Supplemental ranges: <140 mg/dL before meals <180 mg/dL all other times of the day Blood 02/16/2021 10:2 3 AM EDT 02/16/2021 10:23 AM EDT Yunior Rodriguez DO POINT OF CARE TEST O RDERABLES Performing Organization Address [facility]/ZIP Co de Phone Number [facility] [place] [address] * (ABNORMAL) POCT Glucose (02/16/2021 7:46 AM EDT) Glucose, POC 273(H) 65 - 199 mg/dL [facility] Comment: Supplemental ranges: <140 mg/dL before meals <180 mg/dL all other times of the day Blood 02/16/2021 7:46 AM EDT 02/16/2021 7:46 AM EDT Yunior Rodriguez DO POINT OF CARE TEST O RDERABLES Performing Organization Address City/[facility]/ZIP Co de Phone Number [facility] [place] [address] * (ABNORMAL) Basic Metabolic Panel (non-fasting) (02/16/2021 [...] In Lab Yunior Rodriguez DO CHEMISTRY ORDERABLES [facility] [place] [address] * (ABNORMAL) Hemogram (02/16/2021 3:53 AM EDT) [...] [facility] NRBC% auto 0.0 % [facility] NRBC Absolute 0.000 0.000 - 0.000 x10(3)/mc L [facility] Blood 02/16/2021 3:53 AM EDT 02/16/2021 3:57 AM EDT Narrative Resulting Agency Comment Spec In Lab Yunior Rodriguez DO HEMATOLOGY ORDERABLE S Performing Organization Address City/[facility]/ZIP Co de Phone Number [facility] [place] [address] * POCT Glucose (02/15/2021 8:03 PM EDT) Glucose, POC 174 65 - 199 mg/dL [facility] Comment: Supplemental ranges: <140 mg/dL before meals <180 mg/dL all other times of the day Blood 02/15/2021 8:03 PM EDT 02/15/2021 8:03 PM EDT Yunior Rodriguez DO POINT OF CARE TEST O RDERABLES Performing Organization Address City/[facility]/ZIP Co de Phone Number [facility] [place] [address] * POCT Glucose (02/15/2021 5:24 PM EDT) Glucose, POC 127 65 - 199 mg/dL [facility] Comment: Supplemental ranges: <140 mg/dL before meals <180 mg/dL all other times of the day Blood 02/15/2021 5:24 PM EDT 02/15/2021 5:24 PM EDT Yunior Rodriguez DO POINT OF CARE TEST O RDERABLES Performing Organization Address City/[facility]/ZIP Co de Phone Number [facility] [place] [address] * (ABNORMAL) POCT Glucose (02/15/2021 3:38 PM EDT) Glucose, POC 243(H) 65 - 199 mg/dL [facility] Comment: Supplemental ranges: <140 mg/dL before meals <180 mg/dL all other times of the day Blood 02/15/2021 3:38 PM EDT 02/15/2021 3:38 PM EDT Yunior Rodriguez DO POINT OF CARE TEST O RDERAMISBAH Performing Organization Address [facility] Co de Phone Number [facility] [place] [address] * POCT Glucose (02/15/2021 11:39 AM EDT) Glucose, POC 178 65 - 199 mg/dL [facility] Comment: Supplemental ranges: <140 mg/dL before meals <180 mg/dL all other times of the day Blood 02/15/2021 11:3 9 AM EDT 02/15/2021 11:39 AM EDT Yunior Rodriguez DO POINT OF CARE TEST O RDERABLES Performing Organization Address City/[facility]/ZIP Co de Phone Number [facility] [place] [address] * (ABNORMAL) POCT Glucose (02/15/2021 7:40 AM EDT) Glucose, POC 238(H) 65 - 199 mg/dL [facility] Comment: Supplemental ranges: <140 mg/dL before meals <180 mg/dL all other times of the day Blood 02/15/2021 7:40 AM EDT 02/15/2021 7:40 AM EDT Yunior Rodriguez DO POINT OF CARE TEST O RDERABLES [facility] [place] [address] * (ABNORMAL) Basic Metabolic Panel (non-fasting) (02/15/2021 [...] MD CHEMISTRY ORDERABLES [facility] [place] [address] * (ABNORMAL) Hemogram (02/15/2021 12:35 AM EDT) White Blood Cell 9.6(H) 4.0 - 9.5 x10(3)/mc L [facility] Red Blood Cell 3.39(L) 4.00 - 5.21 x10(6)/mc L [facility] Hemoglobin 9.7(L) 11.7 - 15.5 gm/dL [facility] Hematocrit 30.7(L) 35.7 - 45.8 % [facility] Mean Cell Volume 90.6 82.6 - 94.4 fL [facility] Mean Cell Hemoglobin 28.6 27.1 - 32.0 pg [facility] Mean Cell Hemoglobin Concentration 31.6(L) 31.7 - 35.0 gm/dL [facility] Platelet 291 145 - 357 x10(3)/mc L [facility] RDW Standard Deviation 43.9 37.0 - 46.0 fL [facility] RDW coefficient of variation 13.3 11.5 - 14.1 % [facility] Mean Platelet Volume 10.9 7.6 - 12.9 fL [facility] NRBC% auto 0.0 % [facility] NRBC Absolute 0.000 0.000 - 0.000 x10(3)/mc L [facility] Blood 02/15/2021 12:3 5 AM EDT 02/15/2021 12:44 AM EDT Narrative Resulting Agency Comment Spec In Lab Edilma Mary MD HEMATOLOGY ORDERABLE S Performing Organization Address City/[facility]/ZIP Co de Phone Number [facility] [place] [address] * POCT Glucose (02/14/2021 11:51 PM EDT) Glucose, POC 188 65 - 199 mg/dL [facility] Comment: Supplemental ranges: <140 mg/dL before meals <180 mg/dL all other times of the day Blood 02/14/2021 11:5 1 PM EDT 02/14/2021 11:51 PM EDT Yunior Rodriguez DO POINT OF CARE TEST O RDERABLES Performing Organization Address City/[facility]/ZIP Co de Phone Number [facility] [place] [address] * CK (02/14/2021 8:13 PM EDT) Creatine Kinase <20 0 - 160 unit/L [facility] Blood 02/14/2021 8:13 PM EDT 02/14/2021 8:19 PM EDT Narrative Resulting Agency Comment Spec In Lab Yunior Rodriguez DO CHEMISTRY ORDERABLES Performing Organization Address City/[facility]/ZIP Co de Phone Number [facility] [place] [address] * POCT Glucose (02/14/2021 7:53 PM EDT) Glucose, POC 186 65 - 199 mg/dL [facility] Comment: Supplemental ranges: <140 mg/dL before meals <180 mg/dL all other times of the day Blood 02/14/2021 7:53 PM EDT 02/14/2021 7:53 PM EDT Yunior Rodriguez DO POINT OF CARE TEST O RDERABLES Performing Organization Address City/[facility]/ZIP Co de Phone Number [facility] [place] [address] * POCT Glucose (02/14/2021 4:57 PM EDT) Glucose, POC 110 65 - 199 mg/dL [facility] Comment: Supplemental ranges: <140 mg/dL before meals <180 mg/dL all other times of the day Blood 02/14/2021 4:57 PM EDT 02/14/2021 4:57 PM EDT Yunior Rodriguez DO POINT OF CARE TEST O RDERABLES Performing Organization Address [facility] Co de Phone Number [facility] [place] [address] * Vancomycin, trough (02/14/2021 2:50 PM EDT) Vancomycin, Trough 18.9 mg/L [facility] Comment: Therapeutic range for complicated [...] Rodriguez DO CHEMISTRY ORDERABLES Performing Organization Address [facility] Co de Phone Number [facility] [place] [address] * POCT Glucose (02/14/2021 11:51 AM EDT) Glucose, POC 149 65 - 199 mg/dL [facility] Comment: Supplemental ranges: <140 mg/dL before meals <180 mg/dL all other times of the day Blood 02/14/2021 11:5 1 AM EDT 02/14/2021 11:51 AM EDT Yunior Rodriguez DO POINT OF CARE TEST O RDERABLES [facility] [place] [address] * XR PICC Placement Over 5 Years [...] questions please contact the health skin care therapist that requested your imaging first. ? Narrative [...] have questions please contactthe health skin care therapist that requested your imaging first. Edilma Mary MD IMG FLUORO ORDERABLE S * Place PICC Line: Contact Vascular Access Page [phone] Extremity to exclude: No restrictions; Is PICC [...] to the planned procedure. Hand Hygiene: The corn popper did perform hand hygiene prior to line insertion. Catheter type: PICC Lot number: [id number] Procedure Technique: Skin was prepped with chlorhexidine. [...] TEST O RDERABLES [facility] [place] [address] * (ABNORMAL) POCT Glucose (02/13/2021 11:45 PM EDT) Glucose, POC 228(H) 65 - 199 mg/dL [facility] Comment: Supplemental ranges: <140 mg/dL before meals <180 mg/dL all other times of the day Blood 02/13/2021 11:4 5 PM EDT 02/13/2021 11:45 PM EDT Edilma Mary MD POINT OF CARE TEST O RDERABLES Performing Organization Address City/[facility]/ZIP Co de Phone Number [facility] [place] [address] * POCT Glucose (02/13/2021 7:39 PM EDT) Glucose, POC 186 65 - 199 mg/dL [facility] Comment: Supplemental ranges: <140 mg/dL before meals <180 mg/dL all other times of the day Blood 02/13/2021 7:39 PM EDT 02/13/2021 7:39 PM EDT Edilma Mary MD POINT OF CARE TEST O DIMITRISERAMISBAH Performing Organization Address [facility]/ZIP Co de Phone Number [facility] [place] [address] * (ABNORMAL) POCT Glucose (02/13/2021 3:51 PM EDT) Glucose, POC 201(H) 65 - 199 mg/dL [facility] Comment: Supplemental ranges: <140 mg/dL before meals <180 mg/dL all other times of the day Blood 02/13/2021 3:51 PM EDT 02/13/2021 3:51 PM EDT Edilma Mary MD POINT OF CARE TEST O DIMITRISERAMISBAH Performing Organization Address City/[facility]/ZIP Co de Phone Number [facility] [place] [address] * XR Ankle Min 3 views Left [...] questions please contact the health skin care therapist that requested your imaging first. ? Narrative [...] have questions please contactthe health skin care therapist that requested your imaging first. Edilma Mary [...] CARE TEST O RDERAMISBAH Performing Organization Address [facility]/ZIP Co de Phone Number [facility] [place] [address] * POCT Glucose (02/13/2021 8:18 AM EDT) Glucose, POC 185 65 - 199 mg/dL [facility] Comment: Supplemental ranges: <140 mg/dL before meals <180 mg/dL all other times of the day Blood 02/13/2021 8:18 AM EDT 02/13/2021 8:18 AM EDT Edilma Mary MD POINT OF CARE TEST O RDERAMISBAH [facility] [place] [address] * POCT Glucose (02/12/2021 8:16 PM EDT) Glucose, POC 120 65 - 199 mg/dL [facility] Comment: Supplemental ranges: <140 mg/dL before meals <180 mg/dL all other times of the day Blood 02/12/2021 8:16 PM EDT 02/12/2021 8:16 PM EDT Edilma Mary MD POINT OF CARE TEST O RDERABLES [facility] [place] [address] * POCT Glucose (02/12/2021 7:25 PM EDT) Glucose, POC 99 65 - 199 mg/dL [facility] Comment: Supplemental ranges: <140 mg/dL before meals <180 mg/dL all other times of the day Blood 02/12/2021 7:25 PM EDT 02/12/2021 7:25 PM EDT Edilma Mary MD POINT OF CARE TEST O RDERAMISBAH Performing Organization Address City/[facility]/ZIP Co de Phone Number [facility] [place] [address] * POCT Glucose (02/12/2021 5:48 PM EDT) Glucose, POC 102 65 - 199 mg/dL [facility] Comment: Supplemental ranges: <140 mg/dL before meals <180 mg/dL all other times of the day Blood 02/12/2021 5:48 PM EDT 02/12/2021 5:48 PM EDT Edilma Mary MD POINT OF CARE TEST O RDERABLES [facility] [place] [address] * Anaerobic Culture (02/12/2021 5:45 PM EDT) Anaerobic Culture No anaerobic organisms isolated [facility] Deep Wound ANKLE REGION STRUCTURE / Unknown 02/12/2021 5:45 PM EDT 02/12/2021 6:31 PM EDT Comment:OR#5 [id number] Narrative Resulting Agency Comment Spec In Lab Sabrina Capellan MD MICROBIOLOGY - GENER AL ORDERABLES Performing Organization Address [facility] Co de Phone Number [facility] [place] [address] * (ABNORMAL) Abscess/Wound Aspirate Culture (02/12/2021 5:45 PM EDT) Abscess/Wound Aspirate Culture Rare Staphylococcus aureus Susceptibilities previously reported (A) [facility] Gram Stain No Neutrophils seen. No microorganisms seen. (A) [facility] Organism Staphylococcus aureus(A) [facility] Deep Wound ANKLE REGION STRUCTURE / Unknown 02/12/2021 5:45 PM EDT 02/12/2021 6:31 PM EDT Comment:OR#5 [id number] Narrative Resulting Agency Comment Spec In Lab Sabrina Capellan MD MICROBIOLOGY - GENER AL ORDERABLES Performing Organization Address [facility] Co de Phone Number [facility] [place] [address] * Anaerobic Culture (02/12/2021 5:43 PM EDT) Anaerobic Culture No anaerobic organisms isolated [facility] Deep Wound ANKLE REGION STRUCTURE / Unknown 02/12/2021 5:43 PM EDT 02/12/2021 6:32 PM EDT Comment:LEFT DEEP ANKLE BONE Narrative Resulting Agency Comment Spec In Lab Sabrina Capellan MD MICROBIOLOGY - GENER AL ORDERABLES Performing Organization Address City/[facility]/ZIP Co de Phone Number [facility] [place] [address] * (ABNORMAL) Abscess/Wound Aspirate Culture (02/12/2021 5:43 [...] Sensitive Comment:Gentamicin i s not appropriate for [place]-therapy. Staphylococcus aureus Oxacillin VITEK 2 METHOD Sensitive [...] GENER AL ORDERABLES [facility] [place] [address] * POCT Glucose (02/12/2021 3:39 PM EDT) Glucose, POC 109 65 - 199 mg/dL [facility] Comment: Supplemental ranges: <140 mg/dL before meals <180 mg/dL all other times of the day Blood 02/12/2021 3:39 PM EDT 02/12/2021 3:39 PM EDT Edilma Mary MD POINT OF CARE TEST O RDERABLES Performing Organization Address City/[facility]/ZIP Co de Phone Number [facility] [place] [address] * Vancomycin, trough (02/12/2021 2:30 PM EDT) Vancomycin, Trough 18.3 mg/L [facility] Comment: Therapeutic range for complicated [...] Rodriguez DO CHEMISTRY ORDERABLES Performing Organization Address City/[facility]/ZIP Co de Phone Number [facility] [place] [address] * POCT Glucose (02/12/2021 11:56 AM EDT) Glucose, POC 123 65 - 199 mg/dL [facility] Comment: Supplemental ranges: <140 mg/dL before meals <180 mg/dL all other times of the day Blood 02/12/2021 11:5 6 AM EDT 02/12/2021 11:56 AM EDT Edilma Mary MD POINT OF CARE TEST O VIKKI Performing Organization Address City/[facility]/ZIP Co de Phone Number [facility] [place] [address] * POCT Glucose (02/12/2021 7:37 AM EDT) Glucose, POC 138 65 - 199 mg/dL [facility] Comment: Supplemental ranges: <140 mg/dL before meals <180 mg/dL all other times of the day Blood 02/12/2021 7:37 AM EDT 02/12/2021 7:37 AM EDT Edilma Mary MD POINT OF CARE TEST O RDERABLES Performing Organization Address [facility]/ZIP Co de Phone Number [facility] [place] [address] * POCT Glucose (02/12/2021 4:22 AM EDT) Glucose, POC 170 65 - 199 mg/dL [facility] Comment: Supplemental ranges: <140 mg/dL before meals <180 mg/dL all other times of the day Blood 02/12/2021 4:22 AM EDT 02/12/2021 4:22 AM EDT Edilma Mary MD POINT OF CARE TEST O VIKKI Performing Organization Address [facility] Co de Phone Number [facility] [place] [address] * POCT Glucose (02/11/2021 11:20 PM EDT) Glucose, POC 147 65 - 199 mg/dL [facility] Comment: Supplemental ranges: <140 mg/dL before meals <180 mg/dL all other times of the day Blood 02/11/2021 11:2 0 PM EDT 02/11/2021 11:20 PM EDT Edilma Mary MD POINT OF CARE TEST O RDERAMISBAH Performing Organization Address [facility] Co de Phone Number [facility] [place] [address] * (ABNORMAL) POCT Glucose (02/11/2021 7:59 PM EDT) Glucose, POC 213(H) 65 - 199 mg/dL [facility] Comment: Supplemental ranges: <140 mg/dL before meals <180 mg/dL all other times of the day Blood 02/11/2021 7:59 PM EDT 02/11/2021 7:59 PM EDT Edilma Mary MD POINT OF CARE TEST O RDERABLES Performing Organization Address [facility] Co de Phone Number [facility] [place] [address] * POCT Glucose (02/11/2021 4:02 PM EDT) Glucose, POC 129 65 - 199 mg/dL [facility] Comment: Supplemental ranges: <140 mg/dL before meals <180 mg/dL all other times of the day Blood 02/11/2021 4:02 PM EDT 02/11/2021 4:02 PM EDT Edilma Mary MD POINT OF CARE TEST O RDERABLES Performing Organization Address [facility] Co de Phone Number [facility] [place] [address] * POCT Glucose (02/11/2021 1:35 PM EDT) Glucose, POC 152 65 - 199 mg/dL [facility] Comment: Supplemental ranges: <140 mg/dL before meals <180 mg/dL all other times of the day Blood 02/11/2021 1:35 PM EDT 02/11/2021 1:35 PM EDT Edilma Mary MD POINT OF CARE TEST O RDERABLES Performing Organization Address [facility] Co de Phone Number [facility] [place] [address] * (ABNORMAL) POCT Glucose (02/11/2021 11:28 AM EDT) Glucose, POC 284(H) 65 - 199 mg/dL [facility] Comment: Supplemental ranges: <140 mg/dL before meals <180 mg/dL all other times of the day Blood 02/11/2021 11:2 8 AM EDT 02/11/2021 11:28 AM EDT Edilma Mary MD POINT OF CARE TEST O RDERABLES [facility] [place] [address] * POCT Glucose (02/11/2021 7:42 AM EDT) Glucose, POC 133 65 - 199 mg/dL [facility] Comment: Supplemental ranges: <140 mg/dL before meals <180 mg/dL all other times of the day Blood 02/11/2021 7:42 AM EDT 02/11/2021 7:42 AM EDT Edilma Mary MD POINT OF CARE TEST O RDERAMISBAH Performing Organization Address [facility] de Phone Number [facility] [place] [address] * (ABNORMAL) POCT Glucose (02/11/2021 3:57 AM EDT) Glucose, POC 267(H) 65 - 199 mg/dL [facility] Comment: Supplemental ranges: <140 mg/dL before meals <180 mg/dL all other times of the day Blood 02/11/2021 3:57 AM EDT 02/11/2021 3:57 AM EDT Edilma Mary MD POINT OF CARE TEST O RDERABLES Performing Organization Address [facility] de Phone Number [facility] [place] [address] * POCT Glucose (02/10/2021 11:55 PM EDT) Glucose, POC 190 65 - 199 mg/dL [facility] Comment: Supplemental ranges: <140 mg/dL before meals <180 mg/dL all other times of the day Blood 02/10/2021 11:5 5 PM EDT 02/10/2021 11:55 PM EDT Edilma Mary MD POINT OF CARE TEST O RDERABLES Performing Organization Address City/[facility]/ZIP Co de Phone Number [facility] [place] [address] * (ABNORMAL) POCT Glucose (02/10/2021 9:10 PM EDT) Glucose, POC 225(H) 65 - 199 mg/dL [facility] Comment: Supplemental ranges: <140 mg/dL before meals <180 mg/dL all other times of the day Blood 02/10/2021 9:10 PM EDT 02/10/2021 9:10 PM EDT Edilma Mary MD POINT OF CARE TEST O VIKKI Performing Organization Address [facility] Co de Phone Number [facility] [place] [address] * (ABNORMAL) POCT Glucose (02/10/2021 6:55 PM EDT) Glucose, POC 346(H) 65 - 199 mg/dL [facility] Comment: Supplemental ranges: <140 mg/dL before meals <180 mg/dL all other times of the day Blood 02/10/2021 6:55 PM EDT 02/10/2021 6:55 PM EDT Edilma Mary MD POINT OF CARE TEST O RDERAMISBAH Performing Organization Address [facility] Co de Phone Number [facility] [place] [address] * (ABNORMAL) POCT Glucose (02/10/2021 3:44 PM EDT) Glucose, POC 284(H) 65 - 199 mg/dL [facility] Comment: Supplemental ranges: <140 mg/dL before meals <180 mg/dL all other times of the day Blood 02/10/2021 3:44 PM EDT 02/10/2021 3:44 PM EDT Edilma Mary MD POINT OF CARE TEST O RDERABLES Performing Organization Address [facility] Co de Phone Number [facility] [place] [address] * Vancomycin, trough (02/10/2021 2:15 PM EDT) Vancomycin, Trough 12.9 mg/L [facility] Comment: Therapeutic range for complicated [...] Rodriguez DO CHEMISTRY ORDERABLES Performing Organization Address [facility] Co de Phone Number [facility] [place] [address] * POCT Glucose (02/10/2021 11:46 AM EDT) Glucose, POC 154 65 - 199 mg/dL [facility] Comment: Supplemental ranges: <140 mg/dL before meals <180 mg/dL all other times of the day Blood 02/10/2021 11:4 6 AM EDT 02/10/2021 11:46 AM EDT Edilma Mary MD POINT OF CARE TEST O RDERABLES Performing Organization Address [facility] Co de Phone Number [facility] [place] [address] * POCT Glucose (02/10/2021 10:40 AM EDT) Glucose, POC 132 65 - 199 mg/dL [facility] Comment: Supplemental ranges: <140 mg/dL before meals <180 mg/dL all other times of the day Blood 02/10/2021 10:4 0 AM EDT 02/10/2021 10:40 AM EDT Edilma Mary MD POINT OF CARE TEST O RDERABLES Performing Organization Address City/[facility] [place] [address] * Anaerobic Culture (02/10/2021 10:02 AM EDT) Anaerobic Culture No anaerobic organisms isolated [facility] Deep Wound STRUCTURE OF LEFT FOOT / Unknown 02/10/2021 10:02 AM EDT 02/10/2021 10:31 AM EDT Comment:LEFT LATERAL PROXIMA L ANKLE Narrative Resulting Agency Comment Spec In Lab Jacobo De La Cruz MD MICROBIOLOGY - GENER AL ORDERABLES Performing Organization Address [facility] Phone Number [facility] [place] [address] * (ABNORMAL) Abscess/Wound Aspirate Culture (02/10/2021 10:02 [...] - GENER AL ORDERABLES Performing Organization Address [facility] Co de Phone Number [facility] [place] [address] * Anaerobic Culture (02/10/2021 10:02 AM EDT) Anaerobic Culture No anaerobic organisms isolated [facility] Deep Wound STRUCTURE OF LEFT FOOT / Unknown 02/10/2021 10:02 AM EDT 02/10/2021 10:31 AM EDT Comment:LEFT LATERAL DISTAL ANKLE Narrative Resulting Agency Comment Spec In Lab Jacobo De La Cruz MD MICROBIOLOGY - GENER AL ORDERABLES Performing Organization Address [facility] de Phone Number [facility] [place] [address] * (ABNORMAL) Abscess/Wound Aspirate Culture (02/10/2021 10:02 [...] - GENER AL ORDERABLES Performing Organization Address [facility] de Phone Number [facility] [place] [address] * POCT Glucose (02/10/2021 7:42 AM EDT) Glucose, POC 130 65 - 199 mg/dL [facility] Comment: Supplemental ranges: <140 mg/dL before meals <180 mg/dL all other times of the day Blood 02/10/2021 7:42 AM EDT 02/10/2021 7:42 AM EDT Edilma Mary MD POINT OF CARE TEST O RDERABLES Performing Organization Address City/[facility]/ZIP Co de Phone Number [facility] [place] [address] * POCT Glucose (02/10/2021 5:02 AM EDT) Pathologist [facility] [place] Glucose, POC 102 65 - 199 mg/dL [facility] Comment: Supplemental ranges: <140 mg/dL before meals <180 mg/dL all other times of the day Blood 02/10/2021 5:02 AM EDT 02/10/2021 5:02 AM EDT Edilma Mary MD POINT OF CARE TEST O RDERABLES Performing Organization Address [facility] Co de Phone Number [facility] [place] [address] * Differential, Automated (02/10/2021 4:01 AM EDT) [facility] [address] Neutrophil % 73.3 % [facility] Neutrophil Absolute 4.98 1.70 - 6.10 x10(3)/[facility] LABORATORY Lymph % 14.3 % [facility] Lymphocytes Abs 1.0 0.9 - 3.2 x10(3)/[facility] LABOR[facility]ORY Monocyte % 10.2 % [facility] Monocyte Abs 0.7 0.3 - 0.9 x10(3)/[facility] LAB[facility]ORY Eos % 1.6 % [facility] Eosinophils Abs 0.1 0.0 - 0.4 x10(3)/[facility] LAB[facility]ORY Basophil % 0.3 % [facility] Baso Absolute 0.0 0.0 - 0.1 x10(3)/[facility] LABORATORY Immature Gran % 0.30 % [facility] [...] HEMATOLOGY ORDERABL ES [facility] [place] [address] * (ABNORMAL) Hemogram (02/10/2021 4:01 AM EDT) White Blood Cell 6.8 4.0 - 9.5 x10(3)/[facility] LABORATORY Red Blood Cell 3.60(L) 4.00 - 5.21 x10(6)/[facility]ATORY Hemoglobin 10.5(L) 11.7 - 15.5 gm/dL [facility] Hematocrit 32.6(L) 35.7 - 45.8 % [facility] Mean Cell Volume 90.6 82.6 - 94.4 fL [facility] Mean Cell Hemoglobin 29.2 27.1 - 32.0 pg [facility] Mean Cell Hemoglobin Concentration 32.2 31.7 - 35.0 gm/dL [facility] Platelet 160 145 - 357 x10(3)/[facility] LABORATORY RDW Standard Deviation 45.1 37.0 - 46.0 [facility] LABORATORY RDW coefficient of variation 13.5 11.5 - 14.1 % [facility] Mean Platelet Volume 11.6 7.6 - 12.9 fL [facility] NRBC% auto 0.0 % [facility] NRBC Absolute 0.000 0.000 - 0.000 x10(3)/[facility] LABORATORY Blood 02/10/2021 4:01 AM EDT 02/10/2021 4:21 AM EDT Narrative Resulting Agency Comment Spec In Lab Yani Dumas MD HEMATOLOGY ORDERABL ES [facility] [place] [address] * (ABNORMAL) Basic Metabolic Panel (non-fasting) (02/10/2021 [...] MD CHEMISTRY ORDERABLES [facility] [place] [address] * POCT Glucose (02/10/2021 12:14 AM EDT) Glucose, POC 180 65 - 199 mg/dL [facility] Comment: Supplemental ranges: <140 mg/dL before meals <180 mg/dL all other times of the day Blood 02/10/2021 12:1 4 AM EDT 02/10/2021 12:14 AM EDT Edilma Mary MD POINT OF CARE TEST O RDERABLES Performing Organization Address [facility]/ZIP Co de Phone Number [facility] [place] [address] * POCT Glucose (02/09/2021 8:52 PM EDT) Glucose, POC 178 65 - 199 mg/dL [facility] Comment: Supplemental ranges: <140 mg/dL before meals <180 mg/dL all other times of the day Blood 02/09/2021 8:52 PM EDT 02/09/2021 8:52 PM EDT Edilma Mary MD POINT OF CARE TEST O RDERAMISBAH Performing Organization Address City/[facility]/ZIP Co de Phone Number [facility] [place] [address] * (ABNORMAL) POCT Glucose (02/09/2021 4:15 PM EDT) Glucose, POC 260(H) 65 - 199 mg/dL [facility] Comment: Supplemental ranges: <140 mg/dL before meals <180 mg/dL all other times of the day Blood 02/09/2021 4:15 PM EDT 02/09/2021 4:15 PM EDT Edilma Mary MD POINT OF CARE TEST O VIKKI [facility] [place] [address] * (ABNORMAL) POCT Glucose (02/09/2021 2:09 PM EDT) Glucose, POC 346(H) 65 - 199 mg/dL [facility] Comment: Supplemental ranges: <140 mg/dL before meals <180 mg/dL all other times of the day Blood 02/09/2021 2:09 PM EDT 02/09/2021 2:09 PM EDT Edilma Mary MD POINT OF CARE TEST O VIKKI Performing Organization Address [facility]/ZIP Co de Phone Number [facility] [place] [address] * (ABNORMAL) POCT Glucose (02/09/2021 11:58 AM EDT) Glucose, POC 339(H) 65 - 199 mg/dL [facility] Comment: Supplemental ranges: <140 mg/dL before meals <180 mg/dL all other times of the day Blood 02/09/2021 11:5 8 AM EDT 02/09/2021 11:58 AM EDT Edilma Mary MD POINT OF CARE TEST O VIKKI [facility] [place] [address] * POCT Glucose (02/09/2021 7:49 AM EDT) Glucose, POC 168 65 - 199 mg/dL [facility] Comment: Supplemental ranges: <140 mg/dL before meals <180 mg/dL all other times of the day Blood 02/09/2021 7:49 AM EDT 02/09/2021 7:49 AM EDT Edilma Mary MD POINT OF CARE TEST O RDERABLES [facility] [place] [address] * (ABNORMAL) Differential, Automated (02/09/2021 5:13 AM EDT) Neutrophil % 73.2 % [facility] Neutrophil Absolute 6.14(H) 1.70 - 6.10 x10(3)/ L [facility] Lymph % 11.5 % [facility] Lymphocytes Abs 1.0 0.9 - 3.2 x10(3)/[facility] Monocyte % 14.1 % [facility] Monocyte Abs 1.2(H) 0.3 - 0.9 x10(3)/ L [facility] Eos % 0.6 % [facility] Eosinophils Abs 0.0 0.0 - 0.4 x10(3)/[facility] Basophil % 0.4 % [facility] Baso Absolute 0.0 0.0 - 0.1 x10(3)/ L [facility] Immature Gran [...] Absolute 0.02 0.00 - 0.04 x10(3)/ L [facility] Blood 02/09/2021 5:13 AM EDT 02/09/2021 5:18 AM EDT Narrative Resulting Agency Comment Spec In Lab Yani Dumas MD HEMATOLOGY ORDERABL ES [facility] [place] [address] * Hemogram (02/09/2021 5:13 AM EDT) [facility] [address] White Blood Cell 8.4 4.0 - 9.5 x10(3)/[facility] Red Blood Cell 4.25 4.00 - 5.21 x10(6)/[facility] Hemoglobin 12.5 11.7 - 15.5 gm/dL [...] 145 - 357 x10(3)/[facility] RDW Standard Deviation 44.1 37.0 - 46.0 fL [facility] RDW coefficient of variation 13.4 11.5 - 14.1 % [facility] Mean Platelet Volume 11.2 7.6 - 12.9 fL [facility] NRBC% auto 0.0 % [facility] NRBC Absolute 0.000 0.000 - 0.000 x10(3)/[facility] Blood 02/09/2021 5:13 AM EDT 02/09/2021 5:18 AM EDT Narrative Resulting Agency Comment Spec In Lab Yani Dumas MD HEMATOLOGY ORDERABL ES [facility] [place] [address] * Vitamin D, 25-Hydroxy (02/09/2021 5:13 AM EDT) Pathologist [facility] [place] Vitamin D Total 25 OH 43 21 - 100 ng/mL [facility] Vit D Interp Sufficient [facility] Blood 02/09/2021 5:13 AM EDT 02/09/2021 5:18 AM EDT Narrative Resulting Agency Comment Spec In Lab Cami M Torito DANDY OPERATOR CHEMISTRY ORDERABLES [facility] [place] [address] * (ABNORMAL) Basic Metabolic Panel (non-fasting) (02/09/2021 [...] Mary MD CHEMISTRY ORDERABLES Performing Organization Address [facility] Co de Phone Number [facility] [place] [address] * POCT Glucose (02/09/2021 4:44 AM EDT) Glucose, POC 131 65 - 199 mg/dL [facility] Comment: Supplemental ranges: <140 mg/dL before meals <180 mg/dL all other times of the day Blood 02/09/2021 4:44 AM EDT 02/09/2021 4:44 AM EDT Edilma Mary MD POINT OF CARE TEST O RDERABLES Performing Organization Address [facility] Co de Phone Number [facility] [place] [address] * (ABNORMAL) POCT Glucose (02/08/2021 11:24 PM EDT) Glucose, POC 204(H) 65 - 199 mg/dL [facility] Comment: Supplemental ranges: <140 mg/dL before meals <180 mg/dL all other times of the day Blood 02/08/2021 11:2 4 PM EDT 02/08/2021 11:24 PM EDT Edilma Mary MD POINT OF CARE TEST O RDERABLES Performing Organization Address [facility] Co de Phone Number [facility] [place] [address] * (ABNORMAL) POCT Glucose (02/08/2021 8:27 PM EDT) Glucose, POC 201(H) 65 - 199 mg/dL [facility] Comment: Supplemental ranges: <140 mg/dL before meals <180 mg/dL all other times of the day Blood 02/08/2021 8:27 PM EDT 02/08/2021 8:27 PM EDT Edilma Mary MD POINT OF CARE TEST O RDERABLES [facility] [place] [address] * (ABNORMAL) POCT Glucose (02/08/2021 4:20 PM EDT) Glucose, POC 225(H) 65 - 199 mg/dL [facility] Comment: Supplemental ranges: <140 mg/dL before meals <180 mg/dL all other times of the day Blood 02/08/2021 4:20 PM EDT 02/08/2021 4:20 PM EDT Edilma Mary MD POINT OF CARE TEST O RDERABLES Performing Organization Address [facility]/ZIP Co de Phone Number [facility] [place] [address] * POCT Glucose (02/08/2021 12:11 PM EDT) Glucose, POC 186 65 - 199 mg/dL [facility] Comment: Supplemental ranges: <140 mg/dL before meals <180 mg/dL all other times of the day Blood 02/08/2021 12:1 1 PM EDT 02/08/2021 12:11 PM EDT Edilma Mary MD POINT OF CARE TEST O RDERABLES Performing Organization Address City/[facility]/ZIP Co de Phone Number [facility] [place] [address] * Anaerobic Culture (02/08/2021 10:30 AM EDT) Anaerobic Culture No anaerobic organisms isolated [facility] Deep Wound ANKLE REGION STRUCTURE / Unknown 02/08/2021 10:30 AM EDT 02/08/2021 11:32 AM EDT Comment:SWAB ANKLE HARDWARE #3 Narrative Resulting Agency Comment Spec In Lab Henrry Quiñones MD MICROBIOLOGY - GENE RAL ORDERABLES Performing Organization Address [facility] Co de Phone Number [facility] [place] [address] * (ABNORMAL) Abscess/Wound Aspirate Culture (02/08/2021 10:30 [...] - GENE RAL ORDERABLES Performing Organization Address [facility] Co de Phone Number [facility] [place] [address] * Anaerobic Culture (02/08/2021 10:30 AM EDT) Anaerobic Culture No anaerobic organisms isolated [facility] Deep Wound ANKLE REGION STRUCTURE / Unknown 02/08/2021 10:30 AM EDT 02/08/2021 11:33 AM EDT Comment:SWAB LEFT ANKLE HARD FERGUSON #2 Narrative Resulting Agency Comment Spec In Lab Henrry Quiñones MD MICROBIOLOGY - GENE RAL ORDERABLES Performing Organization Address [facility]/ZIP Co de Phone Number [facility] [place] [address] * (ABNORMAL) Abscess/Wound Aspirate Culture (02/08/2021 10:30 [...] - GENE RAL ORDERABLES Performing Organization Address [facility] Co de Phone Number [facility] [place] [address] * Anaerobic Culture (02/08/2021 10:30 AM EDT) Anaerobic Culture No anaerobic organisms isolated [facility] Deep Wound ANKLE REGION STRUCTURE / Unknown 02/08/2021 10:30 AM EDT 02/08/2021 11:31 AM EDT Comment:SWAB LEFT ANKLE HARD FERGUSON #1 Narrative Resulting Agency Comment Spec In Lab Henrry Quiñones MD MICROBIOLOGY - GENE RAL ORDERABLES Performing Organization Address [facility]/ZIP Co de Phone Number [facility] [place] [address] * (ABNORMAL) Abscess/Wound Aspirate Culture (02/08/2021 10:30 [...] Sensitive Comment:Gentamicin i s not appropriate for [place]-therapy. Staphylococcus aureus Oxacillin VITEK 2 METHOD Sensitive [...] METHOD Sensitive Henrry Quiñones MD MICROBIOLOGY - [facility] ORDERABLES [facility] [place] [address] * POCT Glucose (02/08/2021 7:57 AM EDT) Glucose, POC 141 65 - 199 mg/dL [facility] Comment: Supplemental ranges: <140 mg/dL before meals <180 mg/dL all other times of the day Blood 02/08/2021 7:57 AM EDT 02/08/2021 7:57 AM EDT Mark Chavez MD POINT OF CARE TEST O RDERABLES [facility] [place] [address] * POCT Glucose (02/08/2021 4:10 AM EDT) Pathologist [facility] [place] Glucose, POC 164 65 - 199 mg/dL [facility] Comment: Supplemental ranges: <140 mg/dL before meals <180 mg/dL all other times of the day Blood 02/08/2021 4:10 AM EDT 02/08/2021 4:10 AM EDT Mark Chavez MD POINT OF CARE TEST O RDERABLES [facility] [place] [address] * (ABNORMAL) Differential, Automated (02/08/2021 3:19 AM EDT) [facility] [address] Neutrophil % 80.5 % [facility] Neutrophil Absolute 6.90(H) 1.70 - 6.10 x10(3)/mc L [facility] Lymph % 10.6 % [facility] Lymphocytes Abs 0.9 0.9 - 3.2 x10(3)/mc L [facility] Monocyte % 7.8 % [facility] Monocyte Abs 0.7 0.3 - 0.9 x10(3)/mc L [facility] Eos % 0.4 % [facility] Eosinophils Abs 0.0 0.0 - 0.4 x10(3)/mc L [facility] Basophil % 0.2 % [facility] Baso Absolute 0.0 0.0 - [...] HEMATOLOGY ORDERABLE S [facility] [place] [address] * Hemogram (02/08/2021 3:19 AM EDT) White Blood Cell 8.6 4.0 - 9.5 x10(3)/[facility] Red Blood Cell 4.45 4.00 - 5.21 x10(6)/[facility] Hemoglobin 13.0 11.7 - 15.5 gm/dL [...] 145 - 357 x10(3)/[facility] RDW Standard Deviation 42.5 37.0 - 46.0 [facility] RDW coefficient of variation 13.1 11.5 - 14.1 % [facility] Mean Platelet Volume 11.6 7.6 - 12.9 [facility]ORY NRBC% auto 0.0 % [facility] NRBC Absolute 0.000 0.000 - 0.000 x10(3)/[facility] Blood 02/08/2021 3:19 AM EDT 02/08/2021 3:50 AM EDT Narrative Resulting Agency Comment Spec In Lab Mark Chavez MD HEMATOLOGY ORDERABLE S [facility] [place] [address] * (ABNORMAL) Hemoglobin A1c (02/08/2021 3:19 AM [...] Mellitus, Diabetes Care 2013; 36: Suppl. 1, S67-35 Estimated Average Glucose 181 mg/dL [facility] [...] into estimated average glucose values. ??Diabetes Care 2008:31(8):0727-5431. Blood 02/08/2021 3:19 AM EDT 02/08/2021 3:50 AM EDT Narrative Resulting Agency Comment Spec In Lab Mark Chavez MD CHEMISTRY ORDERABLES [facility] [place] [address] * Basic Metabolic Panel (non-fasting) (02/08/2021 3:19 [...] Mary MD CHEMISTRY ORDERABLES Performing Organization Address City/[facility]/ZIP Co de Phone Number [facility] [place] [address] * (ABNORMAL) POCT Glucose (02/08/2021 2:05 AM EDT) Glucose, POC 204(H) 65 - 199 mg/dL [facility] Comment: Supplemental ranges: <140 mg/dL before meals <180 mg/dL all other times of the day Blood 02/08/2021 2:05 AM EDT 02/08/2021 2:05 AM EDT Mark Chavez MD POINT OF CARE TEST O RDERABLES Performing Organization Address [facility] Co de Phone Number [facility] [place] [address] * (ABNORMAL) POCT Glucose (02/07/2021 11:47 PM EDT) Glucose, POC 267(H) 65 - 199 mg/dL [facility] Comment: Supplemental ranges: <140 mg/dL before meals <180 mg/dL all other times of the day Blood 02/07/2021 11:4 7 PM EDT 02/07/2021 11:47 PM EDT Mark Chavez MD POINT OF CARE TEST O RDERABLES Performing Organization Address City/[facility]/ZIP Co de Phone Number [facility] [place] [address] * (ABNORMAL) POCT Glucose (02/07/2021 10:07 PM EDT) Glucose, POC 311(H) 65 - 199 mg/dL [facility] Comment: Supplemental ranges: <140 mg/dL before meals <180 mg/dL all other times of the day Blood 02/07/2021 10:0 7 PM EDT 02/07/2021 10:07 PM EDT Mark Chavez MD POINT OF CARE TEST O RDERAMISBAH Performing Organization Address City/[facility]/ZIP Co de Phone Number [facility] [place] [address] * (ABNORMAL) POCT Glucose (02/07/2021 8:51 PM EDT) Glucose, POC 254(H) 65 - 199 mg/dL [facility] Comment: Supplemental ranges: <140 mg/dL before meals <180 mg/dL all other times of the day Blood 02/07/2021 8:51 PM EDT 02/07/2021 8:51 PM EDT Mark Chavez MD POINT OF CARE TEST O DIMITRISERAMISBAH Performing Organization Address [facility]/ZIP Co de Phone Number [facility] [place] [address] * Blood culture (02/07/2021 7:37 PM EDT) Blood Culture No growth at 5 days. [facility] Blood 02/07/2021 7:37 PM EDT 02/07/2021 7:50 PM EDT Comment:L AC Narrative Resulting Agency Comment Spec In Lab Jacobo De La Cruz MD MICROBIOLOGY - BLOOD ORDERABLES Performing Organization Address City/[facility]/ZIP Co de Phone Number [facility] [place] [address] * Blood culture (02/07/2021 6:55 PM EDT) Blood Culture No growth at 5 days. [facility] Blood 02/07/2021 6:55 PM EDT 02/07/2021 7:51 PM EDT Narrative Resulting Agency Comment Spec In Lab Jacobo De La Cruz MD MICROBIOLOGY - BLOOD ORDERABLES Performing Organization Address [facility] Co de Phone Number [facility] [place] [address] * Ab Comment (02/07/2021 6:50 PM EDT) [...] BANK LAB ORDErica LEMOS Performing Organization Address City/[facility]/ZIP Co de Phone Number [facility] [place] [address] * Antibody identification (02/07/2021 6:50 PM EDT) Ab Identified Anti-K [facility] Blood 02/07/2021 6:50 PM EDT 02/07/2021 7:05 PM EDT Narrative Resulting Agency Comment Spec In Lab Nuvia DIALLO BLOOD BANK LAB ORDErica LEMOS [facility] [place] [address] * Type and Screen Validity (02/07/2021 6:50 PM EDT) T&S only valid at [facility] LABORATORY Comment:This Type and Screen result is only valid at the [facility] Blood 02/07/2021 6:50 PM EDT 02/07/2021 7:05 PM EDT Narrative Resulting Agency Comment Spec In Lab Nuvia DIALLO BLOOD BANK LAB ORDErica LEMOS Performing Organization Address [facility]/ZIP Co de Phone Number [facility] [place] [address] * ABORH Recheck Status (02/07/2021 6:50 PM EDT) ABORH Recheck Order Order Placed [facility] ABORH Type Recheck Complete [facility] Blood 02/07/2021 6:50 PM EDT 02/07/2021 7:05 PM EDT Narrative Resulting Agency Comment Spec In Lab Nuvia DIALLO BLOOD BANK LAB ORDE AMINTA Performing Organization Address [facility]/ZIP Co de Phone Number [facility] [place] [address] * Antibody screen (02/07/2021 6:50 PM EDT) Ab Screen Interp Positive [facility] Expires at [id number] on: 02/10/2021 [facility] Blood 02/07/2021 6:50 PM EDT 02/07/2021 7:05 PM EDT Narrative Resulting Agency Comment Spec In Lab Nuvia DIALLO BLOOD BANK LAB ORDE AMINTA [facility] [place] [address] * ABO/Rh Typing (02/07/2021 6:50 PM EDT) ABORH Type O Neg [facility] Blood 02/07/2021 6:50 PM EDT 02/07/2021 7:05 PM EDT Narrative Resulting Agency Comment Spec In Lab Nuvia DIALLO BLOOD BANK LAB ALMA LEMOS [facility] [place] [address] * CT Lower Extremity w Contrast Left [...] questions please contact the health skin care therapist that requested your imaging first. ? Narrative [...] Within these limits, there is a small ygg-cmisizrdfq-gpadvwndl collection adjacent to the distal aspect of [...] have questions please contactthe health skin care therapist that requested your imaging first. Mark Chavez MD [facility] ORDERABLES * XR Ankle Min 3 [...] questions please contact the health skin care therapist that requested your imaging first. ? Narrative 02/07/2021 3:44 PM EDT EXAMINATION: XR [...] have questions please contactthe health skin care therapist that requested your imaging first. Kristian Colorado III, MD IMG DX ORDERABLES * Vitamin D, 25-Hydroxy (02/07/2021 3:03 PM EDT) Vitamin D Total 25 OH 55 21 - 100 ng/mL [facility] Vit D Interp Sufficient [facility] Blood Venous Draw / Unknown 02/07/2021 3:03 PM EDT 02/07/2021 3:14 PM EDT Narrative Resulting Agency Comment Spec In Lab Cami Ugarte DANDY OPERATOR CHEMISTRY ORDERABLES Performing Organization Address City/[facility]/ZIP Co de Phone Number [facility] [place] [address] * Green Tube HOLD (02/07/2021 3:03 PM EDT) Green Hold Sample in lab. [facility] Blood Venous Draw / Unknown 02/07/2021 3:03 PM EDT 02/07/2021 3:11 PM EDT Nuvia DIALLO CHEMISTRY ORDERABLE S Performing Organization Address City/[facility]/ZIP Co de Phone Number [facility] [place] [address] * Gold Tube HOLD (02/07/2021 3:03 PM EDT) Gold Hold Sample in lab. [facility] Blood Venous Draw / Unknown 02/07/2021 3:03 PM EDT 02/07/2021 3:10 PM EDT Nuvia DIALLO CHEMISTRY ORDERABLE S [facility] [place] [address] * (ABNORMAL) Differential, Automated (02/07/2021 3:03 PM EDT) Pathologist [facility] [place] Neutrophil % 90.7 % [facility] Neutrophil Absolute 8.98(H) 1.70 - 6.10 x10(3)/[facility] Lymph % 3.1 % [facility] Lymphocytes Abs 0.3(L) 0.9 - 3.2 x10(3)/[facility] Monocyte % 5.2 % [facility] Monocyte Abs 0.5 0.3 - 0.9 x10(3)/[facility] Eos % 0.2 % [facility] Eosinophils Abs 0.0 0.0 - 0.4 x10(3)/[facility] Basophil % 0.5 % [facility] Baso Absolute 0.0 0.0 - 0.1 x10(3)/[facility] Immature Gran % 0.30 % [facility] Comment: Immature granulocytes(IG's)percentage and absolute count will include metamyelocytes, myelocytes, and promyelocytes. Blood smears from CBCs yielding IG's will be scanned manually for concordance. If this scan disagrees with the automated IG or if promyelocytes are noted, a manual differential will be performed. Immature Gran Absolute 0.03 0.00 - 0.04 x10(3)/[facility] Blood 02/07/2021 3:03 PM EDT 02/07/2021 3:08 PM EDT Narrative Resulting Agency Comment Spec In Lab Nuvia DIALLO HEMATOLOGY ORDERABL ES [facility] [place] [address] * (ABNORMAL) Hemogram (02/07/2021 3:03 PM EDT) Pathologist [facility] [place] White Blood Cell 9.9(H) 4.0 - 9.5 x10(3)/[facility] Red Blood Cell 4.77 4.00 - 5.21 x10(6)/ L [facility] Hemoglobin 13.8 11.7 - 15.5 [...] HOSPITAL LABORATORY Platelet 170 145 - 357 x10(3)/[facility]ORATORY RDW Standard Deviation 41.8 37.0 - 46.0 [facility] RDW coefficient of variation 12.9 11.5 - 14.1 % [facility] Mean Platelet Volume 11.2 7.6 - 12.9 [facility] NRBC% auto 0.0 % [facility] NRBC Absolute 0.000 0.000 - 0.000 x10(3)/[facility] Blood 02/07/2021 3:03 PM EDT 02/07/2021 3:08 PM EDT Narrative Resulting Agency Comment Spec In Lab Nuvia DIALLO HEMATOLOGY ORDERABL ES [facility] [place] [address] * (ABNORMAL) CRP, acute inflammation (02/07/2021 3:03 PM EDT) C-Reactive Protein >300.0(H) <=4.9 mg/L [facility] Blood 02/07/2021 3:03 PM EDT 02/07/2021 3:13 PM EDT Narrative Resulting Agency Comment Spec In Lab Kristian Colorado III, MD CHEMISTRY ORDERABL ES Performing Organization Address [facility] Co de Phone Number [facility] [place] [address] * (ABNORMAL) Sedimentation rate (02/07/2021 3:03 PM [...] MD HEMATOLOGY ORDERAB LES Performing Organization Address [facility] Co de Phone Number [facility] [place] [address] * (ABNORMAL) Basic Metabolic Panel (non-fasting) (02/07/2021 [...] CHEMISTRY ORDERABL ES [facility] [place] [address] documented in this encounter Visit Diagnoses Not [...] indicated., Routine 0600 (Given - Provider: Anita Sosa, SUNIL)1418 (Given - Provider: Cynthia Tadeo RN)2124 (Given [...] Murray 1600 (New Bag - Provider: Kelsie Herbert, SUNIL)1630 (Stopped - Provider: Kelsie Herbert, SUNIL) enoxaparin (Lovenox) (40 mg/0.4 mL) subcutaneous [...] Provider: Kelsie Herbert, SUNIL)1423 (Given - Provider: Kelsie Herbert, SUNIL) insulin glargine (Lantus) (100 unit/mL) subcutaneous injection vial 20 Units 20 Units, Subcutaneous, NIGHTLY, First dose on 6/19/21 at 2245, Until Discontinued, Routine 2012 (Given [...] Tadeo, SUNIL)1331 (Given - Provider: Cynthia Tadeo, RN)1824 (Given - Provider: Cynthia Tadeo RN) [...] Kelsie Herbert RN)1215 (Given - Provider: Kelsie Herbert RN)1601 (Given - Provider: Kelsie Herbert RN) levothyroxine (Synthroid) tablet 50 mcg 50 mcg, Oral, EVERY MORNING, First dose on 02/08/21 at 0600, Until Discontinued, Routine 0600 (Given - Provider: Anita Sosa RN) 0552 (Given - Provider: Madeline Salomon, SUNIL) 0539 (Given - Provider: Elle Escalante RN) lidocaine (Lidoderm) 5% topical patch 3 patch(Linked Group 2) 3 patch, Transdermal, EVERY 24 HOURS, First dose on 02/08/21 at 0900, Until Discontinued, Apply patch(es) for 12 hours, and then remove for 12 hours., Routine 09 (Not Given - Provider: Cynthia Tadeo RN [...] Cynthia Tadeo RN)2013 (Given - Provider: Juani Sanhcez RN) 0845 (Given - Provider: Sherwin Hermosillo, [...] Tadeo RN)1824 (Given - Provider: Cynthia Tadeo, SUNIL)2563 (Given - Provider: Madeline Salomon, RN) 0551 (Given - Provider: Madeline Salomon, RN)1025 (Given - Provider: Sherwin Hermosillo, RN)1541 (Given - Provider: Sherwin Hermosillo, RN)2038 (Given - Provider: Elle Escalante, SUNIL) oxyCODONE (Roxicodone) tablet 5-10 mg(Linked Group 5) 5-10 mg, Oral, EVERY 4 HOURS PRN, Starting on Tue02/17/21 at 2348, Until Tue02/18/21 at 2107, Pain, moderate pain (4-6), Initial dose 5mg. If pain control not adequate in 60 minutes, give additional 5mg, Routine 0000 (Given - Provider: Elle Escalante RN)0539 (Given - Provider: Elel Escalante RN) sodium chloride 0.9 % (flush) [...] Routine documented in this encounter Care Teams On Air Announcer Relationship Specialty Start Date End Date Maryuri Evans MD [address] [place] [address] PCP - General 09/23/14 documented as of this encounter
--- OUTSIDE RECORDS SUMMARY | 2024-05-31 17:47 | XMS_ITS | Encounter Summary ---
Author Organization [facility] [place] [address] Care Team Providers Care Clothing Designer Name Role Phone Maryuri Evans MD Primary Care Provider [phone] Reason for Visit * Auth/Cert Specialty Diagnoses / Procedures Referred By Keith yung Referred To Contact Diagnoses Abscess of ankle Ankle abscess Procedures Emergency IPI Referral ID Status Reason Start Date Expiration Date Visits Re quested Visits Authorized [id number] 1 1 Encounter Details Date Type Department Care Team (Late st Contact Info) Description 02/10/2021 9:38 AM EDT Anesthesia Event [place] [id number] Edison Gamez MD [facility] [place] [address] Anesthesia Record Procedure Summary Procedure Name Responsible Anesthesiologist Anesthesia Start Time Anesthesia Stop Time DEBRIDEMENT SKIN AND SUBCU, LOWER EXTREMITY (WRVU 1.01) (Left: Leg) Edison Gamez MD 02/10/21 0938 02/10/21 1039 Events Date Time Event Comment 02/10/2021 0900 0938 AN Verify 0938 Start 0938 An Start Data 0947 An Induction 0949 An Intubation 0950 Anesthesia Ready 0958 Quick Note No AB per surge on request-on AB regimen 1002 Procedure Start 1030 Extubation/LMA Out 1033 an stop data 1038 Recovery or ICU Handoff Adilene ent care was transferred to the destination unit staff after review of the patient's medical history, current anesthetic/surgical status and plan, according to the Provider Handoff Checklist. 1039 Stop Meds Name Total fentaNYL 50 mcg IV Lidocaine 40 mg Propofol 150 mg Ondansetron 8 mg Lactated Ringers 350 mL * Agents Name O2 Air N2O Sevoflurane (et) * Blood No blood administrations on file. Lines, Drains, and Airways Type Details Placement Removal Incision 12/14/17; 0808; elbow; LDA not present upon assessment; 02/12/21; 92512/14/17 0808 by Patricia Razo RN 02/12/21 0926 by Liane Granger RN Incision 09/11/19; 1131; jaw; LDA not present upon assessment; 02/12/21; 92409/11/19 1131 by Gabby Fontenot RN 02/12/21 0925 by Liane Granger RN Incision 09/11/19; 1131; jaw; LDA not present upon assessment; 02/12/21; 92409/11/19 1131 by Gabby Fontenot RN 02/12/21 0925 by Liane Granger RN (RETIRED) Peripheral IV Line - Single Lumen 02/07/21; 2200; median cubital vein (antecubital fossa), left; haax-jie-jfkxaf catheter system; 20 gauge; MOLINA, PEÑA; removed per policy/procedure, site care per policy/procedure, catheter/device intact; 02/11/21; 0255 02/07/21 2200 by Juani Kang RN 02/11/21 0255 by Lisbeth Mar RN Incision 02/08/21; 1014; Left ; ankle; vertical; 04/19/22 (LDA cleanup utility RA#[id number]); 1715 (LDA cleanup utility RA#[id number]) 02/08/21 1014 by Shasta Tejada RN 04/19/22 1715 by Kaylin Hart NPWT 02/08/21; 1026; Left ; ankle; 03/13/21; 0900 02/08/21 1026 by Shasta Tejada RN 03/13/21 0900 by Jeyson Armendariz Supraglottic Mask Ventilation: No t Attempted (0); LMA Type: iGel; LMA Size: 4; Inserted by: radha; Removal Date: 02/10/21; Removal Time: 1030 02/10/21 0949 by Seth Snow CRNA 02/10/21 1030 by Seth Snow CRNA documented in this encounter Social History [...] Postprocedure Evaluation - Edison Gamez MD - 02/10/2021 7:41 PM EDT Department of Anesthesiology Post-procedure Note Patient: Jesenia Méndez Procedure Summary Date: 02/10/21 Room / Location: [facility] OR [address] [place] [address] MAIN OR Anesthesia Start: 937 Anesthesia Stop: 1038 Procedures: DEBRIDEMENT SKIN AND SUBCU, LOWER EXTREMITY (WRVU 1.01) (Left Leg) MODIFIER WOUND VAC (Left ) Diagnosis: (Left ankle infection) Surgeons: Jacobo De La Cruz MD Responsible Provider: Edison Gamez MD Anesthesia Type: general ASA Status: 2 All Anesthesia Providers: Anesthesiologist: Edison Gamez MD INSPECTOR GLASS OR MIRROR: Seth Snow CRNA Vitals Value Taken Time BP 125/60 02/10/21 1100 Temp 36.5 ??C (97.7 ??F) 02/10/21 1035 Pulse 93 02/10/21 1108 Resp 13 02/10/21 1108 SpO2 96 % 02/10/21 1130 Pain Level 7 02/10/21 1118 Vitals shown include unvalidated device data. Patient Location: PACU/[facility] Level of Consciousness: Awake and Alert Pain Management: Satisfactory Analgesia PONV: None Cardiovascular Status: At Baseline Respiratory Status: At Baseline Postoperative Fluid Status: Intravascular EUvolemia Possible Anesthetic Complications: NONE apparent at time of evaluation Final Primary Anesthesia Type: General (The anesthetic type performed was the same as planned.) Comments: Awake and doing well at time of my exam in PACU eariler * Anesthesia Preprocedure Evaluation - Edison Gamez MD - 02/10/2021 6:30 AM EDT Pre-Anesthesia Evaluation for: eJsenia Méndez a 60 y.o. female. Procedure(s): DEBRIDEMENT SKIN AND SUBCU, LOWER EXTREMITY (WRVU 1.01) MODIFIER WOUND VAC Patient Active Problem List Diagnosis ??? Ankle abscess ??? Closed fracture of left ankle with [...] 4.06) performed by Wesley Jacobo MD at [facility] ? ? PRO DEBRIDEMENT SUBCUTANEOUS TISSUE 20 SQCM/< Left 02/08/2021 DEBRIDEMENT SKIN AND SUBCU, LOWER EXTREMITY (WRVU 1.01) [facility] ??? PRO FUSION/GRAFT OF ELBOW JOINT Right 2017 ARTHRODESIS, ELBOW JOINT WITH AUTOGENOUS GRAFT (WRVU 14.32) performed by Christopher Correa MD at [facility] MAIN OR ??? PRO REMOVAL DEEP IMPLANT Right 2017 REMOVAL OF IMPLANT, DEEP, ELBOW (WRVU 5.96) performed by Christopher Correa MD at [facility] MAIN OR ??? PRO REMOVAL ERUPTED TOOTH WITH ELEVATION OF MUCOPERIOSTEAL FLAP Bilateral 09/11/2019 SURGICAL EXTRACTIONS REQUIRING ELEVATION OF MUCOPERIOSTEAL FLAP AND REMOVAL OF BONE OR SECTION OF TOOTH (WRVU 1.09) performed by Wesley Jacobo MD at [facility] Social History Tobacco Use ??? Smoking [...] REMOVE Please contact the Blood Bank at [phone] for questions. ??? Pollen Extracts Other (See Comments) Rhinusitus ??? Trazodone Other (See Comments) Hallucination ??? Adhesive Rash Skin Rash ??? Lisinopril Other (See Comments) Cough. Medications: MAR and/or home medications have been reviewed. Physical Exam: Preprocedure Vitals Current as of 02/10/21 0630 BP: 125/57 Pulse: 87 Resp: 16 SpO2: Temp: 36.8 ??C (98.2 ??F) Height: 157.5 cm (5' 2) (02/07/21) Weight: 83 kg (183 lb) (02/07/21) BMI: 33.47 IBW: 50.1 kg (110 lb 7.8 oz) Last edited 02/09/212109 by SO Currently displaying vitals information from multiple entries within 90 minutes of most recent vitals. Airway Assessment: Mallampati: II TM distance: >3 FB Neck ROM: full Prior Grade 1 Prior Igel4 Cardiovascular Assessment: Rhythm: regular Rate: normal Pulmonary Assessment: breath sounds clear to auscultation Dental Assessment: - normal exam Misc Assessment: Last Filed Perioperative Cognitive Screening None Anesthesia Plan: ASA 2 general, with a(n) intravenous induction Addendum 02/10/2021 (MD Franco): 60yo for repeat I&D of LLE for infxn. Prior EZ airway. IDDM. Obesity. Feels well currently. + hungry. No nausea. No overnight change. Serial consent verified. Pt requests to proceed. Minimal pain in ankle Region - Other Informed Consent: Anesthetic plan and risks discussed with patient. Plan discussed with INSPECTOR GLASS OR MIRROR. Anesthesia Screening documented in this encounter Plan of Treatment Not on file documented as of this encounter Visit Diagnoses Not on filedocumented in this encounter Administered Medications Inactive Administered Medications - up to 3 most recent administrations Medication Order MAR Action Action Date Dose Rate Site fentaNYL (pf) (50 mcg/mL) multi-dose injection Intravenous, PRN, Starting on Tue02/10/21 at 0952, Until Tue02/10/21 at 1042, Anesthesia Intra-op, Routine Given 02/10/2021 10:04 AM EDT 25 mcg Given 02/10/2021 9:52 AM EDT 25 mcg lactated ringers infusion Intravenous, CONTINUOUS PRN, Starting on Tue02/10/21 at 0938, Until Tue02/10/21 at 1042, Anesthesia Intra-op New Bag 02/10/2021 9:38 AM EDT lidocaine (pf) (Xylocaine) (20 mg/mL) 2% injection syringe Intravenous, PRN, Starting on Tue02/10/21 at 0947, Until Tue02/10/21 at 1042, Anesthesia Intra-op, Routine Given 02/10/2021 9:47 AM EDT 40 mg ondansetron (pf) (Zofran) (2 mg/mL) injection Intravenous, PRN, Starting on Tue02/10/21 at 1017, Until Tue02/10/21 at 1042, Anesthesia Intra-op, Routine Given 02/10/2021 10:22 AM EDT 4 mg Given 02/10/2021 10:17 AM EDT 4 mg propofoL (Diprivan) 10 mg/mL bolus injection (Anesthesia) Intravenous, PRN, Starting on Tue02/10/21 at 0947, Until Tue02/10/21 at 1042, Anesthesia Intra-op Given 02/10/2021 9:48 AM EDT 50 mg Given 02/10/2021 9:47 AM EDT 100 mg documented in this encounter Care Teams Clothing Designer Relationship Specialty Start Date End Date Maryuri Evnas MD [address] [place] [address] PCP - General 09/23/14 documented as of this encounter
--- OUTSIDE RECORDS SUMMARY | 2024-05-31 17:48 | XMS_ITS | Encounter Summary ---
Author Organization [facility] [place] [address] Care Team Providers Care Bundle Breaker Name Role Phone Maryuri Evans MD Primary Care Provider [phone] Reason for Visit * Reason Comments Cast Problem * Auth/Cert Specialty Diagnoses / Procedures Referred By Contac t Referred To Contact Diagnoses Abscess of ankle Ankle abscess Procedures Emergency IPI Referral ID Status Reason Start Date Expiration Date Visits Re quested Visits Authorized [id number] 1 1 Encounter Details Date Type Department Care Team (Late st Contact Info) Description 02/08/2021 9:40 AM EDT - 02/08/2021 10:40 AM EDT [place] [id number] Henrry Quiñones MD [facility] [place] [address] DEBRIDEMENT SKIN AND SUBCU, LOWER EXTREMITY (WRVU [...] Sign Reading Time Taken Comments Blood Pressure 162/91 02/08/2021 7:55 AM EDT Pulse 114 02/07/2021 10:04 PM EDT Temperature 36.9 ??C (98.4 ??F) 02/08/2021 7:55 AM ED T Respiratory Rate 18 02/08/2021 7:55 AM EDT Oxygen Saturation 97% 02/08/2021 7:55 AM EDT Inhaled Oxygen Concentration - - Weight 83 kg (183 lb) 02/07/2021 2:38 PM EDT Height 157.5 cm (5' 2) 02/07/2021 2:38 PM EDT Body Mass Index 33.47 02/07/2021 2:38 PM EDT documented in this encounter Discharge Summaries * Cami Ugarte APRN - 02/18/2021 7:40 AM EDT Discharge Summary Patient Name: Jesenia Méndez Patient Age: 60 y.o. Language: Irish Race: White Ethnicity: Not nor Admit date: [...] please contact your inpatient physician through the [facility] Apn . Issues afterhours and on weekends will [...] internal fixation on January 21, 2021 at [facility] for left ankle fracture that she [...] plate, and had cast exchange done at [facility] Ortho clinic yesterday. She reported that her [...] have questions please contact the health healthcare applications analyst that requested your imaging first. Electronically signed by: Anthony Carrillo MD, [facility] ([phone]), at 02/07/2021 3:[address] Lower Extremity [...] have questions please contact the health healthcare applications analyst that requested your imaging first. Electronically signed by: Meli Gonzales MD, [facility] ([phone]), at 02/07/2021 6:17 PM XR Ankle Min [...] have questions please contact the health healthcare applications analyst that requested your imaging first. Electronically signed by: Christian Leon MD, [facility] ([phone]), at 02/14/2021 2:58 AM XR PICC Placement [...] have questions please contact the health healthcare applications analyst that requested your imaging first. Electronically signed by: BLAZE SALEEM MD, [facility] ([phone]), at 02/14/2021 9:[address] Angiogram Lower [...] have questions please contact the health healthcare applications analyst that requested your imaging first. Electronically signed by: [facility] ([phone]), at 02/16/2021 4:46 PM Pending Studies and Lab Data: None Discharge Conditions/Prognosis: Stable/fair Discharge to: Home w/ OPAT, VNA Updated Allergies/ADRs: Allergies Allergen Reactions ??? Latex Rash ??? Erythromycin Lactobionate Nausea Only ??? Metformin Nausea Only ??? Red Blood Cells Other (See Comments) Antibodies-Difficult to Crossmatch DO NOT REMOVE Please contact the Blood Bank at [phone] for questions. ??? Pollen Extracts Other (See [...] ankle needing wound vac, multiple debridements, and usp IV antibiotics Specific instructions related to your [...] Center 03/05/2021 4:00 PM Cyndy Moran APRN [facility] ID 5C [facility] 03/20/2021 9:00 AM Juani Miller DO [facility] ID [address] [place] [address] 03/20/2021 1:00 PM CAST ROOM 3A [facility] ORTH [address] [place] [address] 03/20/2021 1:30 PM [facility] DX ROOM 3 Xray [facility] 03/20/2021 2:20 PM Dorina Campbell APRN [facility] ORTH [address] [place] [address] Your Inpatient Doctor: MARK CHAVEZ NAYLA MATHEW, ROBERT K Your Primary Care Provider: Maryuri Evans MD For questions regarding this document or issues relating to this hospitalization on the Medical Service, please contact your inpatient physician through the [facility] Apn . Issues afterhours and on weekends will be handled by the Hospitalist staff on-call. General Instructions None Future Appointments and Orders Future Appointments and Orders Future Appointments Provider Department Dept Phone 03/05/2021 4:00 PM Cyndy Moran APRN Infectious Disease at [facility] Arrive at: Emergency Vehicle Dispatcher Area [phone] 03/20/2021 9:00 AM Juani Miller DO Infectious Disease at [facility] Arrive at: Emergency Vehicle Dispatcher Area [phone] 03/20/2021 1:00 PM CAST ROOM 3A Orthopaedics at [facility] Arrive at: Emergency Vehicle Dispatcher Area 3A [phone] 03/20/2021 1:30 PM [facility] DX ROOM 3 XRay at [facility] Arrive at: Emergency Vehicle Dispatcher Area [phone] Please go to Emergency Vehicle Dispatcher Area 3T ([place] Location). 03/20/2021 2:20 Dorina Meyers APRN Orthopaedics at [facility] Arrive at: Emergency Vehicle Dispatcher Area 3A [phone] Future Orders Complete By Expires Full code [...] Recommendation for Post Discharge IV Antibiotic Management [DAF149 CPT(R)] As directed Process Instructions: If no progress note charted, please enter Clinical details in comments. Scheduling Instructions: Comments: Please Fax all results to: OPAT Program Infectious Disease Section [facility], [place] [address] FAX: After hours, please contact the Infectious Disease Physician archivist economic history at . If this order was signed greater than 72 hours prior to [facility] discharge, please call to confirm the accuracy [...] Saline then 3 ml heparin (10 units/ml) alf for medication administration/supervisor functional testing and catheter care/maintenance authorized. PICC Dressing Change [...] Tuesday and PRN and fax results to [facility] at [phone]. Please see OPAT order for lab draw [...] 157.5 cm (5' 2) Infectious Disease Attending: eDlfina Harris MD Referral to Home Health - at DISCHARGE [DPH2942 CPT(R)] As directed Process Instructions: Scheduling Instructions: Comments: DOCUMENTATION FOR VNA SERVICES (INCLUDING THOSE PATIENTS WITH MEDICARE COVERAGE REQUIRING HOME VNA SERVICES AND/OR HOSPICE SERVICES) PATIENT'S LOCATION: Jesenia Méndez [address] [facility] [address] Pump Mechanic's Name: Patient & family In discussion with the attending physician, it is certified that this patient is under their care and that they, or a Nurse Practitioner,Clinical Nurse specialist or Physician Street Light Servicer Helper who is working directly with them, had [...] assess and continue rehab for managing ADL's. DETECTIVE AUTOMOBILE SECTION: assist with ADLs as directed by RN HOME HEALTH CARE AGENCY: [facility] PHONE: [phone] FAX: [phone] Start of care: 24-48 hours of discharge Please note that any additional orders needs or changes will need to be obtained from this patient's PCP: Maryuri Evans MD [address] [facility] [id number] All VNA agencies which cover the area of patient's residence have been reviewed, either verbally jeaneth writing, and patient/family have chosen the home health care agency noted Questions: Agency name and contact information: [facility] Patient location post discharge: Home What services are requested: Registered Nurse Physical Therapy Occupational Therapy Home Health Aide Start date: Responsible MD post discharge contact info: PCP Harinder joy [[id number] Custom] As directed Process Instructions: Scheduling Instructions: Comments: Jesenia Méndez [address] [facility] [address] [place] [phone] Diagnosis: Left ankle I&D for abscess and [...] ORIF (Open Reduction With Internal Fixation): Post-op (Irish) documented in this encounter Discharge Instructions * Patient Instructions* Cami Ugarte APRN - 02/18/2021 2:50 PM EDT Instructions on Discharge to Home Why you were hospitalized: infected hardware of L ankle needing wound vac, multiple debridements, and rodent exterminator IV antibiotics Specific instructions related to your [...] Center 03/05/2021 4:00 PM Cyndy Moran APRN [facility] ID 5C [facility] 03/20/2021 9:00 AM Juani Miller DO [facility] ID 5C [facility] 03/20/2021 1:00 PM CAST ROOM 3A [facility] ORTH 3A [facility] 03/20/2021 1:30 PM [facility] DX ROOM 3 MH Xray [facility] Rad 03/20/2021 2:20 PM Dorina Campbell APRN [facility] ORTH 3A [facility] Your Inpatient Doctor: MARK CHAVEZ NAYLA MATHEW, ROBERT K Your Primary Care Provider: Maryuri Evans MD For questions regarding this document or issues relating to this hospitalization on the Medical Service, please contact your inpatient physician through the [facility] Apn . Issues afterhours and on weekends will be handled by the Hospitalist staff on-call. * Attachments The following attachments cannot be sent through Care Everywhere. * ORIF (Open Reduction With Internal Fixation): Post-op (Irish) documented in this encounter Medications at Time [...] Plan for discharge is: Agency Referrals: 1. [facility]- ref done & order [...] Insurance: N/A Prescription Coverage: YES Preferred Pharmacy: [facility] [place], [place] - [address] [place] [id number] This plan was formulated with input from patient, father and team. All are in agreement with plan. Jacqui Lo RN Case Heating Equipment Installer of Care Management Pager: [phone] Ext: [phone] * Jacqui Lo RN - 02/18/2021 4:00 PM EDTSummary: CM Progress Note Payroll Coordinator asking RS to please place referral to: Ortho Care Located @ [facility] Center [place], [place] Patient needs a walker with a right platform. Jacqui Lo RN, BSN, MST, ACM Child Nutrition Manager pager#[phone] * Kalyani Dotson RN - 02/18/2021 3:15 PM EDTSummary: OPAT teach Infectious Disease/OPAT Program Teaching Visit Met with patient and her father at the bedside to discuss discharge on IV ABX. Patient was engaged in listening to the education; the father only listened to part of it. Patient verbally agrees to the personal responsibilities, and role of the DETECTIVE AUTOMOBILE SECTION, of being in the OPAT program although [...] to contact. Reviewed roles and responsibilities of DETECTIVE AUTOMOBILE SECTION and infusion vendor. Contact information for ID and ortho team/clinic, DETECTIVE AUTOMOBILE SECTION and infusion vendor given to pt. Discussed f/u appointments in ID 5C clinic. Pt verbalized understanding. All questions answered. IV & PO ABX Medications: Daptomycin 700mg IV Q24h DETECTIVE AUTOMOBILE SECTION: [facility] Infusion vendor: [employer] [facility] IV Access: PICC (single lumen) Placed: 02/14 Plan: discharge on OPAT program when medically ready. * Mable Brooks OTA - 02/18/2021 1:14 PM EDT Occupational Therapy Treatment Note Treatment Number OT: 3 Patient Dx: ?? Patient Dx: Jesenia Méndez??is a 60 y.o.?female??with??PMH significant for ID T2DM, R elbow fusion with serial casting, and L ankle fracture S/P ORIF at [facility] (01/21/21)??who presented to the ED [...] 4.06) performed by Wesley Jacobo MD at [facility] OSC ? ? PRO DEBRIDEMENT SUBCUTANEOUS TISSUE 20 SQCM/< Left 02/08/2021 ?? DEBRIDEMENT SKIN AND SUBCU, ??LOWER EXTREMITY (WRVU 1.01) performed by Henrry Quiñones MD [facility] MAIN OR ??? PRO FUSION/GRAFT OF ELBOW JOINT Right 2017 ?? ARTHRODESIS, ELBOW JOINT WITH AUTOGENOUS GRAFT (WRVU 14.32) performed by Christopher Correa MD at [facility] MAIN OR ??? PRO REMOVAL DEEP IMPLANT Right 2017 ?? REMOVAL OF IMPLANT, DEEP, ELBOW (WRVU 5.96) performed by Christopher Correa MD at [facility] MAIN OR ??? PRO REMOVAL ERUPTED TOOTH WITH ELEVATION OF MUCOPERIOSTEAL FLAP Bilateral 09/11/2019 ?? SURGICAL EXTRACTIONS REQUIRING ELEVATION OF MUCOPERIOSTEAL FLAP AND REMOVAL OF BONE OR SECTION OF TOOTH (WRVU 1.09) performed by Wesley Jacobo MD at [facility] ?? Social History: Patient lives??with [...] Total Minutes, Occupational Therapy: 16 (Schmx1) Pager: [phone] MARIE Thomas 02/18/2021 Occupational Therapy Rehabilitation Department * Jacqui Lo RN - 02/18/2021 10:13 AM EDTSumcorrine: SHANTAL Progress Note OFFICE OF CARE MANAGEMENT ?? Child Nutrition Manager Follow-up Note ?? S/O: Discussed plan of [...] drainage after having ORIF on 01/21/2021 at [facility]. CT of the ankle showed LLEcellulitis with small abscess at the lateral malleolus.? Current referrals in place: 1. [facility]- ref done & order pended 2. [facility]- ref done- waiting on OPAT orders- Daptomycin daily 3. [facility]- patient will require a wound vac at discharge. Payroll Coordinator working with Michael @ [facility] to get this approved. ?? A: Patient medical ready for discharge home with VNA and IVABX from [facility] with support of family. Patient declining to go to rehab and insists upon going home. Team is providing as much education as possible to patient to assure that she understands her needs and follows the plan for optimal recovery. ?? P:Child Nutrition Manager to follow with team and family to assist with discharge needs when patient ready fordischarge. ?? Jacqui Lo RN, Child Nutrition Manager Pager #[phone] * Yunior Rodriguez DO - 02/18/2021 7:39 AM EDT HOSPITAL MEDICINE ATTENDING DAY OF DISCHARGE NOTE Patient Jesenia Méndez 1960 [id number] Physician Yunior Rodriguez DO Pager: [phone] Hospitalist Encounter Date February 19, 2021 PCP Maryuri Evans MD PCP phone [phone] Discharge diagnosis Active Hospital Problems Diagnosis ? [...] of amputation if antibiotics not completed and pof-svvlpk-dttktqd status maintained. This risk explained to patient and father before discharge. I have personally seen and examined the patient and they are ready for discharge. I spent >30 minutes (Day of Discharge Code 21865) involved in the final examination of the patient, discussion of the hospital stay, instructions for continuing care to all relevant caregivers, and preparation of discharge records, prescriptions and referral forms. Plans Discharge to home with VNA Follow-up scheduled with Future Appointments Date Time Provider Department Center 03/02/2021 3:00 PM Aydee Franklin MD [facility] PLAS 4M [facility] 03/05/2021 4:00 PM Cyndy Moran APRN [facility] ID 5C [facility] 03/20/2021 9:00 AM Juani Miller DO [facility] ID 5C [facility] 03/20/2021 1:00 PM CAST ROOM 3A [facility] ORTH 3A [facility] 03/20/2021 1:30 PM [facility] DX ROOM 3 MH Xray [facility] Rad 03/20/2021 2:20 PM Dorina Campbell APRN [facility] ORTH [address] [place] [address] Please see the Discharge Summary for complete details of any medication changes and additional plans. Yunior Rodriguez DO Pager: [phone] February 19, 2021 9:54 PM * Ruben [...] Follow-up: Pending hospital course Ruben Damian MD P.[id number] Associated attestation - Sabrina Capellan MD - [...] UP NOTE Patient ID: Jesenia Méndez Room: [address] [place] [address] Active ID Issue(s): Post-op hardware infection s/p [...] a history of ORIF left ankle at [facility] on 01/21/21 complicated by skin/soft tissue infection [...] the patient today. Delfina Harris MD Page [phone] All of this 25 minute visit were spent on the floor/unit in coordination of care for the patient, regarding treatment of infection as detailed in note above. * Jacqui Lo RN - 02/17/2021 4:22 PM EDTSumcorrine: SHANTAL Progress Note OFFICE OF CARE MANAGEMENT Child Nutrition Manager Follow-up Note S/O: Discussed plan of care with Primary team and Nursing to assess continuing care and discharge needs. LOS: 10 days Primary Insurance: MEDICAID [place] Secondary Insurance: N/A DECISION MAKER: Patient able to make decisions for herself. No ADs on file in [facility]. Pt continues to require hospitalization for: 02/17 Dr. [employer] Consult Note: 60 y.o.??female??with past medical history of diabetes, hypothyroidism, depression, psoriasis, chronic headaches, presenting with complaints of left ankle swelling, pain, erythema??and purulent drainage after having ORIF on 01/21/2021 at [facility]. CT of the ankle showed [...] (end 03/26). Current referrals in place: 1. [facility]- ref done & order pended 2. [facility]- ref done- waiting on OPAT orders 3. [facility]- patient will require a wound vac at discharge. A: Patient nearing medical readiness for discharge home with VNA and [place]ABX from [place] with support of family. P:Child Nutrition Manager to follow with team and family to assist with discharge needs when patient ready fordischarge. Jacqui Lo RN, Child Nutrition Manager Pager #[phone] * Anthony Fermin MD - 02/17/2021 10:57 [...] Department of Orthopaedics 02/18/21 * Cami Ugarte, DEPUTY ASSESSOR - 02/17/2021 8:36 AM EDT Hospital Medicine [...] purulent drainageafter having ORIF on 01/21/2021 at [facility]. CT of the ankle showed [...] cellulitis and abscess: -Following recent ORIF at [facility] s/p mechanical fall w/ fracture [...] GI prophylaxis Home ppi DVT prophylaxis Lovenox PT/OT/PROCESS LABORATORY SPECIALIST PT/OT Wound Care Anticipated Disposition TBD Code Status Attempt Cardiopulmonary Resuscitation - Inpatient Team Pager ( coverage 14/03) [phone] PCP Maryuri Evans MD Family Update Family [...] have questions please contact the health healthcare applications analyst that requested your imaging first. Electronically signed by: Anthony Carrillo MD, [facility] ([phone]), at 02/07/2021 3:[address] Lower Extremity [...] have questions please contact the health healthcare applications analyst that requested your imaging first. Electronically signed by: Meli Gonzales MD, [facility] ([phone]), at 02/07/2021 6:17 PM XR Ankle Min [...] have questions please contact the health healthcare applications analyst that requested your imaging first. Electronically signed by: Christian Leon MD, [facility] ([phone]), at 02/14/2021 2:58 AM XR PICC Placement [...] have questions please contact the health healthcare applications analyst that requested your imaging first. Electronically signed by: BLAZE SALEEM MD, [facility] ([phone]), at 02/14/2021 9:[address] Angiogram Lower [...] have questions please contact the health healthcare applications analyst that requested your imaging first. Electronically signed by: David Unger MD, [facility] ([phone]), at 02/16/2021 4:46 PM Other studies/procedures: Procedure(s): [...] Follow-up: Pending hospital course Ruben Damian MD P.[id number] Associated attestation - Sabrina Capellan MD - [...] status LLE/RUE. Will continue to follow. Pager: [phone] MARIE Thomas 02/16/2021 Occupational Therapy Rehabilitation Department [...] ??? Psoriasis Interval History: - NPO at [facility] tonight for OR tomorrow--possible abx spacer vs [...] purulent drainageafter having ORIF on 01/21/2021 at [facility]. CT of the ankle showed [...] cellulitis and abscess: -Following recent ORIF at [facility] s/p mechanical fall w/ fracture [...] GI prophylaxis Home ppi DVT prophylaxis Lovenox PT/OT/PROCESS LABORATORY SPECIALIST PT/OT Wound Care Anticipated Disposition TBD Code Status Attempt Cardiopulmonary Resuscitation - Inpatient Team Pager ( coverage 14/03) [phone] PCP Maryuri Evans MD Family Update Family [...] have questions please contact the health healthcare applications analyst that requested your imaging first. Electronically signed by: Anthony Carrillo MD, [facility] ([phone]), at 02/07/2021 3:[address] Lower Extremity [...] have questions please contact the health healthcare applications analyst that requested your imaging first. Electronically signed by: Meli Gonzales MD, [facility] ([phone]), at 02/07/2021 6:17 PM XR Ankle Min [...] have questions please contact the health healthcare applications analyst that requested your imaging first. Electronically signed by: Christian Leon MD, [facility] ([phone]), at 02/14/2021 2:58 AM XR PICC Placement [...] have questions please contact the health healthcare applications analyst that requested your imaging first. Electronically signed by: BLAZE SALEEM MD, [facility] ([phone]), at 02/14/2021 9:22 AM Other studies/procedures: Procedure(s): [...] Follow-up: Pending hospital course Ruben Damian MD P.[id number] Associated attestation - Sabrina Capellan MD - [...] consulted in the interim. EARL Campo Pager: [phone] * Adalberto Mckeon PA - 02/15/2021 2:17 [...] purulent drainageafter having ORIF on 01/21/2021 at [facility]. CT of the ankle showed [...] cellulitis and abscess: -Following recent ORIF at [facility] s/p mechanical fall w/ fracture [...] GI prophylaxis Home ppi DVT prophylaxis Lovenox PT/OT/PROCESS LABORATORY SPECIALIST PT/OT Wound Care Anticipated Disposition TBD Code Status Attempt Cardiopulmonary Resuscitation - Inpatient Team Pager ( coverage 14/03) [phone] PCP Maryuri Evans MD Family Update Family [...] have questions please contact the health healthcare applications analyst that requested your imaging first. Electronically signed by: Anthony Carrillo MD, [facility] ([phone]), at 02/07/2021 3:[address] Lower Extremity [...] have questions please contact the health healthcare applications analyst that requested your imaging first. Electronically signed by: Meli Gonzales MD, [facility] ([phone]), at 02/07/2021 6:17 PM XR Ankle Min [...] have questions please contact the health healthcare applications analyst that requested your imaging first. Electronically signed by: Christian Leon MD, [facility] ([phone]), at 02/14/2021 2:58 AM XR PICC Placement [...] have questions please contact the health healthcare applications analyst that requested your imaging first. Electronically signed by: BLAZE SALEEM MD, [facility] ([phone]), at 02/14/2021 9:22 AM Other studies/procedures: Procedure(s): [...] Follow-up: Pending hospital course Seth Yarbrough MD P.[phone] Associated attestation - Sabrina Capellan MD - [...] Center 03/20/2021 1:00 PM CAST ROOM 3A [facility] ORTH 3A [facility] 03/20/2021 1:30 PM [facility] DX ROOM 3 Xray [facility] Rad 03/20/2021 2:20 PM Dorina Campbell APRN [facility] ORTH [address] [place] [address] Associated attestation - Sabrina Capellan MD - [...] new organisms identified. Micro: Abscess/Wound Aspirate Culture [[id number]] (Abnormal) Collected: 02/08/21 1030 Lab Status: Final [...] purulent drainageafter having ORIF on 01/21/2021 at [facility]. CT of the ankle showed LLE cellulitis with small abscess at the lateral malleolus. Plan for patient to go back to OR today for I&D and wound vac change. ID discussing appropriateness for transition to daptomycin vs. Nafcillin (in setting of MSSA & enterococcus). PICC placedyesterday due to access issues. #LLE MSSA & Enterococcus cellulitis and abscess: -Following recent ORIF at [facility] s/p mechanical fall w/ fracture [...] GI prophylaxis Home ppi DVT prophylaxis Lovenox PT/OT/PROCESS LABORATORY SPECIALIST PT/OT Wound Care Anticipated Disposition TBD Code [...] have questions please contact the health healthcare applications analyst that requested your imaging first. Electronically signed by: Anthony Carrillo MD, [facility] ([phone]), at 02/07/2021 3:[address] Lower Extremity [...] have questions please contact the health healthcare applications analyst that requested your imaging first. Electronically signed by: Meli Gonzales MD, [facility] ([phone]), at 02/07/2021 6:17 PM XR Ankle Min [...] have questions please contact the health healthcare applications analyst that requested your imaging first. Electronically signed by: Christian eLon MD, [facility] ([phone]), at 02/14/2021 2:58 AM XR PICC Placement [...] have questions please contact the health healthcare applications analyst that requested your imaging first. Electronically signed by: BLAZE SALEEM MD, [facility] ([phone]), at 02/14/2021 9:22 AM Other studies/procedures: Procedure(s): [...] to commode. Will continue to follow. Pager: [phone] MARIE Thomas 02/13/2021 Occupational Therapy Rehabilitation Department [...] purulent drainageafter having ORIF on 01/21/2021 at [facility]. CT of the ankle showed [...] GI prophylaxis Home ppi DVT prophylaxis Lovenox PT/OT/PROCESS LABORATORY SPECIALIST PT/OT Wound Care Anticipated Disposition TBD Code [...] have questions please contact the health healthcare applications analyst that requested your imaging first. Electronically signed by: Anthony Carrillo MD, [facility] ([phone]), at 02/07/2021 3:[address] Lower Extremity [...] have questions please contact the health healthcare applications analyst that requested your imaging first. Electronically signed by: Meli Gonzales MD, [facility] ([phone]), at 02/07/2021 6:17 PM Other studies/procedures: Procedure(s): DEBRIDEMENT SKIN AND SUBCU, LOWER EXTREMITY (WRVU 1.01) IMANI [place] 02/13/2021 * Jacqui Lo RN - 02/13/2021 2:01 PM EDTSumvalerioy: SHANTAL Progress Note IDR Rounds: Per provider: Patient not medically ready for discharge till next week. Patient likely to go home with IVABX and VNA services with support of family. Services: 1.?[facility] ?? PHONE: [phone] FAX: [phone] 2.[facility] [place] or ? 3.?Name: [employer] Tel.#: ext [phone] fax#: Equipment ordered:wound vac Transport: family A member of the Care Management team will continue to monitor progress, follow for continuity of care and assist with transition of care planning. Jacqui Lo RN, BSN, MST, ACM Child Nutrition Manager pager#[phone] * Nilton Nicole MD - 02/13/2021 5:43 [...] SHANTAL Progress Note OFFICE OF CARE MANAGEMENT Child Nutrition Manager Follow-up Note S/O: Discussed plan of care [...] s/p bivalve Current referrals in place: 1. [facility] PHONE: [phone] FAX: [phone] 2.[place], [place] or 3. Name: GABRIELE Tel.#:[phone] ext [phone] fax#: Equipment ordered:wound vac Payroll Coordinator asking RS to please place referral to: [place], [place] or A: Patient is nearing medical readiness for discharge if Ortho is able to close her wound and her cultures come back negative so a PICC line can be placed for IVABX at discharge. Patient likely medically ready for discharge over the weekend. P:Child Nutrition Manager to follow with team and family to assist with discharge needs when patient ready fordischarge. Jacqui Lo RN, Child Nutrition Manager Pager #[phone] * Cami Ugarte, DEPUTY ASSESSOR - 02/12/2021 8:19 AM EDT Hospital Medicine [...] purulent drainageafter having ORIF on 01/21/2021 at [facility]. CT of the ankle showed [...] cellulitis and abscess: -Following recent ORIF at [facility] s/p mechanical fall w/ fracture [...] GI prophylaxis Home ppi DVT prophylaxis Lovenox PT/OT/PROCESS LABORATORY SPECIALIST PT/OT Wound Care Anticipated Disposition TBD Code [...] have questions please contact the health healthcare applications analyst that requested your imaging first. Electronically signed by: Anthony Carrillo MD, [facility] ([phone]), at 02/07/2021 3:[address] Lower Extremity [...] have questions please contact the health healthcare applications analyst that requested your imaging first. Electronically signed by: [facility] ([phone]), at 02/07/2021 6:17 PM Other studies/procedures: Procedure(s): [...] Center 03/20/2021 1:00 PM CAST ROOM 3A [facility] [address] [place] [address] 03/20/2021 1:30 PM [facility] DX ROOM 3 MH Xray [facility] Rad 03/20/2021 2:20 PM Dorina Campbell APRN [facility] [address] [place] [address] * Yamilex Ruiz, ION EXCHANGE OPERATOR - 02/11/2021 2:33 PM EDT Physical Therapy Note Treatment Number PT: 2 Patient profile: Jesenia Méndez??is a 60 y.o.??female??with PMH significant for ID T2DM, R elbow fusion with serial casting, and L ankle fracture S/P ORIF at [facility] (01/21/21)??who presented to the ED [...] Time in 14:18-14:28) YAMILEX RUIZ PTA Pager: [phone] Physical Therapy Inpatient Rehabilitation Department * Dali Guerrier, DEPUTY ASSESSOR - 02/11/2021 1:48 PM EDT Hospital Medicine [...] purulent drainageafter having ORIF on 01/21/2021 at [facility]. CT of the ankle showed [...] cellulitis and abscess: -Following recent ORIF at [facility] s/p mechanical fall w/ fracture [...] GI prophylaxis Home ppr DVT prophylaxis Lovenox PT/OT/PROCESS LABORATORY SPECIALIST PT/OT Wound Care Anticipated Disposition TBD Code Status Attempt Cardiopulmonary Resuscitation - Inpatient Team Pager ( coverage 14/03) [phone] PCP Maryuri Evans MD [...] have questions please contact the health healthcare applications analyst that requested your imaging first. Electronically signed by: Anthony Carrillo MD, [facility] ([phone]), at 02/07/2021 3:[address] Lower Extremity [...] have questions please contact the health healthcare applications analyst that requested your imaging first. Electronically signed by: Meli Gonzales MD, [facility] ([phone]), at 02/07/2021 6:17 PM Other studies/procedures: Procedure(s): [...] and L ankle fracture S/P ORIF at [facility] (01/21/21)??who presented to the ED [...] 4.06) performed by Wesley Jacobo MD at [facility] OSC ? ? PRO DEBRIDEMENT SUBCUTANEOUS TISSUE 20 SQCM/< Left 02/08/2021 ?? DEBRIDEMENT SKIN AND SUBCU, LOWER EXTREMITY (WRVU 1.01) performed by Henrry Quiñones MD at [facility] MAIN OR ??? PRO FUSION/GRAFT OF ELBOW JOINT Right 2017 ?? ARTHRODESIS, ELBOW JOINT WITH AUTOGENOUS GRAFT (WRVU 14.32) performed by Christopher Correa MD at [facility] MAIN OR ??? PRO REMOVAL DEEP IMPLANT Right 2017 ?? REMOVAL OF IMPLANT, DEEP, ELBOW (WRVU 5.96) performed by Christopher Correa MD at [facility] MAIN OR ??? PRO REMOVAL ERUPTED TOOTH WITH ELEVATION OF MUCOPERIOSTEAL FLAP Bilateral 09/11/2019 ?? SURGICAL EXTRACTIONS REQUIRING ELEVATION OF MUCOPERIOSTEAL FLAP AND REMOVAL OF BONE OR SECTION OF TOOTH (WRVU 1.09) performed by Wesley Jacobo MD at [facility] Social History: Patient lives with [...] Total Minutes, Occupational Therapy: 30 (Schmx2) Pager: [phone] MARIE Thomas 02/11/2021 Occupational Therapy Rehabilitation Department * Nilton Nicole MD - 02/11/2021 5:54 AM EDT [facility] SURGERY INPATIENT PROGRESS NOTE Patient [...] Intake/Output Summary (Last 24 hours) at 02/11/2021 0588 Last data filed at 02/11/2021 0325 Gross [...] Center 03/20/2021 1:00 PM CAST ROOM 3A [facility] 03/20/2021 1:30 PM [facility] DX ROOM 3 MH Xray [facility] Rad 03/20/2021 2:20 PM Dorina Campbell APRN [facility] * Dali Guerrier APRN - 02/10/2021 3:40 [...] purulent drainageafter having ORIF on 01/21/2021 at [facility]. CT of the ankle showed [...] cellulitis and abscess: -Following recent ORIF at [facility] s/p mechanical fall w/ fracture [...] GI prophylaxis Home ppr DVT prophylaxis Lovenox PT/OT/PROCESS LABORATORY SPECIALIST PT/OT Wound Care Anticipated Disposition TBD Code [...] have questions please contact the health healthcare applications analyst that requested your imaging first. Electronically signed by: Anthony Carrillo MD, [facility] ([phone]), at 02/07/2021 3:[address] Lower Extremity [...] have questions please contact the health healthcare applications analyst that requested your imaging first. Electronically signed by: Meli Gonzales MD, [facility] ([phone]), at 02/07/2021 6:17 PM Other studies/procedures: Procedure(s): DEBRIDEMENT SKIN AND SUBCU, LOWER EXTREMITY (WRVU 1.01) Dali Guerrier APRN 02/10/2021 * Toño Odonnell MD - 02/10/2021 3:37 PM EDT [facility] SURGERY INPATIENT PROGRESS NOTE Patient [...] Center 03/20/2021 1:00 PM CAST ROOM 3A [facility] [address] [place] [address] 03/20/2021 1:30 PM [facility] DX ROOM 3 Xray [facility] Rad 03/20/2021 2:20 PM Dorina Campbell APRN [facility] [address] [place] [address] * Jacqui Lo RN - 02/10/2021 3:27 PM EDTSummary: SHANTAL Progress Note OFFICE OF CARE MANAGEMENT Child Nutrition Manager Follow-up Note S/O: Discussed plan of care [...] w/ possible closure, please keep NPO. The patient/sales representative consultant has been provided a list of Home Health Agencies/DME vendors which servetheir preferred geographic area. A letter describing our affiliations was reviewed with them and they were educated about their right to choose where referrals are placed. Patient requests referral to: 1. [facility]. PHONE: [phone] FAX: [phone] 2.[place], [place] or 3. Name: GABRIELE Tel.#: ext [phone] fax#: Equipment ordered:wound vac Expected date of discharge: 02/13?. Referral routed to the Disability Rater for matching with agency/vendor and to provide any required information. Patient lives with her father, son, DIL so she has someone available to assist her. Patient states that there is plenty of people to help her. A: Patient not medically ready for discharge. P:Child Nutrition Manager to follow with team and family to assist with discharge needs when patient ready fordischarge. Jacqui Lo RN, Child Nutrition Manager Pager #[phone] * Christy Huang RN - 02/10/2021 10:49 [...] appropriate/able. Delfina Marr, OTR/L Inpatient Rehab Pager: [phone] * Seth Yarbrough MD - 02/10/2021 5:54 [...] Center 03/20/2021 1:00 PM CAST ROOM 3A [facility] [address] [place] [address] 03/20/2021 1:30 PM MH DX ROOM 3 MH Xray [facility] Rad 03/20/2021 2:20 PM Dorina Campbell, DEPUTY ASSESSOR [facility] [address] [place] [address] * Anita Sosa RN - 02/10/2021 5:38 [...] CPG GOAL OUTCOME EVALUATION: * Dali Guerrier, DEPUTY ASSESSOR - 02/09/2021 2:39 PM EDT Hospital Medicine [...] purulent drainageafter having ORIF on 01/21/2021 at [facility]. CT of the ankle showed LLE cellulitis with small abscess at the lateral malleolus. OR planned for 02/10. Patient continues with wound vac to RLE. She endorses some increasing pain wound vac site. Pain relieved with PRN oxycodone. Patient remains hemodynamically stable. Continues on vancomycin. ?? #LLE cellulitis and abscess: -Following recent ORIF at [facility] s/p mechanical fall w/ fracture [...] GI prophylaxis Home ppr DVT prophylaxis Lovenox PT/OT/PROCESS LABORATORY SPECIALIST PT/OT Wound Care Anticipated Disposition TBD Code Status Attempt Cardiopulmonary Resuscitation - Inpatient Team Pager (MD coverage 14/03) [phone] PCP Maryuri Evans MD Family Update Family updated by team bedside Shared Visit This patient was seen in conjunction with Dr. Mayr as part of a shared visit. ROS: [...] have questions please contact the health healthcare applications analyst that requested your imaging first. Electronically signed by: Anthony Carrillo MD, [facility] ([phone]), at 02/07/2021 3:[address] Lower Extremity [...] have questions please contact the health healthcare applications analyst that requested your imaging first. Electronically signed by: Meli Gonzales MD, [facility] ([phone]), at 02/07/2021 6:17 PM Other studies/procedures: Procedure(s): [...] of two midnights or is on the [facility] inpatient only procedure list (status C) [...] and L ankle fracture S/P ORIF at [facility] (01/21/21) who presented to the [...] 4.06) performed by Wesley Jacobo MD at [facility] ? ? PRO DEBRIDEMENT SUBCUTANEOUS TISSUE 20 SQCM/< Left 02/08/2021 DEBRIDEMENT SKIN AND SUBCU, LOWER EXTREMITY (WRVU 1.01) [facility] ??? PRO FUSION/GRAFT OF ELBOW JOINT Right 2017 ARTHRODESIS, ELBOW JOINT WITH AUTOGENOUS GRAFT (WRVU 14.32) performed by Christopher Correa MD at [facility] MAIN OR ??? PRO REMOVAL DEEP IMPLANT Right 2017 REMOVAL OF IMPLANT, DEEP, ELBOW (WRVU 5.96) performed by Christopher Correa MD at [facility] MAIN OR ??? PRO REMOVAL ERUPTED TOOTH WITH ELEVATION OF MUCOPERIOSTEAL FLAP Bilateral 09/11/2019 SURGICAL EXTRACTIONS REQUIRING ELEVATION OF MUCOPERIOSTEAL FLAP AND REMOVAL OF BONE OR SECTION OF TOOTH (WRVU 1.09) performed by Wesley Jacobo MD at [facility] Social History: Lives with her [...] evaluation and TEF CLEMENTINE SANCHEZ, PT Pager: [phone] Physical Therapy Inpatient Rehabilitation Department * Nilton [...] Center 03/20/2021 1:00 PM CAST ROOM 3A [facility] 03/20/2021 1:30 PM [facility] DX ROOM 3 Xray [facility] Rad 03/20/2021 2:20 PM Dorina Campbell APRN [address] * Toño Odonnell MD - 02/08/2021 [...] Center 03/20/2021 1:00 PM CAST ROOM 3A [facility] 03/20/2021 1:30 PM [facility] DX ROOM 3 MH Xray [facility] Rad 03/20/2021 2:20 PM Dorina Campbell APRN [facility] [address] [place] [address] * Selina Ramirez RN - 02/08/2021 1:57 PM EDTSummary: [facility] OCM: VNA/vendor choice The patient/sales representative consultant has been provided a list of Home Health Agencies/DME vendors which servetheir preferred geographic area. Patient lives in [facility] [place] covered only by [facility]. She had been referred to this agency in the past. There would be no other VNA choices. N/A: A letter describing our affiliations was reviewed with them and they were educated about theirright to choose where referrals are placed. Discussed [facility] Star Quality Rating for Home care report. Patient requests referral to [facility] PHONE: [phone] FAX: [phone]. Expected date of discharge: 3-5 days. Referral routed to the Disability Rater for matching with agency/vendor and to provide any required information. [facility] multiple spindle screw machine operator Pager: [phone] * Ingrid Yañez RN - 02/08/2021 10:48 [...] to RN on 1W. * Cami Ugarte, DEPUTY ASSESSOR - 02/08/2021 7:39 AM EDT [facility] Medicine Daily Progress Note Admit Date: 02/07/2021 [...] purulent drainageafter having ORIF on 01/21/2021 at [facility]. CT of the ankle showed [...] cellulitis and abscess: -Following recent ORIF at [facility] s/p mechanical fall w/ fracture [...] GI prophylaxis Home ppr DVT prophylaxis Lovenox PT/OT/PROCESS LABORATORY SPECIALIST PT/OT Wound Care Anticipated Disposition TBD Code Status Attempt Cardiopulmonary Resuscitation - Inpatient Team Pager (MD coverage 14/03) [phone] PCP Maryuri Evans MD Family Update Family [...] have questions please contact the health healthcare applications analyst that requested your imaging first. Electronically signed by: Anthony Carrillo MD, [facility] ([phone]), at 02/07/2021 3:[address] Lower Extremity [...] have questions please contact the health healthcare applications analyst that requested your imaging first. Electronically signed by: Meli Gonzales MD, [facility] ([phone]), at 02/07/2021 6:17 PM Other studies/procedures: Procedure(s): [...] of two midnights or is on the [facility] inpatient only procedure list (status C) [...] ground level mechanical falls who presented to [facility] ED from home with drainage from LT [...] Center 03/20/2021 1:00 PM CAST ROOM 3A [facility] 3A [facility] 03/20/2021 1:30 PM [facility] DX ROOM 3 MH Xray [facility] Rad 03/20/2021 2:20 PM Dorina Campbell APRN [facility] [address] [place] [address] Associated attestation - Henrry Quiñones MD - [...] of a left ankle fracture at the [facility]. She presented in follow-up for a [...] Psoriasis ID: 60 y.o. Female presents to [facility] with left ankle pain and drainage. History of Present Illness: STEVO Méndez is a 60 y.o. female with past medical history of diabetes, hypothyroidism, depression, psoriasis, chronic headaches, presenting with complaints of left ankle swelling, pain and purulent drainage. Ms Méndez recently underwent open reduction and internal fixation on January 21, 2021 at [facility] for left ankle fracture that she [...] plate, and had cast exchange done at [facility] Ortho clinic yesterday. She reported that her [...] 4.06) performed by Wesley Jacobo MD at [facility] ??? PRO FUSION/GRAFT OF ELBOW JOINT Right 2017 ARTHRODESIS, ELBOW JOINT WITH AUTOGENOUS GRAFT (WRVU 14.32) performed by Christopher Correa MD at [facility] MAIN OR ??? PRO REMOVAL DEEP IMPLANT Right 2017 REMOVAL OF IMPLANT, DEEP, ELBOW (WRVU 5.96) performed by Christopher Correa MD at [facility] MAIN OR ??? PRO REMOVAL ERUPTED TOOTH WITH ELEVATION OF MUCOPERIOSTEAL FLAP Bilateral 09/11/2019 SURGICAL EXTRACTIONS REQUIRING ELEVATION OF MUCOPERIOSTEAL FLAP AND REMOVAL OF BONE OR SECTION OF TOOTH [facility]) performed by Wesley Jacobo MD at [facility] Prior To Admission Medications: (Not [...] have questions please contact the health healthcare applications analyst that requested your imaging first. Electronically signed by: Anthony Carrillo MD, [facility] ([phone]), at 02/07/2021 3:[address] Lower Extremity [...] have questions please contact the health healthcare applications analyst that requested your imaging first. Electronically signed by: Meli Gonzales MD, [facility] ([phone]), at 02/07/2021 6:17 PM Other Studies: None Assessment: 60 y.o. female with past medical history of diabetes, hypothyroidism, depression, psoriasis, chronic headaches, presenting with complaints of left ankle swelling, pain, erythema and purulent drainageafter having ORIF on 01/21/2021 at [facility]. CT of the ankle showed [...] to the planned procedure. Hand Hygiene: The hand ii thermal cutter did perform hand hygiene prior to line insertion. Catheter type: PICC Lot number: [id number] Procedure Technique: Skin was prepped with chlorhexidine. [...] and L ankle fracture S/P ORIF at [facility] (01/21/21) who presented to the [...] fracture performed 01/21 by orthopedic surgery at [facility]. She notes that she has also had intermittent chills but has not taken her temperature. Overall she has been very unhappy with her care at [facility] notes that they dismissed her concerns about an infection and suggested she was narcotic seeking. She would like to transfer all her orthopedic care to [facility] for this reason. Denies any lightheadedness, nausea, [...] have questions please contact the health healthcare applications analyst that requested your imaging first. Ankle Min [...] have questions please contact the health healthcare applications analyst that requested your imaging first. Electronically signed by: Anthony Carrillo MD, [facility] ([phone]), at 02/07/2021 3:44 PM ASSESSMENT & PLAN MDM: Jesenia Méndez is a 60 y.o. female with PMH significant for ID T2DM, R elbow fusion with serial casting, and L ankle fracture S/P ORIF at [facility] (01/21/21) who presented to the [...] w/ FWW stand pivot to [facility]. PLAN MOVING FORWARD: Monitor VS, labs, I/O's [...] drainage after having ORIF on 01/21/2021 at [facility]. CT of the ankle showed [...] have questions please contact the health healthcare applications analyst that requested your imaging first. Electronically signed by: Anthony Carrillo MD, [facility] ([phone]), at 02/07/2021 3:[address] Lower Extremity [...] have questions please contact the health healthcare applications analyst that requested your imaging first. Electronically signed by: Meli Gonzales MD, [facility] ([phone]), at 02/07/2021 6:17 PM XR Ankle Min [...] have questions please contact the health healthcare applications analyst that requested your imaging first. Electronically signed by: Christian Leon MD, [facility] ([phone]), at 02/14/2021 2:58 AM XR PICC Placement [...] have questions please contact the health healthcare applications analyst that requested your imaging first. Electronically signed by: BLAZE SALEEM MD, [facility] ([phone]), at 02/14/2021 9:[address] Angiogram Lower [...] have questions please contact the health healthcare applications analyst that requested your imaging first. Electronically signed by: David Unger MD, [facility] ([phone]), at 02/16/2021 4:46 PM Assessment: 60 y.o.??female??with L ankle wound s/p L ankle hardware removal and washouts with ortho for LLE cellulitis and abscess following ORIF on 01/21/2021 at [facility]. Recommendations: Plan for soft tissue coverage pending discussion with Dr. Franklin. Tentatively scheduling about two weeks from now. Corina Medrano MD 02/17/2021 11:50 AM Thank you for this consult. Please do not hesitate to page [phone] if you have any questions or concerns. [...] Keith MD - 02/14/2021 4:22 PM EDT [facility] Operative Note Patient Name: Jesenia Méndez : [id number] MR#: [id number] Case Date: 02/14/2021 Surgeon: Surgeon(s) and Role: [...] planned surgery, and site according to the [facility] [place] Protocol. 1 black sponge and white what [...] (PICC) Teaching Sheet Peripherally inserted central catheters ([id number]) (PICC) are used when you need IV [...] midline catheter? PICC lines are used for rodent exterminator treatments. PICC lines may be used for [...] can be set up via the nurse Child Nutrition Manager to help you. What are possible complications [...] Vascular Access Device Selection, Insertion, and Management, Blink (air taxi) Access Systems 05/26. A Review of the Efficacy, Safety, Use, and Administration of [employer], [employer] 2005 * Plan of Care - [...] Operative Note Patient Name: Jesenia Méndez : [id number] MR#: [id number] Case Date: 02/12/2021 Surgeon: Surgeon(s) and Role: [...] Odonnell MD - 02/12/2021 4:55 PM EDT [facility] Operative Note Patient Name: Jesenia Méndez : [id number] MR#: [id number] Case Date: 02/12/2021 Surgeon: Surgeon(s) and Role: [...] with one black sponge. The wound measured [id number]. The patient was then placed in a [...] I&D. She underwent ORIF left ankle at [facility] on 01/21/21 a day after she fell [...] Yarbrough MD - 02/10/2021 10:02 AM EDT [facility] Operative Note Patient Name: Jesenia Méndez : [id number] MR#: [id number] Case Date: 02/10/2021 Surgeon: Surgeon(s) and Role: * Jacobo De La Cruz MD - Primary * Seth Yarbrough MD - Resident Preoperative diagnosis: Left ankle infection Postoperative diagnosis: Left ankle infection Procedure: 1) Debridement Skin, subq, muscle, bone - 14666 Findings: Gross purulence under pressure distal to [...] and L ankle fracture S/P ORIF at [facility] (01/21/21)??who presented to the ED [...] 4.06) performed by Wesley Jacobo MD at [facility] ? ? PRO DEBRIDEMENT SUBCUTANEOUS TISSUE 20 SQCM/< Left 02/08/2021 DEBRIDEMENT SKIN AND SUBCU, LOWER EXTREMITY (WRVU 1.01) [facility] ??? PRO FUSION/GRAFT OF ELBOW JOINT Right 2017 ARTHRODESIS, ELBOW JOINT WITH AUTOGENOUS GRAFT (WRVU 14.32) performed by Christopher Correa MD at [facility] OR ??? PRO REMOVAL DEEP IMPLANT Right 2017 REMOVAL OF IMPLANT, DEEP, ELBOW (WRVU 5.96) performed by Christopher Correa MD at [facility] OR ??? PRO REMOVAL ERUPTED TOOTH WITH ELEVATION OF MUCOPERIOSTEAL FLAP Bilateral 09/11/2019 SURGICAL EXTRACTIONS REQUIRING ELEVATION OF MUCOPERIOSTEAL FLAP AND REMOVAL OF BONE OR SECTION OF TOOTH (WRVU 1.09) performed by Wesley Jacobo MD at [facility] Social History: Patient lives with [...] precautions Vision & Perception: ?? corrective lenses telemetry tech Communication: WFL Range of motion, strength, coordination: [...] is between inpatient rehab vs home with [employer] & 24/7 support/assistance - pending pt progress during her inpatient hospitalization. Equipment needs at discharge: TBD Anticipated Discharge Disposition (OT): inpatient rehabilitation facility (vs home with [employer] & 24/7 support/assistance ) Other Recommendations: ?? [...] and measurable assessment of functional outcome. Pager: [phone] Delfina Marr, OTR/L 02/09/2021 Occupational Therapy Rehabilitation Department * Plan of Care - Juani Knag RN - 02/09/2021 3:36 AM EDT OUTCOME [...] EVALUATION: * Consult Note - Yani Cheng [facility] - 02/08/2021 11:15 PM EDT Clinical Pharmacist Note - NicholasFD Jesenia Méndez [id number] Jesenia Méndez is a 60 y.o. [...] Alternately,during off-hours (9p-) you may call [phone] to contact a pharmacist. Yani Cheng RPH [...] ankle erythema, drainage status post ORIF at [facility] Introduced self/reviewed role; services accepted. Patient had received pain medication and was Reason for Hospitalization: pain Last COVID test: not tested Past medical History: History reviewed. No pertinent past medical history. S/P ORIF left ankle fracture 01/21/2021 at [facility]; fracture sustained 01/11/2021 Active Non-Hospital Problems ?? Diagnosis ??? H/O insulin dependent diabetes mellitus ??? H/O: depression ??? Hypothyroidism ??? h/o chronic headaches ??? Closed fracture of shaft of right ulna with known elbow arthrodesis RIGHT ??? Chronic pain in left shoulder ??? S/P R elbow fusion on 12/14/17 Correa ??? Psoriasis ?? Hospitalizations Within the Past 30 Days: [facility] 01/21/2021 Current Decision-Making Capacity: Self Advance Care Planning: Attempt Cardiopulmonary Resuscitation - Inpatient <no information> -Advanced Directive: No, need to discuss (father Jacobo Méndez is surrogate healthcare decision-maker) If AD's have not been completed father Jacobo Méndez would be surrogate decision maker per [place] surrogate decision making law. (Only good for 90 days) Any patient receiving care at [facility] must abide by [place] law. The hierarchy for surrogate decision making [...] (i) The agent with financial power of business attorney or a conservator appointed in accordance [...] in [place] 02/08/2021 Home Address listed as: [address] [facility] [address] Social & Family Supports: All names listed below confirmed with patient as current and correct Extended Emergency Contact Information Primary Emergency Contact: Jacobo Méndez Address: [address] [place] [address] [facility] Mobile Relation: Father Current Care Provided [...] Insurance: N/A Prescription Coverage: Yes Preferred Pharmacy: [facility] [address] [address] [place] Status: Patient is a : unable to assess (most likely not but did not confirm) Primary Care Provider: Maryuri Evans MD [phone] Patient/Caregiver Goals of Treatment: healing of L ankle without complication Potential Needs for Transition of Care: Additional help at home VNA referral Home wound VAC Agency Referrals: The patient/caregivers were provided with a list of homecare agencies which servetheir preferred geographic location and they were educated about their right to choose where referrals are placed. Patient/Caregiver requests referral to homecare agencies. [facility] PHONE: [phone] FAX: [phone] NB: Patient had a referral placed following [facility] encounter but was not seen; reason unknown. Transportation: private vehicle v [place] Medicaid transportation Transportation Anticipated: yes, may need assistance from [facility] O[facility] care team for ride Concerns to [...] towards recovery. She was discharged home from [facility]. VNA referral routed to OCM Disability Rater. Notify OCM RNCM regarding possible wound vac [...] transition of care planning. Selina Ramirez RNCM [facility] w/e multiple spindle screw machine operator Pager: [phone] * Op Note - Yani Dumas MD - 02/08/2021 11:30 AM EDT [facility] Operative Note Patient Name: Jesenia Méndez : [id number] MR#: [id number] Case Date: 02/08/2021 Surgeon: Surgeon(s) and Role: [...] of a left ankle fracture at the [facility]. She presented to the [facility] emergency department with a symptomatic cast which [...] A timeout was held in accordance with [facility] policy verifying the patient's name, date of [...] Operative Note Patient Name: Jesenia Méndez : [id number] MR#: [id number] Case Date: 02/08/2021 Surgeon: Surgeon(s) and Role: [...] ankle erythema, drainage status post ORIF at [facility] HPI: Jesenia Méndez is a [...] open reduction internal fixation on 01/21/2021 at [facility]. She reports drainage persistently ever since [...] data in the 24 hours ending 02/07/21 2837 Body mass index is 33.47 kg/m??. PHYSICAL [...] left ankle fracture performed on 01/21/2021 at [facility] (Dr. Henson). Patient has persistent [...] evaluation and treatment. Please page Orthopaedic consults ([phone]) with any questions or concerns. ?? Trudi Vann MD P. [phone] 02/07/21 5:34 PM Future Appointments Date Time Provider Department Center 03/20/2021 1:00 PM CAST ROOM 3A [facility] ORTH 3A [facility] 03/20/2021 1:30 PM [facility] DX ROOM 3 Xray [facility] Rad 03/20/2021 2:20 PM Dorina Campbell APRN [facility] ORTH [address] [place] [address] Addendum: Patient seen and examined again following [...] internal fixation for this on 01/21/2021 at [facility]. With regard to her arm [...] ankle draining wound Debridement, Skin, Sub-Q Tissue (19145) 02/08/2021 9:51 AM EDT left ankle draining [...] (ABNORMAL) POCT Glucose (02/18/2021 3:53 PM EDT) [facility] Glucose, POC 234(H) 65 - 199 mg/dL [facility] Comment: Supplemental ranges: <140 mg/dL before meals <180 mg/dL all other times of the day Blood 02/18/2021 3:53 PM EDT 02/18/2021 3:53 PM EDT Yunior Rodriguez DO POINT OF CARE TEST O RDERABLES Performing Organization Address [facility] Co de Phone Number [facility] [place] [address] * POCT Glucose (02/18/2021 11:17 AM EDT) Glucose, POC 181 65 - 199 mg/dL [facility] Comment: Supplemental ranges: <140 mg/dL before meals <180 mg/dL all other times of the day Blood 02/18/2021 11:1 7 AM EDT 02/18/2021 11:17 AM EDT Yunior Rodriguez DO POINT OF CARE TEST O RDERAMISBAH Performing Organization Address [facility] Co de Phone Number [facility] [place] [address] * (ABNORMAL) Hepatic Function Panel (02/18/2021 10:35 AM EDT) Protein, Total 7.0 6.1 - 8.0 gm/dL [facility] Albumin 3.7 3.2 - 5.2 gm/dL [facility] Aspartate Aminotransferase 27 0 - 30 unit/L [facility] Alanine Aminotransferase 17 0 - 30 unit/L [facility] Alkaline Phosphatase 122(H) 35 - 105 unit/L [facility] Bilirubin, Total 0.2 0.2 - 1.3 mg/dL [facility] Bilirubin, Direct 0.1 0.0 - 0.3 mg/dL [facility] Blood 02/18/2021 10:3 5 AM EDT 02/18/2021 10:41 AM EDT Narrative Resulting Agency Comment Spec In Lab Cami Ugarte DEPUTY ASSESSOR CHEMISTRY ORDERABLES Performing Organization Address [facility] de Phone Number [facility] [place] [address] * (ABNORMAL) POCT Glucose (02/18/2021 8:35 AM EDT) Pathologist [facility] Glucose, POC 225(H) 65 - 199 mg/dL [facility] Comment: Supplemental ranges: <140 mg/dL before meals <180 mg/dL all other times of the day Blood 02/18/2021 8:35 AM EDT 02/18/2021 8:35 AM EDT Yunior Rodriguez DO POINT OF CARE TEST O RDERABLES Performing Organization Address [facility] Phone Number [facility] [place] [address] * (ABNORMAL) CRP, acute inflammation (02/18/2021 6:10 AM EDT) [facility] C-Reactive Protein 29.1(H) <=4.9 mg/L [facility] Blood Venous Draw / Unknown 02/18/2021 6:10 AM EDT 02/18/2021 6:35 AM EDT Narrative Resulting Agency Comment Spec In Lab Cami Ugarte DEPUTY ASSESSOR CHEMISTRY ORDERABLES Performing Organization Address [facility] Co de Phone Number [facility] [place] [address] * (ABNORMAL) Differential, Automated (02/18/2021 6:10 AM EDT) Pathologist [facility] Neutrophil % 73.3 % [facility] Neutrophil Absolute 6.98(H) 1.70 - 6.10 x10(3)/mc L [facility] Lymph % 18.8 % [facility] Lymphocytes Abs 1.8 0.9 - 3.2 x10(3)/mc L [facility] Monocyte % 4.8 % [facility] Monocyte Abs 0.5 0.3 - 0.9 x10(3)/[facility] Eos % 1.9 % [facility] Eosinophils Abs 0.2 0.0 - 0.4 x10(3)/[facility] Basophil % 0.4 % [facility] Baso Absolute 0.0 0.0 - 0.1 x10(3)/[facility] Immature Gran % 0.80 % [facility] Comment: Immature granulocytes(IG's)percentage and absolute count will include metamyelocytes, myelocytes, and promyelocytes. Blood smears from CBCs yielding IG's will be scanned manually for concordance. If this scan disagrees with the automated IG or if promyelocytes are noted, a manual differential will be performed. Immature Gran Absolute 0.08(H) 0.00 - 0.04 x10(3)/[facility] Blood 02/18/2021 6:10 AM EDT 02/18/2021 6:30 AM EDT Narrative Resulting Agency Comment Spec In Lab Cami Ugarte DEPUTY ASSESSOR HEMATOLOGY ORDERABLE S [facility] [place] [address] * (ABNORMAL) Hemogram (02/18/2021 6:10 AM EDT) White Blood Cell 9.5 4.0 - 9.5 x10(3)/[facility] Red Blood Cell 3.64(L) 4.00 - 5.21 x10(6)/[facility] Hemoglobin 10.5(L) 11.7 - 15.5 gm/dL [facility] Hematocrit 33.1(L) 35.7 - 45.8 % [facility] Mean Cell Volume 90.9 82.6 - 94.4 fL [facility] Mean Cell Hemoglobin 28.8 27.1 - 32.0 pg [facility] Mean Cell Hemoglobin Concentration 31.7 31.7 - 35.0 gm/dL [facility] Platelet 311 145 - 357 x10(3)/mc L [facility] RDW Standard Deviation 45.1 37.0 - 46.0 fL [facility] RDW coefficient of variation 14.1 11.5 - 14.1 % [facility] Mean Platelet Volume 10.5 7.6 - 12.9 fL [facility] NRBC% auto 0.0 % [facility] NRBC Absolute 0.000 0.000 - 0.000 x10(3)/mc L [facility] Blood 02/18/2021 6:10 AM EDT 02/18/2021 6:30 AM EDT Narrative Resulting Agency Comment Spec In Lab Cami Ugarte DEPUTY ASSESSOR HEMATOLOGY ORDERABLE S [facility] [place] [address] * Phosphorus (02/18/2021 6:10 AM EDT) Phosphorus 3.4 2.5 - 4.5 mg/dL [facility] Blood 02/18/2021 6:10 AM EDT 02/18/2021 6:30 AM EDT Narrative Resulting Agency Comment Spec In Lab Cami Ugarte DEPUTY ASSESSOR CHEMISTRY ORDERABLES [facility] [place] [address] * Magnesium (02/18/2021 6:10 AM EDT) Magnesium 0.96 0.69 - 1.07 mmol/L [facility] Blood 02/18/2021 6:10 AM EDT 02/18/2021 6:30 AM EDT Narrative Resulting Agency Comment Spec In Lab Cami M Torito BALBUENA CHEMISTRY ORDERABLES [facility] [place] [address] * (ABNORMAL) Basic Metabolic Panel (non-fasting) (02/18/2021 6:10 AM EDT) Glucose 221(H) 65 - 199 mg/dL [facility] Comment:Diabetes: >=200 mg/d L plus symptoms Blood Urea Nitrogen 13 8 - 18 mg/dL [facility] Creatinine 0.84 0.70 - 1.20 mg/dL [facility] Sodium 138 135 - 145 mmol/L [facility] Potassium 3.8 3.5 - 5.0 mmol/L [facility] Comment: Please note: ??Patients with WBC >100,000 may have falsely elevated Potassium levels. ??For accurate Potassium quantification in these patients send serum separator tube (gold top) for subsequent determinations. ??Contact the Clinical Chemistry Laboratory if there are any questions. Chloride 104 98 - 107 mmol/L [facility] Carbon Dioxide 26 22 - 31 mmol/L [facility] Anion Gap 8 5 - 15 mmol/L [facility] Calcium 9.1 8.5 - 10.5 mg/dL [facility] Est Glomerular Filtration Rate 76 >=60 mL/min/1. 73 m?? [facility] Comment: This patient? s estimated [...] Ugarte APRN CHEMISTRY ORDERABLES Performing Organization Address [facility] Co de Phone Number [facility] [place] [address] * (ABNORMAL) POCT Glucose (02/17/2021 11:44 PM EDT) Glucose, POC 202(H) 65 - 199 mg/dL [facility] Comment: Supplemental ranges: <140 mg/dL before meals <180 mg/dL all other times of the day Blood 02/17/2021 11:4 4 PM EDT 02/17/2021 11:44 PM EDT Yunior Rodriguez DO POINT OF CARE TEST O RDERABLES Performing Organization Address [facility] Co de Phone Number [facility] [place] [address] * POCT Glucose (02/17/2021 8:09 PM EDT) Glucose, POC 142 65 - 199 mg/dL [facility] Comment: Supplemental ranges: <140 mg/dL before meals <180 mg/dL all other times of the day Blood 02/17/2021 8:09 PM EDT 02/17/2021 8:09 PM EDT Yunior Rodriguez DO POINT OF CARE TEST O RDERABLES Performing Organization Address [facility] Co de Phone Number [facility] [place] [address] * POCT Glucose (02/17/2021 4:21 PM EDT) Glucose, POC 191 65 - 199 mg/dL [facility] Comment: Supplemental ranges: <140 mg/dL before meals <180 mg/dL all other times of the day Blood 02/17/2021 4:21 PM EDT 02/17/2021 4:21 PM EDT Yunior Rodriguez DO POINT OF CARE TEST O RDERABLES Performing Organization Address [facility] Co de Phone Number [facility] [place] [address] * POCT Glucose (02/17/2021 12:00 PM EDT) Glucose, POC 155 65 - 199 mg/dL [facility] Comment: Supplemental ranges: <140 mg/dL before meals <180 mg/dL all other times of the day Blood 02/17/2021 12:0 0 PM EDT 02/17/2021 12:00 PM EDT Yunior Rodriguez DO POINT OF CARE TEST O RDERABLES Performing Organization Address [facility] Co de Phone Number [facility] [place] [address] * (ABNORMAL) POCT Glucose (02/17/2021 8:36 AM EDT) Glucose, POC 239(H) 65 - 199 mg/dL [facility] Comment: Supplemental ranges: <140 mg/dL before meals <180 mg/dL all other times of the day Blood 02/17/2021 8:36 AM EDT 02/17/2021 8:36 AM EDT Yunior Rodriguez DO POINT OF CARE TEST O RDERABLES Performing Organization Address [facility] Co de Phone Number [facility] [place] [address] * (ABNORMAL) Differential, Automated (02/17/2021 4:10 AM EDT) Neutrophil % 69.5 % [facility] Neutrophil Absolute 6.21(H) 1.70 - 6.10 x10(3)/mc L [facility] Lymph % 20.8 % [facility] Lymphocytes Abs 1.9 0.9 - 3.2 x10(3)/ L [facility] Monocyte % 5.9 % [facility] Monocyte Abs 0.5 0.3 - 0.9 x10(3)/ L [facility] Eos % 1.7 % [facility] Eosinophils Abs 0.2 0.0 - 0.4 x10(3)/[facility] Basophil % 0.4 % [facility] Baso Absolute 0.0 0.0 - 0.1 x10(3)/[facility] Immature Gran % 1.70 % [facility] Comment: Immature granulocytes(IG's)percentage and absolute count will include metamyelocytes, myelocytes, and promyelocytes. Blood smears from CBCs yielding IG's will be scanned manually for concordance. If this scan disagrees with the automated IG or if promyelocytes are noted, a manual differential will be performed. Immature Gran Absolute 0.15(H) 0.00 - 0.04 x10(3)/[facility] Blood 02/17/2021 4:10 AM EDT 02/17/2021 4:19 AM EDT Narrative Resulting Agency Comment Spec In Lab Cami Ugarte DEPUTY ASSESSOR HEMATOLOGY ORDERABLE S [facility] [place] [address] * (ABNORMAL) Hemogram (02/17/2021 4:10 AM EDT) White Blood Cell 8.9 4.0 - 9.5 x10(3)/[facility] Red Blood Cell 3.44(L) 4.00 - 5.21 x10(6)/ L [facility] Hemoglobin 10.0(L) 11.7 - 15.5 gm/dL [facility] Hematocrit 30.9(L) 35.7 - 45.8 % [facility] Mean Cell Volume 89.8 82.6 - 94.4 fL [facility] Mean Cell Hemoglobin 29.1 27.1 - 32.0 pg [facility] Mean Cell Hemoglobin Concentration 32.4 31.7 - 35.0 gm/dL [facility] Platelet 305 145 - 357 x10(3)/mc L [facility] RDW Standard Deviation 44.1 37.0 - 46.0 fL [facility] RDW coefficient of variation 13.8 11.5 - 14.1 % [facility] Mean Platelet Volume 10.5 7.6 - 12.9 fL [facility] NRBC% auto 0.0 % [facility] NRBC Absolute 0.000 0.000 - 0.000 x10(3)/mc L [facility] Blood 02/17/2021 4:10 AM EDT 02/17/2021 4:19 AM EDT Narrative Resulting Agency Comment Spec In Lab Cami Ugarte DEPUTY ASSESSOR HEMATOLOGY ORDERABLE S Performing Organization Address City/[facility] Co de Phone Number [facility] [place] [address] * Phosphorus (02/17/2021 4:10 AM EDT) Phosphorus 3.0 2.5 - 4.5 mg/dL [facility] Blood 02/17/2021 4:10 AM EDT 02/17/2021 4:19 AM EDT Narrative Resulting Agency Comment Spec In Lab Cami Ugarte DEPUTY ASSESSOR CHEMISTRY ORDERABLES Performing Organization Address [facility] Co de Phone Number [facility] [place] [address] * Magnesium (02/17/2021 4:10 AM EDT) Magnesium 0.91 0.69 - 1.07 mmol/L [facility] Blood 02/17/2021 4:10 AM EDT 02/17/2021 4:19 AM EDT Narrative Resulting Agency Comment Spec In Lab Cami Ugarte SREE CHEMISTRY ORDERABLES [facility] [place] [address] * (ABNORMAL) Basic Metabolic Panel (non-fasting) (02/17/2021 4:10 AM EDT) Glucose 187 65 - 199 mg/dL [facility] Comment:Diabetes: >=200 mg/d L plus symptoms Blood Urea Nitrogen 11 8 - 18 mg/dL [facility] Creatinine 0.82 0.70 - 1.20 mg/dL [facility] Sodium 143 135 - 145 mmol/L [facility] Potassium 3.7 3.5 - 5.0 mmol/L [facility] Comment: Please note: ??Patients with WBC >100,000 may have falsely elevated Potassium levels. ??For accurate Potassium quantification in these patients send serum separator tube (gold top) for subsequent determinations. ??Contact the Clinical Chemistry Laboratory if there are any questions. Chloride 109(H) 98 - 107 mmol/L [facility] Carbon Dioxide 27 22 - 31 mmol/L [facility] Anion Gap 7 5 - 15 mmol/L [facility] Calcium 8.9 8.5 - 10.5 mg/dL [facility] Est Glomerular Filtration Rate 78 >=60 mL/min/1. 73 m?? [facility] Comment: This patient? s estimated [...] Ugarte APRN CHEMISTRY ORDERABLES Performing Organization Address [facility] de Phone Number [facility] [place] [address] * CK (02/17/2021 4:10 AM EDT) Creatine Kinase <20 0 - 160 unit/L [facility] Blood 02/17/2021 4:10 AM EDT 02/17/2021 4:19 AM EDT Narrative Resulting Agency Comment Spec In Lab Yunior Rodriguez DO CHEMISTRY ORDERABLES Performing Organization Address [facility] de Phone Number [facility] [place] [address] * POCT Glucose (02/16/2021 7:33 PM EDT) Glucose, POC 172 65 - 199 mg/dL [facility] Comment: Supplemental ranges: <140 mg/dL before meals <180 mg/dL all other times of the day Blood 02/16/2021 7:33 PM EDT 02/16/2021 7:33 PM EDT Yunior Rodriguez DO POINT OF CARE TEST O RDERABLES Performing Organization Address [facility] Co de Phone Number [facility] [place] [address] * POCT Glucose (02/16/2021 4:11 PM EDT) Glucose, POC 197 65 - 199 mg/dL [facility] Comment: Supplemental ranges: <140 mg/dL before meals <180 mg/dL all other times of the day Blood 02/16/2021 4:11 PM EDT 02/16/2021 4:11 PM EDT Yunior Rodriguez DO POINT OF CARE TEST O RDERABLES [facility] [address] * CT Angiogram Lower Extremity Left (Generic) [...] have questions please contact the health healthcare applications analyst that requested your imaging first. ? Narrative [...] who have questions please contactthe health healthcare applications analyst that requested your imaging first. Electronically signed by: David Unger MD, [facility]([phone]), at 02/16/2021 4:46 PM Dali Feliz APRN IMG CT ORDERABLES * (ABNORMAL) POCT Glucose (02/16/2021 1:46 PM EDT) Glucose, POC 274(H) 65 - 199 mg/dL [facility] Comment: Supplemental ranges: <140 mg/dL before meals <180 mg/dL all other times of the day Blood 02/16/2021 1:46 PM EDT 02/16/2021 1:46 PM EDT Yunior Rodriguez DO POINT OF CARE TEST O RDERAMISBAH Performing Organization Address [facility] Co de Phone Number [facility] [place] [address] * (ABNORMAL) POCT Glucose (02/16/2021 11:35 AM EDT) Glucose, POC 215(H) 65 - 199 mg/dL [facility] Comment: Supplemental ranges: <140 mg/dL before meals <180 mg/dL all other times of the day Blood 02/16/2021 11:3 5 AM EDT 02/16/2021 11:35 AM EDT Yunior Rodriguez DO POINT OF CARE TEST O RDERABLES Performing Organization Address [facility]/State/ZIP Co de Phone Number [facility] [place] [address] * (ABNORMAL) POCT Glucose (02/16/2021 10:23 AM EDT) Glucose, POC 239(H) 65 - 199 mg/dL [facility] Comment: Supplemental ranges: <140 mg/dL before meals <180 mg/dL all other times of the day Blood 02/16/2021 10:2 3 AM EDT 02/16/2021 10:23 AM EDT Yunior Rodriguez DO POINT OF CARE TEST O RDERABLES Performing Organization Address [facility]/ZIP Co de Phone Number [facility] [place] [address] * (ABNORMAL) POCT Glucose (02/16/2021 7:46 AM EDT) Glucose, POC 273(H) 65 - 199 mg/dL [facility] Comment: Supplemental ranges: <140 mg/dL before meals <180 mg/dL all other times of the day Blood 02/16/2021 7:46 AM EDT 02/16/2021 7:46 AM EDT Yunior Rodriguez DO POINT OF CARE TEST O RDERAMISBAH Performing Organization Address [facility]/ZIP Co de Phone Number [facility] [place] [address] * (ABNORMAL) Basic Metabolic Panel (non-fasting) (02/16/2021 3:53 AM EDT) Glucose 222(H) 65 - 199 mg/dL [facility] Comment:Diabetes: >=200 mg/d L plus symptoms Blood Urea Nitrogen 10 8 - 18 mg/dL [facility] Creatinine 0.79 0.70 - 1.20 mg/dL [facility] Sodium 143 135 - 145 mmol/L [facility] Potassium 3.6 3.5 - 5.0 mmol/L [facility] Comment: Please note: ??Patients with WBC >100,000 may have falsely elevated Potassium levels. ??For accurate Potassium quantification in these patients send serum separator tube (gold top) for subsequent determinations. ??Contact the Clinical Chemistry Laboratory if there are any questions. Chloride 109(H) 98 - 107 mmol/L [facility] Carbon Dioxide 26 22 - 31 mmol/L [facility] Anion Gap 8 5 - 15 mmol/L [facility] Calcium 8.4(L) 8.5 - 10.5 mg/dL [facility] Est Glomerular Filtration Rate 82 >=60 mL/min/1. 73 m?? [facility] Comment: This patient? s estimated [...] In Lab Yunior Rodriguez DO CHEMISTRY ORDERABLES [facility] [place] [address] * (ABNORMAL) Hemogram (02/16/2021 3:53 AM EDT) White Blood Cell 9.6(H) 4.0 - 9.5 x10(3)/mc L [facility] Red Blood Cell 3.33(L) 4.00 - 5.21 x10(6)/mc L [facility] Hemoglobin 9.8(L) 11.7 - 15.5 gm/dL [facility] Hematocrit 30.3(L) 35.7 - 45.8 % [facility] Mean Cell Volume 91.0 82.6 - 94.4 fL [facility] Mean Cell Hemoglobin 29.4 27.1 - 32.0 pg [facility] Mean Cell Hemoglobin Concentration 32.3 31.7 - 35.0 gm/dL [facility] Platelet 263 145 - 357 x10(3)/mc L [facility] RDW Standard Deviation 43.8 37.0 - 46.0 fL [facility] RDW coefficient of variation 13.4 11.5 - 14.1 % [facility] Mean Platelet Volume 10.3 7.6 - 12.9 fL [facility] NRBC% auto 0.0 % [facility] NRBC Absolute 0.000 0.000 - 0.000 x10(3)/mc L [facility] Blood 02/16/2021 3:53 AM EDT 02/16/2021 3:57 AM EDT Narrative Resulting Agency Comment Spec In Lab Yunior Rodriguez DO HEMATOLOGY ORDERABLE S Performing Organization Address City/[facility]/ZIP Co de Phone Number [facility] [place] [address] * POCT Glucose (02/15/2021 8:03 PM EDT) Glucose, POC 174 65 - 199 mg/dL [facility] Comment: Supplemental ranges: <140 mg/dL before meals <180 mg/dL all other times of the day Blood 02/15/2021 8:03 PM EDT 02/15/2021 8:03 PM EDT Yunior Rodriguez DO POINT OF CARE TEST O RDERABLES Performing Organization Address City/[facility]/ZIP Co de Phone Number [facility] [place] [address] * POCT Glucose (02/15/2021 5:24 PM EDT) Glucose, POC 127 65 - 199 mg/dL [facility] Comment: Supplemental ranges: <140 mg/dL before meals <180 mg/dL all other times of the day Blood 02/15/2021 5:24 PM EDT 02/15/2021 5:24 PM EDT Yunior Rodriguez DO POINT OF CARE TEST O RDERABLES Performing Organization Address City/[facility]/ZIP Co de Phone Number [facility] [place] [address] * (ABNORMAL) POCT Glucose (02/15/2021 3:38 PM EDT) Glucose, POC 243(H) 65 - 199 mg/dL [facility] Comment: Supplemental ranges: <140 mg/dL before meals <180 mg/dL all other times of the day Blood 02/15/2021 3:38 PM EDT 02/15/2021 3:38 PM EDT Yunior Rodriguez DO POINT OF CARE TEST O RDERAMISBAH Performing Organization Address [facility] Co de Phone Number [facility] [place] [address] * POCT Glucose (02/15/2021 11:39 AM EDT) Glucose, POC 178 65 - 199 mg/dL [facility] Comment: Supplemental ranges: <140 mg/dL before meals <180 mg/dL all other times of the day Blood 02/15/2021 11:3 9 AM EDT 02/15/2021 11:39 AM EDT Yunior Rodriguez DO POINT OF CARE TEST O RDERABLES Performing Organization Address City/[facility] Co de Phone Number [facility] [place] [address] * (ABNORMAL) POCT Glucose (02/15/2021 7:40 AM EDT) Glucose, POC 238(H) 65 - 199 mg/dL [facility] Comment: Supplemental ranges: <140 mg/dL before meals <180 mg/dL all other times of the day Blood 02/15/2021 7:40 AM EDT 02/15/2021 7:40 AM EDT Yunior Rodriguez DO POINT OF CARE TEST O RDERABLES [facility] [place] [address] * (ABNORMAL) Basic Metabolic Panel (non-fasting) (02/15/2021 12:35 AM EDT) Glucose 186 65 - 199 mg/dL [facility] Comment:Diabetes: >=200 mg/d L plus symptoms Blood Urea Nitrogen 9 8 - 18 mg/dL [facility] Creatinine 0.84 0.70 - 1.20 mg/dL [facility] Sodium 141 135 - 145 mmol/L [facility] Potassium 3.5 3.5 - 5.0 mmol/L [facility] Comment: Please note: ??Patients with WBC >100,000 may have falsely elevated Potassium levels. ??For accurate Potassium quantification in these patients send serum separator tube (gold top) for subsequent determinations. ??Contact the Clinical Chemistry Laboratory if there are any questions. Chloride 108(H) 98 - 107 mmol/L [facility] Carbon Dioxide 23 22 - 31 mmol/L [facility] Anion Gap 10 5 - 15 mmol/L [facility] Calcium 8.6 8.5 - 10.5 mg/dL [facility] Est Glomerular Filtration Rate 76 >=60 mL/min/1. 73 m?? [facility] Comment: This patient? s estimated [...] In Lab Edilma Mary MD CHEMISTRY ORDERABLES [facility] [place] [address] * (ABNORMAL) Hemogram (02/15/2021 12:35 AM EDT) White Blood Cell 9.6(H) 4.0 - 9.5 x10(3)/mc L [facility] Red Blood Cell 3.39(L) 4.00 - 5.21 x10(6)/mc L [facility] Hemoglobin 9.7(L) 11.7 - 15.5 gm/dL [facility] Hematocrit 30.7(L) 35.7 - 45.8 % [facility] Mean Cell Volume 90.6 82.6 - 94.4 fL [facility] Mean Cell Hemoglobin 28.6 27.1 - 32.0 pg [facility] Mean Cell Hemoglobin Concentration 31.6(L) 31.7 - 35.0 gm/dL [facility] Platelet 291 145 - 357 x10(3)/mc L [facility] RDW Standard Deviation 43.9 37.0 - 46.0 fL [facility] RDW coefficient of variation 13.3 11.5 - 14.1 % [facility] Mean Platelet Volume 10.9 7.6 - 12.9 fL [facility] NRBC% auto 0.0 % [facility] NRBC Absolute 0.000 0.000 - 0.000 x10(3)/mc L [facility] Blood 02/15/2021 12:3 5 AM EDT 02/15/2021 12:44 AM EDT Narrative Resulting Agency Comment Spec In Lab Edilma Mary MD HEMATOLOGY ORDERABLE S Performing Organization Address City/[facility]/ZIP Co de Phone Number [facility] [place] [address] * POCT Glucose (02/14/2021 11:51 PM EDT) Glucose, POC 188 65 - 199 mg/dL [facility] Comment: Supplemental ranges: <140 mg/dL before meals <180 mg/dL all other times of the day Blood 02/14/2021 11:5 1 PM EDT 02/14/2021 11:51 PM EDT Yunior Rodriguez DO POINT OF CARE TEST O RDERABLES Performing Organization Address City/[facility]/ZIP Co de Phone Number [facility] [place] [address] * CK (02/14/2021 8:13 PM EDT) Creatine Kinase <20 0 - 160 unit/L [facility] Blood 02/14/2021 8:13 PM EDT 02/14/2021 8:19 PM EDT Narrative Resulting Agency Comment Spec In Lab Yunior Rodriguez DO CHEMISTRY ORDERABLES Performing Organization Address City/[facility]/ZIP Co de Phone Number [facility] [place] [address] * POCT Glucose (02/14/2021 7:53 PM EDT) Glucose, POC 186 65 - 199 mg/dL [facility] Comment: Supplemental ranges: <140 mg/dL before meals <180 mg/dL all other times of the day Blood 02/14/2021 7:53 PM EDT 02/14/2021 7:53 PM EDT Yunior Rodriguez DO POINT OF CARE TEST O RDERABLES Performing Organization Address City/[facility]/ZIP Co de Phone Number [facility] [place] [address] * POCT Glucose (02/14/2021 4:57 PM EDT) Glucose, POC 110 65 - 199 mg/dL [facility] Comment: Supplemental ranges: <140 mg/dL before meals <180 mg/dL all other times of the day Blood 02/14/2021 4:57 PM EDT 02/14/2021 4:57 PM EDT Yunior Rodriguez DO POINT OF CARE TEST O RDERABLES Performing Organization Address [facility] Co de Phone Number [facility] [place] [address] * Vancomycin, trough (02/14/2021 2:50 PM EDT) Vancomycin, Trough 18.9 mg/L [facility] Comment: Therapeutic range for [...] Rodriguez DO CHEMISTRY ORDERABLES Performing Organization Address [facility] Co de Phone Number [facility] [place] [address] * POCT Glucose (02/14/2021 11:51 AM EDT) Glucose, POC 149 65 - 199 mg/dL [facility] Comment: Supplemental ranges: <140 mg/dL before meals <180 mg/dL all other times of the day Blood 02/14/2021 11:5 1 AM EDT 02/14/2021 11:51 AM EDT Yunior Rodriguez DO POINT OF CARE TEST O RDERABLES [facility] [place] [address] * XR PICC Placement Over 5 Years [...] have questions please contact the health healthcare applications analyst that requested your imaging first. ? Electronically signed by: BLAZE SALEEM MD, [facility] ([phone]), at 02/14/2021 9:22 AM Narrative 02/14/2021 9:22 [...] who have questions please contactthe health healthcare applications analyst that requested your imaging first. Electronically signed by: BLAZE SALEEM MD, [facility]([phone]), at 02/14/2021 9:22 AM Edilma Mary MD IMG FLUORO ORDERABLE S * Place PICC Line: Contact Vascular Access Page [id number] Extremity to exclude: No restrictions; Is PICC [...] to the planned procedure. Hand Hygiene: The hand ii thermal cutter did perform hand hygiene prior to line insertion. Catheter type: PICC Lot number: [id number] Procedure Technique: Skin was prepped with chlorhexidine. [...] Glucose, POC 156 65 - 199 mg/dL [facility] Comment: Supplemental ranges: <140 mg/dL before meals <180 mg/dL all other times of the day Blood 02/14/2021 8:01 AM EDT 02/14/2021 8:01 AM EDT Edilma Mary MD POINT OF CARE TEST O RDERABLES [facility] [place] [address] * (ABNORMAL) POCT Glucose (02/13/2021 11:45 PM EDT) Glucose, POC 228(H) 65 - 199 mg/dL [facility] Comment: Supplemental ranges: <140 mg/dL before meals <180 mg/dL all other times of the day Blood 02/13/2021 11:4 5 PM EDT 02/13/2021 11:45 PM EDT Edilma Mary MD POINT OF CARE TEST O RDERABLES [facility] [place] [address] * POCT Glucose (02/13/2021 7:39 PM EDT) Glucose, POC 186 65 - 199 mg/dL [facility] Comment: Supplemental ranges: <140 mg/dL before meals <180 mg/dL all other times of the day Blood 02/13/2021 7:39 PM EDT 02/13/2021 7:39 PM EDT Edilma Mary MD POINT OF CARE TEST O DIMITRISERABLES Performing Organization Address [facility]/ZIP Co de Phone Number [facility] [place] [address] * (ABNORMAL) POCT Glucose (02/13/2021 3:51 PM EDT) Glucose, POC 201(H) 65 - 199 mg/dL [facility] Comment: Supplemental ranges: <140 mg/dL before meals <180 mg/dL all other times of the day Blood 02/13/2021 3:51 PM EDT 02/13/2021 3:51 PM EDT Edilma Mary MD POINT OF CARE TEST O RDERABLES Performing Organization Address City/[facility]/ZIP Co de Phone Number [facility] [place] [address] * XR Ankle Min 3 views Left [...] have questions please contact the health healthcare applications analyst that requested your imaging first. ? Electronically signed by: Christian Leon MD, [facility] ([phone]), at 02/14/2021 2:58 AM Narrative 02/14/2021 2:58 [...] who have questions please contactthe health healthcare applications analyst that requested your imaging first. Electronically signed by: Christian Leon MD, [facility]([phone]), at 02/14/2021 2:58 AM Edilma Mary MD IMG DX ORDERABLES * POCT Glucose (02/13/2021 11:54 AM EDT) Glucose, POC 188 65 - 199 mg/dL [facility] Comment: Supplemental ranges: <140 mg/dL before meals <180 mg/dL all other times of the day Blood 02/13/2021 11:5 4 AM EDT 02/13/2021 11:54 AM EDT Edilma Mary MD POINT OF CARE TEST O VIKKI Performing Organization Address [facility]/ZIP Co de Phone Number [facility] [place] [address] * POCT Glucose (02/13/2021 8:18 AM EDT) Glucose, POC 185 65 - 199 mg/dL [facility] Comment: Supplemental ranges: <140 mg/dL before meals <180 mg/dL all other times of the day Blood 02/13/2021 8:18 AM EDT 02/13/2021 8:18 AM EDT Edilma Mary MD POINT OF CARE TEST O RDFLAKITA [facility] [place] [address] * POCT Glucose (02/12/2021 8:16 PM EDT) Glucose, POC 120 65 - 199 mg/dL [facility] Comment: Supplemental ranges: <140 mg/dL before meals <180 mg/dL all other times of the day Blood 02/12/2021 8:16 PM EDT 02/12/2021 8:16 PM EDT Edilma Mary MD POINT OF CARE TEST O RDERABLES [facility] [place] [address] * POCT Glucose (02/12/2021 7:25 PM EDT) Glucose, POC 99 65 - 199 mg/dL [facility] Comment: Supplemental ranges: <140 mg/dL before meals <180 mg/dL all other times of the day Blood 02/12/2021 7:25 PM EDT 02/12/2021 7:25 PM EDT Edilma Mary MD POINT OF CARE TEST O RDERAMISBAH Performing Organization Address [facility]/ZIP Co de Phone Number [facility] [place] [address] * POCT Glucose (02/12/2021 5:48 PM EDT) Glucose, POC 102 65 - 199 mg/dL [facility] Comment: Supplemental ranges: <140 mg/dL before meals <180 mg/dL all other times of the day Blood 02/12/2021 5:48 PM EDT 02/12/2021 5:48 PM EDT Edilma Mary MD POINT OF CARE TEST O RDERABLES [facility] [place] [address] * Anaerobic Culture (02/12/2021 5:45 PM EDT) Anaerobic Culture No anaerobic organisms isolated [facility] Deep Wound ANKLE REGION STRUCTURE / Unknown 02/12/2021 5:45 PM EDT 02/12/2021 6:31 PM EDT Comment:OR#[id number] Narrative Resulting Agency Comment Spec In Lab Sabrina Capellan MD MICROBIOLOGY - GENER AL ORDERABLES Performing Organization Address [facility] Co de Phone Number [facility] [place] [address] * (ABNORMAL) Abscess/Wound Aspirate Culture (02/12/2021 5:45 PM EDT) Abscess/Wound Aspirate Culture Rare Staphylococcus aureus Susceptibilities previously reported (A) [facility] Gram Stain No Neutrophils seen. No microorganisms seen. (A) [facility] Organism Staphylococcus aureus(A) [facility] Deep Wound ANKLE REGION STRUCTURE / Unknown 02/12/2021 5:45 PM EDT 02/12/2021 6:31 PM EDT Comment:OR#5 [id number] Narrative Resulting Agency Comment Spec In Lab Sabrina Capellan MD MICROBIOLOGY - GENER AL ORDERABLES Performing Organization Address [facility] Co de Phone Number [facility] [place] [address] * Anaerobic Culture (02/12/2021 5:43 PM EDT) Anaerobic Culture No anaerobic organisms isolated [facility] Deep Wound ANKLE REGION STRUCTURE / Unknown 02/12/2021 5:43 PM EDT 02/12/2021 6:32 PM EDT Comment:LEFT DEEP ANKLE BONE Narrative Resulting Agency Comment Spec In Lab Sabrina Capellan MD MICROBIOLOGY - GENER AL ORDERABLES Performing Organization Address City/[facility]/ZIP Co de Phone Number [facility] [place] [address] * (ABNORMAL) Abscess/Wound Aspirate Culture (02/12/2021 5:43 PM EDT) Abscess/Wound Aspirate Culture Few Staphylococcus aureus(A) [facility] Gram Stain No Neutrophils seen. No microorganisms seen. (A) [facility] Organism Staphylococcus aureus(A) [facility] Deep Wound ANKLE REGION STRUCTURE [...] Sensitive Comment:Gentamicin i s not appropriate for [place]-therapy. Staphylococcus aureus Oxacillin VITEK 2 METHOD Sensitive [...] Capellan MD MICROBIOLOGY - GENER AL ORDERABLES [facility] [place] [address] * POCT Glucose (02/12/2021 3:39 PM EDT) Glucose, POC 109 65 - 199 mg/dL [facility] Comment: Supplemental ranges: <140 mg/dL before meals <180 mg/dL all other times of the day Blood 02/12/2021 3:39 PM EDT 02/12/2021 3:39 PM EDT Edilma Mary MD POINT OF CARE TEST O RDERABLES Performing Organization Address City/[facility]/ZIP Co de Phone Number [facility] [place] [address] * Vancomycin, trough (02/12/2021 2:30 PM EDT) Vancomycin, Trough 18.3 mg/L [facility] Comment: Therapeutic range for [...] Rodriguez DO CHEMISTRY ORDERABLES Performing Organization Address [facility]/ZIP Co de Phone Number [facility] [place] [address] * POCT Glucose (02/12/2021 11:56 AM EDT) Glucose, POC 123 65 - 199 mg/dL [facility] Comment: Supplemental ranges: <140 mg/dL before meals <180 mg/dL all other times of the day Blood 02/12/2021 11:5 6 AM EDT 02/12/2021 11:56 AM EDT Edilma Mary MD POINT OF CARE TEST O RDERABLES Performing Organization Address [facility] [facility]/ZIP Co de Phone Number [facility] [place] [address] * POCT Glucose (02/12/2021 7:37 AM EDT) Glucose, POC 138 65 - 199 mg/dL [facility] Comment: Supplemental ranges: <140 mg/dL before meals <180 mg/dL all other times of the day Blood 02/12/2021 7:37 AM EDT 02/12/2021 7:37 AM EDT Edilma Mary MD POINT OF CARE TEST O RDERABLES Performing Organization Address [facility]/ZIP Co de Phone Number [facility] [place] [address] * POCT Glucose (02/12/2021 4:22 AM EDT) Glucose, POC 170 65 - 199 mg/dL [facility] Comment: Supplemental ranges: <140 mg/dL before meals <180 mg/dL all other times of the day Blood 02/12/2021 4:22 AM EDT 02/12/2021 4:22 AM EDT Edilma Mary MD POINT OF CARE TEST O VIKKI Performing Organization Address [facility] Co de Phone Number [facility] [place] [address] * POCT Glucose (02/11/2021 11:20 PM EDT) Glucose, POC 147 65 - 199 mg/dL [facility] Comment: Supplemental ranges: <140 mg/dL before meals <180 mg/dL all other times of the day Blood 02/11/2021 11:2 0 PM EDT 02/11/2021 11:20 PM EDT Edilma Mary MD POINT OF CARE TEST O DIMITRISERAMISBAH Performing Organization Address [facility] Co de Phone Number [facility] [place] [address] * (ABNORMAL) POCT Glucose (02/11/2021 7:59 PM EDT) Glucose, POC 213(H) 65 - 199 mg/dL [facility] Comment: Supplemental ranges: <140 mg/dL before meals <180 mg/dL all other times of the day Blood 02/11/2021 7:59 PM EDT 02/11/2021 7:59 PM EDT Edilma Mary MD POINT OF CARE TEST O RDERABLES Performing Organization Address [facility]/ZIP Co de Phone Number [facility] [place] [address] * POCT Glucose (02/11/2021 4:02 PM EDT) Glucose, POC 129 65 - 199 mg/dL [facility] Comment: Supplemental ranges: <140 mg/dL before meals <180 mg/dL all other times of the day Blood 02/11/2021 4:02 PM EDT 02/11/2021 4:02 PM EDT Edilma Mary MD POINT OF CARE TEST O RDERABLES Performing Organization Address [facility] Co de Phone Number [facility] [place] [address] * POCT Glucose (02/11/2021 1:35 PM EDT) Glucose, POC 152 65 - 199 mg/dL [facility] Comment: Supplemental ranges: <140 mg/dL before meals <180 mg/dL all other times of the day Blood 02/11/2021 1:35 PM EDT 02/11/2021 1:35 PM EDT Edilma Mary MD POINT OF CARE TEST O RDERABLES Performing Organization Address [facility] Co de Phone Number [facility] [place] [address] * (ABNORMAL) POCT Glucose (02/11/2021 11:28 AM EDT) Glucose, POC 284(H) 65 - 199 mg/dL [facility] Comment: Supplemental ranges: <140 mg/dL before meals <180 mg/dL all other times of the day Blood 02/11/2021 11:2 8 AM EDT 02/11/2021 11:28 AM EDT Edilma Mary MD POINT OF CARE TEST O RDERABLES Performing Organization Address City/State/[facility] Co de Phone Number [facility] [place] [address] * POCT Glucose (02/11/2021 7:42 AM EDT) Glucose, POC 133 65 - 199 mg/dL [facility] Comment: Supplemental ranges: <140 mg/dL before meals <180 mg/dL all other times of the day Blood 02/11/2021 7:42 AM EDT 02/11/2021 7:42 AM EDT Edilma Mary MD POINT OF CARE TEST O RDERABLES Performing Organization Address [facility] de Phone Number [facility] [place] [address] * (ABNORMAL) POCT Glucose (02/11/2021 3:57 AM EDT) Glucose, POC 267(H) 65 - 199 mg/dL [facility] Comment: Supplemental ranges: <140 mg/dL before meals <180 mg/dL all other times of the day Blood 02/11/2021 3:57 AM EDT 02/11/2021 3:57 AM EDT Edilma Mary MD POINT OF CARE TEST O RDERABLES Performing Organization Address [facility] de Phone Number [facility] [place] [address] * POCT Glucose (02/10/2021 11:55 PM EDT) Glucose, POC 190 65 - 199 mg/dL [facility] Comment: Supplemental ranges: <140 mg/dL before meals <180 mg/dL all other times of the day Blood 02/10/2021 11:5 5 PM EDT 02/10/2021 11:55 PM EDT Edilma Mary MD POINT OF CARE TEST O RDERABLES Performing Organization Address City/[facility]/ZIP Co de Phone Number [facility] [place] [address] * (ABNORMAL) POCT Glucose (02/10/2021 9:10 PM EDT) Glucose, POC 225(H) 65 - 199 mg/dL [facility] Comment: Supplemental ranges: <140 mg/dL before meals <180 mg/dL all other times of the day Blood 02/10/2021 9:10 PM EDT 02/10/2021 9:10 PM EDT Edilma Mary MD POINT OF CARE TEST O RDERAMISBAH Performing Organization Address [facility] Co de Phone Number [facility] [place] [address] * (ABNORMAL) POCT Glucose (02/10/2021 6:55 PM EDT) Glucose, POC 346(H) 65 - 199 mg/dL [facility] Comment: Supplemental ranges: <140 mg/dL before meals <180 mg/dL all other times of the day Blood 02/10/2021 6:55 PM EDT 02/10/2021 6:55 PM EDT Edilma Mary MD POINT OF CARE TEST O RDERAMISBAH Performing Organization Address [facility] Co de Phone Number [facility] [place] [address] * (ABNORMAL) POCT Glucose (02/10/2021 3:44 PM EDT) Glucose, POC 284(H) 65 - 199 mg/dL [facility] Comment: Supplemental ranges: <140 mg/dL before meals <180 mg/dL all other times of the day Blood 02/10/2021 3:44 PM EDT 02/10/2021 3:44 PM EDT Edilma Mary MD POINT OF CARE TEST O RDERABLES Performing Organization Address [facility] Co de Phone Number [facility] [place] [address] * Vancomycin, trough (02/10/2021 2:15 PM EDT) Vancomycin, Trough 12.9 mg/L [facility] Comment: Therapeutic range for [...] Rodriguez DO CHEMISTRY ORDERABLES Performing Organization Address [facility] Co de Phone Number [facility] [place] [address] * POCT Glucose (02/10/2021 11:46 AM EDT) Glucose, POC 154 65 - 199 mg/dL [facility] Comment: Supplemental ranges: <140 mg/dL before meals <180 mg/dL all other times of the day Blood 02/10/2021 11:4 6 AM EDT 02/10/2021 11:46 AM EDT Edilma Mary MD POINT OF CARE TEST O RDERABLES Performing Organization Address [facility] Co de Phone Number [facility] [place] [address] * POCT Glucose (02/10/2021 10:40 AM EDT) Glucose, POC 132 65 - 199 mg/dL [facility] Comment: Supplemental ranges: <140 mg/dL before meals <180 mg/dL all other times of the day Blood 02/10/2021 10:4 0 AM EDT 02/10/2021 10:40 AM EDT Edilma Mary MD POINT OF CARE TEST O RDERABLES Performing Organization Address [facility] [place] [address] * Anaerobic Culture (02/10/2021 10:02 AM EDT) Anaerobic Culture No anaerobic organisms isolated [facility] Deep Wound STRUCTURE OF LEFT FOOT / Unknown 02/10/2021 10:02 AM EDT 02/10/2021 10:31 AM EDT Comment:LEFT LATERAL PROXIMA L ANKLE Narrative Resulting Agency Comment Spec In Lab Jacobo De La Cruz MD MICROBIOLOGY - GENER AL ORDERABLES Performing Organization Address [facility] Phone Number [facility] [place] [address] * (ABNORMAL) Abscess/Wound Aspirate Culture (02/10/2021 10:02 AM EDT) Abscess/Wound Aspirate Culture Many Staphylococcus aureus Few Enterococcus faecalis Susceptibilities previously reported Few normal cutaneous karime (A) [facility] Gram Stain Many Neutrophils seen Rare Gram Positive Cocci seen (A) [facility] Organism Staphylococcus aureus(A) [facility] Organism Enterococcus faecalis(A) [facility] Organism Gram Positive Cocci(A) [facility] Deep Wound STRUCTURE OF LEFT FOOT / Unknown 02/10/2021 10:02 AM EDT 02/10/2021 10:31 AM EDT Comment:LEFT LATERAL PROXIMA L ANKLE Narrative Resulting Agency Comment Spec In Lab Jacobo De La Cruz MD MICROBIOLOGY - GENER AL ORDERABLES Performing Organization Address [facility] Co de Phone Number [facility] [place] [address] * Anaerobic Culture (02/10/2021 10:02 AM EDT) Anaerobic Culture No anaerobic organisms isolated [facility] Deep Wound STRUCTURE OF LEFT FOOT / Unknown 02/10/2021 10:02 AM EDT 02/10/2021 10:31 AM EDT Comment:LEFT LATERAL DISTAL ANKLE Narrative Resulting Agency Comment Spec In Lab Jacobo De La Cruz MD MICROBIOLOGY - GENER AL ORDERABLES Performing Organization Address [facility] de Phone Number [facility] [place] [address] * (ABNORMAL) Abscess/Wound Aspirate Culture (02/10/2021 10:02 AM EDT) Abscess/Woun d Aspirate Culture Many Staphylococcus aureus : Susceptibilities previously reported Moderate normal cutaneous karime (A) [facility] Gram Stain Many Neutrophils seen Few Gram Positive Cocci seen (A) [facility] Organism Staphylococcus aureus(A) [facility] Organism Gram Positive Cocci(A) [facility] Deep Wound STRUCTURE OF LEFT FOOT / Unknown 02/10/2021 10:02 AM EDT 02/10/2021 10:31 AM EDT Comment:LEFT LATERAL DISTAL ANKLE Narrative Resulting Agency Comment Spec In Lab Jacobo De La Cruz MD MICROBIOLOGY - GENER AL ORDERABLES Performing Organization Address [facility] de Phone Number [facility] [place] [address] * POCT Glucose (02/10/2021 7:42 AM EDT) Glucose, POC 130 65 - 199 mg/dL [facility] Comment: Supplemental ranges: <140 mg/dL before meals <180 mg/dL all other times of the day Blood 02/10/2021 7:42 AM EDT 02/10/2021 7:42 AM EDT Edilma Mary MD POINT OF CARE TEST O RDERABLES [facility] [place] [address] * POCT Glucose (02/10/2021 5:02 AM EDT) Pathologist [facility] Glucose, POC 102 65 - 199 mg/dL [facility] Comment: Supplemental ranges: <140 mg/dL before meals <180 mg/dL all other times of the day Blood 02/10/2021 5:02 AM EDT 02/10/2021 5:02 AM EDT Edilma Mary MD POINT OF CARE TEST O RDERABLES Performing Organization Address [facility] Co de Phone Number [facility] [place] [address] * Differential, Automated (02/10/2021 4:01 AM EDT) [facility] Neutrophil % 73.3 % [facility] Neutrophil Absolute 4.98 1.70 - 6.10 x10(3)/[facility] Lymph % 14.3 % [facility] Lymphocytes Abs 1.0 0.9 - 3.2 x10(3)/[facility] Monocyte % 10.2 % [facility] Monocyte Abs 0.7 0.3 - 0.9 x10(3)/[facility] Eos % 1.6 % [facility] Eosinophils Abs 0.1 0.0 - 0.4 x10(3)/[facility] Basophil % 0.3 % [facility] Baso Absolute 0.0 0.0 - 0.1 x10(3)/[facility] Immature Gran % 0.30 % [facility] Comment: Immature granulocytes(IG's)percentage and absolute count will include metamyelocytes, myelocytes, and promyelocytes. Blood smears from CBCs yielding IG's will be scanned manually for concordance. If this scan disagrees with the automated IG or if promyelocytes are noted, a manual differential will be performed. Immature Gran Absolute 0.02 0.00 - 0.04 x10(3)/mcL [facility] Blood 02/10/2021 4:01 AM EDT 02/10/2021 4:21 AM EDT Narrative Resulting Agency Comment Spec In Lab Yani Dumas MD HEMATOLOGY ORDERABL ES [facility] [place] [address] * (ABNORMAL) Hemogram (02/10/2021 4:01 AM EDT) White Blood Cell 6.8 4.0 - 9.5 x10(3)/[facility] Red Blood Cell 3.60(L) 4.00 - 5.21 x10(6)/[facility] Hemoglobin 10.5(L) 11.7 - 15.5 gm/dL [facility] Hematocrit 32.6(L) 35.7 - 45.8 % [facility] Mean Cell Volume 90.6 82.6 - 94.4 fL [facility] Mean Cell Hemoglobin 29.2 27.1 - 32.0 pg [facility] Mean Cell Hemoglobin Concentration 32.2 31.7 - 35.0 gm/dL [facility] Platelet 160 145 - 357 x10(3)/[facility] RDW Standard Deviation 45.1 37.0 - 46.0 [facility] RDW coefficient of variation 13.5 11.5 - 14.1 % [facility] Mean Platelet Volume 11.6 7.6 - 12.9 fL [facility] NRBC% auto 0.0 % [facility] NRBC Absolute 0.000 0.000 - 0.000 x10(3)/[facility] Blood 02/10/2021 4:01 AM EDT 02/10/2021 4:21 AM EDT Narrative Resulting Agency Comment Spec In Lab Yani Dumas MD HEMATOLOGY ORDERABL ES [facility] [place] [address] * (ABNORMAL) Basic Metabolic Panel (non-fasting) (02/10/2021 4:01 AM EDT) Glucose 107 65 - 199 mg/dL [facility] Comment:Diabetes: >=200 mg/d L plus symptoms Blood Urea Nitrogen 11 8 - 18 mg/dL [facility] Creatinine 0.82 0.70 - 1.20 mg/dL [facility] Sodium 142 135 - 145 mmol/L [facility] Potassium 3.6 3.5 - 5.0 mmol/L [facility] Comment: Please note: ??Patients with WBC >100,000 may have falsely elevated Potassium levels. ??For accurate Potassium quantification in these patients send serum separator tube (gold top) for subsequent determinations. ??Contact the Clinical Chemistry Laboratory if there are any questions. Chloride 111(H) 98 - 107 mmol/L [facility] Carbon Dioxide 22 22 - 31 mmol/L [facility] Anion Gap 9 5 - 15 mmol/L [facility] Calcium 8.5 8.5 - 10.5 mg/dL [facility] Est Glomerular Filtration Rate 78 >=60 mL/min/1. 73 m?? [facility] Comment: This patient? s estimated [...] ORDERABLES Performing Organization Address City/[facility]/ZIP Co de Phone Number [facility] [place] [address] * POCT Glucose (02/10/2021 12:14 AM EDT) Glucose, POC 180 65 - 199 mg/dL [facility] Comment: Supplemental ranges: <140 mg/dL before meals <180 mg/dL all other times of the day Blood 02/10/2021 12:1 4 AM EDT 02/10/2021 12:14 AM EDT Edilma Mary MD POINT OF CARE TEST O RDERABLES Performing Organization Address [facility]/ZIP Co de Phone Number [facility] [place] [address] * POCT Glucose (02/09/2021 8:52 PM EDT) Glucose, POC 178 65 - 199 mg/dL [facility] Comment: Supplemental ranges: <140 mg/dL before meals <180 mg/dL all other times of the day Blood 02/09/2021 8:52 PM EDT 02/09/2021 8:52 PM EDT Edilma Mary MD POINT OF CARE TEST O RDERABLES Performing Organization Address City/[facility]/ZIP Co de Phone Number [facility] [place] [address] * (ABNORMAL) POCT Glucose (02/09/2021 4:15 PM EDT) Glucose, POC 260(H) 65 - 199 mg/dL [facility] Comment: Supplemental ranges: <140 mg/dL before meals <180 mg/dL all other times of the day Blood 02/09/2021 4:15 PM EDT 02/09/2021 4:15 PM EDT Edilma Mary MD POINT OF CARE TEST O VIKKI [facility] [place] [address] * (ABNORMAL) POCT Glucose (02/09/2021 2:09 PM EDT) Glucose, POC 346(H) 65 - 199 mg/dL [facility] Comment: Supplemental ranges: <140 mg/dL before meals <180 mg/dL all other times of the day Blood 02/09/2021 2:09 PM EDT 02/09/2021 2:09 PM EDT Edilma Mary MD POINT OF CARE TEST O VIKKI Performing Organization Address [facility]/ZIP Co de Phone Number [facility] [place] [address] * (ABNORMAL) POCT Glucose (02/09/2021 11:58 AM EDT) Glucose, POC 339(H) 65 - 199 mg/dL [facility] Comment: Supplemental ranges: <140 mg/dL before meals <180 mg/dL all other times of the day Blood 02/09/2021 11:5 8 AM EDT 02/09/2021 11:58 AM EDT Edilma Mary MD POINT OF CARE TEST O RDERAMISBAH Performing Organization Address City/[facility]/ZIP Co de Phone Number [facility] [place] [address] * POCT Glucose (02/09/2021 7:49 AM EDT) Glucose, POC 168 65 - 199 mg/dL [facility] Comment: Supplemental ranges: <140 mg/dL before meals <180 mg/dL all other times of the day Blood 02/09/2021 7:49 AM EDT 02/09/2021 7:49 AM EDT Edilma Mary MD POINT OF CARE TEST O RDERABLES [facility] [place] [address] * (ABNORMAL) Differential, Automated (02/09/2021 5:13 AM EDT) Neutrophil % 73.2 % [facility] Neutrophil Absolute 6.14(H) 1.70 - 6.10 x10(3)/ L [facility] Lymph % 11.5 % [facility] Lymphocytes Abs 1.0 0.9 - 3.2 x10(3)/ L [facility] Monocyte % 14.1 % [facility] Monocyte Abs 1.2(H) 0.3 - 0.9 x10(3)/ L [facility] Eos % 0.6 % [facility] Eosinophils Abs 0.0 0.0 - 0.4 x10(3)/[facility] Basophil % 0.4 % [facility] Baso Absolute 0.0 0.0 - 0.1 x10(3)/ L [facility] Immature Gran % 0.20 % [facility] Comment: Immature granulocytes(IG's)percentage and absolute count will include metamyelocytes, myelocytes, and promyelocytes. Blood smears from CBCs yielding IG's will be scanned manually for concordance. If this scan disagrees with the automated IG or if promyelocytes are noted, a manual differential will be performed. Immature Gran Absolute 0.02 0.00 - 0.04 x10(3)/mc L [facility] Blood 02/09/2021 5:13 AM EDT 02/09/2021 5:18 AM EDT Narrative Resulting Agency Comment Spec In Lab Yani Dumas MD HEMATOLOGY ORDERABL ES [facility] [place] [address] * Hemogram (02/09/2021 5:13 AM EDT) [facility] White Blood Cell 8.4 4.0 - 9.5 x10(3)/[facility] LAB[facility]AT[facility] Red Blood Cell 4.25 4.00 - 5.21 x10(6)/[facility] Hemoglobin 12.5 11.7 - 15.5 gm/dL [facility] Hematocrit 38.3 35.7 - 45.8 % [facility] Mean Cell Volume 90.1 82.6 - 94.4 fL [facility] Mean Cell Hemoglobin 29.4 27.1 - 32.0 pg [facility] Mean Cell Hemoglobin Concentration 32.6 31.7 - 35.0 gm/dL [facility] Platelet 147 145 - 357 x10(3)/[facility] RDW Standard Deviation 44.1 37.0 - 46.0 [facility] RDW coefficient of variation 13.4 11.5 - 14.1 % [facility] Mean Platelet Volume 11.2 7.6 - 12.9 fL [facility] NRBC% auto 0.0 % [facility] NRBC Absolute 0.000 0.000 - 0.000 x10(3)/[facility] Blood 02/09/2021 5:13 AM EDT 02/09/2021 5:18 AM EDT Narrative Resulting Agency Comment Spec In Lab Yani Dumas MD HEMATOLOGY ORDERABL ES [facility] [place] [address] * Vitamin D, 25-Hydroxy (02/09/2021 5:13 AM EDT) Pathologist [facility] Vitamin D Total 25 OH 43 21 - 100 ng/mL [facility] Vit D Interp Sufficient [facility] Blood 02/09/2021 5:13 AM EDT 02/09/2021 5:18 AM EDT Narrative Resulting Agency Comment Spec In Lab Cami M Torito DEPUTY ASSESSOR CHEMISTRY ORDERABLES [facility] [place] [address] * (ABNORMAL) Basic Metabolic Panel (non-fasting) (02/09/2021 5:13 AM EDT) Glucose 140 65 - 199 mg/dL [facility] Comment:Diabetes: >=200 mg/d L plus symptoms Blood Urea Nitrogen 12 8 - 18 mg/dL [facility] Creatinine 0.92 0.70 - 1.20 mg/dL [facility] Sodium 141 135 - 145 mmol/L [facility] Potassium 3.8 3.5 - 5.0 mmol/L [facility] Comment: Please note: ??Patients with WBC >100,000 may have falsely elevated Potassium levels. ??For accurate Potassium quantification in these patients send serum separator tube (gold top) for subsequent determinations. ??Contact the Clinical Chemistry Laboratory if there are any questions. Chloride 110(H) 98 - 107 mmol/L [facility] Carbon Dioxide 21(L) 22 - 31 mmol/L [facility] Anion Gap 10 5 - 15 mmol/L [facility] Calcium 8.9 8.5 - 10.5 mg/dL [facility] Est Glomerular Filtration Rate 68 >=60 mL/min/1. 73 m?? [facility] Comment: This patient? s estimated [...] Mary MD CHEMISTRY ORDERABLES Performing Organization Address [facility] Co de Phone Number [facility] [place] [address] * POCT Glucose (02/09/2021 4:44 AM EDT) Glucose, POC 131 65 - 199 mg/dL [facility] Comment: Supplemental ranges: <140 mg/dL before meals <180 mg/dL all other times of the day Blood 02/09/2021 4:44 AM EDT 02/09/2021 4:44 AM EDT Edilma Mary MD POINT OF CARE TEST O RDERABLES Performing Organization Address [facility] Co de Phone Number [facility] [place] [address] * (ABNORMAL) POCT Glucose (02/08/2021 11:24 PM EDT) Glucose, POC 204(H) 65 - 199 mg/dL [facility] Comment: Supplemental ranges: <140 mg/dL before meals <180 mg/dL all other times of the day Blood 02/08/2021 11:2 4 PM EDT 02/08/2021 11:24 PM EDT Edilma Mary MD POINT OF CARE TEST O RDERABLES Performing Organization Address [facility] Co de Phone Number [facility] [place] [address] * (ABNORMAL) POCT Glucose (02/08/2021 8:27 PM EDT) Glucose, POC 201(H) 65 - 199 mg/dL [facility] Comment: Supplemental ranges: <140 mg/dL before meals <180 mg/dL all other times of the day Blood 02/08/2021 8:27 PM EDT 02/08/2021 8:27 PM EDT Edilma Mary MD POINT OF CARE TEST O RDERABLES [facility] [place] [address] * (ABNORMAL) POCT Glucose (02/08/2021 4:20 PM EDT) Glucose, POC 225(H) 65 - 199 mg/dL [facility] Comment: Supplemental ranges: <140 mg/dL before meals <180 mg/dL all other times of the day Blood 02/08/2021 4:20 PM EDT 02/08/2021 4:20 PM EDT Edilma Mary MD POINT OF CARE TEST O RDERABLES Performing Organization Address City/[facility]/ZIP Co de Phone Number [facility] [place] [address] * POCT Glucose (02/08/2021 12:11 PM EDT) Glucose, POC 186 65 - 199 mg/dL [facility] Comment: Supplemental ranges: <140 mg/dL before meals <180 mg/dL all other times of the day Blood 02/08/2021 12:1 1 PM EDT 02/08/2021 12:11 PM EDT Edilma Mary MD POINT OF CARE TEST O RDERABLES [facility] [place] [address] * Anaerobic Culture (02/08/2021 10:30 AM EDT) Anaerobic Culture No anaerobic organisms isolated [facility] Deep Wound ANKLE REGION STRUCTURE / Unknown 02/08/2021 10:30 AM EDT 02/08/2021 11:32 AM EDT Comment:SWAB ANKLE HARDWARE #3 Narrative Resulting Agency Comment Spec In Lab Henrry Quiñones MD MICROBIOLOGY - GENE RAL ORDERABLES Performing Organization Address [facility] Co de Phone Number [facility] [place] [address] * (ABNORMAL) Abscess/Wound Aspirate Culture (02/08/2021 10:30 AM EDT) Abscess/Woun d Aspirate Culture Moderate Staphylococcus aureus : Susceptibilities previously reported Few Enterococcus faecalis : Susceptibilities previously reported (A) [facility] Gram Stain Few Neutrophils seen Rare Gram Positive Cocci seen (A) [facility] Organism Staphylococcus aureus(A) [facility] Organism Enterococcus faecalis(A) [facility] Organism Gram Positive Cocci(A) [facility] Deep Wound ANKLE REGION STRUCTURE / Unknown 02/08/2021 10:30 AM EDT 02/08/2021 11:32 AM EDT Comment:SWAB ANKLE HARDWARE #3 Narrative Resulting Agency Comment Spec In Lab Henrry Quiñones MD MICROBIOLOGY - GENE RAL ORDERABLES Performing Organization Address [facility] Co de Phone Number [facility] [place] [address] * Anaerobic Culture (02/08/2021 10:30 AM EDT) Anaerobic Culture No anaerobic organisms isolated [facility] Deep Wound ANKLE REGION STRUCTURE / Unknown 02/08/2021 10:30 AM EDT 02/08/2021 11:33 AM EDT Comment:SWAB LEFT ANKLE HARD FERGUSON #2 Narrative Resulting Agency Comment Spec In Lab Henrry Quiñones MD MICROBIOLOGY - GENE RAL ORDERABLES Performing Organization Address [facility]/ZIP Co de Phone Number [facility] [place] [address] * (ABNORMAL) Abscess/Wound Aspirate Culture (02/08/2021 10:30 AM EDT) Abscess/Woun d Aspirate Culture Many Staphylococcus aureus : Susceptibilities previously reported Many Enterococcus faecalis : Susceptibilities previously reported (A) [facility] Gram Stain Few Neutrophils seen Moderate Gram Positive Cocci (A) [facility] Organism Staphylococcus aureus(A) [facility] Organism Enterococcus faecalis(A) [facility] Deep Wound ANKLE REGION STRUCTURE / Unknown 02/08/2021 10:30 AM EDT 02/08/2021 11:33 AM EDT Comment:SWAB LEFT ANKLE HARD FERGUSON #2 Narrative Resulting Agency Comment Spec In Lab Henrry Quiñones MD MICROBIOLOGY - GENE RAL ORDERABLES Performing Organization Address [facility] Co de Phone Number [facility] [place] [address] * Anaerobic Culture (02/08/2021 10:30 AM EDT) Anaerobic Culture No anaerobic organisms isolated [facility] Deep Wound ANKLE REGION STRUCTURE / Unknown 02/08/2021 10:30 AM EDT 02/08/2021 11:31 AM EDT Comment:SWAB LEFT ANKLE HARD FERGUSON #1 Narrative Resulting Agency Comment Spec In Lab Henrry Quiñones MD MICROBIOLOGY - GENE RAL ORDERABLES Performing Organization Address City/[facility]/ZIP Co de Phone Number [facility] [place] [address] * (ABNORMAL) Abscess/Wound Aspirate Culture (02/08/2021 10:30 AM EDT) Abscess/Wound Aspirate Culture Many Staphylococcus aureus Many Enterococcus faecalis (A) [facility] Gram Stain Moderate Neutrophils Many Gram Positive Cocci seen (A) [facility] Organism Staphylococcus aureus(A) [facility] Organism Enterococcus faecalis(A) [facility] Organism Gram Positive Cocci(A) [facility] Deep Wound ANKLE REGION STRUCTURE [...] Sensitive Comment:Gentamicin i s not appropriate for [place]-therapy. Staphylococcus aureus Oxacillin VITEK 2 METHOD Sensitive [...] METHOD Sensitive Henrry Quiñones MD MICROBIOLOGY - [facility] ORDERABLES [facility] [place] [address] * POCT Glucose (02/08/2021 7:57 AM EDT) Glucose, POC 141 65 - 199 mg/dL [facility] Comment: Supplemental ranges: <140 mg/dL before meals <180 mg/dL all other times of the day Blood 02/08/2021 7:57 AM EDT 02/08/2021 7:57 AM EDT Mark Chavez MD POINT OF CARE TEST O RDERABLES [facility] [place] [address] * POCT Glucose (02/08/2021 4:10 AM EDT) Glucose, POC 164 65 - 199 mg/dL [facility] Comment: Supplemental ranges: <140 mg/dL before meals <180 mg/dL all other times of the day Blood 02/08/2021 4:10 AM EDT 02/08/2021 4:10 AM EDT Mark Chavez MD POINT OF CARE TEST O RDERABLES [facility] [place] [address] * (ABNORMAL) Differential, Automated (02/08/2021 3:19 AM EDT) [facility] Neutrophil % 80.5 % [facility] Neutrophil Absolute 6.90(H) 1.70 - 6.10 x10(3)/mc L [facility] Lymph % 10.6 % [facility] Lymphocytes Abs 0.9 0.9 - 3.2 x10(3)/mc L [facility] Monocyte % 7.8 % [facility] Monocyte Abs 0.7 0.3 - 0.9 x10(3)/mc L [facility] Eos % 0.4 % [facility] Eosinophils Abs 0.0 0.0 - 0.4 x10(3)/mc L [facility] Basophil % 0.2 % [facility] Baso Absolute 0.0 0.0 - 0.1 x10(3)/mc L [facility] Immature Gran % 0.50 % [facility] Comment: Immature granulocytes(IG's)percentage and absolute count will include metamyelocytes, myelocytes, and promyelocytes. Blood smears from CBCs yielding IG's will be scanned manually for concordance. If this scan disagrees with the automated IG or if promyelocytes are noted, a manual differential will be performed. Immature Gran Absolute 0.04 0.00 - 0.04 x10(3)/mc L [facility] Blood 02/08/2021 3:19 AM EDT 02/08/2021 3:50 AM EDT Narrative Resulting Agency Comment Spec In Lab Mark Chavez MD HEMATOLOGY ORDERABLE S [facility] [place] [address] * Hemogram (02/08/2021 3:19 AM EDT) White Blood Cell 8.6 4.0 - 9.5 x10(3)/[facility] LABORATORY Red Blood Cell 4.45 4.00 - 5.21 x10(6)/[facility] Hemoglobin 13.0 11.7 - 15.5 gm/dL [facility] Hematocrit 39.7 35.7 - 45.8 % [facility] Mean Cell Volume 89.2 82.6 - 94.4 fL [facility] Mean Cell Hemoglobin 29.2 27.1 - 32.0 pg [facility] Mean Cell Hemoglobin Concentration 32.7 31.7 - 35.0 gm/dL [facility] Platelet 165 145 - 357 x10(3)/[facility] LABORATORY RDW Standard Deviation 42.5 37.0 - 46.0 [facility] LABORATORY RDW coefficient of variation 13.1 11.5 - 14.1 % [facility] Mean Platelet Volume 11.6 7.6 - 12.9 [facility] LABORATORY NRBC% auto 0.0 % [facility] NRBC Absolute 0.000 0.000 - 0.000 x10(3)/mcL [facility] Blood 02/08/2021 3:19 AM EDT 02/08/2021 3:50 AM EDT Narrative Resulting Agency Comment Spec In Lab Mark Chavez MD HEMATOLOGY ORDERABLE S [facility] [place] [address] * (ABNORMAL) Hemoglobin A1c (02/08/2021 3:19 AM EDT) Hemoglobin A1c 7.9(H) 4.3 - 5.6 % [facility] Comment: Reference Range: 4.3 - [...] Mellitus, Diabetes Care 2013; 36: Suppl. 1, L77-99 Estimated Average Glucose 181 mg/dL [facility] Comment: eAG equivalents for HbA1c [...] into estimated average glucose values. ??Diabetes Care 2008:31(8):5451-6240. Blood 02/08/2021 3:19 AM EDT 02/08/2021 3:50 AM EDT Narrative Resulting Agency Comment Spec In Lab Mark Chavez MD CHEMISTRY ORDERABLES [facility] [place] [address] * Basic Metabolic Panel (non-fasting) (02/08/2021 3:19 AM EDT) Glucose 177 65 - 199 mg/dL [facility] Comment:Diabetes: >=200 mg/d L plus symptoms Blood Urea Nitrogen 13 8 - 18 mg/dL [facility] Creatinine 0.96 0.70 - 1.20 mg/dL [facility] Sodium 136 135 - 145 mmol/L [facility] Potassium 3.7 3.5 - 5.0 mmol/L [facility] Comment: Please note: ??Patients with WBC >100,000 may have falsely elevated Potassium levels. ??For accurate Potassium quantification in these patients send serum separator tube (gold top) for subsequent determinations. ??Contact the Clinical Chemistry Laboratory if there are any questions. Chloride 102 98 - 107 mmol/L [facility] Carbon Dioxide 23 22 - 31 mmol/L [facility] Anion Gap 11 5 - 15 mmol/L [facility] Calcium 9.0 8.5 - 10.5 mg/dL [facility] Est Glomerular Filtration Rate 65 >=60 mL/min/1. 73 m?? [facility] Comment: This patient? s estimated [...] ORDERABLES Performing Organization Address City/[facility]/ZIP Co de Phone Number [facility] [place] [address] * (ABNORMAL) POCT Glucose (02/08/2021 2:05 AM EDT) Glucose, POC 204(H) 65 - 199 mg/dL [facility] Comment: Supplemental ranges: <140 mg/dL before meals <180 mg/dL all other times of the day Blood 02/08/2021 2:05 AM EDT 02/08/2021 2:05 AM EDT Mark Chavez MD POINT OF CARE TEST O RDERABLES Performing Organization Address [facility] Co de Phone Number [facility] [place] [address] * (ABNORMAL) POCT Glucose (02/07/2021 11:47 PM EDT) Glucose, POC 267(H) 65 - 199 mg/dL [facility] Comment: Supplemental ranges: <140 mg/dL before meals <180 mg/dL all other times of the day Blood 02/07/2021 11:4 7 PM EDT 02/07/2021 11:47 PM EDT Mark Chavez MD POINT OF CARE TEST O RDERABLES Performing Organization Address City/[facility]/ZIP Co de Phone Number [facility] [place] [address] * (ABNORMAL) POCT Glucose (02/07/2021 10:07 PM EDT) Glucose, POC 311(H) 65 - 199 mg/dL [facility] Comment: Supplemental ranges: <140 mg/dL before meals <180 mg/dL all other times of the day Blood 02/07/2021 10:0 7 PM EDT 02/07/2021 10:07 PM EDT Mark Chavez MD POINT OF CARE TEST O RDERAMISBAH Performing Organization Address City/[facility]/ZIP Co de Phone Number [facility] [place] [address] * (ABNORMAL) POCT Glucose (02/07/2021 8:51 PM EDT) Glucose, POC 254(H) 65 - 199 mg/dL [facility] Comment: Supplemental ranges: <140 mg/dL before meals <180 mg/dL all other times of the day Blood 02/07/2021 8:51 PM EDT 02/07/2021 8:51 PM EDT Mark Chavez MD POINT OF CARE TEST O DIMITRISERAMISBAH Performing Organization Address [facility]/ZIP Co de Phone Number [facility] [place] [address] * Blood culture (02/07/2021 7:37 PM EDT) Blood Culture No growth at 5 days. [facility] Blood 02/07/2021 7:37 PM EDT 02/07/2021 7:50 PM EDT Comment:L AC Narrative Resulting Agency Comment Spec In Lab Jacobo De La Cruz MD MICROBIOLOGY - BLOOD ORDERABLES Performing Organization Address City/[facility]/ZIP Co de Phone Number [facility] [place] [address] * Blood culture (02/07/2021 6:55 PM EDT) Blood Culture No growth at 5 days. [facility] Blood 02/07/2021 6:55 PM EDT 02/07/2021 7:51 PM EDT Narrative Resulting Agency Comment Spec In Lab Jacobo De La Cruz MD MICROBIOLOGY - BLOOD ORDERABLES Performing Organization Address [facility] Co de Phone Number [facility] [place] [address] * Ab Comment (02/07/2021 6:50 PM EDT) [...] MD, PhD Transfusion Medicine Service 02/09/21 21:44 [facility] Comment: DUGLAS MURPHY, Pathologist Verified:02/09/21 Blood 02/07/2021 6:50 PM EDT 02/07/2021 7:05 PM EDT Narrative Resulting Agency Comment Spec In Lab Nuvia DIALLO BLOOD BANK LAB ORDErica LEMOS Performing Organization Address City/[facility]/ZIP Co de Phone Number [facility] [place] [address] * Antibody identification (02/07/2021 6:50 PM EDT) Ab Identified Anti-K [facility] Blood 02/07/2021 6:50 PM EDT 02/07/2021 7:05 PM EDT Narrative Resulting Agency Comment Spec In Lab Nuvia DIALLO BLOOD BANK LAB ORDErica LEMOS [facility] [place] [address] * Type and Screen Validity (02/07/2021 6:50 PM EDT) T&S only valid at [facility] LABORATORY Comment:This Type and Screen result is only valid at the [facility] Blood 02/07/2021 6:50 PM EDT 02/07/2021 7:05 PM EDT Narrative Resulting Agency Comment Spec In Lab Nuvia DIALLO BLOOD BANK LAB ORDErica LEMOS Performing Organization Address [facility]/ZIP Co de Phone Number [facility] [place] [address] * ABORH Recheck Status (02/07/2021 6:50 PM EDT) ABORH Recheck Order Order Placed [facility] ABORH Type Recheck Complete [facility] Blood 02/07/2021 6:50 PM EDT 02/07/2021 7:05 PM EDT Narrative Resulting Agency Comment Spec In Lab Nuvia DIALLO BLOOD BANK LAB ORDE AMINTA Performing Organization Address [facility]/ZIP Co de Phone Number [facility] [place] [address] * Antibody screen (02/07/2021 6:50 PM EDT) Ab Screen Interp Positive [facility] Expires at [id number] on: 02/10/2021 [facility] Blood 02/07/2021 6:50 PM EDT 02/07/2021 7:05 PM EDT Narrative Resulting Agency Comment Spec In Lab Nuvia DIALLO BLOOD BANK LAB ORDE AMINTA [facility] [place] [address] * ABO/Rh Typing (02/07/2021 6:50 PM EDT) ABORH Type O Neg [facility] Blood 02/07/2021 6:50 PM EDT 02/07/2021 7:05 PM EDT Narrative Resulting Agency Comment Spec In Lab Nuvia DIALLO BLOOD BANK LAB ALMA LEMOS [facility] [place] [address] * CT Lower Extremity w Contrast Left [...] have questions please contact the health healthcare applications analyst that requested your imaging first. ? Electronically signed by: Meli Gonzales MD, [facility] ([phone]), at 02/07/2021 6:17 PM Narrative 02/07/2021 6:17 [...] Within these limits, there is a small [id number] collection adjacent to the distal aspect of [...] who have questions please contactthe health healthcare applications analyst that requested your imaging first. Electronically signed by: Meli Gonzales MD, [facility]([phone]), at 02/07/2021 6:17 PM Mark Chavez MD [facility] CT ORDERABLES * XR Ankle Min 3 [...] have questions please contact the health healthcare applications analyst that requested your imaging first. ? Electronically signed by: Anthony Carrillo MD, [facility] ([phone]), at 02/07/2021 3:44 PM Narrative 02/07/2021 3:44 [...] who have questions please contactthe health healthcare applications analyst that requested your imaging first. Kristian Colorado III, MD IMG DX ORDERABLES * Vitamin D, 25-Hydroxy (02/07/2021 3:03 PM EDT) Vitamin D Total 25 OH 55 21 - 100 ng/mL [facility] Vit D Interp Sufficient [facility] Blood Venous Draw / Unknown 02/07/2021 3:03 PM EDT 02/07/2021 3:14 PM EDT Narrative Resulting Agency Comment Spec In Lab Cami Ugarte DEPUTY ASSESSOR CHEMISTRY ORDERABLES [facility] [place] [address] * Green Tube HOLD (02/07/2021 3:03 PM EDT) Green Hold Sample in lab. [facility] Blood Venous Draw / Unknown 02/07/2021 3:03 PM EDT 02/07/2021 3:11 PM EDT Nuvia DIALLO CHEMISTRY ORDERABLE S [facility] [place] [address] * Gold Tube HOLD (02/07/2021 3:03 PM EDT) Gold Hold Sample in lab. [facility] Blood Venous Draw / Unknown 02/07/2021 3:03 PM EDT 02/07/2021 3:10 PM EDT Nuvia DIALLO CHEMISTRY ORDERABLE S [facility] [place] [address] * (ABNORMAL) Differential, Automated (02/07/2021 3:03 PM EDT) Pathologist [facility] Neutrophil % 90.7 % [facility] Neutrophil Absolute 8.98(H) 1.70 - 6.10 x10(3)/[facility] LABORATORY Lymph % 3.1 % [facility] Lymphocytes Abs 0.3(L) 0.9 - 3.2 x10(3)/[facility] Monocyte % 5.2 % [facility] Monocyte Abs 0.5 0.3 - 0.9 x10(3)/[facility] Eos % 0.2 % [facility] Eosinophils Abs 0.0 0.0 - 0.4 x10(3)/[facility]AT[facility] Basophil % 0.5 % [facility] Baso Absolute 0.0 0.0 - 0.1 x10(3)/[facility] Immature Gran % 0.30 % [facility] Comment: Immature granulocytes(IG's)percentage and absolute count will include metamyelocytes, myelocytes, and promyelocytes. Blood smears from CBCs yielding IG's will be scanned manually for concordance. If this scan disagrees with the automated IG or if promyelocytes are noted, a manual differential will be performed. Immature Gran Absolute 0.03 0.00 - 0.04 x10(3)/[facility] Blood 02/07/2021 3:03 PM EDT 02/07/2021 3:08 PM EDT Narrative Resulting Agency Comment Spec In Lab Nuvia DIALLO HEMATOLOGY ORDERABL ES [facility] [place] [address] * (ABNORMAL) Hemogram (02/07/2021 3:03 PM EDT) Pathologist [facility] White Blood Cell 9.9(H) 4.0 - 9.5 x10(3)/[facility]AT[facility] Red Blood Cell 4.77 4.00 - 5.21 x10(6)/[facility] Hemoglobin 13.8 11.7 - 15.5 gm/dL [facility] Hematocrit 41.8 35.7 - 45.8 % [facility] Mean Cell Volume 87.6 82.6 - 94.4 fL [facility] Mean Cell Hemoglobin 28.9 27.1 - 32.0 pg [facility] Mean Cell Hemoglobin Concentration 33.0 31.7 - 35.0 gm/dL [facility] Platelet 170 145 - 357 x10(3)/[facility] LABORATORY RDW Standard Deviation 41.8 37.0 - 46.0 [facility] LABORATORY RDW coefficient of variation 12.9 11.5 - 14.1 % [facility] Mean Platelet Volume 11.2 7.6 - 12.9 [facility] LABORATORY NRBC% auto 0.0 % [facility] NRBC Absolute 0.000 0.000 - 0.000 x10(3)/[facility] Blood 02/07/2021 3:03 PM EDT 02/07/2021 3:08 PM EDT Narrative Resulting Agency Comment Spec In Lab Nuvia DIALLO HEMATOLOGY ORDERABL ES [facility] [place] [address] * (ABNORMAL) CRP, acute inflammation (02/07/2021 3:03 PM EDT) C-Reactive Protein >300.0(H) <=4.9 mg/L [facility] Blood 02/07/2021 3:03 PM EDT 02/07/2021 3:13 PM EDT Narrative Resulting Agency Comment Spec In Lab Kristian Colorado III, MD CHEMISTRY ORDERABL ES Performing Organization Address [facility]/ZIP Co de Phone Number [facility] [place] [address] * (ABNORMAL) Sedimentation rate (02/07/2021 3:03 PM EDT) Sedimentation Rate Automated 58(H) 2 - 39 mm/hr [facility] Comment: Effective August 01, 2019 new capillary photometric technology has resulted in a change in reference ranges. It is recommended that each ESR result be reviewed with its own age appropriate reference range. Blood 02/07/2021 3:03 PM EDT 02/07/2021 3:08 PM EDT Narrative Resulting Agency Comment Spec In Lab Kristian Colorado III, MD HEMATOLOGY ORDERAB LES Performing Organization Address [facility] Co de Phone Number [facility] [place] [address] * (ABNORMAL) Basic Metabolic Panel (non-fasting) (02/07/2021 3:03 PM EDT) Glucose 315(H) 65 - 199 mg/dL [facility] Comment:Diabetes: >=200 mg/d L plus symptoms Blood Urea Nitrogen 12 8 - 18 mg/dL [facility] Creatinine 1.00 0.70 - 1.20 mg/dL [facility] Sodium 135 135 - 145 mmol/L [facility] Potassium 4.1 3.5 - 5.0 mmol/L [facility] Comment: Please note: ??Patients with WBC >100,000 may have falsely elevated Potassium levels. ??For accurate Potassium quantification in these patients send serum separator tube (gold top) for subsequent determinations. ??Contact the Clinical Chemistry Laboratory if there are any questions. Chloride 102 98 - 107 mmol/L [facility] Carbon Dioxide 22 22 - 31 mmol/L [facility] Anion Gap 11 5 - 15 mmol/L [facility] Calcium 9.3 8.5 - 10.5 mg/dL [facility] Est Glomerular Filtration Rate 62 >=60 mL/min/1. 73 m?? [facility] Comment: This patient? s estimated [...] Kristian Colorado III, MD CHEMISTRY ORDERABL ES [facility] [place] [id number] documented in this encounter Visit Diagnoses Not [...] 70 mg/dL., Routine 0828 (Given - Provider: Cnythia Tadeo, SUNIL)1331 (Given - Provider: Cynthia Tadeo, [...] Herbert RN)1215 (Given - Provider: Kelsie Herbert, SUNIL)1601 (Given - Provider: Kelsie Herbert, SUNIL) levothyroxine [...] Tadeo RN)1824 (Given - Provider: Cynthia Tadeo SUNIL)2359 (Given - Provider: Madeline Salomon, RN) [...] at 2159, Until Tue02/18/21 at 210, Nausea, Start with 4mg and if ineffective [...] e 02/17/21 at 2348, Until Tue02/18/21 at 2107, Pain, severe pain (7-10), Initial dose 10mg. If pain control not adequate in 60 minutes, give additional 5mg, Routine documented in this encounter Care Teams Bundle Breaker Relationship Specialty Start Date End Date Maryuri Evans MD [address] [place] [address] PCP - General 09/23/14 documented as of this encounter
--- OUTSIDE RECORDS SUMMARY | 2024-05-31 17:48 | XMS_ITS | Encounter Summary ---
Author Organization [facility] Address [facility] [place] [address] Care Team Providers Care Contract Accountant Name Role Phone Maryuri Evans MD Primary Care Provider [phone] Reason for Visit * Auth/Cert Specialty Diagnoses / Procedures Referred By Conthyun t Referred To Contact Diagnoses Abscess of ankle Ankle abscess Procedures Emergency IPI Referral ID Status Reason Start Date Expiration Date Visits Re quested Visits Authorized [id number] 1 1 Encounter Details Date Type Department Care Team (Late st Contact Info) Description 02/08/2021 9:51 AM EDT Anesthesia [place] [id number] Toño Barone MD [facility] [place] [address] Anesthesia Record Procedure Summary Procedure Name Responsible Anesthesiologist Anesthesia Start Time Anesthesia Stop Time DEBRIDEMENT SKIN AND SUBCU, LOWER EXTREMITY (WRVU 1.01) (Left: Ankle) Toño Barone MD 02/08/21 0951 02/08/21 1045 Events Date Time Event Comment 02/08/2021 0929 0951 AN Verify 0951 Start 0951 An Start Data 0958 An Induction 1001 An Intubation 1001 Anesthesia Ready 1014 Procedure Start 1034 Extubation/LMA Out 1039 an stop data 1045 Recovery or ICU Handoff Adilene ent care was transferred to the destination unit staff after review of the patient's medical history, current anesthetic/surgical status and plan, according to the Provider Handoff Checklist. 1045 Stop Meds Name Total Propofol 160 mg fentaNYL 100 mcg Midazolam 1 mg IV Lidocaine 40 mg Ondansetron 8 mg PHENYLephrine 80 mcg ceFAZolin 2 g Lactated Ringers 400 mL * Agents Name [...] 92409/11/19 1131 by Gabby Fontenot RN 02/12/21 09 by Liane Granger RN (RETIRED) Peripheral IV Line - Single Lumen 02/07/21; 2200; median cubital vein (antecubital fossa), left; [id number] catheter system; 20 gauge; PEÑA AUGUSTE; removed per policy/procedure, site care per policy/procedure, catheter/device intact; 02/11/21; 25402/07/21 220 by Juani Kang RN 02/11/21 025 by Lisbeth Mar, SUNIL Supraglottic Mask Ventilation: No t Attempted (0); LMA Type: iGel; LMA Size: 4; Inserted by: John Paul; Removal Date: 02/08/21; Removal Time: 1034 02/08/21 1001 by Roddy Coker CRNA 02/08/21 1034 by Roddy Coker CRNA Incision 02/08/21; 1014; Left ; ankle; vertical; 04/19/22 (LDA cleanup utility RA#[id number]); 1715 (LDA cleanup utility RA#[id number]) 02/08/21 1014 by Shasta Tejada RN 04/19/22 1715 by Kaylin Hart NPCHAUNCEY 02/08/21; 1026; Left ; ankle; 03/13/21; 0902/08/21 1026 by Shasta Tejada RN 03/13/21 0900 by Jeyson Armendariz documented in this encounter Social History Tobacco [...] OR Notes * Anesthesia Postprocedure Evaluation - Toño Barone MD - 02/08/2021 11:20 AM EDT Department of Anesthesiology Post-procedure Note Patient: Jesenia Méndez Procedure Summary Date: 02/08/21 Room / Location[facility] Anesthesia Start: 950 Anesthesia Stop: 1044 Procedures: DEBRIDEMENT SKIN AND SUBCU, LOWER EXTREMITY (WRVU 1.01) (Left Ankle) MODIFIER WOUND VAC (Left Ankle) Diagnosis: (left ankle draining wound) Surgeons: Henrry Quiñones MD Responsible Provider: Toño Barone MD Anesthesia Type: general ASA Status: 2 All Anesthesia Providers: Anesthesiologist: Toño Barone MD Activities Director Scouting: Christy Francis MD Vitals Value Taken Time BP 154/76 02/08/21 1115 Temp 36.4 ??C (97.5 ??F) 02/08/21 1045 Pulse 103 02/08/21 1119 Resp 21 02/08/21 1119 SpO2 98 % 02/08/21 1119 Pain Level Vitals shown include unvalidated device data. Patient Location: PACU/[facility] Level of Consciousness: Conscious but Sleepy Pain Management: Satisfactory Analgesia PONV: None Cardiovascular Status: Hemodynamically Stable and At Baseline Respiratory Status: Supplemental O2 (NC or FM) and Stable Respiratory Status Postoperative Fluid Status: Intravascular EUvolemia Possible Anesthetic Complications: NONE apparent at time of evaluation Final Primary Anesthesia Type: General (The anesthetic type performed was the same as planned.) Comments: * Anesthesia Preprocedure Evaluation - Toño Barone MD - 02/08/2021 9:18 AM EDT Pre-Anesthesia Evaluation for: Jesenia Méndez a 60 y.o. female. Procedure(s): DEBRIDEMENT SKIN AND SUBCU, LOWER EXTREMITY (WRVU 1.01) Patient Active Problem List Diagnosis ??? Ankle abscess ??? Closed fracture of left ankle with routine healing ??? H/O insulin dependent diabetes mellitus ??? H/O: depression ??? Hypothyroidism ??? h/o chronic headaches ??? Closed fracture of shaft of right ulna with known elbow arthrodesis RIGHT ??? Chronic pain in left shoulder ??? S/P R elbow fusion on 12/14/17 Correa ??? Psoriasis History reviewed. No pertinent past medical history. Past Surgical History: Procedure Laterality Date ??? PRO ALVEOLOPLASTY W EXTRACTIONS, 4 OR MORE TEETH, PER QUADRANT N/A 09/11/2019 ALVEOPLASTY,IN CONJUNCTION WITH EXTRACTIONS,PER QUADRANT,ENT (WRVU 4.06) performed by Wesley Jacobo MD at [facility] ??? PRO FUSION/GRAFT OF ELBOW JOINT Right 2017 ARTHRODESIS, ELBOW JOINT WITH AUTOGENOUS GRAFT (WRVU 14.32) performed by Christopher Correa MD at [facility] ??? PRO REMOVAL DEEP IMPLANT Right 2017 REMOVAL OF IMPLANT, DEEP, ELBOW (WRVU 5.96) performed by Christopher Correa MD at [facility] ??? PRO REMOVAL ERUPTED TOOTH WITH ELEVATION OF MUCOPERIOSTEAL FLAP Bilateral 09/11/2019 SURGICAL EXTRACTIONS REQUIRING ELEVATION OF MUCOPERIOSTEAL FLAP AND REMOVAL OF BONE OR SECTION OF TOOTH (WRVU 1.09) performed by Wesley Jacobo MD at [facility] Social History Tobacco Use ??? Smoking status: Never Smoker ??? Smokeless tobacco: Never Used Substance Use Topics ??? Alcohol use: No Social History Substance and Sexual Activity Drug Use No Allergies Allergen Reactions ??? Latex Other reaction(s): Skin Rash ??? Erythromycin Lactobionate Other reaction(s): Nausea ??? Metformin Other reaction(s): Nausea ??? Pollen Extracts Other reaction(s): Rhinusitus ??? Trazodone Other reaction(s): Hallucination ??? Adhesive Other reaction(s): Skin Rash ??? Lisinopril Cough. Pt reported Other reaction(s): cough Medications: MAR and/or home medications have been reviewed. Physical Exam: Preprocedure Vitals Current as of 02/08/21 0918 BP: 162/91 Pulse: Resp: 18 SpO2: 97 Temp: 36.9 ??C (98.4 ??F) Height: 157.5 cm (5' 2) (02/07/21) Weight: 83 kg (183 lb) (02/07/21) BMI: 33.47 IBW: 50.1 kg (110 lb 7.8 oz) Last edited 02/08/21 0755 by CK Airway Assessment: Mallampati: I TM distance: >3 FB Neck ROM: full Cardiovascular Assessment: Rate: normal Pulmonary Assessment: unlabored breathing Dental Assessment: (+) edentulous Misc Assessment: IV access: Peripheral line Last Filed Perioperative Cognitive Screening None Anesthesia Plan: ASA 2 general, with a(n) intravenous induction 60 y/o woman with a PMH of HTN, DM2, GERD, recent ORIF left ankle now with infection for I&D. Proven airway/MV in the past. NPO. Plan for [place] Region - Other Informed Consent: Anesthetic plan and risks discussed with patient. Plan discussed with DIVERSIFIED CROPS FARMER, resident and attending. Anesthesia Screening documented in this encounter Plan of Treatment Not on file documented as of this encounter Visit Diagnoses Not on filedocumented in this encounter Administered Medications Inactive Administered Medications - up to 3 most recent administrations Medication Order MAR Action Action Date Dose Rate Site ceFAZolin (Ancef) 1 g in dextrose 5% 50 mL infusion Intravenous, PRN, Starting on 02/08/21 at 1013, Until 02/08/21 at 1045, Administer over 30 Minutes, Anesthesia Intra-op Given 02/08/2021 10:13 AM EDT 2 g fentaNYL (pf) (50 mcg/mL) multi-dose injection Intravenous, PRN, Starting on 02/08/21 at 0958, Until 02/08/21 at 1045, Anesthesia Intra-op, Routine Given 02/08/2021 10:17 AM EDT 50 mcg Given 02/08/2021 10:07 AM EDT 25 mcg Given 02/08/2021 9:58 AM EDT 25 mcg lactated ringers infusion Intravenous, CONTINUOUS PRN, Starting on 02/08/21 at 0951, Until 02/08/21 at 1045, Anesthesia Intra-op New Bag 02/08/2021 9:51 AM EDT lidocaine (pf) (Xylocaine) (20 mg/mL) 2% injection syringe Intravenous, PRN, Starting on 02/08/21 at 0958, Until 02/08/21 at 1045, Anesthesia Intra-op, Routine Given 02/08/2021 9:58 AM EDT 40 mg midazolam (pf) (Versed) (1 mg/mL) multi-dose injection Intravenous, PRN, Starting on 02/08/21 at 0958, Until 02/08/21 at 1045, Anesthesia Intra-op, Routine Given 02/08/2021 9:58 AM EDT 1 mg ondansetron (pf) (Zofran) (2 mg/mL) injection Intravenous, PRN, Starting on 02/08/21 at 1010, Until 02/08/21 at 1045, Anesthesia Intra-op, Routine Given 02/08/2021 10:10 AM EDT 8 mg PHENYLephrine in NS (PF) (JOHN-SYNEPHRINE) 0.8 mg/10 mL (80 mcg/mL) multi-dose injection Syrg Intravenous, PRN, Starting on 02/08/21 at 0958, Until 02/08/21 at 1045, Anesthesia Intra-op, Routine Given 02/08/2021 9:58 AM EDT 80 mcg propofoL (Diprivan) 10 mg/mL bolus injection (Anesthesia) Intravenous, PRN, Starting on 02/08/21 at 0958, Until 02/08/21 at 1045, Anesthesia Intra-op Given 02/08/2021 9:58 AM EDT 160 mg documented in this encounter Care Teams Contract Accountant Relationship Specialty Start Date End Date Maryuri Evans MD [address] [place] [address] PCP - General 09/23/14 documented as of this encounter
--- OUTSIDE RECORDS SUMMARY | 2024-05-31 17:48 | XMS_ITS | Encounter Summary ---
Author Organization [facility] Address [facility] [place] [address] Care Team Providers Care Tax Collection Coordinator Name Role Phone Maryuri Evans MD Primary Care Provider [phone] Encounter Details Date Type Department Care Team (Late st Contact Info) Description 02/09/2021 Notes Only [place] [id number] Sr Roddy Lopez Social History Tobacco Use Types Packs/Day Years Used Date Smoking Tobacco: Never Smokeless Tobacco: Never Alcohol Use Standard Drinks/Week Comments No 0 (1 standard drink = 0.6 oz pur e alcohol) Sex and Gender Information Value Date Recorded Sex Assigned at Not on file Gender Identity Not on file Sexual Orientation Not on file documented as of this encounter Progress Notes * Sr Roddy Lopez - 02/09/2021 11:59 PM EDT Images from the original note were not included. Study Title: Major Extremity Trauma Research Consortium (METRC): PREVENTion of Clot in Orthopaedic Trauma (PREVENT CLOT): A Randomized Pragmatic Trial Comparing theComplications and Safety of Blood Clot Prevention Medicines Used in Orthopaedic Trauma Patients Intermediate Project Manager: Sabrina Hinojosa Marilia Rosario number: [id number] Jesenia report post 48 hours of her injury to [facility], excluded. documented in this encounter Plan of Treatment Not on file documented as of this encounter Visit Diagnoses Not on filedocumented in this encounter Care Teams Tax Collection Coordinator Relationship Specialty Start Date End Date Maryuri Evans MD [address] [place] [address] PCP - General 09/23/14 documented as of this encounter
--- OUTSIDE RECORDS SUMMARY | 2024-05-31 17:49 | XMS_ITS | Encounter Summary ---
Author Organization [facility] Address [facility] [place] [address] Care Team Providers Care Cath Lab Manager Name Role Phone Maryuri Evans MD Primary Care Provider [phone] Encounter Details Date Type Department Care Team (Late st Contact Info) Description 01/16/2020 6:15 PM EDT Ancillary Procedure Radiology Library [place] [address] Christopher Correa MD [facility] [place] [address] Social History Tobacco Use Types Packs/Day Years [...] Procedure Name Priority Date/Time Associated Diagnosis Comments FILM LIBRARY STORAGE ONLY DX SHOULDER Routine 01/16/2020 6:11 PM EDT documented in this encounter Results * Film Library- Storage Only DX Shoulder (01/16/2020 6:11 PM EDT) Narrative FREDA - 01/16/2020 6:11 PM EDT This exam is auto-finalizing. It's purpose is for storage only. Christopher Correa MD IMG FILM LIBRARY ORD ERABLES [facility] [place], [place] documented in this encounter Visit Diagnoses Not on filedocumented in this encounter Care Teams Cath Lab Manager Relationship Specialty Start Date End Date Maryuri Evans MD [address] [place] [address] PCP - General 09/23/14 documented as of this encounter
--- OUTSIDE RECORDS SUMMARY | 2024-05-31 17:49 | XMS_ITS | Encounter Summary ---
Author Organization [facility] [place] [address] Care Team Providers Care Ship Rigger Name Role Phone Maryuri Evans MD Primary Care Provider [phone] Reason for Referral * Diagnostic Test (Routine) - Closed Specialty Diagnoses / Procedures Referred By Contac t Referred To Contact Radiology Diagnoses Closed displaced transverse fracture of shaft of right ulna, initial encounter Dislocation of elbow, unspecified laterality, sequela Pain in right elbow Procedures CT Elbow wo Contrast Right (Generic) Dorina Campbell APRN [facility] [place] [address] [facility] [place] [address] Referral ID Status Reason Start Date Expiration Date V isits Requested Visits Authorized [id number] Closed Specialty Service Requested 01/02/2021 07/05/2022 1 1 Reason for Visit * Diagnostic Test (Routine) - Closed Specialty Diagnoses / Procedures Referred By Contac t Referred To Contact Radiology Diagnoses Closed displaced transverse fracture of shaft of right ulna, initial encounter Dislocation of elbow, unspecified laterality, sequela Pain in right elbow Procedures CT Elbow wo Contrast Right (Generic) Dorina Campbell APRN [facility] [place] [address] [facility] [place] [address] Referral ID Status Reason Start Date Expiration Date V isits Requested Visits Authorized [id number] Closed Specialty Service Requested 01/02/2021 07/05/2022 1 1 Encounter Details Date Type Department Care Team (Latest Contact Info) Description 01/30/2021 9:37 AM EDT - 01/30/2021 11:59 PM EDT Hospital Encounter CT Scan at [facility] [place] [address] Dorina Campbell APRN [facility] [address] [place] [address] Closed displaced transverse fracture of shaft of right ulna, initial encounter; Dislocation of elbow, unspecified laterality, sequela; Pain in right elbow Discharge Disposition: Home Social History Tobacco Use [...] Sig Dispensed Refills Start Date End Date OneTouch Ultra Blue Test Strip Strip TEST [...] 09/01/2020 Elizabeth Pen Needle 32 gauge x /32 Needle USE 1 PEN NEEDLE ONCE DAILY [...] MOUTH TWICE A DAY 3 07/21/2017 acetaminophen (Tylenol) 500 mg Tablet Take 1,000 mg by mouth Every 6 hours as needed. 01/21/2021 aspirin EC 81 mg Tablet, Delayed Release (E.C.) Take by mouth. 02/05/2013 02/18/2021 buPROPion XL (Wellbutrin XL) 150 mg Tablet Extended Release 24 hr Take 150 mg by mouth every morning. 11/04/2022 pantoprazole (PROTONIX) 40 mg Tablet, Delayed Release (E.C.) Take 1 tablet by mouth daily. 3 02/09/2018 02/10/2022 sertraline (ZOLOFT) 100 mg Tablet Take 2 tablets by mouth daily. 3 02/09/2018 11/04/2022 zolpidem (AMBIEN) 10 mg Tablet as needed for Sleep. 03/12/2018 021 naproxen (NAPROSYN) 500 mg Tablet 2 times daily. 3 12/31/2017 02/18/2021 cyclobenzaprine (FLEXERIL) 5 mg Tablet TAKE ONE TABLET BY MOUTH EVERY 4 HOURS 3 05/18/2017 02/18/2021 LANTUS SOLOSTAR U-100 INSULIN pen Inject 25 Units subcutaneously nightly. 3 05/14/2017 02/19/20 losartan (COZAAR) 50 mg Tablet Take 25 mg by mouth every evening. 11/04/2022 insulin glargine (LANTUS) Solution Inject subcutaneously nightly. 02/08/2021 documented as of this encounter Plan of Treatment Not on file documented as of this encounter Procedures Procedure Name Priority Date/Time Associated Diagnosis Comments CT ELBOW WO CONTRAST RIGHT Routine 01/30/2021 10:45 AM EDT Closed displaced transverse fracture of shaft of right ulna, initial encounter Dislocation of elbow, unspecified laterality, sequela Pain in right elbow documented in this encounter Results * CT Elbow wo Contrast Right (Generic) (01/30/2021 10:45 AM EDT) Anatomical Region Laterality Modality Elbow Right Computed Tomogra phy Impressions 01/30/2021 1:27 PM EDT 1. Incomplete but progressive healing of the perihardware proximal right ulna diaphysis fracture. No change in alignment. 2. Right ulnohumeral arthrodesis without CT finding of hardware loosening or soft tissue inflammation. Thank you for letting us participate in the care of this patient. ??If you are a health care provider and have any questions regarding this report, please contact the number below. ??For patients who have questions please contact the health human services care specialist that requested your imaging first. ? Electronically signed by: An Vargas MD, [facility] ([phone]), at 01/30/2021 1:27 PM Narrative 01/30/2021 1:27 PM EDT EXAMINATION: CT ELBOW WO CONTRAST RIGHT (GENERIC) CLINICAL HISTORY: right proximal ulna fx with known arthrodesis casted for 6 weeks with moderate to severe pain ? healing ? loosening hardware or infection TECHNIQUE: Noncontrast CT of the right elbow is performed with helically acquired imaging using metal artifact reduction technique. Axial, coronal and sagittal reformats of both the humerus and forearm are evaluated at 0.6-1 mm slice thickness. On an independent workstation, 3-D surface and volume rendered reformats are generated. COMPARISON: Radiographs August 25, 2017 and January 02, 2021 FINDINGS: Hardware: Dorsal ulnohumeral arthrodesis plate and screws are intact without adjacent lucency or change in position. Ulna: Increased callous volume and maturity around the proximal diaphysis perihardware fracture is present with partial osseous bridging laterally. The fracture line visibility persists at the anteromedial fracture line. Less than one half shaft width anterior displacement is unchanged. Radius: Status post smoothly corticated resection of radial head. Humerus: Smoothly corticated remodeling with complete cortical and trabecular bridging to the ulna. No osseous bridging with proximal radius. Joints: No effusion. Soft tissues: Muscle bulk is preserved with approximately 50% fat atrophy of supinator muscle. No localized fluid collection. Normal course and morphology of noncontrast enhanced neurovascular structures. No epitrochlear adenopathy. Procedure Note An Vargas MD - 01/30/2021 EXAMINATION: CT ELBOW WO CONTRAST RIGHT (GENERIC) CLINICAL HISTORY: right proximal ulna fx with known arthrodesis casted for6 weeks with moderate to severe pain ? healing ? loosening hardware orinfection TECHNIQUE: Noncontrast CT of the right elbow is performed with helically acquiredimaging using metal artifact reduction technique. Axial, coronal and sagittalreformats of both the humerus and forearm are evaluated at 0.6-1 mm slice thickness.On an independent workstation, 3-D surface and volume rendered reformats are generated. COMPARISON: Radiographs August 25, 2017 and January 02, 2021 FINDINGS: Hardware: Dorsal ulnohumeral arthrodesis plate and screws are intactwithout adjacent lucency or change in position. Ulna: Increased callous volume and maturity around the proximaldiaphysis perihardware fracture is present with partial osseous bridging laterally.The fracture line visibility persists at the anteromedial fracture line. Lessthan one half shaft width anterior displacement is unchanged. Radius: Status post smoothly corticated resection of radial head. Humerus: Smoothly corticated remodeling with complete cortical andtrabecular bridging to the ulna. No osseous bridging with proximal radius. Joints: No effusion. Soft tissues: Muscle bulk is preserved with approximately 50% fat atrophyof supinator muscle. No localized fluid collection. Normal course andmorphology of noncontrast enhanced neurovascular structures. No epitrochlearadenopathy. IMPRESSION 1. Incomplete but progressive healing of the perihardware proximal rightulna diaphysis fracture. No change in alignment. 2. Right ulnohumeral arthrodesis without CT finding of hardware looseningor soft tissue inflammation. Thank you for letting us participate in the care of this patient. If youare a health care provider and have any questions regarding this report,please contact the number below. For patients who have questions please contactthe health human services care specialist that requested your imaging first. Electronically signed by: An Vargas MD, [facility]([phone]), at 01/30/2021 1:27 PM Dorina Campbell FILTER TANK OPERATOR IMG CT ORDERABLES documented in this encounter Visit Diagnoses Diagnosis Closed displaced transverse fracture of shaft of right ulna, initial encounter Dislocation of elbow, unspecified laterality, sequela Pain in right elbow Pain in joint, upper arm documented in this encounter Care Teams Ship Rigger Relationship Specialty Start Date End Date Maryuri Evans MD [address] [place] [address] PCP - General 09/23/14 documented as of this encounter
--- OUTSIDE RECORDS SUMMARY | 2024-05-31 17:49 | XMS_ITS | Encounter Summary ---
[place] [address] Care Team Providers Care Aerophysics Engineer Name Role Phone Maryuri Evans MD Primary Care Provider [phone] Reason for Visit * Reason Comments Follow-up Closed displaced tra nsverse fracture of shaft of right ulna Encounter Details Date Type Department Care Team (Late st Contact Info) Description 01/02/2021 10:30 AM EDT Office [place] [phone] Closed displaced transverse fracture of shaft of [...] encounter Progress Notes * Debi Cedeno - 01/02/2021 10:30 AM EDT Jesenia Méndez presents to the clinic for a cast off per Margaret Campbell APRN. The cast was intact upon arrival. The patient was explained how the cast saw works and the cast was removed. The patient tolerated this procedure well. The patient's skin was intact.The patient was then sent to x-ray. documented in this encounter Plan of Treatment Not on file documented as of this encounter Visit Diagnoses Diagnosis Closed displaced transverse fracture of shaft of right ulna with routine healing, subsequent encounter documented in this encounter Care Teams Aerophysics Engineer Relationship Specialty Start Date End Date Maryuri Evans MD [address] [place] [address] PCP - General 09/23/14 documented as of this encounter
--- OUTSIDE RECORDS SUMMARY | 2024-05-31 17:49 | XMS_ITS | Encounter Summary ---
Author Organization [facility] Address [facility] [place] [address] Care Team Providers Care Medical I D Sales Name Role Phone Maryuri Evans MD Primary Care Provider [phone] Reason for Visit * Auth/Cert Specialty Diagnoses / Procedures Referred By Contac t Referred To Contact Diagnoses dental caries Procedures PRO REMOVAL ERUPTED TOOTH WITH ELEVATION OF MUCOPERIOSTEAL FLAP PRO ALVEOLOPLASTY W EXTRACTIONS, 4 OR MORE TEETH, PER QUADRANT PRO ANESTH, PROCEDURE ON MOUTH SURGICAL EXTRACTIONS REQUIRING ELEVATION OF MUCOPERIOSTEAL FLAP AND REMOVAL OF BONE OR SECTION OF TOOTH (WRVU 1.09) ALVEOPLASTY,IN CONJUNCTION WITH EXTRACTIONS,PER QUADRANT,ENT (WRVU 4.06) Referral ID Status Reason Start Date Expiration Date Visits Re quested Visits Authorized [id number] 1 1 Encounter Details Date Type Department Care Team (Latest Contact Info) Description 09/11/2019 8:59 AM EST - 09/11/2019 1:39 PM [facility] Hospital Encounter [place] [id number] Wesley Jacobo MD [facility] [place] [address] Caries involving multiple surfaces of tooth Discharge Disposition: Home Social History Tobacco Use [...] Sign Reading Time Taken Comments Blood Pressure 118/40 09/11/2019 1:15 PM EST Pulse 88 09/11/2019 1:15 PM EST Temperature 36 ??C (96.8 ??F) 09/11/2019 12:35 PM EST Respiratory Rate 18 09/11/2019 1:00 PM EST Oxygen Saturation 93% 09/11/2019 1:15 PM EST Inhaled Oxygen Concentration - - Weight 78.9 kg (174 lb) 09/11/2019 10:00 AM EST Height - - Body Mass Index 32.88 09/05/2019 9:52 AM EST documented in this encounter Discharge Instructions * Discharge Instructions* Yumiko [place] RN - 09/11/2019 9:53 AM EST General Anesthesia Discharge Instructions Go home and rest. You may be sleepy for several hours. Take it easy as sudden position changes may cause nausea and/or dizziness. Use caution on stairs. Do not smoke if you are alone. Follow a light to regular diet as tolerated today. If nausea occurs, start with clear liquids, and progress slowly to a regular diet. Do not drive, operate machinery, drink alcoholic beverages or make any legal decisions after havinggeneral anesthesia. The medications given change your reaction time and alter your judgement. IV site -- slight redness is normal, you can use warm compresses. If tenderness and redness increases or foul drainage occurs, please contact your M.D. Patients who have had endotracheal tubes/LMA (tubes used by the anesthesia staff to ensure a safe airway during your operation) may have a sore throat. This is normal and cold liquids or soothing lozenges will help ease this discomfort. Narcotic pain medications can cause constipation, please ask the surgeons office what they recommend for prevention of this. Some non-pharmaceutical means of constipation prevention include increasing intake of fluids, eating more fruits and vegetables as well as fruit juices. If you are uncomfortable and/or unable to urinate within 8 hours of discharge and it is before 5 pm, call your physician. If it is after 5pm go to the closest emergency room or call the hospital grading machine operator at [phone] and ask for physician legal entity controller covering for your physician. Questions or problems after 5pm or on a weekend: Call the [facility] grading machine operator at and ask for the physician legal entity controller covering for your doctor. At 1000 am you received 1000 mg of acetaminophen- Your next dose should not be taken before 8 hourshave passed. Next dose not before- 1800 You should not take more than a total of 3000 mg of acetaminophen in a 24 hour period. * Patient Instructions* Wesley Jacobo MD - 09/11/2019 12:26 PM EST On the Day of Surgery: DO NOT rinse your mouth, smoke, or use a straw when drinking. Any of these could cause you to bleed more. You should remain at home, rest, and avoid alcoholic beverages. Discomfort: It is not uncommon for you to have some discomfort following a surgical procedure. Thisdiscomfort may last for three days or more. Pain relievers such as ibuprofen or Tylenol may be taken - 2 tablets every 3 to 4 hours as needed. If a narcotic is prescribed, take this only as needed. Narcotic drugs may cause nausea. DO NOT take them on an empty stomach, and DO NOT drive or consume alcohol while on narcotics. If prescribed Vicodin, usual dosage is 1- 2 tablets every 4-6 hours as needed for pain. Total daily dosage SHOULD NOT EXCEED 8 tablets. Other discomforts you may experience include: slight earache, sore throat, numbness or tingling in the lips or chin, aches in other teeth, and tightness of the jaw muscles. Bleeding: It is normal for the extraction site to bleed post-operatively. If bleeding continues, place gauze directly over the socket and bite down gently, but firmly, for 20 minutes. Repeat this process as needed. If bleeding is heavy, keep head elevated or sit upright, avoid exercise, hot liquids, smoking, and drinking from straws. If the bleeding does not stop with pressure, try a lukewarm, damp tea bag in place of the gauze foranother 20 minutes. The tea bag will help to form blood clots and stop the bleeding. If bleeding continues, call your doctor. Swelling: To reduce immediate swelling after your procedure, apply an ice pack, with pressure, to the face over the area of the procedure. Ice should be applied for 15-20 minutes at a time, for the first 24 hours. After 24 hours, a moist warm compress may be helpful. Most swelling will occur [id number] hours following the procedure. Mouth Rinse: Vigorous mouth washing may cause bleeding to begin again if clots are not formed. DO NOT RINSE on the day of surgery. Begin rinsing one day after the procedure very gently with warm saltwater (1/2 teaspoon per 8 oz. warm water). Continue rinsing 3-6 times a day for several days. This will keep surgical sites clean and will help with healing. Diet: It is best to eat light, soft foods, and drink plenty of liquids following a surgical procedure. Foods like, yogurt, pasta, eggs, soups, and ice cream are good choices. Avoid hot liquids for 24hours after tooth extraction. Avoid foods that are difficult to chew. Once chewing becomes easier, you may return to your normal diet. In General: If stitches are used, they will dissolve or unravel in about three days to one week. Avoid strenuous exercise, such as jogging and contact sports for at least one week following surgery. Swelling is usually most extensive 24- 48 hours following surgery, and usually takes 4-5 days to subside. Sockets can take 4-6 weeks to heal, and often heal from the inside out. It may take 10-14 days before you feel like your normal self again. Dr. Jacobo can be reached at [phone] between the hours of 5PM-10PM and on weekends. During business hours 8am-5pm M-F please call our office at [phone]. documented in this encounter Medications at Time of Discharge Medication Sig Dispensed Refills Start Date End Date folic acid (Folvite) 1 mg Tablet Take by mouth. 08/31/2017 multivitamin (THERAGRAN) Tablet Take 1 tablet by mouth daily. calcium carbonate (CALCIUM 500 ORAL) Take by mouth. levothyroxine (SYNTHROID) 50 mcg Tablet Take 50 mcg by mouth nightly. 2017 glipiZIDE (GLUCOTROL XL) 10 mg Tablet Extended Rel 24 hr TAKE TWO TABLETS BY MOUTH EVERY DAY 3 07/21/2017 topiramate (TOPAMAX) 100 mg Tablet TAKE ONE TABLET BY MOUTH TWICE A DAY 3 07/21/2017 multivitamin Capsule Take by mouth. 12/10/201511/21 aspirin EC 81 mg Tablet, Delayed Release (E.C.) Take by mouth. 02/05/2013 02/18/2021 chlorhexidine (Peridex) 0.12 % Mouthwash Take 15 mLs by mouth 2 times daily for 7 days. 210 mL 09/11/2019 09/18/2019 HYDROcodone-acetamin ophen ([place]) 5-325 mg Tablet Take 1 tablet by mouth every 6 hours as needed. 20 tablet 09/11/2019 01/02/2021 pantoprazole (PROTONIX) 40 mg Tablet, Delayed Release (E.C.) Take 1 tablet by mouth daily. 3 02/09/2018 02/10/2022 sertraline (ZOLOFT) 100 mg Tablet Take 2 tablets by mouth daily. 3 02/09/2018 11/04/2022 zolpidem (AMBIEN) 10 mg Tablet as needed for Sleep. 03/12/2018 021 naproxen (NAPROSYN) 500 mg Tablet 2 times daily. 3 12/31/2017 02/18/2021 hydrOXYzine (VISTARIL) 25 mg Capsule TAKE TWO CAPSULES BY MOUTH TWICE A DAY 5 10/06/2017 03/06/2020 cyclobenzaprine (FLEXERIL) 5 mg Tablet TAKE ONE TABLET BY MOUTH EVERY 4 HOURS 3 05/18/2017 02/18/2021 LANTUS SOLOSTAR U-100 INSULIN pen Inject 25 Units subcutaneously nightly. 3 05/14/2017 02/19/20 losartan (COZAAR) 50 mg Tablet Take 25 mg by mouth every evening. 11/04/2022 insulin glargine (LANTUS) Solution Inject subcutaneously nightly. 02/08/2021 documented as of this encounter Progress Notes * Floridalma Dotson RN - 09/11/2019 1:40 PM EST Discharge instructions and medications reviewed with patient and father,Wilmar. All questions answeredand written copy sent home with patient. Prescriptions given to father. documented in this encounter H&P Notes * Wesley Jacobo MD - 09/11/2019 10:56 AM EST The patient's history and physical exam have been reviewed and completed. There has been no interval change from that of the pre-operative history and physical exam done within the last 30 days. No change in oral exam. Plan is to remove all teeth Dparq/consent. Wesley Jacobo MD, DMD documented in this encounter Miscellaneous Notes * Op Note - Wesley Jacobo MD - 09/11/2019 12:20 PM EST [facility] [place] Patient Name: Jesenia Méndez : [id number] MR#: [id number] Case Date: 09/11/2019 Surgeon: Surgeon(s) and Role: * Wesley Jacobo MD - Primary Preoperative diagnosis: dental caries Postoperative diagnosis: dental caries Procedure(s) (LRB): SURGICAL EXTRACTIONS REQUIRING ELEVATION OF MUCOPERIOSTEAL FLAP AND REMOVAL OF BONE OR SECTION OF TOOTH (WRVU 1.09) (Bilateral) 2, 4, 5, 6, 7, 8, 9, 10, 11, 12, 13, 18, 19, 21, 22, 23, 24, 25, 26, 27, 28, 29, 31 ALVEOPLASTY,IN CONJUNCTION WITH EXTRACTIONS,PER QUADRANT,ENT (WRVU 4.06) (N/A) x4: Upper right, upper left, lower left, lower right Bilateral mandibular naresh removal Anesthesia: General Findings: generalized caries Complications: none Intake: Intraprocedure Crystalloid Total None Transfusion No data found in the last 1 encounters. Output: Estimated Blood Loss: * No values recorded between 09/11/2019 11:29 AM and 09/11/2019 12:13 PM * Urine Output:: (no urine output recorded) Other Output: (no other output recorded) See anesthesia record for full details Drains: none Specimens removed during surgery: * No orders in the log * Teeth identified and discarded Drains: * No LDAs found * Surgical [...] details pertinent to this patient.) HPI/Surgical Indications: See previous preop History and Physical for full details. Procedure Description: The patient was brought to the operating room and placed under general anesthesia via nasoendotracheal tube. The Patient was prepped and draped in the standard fashion for oraland maxillofacial surgery. The oral cavity was suctioned and an oral pharyngeal pack was placed. approx 10cc of 1% Xylocaine with 1-200,000 epinephrine was used to infiltrate the surgical sites. SURGICAL EXTRACTION of teeth #2, 4, 5, 6, 7, 8, 9, 10, 11, 12, 13, 18, 19, 21, 22, 23, 24, 25, 26, 27, 28, 29, 31were performed. It required incision of surrounding gingiva and reflection of a mucoperiosteum flap together with removal of bone (all teeth) and sectioning of multiple teeth (2,12,13,18,19,31) to facilitate their removal. Gel foam and suture used on all sites. Alveolplasty was performed before closure using a combination of ronjuer and bone file in the upperleft, upper right, lower right, and lower left quadrants taking away undercuts. The area was smoothto finger palpation. Of note, also bilateral mandibular naresh were removed using an egg alban and bone file. There was no evidence of injury to adjacent teeth, nerves, sinuses, or fracture. A bite block was used to minimize pressure on the TMJoint. No evidence of injury to the sinuses exposure, inferior alveolar nerve or jaw fracture was noted. The oral cavity was then carefully suctioned and the oral pharyngeal pack was removed. The patient was awakened, extubated and brought to the recovery room in satisfactory condition having tolerated the procedure well with a minimum of blood loss. Multiple 3-0 chromic sutures were used and gel foam for primary closure. All needle counts and sponge counts were correct. Disposition: Patient will go home pending meeting discharge criteria. Infection Bundle used? N/A Attestation: Case Date: 09/11/2019 I performed this procedure without the involvement of a resident. Wesley Jacoob MD 09/11/2019 * Brief Op Note - Wesley Jacobo MD - 09/11/2019 12:15 PM EST Brief Operative Note Patient Name: Jesenia Méndez : [id number] MR#: [id number] Case Date: 09/11/2019 Surgeon: Surgeon(s) and Role: * Wesley Jacobo MD - Primary Preoperative diagnosis: dental caries Postoperative diagnosis: dental caries Procedure(s) (LRB): SURGICAL EXTRACTIONS REQUIRING ELEVATION OF MUCOPERIOSTEAL FLAP AND REMOVAL OF BONE OR SECTION OF TOOTH (WRVU 1.09) (Bilateral) 2, 4, 5, 6, 7, 8, 9, 10, 11, 12, 13, 18, 19, 21, 22, 23, 24, 25, 26, 27, 28, 29, 31 ALVEOPLASTY,IN CONJUNCTION WITH EXTRACTIONS,PER QUADRANT,ENT (WRVU 4.06) (N/A) x4: Upper right, upper left, lower left, lower right Bilateral mandibular naresh removal Anesthesia: General Findings: generalized caries Complications: none Intake: Intraprocedure Crystalloid Total None Transfusion No data found in the last 1 encounters. Output: Estimated Blood Loss: * No values recorded between 09/11/2019 11:29 AM and 09/11/2019 12:13 PM * Urine Output:: (no urine output recorded) Other Output: (no other output recorded) See anesthesia record for full details Drains: none Specimens removed during surgery: * No orders in the log * Teeth identified and discarded Disposition: awakened from anesthesia, extubated and taken to the recovery room in a stable condition, having suffered no apparent untoward event. Condition: doing well without problems Attestation: Case Date: 09/11/2019 I performed this procedure without the involvement of a resident. (Please see the Surgical Encounter Summary for any Implant and Specimen details pertinent to this patient.) documented in this encounter Plan of Treatment Not on file documented as of this encounter Procedures Procedure Name Priority Date/Time Associated Diagnosis Comments ALVEOPLASTY,IN CONJUNCTION WITH EXTRACTIONS,PER QUADRANT,ENT (WRVU 3.19) Yes 09/11/2019 11:14 AM EST Caries involving multiple surfaces of tooth SURGICAL EXTRACTIONS REQUIRING ELEVATION OF MUCOPERIOSTEAL FLAP AND REMOVAL OF BONE OR SECTION OF TOOTH (WRVU 1.09) Yes 09/11/2019 11:14 AM EST Caries involving multiple surfaces of tooth ALVEOPLASTY,IN CONJUNCTION WITH EXTRACTIONS,PER QUADRANT,ENT Routine 09/11/2019 9:50 AM EST Caries involving multiple surfaces of tooth POCT FINGERSTICK GLUCOSE Routine 09/11/2019 documented in this encounter Results * POCT Fingerstick Glucose (09/11/2019) Glucose, POC 146 60 - 199 mg/dl 09/11/2019 Wesley Jacobo MD POINT OF CARE TEST O RDERABLES documented in this encounter Visit Diagnoses Diagnosis Caries involving multiple surfaces of tooth Other dental caries documented in this encounter Administered Medications Inactive Administered Medications - up to 3 most recent administrations Medication Order MAR Action Action Date Dose Rate Site acetaminophen (Tylenol) tablet 1,000 mg 1,000 mg, Oral, ONCE, 1 dose, On 09/11/19 at 1015, Administer with SIP of H2O only., Day of Surgery (Day of Procedure), Routine Given 09/11/2019 10:15 AM EST 1,000 mg lactated ringers infusion 1,000 mL, at 100 mL/hr, Intravenous, CONTINUOUS, Starting on 09/11/19 at 1015, Until Tu09/11/19 at 1342, Day of Surgery (Day of Procedure) New Bag 09/11/2019 10:20 AM EST 1,000 mLs 100 mL/hr documented in this encounter Active and Recently Administered Medications Times are shown in EST. Scheduled Medication Order 09/09/2019 09/10/2019 09/11/2019 acetaminophen (Tylenol) tablet 1,000 mg (COMPLETED) 1,000 mg, Oral, ONCE, 1 dose, On 09/11/19 at 1015, Administer with SIP of H2O only., Day of Surgery (Day of Procedure), Routine 1015 (Given - Provid er: Yumiko [place] RN) cefTRIAXone (ROCEPHIN) 2 g vial attach to sodium chloride 0.9% 50 mL Mini-Bag Plus (COMPLETED) 2 g, Intravenous, EGGS INSPECTOR TO O.R., 1 dose, On Tue09/11/19 at 1115, Administer over 15 Minutes, Attach to 50 mL sodium chloride 0.9% Mini-Bag Plus , Indication for (Active or Suspected): Prophylaxis 1125 (New Bag - Prov ider: Antonio Funk CRNA) oxyCODONE (Roxicodone) tablet 5 mg 5 mg, Oral, ONCE, 1 dose, On Tue09/11/19 at 1330, Routine 1330 (Due) Continuous Medication Order 09/09/2019 09/10/2019 09/11/2019 lactated ringers infusion (CANCELED) 1,000 mL, at 100 mL/hr, Intravenous, CONTINUOUS, Starting on Tue09/11/19 at 1015, Until Tue09/11/19 at 1342, Day of Surgery (Day of Procedure) 1020 (New Bag - Prov ider: Yumiko Mongtomery RN)1216 (Anesthesia Volume Adjustment - Provider: Antonio Funk CRNA) PRN Medication Order 09/09/2019 09/10/2019 09/11/2019 lidocaine-EPINEPHrine 1 %-1:100,000 injection (CANCELED) ONCE PRN, Starting on Tue09/11/19 at 1129, Until Tue09/11/19 at 1543, Intra-Operative (Intra-Procedure), Routine 1129 (Given - Provid er: Wesley Jacobo MD)1210 (Given - Provider: Wesley Jacobo MD) documented in this encounter Care Teams Medical I D Sales Relationship Specialty Start Date End Date Maryuri Evans MD [address] [place] [address] PCP - General 09/23/14 documented as of this encounter
--- OUTSIDE RECORDS SUMMARY | 2024-05-31 17:49 | XMS_ITS | Encounter Summary ---
Author Organization [facility] Address [facility] [place] [address] Care Team Providers Care Gyroscopic Instrument Mechanic Name Role Phone Maryuri Evans MD Primary Care Provider [phone] Encounter Details Date Type Department Care Team (Latest Contact Info) Description 12/28/2017 9:03 AM EDT - 12/28/2017 11:59 PM EDT Hospital Encounter XRay at [address] [place] [address] Christopher Correa MD [facility] [place] [address] Dislocation of elbow, unspecified laterality, subsequent encounter Discharge Disposition: Home Social History [...] 1 mg Tablet Take by mouth. 08/31/2017 levothyroxine (SYNTHROID) 50 mcg Tablet Take 50 [...] Release (E.C.) Take by mouth. 02/05/2013 02/18/2021 acetaminophen 500 mg Capsule Take 1,000 mg by mouth 3 times daily as needed (For post-operative pain) for up to 30 days. 2017 01/13/2018 aspirin (ENTERIC COATED ASPIRIN) 81 mg Tablet, Delayed Release (E.C.) Take 1 tablet by mouth 2 times daily for 30 days. 60 tablet 2017 01/13/2018 pantoprazole (PROTONIX) 20 mg Tablet, Delayed Release (E.C.) Take 20 mg by mouth daily. 03/16/2018 hydrOXYzine (VISTARIL) 25 mg Capsule TAKE TWO [...] XR ELBOW 3 VIEWS RIGHT (GENERIC) Routine 12/28/2017 9:13 AM EDT Dislocation of elbow, unspecified laterality, subsequent encounter documented in this encounter Results * XR Elbow 3 views Complete Right (Generic) (12/28/2017 9:13 AM EDT) Anatomical Region Laterality Modality Elbow Right Digital Radiogra phy Impressions 12/28/2017 11:08 AM EDT Ongoing healing of an elbow arthrodesis site. Narrative 12/28/2017 11:08 AM EDT EXAMINATION: XR ELBOW 3 VIEWS COMPLETE RIGHT (GENERIC) CLINICAL HISTORY: assess healing TECHNIQUE: AP, oblique, and lateral views of the right elbow COMPARISON: Right elbow radiographs 2017 FINDINGS: Postoperative changes status post arthrodesis of the elbow with a plate and screw construct traversing the humerus and ulna. Hardware is intact. There may be a small effusion. Chronic deformity of the proximal radius is again noted. There has been progressive osseous fusion across a arthrodesis site, though along the ulnar side of the elbow joint, there remains some lucencies at the arthrodesis site. Procedure Note Mazin Jeff MD - 12/28/2017 EXAMINATION: XR ELBOW 3 VIEWS COMPLETE RIGHT (GENERIC) CLINICAL HISTORY: assess healing TECHNIQUE: AP, oblique, and lateral views of the right elbow COMPARISON: Right elbow radiographs 2017 FINDINGS: Postoperative changes status post arthrodesis of the elbow with a plateand screw construct traversing the humerus and ulna. Hardware is intact. Theremay be a small effusion. Chronic deformity of the proximal radius is againnoted. There has been progressive osseous fusion across a arthrodesis site,though along the ulnar side of the elbow joint, there remains some lucencies atthe arthrodesis site. IMPRESSION Ongoing healing of an elbow arthrodesis site. Christopher Correa MD IMG DX ORDERABLES documented in this encounter Visit Diagnoses Diagnosis Dislocation of elbow, unspecified laterality, subsequent encounter documented in this encounter Care Teams Gyroscopic Instrument Mechanic Relationship Specialty Start Date End Date Maryuri Evans MD [address] [place] [address] PCP - General 09/23/14 documented as of this encounter
--- OUTSIDE RECORDS SUMMARY | 2024-05-31 17:49 | XMS_ITS | Encounter Summary ---
Author Organization [facility] Address [facility] [place] [address] Care Team Providers Care Rn House Supervisor Name Role Phone Maryuri Evans MD Primary Care Provider [phone] Reason for Visit * Reason Comments Follow Up Fracture Closed displaced tra nsverse fracture of shaft of right ulna * Auth/Cert Specialty Diagnoses / Procedures Referred By Contac t Referred To Contact Diagnoses Abscess of ankle Ankle abscess Procedures Emergency IPI Referral ID Status Reason Start Date Expiration Date Visits Re quested Visits Authorized [id number] 1 1 Encounter Details Date Type Department Care Team (Late st Contact Info) Description 02/06/2021 1:00 PM EDT [place] [address] Closed displaced transverse fracture of shaft of [...] as of this encounter Progress Notes * JosTomasa Patricio - 02/06/2021 1:00 PM EDT Jesenia Méndez presents to the clinic for a cast off per Dorina Campbell APRN. The cast was intactupon arrival. The patient was explained how the cast saw works and the cast was removed. The patient tolerated this procedure well. The patient's skin was intact. The patient was then sent to x-ray. Jesenia Méndez presents to the cast room for cast application per Dorina Campbell APRN. The patient's skin is intact. The patient is placed in a well padded fiberglass long arm cast on the right side. The patient tolerated the procedure well. Details on icing, elevation and proper cast care was discussed with the patient. A cast bag was provided to the patient. The patient was given instruction to call the clinic with any questions or concerns. documented in this encounter Plan of Treatment Not on file documented as of this encounter Visit Diagnoses Diagnosis Closed displaced transverse fracture of shaft of right ulna with routine healing, subsequent encounter documented in this encounter Care Teams Rn House Supervisor Relationship Specialty Start Date End Date Maryuri Evans MD [address] [place] [address] PCP - General 09/23/14 documented as of this encounter
--- OUTSIDE RECORDS SUMMARY | 2024-05-31 17:49 | XMS_ITS | Encounter Summary ---
Author Organization [facility] Address [facility] [place] [address] Care Team Providers Care Bender Hand Name Role Phone Maryuri Evans MD Primary Care Provider [phone] Reason for Visit * Reason Onset Date Comments Appointment 02/02/2021 Encounter Details Date Type Department Care Team (Late st Contact Info) Description 02/02/2021 [place] [id number] Dorina Campbell ORDERING MACHINE OPERATOR [facility] [place] [address] Appointment Social History Tobacco Use Types Packs/Day [...] encounter Miscellaneous Notes * Telephone Encounter - Dorina Campbell APRN - 02/02/2021 1:57 PM EDT Called with CT scan results and Dr. Correa's recommendations. He recommends another 6 weeks of casting f/u imaging and consideration of bone stimulator. The cast is pretty worn out. I recommend coming in for Cast change and x-rays. I have already ordered this as a future order in the computer. The new cast should be on for another 6 weeks. She was appreciative of the call. Pt agrees, questions solicited/answered, will return as scheduledand as needed for concerns or questions. Pt understands they may also call us prn for above. * Telephone Encounter - Sarai Campbell - 02/02/2021 1:57 PM EDT LM#1 for PT to schedule 2 separate Appointments 1. Cast Off XR Cast on 6 weeks after cast change schedule as follows 2. Cast Off XR continued Right elbow pain hx arthrodesis DOS: 12/14/17 documented in this encounter Plan of Treatment Not on file documented as of this encounter Results * XR Elbow 3 Views Right (GENERIC) (02/06/2021 11:22 AM EDT) Anatomical Region Laterality Modality Elbow Right Digital Radiogra phy Impressions 02/06/2021 11:51 AM EDT Continued healing of the proximal ulnar perihardware fracture. Thank you for letting us participate in the care of this patient. ??If you are a health care provider and have any questions regarding this report, please contact the number below. ??For patients who have questions please contact the health zoo caretaker that requested your imaging first. ? Narrative 02/06/2021 11:51 AM EDT EXAMINATION: XR ELBOW 3 VIEWS RIGHT (GENERIC) CLINICAL HISTORY: RIGHT ELBOW ARTHRODESIS WITH FRACTURE WITH DELAYED UNION ? HEALING compare to previous x-ray and CT imaging, CAST OFF FOR XRAY TECHNIQUE: 3 views RIGHT elbow COMPARISON: CT 01/30/2021, radiograph 01/02/2021 FINDINGS: Patient is status post total elbow effusion. Hardware is unchanged in alignment without evidence of new fracture. A mildly displaced fracture of the proximal ulna is again seen at the distal aspect of the hardware with increased callus formation consistent with ongoing healing. No new fracture. Procedure Note Blaze Kaur MD - 02/06/2021 EXAMINATION: XR ELBOW 3 VIEWS RIGHT (GENERIC) CLINICAL HISTORY: RIGHT ELBOW ARTHRODESIS WITH FRACTURE WITH DELAYED UNION? HEALING compare to previous x-ray and CT imaging, CAST OFF FOR XRAY TECHNIQUE: 3 views RIGHT elbow COMPARISON: CT 01/30/2021, radiograph 01/02/2021 FINDINGS: Patient is status post total elbow effusion. Hardware is unchanged inalignment without evidence of new fracture. A mildly displaced fracture of theproximal ulna is again seen at the distal aspect of the hardware with increasedcallus formation consistent with ongoing healing. No new fracture. IMPRESSION Continued healing of the proximal ulnar perihardware fracture. Thank you for letting us participate in the care of this patient. If youare a health care provider and have any questions regarding this report,please contact the number below. For patients who have questions please contactthe health zoo caretaker that requested your imaging first. Electronically signed by: BLAZE KAUR MD, [facility]([phone]), at 02/06/2021 11:51 AM Dorina Campbell APRN IMG DX ORDERABLES documented in this encounter Visit Diagnoses Diagnosis Closed displaced transverse fracture of shaft of right ulna with routine healing, subsequent encounter Closed displaced transverse fracture of shaft of right ulna with routine healing, subsequent encounter documented in this encounter Care Teams Bender Hand Relationship Specialty Start Date End Date Maryuri Evans MD [address] [place] [address] PCP - General 09/23/14 documented as of this encounter
--- OUTSIDE RECORDS SUMMARY | 2024-05-31 17:49 | XMS_ITS | Encounter Summary ---
Author Organization [facility] Address [facility] [place] [address] Care Team Providers Care Event Mgr Name Role Phone Maryuri Evans MD Primary Care Provider [phone] Reason for Visit * Auth/Cert Specialty Diagnoses [...] Expiration Date Visits Re quested Visits Authorized [id number] 1 1 Encounter Details Date Type Department Care Team (Late st Contact Info) Description 09/11/2019 10:50 AM EST - 09/11/2019 12:05 PM EST Surgery [place] [id number] Wesley Jacobo MD [facility] [place] [address] SURGICAL EXTRACTIONS REQUIRING ELEVATION OF MUCOPERIOSTEAL FLAP AND REMOVAL OF BONE OR SECTION OF TOOTH (WRVU 1.09) Social History Tobacco Use Types Packs/Day Years [...] Sign Reading Time Taken Comments Blood Pressure 140/58 09/11/2019 10:00 AM EST Pulse 78 09/11/2019 10:00 AM EST Temperature 36.5 ??C (97.7 ??F) 09/11/2019 10:[address] Respiratory Rate 14 09/11/2019 10:00 AM EST Oxygen Saturation 98% 09/11/2019 10:00 AM EST Inhaled Oxygen Concentration - - Weight [...] closest emergency room or call the hospital stereo operator at [phone] and ask for physician automotive internet sales consultant covering for your physician. Questions or problems after 5pm or on a weekend: Call the [facility] stereo operator at and ask for the physician automotive internet sales consultant covering for your doctor. At 1000 am [...] may be helpful. Most swelling will occur [id number] hours following the procedure. Mouth Rinse: Vigorous [...] again. Dr. Jacobo can be reached at [phone] between the hours of 5PM-10PM and on weekends. During business hours 8am-5pm M-F please call our office at [phone]. documented in this encounter Medications at Time [...] days. 210 mL 09/11/2019 09/18/2019 HYDROcodone-acetamin ophen ([place]) 5-325 mg Tablet Take 1 tablet by [...] Jacobo MD - 09/11/2019 12:20 PM EST [facility] Operative Note Patient Name: Jesenia Méndez : [id number] MR#: [id number] Case Date: 09/11/2019 Surgeon: Surgeon(s) and Role: [...] without the involvement of a resident. Wesley Jacobo MD 09/11/2019 * Brief Op Note - Wesley Jacobo MD - 09/11/2019 12:15 PM EST Brief Operative Note Patient Name: Jesenia Méndez : [id number] MR#: [id number] Case Date: 09/11/2019 Surgeon: Surgeon(s) and Role: [...] multiple surfaces of tooth Other dental caries Caries involving multiple surfaces of tooth Other dental caries documented in this encounter Administered Medications Inactive Administered Medications - up to 3 most recent administrations Medication Order MAR Action Action Date Dose Rate Site acetaminophen (Tylenol) tablet 1,000 mg 1,000 mg, Oral, ONCE, 1 dose, On Tue09/11/19 at 1015, Administer with SIP of H2O only., Day of Surgery (Day of Procedure), Routine Given 09/11/2019 10:15 AM EST 1,000 mg lactated ringers infusion 1,000 mL, at 100 mL/hr, Intravenous, CONTINUOUS, Starting on Tue09/11/19 at 1015, Until Tue09/11/19 at 1342, Day of Surgery (Day of Procedure) New Bag 09/11/2019 10:20 AM EST 1,000 mLs 100 mL/hr lidocaine-EPINEPHrin e 1 %-1:100,000 injection ONCE PRN, Starting on Tue09/11/19 at 1129, Until Tue09/11/19 at 1543, Intra-Operative (Intra-Procedure), Routine Given 09/11/2019 12:10 PM EST 5 mLs 19- Surgical Site Given 09/11/2019 11:29 AM EST 9 mLs 1 9- Surgical Site documented in this encounter Active and Recently Administered Medications Times are shown in EST. Scheduled Medication Order 09/09/2019 09/10/2019 09/11/2019 acetaminophen (Tylenol) tablet 1,000 mg (COMPLETED) 1,000 mg, Oral, ONCE, 1 dose, On Tue09/11/19 at 1015, Administer with SIP of H2O only., Day of Surgery (Day of Procedure), Routine 1015 (Given - Provid er: Yumiko Montgomery RN) cefTRIAXone (ROCEPHIN) 2 g vial attach to sodium chloride 0.9% 50 mL Mini-Bag Plus (COMPLETED) 2 g, Intravenous, FIELD CROPS HARVEST MACHINE OPERATOR TO O.R., 1 dose, On Tue09/11/19 at [...] 1020 (New Bag - Prov ider: Yumiko Montgomery RN)1216 (Anesthesia Volume Adjustment - Provider: Antonio Funk CRNA) PRN Medication Order 09/09/2019 09/10/2019 09/11/2019 lidocaine-EPINEPHrine 1 %-1:100,000 injection (CANCELED) ONCE PRN, Starting on Tue09/11/19 at 1129, Until Tue09/11/19 at 1543, Intra-Operative (Intra-Procedure), Routine 1129 (Given - Provid er: Wesley Jacobo MD)1210 (Given - Provider: Wesley Jacobo MD) documented in this encounter Care Teams Event Mgr Relationship Specialty Start Date End Date Maryuri Evans MD [address] [place] [address] PCP - General 09/23/14 documented as of this encounter
--- OUTSIDE RECORDS SUMMARY | 2024-05-31 17:49 | XMS_ITS | Encounter Summary ---
[place] [address] Care Team Providers Care Bar Host/Hostess Name Role Phone Maryuri Evans MD Primary Care Provider [phone] Reason for Referral * Diagnostic Test (Routine) - Closed Specialty Diagnoses / Procedures Referred By Contac t Referred To Contact Radiology Diagnoses Closed displaced transverse fracture of shaft of right ulna, initial encounter Dislocation of elbow, unspecified laterality, sequela Pain in right elbow Procedures CT Elbow wo Contrast Right (Generic) Dorina Campbell APRN [facility] [place] [address] [facility] [place] [address] Referral ID Status Reason Start Date Expiration Date V isits Requested Visits Authorized [id number] Closed Specialty Service Requested 01/02/2021 07/05/2022 1 1 Reason for Visit * Reason Comments Follow-up Closed displaced tra ns. fracture of radius/ ulna Encounter Details Date Type Department Care Team (Late st Contact Info) Description 01/02/2021 11:40 AM EDT Office [place] [id number] Dorina Campbell APRN [facility] [place] [address] Closed displaced transverse fracture of shaft of right ulna, initial encounter (Primary Dx); Dislocation of elbow, unspecified laterality, sequela; Pain in right elbow Social History Tobacco Use Types Packs/Day Years [...] Sign Reading Time Taken Comments Blood Pressure 127/72 01/02/2021 11:29 AM EDT Pulse - - Temperature - - Respiratory Rate - - Oxygen Saturation - - Inhaled Oxygen Concentration - - Weight - - Height - - Body Mass Index - - documented in this encounter Progress Notes * Dorina Campbell, SCOOPER - 01/02/2021 11:40 AM EDT Chief complaint: Right ulna Fx with known previous arthrodesis Problem List Items Addressed This Visit S/P R elbow fusion on 12/14/17 Madeline Relevant Orders Other Visit Diagnoses Closed displaced transverse fracture of shaft of right ulna, - Primary Relevant Orders XR Elbow 3 Views Right (GENERIC) (Completed) CT Elbow wo Contrast Right (Generic) CBC (with Diff) CRP, acute inflammation Sedimentation rate Pain in right elbow Relevant Orders History of present illness: Jesenia Méndez is a 60 y.o. year-old female + diabetic, non-smoker who is here in follow up. See Dr. Correa's detailed consult note for this problem that will not be repeated here. Essentially, She was casted in a long arm fiberglass cast for a proximal ulna Fx with f/u today to reassess for healing/check pain level. She continue with moderate to severe pain despite casting for 6 weeks. No fevers or chills. No systemic or constitutional complaints. No incisional complaints. No new falls or injuries. No other health related issues to report. Past medical history: Patient Active Problem List Diagnosis Code ??? Psoriasis L40.9 ??? S/P R elbow fusion on 12/14/17 Madeline S53.106A ??? Chronic pain in left shoulder M25.512, G89.29 ??? H/O insulin dependent diabetes mellitus Z86.39 ??? H/O: depression Z86.59 ??? Hypothyroidism E03.9 ??? h/o chronic headaches R51.9, G89.29 ??? Closed fracture of shaft of right ulna with known elbow arthrodesis RIGHT S52.201A Medications: ??? OneTouch Ultra Blue Test Strip Strip ??? OneTouch Ultra2 Meter Misc ??? OneTouch Delica Plus Lancet 30 gauge Misc ??? Victoza 2-Terrance 0.6 mg/0.1 mL (18 mg/3 mL) Pen Injector ??? aspirin EC 81 mg Tablet, Delayed Release (E.C.) ??? folic acid (Folvite) 1 mg Tablet ??? gabapentin (Neurontin) 300 mg Capsule ??? hydrOXYzine (VISTARIL) 50 mg Capsule ??? [...] mg Tablet ??? insulin glargine (LANTUS) Solution ??? Elizabeth Pen Needle 32 gauge x 5/32 Needle ??? zolpidem (AMBIEN) 10 mg Tablet Allergies: Allergies Allergen Reactions ??? Latex Other reaction(s): Skin Rash ??? Erythromycin Lactobionate Other reaction(s): Nausea ??? Metformin Other reaction(s): Nausea ??? Pollen Extracts Other reaction(s): Rhinusitus ??? Trazodone Other reaction(s): Hallucination ??? Adhesive Other reaction(s): Skin Rash ??? Lisinopril Cough. Pt reported Other reaction(s): cough Social history: Social History Tobacco Use ??? Smoking status: Never Smoker ??? Smokeless tobacco: Never Used Substance Use Topics ??? Alcohol use: No Review of systems: No chest pain or shortness of breath No fevers, night sweats or chills Questionnaire Responses: myD-H Hip & Knee 01/02/2021 PROMIS-10 General Health Good PROMIS-10 Quality of Life Good PROMIS-10 Physical Health Good PROMIS-10 Mental Health Good PROMIS-10 Social Activity and Relationship Satisfaction Good PROMIS-10 Social Roles at Home and Work Fair PROMIS-10 Everyday Physical Activities Moderately PROMIS-10 Anxious or Depressed last 7 days Always PROMIS-10 Fatigue last 7 days Mild PROMIS-10 Pain last 7 days 8 PROMIS PHYSICAL HEALTH SCORE (range 16-68) 39.8 PROMIS MENTAL HEALTH SCORE (range 21-68) 38.8 Vital signs: Temp: -- Vitals: 01/02/21 1129 BP: 127/72 BP Location (NBP): Left arm Patient Position: Sitting BP Cuff Sizes: Adult (25-34 cm) There is no height or weight on file to calculate BMI. Physical Exam: 60 year old Female in NAD. Non-toxic appearing. Right elbow exam: Take out of fiberglass. There are a couple of pressure points of the distal ulna styloid and wrist from the cast. No open sores or lesions. No evidence of infection. The incision is healed with no asael-incisional erythema or evidence of infection. There is TTP at the proximal 3rd ulna shaft Fx. No Fx motion palpated. The elbow is fused with no motion. Wrist extension strength 5/5. Interosseous, intrinsics intact. Skin is warm, dry and well perfused. Imaging: Personal review and interpretation of the patient's imaging reveals: Updated right elbow x-ray reviewed image by image in the office today reveals healing of the proximal ulna Fx with no change in fracture position with bridging callous. Assessment: 60 y.o. year-old female with ongoing right proximal ulna moderate to severe pain despite several weeks of cast immobilization. Consider loosening of surgical hardware or deep infection. Plan: I reviewed my findings in the office today with both x-rays and clinical exam. At this time, Going back in a long arm posterior pre-fabricated slab (removable type) for comfort. This needs to be well padded as she did have a few pressure points from her previous cast with no evidence of infection. See separate notation from our Cast Tech group. Advise remaining non-weight bearing. Cool packs and acetaminophen prn for pain no greater than 3 grams per day for pain. I have ordered serology/peripheral labs to assess for infection and a CT scan to assess for surgical hardware loosening. Pt agrees, questions solicited/answered, will return as scheduled and as needed for concerns or questions. Pt understands they may also call us prn for above. Follow up: I will call her with lab work results and CT scan results and discuss her case with Dr. Correa. This plan was discussed with the patient and they are in agreement. All of the patient's questions were answered. In this encounter, I performed the following: Review of external notes?: no Review of test results?: yes Interpretation of tests?: yes Discussion of management and test interpretation?: yes Decision regarding minor or major surgery?: no Risk factors for surgery?: no documented in this encounter Plan of Treatment Not on file documented as of this encounter Procedures Procedure Name Priority Date/Time Associated Diagnosis Comments HC C-REACTIVE PROTEIN STAT 01/02/2021 12:34 PM EDT Closed displaced transverse fracture of shaft of right ulna, initial encounter HEMOGRAM STAT 01/02/2021 12:34 PM EDT Closed displaced transverse fracture of shaft of right ulna, initial encounter DIFFERENTIAL, AUTOMATED STAT 01/02/2021 12:34 PM EDT Closed displaced transverse fracture of shaft of right ulna, initial encounter HC ESR-SEDIMENTATION RATE, BLOOD STAT 01/02/2021 12:34 PM EDT Closed displaced transverse fracture of shaft of right ulna, initial encounter HC VENIPUNCTURE STAT 01/02/2021 12:34 PM EDT Closed displaced transverse fracture of shaft of right ulna, initial encounter documented in this encounter Results * CT [...] who have questions please contact the health ocular care technologist that requested your imaging first. ? Narrative 01/30/2021 1:27 PM EDT EXAMINATION: CT [...] patients who have questions please contactthe health ocular care technologist that requested your imaging first. Dorina Campbell SREE IMG CT ORDERABLES * Differential, Automated (01/02/2021 12:34 PM EDT) [facility] Neutrophil % 71.5 % [facility] Neutrophil Absolute 5.42 1.70 - 6.10 x10(3)/[facility] Lymph % 18.6 % [facility] Lymphocytes Abs 1.4 0.9 - 3.2 x10(3)/[facility] Monocyte % 6.3 % [facility] Monocyte Abs 0.5 0.3 - 0.9 x10(3)/[facility] Eos % 2.6 % [facility] Eosinophils Abs 0.2 0.0 - 0.4 x10(3)/[facility] Basophil % 0.7 % [facility] Baso Absolute 0.0 0.0 - 0.1 x10(3)/[facility] Immature Gran % 0.30 % [facility] Comment: Immature granulocytes(IG's)percentage and absolute count will include metamyelocytes, myelocytes, and promyelocytes. Blood smears from CBCs yielding IG's will be scanned manually for concordance. If this scan disagrees with the automated IG or if promyelocytes are noted, a manual differential will be performed. Immature Gran Absolute 0.02 0.00 - 0.04 x10(3)/[facility] Blood specimen (specimen) 01/02/2021 12:34 PM EDT 01/02/2021 12:48 PM EDT Narrative Resulting Agency Comment Spec In Lab Dorina Campbell SREE HEMATOLOGY ORDERABL ES [facility] [place] [address] * (ABNORMAL) Hemogram (01/02/2021 12:34 PM EDT) White Blood Cell 7.6 4.0 - 9.5 x10(3)/[facility] Red Blood Cell 5.17 4.00 - 5.21 x10(6)/[facility] Hemoglobin 15.1 11.7 - 15.5 gm/dL [facility] Hematocrit 46.6(H) 35.7 - 45.8 % [facility] Mean Cell Volume 90.1 82.6 - 94.4 fL [facility] Mean Cell Hemoglobin 29.2 27.1 - 32.0 pg [facility] Mean Cell Hemoglobin Concentration 32.4 31.7 - 35.0 gm/dL [facility] Platelet 170 145 - 357 x10(3)/[facility] RDW Standard Deviation 43.1 37.0 - 46.0 fL [facility] RDW coefficient of variation 13.1 11.5 - 14.1 % [facility] Mean Platelet Volume 9.9 7.6 - 12.9 fL [facility] NRBC% auto 0.0 % [facility] NRBC Absolute 0.000 0.000 - 0.000 x10(3)/[facility] Blood specimen (specimen) 01/02/2021 12:34 PM EDT 01/02/2021 12:48 PM EDT Narrative Resulting Agency Comment Spec In Lab Dorina Campbell APRN HEMATOLOGY ORDERABL ES [facility] [place] [address] * Sedimentation rate (01/02/2021 12:34 PM EDT) Sedimentation Rate Automated 5 2 - 39 mm/hr [facility] Comment: Effective August 01, 2019 new capillary photometric technology has resulted in a change in reference ranges. It is recommended that each ESR result be reviewed with its own age appropriate reference range. Blood specimen (specimen) 01/02/2021 12:34 PM EDT 01/02/2021 12:48 PM EDT Narrative Resulting Agency Comment Spec In Lab Dorina Campbell SCOOPER HEMATOLOGY ORDERABL ES Performing Organization Address [facility] Co de Phone Number [facility] [place] [address] * (ABNORMAL) CRP, acute inflammation (01/02/2021 12:34 PM EDT) C-Reactive Protein 6.6(H) <=4.9 mg/L [facility] Blood specimen (specimen) 01/02/2021 12:34 PM EDT 01/02/2021 12:48 PM EDT Narrative Resulting Agency Comment Spec In Lab Dorina Massey Adrian [facility]OEMAKERN CHEMISTRY ORDERABLE S Performing Organization Address [facility] de Phone Number [facility] [place] [address] * XR Elbow 3 Views Right (GENERIC) (01/02/2021 10:22 AM EDT) Anatomical Region Laterality Modality Elbow Right Digital Radiogra phy Impressions 01/02/2021 10:27 AM EDT Healing proximal ulna periprosthetic fracture with unchanged alignment. Thank you for letting us participate in the care of this patient. ??If you are a health care provider and have any questions regarding this report, please contact the number below. ??For patients who have questions please contact the health ocular care technologist that requested your imaging first. ? Electronically signed by: Joaquin Ferro MD, [facility] ([phone]), at 01/02/2021 10:27 AM Narrative 01/02/2021 10:27 AM EDT EXAMINATION: XR ELBOW 3 VIEWS RIGHT (GENERIC) CLINICAL HISTORY: Rt elbow fracture TECHNIQUE: 3 views RIGHT elbow COMPARISON: 11/21/2020 FINDINGS: Status post total elbow fusion. There is mature fusion at the elbow joint which has fused in flexion, unchanged. There is no fracture of the hardware. Redemonstrated mildly displaced fracture of the proximal ulna at the level of the distal screw. There is increase in callus. Alignment is unchanged. Procedure Note Joaquin Ferro MD - 01/02/2021 EXAMINATION: XR ELBOW 3 VIEWS RIGHT (GENERIC) CLINICAL HISTORY: Rt elbow fracture TECHNIQUE: 3 views RIGHT elbow COMPARISON: 11/21/2020 FINDINGS: Status post total elbow fusion. There is mature fusion at the elbow jointwhich has fused in flexion, unchanged. There is no fracture of the hardware. Redemonstrated mildly displaced fracture of the proximal ulna at the levelof the distal screw. There is increase in callus. Alignment is unchanged. IMPRESSION Healing proximal ulna periprosthetic fracture with unchanged alignment. Thank you for letting us participate in the care of this patient. If youare a health care provider and have any questions regarding this report,please contact the number below. For patients who have questions please contactthe health ocular care technologist that requested your imaging first. Electronically signed by: Joaquin Ferro MD[facility]([phone]), at 01/02/2021 10:27 AM Dorina Campbell APRN IMG DX ORDERABLES documented in this encounter Visit Diagnoses Diagnosis Closed displaced transverse fracture of shaft of right ulna, initial encounter Dislocation of elbow, unspecified laterality, sequela Pain in right elbow Pain in joint, upper arm Closed displaced transverse fracture of shaft of right ulna, initial encounter- Primary Dislocation of elbow, unspecified laterality, sequela Pain in right elbow Pain in joint, upper arm Closed displaced transverse fracture of shaft of right ulna, initial encounter Dislocation of elbow, unspecified laterality, sequela Pain in right elbow Pain in joint, upper arm documented in this encounter Care Teams Bar Host/Hostess Relationship Specialty Start Date End Date Maryuri Evans MD [address] [place] [address] PCP - General 09/23/14 documented as of this encounter
--- OUTSIDE RECORDS SUMMARY | 2024-05-31 17:49 | XMS_ITS | Encounter Summary ---
Author Organization [facility] Address [facility] [address] Care Team Providers Care Power Truck Driver Name Role Phone Maryuri Evans MD Primary Care Provider [phone] Reason for Visit * Consultation (Routine) - Closed Specialty Diagnoses / Procedures Referred By Keith yung Referred To Contact Maxillofacial Surgery Diagnoses evaluate 2,4,5,6,7,8,9,10,11,12, 13,18,19,21,22,23,24,25 ,26,27,28,31 for extractions [place]ailyn [place] [address] Wesley Jacobo MD [facility] [place] [address] Referral ID Status Reason Start Date Expiration Date Visits Re quested Visits Authorized [id number] Closed 05/08/2019 05/07/2020 1 1 Encounter Details Date Type Department Care Team (Late st Contact Info) Description 09/05/2019 10:00 AM EST Office Visit [place] [address] Wesley Jacobo MD [facility] [place] [address] Caries involving multiple surfaces of tooth Social History Tobacco Use Types Packs/Day Years [...] - - Weight 83 kg (183 lb) 09/05/2019 9:52 AM EST Height 154.9 cm (5' 1) 09/05/2019 9:52 AM EST Body Mass Index 34.58 09/05/2019 9:52 AM EST documented in this encounter Progress Notes * Wesley Jacobo MD - 09/05/2019 10:00 AM EST Oral & Maxillofacial Surgery Extraction Consult Jesenia Méndez is a 58 y.o. female who is referred to us for consultation regarding dental extractions. Referring dentist if Lester Almanzar A complete history of the Jesenia 's symptoms and physical signs were reviewed with attention to initial findings and progression, pain, bleeding, swelling, lumps, bumps, drainage, dysphagia, odynophagia, paresthesia, dysarthria and systemic effects. Pertinent notations from today's history: ?? Consult for extractions of remaining teeth ?? Plan is to wait 8-10 for healing before dentures ?? Pain in her teeth ?? No recent antibiotics for her teeth ?? No partials or mouth guard use ?? Diabetic history. Insulin at night. ?? Attempted extractions under IV sedation and dentist office but for some reason unknown to the patient they could not proceed in April 2019 and subsequently referred her here Past Medical and Dental History: No past medical history on file. Patient Active Problem List Diagnosis Code ??? Psoriasis L40.9 ??? S/P R elbow fusion on 12/14/17 Correa S53.106A ??? pantoprazole (PROTONIX) 40 mg Tablet, Delayed Release (E.C.) ??? sertraline (ZOLOFT) 100 mg Tablet ??? zolpidem (AMBIEN) 10 mg Tablet ??? multivitamin (THERAGRAN) Tablet ??? calcium carbonate (CALCIUM 500 ORAL) ??? naproxen (NAPROSYN) 500 mg Tablet ??? levothyroxine (SYNTHROID) 50 mcg Tablet ??? hydrOXYzine (VISTARIL) 25 mg Capsule ??? glipiZIDE (GLUCOTROL XL) 10 mg Tablet Extended Rel 24 hr ??? topiramate (TOPAMAX) 100 mg Tablet ??? cyclobenzaprine (FLEXERIL) 5 mg Tablet ??? LANTUS SOLOSTAR U-100 INSULIN pen ??? losartan (COZAAR) 50 mg Tablet ??? insulin glargine (LANTUS) Solution blood sugars run usually in the 150s Allergies Allergen Reactions ??? Lisinopril Cough. Pt reported ??? Metformin ??? Trazodone ROS with attention to cardiac, pulmonary, hepatic, renal, neurologic and dermatologic systems reviewed with relevant findings as noted. Physical Exam: Extraoral exam conducted including facial symmetry, sensory and motor function, alertness and appropriateness to questions and commands, range of jaw motion, TMJ function and skeletal architecture. Neck exam conducted with attention to normal musculature, vasculature and potential adenopathy. Intraoral exam including evaluation of tongue surface and consistency, floor of mouth, buccal and labial mucosa as well as maxillary and mandibular vestibules, hard and soft palate including soft palate elevation and oropharynx as well as dentition, dental arches, occlusion and salivary flow. Pertinent and remarkable findings include: ??? Alert no acute distress pleasant ??? Generalized caries and nonrestorable dentition ??? Teeth #2, 4, 5, 6, 7, 8, 9, 10, 11, 12, 13, 18, 19, 21, 22, 23, 24, 25, 26, 27, 28, 29, 31 are present and there are multiple root tips including teeth #13, 31, 18, 19 ??? No oral lesions ??? No lymphadenopathy in neck is soft ??? General gingivitis Radiographic Examination: Panorex done in clinic today. Impression: Failed dentition and generalized caries Recommendations and Plans: We will extract all teeth in the operating room under general anesthesia I did discuss the advantages of having 2 implants placed in the lower jaw for an implant supported over denture. She will consider this pending financial coverage. Anticipated benefits and potential risks of the surgical intervention discussed were carefully reviewed with the patient and including but not limited to bleeding, infection, soft tissue dehiscence, delayed wound healing, nerve paresthesias and palsies, sinus injuries, injuries to adjacent tissues both hard and soft including jaw fracture and possible need for additional surgery. Questions regarding the proposed intervention were encouraged and answered. Wesley Jacobo MD, DMD, FACS documented in this encounter Plan of Treatment Not on file documented as of this encounter Procedures Procedure Name Priority Date/Time Associated Diagnosis Comments SURG EXTRAC REQUIR ELEVAT MUCPERISTEAL FLAP/GHANSHYAM BONE/SECT TOOTH Routine 09/05/2019 10:20 AM EST Caries involving multiple surfaces of tooth documented in this encounter Visit Diagnoses Diagnosis Caries involving multiple surfaces of tooth Other dental caries documented in this encounter Care Teams Power Truck Driver Relationship Specialty Start Date End Date Maryuri Evans MD [address] [place] [address] PCP - General 09/23/14 documented as of this encounter
--- OUTSIDE RECORDS SUMMARY | 2024-05-31 17:49 | XMS_ITS | Encounter Summary ---
Author Organization [facility] [place] [address] Care Team Providers Care Salvage Supervisor Name Role Phone Maryuri Evans MD Primary Care Provider [phone] Reason for Visit * Auth/Cert Specialty Diagnoses / Procedures Referred By Contac t Referred To Contact Diagnoses Elbow pain elbow infection, nonunion, post-septic arthritis Procedures PRO FUSION/GRAFT OF ELBOW JOINT ARTHRODESIS, ELBOW JOINT WITH AUTOGENOUS GRAFT (WRVU 14.32) Referral ID Status Reason Start Date Expiration Date Visits Re quested Visits Authorized [id number] 1 1 Encounter Details Date Type Department Care Team (Late st Contact Info) Description 2017 7:34 AM EDT Anesthesia Event [place] [address] Declan Madden MD [facility] DR ANESTHESIOLOGY [place] [address] Anesthesia Record Procedure Summary Procedure Name Responsible Anesthesiologist Anesthesia Start Time Anesthesia Stop Time ARTHRODESIS, ELBOW JOINT WITH AUTOGENOUS GRAFT (WRVU 14.32) (Right) Declan Madden MD 12/14/17 0734 12/14/17 1011 Events Date Time Event Comment 2017 0628 0734 Start 0736 AN Verify 0736 An Start Data 0740 An Induction 0744 An Intubation 0753 Anesthesia Ready 0807 An Tourn Inflated 250mmhg 0808 Procedure Start 0923 An Tourn Deflated 76 min. 0956 Procedure Stop 1001 Extubation/LMA Out Extubated to 8L FM no issues spontaneous breaths, adequate SaO2. 1004 an stop data 1010 Recovery or ICU Handoff Adilene ent care was transferred to the destination unit staff after review of the patient's medical history, current anesthetic/surgical status and plan, according to the Provider Handoff Checklist. 1011 Stop Meds Name Total Midazolam 2 mg Propofol 240 mg PHENYLephrine 240 mcg Ondansetron 4 mg Succinylcholine 80 mg vancomycin 1 g in 0.9 % sodium chloride 200 mL 1 g Propofol INF 1,078.21 mg Dexmedetomidine 20 mcg lactated Ringers infusion 1,000 mL 800 m L * Agents Name O2 Air N2O * Blood No blood administrations on file. Lines, Drains, and Airways Type Details Placement Removal (RETIRED) Peripheral IV Line - Single Lumen 12/14/17; 0616; cephalic vein (lateral side of arm), left; [id number] catheter system; 18 gauge, 3/4 in length; Sarai Wallace RN; intradermal injection, distraction, tolerated well; 0; 12/14/17; 1518 12/14/17 0616 by Sarai Wallace RN 12/14/17 1518 by Paty Gold RN ETT Mask Ventilation: Ea sy (1); ETT Type: Cuffed; ETT Size: 7.5 mm; Mac Blade: 3; Notes: Asleep, Pre-O2, Cricoid Pressure, Stylette; Laryngoscopy Grade: 1; ETT Placement Verified By: Auscultation, Capnometry, Visual; Secured at Teeth: 23 cm; Inserted by: kev sherman; Removal Date: 12/14/17; Removal Time: 1001 12/14/17 0749 by Rj Leahy CRNA 12/14/17 1001 by Rj Leahy CRNA Incision 12/14/17; 0808; elbo w; LDA not present upon assessment; 02/12/21; 0926 12/14/17 0808 by Patricia Razo RN 02/12/21 0926 by Liane Granger RN documented in this encounter Social History [...] OR Notes * Anesthesia Postprocedure Evaluation - Declan Madden MD - 2017 10:35 AM EDT [facility] [place] Department of Anesthesiology Post-procedure Note Patient: Jesenia Méndez Procedure Summary Date Anesthesia Start Anesthesia Stop Room / Location 12/14/17 0734 [facility]1 [facility] Procedure Diagnosis Surgeon Responsible Provider ARTHRODESIS, ELBOW JOINT WITH AUTOGENOUS GRAFT (WRVU 14.32) (Right ); MODIFIER LARGE FRAGMENT SYSTEM SYNTHES (N/A ); REMOVAL OF IMPLANT, DEEP, ELBOW (WRVU 5.96) (Right Elbow) (elbow infection, nonunion, post-septic arthritis) Christopher Correa MD Spence, Brian C, MD All Anesthesia Providers: Anesthesiologist: Declan Madden MD REGULATOR PIN INSERTER: Rj Leahy CRNA Most Recent Vitals: 12/14/17 1033 BP: Pulse: 100 Resp: 19 Temp: SpO2: 94% Pain 0 (12/14/17 1015) Patient Location: PACU/[facility] Level of Consciousness: Awake and Alert Pain Management: Satisfactory Analgesia PONV: None Cardiovascular Status: At Baseline Respiratory Status: At Baseline Postoperative Fluid Status: Intravascular EUvolemia Possible Anesthetic Complications: NONE apparent at time of evaluation Final Primary Anesthesia Type: General (The anesthetic type performed was the same as planned.) Comments: Block functioning well at this point in time * Anesthesia Procedure Notes - Pablo Kramer MD - 2017 6:50 AM EDT Associated Order(s): ANESTHESIA BLOCK Procedure: Anesthesia Block Block: Post-op Pain Control, supraclavicular nerve block Start time: 2017 6:40 AM End time: 2017 6:50 AM Patient Location: Block Room Indication/Prep Position: supine Prep: patient draped, mask, cap, sterile gloves, hand hygeine, chlorhexidine Laterality: right Skin Medication lidocaine 1% 5 ml Injection Information Ultrasound Guidance: in-plane and live Ultrasound guidance was used to identify the targeted neuronal structure. Ultrasound was also used to identify needle positon and to identify surrounding tissue (bone, muscle, and blood vessels) to prevent inadvertent intraneural or intravascular needle placement and injection. The spread of local anesthetic was confirmed with live ultrasound imaging. Injection technique:single-shot Needle Length: 5 cm Gauge: 22 Needle Type: B-[id number] Medication injection made incrementally with aspirations. Nerve infiltration solution through a needle Ropivicaine 0.5% 25 mL Resident: PABLO KRAMER Second Resident: Fellow: Attending Physician: DECLAN MADDEN ~~~~~~~~~~~~~~~~~~~~~~~~~~~~~~~~~~~~~~~~~~~~~~~~~~~~~~~~~~~~ * Anesthesia Preprocedure Evaluation - Declan Madden MD - 2017 6:08 AM EDT Pre-Anesthesia Evaluation for: Jesenia Méndez a 57 y.o. female. Procedure(s): ARTHRODESIS, ELBOW JOINT WITH AUTOGENOUS GRAFT (WRVU 14.32) MODIFIER LOCKING LARGE FRAGMENT SYNTHES MODIFIER 4.5 CANNULATED SCREW SYNTHES MODIFIER LARGE EXTERNAL FIXATOR SYNTHES Patient Active Problem List Diagnosis ??? Psoriasis No past medical history on file. No past surgical history on file. Social History Substance Use Topics ??? Smoking status: Never Smoker ??? Smokeless tobacco: Never Used ??? Alcohol use No History Drug Use No Allergies Allergen Reactions ??? Metformin ??? Trazodone Medications: MAR and/or home medications have been reviewed. Physical Exam: Most Recent Vitals: 12/14/17 0602 BP: 147/84 Pulse: 92 Resp: 18 Temp: 36.4 ??C (97.5 ??F) SpO2: 95% Body mass index is 35.14 kg/(m^2). Weight: 84.4 kg (186 lb) Airway Assessment: Mallampati: I TM distance: >3 FB Neck ROM: full Cardiovascular Assessment: cardiovascular exam normal Pulmonary Assessment: pulmonary exam normal Dental Assessment: - normal exam Misc Assessment: IV access: Peripheral line Anesthesia Plan: ASA 3 general, with a(n) intravenous induction Jesenia Méndez is a a 57 year old female with HTN/DM2 presenting for elbow arthrodesis. Meds: hydroxyzine, glipizide, topiramate, flexeril, lantus, synthroid, losartan, aspirin, insulin Allergies: metformin, trazodone, lisinopril NPO appropriate No cardiopulmonary disease. Has borderline functional tolerance No contraindications to regional. Plan GA with ETT Supraclavicular nerve block Region - Other Informed Consent: Anesthetic plan and risks discussed with patient and healthcare power of route sales driver. Plan discussed with REGULATOR PIN INSERTER. PAT Staff Note documented in this encounter Plan of Treatment Not on file documented as of this encounter Procedures Procedure Name Priority Date/Time Associated Diagnosis Comments ANESTHESIA BLOCK Routine 2017 3:10 PM EDT documented in this encounter Results * Anesthesia Block (2017 3:10 PM EDT) Narrative Declan Madden MD - 2017 3:10 PM EDT Pablo Kramer MD ? 2017 ??6:51 AM Procedure: ??Anesthesia Block Block: Post-op Pain Control, supraclavicular nerve block Start time: 2017 6:40 AM End time: 2017 6:50 AM ?? Patient Location: Block Room ?? Indication/Prep Position: supine Prep: patient draped, mask, cap, sterile gloves, hand hygeine, chlorhexidine Laterality: right Skin Medication lidocaine 1% 5 ml Injection Information Ultrasound Guidance: in-plane and live ?Ultrasound guidance was used to identify the targeted neuronal structure. ??Ultrasound was also used to identify needle positon and to identify surrounding tissue (bone, muscle, and blood vessels) to prevent inadvertent intraneural or intravascular needle placement and injection. ?? The spread of local anesthetic was confirmed with live ultrasound imaging. Injection technique:single-shot Needle Length: 5 cm Gauge: 22 Needle Type: [id number]-lpscc-msrgd Medication injection made incrementally with aspirations. Nerve infiltration solution through a needle Ropivicaine 0.5% 25 mL Resident: ? PABLO KRAMER A Second Resident: ? Fellow: ? Attending Physician: ??DECLAN MADDEN ?? ~~~~~~~~~~~~~~~~~~~~~~~~~~~~~~~~~~~~~~~~~~~~~~~~~~~~~~~~~~~~ Declan Madden MD GOVERNMENT CLERK [facility] documented in this encounter Visit Diagnoses Not on filedocumented in this encounter Administered Medications Inactive Administered Medications - up to 3 most recent administrations Medication Order MAR Action Action Date Dose Rate Site dexmedetomidine (PRECEDEX) injection PRN, Starting on Tue12/14/17 at 0754, Until Tue12/14/17 at 1013, Anesthesia Intra-op, Routine Given 2017 9:45 AM EDT 4 mcg Given 2017 9:24 AM EDT 4 mcg Given 2017 8:18 AM EDT 4 mcg lactated Ringers infusion 1,000 mL 1,000 mL, at 100 mL/hr, Intravenous, CONTINUOUS, Starting on Tue12/14/17 at 0615, Until Tue12/14/17 at 1210, Day of Surgery (Day of Procedure) New Bag 2017 7:30 AM EDT New Bag 2017 6:15 AM EDT 1,000 mLs 100 mL/hr midazolam (PF) (VERSED) 1 mg/mL multi-dose injection PRN, Starting on Tue12/14/17 at 0734, Until Tue12/14/17 at 1013, Sleep, Anesthesia Intra-op, Routine Given 2017 7:37 AM EDT 1 mg Given 2017 7:34 AM EDT 1 mg ondansetron (ZOFRAN) injection PRN, Starting on Tue12/14/17 at 0812, Until Tue12/14/17 at 1013, Nausea, Anesthesia Intra-op, Routine Given 2017 8:12 AM EDT 4 mg PHENYLephrine in NS (PF) (JOHN-SYNEPHRINE) 0.8 mg/10 mL (80 mcg/mL) multi-dose injection Syrg PRN, Starting on Tue12/14/17 at 0830, Until Tue12/14/17 at 1013, Anesthesia Intra-op, Routine Given 2017 9:00 AM EDT 80 mcg Given 2017 8:49 AM EDT 80 mcg Given 2017 8:30 AM EDT 80 mcg propofol (DIPRIVAN) 10 mg/mL bolus injection (Anesthesia) PRN, Starting on Tue12/14/17 at 0741, Until Tue12/14/17 at 1013, Anesthesia Intra-op Given 2017 9:52 AM EDT 20 mg Given 2017 9:43 AM EDT 20 mg Given 2017 7:41 AM EDT 200 mg propofol (DIPRIVAN) infusion CONTINUOUS PRN, Starting on Tue12/14/17 at 0740, Until Tue12/14/17 at 1013, Anesthesia Intra-op, Routine Rate/Dose Change 2017 9:40 AM EDT 50 mcg/kg/min 25.3 mL/hr Rate/Dose Change 2017 8:39 AM EDT 75 mcg/kg/min 38 m L/hr Rate/Dose Change 2017 8:29 AM EDT 100 mcg/kg/min 50. 6 mL/hr succinylcholine chloride (Quelicin) injection PRN, Starting on Tue12/14/17 at 0742, Until Tue12/14/17 at 1013, Anesthesia Intra-op, Routine Given 2017 7:42 AM EDT 80 mg vancomycin 1 g in 0.9 % sodium chloride 200 mL 1 g, Intravenous, at 200 mL/hr, EVERY 8 HOURS, 1 dose, First dose on Tue12/14/17 at 0615, Do not exceed 1 gram/hour. Vancomycin should be administered within 2 hours prior to incision. Re-dose after 8 hours., Day of Surgery (Day of Procedure), Routine, Indication for (Active or Suspected): Prophylaxis Given 2017 7:34 AM EDT 1 g New Bag 2017 7:25 AM EDT 1 g 200 mL/hr documented in this encounter Care Teams Salvage Supervisor Relationship Specialty Start Date End Date Maryuri Evans MD [address] [place] [address] PCP - General 09/23/14 documented as of this encounter
--- OUTSIDE RECORDS SUMMARY | 2024-05-31 17:49 | XMS_ITS | Encounter Summary ---
Author Organization [facility] Address [facility] [place] [address] Care Team Providers Care Centrifugal Separator Name Role Phone Maryuri Evans MD Primary Care Provider [phone] Encounter Details Date Type Department Care Team (Latest Contact Info) Description 11/21/2020 11:30 AM EDT - 11/21/2020 11:59 PM EDT Hospital Encounter XRay at [address] [place] [address] Christopher Correa MD [facility] [place] [address] Chronic elbow pain, right Discharge Disposition: Home Social History Tobacco Use [...] BY MOUTH TWICE A DAY 3 07/21/2017 aspirin EC 81 mg Tablet, Delayed Release (E.C.) Take by mouth. 02/05/2013 02/18/2021 buPROPion XL (Wellbutrin XL) 150 mg Tablet Extended Release 24 hr Take 150 mg by mouth every morning. 11/04/2022 HYDROcodone-acetamin ophen ([place]) 5-325 mg Tablet Take 1 tablet by [...] 25 Units subcutaneously nightly. 3 05/14/2017 02/19/20 21 losartan (COZAAR) 50 mg Tablet Take 25 mg by mouth every evening. 11/04/2022 insulin glargine (LANTUS) Solution Inject subcutaneously nightly. 02/08/2021 documented as of this encounter Plan of Treatment Not on file documented as of this encounter Procedures Procedure Name Priority Date/Time Associated Diagnosis Comments XR ELBOW 3 VIEWS RIGHT (GENERIC) Routine 11/21/2020 11:46 AM EDT Chronic elbow pain, right documented in this encounter Results * XR Elbow 3 Views Right (GENERIC) (11/21/2020 11:46 AM EDT) Anatomical Region Laterality Modality Elbow Right Digital Radiogra phy Impressions 11/21/2020 11:57 AM EDT Elbow fusion without hardware complications. Thank you for letting us participate in the care of this patient. ??If you are a health care provider and have any questions regarding this report, please contact the number below. ??For patients who have questions please contact the health child care leader that requested your imaging first. ? Electronically signed by: Pebbles Samson MD, [facility] ([phone]), at 11/21/2020 11:57 AM Narrative 11/21/2020 11:57 AM EDT EXAMINATION: XR ELBOW 3 VIEWS RIGHT (GENERIC) CLINICAL HISTORY: Chronic elbow pain, right, , entered by ordering service TECHNIQUE: Right elbow, ??3 views COMPARISON: Radiographs, February 2018. FINDINGS: Bones and joints Elbow fusion with plates and screws. The humeral olecranon joint space is obliterated. The radial head is resected, unchanged. No hardware complications. Soft tissues Unchanged. Procedure Note Pebbles Samson MD - 11/21/2020 EXAMINATION: XR ELBOW 3 VIEWS RIGHT (GENERIC) CLINICAL HISTORY: Chronic elbow pain, right, , entered by orderingservice TECHNIQUE: Right elbow, 3 views COMPARISON: Radiographs, February 2018. FINDINGS: Bones and joints Elbow fusion with plates and screws. The humeral olecranon joint spaceis obliterated. The radial head is resected, unchanged. No hardwarecomplications. Soft tissues Unchanged. IMPRESSION Elbow fusion without hardware complications. Thank you for letting us participate in the care of this patient. If youare a health care provider and have any questions regarding this report,please contact the number below. For patients who have questions please contactthe health child care leader that requested your imaging first. Christopher Correa MD IMG DX ORDERABLES documented in this encounter Visit Diagnoses Diagnosis Chronic elbow pain, right documented in this encounter Care Teams Centrifugal Separator Relationship Specialty Start Date End Date Maryuri Evans MD [address] [place] [address] PCP - General 09/23/14 documented as of this encounter
--- OUTSIDE RECORDS SUMMARY | 2024-05-31 17:49 | XMS_ITS | Encounter Summary ---
Author Organization [facility] Address [facility] [place] [address] Care Team Providers Care Shared Services And Outsourcing Manager Name Role Phone Maryuri Evans MD Primary Care Provider [phone] Reason for Visit * Reason Comments Follow Up Surgery s/p R elbow arthrode sis DOS: 12/14/17 Encounter Details Date Type Department Care Team (Late st Contact Info) Description 12/28/2017 11:00 AM EDT Office [place] [address] Ilda Shaikh PA [facility] [place] [address] Dislocation of elbow, unspecified laterality, subsequent encounter Social History Tobacco Use Types [...] Sign Reading Time Taken Comments Blood Pressure 127/69 12/28/2017 10:44 AM EDT Pulse 74 12/28/2017 10:44 AM EDT Temperature - - Respiratory Rate - - Oxygen Saturation - - Inhaled Oxygen Concentration - - Weight 84.4 kg (186 lb) 12/28/2017 10:44 AM EDT stated Height 154.9 cm (5' 1) 12/28/2017 10:44 AM EDT stated Body Mass Index 35.14 12/28/2017 10:44 AM EDT documented in this encounter Progress Notes * Ilda Shaikh PA - 12/28/2017 11:00 AM EDT PATIENT NAME: Jesenia Méndez AGE: 57 y.o. MR#: [id number] DATE OF VISIT: 12/28/2017 DATE OF SURGERY: 2017 SURGERY DESCRIPTION: ARTHRODESIS, ELBOW JOINT WITH AUTOGENOUS GRAFT (WRVU 14.32) (Right) MODIFIER LARGE FRAGMENT SYSTEM SYNTHES (N/A) REMOVAL OF IMPLANT, DEEP, ELBOW (WRVU 5.96) (Right) SURGEON: Dr. Correa CHIEF COMPLAINT: 2 weeks S/P above procedure HISTORY OF PRESENT ILLNESS: Ms. Méndez is a 57 y.o. female who presents 2 weeks s/p the above procedures for office follow up. She has been doing well since surgery. She is not having much pain in the elbow at this point. She has kept her elbow immobilized in her postoperative splint. She has noticed some pain over the ulnar aspect of her wrist which seems to be related to her splint. She also has a blood blister on the medial aspect of her elbow. She has noticed some diminished sensation in her ulnar digits since the surgery. She states that she had some occasional tingling in these fingers prior to the surgery, but this has been more pronounced recently. Ms. Méndez denies any fever/chills or other constitutional signs of infection. PHYSICAL EXAMINATION: Ms. Méndez is a 57 y.o. female who is alert and oriented. She is in no acute discomfort and is resting comfortably in the exam room. Inspection: Healing surgical incisions with no evidence of infection. ROM/Strength: Her elbow remains in a fixed flexed position. She can perform active wrist and fingerrange of motion without significant restriction. There is no evidence of any ulnar intrinsic atrophy or weakness. Neurovascular: She has some diminished sensation into her ulnar digits, but has intact sensation inthe median and radial distributions. Hand is well perfused. DIAGNOSTIC STUDIES: X-rays of the right elbow were personally reviewed. There are no complications following her elbow fusion. Intraoperative cultures also remain negative to date. SURVEY RESPONSES: [facility] Surgical Postop Visit 12/28/2017 PROMIS-10 General Health Good PROMIS-10 Quality of Life Good PROMIS-10 Physical Health Good PROMIS-10 Mental Health Good PROMIS-10 Social Activity Fair PROMIS-10 Everyday Activities A little PROMIS-10 Pain 7 PROMIS-10 Fatigue Mild PROMIS-10 Social Roles Fair PROMIS-10 Anxious or Depressed Sometimes PROMIS PHYSICAL HEALTH SCORE 37.4 PROMIS MENTAL HEALTH SCORE 41.1 Problems with surgical incision/wound after surgery No Gone to ER since knee surgery No Admitted to hospital since recent ortho surgery No Additional surgery on same body part No Satisfaction with Treatment Satisfied Choose Same Treatment Again Definitely yes ASSESSMENT: 2 weeks s/p above procedure PLAN: The patient's sutures were removed today and Steri-strips were applied without complication. She will be placed into a long-arm cast with her wrist free. She needs to avoid weightbearing activities with her right arm, but can perform wrist and finger range of motion as tolerated and she will continue to monitor her hand sensation and will contact us if this seems to be worsening, or if she is starting to notice any weakness in her hand. She was instructed to contact us as well if she feels that she needs any cast changes between now and her next appointment. The patient understands to contact us if she has any other questions or concerns. The patient will follow up in approximately 4 weeks with cast off x-rays in [facility] clinic. The above documentation was completed using [employer] voice recognition software. * Jaime Perez - 12/28/2017 11:00 AM EDT Jesenia Méndez presents to the clinic for a splint off per IMANI Kenny. The splint was intact upon arrival. The wrap and cotton were removed and the posterior splint was removed. The patient tolerated this procedure well. The patient's skin was intact.The patient was then sent to x-ray. * Kimberly Pendleton RN - 12/28/2017 11:00 AM EDT Patient identification was verified using two identifiers and consent was obtained. yes Patient verbalized understanding of procedure: yes The incision area was cleaned and prepped using sterile antiseptic swab. yes Sterile gauze was placed next to suture line to act as a receptacle for removed dustin.yes All sutures were removed by gently pulling the knot away from the skin and cutting the sutures as close to the skin as possible. yes Incision was inspected and cleaned with a sterile, antiseptic swab. yes Wound closure strips were applied to maintain contact between wound edges. yes Patient tolerated procedure well. yes Patient instructed on care of incision. yes * Delfina Tee - 12/28/2017 11:00 AM EDT Jesenia Méndez presents to the cast room for a cast on per Ilda Shaikh PA-C. The patient's skin is intact. The patient is going into a well padded long arm cast with wrist and hand free on theright side. The patient tolerated the procedure well. The patient was given instructions for cast care and was given instruction to call the clinic with any questions or concerns. documented in this encounter Plan of Treatment Not on file documented as of this encounter Results * XR Elbow 3 views Complete Right (Generic) (02/02/2018 10:17 AM EDT) Anatomical Region Laterality Modality Elbow Right Digital Radiogra phy Impressions 02/02/2018 12:13 PM EDT Right elbow arthrodesis. No acute complication. Narrative 02/02/2018 12:13 PM EDT EXAMINATION: XR ELBOW 3 VIEWS COMPLETE RIGHT (GENERIC) CLINICAL HISTORY: s/p right elbow fusion, assessing bone healing TECHNIQUE: 3 views of the right elbow COMPARISON: 12/28/2017 FINDINGS: The films document earlier arthrodesis of the elbow stabilized with posterior plate and screw fixation. There is no change in alignment or fixation. 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 Procedure Note Tyler Rivas MD - 02/02/2018 EXAMINATION: XR ELBOW 3 VIEWS COMPLETE RIGHT (GENERIC) CLINICAL HISTORY: s/p right elbow fusion, assessing bone healing TECHNIQUE: 3 views of the right elbow COMPARISON: 12/28/2017 FINDINGS: The films document earlier arthrodesis of the elbow stabilized withposterior plate and screw fixation. There is no change in alignment or fixation. Atthe elbow there appears to be solid ankylosis. IMPRESSION Right elbow arthrodesis. No acute complication. 12:13 PM Christopher Correa MD IMG DX ORDERABLES documented in this encounter Visit Diagnoses Diagnosis Dislocation of elbow, unspecified laterality, subsequent encounter Dislocation of elbow, unspecified laterality, subsequent encounter documented in this encounter Care Teams Shared Services And Outsourcing Manager Relationship Specialty Start Date End Date Maryuri Evans MD [address] [place] [address] PCP - General 09/23/14 documented as of this encounter
--- OUTSIDE RECORDS SUMMARY | 2024-05-31 17:49 | XMS_ITS | Encounter Summary ---
Author Organization [facility] Address [facility] [place] [address] Care Team Providers Care Securities And Real Estate Director Name Role Phone Maryuri Evans MD Primary Care Provider [phone] Reason for Visit * Auth/Cert Specialty Diagnoses [...] Expiration Date Visits Re quested Visits Authorized [id number] 1 1 Encounter Details Date Type Department Care Team (Late st Contact Info) Description 09/11/2019 11:12 AM EST Anesthesia Event [facility] [place] [address] Ga Emmanuel MD [facility] [address] [place] [address] Tal Pizano DO [facility] [place] [address] Anesthesia Record Procedure Summary Procedure Name Responsible Anesthesiologist Anesthesia Start Time Anesthesia Stop Time SURGICAL EXTRACTIONS REQUIRING ELEVATION OF MUCOPERIOSTEAL FLAP AND REMOVAL OF BONE OR SECTION OF TOOTH (WRVU 1.09) (Bilateral: Mouth) Ga Emmanuel MD 09/11/19 1112 09/11/19 1238 Events Date Time Event Comment 09/11/2019 1024 1112 AN Verify 1112 Start 1116 An Start Data 1122 An Induction 1123 An Intubation 1125 Anesthesia Ready 1127 Procedure Start 1214 Procedure Stop 1233 Extubation/LMA Out 1233 an stop data 1237 Recovery or ICU Handoff Adilene ent care was transferred to the destination unit staff after review of the patient's medical history, current anesthetic/surgical status and plan, according to the Provider Handoff Checklist. 1238 Stop Meds Name Total fentaNYL 100 mcg IV Lidocaine 40 mg Propofol 200 mg Rocuronium 30 mg Ondansetron 4 mg Dexamethasone 8 mg Neostigmine 3 mg Glycopyrrolate 0.6 mg cefTRIAXone (ROCEPHIN) 2 g v ial attach to sodium chloride 0.9% 50 mL Mini-Bag Plus 2 g Propofol INF 161.75 mg ketorolac (TORADOL) injection 30 mg 30 m g lactated ringers infusion 700 mL * Agents Name O2 Air N2O Sevoflurane (et) * Blood No blood administrations on file. Lines, Drains, and Airways Type Details Placement Removal Incision 12/14/17; 0808; elbo w; LDA not present upon assessment; 02/12/21; 0926 12/14/17 0808 by Patricia Razo RN 02/12/21 0926 by Liane Granger, SUNIL (RETIRED) Peripheral IV Line - Single Lumen 09/11/19; 1019; metacarpal vein (top of hand), left; [id number] catheter system; 22 gauge, 1/2 in length; 09/11/19; 1325 09/11/19 1019 by Yumiko Montgomery RN 09/11/19 1325 by Floridalma Dotson, RN ETT Mask Ventilation: Ea sy (1); ETT Type: Cuffed, Nasal; ETT Size: 7 mm; Mac Blade: 4; Notes: Asleep, Pre-O2, Cricoid Pressure; Attempts: 1; Laryngoscopy Grade: 1; ETT Placement Verified By: Auscultation, Capnometry, Visual; Secured at Teeth: 28 cm; Removal Date: 09/11/19; Removal Time: 1233 09/11/19 1128 by Antonio Funk, TIRE DEBEADER 09/11/19 1233 by Antonio Funk CRNA Incision 09/11/19; 1131; jaw; LDA not present upon assessment; 02/12/21; 92409/11/19 1131 by Gabby Fontenot RN 02/12/21 0925 by Liane Granger RN Incision 09/11/19; 1131; jaw; LDA not present upon assessment; 02/12/21; 92409/11/19 1131 by Gabby Fontenot RN 02/12/21 0925 by Liane Granger RN documented in this [...] OR Notes * Anesthesia Postprocedure Evaluation - Ga Emmanuel MD - 09/11/2019 1:10 PM EST Department of Anesthesiology Post-procedure Note Patient: Jesenia Méndez Procedure Summary Date: 09/11/19 [place] / Location: [facility] [place] [address] [place] [address] Anesthesia Start: 1112 Anesthesia Stop: 1238 Procedures: SURGICAL EXTRACTIONS REQUIRING ELEVATION OF MUCOPERIOSTEAL FLAP AND REMOVAL OF BONE OR SECTION OF TOOTH (WRVU 1.09) (Bilateral Mouth) ALVEOPLASTY,IN CONJUNCTION WITH EXTRACTIONS,PER QUADRANT,ENT (WRVU 4.06) (N/A Mouth) Diagnosis: Caries involving multiple surfaces of tooth (dental caries) Surgeon: Wesley Jacobo MD Responsible Provider: Ga Emmanuel MD Anesthesia Type: general ASA Status: 2 All Anesthesia Providers: Anesthesiologist: Ga Emmanuel MD TIRE DEBEADER: Antonio Funk CRNA Vitals Value Taken Time BP 122/52 09/11/2019 1:00 PM Temp 36 ??C (96.8 ??F) 09/11/2019 12:35 PM Pulse 91 09/11/2019 1:09 PM Resp 18 09/11/2019 1:00 PM SpO2 93 % 09/11/2019 1:09 PM Pain Level 7 09/11/2019 1:00 PM Vitals shown include unvalidated device data. Patient Location: PACU/[facility] Level of Consciousness: Awake and Alert Pain Management: Satisfactory Analgesia PONV: None Cardiovascular Status: At Baseline and Hemodynamically Stable Respiratory Status: At Baseline and Room Air Postoperative Fluid Status: Intravascular EUvolemia Possible Anesthetic Complications: NONE apparent at time of evaluation Final Primary Anesthesia Type: General (The anesthetic type performed was the same as planned.) Comments: Ga Emmanuel MD * Anesthesia Preprocedure Evaluation - Ga Emmanuel MD - 09/11/2019 10:22 AM EST Pre-Anesthesia Evaluation for: Jesenia Méndez a 58 y.o. female. Procedure(s): SURGICAL EXTRACTIONS REQUIRING ELEVATION OF MUCOPERIOSTEAL FLAP AND REMOVAL OF BONE OR SECTION OF TOOTH (WRVU 1.09) ALVEOPLASTY,IN CONJUNCTION WITH EXTRACTIONS,PER QUADRANT,ENT (WRVU 4.06) Patient Active Problem List Diagnosis ??? S/P R elbow fusion on 12/14/17 Madeline ??? Psoriasis No past medical history on file. Past Surgical History: Procedure Laterality Date ??? PRO FUSION/GRAFT OF ELBOW JOINT Right 2017 ARTHRODESIS, ELBOW JOINT WITH AUTOGENOUS GRAFT (WRVU 14.32) performed by Christopher Correa MD at [facility] MAIN OR ??? PRO REMOVAL DEEP IMPLANT Right 2017 REMOVAL OF IMPLANT, DEEP, ELBOW (WRVU 5.96) performed by Christopher Correa MD at [facility] MAIN OR Social History Tobacco Use ??? Smoking status: Never Smoker ??? Smokeless tobacco: Never Used Substance Use Topics ??? Alcohol use: No Social History Substance and Sexual Activity Drug Use No Allergies Allergen Reactions ??? Lisinopril Cough. Pt reported ??? Metformin ??? Trazodone Medications: MAR and/or home medications have been reviewed. Physical Exam: Most Recent Vitals: 09/11/19 1000 BP: 140/58 Pulse: 78 Resp: 14 Temp: 36.5 ??C (97.7 ??F) SpO2: 98% Body mass index is 32.88 kg/m??. Weight: 78.9 kg (174 lb) Airway Assessment: Mallampati: II TM distance: >3 FB Neck ROM: full Cardiovascular Assessment: Pulmonary Assessment: Dental Assessment: Misc Assessment: Anesthesia Plan: ASA 2 general, with a(n) intravenous induction 58yo female presenting for dental extractions Denies any issues with prior anesthetics Appropriately npo DM2, hypothyroid, gerd on ppi Plan for GA, Nasal intubation Region - Other Informed Consent: Anesthetic plan and risks discussed with patient. Plan discussed with TIRE DEBEADER. PAT Clinic Note documented in this encounter Plan of Treatment Not on file documented as of this encounter Visit Diagnoses Not on filedocumented in this encounter Administered Medications Inactive Administered Medications - up to 3 most recent administrations Medication Order MAR Action Action Date Dose Rate Site cefTRIAXone (ROCEPHIN) 2 g vial attach to sodium chloride 0.9% 50 mL Mini-Bag Plus 2 g, Intravenous, LAND[place] TO O.R., 1 dose, On Tue09/11/19 at 1115, Administer over 15 Minutes, Attach to 50 mL sodium chloride 0.9% Mini-Bag Plus , Indication for (Active or Suspected): Prophylaxis New Bag 09/11/2019 11:25 AM EST 2 g dexamethasone (DECADRON) injection PRN, Starting on Tue09/11/19 at 1131, Until Tue09/11/19 at 1242, Anesthesia Intra-op, Routine Given 09/11/2019 11:31 AM EST 8 mg fentaNYL 50 mcg/mL multi-dose injection PRN, Starting on Tue09/11/19 at 1116, Until Tue09/11/19 at 1242, Anesthesia Intra-op, Routine Given 09/11/2019 11:55 AM EST 25 mcg Given 09/11/2019 11:34 AM EST 25 mcg Given 09/11/2019 11:21 AM EST 25 mcg glycopyrrolate (ROBINUL) multi-dose injection PRN, Starting on Tue09/11/19 at 1214, Until Tue09/11/19 at 1242, Anesthesia Intra-op, Routine Given 09/11/2019 12:14 PM EST 0.6 mg ketorolac (TORADOL) injection PRN, Starting on Tue09/11/19 at 1206, Until Tue09/11/19 at 1242, Anesthesia Intra-op, Routine Given 09/11/2019 12:06 PM EST 30 mg lidocaine (PF) (XYLOCAINE) 100 mg/5 mL (2 %) injection PRN, Starting on Tue09/11/19 at 1121, Until Tue09/11/19 at 1242, Anesthesia Intra-op, Routine Given 09/11/2019 11:21 AM EST 40 mg neostigmine (BLOXIVERZ) injection PRN, Starting on Tue09/11/19 at 1213, Until Tue09/11/19 at 1242, Anesthesia Intra-op, Routine Given 09/11/2019 12:13 PM EST 3 mg ondansetron (ZOFRAN) injection PRN, Starting on Tue09/11/19 at 1132, Until Tue09/11/19 at 1242, Anesthesia Intra-op, Routine Given 09/11/2019 11:32 AM EST 4 mg propofol (DIPRIVAN) 10 mg/mL bolus injection (Anesthesia) PRN, Starting on Tue09/11/19 at 1122, Until Tue09/11/19 at 1242, Anesthesia Intra-op Given 09/11/2019 11:22 AM EST 200 mg propofol (DIPRIVAN) infusion CONTINUOUS PRN, Starting on Tue09/11/19 at 1125, Until Tue09/11/19 at 1242, Anesthesia Intra-op, Routine New Bag 09/11/2019 11:25 AM EST 50 mcg/kg/min 23.7 mL/hr rocuronium (ZEMURON) multi-dose injection PRN, Starting on Tue09/11/19 at 1122, Until Tue09/11/19 at 1242, Anesthesia Intra-op, Routine Given 09/11/2019 11:22 AM EST 30 mg documented in this encounter Care Teams Securities And Real Estate Director Relationship Specialty Start Date End Date Maryuri Evans MD [address] [place] [address] PCP - General 09/23/14 documented as of this encounter
--- OUTSIDE RECORDS SUMMARY | 2024-05-31 17:49 | XMS_ITS | Encounter Summary ---
Author Organization [facility] [place] [address] Care Team Providers Care Membership Sales Advisor Name Role Phone Maryuri Evans MD Primary Care Provider [phone] Reason for Visit * Auth/Cert Specialty Diagnoses / Procedures Referred By Contac t Referred To Contact Diagnoses Elbow pain elbow infection, nonunion, post-septic arthritis Procedures PRO FUSION/GRAFT OF ELBOW JOINT ARTHRODESIS, ELBOW JOINT WITH AUTOGENOUS GRAFT (WRVU 14.32) Referral ID Status Reason Start Date Expiration Date Visits Re quested Visits Authorized [id number] 1 1 Encounter Details Date Type Department Care Team (Late st Contact Info) Description 2017 7:30 AM EDT - 2017 10:58 AM EDT [place] [address] Niyah Correa MD [facility] [place] [address] ARTHRODESIS, ELBOW JOINT WITH AUTOGENOUS GRAFT (WRVU 14.32) Social History Tobacco Use Types Packs/Day Years [...] Sign Reading Time Taken Comments Blood Pressure 126/57 2017 10:45 AM EDT Pulse 98 2017 10:45 AM EDT Temperature 36.4 ??C (97.5 ??F) 2017 10:10 AM E DT Respiratory Rate 15 2017 10:45 AM EDT Oxygen Saturation 95% 2017 10:45 AM EDT Inhaled Oxygen Concentration - - Weight 84.4 kg (186 lb) 2017 5:54 AM EDT Height - - Body Mass Index 35.14 11/08/2017 2:16 PM EDT documented in this encounter Discharge Summaries * Seth Yarbrough MD - 2017 2:07 PM EDT Discharge Summary Patient Name: Jesenia Méndez Patient Age: 57 y.o. Language: Iraqi Race: White Ethnicity: Not nor Admit date: 2017 Discharge date and time: 2017 Attending Physician: Niyah Correa MD Discharge Physician: Niyah Correa MD Follow-up Recommendations for Providers: See discharge instructions for additional details. Future Appointments Date Time Provider Department Center 12/28/2017 10:00 AM [facility] DX ROOM 1 [facility] 12/28/2017 11:00 AM Ilda Shaikh PA [facility] [address] [place] [address] Inpatient Provider Contact Information: Niyah Correa MD Orthopedics: [phone] After hours and weekends, [place] [facility] Assistant Professor Of Nursing, , and have the Orthopedic resident paged. Discharge Diagnoses (Hospital Problems) and Secondary Diagnoses (Chronic Problems): Active Hospital Problems Diagnosis ??? S/P R elbow fusion on 12/14/17 Madeline Resolved Hospital Problems Diagnosis Date Resolved No resolved problems to display. Active Non-Hospital Problems Diagnosis ??? 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 female with a long history of elbow problems, multiple failed surgeries, chronic history of infection, and elbow pain and instability not responsive to conservative treatment including bracing. After discussion of the various options available to her, she decided to proceed with elbow arthrodesis. This was felt to be the lowest risk procedure given her significant infection history. Elbow arthroplasty was considered to be extremely high risk given her young age andher history of uncontrolled infections. She said she could not tolerate the pain any longer and wanted to have something done. She did understand clearly that this would completely eliminate flexion a nd extension of the elbow permanently and that there were significant risks including nonunion, hardware failure, and neurologic injury among others as listed on the informed consent, which she signed Hospital Course: Jesenia Méndez was admitted for the above diagnosis and surgical intervention. There were no intraoperative complications.The patient was started on oral pain medications and was comfortable on POD#0. Leigh was removed POD#0 and patient was voiding spontaneously in good amounts. Wound inspected POD#0 and found to be benign. Patient did not have a bowel movement prior to discharge but was passing flatus and taking PO without difficulty. By POD#0 the patient was medically stable and was clearedfor safe discharge to home. *Of Note, patient was counseled that her pain may be much more severe after her nerve block wears off. She was prepared for this eventuality and still desired to go home. Vital Signs at Discharge: Weight: Wt Readings from Last 1 Encounters: 12/14/17 84.4 kg (186 lb) Height: Ht Readings from Last 1 Encounters: 11/08/17 154.9 cm (5' 1) HC: HC Readings from Last 1 Encounters: No data found for HC BMI: Body mass index is 35.14 kg/(m^2). Last value Range last 24 hrs Temperature Temp: 36.3 ??C (97.3 ??F) Temp: [36.3 ??C (97.3 ??F)-36.4 ??C (97.5 ??F)] Heart Rate Heart Rate: 88 Heart Rate: [87-100] Blood Pressure BP: (!) 89/75 BP: (89-150)/(57-87) Respiratory Rate Resp: 17 Resp: [15-20] SpO2 SpO2: 97 % SpO2: [88 %-98 %] Art BP BP (Arterial Line): -- Functional and Cognitive Status: Patient mobilizing without assistance, cognitively intact at baseline mental status at time of discharge. Important Lab Data: Last wbc, hgb, hct plt No results for input(s): WBC, HGB, HCT in the last 72 hours. Invalid input(s): PLT Studies: N/A Pending Studies and Lab Data at Discharge: None Transfusions: No Discharge Conditions/Prognosis: Stable, awake, and alert. Mobilizing as noted above, pain controlled on oral medications. Discharge to: Home Updated Allergies/ADRs: Allergies Allergen Reactions ??? Lisinopril Cough. Pt reported ??? Metformin ??? Trazodone Immunizations Given this Hospitalization: Immunization History Administered Date(s) Administered ??? Influenza Vaccine, Whole 06/16/2008 Discharge Medications: Your Medications New Medications Dose Details acetaminophen 500 mg Cap Take 1,000 mg by mouth 3 times daily as needed (For post-operative pain) for up to 30 days. 1000 mg Refills: 0 amoxicillin-clavulanate 875-125 mg Tab Commonly known as: AUGMENTIN Take 1 tablet by mouth 2 times daily for 14 days. 1 tablet Quantity: 28 tablet Refills: 0 oxyCODONE 5 mg Tab Commonly known as: ROXICODONE Take 1-3 tablets by mouth every 4 hours as needed for Pain. 5-15 mg Quantity: 70 tablet Refills: 0 polyethylene glycol 17 gram Pwpk Commonly known as: MIRALAX Take 17 g by mouth daily as needed. For constipation 17 g Refills: 0 senna-docusate 8.6-50 mg Tab Commonly known as: PERICOLACE Take 1 tablet by mouth 2 times daily as needed for Constipation. 1 tablet Refills: 0 Continued medications with new dosing Dose Details aspirin 81 mg Tbec Commonly known as: ENTERIC COATED ASPIRIN Take 1 tablet by mouth 2 times daily for 30 days. What changed: when to take this 81 mg Quantity: 60 tablet Refills: 0 Continued medications, unchanged Dose Details cyclobenzaprine 5 mg Tab Commonly known as: FLEXERIL TAKE ONE TABLET BY MOUTH EVERY 4 HOURS Refills: 3 glipiZIDE 10 mg Tr24 Commonly known as: GLUCOTROL XL TAKE TWO TABLETS BY MOUTH EVERY DAY Refills: 3 hydrOXYzine 25 mg Cap Commonly known as: VISTARIL TAKE TWO CAPSULES BY MOUTH TWICE A DAY Refills: 5 * LANTUS SOLOSTAR U-100 INSULIN 100 unit/mL (3 mL) pen INJECT 20 UNITS UNDER THE SKIN AT BEDTIME Generic drug: insulin glargine Refills: 3 * LANTUS U-100 INSULIN Soln Inject subcutaneously nightly. Generic drug: insulin glargine Refills: 0 losartan 50 mg Tab Commonly known as: COZAAR Take 25 mg by mouth daily. Take 1/2 tablet a day 25 mg Refills: 0 pantoprazole 20 mg Tbec Commonly known as: PROTONIX Take 20 mg by mouth daily. 20 mg Refills: 0 SYNTHROID 100 mcg Tab Take 100 mcg by mouth daily. Generic drug: levothyroxine 100 mcg Refills: 0 topiramate 100 mg Tab Commonly known as: TOPAMAX TAKE ONE TABLET BY MOUTH TWICE A DAY Refills: 3 * Notice: This list has 2 medication(s) that are the same as other medications prescribed for you. Read the directions carefully, and ask your doctor or other care provider to review them with you. Smoking Status at Discharge: History Smoking Status ??? Never Smoker Smokeless Tobacco ??? Never Used Instructions Given to Patient at Discharge: Patient Instructions Activity: Non-weight bearing Right - so do not lift anything heavier than a coffee cup. Anticoagulation: You have been discharged on Aspirin 81 mg twice a day for 30 days. This medicationwill help decrease your chance of developing a blood clot. Take this medication with food to help protect your stomach. On 01/13/18 stop the Aspirin. Diet: Resume normal diet but increase your intake of fluids and fiber while you are on narcotic pain meds to prevent constipation Driving: No, not until you are cleared to do so by your Orthopedic clinic. Ideally you should not drive while you are on narcotic pain meds as these can affect judgement and reaction time. Call your Surgeon with any questions. Medications: 1. The pain medication you are on can cause constipation so increase your intake of fluids and fiber while you are on them. You can also take an wypy-ohp-ccetefs stool softener, colace or senna, to facilitate a bowel movement. 2. If you need a renewal on your narcotic pain medication, you need to give the Orthopedic clinic enough time to process your request. This can take up to three days, so plan accordingly. 3. Continue the tylenol around the clock for the next 10 days - it can be effective in controlling pain along with your other medications. 4. You have been discharged on a short acting narcotic. You will be on this medication for a limited period of time only. Taper off this medication as indicated on your prescription. 5. You have been prescribed an antibiotic, Augmentin, to help protect against infection. Please take it as directed. Shower: Sponge bath only. DO NOT submerge the dressing/incision. DO NOT get the area wet. Wound: Keep your splint on until follow-up. Keep it clean and dry. Call your doctor (#[phone]) if: ??? Increased discharge from the incision ? ? You have a fever > 101.5 or experience chills ??? Any redness or swelling around the incision ??? Increased pain or change in the pain that is not controlled by your pain meds Misc; Remember that ICE and elevation are very important to decrease swelling and control pain. Youshould use the ICE for 20-30 minutes at a time. FOLLOWUP APPOINTMENTS: 1. You will have followup appointments at [facility] as indicated in Future Appointments and Orders. You will have an xray prior to those appointments so please come to Radiology, desk 3T, 1 hour BEFORE your appointment for those x-rays. 2. If you are being discharged over the weekend or at night and do not have a scheduled appointmentwith Orthopaedics, you should be notified about your appointment within the next 1-2 days. Please call if you do not hear about an appointment within that timeframe, as your follow-up is important to us. Future Appointments Date Time Provider Department Center 12/28/2017 10:00 AM [facility] DX ROOM 1 [facility] 12/28/2017 11:00 AM Ilda Shaikh PA [facility] General Instructions None Future Appointments and Orders Future Appointments Provider Department Dept Phone 12/28/2017 11:00 AM Ilda Shaikh PA [facility] [place] [phone] Primary Care Provider: Maryuri Evans MD [phone] Discharge References/Attachments None documented in this encounter Discharge Instructions * Patient Instructions* Seth Yarbrough MD - 2017 1:55 PM EDT Activity: Non-weight bearing Right - so do not lift anything heavier than a coffee cup. Anticoagulation: You have been discharged on Aspirin 81 mg twice a day for 30 days. This medicationwill help decrease your chance of developing a blood clot. Take this medication with food to help protect your stomach. On 01/13/18 stop the Aspirin. Diet: Resume normal diet but increase your intake of fluids and fiber while you are on narcotic pain meds to prevent constipation Driving: No, not until you are cleared to do so by your Orthopedic clinic. Ideally you should not drive while you are on narcotic pain meds as these can affect judgement and reaction time. Call your Surgeon with any questions. Medications: 1. The pain medication you are on can cause constipation so increase your intake of fluids and fiber while you are on them. You can also take an ttaa-gsm-vovdmku stool softener, colace or senna, to facilitate a bowel movement. 2. If you need a renewal on your narcotic pain medication, you need to give the Orthopedic clinic enough time to process your request. This can take up to three days, so plan accordingly. 3. Continue the tylenol around the clock for the next 10 days - it can be effective in controlling pain along with your other medications. 4. You have been discharged on a short acting narcotic. You will be on this medication for a limited period of time only. Taper off this medication as indicated on your prescription. 5. You have been prescribed an antibiotic, Augmentin, to help protect against infection. Please take it as directed. Shower: Sponge bath only. DO NOT submerge the dressing/incision. DO NOT get the area wet. Wound: Keep your splint on until follow-up. Keep it clean and dry. Call your doctor (#[phone]) if: ??? Increased discharge from the incision ? ? You have a fever > 101.5 or experience chills ??? Any redness or swelling around the incision ??? Increased pain or change in the pain that is not controlled by your pain meds Misc; Remember that ICE and elevation are very important to decrease swelling and control pain. Youshould use the ICE for 20-30 minutes at a time. FOLLOWUP APPOINTMENTS: 1. You will have followup appointments [place] [facility] as indicated in Future Appointments and Orders. You will have an xray prior to those appointments so please come to Radiology, desk 3T, 1 hour BEFORE your appointment for those x-rays. 2. If you are being discharged over the weekend or at night and do not have a scheduled appointmentwith Orthopaedics, you should be notified about your appointment within the next 1-2 days. Please call if you do not hear about an appointment within that timeframe, as your follow-up is important to us. Future Appointments Date Time Provider Department Center 12/28/2017 10:00 AM [facility] DX ROOM 1 [facility] 12/28/2017 11:00 AM Ilda Shaikh PA [facility] documented in this encounter Medications at Time [...] for 30 days. 60 tablet 2017 01/13/2018 amoxicillin-clavulan ate (AUGMENTIN) 875-125 mg Tablet Take 1 tablet by mouth 2 times daily for 14 days. 28 tablet 2017 12/28/2017 pantoprazole (PROTONIX) 20 mg Tablet, Delayed Release (E.C.) Take 20 mg by mouth daily. 03/16/2018 oxyCODONE (ROXICODONE) 5 mg Tablet Take 1-3 tablets by mouth every 4 hours as needed for Pain. 70 tablet 2017 12/28/2017 polyethylene glycol (MIRALAX) 17 gram Powder in Packet Take 17 g by mouth daily as needed. For constipation 2017 12/28/2017 senna-docusate (PERICOLACE) 8.6-50 mg Tablet Take 1 tablet by mouth 2 times daily as needed for Constipation. 2017 12/28/2017 hydrOXYzine (VISTARIL) 25 mg Capsule TAKE TWO CAPSULES BY MOUTH TWICE A DAY 5 10/06/2017 03/06/2020 cyclobenzaprine (FLEXERIL) 5 mg Tablet TAKE ONE TABLET BY MOUTH EVERY 4 HOURS 3 05/18/2017 02/18/2021 LANTUS SOLOSTAR U-100 INSULIN pen Inject 25 Units subcutaneously nightly. 3 05/14/2017 02/19/20 losartan (COZAAR) 50 mg Tablet Take 25 mg by mouth every evening. 11/04/2022 levothyroxine (SYNTHROID) 100 mcg Tablet Take 100 mcg by mouth daily. 12/28/2017 insulin glargine (LANTUS) Solution Inject subcutaneously nightly. 02/08/2021 documented as of this encounter Progress Notes * Paty Gold RN - 2017 3:19 PM EDT The patient has met discharge criteria per policy. Discharge instruction reviewed and patient discharged to responsible adult. Patient???s pain level has been assessed and patient states that his/her level is tolerable at thistime. The After Visit Summary (AVS) and accompanying hand-outs have been reviewed with the patient; the patient verbalizes understanding at this time. Opportunity for clarification provided. All new medications have been reviewed with the patient and the appropriate hand-outs have been given to the patient. Reportable sign and symptoms have been reviewed with patient. * Seth Yarbrough MD - 2017 1:55 PM EDT ORTHOPAEDIC SURGERY INPATIENT PROGRESS NOTE Patient Name: Jesenia Méndez Age: 57 y.o. Surgery/Issue: Right elbow arthrodesis Attending: Dr Correa Date of surgery: 2017 SUBJECTIVE / INTERVAL HISTORY: Pt seen in [facility] post-op. She states that she's feeling well and would like to go home. She denies chest pain, shortness of breath, nausea, numbness/weakness. Pain well-controlled due to profound block. She has eaten a tuna sandwich and has already voided. FOCUSED REVIEW OF SYSTEMS: as above. Active Hospital Problems Diagnosis ??? S/P R elbow fusion on 12/14/17 Madeline Resolved Hospital Problems Diagnosis Date Resolved No resolved problems to display. Active Non-Hospital Problems Diagnosis ??? Psoriasis MEDICATIONS: ??? [START ON 12/15/2017] glipiZIDE (GLUCOTROL XL) CR tablet 20 mg ??? cyclobenzaprine (FLEXERIL) tablet 5 mg ??? [START ON 12/15/2017] levothyroxine (SYNTHROID) tablet 50 mcg ??? topiramate (TOPAMAX) tablet 100 mg ??? hydrOXYzine (ATARAX) tablet 50 mg ??? sodium chloride 0.9 % flush 5 mL ??? sodium chloride 0.9 % flush 5-20 mL ??? lidocaine (XYLOCAINE) 10 mg/mL (1 %) injection 3 mg ??? polyethylene glycol (MIRALAX) packet 17 g ??? senna-docusate (PERICOLACE) 8.6-50 mg per tablet 2 tablet ??? sodium chloride 0.9% infusion ??? ceFAZolin (ANCEF) 1g in dextrose 5% 50mL ??? oxyCODONE (ROXICODONE) immediate release tablet 5 mg OR oxyCODONE (ROXICODONE) immediate release tablet 10 mg OR oxyCODONE (ROXICODONE) immediate release tablet 15 mg ??? acetaminophen (TYLENOL) tablet 1,000 mg ??? [START ON 12/15/2017] aspirin EC tablet 81 mg ??? dextrose 50% IV syringe 25-50 mL OR glucagon (human recombinant) injection SolR 1 mg ??? POCT Fingerstick Glucose AND insulin lispro (HumaLOG) VIAL injection 2-8 Units ??? [START ON 12/15/2017] losartan (COZAAR) tablet 12.5 mg ??? sodium chloride 0.9% 1,000 mL (12/14/17 1020) OBJECTIVE: Temp: [36.3 ??C (97.3 ??F)-36.4 ??C (97.5 ??F)] Heart Rate: [87-100] Resp: [15-20] BP: (89-150)/(57-87) Intake/Output Summary (Last 24 hours) at 12/14/17 1354 Last data filed at 12/14/17 1115 Gross per 24 hour Intake 945 ml Output 350 ml Net 595 ml Body mass index is 35.14 kg/(m^2). PE: General: NAD, alert, arousable, responsive to questions. CV: RRR assessed peripherally Resp: breathing comfortably on RA Right Upper Extremity: In R elbow splint c/d/i. No sensation in ax/m/r distributions, impaired in u distribution Motor intact to slight finger flexion, No finger flexion extension. Brisk capillary refill distally and fingertips warm/well-perfused. 2+ Radial pulse No results found for: WBC, HGB, HCT, MCV, PLATELET IMAGING: XR elbow (2017) Plate fixation of the elbow joint without obvious complication. ASSESSMENT / PLAN: 57 y.o. female Day of Surgery s/p right elbow arthrodesis. Stable. Vitals withinnormal limits. Mobilize in [facility] and then can d/c home. Activity: NWB RUE in splint until follow-up ASA 81 mg bid x 30 days Augmentin PO x 2 weeks Seth Yarbrough MD 2017 Future Appointments Date Time Provider Department Center 12/28/2017 10:00 AM [facility] DX ROOM 1 [facility] 12/28/2017 11:00 AM Ilda Shaikh PA [facility] * Paty Gold RN - 2017 1:17 PM EDT Patient Name: Jesenia Méndez Patient Age: 57 y.o. Birthdate: 1960 Admit date: 2017 Attending Physician: Niyah Correa MD Pt arrived from PACU in bed, alert and oriented x 4, denies pain, + numbness of right arm, fingers warm, + radial pulse, splint and mady wrap clean and intact. Pt oriented to room and call light. * Pattie Wright RN - 2017 11:18 AM EDT RN Break Coverage * Brittany Abarca RN - 2017 10:21 AM EDT 1007- pt arrived in PACu. Attached to monitors, alarm parameters adjusted to pt and appropriate. Alarms audible. VSS. Pt conscious but sleepy. Right elbow in splint with MADY wrap in place, no drains.Right fingers warm to touch with brisk cap refill. Strong R radial pulse. Report from Mauri VASQUEZ, confirmed Abx orders for cefazolin. Per Mauri VASQUEZ will give Cefazolin 4 hours from intra op dose of vancomycin. Report from Anesthesia. See flowsheet for further assessment. 1048- xray at bedside. SQ insulin given, See MAR. Pt doing well, VSS. Awake and alert. No pain, no n/v. 1110- report to Pattie BARBER for break coverage. 1145- pt meets phase 1 discharge criteria. VSS. Pt A+O x4. No pain, no n/v. Lunch ordered for pt. Pt starting to move right hand, right hand still numb. RUE with brisk cap refill and strong radial pulse. No drainage noted on dressing. Right arm elevated on pillow. See flowsheet for further assessment. 1235- Repeat blood sugar completed. Blood glucose remains above 240 after two hours. Per orders, repeat 8 units of insulin given, See OCT. 1254- report called to Paty Barber in [facility]. Per pt. Allergy to lisinopril. When she takes the medication she gets a constant cough that doesnt go away, added to chart. documented in this encounter H&P Notes * Niyah Correa MD - 2017 6:35 AM EDT The patient's history and physical exam have been reviewed and completed. There has been no interval change from that of the pre-operative history and physical exam done within the last 30 days. We went over the fusion procedure again this morning. She does understand that she will lose all mobility of the elbow, with the potential benefit of pain relief. She has been wearing the brace and adjusti ng the flexion angle. She has it set at about 65-70 degrees now and feels that is the most functional position for her. We will therefore fuse the elbow at this approximate flexion angle. 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 Truck Driver Preoperative diagnosis: elbow infection, nonunion, post-septic arthritis Postoperative diagnosis: elbow infection, nonunion, post-septic arthritis Procedure(s) (LRB): ARTHRODESIS, ELBOW JOINT WITH AUTOGENOUS GRAFT (WRVU 14.32) (Right) MODIFIER LARGE FRAGMENT SYSTEM SYNTHES (N/A) REMOVAL OF IMPLANT, DEEP, ELBOW (WRVU 5.96) (Right) Anesthesia: General Estimated Blood Loss: * No values recorded between 2017 8:08 AM and 2017 10:02 AM * Specimens removed during surgery: * No orders in the log * Drains: Surgical Closure: Primary Closure - closure of ALL tissue levels during the original surgery regardless of wires, wickes, drains, or other devices extruding through the incision Disposition: awakened from anesthesia, extubated and taken to the recovery room in a stable condition, having suffered no apparent untoward event. Condition: doing well without problems (Please see the Surgical Encounter Summary for any Implant and Specimen details pertinent to this patient.) HPI/Surgical Indications: 57-year-old female with a long history of elbow problems, multiple failedsurgeries, chronic history of infection, and elbow pain and instability not responsive to conservative treatment including bracing. After discussion of the various options available to her, she decided to proceed with elbow arthrodesis. This was felt to be the lowest risk procedure given her significant infection history. Elbow arthroplasty was considered to be extremely high risk given her youngage and her history of uncontrolled infections. She said she could not tolerate the pain any longerand wanted to have something done. She did understand clearly that this would completely eliminate flexion and extension of the elbow permanently and that there were significant risks including nonunion, hardware failure, and neurologic injury among others as listed on the informed consent, which she signed. Procedure Description: The patient was identified in the preoperative holding area and the site of surgery was confirmed to be the right elbow. After confirming with both the patient and the informedconsent, the elbow was marked with the green shawnee. The plan was reviewed with the patient and allquestions were answered. The patient was then taken to the operating room. The patient was placed supine on the operating table and a general anesthetic was induced. The patient was then rolled into the lateral decubitus position, taking care to pad both the up and down legs with pillows. An axillary roll was placed a hand's breath beneath the axilla. The down arm was well padded. The torso was supported with a beanbag. A well-padded tourniquet was placed high on the right arm. The operative arm was positioned on the arthroscopic arm funk and secured in that position with a strap. Antibiotics were administered intravenously. A timeout was called and all present agreed on the correct patient and site of surgery elbow was the site of surgery. We used the prior incision which was extensive along the posterior aspect of the elbow. It was carried sharply through the skin and subcutaneous tissue. We identified the ulna distally and the triceps proximally. We took care to leave full-thickness flaps. We identified the ulnar nerve at the medial border of the triceps proximally and protected this throughout the case. The triceps was split in the midline of the tendon all the way down to the humerus using cautery. The periosteum was peeled off of the ulna as well as the triceps attachment via midline incision in the periosteum. 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 There was very little healthy appearing bleeding bone present, so we decided that rather than try to get both the nonunion and the fusion to heal,we would excise the nonunited fragment of ulna and use that as autogenous bone graft. This was taken out and morselized on the back table. We then identified the screw in the distal ulna that had been left in there from prior surgery. This was dissected out and removed without difficulty. We sent multiple cultures of synovium and we also sent the hardware for culture. Gram stain results reported back during surgery did not reveal any microorganisms. Once the joint was adequately exposed, it was readily apparent there was no cartilage left on the distal humerus. We took a bur and decorticated the bone ends, chamfering them somewhat so that they would fit with good surface area and bony contact at the appropriate fusion angle which the patient requested to be between 65 and 70?? based on performing ADLs with her hinged elbow brace over the past few weeks. We then went to the back table. We chose a narrow 4.5 LCDCP plate. This was a 10 hole plate. Using a bending press, we were able to bend the plate to approximately 68??. We then placed the plate over the posterior aspect of the elbow holding it in the appropriate fusion position. There was excellent bony contact. We then packed some bone graft in anteriorly and around the area of the fusion. We also used some infuse bone morphogenic protein to stimulate healing. We also decorticatedthe cortex of the bone around the area of the fusion posteriorly to promote healing as well. We then compressed multiple times using 4.5 cortical screws. This compressed the arthrodesis site nicely. It was completely opposed, and we could not even slip a Emmett between the bone ends. We filled 4 holes proximally and 4 holes distally, all bicortical, with good purchase. We then packed additional bone graft around the site of the arthrodesis and placed the rest of the infuse posteriorly. At this point, we took fluoroscopic images to confirm the position of the fusion, appropriate hardware position, and used a sterile goniometer to confirm that the fusion angle was between 65 and 70??as requested by the patient. We then closed the deep fascia over the plate using 0 Vicryl suture. The subcutaneous tissue was closed with 2-0 Vicryl suture and the skin with vertical mattress 3-0 nylon. Patient was then placed in a posterior slab splint to protect the incision and the arthrodesis. Postoperative plan will be return to clinic 2 weeks to take out the stitches and to place a long-arm cast with the wrist free for an additional 4 weeks. Infection Bundle used? N/A Attestation: Case Date: 2017 I was present and I participated during the entire procedure (does not need to include opening and closing). NIYAH CORREA MD 2017 documented in this encounter Plan of Treatment Not on file documented as of this encounter Procedures Procedure Name Priority Date/Time Associated Diagnosis Comments IMPLANTABLE DEVICES SCAN 12/15/2017 12:00 AM EDT SUPPLY REQUIREMENTS OFFICER SCAN 12/15/2017 12:00 AM EDT POCT GLUCOSE Routine 2017 3:01 PM EDT POCT GLUCOSE Routine 2017 12:32 PM EDT XR ELBOW 3 VIEWS RIGHT (GENERIC) Routine 2017 10:59 AM EDT REMOVAL OF IMPLANT,ELBOW Routine 2017 10:14 AM EDT POCT GLUCOSE Routine 2017 10:09 AM EDT XR FLUORO NO RAD <1HR - OR USE Routine 2017 9:30 AM EDT COAL TRIMMER CULTURE Routine 2017 9:00 AM EDT PROSTHETIC JOINT CULTURE, EXTENDED HOLD, AEROBIC & ANAEROBIC Routine 2017 8:40 AM EDT JOINT CULTURE Routine 2017 8:40 AM EDT ANAEROBIC CULTURE Routine 2017 8:4 0 AM EDT PROSTHETIC JOINT CULTURE, EXTENDED HOLD, AEROBIC & ANAEROBIC Routine 2017 8:30 AM EDT JOINT CULTURE Routine 2017 8:30 AM EDT ANAEROBIC CULTURE Routine 2017 8:3 0 AM EDT REMOVAL OF IMPLANT, DEEP, ELBOW (WRVU 5.96) 2017 7:36 AM EDT elbow infection, nonunion, post-septic arthritis MODIFIER LARGE FRAGMENT SYSTEM SYNTHES 2017 7:36 AM EDT elbow infection, nonunion, post-septic arthritis ARTHRODESIS, ELBOW JOINT WITH AUTOGENOUS GRAFT (WRVU 14.32) 2017 7:36 AM EDT elbow infection, nonunion, post-septic arthritis POCT GLUCOSE Routine 2017 6:09 AM EDT documented in this encounter Results * SCAN DOC: IMPLANTABLE DEVICES (12/15/2017 12:00 AM EDT) Narrative 12/15/2017 12:00 AM EDT Ordered by an unspecified provider. Scanning Provider MEDIA MGR SCAN EXT O RDR/RSLT * SCAN DOC: SUPPLY REQUIREMENTS OFFICER (12/15/2017 12:00 AM EDT) Anatomical Region Laterality Modality Other Narrative 12/15/2017 12:00 AM EDT Ordered by an unspecified provider. Scanning Provider MEDIA MGR SCAN EXT O RDR/RSLT * POCT Glucose (2017 3:01 PM EDT) Glucose, POC 188 65 - 199 mg/dL [facility] Comment: Supplemental ranges: <140 mg/dL before meals <180 mg/dL all other times of the day Blood specimen (specimen) 2017 3:01 PM EDT 2017 3:01 PM EDT Niyah Correa MD POINT OF CARE TEST O VIKKI Performing Organization Address [facility] Co de Phone Number [facility] [place] [place] [address] * (ABNORMAL) POCT Glucose (2017 12:32 PM EDT) Glucose, POC 265(H) 65 - 199 mg/dL [facility] Comment: Supplemental ranges: <140 mg/dL before meals <180 mg/dL all other times of the day Blood specimen (specimen) 2017 12:32 PM EDT 2017 12:32 PM EDT Niyah Correa MD POINT OF CARE TEST O VIKKI Performing Organization Address [facility] Co de Phone Number [facility] [place] [address] * XR Elbow 3 views Complete Right (Generic) (2017 10:59 AM EDT) Anatomical Region Laterality Modality Elbow Right Digital Radiogra phy Impressions 2017 1:43 PM EDT Interval fusion of the distal humerus and proximal ulna. Narrative 2017 1:43 PM EDT EXAMINATION: XR ELBOW 3 VIEWS COMPLETE RIGHT (GENERIC) CLINICAL HISTORY: sp elbow fusion TECHNIQUE: AP, oblique and lateral of the right elbow. COMPARISON: August 25, 2017 FINDINGS: A splint is present and obscures bone detail. In the interval since prior examination, there has been plate and screw fusion of the distal humerus and proximal ulna. Alignment of the ulna fracture is improved. Again seen is destruction of the radial head. The previously seen joint effusion is not clearly evident today. Procedure Note Angel Robbins MD - 2017 EXAMINATION: XR ELBOW 3 VIEWS COMPLETE RIGHT (GENERIC) CLINICAL HISTORY: sp elbow fusion TECHNIQUE: AP, oblique and lateral of the right elbow. COMPARISON: August 25, 2017 FINDINGS: A splint is present and obscures bone detail. In the interval since prior examination, there has been plate and screwfusion of the distal humerus and proximal ulna. Alignment of the ulna fractureis improved. Again seen is destruction of the radial head. The previously seen joint effusion is not clearly evident today. IMPRESSION Interval fusion of the distal humerus and proximal ulna. Niyah Correa MD IMG DX ORDERABLES * (ABNORMAL) POCT Glucose (2017 10:09 AM EDT) Glucose, POC 329(H) 65 - 199 mg/dL [facility] Comment: Supplemental ranges: <140 mg/dL before meals <180 mg/dL all other times of the day Blood specimen (specimen) 2017 10:09 AM EDT 2017 10:09 AM EDT Niyah Correa MD POINT OF CARE TEST O RDERABLES Performing Organization Address City/[facility]/ZIP Co de Phone Number [facility] [place] [address] * XR Fluoro No Rad <1Hr - OR Use (2017 9:30 AM EDT) Narrative RAD - 2017 9:52 AM EDT This order does not need a radiologist interpretation. ?? Niyah Correa MD G FLUORO ORDERABLE S Performing Organization Address [facility]/ZIP Co de Phone Number [place], [place] * Registered Private Duty Nurse Culture (2017 9:00 AM EDT) Registered Private Duty Nurse Culture No growth [facility] Specimen of unknown material (specimen) RIGHT ELBOW REGION STRUCTURE / Unknown 2017 9:00 AM EDT 2017 9:09 AM EDT Comment:SCREW IMPLANT FROM R ELBOW Narrative Resulting Agency Comment Spec In Lab Niyah Correa MD MICROBIOLOGY - GENER AL ORDERABLES Performing Organization Address [facility] [place] [address] * Anaerobic Culture (2017 8:40 AM EDT) Anaerobic Culture No anaerobic organisms isolated [facility] Joint specimen (specimen) RIGHT ELBOW REGION STRUCTURE / Unknown 2017 8:40 AM EDT 2017 9:13 AM EDT Comment:#2 JOINT TISSUE SYNO VIUM Narrative Resulting Agency Comment Spec In Lab Niyah Correa MD MICROBIOLOGY - GENER AL ORDERABLES Performing Organization Address [facility] de Phone Number [facility] [place] [address] * Joint Culture (2017 8:40 AM EDT) Joint Culture No growth at 14 days. [facility] Gram Stain Few White Blood Cells seen No microorganisms seen. Results called to and read back by Patricia Razo [facility] Joint specimen (specimen) RIGHT ELBOW REGION STRUCTURE / Unknown 2017 8:40 AM EDT 2017 9:13 AM EDT Comment:#2 JOINT TISSUE SYNO VIUM Narrative Resulting Agency Comment Spec In Lab Niyah Correa MD MICROBIOLOGY - GENER AL ORDERABLES Performing Organization Address [facility] Co de Phone Number [facility] [place] [address] * Anaerobic Culture (2017 8:30 AM EDT) Anaerobic Culture No anaerobic organisms isolated [facility] Joint specimen (specimen) RIGHT ELBOW REGION STRUCTURE / Unknown 2017 8:30 AM EDT 2017 9:13 AM EDT Comment:#1 JOINT TISSUE SYNO VIUM Narrative Resulting Agency Comment Spec In Lab Niyah Correa MD MICROBIOLOGY - GENER AL ORDERABLES Performing Organization Address [facility]/ZIP Co de Phone Number [facility] [place] [address] * Joint Culture (2017 8:30 AM EDT) Joint Culture No growth at 14 days. [facility] Gram Stain No WBC's seen. No microorganisms seen. Results called to and read back by Patricia Razo [facility] Joint specimen (specimen) RIGHT ELBOW REGION STRUCTURE / Unknown 2017 8:30 AM EDT 2017 9:13 AM EDT Comment:#1 JOINT TISSUE SYNO VIUM Narrative Resulting Agency Comment Spec In Lab Niyah Correa MD MICROBIOLOGY - GENER AL ORDERABLES Performing Organization Address [facility] Co de Phone Number [facility] [place] [address] * (ABNORMAL) POCT Glucose (2017 6:09 AM EDT) Glucose, POC 293(H) 65 - 199 mg/dL [facility] Comment: Supplemental ranges: <140 mg/dL before meals <180 mg/dL all other times of the day Blood specimen (specimen) 2017 6:09 AM EDT 2017 6:09 AM EDT Niyah Correa MD POINT OF CARE TEST O RDERABLES [facility] [place] [address] documented in this encounter Visit Diagnoses Not on filedocumented in this encounter Admitting Diagnoses Diagnosis Elbow dislocation Closed unspecified dislocation of elbow documented in this encounter Administered Medications Inactive Administered Medications - up to 3 most recent administrations Medication Order MAR Action Action Date Dose Rate Site ceFAZolin (ANCEF) 1g in dextrose 5% 50mL 1 g, Intravenous, EVERY 8 HOURS, 3 doses, First dose on Tue12/14/17 at 1000, Last dose on Tue12/15/17 at 0200, Administer over 30 Minutes, Adjust to 4 hours from intraoperative dose. * Beta-lactam based antibiotics (eg. Ampicillin, Cefazolin, Aztreonam) should be administered within 4 hours of the preceding intraoperative dose. * Vancomycin, Flouroquinolones, Clindamycin, Gentamicin, and Metronidazole should be administered within 8 hours of the preceding intraoperative dose., Recovery (Recovery-Hospital Unit), Indication for (Active or Suspected): Prophylaxis New Bag 2017 11:15 AM EDT 1 g 100 mL/hr dextrose 50% IV syringe 25-50 mL 25-50 mL (12.5-25 g), Intravenous, EVERY 1 HOUR PRN, Starting on Tue12/14/17 at 1307, Until Tue12/14/17 at 1749, Low blood sugar, For BG 50-70: 120 mL Juice or Regular (not diet) soda OR 12.5 gram (25 mL) Dextrose 50% IV OR, if no IV access, 1 mg Glucagon IM. Recheck BG in 30 minutes. May repeat juice, dextrose or glucagon once per episode For BG less than 50: 240 mL Juice or Regular (not diet) soda OR 25 grams (50 mL) Dextrose 50% IV OR, if no IV access, 1 mg Glucagon IM. Recheck BG in 30 minutes. May repeat juice, dextrose, or glucagon once per episode. To avoid extravasation, push Dextrose 50% SLOWLY (3 mL over 1 minute) in a patent, running IV, preferably a central line. For persistent hypoglycemia, consider longer-acting treatment for the duration of the active insulin., Routine fentaNYL (PF) 50 mcg/mL 2mL syringe 50 mcg, Intravenous, EVERY 5 MIN PRN, Pain, or prior to injection of local anesthetic., Starting on Tue12/14/17 at 0629, Until Tue12/14/17 at 1210, Hold for respiratory rate less than 8 breaths per minute. (maximum dose 200 mcg), Day of Surgery (Day of Procedure) Given 2017 6:35 AM EDT 50 mcg fentaNYL Citrate (PF) 100 mcg/2 mL (50 mcg/mL) syringe Starting on Tue12/14/17 at 0603, 1 dose, Until Tue12/14/17 at 0635, SARAI WALLACE: cabinet override glucagon (human recombinant) injection SolR 1 mg 1 mg, Intramuscular, EVERY 1 HOUR PRN, Starting on Tue12/14/17 at 1307, Until Tue12/14/17 at 1749, Low blood sugar, For BG 50-70: 120 mL Juice or Regular (not diet) soda OR 12.5 gram (25 mL) Dextrose 50% IV OR, if no IV access, 1 mg Glucagon IM. Recheck BG in 30 minutes. May repeat juice, dextrose or glucagon once per episode For BG less than 50: 240 mL Juice or Regular (not diet) soda OR 25 grams (50 mL) Dextrose 50% IV OR, if no IV access, 1 mg Glucagon IM. Recheck BG in 30 minutes. May repeat juice, dextrose, or glucagon once per episode. To avoid extravasation, push Dextrose 50% SLOWLY (3 mL over 1 minute) in a patent, running IV, preferably a central line. For persistent hypoglycemia, consider longer-acting treatment for the duration of the active insulin., Routine insulin lispro (HumaLOG) VIAL injection 2-8 Units 2-8 Units, Subcutaneous, 3 TIMES DAILY BEFORE MEALS, First dose on Tue12/14/17 at 1130, Until Discontinued, CORRECTION BOLUS Moderate BG 140 - 160 Give 2 units BG 161 - 200 Give 4 units BG 201 - 240 Give 6 units BG greater than 240, give 8 units and recheck BG in 2 hours.If BG less than 240 after two hours, give no insulin and resume prior schedule. If BG remains greater than 240, repeat 8 units (no more than three times) & call for new basal insulin orders. DO NOT hold if NPO, unless specifically told to do so., Routine Given 2017 12:39 PM EDT 8 Units Given 2017 10:40 AM EDT 8 Units lactated Ringers infusion 1,000 mL 1,000 mL, at 100 mL/hr, Intravenous, CONTINUOUS, Starting on Tue12/14/17 at 0615, Until Tue12/14/17 at 1210, Day of Surgery (Day of Procedure) New Bag 2017 7:30 AM EDT New Bag 2017 6:15 AM EDT 1,000 mLs 100 mL/hr lidocaine (XYLOCAINE) 10 mg/mL (1 %) injection 3 mg 3 mg (0.3 mL), Subcutaneous, ONCE PRN, 1 dose, Starting on Tue12/14/17 at 0554, Until Tue12/14/17 at 0615, for discomfort with PIV insertion, Day of Surgery (Day of Procedure), Routine Given 2017 6:15 AM EDT 3 mg losartan (COZAAR) tablet 12.5 mg 12.5 mg, Oral, DAILY, First dose (after last reorder) on Priya 12/15/17 at 0900, Until Discontinued, Routine midazolam (PF) (VERSED) 1 mg/mL injection 1 mg 1 mg, Intravenous, EVERY 5 MIN PRN, Starting on Tue12/14/17 at 0629, Until Tue12/14/17 at 1210, Sleep, or prior to injection of local anesthetic, Hold for delirium/agitation. (Maximum dose 5 mg)., Day of Surgery (Day of Procedure), Routine Given 2017 6:35 AM EDT 1 mg Given 2017 6:33 AM EDT 1 mg midazolam (PF) (VERSED) 1 mg/mL injection 1 dose, Starting on Tue12/14/17 at 0602, Until Tue12/14/17 at 0633, SARAI WALLACE: cabinet override oxyCODONE (ROXICODONE) immediate release tablet 10 mg 10 mg, Oral, EVERY 4 HOURS PRN, Starting on Tue12/14/17 at 0945, Until Tue12/14/17 at 1749, Pain, moderate pain (4-6), For moderate pain (4-6). Do not exceed 15 mg in 4 hours. If pain not relieved, call provider., Routine oxyCODONE (ROXICODONE) immediate release tablet 15 mg 15 mg, Oral, EVERY 4 HOURS PRN, Starting on Tue12/14/17 at 0945, Until Tue12/14/17 at 1749, Pain, severe pain (7-10), For severe pain (7-10). Do not exceed 15 mg in 4 hours. If pain not relieved, call provider., Routine oxyCODONE (ROXICODONE) immediate release tablet 5 mg 5 mg, Oral, EVERY 4 HOURS PRN, Starting on Tue12/14/17 at 0945, Until Tue12/14/17 at 1749, Pain, mild pain (1-3), For mild pain (1-3). Do not exceed 15 mg in 4 hours. If pain not relieved, call provider, Routine sodium chloride 0.9 % flush 5 mL 5 mL, Intravenous, 2 TIMES DAILY, First dose on Tue12/14/17 at 1000, Until Discontinued, Recovery (Recovery-Hospital Unit), Routine Given 2017 10:00 AM EDT 5 mLs sodium chloride 0.9% infusion 1,000 mL, at 100 mL/hr, Intravenous, CONTINUOUS, Starting on Tue12/14/17 at 1000, Until Tue12/14/17 at 1749, Recovery (Recovery-Hospital Unit) New Bag 2017 10:20 AM EDT 1,000 mLs 100 mL/hr vancomycin 1 g in 0.9 % sodium [...] g 200 mL/hr documented in this encounter Active and Recently Administered Medications Times are shown in EDT. Scheduled Medication Order 12/12/2017 12/13/2017 2017 acetaminophen (TYLENOL) tablet 1,000 mg 1,000 mg, Oral, EVERY 8 HOURS SCHEDULED, First dose on Tue12/14/17 at 1400, Until Discontinued, Maximum dose of acetaminophen is 4000 mg from all sources in 24 hours., Routine 1400 (Due) aspirin EC tablet 81 mg 81 mg, Oral, 2 TIMES DAILY, First dose on Tue12/15/17 at 0900, Until Discontinued, Routine ceFAZolin (ANCEF) 1g in dextrose 5% 50mL 1 g, Intravenous, EVERY 8 HOURS, 3 doses, First dose on Tue12/14/17 at 1000, Last dose on Tue12/15/17 at 0200, Administer over 30 Minutes, Adjust to 4 hours from intraoperative dose. * Beta-lactam based antibiotics (eg. Ampicillin, Cefazolin, Aztreonam) should be administered within 4 hours of the preceding intraoperative dose. * Vancomycin, Flouroquinolones, Clindamycin, Gentamicin, and Metronidazole should be administered within 8 hours of the preceding intraoperative dose., Recovery (Recovery-Hospital Unit), Indication for (Active or Suspected): Prophylaxis 1115 (New Bag - Prov ider: Pattie Wright RN)1145 (Stopped - Provider: Brittany Abarac RN) glipiZIDE (GLUCOTROL XL) CR tablet 20 mg 20 mg, Oral, DAILY WITH BREAKFAST, First dose on Tue12/15/17 at 0800, Until Discontinued, DO NOT CRUSH OR OPEN Consider holding dose if patient is not eating. , Routine hydrOXYzine (ATARAX) tablet 50 mg 50 mg, Oral, 2 TIMES DAILY, First dose on Tue12/14/17 at 2100, Until Discontinued insulin lispro (HumaLOG) VIAL injection 2-8 Units(Linked Group 1) 2-8 Units, Subcutaneous, 3 TIMES DAILY BEFORE MEALS, First dose on Tue12/14/17 at 1130, Until Discontinued, CORRECTION BOLUS Moderate BG 140 - 160 Give 2 units BG 161 - 200 Give 4 units BG 201 - 240 Give 6 units BG greater than 240, give 8 units and recheck BG in 2 hours.If BG less than 240 after two hours, give no insulin and resume prior schedule. If BG remains greater than 240, repeat 8 units (no more than three times) & call for new basal insulin orders. DO NOT hold if NPO, unless specifically told to do so., Routine 1040 (Given - Provid er: Brittany Abarca RN)1239 (Given - Provider: Brittany Abarca RN - Comment: per order, repeat dose given) levothyroxine (SYNTHROID) tablet 50 mcg 50 mcg, Oral, EVERY MORNING, First dose on Priya 12/15/17 at 0600, Until Discontinued, Routine losartan (COZAAR) tablet 12.5 mg 12.5 mg, Oral, DAILY, First dose (after last reorder) on Priya 12/15/17 at 0900, Until Discontinued, Routine polyethylene glycol (MIRALAX) packet 17 g 17 g, Oral, 2 TIMES DAILY, First dose on Tue12/14/17 at 1330, Until Discontinued, Routine 1330 (Due) senna-docusate (PERICOLACE) 8.6-50 mg per tablet 2 tablet 2 tablet, Oral, 2 TIMES DAILY, First dose on Tue12/14/17 at 1330, Until Discontinued, Routine 1330 (Due) sodium chloride 0.9 % flush 5 mL 5 mL, Intravenous, 2 TIMES DAILY, First dose on Tue12/14/17 at 1000, Until Discontinued, Recovery (Recovery-Hospital Unit), Routine 1000 (Given - Provid er: Brittany Abarca RN) topiramate (TOPAMAX) tablet 100 mg 100 mg, Oral, 2 TIMES DAILY, First dose on Tue12/14/17 at 1430, Until Discontinued, Routine 1430 (Due) vancomycin 1 g in 0.9 % sodium chloride 200 mL (COMPLETED) 1 g, Intravenous, at 200 mL/hr, EVERY 8 HOURS, 1 dose, First dose on Tue12/14/17 at 0615, Do not exceed 1 gram/hour. Vancomycin should be administered within 2 hours prior to incision. Re-dose after 8 hours., Day of Surgery (Day of Procedure), Routine, Indication for (Active or Suspected): Prophylaxis 0725 (New Bag - Prov ider: Sarai Wallace RN)0734 (Given - Provider: Rj Leahy CRNA - Comment: over 40 minutes )0825 (Due: Stopped - Provider: Sarai Wallace RN) Continuous Medication Order 12/12/2017 12/13/2017 2017 lactated Ringers infusion 1,000 mL (CANCELED) 1,000 mL, at 100 mL/hr, Intravenous, CONTINUOUS, Starting on Tue12/14/17 at 0615, Until Tue12/14/17 at 1210, Day of Surgery (Day of Procedure) 0615 (New Bag - Prov ider: Sarai Wallace RN)0730 (New Bag - Provider: Rj Leahy CRNA)0851 (Anesthesia Volume Adjustment - Provider: Rj Leahy CRNA)1000 (Anesthesia Volume Adjustment - Provider: Rj Leahy CRNA) sodium chloride 0.9% infusion 1,000 mL, at 100 mL/hr, Intravenous, CONTINUOUS, Starting on Tue12/14/17 at 1000, Until Tue12/14/17 at 1749, Recovery (Recovery-Hospital Unit) 1020 (New Bag - Prov ider: Brittany Abarca RN) PRN Medication Order 12/12/2017 12/13/2017 2017 cyclobenzaprine (FLEXERIL) tablet 5 mg 5 mg, Oral, 3 TIMES DAILY PRN, Starting on Tue12/14/17 at 1307, Until Tue12/14/17 at 1749, Muscle spasms, Routine dextrose 50% IV syringe 25-50 mL(Linked Group 2) 25-50 mL (12.5-25 g), Intravenous, EVERY 1 HOUR PRN, Starting on Tue12/14/17 at 1307, Until Tue12/14/17 at 1749, Low blood sugar, For BG 50-70: 120 mL Juice or Regular (not diet) soda OR 12.5 gram (25 mL) Dextrose 50% IV OR, if no IV access, 1 mg Glucagon IM. Recheck BG in 30 minutes. May repeat juice, dextrose or glucagon once per episode For BG less than 50: 240 mL Juice or Regular (not diet) soda OR 25 grams (50 mL) Dextrose 50% IV OR, if no IV access, 1 mg Glucagon IM. Recheck BG in 30 minutes. May repeat juice, dextrose, or glucagon once per episode. To avoid extravasation, push Dextrose 50% SLOWLY (3 mL over 1 minute) in a patent, running IV, preferably a central line. For persistent hypoglycemia, consider longer-acting treatment for the duration of the active insulin., Routine fentaNYL (PF) 50 mcg/mL 2mL syringe (CANCELED) 50 mcg, Intravenous, EVERY 5 MIN PRN, Pain, or prior to injection of local anesthetic., Starting on Tue12/14/17 at 0629, Until Tue12/14/17 at 1210, Hold for respiratory rate less than 8 breaths per minute. (maximum dose 200 mcg), Day of Surgery (Day of Procedure) 0635 (Given - Provid er: Sarai Wallace RN) glucagon (human recombinant) injection SolR 1 mg(Linked Group 2) 1 mg, Intramuscular, EVERY 1 HOUR PRN, Starting on Tue12/14/17 at 1307, Until Tue12/14/17 at 1749, Low blood sugar, For BG 50-70: 120 mL Juice or Regular (not diet) soda OR 12.5 gram (25 mL) Dextrose 50% IV OR, if no IV access, 1 mg Glucagon IM. Recheck BG in 30 minutes. May repeat juice, dextrose or glucagon once per episode For BG less than 50: 240 mL Juice or Regular (not diet) soda OR 25 grams (50 mL) Dextrose 50% IV OR, if no IV access, 1 mg Glucagon IM. Recheck BG in 30 minutes. May repeat juice, dextrose, or glucagon once per episode. To avoid extravasation, push Dextrose 50% SLOWLY (3 mL over 1 minute) in a patent, running IV, preferably a central line. For persistent hypoglycemia, consider longer-acting treatment for the duration of the active insulin., Routine lidocaine (XYLOCAINE) 10 mg/mL (1 %) injection 3 mg (COMPLETED) 3 mg (0.3 mL), Subcutaneous, ONCE PRN, 1 dose, Starting on Tue12/14/17 at 0554, Until Tue12/14/17 at 0615, for discomfort with PIV insertion, Day of Surgery (Day of Procedure), Routine 0615 (Given - Provid er: Sarai Wallace RN) lidocaine (XYLOCAINE) 10 mg/mL (1 %) injection 3 mg 3 mg (0.3 mL), Subcutaneous, ONCE PRN, 1 dose, Starting on Tue12/14/17 at 0944, Until Tue12/14/17 at 1749, for discomfort with PIV insertion, Recovery (Recovery-Hospital Unit), Routine midazolam (PF) (VERSED) 1 mg/mL injection 1 mg (CANCELED) 1 mg, Intravenous, EVERY 5 MIN PRN, Starting on Tue12/14/17 at 0629, Until Tue12/14/17 at 1210, Sleep, or prior to injection of local anesthetic, Hold for delirium/agitation. (Maximum dose 5 mg)., Day of Surgery (Day of Procedure), Routine 0633 (Given - Provid er: Sarai Wallace RN)0635 (Given - Provider: Sarai Wallace RN) oxyCODONE (ROXICODONE) immediate release tablet 10 mg(Linked Group 3) 10 mg, Oral, EVERY 4 HOURS PRN, Starting on Tue12/14/17 at 0945, Until Tue12/14/17 at 1749, Pain, moderate pain (4-6), For moderate pain (4-6). Do not exceed 15 mg in 4 hours. If pain not relieved, call provider., Routine oxyCODONE (ROXICODONE) immediate release tablet 15 mg(Linked Group 3) 15 mg, Oral, EVERY 4 HOURS PRN, Starting on Tue12/14/17 at 0945, Until Tue12/14/17 at 1749, Pain, severe pain (7-10), For severe pain (7-10). Do not exceed 15 mg in 4 hours. If pain not relieved, call provider., Routine oxyCODONE (ROXICODONE) immediate release tablet 5 mg(Linked Group 3) 5 mg, Oral, EVERY 4 HOURS PRN, Starting on Tue12/14/17 at 0945, Until Tue12/14/17 at 1749, Pain, mild pain (1-3), For mild pain (1-3). Do not exceed 15 mg in 4 hours. If pain not relieved, call provider, Routine sodium chloride 0.9 % flush 5-20 mL 5-20 mL, Intravenous, EVERY 1 MIN PRN, Starting on Tue12/14/17 at 0944, Until Tue12/14/17 at 1749, flush, Flush pertains to all indwelling lines. Flush per protocol found in the job aid using the link provided on this medication record., Recovery (Recovery-Hospital Unit), Routine Linked Groups Order Group 1: POCT Fingerstick Glucose (CANCELED) Routine, 4 TIMES DAILY BEFORE MEALS & AT BEDTIME, First occurrence on Tue12/14/17 at 1100, Until Specified, Consider choosing FOUR TIMES A DAY BEFORE MEALS AND AT BEDTIME as frequency for: Patients who have a good hypoglycemia awareness: -Patients who are eating meals during the day and sleeping at night -Patient who are otherwise stable And insulin lispro (HumaLOG) VIAL injection 2-8 UnitsJump to med 2-8 Units, Subcutaneous, 3 TIMES DAILY BEFORE MEALS, First dose on Tue12/14/17 at 1130, Until Discontinued, CORRECTION BOLUS Moderate BG 140 - 160 Give 2 units BG 161 - 200 Give 4 units BG 201 - 240 Give 6 units BG greater than 240, give 8 units and recheck BG in 2 hours.If BG less than 240 after two hours, give no insulin and resume prior schedule. If BG remains greater than 240, repeat 8 units (no more than three times) & call for new basal insulin orders. DO NOT hold if NPO, unless specifically told to do so., Routine Group 2: dextrose 50% IV syringe 25-50 mLJump to med 25-50 mL (12.5-25 g), Intravenous, EVERY 1 HOUR PRN, Starting on Tue12/14/17 at 1307, Until Tue12/14/17 at 1749, Low blood sugar, For BG 50-70: 120 mL Juice or Regular (not diet) soda OR 12.5 gram (25 mL) Dextrose 50% IV OR, if no IV access, 1 mg Glucagon IM. Recheck BG in 30 minutes. May repeat juice, dextrose or glucagon once per episode For BG less than 50: 240 mL Juice or Regular (not diet) soda OR 25 grams (50 mL) Dextrose 50% IV OR, if no IV access, 1 mg Glucagon IM. Recheck BG in 30 minutes. May repeat juice, dextrose, or glucagon once per episode. To avoid extravasation, push Dextrose 50% SLOWLY (3 mL over 1 minute) in a patent, running IV, preferably a central line. For persistent hypoglycemia, consider longer-acting treatment for the duration of the active insulin., Routine Or glucagon (human recombinant) injection SolR 1 mgJump to med 1 mg, Intramuscular, EVERY 1 HOUR PRN, Starting on Tue12/14/17 at 1307, Until Tue12/14/17 at 1749, Low blood sugar, For BG 50-70: 120 mL Juice or Regular (not diet) soda OR 12.5 gram (25 mL) Dextrose 50% IV OR, if no IV access, 1 mg Glucagon IM. Recheck BG in 30 minutes. May repeat juice, dextrose or glucagon once per episode For BG less than 50: 240 mL Juice or Regular (not diet) soda OR 25 grams (50 mL) Dextrose 50% IV OR, if no IV access, 1 mg Glucagon IM. Recheck BG in 30 minutes. May repeat juice, dextrose, or glucagon once per episode. To avoid extravasation, push Dextrose 50% SLOWLY (3 mL over 1 minute) in a patent, running IV, preferably a central line. For persistent hypoglycemia, consider longer-acting treatment for the duration of the active insulin., Routine Group 3: oxyCODONE (ROXICODONE) immediate release tablet 5 mgJump to med 5 mg, Oral, EVERY 4 HOURS PRN, Starting on Tue12/14/17 at 0945, Until Tue12/14/17 at 1749, Pain, mild pain (1-3), For mild pain (1-3). Do not exceed 15 mg in 4 hours. If pain not relieved, call provider, Routine Or oxyCODONE (ROXICODONE) immediate release tablet 10 mgJump to med 10 mg, Oral, EVERY 4 HOURS PRN, Starting on Tue12/14/17 at 0945, Until Tue12/14/17 at 1749, Pain, moderate pain (4-6), For moderate pain (4-6). Do not exceed 15 mg in 4 hours. If pain not relieved, call provider., Routine Or oxyCODONE (ROXICODONE) immediate release tablet 15 mgJump to med 15 mg, Oral, EVERY 4 HOURS PRN, Starting on Tue12/14/17 at 0945, Until Tue12/14/17 at 1749, Pain, severe pain (7-10), For severe pain (7-10). Do not exceed 15 mg in 4 hours. If pain not relieved, call provider., Routine documented in this encounter Care Teams Membership Sales Advisor Relationship Specialty Start Date End Date Maryuri Evans MD [address] [place] [address] PCP - General 09/23/14 documented as of this encounter
--- OUTSIDE RECORDS SUMMARY | 2024-05-31 17:49 | XMS_ITS | Encounter Summary ---
Author Organization [facility], [facility] [place] [address] Care Team Providers Care Junior Business Analyst Name Role Phone Maryuri Evans MD Primary Care Provider [phone] Reason for Visit * Auth/Cert Specialty Diagnoses / Procedures Referred By Contac t Referred To Contact Diagnoses Elbow pain elbow infection, nonunion, post-septic arthritis Procedures PRO FUSION/GRAFT OF ELBOW JOINT ARTHRODESIS, ELBOW JOINT WITH AUTOGENOUS GRAFT (WRVU 14.32) Referral ID Status Reason Start Date Expiration Date Visits Re quested Visits Authorized [id number] 1 1 Encounter Details Date Type Department Care Team (Latest Contact Info) Description 2017 5:38 AM EDT - 2017 3:48 PM EDT Hospital En[place] [address] Niyah Correa MD [facility] [place] [address] Discharge Disposition: Home Social History Tobacco Use [...] Sign Reading Time Taken Comments Blood Pressure 89/75 2017 1:00 PM EDT Pulse 88 2017 12:00 PM EDT Temperature 36.3 ??C (97.3 ??F) 2017 11:45 AM E DT Respiratory Rate 17 2017 12:00 PM EDT Oxygen Saturation 97% 2017 12:30 PM EDT Inhaled Oxygen Concentration - - Weight 84.4 kg (186 lb) 2017 5:54 AM EDT Height - - Body Mass Index 35.14 11/08/2017 2:16 PM EDT documented in this encounter Discharge Summaries * Seth Yarbrough MD - 2017 2:07 PM EDT Discharge Summary Patient Name: Jesenia Méndez Patient Age: 57 y.o. Language: Luxembourger Race: White Ethnicity: Not nor Admit date: 2017 Discharge date and time: 2017 Attending Physician: Niyah Correa MD Discharge Physician: Niyah Correa MD Follow-up Recommendations for Providers: See discharge instructions for additional details. Future Appointments Date Time Provider Department Center 12/28/2017 10:00 AM [facility] 12/28/2017 11:00 AM Ilda Shaikh PA [facility] Inpatient Provider Contact Information: Niyah Correa MD Orthopedics: [phone] After hours and weekends, call [facility] Field Underwriter, , and have the Orthopedic resident paged. Discharge Diagnoses (Hospital Problems) and Secondary Diagnoses (Chronic Problems): Active Hospital Problems Diagnosis ??? S/P R elbow fusion on 12/14/17 Madeline Resolved Hospital Problems Diagnosis Date Resolved No resolved problems to display. Active Non-Hospital Problems Diagnosis ??? Psoriasis Operations/Major Procedures: 2017 Surgeon(s) and Role: * Niyah Correa MD - Primary * Cachorro Dotson MD - Resident-Ear Machine Operator Procedure(s): ARTHRODESIS, ELBOW JOINT WITH AUTOGENOUS GRAFT, [...] on them. You can also take an fntr-oce-aeadtgw stool softener, colace or senna, to facilitate [...] it clean and dry. Call your doctor (#[phone]) if: ??? Increased discharge from the incision [...] 1. You will have followup appointments at [facility] as indicated in Future Appointments and Orders. [...] Time Provider Department Center 12/28/2017 10:00 AM [facility] DX ROOM 1 [facility] 12/28/2017 11:00 AM Ilda Shaikh PA [facility] General Instructions None Future Appointments and Orders Future Appointments Provider Department Dept Phone 12/28/2017 11:00 AM Ilda Shaikh PA [facility] [place] [phone] Primary Care Provider: Maryuri Evans MD [phone] Discharge References/Attachments None documented in this encounter [...] on them. You can also take an yele-ule-kvlttrm stool softener, colace or senna, to facilitate [...] it clean and dry. Call your doctor (#[phone]) if: ??? Increased discharge from the incision [...] 1. You will have followup appointments at [facility] as indicated in Future Appointments and Orders. [...] Time Provider Department Center 12/28/2017 10:00 AM [facility] DX ROOM 1 [facility] 12/28/2017 11:00 AM Ilda Shaikh PA [facility] documented in this encounter Medications at [...] Time Provider Department Center 12/28/2017 10:00 AM [facility] DX ROOM 1 [facility] 12/28/2017 11:00 AM Ilda Shaikh PA [facility] * Paty Gold RN - 2017 [...] Correa MD - 2017 10:14 AM EDT [facility] Operative Note Patient Name: Jesenia Méndez : [id number] MR#: [id number] Case Date: 2017 Surgeon: Surgeon(s) and Role: * Niyah Correa MD - Primary * Cachorro Dotson MD - Resident-Ear Machine Operator Preoperative diagnosis: elbow infection, nonunion, post-septic arthritis [...] the elbow was marked with the [place]. The plan was reviewed with the patient [...] and we could not even slip a [place] between the bone ends. We filled 4 [...] IMPLANTABLE DEVICES SCAN 12/15/2017 12:00 AM EDT SEPTIC TANK INSTALLER SCAN 12/15/2017 12:00 AM EDT POCT GLUCOSE Routine 2017 3:01 PM EDT POCT GLUCOSE Routine 2017 12:32 PM EDT XR ELBOW 3 VIEWS RIGHT (GENERIC) Routine 2017 10:59 AM EDT REMOVAL OF IMPLANT,ELBOW Routine 2017 10:14 AM EDT POCT GLUCOSE Routine 2017 10:09 AM EDT XR FLUORO NO RAD <1HR - OR USE Routine 2017 9:30 AM EDT FLUME RIDE OPERATOR CULTURE Routine 2017 9:00 AM EDT PROSTHETIC [...] SCAN EXT O RDR/RSLT * SCAN DOC: SEPTIC TANK INSTALLER (12/15/2017 12:00 AM EDT) Anatomical Region Laterality Modality Other Narrative 12/15/2017 12:00 AM EDT Ordered by an unspecified provider. Scanning Provider MEDIA MGR SCAN EXT O RDR/RSLT * POCT Glucose (2017 3:01 PM EDT) Glucose, POC 188 65 - 199 mg/dL [facility] Comment: Supplemental ranges: <140 mg/dL before meals <180 mg/dL all other times of the day Blood specimen (specimen) 2017 3:01 PM EDT 2017 3:01 PM EDT Niyah Correa MD POINT OF CARE TEST O VIKKI Performing Organization Address [facility] Co de Phone Number [facility] [place] [place] [address] * (ABNORMAL) POCT Glucose (2017 12:32 PM EDT) Glucose, POC 265(H) 65 - 199 mg/dL [facility] Comment: Supplemental ranges: <140 mg/dL before meals <180 mg/dL all other times of the day Blood specimen (specimen) 2017 12:32 PM EDT 2017 12:32 PM EDT Niyah Correa MD POINT OF CARE TEST O VIKKI Performing Organization Address [facility] Co de Phone Number [facility] [place] [address] * XR Elbow 3 views Complete Right [...] (ABNORMAL) POCT Glucose (2017 10:09 AM EDT) [facility] Glucose, POC 329(H) 65 - 199 mg/dL [facility] Comment: Supplemental ranges: <140 mg/dL before meals <180 mg/dL all other times of the day Blood specimen (specimen) 2017 10:09 AM EDT 2017 10:09 AM EDT Niyah Correa MD POINT OF CARE TEST O RDERABLES Performing Organization Address City/[facility]/ZIP Co de Phone Number [facility] [place] [address] * XR Fluoro No Rad <1Hr - OR Use (2017 9:30 AM EDT) Narrative RAD - 2017 9:52 AM EDT This order does not need a radiologist interpretation. ?? Niyah Correa MD IMG FLUORO ORDERABLE S Performing Organization Address City/[facility]/ZIP Co de Phone Number [place], [place] * Senior Chemist Culture (2017 9:00 AM EDT) Senior Chemist Culture No growth [facility] Specimen of unknown material (specimen) RIGHT ELBOW REGION STRUCTURE / Unknown 2017 9:00 AM EDT 2017 9:09 AM EDT Comment:SCREW IMPLANT FROM R ELBOW Narrative Resulting Agency Comment Spec In Lab Niyah Correa MD MICROBIOLOGY - GENER AL ORDERABLES [facility] [place] [place] [address] * Anaerobic Culture (2017 8:40 AM EDT) Anaerobic Culture No anaerobic organisms isolated [facility] Joint specimen (specimen) RIGHT ELBOW REGION STRUCTURE / Unknown 2017 8:40 AM EDT 2017 9:13 AM EDT Comment:#2 JOINT TISSUE SYNO VIUM Narrative Resulting Agency Comment Spec In Lab Niyah Correa MD MICROBIOLOGY - GENER AL ORDERABLES Performing Organization Address [facility]/ZIP Co de Phone Number [facility] [place] [address] * Joint Culture (2017 8:40 AM EDT) Joint Culture No growth at 14 days. [facility] Gram Stain Few White Blood Cells seen No microorganisms seen. Results called to and read back by Patricia Razo [facility] Joint specimen (specimen) RIGHT ELBOW REGION STRUCTURE / Unknown 2017 8:40 AM EDT 2017 9:13 AM EDT Comment:#2 JOINT TISSUE SYNO VIUM Narrative Resulting Agency Comment Spec In Lab Niyah Correa MD MICROBIOLOGY - GENER AL ORDERABLES Performing Organization Address City/[facility]/ZIP Co de Phone Number [facility] [place] [address] * Anaerobic Culture (2017 8:30 AM EDT) Anaerobic Culture No anaerobic organisms isolated [facility] Joint specimen (specimen) RIGHT ELBOW REGION STRUCTURE / Unknown 2017 8:30 AM EDT 2017 9:13 AM EDT Comment:#1 JOINT TISSUE SYNO VIUM Narrative Resulting Agency Comment Spec In Lab Niyah Correa MD MICROBIOLOGY - GENER AL ORDERABLES Performing Organization Address [facility] Co de Phone Number [facility] [place] [address] * Joint Culture (2017 8:30 AM EDT) Joint Culture No growth at 14 days. [facility] Gram Stain No WBC's seen. No microorganisms seen. Results called to and read back by Patricia Razo [facility] Joint specimen (specimen) RIGHT ELBOW REGION STRUCTURE / Unknown 2017 8:30 AM EDT 2017 9:13 AM EDT Comment:#1 JOINT TISSUE SYNO VIUM Narrative Resulting Agency Comment Spec In Lab Niyah Correa MD MICROBIOLOGY - GENER AL ORDERABLES Performing Organization Address [facility] de Phone Number [facility] [place] [address] * (ABNORMAL) POCT Glucose (2017 6:09 AM EDT) Glucose, POC 293(H) 65 - 199 mg/dL [facility] Comment: Supplemental ranges: <140 mg/dL before meals <180 mg/dL all other times of the day Blood specimen (specimen) 2017 6:09 AM EDT 2017 6:09 AM EDT Niyah Correa MD POINT OF CARE TEST O RDERABLES Performing Organization Address City/[facility] Co de Phone Number [facility] [place] [address] documented in this encounter Visit Diagnoses Diagnosis S/P R elbow fusion on 12/14/17 Correa- Primary Closed unspecified dislocation of elbow documented in this encounter Admitting Diagnoses Diagnosis Elbow dislocation Closed unspecified dislocation of elbow documented in this encounter Administered Medications Inactive Administered Medications - up to 3 most recent administrations Medication Order MAR Action Action Date Dose Rate Site ceFAZolin (ANCEF) 1g in dextrose 5% 50mL 1 g, Intravenous, EVERY 8 HOURS, 3 doses, First dose on Tue12/14/17 at 1000, Last dose on Priya 12/15/17 at 0200, Administer over 30 Minutes, Adjust [...] Pattie Wright RN)[id number] (Stopped - Provider: Brittany Abarca RN) glipiZIDE (GLUCOTROL XL) CR tablet 20 [...] mcg, Oral, EVERY MORNING, First dose on Tue12/15/17 at 0600, Until Discontinued, Routine losartan (COZAAR) [...] Routine documented in this encounter Care Teams Junior Business Analyst Relationship Specialty Start Date End Date Maryuri Evans MD [address] [place] [address] PCP - General 09/23/14 documented as of this encounter
--- OUTSIDE RECORDS SUMMARY | 2024-05-31 17:49 | XMS_ITS | Encounter Summary ---
Author Organization [facility] [place] [address] Care Team Providers Care Perioperative Tech Name Role Phone Maryuri Evans MD Primary Care Provider [phone] Reason for Visit * Reason Comments Right Arm Fracture Closed displaced tra nsverse fracture of shaft of right ulna Encounter Details Date Type Department Care Team (Late st Contact Info) Description 11/21/2020 1:15 PM EDT Office [place] [id number] Closed displaced transverse fracture of shaft of right ulna, initial encounter Social History Tobacco Use Types Packs/Day Years Used Date Smoking Tobacco: Never Smokeless Tobacco: Never Alcohol Use Standard Drinks/Week Comments No 0 (1 standard drink = 0.6 oz pur e alcohol) Sex and Gender Information Value Date Recorded Sex Assigned at Not on file Gender Identity Not on file Sexual Orientation Not on file documented as of this encounter Progress Notes * Tomasa Arugello - 11/21/2020 1:15 PM EDT Jesenia Méndez presents to the cast room for cast application per Dr. Correa. The patient's skin isintact. The patient is placed in a well padded fiberglass long arm cast on the right side. The patient tolerated the procedure well. Details on icing, elevation and proper cast care was discussed with the patient. A cast bag was provided to the patient. The patient was given instruction to call theclinic with any questions or concerns. documented in this encounter Plan of Treatment Not on file documented as of this encounter Visit Diagnoses Diagnosis Closed displaced transverse fracture of shaft of right ulna, initial encounter documented in this encounter Care Teams Perioperative Tech Relationship Specialty Start Date End Date Maryuri Evans MD [address] [place] [address] PCP - General 09/23/14 documented as of this encounter
--- OUTSIDE RECORDS SUMMARY | 2024-05-31 17:49 | XMS_ITS | Encounter Summary ---
Author Organization [facility] Address [facility] [place] [address] Care Team Providers Care Quality Process Auditor Name Role Phone Maryuri Evans MD Primary Care Provider [phone] Reason for Visit * Occupational Therapy (Routine) - Specialty Diagnoses / Procedures Referred By Conthyun t Referred To Contact Occupational Therapy Diagnoses Dislocation of elbow, unspecified laterality, subsequent encounter Ilda Shaikh PA [facility] [place] [address] [facility] [address] [place] [address] Referral ID Status Reason Start Date Expiration Date V isits Requested Visits Authorized [id number] Evaluate and Treat 02/02/2018 02/02/2019 12 12 Encounter Details Date Type Department Care Team (Late st Contact Info) Description 02/02/2018 1:30 PM EDT Office Visit Occupational Therapy at [facility] [address] [place] [phone] Tee Durant OT [facility] [place] [address] Dislocation of elbow, unspecified laterality, subsequent encounter [...] as of this encounter Progress Notes * Tee Durant, OT - 02/02/2018 1:30 PM EDT OCCUPATIONAL THERAPY ORTHOTIC EVALUATION Referral Source: Dr. Madeline Germain MD Follow-up: 03/16/14 Total Treatment time: 35 Minutes Timed Code Treatment Time: 35 minutes OCCUPATIONAL PROFILE: Jesenia Méndez is a 57 y.o. year old Right hand dominant female who 2 yearsago had a fall with an elbow fracture in 18 pieces per patient report. She has undergone 6 surgeries with most recent one for a fusion at the elbow. Jesenia Méndez is referred to Occupational Therapy for evaluation and treatment to include fabrication of a custom orthosis. Patient presents today a ccompanied by patient and father. Date of onset of symptoms: 2 years ago 10/27/2015 Date of surgery: Most recent Fusion surgery 2017 Pertinent History and/or Co-morbidities: 1. Dislocation of elbow, unspecified laterality, subsequent encounter Occupation: Not working Vocational status: unemployed Avocational Activities: None mentioned OCCUPATIONAL PERFORMANCE DEFICITS: Jesenia Méndez is limited with current performance due to numbness, stiffness, limited mobility/range of motion and limited strength. Global Mental Function: With gross screening of patient???s global mental functions, patient demonstrates orientation to person, place, time, and situation. Patient???s affect/behavior is appropriateand cooperative today. Pain: (Assessed using the Visual Analog Pain Scale) At Rest: 0/10 With Activity: 0/10 Treatment Today: Orthosis - Elbow Orthotic W/O Jts, Custom, Fit & Adj ([id number]) Educated patient in etiology and biomechanics as related to patient's symptoms Fabricated static posterior elbow orthosis Instructed in orthosis wear and care to be worn at all times except for hygiene Range of Motion Exercises: no range of motion at this time CLINICAL DECISION MAKING: Jesenia Méndez has a well fitting orthosis post therapy. Jesenia Méndez is able to independently verbalize and demonstrate the recommended home program following instructions today. Jesenia was able to dominick and doff the elbow orthosis independently. Jesenia was aware to wear the orthosis at all time for the next 6 weeks except for hygiene purposes when it can be removed.She does not have orders for any exercises at this time. Patient knows to call with any questions or concerns or need for any orthosis adjustments. Short Term Goals (to be met by end of the visit today): Date Goal Met: Today 1. Jesenia Méndez will demonstrate independence with donning and doffing of his orthosis and verbalization of purpose. Goal Status: Meets. Today 2. Jesenia Méndez will be independent with home exercises as evident with demonstration in therapy. Goal Status: Meets PLAN: Jesenia is seen today for orthosis fabrication - one time visit. She is aware to call with any questions or concerns or need for any orthosis adjustments. Jesenia is to follow up with her MD in 6 weeks. (X) Jesenia Méndez participated in the evaluation, collaborated on treatment goals, and agrees tothe treatment plan. documented in this encounter Plan of Treatment Scheduled Referrals Name Type Priority Associated Diagnoses Orde r Schedule Referral to Occupational Therapy Outpatient Referral Routine Dislocation of elbow, unspecified laterality, subsequent encounter Ordered: 02/02/2018 documented as of this encounter Visit Diagnoses Diagnosis Dislocation of elbow, unspecified laterality, subsequent encounter documented in this encounter Care Teams Quality Process Auditor Relationship Specialty Start Date End Date Maryuri Evans MD [address] [place] [address] PCP - General 09/23/14 documented as of this encounter
--- OUTSIDE RECORDS SUMMARY | 2024-05-31 17:49 | XMS_ITS | Encounter Summary ---
Author Organization [facility] Address [facility] [place] [address] Care Team Providers Care Customer Engagement Representative Name Role Phone Maryuri Evans MD Primary Care Provider [phone] Reason for Visit * Reason Comments Follow-up XR continued Righ t elbow pain hx arthrodesis DOS: 12/14/17 DOI 1 month ago two falls on Rt elbow Encounter Details Date Type Department Care Team (Late st Contact Info) Description 11/21/2020 1:20 PM EDT Office [place] [address] Christopher Correa MD [facility] [place] [address] Closed displaced transverse fracture of shaft of [...] Reading Time Taken Comments Blood Pressure 121/74 11/21/2020 1:03 PM EDT Pulse 69 11/21/2020 1:03 PM EDT Temperature - - Respiratory Rate - - Oxygen Saturation - - Inhaled Oxygen Concentration - - Weight 80.7 kg (178 lb) 11/21/2020 1:03 PM EDT Height 154.9 cm (5' 1) 11/21/2020 1:03 PM EDT Body Mass Index 33.63 11/21/2020 1:03 PM EDT documented in this encounter Progress Notes * Christopher Correa MD - 11/21/2020 1:20 PM EDT Jesenia Méndez returns today for follow up of right elbow arthrodesis. She had a fall about 1 month ago in a parking lot. She had severe pain in the arm. She then went home and fell again with evenworsening. The next morning, she went to the local emergency department and was told that everything was fine. She has had pain persisting over the past 4 weeks with swelling in the forearm. On physical examination, the patient is alert, oriented, and in no apparent distress. On exam, she is point tender at the tip of the plate on the ulna. No sign of infection. Incision iswell-healed. No neurovascular deficits that are new. New studies: X-rays demonstrate a mildly displaced fracture at the tip of the plate with early callus formation of the ulna Impression: Ulnar shaft fracture mildly displaced. Plan: We will plan for a long-arm cast to immobilize her. We will have this on for 6 weeks and thenget a new set of x-rays out of cast. This is already starting to heal, so I imagine by that point it should be pretty well-healed. This note was created with [employer] voice recognition software. documented in this encounter Plan of Treatment Not on file documented as of this encounter Visit Diagnoses Diagnosis Closed displaced transverse fracture of shaft of right ulna, initial encounter documented in this encounter Care Teams Customer Engagement Representative Relationship Specialty Start Date End Date Maryuri Evans MD [address] [place] [address] PCP - General 09/23/14 documented as of this encounter
--- OUTSIDE RECORDS SUMMARY | 2024-05-31 17:49 | XMS_ITS | Encounter Summary ---
Author Organization [facility] Address [facility] [place] [address] Care Team Providers Care History Tutor Name Role Phone Maryuri Evans MD Primary Care Provider Encounter Details Date Type Department Care Team (Latest Contact Info) Description 03/16/2018 9:47 AM EDT - 03/16/2018 11:59 PM EDT Hospital Encounter XRay at [address] [place] [address] Christopher Correa MD [facility] [place] [address] Dislocation of elbow, unspecified laterality, subsequent encounter [...] Release (E.C.) Take by mouth. 02/05/2013 02/18/2021 pantoprazole (PROTONIX) 40 mg Tablet, Delayed Release [...] XR ELBOW 3 VIEWS RIGHT (GENERIC) Routine 03/16/2018 10:09 AM EDT Dislocation of elbow, unspecified laterality, subsequent encounter documented in this encounter Results * XR Elbow 3 views Complete Right (Generic) (03/16/2018 10:09 AM EDT) Anatomical Region Laterality Modality Elbow Right Digital Radiogra phy Impressions 03/16/2018 10:35 AM EDT No change since previous study. Post RIGHT elbow arthrodesis. No complication. Narrative 03/16/2018 10:35 AM EDT EXAMINATION: XR ELBOW 3 VIEWS COMPLETE RIGHT (GENERIC) CLINICAL HISTORY: s/p right elbow fusion TECHNIQUE: 4 views RIGHT elbow COMPARISON: 02/02/2018 FINDINGS: As noted previously, previous arthrodesis of the elbow with posterior fixation plate and screw. Stable alignment. 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 Procedure Note Mega Garza MD - 03/16/2018 EXAMINATION: XR ELBOW 3 VIEWS COMPLETE RIGHT (GENERIC) CLINICAL HISTORY: s/p right elbow fusion TECHNIQUE: 4 views RIGHT elbow COMPARISON: 02/02/2018 FINDINGS: As noted previously, previous arthrodesis of the elbow with posteriorfixation plate and screw. Stable alignment. 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 IMPRESSION No change since previous study. Post RIGHT elbow arthrodesis. Nocomplication. 10:35 AM Christopher Correa MD IMG DX ORDERABLES documented in this encounter Visit Diagnoses Diagnosis Dislocation of elbow, unspecified laterality, subsequent encounter documented in this encounter Care Teams History Tutor Relationship Specialty Start Date End Date Maryuri Evans MD [address] [place] [address] PCP - General 09/23/14 documented as of this encounter
--- OUTSIDE RECORDS SUMMARY | 2024-05-31 17:49 | XMS_ITS | Encounter Summary ---
Author Organization [facility] [place] [address] Care Team Providers Care Commercial Fishing Vessel Operator Name Role Phone Maryuri Evans MD Primary Care Provider [phone] Encounter Details Date Type Department Care Team (Late st Contact Info) Description 01/11/2021 Telephone [place] [phone] Omid Fraser MD [facility] [place] [address] Social History Tobacco Use Types Packs/Day Years [...] encounter Miscellaneous Notes * Telephone Encounter - Omid Fraser MD - 01/11/2021 8:13 PM EDT [facility] Dr. Mcleod 60F PMHX DM, depression, hypothyroidism, psoriasis, elbow fusion by Dr. Correa 2018 left ankle fracture dislocation with some skin tenting, splinted, NVI. Pt requested to come to [facility] for further care but the ED at would be unable to provide sedation if required d/t nursing staff limitations. Given this limitation Dr. Mcleod is planning on talking to [facility] for transfer. documented in this encounter Plan of Treatment Not on file documented as of this encounter Visit Diagnoses Not on filedocumented in this encounter Care Teams Commercial Fishing Vessel Operator Relationship Specialty Start Date End Date Maryuri Evans MD [address] [place] [address] PCP - General 09/23/14 documented as of this encounter
--- OUTSIDE RECORDS SUMMARY | 2024-05-31 17:49 | XMS_ITS | Encounter Summary ---
Author Organization [facility] Address [facility] [place] [address] Care Team Providers Care Finishing Department Supervisor Name Role Phone Maryuri Evans MD Primary Care Provider [phone] Encounter Details Date Type Department Care Team (Late st Contact Info) Description 11/22/2017 2:00 PM EDT Notes [place] [address] Social History Tobacco Use Types Packs/Day Years Used Date Smoking Tobacco: Never Smokeless Tobacco: Never Alcohol Use Standard Drinks/Week Comments No 0 (1 standard drink = 0.6 oz pur e alcohol) Sex and Gender Information Value Date Recorded Sex Assigned at Not on file Gender Identity Not on file Sexual Orientation Not on file documented as of this encounter Progress Notes * Kenia Kong - 11/22/2017 2:00 PM EDT Met with Jesenia to discuss step to apply for Social Security disability at the request of the orthopedic team. She is scheduled to have surgery on her elbow for fusion. She is presently living with her mother and father. She is receiving no income. She is presently unable to work. We reviewed where her local social security office is. I provided her with the booklet with information to prepare forthe application process. We then reviewed the application to apply for disability. I recommended making an appointment with her local social security office for assistance completing the application.I provided her with my contact information. I encouraged her to call with any further questions or concerns. documented in this encounter Plan of Treatment Not on file documented as of this encounter Visit Diagnoses Not on filedocumented in this encounter Care Teams Finishing Department Supervisor Relationship Specialty Start Date End Date Maryuri Evans MD [address] [place] [address] PCP - General 09/23/14 documented as of this encounter
--- OUTSIDE RECORDS SUMMARY | 2024-05-31 17:49 | XMS_ITS | Encounter Summary ---
Author Organization [facility] Address [facility] [place] [address] Care Team Providers Care Feed Mixer Name Role Phone Maryuri Evans MD Primary Care Provider [phone] Reason for Visit * Reason Comments Follow Up Surgery s/p R elbow arthrode sis DOS: 12/14/17 Encounter Details Date Type Department Care Team (Late st Contact Info) Description 03/16/2018 11:20 AM EDT Office Visit [place] [address] Ilda Shaikh PA [facility] [place] [address] Dislocation of elbow, unspecified laterality, subsequent encounter [...] Sign Reading Time Taken Comments Blood Pressure 134/67 03/16/2018 11:28 AM EDT Pulse 66 03/16/2018 11:28 AM EDT Temperature - - Respiratory Rate - - Oxygen Saturation - - Inhaled Oxygen Concentration - - Weight 84.8 kg (187 lb) 03/16/2018 11:28 AM EDT stated Height 154.9 cm (5' 1) 03/16/2018 11:28 AM EDT stated Body Mass Index 35.33 03/16/2018 11:28 AM EDT documented in this encounter Progress Notes * Ilda Shaikh PA - 03/16/2018 11:20 AM EDT PATIENT NAME: Jesenia Méndez AGE: 57 y.o. MR#: [id number] DATE OF VISIT: 03/16/2018 DATE OF SURGERY: ??2017 ? SURGERY DESCRIPTION: ?? ARTHRODESIS, ELBOW JOINT WITH AUTOGENOUS GRAFT (WRVU 14.32) (Right) MODIFIER LARGE FRAGMENT SYSTEM SYNTHES (N/A) REMOVAL OF IMPLANT, DEEP, ELBOW (WRVU 5.96) (Right) ? SURGEON: Dr. Correa CHIEF COMPLAINT: follow up 3 months s/p above procedure HISTORY OF PRESENT ILLNESS: Ms. Méndez is a 57 y.o. year old female who comes into clinic today for follow up regarding the right elbow. She is approximately 3 months out from her elbow fusion. Shehas been immobilizing her elbow with a removable posterior splint. She has been taking this off at home, but has been using this for protection in public. She states that her elbow was struck by a door recently and she has had some pain over the proximal ulna. She has not had any crepitus over the elbow. She continues to have some diminished sensation in the ulnar distribution. This has remained fairly constant over the past few months. PHYSICAL EXAM: Ms. Méndez is alert and oriented. She is in no acute discomfort and is resting comfortably in the exam room. Inspection: Well-healed surgical incision. No evidence of infection. No localized erythema, ecchymosis, or swelling. Palpation: She has some tenderness along the distal aspect of her plate where she was struck by thedoor. She is not having any pain over the elbow joint. ROM/Strength: Her elbow remains fused. She can perform wrist and finger range of motion without restriction. There is no ulnar intrinsic atrophy. Neurovascular: She has some diminished sensation in the ulnar distribution, but sensation otherwiseremains intact in the median and radial distributions. Hand is well perfused. She had a negative Tinel's over the cubital tunnel. DIAGNOSTIC STUDIES: X-rays of the right elbow were personally reviewed. Her total elbow effusion remains and stable alignment. There is no evidence of hardware loosening or nonunion. SURVEY RESPONSES: [facility] Surgical Postop Visit 03/16/2018 PROMIS-10 General Health Very Good PROMIS-10 Quality of Life Very Good PROMIS-10 Physical Health Good PROMIS-10 Mental Health Good PROMIS-10 Social Activity Poor PROMIS-10 Everyday Activities A little PROMIS-10 Pain 3 PROMIS-10 Fatigue Mild PROMIS-10 Social Roles Fair PROMIS-10 Anxious or Depressed Always PROMIS PHYSICAL HEALTH SCORE 42.3 PROMIS MENTAL HEALTH SCORE 36.3 Problems with surgical incision/wound after surgery No Gone to ER since knee surgery No Admitted to hospital since recent ortho surgery No Additional surgery on same body part No Satisfaction with Treatment Satisfied Choose Same Treatment Again Probably yes ASSESSMENT: 3 months s/p above procedure PLAN: She is pleased with her elbow pain relief. She was given a Heelbo pad to use for protection as needed. She does not need to use her rigid brace full- time, but may still want to use this for extra protection in public. She will monitor her hand numbness and if this is not improving she will contact us if she would like to schedule nerve conduction studies. She also will contact us if she hasany increased symptoms in the right elbow or new injuries. She will return for follow up as needed.The patient understands to contact us if they have any other questions or concerns. The above documentation was completed using [employer] voice recognition software. documented in this encounter Plan of Treatment Not on file documented as of this encounter Visit Diagnoses Diagnosis Dislocation of elbow, unspecified laterality, subsequent encounter documented in this encounter Care Teams Feed Mixer Relationship Specialty Start Date End Date Maryuri Evans MD [address] [place] [address] PCP - General 09/23/14 documented as of this encounter
--- OUTSIDE RECORDS SUMMARY | 2024-05-31 17:49 | XMS_ITS | Encounter Summary ---
Author Organization [facility] Address [facility] [address] Care Team Providers Care Bell Hole Digger Name Role Phone Maryuri Evans MD Primary Care Provider [phone] Encounter Details Date Type Department Care Team (Late st Contact Info) Description 01/16/2020 6:10 PM EDT Ancillary Procedure Radiology Library at [facility] [place] [place] [address] Christopher Correa MD [facility] [place] [address] Social History Tobacco Use Types Packs/Day Years [...] Diagnosis Comments FILM LIBRARY STORAGE ONLY DX SPINE Routine 01/16/2020 6:08 PM EDT documented in this encounter Results * Film Library- Storage Only DX Spine (01/16/2020 6:08 PM EDT) Narrative FREDA - 01/16/2020 6:08 PM EDT This exam is auto-finalizing. It's purpose is for storage only. Christopher Correa MD IMG FILM LIBRARY ORD ERABLES [place], [place] documented in this encounter Visit Diagnoses Not on filedocumented in this encounter Care Teams Bell Hole Digger Relationship Specialty Start Date End Date Maryuri Evans MD [address] [place] [address] PCP - General 09/23/14 documented as of this encounter
--- OUTSIDE RECORDS SUMMARY | 2024-05-31 17:49 | XMS_ITS | Encounter Summary ---
Author Organization [facility] [place] [address] Care Team Providers Care Child Care Specialist Name Role Phone Maryuri Evans MD Primary Care Provider [phone] Encounter Details Date Type Department Care Team (Late st Contact Info) Description 02/07/2021 Telephone [place] [phone] Omid Fraser MD [facility] [place] [address] Social History Tobacco Use Types Packs/Day Years [...] Telephone Encounter - Omid Fraser MD - 02/07/2021 12:39 PM EDT Patient reports right arm cast. Reports the cast to be a tight. Recommended she come to the ED at [facility] for evaluation and likely cast change. documented in this encounter Plan of Treatment Not on file documented as of this encounter Visit Diagnoses Not on filedocumented in this encounter Care Teams Child Care Specialist Relationship Specialty Start Date End Date Maryuri Evans MD [address] [place] [address] PCP - General 09/23/14 documented as of this encounter
--- OUTSIDE RECORDS SUMMARY | 2024-05-31 17:49 | XMS_ITS | Encounter Summary ---
Author Organization [facility] Address [facility] [place] [address] Care Team Providers Care Field Representative Name Role Phone Maryuri Evans MD Primary Care Provider [phone] Encounter Details Date Type Department Care Team (Latest Contact Info) Description 01/02/2021 10:09 AM EDT - 01/02/2021 11:59 PM EDT Hospital Encounter XRay at [address] [place] [address] Dorina Campbell APRN [facility] [place] [address] Closed displaced transverse fracture of shaft of [...] XR ELBOW 3 VIEWS RIGHT (GENERIC) Routine 01/02/2021 10:22 AM EDT Closed displaced transverse fracture of shaft of right ulna, initial encounter Dislocation of elbow, unspecified laterality, sequela Pain in right elbow documented in this encounter Results * XR [...] who have questions please contact the health nurse wound care that requested your imaging first. ? Narrative 01/02/2021 10:27 AM EDT EXAMINATION: XR [...] patients who have questions please contactthe health nurse wound care that requested your imaging first. Dorina Campbell APRN IMG DX ORDERABLES documented in this encounter Visit Diagnoses Diagnosis Closed displaced transverse fracture of shaft of right ulna, initial encounter Dislocation of elbow, unspecified laterality, sequela Pain in right elbow Pain in joint, upper arm documented in this encounter Care Teams Field Representative Relationship Specialty Start Date End Date Maryuri Evans MD [address] [place] [address] PCP - General 09/23/14 documented as of this encounter
--- OUTSIDE RECORDS SUMMARY | 2024-05-31 17:49 | XMS_ITS | Encounter Summary ---
Author Organization [facility] [place] [address] Care Team Providers Care Sonar Watchstander Name Role Phone Maryuri Evans MD Primary Care Provider [phone] Encounter Details Date Type Department Care Team (Late st Contact Info) Description 2017 Orders [place] [phone] Kimberly Pendleton RN Dislocation of elbow, unspecified laterality, subsequent encounter [...] encounter documented in this encounter Care Teams Sonar Watchstander Relationship Specialty Start Date End Date Maryuri Evans MD [address] [place] [address] PCP - General 09/23/14 documented as of this encounter
--- OUTSIDE RECORDS SUMMARY | 2024-05-31 17:49 | XMS_ITS | Encounter Summary ---
Author Organization [facility] Address [facility] [place] [address] Care Team Providers Care Polysomnograph Tech Name Role Phone Maryuri Evans MD Primary Care Provider [phone] Encounter Details Date Type Department Care Team (Latest Contact Info) Description 02/02/2018 10:05 AM EDT - 02/02/2018 11:59 PM EDT Hospital Encounter XRay at [address] [place] [address] Christopher Correa MD [facility] [place] [address] Dislocation of elbow, unspecified laterality, subsequent encounter [...] Release (E.C.) Take by mouth. 02/05/2013 02/18/2021 naproxen (NAPROSYN) 500 mg Tablet 2 times daily. 3 12/31/2017 02/18/2021 pantoprazole (PROTONIX) 20 mg Tablet, Delayed Release [...] XR ELBOW 3 VIEWS RIGHT (GENERIC) Routine 02/02/2018 10:17 AM EDT Dislocation of elbow, unspecified laterality, [...] encounter documented in this encounter Care Teams Polysomnograph Tech Relationship Specialty Start Date End Date Maryuri Evans MD [address] [place] [address] PCP - General 09/23/14 documented as of this encounter
--- OUTSIDE RECORDS SUMMARY | 2024-05-31 17:49 | XMS_ITS | Encounter Summary ---
Author Organization [facility] Address [facility] [place] [address] Care Team Providers Care Professor Of Graphic Design Name Role Phone Maryuri Evans MD Primary Care Provider [phone] Reason for Referral * Occupational Therapy (Routine) - Specialty Diagnoses / Procedures Referred By Contac t Referred To Contact Occupational Therapy Diagnoses Dislocation of elbow, unspecified laterality, subsequent encounter Ilda Shaikh PA [facility] [place] [address] [facility] [address] [place] [address] Referral ID Status Reason Start Date Expiration Date V isits Requested Visits Authorized [id number] Evaluate and Treat 02/02/2018 02/02/2019 12 12 Reason for Visit * Reason Comments Follow Up Surgery s/p R elbow arthrode sis DOS: 12/14/17 Encounter Details Date Type Department Care Team (Late st Contact Info) Description 02/02/2018 11:40 AM EDT Office [place] [address] Christopher Correa MD [facility] [place] [address] Dislocation of elbow, unspecified laterality, subsequent encounter [...] Sign Reading Time Taken Comments Blood Pressure 142/65 02/02/2018 10:47 AM EDT Pulse 79 02/02/2018 10:47 AM EDT Temperature - - Respiratory Rate - - Oxygen Saturation - - Inhaled Oxygen Concentration - - Weight 84.8 kg (187 lb) 02/02/2018 10:47 AM EDT stated Height 154.9 cm (5' 1) 02/02/2018 10:47 AM EDT stated Body Mass Index 35.33 02/02/2018 10:47 AM EDT documented in this encounter Progress Notes * Delfina Tee - 02/02/2018 11:40 AM EDT Jesenia Méndez presents to the clinic for a cast off per Dr. Correa. The cast was intact upon arrival. The patient was explained how the cast saw works and the cast was removed. The patient toleratedthis procedure well. The patient's skin was intact.The patient was then sent to x-ray. * Ilda Shaikh PA - 02/02/2018 11:40 AM EDT PATIENT NAME: Jesenia Méndez AGE: 57 y.o. MR#: [id number] DATE OF VISIT: 02/02/2018 DATE OF SURGERY: 2017 ?? SURGERY DESCRIPTION: ARTHRODESIS, ELBOW JOINT WITH AUTOGENOUS GRAFT (WRVU 14.32) (Right) MODIFIER LARGE FRAGMENT SYSTEM SYNTHES (N/A) REMOVAL OF IMPLANT, DEEP, ELBOW (WRVU 5.96) (Right) ?? SURGEON: Dr. Correa CHIEF COMPLAINT: follow up 7 weeks s/p above procedure HISTORY OF PRESENT ILLNESS: Ms. Méndez is a 57 y.o. year old female who comes into clinic today for follow up regarding the right elbow. She is approximately 7 weeks out from her right elbow fusion. She has been immobilized in a long arm cylinder cast. Her cast was removed for x-rays today. She has been doing well since her last visit. She is not having any significant pain in her elbow. She has noticed some persistent numbness in the ulnar distribution following surgery. She states that thisremains unchanged. She has not had any fevers or chills. PHYSICAL EXAM: Ms. Méndez is alert and oriented. She is in no acute discomfort and is resting comfortably in the exam room. Inspection: Her surgical incision is well-healed. She has some irritation over the ulnar aspect of her wrist from her cast. Palpation: She is not having any point tenderness over the elbow. There is no palpable crepitus. ROM/Strength: There is no elbow motion. She can perform wrist and finger range of motion without significant difficulty. There is no ulnar intrinsic atrophy. Neurovascular: He has some diminished sensation in the ulnar distribution, but sensation is otherwise intact in the median and radial distributions. Hand is well perfused. DIAGNOSTIC STUDIES: X-rays of the right elbow were personally reviewed. There is no evidence of complication following her right elbow fusion. There is evidence of healing, but the fusion is not fully healed just yet. SURVEY RESPONSES: [facility] Non-surgical Followup Visit 12/28/2017 PROMIS-10 General Health Good PROMIS-10 Quality of Life Good PROMIS-10 Physical Health Good PROMIS-10 Mental Health Good PROMIS-10 Social Activity Fair PROMIS-10 Everyday Activities A little PROMIS-10 Pain 7 PROMIS-10 Fatigue Mild PROMIS-10 Social Roles Fair PROMIS-10 Anxious or Depressed Sometimes PROMIS PHYSICAL SCORE (range 16-68) 37.4 PROMIS MENTAL SCORE (range 21-68) 41.1 Treatments Tried - Prior Surgery - Satisfaction with Treatment Satisfied Choose Same Treatment Again Definitely yes ASSESSMENT: 7 weeks following right elbow fusion PLAN: I reviewed the x-rays with the patient today. She does not need any additional cast immobilization. We will see about having her see occupational therapy today to have a custom posterior splintmade. Her wrist can be free. She may remove the splint for showering, but otherwise should wear thesplint for protection during activity. We recommended at least 6 weeks of additional immobilizationor until her fusion is solidly healed. She will return for follow up in 6 weeks with repeat x-rays.We will continue to monitor her hand numbness. The patient understands to contact us if they have any other questions or concerns. The above documentation was completed using [employer] voice recognition software. documented in this encounter Plan of Treatment Scheduled Referrals Name Type Priority Associated Diagnoses Orde r Schedule Referral to Occupational Therapy Outpatient Referral Routine Dislocation of elbow, unspecified laterality, subsequent encounter Ordered: 02/02/2018 documented as of this encounter Results * [...] encounter documented in this encounter Care Teams Professor Of Graphic Design Relationship Specialty Start Date End Date Maryuri Evans MD [address] [place] [address] PCP - General 09/23/14 documented as of this encounter
--- OUTSIDE RECORDS SUMMARY | 2024-05-31 17:49 | XMS_ITS | Encounter Summary ---
Author Organization [facility] Address [facility] [place] [address] Care Team Providers Care Shell Core And Molding Supervisor Name Role Phone Maryuri Evans MD Primary Care Provider Reason for Visit * Auth/Cert Specialty Diagnoses / Procedures Referred By Keith t Referred To Contact Diagnoses Abscess of ankle Ankle abscess Procedures Emergency IPI Referral ID Status Reason Start Date Expiration Date Visits Re quested Visits Authorized [id number] 1 1 Encounter Details Date Type Department Care Team (Latest Contact Info) Description 02/06/2021 11:13 AM EDT - 02/06/2021 11:59 PM EDT Hospital Encounter XRay at [address] [place] [address] Dorina Campbell, [facility] [place] [address] Closed displaced transverse fracture of shaft of [...] chloride (sodium chloride 0.9%) Parenteral Solution 02/03/2021 12/30/2021 acetaminophen (Tylenol) 500 mg Tablet Take 1,000 mg by mouth Every 6 hours as needed. 01/21/2021 021 aspirin EC 81 mg Tablet, Delayed Release [...] XR ELBOW 3 VIEWS RIGHT (GENERIC) Routine 02/06/2021 11:22 AM EDT Closed displaced transverse fracture of [...] who have questions please contact the health care director that requested your imaging first. ? Narrative [...] patients who have questions please contactthe health care director that requested your imaging first. Dorina Campbell WEAVE ROOM SUPERVISOR IMG DX ORDERABLES documented in this encounter Visit Diagnoses Diagnosis Closed displaced transverse fracture of shaft of right ulna with routine healing, subsequent encounter documented in this encounter Care Teams Shell Core And Molding Supervisor Relationship Specialty Start Date End Date Maryuri Evans MD [address] [place] [address] PCP - General 09/23/14 documented as of this encounter
--- OUTSIDE RECORDS SUMMARY | 2024-05-31 17:49 | XMS_ITS | Encounter Summary ---
Author Organization [facility] [place] [address] Care Team Providers Care Pay Station Department Manager Name Role Phone Maryuri Evans MD Primary Care Provider [phone] Reason for Referral * Physical Therapy (Routine) - Closed Specialty Diagnoses / Procedures Referred By Keith yung Referred To Contact Diagnoses Tendinitis of left rotator cuff Aimee Mccurdy MD [facility] DR [place] [address] Referral ID Status Reason Start Date Expiration Date V isits Requested Visits Authorized [id number] Closed Evaluate and Treat 03/06/2020 09/02/2020 12 12 Reason for Visit * Reason Comments Left Shoulder Pain NXR (XR in eDH) L shoulder pain - 2008 fx and RTCR x2) - 2nd opinion * Consultation (Routine) - Specialty Diagnoses / Procedures Referred By Keith yung Referred To Contact Orthopaedics Diagnoses Pain in left shoulder Left Shoulder Pain/(2008 Fx the ball of shoulder torn rotator cuff surgery X2) has pain now in the arm starting at the shoulder Maryuri Evans MD [address] [place] [address] [facility] [address] [place] [id number] Referral ID Status Reason Start Date Expiration Date V isits Requested Visits Authorized [id number] Consult, Test & Treat [facility] PCP Updated and/or Approved 01/17/2020 01/16/2021 6 6 Encounter Details Date Type Department Care Team (Late st Contact Info) Description 03/06/2020 11:00 AM EDT Office [place] [address] Christopher Correa MD [facility] [place] [address] Chronic pain in left shoulder; Tendinitis of left rotator cuff; Biceps tendinitis of left upper extremity Social History Tobacco Use Types Packs/Day Years [...] Sign Reading Time Taken Comments Blood Pressure 127/67 03/06/2020 10:37 AM EDT Pulse 80 03/06/2020 10:37 AM EDT Temperature - - Respiratory Rate - - Oxygen Saturation - - Inhaled Oxygen Concentration - - Weight 80.7 kg (178 lb) 03/06/2020 10:37 AM EDT Height 154.9 cm (5' 1) 03/06/2020 10:37 AM EDT Body Mass Index 33.63 03/06/2020 10:37 AM EDT documented in this encounter Progress Notes * Aimee Mccurdy MD - 03/06/2020 11:00 AM EDT Orthopaedic Surgery Clinic Note PATIENT NAME: Jesenia Méndez DATE OF VISIT: 03/06/20 CHIEF COMPLAINT: Chief Complaint Patient presents with ??? Left Shoulder Pain NXR (XR in eDH) L shoulder pain - 2008 fx and RTCR x2) - 2nd opinion HPI: Jesenia Méndez is a 59 y.o. female known to the orthopedic clinic after she underwent a right elbow fusion with Dr. Correa several years ago. She presents today in referral from her primary carephysician regarding left shoulder pain that has been worse over the last 5 months. Of note she had a prior procedure on that side which she describes as a fracture of the humeral head associated witha rotator cuff tear and a possible distal clavicle excision done by Dr. Lopez at [facility] in December be 2007 or 2008. She has trouble recalling the exact date. She did well for her. After that; however, she is struggled with pain more recently and is taking Vicodin for pain she said the Tylenol and ibuprofen did not work that well. She has not done any formal physical therapy. She has not tried injectio ns. She notes that her pain is both in the front and on the back as well as on the side. She describes some episodes of numbness and tingling into the entire arm that do not follow a particular distribution. PAST MEDICAL HISTORY: No past medical history on file. PAST SURGICAL HISTORY: Past Surgical History: Procedure Laterality Date ??? PRO ALVEOLOPLASTY W EXTRACTIONS, 4 OR MORE TEETH, PER QUADRANT N/A 09/11/2019 ALVEOPLASTY,IN CONJUNCTION WITH EXTRACTIONS,PER QUADRANT,ENT (WRVU 4.06) performed by Wesley Jacobo MD at [facility] ??? PRO FUSION/GRAFT OF ELBOW JOINT Right 2017 ARTHRODESIS, ELBOW JOINT WITH AUTOGENOUS GRAFT (WRVU 14.32) performed by Christopher Correa MD at [facility] OR ??? PRO REMOVAL DEEP IMPLANT Right 2017 REMOVAL OF IMPLANT, DEEP, ELBOW (WRVU 5.96) performed by Christopher Correa MD at [facility] MAIN OR ??? PRO REMOVAL ERUPTED TOOTH WITH ELEVATION OF MUCOPERIOSTEAL FLAP Bilateral 09/11/2019 SURGICAL EXTRACTIONS REQUIRING ELEVATION OF MUCOPERIOSTEAL FLAP AND REMOVAL OF BONE OR SECTION OF TOOTH (WRVU 1.09) performed by Wesley Jacobo MD at [facility] FAMILY HISTORY: Family History Problem Relation Age of Onset ??? Chronic Obstructive Pulmonary Disease Mother ??? Emphysema Mother ??? Diabetes Mother ??? Heart Disease Father ??? Diabetes Father ??? Diabetes Maternal Grandmother ??? Pancreatic Cancer Maternal Grandmother ?? SOCIAL HISTORY: Social History Socioeconomic History ??? Marital status: Spouse name: Not on file ??? Number of children: Not on file ??? Years of education: Not on file ??? Highest education level: Not on file Occupational History ??? Not on file Social Needs ??? Financial resource strain: Not on file ??? Food insecurity Worry: Not on file Inability: Not on file ??? Transportation needs Medical: Not on file Non-medical: Not on file Tobacco Use ??? Smoking status: Never Smoker ??? Smokeless tobacco: Never Used Substance and Sexual Activity ??? Alcohol use: No ??? Drug use: No ??? Sexual activity: Not on file Lifestyle ??? Physical activity Days per week: Not on file Minutes per session: Not on file ??? Stress: Not on file Relationships ??? Social connections Talks on phone: Not on file Gets together: Not on file Attends yazidi service: Not on file Active member of club or organization: Not on file Attends meetings of clubs or organizations: Not on file Relationship status: Not on file ??? Intimate partner violence Fear of current or ex partner: Not on file Emotionally abused: Not on file Physically abused: Not on file Forced sexual activity: Not on file Other Topics Concern ??? Not on file Social History Narrative ??? Not on file MEDICATIONS and ALLERGIES: As reviewed in eDH PHYSICAL EXAM: Awake, alert, oriented and in no acute distress Breathing comfortably on room air. Left shoulder exam: Active range of motion: forward elevation to 170 degrees, internal rotation to level of T7, external rotation to 60 degrees past neutral Passive range of motion: forward elevation to 180 degrees, internal rotation to 5 degrees past neutral with the shoulder abducted, external rotation to 70 degrees Subscap lift off negative, [place]'s negative, impingement sign positive, biceps tendon tender 5/5 strength with resisted IR, ER, abduction, and adduction Sensation intact in axillary, radial, median, and ulnar distributions 2+ radial pulse, brisk capillary refill distally Endorses tingling in all 5 fingers with stimulation of the ulnar nerve at the cubital tunnel. No symptoms with median nerve compression or percussion. Tenderness to palpation along the scapular spineand over the AC joint as well as focally in the muscle of the deltoid and along the course of the biceps tendon. IMAGING: Radiographs of the left shoulder demonstrate intact hardware from her prior procedure. Her x-rays do not appear to demonstrate that a distal clavicle excision was performed. No fracture or dislocation. Mild degenerative changes. ASSESSMENT and PLAN: Jesenia Méndez is a 59 y.o. female who presents for evaluation of left shoulder pain in the setting of prior surgery consistent with AC arthropathy, impingement, biceps tendinitis, and scapular dyskinesia. We discussed options for treatment including oral anti-inflammatories.At this juncture, we reviewed that we think physical therapy would likely be of most benefit to her. Given her unclear neurologic picture, we discussed the possibility of performing a EMG study however at this juncture she does not feel it is necessary to pursue that. We will plan to refer her to physical therapy to work on scapular stabilization and rotator cuff strengthening. She will plan to return to clinic should her symptoms not improve. Her questions and concerns were otherwise addressedand answered. Attending Addendum: The preceding portion of this note was written by Dr. Mccurdy. I personally saw and evaluated the patient as well and I agree with the assessment and plan documented above. Christopher Correa M.D., M.S. Oracle Analyst of Orthopaedic Surgery Shoulder, Elbow, and Sports Medicine Department of Orthopaedic Surgery [place] [phone] documented in this encounter Plan of Treatment Scheduled Referrals Name Type Priority Associated Diagnoses Orde r Schedule Referral to Physical Therapy Outpatient Referral Routine Tendinitis of left rotator cuff Ordered: 03/06/2020 documented as of this encounter Visit Diagnoses Diagnosis Chronic pain in left shoulder Pain in joint, shoulder region Tendinitis of left rotator cuff Disorders of bursae and tendons in shoulder region, unspecified Biceps tendinitis of left upper extremity documented in this encounter Care Teams Pay Station Department Manager Relationship Specialty Start Date End Date Maryuri Evans MD [address] [place] [address] PCP - General 09/23/14 documented as of this encounter
--- OUTSIDE RECORDS SUMMARY | 2024-05-31 17:50 | XMS_ITS | Encounter Summary ---
Author Organization [facility] Address [facility] [place] [address] Care Team Providers Care Cadmium Plater Name Role Phone Maryuri Evans MD Primary Care Provider [phone] Encounter Details Date Type Department Care Team (Latest Contact Info) Description 02/17/2016 - 02/17/2016 11:59 PM EDT Hospital Encounter [facility] [place] [address] Christopher Correa MD [facility] [place] [address] Discharge Disposition: Home Social History Tobacco Use Types Packs/Day Years Used Date Smoking Tobacco: Never Sex and Gender Information Value Date Recorded Sex Assigned at Not on file Gender Identity Not on file Sexual Orientation Not on file documented as of this encounter Medications at Time of Discharge Medication Sig Dispensed Refills Start Date End Date multivitamin Capsule Take by mouth. 12/10/201511/21 aspirin EC 81 mg Tablet, Delayed Release (E.C.) Take by mouth. 02/05/2013 02/18/2021 levothyroxine (SYNTHROID) 100 mcg Tablet Take 100 mcg by mouth daily. 12/28/2017 insulin glargine (LANTUS) Solution Inject subcutaneously nightly. 02/08/2021 aspirin 81 mg Tablet, Delayed Release (E.C.) Take 81 mg by mouth daily. 2017 documented as of this encounter Plan of Treatment Not on file documented as of this encounter Procedures Procedure Name Priority Date/Time Associated Diagnosis Comments FILM LIBRARY STORAGE ONLY DX ELBOW Routine 02/17/2016 12:00 AM EDT documented in this encounter Results * Film Library- Storage Only DX Elbow (02/17/2016 12:00 AM EDT) Narrative FREDA - 09/23/2017 1:42 PM EST This exam is for storage only and is auto-finalizing. Christopher Correa MD IM FILM LIBRARY ORD ERABLES Performing Organization Address City/State/[facility] Co de Phone Number [place], [place] documented in this encounter Visit Diagnoses Not on filedocumented in this encounter Care Teams Cadmium Plater Relationship Specialty Start Date End Date Maryuri Evans MD [address] [place] [address] PCP - General 09/23/14 documented as of this encounter
--- OUTSIDE RECORDS SUMMARY | 2024-05-31 17:50 | XMS_ITS | Encounter Summary ---
Author Organization [facility] Address [facility] [place] [address] Care Team Providers Care Regrinder Name Role Phone Maryuri Evans MD Primary Care Provider [phone] Encounter Details Date Type Department Care Team (Latest Contact Info) Description 01/19/2017 - 01/19/2017 11:59 PM EDT Hospital Encounter Radiology Library at [facility] [place] [address] Christopher Correa MD [facility] [place] [address] Discharge Disposition: Home Social History Tobacco Use [...] FILM LIBRARY STORAGE ONLY DX ELBOW Routine 01/19/2017 12:00 AM EDT documented in this encounter Results * Film Library- Storage Only DX Elbow (01/19/2017 12:00 AM EDT) Narrative FREDA - 09/23/2017 1:50 PM EST This exam is for storage only and is auto-finalizing. Christopher Correa MD IM FILM LIBRARY ORD ERABLES Performing Organization Address City/State/[facility] Co de Phone Number [place], [place] documented in this encounter Visit Diagnoses Not on filedocumented in this encounter Care Teams Regrinder Relationship Specialty Start Date End Date Maryuri Evans MD [address] [place] [address] PCP - General 09/23/14 documented as of this encounter
--- OUTSIDE RECORDS SUMMARY | 2024-05-31 17:50 | XMS_ITS | Encounter Summary ---
Author Organization [facility] Address [address] [place] [address] Care Team Providers Care Tube Operator Name Role Phone Maryuri Evans MD Primary Care Provider [phone] Encounter Details Date Type Department Care Team (Late st Contact Info) Description 01/26/2021 Orders Only [facility] Orthopedic Trauma - [address] [address] Mable Jones RN Social History Tobacco Use Types Packs/Day Years Used Date Smoking Tobacco: Never Smokeless Tobacco: Never Alcohol Use Standard Drinks/Week Comments Not Currently 0 (1 standard drink = 0.6 oz pur e alcohol) A beer once in blue askew Interpersonal Safety Answer Date Record ed Physically Hurt Never 01/11/2021 Verbally Threaten Not on file 01/11/2021 Sex and Gender Information Value Date Recorded Sex Assigned at Not on file Gender Identity Female 01/11/2021 23:02 EDT Sexual Orientation Not on file COVID-19 Exposure Response Date Recorded In the last month, have you been in contact with someone who was confirmed or suspected to have Coronavirus / COVID-19? No / Unsure 01/21/2021 5:46 EDT documented as of this encounter Functional Status Functional Status Response Date of Assess ment Because of a physical, menta l, or emotional condition, does this person have difficulty doing errands alone such as visiting a doctor's office or shopping? Yes 01/13/2021 Cognitive Status Response Date of Assessm ent Because of a physical, menta l, or emotional condition, does this person have serious difficulty concentrating, remembering, or making decisions? No 01/13/2021 documented as of this encounter Ordered Prescriptions Prescription Sig Dispensed Refills Start Date End Da te oxyCODONE (ROXICODONE) 5 mg immediate release tablet Take 1 Tab by mouth every 6 hours as needed for Pain. Daily Max: 20 mg 20 Tab 01/26/2021 documented in this encounter Progress Notes * Mable Jones, RN - 01/26/2021 1503 EDT Jesenia called asking for a refill on her oxycodone. She has been taking every 6 hrs, along with Tylenol and advil regularly. She states by the time she is taking her oxycodone she feels like her pain is close to a 8-10. She is icing elevating and resting as well. Her sx was on 6.2.21. Will discuss and pend to Dr. Martin who is in the office today. The [place] Prescription Monitoring System query has been completed per the following requirement(s): Replacement Prescription. documented in this encounter Plan of Treatment Not on file documented as of this encounter Visit Diagnoses Not on filedocumented in this encounter Discontinued Medications Medication Sig Discontinue Reason Start Date End Da te oxyCODONE (ROXICODONE) 5 mg immediate release tablet Take 1 Tab by mouth every 6 hours as needed for Pain. Daily Max: 20 mg Reorder 01/21/2021 01/26/2021 documented as of this encounter Care Teams Tube Operator Relationship Specialty Start Date End Date Maryuri Evans MD [address] [place] [address] PCP - General 01/11/21 documented as of this encounter
--- OUTSIDE RECORDS SUMMARY | 2024-05-31 17:50 | XMS_ITS | Encounter Summary ---
Author Organization [facility] Address [address] [place] [address] Care Team Providers Care Oil Paint Shader Name Role Phone Maryuri Evans MD Primary Care Provider [phone] Reason for Referral * Radiology Services (Routine/Next Available) - Closed Specialty Diagnoses / Procedures Referred By Contac t Referred To Contact Diagnoses Closed fracture of left ankle with routine healing Procedures XR ANKLE LEFT 3 OR MORE VIEWS William Donald MD [address] [place] [address] Referral ID Status Reason Start Date Expiration Date Visits Re quested Visits Authorized [id number] Closed 02/03/2021 1 1 Reason for Visit * Radiology Services (Routine/Next Available) - Closed Specialty Diagnoses / Procedures Referred By Contac t Referred To Contact Diagnoses Closed fracture of left ankle with routine healing Procedures XR ANKLE LEFT 3 OR MORE VIEWS William Donald MD [address] [place] [address] Referral ID Status Reason Start Date Expiration Date Visits Re quested Visits Authorized [id number] Closed 02/03/2021 1 1 Encounter Details Date Type Department Care Team (Latest Contact Info) Description 02/03/2021 14:40 EDT - 02/03/2021 23:59 EDT Hospital Encounter [facility] Xray [address] [place] [address] Closed fracture of left ankle with routine healing Discharge Disposition: Home or Self Care Social History Tobacco Use Types Packs/Day Years [...] No 01/13/2021 documented as of this encounter Medications at Time of Discharge Medication Sig Dispensed Refills Start Date End Date acetaminophen (TYLENOL) 500 mg tablet Take 2 Tabs by mouth every 6 hours as needed for Pain. 01/21/2021 aspirin chewable 81 mg tablet Take 81 mg by mouth daily. calcium carbonate (CALCIUM 600 ORAL)Indications:With Vit D Take 600 mg by mouth daily. cyclobenzaprine (FLEXERIL) 10 mg tablet Take 5 mg by mouth 3 times daily as needed for Muscle Spasms. glyBURIDE (DIABETA) 5 mg tablet Take 20 mg by mouth daily with breakfast. hydrOXYzine (ATARAX) 25 mg tablet Take 50 mg by mouth 2 times daily as needed (Migraines). insulin glargine (LANTUS SOLOSTAR) 100 unit/mL (3 mL) injection pen Inject 25 Units into the skin at bedtime. levothyroxine (SYNTHROID) 50 mcg tablet Take 50 mcg by mouth daily. liraglutide (VICTOZA 3-LISANDRA) 0.6 mg/0.1 mL (18 mg/3 mL) injectable pen Inject 1.2 mg into the skin daily. losartan (COZAAR) 25 mg tablet Take 25 mg by mouth at bedtime. naproxen (NAPROSYN) 375 mg tabletIndications:headac he disorder Take 375 mg by mouth 2 times daily. oxyCODONE (ROXICODONE) 5 mg immediate release tablet Take 1 Tab by mouth every 6 hours as needed for Pain. Daily Max: 20 mg 20 Tab 01/26/2021 sertraline (ZOLOFT) 50 mg tablet Take 200 mg by mouth daily. topiramate (TOPAMAX) 25 mg tabletIndications:migrai ne prevention Take 50 mg by mouth 2 times daily. traMADol (ULTRAM) 50 mg tablet Take 1 Tablet by mouth every 8 hours as needed for up to 7 days for Pain. Daily Max: 150 mg 21 Tablet 02/03/2021 02/10/2021 documented as of this encounter Discharge Disposition Disposition Code Departure Means Destination Home or Self Care documented in this encounter Plan of Treatment Not on file documented as of this encounter Procedures Procedure Name Priority Date/Time Associated Diagnosis Comments XR ANKLE LEFT 3 OR MORE VIEWS Routine 02/03/2021 15:03 EDT Closed fracture of left ankle with routine healing documented in this encounter Results * XR ANKLE LEFT 3 OR MORE VIEWS (02/03/2021 15:03 EDT) Anatomical Region Laterality Modality Lower Extremities, Ankle Left Compute d Radiography 02/04/2021 9:59 EDT Impressions 02/04/2021 9:59 EDT FINDINGS / IMPRESSION: 3 nonweightbearing views of the left ankle demonstrate changes from interval ORIF of the distal fibula, screw fixation of the distal tibia and stabilization of the distal tibiofibular syndesmosis. There is no evidence of hardware complication. Posttraumatic irregularity of the medial tibial malleolus is also redemonstrated. Narrative 02/04/2021 9:59 EDT EXAM/TECHNIQUE: XR ANKLE LEFT 3 OR MORE VIEWS ??02/03/2021 2:45 PM HISTORY: ?? Assess healing COMPARISON: Radiographs 01/13/2021. Procedure Note Jaime Maher, DO - 02/04/2021 EXAM/TECHNIQUE: XR ANKLE LEFT 3 OR MORE VIEWS 02/03/2021 2:45 PM HISTORY: Assess healing COMPARISON: Radiographs 01/13/2021. IMPRESSION FINDINGS / IMPRESSION: 3 nonweightbearing views of the left ankle demonstrate changes frominterval ORIF of the distal fibula, screw fixation of the distal tibia andstabilization of the distal tibiofibular syndesmosis. There is no evidenceof hardware complication. Posttraumatic irregularity of the medial tibialmalleolus is also redemonstrated. William Donald MD IMG DIAGNOSTIC I MAGING ORDERABLES documented in this encounter Visit Diagnoses Diagnosis Closed fracture of left ankle with routine healing documented in this encounter Care Teams Oil Paint Shader Relationship Specialty Start Date End Date Maryuri Evans MD [address] [place] [address] PCP - General 01/11/21 documented as of this encounter
--- OUTSIDE RECORDS SUMMARY | 2024-05-31 17:50 | XMS_ITS | Encounter Summary ---
Author Organization [facility] Address [address] [place] [address] Care Team Providers Care Coach Professional Athletes Name Role Phone Maryuri Evans MD Primary Care Provider [phone] Encounter Details Date Type Department Care Team (Late st Contact Info) Description 04/13/2021 Abstract [facility] Sports Medicine Program - [address] [address] William Donald MD [address] [place] [address] Social History Tobacco Use Types Packs/Day Years Used Date Smoking Tobacco: Never Smokeless Tobacco: Never Alcohol Use Standard Drinks/Week Comments Not Currently 0 (1 standard drink = 0.6 oz pur e alcohol) A beer once in blue askwe Interpersonal Safety Answer Date Record ed Physically Hurt Never 01/11/2021 Verbally Threaten Not on file 01/11/2021 Sex and Gender Information Value Date Recorded Sex Assigned at Not on file Gender Identity Female 01/11/2021 23:02 EDT Sexual Orientation Not on file documented as of this encounter Functional Status [...] No 01/13/2021 documented as of this encounter Plan of Treatment Not on file documented as of this encounter Visit Diagnoses Not on filedocumented in this encounter Care Teams Coach Professional Athletes Relationship Specialty Start Date End Date Mayruri Evans MD [address] [place] [address] PCP - General 01/11/21 documented as of this encounter
--- OUTSIDE RECORDS SUMMARY | 2024-05-31 17:50 | XMS_ITS | Encounter Summary ---
Author Organization [facility] Address [address] [place] [address] Care Team Providers Care Barrel Rifler Hook Name Role Phone Maryuri Evans MD Primary Care Provider [phone] Encounter Details Date Type Department Care Team (Late st Contact Info) Description 12/05/2021 Lab Requisition [facility] Pathology & Laboratory Medicine - [address] [address] Outr Resulting Lab, Provider Social History Tobacco Use Types Packs/Day Years [...] Procedure Name Priority Date/Time Associated Diagnosis Comments CAIN ANTIBODY PANEL Routine 12/04/2021 11 :30 EDT DOUBLE STRANDED DNA ANTIBODY, IGG Routine 12/04/2021 11:30 EDT documented in this encounter Results * ANTI DNA (DOUBLE STRANDED) (12/04/2021 11:30 EDT) [facility] Anti-DNA (Double Stranded) <12.3 <30.0 IU/mL 12/08/2021 14:24 EDT [facility] Comment: ? Negative: ??<30.0 IU/mL ? Borderline Positive: ??30.0 - 75.0 IU/mL ? Positive: ??>75.0 IU/mL Results were obtained with the [employer] QUANTA Lite dsDNA SC TERESA assay on the [employer]. Blood VENOUS BLOOD / Unknown 12/04/2021 11:30 EDT 12/05/2021 21:38 EDT Provider Outr Resulting Lab IMMUNOLOGY A ND SEROLOGY ORDERABLES Performing Organization Address City/State/[facility] Co de Phone Number [facility] [address] [place] [address] * EXTRACTABLE NUCLEAR ANTIGEN PANEL (12/04/2021 11:30 EDT) [facility] SSA Antibody 2.4 <20.0 Units 12/08/2021 15:38 EDT [facility] Comment: ? Negative: <20.0 Units ? Weak Positive: 20.0 - 39.9 Units ? Moderate Positive: 40.0 - 80.0 Units ? Strong Positive: >80.0 Units Results were obtained with the [employer] QUANTA Lite SS-A TERESA. ??SS-A values obtained with different manufacturers' assay methods may not be used interchangeably. ??The magnitude of the reported IgG levels cannot be correlated to an endpoint titer. SSB Antibody 0.9 <20.0 Units 12/08/2021 15:38 [facility] Comment: ? Negative: <20.0 Units ? Weak Positive: 20.0 - 39.9 Units ? Moderate Positive: 40.0 - 80.0 Units ? Strong Positive: >80.0 Units Results were obtained with the [employer] SS-B TERESA. ??SS-B values obtained with different manufacturers' assay methods may not be used interchangeably. ??The magnitude of the reported IgG levels cannot be correlated to an endpoint titer. SM ([place]) Antibody 2.5 <20.0 Units 12/08/2021 15:38 [facility] Comment: ? Negative: <20.0 Units ? Weak Positive: 20.0 - 39.9 Units ? Moderate Positive: 40.0 - 80.0 Units ? Strong Positive: >80.0 Units Results were obtained with the [employer] Sm TERESA. ??Sm values obtained with different manufacturers' assay methods may not be used interchangeably. ??The magnitude of the reported IgG levels cannot be correlated to an endpoint titer. MANAGER OF WAREHOUSE Antibody 1.9 <20.0 Units 12/08/2021 15:38 [facility] Comment: ? Negative: <20.0 Units ? Weak Positive: 20.0 - 39.9 Units ? Moderate Positive: 40.0 - 80.0 Units ? Strong Positive: >80.0 Units Results were obtained with the [employer] Quanta Lite MANAGER OF WAREHOUSE TERESA. MANAGER OF WAREHOUSE values obtained with different wheat cleaner's assay methods may not be used interchangeaby. ??The magnitude of the reported IgG levels cannot be be correlated to an endpoint titer. A positive result in the Qu[employer] Lite MANAGER OF WAREHOUSE TERESA indicates the presence of antibodies reactive with the MANAGER OF WAREHOUSE/Sm complex but cannot distinguish between anti-Sm and anti-MANAGER OF WAREHOUSE activity. Blood VENOUS BLOOD / Unknown 12/04/2021 11:30 EDT 12/05/2021 21:38 EDT Provider Outr Resulting Lab IMMUNOLOGY A ND SEROLOGY ORDERABLES Performing Organization Address City/State/[facility] Co de Phone Number [facility] [address] [place] [address] documented in this encounter Visit Diagnoses Not on filedocumented in this encounter Care Teams Barrel Rifler Hook Relationship Specialty Start Date End Date Maryuri Evans MD [address] [place] [address] PCP - General 01/11/21 documented as of this encounter
--- OUTSIDE RECORDS SUMMARY | 2024-05-31 17:50 | XMS_ITS | Referral Summary ---
Author Organization [facility] Address [address] [place] [address] Care Team Providers Care C Programmer Name Role Phone Maryuri Evans MD Primary Care Provider [phone] Allergies Active Allergy Reactions Criticality Noted Date Comments Erythromycin Other (See Comments) Medium 01/11/2021 I get terrible sharp pains in my stomach. Metformin Nausea And Vomiting Medium 01/11/2021 Medications Medication Sig Dispensed Refills Start Date End Date Status sertraline (ZOLOFT) 50 mg tablet Take 200 mg by mouth daily. Active cyclobenzaprine (FLEXERIL) 10 mg tablet Take 5 mg by mouth 3 times daily as needed for Muscle Spasms. Active glyBURIDE (DIABETA) 5 mg tablet Take 20 mg by mouth daily with breakfast. Active liraglutide (VICTOZA 3-LISANDRA) 0.6 mg/0.1 mL (18 mg/3 mL) injectable pen Inject 1.2 mg into the skin daily. Active aspirin chewable 81 mg tablet Take 81 mg by mouth daily. Active calcium carbonate (CALCIUM 600 ORAL)Indications:Wit h Vit D Take 600 mg by mouth daily. Active hydrOXYzine (ATARAX) 25 mg tablet Take 50 mg by mouth 2 times daily as needed (Migraines). Active levothyroxine (SYNTHROID) 50 mcg tablet Take 50 mcg by mouth daily. Active insulin glargine (LANTUS SOLOSTAR) 100 unit/mL (3 mL) injection pen Inject 25 Units into the skin at bedtime. Active losartan (COZAAR) 25 mg tablet Take 25 mg by mouth at bedtime. Active topiramate (TOPAMAX) 25 mg tabletIndications:mi graine prevention Take 50 mg by mouth 2 times daily. Active naproxen (NAPROSYN) 375 mg tabletIndications:he adache disorder Take 375 mg by mouth 2 times daily. Active acetaminophen (TYLENOL) 500 mg tablet Take 2 Tabs by mouth every 6 hours as needed for Pain. 01/21/2021 Active oxyCODONE (ROXICODONE) 5 mg immediate release tablet Take 1 Tab by mouth every 6 hours as needed for Pain. Daily Max: 20 mg 20 Tab 01/26/2021 Active Additional Information Patient not taking.Reported on 02/03/2021 Active Problems Problem Noted Date Diagnosed Date Closed fracture of left ankle with routine heali ng 01/13/2021 Social History Tobacco Use Types Packs/Day Years [...] 23:02 EDT Sexual Orientation Not on file Last Filed Vital Signs Vital Sign Reading Time Taken Comments Blood Pressure 145/52 01/21/2021 1230 EDT Pulse 97 01/21/2021 0635 EDT Temperature 36.1 ??C (97 ??F) 01/21/2021 1230 EDT Respiratory Rate 17 01/21/2021 1230 EDT Oxygen Saturation 95% 01/21/2021 1230 EDT Inhaled Oxygen Concentration - - Weight 81.1 kg (178 lb 12.7 oz) 01/21/2021 0635 EDT Height 154.9 cm (5' 1) 01/21/2021 0635 EDT Body Mass Index 33.78 01/21/2021 0635 EDT Functional Status Functional Status Response Date of [...] concentrating, remembering, or making decisions? No 01/13/2021 Plan of Treatment Not on file Medical Devices Implanted Type Area Underground Production Foreperson Device Identifier Shelf Expiration Date Model / Serial / Lot Plate Bone Cmprs Lckng Postlat Distl Fib 3 Hole Lt 2.7/3.5x77mm Lcp [id number] - [id number] Implanted:Qty : 1 on 01/21/2021 by William Donald MD at [facility] Plate Implant Left: Ankle [employer] 02.112.10 7 / / Plate Bone Cmprs Lckng Distl Fib Tb 5 Hole W/Collr [id number] Lc Dcp [id number] - [id number] Implanted:Qty : 1 on 01/21/2021 by William Donald MD at [facility] Plate Implant Left: Ankle [employer] 241.35 / / Screw Bone Lc-Dcp Ss 3.5mm 45mm Prox Medial Cortical Tib Slftap Sm Frag Set Mdlr Ft - [id number] Implanted:Qty : 2 on 01/21/2021 by William Donald MD at [facility] Screw Implant Left: Ankle [employer] 204.845 / / Screw Bone Lc-Dcp Ss 3.5mm 12mm Prox Medial Cortical Tib Slftap Sm Frag Set Mdlr Ft - [id number] Implanted:Qty : 1 on 01/21/[address] [facility] Screw Implant Left: Ankle [employer] 204.812 / / Screw Bone Lc-Dcp Ss 3.5mm 14mm Prox Medial Cortical Tib Slftap Sm Frag Set Mdlr Ft - [id number] Implanted:Qty : 1 on 01/21/[address] [facility] Screw Implant Left: Ankle [employer] 204.814 / / Screw Bone Slf Tpng Lckng 2.7x10mm Lcp - [id number] Implanted:Qty : 1 on 01/21/[address] [facility] Screw Implant Left: Ankle [employer] 202.210 / / Screw Bone Slf Tpng Lckng 2.7x12mm Lcp [id number] - [id number] Implanted:Qty : 2 on 01/21/2021 by William Donald MD at [facility] Screw Implant Left: Ankle [employer] 202.212 / / Screw Bone Cortical Slf Tpng 2.7x40mm Dcp [id number] - [id number] Implanted:Qty : 1 on 01/21/2021 by William Donald MD at [facility] Screw Implant Left: Ankle [employer] 202.84 / / Screw Bone Slf Tpng Fthrd Lckng 3.5x10mm Lcp [id number] - [id number] Implanted:Qty : 1 on 01/21/2021 by William Donald MD at [facility] Screw Implant Left: Ankle [employer] 212.101 / / Screw Bone Lcp Ss 3.5mm 12mm Prox Medial Tib Slftap Locking Stardrive Recess Sm Frag - [id number] Implanted:Qty : 1 on 01/21/2021 by William Donald MD at [facility] Screw Implant Left: Ankle [employer] 212.102 / / Advance Directives For more information, please contact: [phone] * Full Code (Latest Code Status on File) Date Activated Date Inactivated Comments 01/21/2021 6:28 01/21/2021 15:22 Question Answer Comments Reason for decision includes: Full code consistent with overall plan of care Who participated in the discussion? Not Discusse d Care Teams C Programmer Relationship Specialty Start Date End Date Maryuri Evans MD [address] [place] [address] PCP - General 01/11/21
--- OUTSIDE RECORDS SUMMARY | 2024-05-31 17:50 | XMS_ITS | Encounter Summary ---
Author Organization [facility] Address [address] [place] [address] Care Team Providers Care Wood Floor Refinisher Name Role Phone Maryuri Evans MD Primary Care Provider [phone] Reason for Visit * Reason Onset Date Comments Ankle Pain 02/07/2021 Encounter Details Date Type Department Care Team (Late st Contact Info) Description 02/07/2021 Telephone [facility] Orthopedic Trauma - [address] [phone] Collin Shelton MD [address] [place] [phone] Ankle Pain Social History Tobacco Use Types Packs/Day Years [...] No 01/13/2021 documented as of this encounter Miscellaneous Notes * Telephone Encounter - Collin Shelton MD - 02/07/2021 0827 EDT Orthopaedics Telephone Call: Jesenia Méndez is a 60 y.o. female that underwent L ankle ORIF on 01/21/[address] Donald. Calling today due to uncontrolled pain in her left ankle. She notes that she is not very good with managing pain and that her symptoms are so severe that she is crying at night. I explained that we do not prescribe narcotic medications in the weekend and she voiced understanding. Explained that shecan continue aggressive elevation, ice, rest, NSAIDs, Tylenol, and avoid any form of weightbearing and ambulation. She voiced understanding. I also explained that if symptoms are severe enough she may need to present to the ED for repeat imaging despite no trauma or acute injury. She also voiced understanding of this plan but will try and avoid presentation to the ED as she does not feel her symptoms have worsened or that her motion/sensation has changed since her office visit with Dr. Donald. All questions and concerns were answered. Collin Shelton MD 02/07/21 8:28 Orthopeadic Surgery QI Initiative: Approximate time of call: 8:42 Caller: Self Service-Attending - Trauma - Dr. Donald Category - Pain- Patient specifically requested narcotics Date of Surgery: 01/21/21 Action - Intervention provided with no other immediate higher level care necessary documented in this encounter Plan of Treatment Not on file documented as of this encounter Visit Diagnoses Not on filedocumented in this encounter Care Teams Wood Floor Refinisher Relationship Specialty Start Date End Date Maryuri Evans MD [address] [place] [address] PCP - General 01/11/21 documented as of this encounter
--- OUTSIDE RECORDS SUMMARY | 2024-05-31 17:50 | XMS_ITS | Encounter Summary ---
Author Organization [facility] Address [address] [place] [address] Care Team Providers Care Supervisor Finishing Department Name Role Phone Maryuri Evans MD Primary Care Provider [phone] Encounter Details Date Type Department Care Team (Latest Contact Info) Description 01/21/2021 Travel Social History Tobacco Use Types Packs/Day [...] on filedocumented in this encounter Care Teams Supervisor Finishing Department Relationship Specialty Start Date End Date Maryuri Evans MD [address] [place] [address] PCP - General 01/11/21 documented as of this encounter
--- OUTSIDE RECORDS SUMMARY | 2024-05-31 17:50 | XMS_ITS | Continuity of Care Document ---
Author Organization [facility] Address [address] [place] [address] Encounter [facility]TT[facility] FIN NBR [id number] Date(s): 10/13/23 - 10/14/23 [facility] [address] [place], [place] [address] Encounter Diagnosis Depression(Discharge Diagnosis) - 10/13/23 Uncontrolled type 2 diabetes mellitus with hyperglycemia(Discharge Diagnosis) - 10/13/23 Discharge Disposition: Home or Self Care Attending Physician: Ava Brenner MD Admitting Physician: Ava Brenner MD Allergies, Adverse Reactions, Alerts Substance Reaction Severity Status erythromycin 1 Vomit Rash Moderate Active lisinopril 2 Cough at rest Severe Active metFORMIN Vomit Moderate Active 1rash nausea and vomit 2cough Assessment and Plan Extracted from: Title:Discharge Note Author:Digna Bell Date:10/14/23 With When Contact Information Follow up with primary care provider Within 1 week Additional Instructions: Follow up at [facility] on October 24 at 1pm. Follow up with specialist Within 1 month Additional Instructions: counselor SHIRLEY or as recommended by [facility] Extracted from: Title:H & P Author:Rashad Burden APRN Davey e:10/13/23 1.??Depression??F32.A not suicidal per [facility] but need to follow up with [facility]. was not IEA or for voluntary admit pt had stopped medications since April. no medication recommended, [facility] to reevaluate pt in am will be under close observation tonight pt denies SI/HI ? 2.??Uncontrolled type 2 diabetes mellitus with hyperglycemia??E11.65 consistent carbohydrate diet ISS aspart medium dose ACHS pt says she used to be on 25 units of lantus daily before stopping in April will give 7 units subcutaneous tonight NS at 150 cc/hr ? dvt prophylaxis: lovenox code status : full code ? Orders: Tylenol, 650 mg = 2 tab, Oral, Tab, every 6 hr for 30 days, PRN pain, First Dose: 10/13/23 22:03:00 EST, Stop Date: 11/12/23 22:02:00 EDT, Physician Stop, Routine enoxaparin, 40 mg = 0.4 mL, Subcutaneous, Injection, Daily, First Dose: 10/14/23 9:00:00 EST, Routine glucagon, 1 mg = 1 EA, Subcutaneous, Injection, As Directed, First Dose: 10/13/23 21:59:00 EST, Physician Stop, Routine Dextrose 50% injection, 25 g = 50 mL, IV Push, Injection, As Directed, First Dose: 10/13/23 21:59:00 EST, Physician Stop, Routine insulin aspart Sliding Scale - Medium Dose, Insulin Aspart Sliding Scale See Comments, Subcutaneous, Injection, AC & bedtime, First Dose: 10/14/23 7:30:00 EST, Routine insulin glargine, 7 units = 0.07 mL, Subcutaneous, Soln, every evening, First Dose: 10/13/23 23:15:00 EST, Physician Stop, Routine Protonix, 40 mg = 1 tab, Oral, Tab-DR, Daily for 30 days, First Dose: 10/14/23 6:30:00 EST, Stop Date: 11/13/23 6:29:00 EDT, Physician Stop, Routine Basic Metabolic Panel, Blood, Routine, 10/13/23 21:59:00 EST, every morning, for 3 days, Lab Collect CBC w/ Diff, Blood, Routine, 10/13/23 21:59:00 EST, every morning, for 3 days, Lab Collect Comprehensive Metabolic Panel, Blood, Timed Study, 10/14/23 0:00:00 EST, Once, Lab Collect Continuous Observation, 10/13/23 22:05:00 EST, Constant Order, 10/13/23 22:05:00 EST Diet Order, 10/13/23 22:06:00 EST, Consistent Carbohydrates, Safety Precaution Magnesium Level, Blood, Routine, 10/13/23 21:59:00 EST, every morning, for 3 days, Lab Collect Patient Condition, 10/13/23 21:58:00 EST, Condition Guarded [facility] 10/13/23 21:54:00 EST, 10/13/23 21:54:00 EST, 10/13/23 21:54:00 EST, 1 midnight or less Resuscitation Status, 10/13/23 21:58:00 EST, Full Code Up ad Jennifer, 10/13/23 21:58:00 EST, Constant Order, at nurse's discretion, 10/13/23 21:58:00 EST Vital Signs, 10/13/23 21:58:00 EST, every 4 hr (ryan) Extracted from: Title:ED Provider Note Author:IMANI Rubalcava Date:10/13/23 1.??Depression??F32.A 2.??Uncontrolled type 2 diabetes mellitus with hyperglycemia??E11.65 Orders: CV Electrocardiogram 12 Lead, 10/13/23 18:09:00 EST, Routine, Reason: Other (please specify), Stop date and time 10/13/23 18:09:00 EST, ORD_SET_REQ_DT_RANGE, Feliciano's Internal Person Id Functional Status 10/14/23 Living Environment No Living Environmen t Information Available Lives In Single level home Home Barriers None 10/13/23 Recent Travel History No recent travel 10/13/23 Activity Status ADL HOB elevated Personal Care Provided Gown change Medications acetaminophen 500 mg oral tablet 500 mg = 1 tab, Oral, every 4 hr, PRN as needed for pain, # 100 tab, 0 Refill(s) Start Date: 10/14/23 Status: Ordered alendronate 70 mg oral tablet 70 mg = 1 tab, Oral, every week, mondays, # 5 tab, 0 Refill(s), Pharmacy: [facility], 154.94, cm, 10/13/23 23:50:00 EST, Height, 72.57, kg, 10/13/23 18:00:00 EST, Weight Dosing Start Date: 10/14/23 Status: Ordered aspirin 81 mg oral delayed release tablet 81 mg = 1 tab, Oral, Daily, # 30 tab, 0 Refill(s), Pharmacy: [facility], 154.94, cm, 10/13/23 23:50:00 EST, Height, 72.57, kg, 10/13/23 18:00:00 EST, Weight Dosing Start Date: 10/14/23 Status: Ordered calcium (as carbonate)-vitamin D 600 mg-400 intl units oral tablet 1 tab, Oral, BID, # 60 tab, 0 Refill(s) Start Date: 10/14/23 Status: Ordered cyclobenzaprine 5 mg oral tablet 5 mg = 1 tab, Oral, TID, PRN as needed for muscle spasm, # 90 tab, 0 Refill(s), Pharmacy: [facility], 154.94, cm, 10/13/23 23:50:00 EST, Height, 72.57, kg, 10/13/23 18:00:00 EST, Weight Dosing Start Date: 10/14/23 Status: Ordered DULoxetine 40 mg oral delayed release capsule 40 mg = 1 cap, Oral, Daily, do not crush or chew, # 30 cap, 0 Refill(s), Pharmacy: [facility], 154.94, cm, 10/13/23 23:50:00 EST, Height, 72.57, kg, 10/13/23 18:00:00 EST, Weight Dosing Start Date: 10/14/23 Status: Ordered gabapentin 300 mg oral capsule 300 mg = 1 cap, Oral, BID, # 60 cap, 0 Refill(s), Pharmacy: [facility], 154.94, cm, 10/13/23 23:50:00 EST, Height, 72.57, kg, 10/13/23 18:00:00 EST, Weight Dosing Start Date: 10/14/23 Status: Ordered glipiZIDE 10 mg oral tablet, extended release 10 mg = 1 tab, Oral, BID, # 60 tab, 0 Refill(s), Pharmacy: [facility], 154.94, cm, 10/13/23 23:50:00 EST, Height, 72.57, kg, 10/13/23 18:00:00 EST, Weight Dosing Start Date: 10/14/23 Status: Ordered hydrOXYzine pamoate 50 mg oral capsule 50 mg = 1 cap, Oral, BID, # 60 cap, 0 Refill(s), Pharmacy: [facility], 154.94, cm, 10/13/23 23:50:00 EST, Height, 72.57, kg, 10/13/23 18:00:00 EST, Weight Dosing Start Date: 10/14/23 Status: Ordered ibuprofen 400 mg oral tablet 400 mg = 1 tab, Oral, every 4 hr, PRN as needed for pain, # 60 tab, 0 Refill(s) Start Date: 10/14/23 Status: Ordered insulin glargine 100 units/mL subcutaneous solution 25 units =, Subcutaneous, every night at bedtime, # 15 mL, 0 Refill(s), Pharmacy: [facility], 154.94, cm, 10/13/23 23:50:00 EST, Height, 72.57, kg, 10/13/23 18:00:00 EST, Weight Dosing Start Date: 10/14/23 Status: Ordered losartan 25 mg oral tablet 25 mg = 1 tab, Oral, Daily, # 30 tab, 0 Refill(s), Pharmacy: [facility], 154.94, cm, 10/13/23 23:50:00 EST, Height, 72.57, kg, 10/13/23 18:00:00 EST, Weight Dosing Start Date: 10/14/23 Status: Ordered omeprazole 40 mg oral delayed release capsule 40 mg = 1 cap, Oral, Daily, # 30 cap, 0 Refill(s), Pharmacy: [facility], 154.94, cm, 10/13/23 23:50:00 EST, Height, 72.57, kg, 10/13/23 18:00:00 EST, Weight Dosing Start Date: 10/14/23 Status: Ordered Thera-Joanne M oral tablet 1 tab, Oral, Daily, # 30 tab, 0 Refill(s) Start Date: 10/14/23 Status: Ordered topiramate 100 mg oral tablet 100 mg = 1 tab, Oral, BID, # 60 tab, 0 Refill(s), Pharmacy: [facility], 154.94, cm, 10/13/23 23:50:00 EST, Height, 72.57, kg, 10/13/23 18:00:00 EST, Weight Dosing Start Date: 10/14/23 Status: Ordered Mental Status 10/13/23 Eye Opening Response Kym Spontaneous ly Best Verbal Response [place] Oriented Best Motor Response [place] Obeys comman ds Kym Coma Score 15 Problem List Condition Confirmation Course Effective Dates Status H ealth Status Informant Depression Confirmed Active Uncontrolled type 2 diabetes mellitus with hyperglycemia Confirmed Active Results Laboratory List Name Date Glucose POCT 10/14/23 Glucose POCT 10/14/23 Automated Diff 10/14/23 Glucose POCT 10/14/23 Basic Metabolic Panel (BMP) 10/14/23 CBC w/ Diff 10/14/23 Magnesium Level 10/14/23 Comprehensive Metabolic Panel 10/14/23 Acetaminophen Level 10/13/23 Alcohol Lvl (ETOH Level) 10/13/23 CBC w/ Diff 10/13/23 Comprehensive Metabolic Panel (CMP) 10/13 Drug Screen Urine 10/13/23 Salicylate Level 10/13/23 TSH w/ Rflx to Free T4 10/13/23 Urinalysis with Micro if Indicated and C ulture if Indicated 10/13/23 Automated Diff 10/13/23 Most recent to oldest [Reference Range]: 1 2 3 WBC [4.8-10.8 K/mcL] 5.0 K/mcL (10/14/23 6:30 AM) 5.7 K/mcL (10/13/23 6:22 PM) RBC [4.20-5.40 Million/mcL] 4.55 Million /mcL (10/14/23 6:30 AM) 4.95 Million/mcL (10/13/23 6:22 PM) Neutro Auto [42.2-75.2 %] 56.2 % (10/14/23 6:30 AM) 66.6 % (10/13/23 6:22 PM) Lymph Auto [20.5-51.1 %] 34.4 % (10/14/23 6:30 AM) 24.7 % (10/13/23 6:22 PM) [place] Auto [1.7-9.3 %] 6.4 % (10/14/23 6:30 AM) 6.8 % (10/13/23 6:22 PM) Basophil Auto [0.0-0.8 %] 0.8 % (10/14/23 6:30 AM) 0.7 % (10/13/23 6:22 PM) BUN [7-25 mg/dL] 9 mg/dL (10/14/23 6:30 AM) 12 mg/dL (10/14/23 12:40 AM) 16 mg/dL (10/13/23 6:22 PM) Glucose POC 406 *NA* (10/14/23 6:03 PM) 301 *NA* (10/14/23 12:03 PM) 256 *NA* (10/14/23 7:49 AM) U Amph Scrn [Negative] Negative 1 (10/13/23 6:22 PM) UA Color [Yellow] Yellow (10/13/23 6:22 PM) Glucose Level [70-109 mg/dL] 249 mg/dL *HI* (10/14/23 6:30 AM) 227 mg/dL *HI* (10/14/23 12:40 AM) 736 mg/dL 2 *CRIT* (10/13/23 6:22 PM) Potassium Level [3.5-5.1 mmol/L] 4.2 mmol/L (10/14/23 6:30 AM) 3.3 mmol/L *LOW* (10/14/23 12:40 AM) 4.2 mmol/L (10/13/23 6:22 PM) Baso Absolute [0.0-0.2 K/mcL] 0.0 K/mcL (10/14/23 6:30 AM) 0.0 K/mcL (10/13/23 6:22 PM) U Benzodia Scrn [Negative] Negative (10/13/23 6:22 PM) MCV [81.0-99.0 fL] 93.0 fL (10/14/23 6:30 AM) 93.8 fL (10/13/23 6:22 PM) UA Urobilinogen [0.2] 0.2 (10/13/23 6:22 PM) UA Bili [Negative] Negative (10/13/23 6:22 PM) UA Ketones [Negative] Negative (10/13/23 6:22 PM) AST [13-39 IntlUnit/L] 41 IntlUnit/L *HI* (10/14/23 12:40 AM) 50 IntlUnit/L *HI* (10/13/23 6:22 PM) ALT [7-52 IntlUnit/L] 47 IntlUnit/L (10/14/23 12:40 AM) 57 IntlUnit/L *HI* (10/13/23 6:22 PM) MCHC [32.0-37.0 g/dL] 33.9 g/dL (10/14/23 6:30 AM) 33.6 g/dL (10/13/23: PM) Osmolality [275-295 mOsm/kg] 283 mOsm/kg (10/14/23 6:30 AM) 281 mOsm/kg (10/14/23 12:40 AM) 292 mOsm/kg (10/13/23: PM) Sodium Level [136-145 mmol/L] 138 mmol/L (10/14/23 6:30 AM) 137 mmol/L (10/14/23 12:40 AM) 127 mmol/L *LOW* (10/13/23: PM) UA Leuk Est [Negative] Negative (10/13/23: PM) Lymph Absolute [1.2-3.4 K/mcL] 1.7 K/mcL (10/14/23 6:30 AM) 1.4 K/mcL (10/13/23: PM) UA Nitrite [Negative] Negative (10/13/23 PM) UA Glucose [Negative] >=1000 *ABN* (10/13/23: PM) Hct [37.0-47.0 %] 42.3 % (10/14/23 6:30 AM) 46.5 % (10/13/23: PM) U Cocaine Scrn [Negative] Negative (10/13/23: PM) Calcium Level [8.6-10.3 mg/dL] 8.2 mg/dL *LOW* (10/14/23 6:30 AM) 8.5 mg/dL *LOW* (10/14/23 12:40 AM) 9.1 mg/dL (10/13/23: PM) [place] Absolute [0.1-0.6 K/mcL] 0.3 K/mcL (10/14/23 6:30 AM) 0.4 K/mcL (10/13/23: PM) Albumin Level [3.5-5.7 g/dL] 3.3 g/dL *LOW* (10/14/23 12:40 AM) 3.8 g/dL (10/13/23: PM) Protein Total [6.4-8.9 g/dL] 5.5 g/dL *LOW* (10/14/23 12:40 AM) 6.5 g/dL (10/13/23:22 PM) UA Protein [Negative] Negative (10/13/23: PM) MCH [27.0-31.0 pg] 31.5 pg *HI* (10/14/23 6:30 AM) 31.5 pg *HI* (10/13/23: PM) Magnesium Level [1.9-2.7 mg/dL] 2.0 mg/dL (10/14/23 6:30 AM) Neutro Absolute [1.4-6.5 K/mcL] 2.8 K/mcL (10/14/23 6:30 AM) 3.8 K/mcL (10/13/23: PM) Bilirubin Total [0.3-1.0 mg/dL] 0.4 mg/dL (10/14/23 12:40 AM) 0.5 mg/dL (10/13/23: PM) Hgb [12.0-16.0 g/dL] 14.4 g/dL (10/14/23 6:30 AM) 15.6 g/dL (10/13/23: PM) Alk Phos [34-104 IntlUnit/L] 109 IntlUni t/L *HI* (10/14/23 12:40 AM) 146 IntlUnit/L *HI* (10/13/23: PM) UA Blood [Negative] Negative (10/13/23 PM) MPV [7.4-10.4 fL] 9.3 fL (10/14/23 6:30 AM) 10.5 fL *HI* (10/13/23: PM) Salicylate Level [<=30.0 mg/dL] <2.5 mg/dL (10/13/23: PM) Ethanol Level [0.00-0.08 g/dL] SEE COMMENT g/dL 3 *NA* (10/13/23: PM) UA Spec Grav [1.001-1.030] <=1.005 *NA* (10/13/23: PM) Platelets [130-400 K/mcL] 127 K/mcL *LOW* (10/14/23 6:30 AM) 143 K/mcL (10/13/23 6:22 PM) CO2 [21-31 mmol/L] 25 mmol/L (10/14/23 6:30 AM) 22 mmol/L (10/14/23 12:40 AM) 23 mmol/L (10/13/23 6:22 PM) Eos Absolute [0.0-0.2 K/mcL] 0.1 K/mcL (10/14/23 6:30 AM) 0.1 K/mcL (10/13/23:22 PM) U Monalisa Scrn [Negative] Negative (10/13/23: PM) TSH [0.45-5.33 mcIntlUnit/mL] 1.43 mcIntlUnit/mL (10/13/23: PM) UA pH [5.00-9.00] 7.00 (10/13/23: PM) U Opiate Scrn [Negative] Negative (10/13/23: PM) UA Appear [Clear] Clear (10/13/23: PM) Acetaminophen Level [10.0-30.0 ug/mL] <10.0 ug/mL 4 (10/13/23: PM) Chloride Level [98-107 mmol/L] 108 mmol/L *HI* (10/14/23 6:30 AM) 107 mmol/L (10/14/23 12:40 AM) 95 mmol/L *LOW* (10/13/23: PM) U Oxy Scrn [Negative] Negative (10/13/23: PM) U PCP Scrn NEGAITVE *NA* (10/13/23 6: PM) RDW-CV [11.5-14.5 %] 14.4 % (10/14/23 6:30 AM) 14.5 % (10/13/23: PM) A/G Ratio [1.0-2.5 g/dL] 1.5 g/dL (10/14/23 12:40 AM) 1.4 g/dL (10/13/23:22 PM) BUN/Creat Ratio [8.0-20.0] 11.3 (10/14/23 6:30 AM) 15.0 (10/14/23 12:40 AM) 17.8 (10/13/23:22 PM) Globulin [2.3-3.5 g/dL] 2.2 g/dL *LOW* (10/14/23 12:40 AM) 2.7 g/dL (10/13/23:22 PM) U THC Scr [Negative] Negative (10/13/23: PM) U PPX Scr [Negative] Negative (10/13/23: PM) U Methadone Scr [Negative] Negative (10/13/23: PM) Urine Srce Clean Catch (10/13/23: PM) U Buprenorph Scr [Negative] Negative (10/13/23: PM) Creatinine Level [0.60-1.20 mg/dL] 0.80 mg/dL (10/14/23 6:30 AM) 0.80 mg/dL (10/14/23 12:40 AM) 0.90 mg/dL (10/13/23: PM) Anion Gap [3.0-12.0] 5.0 (10/14/23 6:30 AM) 8.0 (10/14/23 12:40 AM) 9.0 (10/13/23: PM) Eos, Auto [0.00-3.00 %] 2.20 % (10/14/23 6:30 AM) 1.20 % (10/13/23: PM) Instr Ethanol Lvl [<=10 mg/dL] <10 mg/dL (10/13/23: PM) eGFR CKD-EPI [>=60 mL/min/1.73 m2] 84 mL/min/1.73 m2 (10/14/23 6:30 AM) 84 mL/min/1.73 m2 (10/14/23 12:40 AM) 73 mL/min/1.73 m2 (10/13/23:22 PM) U Fentanyl Scr [Negative] Negative (10/13/23: PM) 1Interpretive Data: ???This test only provides a preliminary test result. A more specific alternate chemical method must be used in order to obtain a confirmed analytical result. Gas Chromatography/Mass Spectrometry (GC/MS) is the preferred confirmatory method. Clinical consideration and professional judgment should be applied to any drug of abuse test result, particularly when preliminary positive results are used. Please contact the laboratory if you wish to reflex to confirmatory (GC/MS) testing based upon screening results. THRESHOLD CONCENTRATIONS: AMP/MAMP 1000 ng/mL Please noth that Methamphetamin screen is included with the Amphetamine screen BAR 200 ng/mL BUP 5 ng/mL BZO 200 ng/mL MARTY 300 ng/mL MTD 300 ng/mL OPI 300 ng/mL OXY 100 ng/mL PCP 25 ng/mL PPX 300 ng/mL THC 50 ng/mL FENT 5 ng/ml 2Result Comment: verified by repeat analysis called to and read back by Mary Johnson at 1922/rp 3Result Comment: Results outside of linerity range. Unable to calculate. 4Interpretive Data: TOXIC: >150 ug/dL 4 HOURS AFTER INGESTION >75 ug/dL 8 HOURS AFTER INGESTION >40 ug/dL 12 HOURS AFTER INGESTION Vital Signs Most recent to oldest [Reference Range]: 1 2 3 Temperature Temporal Artery [36-38 Deg C] 36.4 Deg C (10/14/23 7:07 AM) 36.3 Deg C (10/14/23 4:40 AM) 36.6 Deg C (10/13/23 11:16 PM) Temperature Temporal Artery (DegF) [97.3-100 Deg F] 97.52 Deg F (10/14/23 7:07 AM) 97.34 Deg F (10/14/23 4:40 AM) 97.88 Deg F (10/13/23 11:16 PM) Peripheral Pulse Rate [60-100 bpm] 66 bpm (10/14/23 7:07 AM) 58 bpm *LOW* (10/14/23 4:40 AM) 73 bpm (10/13/23 11:16 PM) Heart Rate Monitored [60-100 bpm] 83 bpm (10/13/23 5:51 PM) Respiratory Rate [12-24 br/min] 18 br/min (10/14/23 7:07 AM) 20 br/min (10/14/23 4:40 AM) 20 br/min (10/13/23 11:16 PM) Blood Pressure [90-140/60-90 mmHg] 136/50mmHg (10/14/23 7:07 AM) 110/55mmHg (10/14/23 4:40 AM) 144/67mmHg *HI* (10/13/23 11:16 PM) Mean Arterial Pressure, Cuff [65-140 mmHg] 79 mmHg (10/14/23 7:07 AM) 73 mmHg (10/14/23 4:40 AM) 93 mmHg (10/13/23 11:16 PM) Blood Pressure Location Right arm (10/14/23 7:07 AM) Blood Pressure Method Automatic (10/14/23 7:07 AM) Weight 72.57 kg (10/13/23 11:50 PM) 72.57 kg (10/13/23 11:36 PM) 72.57 kg (10/13/23 5:51 PM) Weight Dosing 72.570 kg (10/13/23 5:51 PM) Height 154.94 cm (10/13/23 11:50 PM) 154.94 cm (10/13/23 5:51 PM) BSA Measured 1.77 m2 (10/13/23 11:50 PM) BSA Estimated 0 m2 (10/13/23 11:50 PM) Body Mass Index 30.23 kg/m2 (10/13/23 11:50 PM) 30.23 kg/m2 (10/13/23 5:51 PM) Social History Social History Type Response Tobacco Never tobacco user T obacco Use:. Sex Hospital Discharge Instructions Patient Education 10/14/2023 11:20:22 Diabetes Mellitus and Nutrition, Adult Diabetes Mellitus and Nutrition, Adult When you have diabetes, or diabetes mellitus, it is very important to have healthy eating habits because your blood sugar (glucose) levels are greatly affected by what you eat and drink. Eating healthy foods in the right amounts, at about the same times every day, can help you: ??? Manage your blood glucose. ??? Lower your risk of heart disease. ??? Improve your blood pressure. ??? Reach or maintain a healthy weight. What can affect my meal plan? Every person with diabetes is different, and each person has different needs for a meal plan. Your health care provider may recommend that you work with a dietitian to make a meal plan that is best for you. Your meal plan may vary depending on factors such as: ??? The calories you need. ??? The medicines you take. ??? Your weight. ??? Your blood glucose, blood pressure, and cholesterol levels. ??? Your activity level. ??? Other health conditions you have, such as heart or kidney disease. How do carbohydrates affect me? Carbohydrates, also called carbs, affect your blood glucose level more than any other type of food.Eating carbs raises the amount of glucose in your blood. It is important to know how many carbs you can safely have in each meal. This is different for every person. Your dietitian can help you calculate how many carbs you should have at each meal and for each snack. How does alcohol affect me? Alcohol can cause a decrease in blood glucose (hypoglycemia), especially if you use insulin or takecertain diabetes medicines by mouth. Hypoglycemia can be a life-threatening condition. Symptoms of hypoglycemia, such as sleepiness, dizziness, and confusion, are similar to symptoms of having too much alcohol. ??? Do not drink alcohol if: ??? Your health care provider tells you not to drink. ??? You are , may be , or are planning to become . ??? If you drink alcohol: ??? Limit how much you have to: ??? 0???1 drink a day for women. ??? 0???2 drinks a day for men. ??? Know how much alcohol is in your drink. In the [place] one drink equals one 12 oz bottle of beer (355 mL), one 5 oz glass of wine (148 mL), or one 1?? oz glass of hard liquor (44 mL). ??? Keep yourself hydrated with water, diet soda, or unsweetened iced tea. Keep in mind that regular soda, juice, and other mixers may contain a lot of sugar and must be counted as carbs. What are tips for following this plan? Reading food labels ??? Start by checking the serving size on the Nutrition Facts label of packaged foods and drinks. The number of calories and the amount of carbs, fats, and other nutrients listed on the label are based on one serving of the item. Many items contain more than one serving per package. ??? Check the total grams (g) of carbs in one serving. ??? Check the number of grams of saturated fats and trans fats in one serving. Choose foods that have a low amount or none of these fats. ??? Check the number of milligrams (mg) of salt (sodium) in one serving. Most people should limit total sodium intake to less than 2,300 mg per day. ??? Always check the nutrition information of foods labeled as low-fat or nonfat. These foods may be higher in added sugar or refined carbs and should be avoided. ??? Talk to your dietitian to identify your daily goals for nutrients listed on the label. Shopping ??? Avoid buying canned, pre-made, or processed foods. These foods tend to be high in fat, sodium, and added sugar. ??? Shop around the outside edge of the grocery store. This is where you will most often find freshfruits and vegetables, bulk grains, fresh meats, and fresh dairy products. Cooking ??? Use low-heat cooking methods, such as baking, instead of high-heat cooking methods, such as deep frying. ??? Cook using healthy oils, such as olive, canola, or sunflower oil. ??? Avoid cooking with butter, cream, or high-fat meats. Meal planning ??? Eat meals and snacks regularly, preferably at the same times every day. Avoid going long periods of time without eating. ??? Eat foods that are high in fiber, such as fresh fruits, vegetables, beans, and whole grains. ??? Eat 4???6 oz (112???168 g) of lean protein each day, such as lean meat, chicken, fish, eggs, ortofu. One ounce (oz) (28 g) of lean protein is equal to: ??? 1 oz (28 g) of meat, chicken, or fish. ??? 1 egg. ? cup (62 g) of tofu. ??? Eat some foods each day that contain healthy fats, such as avocado, nuts, seeds, and fish. What foods should I eat? Fruits Berries. Apples. Oranges. Peaches. Apricots. Plums. Grapes. Mangoes. Papayas. Pomegranates. Kiwi. Cherries. Vegetables Leafy greens, including lettuce, spinach, kale, chard, pebbles greens, mustard greens, and cabbage.Beets. Cauliflower. Broccoli. Carrots. Green beans. Tomatoes. Peppers. Onions. Cucumbers. [place] sprouts. Grains Whole grains, such as whole-wheat or whole-grain bread, crackers, tortillas, cereal, and pasta. Unsweetened oatmeal. Quinoa. Brown or wild rice. Meats and other proteins Seafood. Poultry without skin. Lean cuts of poultry and beef. Tofu. Nuts. Seeds. Dairy Low-fat or fat-free dairy products such as milk, yogurt, and cheese. The items listed above may not be a complete list of foods and beverages you can eat and drink. Contact a dietitian for more information. What foods should I avoid? Fruits Fruits canned with syrup. Vegetables Canned vegetables. Frozen vegetables with butter or cream sauce. Grains Refined white flour and flour products such as bread, pasta, snack foods, and cereals. Avoid all processed foods. Meats and other proteins Fatty cuts of meat. Poultry with skin. Breaded or fried meats. Processed meat. Avoid saturated fats. Dairy Full-fat yogurt, cheese, or milk. Beverages Sweetened drinks, such as soda or iced tea. The items listed above may not be a complete list of foods and beverages you should avoid. Contact a dietitian for more information. Questions to ask a health care provider ??? Do I need to meet with a certified diabetes care and aboriginal education worker coordinator? Do I need to meet with a dietitian? What number can I call if I have questions? When are the best times to check my blood glucose? Where to find more information: ??? [place] [employer]: diabetes.org ??? Academy of Nutrition and Dietetics: eatright.org ??? National [place] of Diabetes and Digestive and Kidney Diseases: niddk.nih.gov ? ? Association of Diabetes Care & Education Specialists: diabeteseducator.org Summary ??? It is important to have healthy eating habits because your blood sugar (glucose) levels are greatly affected by what you eat and drink. It is important to use alcohol carefully. ??? A healthy meal plan will help you manage your blood glucose and lower your risk of heart disease. ??? Your health care provider may recommend that you work with a dietitian to make a meal plan thatis best for you. This information is not intended to replace advice given to you by your health care provider. Make sure you discuss any questions you have with your health care provider. Document Revised: 03/11/2021 Document Reviewed: 03/11/2021 Familiar Patient Education ?? 2022 [employer]. 10/14/2023 11:20:13 Hyperglycemia, Ueln-ni-Xehy Hyperglycemia Hyperglycemia is when the sugar (glucose) level in your blood is too high. High blood sugar can happen to people who have or do not have diabetes. High blood sugar can happen quickly. It can be an emergency. What are the causes? If you have diabetes, high blood sugar may be caused by: ??? Medicines that increase blood sugar or affect your control of diabetes. ??? Getting less physical activity. ??? Overeating. ??? Being sick or injured or having an infection. ??? Having surgery. ??? Stress. ??? Not giving yourself enough insulin (if you are taking it). You may have high blood sugar because you have diabetes that has not been diagnosed yet. If you do not have diabetes, high blood sugar may be caused by: ??? Certain medicines. ??? Stress. ??? A bad illness. ??? An infection. ??? Having surgery. ??? Diseases of the pancreas. What increases the risk? This condition is more likely to develop in people who have risk factors for diabetes, such as: ??? Having a family member with diabetes. ??? Certain conditions in which the body's defense system (immune system) attacks itself. These arecalled autoimmune disorders. ??? Being overweight. ??? Not being active. ??? Having a condition called insulin resistance. ??? Having a history of: ??? Prediabetes. ??? Diabetes when . ??? Polycystic ovarian syndrome (PCOS). What are the signs or symptoms? This condition may not cause symptoms. If you do have symptoms, they may include: ??? Feeling more thirsty than normal. ??? Needing to pee (urinate) more often than normal. ??? Hunger. ??? Feeling very tired. ??? Blurry eyesight (vision). You may get other symptoms as the condition gets worse, such as: ??? Dry mouth. ??? Pain in your belly (abdomen). ??? Not being hungry (loss of appetite). ??? Breath that smells fruity. ??? Weakness. ??? Weight loss that is not planned. ??? A tingling or numb feeling in your hands or feet. ??? A headache. ??? Cuts or bruises that heal slowly. How is this treated? Treatment depends on the cause of your condition. Treatment may include: ??? Taking medicine to control your blood sugar levels. ??? Changing your medicine or dosage if you take insulin or other diabetes medicines. ??? Lifestyle changes. These may include: ??? Exercising more. ??? Eating healthier foods. ??? Losing weight. ??? Treating an illness or infection. ??? Checking your blood sugar more often. ??? Stopping or reducing steroid medicines. If your condition gets very bad, you will need to be treated in the hospital. Follow these instructions at home: General instructions ??? Take vlse-ggv-sxwhahq and prescription medicines only as told by your doctor. ??? Do not smoke or use any products that contain nicotine or tobacco. If you need help quitting, ask your doctor. ??? If you drink alcohol: ??? Limit how much you have to: ??? 0???1 drink a day for women who are not . ??? 0???2 drinks a day for men. ??? Know how much alcohol is in a drink. In the [place] one drink equals one 12 oz bottle of beer (355 mL), one 5 oz glass of wine (148 mL), or one 1?? oz glass of hard liquor (44 mL). ??? Manage stress. If you need help with this, ask your doctor. ??? Do exercises as told by your doctor. ??? Keep all follow-up visits. Eating and drinking ??? Stay at a healthy weight. ??? Make sure you drink enough fluid when you: ??? Exercise. ??? Get sick. ??? Are in hot temperatures. ??? Drink enough fluid to keep your pee (urine) pale yellow. If you have diabetes: ??? Know the symptoms of high blood sugar. ??? Follow your diabetes management plan as told by your doctor. Make sure you: ??? Take insulin and medicines as told. ??? Follow your exercise plan. ??? Follow your meal plan. Eat on time. Do not skip meals. ??? Check your blood sugar as often as told. Make sure you check before and after exercise. If you exercise longer or in a different way, check your blood sugar more often. ??? Follow your sick day plan whenever you cannot eat or drink normally. Make this plan ahead of time with your doctor. ??? Share your diabetes management plan with people in your workplace, school, and household. ??? Check your pee for ketones when you are ill and as told by your doctor. ??? Carry a card or wear jewelry that says that you have diabetes. Where to find more information [place] [employer] Association: www.diabetes.org Contact a doctor if: ??? Your blood sugar level is at or above 240 mg/dL (13.3 mmol/L) for 2 days in a row. ??? You have problems keeping your blood sugar in your target range. ??? You have high blood pressure often. ??? You have signs of illness, such as: ??? Feeling like you may vomit (feeling nauseous). ??? Vomiting. ??? A fever. Get help right away if: ??? Your blood sugar monitor reads high even when you are taking insulin. ??? You have trouble breathing. ??? You have a change in how you think, feel, or act (mental status). ??? You feel like you may vomit, and the feeling does not go away. ??? You cannot stop vomiting. These symptoms may be an emergency. Get medical help right away. Call your local emergency services(911 in the [place] ??? Do not wait to see if the symptoms will go away. ??? Do not drive yourself to the hospital. Summary ??? Hyperglycemia is when the sugar (glucose) level in your blood is too high. ??? High blood sugar can happen to people who have or do not have diabetes. ??? Make sure you drink enough fluids and follow your meal plan. Exercise as often as told by your doctor. ??? Contact your doctor if you have problems keeping your blood sugar in your target range. This information is not intended to replace advice given to you by your health care provider. Make sure you discuss any questions you have with your health care provider. Document Revised: 05/22/2021 Document Reviewed: 05/22/2021 Elsevier Patient Education ?? 2022 [employer]. Follow Up Care 10/13/2023 17:51:33 With:Follow up with primary care provider Address: When:1 week Comments:Follow up at [facility] on October 24 at 1pm. With:Follow up with specialist Address: When:1 month Comments:counselor SHIRLEY or as recommended by [facility] Pharmacology Note * Damian Bashir: PERFORM Event Display: Pharmacy Note Authored Date: [id number] med hx via SS review and pt interview. pt appears good hx. takes alendronate on mondays, stopped duloxetine in april d/t financial barriers, stopped victoza and put on ozempic, but refused to take ozempic. reports takes flexeril somewhat regularly for arthritis pain. Discharge instructions * Adalid Faye: PERFORM Event Display: Discharge Instructions Authored Date: [id number] EMMANUEL SALAZAR :1960 Age:62 years Sex:Female Visit Date:10/13/2023 Hospital Discharge Instructions We would like to thank you for allowing us to assist you with your healthcare needs. The following includes patient education materials and information regarding your injury/illness. Your Next Steps Discharge Orders Discharge Activity Restrictions, No Restrictions Discharge Diet Instruction, Consistent Carbohydrate [phone] manuel Discharge Disposition, 10/14/23 12:22:00 EST, Home Independently Follow Up Appointments Follow Up with??Follow up with primary care provider When:??Within 1 week Why: Follow up at [facility] on October 24 at 1pm. Follow Up with??Follow up with specialist When:??Within 1 month Why: counselor SHIRLEY or as recommended by [facility] Medications What How Much When Instructions Next Dose Changed DULoxetine (DULoxetine 40 mg oral delayed releasecapsule) 1 Capsules Oral (given by mouth) Every day do not crush or chew ?? Pickup at [facility] Changed gabapentin (gabapentin 300 mg oral capsule) 1 Capsules Oral (given by mouth) 2 times a day Pickup at [facility] Changed insulin glargine (insulin glargine 100 units/ mL subcutaneous solution) 25 Units Subcutaneous (under the skin) Every night at bedtime Pickup at [facility] Unchanged acetaminophen (acetaminophen 500 mg oral tablet) 1 tab Oral (given by mouth) Every 4 hours as needed for as needed for pain Unchanged alendronate (alendronate 70 mg oral tablet) 1 tab Oral (given by mouth) Every week mondays ?? Pickup at [facility] Unchanged aspirin (aspirin 81 mg oral delayed release tablet) 1 tab Oral (given by mouth) Every day Pickup at [facility] Unchanged calcium-vitamin D (calcium (as carbonate)-vitamin D 600 mg-400 intl units oral tablet) 1 tab Oral (given by mouth) 2 times a day Unchanged cyclobenzaprine (cyclobenzaprine 5 mg oral tablet) 1 tab Oral (given by mouth) 3 times a day as needed for as needed for muscle spasm Pickup at [facility] Unchanged glipiZIDE (glipiZIDE 10 mg oral tablet, extended release) 1 tab Oral (given by mouth) 2 times a day Pickup at [facility] Unchanged hydrOXYzine (hydrOXYzine pamoate 50 mg oral capsule) 1 Capsules Oral (given by mouth) 2 times a day Pickup at [facility] Unchanged ibuprofen (ibuprofen 400 mg oral tablet) 1 tab Oral (given by mouth) Every 4 hours as needed for as needed for pain Unchanged losartan (losartan 25 mg oral tablet) 1 tab Oral (given by mouth) Every day Pickup at [facility] Unchanged multivitamin with minerals (Thera-Joanne M oral tablet) 1 tab Oral (given by mouth) Every day Unchanged omeprazole (omeprazole 40 mg oral delayed release capsule) 1 Capsules Oral (given by mouth) Every day Pickup at [facility] Unchanged topiramate (topiramate 100 mg oral tablet) 1 tab Oral (given by mouth) 2 times a day Pickup at [facility] Pharmacy Information [facility]: [address] [place] [address] [phone] ?? What How Much When Comments Stop Taking levothyroxine (levothyroxine 50 mcg (0.05 mg) oral tablet) 1 tab Oral (given by mouth) Every day Your Summary Your Care Team Admitting Physician - Ava Brenner MD Attending Physician - Ava Brenner MD Your Diagnosis Depression Uncontrolled type 2 diabetes mellitus with hyperglycemia Problems Ongoing - Any problem that you are currently receiving treatment for. Depression Uncontrolled type 2 diabetes mellitus with hyperglycemia Tests Performed/Pending Acetaminophen Level Automated Diff BMP CBC w/ Diff CMP Comprehensive Metabolic Panel Drug Screen Urine ETOH Level Glucose POCT Magnesium Level Salicylate Level TSH w/ Rflx to Free T4 Urinalysis with Micro if Indicated and Culture if Indicated Discharge Vitals Temperature??(Temporal Artery) 97.5 ??F (36.4 ??C) Heart Rate??(Peripheral) 66 Respiratory Rate?? 18 Blood Pressure?? 136/50?? Height?? 61.00 in (154.94 cm) Weight?? 160.02 lb (72.57 kg) BMI?? 30.23 Allergies lisinopril??(Cough at rest) erythromycin??(Vomit, Rash) metFORMIN??(Vomit) Education Materials Diabetes Mellitus and Nutrition, Adult When you have diabetes, or diabetes mellitus, it is very important to have healthy eating habits because your blood sugar (glucose) levels are greatly affected by what you eat and drink. Eating healthy foods in the right amounts, at about the same times every day, can help you: ? Manage your blood glucose. ? Lower your risk of heart disease. ? Improve your blood pressure. ? Reach or maintain a healthy weight. What can affect my meal plan? Every person with diabetes is different, and each person has different needs for a meal plan. Your health care provider may recommend that you work with a dietitian to make a meal plan that is best for you. Your meal plan may vary depending on factors such as: ? The calories you need. ? The medicines you take. ? Your weight. ? Your blood glucose, blood pressure, and cholesterol levels. ? Your activity level. ? Other health conditions you have, such as heart or kidney disease. How do carbohydrates affect me? Carbohydrates, also called carbs, affect your blood glucose level more than any other type of food.Eating carbs raises the amount of glucose in your blood. It is important to know how many carbs you can safely have in each meal. This is different for every person. Your dietitian can help you calculate how many carbs you should have at each meal and for each snack. How does alcohol affect me? Alcohol can cause a decrease in blood glucose (hypoglycemia), especially if you use insulin or takecertain diabetes medicines by mouth. Hypoglycemia can be a life-threatening condition. Symptoms of hypoglycemia, such as sleepiness, dizziness, and confusion, are similar to symptoms of having too much alcohol. ? Do not drink alcohol if: ? Your health care provider tells you not to drink. ? You are , may be , or are planning to become . ? If you drink alcohol: ? Limit how much you have to: ? 0???1 drink a day for women. ? 0???2 drinks a day for men. ? Know how much alcohol is in your drink. In the [place] one drink equals one 12 oz bottle of beer (355mL), one 5 oz glass of wine (148 mL), or one 1?? oz glass of hard liquor (44 mL). ? Keep yourself hydrated with water, diet soda, or unsweetened iced tea. Keep in mind that regular soda, juice, and other mixers may contain a lot of sugar and must be counted as carbs. What are tips for following this plan? Reading food labels ? Start by checking the serving size on the Nutrition Facts label of packaged foods and drinks. The number of calories and the amount of carbs, fats, and other nutrients listed on the label are based on one serving of the item. Many items contain more than one serving per package. ? Check the total grams (g) of carbs in one serving. ? Check the number of grams of saturated fats and trans fats in one serving. Choose foods that have alow amount or none of these fats. ? Check the number of milligrams (mg) of salt (sodium) in one serving. Most people should limit totalsodium intake to less than 2,300 mg per day. ? Always check the nutrition information of foods labeled as low-fat or nonfat. These foods may be higher in added sugar or refined carbs and should be avoided. ? Talk to your dietitian to identify your daily goals for nutrients listed on the label. Shopping ? Avoid buying canned, pre-made, or processed foods. These foods tend to be high in fat, sodium, and added sugar. ? Shop around the outside edge of the grocery store. This is where you will most often find fresh fruits and vegetables, bulk grains, fresh meats, and fresh dairy products. Cooking ? Use low-heat cooking methods, such as baking, instead of high-heat cooking methods, such as deep frying. ? Cook using healthy oils, such as olive, canola, or sunflower oil. ? Avoid cooking with butter, cream, or high-fat meats. Meal planning ? Eat meals and snacks regularly, preferably at the same times every day. Avoid going long periods oftime without eating. ? Eat foods that are high in fiber, such as fresh fruits, vegetables, beans, and whole grains. ? Eat 4???6 oz (112???168 g) of lean protein each day, such as lean meat, chicken, fish, eggs, or tofu. One ounce (oz) (28 g) of lean protein is equal to: ? 1 oz (28 g) of meat, chicken, or fish. ? 1 egg. ? cup (62 g) of tofu. ? Eat some foods each day that contain healthy fats, such as avocado, nuts, seeds, and fish. What foods should I eat? Fruits Berries. Apples. Oranges. Peaches. Apricots. Plums. Grapes. Mangoes. Papayas. Pomegranates. Kiwi. Cherries. Vegetables Leafy greens, including lettuce, spinach, kale, chard, pebbles greens, mustard greens, and cabbage.Beets. Cauliflower. Broccoli. Carrots. Green beans. Tomatoes. Peppers. Onions. Cucumbers. [place] sprouts. Grains Whole grains, such as whole-wheat or whole-grain bread, crackers, tortillas, cereal, and pasta. Unsweetened oatmeal. Quinoa. Brown or wild rice. Meats and other proteins Seafood. Poultry without skin. Lean cuts of poultry and beef. Tofu. Nuts. Seeds. Dairy Low-fat or fat-free dairy products such as milk, yogurt, and cheese. The items listed above may not be a complete list of foods and beverages you can eat and drink. Contact a dietitian for more information. What foods should I avoid? Fruits Fruits canned with syrup. Vegetables Canned vegetables. Frozen vegetables with butter or cream sauce. Grains Refined white flour and flour products such as bread, pasta, snack foods, and cereals. Avoid all processed foods. Meats and other proteins Fatty cuts of meat. Poultry with skin. Breaded or fried meats. Processed meat. Avoid saturated fats. Dairy Full-fat yogurt, cheese, or milk. Beverages Sweetened drinks, such as soda or iced tea. The items listed above may not be a complete list of foods and beverages you should avoid. Contact a dietitian for more information. Questions to ask a health care provider ? Do I need to meet with a certified diabetes care and aboriginal education worker coordinator? Do I need to meet with a dietitian? What number can I call if I have questions? When are the best times to check my blood glucose? Where to find more information: ? [place] Diabetes Association: diabetes.org ? Academy of Nutrition and Dietetics: eatright.org ? National [place] of Diabetes and Digestive and Kidney Diseases: niddk.nih.gov ? Association of Diabetes Care & Education Specialists: diabeteseducator.org Summary ? It is important to have healthy eating habits because your blood sugar (glucose) levels are greatlyaffected by what you eat and drink. It is important to use alcohol carefully. ? A healthy meal plan will help you manage your blood glucose and lower your risk of heart disease. ? Your health care provider may recommend that you work with a dietitian to make a meal plan that is best for you. This information is not intended to replace advice given to you by your health care provider. Make sure you discuss any questions you have with your health care provider. Document Revised: 03/11/2021 Document Reviewed: 03/11/2021 Elsevier Patient Education ?? 2022 [employer] Hyperglycemia Hyperglycemia is when the sugar (glucose) level in your blood is too high. High blood sugar can happen to people who have or do not have diabetes. High blood sugar can happen quickly. It can be an emergency. What are the causes? If you have diabetes, high blood sugar may be caused by: ? Medicines that increase blood sugar or affect your control of diabetes. ? Getting less physical activity. ? Overeating. ? Being sick or injured or having an infection. ? Having surgery. ? Stress. ? Not giving yourself enough insulin (if you are taking it). You may have high blood sugar because you have diabetes that has not been diagnosed yet. If you do not have diabetes, high blood sugar may be caused by: ? Certain medicines. ? Stress. ? A bad illness. ? An infection. ? Having surgery. ? Diseases of the pancreas. What increases the risk? This condition is more likely to develop in people who have risk factors for diabetes, such as: ? Having a family member with diabetes. ? Certain conditions in which the body's defense system (immune system) attacks itself. These are called autoimmune disorders. ? Being overweight. ? Not being active. ? Having a condition called insulin resistance. ? Having a history of: ? Prediabetes. ? Diabetes when . ? Polycystic ovarian syndrome (PCOS). What are the signs or symptoms? This condition may not cause symptoms. If you do have symptoms, they may include: ? Feeling more thirsty than normal. ? Needing to pee (urinate) more often than normal. ? Hunger. ? Feeling very tired. ? Blurry eyesight (vision). You may get other symptoms as the condition gets worse, such as: ? Dry mouth. ? Pain in your belly (abdomen). ? Not being hungry (loss of appetite). ? Breath that smells fruity. ? Weakness. ? Weight loss that is not planned. ? A tingling or numb feeling in your hands or feet. ? A headache. ? Cuts or bruises that heal slowly. How is this treated? Treatment depends on the cause of your condition. Treatment may include: ? Taking medicine to control your blood sugar levels. ? Changing your medicine or dosage if you take insulin or other diabetes medicines. ? Lifestyle changes. These may include: ? Exercising more. ? Eating healthier foods. ? Losing weight. ? Treating an illness or infection. ? Checking your blood sugar more often. ? Stopping or reducing steroid medicines. If your condition gets very bad, you will need to be treated in the hospital. Follow these instructions at home: General instructions ? Take fdhc-ije-qxrsooc and prescription medicines only as told by your doctor. ? Do not smoke or use any products that contain nicotine or tobacco. If you need help quitting, ask your doctor. ? If you drink alcohol: ? Limit how much you have to: ? 0???1 drink a day for women who are not . ? 0???2 drinks a day for men. ? Know how much alcohol is in a drink. In the [place] one drink equals one 12 oz bottle of beer (355 mL), one 5 oz glass of wine (148 mL), or one 1?? oz glass of hard liquor (44 mL). ? Manage stress. If you need help with this, ask your doctor. ? Do exercises as told by your doctor. ? Keep all follow-up visits. Eating and drinking ? Stay at a healthy weight. ? Make sure you drink enough fluid when you: ? Exercise. ? Get sick. ? Are in hot temperatures. ? Drink enough fluid to keep your pee (urine) pale yellow. If you have diabetes: ? Know the symptoms of high blood sugar. ? Follow your diabetes management plan as told by your doctor. Make sure you: ? Take insulin and medicines as told. ? Follow your exercise plan. ? Follow your meal plan. Eat on time. Do not skip meals. ? Check your blood sugar as often as told. Make sure you check before and after exercise. If you exercise longer or in a different way, check your blood sugar more often. ? Follow your sick day plan whenever you cannot eat or drink normally. Make this plan ahead of time with your doctor. ? Share your diabetes management plan with people in your workplace, school, and household. ? Check your pee for ketones when you are ill and as told by your doctor. ? Carry a card or wear jewelry that says that you have diabetes. Where to find more information [place] Diabetes Association: www.diabetes.org Contact a doctor if: ? Your blood sugar level is at or above 240 mg/dL (13.3 mmol/L) for 2 days in a row. ? You have problems keeping your blood sugar in your target range. ? You have high blood pressure often. ? You have signs of illness, such as: ? Feeling like you may vomit (feeling nauseous). ? Vomiting. ? A fever. Get help right away if: ? Your blood sugar monitor reads high even when you are taking insulin. ? You have trouble breathing. ? You have a change in how you think, feel, or act (mental status). ? You feel like you may vomit, and the feeling does not go away. ? You cannot stop vomiting. These symptoms may be an emergency. Get medical help right away. Call your local emergency services(911 in the [place] ? Do not wait to see if the symptoms will go away. ? Do not drive yourself to the hospital. Summary ? Hyperglycemia is when the sugar (glucose) level in your blood is too high. ? High blood sugar can happen to people who have or do not have diabetes. ? Make sure you drink enough fluids and follow your meal plan. Exercise as often as told by your doctor. ? Contact your doctor if you have problems keeping your blood sugar in your target range. This information is not intended to replace advice given to you by your health care provider. Make sure you discuss any questions you have with your health care provider. Document Revised: 05/22/2021 Document Reviewed: 05/22/2021 [employer] Patient Education ?? 2022 [employer]. Medication Information gabapentin?? (GA ba PEN tin) ?? Gralise, Horizant, Neurontin? What is the most important information I should know about gabapentin? Gabapentin can cause life-threatening breathing problems, especially if you already have a breathing disorder or if you use other medicines that can make you drowsy or slow your breathing. Seek emergency medical attention if you have very slow breathing. ?? Some people have thoughts about suicide while taking seizure medicine. Stay alert to changes in your mood or symptoms.??Tell your doctor right away if you have any sudden changes in mood or behavior,or thoughts about suicide. ?? Seizures may increase if you stop using gabapentin suddenly.??Ask your doctor before stopping the medicine. ?? What is gabapentin? Gabapentin is used in adults and children at least 3 years old together with other medicines to treat partial seizures. ?? Gabapentin is also used in adults to treat nerve pain caused by shingles (herpes zoster). ?? Gralise??is used only in adults to treat nerve pain.? Horizant??is used only in adults to treat nerve pain and restless legs syndrome (RLS). ?? Gabapentin may also be used for purposes not listed in this medication guide. ?? What should I discuss with my healthcare provider before taking gabapentin? You should not take gabapentin if you are allergic to it. ?? Tell your doctor if you have or have ever had: ?breathing problems; ?diabetes; ?depression, a mood disorder, or suicidal thoughts or actions; ?drink alcohol; ?a history of drug addiction; ?a seizure; ?(patients with RLS) if you are a day sleeper or work a shift manager; or ?kidney disease (or if you are on dialysis). ?? Some people have thoughts about suicide while taking seizure medicine. Children taking gabapentin may have behavior changes. Stay alert to changes in your mood or symptoms. Your family or caregivers should also watch for sudden changes in your behavior. ?? It is not known if gabapentin will harm an unborn baby. Tell your doctor if you are or plan to become . ?? Do not start or stop seizure medication during without your doctor's advice.??Having a seizure during could harm both mother and baby.??Tell your doctor if you become . ?? If you are , your name may be listed on a registry to track the effects of gabapentin on the baby. ?? Ask a doctor if it is safe to breastfeed while using this medicine. ?? How should I take gabapentin? Follow all directions on your prescription label and read all medication guides or instruction sheets. Your doctor may occasionally change your dose. Take the medicine exactly as directed.? Never take gabapentin in larger amounts, or for longer than prescribed. ?? Your dose needs may change if you switch to a different brand, strength, or form of this medicine.??Avoid medication errors by using only the medicine your doctor prescribes. ?? You may take gabapentin with or without food. Take??Gralise??and??Horizant??with food. ?? If you break a Gabapentin tablet and take only half of it, take the other half at your next dose. Any tablet that has been broken should be used as soon as possible or within a few days. ?? Swallow the tablets of??Gralise??and??Horizant??whole. Do not crush, break, or dissolve it. Swallowthe capsule whole and do not crush, chew, break, or open it. ?? Measure??liquid medicine??with the supplied measuring device (not a kitchen spoon). ?? Doses are based on weight in children. Your child's dose may change if the child gains or loses weight. ?? You should not stop taking gabapentin suddenly.?Stopping suddenly may cause increased seizures. Follow your doctor's instructions about tapering your dose. ?? This medicine can affect the results of certain medical tests. Tell any doctor who treats you that you are using gabapentin. ?? Your kidney function may need to be checked often and your dose may change based on the results. ?? Store gabapentin??tablets??and??capsules??at room temperature away from moisture and heat. ?? Store the??liquid medicine??in the refrigerator, do not freeze.? Follow all storage instructions provided with gabapentin. Your pharmacist can provide more information about how to store this medicine. ?? What happens if I miss a dose? Take the medicine as soon as you can, but skip the missed dose if it is almost time for your next dose.??Do not??take two doses at one time.? If you take Horizant:?skip the missed dose and take your next dose at the regular time.??Do not??use two doses at one time. ?? What happens if I overdose? Seek emergency medical attention or call the Poison Help line at .??An overdose can be fatal. ?? Overdose symptoms may include slow breathing, double vision, tremor, slurred speech, drowsiness, change in your mental state, dizziness, tiredness, or diarrhea. ?? What should I avoid while taking gabapentin? Avoid driving or hazardous activity until you know how this medicine will affect you. Dizziness or drowsiness can cause falls, accidents, or severe injuries. ?? Avoid taking an antacid within 2 hours before you take gabapentin.? Do not drink alcohol.??Dangerous side effects could occur. ?? What are the possible side effects of gabapentin? Get emergency medical help if you have??signs of an allergic reaction:??hives, difficult breathing,swelling of your face, lips, tongue, or throat. ?? Seek medical treatment if you have a serious drug reaction that can affect many parts of your body.??Symptoms may include skin rash, fever, swollen glands, muscle aches, severe weakness, unusual bruising, or yellowing of your skin or eyes. ?? Tell your doctor right away if you have new or sudden changes in mood or behavior, including??new or worse depression or anxiety, panic attacks, trouble sleeping, or if you feel impulsive, irritable,agitated, hostile, aggressive, restless, more active or talkative, or have thoughts about suicide or hurting yourself. ?? Gabapentin can slow or stop your breathing, especially if you have recently used an opioid medication or alcohol.??A person caring for you should seek emergency medical attention if you have slow breathing with long pauses, blue colored lips, or if you are hard to wake up. ?? Some side effects are more likely in children taking gabapentin.??Call your doctor if the child hasany of the following side effects: behavior changes, memory problems, trouble concentrating, or acting restless, hostile, or aggressive. ?? Call your doctor at once if you have: ?drowsiness, dizziness, weakness; ?problems with balance or muscle movement; or ?increased seizures. ?? Common side effects may include: ?fever, chills, sore throat, body aches, tiredness; ?headache; ?swelling of your legs and feet; ?trouble speaking; ?vision problems, dizziness, drowsiness;?tremors, problems with balance or muscle movement; or ?nausea, vomiting. ?? This is not a complete list of side effects and others may occur. Call your doctor for medical advice about side effects. You may report side effects to FDA at 8-387-UXE-7436. ?? What other drugs will affect gabapentin? Taking gabapentin with other drugs that make you drowsy or slow your breathing can cause dangerous side effects or .??Ask your doctor before taking opioid medication, a sleeping pill, a muscle relaxer, or medicine for anxiety or seizures. ?? Tell your doctor about all your current medicines.??Many drugs can affect gabapentin, especially: ?naproxen; ?opioid medicine--hydrocodone, oxycodone, morphine, buprenorphine; ?zolpidem; ?lorazepam; or ?cimetidine. ?? This list is not complete and many other drugs may affect gabapentin.??This includes prescription and gfpy-wve-nfkfbtv medicines, vitamins, and herbal products. Not all possible drug interactions arelisted here. ?? Where can I get more information? Your doctor or pharmacist can provide more information about gabapentin. ?? Remember, keep this and all other medicines out of the reach of children, never share your medicines with others, and use this medication only for the indication prescribed. ?? Every effort has been made to ensure that the information provided by [employer]. [employer]') is accurate, up-to-date, and complete, but no guarantee is made to that effect. Drug information contained herein may be time sensitive. [employer] information has been compiled for use by healthcare practitioners and consumers in the [place] and therefore [employer] does not warrant that uses outside of the [place] are appropriate, unless specifically indicated otherwise. [employer] drug information does not endorse drugs, diagnose patients or recommend therapy. [employer] drug information isan informational resource designed to assist licensed healthcare practitioners in caring for their p atients and/or to serve consumers viewing this service as a supplement to, and not a substitute for, the expertise, skill, knowledge and judgment of healthcare practitioners. The absence of a warningfor a given drug or drug combination in no way should be construed to indicate that the drug or drug combination is safe, effective or appropriate for any given patient. [employer] does not assume any responsibility for any aspect of healthcare administered with the aid of information [employer] provides. The information contained herein is not intended to cover all possible uses, directions, precautions, warnings, drug interactions, allergic reactions, or adverse effects. If you have questions about the drugs you are taking, check with your doctor, nurse or pharmacist.? Copyright 5766-1425 [employer]. Version: 18.01. Revision Date: 02/21/2023. ? insulin glargine?? (IN jerry chio GLAR gine) ?? Basaglar KwikPen, Basaglar Tempo Pen, Insulin Glargine Prefilled Pen, Insulin Glargine Solostar Pen, Lantus, Lantus Solostar Pen, Semglee (Prefilled Pen), Semglee (Vial), Toujeo Max SoloStar, Toujeo SoloStar? What is the most important information I should know about insulin glargine? Never share an injection pen, even if you changed the needle. ?? What is insulin glargine? Insulin glargine is a??long-acting??insulin that starts to work several hours after injection and keeps working evenly for 24 hours. ?? Insulin glargine is used to improve blood sugar control in people with diabetes mellitus.? Toujeo??is for use in adults with type 1 or type 2 diabetes. ?? Basaglar, Lantus,??and??Semglee??are for use in adults with type 1 or 2 diabetes and in children atleast 6 years old with type 1 diabetes (not type 2). ?? For type 1 diabetes, insulin glargine is used together with a??short- acting??insulin given before meals. ?? Insulin glargine may also be used for purposes not listed in this medication guide. ?? What should I discuss with my healthcare provider before using insulin glargine? You should not use this medicine if you are allergic to insulin, or if you are having an episode ofhypoglycemia (low blood sugar) or diabetic ketoacidosis (call your doctor for treatment). ?? Insulin glargine is not approved for use by anyone younger than 6 years old, and some brands are for use only in adults.??Do not use this medicine to treat type 2 diabetes in a child of any age. ?? Tell your doctor if you have ever had:?liver or kidney disease; or ?heart failure or other heart problems. ?? Tell your doctor if you also take pioglitazone or rosiglitazone (sometimes contained in combinations with glimepiride or metformin).??Taking certain oral diabetes medicines while you are using insulin may increase your risk of serious heart problems. ?? Tell your doctor if you are or . ?? Follow your doctor's instructions about using this medicine??if you are or you become .??Controlling diabetes is very important during .? How should I use insulin glargine? Follow all directions on your prescription label and read all medication guides or instruction sheets. Use the medicine exactly as directed. ?? Insulin glargine is injected under the skin, usually once per day at the same time of day.? When treating type 1 diabetes, use your??short-acting??insulin before meals as directed by your doctor. ?? Insulin glargine must not be given with an insulin pump, or mixed with other insulins.??Do not inject insulin glargine into a vein or a muscle. ?? Ask your doctor or pharmacist if you don't understand how to use an injection. ?? Prepare an injection only when you are ready to give it.??Call your pharmacist if the medicine looks cloudy, has changed colors, or has particles in it. ?? Your healthcare provider will show you where to inject insulin glargine. Do not inject into the same place two times in a row. ?? Avoid injecting into skin that is damaged, tender, bruised, pitted, thickened, scaly, or has a scaror hard lump. ?? Toujeo??contains 300 units of insulin glargine per milliliter (mL), which is 3 times stronger than brands that contain 100 units per mL.? Your dose needs may change if you switch to a different brand, strength, or form of this medicine.??Avoid medication errors by using only the medicine your doctor prescribes. ?? If you use an injection pen,??use only the injection pen that comes with insulin glargine. Attach anew needle before each use. Do not transfer the insulin from the pen into a syringe. ?? Never share an injection pen, even if you changed the needle.??Sharing these devices can pass infections from person to person. ?? Blood sugar can be affected by stress, illness, surgery, exercise, alcohol use, or skipping meals.? Low blood sugar??(hypoglycemia)??can make you feel very hungry, dizzy, irritable, or shaky. To quickly treat hypoglycemia, eat or drink hard candy, crackers, raisins, fruit juice, or non-diet soda. Your doctor may prescribe glucagon injection in case of severe hypoglycemia. ?? Tell your doctor if you have frequent symptoms of high blood sugar??(hyperglycemia)??such as increased thirst or urination.??Ask your doctor before changing your medication dosage. ?? Keep this medicine in its original container protected from heat and light. Do not freeze insulin or store it near the cooling element in a refrigerator.??Throw away any insulin that has been frozen. ?? Storing unopened (not in use) insulin glargine: ?Refrigerate and use until expiration date; or ?(Basaglar, Lantus, or Semglee)??Store at room temperature (below 86 degrees Fahrenheit) and usewithin 28 days. ?? Storing opened (in use) insulin glargine: ?Store the??vial??in a refrigerator or at room temperature and use within 28 days.?Store the??injection pen??at room temperature??(do not refrigerate)??and use within 28 days.?Store??Toujeo??at room temperature below 86 F (do not refrigerate) and use within 56 days. ?? Do not store an injection pen with the needle attached.??Do not reuse a needle or syringe. Place them in a puncture-proof 'sharps' container and dispose of it following state or local laws. Keep out of the reach of children and pets. ?? Wear a medical alert tag or carry an ID card to let others know you have diabetes. ?? What happens if I miss a dose? Call your doctor for instructions if you miss a dose.??Do not??use more than one dose in a 24-hour period unless your doctor tells you to. ?? Get your prescription refilled before you run out of medicine completely. ?? What happens if I overdose? Seek emergency medical attention or call the Poison Help line at .??Insulin overdose can cause severe hypoglycemia.??Symptoms include drowsiness, confusion, blurred vision, numbness or tingling in your mouth, trouble speaking, muscle weakness, clumsy or jerky movements, seizure (convulsions), or loss of consciousness. ?? What should I avoid while using insulin glargine? Avoid driving or hazardous activity until you know how this medicine will affect you. Your reactions could be impaired. ?? Avoid medication errors by always checking the medicine label before injecting your insulin. ?? Avoid drinking alcohol or using medicines that contain alcohol. It may interfere with your diabetestreatment.? What are the possible side effects of insulin glargine? Get emergency medical help if you have??signs of insulin allergy:??redness or swelling where an injection was given, itchy skin rash over the entire body, trouble breathing, fast heartbeats, feeling like you might pass out, or swelling in your tongue or throat. ?? Call your doctor at once if you have: ?rapid weight gain, swelling in your feet or ankles; ?shortness of breath; or ?low blood potassium--leg cramps, constipation, irregular heartbeats, fluttering in your chest, increased thirst or urination, numbness or tingling, muscle weakness or limp feeling. ?? Common side effects may include: ?low blood sugar; ?swelling, weight gain; ?allergic reaction, itching, rash; or ?thickening or hollowing of the skin where you injected the medicine. ?? This is not a complete list of side effects and others may occur. Call your doctor for medical advice about side effects. You may report side effects to FDA at 6-389-WLX-8703. ?? What other drugs will affect insulin glargine? Many drugs can affect your blood sugar and may also affect insulin glargine. This includes prescription and hxvo-vwb-vkzalmn medicines, vitamins, and herbal products.??Tell your doctor about all other medicines you use.??Not all possible interactions are listed here.? Where can I get more information? Your pharmacist can provide more information about insulin glargine. ?? Remember, keep this and all other medicines out of the reach of children, never share your medicines with others, and use this medication only for the indication prescribed. ?? Every effort has been made to ensure that the information provided by [employer] is accurate, up-to-date, and complete, but no guarantee is made to that effect. Drug information contained herein may be time sensitive. [employer] information has been compiled for use by healthcare practitioners and consumers in the [place] and therefore [employer] does not warrant that uses outside of the [place] are appropriate, unless specifically indicated otherwise. [employer] drug information does not endorse drugs, diagnose patients or recommend therapy. [employer] drug information isan informational resource designed to assist licensed healthcare practitioners in caring for their p atients and/or to serve consumers viewing this service as a supplement to, and not a substitute for, the expertise, skill, knowledge and judgment of healthcare practitioners. The absence of a warningfor a given drug or drug combination in no way should be construed to indicate that the drug or drug combination is safe, effective or appropriate for any given patient. [employer] does not assume any responsibility for any aspect of healthcare administered with the aid of information [employer] provides. The information contained herein is not intended to cover all possible uses, directions, precautions, warnings, drug interactions, allergic reactions, or adverse effects. If you have questions about the drugs you are taking, check with your doctor, nurse or pharmacist.? Copyright 3434-4510 [employer]. Version: 17.. Revision Date: 04/01/2023. ? duloxetine?? (du LOX e teen) ?? Cymbalta, Drizalma Alec, Irenka? What is the most important information I should know about duloxetine? People with depression or mental illness may have thoughts about suicide. Some young people may have increased suicidal thoughts when first starting a medicine to treat depression.??Tell your doctor right away if you have any sudden changes in mood or behavior, or thoughts about suicide. ?? Do not stop using duloxetine without first asking your doctor.? What is duloxetine? Duloxetine is a serotonin and norepinephrine reuptake inhibitor antidepressant (SNRI).? Duloxetine is used to treat major depressive disorder in adults. Duloxetine is also used to treat general anxiety disorder in adults and children at least 7 years old. ?? Duloxetine is also used in adults to treat diabetic nerve pain or chronic muscle or joint pain (such as low back pain and osteoarthritis pain). ?? Some brands of duloxetine are also used to treat fibromyalgia (a chronic pain disorder).??Drizalma??is for treating fibromyalgia only in adults.??Cymbalta??may be used to treat fibromyalgia in adultsand children at least 13 years old. ?? Duloxetine may also be used for purposes not listed in this medication guide. ?? What should I discuss with my healthcare provider before taking duloxetine? You should not use duloxetine if you are allergic to it. ?? Do not take duloxetine within 5 days before or 14 days after you have used an MAO inhibitor,??such as isocarboxazid, linezolid, methylene blue injection, phenelzine, or tranylcypromine. A dangerous drug interaction could occur.? Tell your doctor if you also take stimulant medicine, opioid medicine, herbal products, or medicinefor depression, mental illness, Parkinson's disease, migraine headaches, serious infections, or prevention of nausea and vomiting.??An interaction with duloxetine could cause a serious condition called serotonin syndrome. ?? Not approved for use by anyone younger than 7 years old.? Tell your doctor if you have ever had: ?heart problems, high blood pressure; ?liver or kidney disease; ?slow digestion; ?a seizure; ?bleeding problems; ?sexual problems; ?narrow-angle glaucoma; ?bipolar disorder (manic depression);?drug addiction or suicidal thoughts; or ?if you drink large amounts of alcohol. ?? People with depression or mental illness may have thoughts about suicide. Some young people may have increased suicidal thoughts when first starting a medicine to treat depression. Stay alert to changes in your mood or symptoms. Your family or caregivers should also watch for sudden changes in yourbehavior. ?? Taking this medicine during could harm the baby, but stopping the medicine may not be safe for you.??Do not start or stop duloxetine without asking your doctor. ?? If you are , your name may be listed on a registry to track the effects of duloxetine on the baby. ?? If you are , tell your doctor if you notice drowsiness, feeding problems, and slow weight gain in the nursing baby. ?? How should I take duloxetine? Follow all directions on your prescription label and read all medication guides or instruction sheets. Your doctor may occasionally change your dose. Use the medicine exactly as directed. ?? Taking duloxetine in higher doses or more often than prescribed will not make it more effective, and may increase side effects.? Swallow the capsule whole and do not crush, chew, break, or open it. ?? Take with or without food. ?? Your blood pressure will need to be checked often.? Tell your doctor if you have any changes in sexual function,??such as loss of interest in sex, trouble having an orgasm, or (in men) problems with erections or ejaculation. Some sexual problems can be treated. ?? Your symptoms may not improve for up to 4 weeks.? Do not stop using duloxetine suddenly, or you could have unpleasant symptoms (such as agitation, confusion, tingling or electric shock feelings). Ask your doctor before stopping the medicine. ?? Store at room temperature away from moisture and heat. ?? What happens if I miss a dose? Take the medicine as soon as you can, but skip the missed dose if it is almost time for your next dose.??Do not??take two doses at one time.? What happens if I overdose? Seek emergency medical attention or call the Poison Help line at . ?? Overdose symptoms may include vomiting, dizziness or drowsiness, seizures, fast heartbeats, fainting, or coma. ?? What should I avoid while taking duloxetine? Ask your doctor before taking a nonsteroidal anti-inflammatory drug (NSAID) such as aspirin, ibuprofen, naproxen, Advil, Aleve, Motrin, and others. Using an NSAID with duloxetine may cause you to bruise or bleed easily.? Avoid driving or hazardous activity until you know how this medicine will affect you. Dizziness or drowsiness can cause falls, accidents, or severe injuries. ?? Avoid getting up too fast from a sitting or lying position, or you may feel dizzy.? Drinking alcohol may increase your risk of liver damage, especially if you take??Drizalma. ?? What are the possible side effects of duloxetine? Get emergency medical help if you have??signs of an allergic reaction??(hives, difficult breathing,swelling in your face or throat)??or a severe skin reaction??(fever, sore throat, burning eyes, skin pain, red or purple skin rash with blistering and peeling). ?? Tell your doctor right away if you have new or sudden changes in mood or behavior, including??new or worse depression or anxiety, panic attacks, trouble sleeping, or if you feel impulsive, irritable,agitated, hostile, aggressive, restless, more active or talkative, or have thoughts about suicide or hurting yourself. ?? Call your doctor at once if you have: ?pounding heartbeats or fluttering in your chest; ?a light-headed feeling, like you might pass out; ?easy bruising, unusual bleeding; ?vision changes; ?painful or difficult urination;?liver problems--right-sided upper stomach pain, itching, dark urine, jaundice (yellowing of theskin or eyes); ?low blood sodium--headache, confusion, problems with thinking or memory, weakness, feeling unsteady; or ?manic episodes--racing thoughts, increased energy, decreased need for sleep, risk-taking behavior, being agitated or talkative. ?? Seek medical attention right away if you have symptoms of serotonin syndrome, such as:?agitation, hallucinations, fever, sweating, shivering, fast heart rate, muscle stiffness, twitching, loss of coordination, nausea, vomiting, or diarrhea. ?? Common side effects may include: ?drowsiness; ?nausea, constipation, loss of appetite;?dry mouth; or ?increased sweating. ?? This is not a complete list of side effects and others may occur. Call your doctor for medical advice about side effects. You may report side effects to FDA at 6-442-TTN-6990. ?? What other drugs will affect duloxetine? Sometimes it is not safe to use certain medications at the same time.?Some drugs can affect yourblood levels of other drugs you take, which may increase side effects or make the medications less effective.? Many drugs can affect duloxetine.??This includes prescription and [id number] medicines, vitamins, and herbal products.??Not all possible interactions are listed here.??Tell your doctor about all other medicines you use. ?? Where can I get more information? Your pharmacist can provide more information about duloxetine. ?? Remember, keep this and all other medicines out of the reach of children, never share your medicines with others, and use this medication only for the indication prescribed. ?? Every effort has been made to ensure that the information provided by [employer]. ('[employer]') is accurate, up-to-date, and complete, but no guarantee is made to that effect. Drug information contained herein may be time sensitive. [employer] information has been compiled for use by healthcare practitioners and consumers in the [place] and therefore [employer] does not warrant that uses outside of the [place] are appropriate, unless specifically indicated otherwise. [employer]'s drug information does not endorse drugs, diagnose patients or recommend therapy. [employer] drug information isan informational resource designed to assist licensed healthcare practitioners in caring for their p atients and/or to serve consumers viewing this service as a supplement to, and not a substitute for, the expertise, skill, knowledge and judgment of healthcare practitioners. The absence of a warningfor a given drug or drug combination in no way should be construed to indicate that the drug or drug combination is safe, effective or appropriate for any given patient. [employer] does not assume any responsibility for any aspect of healthcare administered with the aid of information [employer] provides. The information contained herein is not intended to cover all possible uses, directions, precautions, warnings, drug interactions, allergic reactions, or adverse effects. If you have questions about the drugs you are taking, check with your doctor, nurse or pharmacist.? Copyright 9393-4502 [employer]. Version: .. Revision Date: 06/22/2021. ? Patient/Director Of Ancillary Services Signature Patient Name:EMMANUEL SALAZAR I have received this information and my questions have been answered. Patient/Director Of Ancillary Services Name: Patient/Director Of Ancillary Services Signature: Relationship to Patient: Witness Name/Signature: Date: Electronically Signed on: 10/14/2023 12:26 ESTSigned by:SO Physician Emergency department Note * IMANI Rubalcava: PERFORM Event Display: ED Note Physician Authored Date: [id number] EMMANUEL SALAZAR :1960 Age:62 years Sex:Female Visit Date:10/13/2023 Basic Information Time Seen: IMANI Rubalcava / 10/13/2023 17:52 Chief Complaint Stated depressed and SI with a plan. ??Father 10 days ago and hasn't been eating. ??Also BGL is 456 per EMS. ??IV 20g R hand with 500cc NS by EMS. History Of Present Illness: The patient is a 62-year-old female who presents to the emergency department by EMS for mental health evaluation.?? The patient states that she presented to the PCP office today??looking for medication to help her sleep. ??She states that her aunt who she was very close to in April.??She states that her father on 10/02. ??She has been struggling??with her father's .?? She states that she stopped taking her medications in April.?? She has lost about 23 pounds. ??She states that??if she wanted to end her life she would starve herself. ??She does note howevershe has been drinking water and she has been having about 1 meal a day.?? She does note that she has access to a firearm in the house but??does not have a plan to shoot herself.?? She??states that her son lives with her.?? She does have a history of type 2 diabetes and is supposed to be on insulin and glipizide. ??She also??notes a history of thyroid disorder.?She??denies any??cough or shortness of breath. ??She denies any abdominal pain.?? She has been afebrile.?? She denies any urinary complaints. Review of Systems: Review of systems as noted in the HPI. Physical Exam Vitals & Measurements T:??37.8?C ??(Temporal Artery)?? HR:??83??(Monitored)?? RR:??18?? BP:??123/83?? SpO2:??98%?? HT:??154.94??cm?? WT:??72.57??kg?? BMI:??30.23?? O2 Therapy:??Room air?? GENERAL:??No apparent distress, well appearing. SKIN:??Warm, dry, no rash. EYES:??Pupils are equally round, extraocular movements intact. HENT:??Normocephalic, atraumatic, moist mucus membranes. NECK:??Nontender and supple with no nuchal rigidity, no lymphadenopathy, full range of motion. PULMONARY:??Clear to auscultation without wheezes, rhonchi or rales CARDIOVASCULAR:??Regular rate and rhythm. ??No appreciated murmurs. ABDOMEN:??Soft, non-tender, non-distended, no palpable masses, no rebound or guarding, bowel soundspresent. GENITOURINARY:??No costovertebral angle tenderness to palpation. LYMPHATICS:??No edema in lower extremities. MUSCULOSKELETAL:?? Moves all extremities without difficulty. NEUROLOGIC:??Alert and oriented x 3, normal mentation and speech. ??Moves all extremities x 4 without motor or sensory deficit. Medical Decision Making: The patient is a 62-year-old female who presents to the emergency department for??mental health evaluation.?? The patient??has a history of??depression, diabetes and??thyroid disorder. ??She has??notbeen on medications since April. ??She states that she has been struggling with the loss of??her aunt in April??and father??on 10/02.?? She??went to the primary care office today looking for help with sleeping. ??She felt like maybe if she slept she would want to eat something in the morning. ??She??did??express that she wanted to starve herself??however she does note that she has been drinking water and eating 1 meal a day.?? She did report that she has access to a firearm but has no plan to??shoot herself.?? The provider was quite concerned and therefore the patient was referred to the emergency department for further evaluation.?? Unfortunately the patient has not been compliant with her medications for quite some time. ??Laboratory studies were obtained??and significant for a??blood sugar of 736. ??She was given IV fluids and??12 units of insulin??subcutaneously.?Recheck of??blood sugar??was 464. ??The patient was evaluated by mental health.?? The patient's son is hesitant for the patient to be??discharged??as??she does not have any set follow-up plan.?? Given the patie nt's??hyperglycemia??and??noncompliance with medication??coupled with her??depression I do feel that is reasonable to??keep the patient??overnight for further management and??to help facilitate outpatient follow-up.?? The hospitalist was consulted for??admission.?? Supervising physician Dr. Chi. Procedure No Qualifying Data Assessment/Plan 1.??Depression??F32.A 2.??Uncontrolled type 2 diabetes mellitus with hyperglycemia??E11.65 Orders: CV Electrocardiogram 12 Lead, 10/13/23 18:09:00 EST, Routine, Reason: Other (please specify), Stop date and time 10/13/23 18:09:00 EST, ORD_SET_REQ_DT_RANGE, Feliciano's Internal Person Id Problem List/Past Medical History Ongoing No qualifying data Historical No qualifying data Medication Administration Given NS drip, 1000 mL, Medication Bolus insulin regular 100 units/mL human recombinant injectable solution, 12 units, Subcutaneous Allergies lisinopril erythromycin metFORMIN Social History Alcohol Never Electronic Cigarette/Vaping Electronic Cigarette Use: Never. Tobacco Never tobacco user Tobacco Use:. Lab Results CBC and Differential?? LATEST RESULTS?? WBC?? 10/13/23 18:22?? 5.7?? RBC?? 10/13/23 18:22?? 4.95?? Hgb?? 10/13/23 18:22?? 15.6?? Hct?? 10/13/23 18:22?? 46.5?? MCV?? 10/13/23 18:22?? 93.8?? MCH?? 10/13/23 18:22?? 31.5 ??High?? MCHC?? 10/13/23 18:22?? 33.6?? RDW-CV?? 10/13/23 18:22?? 14.5?? Platelets?? 10/13/23 18:22?? 143?? MPV?? 10/13/23 18:22?? 10.5 ??High?? Neutro Auto?? 10/13/23 18:22?? 66.6?? Lymph Auto?? 10/13/23 18:22?? 24.7?? [place] Auto?? 10/13/23 18:22?? 6.8?? Eos, Auto?? 10/13/23 18:22?? 1.20?? Basophil Auto?? 10/13/23 18:22?? 0.7?? Neutro Absolute?? 10/13/23 18:22?? 3.8?? Lymph Absolute?? 10/13/23 18:22?? 1.4?? [place] Absolute?? 10/13/23 18:22?? 0.4?? Eos Absolute?? 10/13/23 18:22?? 0.1?? Baso Absolute?? 10/13/23 18:22?? 0.0? Routine Chemistry?? LATEST RESULTS?? Sodium Level?? 10/13/23 18:22?? 127 ??Low?? Potassium Level?? 10/13/23 18:22?? 4.2?? Chloride Level?? 10/13/23 18:22?? 95 ??Low?? CO2?? 10/13/23 18:22?? 23?? Alk Phos?? 10/13/23 18:22?? 146 ??High?? AST?? 10/13/23 18:22?? 50 ??High?? ALT?? 10/13/23 18:22?? 57 ??High?? BUN?? 10/13/23 18:22?? 16?? Glucose Level?? 10/13/23 18:22?? 736 ??Critical?? Creatinine Level?? 10/13/23 18:22?? 0.90?? BUN/Creat Ratio?? 10/13/23 18:22?? 17.8?? eGFR CKD-EPI?? 10/13/23 18:22?? 73?? Calcium Level?? 10/13/23 18:22?? 9.1?? Protein Total?? 10/13/23 18:22?? 6.5?? Albumin Level?? 10/13/23 18:22?? 3.8?? Globulin?? 10/13/23 18:22?? 2.7?? A/G Ratio?? 10/13/23 18:22?? 1.4?? Bilirubin Total?? 10/13/23 18:22?? 0.5?? Anion Gap?? 10/13/23 18:22?? 9.0?? Osmolality?? 10/13/23 18:22?? 292?? Glucose POC?? 10/13/23 21:12?? 464? Thyroid Studies?? LATEST RESULTS?? TSH?? 10/13/23 18:22?? 1.43? Serum Toxicology?? LATEST RESULTS?? Acetaminophen Level?? 10/13/23 18:22?? <10.0?? Salicylate Level?? 10/13/23 18:22?? <2.5?? Ethanol Level?? 10/13/23 18:22?? SEE COMMENT?? Instr Ethanol Lvl?? 10/13/23 18:22?? <10? Urine Toxicology?? LATEST RESULTS?? U Amph Scrn?? 10/13/23 18:22?? Negative?? U Monalisa Scrn?? 10/13/23 18:22?? Negative?? U Benzodia Scrn?? 10/13/23 18:22?? Negative?? U Buprenorph Scr?? 10/13/23 18:22?? Negative?? U Cocaine Scrn?? 10/13/23 18:22?? Negative?? U Fentanyl Scr?? 10/13/23 18:22?? Negative?? U THC Scr?? 10/13/23 18:22?? Negative?? U Methadone Scr?? 10/13/23 18:22?? Negative?? U Opiate Scrn?? 10/13/23 18:22?? Negative?? U Oxy Scrn?? 10/13/23 18:22?? Negative?? U PCP Scrn?? 10/13/23 18:22?? NEGAITVE?? U PPX Scr?? 10/13/23 18:22?? Negative? UA Macroscopic?? LATEST RESULTS?? Urine Srce?? 10/13/23 18:22?? Clean Catch?? UA Color?? 10/13/23 18:22?? Yellow?? UA Appear?? 10/13/23 18:22?? Clear?? UA Glucose?? 10/13/23 18:22?? >=1000 Abnormal?? UA Bili?? 10/13/23 18:22?? Negative?? UA Ketones?? 10/13/23 18:22?? Negative?? UA Spec Grav?? 10/13/23 18:22?? <=1.005?? UA Blood?? 10/13/23 18:22?? Negative?? UA pH?? 10/13/23 18:22?? 7.00?? UA Protein?? 10/13/23 18:22?? Negative?? UA Urobilinogen?? 10/13/23 18:22?? 0.2?? UA Nitrite?? 10/13/23 18:22?? Negative?? UA Leuk Est?? 10/13/23 18:22?? Negative? Electronically Signed on 10/13/23 09:41 PM IMANI Rubalcava Nutrition and dietetics Progress note * Nae Mena: PERFORM Event Display: Nutrition Note Authored Date: [id number] Assessment and Monitoring Referral: poor nutrition viviana score ?? 62 yo F admit with BS >700. Poor intakes noted and sounds like not taking medication r/t cost. Patient getting ready for discharge during visit. Does report eating less, had a couple deaths in the family over the past few months. Lives with son, but she does the cooking. Doesn't have teeth soavoids some foods. says can be a picky eater. can graze during the day. says shes has diabetes since 11, but unclear, she is on glipizide and insulin. says she's seen diabetes outpatient before, no current questions and was getting ready to leave. did accept tuna sandwich and diet coke for lunch. enc to avoid going long periods without eating topromote adequate glycemic control. ?? Anthropometrics/Estimated Needs Kklekz81.57 kg(Recorded: 10/13/2023 23:50 EST) Drgrri134.94 cm(Recorded: 10/13/2023 23:50 EST) Body Mass Index30.23 kg/m2(Recorded: 10/13/2023 23:50 EST) Reason for Visit hyperglycemia Problem List/Past Medical History Ongoing Depression Uncontrolled type 2 diabetes mellitus with hyperglycemia Historical No qualifying data Social History Alcohol Never Electronic Cigarette/Vaping Electronic Cigarette Use: Never. Tobacco Never tobacco user Tobacco Use:. Diet Orders Diet Order, 10/13/23 22:06:00 EST, Consistent Carbohydrates, Safety Precaution Allergies lisinopril??(Cough at rest) erythromycin??(Vomit, Rash) metFORMIN??(Vomit) Nutrition Lab Results Test Name Test Result Date/Time WBC 5.0 K/mcL 10/14/2023 06:30 EST Hgb 14.4 g/dL 10/14/2023 06:30 EST Hct 42.3 % 10/14/2023 06:30 EST MCV 93.0 fL 10/14/2023 06:30 EST Platelets 127 K/mcL 10/14/2023 06:30 EST Sodium Level 138 mmol/L 10/14/2023 06:30 EST Potassium Level 4.2 mmol/L 10/14/2023 06:30 EST Chloride Level 108 mmol/L 10/14/2023 06:30 EST CO2 25 mmol/L 10/14/2023 06:30 EST Alk Phos 109 IntlUnit/L 10/14/2023 00:40 EST ALT 47 IntlUnit/L 10/14/2023 00:40 EST BUN 9 mg/dL 10/14/2023 06:30 EST Glucose Level 249 mg/dL 10/14/2023 06:30 EST Creatinine Level 0.80 mg/dL 10/14/2023 06:30 EST Albumin Level 3.3 g/dL 10/14/2023 00:40 EST Bilirubin Total 0.4 mg/dL 10/14/2023 00:40 EST Magnesium Level 2.0 mg/dL 10/14/2023 06:30 EST Medications Inpatient Dextrose 50% injection, 25 g= 50 mL, IV Push, As Directed enoxaparin, 40 mg= 0.4 mL, Subcutaneous, Daily glucagon, 1 mg= 1 EA, Subcutaneous, As Directed insulin aspart Sliding Scale - Medium Dose, Insulin Aspart Sliding Scale See Comments, Subcutaneous, AC & bedtime insulin glargine, 7 units= 0.07 mL, Subcutaneous, every evening Protonix, 40 mg= 1 tab, Oral, Daily Home acetaminophen 500 mg oral tablet, 500 mg= 1 tab, Oral, every 4 hr, PRN alendronate 70 mg oral tablet, 70 mg= 1 tab, Oral, every week aspirin 81 mg oral delayed release tablet, 81 mg= 1 tab, Oral, Daily calcium (as carbonate)-vitamin D 600 mg-400 intl units oral tablet, 1 tab, Oral, BID cyclobenzaprine 5 mg oral tablet, 5 mg= 1 tab, Oral, TID, PRN DULoxetine 40 mg oral delayed release capsule, 40 mg= 1 cap, Oral, Daily gabapentin 300 mg oral capsule, 300 mg= 1 cap, Oral, BID glipiZIDE 10 mg oral tablet, extended release, 10 mg= 1 tab, Oral, BID hydrOXYzine pamoate 50 mg oral capsule, 50 mg= 1 cap, Oral, BID ibuprofen 400 mg oral tablet, 400 mg= 1 tab, Oral, every 4 hr, PRN insulin glargine 100 units/mL subcutaneous solution, 25 units, Subcutaneous, every night at bedtime losartan 25 mg oral tablet, 25 mg= 1 tab, Oral, Daily omeprazole 40 mg oral delayed release capsule, 40 mg= 1 cap, Oral, Daily Thera-Joanne M oral tablet, 1 tab, Oral, Daily topiramate 100 mg oral tablet, 100 mg= 1 tab, Oral, BID Electronically Signed on 10/14/23 03:21 PM Couture, Nae History and physical note * Rashad Burden APRN: MODIFY, MODIFY, MODIFY, PERFORM, MODIFY Event Display: History and Physical Authored Date: [id number] EMMANUEL SALAZAR :1960 Age:62 years Sex:Female Visit Date:10/13/2023 Chief Complaint Stated depressed and SI with a plan. ??Father 10 days ago and hasn't been eating. ??Also BGL is 456 per EMS. ??IV 20g R hand with 500cc NS by EMS. History of Present Illness 62 yr old female with type 2 DM, HTN, hypothyroidism sent from pcp?? for further evaluation for expressing desire to starve herself to . She went to pcp this morning to get help with sleep. She has not been on any of her medications since April. She says this is??due to cost. She says she has depression and was on doluxetine before she stopped.??Her depression seemed to worsen when?? an Aunt she was close to?? in April and most recently her father in 10/02. She then only started eating one meal a day. She has not been checking her sugars. She knew she was also on losartan for HTN. Patient noted she had been drinking more water and had been voiding a lot as well. In theED her blood sugar was 736. ??She was given IV fluids and??12 units of insulin??subcutaneously.?Recheck of??blood sugar??was 464. On assessment pt is calm, pleasant. Denies plan to hurt herself or others?? saying??if I would hurt myself it would be by starving. However, when I explained the plan for treating her hyperglycemiawith insulin shots she mentions that she would need to eat something saying she does not want her blood sugars dropping too low or bottom out. She denies homicidal ideations. ??She denies fever, chills, COLBERT, lightheadedness, nausea, vomiting, cough, dysuria. Labs no leukocytosis, no anemia, chemistry Na 127 but corrected for glucose of 736 its normal at 137, K ??4.2, Cl 95, CO2 23, AG 9, alk phos 146, AST 50, ALT 57 TSH 1.43, UA neg for UTI, Urine glucose >1000, Utox neg. She was seen by [facility] and not considered suicidal with recommendation to follow up with [facility] as she lives in [place].??Pt could have been discharged as she will not be a voluntary admit or IEA. ??However, son is not comfortable taking her home tonight so Conrad recommends observe overnight control blood sugars and (per??Dr. Chi)??[facility] will follow up with her in themorning. Review of Systems per HPI Physical Exam Vitals & Measurements T:??37.8?C ??(Temporal Artery)?? HR:??83??(Monitored)?? RR:??18?? BP:??123/83?? SpO2:??98%?? HT:??154.94??cm?? WT:??72.57??kg?? BMI:??30.23?? O2 Therapy:??Room air?? General: Alert and oriented, well nourished,?No??acute distress Eye: PERRL, EOMI,?Normal??conjunctiva HENT: Normocephalic, atraumatic Neck:?No??lymphadenopathy Lungs:??Clear??to auscultation ,?Non-labored?? respiration Heart:?Normal?? rate,?Regular??rhythm Abdomen: Soft, non-tender, non-distended,?Normal?? bowel sounds,?? Musculoskeletal:?Normal?? range of motion and strength,?No??tenderness,?No??swelling Skin: Skin is warm, dry and pink,?No??rashes,?No??lesions Neurologic: Awake, alert and oriented X4, CN II-XII intact Psychiatric: Cooperative,calm Assessment/Plan 1.??Depression??F32.A not suicidal per [facility] but need to follow up with [place] [facility] outpatient. was not IEA or for voluntary admit pt had stopped medications since April. no medication recommended, [facility] to reevaluate pt in am will be under close observation tonight pt denies SI/HI ?? 2.??Uncontrolled type 2 diabetes mellitus with hyperglycemia??E11.65 consistent carbohydrate diet ISS aspart medium dose ACHS pt says she used to be on 25 units of lantus daily before stopping in April will give 7 units subcutaneous tonight NS at 150 cc/hr ? dvt prophylaxis: lovenox code status : full code ? Orders: Tylenol, 650 mg = 2 tab, Oral, Tab, every 6 hr for 30 days, PRN pain, First Dose: 10/13/23 22:03:00EST, Stop Date: 11/12/23 22:02:00 EDT, Physician Stop, Routine enoxaparin, 40 mg = 0.4 mL, Subcutaneous, Injection, Daily, First Dose: 10/14/23 9:00:00 EST, Routine glucagon, 1 mg = 1 EA, Subcutaneous, Injection, As Directed, First Dose: 10/13/23 21:59:00 EST, Physician Stop, Routine Dextrose 50% injection, 25 g = 50 mL, IV Push, Injection, As Directed, First Dose: 10/13/23 21:59:00 EST, Physician Stop, Routine insulin aspart Sliding Scale - Medium Dose, Insulin Aspart Sliding Scale See Comments, Subcutaneous, Injection, AC & bedtime, First Dose: 10/14/23 7:30:00 EST, Routine insulin glargine, 7 units = 0.07 mL, Subcutaneous, Soln, every evening, First Dose: 10/13/23 23:15:00 EST, Physician Stop, Routine Protonix, 40 mg = 1 tab, Oral, Tab-DR, Daily for 30 days, First Dose: 10/14/23 6:30:00 EST, Stop Date: 11/13/23 6:29:00 EDT, Physician Stop, Routine Basic Metabolic Panel, Blood, Routine, 10/13/23 21:59:00 EST, every morning, for 3 days, Lab Collect CBC w/ Diff, Blood, Routine, 10/13/23 21:59:00 EST, every morning, for 3 days, Lab Collect Comprehensive Metabolic Panel, Blood, Timed Study, 10/14/23 0:00:00 EST, Once, Lab Collect Continuous Observation, 10/13/23 22:05:00 EST, Constant Order, 10/13/23 22:05:00 EST Diet Order, 10/13/23 22:06:00 EST, Consistent Carbohydrates, Safety Precaution Magnesium Level, Blood, Routine, 10/13/23 21:59:00 EST, every morning, for 3 days, Lab Collect Patient Condition, 10/13/23 21:58:00 EST, Condition Guarded PSO Admit to Inpatient, [facility], Inpatient, 10/13/23 21:54:00 EST, 10/13/23 21:54:00 EST, 10/13/23 21:54:00 EST, 1 midnight or less Resuscitation Status, 10/13/23 21:58:00 EST, Full Code Up ad Ejnnifer, 10/13/23 21:58:00 EST, Constant Order, at nurse's discretion, 10/13/23 21:58:00 EST Vital Signs, 10/13/23 21:58:00 EST, every 4 hr (ryan) Problem List/Past Medical History Ongoing No qualifying data Historical No qualifying data Medications Inpatient Dextrose 50% injection, 25 g= 50 mL, IV Push, As Directed enoxaparin, 40 mg= 0.4 mL, Subcutaneous, Daily glucagon, 1 mg= 1 EA, Subcutaneous, As Directed insulin aspart Sliding Scale - Medium Dose, Insulin Aspart Sliding Scale See Comments, Subcutaneous, AC & bedtime insulin glargine, 7 units= 0.07 mL, Subcutaneous, every evening Protonix, 40 mg= 1 tab, Oral, Daily Sodium Chloride 0.9% 1,000 mL, 1000 mL, IV Tylenol, 650 mg= 2 tab, Oral, every 6 hr, PRN Home No active home medications Allergies lisinopril erythromycin metFORMIN Social History Alcohol Never Electronic Cigarette/Vaping Electronic Cigarette Use: Never. Tobacco Never tobacco user Tobacco Use:. Lab Results Test Name Test Result Date/Time WBC 5.7 K/mcL 10/13/2023 18:22 EST RBC 4.95 Million/mcL 10/13/2023 18:22 EST Hgb 15.6 g/dL 10/13/2023 18:22 EST Hct 46.5 % 10/13/2023 18:22 EST MCV 93.8 fL 10/13/2023 18:22 EST MCH 31.5 pg 10/13/2023 18:22 EST MCHC 33.6 g/dL 10/13/2023 18:22 EST RDW-CV 14.5 % 10/13/2023 18:22 EST Platelets 143 K/mcL 10/13/2023 18:22 EST MPV 10.5 fL 10/13/2023 18:22 EST Neutro Auto 66.6 % 10/13/2023 18:22 EST Lymph Auto 24.7 % 10/13/2023 18:22 EST [place] Auto 6.8 % 10/13/2023 18:22 EST Eos, Auto 1.20 % 10/13/2023 18:22 EST Basophil Auto 0.7 % 10/13/2023 18:22 EST Neutro Absolute 3.8 K/mcL 10/13/2023 18:22 EST Lymph Absolute 1.4 K/mcL 10/13/2023 18:22 EST [place] Absolute 0.4 K/mcL 10/13/2023 18:22 EST Eos Absolute 0.1 K/mcL 10/13/2023 18:22 EST Baso Absolute 0.0 K/mcL 10/13/2023 18:22 EST Sodium Level 127 mmol/L 10/13/2023 18:22 EST Potassium Level 4.2 mmol/L 10/13/2023 18:22 EST Chloride Level 95 mmol/L 10/13/2023 18:22 EST CO2 23 mmol/L 10/13/2023 18:22 EST Alk Phos 146 IntlUnit/L 10/13/2023 18:22 EST AST 50 IntlUnit/L 10/13/2023 18:22 EST ALT 57 IntlUnit/L 10/13/2023 18:22 EST BUN 16 mg/dL 10/13/2023 18:22 EST Glucose Level 736 mg/dL 10/13/2023 18:22 EST Creatinine Level 0.90 mg/dL 10/13/2023 18:22 EST BUN/Creat Ratio 17.8 10/13/2023 18:22 EST eGFR CKD-EPI 73 mL/min/1.73 m2 10/13/2023 18:22 EST Calcium Level 9.1 mg/dL 10/13/2023 18:22 EST Protein Total 6.5 g/dL 10/13/2023 18:22 EST Albumin Level 3.8 g/dL 10/13/2023 18:22 EST Globulin 2.7 g/dL 10/13/2023 18:22 EST A/G Ratio 1.4 g/dL 10/13/2023 18:22 EST Bilirubin Total 0.5 mg/dL 10/13/2023 18:22 EST Anion Gap 9.0 10/13/2023 18:22 EST Osmolality 292 mOsm/kg 10/13/2023 18:22 EST Glucose POC 464 10/13/2023 21:12 EST TSH 1.43 mcIntlUnit/mL 10/13/2023 18:22 EST Acetaminophen Level <10.0 ug/mL 10/13/2023 18:22 EST Salicylate Level <2.5 mg/dL 10/13/2023 18:22 EST Ethanol Level SEE COMMENT 10/13/2023 18:22 EST Instr Ethanol Lvl <10 mg/dL 10/13/2023 18:22 EST U Amph Scrn NEGATIVE 10/13/2023 18:22 EST U Monalisa Scrn NEGATIVE 10/13/2023 18:22 EST U Benzodia Scrn NEGATIVE 10/13/2023 18:22 EST U Buprenorph Scr NEGATIVE 10/13/2023 18:22 EST U Cocaine Scrn NEGATIVE 10/13/2023 18:22 EST U Fentanyl Scr NEGATIVE 10/13/2023 18:22 EST U THC Scr NEGATIVE 10/13/2023 18:22 EST U Methadone Scr NEGATIVE 10/13/2023 18:22 EST U Opiate Scrn NEGATIVE 10/13/2023 18:22 EST U Oxy Scrn NEGATIVE 10/13/2023 18:22 EST U PCP Scrn NEGAITVE 10/13/2023 18:22 EST U PPX Scr NEGATIVE 10/13/2023 18:22 EST Urine Srce Clean Catch 10/13/2023 18:22 EST UA Color YELLOW. 10/13/2023 18:22 EST UA Appear CLEAR. 10/13/2023 18:22 EST UA Glucose >=1000 10/13/2023 18:22 EST UA Bili NEGATIVE 10/13/2023 18:22 EST UA Ketones NEGATIVE 10/13/2023 18:22 EST UA Spec Grav <=1.005 10/13/2023 18:22 EST UA Blood NEGATIVE 10/13/2023 18:22 EST UA pH 7.00 10/13/2023 18:22 EST UA Protein NEGATIVE 10/13/2023 18:22 EST UA Urobilinogen 0.2 10/13/2023 18:22 EST UA Nitrite NEGATIVE 10/13/2023 18:22 EST UA Leuk Est NEGATIVE 10/13/2023 18:22 EST Electronically Signed on 10/14/23 06:31 PM Rashad Burden APRN Discharge summary * Ava Brenner MD: PERFORM Event Display: Discharge Summary Authored Date: [id number] EMMANUEL SALAZAR :1960 Age:62 years Sex:Female Visit Date:10/13/2023 Admission Information 62 year old female with history of depression presenting from PCP's office with concerns for suicidal ideation- had asked for lorazepam to go to sleep. On mental health eval here, she declined any suicidal intent but states she simply has not slept more than 4 hours in months and wants something to help. She has been more depressed over the past 5-6 months and has had 2 deaths in the family. She stopped taking all her medications in April 2023 because of cost and because it was too much trouble. Admission labs were without any significant abnormality other than glycosuria and??very elevated blood sugars in the 700's without acidosis. Hospital Course She was evaluated by [facility] in the ED and again the next day. From a mental health perspective, they felt she was not a safety risk and cleared to discharge home with outpatientfollowup for counseling and medication management. They will coordinate this. ?? She was admitted overnight for blood sugar management. She responded nicely to several IV pushes ofinsulin in the ED, then??received a reduced dose of her glargine insulin and sugars remained in niy274's overnight. ?? We will dispense a month supply of her home medications at the time of discharge as she states she has had trouble affording them. The only changes are the following: ??- restart glipizide 10 mg bid but hold glargine insulin initially and monitor fasting sugars; if running >180, restart glargine 10 units hs; bring glucose log to PCP appointment within 2 weeks to further titrate ??- restart duloxetine at 30 mg dosing initially and titrate back up to 60 if needed ??- restart gabapentin at 300 mg bid and may increase evening dose by 300 mg every 3 days to maximum 900 mg Physical Exam Vitals & Measurements T:??36.4?C ??(Temporal Artery)?? TMIN:??36.3?C ??(Temporal Artery)?? TMAX:??37.8?C ??(Temporal Artery)?? HR:??66??(Peripheral)?? RR:??18?? BP:??136/50?? SpO2:??96%?? HT:??154.94??cm?? WT:??72.57??kg?? BMI:??30.23?? Pain Score:??0?? O2 Therapy:??Room air?? BSA:??1.77?? General: obese, alert, cooperative CV: RRR, no murmur Lungs: CTAB Abdomen: protuberant, soft, nontender / nondistended Ext: no edema or tenderness Social History Alcohol Never Electronic Cigarette/Vaping Electronic Cigarette Use: Never. Tobacco Never tobacco user Tobacco Use:. Lab Results Last 24 Hours?? Chemistry ? Event Name?? Event Result?? Date/Time?? Sodium Level 138 mmol/L 10/14/23 06:30:00 Potassium Level 4.2 mmol/L 10/14/23 06:30:00 Chloride Level 108 mmol/L??High 10/14/23 06:30:00 CO2 25 mmol/L 10/14/23 06:30:00 Alk Phos 109 IntlUnit/L??High 10/14/23 00:40:00 AST 41 IntlUnit/L??High 10/14/23 00:40:00 ALT 47 IntlUnit/L 10/14/23 00:40:00 BUN 9 mg/dL 10/14/23 06:30:00 Glucose Level 249 mg/dL??High 10/14/23 06:30:00 Creatinine Level 0.8 mg/dL 10/14/23 06:30:00 BUN/Creat Ratio 11.3 10/14/23 06:30:00 eGFR CKD-EPI 84 mL/min/1.73 m2 10/14/23 06:30:00 Calcium Level 8.2 mg/dL??Low 10/14/23 06:30:00 Protein Total 5.5 g/dL??Low 10/14/23 00:40:00 Albumin Level 3.3 g/dL??Low 10/14/23 00:40:00 Globulin 2.2 g/dL??Low 10/14/23 00:40:00 A/G Ratio 1.5 g/dL 10/14/23 00:40:00 Bilirubin Total 0.4 mg/dL 10/14/23 00:40:00 Anion Gap 5 10/14/23 06:30:00 Magnesium Level 2 mg/dL 10/14/23 06:30:00 Osmolality 283 mOsm/kg 10/14/23 06:30:00 Glucose POC 301 10/14/23 12:03:00 TSH 1.43 mcIntlUnit/mL 10/13/23 18:22:00 ? Hematology ? Event Name?? Event Result?? Date/Time?? WBC 5 K/mcL 10/14/23 06:30:00 RBC 4.55 Million/mcL 10/14/23 06:30:00 Hgb 14.4 g/dL 10/14/23 06:30:00 Hct 42.3 % 10/14/23 06:30:00 MCV 93 fL 10/14/23 06:30:00 MCH 31.5 pg??High 10/14/23 06:30:00 MCHC 33.9 g/dL 10/14/23 06:30:00 RDW-CV 14.4 % 10/14/23 06:30:00 Platelets 127 K/mcL??Low 10/14/23 06:30:00 MPV 9.3 fL 10/14/23 06:30:00 Neutro Auto 56.2 % 10/14/23 06:30:00 Lymph Auto 34.4 % 10/14/23 06:30:00 [place]umpkin Auto 6.4 % 10/14/23 06:30:00 Eos, Auto 2.2 % 10/14/23 06:30:00 Basophil Auto 0.8 % 10/14/23 06:30:00 Neutro Absolute 2.8 K/mcL 10/14/23 06:30:00 Lymph Absolute 1.7 K/mcL 10/14/23 06:30:00 [place]kin Absolute 0.3 K/mcL 10/14/23 06:30:00 Eos Absolute 0.1 K/mcL 10/14/23 06:30:00 Baso Absolute 0 K/mcL 10/14/23 06:30:00 ? Urinalysis ? Event Name?? Event Result?? Date/Time?? Urine Srce Clean Catch 10/13/23 18:22:00 UA Color YELLOW. 10/13/23 18:22:00 UA Appear CLEAR. 10/13/23 18:22:00 UA Glucose >=1000 Abnormal 10/13/23 18:22:00 UA Bili NEGATIVE 10/13/23 18:22:00 UA Ketones NEGATIVE 10/13/23 18:22:00 UA Spec Grav <=1.005 10/13/23 18:22:00 UA Blood NEGATIVE 10/13/23 18:22:00 UA pH 7 10/13/23 18:22:00 UA Protein NEGATIVE 10/13/23 18:22:00 UA Urobilinogen 0.2 10/13/23 18:22:00 UA Nitrite NEGATIVE 10/13/23 18:22:00 UA Leuk Est NEGATIVE 10/13/23 18:22:00 ? All Other Results ? Event Name?? Event Result?? Date/Time?? Acetaminophen Level <10.0 10/13/23 18:22:00 Salicylate Level <2.5 10/13/23 18:22:00 Ethanol Level SEE COMMENT 10/13/23 18:22:00 Instr Ethanol Lvl <10 10/13/23 18:22:00 U Amph Scrn NEGATIVE 10/13/23 18:22:00 U Monalisa Scrn NEGATIVE 10/13/23 18:22:00 U Benzodia Scrn NEGATIVE 10/13/23 18:22:00 U Buprenorph Scr NEGATIVE 10/13/23 18:22:00 U Cocaine Scrn NEGATIVE 10/13/23 18:22:00 U Fentanyl Scr NEGATIVE 10/13/23 18:22:00 U THC Scr NEGATIVE 10/13/23 18:22:00 U Methadone Scr NEGATIVE 10/13/23 18:22:00 U Opiate Scrn NEGATIVE 10/13/23 18:22:00 U Oxy Scrn NEGATIVE 10/13/23 18:22:00 U PCP Scrn NEGAITVE 10/13/23 18:22:00 U PPX Scr NEGATIVE 10/13/23 18:22:00 ? All Diagnoses This Visit Depression Uncontrolled type 2 diabetes mellitus with hyperglycemia Patient Discharge Condition Good Discharge Disposition Home Patient Education Diabetes Mellitus and Nutrition, Adult Hyperglycemia, [id number] Follow Up With When Contact Information Follow up with primary care provider Within 1 week Additional Instructions: Follow up at [facility] on October 24 at 1pm. Follow up with specialist Within 1 month Additional Instructions: counselor SHIRLEY or as recommended by [facility] Medication Reconciliation Changed DULoxetine (DULoxetine 40 mg oral delayed release capsule)1 Capsules Oral (given by mouth) every day. do not crush or chew. Refills: 0. ?? gabapentin (gabapentin 300 mg oral capsule)1 Capsules Oral (given by mouth) 2 times a day. Refills:0. ?? insulin glargine (insulin glargine 100 units/mL subcutaneous solution)25 Units Subcutaneous (under the skin) every night at bedtime. Refills: 0. ?? Unchanged acetaminophen (acetaminophen 500 mg oral tablet)1 tab Oral (given by mouth) every 4 hours as neededas needed for pain. ?? alendronate (alendronate 70 mg oral tablet)1 tab Oral (given by mouth) every week. mondays. Refills: 0. ?? aspirin (aspirin 81 mg oral delayed release tablet)1 tab Oral (given by mouth) every day. Refills: 0. ?? calcium-vitamin D (calcium (as carbonate)-vitamin D 600 mg-400 intl units oral tablet)1 tab Oral (given by mouth) 2 times a day. ?? cyclobenzaprine (cyclobenzaprine 5 mg oral tablet)1 tab Oral (given by mouth) 3 times a day as needed as needed for muscle spasm. Refills: 0. ?? glipiZIDE (glipiZIDE 10 mg oral tablet, extended release)1 tab Oral (given by mouth) 2 times a day.Refills: 0. ?? hydrOXYzine (hydrOXYzine pamoate 50 mg oral capsule)1 Capsules Oral (given by mouth) 2 times a day.Refills: 0. ?? ibuprofen (ibuprofen 400 mg oral tablet)1 tab Oral (given by mouth) every 4 hours as needed as needed for pain. ?? losartan (losartan 25 mg oral tablet)1 tab Oral (given by mouth) every day. Refills: 0. ?? multivitamin with minerals (Thera-Joanne M oral tablet)1 tab Oral (given by mouth) every day. ?? omeprazole (omeprazole 40 mg oral delayed release capsule)1 Capsules Oral (given by mouth) every day. Refills: 0. ?? topiramate (topiramate 100 mg oral tablet)1 tab Oral (given by mouth) 2 times a day. Refills: 0. ?? Discontinued levothyroxine (levothyroxine 50 mcg (0.05 mg) oral tablet)1 tab Oral (given by mouth) every day. Electronically Signed on 10/14/23 01:06 PM Ava Brenner MD
--- OUTSIDE RECORDS SUMMARY | 2024-05-31 17:50 | XMS_ITS | Encounter Summary ---
Author Organization [facility] Address [address] [place] [address] Care Team Providers Care Relief Captain Name Role Phone Maryuri Evans MD Primary Care Provider [phone] Encounter Details Date Type Department Care Team (Late st Contact Info) Description 11/05/[address] [facility] Pathology & Laboratory Medicine - [address] [id number] Outr Resulting Lab, Provider Social History Tobacco [...] Procedure Name Priority Date/Time Associated Diagnosis Comments RHEUMATOID FACTOR Routine 11/04/2021 11: 00 EDT ANTI NUCLEAR AB (PRISCILLA), IFA Routine 11/04/2021 11:00 EDT documented in this encounter Results * RHEUMATOID FACTOR (11/04/2021 11:00 EDT) Rheumatoid Factor <8.6 <12.0 IU/mL 11/05/2021 17:40 EDT [facility] Blood VENOUS BLOOD / Unknown 11/04/2021 11:00 EDT 11/05/2021 17:17 EDT Provider Outr Resulting Lab CHEMISTRY & BLOOD GAS ORDERABLES Performing Organization Address [facility] Co de Phone Number [facility] [address] [place] [address] * (ABNORMAL) ANTI NUCLEAR AB (PRISCILLA), IFA (11/04/2021 11:00 EDT) PRISCILLA Interpretation Positive(A) Negative 11/06/2021 13:36 EDT [facility] Comment: For titers greater than or equal to 1:160 (except the centromere and nucleolar patterns) it is recommended that specific follow-up autoantibody testing ??(such as for dsDNA and Extractable Nuclear Antigens) be performed on all diffuse and/or speckled patterns NOTE: For add-on testing dsDNA is stable for 7 days refrigerated while Extractable Nuclear Antigens are only stable for 48 hours refrigerated. PRISCILLA Titer and Pattern 1 1:160 Nucleolar 11/06/2021 13:36 EDT [facility] Blood VENOUS BLOOD / Unknown 11/04/2021 11:00 EDT 11/05/2021 17:17 EDT Narrative [facility] - 11/06/2021 13:36 EDT Results were obtained with the INOVA NOVA Lite HEp-2 PRISCILLA Kit by indirect immunofluorescence. Provider Outr Resulting Lab IMMUNOLOGY A ND SEROLOGY ORDERABLES Performing Organization Address City/[facility]/ZIP Co de Phone Number [facility] [address] [place] [address] documented in this encounter Visit Diagnoses Not on filedocumented in this encounter Care Teams Relief Captain Relationship Specialty Start Date End Date Maryuri Evans MD [address] [place] [id number] PCP - General 01/11/21 documented as of this encounter
--- OUTSIDE RECORDS SUMMARY | 2024-05-31 17:50 | XMS_ITS | Encounter Summary ---
Author Organization [facility] Address [facility] [place] [address] Care Team Providers Care Welfare Service Aide Name Role Phone Maryuri Evans MD Primary Care Provider [phone] Encounter Details Date Type Department Care Team (Latest Contact Info) Description 02/14/2017 - 02/14/2017 11:59 PM EDT Hospital Encounter Radiology Library at [facility] [place] [address] Christopher Correa MD [facility] [place] [address] Discharge Disposition: Home Social History Tobacco Use [...] FILM LIBRARY STORAGE ONLY DX ELBOW Routine 02/14/2017 12:00 AM EDT documented in this encounter Results * Film Library- Storage Only DX Elbow (02/14/2017 12:00 AM EDT) Narrative FREDA - 09/23/2017 1:52 PM EST This exam is for storage only and is auto-finalizing. Christopher Correa MD IM FILM LIBRARY ORD ERABLES Performing Organization Address City/State/[facility] Co de Phone Number [place], [place] documented in this encounter Visit Diagnoses Not on filedocumented in this encounter Care Teams Welfare Service Aide Relationship Specialty Start Date End Date Maryuri Evans MD [address] [place] [address] PCP - General 09/23/14 documented as of this encounter
--- OUTSIDE RECORDS SUMMARY | 2024-05-31 17:50 | XMS_ITS | Encounter Summary ---
Author Organization [facility] Address [facility] [place] [address] Care Team Providers Care Rehab Aid Name Role Phone Maryuri Evans MD Primary Care Provider [phone] Encounter Details Date Type Department Care Team (Latest Contact Info) Description 10/27/2015 12:05 AM EST - 10/27/2015 11:59 PM EST Hospital Encounter Radiology Library at [facility] [place] [address] Christopher Correa MD [facility] [place] [address] Discharge Disposition: Home Social History Tobacco Use Types Packs/Day Years Used Date Smoking Tobacco: Never Sex and Gender Information Value Date Recorded Sex Assigned at Not on file Gender Identity Not on file Sexual Orientation Not on file documented as of this encounter Medications at Time of Discharge Medication Sig Dispensed Refills Start Date End Date aspirin EC 81 mg Tablet, Delayed Release [...] Diagnosis Comments FILM LIBRARY STORAGE ONLY DX UPPER EXTREMITY Routine 10/27/2015 12:05 AM EST documented in this encounter Results * Film Library- Storage Only DX Upper Extremity (10/27/2015 12:05 AM EST) Narrative BRADLY BARBA - 09/23/2017 2:42 PM EST This exam is for storage only and is auto-finalizing. Christopher Correa MD IMG FILM LIBRARY ORD ERABLES [place], [place] documented in this encounter Visit Diagnoses Not on filedocumented in this encounter Care Teams Rehab Aid Relationship Specialty Start Date End Date Maryuri Evans MD [address] [place] [address] PCP - General 09/23/14 documented as of this encounter
--- OUTSIDE RECORDS SUMMARY | 2024-05-31 17:50 | XMS_ITS | Encounter Summary ---
Author Organization [facility] Address [facility] [place] [address] Care Team Providers Care Universal Worker Assisted Living Name Role Phone Maryuri Evans MD Primary Care Provider [phone] Encounter Details Date Type Department Care Team (Latest Contact Info) Description 10/27/2015 - 10/27/2015 12:04 AM EST Hospital Encounter Radiology Library at [facility] [place] [address] Christopher Correa MD [facility] [place] [address] Discharge Disposition: Home Social History Tobacco Use [...] Associated Diagnosis Comments FILM LIBRARY STORAGE ONLY CT UPPER EXTREMITY Routine 10/27/2015 12:00 AM EST documented in this encounter Results * Film Library- Storage Only CT Upper Extremity (10/27/2015 12:00 AM EST) Narrative BRADLY BARBA - 09/23/2017 2:12 PM EST This exam is for storage only and is auto-finalizing. Christopher Correa MD IMG FILM LIBRARY ORD ERABLES [place], [place] documented in this encounter Visit Diagnoses Not on filedocumented in this encounter Care Teams Universal Worker Assisted Living Relationship Specialty Start Date End Date Maryuri Evans MD [address] [place] [address] PCP - General 09/23/14 documented as of this encounter
--- OUTSIDE RECORDS SUMMARY | 2024-05-31 17:50 | XMS_ITS | Encounter Summary ---
Author Organization [facility] Address [facility] [place] [address] Care Team Providers Care Telephone Plant Power Operator Name Role Phone Maryuri Evans MD Primary Care Provider [phone] Encounter Details Date Type Department Care Team (Latest Contact Info) Description 04/14/2017 - 04/14/2017 11:59 PM EDT Hospital Encounter Radiology Library at [facility] [place] [address] Christopher Correa MD [facility] [place] [address] Discharge Disposition: Home Social History Tobacco Use [...] FILM LIBRARY STORAGE ONLY DX ELBOW Routine 04/14/2017 12:00 AM EDT documented in this encounter Results * Film Library- Storage Only DX Elbow (04/14/2017 12:00 AM EDT) Narrative FREDA - 09/23/2017 1:56 PM EST This exam is for storage only and is auto-finalizing. Christopher Correa MD IM FILM LIBRARY ORD ERABLES Performing Organization Address City/State/[facility] Co de Phone Number [place], [place] documented in this encounter Visit Diagnoses Not on filedocumented in this encounter Care Teams Telephone Plant Power Operator Relationship Specialty Start Date End Date Maryuri Evans MD [address] [place] [address] PCP - General 09/23/14 documented as of this encounter
--- OUTSIDE RECORDS SUMMARY | 2024-05-31 17:50 | XMS_ITS | Encounter Summary ---
[place] [address] Care Team Providers Care Antique Dealer Name Role Phone Maryuri Evans MD Primary Care Provider [phone] Encounter Details Date Type Department Care Team (Late st Contact Info) Description 11/08/2017 Orders [place] [id number] Liss Porter RN Osteoarthritis, unspecified osteoarthritis type, unspecified site Social History Tobacco Use Types Packs/Day Years [...] as of this encounter Visit Diagnoses Diagnosis Osteoarthritis, unspecified osteoarthritis type, unspecified site documented in this encounter Care Teams Antique Dealer Relationship Specialty Start Date End Date Maryuri Evasn MD [address] [place] [address] PCP - General 09/23/14 documented as of this encounter
--- OUTSIDE RECORDS SUMMARY | 2024-05-31 17:50 | XMS_ITS | Encounter Summary ---
Author Organization [facility] Address [facility] [place] [address] Care Team Providers Care Sock Knitting Machine Operator Name Role Phone Maryuri Evans MD Primary Care Provider [phone] Encounter Details Date Type Department Care Team (Latest Contact Info) Description 12/04/2015 - 12/04/2015 11:59 PM EDT Hospital Encounter Radiology Library at [facility] [place] [address] Christopher Correa MD [facility] [place] [address] Discharge Disposition: Home Social History Tobacco Use [...] FILM LIBRARY STORAGE ONLY DX ELBOW Routine 12/04/2015 12:00 AM EDT documented in this encounter Results * Film Library- Storage Only DX Elbow (12/04/2015 12:00 AM EDT) Narrative RAD - 09/23/2017 2:07 PM EST This exam is for storage only and is auto-finalizing. Christopher Correa MD IM FILM LIBRARY ORD ERABLES Performing Organization Address City/State/[facility] Co de Phone Number [place], [place] documented in this encounter Visit Diagnoses Not on filedocumented in this encounter Care Teams Sock Knitting Machine Operator Relationship Specialty Start Date End Date Maryuri Evans MD [address] [place] [address] PCP - General 09/23/14 documented as of this encounter
--- OUTSIDE RECORDS SUMMARY | 2024-05-31 17:50 | XMS_ITS | Encounter Summary ---
Author Organization [facility] Address [facility] [place] [address] Care Team Providers Care Enterprise Sales Person Name Role Phone Maryuri Evans MD Primary Care Provider [phone] Reason for Visit * Reason Onset Date Comments Pre Procedure Call 11/09/2017 Encounter Details Date Type Department Care Team (Late st Contact Info) Description 11/09/2017 Telephone [place] [id number] Christopher Correa MD [facility] [address] [place] [address] Pre Procedure Call Social History Tobacco Use Types Packs/Day Years [...] encounter Miscellaneous Notes * Telephone Encounter - Anita Arnold - 11/09/2017 8:58 AM EDT I called and left a message for patient to call [phone] directly and schedule surgery with Dr. CORREA. documented in this encounter Plan of Treatment Not on file documented as of this encounter Visit Diagnoses Not on filedocumented in this encounter Care Teams Enterprise Sales Person Relationship Specialty Start Date End Date Maryuri Evans MD [address] [place] [address] PCP - General 09/23/14 documented as of this encounter
--- OUTSIDE RECORDS SUMMARY | 2024-05-31 17:50 | XMS_ITS | Encounter Summary ---
Author Organization [facility] Address [address] [place] [address] Care Team Providers Care Piano Refinisher Name Role Phone Maryuri Evans MD Primary Care Provider [phone] Encounter Details Date Type Department Care Team (Late st Contact Info) Description 02/09/2021 Orders Only [facility] Orthopedic Trauma - [address] [address] William Donald MD [address] [place] [phone] Closed fracture of left ankle with routine healing (Primary Dx) Social History Tobacco Use Types [...] Closed fracture of left ankle with routine healing- Primary documented in this encounter Care Teams Piano Refinisher Relationship Specialty Start Date End Date Maryuri Evans MD [address] [place] [address] PCP - General 01/11/21 documented as of this encounter
--- OUTSIDE RECORDS SUMMARY | 2024-05-31 17:50 | XMS_ITS | Encounter Summary ---
Author Organization [facility] Address [facility] [place] [address] Care Team Providers Care Blow Molding Machine Operator Name Role Phone Maryuri Evans MD Primary Care Provider [phone] Encounter Details Date Type Department Care Team (Latest Contact Info) Description 05/31/2017 - 05/31/2017 11:59 PM EDT Hospital Encounter Radiology Library at [facility] [place] [address] Christopher Correa MD [facility] [place] [address] Discharge Disposition: Home Social History Tobacco Use [...] Release (E.C.) Take by mouth. 02/05/2013 02/18/2021 cyclobenzaprine (FLEXERIL) 5 mg Tablet TAKE ONE TABLET BY MOUTH EVERY 4 HOURS 3 05/18/2017 02/18/2021 LANTUS SOLOSTAR U-100 INSULIN pen Inject 25 Units subcutaneously nightly. 3 05/14/2017 02/19/20 levothyroxine (SYNTHROID) 100 mcg Tablet Take 100 [...] FILM LIBRARY STORAGE ONLY DX ELBOW Routine 05/31/2017 12:00 AM EDT documented in this encounter Results * Film Library- Storage Only DX Elbow (05/31/2017 12:00 AM EDT) Narrative FREDA - 09/23/2017 1:58 PM EST This exam is for storage only and is auto-finalizing. Christopher Correa MD IMG FILM LIBRARY ORD ERABLES [place], [place] documented in this encounter Visit Diagnoses Not on filedocumented in this encounter Care Teams Blow Molding Machine Operator Relationship Specialty Start Date End Date Maryuri Evans MD [address] [place] [address] PCP - General 09/23/14 documented as of this encounter
--- OUTSIDE RECORDS SUMMARY | 2024-05-31 17:50 | XMS_ITS | Encounter Summary ---
Author Organization [facility] Address [facility] [address] Care Team Providers Care Account Supervisor Name Role Phone Maryuri Evans MD Primary Care Provider [phone] Encounter Details Date Type Department Care Team (Latest Contact Info) Description 12/17/2015 - 12/17/2015 11:59 PM EDT Hospital Encounter Radiology Library at [facility] [place] [address] Christopher Correa MD [facility] [place] [address] Discharge Disposition: Home Social History Tobacco Use [...] FILM LIBRARY STORAGE ONLY DX ELBOW Routine 12/17/2015 12:00 AM EDT documented in this encounter Results * Film Library- Storage Only DX Elbow (12/17/2015 12:00 AM EDT) Narrative FREDA - 09/23/2017 2:09 PM EST This exam is for storage only and is auto-finalizing. Christopher Correa MD IM FILM LIBRARY ORD ERABLES Performing Organization Address City/State/[facility] Co de Phone Number [place], [place] documented in this encounter Visit Diagnoses Not on filedocumented in this encounter Care Teams Account Supervisor Relationship Specialty Start Date End Date Maryuri Evans MD [address] [place] [address] PCP - General 09/23/14 documented as of this encounter
--- OUTSIDE RECORDS SUMMARY | 2024-05-31 17:50 | XMS_ITS | Encounter Summary ---
Author Organization [facility] Address [facility] [place] [address] Care Team Providers Care Inventory Analyst Name Role Phone Maryuri Evans MD Primary Care Provider [phone] Encounter Details Date Type Department Care Team (Latest Contact Info) Description 04/22/2016 - 04/22/2016 11:59 PM EDT Hospital Encounter Radiology Library at [facility] [place] [address] Christopher Correa MD [facility] [place] [address] Discharge Disposition: Home Social History Tobacco Use [...] FILM LIBRARY STORAGE ONLY DX ELBOW Routine 04/22/2016 12:00 AM EDT documented in this encounter Results * Film Library- Storage Only DX Elbow (04/22/2016 12:00 AM EDT) Narrative FREDA - 09/23/2017 1:45 PM EST This exam is for storage only and is auto-finalizing. Christopher Correa MD IM FILM LIBRARY ORD ERABLES Performing Organization Address City/State/[facility] Co de Phone Number [place], [place] documented in this encounter Visit Diagnoses Not on filedocumented in this encounter Care Teams Inventory Analyst Relationship Specialty Start Date End Date Maryuri Evans MD [address] [place] [address] PCP - General 09/23/14 documented as of this encounter
--- OUTSIDE RECORDS SUMMARY | 2024-05-31 17:50 | XMS_ITS | Encounter Summary ---
Author Organization [facility] Address [facility] [place] [address] Care Team Providers Care Package Handler Name Role Phone Maryuri Evans MD Primary Care Provider [phone] Encounter Details Date Type Department Care Team (Latest Contact Info) Description 05/03/2017 - 05/03/2017 11:59 PM EDT Hospital Encounter Radiology Library at [facility] [place] [address] Christopher Correa MD [facility] [place] [address] Discharge Disposition: Home Social History Tobacco Use [...] FILM LIBRARY STORAGE ONLY DX ELBOW Routine 05/03/2017 12:00 AM EDT documented in this encounter Results * Film Library- Storage Only DX Elbow (05/03/2017 12:00 AM EDT) Narrative FREDA - 09/23/2017 1:57 PM EST This exam is for storage only and is auto-finalizing. Christopher Correa MD IM FILM LIBRARY ORD ERABLES Performing Organization Address City/State/[facility] Co de Phone Number [place], [place] documented in this encounter Visit Diagnoses Not on filedocumented in this encounter Care Teams Package Handler Relationship Specialty Start Date End Date Maryuri Evans MD [address] [place] [address] PCP - General 09/23/14 documented as of this encounter
--- OUTSIDE RECORDS SUMMARY | 2024-05-31 17:50 | XMS_ITS | Encounter Summary ---
Author Organization [facility] [place] [address] Care Team Providers Care Middle [employer] Art Teacher Name Role Phone Maryuri Evans MD Primary Care Provider [phone] Reason for Visit * Reason Comments Follow-up Encounter Details Date Type Department Care Team (Late st Contact Info) Description 10/21/2014 10:45 AM EST Office Visit Dermatology at [address] [place] [id number] Daryl Mariscal MD [address] [facility] [place] [address] Psoriasis Discharge Disposition: Home Social History Tobacco Use Types Packs/Day Years Used Date Smoking Tobacco: Never Sex and Gender Information Value Date Recorded Sex Assigned at Not on file Gender Identity Not on file Sexual Orientation Not on file documented as of this encounter Patient Instructions * Patient Instructions* Elizabeth Meade LPN - 10/21/2014 10:43 AM EST Images from the original note were not included. [facility] Psoriasis: After Your Visit Your Care Instructions Psoriasis (say lpo-XM-ie-sunny) is a long-term skin problem that causes thick, white, silvery, or red patches on the skin. The patches may be small or large, and they occur most often on the knees, elbows, scalp, hands, feet, or lower back. The skin may be scaly. If the condition is severe, your skin can become itchy and tender. Psoriasisalso can be embarrassing if the patches are on visible areas. You can treat psoriasis with good care at home and with medicine from your doctor. You may put medicine on your skin and take pills or have shots to stop the redness and swelling. Your doctor also may suggest ultraviolet light treatments. Follow-up care is a dupont part of your treatment and safety. Be sure to make and go to all appointments, and call your doctor if you are having problems. It???s also a good idea to know your test results and keep a list of the medicines you take. How can you care for yourself at home? ?? If your doctor prescribes medicine, use it exactly as prescribed. Call your doctor if you think you are having a problem with your medicine. ?? Keep your skin moist. After bathing, put an ointment, cream, or lotion on your skin while it is still damp. This seals in moisture. Use ugkx-hyg-hgpedci products that your doctor suggests. These may include Cetaphil, Lubriderm, or Eucerin. Petroleum jelly (such as Vaseline) and vegetable shortening (such as Crisco) also work. ?? If you have psoriasis on your scalp, use a mild tar shampoo, such as Neutrogena T/Gel, Polytar, or Zetar. Other scalp lotions, such as Dritho-Scalp, can be applied for several hours and then washed out. Shampoos that contain zinc pyrithione (such as Danex or Head & Shoulders), or selenium sulfide (such as Exsel or Selsun) may also help. ?? Gently soften and remove skin crusts. Put cream on the crusts and then peel off loose crusts. Removing crusts may help creams and lotions get into the skin. However, peel off crusts carefully so that you do not irritate your skin. ?? Follow your doctor's advice for sunlight or ultraviolet light treatment. ?? Avoid harsh skin products, such as those that contain alcohol. ?? Cover your skin in cold weather. ?? Try to prevent sunburn. Although short periods of sun exposure reduce psoriasis in most people, too much sun can damage the skin and cause skin cancer. In addition, sunburns can trigger psoriasis.Use sunscreen on areas of your skin that do not have psoriasis. Make sure the sunscreen blocks ultraviolet rays (both UVA and UVB) and has a sun protection factor (SPF) of at least 15. Use it every day, even when it is cloudy. Some doctors may recommend a higher SPF, such as 30. ?? Take care to avoid accidents such as cutting or scraping your skin. An injury to the skin can cause psoriasis patches to form anywhere on the body, including the area of the injury. ?? Avoid tight shoes, clothing, watchbands, and hats. These may irritate your skin. ?? Try to control stress and anxiety. They may cause psoriasis to appear suddenly or can make symptoms worse. ?? Use a vaporizer or humidifier to add moisture to your bedroom. Follow the directions for cleaning the machine. ?? Seek support from family and friends. Talk to a counselor or other professional if you feel sad about your condition and need more help. When should you call for help? Call your doctor now or seek immediate medical care if: ?? You have signs of infection, such as: ?? Increased pain, swelling, warmth, or redness. ?? Red streaks leading from the area. ?? Pus draining from the area. ?? A fever. Watch closely for changes in your health, and be sure to contact your doctor if: ?? Your skin is more red and irritated than usual, especially if you also have another illness. ?? You need to talk to someone about how you are coping with the illness. Where can you learn more? Visit our health information library at [email or web address] You can also view health information on [employer], your personal patient account. Log in or sign up today. Enter U759 in the search box to learn more about Psoriasis: After Your Visit. ?? [id number] [employer]. Care instructions adapted under license by [facility]. This care instruction is for use with your licensed healthcare professional. If you have questions about a medical condition or this instruction, always ask your healthcare professional. [employer] disclaims any warranty or liability for your use of this information. Content Version: 10.3.648182; Current as of: October 31, 2013 documented in this encounter Progress Notes * Daryl Mariscal MD - 10/21/2014 10:59 AM EST Problem: 1. Followup psoriasis. 2. Followup granuloma annulare. Jesenia follows up and is doing beautifully. The occipital scalp 7 x 3 cm plaque has entirely resolved. It has been about a month since I saw her last, and she states that within a week of the interlesional Kenalog injection it has improved and healed. She continues to have GA on the right dorsal hand, annular rings, two rings, and a cluster of several papules of GA on the right antecubital fossa. Physical examination confirms clearance of the psoriasis entirely in the lower occipital scalp. There is no remaining erythema nor scaling. She continues to have the GA as aforementioned on the right dorsal hand. Assessment and Plan: 1. GA. a. Today site was injected with Kenalog on the right dorsal hand, 5 mg/mL Kenalog was utilized and a total of 0.3 mL injected. b. Patient already tried topical clobetasol cream without benefit, and she tried it for three months she states. c. If interlesional Kenalog injection is not fruitful, would just recommend watchful waiting, as I think in time it will run its course and resolve. Discussed the increased incidence of this in diabetes. 2. Psoriasis, occipital scalp. a. Resolved with Kenalog injection. b. No further treatment necessary. c. I am hopeful that she will have at least a six-month period of remission from this. Return to clinic now p.r.n. for new lesions/concerns. COPY: Maryuri Eavns M.D. documented in this encounter Plan of Treatment Not on file documented as of this encounter Visit Diagnoses Diagnosis Psoriasis Other psoriasis documented in this encounter Care Teams [employer] Art Teacher Relationship Specialty Start Date End Date Maryuri Evans MD [address] [place] [address] PCP - General 09/23/14 documented as of this encounter
--- OUTSIDE RECORDS SUMMARY | 2024-05-31 17:50 | XMS_ITS | Encounter Summary ---
Author Organization [facility] Address [address] [place] [address] Care Team Providers Care Dry End Operator Name Role Phone Maryuri Evans MD Primary Care Provider [phone] Encounter Details Date Type Department Care Team (Late st Contact Info) Description 09/11/2021 Lab Requisition [facility] Pathology & Laboratory Medicine - [address] [id number] Outr Resulting Lab, Provider Social History Tobacco [...] Procedure Name Priority Date/Time Associated Diagnosis Comments ZZCOVID-19 TEST [facility] PCR Today 09/10/2021 13:10 EST COVID-19 TESTING Routine 09/10/2021 13:1 0 EST documented in this encounter Results * COVID-19 TEST [facility] PCR (09/10/2021 13:10 EST) Swab 09/10/2021 13:1 0 EST 09/11/2021 17:35 EST Provider Outr Resulting Lab MICROBIOLOGY - GENERAL ORDERABLES Performing Organization Address [facility] Co de Phone Number [facility] [address] [place] [address] * COVID-19 TESTING (09/10/2021 13:10 EST) COVID-19 rt-PCR Result Negative Negative 09/12/2021 13:[address] [facility] Comment: This test has not been FDA cleared or approved. This test has been authorized by FDA under an EUA for use by authorized laboratories. This test has been authorized only for detection of nucleic acid from 2019-nCoV, not for any other viruses or pathogens. This test is only authorized for the duration of the declaration that circumstances exist justifying the authorization of emergency use of in vitro diagnostic tests for detection and/or diagnosis of 2019-nCoV under section 564(b)(1) of Act, 21 U.S.C ?? 360bbb-3(b) (1), unless the authorization is terminated or revoked sooner. Negative results do not preclude 2019-nCoV infection and should not be used as the sole basis for treatment or other patient management decisions. Negative results must be combined with clinical observations, patient history, and epidemiological information. Testing was performed using the efrem SARS-CoV-2 assay ([employer] on the Efrem 6800 System Performing Lab Efrem 6800 [facility] 09/12/2021 13:[address] [facility] Swab 09/10/2021 13:1 0 EST 09/11/2021 17:35 EST Provider Outr Resulting Lab MICROBIOLOGY - GENERAL ORDERABLES Performing Organization Address [facility]/ZIP Co de Phone Number [facility] [address] [place] [address] documented in this encounter Visit Diagnoses Not on filedocumented in this encounter Care Teams Dry End Operator Relationship Specialty Start Date End Date Maryuri Evans MD [address] [place] [address] PCP - General 01/11/21 documented as of this encounter
--- OUTSIDE RECORDS SUMMARY | 2024-05-31 17:50 | XMS_ITS | Encounter Summary ---
Author Organization Health system Address [address] [place] [address] Care Team Providers Care Group Leader Wafer Polishing Name Role Phone Maryuri Evans MD Primary Care Provider [phone] Reason for Referral * PT/OT/ST (Routine) - New Request Specialty Diagnoses / Procedures Referred By Keith yung Referred To Contact Rehab Therapies Diagnoses Closed fracture of left ankle with routine healing William Donald MD [address] [place] [phone] [facility] Rehab Therapy [address] [place] [id number] Referral ID Status Reason Start Date Expiration Date Visits Requested Visits Authorized [id number] New Request Specialty Services Required 02/03/2021 1 1 Question Answer Reason for Request: Left ankle fx Comments Physical Therapy: HOME PROGRAM (Ankle and Foot) Egg shell weight bearing (Minimal partial weight bearing, ie 0-2pounds with foot flat). Gentle range of motion exercises for ankle and subtalar joints as tolerated, including both active and gentle active assisted motion. Avoid equinus by encouraging patient to reach full active dorsiflexion (as well as full active plantarflexion, inversion, and eversion). Calf pumps. Gentle/Light Theraband strengthening/resistance exercises with calf/Achilles stretching. Wear boot during day and ankle stabilizer at night. Elevate leg frequently to minimize swelling. Shower only until wounds completely healed (scar only, with no scabs or open areas). * Radiology Services (Routine/Next Available) - Closed Specialty Diagnoses / Procedures Referred By Keith yung Referred To Contact Diagnoses Closed fracture of left ankle with routine healing Procedures XR ANKLE LEFT 3 OR MORE VIEWS William Donald MD [address] [place] [phone] Referral ID Status Reason Start Date Expiration Date Visits Re quested Visits Authorized [id number] Closed 02/03/2021 1 1 Reason for Visit * Reason Comments Post-OP Follow Up Lt ankle Fx DOI 5.23 DOS 6.2 * Consult (3 - 10 Business Days) - Order Cancelled Specialty Diagnoses / Procedures Referred By Keith yung Referred To Contact Orthopedic Surgery Diagnoses Closed fracture dislocation of left ankle, initial encounter Curtis Yo MD [address] [place] [address], [facility] [address] [place] [address] [facility] Ortho Trauma [address] [place] [id number] Referral ID Status Reason Start Date Expiration Date Visits Requested Visits Authorized [id number] Order Cancelled Specialty Services Required 01/12/2021 1 1 Encounter Details Date Type Department Care Team (Late st Contact Info) Description 02/03/2021 14:00 EDT Post-op Visit [facility] [place] [address] William Donald MD [address] [place] [phone] Closed fracture of left ankle with [...] No 01/13/2021 documented as of this encounter Progress Notes * William Donald MD - 02/03/2021 1400 EDT Jesenia Méndez returns she is status post left ankle ORIF on January 21 which was 13 days ago her injury was January 11. She is a diabetic. She came in today overall she has been doing okay but she acknowledges 7-9 out of 10 on the top of her foot a prod-zxr-xzgnpyp type pain. Noted on the bottom of her splint that the splint was heavily worn with basically filthy bottom of the splint indicating that she has had the leg down. I explained to her that with the surgery and with her diabetes and that with putting the leg down she likely generated more swelling than we would like I cautioned her that is adiabetic that she can end up with a horrible wound problem or loss of reduction of her fracture if she has her foot down and her significant other did acknowledge that she has been walking with the leg on the ground. I explained to her that I had understand that she wants to mobilize but that my observation here is that she is placing herself at very severe risk and that she cannot do this she voiced understanding. She will go into a walking boot today I did obtain new x-rays which show no perfect alignment of the fracture at this point she will be given some exercises range of motion exercises she can get the foot out of the boot a few times a day for exercises but cannot put any weight down until I see her again in approximately 3 weeks she is to return for new x-rays and evaluation at that point. This note was dictated using [employer] - please excuse any misspellings, grammatical issues, or other errors related to voice recognition. These notes are not always reviewed. documented in this encounter Plan of Treatment Scheduled Referrals Name Type Priority Associated Diagnoses Orde r Schedule AMB CONS/FOLLOW UP PHYSICAL THERAPY Outpatient Referral Routine Closed fracture of left ankle with routine healing Ordered: 02/03/2021 documented as of this encounter Results * XR ANKLE LEFT [...] of left ankle with routine healing- Primary Closed fracture of left ankle with routine healing documented in this encounter Orders Equipment Count Last Ordered Date First Orde red Date PNEUMATIC WALKING BOOT - TALL ([id number]) 1 documented in this encounter Care Teams Group Leader Wafer Polishing Relationship Specialty Start Date End Date Maryuri Evans MD [address] [place] [address] PCP - General 01/11/21 documented as of this encounter
--- OUTSIDE RECORDS SUMMARY | 2024-05-31 17:50 | XMS_ITS | Encounter Summary ---
Author Organization [facility] Address [facility] [place] [address] Care Team Providers Care Teacher Assistant Name Role Phone Maryuri Evans MD Primary Care Provider [phone] Encounter Details Date Type Department Care Team (Latest Contact Info) Description 01/21/2016 - 01/21/2016 11:59 PM EDT Hospital Encounter Radiology Library at [facility] [place] [address] Christopher Correa MD [facility] [address] Discharge Disposition: Home Social History Tobacco Use [...] FILM LIBRARY STORAGE ONLY DX ELBOW Routine 01/21/2016 12:00 AM EDT documented in this encounter Results * Film Library- Storage Only DX Elbow (01/21/2016 12:00 AM EDT) Narrative FREDA - 09/23/2017 1:36 PM EST This exam is for storage only and is auto-finalizing. Christopher Correa MD IM FILM LIBRARY ORD ERABLES Performing Organization Address City/State/[facility] Co de Phone Number [place], [place] documented in this encounter Visit Diagnoses Not on filedocumented in this encounter Care Teams Teacher Assistant Relationship Specialty Start Date End Date Maryuri Evans MD [address] [place] [address] PCP - General 09/23/14 documented as of this encounter
--- OUTSIDE RECORDS SUMMARY | 2024-05-31 17:50 | XMS_ITS | Encounter Summary ---
Author Organization [facility] Address [facility] [place] [address] Care Team Providers Care Retail Stock Clerk Name Role Phone Maryuri Evans MD Primary Care Provider [phone] Encounter Details Date Type Department Care Team (Latest Contact Info) Description 11/22/2017 2:55 PM EDT - 11/22/2017 11:59 PM EDT Hospital Encounter XRay at [address] [place] [address] Christopher Correa MD [facility] [place] [address] Pain in right elbow; Debility Discharge Disposition: Home Social History Tobacco Use [...] 1 mg Tablet Take by mouth. 08/31/2017 glipiZIDE (GLUCOTROL XL) 10 mg Tablet Extended [...] Name Priority Date/Time Associated Diagnosis Comments XR JOINT ASPIRATION - MEDIUM JOINT RIGHT Routine 11/22/2017 3:50 PM EDT Pain in right elbow PROSTHETIC JOINT CULTURE, EXTENDED HOLD, AEROBIC & ANAEROBIC Routine 11/22/2017 3:40 PM EDT Pain in right elbow Debility JOINT CULTURE Routine 11/22/2017 3:40 PM EDT Pain in right elbow Debility ANAEROBIC CULTURE Routine 11/22/2017 3:4 0 PM EDT Pain in right elbow Debility FUNGUS CULTURE Routine 11/22/2017 3:40 PM EDT Pain in right elbow Debility documented in this encounter Results * XR Fluoro Guided Joint Aspiration Medium Right (11/22/2017 3:50 PM EDT) Anatomical Region Laterality Modality Right Radio Fluoroscop y Impressions 11/22/2017 4:19 PM EDT Uneventful right elbow joint aspiration. Resident/Fellow: None Attending: There was no attending present for this procedure Procedure performed by Aditi Ceja APRN Narrative 11/22/2017 4:19 PM EDT HISTORY: Pain, R/O infection of right elbow joint. RIGHT ELBOW JOINT ASPIRATION UNDER FLUOROSCOPY TECHNIQUE: After an extensive conversation with the patient regarding risks and benefits, oral and written consent were obtained.? A pre- procedural time-out was performed, including review of the patient's relevant electronic medical record and allergies, as per [facility] protocol. A pre- procedural time-out was performed as per [facility] protocol. The patient was placed supine on the fluoroscopic table. ??The skin overlying the right elbow joint was prepped and draped in the usual aseptic manner. 1% Lidocaine was used to achieve local anesthesia. Under fluoroscopic guidance, 22-gauge 1.5 inch needle was advanced into the joint space. ??Small amount of air was injected to document needle placement. Few drops of bloody fluid returned. All needles removed at end of procedure. FINDINGS: 1. ??Small amount of injected air in the right elbow joint space. 2. ??< 0.5 ml of bloody fluid aspirated, sent for culture, sensitivity, and gram stain. Specimen inadequate for cell count and crystals. MEDICATIONS: Lidocaine 1% - <5 ml, for subcutaneous anesthesia Fluoroscopy time: 0.07 minutes COMPLICATIONS: None immediate. POST-PROCEDURE CARE: Instructions on monitor of infection, management of post procedure pain were reviewed with patient. Procedure Note Aditi Ceja APRN - 11/22/2017 HISTORY: Pain, R/O infection of right elbow joint. RIGHT ELBOW JOINT ASPIRATION UNDER FLUOROSCOPY TECHNIQUE: After an extensive conversation with the patient regarding risks andbenefits, oral and written consent were obtained.? A pre- procedural time-out was performed, including review of the patient's relevant electronic medicalrecord and allergies, as per [facility] protocol. A pre- procedural time-out was performed as per [facility] protocol. The patient was placed supine on the fluoroscopic table. The skinoverlying the right elbow joint was prepped and draped in the usual aseptic manner. 1% Lidocaine was used to achieve local anesthesia. Under fluoroscopicguidance, 22-gauge 1.5 inch needle was advanced into the joint space. Small amountof air was injected to document needle placement. Few drops of bloody fluidreturned. All needles removed at end of procedure. FINDINGS: 1. Small amount of injected air in the right elbow joint space. 2. < 0.5 ml of bloody fluid aspirated, sent for culture, sensitivity, andgram stain. Specimen inadequate for cell count and crystals. MEDICATIONS: Lidocaine 1% - <5 ml, for subcutaneous anesthesia Fluoroscopy time: 0.07 minutes COMPLICATIONS: None immediate. POST-PROCEDURE CARE: Instructions on monitor of infection, management ofpost procedure pain were reviewed with patient. IMPRESSION Uneventful right elbow joint aspiration. Resident/Fellow: None Attending: There was no attending present for this procedure Procedure performed by Aditi Ceja APRN Christopher Correa MD IMG FLUORO ORDERABLE S * Anaerobic Culture (11/22/2017 3:40 PM EDT) Anaerobic Culture No anaerobic organisms isolated [facility] Joint fluid specimen (specimen) RIGHT ELBOW REGION STRUCTURE / Unknown 11/22/2017 3:40 PM EDT 11/22/2017 4:58 PM EDT Comment:PLEASE DO STAT GRAM STAIN AND CULTURE. HOLD SPECIMEN FOR 14 DAYS. Narrative Resulting Agency Comment Spec In Lab Christopher Correa MD MICROBIOLOGY - GENER AL ORDERABLES Performing Organization Address [facility] Co de Phone Number [facility] [place] [address] * Joint Culture (11/22/2017 3:40 PM EDT) Joint Culture No growth at 14 days. [facility] Gram Stain Cytocentrifuge Gram Stain performed No WBC's seen. No microorganisms seen. [facility] Joint fluid specimen (specimen) RIGHT ELBOW REGION STRUCTURE / Unknown 11/22/2017 3:40 PM EDT 11/22/2017 4:58 PM EDT Comment:PLEASE DO STAT GRAM STAIN AND CULTURE. HOLD SPECIMEN FOR 14 DAYS. Narrative Resulting Agency Comment Spec In Lab Christopher Correa MD MICROBIOLOGY - GENER AL ORDERABLES Performing Organization Address [facility]/ZIP Co de Phone Number [facility] [place] [address] * Fungus culture Joint (11/22/2017 3:40 PM EDT) Fungus Culture No Fungus isolated [facility] Joint specimen (specimen) 11/22/2017 3:40 PM EDT 11/22/2017 4:58 PM EDT Narrative Resulting Agency Comment Spec In Lab Christopher Correa MD MICROBIOLOGY - GENER AL ORDERABLES Performing Organization Address [facility] Co de Phone Number [facility] [place] [address] documented in this encounter Visit Diagnoses Diagnosis Pain in right elbow Pain in joint, upper arm Debility Debility, unspecified documented in this encounter Care Teams Retail Stock Clerk Relationship Specialty Start Date End Date Maryuri Evans MD [address] [place] [address] PCP - General 09/23/14 documented as of this encounter
--- OUTSIDE RECORDS SUMMARY | 2024-05-31 17:50 | XMS_ITS | Encounter Summary ---
Author Organization [facility] [place] [address] Care Team Providers Care Edging Machine Operator Name Role Phone Maryuri Evans MD Primary Care Provider [phone] Encounter Details Date Type Department Care Team (Late st Contact Info) Description 11/21/2017 Orders [place] [address] Christopher Correa MD [facility] [place] [address] Debility; Pain in right elbow Social History Tobacco [...] documented as of this encounter Results * Fungus culture Joint (11/22/2017 3:40 PM EDT) Fungus Culture No Fungus isolated [facility] Joint specimen (specimen) 11/22/2017 3:40 PM EDT 11/22/2017 4:58 PM EDT Narrative Resulting Agency Comment Spec In Lab Christopher Correa MD MICROBIOLOGY - GENER AL ORDERABLES [facility] [place] [address] documented in this encounter Visit Diagnoses Diagnosis Debility Debility, unspecified Pain in right elbow Pain in joint, upper arm documented in this encounter Care Teams Edging Machine Operator Relationship Specialty Start Date End Date Maryuri Evans MD [address] [place] [address] PCP - General 09/23/14 documented as of this encounter
--- OUTSIDE RECORDS SUMMARY | 2024-05-31 17:50 | XMS_ITS | Encounter Summary ---
Author Organization [facility] Address [facility] [place] [address] Care Team Providers Care Care Advocate Name Role Phone Maryuri Evans MD Primary Care Provider [phone] Encounter Details Date Type Department Care Team (Latest Contact Info) Description 12/16/2016 - 12/16/2016 11:59 PM EDT Hospital Encounter Radiology Library at [facility] [place] [address] Christopher Correa MD [facility] [place] [address] Discharge Disposition: Home Social History Tobacco Use [...] FILM LIBRARY STORAGE ONLY DX ELBOW Routine 12/16/2016 12:00 AM EDT documented in this encounter Results * Film Library- Storage Only DX Elbow (12/16/2016 12:00 AM EDT) Narrative [facility] - 09/23/2017 1:48 PM EST This exam is for storage only and is auto-finalizing. Christopher Correa MD IM FILM LIBRARY ORD ERABLES Performing Organization Address City/State/[facility] Co de Phone Number [place], [place] documented in this encounter Visit Diagnoses Not on filedocumented in this encounter Care Teams Care Advocate Relationship Specialty Start Date End Date Maryuri Evans MD [address] [place] [address] PCP - General 09/23/14 documented as of this encounter
--- OUTSIDE RECORDS SUMMARY | 2024-05-31 17:50 | XMS_ITS | Encounter Summary ---
Author Organization [facility] Address [facility] [place] [address] Care Team Providers Care Sleever Name Role Phone Maryuri Evans MD Primary Care Provider [phone] Encounter Details Date Type Department Care Team (Latest Contact Info) Description 08/25/2017 - 08/25/2017 11:59 PM EST Hospital Encounter Radiology Library at [facility] [place] [address] Christopher Correa MD [facility] [place] [address] Discharge Disposition: Home Social History Tobacco Use Types Packs/Day Years Used Date Smoking Tobacco: Never Sex and Gender Information Value Date Recorded Sex Assigned at Not on file Gender Identity Not on file Sexual Orientation Not on file documented as of this encounter Medications at Time of Discharge Medication Sig Dispensed Refills Start Date End Date glipiZIDE (GLUCOTROL XL) 10 mg Tablet Extended [...] Units subcutaneously nightly. 3 05/14/2017 02/19/20 21 levothyroxine (SYNTHROID) 100 mcg Tablet Take 100 [...] FILM LIBRARY STORAGE ONLY DX ELBOW Routine 08/25/2017 12:00 AM EST documented in this encounter Results * Film Library- Storage Only DX Elbow (08/25/2017 12:00 AM EST) Narrative [facility] - 09/23/2017 1:32 PM EST This exam is for storage only and is auto-finalizing. Christopher Correa MD IMG FILM LIBRARY ORD ERABLES Performing Organization Address City/State/[facility] Co de Phone Number [place], [place] documented in this encounter Visit Diagnoses Not on filedocumented in this encounter Care Teams Sleever Relationship Specialty Start Date End Date Maryuri Evans MD [address] [place] [address] PCP - General 09/23/14 documented as of this encounter
--- OUTSIDE RECORDS SUMMARY | 2024-05-31 17:50 | XMS_ITS | Encounter Summary ---
Author Organization [facility] Address [facility] [place] [address] Care Team Providers Care Sql Developer Name Role Phone Maryuri Evans MD Primary Care Provider [phone] Encounter Details Date Type Department Care Team (Latest Contact Info) Description 11/10/2015 - 11/10/2015 11:59 PM EDT Hospital Encounter Radiology Library at [facility] [place] [address] Christopher Correa MD [facility] [place] [address] Discharge Disposition: Home Social History Tobacco Use [...] FILM LIBRARY STORAGE ONLY DX ELBOW Routine 11/10/2015 12:00 AM EDT documented in this encounter Results * Film Library- Storage Only DX Elbow (11/10/2015 12:00 AM EDT) Narrative RAD - 09/23/2017 2:04 PM EST This exam is for storage only and is auto-finalizing. Christopher Correa MD IM FILM LIBRARY ORD ERABLES Performing Organization Address City/State/[facility] Co de Phone Number [place], [place] documented in this encounter Visit Diagnoses Not on filedocumented in this encounter Care Teams Sql Developer Relationship Specialty Start Date End Date Maryuri Evans MD [address] [place] [address] PCP - General 09/23/14 documented as of this encounter
--- OUTSIDE RECORDS SUMMARY | 2024-05-31 17:50 | XMS_ITS | Encounter Summary ---
Author Organization [facility] Address [address] [place] [address] Care Team Providers Care Comb Winder Name Role Phone Maryuri Evans MD Primary Care Provider [phone] Reason for Visit * Reason Onset Date Comments Medications Refill 02/03/2021 Encounter Details Date Type Department Care Team (Late st Contact Info) Description 02/03/[address] [facility] Orthopedic Trauma - [address] [address] Mable Jones, SUNIL Medications Refill Social History Tobacco Use Types Packs/Day Years [...] Dispensed Refills Start Date End Da te traMADol (ULTRAM) 50 mg tablet Take 1 Tablet by mouth every 8 hours as needed for up to 7 days for Pain. Daily Max: 150 mg 21 Tablet 02/03/2021 02/10/2021 documented in this encounter Miscellaneous Notes * Telephone Encounter - Mable Jones RN - 02/03/2021 1610 EDT Pt continues to be in candis post op pain. Dr Donald ok with 1 week of tramadol. Pended surgeon Deuce. She is icing and elevating, along with tyl and ibuprofen regularly. She was wb inappropriately which is adding to the pain. Reeducated on NON wb. documented in this encounter Plan of Treatment Not on file documented as of this encounter Visit Diagnoses Not on filedocumented in this encounter Care Teams Comb Winder Relationship Specialty Start Date End Date Maryuri Evans MD [address] [place] [address] PCP - General 01/11/21 documented as of this encounter
--- OUTSIDE RECORDS SUMMARY | 2024-05-31 17:50 | XMS_ITS | Clinical Summary ---
Author Organization [facility] Address [address] [place] [address] Care Team Providers Care Bushing And Broach Operator Name Role Phone Maryuri Evans MD Primary Care Provider Allergies Active Allergy Reactions Criticality Noted Date [...] left ankle with routine heali ng 01/13/2021 Surgical History Surgery Date Site/Laterality Comments SHOULDER SURGERY Bilateral L for a fracture and cartiledge removal; R for cartiledge removal TONSILLECTOMY ELBOW SURGERY 6 surgeries on R elbow HYSTERECTOMY Complete Medical History Medical History Date Comments Migraine Hypothyroid Diabetes mellitus ([facility]) Type 2 FS TID range 67-204 History of general anesthesia Gasper linares denies complications with anesthesia in the past Poor dentition No teeth Hypertension Hypothyroidism GERD (gastroesophageal reflux disease) History of blood transfusion 200 0 complete hysterectomy, 3 transfusions Depression Pain Left ankle Fatigue due to excessive exertion Weight loss unexpected weigh t loss Broken bones Osteoporosis Joint swelling Numbness Headache Family History Medical History Relation Comments Heart Disease Father AVR, stents Diabetes Maternal Grandmother Diabetes Mother Relation Status Comments Father Maternal Grandmother Mother Social History Tobacco Use Types Packs/Day Years [...] 23:02 EDT Sexual Orientation Not on file Obstetrics History Last Filed Vital Signs Vital Sign Reading [...] Body Mass Index 33.78 01/21/2021 0635 EDT Plan of Treatment Health Maintenance Due Date Last Done Comments Hepatitis C Screen 1960 RSV Immunization ( o r 60+ Years) (1 - 1-dose 60+ series) 2021 COVID-19 Vaccine (2022-24 season) 2023 Medical Devices Implanted Type Area Information Clerk Device Identifier Shelf Expiration Date Model / Serial / Lot Plate Bone Cmprs Lckng Postlat Distl Fib 3 Hole Lt 2.7/3.5x77mm Lcp [id number] - [id number] Implanted:Qty : 1 on 01/21/2021 by William Donald MD at [facility] Plate Implant Left: Ankle [employer] 02.112.10 7 / / Plate Bone Cmprs Lckng Distl Fib Tb 5 Hole W/Collr [id number] Lc Dcp 14965 - [id number] Implanted:Qty : 1 on 01/21/2021 by William Donald MD at [facility] Plate Implant Left: Ankle [employer] 241.35 / / Screw Bone Lc-Dcp Ss 3.5mm 45mm Prox Medial Cortical Tib Slftap Sm Frag Set Mdlr Ft - [id number] Implanted:Qty : 2 on 01/21/2021 by William Donald MD at [facility] Screw Implant Left: Ankle [employer] 204.845 / / Screw Bone Lc-Dcp Ss 3.5mm 12mm Prox Medial Cortical Tib Slftap Sm Frag Set Mdlr Ft - [id number] Implanted:Qty : 1 on 01/21/2021 at [facility] Screw Implant Left: Ankle [employer] 204.812 / / Screw Bone Lc-Dcp Ss 3.5mm 14mm Prox Medial Cortical Tib Slftap Sm Frag Set Mdlr Ft - [id number] Implanted:Qty : 1 on 01/21/2021 at [facility] Screw Implant Left: Ankle [employer] 204.814 / / Screw Bone Slf Tpng Lckng 2.7x10mm Lcp [id number] - [id number] Implanted:Qty : 1 on 01/21/2021 at [facility] Screw Implant Left: Ankle [employer] 202.210 / / Screw Bone Slf Tpng Lckng 2.7x12mm Lcp [id number] - [id number] Implanted:Qty : 2 on 01/21/2021 by William Donald MD at [facility] Screw Implant Left: Ankle [employer] 202.212 / / Screw Bone Cortical Slf Tpng 2.7x40mm Dcp [id number] - [id number] Implanted:Qty : 1 on 01/21/2021 by William Donald MD at [facility] Screw Implant Left: Ankle [employer] 202.84 / / Screw Bone Slf Tpng Fthrd Lckng 3.5x10mm Lcp [id number] - [id number] Implanted:Qty : 1 on 01/21/2021 by William Donald MD at [facility] Screw Implant Left: Ankle [employer] 212.101 / / Screw Bone Lcp Ss 3.5mm 12mm Prox Medial Tib Slftap Locking [employer]ardrive Recess Sm Frag - [id number] Implanted:Qty : 1 on 01/21/2021 by William Donald MD at [facility] Screw Implant Left: Ankle [employer] 212.102 / / Advance Directives For more information, please contact: [phone] * Full Code (Latest Code Status on File) Date Activated Date Inactivated Comments 01/21/2021 6:28 01/21/2021 15:22 Question Answer Comments Reason for decision includes: Full code consistent with overall plan of care Who participated in the discussion? Not Discusse d Care Teams Bushing And Broach Operator Relationship Specialty Start Date End Date Maryuri Evans MD [address] [place] [address] PCP - General 01/11/21
--- OUTSIDE RECORDS SUMMARY | 2024-05-31 17:50 | XMS_ITS | Encounter Summary ---
Author Organization [facility] Address [facility] [place] [address] Care Team Providers Care Shell Sieve Operator Name Role Phone Maryuri Evans MD Primary Care Provider [phone] Reason for Visit * Reason Comments Elbow Injury R elbow fx 6 DOS 08/29/2017 * Consultation (Routine) - Closed Specialty Diagnoses / Procedures Referred By Contac t Referred To Contact Orthopaedics Diagnoses elbow joint pain, right Maryuri Evans MD [address] [place] [address] [facility] [address] [place] [id number] Referral ID Status Reason Start Date Expiration Date V isits Requested Visits Authorized [id number] Closed Consult, Test & Treat Connection [facility] 09/15/2017 09/15/2018 1 1 Encounter Details Date Type Department Care Team (Late st Contact Info) Description 11/08/2017 2:30 PM EDT Office [place] [address] Christopher Correa MD [facility] [place] [address] Pain in right elbow Social History Tobacco [...] Sign Reading Time Taken Comments Blood Pressure 119/53 11/08/2017 2:16 PM EDT Pulse 69 11/08/2017 2:16 PM EDT Temperature - - Respiratory Rate - - Oxygen Saturation - - Inhaled Oxygen Concentration - - Weight 84.4 kg (186 lb) 11/08/2017 2:16 PM EDT Height 154.9 cm (5' 1) 11/08/2017 2:16 PM EDT Body Mass Index 35.14 11/08/2017 2:16 PM EDT documented in this encounter Progress Notes * Declan Saunders MD - 11/08/2017 2:30 PM EDT Chief complaint: Right elbow pain History of present illness: 56-year-old female with extensive history regarding her right elbow. She initially slipped on the ice in October 2015 and fell directly onto her right elbow sustaining a comminuted olecranon and radialhead fracture. At that point she was immobilized and placed in a splint however surgery needed to be delayed for 3 weeks as she had developed fracture blisters over the skin. She denies having an open fracture or wound from the fracture other than the fracture blisters. However she eventually did undergo open reduction internal fixation of the olecranon and had a radial head replacement for the radial head fracture. She reports that the wound never really healed from this first surgery that she continue to drain and that she was treated with multiple courses of p.o. Bactrim with local debridement in the office. The wound grossly dehisced in March 2016 at which point she underwent an I&D and removal of most of the olecranon hardware however hardware in the medial condyle and also the radial head replacement were left in place. She reports she continued to have drainage from the wound following this surgery as well which she is continually treated with wound debridement locally andoral antibiotics. 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 At this point she underwent fixation with what appears to be a Steinmann pin through the olecranon into the shaft of the ulna at which point she also had her radial headreplacement removed. The she continued to have drainage from the wound and had this removed all in August 2017. Since this time she has continued with pain in the elbow with feelings of instability as well. 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 She isright-hand dominant but has learned to use her left hand for more of her activities of daily living. Since her last surgery the wound has healed with no drainage. She denies any recent fevers or chills. The elbow will get swollen occasionally. Past medical history: Hypertension, diabetes mellitus recent A1c 7.2 Past surgical history: Elbow surgery on the right as above, hysterectomy in 1999, release of multiple trigger fingers on both right and left hands Medications and allergies: Reviewed and updated in electronic medical record Social history: Right-hand dominant, denies tobacco or alcohol use, lives up near [facility] Physical examination: No acute distress, overall well-appearing Examination of the right elbow demonstrates well-healed surgical incision without erythema or drainage at this time. The elbow does appear swollen compared to contralateral. She does have good range of motion from approximately 0-100?? of flexion. She has intact supination and pronation with approximately 60?? in each direction. She has gross laxity at the elbow to varus and valgus stress testing. She has intact motion at the wrist, FPL, EPL, interossei. She has intact sensation in axillary, radial, ulnar, median distribution. Less than 2 second refill capillary refill with intact radial pulse. Imaging: X-rays of her left elbow were personally reviewed from initial injury films to current. 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 There is no radial head. There are changes within the bone consistent with potential osteomyelitis. Assessment and plan: 56-year-old female status post multiple procedures on the right elbow most recently open reduction internal fixation with Steinmann pin. She previously had a draining wound which was treated only with oral antibiotics and never IV antibiotics. At this point discussed options for her to assist with her pain. Did discuss that she is not a candidate for a total elbow arthroplasty given her history of infection and also an incompetent extensor mechanism. At this point her options would be to continue to live with the pain but maintain her range of motion or to undergo an elbow fusion and have limited range of motion on that side. At this point should like to proceed with a elbow effusion as herpain is quite severe and is keeping her awake at night and limiting her ability to function normally. Did discuss with an elbow effusion she would likely not be able to use her arm as she normally did would likely not be able to return to her previous work. She understood and wishes to proceed witha right elbow fusion. Surgical consent was reviewed and signed by the patient today in clinic and she will screw schedule was to occur at her earliest convenience. Prior to this elbow fusion however we will drive have inflammatory markers drawn in the lab for CRP, ESR, CBC. In addition we will haveher elbow joint aspirated by fluoroscopic guidance in the radiology department to see if there is persistent joint infection. If an infection persists we may need to proceed with a irrigation and debridement and then fuse her elbow in a two-stage fashion. In the interim we will have her fitted witha hinged elbow brace so that she may find a functional position for her elbow to be fused in. * Liss Porter RN - 11/08/2017 2:30 PM EDT Pre Op Teaching Elbow Surgery Patient educated on importance of staying healthy and maintaining skin integrity, especially of effected arm pre-op. Patient will inform us of any skin rashes, breaks in skin or illnesses prior to surgery. Discussed practicing ADL???s with non-operative arm. Discussed no ASA or NSAID'S 7 days prior to surgery. May take Tylenol if needed. General post op guidelines discussed including hydration, nutrition, constipation, ice and most importantly elevation of arm. A review of typically prescribed post op pain medication and suggestions for taking and tapering them in a methodical fashion was undertaken. Hibiclens soap instructions given Written material given Elbow Surgery. Questions solicited and answered. Pt knows to call with any additional questions or concerns. Patient advised to read post-op instructions from day of surgery for specific recommendations aftersurgery. Requesting information on how to apply for disability. Unable to reach Keniadeb Pope natural resources instructor. Sent e-mail requesting her to call patient tomorrow. patient content with this plan. * Christopher Correa MD - 11/08/2017 2:30 PM EDT Attending Addendum: The preceding portion of this note was written by Dr. Saunders. I personally saw and evaluated the patient as well and I agree with the assessment and plan documented above. This is a pretty complicated situation. She's had extensive infection with many attempts at cure. 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 She has reasonable range of motion, but gross instabilityof the elbow. Pain is her biggest complaint. I had a long discussion with her. I explained to her the total elbow is not a reasonable option given the extensive infection and the likelihood of that re curring with a prosthetic, combined with her young age and her elbow instability. I would recommendeither bracing or fusing the elbow is the most durable procedure. She would like to proceed with fusion. We will get this scheduled for her at the next available time. Christopher Correa M.D., M.S. [employer] of Orthopaedic Surgery Shoulder, Elbow, and Sports Medicine Department of [place] [address] documented in this encounter Plan of Treatment Not on file documented as of this encounter Procedures Procedure Name Priority Date/Time Associated Diagnosis Comments ARTHRODESIS, ELBOW JOINT WITH AUTOGENOUS GRAFT Routine 11/08/2017 3:12 PM EDT documented in this encounter Results [...] electronic medical record and allergies, as per [facility] protocol. A pre- procedural time-out was performed as per [facility] protocol. The patient was placed supine on [...] relevant electronic medicalrecord and allergies, as per [facility] protocol. A pre- procedural time-out was performed as per [facility] protocol. The patient was placed supine on [...] Christopher Correa MD IMG FLUORO ORDERABLE S documented in this encounter Visit Diagnoses Diagnosis Pain in right elbow Pain in joint, upper arm Pain in right elbow Pain in joint, upper arm Debility Debility, unspecified documented in this encounter Care Teams Shell Sieve Operator Relationship Specialty Start Date End Date Maryuri Evans MD [address] [place] [address] PCP - General 09/23/14 documented as of this encounter
--- OUTSIDE RECORDS SUMMARY | 2024-05-31 17:50 | XMS_ITS | Encounter Summary ---
Author Organization [facility] Address [facility] [place] [address] Care Team Providers Care Pulp Machine Operator Name Role Phone Maryuri Evans MD Primary Care Provider [phone] Encounter Details Date Type Department Care Team (Latest Contact Info) Description 03/16/2017 - 03/16/2017 11:59 PM EDT Hospital Encounter Radiology Library at [facility] [place] [address] Christopher Correa MD [facility] [place] [address] Discharge Disposition: Home Social History Tobacco Use [...] FILM LIBRARY STORAGE ONLY DX ELBOW Routine 03/16/2017 12:00 AM EDT documented in this encounter Results * Film Library- Storage Only DX Elbow (03/16/2017 12:00 AM EDT) Narrative FREDA - 09/23/2017 1:54 PM EST This exam is for storage only and is auto-finalizing. Christopher Correa MD IM FILM LIBRARY ORD ERABLES Performing Organization Address City/State/[facility] Co de Phone Number [place], [place] documented in this encounter Visit Diagnoses Not on filedocumented in this encounter Care Teams Pulp Machine Operator Relationship Specialty Start Date End Date Maryuri Evans MD [address] [place] [address] PCP - General 09/23/14 documented as of this encounter
--- OUTSIDE RECORDS SUMMARY | 2024-05-31 17:50 | XMS_ITS | Encounter Summary ---
Author Organization [facility] Address [facility] [place] [address] Care Team Providers Care Mixer Dry Food Products Name Role Phone Maryuri Evans MD Primary Care Provider [phone] Encounter Details Date Type Department Care Team (Latest Contact Info) Description 11/26/2016 - 11/26/2016 11:59 PM EDT Hospital Encounter Radiology Library at [facility] [place] [address] Christopher Correa MD [facility] [address] Discharge Disposition: Home Social History Tobacco Use [...] FILM LIBRARY STORAGE ONLY DX ELBOW Routine 11/26/2016 12:00 AM EDT documented in this encounter Results * Film Library- Storage Only DX Elbow (11/26/2016 12:00 AM EDT) Narrative FREDA - 09/23/2017 1:46 PM EST This exam is for storage only and is auto-finalizing. Christopher Correa MD IM FILM LIBRARY ORD ERABLES Performing Organization Address City/State/[facility] Co de Phone Number [place], [place] documented in this encounter Visit Diagnoses Not on filedocumented in this encounter Care Teams Mixer Dry Food Products Relationship Specialty Start Date End Date Maryuri Evans MD [address] [place] [address] PCP - General 09/23/14 documented as of this encounter
--- OUTSIDE RECORDS SUMMARY | 2024-05-31 17:50 | XMS_ITS | Encounter Summary ---
Author Organization [facility] Address [facility] [place] [address] Care Team Providers Care Fabric Stretcher Name Role Phone Maryuri Evans MD Primary Care Provider [phone] Encounter Details Date Type Department Care Team (Latest Contact Info) Description 11/20/2015 - 11/20/2015 11:59 PM EDT Hospital Encounter Radiology Library at [facility] [place] [address] Christopher Correa MD [facility] [place] [address] Discharge Disposition: Home Social History Tobacco Use [...] FILM LIBRARY STORAGE ONLY DX ELBOW Routine 11/20/2015 12:00 AM EDT documented in this encounter Results * Film Library- Storage Only DX Elbow (11/20/2015 12:00 AM EDT) Narrative RAD - 09/23/2017 2:05 PM EST This exam is for storage only and is auto-finalizing. Christopher Correa MD IM FILM LIBRARY ORD ERABLES Performing Organization Address City/State/[facility] Co de Phone Number [place], [place] documented in this encounter Visit Diagnoses Not on filedocumented in this encounter Care Teams Fabric Stretcher Relationship Specialty Start Date End Date Maryuri Evans MD [address] [place] [address] PCP - General 09/23/14 documented as of this encounter
--- OUTSIDE RECORDS SUMMARY | 2024-05-31 17:50 | XMS_ITS | Encounter Summary ---
Author Organization [facility] [place] [address] Care Team Providers Care Turkey Roll Maker Name Role Phone Maryuri Evans MD Primary Care Provider [phone] Reason for Visit * Reason Comments Psoriasis Encounter Details Date Type Department Care Team (Late st Contact Info) Description 09/23/2014 9:45 AM EST Office Visit Dermatology at [address] [place] [id number] Daryl Mariscal MD [address] [facility] [place] [address] Psoriasis Discharge Disposition: Home Social History Tobacco Use Types Packs/Day Years Used Date Smoking Tobacco: Never Sex and Gender Information Value Date Recorded Sex Assigned at Not on file Gender Identity Not on file Sexual Orientation Not on file documented as of this encounter Patient Instructions * Patient Instructions* Jaycee Moncada LPN - 09/23/2014 10:10 AM EST Images from the original note were not included. [facility] Psoriasis: After Your Visit Your Care Instructions Psoriasis (say nyx-HT-pz-sunny) is a long-term skin problem that causes [...] still damp. This seals in moisture. Use sjns-rnd-qexonfm products that your doctor suggests. These may [...] more? Visit our health information library at [email or web address] You can also view health information on [employer], your personal patient account. Log in or sign up today. Enter [id number] in the search box to learn more about Psoriasis: After Your Visit. ?? [id number] [employer]. Care instructions adapted under license by [facility]. This care instruction is for use with your licensed healthcare professional. If you have questions about a medical condition or this instruction, always ask your healthcare professional. [employer] disclaims any warranty or liability for your use of this information. Content Version: 10.3.702345; Current as of: October 31, 2013 documented in this encounter Progress Notes * Daryl Mariscal MD - 09/23/2014 10:44 AM EST Problem: Psoriasis. Jesenia is a 53-year-old woman who is referred today by Maryuri Evans for treatment of psoriasis of the lower occipital scalp. It has been present for at least a year. Her mother sounds like had also a case of psoriasis, but that is totally in remission now, Jesenia states. Treatments tried to date have included triamcinolone cream, Nizoral shampoo, clobetasol liquid and cream. The patient is seen consultation for Maryuri Evans M.D. Physical examination reveals a pleasant 53-year-old woman who has a large thick plaque of psoriasis on the lower occipital scalp, which measures 7 x 3 cm. She has no psoriasis on the elbows or knees. 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 Assessment and Plan: 1. GA. a. Patient reassured. b. Patient has already tried topical clobetasol cream without benefit for this, she states for three months. c. Would recommend watchful waiting, as I think it will run its course and resolve. Discussed the increased incidence of this in diabetes. 2. Psoriasis, occipital scalp. a. Today 3 mL of 5 mg/mL Kenalog were injected into the plaque. b. Patient tolerated well. c. Recommend I see her again in another month for repeat check. d. Discussed the potential for at least six months of clearance/remission from psoriasis with this treatment. Return to clinic in one month. COPY: Maryuri Evans M.D. documented in this encounter Plan of Treatment Not on file documented as of this encounter Visit Diagnoses Diagnosis Psoriasis Other psoriasis documented in this encounter Care Teams Turkey Roll Maker Relationship Specialty Start Date End Date Maryuri Evans MD [address] [place] [address] PCP - General 09/23/14 documented as of this encounter
--- OUTSIDE RECORDS SUMMARY | 2024-05-31 17:50 | XMS_ITS | Encounter Summary ---
Author Organization [facility] Address [facility] [place] [address] Care Team Providers Care Funding Analyst Name Role Phone Maryuri Evans MD Primary Care Provider Encounter Details Date Type Department Care Team (Latest Contact Info) Description 01/07/2016 - 01/07/2016 11:59 PM EDT Hospital Encounter Radiology Library at [facility] [place] [address] Christopher Correa MD [facility] [place] [address] Discharge Disposition: Home Social History Tobacco Use [...] FILM LIBRARY STORAGE ONLY DX ELBOW Routine 01/07/2016 12:00 AM EDT documented in this encounter Results * Film Library- Storage Only DX Elbow (01/07/2016 12:00 AM EDT) Narrative FREDA - 09/23/2017 1:34 PM EST This exam is for storage only and is auto-finalizing. Christopher Correa MD IM FILM LIBRARY ORD ERABLES Performing Organization Address City/State/[facility] Co de Phone Number [place], [place] documented in this encounter Visit Diagnoses Not on filedocumented in this encounter Care Teams Funding Analyst Relationship Specialty Start Date End Date Maryuri Evans MD [address] [place] [address] PCP - General 09/23/14 documented as of this encounter
--- OUTSIDE RECORDS SUMMARY | 2024-05-31 17:50 | XMS_ITS | Encounter Summary ---
[place] [address] Care Team Providers Care Technical Operations Vice President Name Role Phone Maryuri Evans MD Primary Care Provider [phone] Encounter Details Date Type Department Care Team (Late st Contact Info) Description 11/15/2017 [place] [id number] Luann-Kenia Arnold Social History Tobacco Use Types Packs/Day Years [...] encounter Miscellaneous Notes * Telephone Encounter - Kenia Kong - 11/15/2017 1:34 PM EDT Called and was informed that Jesenia would not be home until 2:30-3:00 pm today. Will try again later. documented in this encounter Plan of Treatment Not on file documented as of this encounter Visit Diagnoses Not on filedocumented in this encounter Care Teams Technical Operations Vice President Relationship Specialty Start Date End Date Maryuri Evans MD [address] [place] [address] PCP - General 09/23/14 documented as of this encounter
--- OUTSIDE RECORDS SUMMARY | 2024-05-31 17:51 | XMS_ITS | Encounter Summary ---
Author Organization [facility] Address [address] [place] [address] Care Team Providers Care Work Adjustment Instructor Name Role Phone Maryuri Evans MD Primary Care Provider [phone] Reason for Referral * Radiology Services (Routine/Next Available) - Closed Specialty Diagnoses / Procedures Referred By Cristelaac t Referred To Contact Diagnoses Closed fracture of left ankle with routine healing, subsequent encounter Procedures XR ANKLE LEFT 3 OR MORE VIEWS William Donlad MD [address] [place] [address] Referral ID Status Reason Start Date Expiration Date Visits Re quested Visits Authorized [id number] Closed 01/13/2021 1 1 Reason for Visit * Radiology Services (Routine/Next Available) - Closed Specialty Diagnoses / Procedures Referred By Keith yung Referred To Contact Diagnoses Closed fracture of left ankle with routine healing, subsequent encounter Procedures XR ANKLE LEFT 3 OR MORE VIEWS William Donald MD [address] [place] [phone] Referral ID Status Reason Start Date Expiration Date Visits Re quested Visits Authorized [id number] Closed 01/13/2021 1 1 Encounter Details Date Type Department Care Team (Latest Contact Info) Description 01/13/2021 12:02 EDT - 01/13/2021 23:59 EDT Hospital Encounter [facility] Xray [address] [place] [address] Closed fracture of left ankle with routine healing, subsequent encounter Discharge Disposition: Home or Self Care Social [...] have Coronavirus / COVID-19? No / Unsure 01/11/2021 22:49 EDT documented as of this encounter Functional [...] mouth at bedtime. naproxen (NAPROSYN) 375 mg tabletIndications:headach e disorder Take 375 mg by mouth 2 times daily. sertraline (ZOLOFT) 50 mg tablet Take 200 mg by mouth daily. topiramate (TOPAMAX) 25 mg tabletIndications:migrain e prevention Take 50 mg by mouth 2 times daily. HYDROcodone-acetaminophen (NORCO) 5-325 mg tablet Take 1 Tab by mouth at bedtime. Daily Max: 1 Tab 9 Tab 01/13/2021 01/21/2021 oxyCODONE (ROXICODONE) 5 mg immediate release tablet Take 1 Tab by mouth every 6 hours as needed for Pain. Daily Max: 20 mg 15 Tab 01/21/2021 01/26/2021 documented as of this encounter Discharge Disposition Disposition Code Departure Means Destination Home or Self Care documented in this encounter Plan of Treatment Not on file documented as of this encounter Procedures Procedure Name Priority Date/Time Associated Diagnosis Comments XR ANKLE LEFT 3 OR MORE VIEWS Routine 01/13/2021 12:13 EDT Closed fracture of left ankle with routine healing, subsequent encounter documented in this encounter Results * XR ANKLE LEFT 3 OR MORE VIEWS (01/13/2021 12:13 EDT) Anatomical Region Laterality Modality Lower Extremities, Ankle Left Compute d Radiography 01/13/2021 14:2 7 EDT Impressions 01/13/2021 14:27 EDT FINDINGS / IMPRESSION: * ??Left ankle 3 views * ??Stable alignment status post reduction of fracture dislocation. Overlying cast material obscures osseous detail. * ??Marked calcaneal enthesopathy. Narrative 01/13/2021 14:27 EDT EXAM/TECHNIQUE: XR ANKLE LEFT 3 OR MORE VIEWS ??01/13/2021 12:15 PM HISTORY: ??Assess healing COMPARISON: None. Procedure Note David Palacio MD - 01/13/2021 EXAM/TECHNIQUE: XR ANKLE LEFT 3 OR MORE VIEWS 01/13/2021 12:15 PM HISTORY: Assess healing COMPARISON: None. IMPRESSION FINDINGS / IMPRESSION: * Left ankle 3 views * Stable alignment status post reduction of fracture dislocation.Overlying cast material obscures osseous detail. * Marked calcaneal enthesopathy. William Donald MD IMG DIAGNOSTIC I MAGING ORDERABLES documented in this encounter Visit Diagnoses Diagnosis Closed fracture of left ankle with routine healing, subsequent encounter documented in this encounter Care Teams Work Adjustment Instructor Relationship Specialty Start Date End Date Maryuri Evans MD [address] [place] [address] PCP - General 01/11/21 documented as of this encounter
--- OUTSIDE RECORDS SUMMARY | 2024-05-31 17:51 | XMS_ITS | Encounter Summary ---
Author Organization [facility] Address [address] [place] [id number] Care Team Providers Care Nurse Case Management Name Role Phone Maryuri Evans MD Primary Care Provider [phone] Reason for Visit * Auth/Cert Specialty Diagnoses / Procedures Referred By Keith t Referred To Contact Diagnoses Closed fracture of left ankle with routine healing Procedures [place] OPEN TX TRIMALLEOLAR ANKLE FX W/O FIX PST LIP William Donald MD [address] [place] [phone] Referral ID Status Reason Start Date Expiration Date Visits Re quested Visits Authorized [id number] 01/13/2021 1 1 Encounter Details Date Type Department Care Team (Late st Contact Info) Description 01/21/2021 7:42 EDT Anesthesia Event [facility] OR [address] [place], [place] [id number] George Thompson MD [address] [place] [address], [address] [place] [address] Hilda Colorado DO Anesthesia Record Procedure Summary Procedure Name Responsible Anesthesiologist Anesthesia Start Time Anesthesia Stop Time open reduction internal fixation of left ankle trimalleolar equivalent fracture (Left: Ankle) George Thompson MD 01/21/21 0742 01/21/21 1102 Events Date Time Event Comment 01/21/2021 0742 An Start The patient was re-evaluated immediately before moderate or deep sedation use, before anesthesia induction, or before the anesthesia procedure. 0742 An Start Data 0749 An Induction The patient was reevaluated immediately before moderate or deep sedation use and before anesthesia induction. 0755 An Intubation 0759 Anesthesia Ready 0903 Ollie FSBS 194 1051 An Extubation 1053 an stop data 1102 Handoff to RN I completed my handoff to the receiving nurse during which we: 1. Identified the patient 2. Identified the responsible provider 3. Reviewed the pertinent medical history 4. Discussed the surgical course 5. Reviewed intra-op anesthesia management and issues during anesthesia 6. Set expectations for post-procedure period 7. Allowed opportunity for questions and acknowledgement of understanding. 1102 An Stop Meds Name Total fentanyl citrate (PF) injection 125 mcg HYDROmorphone vial 2 mg/mL 0.2 mg lidocaine 2% (PF) injection glass vial 8 0 mg midazolam 1 mg/mL 2 mL vial 1 mg ondansetron (PF) (ZOFRAN) injection 4 mg phenylephrine pre-filled syringe 200 mcg propOFol (DIPRIVAN) injection 160 mg propofol (DIPRIVAN) 500 mg in 50 mL infu rena 363,328 mcg rocuronium 10 mg/mL vial 85 mg sugammadex 100 mg/mL 2 mL vial 175 mg ceFAZolin injection 2,000 mg phenylephrine pre-made bag 20 mg/250 mL 780 mcg acetaminophen 10 mg/ml 100 mL infusion 1 ,000 mg dexmedetomidine injection - vial 8 mcg labetalol 5 mg/mL 20 mL vial 40 mg lactated ringers (LR) infusion 1,000 mL * Agents Name Insp Sevoflurane Exp Sevoflurane O2 N2O Air * Blood No blood administrations on file. Lines, Drains, and Airways Type Details Placement Removal Wound 01/21/21; Incision; Left, Lateral; Ankle; left ankle; N; Full thickness 01/21/21 0000 by [place] Méndez, SUNIL Peripheral IV 01/21/21; 0651; 20; 1.25; Anterior, Left; Forearm; Inserted by RN; 1; None; 3.15% Chlorhexidine with IPA 01/21/21 0651 by Jessenia Barber RN documented in this encounter Social History [...] No 01/13/2021 documented as of this encounter OR Notes * Anesthesia Postprocedure Evaluation - Hilda Colorado DO - 01/21/2021 1102 EDT Patient: Jesenia Méndez Vital signs were reviewed with the recovery nurse. Complete vitals history is available in the Epicflowsheets. Vitals Value Taken Time BP 122/64 01/21/21 1100 Temp 36.3 01/21/21 1102 Resp 17 01/21/21 1102 Pulse From Oximetry 79 BPM 01/21/21 1102 SpO2 100 % 01/21/21 1102 Vitals shown include unvalidated device data. Last Pain Score - Numeric Pain Level (Scale 1-10): 10 Type of Anesthesia - general Anesthesia Post Evaluation Post-procedure vitals reviewed and are stable. Level of consciousness: alert and oriented Temperature status: normothermia Respiratory status: airway patent and nasal cannula Cardiovascular status: acceptable Hydration status: adequate Nausea/Vomiting: none Pain management: adequate Post-Op Assessment: patient tolerated procedure well with no complications Patient participation: able to participate Disposition: outpatient/home Anesthesia Complications: No apparent anesthesia complications * Anesthesia Procedure Notes - Hilda Colorado DO - 01/21/2021 0812 EDT Associated Order(s): Airway Airway Date/Time: 01/21/2021 7:55 Urgency: elective Airway not difficult General Information and Staff Patient location during procedure: OR Anesthesiologist: George Thompson MD Resident/FLY RAIL OPERATOR: Hilda Colorado DO Performed: resident/FLY RAIL OPERATOR/AA Indications and Patient Condition Indications for airway management: anesthesia Sedation level: GA Preoxygenated: yes Patient position: ramp Ventilation assessment: 1 - Easy Final Airway Details Final airway type: endotracheal airway Successful airway: ETT Cuffed: yes Successful intubation technique: direct laryngoscopy Endotracheal tube insertion site: oral Blade: Slim Blade size: #3 ETT size (mm): 7.0 Cormack-Lehane Classification: grade I - full view of glottis Placement verified by: chest auscultation and capnometry Measured from: gums ETT to gums (cm): 21 Number of attempts at approach: 1 * Anesthesia Preprocedure Evaluation - Hilda Colorado DO - 01/21/2021 0712 EDT Anesthesia Preprocedure Evaluation 60 yo F presenting for ORIF of left ankle trimalleolar equivalent fracture. Additional PMH includes: ??? HTN ??? DM2 on insulin ??? Hypothyroidism ??? Migraine headaches Appropriately NPO. Anesthesia history: no previous adverse reactions; denies family history of life-threatening reactions to anesthesia. Functional status: able to perform >4 METS. COVID screening: negative (01/18/21) No results found for: WBC, HGB, HCT, MCV, PLT No results found for: NA, K, KEXT, CL, CLEXT, CO2, CO2EXT Lab Results Component Value Date HGBA1C 6.9 (H) 01/17/2021 MEDICATIONS No current facility-administered medications for this encounter. Current Outpatient Medications Medication ??? aspirin chewable 81 mg tablet ??? calcium carbonate (CALCIUM 600 ORAL) ??? cyclobenzaprine (FLEXERIL) 10 mg tablet ??? glyBURIDE (DIABETA) 5 mg tablet ??? HYDROcodone-acetaminophen (NORCO) 5-325 mg tablet ??? hydrOXYzine (ATARAX) 25 mg tablet ??? insulin glargine (LANTUS SOLOSTAR) 100 unit/mL (3 mL) injection pen ??? levothyroxine (SYNTHROID) 50 mcg tablet ??? liraglutide (VICTOZA 3-LISANDRA) 0.6 mg/0.1 mL (18 mg/3 mL) injectable pen ??? losartan (COZAAR) 25 mg tablet ??? naproxen (NAPROSYN) 375 mg tablet ??? sertraline (ZOLOFT) 50 mg tablet ??? topiramate (TOPAMAX) 25 mg tablet Patient Medical History, including Anesthesia History reviewed. Chart and Nursing Notes reviewed, including NPO status and Medication History. Additional ROS/History Findings: Allergies Allergen Reactions ??? Erythromycin Other (See Comments) I get terrible sharp pains in my stomach. ??? Metformin Nausea And Vomiting Review of Systems Constitutional: Negative. Negative for chills and fever. Respiratory: Negative. Negative for shortness of breath. Cardiovascular: Negative. Negative for chest pain and orthopnea. Gastrointestinal: Positive for heartburn. Controlled with protonix Musculoskeletal: Positive for joint pain. Left ankle Neurological: Negative. Endo/Heme/Allergies: Negative. Past Medical History: Diagnosis Date ??? Depression ??? Diabetes mellitus ([facility]) Type 2 FS TID range 67-204 ??? GERD (gastroesophageal reflux disease) ??? History of blood transfusion 2000 complete hysterectomy, 3 transfusions ??? History of general anesthesia Patient denies complications with anesthesia in the past ??? Hypertension ??? Hypothyroid ??? Hypothyroidism ??? Migraine ??? Pain Left ankle ??? Poor dentition No teeth Relevant Problems No relevant active problems Physical Exam Airway Mallampati: II TM distance: <3 FB Neck ROM: full Comments: Adequate mouth opening. Cardiovascular - normal exam Rhythm: regular Rate: normal Dental Comments: edentulous Pulmonary - normal exam Breath sounds clear to auscultation Abdominal (+) obese Anesthesia Plan ASA 2 Anesthesia Type - general Block for post-op pain? Yes - via adductor canal block and popliteal block (consented for postop block as needed, refused preopblock) Anesthesia plan and risks discussed. Informed consent obtained from patient (cousin Nupur present for encounter). Specific risks discussed were bleeding, incomplete block, infection, nausea, nerve damage and vomiting. The preoperative history and physical which was performed within 30 days of this procedure, has been reviewed and the clinically appropriate elements of the physical examination have been repeated. There are no changes to the documented history and physical or, if so, such changes are documented inthis note PAT Note (Notes from 12/21/20 through 01/20/21) No notes of this type exist for this encounter. HILDA COLORADO DO vice president tax PGY-4 7:32 01/21/2021 documented in this encounter Miscellaneous Notes * Addendum Note - Reji Mcginnis MD - 01/21/2021 1216 EDT Addendum created 01/21/21 1216 by Reji Mcginnis MD Order list changed documented in this encounter Plan of Treatment Not on file documented as of this encounter Procedures Procedure Name Priority Date/Time Associated Diagnosis Comments ANESTHESIA INTUBATION Routine 01/21/2021 8:12 EDT documented in this encounter Results * Airway (01/21/2021 8:12 EDT) Narrative Hilda Colorado DO - 01/21/2021 8:12 EDT Hilda Colorado DO ? 01/21/2021 ??8:12 Airway Date/Time: 01/21/2021 7:55 Urgency: elective Airway not difficult General Information and Staff Patient location during procedure: OR Anesthesiologist: George Thompson MD Resident/FLY RAIL OPERATOR: Hilda Colorado DO Performed: resident/FLY RAIL OPERATOR/AA Indications and Patient Condition Indications for airway management: anesthesia Sedation level: GA Preoxygenated: yes Patient position: ramp Ventilation assessment: 1 - Easy Final Airway Details Final airway type: endotracheal airway Successful airway: ETT Cuffed: yes Successful intubation technique: direct laryngoscopy Endotracheal tube insertion site: oral Blade: Slim Blade size: #3 ETT size (mm): 7.0 Cormack-Lehane Classification: grade I - full view of glottis Placement verified by: chest auscultation and capnometry Measured from: gums ETT to gums (cm): 21 Number of attempts at approach: 1 George Thompson MD ANESTHESIA O RDERABLES documented in this encounter Visit Diagnoses Not on filedocumented in this encounter Administered Medications Inactive Administered Medications - up to 3 most recent administrations Medication Order MAR Action Action Date Dose Rate Site acetaminophen (OFIRMEV) IV solution PRN, Starting on Tue01/21/21 at 0846, Until Tue01/21/21 at 1102, Routine, Anesthesia Intraprocedure Given 01/21/2021 8:46 EDT 1,000 mg ceFAZolin (ANCEF) injection PRN, Starting on Tue01/21/21 at 0759, Until Tue01/21/21 at 1102, Routine, Anesthesia Intraprocedure Given 01/21/2021 7:59 EDT 2,000 mg dexmedeTOMIDine (PRECEDEX) injection PRN, Starting on Tue01/21/21 at 0847, Until Tue01/21/21 at 1102, Routine, Anesthesia Intraprocedure Given 01/21/2021 8:47 EDT 8 mcg fentaNYL citrate (PF) injection PRN, Starting on Tue01/21/21 at 0738, Until Tue01/21/21 at 1102, Routine, Anesthesia Intraprocedure Given 01/21/2021 10:23 EDT 25 mcg Given 01/21/2021 8:46 EDT 50 mcg Given 01/21/2021 7:38 EDT 50 mcg HYDROmorphone (DILAUDUD) 2 mg/mL injection PRN, Starting on Tue01/21/21 at 0935, Until Tue01/21/21 at 1102, Routine, Anesthesia Intraprocedure Given 01/21/2021 9:35 EDT 0.2 mg labetaloL (TRANDATE) injection PRN, Starting on Tue01/21/21 at 0856, Until Tue01/21/21 at 1102, Routine, Anesthesia Intraprocedure Given 01/21/2021 9:32 EDT 5 mg Given 01/21/2021 9:06 EDT 20 mg Given 01/21/2021 9:01 EDT 10 mg lactated ringers (LR) infusion at 25 mL/hr, intravenous, CONTINUOUS, Starting on Tue01/21/21 at 0645, Until Tue01/21/21 at 1517, Routine, Preprocedure New Bag 01/21/2021 10:32 EDT Continued by Anesthesia 01/21/2021 7:42 EDT New Bag 01/21/2021 6:52 EDT 25 mL/hr lidocaine (PF) 20 mg/mL (2 %) injection PRN, Starting on Tue01/21/21 at 0751, Until Tue01/21/21 at 1102, Routine, Anesthesia Intraprocedure Given 01/21/2021 7:51 EDT 80 mg midazolam (PF) (VERSED) injection PRN, Starting on Tue01/21/21 at 0738, Until Tue01/21/21 at 1102, Routine, Anesthesia Intraprocedure Given 01/21/2021 7:38 EDT 1 mg ondansetron (PF) (ZOFRAN) injection PRN, Starting on Tue01/21/21 at 1021, Until Tue01/21/21 at 1102, Routine, Anesthesia Intraprocedure Given 01/21/2021 10:21 EDT 4 mg phenylephrine HCl in 0.9% NaCl (NEO_SYNEPHRINE) 20 mg/250 mL (80 mcg/mL) infusion solution FA IP EQF CONTINUOUS PRN FOR ONE STEP MEDS, Starting on Tue01/21/21 at 0752, Until Tue01/21/21 at 1102, Routine, Anesthesia Intraprocedure Rate Change 01/21/2021 8:35 EDT 20 mcg/min 15 mL/hr Restarted 01/21/2021 8:26 EDT 40 mcg/min 30 mL/hr New Bag 01/21/2021 7:52 EDT 40 mcg/min 30 mL/hr phenylephrine HCl in 0.9% NaCl injection PRN, Starting on Tue01/21/21 at 0826, Until Tue01/21/21 at 1102, Routine, Anesthesia Intraprocedure Given 01/21/2021 9:56 EDT 100 mcg Given 01/21/2021 8:26 EDT 100 mcg propOFol (DIPRIVAN) 500 mg in 50 mL infusion FA IP EQF CONTINUOUS PRN FOR ONE STEP MEDS, Starting on Tue01/21/21 at 0811, Until Tue01/21/21 at 1102, Routine, Anesthesia Intraprocedure Rate Change 01/21/2021 8:31 EDT 30 mcg/kg/min 14.6 mL/hr Rate Change 01/21/2021 8:22 EDT 40 mcg/kg/min 19.5 mL/hr New Bag 01/21/2021 8:11 EDT 50 mcg/kg/min 24.3 mL/hr propOFol (DIPRIVAN) injection PRN, Starting on Tue01/21/21 at 0752, Until Tue01/21/21 at 1102, Routine, Anesthesia Intraprocedure Given 01/21/2021 10:23 EDT 20 mg Given 01/21/2021 8:11 EDT 20 mg Given 01/21/2021 7:52 EDT 120 mg rocuronium (ZEMURON) injection PRN, Starting on Tue01/21/21 at 0752, Until Tue01/21/21 at 1102, Routine, Anesthesia Intraprocedure Given 01/21/2021 10:18 EDT 5 mg Given 01/21/2021 9:07 EDT 20 mg Given 01/21/2021 8:44 EDT 10 mg sugammadex (BRIDION) injection PRN, Starting on Tue01/21/21 at 1049, Until Tue01/21/21 at 1102, Routine, Anesthesia Intraprocedure Given 01/21/2021 10:49 EDT 175 mg documented in this encounter Care Teams Nurse Case Management Relationship Specialty Start Date End Date Maryuri Evans MD [address] [place] [phone] PCP - General 01/11/21 documented as of this encounter
--- OUTSIDE RECORDS SUMMARY | 2024-05-31 17:51 | XMS_ITS | Encounter Summary ---
Author Organization [facility] Address [address] [place] [address] Care Team Providers Care Health Science Specialist Name Role Phone Maryuri Evans MD Primary Care Provider Reason for Visit * Reason Onset Date Comments Other 01/16/2021 Encounter Details Date Type Department Care Team (Late st Contact Info) Description 01/16/2021 Telephone [facility] Orthopedic Trauma - [address] [address] Mable Jones, SUNIL Other Social History Tobacco Use Types Packs/Day [...] Miscellaneous Notes * Telephone Encounter - Mable Jones, RN - 01/16/2021 1005 EDT Arlen called with a request of what im assuming is her Covid test info-or a place to send it. I called her back and left a vm for her to call the covid line at [phone] and they will be able to assistin a location. It looks like she is already scheduled for [facility]. She needs the test to be done 3 daysprior to sx. 1030 Arlen called again asking for me to call her back 1045 I called arlen back again and left a vm to call me with any questions she has documented in this encounter Plan of Treatment Not on file documented as of this encounter Visit Diagnoses Not on filedocumented in this encounter Care Teams Health Science Specialist Relationship Specialty Start Date End Date Maryuri Evans MD [address] [place] [address] PCP - General 01/11/21 documented as of this encounter
--- OUTSIDE RECORDS SUMMARY | 2024-05-31 17:51 | XMS_ITS | Encounter Summary ---
Author Organization [facility] Address [address] [place] [address] Care Team Providers Care Right Of Way Man Name Role Phone Maryuri Evans MD Primary Care Provider [phone] Encounter Details Date Type Department Care Team (Latest Contact Info) Description 01/11/2021 Travel Social History Tobacco Use Types Packs/Day [...] 22:49 EDT documented as of this encounter Plan of Treatment Not on file documented as of this encounter Visit Diagnoses Not on filedocumented in this encounter Care Teams Right Of Way Man Relationship Specialty Start Date End Date Maryuri Evans MD [address] [place] [address] PCP - General 01/11/21 documented as of this encounter
--- OUTSIDE RECORDS SUMMARY | 2024-05-31 17:51 | XMS_ITS | Encounter Summary ---
Author Organization [facility] [place] Address [address] [place] [address] Care Team Providers Care Clinical Document Improvement Educator Name Role Phone Maryuri Evans MD Primary Care Provider [phone] Reason for Referral * (Routine) - Receiving Office to Obtain Authorization Specialty Diagnoses / Procedures Referred By Keith yung Referred To Contact Stanley Youngblood MD [address] [facility] [address] [address] Referral ID Status Reason Start Date Expiration Date Visits Requested Visits Authorized [id number] Receiving Office to Obtain Authorization Specialty Services Required 01/21/2021 1 1 Comments See William Donald MD. The [facility] is located at [address] [place] [address]. Call [phone] if no appointment is scheduled. Reason for Visit * Auth/Cert Specialty Diagnoses / Procedures Referred By Keith yung Referred To Contact Diagnoses Closed fracture of left ankle with routine healing Procedures DC OPEN TX TRIMALLEOLAR ANKLE FX W/O FIX PST LIP William Donald MD [address] [place] [phone] Referral ID Status Reason Start Date Expiration Date Visits Re quested Visits Authorized [id number] 01/13/2021 1 1 Encounter Details Date Type Department Care Team (Latest Contact Info) Description 01/21/2021 5:48 EDT - 01/21/2021 13:11 EDT Hospital Encounter [facility] OR [address] [place], [place] [id number] William Donald MD [address] [place] [phone] Discharge Disposition: Home or Self Care Social [...] 5:46 EDT documented as of this encounter Last Filed [...] Body Mass Index 33.78 01/21/2021 0635 EDT documented in this encounter Functional Status Functional Status Response [...] 50 mg by mouth 2 times daily. oxyCODONE (ROXICODONE) 5 mg immediate release tablet Take 1 Tab by mouth every 6 hours as needed for Pain. Daily Max: 20 mg 15 Tab 01/21/2021 01/26/2021 documented as of this encounter Ordered Prescriptions Prescription Sig Dispensed Refills Start Date End Da te acetaminophen (TYLENOL) 500 mg tablet Take 2 Tabs by mouth every 6 hours as needed for Pain. 01/21/2021 oxyCODONE (ROXICODONE) 5 mg immediate release tablet Take 1 Tab by mouth every 6 hours as needed for Pain. Daily Max: 20 mg 15 Tab 01/21/2021 01/26/2021 documented in this encounter Discharge Disposition Disposition Code Departure Means Destination Home or Self Care Wheelchair Home documented in this encounter H&P Notes * Francine Ann PA-C - 01/21/2021 0736 EDT The preoperative history and physical which was performed within 30 days of this procedure has been reviewed and the clinically appropriate elements of the physical examination have been repeated. There are no changes to the documented history and physical or if so such changes are documented below Francine Ann PA-C 01/21/2021 7:36 Source Note - Curtis Yo MD - 01/12/2021 0:22 EDT DOS: 01/12/2021 Scribe Attestation: This documentation is recorded by Mary Humphrey acting as Scribe under the direction and presence of Curtis Yo MD. Curtis Yo MD: I personally performed the services recorded by the scribe in my presence. Iconfirm the scribe's documentation has been reviewed by me to accurately and completely record my work, treatment, procedures, and medical decision making. Chief Complaint Chief Complaint Patient presents with ??? Ankle Injury Transfer from [facility] for orthopedic consult of dislocation/fracture of left ankle. CSMTs intact in distal toes. VSS. HPI Jesenia Méndez is a pleasant 60 y.o. female who presents to the ED as a transfer from [facility] today with a chief complaint of an ankle injury. The patient has past medical history significant for type II DM, hypothyroid, and migraine. Patient presents to the ED with complaints of an ankle injury. The patient reports that around 16:30 this afternoon, she was walking around the corner of her cousin's camper when she slipped, fell, and landed her on her left ankle. She states that she had immediate pain and deformity and was not able to ambulate after the incident. According to the Orthopedics consult note, the patient was taken to [facility] where two reductions were attempted but they were unsuccessful, so she was sent to the ED with a splint for further management. The patient notes that they tried numbing her ankle twice, but was unsure of the numbing medication. Patient denies fever, chills, cough, shortness of breath, chest pain, or knee pain. History was provided by: Patient and medical record review. Patient's pertinent PMH, FH, and SH were reviewed and updated PRN. ROS Review of Systems Constitutional: Negative for chills and fever. Respiratory: Negative for cough and shortness of breath. Cardiovascular: Negative for chest pain. Musculoskeletal: Negative for knee pain. All other systems reviewed and are negative. The patient???s past medical, family, and social history was reviewed and updated as needed. Allergies Allergen Reactions ??? Erythromycin ??? Metformin Physical Exam Vital Signs Vitals Reassessment?: Yes Temp: 36.2 ??C (97.2 ??F) Temp src: Temporal Pulse: 81 Heart Rate: 82 BPM Resp: 16 SpO2: 100 % BP: (!) 159/126 BP MAP: 138 mm Hg BP Device: BP Machine BP Patient Position: Semi fowlers BP Cuff Location: Right arm O2 Device: Nasal cannula Physical Exam Vitals signs and nursing note reviewed. Constitutional: Appearance: She is well-developed. HENT: Head: Normocephalic and atraumatic. Mouth/Throat: Mouth: Mucous membranes are moist. Eyes: General: No scleral icterus. Extraocular Movements: Extraocular movements intact. Conjunctiva/sclera: Conjunctivae normal. Pupils: Pupils are equal, round, and reactive to light. Neck: Musculoskeletal: Normal range of motion and neck supple. Cardiovascular: Rate and Rhythm: Normal rate and regular rhythm. Heart sounds: Normal heart sounds. Comments: Barely palpable DP pulse. Pulmonary: Effort: Pulmonary effort is normal. Breath sounds: Normal breath sounds. Abdominal: General: There is no distension. Palpations: Abdomen is soft. Tenderness: There is no abdominal tenderness. There is no guarding. Musculoskeletal: Normal range of motion. Comments: Deformity and swelling of left ankle. Full ROM of knee at the left. Skin: General: Skin is warm and dry. Findings: No rash. Neurological: General: No focal deficit present. Mental Status: She is alert and oriented to person, place, and time. Mental status is at baseline. Psychiatric: Mood and Affect: Mood normal. Behavior: Behavior normal. Laboratory Results Labs Reviewed - No data to display Procedures Sedation Date/Time: 01/12/2021 0:41 Performed by: Curtis Yo MD Authorized by: Curtis Yo MD Consent: Consent obtained: Verbal Consent given by: Patient Independence protocol: Procedure explained and questions answered to patient or proxy's satisfaction: yes Required blood products, implants, devices, and special equipment available: yes Site/side marked: yes Immediately prior to procedure a time out was called: yes Patient identity confirmation method: Verbally with patient and arm band Indications: Procedure performed: Dislocation reduction Procedure necessitating sedation performed by: Physician performing sedation Intended level of sedation: Moderate (conscious sedation) Pre-sedation assessment: Neck mobility: normal Pre-sedation assessments completed and reviewed: airway patency, anesthesia/sedation history, cardiovascular function, hydration status, mental status, nausea/vomiting, pain level, respiratory function and temperature History of difficult intubation: no Immediate pre-procedure details: Reassessment: Patient reassessed immediately prior to procedure Reviewed: vital signs, relevant labs/tests and NPO status Verified: bag valve mask available, emergency equipment available, intubation equipment available, IV patency confirmed, oxygen available, reversal medications available and suction available Procedure details (see MAR for exact dosages): Sedation start time: 01/12/2021 0:00 Sedation: Propofol Intra-procedure monitoring: Blood pressure monitoring, rod placer, continuous pulse oximetry, continuous capnometry, frequent LOC assessments and frequent vital sign checks Sedation end time: 01/12/2021 0:20 Total sedation time (minutes): 20 Post-procedure details: Attendance: Constant attendance by certified staff until patient recovered Recovery: Patient returned to pre-procedure baseline Estimated blood loss (see I/O flowsheets): no Post-sedation assessments completed and reviewed: airway patency, cardiovascular function, hydration status, mental status, nausea/vomiting, pain level, respiratory function and temperature Patient is stable for discharge or admission: yes Patient tolerance: Tolerated well, no immediate complications Comments: I personally spent 20 minutes in continuous face to face attendance with the patient during the administration of the sedation and supervised the sedation services that were monitored by an independent trained observer who had no other duties during the procedure. Please see the procedure note entered by the orthopedics resident. I personally supervised the procedure performed and was physically present at the bedside for the dupont and critical portions of the procedure. ED Course A medical screening was performed. The patient is a 60 y.o. female with a history of type II DM, hypothyroid, and migraine who presents to the ED with an ankle injury. Physical exam was significant for deformity and swelling of left ankle, barely palpable DP pulse (pre-reduction), heart in RRR, clear lungs, and full ROM of knee at the left. Differential diagnosis includes but is not limited to left ankle fracture/dislocation. 0040: Patient had a dislocation reduction and was placed in a sling. Her DP pulse improved post-reduction. At this time, the patient was stable for discharge home. She should keep her left ankle in the splint and use crutches to not bear weight on it. She should follow-up with [facility]. Prior to discharge usual and customary precautions were reviewed with the patient and/or family including follow-up instructions and reasons to return to the Emergency Department if condition worsens, does not improve as expected, or other new concerns arise. Final diagnoses: Closed fracture dislocation of left ankle, initial encounter MDM MDM Number of Diagnoses or Management Options Closed fracture dislocation of left ankle, initial encounter Diagnosis management comments: 4 Procedural Sedation Fx reduction and splint Amount and/or Complexity of Data Reviewed Tests in the radiology section of CPT??: reviewed and ordered Discussion of test results with the performing providers: yes Decide to obtain previous medical records or to obtain history from someone other than the patient:yes Review and summarize past medical records: yes Discuss the patient with other providers: yes Independent visualization of images, tracings, or specimens: yes Patient Progress Patient progress: improved Disposition Discharged The patient's pain was managed to an adequate level weighing risk vs. Benefit of further medications. At the end of my care of this patient, the patient's pain was 1 on a zero to ten scale. Any further pain treatment will be at the discretion of the provider following up with the patient based on their clinical assessment. The patient's condition at the end of my care: Stable * Francine Ann PA-C - 01/21/2021 0735 EDT The preoperative history and physical which was performed within 30 days of this procedure has been reviewed and the clinically appropriate elements of the physical examination have been repeated. There are no changes to the documented history and physical or if so such changes are documented below Francine Ann PA-C 01/21/2021 7:35 Source Note - William Donald MD - 01/20/2021 12:52 EDT documented in this encounter Nursing Notes * Jessenia Barber RN - 01/21/2021 0628 EDT Preop Covid DOS screening questionnaire Please document by exception (only check those that apply). Have you had any of the following symptoms recently?NO Yes Chronic ? Cough Shortness of breath or difficulty breathing Fever Chills Fatigue Muscle or body aches Severe Headache New loss of taste or smell Sore throat Congestion or runny nose Rash Nausea, vomiting, or diarrhea (rare in adults. More common in children) Were you covid tested?YES When: 01/18/21 Results: NEG If yes, have you self-isolated/quarantined since your test?YES See admission vital signs documentation for admission temperature. documented in this encounter OR Notes * OR Surgeon - William Donald MD - 01/21/2021 0548 EDT OPERATIVE REPORT SERVICE DATE: 01/21/2021 INDICATIONS: Ms Méndez is a 60-year-old woman who sustained a left trimalleolar-equivalent ankle fracture that was essentially a tibial pilon variant as this involved fractures of the weightbearingsurface of the joint. There was significant poor bone and comminution. She has a history of diabetes type 2; most recent A1c was around 8 prior to her visit with me. She was admitted briefly to our emergency room as a transfer from [place] with an injury after she slipped and fell on her left ankle,walking around her cousin's camper. Date of injury was January 11. She was splinted. I saw her in the office. She had a medical workup. Her A1c was improved. She had medical clearance. NARRATIVE: She was taken to the operating room on January 21, where the patient's surgical checklist was signed by me. She was taken back to the operating room, placed under anesthesia, and then a surgical timeout ensued, where we confirmed the plan, that antibiotics had been given, and then elevated the tourniquet. A lateral incision was performed over the distal fibula. The incision was carried down to the subcutaneous tissues, which were incised in line with the skin incision. Careful dissectionwas performed down to the fibula. This was very comminuted, particularly anteriorly, and then the comminution extended to the anterior portion of the tibia. Essentially, the Chaput-Tillaux fracture fragment was displaced anteriorly, as was comminution of the anterior fibula at the area of the [place]. Her bone was quite soft, and this required essentially posterior plating with a [place] and traction to use the plate as a washer. Eventually, a near anatomic reduction was obtained with screws placed in the posterior plate as an antiglide plate, followed by Synthes locking plate which was contoured to fit the distal fibula. The [place] area was repaired with sutures. The tibial fragmentanteriorly was reduced and fixed with a single 2.7 mm lag screw. This was essentially a pilon variant fracture, somewhere between a fracture of the weightbearing surface of the tibia and a complex trimalleolar ankle fracture. Copious irrigation was performed, and then closure consisted of interrupted 1 Vicryl sutures for the deep tissues, 2-0 Monocryl sutures for the subcutaneous tissues, and a running 3-0 Monocryl suture for skin, with some nylons. Sterile dressing and splint was then applied. PREOPERATIVE DIAGNOSIS: Complex fracture of left ankle, a cross between a trimalleolus-equivalent type fracture and a tibial pilon variant. POSTOPERATIVE DIAGNOSIS: PROCEDURE: Open reduction and internal fixation of tibia and fibula pilon. SURGEON: William Donald III, MD AIR PUMPER: Stanley Youngblood MD ANESTHESIA: This was a very complex case. It was very difficult related to osteoporotic bone and required twicethe effort to fix than normal ankle. I performed the procedure. ESTIMATED BLOOD LOSS, FLUIDS, AND TOURNIQUET TIME: As per the resident note in the chart. Unless otherwise noted, there were no complications, no blood loss, no cultures obtained, no specimens removed, and no drains retained. William Donald III, MD / Confirmation: [id number] Dictation ID: [id number] cc: documented in this encounter Miscellaneous Notes * Brief Op Note - Stanley Youngblood MD - 01/21/2021 0828 EDT Date of Surgery: 01/21/2021 Surgeon: Dr. William Donald MD Assistants: Claribel Youngblood MD, Jessica Medina MD, Shorty Ann PA-C Pre-Op Diagnosis: left trimalleolar ankle fracture Post-Op Diagnosis: same Procedure(s): left ankle ORIF Findings: Comminuted fracture as seen on imaging Anesthesia Type: General Tourniquet Time: 0 minutes Estimated Blood Loss: <50 cc Fluids: see anesthesia records Urine Output: NR Closure: monocryl + dermabond Disposition and Condition: PACU in Good condition per anesthesia. Plan: NWB, AAT LLE Keep splint clean, dry, and intact Multimodal pain control DVT PPX: ambulate and scds Regular Diet Dispo: home pending PACU recovery Future Appointments Date Time Provider Department Center 02/03/2021 14:00 William Donald MD [facility] VANDA MEDINA MD 01/21/2021 8:28 documented in this encounter Plan of Treatment Scheduled Referrals Name Type Priority Associated Diagnoses Order Schedule PROVIDER FOLLOW-UP INSTRUCTIONS Outpatient Referral Routine Ordered: 01/21/2021 documented as of this encounter Procedures Procedure Name Priority Date/Time Associated Diagnosis Comments POCT GLUCOSE, INTERFACED Routine 01/21/2021 13:00 EDT POCT GLUCOSE, INTERFACED Routine 01/21/2021 12:21 EDT POCT GLUCOSE, INTERFACED Routine 01/21/2021 11:48 EDT POCT GLUCOSE, INTERFACED Routine 01/21/2021 11:05 EDT FL C-ARM 0-1 HOUR Routine 01/21/2021 10: 25 EDT XR ANKLE LEFT 3 OR MORE VIEWS Routine 01/21/2021 10:25 EDT POCT GLUCOSE, INTERFACED Routine 01/21/2021 9:03 EDT OPEN TREATMENT, FRACTURE, ANKLE, TRIMALLEOLAR, WITHOUT POSTERIOR LIP FIXATION 01/21/2021 7:32 EDT Closed fracture of left ankle with routine healing Special Needs Lucio flattop; Small fragment locking set POC US ANESTHESIA NERVE BLOCK POPLITEAL FOSSA Routine 01/21/2021 6:56 EDT POCT GLUCOSE, INTERFACED Routine 01/21/2021 6:49 EDT documented in this encounter Results * (ABNORMAL) POCT GLUCOSE, INTERFACED (01/21/2021 13:00 EDT) Glucose, POC 259(H) 70 - 100 mg/dL 01/21/2021 13:05 EDT [facility] HN LAB POC COMMENT (GLUCOSE) Test Performed by Nursing Services 01/21/2021 13:05 EDT [facility] Blood CAPILLARY BLOOD / Unknown 01/21/2021 13:00 EDT 01/21/2021 13:05 EDT William Donald MD POINT OF CARE TE ORDERABLES [facility] [address] [place] [address] * (ABNORMAL) POCT GLUCOSE, INTERFACED (01/21/2021 12:21 EDT) Glucose, POC 274(H) 70 - 100 mg/dL 01/21/2021 12:26 EDT [facility] HN LAB POC COMMENT (GLUCOSE) Test Performed by Nursing Services 01/21/2021 12:26 EDT [facility] Blood CAPILLARY BLOOD / Unknown 01/21/2021 12:21 EDT 01/21/2021 12:26 EDT William Donald MD POINT OF CARE TE ST ORDERABLES Performing Organization Address City/[facility]/ZIP Co de Phone Number [facility] [address] [place] [address] * (ABNORMAL) POCT GLUCOSE, INTERFACED (01/21/2021 11:48 EDT) Glucose, POC 278(H) 70 - 100 mg/dL 01/21/2021 11:50 EDT [facility] HN LAB POC COMMENT (GLUCOSE) Test Performed by Nursing Services 01/21/2021 11:50 EDT [facility] Blood CAPILLARY BLOOD / Unknown 01/21/2021 11:48 EDT 01/21/2021 11:50 EDT William Donald MD POINT OF CARE TE ST ORDERABLES Performing Organization Address [facility] Co de Phone Number [facility] [address] [place] [address] * (ABNORMAL) POCT GLUCOSE, INTERFACED (01/21/2021 11:05 EDT) Glucose, POC 206(H) 70 - 100 mg/dL 01/21/2021 11:07 EDT [facility] HN LAB POC COMMENT (GLUCOSE) Test Performed by Nursing Services 01/21/2021 11:07 EDT [facility] Blood CAPILLARY BLOOD / Unknown 01/21/2021 11:05 EDT 01/21/2021 11:07 EDT William Donald MD POINT OF CARE TE ST ORDERABLES Performing Organization Address City/[facility] Co de Phone Number [facility] [address] [place] [address] * FL C-ARM 0-1 HOUR (01/21/2021 10:25 EDT) Narrative 01/21/2021 10:25 EDT This is a non-reportable exam. William Donald MD IMG OTHER IMAGIN G ORDERABLES * XR ANKLE LEFT 3 OR MORE VIEWS (01/21/2021 10:25 EDT) Anatomical Region Laterality Modality Lower Extremities, Ankle Left Radio F luoroscopy 01/21/2021 10:5 8 EDT Impressions 01/21/2021 10:58 EDT Findings/impression: Interval internal fixation with plates that traverses the distal lateral malleolus, syndesmotic screws, and a distal tibial metaphysis screw. Satisfactory alignment, hardware is intact. No unexpected radiopaque foreign bodies. I have personally reviewed the images and the above interpretation and agree with the findings. Narrative 01/21/2021 10:58 EDT XR ANKLE LEFT 3 OR MORE VIEWS 01/21/2021 7:30 AM Clinical History/Comments: Left ankle fx S/P ORIF ??Done in OR Comparison: Radiographs of the left ankle 11/11/2020 - 11/13/2020 Technique: Intraoperative fluoroscopic AP, oblique, and lateral views of the left ankle. ?? Procedure Note Shubham Mercado MD - 01/21/2021 XR ANKLE LEFT 3 OR MORE VIEWS 01/21/2021 7:30 AM Clinical History/Comments: Left ankle fx S/P ORIF Done in OR Comparison: Radiographs of the left ankle 11/11/2020 - 11/13/2020 Technique: Intraoperative fluoroscopic AP, oblique, and lateral views of the leftankle. IMPRESSION Findings/impression: Interval internal fixation with plates that traverses the distal lateralmalleolus, syndesmotic screws, and a distal tibial metaphysis screw.Satisfactory alignment, hardware is intact. No unexpected radiopaqueforeign bodies. I have personally reviewed the images and the above interpretation andagree with the findings. William Donald MD IMG DIAGNOSTIC I MAGING ORDERABLES * (ABNORMAL) POCT GLUCOSE, INTERFACED (01/21/2021 9:03 EDT) Glucose, POC 194(H) 70 - 100 mg/dL 01/21/2021 11:08 EDT [facility] HN LAB POC COMMENT (GLUCOSE) Test Performed by Nursing Services 01/21/2021 11:08 EDT [facility] Blood CAPILLARY BLOOD / Unknown 01/21/2021 9:03 EDT 01/21/2021 11:08 EDT William Donald MD POINT OF CARE TE ST ORDERABLES Performing Organization Address [facility] Co de Phone Number [facility] [address] [place] [address] * POC US ANESTHESIA NERVE BLOCK POPLITEAL FOSSA (01/21/2021 6:56 EDT) Narrative 01/21/2021 6:56 EDT This is a non-reportable exam. Austin Otero MD IMG US POC ORDERA BLES * (ABNORMAL) POCT GLUCOSE, INTERFACED (01/21/2021 6:49 EDT) Glucose, POC 237(H) 70 - 100 mg/dL 01/21/2021 6:56 EDT [facility] HN LAB POC COMMENT (GLUCOSE) Test Performed by Nursing Services 01/21/2021 6:56 EDT [facility] Blood CAPILLARY BLOOD / Unknown 01/21/2021 6:49 EDT 01/21/2021 6:56 EDT William Donald MD POINT OF CARE TE ST ORDERABLES Performing Organization Address [facility] de Phone Number [facility] [address] [place] [address] documented in this encounter Visit Diagnoses Diagnosis Closed fracture of left ankle with routine healing- Primary documented in this encounter Admitting Diagnoses Diagnosis Closed fracture of left ankle with routine healing documented in this encounter Administered Medications Inactive Administered Medications - up to 3 most recent administrations Medication Order MAR Action Action Date Dose Rate Site atropine 0.1 mg/mL syringe 0.5 mg 0.5 mg, intravenous, PRN, Starting on Tue01/21/21 at 0814, Until Tue01/21/21 at 1517, Symptomatic HR < 50, Routine, Recovery (only) dextrose 50 % solution 12.5 g 12.5 g (25 mL), intravenous, PRN, Starting on Tue01/21/21 at 1213, Until Tue01/21/21 at 151, Low Blood Sugar, Routine, Recovery (only) fentaNYL citrate (PF) injection 25-50 mcg 25-50 mcg, intravenous, EVERY 5 MIN PRN, Starting on Tue01/21/21 at 0814, Until Tue01/21/21 at 151, Pain, Routine, Recovery (only) glucagon injection 1 mg 1 mg, intramuscular, PRN, Starting on Tue01/21/21 at 1213, Until Tue01/21/21 at 151, Other, Low blood sugar, Routine, Recovery (only) HYDROmorphone (DILAUDID) tablet 2-4 mg 2-4 mg, oral, EVERY 30 MINUTES PRN, 2 doses, Starting on Tue01/21/21 at 0814, Until Tue01/21/21 at 1516, Pain, Routine, Recovery (only) HYDROmorphone (PF) (DILAUDID) 0.5 mg/0.5 mL syringe 0.3-0.5 mg 0.3-0.5 mg, intravenous, EVERY 10 MINUTES PRN, Starting on Tue01/21/21 at 0814, Until Tue01/21/21 at 151, Pain, Routine, Recovery (only) insulin regular (NOVOLIN R) injection 5 Units 5 Units, subcutaneous, NOW X1, 1 dose, On Tue01/21/21 at 1130 Given 01/21/2021 11:19 EDT 5 Units insulin regular (NOVOLIN R) injection subcutaneous, 3 TIMES DAILY WITH MEALS, First dose on Tue01/21/21 at 1245, Until Discontinued, Recovery (only) lactated ringers (LR) infusion at 25 mL/hr, intravenous, CONTINUOUS, Starting on Tue01/21/21 at 0645, Until Tue01/21/21 at 1517, Routine, Preprocedure New Bag 01/21/2021 10:32 EDT Continued by Anesthesia 01/21/2021 7:42 EDT New Bag 01/21/2021 6:52 EDT 25 mL/hr lactated ringers (LR) infusion at 75 mL/hr, intravenous, PACU CONTINUOUS, Starting on Tue01/21/21 at 0830, Until Tue01/21/21 at 1517, Routine, Recovery (only) Rate Documented 01/21/2021 11:13 EDT 75 mL /hr naloxone (NARCAN) injection 0.2 mg 0.2 mg, intravenous, PRN, Starting on Tue01/21/21 at 0814, Until Tue01/21/21 at 1517, Opioid Reversal, Routine, Recovery (only) ondansetron (PF) (ZOFRAN) injection 4 mg 4 mg, intravenous, PRN, 1 dose, Starting on Tue01/21/21 at 0814, Until Tue01/21/21 at 1517, Nausea, Vomiting, Routine, Recovery (only) documented in this encounter Discontinued Medications Medication Sig Discontinue Reason Start Date End Da te HYDROcodone-acetaminoph en (NORCO) 5-325 mg tablet Take 1 Tab by mouth at bedtime. Daily Max: 1 Tab Stop Taking at Discharge 01/13/2021 01/21/2021 documented as of this encounter Active and Recently Administered Medications Times are shown in EDT. Scheduled Medication Order 01/19/2021 01/20/2021 01/21/2021 insulin regular (NOVOLIN R) injection 5 Units (COMPLETED) 5 Units, subcutaneous, NOW X1, 1 dose, On Tue01/21/21 at 1130 1119 (Given - Provid er: Clementina Sky RN) insulin regular (NOVOLIN R) injection subcutaneous, 3 TIMES DAILY WITH MEALS, First dose on Tue01/21/21 at 1245, Until Discontinued, Recovery (only) 1245 (Canceled Entry - Provider: Batch Job User Admin - Comment: Automatically canceled at discontinue of medication order) Continuous Medication Order 01/19/2021 01/20/2021 01/21/2021 lactated ringers (LR) infusion at 25 mL/hr, intravenous, CONTINUOUS, Starting on Tue01/21/21 at 0645, Until Tue01/21/21 at 1517, Routine, Preprocedure 0652 (New Bag - Prov ider: Jessenia Barber RN)0742 (Continued by Anesthesia - Provider: Edson Colorado DO)1032 (New Bag - Provider: Edson Colorado DO)1100 (Completed - Provider: Edson Colorado DO) lactated ringers (LR) infusion at 75 mL/hr, intravenous, PACU CONTINUOUS, Starting on Tue01/21/21 at 0830, Until Tue01/21/21 at 151, Routine, Recovery (only) 1113 (Rate Documente d - Provider: Clementina Sky RN) PRN Medication Order 01/19/2021 01/20/2021 01/21/2021 atropine 0.1 mg/mL syringe 0.5 mg 0.5 mg, intravenous, PRN, Starting on Tue01/21/21 at 0814, Until Tue01/21/21 at 151, Symptomatic HR < 50, Routine, Recovery (only) dextrose 50 % solution 12.5 g 12.5 g (25 mL), intravenous, PRN, Starting on Tue01/21/21 at 1213, Until Tue01/21/21 at 151, Low Blood Sugar, Routine, Recovery (only) fentaNYL citrate (PF) injection 25-50 mcg 25-50 mcg, intravenous, EVERY 5 MIN PRN, Starting on Tue01/21/21 at 0814, Until Tue01/21/21 at 151, Pain, Routine, Recovery (only) glucagon injection 1 mg 1 mg, intramuscular, PRN, Starting on Tue01/21/21 at 1213, Until Tue01/21/21 at 151, Other, Low blood sugar, Routine, Recovery (only) HYDROmorphone (DILAUDID) tablet 2-4 mg 2-4 mg, oral, EVERY 30 MINUTES PRN, 2 doses, Starting on Tue01/21/21 at 0814, Until Tue01/21/21 at 151, Pain, Routine, Recovery (only) HYDROmorphone (PF) (DILAUDID) 0.5 mg/0.5 mL syringe 0.3-0.5 mg 0.3-0.5 mg, intravenous, EVERY 10 MINUTES PRN, Starting on Tue01/21/21 at 0814, Until Tue01/21/21 at 151, Pain, Routine, Recovery (only) naloxone (NARCAN) injection 0.2 mg 0.2 mg, intravenous, PRN, Starting on Tue01/21/21 at 0814, Until Tue01/21/21 at 151, Opioid Reversal, Routine, Recovery (only) ondansetron (PF) (ZOFRAN) injection 4 mg 4 mg, intravenous, PRN, 1 dose, Starting on Tue01/21/21 at 0814, Until Tue01/21/21 at 1517, Nausea, Vomiting, Routine, Recovery (only) documented in this encounter Orders Medications Ordered That Eugene ht Not Have Been Administered Count Last Ordered Date First Ordered Date atropine 0.1 mg/mL syringe 0.5 mg 1 ceFAZolin (ANCEF) syringe 2 g 1 01/21/2021 dextrose 50 % solution 12.5 g 2 01/21/2021 fentaNYL citrate (PF) injection 25-50 mcg 1 01/21/2021 glucagon injection 1 mg 2 01/21/2021 HYDROmorphone (DILAUDID) tablet 2-4 mg 1 HYDROmorphone (PF) (DILAUDID ) 0.5 mg/0.5 mL syringe 0.3-0.5 mg 1 01/21/2021 insulin regular (NOVOLIN R) injection 1 09/2020 lidocaine (PF) 10 mg/mL (1 % ) injection 2 mg 1 01/21/2021 naloxone (NARCAN) injection 0.2 mg 1 2020 ondansetron (PF) (ZOFRAN) injection 4 mg 1 01/21/2021 Diet Count Last Ordered Date First Orde red Date DISCHARGE DIET 1 01/21/2021 Nursing Count Last Ordered Date First Orde red Date ACTIVITY INSTRUCTIONS 1 01/21/2021 BATHING INSTRUCTIONS 1 01/21/2021 WOUND CARE INSTRUCTIONS 1 01/21/2021 Discharge Count Last Ordered Date First Orde red Date DISCHARGE PATIENT 1 01/21/2021 Legal Count Last Ordered Date First Orde red Date MISCELLANEOUS DISCHARGE INSTRUCTIONS 1 09/2020 documented in this encounter Care Teams Clinical Document Improvement Educator Relationship Specialty Start Date End Date Maryuri Evans MD [address] [place] [address] PCP - General 01/11/21 documented as of this encounter
--- OUTSIDE RECORDS SUMMARY | 2024-05-31 17:51 | XMS_ITS | Encounter Summary ---
Author Organization [facility] Address [address] [place] [address] Care Team Providers Care Labor/Excavator Name Role Phone Maryuri Evans MD Primary Care Provider [phone] Encounter Details Date Type Department Care Team (Late st Contact Info) Description 01/16/2021 Orders Only [facility] Orthopedic Trauma - [address] [address] Mable Jones RN Closed fracture of left ankle with routine [...] as of this encounter Progress Notes * Mable Jones RN - 01/16/2021 1141 EDT Will fax order to [facility] at [phone] documented in this encounter Plan of Treatment Not on file documented as of this encounter Visit Diagnoses Diagnosis Closed fracture of left ankle with routine healing- Primary documented in this encounter Care Teams Labor/Excavator Relationship Specialty Start Date End Date Maryuri Evans MD [address] [place] [address] PCP - General 01/11/21 documented as of this encounter
--- OUTSIDE RECORDS SUMMARY | 2024-05-31 17:51 | XMS_ITS | Encounter Summary ---
Author Organization [facility] Address [address] [place] [id number] Care Team Providers Care Oyster Sorter Name Role Phone Maryuri Evans MD Primary Care Provider [phone] Reason for Visit * Auth/Cert Specialty Diagnoses / Procedures Referred By Keith t Referred To Contact Diagnoses Closed fracture of left ankle with routine healing Procedures MD OPEN TX TRIMALLEOLAR ANKLE FX W/O FIX PST LIP William Donald MD [address] [place] [phone] Referral ID Status Reason Start Date Expiration Date Visits Re quested Visits Authorized [id number] 01/13/2021 1 1 Encounter Details Date Type Department Care Team (Late st Contact Info) Description 01/21/2021 7:25 EDT - 01/21/2021 10:25 EDT Surgery [facility] OR [address] [place] [id number] William Donald MD [address] [place] [phone] open reduction internal fixation of left ankle trimalleolar equivalent fracture [06229 (CPT??)] Surgery Details Date/Time Status Location OR Service Patient Class Case Class Case Type Trauma Case? 01/21/21 0725 Posted [facility] OR [facility] G - Less than 48 hours Panel 1 Procedure LRB Anes Op Region Wound Class Comments open reduction internal fixa tion of left ankle trimalleolar equivalent fracture Left General Ankle Class I/ Clean 120 minutes Surgeon Surgeon Role Service Panel William Donald MD Primary Orthopedics 1 Stanley MD Resident - Assisting Orthopedics 1 Dionte Ruiz MD Resident - Assisting Orthopedics 1 Francine Ann PA-C Assisting Orthopedics 1 Special Needs Austin flattop; Small fragment locking set documented in this encounter Social History Tobacco [...] Sign Reading Time Taken Comments Blood Pressure 144/62 01/21/2021 0635 EDT Pulse 97 01/21/2021 0635 EDT Temperature - - Respiratory Rate 18 01/21/2021 0635 EDT Oxygen Saturation 96% 01/21/2021 0635 EDT Inhaled Oxygen Concentration - - Weight [...] presents with ??? Ankle Injury Transfer from [facility] for orthopedic consult of dislocation/fracture of left ankle. CSMTs intact in distal toes. VSS. HPI Jesenia Méndez is a pleasant 60 y.o. female who presents to the ED as a transfer from [facility] today with a chief complaint of [...] consult note, the patient was taken to [facility] where two reductions were attempted but [...] Consent obtained: Verbal Consent given by: Patient [place] protocol: Procedure explained and questions answered to [...] Sedation: Propofol Intra-procedure monitoring: Blood pressure monitoring, air sampling and monitoring, continuous pulse oximetry, continuous capnometry, frequent LOC [...] weight on it. She should follow-up with [facility]. Prior to [...] our emergency room as a transfer from [place] with an injury after she slipped and [...] fibula pilon. SURGEON: William Donald III, MD GLASS BLOWING INSTRUCTOR: Stanley Youngblood MD ANESTHESIA: This was a [...] retained. William Donald III, MD / Confirmation: [id number] Dictation ID: [id number] cc: documented in this encounter Miscellaneous Notes [...] 70 - 100 mg/dL 01/21/2021 13:05 EDT [facility] HN LAB POC COMMENT (GLUCOSE) Test Performed by Nursing Services 01/21/2021 13:05 EDT [facility] Blood CAPILLARY BLOOD / Unknown 01/21/2021 13:00 EDT 01/21/2021 13:05 EDT William Donald MD POINT OF CARE [facility] ORDERABLES [facility] [address] [place] [address] * (ABNORMAL) POCT GLUCOSE, INTERFACED (01/21/2021 12:21 EDT) Glucose, POC 274(H) 70 - 100 mg/dL 01/21/2021 12:26 EDT [facility] HN LAB POC COMMENT (GLUCOSE) Test Performed by Nursing Services 01/21/2021 12:26 EDT [facility] Blood CAPILLARY BLOOD / Unknown 01/21/2021 12:21 EDT 01/21/2021 12:26 EDT William Donald MD POINT OF CARE TE ST ORDERABLES Performing Organization Address City/[facility]/ZIP Co de Phone Number [facility] [address] [place] [address] * (ABNORMAL) POCT GLUCOSE, INTERFACED (01/21/2021 11:48 EDT) Glucose, POC 278(H) 70 - 100 mg/dL 01/21/2021 11:50 EDT [facility] HN LAB POC COMMENT (GLUCOSE) Test Performed by Nursing Services 01/21/2021 11:50 EDT [facility] Blood CAPILLARY BLOOD / Unknown 01/21/2021 11:48 EDT 01/21/2021 11:50 EDT William Donald MD POINT OF CARE TE ST ORDERABLES Performing Organization Address City/[facility]/ZIP Co de Phone Number [facility] [address] [place] [address] * (ABNORMAL) POCT GLUCOSE, INTERFACED (01/21/2021 11:05 EDT) Glucose, POC 206(H) 70 - 100 mg/dL 01/21/2021 11:07 EDT [facility] HN LAB POC COMMENT (GLUCOSE) Test Performed by Nursing Services 01/21/2021 11:07 EDT [facility] Blood CAPILLARY BLOOD / Unknown 01/21/2021 11:05 EDT 01/21/2021 11:07 EDT William Donald MD POINT OF CARE TE ST ORDERABLES Performing Organization Address City/[facility]/ZIP Co de Phone Number [facility] [address] [place] [address] * [place] C-ARM 0-1 HOUR (01/21/2021 10:25 [...] 70 - 100 mg/dL 01/21/2021 11:08 EDT [facility] HN LAB POC COMMENT (GLUCOSE) Test Performed by Nursing Services 01/21/2021 11:08 EDT [facility] Blood CAPILLARY BLOOD / Unknown 01/21/2021 9:03 EDT 01/21/2021 11:08 EDT William Donald MD POINT OF CARE TE ST ORDERABLES Performing Organization Address [facility] Co de Phone Number [facility] [address] [place] [address] * POC US ANESTHESIA NERVE BLOCK POPLITEAL FOSSA (01/21/2021 6:56 EDT) Narrative 01/21/2021 6:56 EDT This is a non-reportable exam. Austin Otero MD IMG US POC ORDERA BLES * (ABNORMAL) POCT GLUCOSE, INTERFACED (01/21/2021 6:49 EDT) Glucose, POC 237(H) 70 - 100 mg/dL 01/21/2021 6:56 EDT [facility] HN LAB POC COMMENT (GLUCOSE) Test Performed by Nursing Services 01/21/2021 6:56 EDT [facility] Blood CAPILLARY BLOOD / Unknown 01/21/2021 6:49 EDT 01/21/2021 6:56 EDT William Donald MD POINT OF CARE TE ST ORDERABLES Performing Organization Address [facility] Co de Phone Number [facility] [address] [place] [address] documented in this encounter Visit Diagnoses Diagnosis [...] on Tue01/21/21 at 1213, Until Tue01/21/21 at 1517, Low Blood Sugar, Routine, Recovery (only) fentaNYL citrate (PF) injection 25-50 mcg 25-50 mcg, intravenous, EVERY 5 MIN PRN, Starting on Tue01/21/21 at 0814, Until Tue01/21/21 at 1517, Pain, Routine, Recovery (only) glucagon injection 1 mg 1 mg, intramuscular, PRN, Starting on Tue01/21/21 at 1213, Until Tue01/21/21 at 1517, Other, Low blood sugar, Routine, Recovery (only) HYDROmorphone (DILAUDID) tablet 2-4 mg 2-4 mg, oral, EVERY 30 MINUTES PRN, 2 doses, Starting on Tue01/21/21 at 0814, Until Tue01/21/21 at 1517, Pain, Routine, Recovery (only) HYDROmorphone (PF) (DILAUDID) 0.5 mg/0.5 mL syringe 0.3-0.5 mg 0.3-0.5 mg, intravenous, EVERY 10 MINUTES PRN, Starting on Tue01/21/21 at 0814, Until Tue01/21/21 at 1517, Pain, Routine, Recovery (only) insulin regular (NOVOLIN [...] 09/2020 documented in this encounter Care Teams Oyster Sorter Relationship Specialty Start Date End Date Maryuri Evans MD [address] [place] [address] PCP - General 01/11/21 documented as of this encounter
--- OUTSIDE RECORDS SUMMARY | 2024-05-31 17:51 | XMS_ITS | Encounter Summary ---
Author Organization [facility] Address [address] [place] [address] Care Team Providers Care Supervisor Carbon [employer] Name Role Phone Maryuri Evans MD Primary Care Provider Reason for Visit * Reason Comments Ankle Injury Transfer from [place] ED for orthopedic consult of dislocation/fracture of left ankle. CSMTs intact in distal toes. VSS. Encounter Details Date Type Department Care Team (Late st Contact Info) Description 01/11/2021 22:39 EDT - 01/12/2021 1:25 EDT Emergency [facility] Emergency Department - [address] [address] Curtis Yo MD [address] [place] [address], [address] [place] [address] Closed fracture dislocation of left ankle, initial encounter (Primary Dx) Discharge Disposition: Home or Self Care Social [...] 22:49 EDT documented as of this encounter Last Filed Vital Signs Vital Sign Reading Time Taken Comments Blood Pressure 126/93 01/12/2021 0104 EDT Pulse 81 01/11/2021 2300 EDT Temperature 36.2 ??C (97.2 ??F) 01/11/20212246 EDT Respiratory Rate 10 01/12/2021 010 EDT Oxygen Saturation 97% 01/12/2021103 EDT Inhaled Oxygen Concentration - - Weight 81.6 kg (180 lb) 01/11/20212246 EDT Height 154.9 cm (5' 1) 01/11/20212246 EDT Body Mass Index 34.01 01/11/20212246 EDT documented in this encounter Discharge Instructions * Discharge Instructions* Curtis Yo MD - 01/12/2021 0:57 EDT Keep left ankle in splint (do not get the splint wet). No weight bearing. Use crutches. May use over the counter ibuprofen 600 mg and acetaminophen 1,000 mg. Take each one every six hoursand alternate so you are taking one and then the other every three hours. Follow up with [facility]. Return to the Emergency Department (ED) if your condition worsens, does not improve as expected, orother new concerns arise. Specifically return if you have new or uncontrolled pain, high fever, difficulty breathing, vomiting and unable to keep down fluids or medications, or any other concerns. * Attachments The following attachments cannot be sent through Care Everywhere. * Ankle Fracture (Panamanian) documented in this encounter Medications at Time of Discharge Medication Sig Dispensed Refills Start Date End Date aspirin chewable 81 mg tablet Take 81 [...] mouth at bedtime. naproxen (NAPROSYN) 375 mg tabletIndications:headache disorder Take 375 mg by mouth 2 times daily. sertraline (ZOLOFT) 50 mg tablet Take 200 mg by mouth daily. topiramate (TOPAMAX) 25 mg tabletIndications:migraine prevention Take 50 mg by mouth 2 times daily. documented as of this encounter Discharge Disposition Disposition Code Departure Means Destination Comment s Home or Self Longterm With cousin documented in this encounter Consult Notes * Austin Sifuentes MD - 01/11/2021 3280 EDT Orthopaedics Consult ED consult requested by Sanaz VASQUEZ for a left ankle fracture dislocation HPI: Jesenia Méndez is a 60 y.o. female w/ a pmhx of DM2 (most recent A1C around 8), MDD, and migraines who presents to the ED as a transfer from [facility] with a left ankle fracture dislocation. Patient reports that around 430pm this afternoon she was walking around the corner of her cousin's camper when she slipped and fell and landed on her left ankle. She had immediate pain and deformity and was unable to ambulate afterwards. She was taken to [facility] where two reductions were attempted but unsuccessful so she was sent her for further management. She states that they tried numbing her ankle twice. Unsure of the numbing medication and gave her some dilaudid. No open wounds. No other injuries or complaints. She was splinted and then sent to [facility]. PCP: Maryuri Evans PMH: Past Medical History: Diagnosis Date ??? Diabetes mellitus ([facility]) Type 2 ??? Hypothyroid ??? Migraine PSH: Past Surgical History: Procedure Laterality Date ??? ELBOW SURGERY 6 surgeries on R elbow ??? HYSTERECTOMY Complete ??? SHOULDER SURGERY L for a fracture and cartiledge removal; R for cartiledge removal ??? TONSILLECTOMY Meds: Current Facility-Administered Medications: ??? propOFol (DIPRIVAN) 10 mg/mL injection, , , , Current Outpatient Medications: ??? aspirin chewable 81 mg tablet, Take 81 mg by mouth daily., Disp: , Rfl: ??? calcium carbonate (CALCIUM 600 ORAL), Take 600 mg by mouth., Disp: , Rfl: ??? cyclobenzaprine (FLEXERIL) 10 mg tablet, Take 5 mg by mouth 3 times daily as needed for Muscle Spasms., Disp: , Rfl: ??? glyBURIDE (DIABETA) 5 mg tablet, Take 20 mg by mouth daily with breakfast., Disp: , Rfl: ??? hydrOXYzine (ATARAX) 25 mg tablet, Take 50 mg by mouth 2 times daily as needed (Migraines)., Disp: , Rfl: ??? insulin glargine (LANTUS SOLOSTAR) 100 unit/mL (3 mL) injection pen, Inject 25 Units into the skin at bedtime., Disp: , Rfl: ??? levothyroxine (SYNTHROID) 50 mcg tablet, Take 50 mcg by mouth daily., Disp: , Rfl: ??? liraglutide (VICTOZA 3-LISANDRA) 0.6 mg/0.1 mL (18 mg/3 mL) injectable pen, Inject 1.2 mg into the skin daily., Disp: , Rfl: ??? losartan (COZAAR) 25 mg tablet, Take 25 mg by mouth at bedtime., Disp: , Rfl: ??? naproxen (NAPROSYN) 375 mg tablet, Take 375 mg by mouth 2 times daily., Disp: , Rfl: ??? sertraline (ZOLOFT) 50 mg tablet, Take 200 mg by mouth daily., Disp: , Rfl: ??? topiramate (TOPAMAX) 25 mg tablet, Take 50 mg by mouth 2 times daily., Disp: , Rfl: Allergies: Allergies Allergen Reactions ??? Erythromycin ??? Metformin Soc Hx: Social History Tobacco Use ??? Smoking status: Never Smoker ??? Smokeless tobacco: Never Used Substance Use Topics ??? Alcohol use: Not Currently Comment: A beer once in blue [place] ??? Drug use: Never - occupation: unemployed - lives in [facility] Hx: No family history on file. ROS: 10 pt review of systems was performed and is negative except as noted in HPI and below. Exam: Temp (24hrs), Av.2 ??C (97.2 ??F), Min:36.2 ??C (97.2 ??F), Max:36.2 ??C (97.2 ??F) Blood pressure (!) 108/98, pulse 82, temperature 36.2 ??C (97.2 ??F), temperature source Temporal, resp. rate 18, height 154.9 cm (61), weight 81.6 kg (180 lb), SpO2 98 %. Gen: Alert and Oriented X3, calm, cooperative Cardiac: RRR, Normal S1, S2 Respiratory: CTAB Extremity: LLE: Soft tissues: Obvious deformity, swollen Wrinkle sign: unable to wrinkle Tenderness: diffusely tender ROM: limited due to pain Vascular: DP faintly palp prereduction, strongly palp post reduction; cap refill brisk post reduction Sensation: light touch intact in DP/SP/Tib/Sural/Saphenous nn Motor: Wiggles toes, intact: EHL, FHL, TA, GS. High fibular tenderness: NTTP Imagin views views of left ankle: Demonstrates a left ankle fracture dislocation with a comminuted transverse fracture of the distal lateral malleolus. Dislocation posterior lateral of the talus compared to tibial plafond. Procedure: Informed consent obtained and documented. Conscious sedation with propofol provided by ED provider Closed reduction and immobilization with short leg posterior slab and U slab in standard fashion. Post-reduction exam: neurovascularly intact Post-reduction images show satisfactory alignment. Dr. Yo was the supervising emergency room physician and was present for the dupont and critical steps of the procedure Assessment: [id number] Jesenia Méndez 1960 Jesenia Méndez is a 60 y.o. female w/ a pmhx of DM2 (most recent A1C around 8), MDD, and migraines who sustained a closed SERIV left ankle fracture dislocation after a mechanical ground level s/p closed reduction and splinting in the ED. Will need follow up in the ortho trauma clinic Plan: - Reduced and splinted in ED - NWB - Elevate - follow up in Ortho Trauma clinic [phone]) in 1 week. - pain control per ED staff Discussed with ED provider Ace Sifuentes MD Orthopedic Surgery 23:51 01/11/21 [id number] documented in this encounter ED Notes * Yara Wylie RN - 01/12/2021 0110 EDT Pt discharged to cousin's home for the night with cousin driving. Pt alert, very happy to eat food,and reporting pain as minimal. Pt requesting crutches for mobility, also states that she has a wheelchair at home which will also be an option for her to get around. AVS printed, discharge instructions, NWB status for LLE and follow up reasons reviewed with pt. Pt verbalizes understanding, denies any questions. VS reassessed, pt able to pivot to WC on one leg with staff assist. Wheeled to front lobby where EMT assisted into private vehicle. * Yara Wylie RN - 01/12/2021 0040 EDT Orthopedic sedation performed with ED Attending, Orthopedic MD, RT, and manager company all present and Brittany RN administering medications, Kalyani BARBER documenting. When pt received Propofol monitor showed desaturation and decreased RR. Bag mask applied for a few breaths, and then just jaw thrust performed for airway and breathing support. Pt woke up appropriately, VSS, monitoring continued q 15 min per protocol. Cousin now at the bedside. Will continue to monitor. 12:55 Given water and tuna salad per pt request. Staying awake appropriately, ok with PO intake. * Curtis Yo MD - 01/12/2021 0022 EDTAssociated Order(s): Sedation DOS: 01/12/2021 Scribe Attestation: This documentation is [...] presents with ??? Ankle Injury Transfer from [facility] for orthopedic consult of dislocation/fracture of left ankle. CSMTs intact in distal toes. VSS. HPI Jesenia Méndez is a pleasant 60 y.o. female who presents to the ED as a transfer from [facility] today with a chief complaint of [...] consult note, the patient was taken to [facility] where two reductions were attempted but [...] Consent obtained: Verbal Consent given by: Patient Crittenden protocol: Procedure explained and questions answered to [...] Sedation: Propofol Intra-procedure monitoring: Blood pressure monitoring, time piece repairer, continuous pulse oximetry, continuous capnometry, frequent LOC [...] weight on it. She should follow-up with [facility]. Prior [...] at the end of my care: Stable documented in this encounter Plan of Treatment Not on file documented as of this encounter Procedures Procedure Name Priority Date/Time Associated Diagnosis Comments XR ANKLE LEFT 3 OR MORE VIEWS STAT 01/12/2021 0:40 EDT ED SEDATION PROCEDURE Routine 01/12/2021 0:22 EDT ED SEDATION PROCEDURE Routine 01/12/2021 0:22 EDT documented in this encounter Results * XR ANKLE LEFT 3 OR MORE VIEWS (01/12/2021 0:40 EDT) Anatomical Region Laterality Modality Lower Extremities, Ankle Left Compute d Radiography 01/12/2021 9:08 EDT Impressions 01/12/2021 9:08 EDT Findings/ Impression: Interval reduction of previously seen left ankle fracture dislocation with the alignment is now near anatomic. No new fractures identified. Evaluation of fine bony details limited due to overlying casting material. I have personally reviewed the images and the above interpretation and agree with the findings. Narrative 01/12/2021 9:08 EDT XR ANKLE LEFT 3 OR MORE VIEWS ??01/12/2021 12:20 AM Clinical History/Comments: S/p reduction Comparison: Outside left ankle radiographs on 01/11/2021. Technique: 3 views of the left ankle were obtained. Procedure Note Shubham Mercado MD - 01/12/2021 XR ANKLE LEFT 3 OR MORE VIEWS 01/12/2021 12:20 AM Clinical History/Comments: S/p reduction Comparison: Outside left ankle radiographs on 01/11/2021. Technique: 3 views of the left ankle were obtained. IMPRESSION Findings/ Impression: Interval reduction of previously seen left ankle fracture dislocation withthe alignment is now near anatomic. No new fractures identified.Evaluation of fine bony details limited due to overlying castingmaterial. I have personally reviewed the images and the above interpretation andagree with the findings. Curtis Yo MD IMG DIAGNOSTI C IMAGING ORDERABLES * HI MOD SED SAME PHYS/QHP INITIAL 15 MINS 5/> YRS, HC - MOD SED SAME PHYS/QHP INITIAL 15 MINS 5/> YRS (01/12/2021 0:22 EDT) Narrative [facility] EKG - 01/12/2021 0:22 EDT Curtis Yo MD ? 01/13/2021 ??8:32 Sedation Date/Time: 01/12/2021 0:41 Performed by: Curtis Yo MD Authorized by: Curtis Yo MD Consent: ??Consent obtained: ??Verbal ??Consent given by: ??Patient Crittenden protocol: ??Procedure explained and questions answered to patient or proxy's satisfaction: yes ?Required blood products, implants, devices, and special equipment available: yes ?Site/side marked: yes ?Immediately prior to procedure a time out was called: yes ?Patient identity confirmation method: ??Verbally with patient and arm band Indications: ??Procedure performed: ??Dislocation reduction ??Procedure necessitating sedation performed by: ??Physician performing sedation ??Intended level of sedation: ??Moderate (conscious sedation) Pre-sedation assessment: ??Neck mobility: normal ?Pre-sedation assessments completed and reviewed: airway patency, anesthesia/sedation history, cardiovascular function, hydration status, mental status, nausea/vomiting, pain level, respiratory function and temperature ?History of difficult intubation: no ?? Immediate pre-procedure details: ??Reassessment: Patient reassessed immediately prior to procedure ?Reviewed: vital signs, relevant labs/tests and NPO status ?Verified: bag valve mask available, emergency equipment available, intubation equipment available, IV patency confirmed, oxygen available, reversal medications available and suction available ?? Procedure details (see MAR for exact dosages): ??Sedation start time: ??01/12/2021 0:00 ??Sedation: ??Propofol ??Intra-procedure monitoring: ??Blood pressure monitoring, time piece repairer, continuous pulse oximetry, continuous capnometry, frequent LOC assessments and frequent vital sign checks ??Sedation end time: ??01/12/2021 0:20 ??Total sedation time (minutes): ??20 Post-procedure details: ??Attendance: Constant attendance by certified staff until patient recovered ?Recovery: Patient returned to pre-procedure baseline ?Estimated blood loss (see I/O flowsheets): no ?Post-sedation assessments completed and reviewed: airway patency, cardiovascular function, hydration status, mental status, nausea/vomiting, pain level, respiratory function and temperature ?Patient is stable for discharge or admission: yes ?Patient tolerance: ??Tolerated well, no immediate complications Comments: ?? I personally spent 20 minutes in continuous [...] dupont and critical portions of the procedure. Curtis Yo MD PROCEDURE/MIN OR SURGICAL ORDERABLES [facility] EKG documented in this encounter Visit Diagnoses Diagnosis Closed fracture dislocation of left ankle, initial encounter- Primary documented in this encounter Administered Medications Inactive Administered Medications - up to 3 most recent administrations Medication Order MAR Action Action Date Dose Rate Site propOFol (DIPRIVAN) 10 mg/mL injection 1 dose, Starting on 01/11/21 at 2345, Until 01/12/21 at 0000 propOFol (DIPRIVAN) injection 100 mg 100 mg, intravenous, NOW X1, 1 dose, On Tue01/12/21 at 0245, STAT Given 01/12/2021 0:00 EDT 100 mg documented in this encounter Historical Medications * This list may reflect changes made after this encounter. Medication Sig Dispensed Refills Start Date End Date naproxen (NAPROSYN) 375 mg tabletIndications:headache disorder Take 375 mg by mouth 2 times daily. topiramate (TOPAMAX) 25 mg tabletIndications:migraine prevention Take 50 mg by mouth 2 times daily. losartan (COZAAR) 25 mg tablet Take 25 mg by mouth at bedtime. insulin glargine (LANTUS SOLOSTAR) 100 unit/mL (3 mL) injection pen Inject 25 Units into the skin at bedtime. levothyroxine (SYNTHROID) 50 mcg tablet Take 50 mcg by mouth daily. hydrOXYzine (ATARAX) 25 mg tablet Take 50 mg by mouth 2 times daily as needed (Migraines). calcium carbonate (CALCIUM 600 ORAL)Indications:With Vit D Take 600 mg by mouth daily. aspirin chewable 81 mg tablet Take 81 mg by mouth daily. liraglutide (VICTOZA 3-LISANDRA) 0.6 mg/0.1 mL (18 mg/3 mL) injectable pen Inject 1.2 mg into the skin daily. glyBURIDE (DIABETA) 5 mg tablet Take 20 mg by mouth daily with breakfast. cyclobenzaprine (FLEXERIL) 10 mg tablet Take 5 mg by mouth 3 times daily as needed for Muscle Spasms. sertraline (ZOLOFT) 50 mg tablet Take 200 mg by mouth daily. added in this encounter Active and Recently Administered Medications Times are shown in EDT. Scheduled Medication Order 01/10/2021 01/11/2021 01/12/2021 propOFol (DIPRIVAN) injection 100 mg 100 mg, intravenous, NOW X1, 1 dose, On Tue01/12/21 at 0245, STAT 0000 (Given - Provid er: Yara Wylie RN - Comment: Given in incramental doses throughout ED Sedation with MD oY at bedside. See flowsheet for dosing.) No Frequency Medication Order 01/10/2021 01/11/2021 01/12/2021 propOFol (DIPRIVAN) 10 mg/mL injection 1 dose, Starting on 01/11/21 at 2345, Until Tue01/12/21 at 0000 documented in this encounter Care Teams Supervisor [employer] Relationship Specialty Start Date End Date Maryuri Evans MD [address] [place] [address] PCP - General 01/11/21 documented as of this encounter
--- OUTSIDE RECORDS SUMMARY | 2024-05-31 17:51 | XMS_ITS | Encounter Summary ---
Author Organization [facility] Address [address] [place] [address] Care Team Providers Care Refueler Name Role Phone Maryuri Evans MD Primary Care Provider [phone] Encounter Details Date Type Department Care Team (Late st Contact Info) Description 01/11/2021 Results Only Imaging [facility] Radiology Results [address] [place] [address] Clementina Luna PA-C [address] [place] [address] Social History Tobacco Use Types Packs/Day Years Used Date Smoking Tobacco: Never Smokeless Tobacco: Never Alcohol Use Standard Drinks/Week Comments Not Currently 0 (1 standard drink = 0.6 oz pur e alcohol) A beer once in blue [place] Interpersonal Safety Answer Date Record ed Physically [...] XR ANKLE LEFT 3 OR MORE VIEWS 01/11/2021 17:28 EDT documented in this encounter Results * XR ANKLE LEFT 3 OR MORE VIEWS (01/11/2021 17:28 EDT) Anatomical Region Laterality Modality Lower Extremities, Ankle Left Compute d Radiography 01/11/2021 17:2 8 EDT Narrative 01/11/2021 17:28 EDT ?UVN: [facility] ?[address] ?[place], [place] [address] ?Diagnostic Imaging Report ? Signed ? Patient Name:MÉNDEZ,JESENIA S ? Date of :1960 ?MR Number:[id number] ? Age:60 ?Sex:F ? Category: CR ?Date of Exam:01/11/21 ? Procedure: CR: Ankle, LT; 3+ views ? Ordering Physician: Clementina Luna PA-C ?Patient ? CC: ?? Provider, Optional ?? Clementina Luna PA-C ? PROCEDURE INFORMATION: ?? Exam: XR Left Ankle ?? Exam date and time: 01/11/2021 5:28 PM ?? Age: 60 years old ?? Clinical indication: Injury or trauma; Fall; Swelling (edema); Ankle; Left ? TECHNIQUE: ?? Imaging protocol: XR Left ankle. ?? Views: 3 or more views. ? COMPARISON: ?? No relevant prior studies available. ? FINDINGS: ?? Bones/joints: Posterior dislocation of the talus. Fracture posterior and ?? lateral malleoli, displaced posteriorly. Nondisplaced fracture medial ?? malleolus. Plantar calcaneal spur. ?? Soft tissues: Soft tissue swelling at the ankle. ? IMPRESSION: ?? Posterior fracture dislocation at the ankle. ? Report signed by: Sean Diaz On 01/11/2021 ??18:56:50 ?? For any questions regarding this report, please contact the [facility] at [phone] ? Dictated by: Sean Diaz MD ?D/ 1728 ? Transcribed by: RENAY ?D/T: ? E-Signed by: Sean Diaz MD ?D/ 1856 ?? Procedure Note Sean Diaz MD - 01/11/2021 UVN: [place] [address] Diagnostic Imaging Report Signed Patient Name:JESENIA MÉNDEZ Number:[id number] Date of :1960 MRNumber:[id number] Age:60 Sex:F Category: CR Date ofExam:01/11/21 Procedure: CR: Ankle, LT; 3+ viewsAccession: [id number] Ordering Physician: Clementina Luna PA-C Patient CC: Provider, Optional Clementina Luna PA-C PROCEDURE INFORMATION: Exam: XR Left Ankle Exam date and time: 01/11/2021 5:28 PM Age: 60 years old Clinical indication: Injury or trauma; Fall; Swelling (edema); Ankle;Left TECHNIQUE: Imaging protocol: XR Left ankle. Views: 3 or more views. COMPARISON: No relevant prior studies available. FINDINGS: Bones/joints: Posterior dislocation of the talus. Fracture posterior and lateral malleoli, displaced posteriorly. Nondisplaced fracture medial malleolus. Plantar calcaneal spur. Soft tissues: Soft tissue swelling at the ankle. IMPRESSION: Posterior fracture dislocation at the ankle. Report signed by: Sean Diaz On 01/11/2021 18:56:50 For any questions regarding this report, please contact the [facility] [place] at [phone] Dictated by: Sean Diaz MDD/ 1728 Transcribed by: PERLA/T: E-Signed by: Sean Diaz MDD/ 2488 Clementina Luna PA-C IMG DIAGNOSTIC IM AGING ORDERABLES documented in this encounter Visit Diagnoses Not on filedocumented in this encounter Care Teams Refueler Relationship Specialty Start Date End Date Maryuri Evans MD [address] [place] [id number] PCP - General 01/11/21 documented as of this encounter
--- OUTSIDE RECORDS SUMMARY | 2024-05-31 17:51 | XMS_ITS | Encounter Summary ---
Author Organization [facility] Address [address] [place] [address] Care Team Providers Care Patient Educator Name Role Phone Maryuri Evans MD Primary Care Provider [phone] Encounter Details Date Type Department Care Team (Late st Contact Info) Description 01/20/2021 Prep for Procedure [facility] Orthopedic Trauma - [address] [address] Mable Jones RN Social History [...] No 01/13/2021 documented as of this encounter H&P Notes * William Donald MD - 01/20/2021 1252 EDT documented in this encounter Plan of Treatment Not on file documented as of this encounter Visit Diagnoses Not on filedocumented in this encounter Care Teams Patient Educator Relationship Specialty Start Date End Date Maryuri Evans MD [address] [place] [address] PCP - General 01/11/21 documented as of this encounter
--- OUTSIDE RECORDS SUMMARY | 2024-05-31 17:51 | XMS_ITS | Encounter Summary ---
Author Organization [facility] Address [address] [place] [address] Care Team Providers Care Survey Data Technician Name Role Phone Maryuri Evans MD Primary Care Provider [phone] Encounter Details Date Type Department Care Team (Late st Contact Info) Description 01/17/2021 Results Only [facility] Orthopedic Trauma - [address] [address] William Donald MD [address] [place] [phone] Social History Tobacco Use Types Packs/Day [...] Procedure Name Priority Date/Time Associated Diagnosis Comments HEMOGLOBIN A1C Routine 01/17/2021 10:47 EDT documented in this encounter Results * (ABNORMAL) HEMOGLOBIN A1C (01/17/2021 10:47 EDT) Hemoglobin A1c 6.9(H) <5.7 % 01/19/2021 9:07 EDT [facility] Comment: <5.7% ? Normal 5.7 - 6.4% ?Prediabetes =>6.5% ?Diagnostic for diabetes Goals for glycemic control in diabetics (ADA 2017): <7.0% Target for non adults with diabetes More or less stringent targets may be appropriate for individual patients <7.5% ?Target for children and adolescents with ? type 1 diabetes EAG - PMC 151 70 - 180 mg/dL 01/19/2021 8:47 EDT [facility] 01/17/2021 10:4 7 EDT 01/17/2021 11:10 EDT William Donald MD CHEMISTRY & BLOO D GAS ORDERABLES Performing Organization Address City/State/[facility] Co de Phone Number [facility] [address] [place] [address] documented in this encounter Visit Diagnoses Not on filedocumented in this encounter Care Teams Survey Data Technician Relationship Specialty Start Date End Date Maryuri Evans MD [address] [place] [address] PCP - General 01/11/21 documented as of this encounter
--- OUTSIDE RECORDS SUMMARY | 2024-05-31 17:51 | XMS_ITS | Encounter Summary ---
Author Organization [facility] Address [address] [place] [address] Care Team Providers Care Chief Commercial Officer Name Role Phone Maryuri Evans MD Primary Care Provider [phone] Encounter Details Date Type Department Care Team (Latest Contact Info) Description 01/16/2021 15:20 EDT - 01/16/2021 23:59 EDT Hospital Encounter [facility] Pre-Surgical Testing [address] [place] [address] [id number] Discharge Disposition: Home or Self Care Social [...] - - Weight 83 kg (183 lb) 01/16/2021 1605 EDT Height 154.9 cm (5' 1) 01/16/2021 1605 EDT Body Mass Index 34.58 01/16/2021 1605 EDT documented in this encounter Functional Status [...] or Self Care documented in this encounter OR Notes * Preprocedure Instructions - Shantal Diane RN - 01/16/2021 1520 EDT Jesenia Méndez has been instructed as follows regarding medication administration for the day of the scheduled procedure. Date of Surgery: 01/22/21 Instructions for Taking Medications Day of Surgery Medication Sig Last Dose Hold DOS Take DOS aspirin chewable 81 mg tablet Take 81 mg by mouth daily. X calcium carbonate (CALCIUM 600 ORAL) Take 600 mg by mouth daily. 01/16/21 cyclobenzaprine (FLEXERIL) 10 mg tablet Take 5 mg by mouth 3 times daily as needed for Muscle Spasms. X glyBURIDE (DIABETA) 5 mg tablet Take 20 mg by mouth daily with breakfast. X HYDROcodone-acetaminophen (NORCO) 5-325 mg tablet Take 1 Tab by mouth at bedtime. Daily Max: 1 Tab X hydrOXYzine (ATARAX) 25 mg tablet Take 50 mg by mouth 2 times daily as needed (Migraines). X insulin glargine (LANTUS SOLOSTAR) 100 unit/mL (3 mL) injection pen Inject 25 Units into the skin at bedtime. 20 units night before surgery levothyroxine (SYNTHROID) 50 mcg tablet Take 50 mcg by mouth daily. X liraglutide (VICTOZA 3-LISANDRA) 0.6 mg/0.1 mL (18 mg/3 mL) injectable pen Inject 1.2 mg into the skin daily. Patient will call prescribing provider, MD Evans for instructions X losartan (COZAAR) 25 mg tablet Take 25 mg by mouth at bedtime. 01/20/21 naproxen (NAPROSYN) 375 mg tablet Take 375 mg by mouth 2 times daily. 01/19/21 sertraline (ZOLOFT) 50 mg tablet Take 200 mg by mouth daily. X topiramate (TOPAMAX) 25 mg tablet Take 50 mg by mouth 2 times daily. X PAT completed with patient. She denies high blood pressure and will discuss reason she is taking losartan with MD Evans and instructions for Victoza prior to surgery. * OR PreOp - Shantal Diane RN - 01/16/2021 1520 EDT COVID 19 Screening Perioperative at time of PAT Please document by exception (only check those that apply). Have you had any of the following symptoms recently? Yes Chronic ? Cough Shortness of breath or difficulty breathing Fever Chills Fatigue Muscle or body aches X due to injury Severe Headache New loss of taste or smell Sore throat Congestion or runny nose Rash Nausea, vomiting, or diarrhea (rare in adults. More common in children) Have you been in close contact with someone who has been diagnosed with Covid 19? No (close contact, within 6 feet of any person known to have Coronavirus in the past 14 days) If patient develops any of these symptoms between now and their surgery date instruct them to call us back at [phone] to report symptoms (If patient is in Surgical Admissions and answers yes, please notify Surgery and Anesthesia team). Follow proper precautions- yellow mask to patient/family. Visitor Policy: -Surgical/Procedural Patients: ??? 1 healthy support person for patients arriving for any procedure requiring sedation, vaccine not required ??? Pediatrics: PreOp may allow 2 parents/guardians, PACU may allow 1 parent/guardians -Inpatient Adult: ??? 1 healthy, vaccinated (fully vaccinated, 2 weeks post vaccination) support person per day, 5am-9pm ??? No visitors permitted if patient is COVID+ or PUI ??? Patients with communication needs (i.e., persons who are deaf or who do not understand/speak Arabic) or a cognitive impairment are permitted 1 healthy support person per day regardless of vaccination status. ??? No overnight visitors, other than for limited exceptions, such as patients with communication or other special needs (such as for those patients who are deaf or who do not understand or speak Arabic and those with cognitive impairments). ??? Inpatient visitors must check in at Information desk in the [facility], level 3. Visitor will be askedto show vaccination proof and will receive a sticker that will allow access to inpatient units. -Inpatient Pediatrics: ??? 2 healthy parents/guardians: 5am- 9 pm ??? 1 healthy parent/guardian permitted overnight: 9pm- 5am documented in this encounter Plan of Treatment Not on file documented as of this encounter Visit Diagnoses Not on filedocumented in this encounter Care Teams Chief Commercial Officer Relationship Specialty Start Date End Date Maryuri Evans MD [address] [place] [address] PCP - General 01/11/21 documented as of this encounter
--- OUTSIDE RECORDS SUMMARY | 2024-05-31 17:51 | XMS_ITS | Encounter Summary ---
Author Organization [facility] Address [address] [place] [address] Care Team Providers Care Consumer Marketing Analyst Name Role Phone Maryuri Evans MD Primary Care Provider [phone] Reason for Visit * Reason Onset Date Comments COVID-19 01/13/2021 Encounter Details Date Type Department Care Team (Late st Contact Info) Description 01/13/[address] [facility] [address] [place] [address] William Donald MD [address] [place] [phone] COVID-19 Social History Tobacco Use Types Packs/Day Years [...] encounter Miscellaneous Notes * Telephone Encounter - Kelly Osman - 01/13/2021 1442 EDT Called patient to schedule COVID-19 testing. Requested a call back @[phone]. This is our 1st attempt at contacting the patient. documented in this encounter Plan of Treatment Not on file documented as of this encounter Visit Diagnoses Not on filedocumented in this encounter Care Teams Consumer Marketing Analyst Relationship Specialty Start Date End Date Maryuri Evans MD [address] [place] [address] PCP - General 01/11/21 documented as of this encounter
--- OUTSIDE RECORDS SUMMARY | 2024-05-31 17:51 | XMS_ITS | Encounter Summary ---
Author Organization [facility] Address [address] [place] [address] Care Team Providers Care Laundry Superintendent Name Role Phone Maryuri Evans MD Primary Care Provider [phone] Reason for Visit * (Routine) - Receiving Office to Obtain Authorization Specialty Diagnoses / Procedures Referred By Conthyun t Referred To Contact Procedures XR OUTSIDE IMAGES MSK Unknown, Provider, Referral ID Status Reason Start Date Expiration Date Visits Requested Visits Authorized [id number] Receiving Office to Obtain Authorization 01/11/2021 1 1 Encounter Details Date Type Department Care Team (Latest Contact Info) Description 01/11/2021 19:56 EDT - 01/11/2021 22:38 EDT Hospital Encounter [facility] [place] Discharge Disposition: Home or Self Care Social [...] or suspected to have Coronavirus / COVID-19? Unable to assess 01/11/2021 20:44 EDT documented as of this encounter Discharge Disposition Disposition Code Departure Means Destination Home or Self Care documented in this encounter Plan of Treatment Not on file documented as of this encounter Procedures Procedure Name Priority Date/Time Associated Diagnosis Comments XR OUTSIDE IMAGES MSK Routine 01/11/2021 19:56 EDT documented in this encounter Results * XR OUTSIDE IMAGES MSK (01/11/2021 19:56 EDT) Narrative 01/11/2021 19:56 EDT This is a non-reportable exam. Provider Unknown MD SMITH OTHER IMAGING OR DERABLES documented in this encounter Visit Diagnoses Not on filedocumented in this encounter Care Teams Laundry Superintendent Relationship Specialty Start Date End Date Maryuri Evans MD [address] [place] [address] PCP - General 01/11/21 documented as of this encounter
--- OUTSIDE RECORDS SUMMARY | 2024-05-31 17:51 | XMS_ITS | Encounter Summary ---
Author Organization [facility] Address [address] [place] [address] Care Team Providers Care Medication Nurse Name Role Phone Maryuri Evans MD Primary Care Provider [phone] Reason for Visit * Reason Onset Date Comments Other 01/20/2021 Encounter Details Date Type Department Care Team (Late st Contact Info) Description 01/20/2021 Telephone [facility] Orthopedic Trauma - [address] [address] Mable Jones, SUNIL Other Social [...] Telephone Encounter - Mable Jones RN - 01/20/2021 0982 EDT Patient was contacted w/ preop information. Patient [place] [facility] [place] to eat or drink after midnight, to take Tylenol as per protocol, no makeup/jewelry/nailpolish/perfumes, to shower the night before and morning of surgery with an antibacterial soap, to wear appropriate attire (baggy, loose fitting, etc), to leave all valuables at home and to bring DME. Patient was told to follow instructions as noted on their sheet What to expect as an outpatient patient.Post op visit is 6.15 @1400. Patient denies any illness/infection at this time. Patient verbalized understanding of instructions. Recent A1C came back at 6.9 documented in this encounter Plan of Treatment Not on file documented as of this encounter Visit Diagnoses Not on filedocumented in this encounter Care Teams Medication Nurse Relationship Specialty Start Date End Date Maryuri Evans MD [address] [place] [address] PCP - General 01/11/21 documented as of this encounter
--- OUTSIDE RECORDS SUMMARY | 2024-05-31 17:51 | XMS_ITS | Encounter Summary ---
Author Organization [facility] Address [address] [place] [address] Care Team Providers Care Endocrinology Specialist Name Role Phone Maryuri Evans MD Primary Care Provider [phone] Encounter Details Date Type Department Care Team (Latest Contact Info) Description 01/18/2021 14:35 EDT Phlebotomy Only [facility] - [employer] [address] [place] [address] Closed fracture of left ankle with routine healing, subsequent encounter Social History [...] Priority Date/Time Associated Diagnosis Comments ZZCOVID-19 TEST [facility] PCR Today 01/18/2021 14:25 EDT Closed fracture of left ankle with routine healing, subsequent encounter COVID-19 TESTING Routine 01/18/2021 14:2 5 EDT Closed fracture of left ankle with routine healing, subsequent encounter documented in this encounter Results * COVID-19 TEST [facility] PCR (01/18/2021 14:25 EDT) Swab ENTIRE NASOPHARYNX / Unknown Swab / Unknown 01/18/2021 14:25 EDT 01/18/2021 14:25 EDT William Donald MD MICROBIOLOGY - G ENERAL ORDERABLES [facility] [address] [place] [address] * COVID-19 TESTING (01/18/2021 14:25 EDT) COVID-19 rt-PCR Result Negative Negative 01/20/2021 12:13 EDT [facility] Comment: This test has [...] clinical observations, patient history, and epidemiological information. Performed on the [employer] Realtime Fusion instrument Performing Lab [place] [facility] 01/20/2021 12:13 EDT [facility] Swab ENTIRE NASOPHARYNX / Unknown Swab / Unknown 01/18/2021 14:25 EDT 01/18/2021 14:25 EDT William Donald MD MICROBIOLOGY - G ENERAL ORDERABLES [facility] [address] [place] [address] documented in this encounter Visit Diagnoses Diagnosis Closed fracture of left ankle with routine healing, subsequent encounter documented in this encounter Care Teams Endocrinology Specialist Relationship Specialty Start Date End Date Maryuri Evans MD [address] [place] [address] PCP - General 01/11/21 documented as of this encounter
--- OUTSIDE RECORDS SUMMARY | 2024-05-31 17:51 | XMS_ITS | Encounter Summary ---
Author Organization [facility] Address [address] [place] [address] Care Team Providers Care Top Dyeing Machine Loader Name Role Phone Maryuri Evans MD Primary Care Provider [phone] Encounter Details Date Type Department Care Team (Late st Contact Info) Description 01/11/2021 Results Only [facility] [address] [place] [address] Jia Haro MD [address] [place] [address] Social History Tobacco Use Types [...] Priority Date/Time Associated Diagnosis Comments POCT GLUCOSE (NURSING) - [facility] Routine 01/11/2021 20:12 EDT documented in this encounter Results * POCT GLUCOSE (NURSING) - [facility] (01/11/2021 20:12 EDT) POC CAPILLARY GLUCOSE - [facility] 84 70 - 100 mg/dL 01/11/2021 20:13 EDT [facility] 01/11/2021 20:1 2 EDT 01/11/2021 20:13 EDT Jia Haro MD POINT OF CARE TEST ORDERABLES [facility] [address] [place] [address] documented in this encounter Visit Diagnoses Not on filedocumented in this encounter Care Teams Top Dyeing Machine Loader Relationship Specialty Start Date End Date Maryuri Evans MD [address] [place] [address] PCP - General 01/11/21 documented as of this encounter
--- OUTSIDE RECORDS SUMMARY | 2024-05-31 17:51 | XMS_ITS | Encounter Summary ---
Author Organization [facility] Address [address] [place] [address] Care Team Providers Care Store Coordinator Name Role Phone Maryuri Evans MD Primary Care Provider [phone] Reason for Referral * Radiology Services (Routine/Next Available) - Closed Specialty Diagnoses / Procedures Referred By Keith yung Referred To Contact Diagnoses Closed fracture of left ankle with routine healing, subsequent encounter Procedures XR ANKLE LEFT 3 OR MORE VIEWS William Donald MD [address] [place] [id number] Referral ID Status Reason Start Date Expiration Date Visits Re quested Visits Authorized [id number] Closed 01/13/2021 1 1 Reason for Visit * Reason Comments New Patient Visit Left ankle fx DOI * Consult (3 - 10 Business Days) - Order Cancelled Specialty Diagnoses / Procedures Referred By Keith yung Referred To Contact Orthopedic Surgery Diagnoses Closed fracture dislocation of left ankle, initial encounter Curtis Yo MD [address] [facility], [address] [place] [address] [facility] [address] [place] [address] Referral ID Status Reason Start Date Expiration Date Visits Requested Visits Authorized [id number] Order Cancelled Specialty Services Required 01/12/2021 1 1 Encounter Details Date Type Department Care Team (Late st Contact Info) Description 01/13/2021 11:00 EDT Office Visit [facility] Orthopedic Trauma - [facility] [address] [place] [address] William Donald MD [address] [place] [address] Closed fracture of left ankle with routine healing, subsequent encounter (Primary Dx) [...] Dispensed Refills Start Date End Da te HYDROcodone-acetaminophen (NORCO) 5-325 mg tablet Take 1 Tab by mouth at bedtime. Daily Max: 1 Tab 9 Tab 01/13/2021 01/21/2021 documented in this encounter Progress Notes * Mable Jones RN - 01/13/2021 1100 EDT Patient Education Topic: surgery Method: Handout and Verbal Taught to: Patient Barriers: None Outcomes: verbalized understanding Spoke at length with Jesenia about what to expect after surgery. She is aware that they will need a recycler forklift driver truck driver to and from surgery. She was given the Tylenol protocol. No h/o bleeding or blood clotting disorders. No prior issues with anesthesia. All meds, allergies and medical history updated. Signed consent today for a ORIF ankle. She has crutches and will bring it the day of surgery. Aware of fasting guidelines and that they will need a pre Op H&P completed within 30 days of date of surgery. She will follow the what to expect as a surgical out patient. Patient Education items provided at today's visit: - Pre-op Physical Packet - Patient Worksheet for pre-op phone call - Dept. Of Anesthesia Consent Form (copy) -What to expect as an outpatient surgical patient -Fasting Guidelines -Tylenol Protocol -Pre-procedure COVID-19 testing and self-quarantine protocols were discussed with the patient, along with facility-wide measures intended to mitigate any risk of COVID-19 transmission. All questions pertaining to testing and mitigation measures were answered, and the patient agreed to proceed. * William Donald MD - 01/13/[address] Donald dictating a note on Jesenia Méndez. I saw Ms. Méndez in the office on January 13 and am dictating this on January 20. This was a new patient visit which on the day of her visit required 60 minutes of my time if not more this time was spent examining the patient talking with her discussing the risks and benefits coordinating her surgical plan including the concerns for her diabetes that she had an elevated A1c. I evaluated Dr. Ace Alvares's orthopedic note from the emergency room on January 11 his note confirmed that she has a past medicalhistory of diabetes type 2 most recent A1c around 8 MDD and migraines who presented to the emergency room as a transfer from [facility] with a left ankle fracture dislocation this occurred at 4:30 in the afternoon when she was walk around the corner of her cousin's camper and she slipped and fell and landed on her left ankle. She was taken to [place] where 2 reductions were attempted but unsuccessful so she was sent to our emergency room for further management. I reviewed the rest of Dr. Sifuentes's note he performed a reduction with conscious sedation and propofol I reviewed her office intake sheet last week as well she is 5 foot 1 inch 183 pounds she has allergies to Metformin and erythromycin I believe but that did not mention these effects although in the prism area she notes nauseaand vomiting with Metformin. She is on Zoloft glimepiride cyclobenzaprine according to her office intake sheet but when I reviewed her prism record it also mentions insulin levothyroxine and other medications her review of 14 systems was positive for excessive fatigue unexpected weight loss wearingglasses her fracture joint swelling numbness and osteoporosis her history of diabetes depression and headaches she previously had left shoulder surgery in 2003 hysterectomy in 1999 and right elbow surgery 2017 she does not smoke or drink. On physical exam she had moderate edema around the ankle andfoot but she was tender she was comfortable I can flex and extend her toes actively and passively without pain she is well-groomed well-developed woman appeared her stated age her BMI is elevated andrecorded at 34.6 she had grossly intact sensation to light touch around her toes digits were pink and warm her x-rays were reviewed by me these show an ankle fracture dislocation on January 11 with And appropriate reduction after midnight on January 12. She has a distal fibula fracture and a posterior malleolus fracture that looks like it extends over and include some of the medial malleolus. The medial malleoli component is minimally at this nondisplaced the posterior malleolus is relatively small based on the lateral views. Risks and benefits of surgery were discussed the patient including but not limited to infection neurovascular injury wound healing problems. She is likely too swollen for surgery at this point we will schedule her for the following week she will also need to get her hemoglobin A1c rechecked as an aside it was rechecked on January 19 of the new lab is 6.9. We also obtained new x-rays on the to make sure that she was maintaining her reduction in these x-rays show acceptable position and alignment of the fracture with a reduced ankle mortise. This patient is is at risk for having a catastrophic infection and other complications related to her diabetes but this is not afracture would do well treated in a cast as it would have a high risk of slipping back out and failing nonoperative care. This note was dictated using [employer] - please excuse any misspellings, grammatical issues, or other errors related to voice recognition. These notes are not always reviewed. documented in this encounter Plan of Treatment Not on file documented as of this encounter Results * COVID-19 TESTING (01/18/2021 14:25 EDT) COVID-19 rt-PCR Result Negative Negative 01/20/2021 12:13 EDT [facility] Comment: This test has not [...] history, and epidemiological information. Performed on the [employer] Fusion instrument Performing Lab [place] [facility] 01/20/2021 12:13 EDT [facility] Swab ENTIRE NASOPHARYNX / Unknown Swab / Unknown 01/18/2021 14:25 EDT 01/18/2021 14:25 EDT William Donald MD MICROBIOLOGY - G ENERAL ORDERABLES [facility] [address] [place] [address] * XR ANKLE LEFT 3 OR MORE [...] of left ankle with routine healing, subsequent encounter- Primary Closed fracture of left ankle with routine healing, subsequent encounter documented in this encounter Care Teams Store Coordinator Relationship Specialty Start Date End Date Maryuri Evans MD [address] [place] [address] PCP - General 01/11/21 documented as of this encounter
[2024-05-31 19:30] LABS: BUN 16 mg/dL (7-18); CREATININE 0.9 mg/dL (0.55-1.02); Calcium 8.9 mg/dL (8.5-10.1); Calculated LDL 41 mg/dL (<100); Chloride 109 mmol/L (98-107); Cholesterol 111 mg/dL (<200); Estimated GFR 72.28 (mL/min/1.73m2); Glucose 189 mg/dL (74-106); HDL Cholesterol 65 mg/dL (40-60); Potassium 4.2 mmol/L (3.5-5.1); Sodium 145 mmol/L (136-145); TSH (W/Ref FT4) 2.34 uIU/mL (0.36-3.74); Triglyceride 26 mg/dL (<150)
== END 2024-05-31 17:31 | disposition home or self-care (01) ==
LOC: NCHCN 17:30
PROVIDERS: PCP Family Medicine; Visit Provider Family Medicine
DX: I10 Essential (primary) hypertension (principal)
CPT/HCPCS: 80048; 80061; 84443